=== PATIENT | male | born 1950 | race American Indian/Alaskan Native ===

== ENCOUNTER 2020-10-23 12:23 | Inpatient (IN) | payer MEDICARE ==
[2020-10-23] MEDS ORDERED: ASPIRIN 81 MG TAB CHEW PO ONE (13:13)
--- NOTE | 2020-10-23 13:18 | Event Note ---
ED Screening Note Date of service: 10/23/20 Time: 13:15 ED Screening Note: 70-year-old male patient with history of hypertension presents to the emergency department with complaints of chest pain for 2 days with associated dyspnea this morning followed by a syncopal episode. Patient states the chest pain is intermittent, lasts for few minutes at a time, and does not seem related to exertion. Patient called his primary care provider this morning, who recommended he come to the emergency department for further evaluation. General: Awake, appropriately interactive, no acute distress. Neck: Supple. Full range of motion intact. Cardiovascular: Normal peripheral perfusion. Pulmonary: No respiratory distress. Patient is speaking normally without use of accessory muscles. Skin: No apparent rashes or lesions. Neurological: No facial asymmetry. Speech is clear. Follows commands. Patient is alert and oriented. Musculoskeletal: Moves all four extremities spontaneously with normal range of motion. Psych: Cooperative. Appropriate mood and affect. Abnormal EKG without prior tracing for comparison -- cardiac work-up initiated I have greeted and performed a focused rapid initial assessment of this patient. A comprehensive ED assessment and evaluation of the patient, analysis of all test results, and completion of the medical decision-making process will be conducted by additional ED providers. This initial assessment/diagnostic orders/clinical plan/treatment(s) is/are subject to change based on patients health status, clinical progression and re-assessment. Further treatment and workup at subsequent clinical provider's discretion. Patient/guardian urged not to elope from the ED as their condition may be serious if not clinically assessed and managed.
--- NOTE | 2020-10-23 13:40 | XRay Report ---
CHEST 2 VIEWS INDICATION / CLINICAL INFORMATION: chest pain. COMPARISON: None available. FINDINGS: SUPPORT DEVICES: None. HEART / MEDIASTINUM: No significant abnormality. LUNGS / PLEURA: Diffuse bilateral pulmonary opacities are noted. Bilateral effusions right greater th an left No pneumothorax. Signer Name: Brett Hicks MD Signed: 10/23/2020 1:35 PM Workstation Name: [id number]
[2020-10-23 14:20] LABS: Basophils % (Auto) 0.7 % (0.0-1.8); Eosinophils # (Auto) 0.1 K/mm3 (0.0-0.4); Eosinophils % (Auto) 1.6 % (0.0-4.3); Hematocrit 42.7 % (35.5-45.6); Hemoglobin 14.3 gm/dl (11.8-15.2); Lymphocytes # (Auto) 1.5 K/mm3 (1.2-5.4); Lymphocytes % (Auto) 27.8 % (13.4-35.0); Mean Corpuscular HGB Conc 34 % (32-34); Mean Corpuscular Volume 85 fl (84-94); Monocytes # (Auto) 0.3 K/mm3 (0.0-0.8); Platelet Count 237 K/mm3 (140-440); Red Cell Distribution Width 13.8 % (13.2-15.2)
[2020-10-23 14:30] LABS: INR 1.01 (0.87-1.13)
[2020-10-23 14:31] LABS: Partial Thromboplastin Time 29.9 Sec. (24.2-36.6)
[2020-10-23 14:32] LABS: Alanine Aminotransferase 13 units/L (7-56); Albumin 4.1 g/dL (3.9-5); BUN/Creatinine Ratio 12; Blood Urea Nitrogen 14 mg/dL (9-20); Calcium 9.3 mg/dL (8.4-10.2); Hemolysis Index 4
--- NOTE | 2020-10-23 17:27 | Cat Scan Report ---
CT HEAD WITHOUT CONTRAST INDICATION / CLINICAL INFORMATION: CODE STROKE PROTOCOL!! Pt complains of RT sided weakness. TECHNIQUE: All CT scans at this location are performed using CT dose reduction for ALARA by means of automated e xposure control. COMPARISON: None available. FINDINGS: There is no acute intracranial hemorrhage. Ventricles are normal in size without midline shift or mas s effect. There is some periventricular areas of low-attenuation most significant surrounding the occ ipital horns right greater than left however nonspecific and of uncertain age. ADDITIONAL FINDINGS: None. IMPRESSION: 1. No acute findings are definitely seen. There are periventricular areas of low-attenuation suggesti ng nonspecific white matter change. There is concern for acute ischemic change MRI with diffusion cou ld be performed. CODE STROKE: Time of Communication (ASH KIER BOILER/CDT): 420 Licensed Practitioner Receiving Report: Dr Calderon Signer Name: Brett Hicks MD Signed: 10/23/2020 5:23 PM Workstation Name: [id number]
[2020-10-23] MEDS ORDERED: FUROSEMIDE 40 MG/4 ML INJ IV ONE ×2 (18:09→21:30)
[2020-10-23] MEDS ORDERED: IPRATROPIUM 0.02% NEBU 2.5 ML IH ONE ×2 (18:10→20:25)
[2020-10-23] MEDS ORDERED: ALBUTEROL 2.5 MG/3 ML NEBU IH ONE ×2 (18:10→20:25)
--- NOTE | 2020-10-23 18:33 | Emergency Department Report ---
ED Neuro Deficit HPI - General Chief Complaint: Chest Pain Stated Complaint: CHEST PAIN Time Seen by Provider: 10/23/20 17:23 Source: patient Mode of arrival: Wheelchair Limitations: No Limitations - History of Present Illness Initial Comments: Chief complaint: Chest pain, confusion, lack of coordination HPI: This is a 70-year-old male with history of hypertension, thyroid disease who presents with confusion, chest pain, inability to walk. I spoke with son because patient is currently quite confused. Son explains that "normally he is within his faculties" today patient seemingly was able to drive to his primary care physician's office. He returned home. Son noted that he was unable to walk without assistance. He appeared confused. Normally he is active and quite healthy. Patient informed provider triage that he has had chest pain intermittently for the last 2 days. Patient does not recall this conversation. He does not answer questions appropriately. Provider triage also documented syncopal episode. Medications: Lisinopril, carvedilol, levothyroxine PCP Dr. 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 He continues to work according to his son. He lives with his son. Patient does not smoke tobacco. Does not drink alcohol. Upon clarification with son, patient returned from PCP's office approximately around 1030. Son noticed that patient was confused and unable to walk around 1045. Unknown time of onset of patient's symptoms. -: This morning, unknown Location: speech, right face, right arm, right leg, altered History of same: Yes Severity: severe Improves With: none Worsens With: none On Anticoagulants: No Context: sudden onset Associated Symptoms: chest pain - Related Data Allergies/Adverse Reactions: Allergies Allergy/AdvReac Type Severity Reaction Status Date / Time No Known Allergies Allergy Unverified 10/23/20 12:44 ED Review of Systems ROS: Stated complaint: CHEST PAIN Other details as noted in HPI Comment: Unobtainable due to pts medical conditions Cardiovascular: chest pain, syncope ED Past Medical Hx - Past Medical History Previous Medical History?: Yes Hx Hypertension: Yes Additional medical history: Thyroid disease - Surgical History Past Surgical History?: Yes Additional Surgical History: thyroid removed - Family History Family history: hypertension - Social History Smoking Status: Never Smoker Substance Use Type: None ED Neuro Physical Exam - General Limitations: No Limitations General appearance: alert, in no apparent distress Suspected Stroke: Yes - Head Head exam: Present: atraumatic, normocephalic - Eye Eye exam: Present: normal appearance - ENT ENT exam: Present: mucous membranes moist - Neck Neck exam: Present: normal inspection, full ROM - Respiratory Respiratory exam: Present: wheezes, rales. Absent: rhonchi - Cardiovascular Cardiovascular Exam: Present: regular rate, normal rhythm, normal heart sounds. Absent: systolic murmur, diastolic murmur, rubs, gallop - GI/Abdominal GI/Abdominal exam: Present: soft, normal bowel sounds. Absent: distended, tenderness, guarding, rebound - Rectal Rectal exam: Present: deferred - Extremities Exam Extremities exam: Present: normal inspection - Neurological Exam Neurological exam: Present: altered - NIHSS Assessment Interval: Baseline 1a. Level of Consciousness: arousable/minor stimuli 1b. LOC Questions: answers no questions correctly 1c. LOC Commands: performs tasks correctly 2. Best Gaze: normal 3. Visual: no visual loss 4. Facial Palsy: partial paralysis 5b. Motor Arm Right: some gravity effort 5a. Motor Arm Left: no drift 6a. Motor Leg Left: no drift 6b. Motor Leg Right: no gravity effort 7. Limb Ataxia: absent 8. Sensory: mild/moderate sensory loss 9. Best Language: mild/moderate aphasia 10. Dysarthria: mild/moderate dysarthria 11. Extinction/Inattention: no abnormality Total Score: 13 Stroke Severity: Moderate Stroke - Psychiatric Psychiatric exam: Present: flat affect - Skin Skin exam: Present: warm, dry, intact, normal color. Absent: rash ED Course Vital Signs 10/23/20 12:47 Temperature 97.7 F Pulse Rate 82 Respiratory 18 Rate Blood Pressure 168/115 [Right] O2 Sat by Pulse 98 Oximetry - Reevaluation(s) Reevaluation #1: 10/23/20 19:11 Dr. Dela Cruz teleneurologist called again to obtain an update on patient. Dr. Dela Cruz provided his cell phone number in order to be contacted immediately once CT angiogram head neck performed. - Lab Data Result diagrams: 10/23/20 13:32 10/23/20 18:23 Lab Results 10/23/20 10/23/20 10/23/20 Range/Units 13:32 13:32 13:32 WBC 5.4 (4.5-11.0) K/mm3 RBC 5.00 (3.65-5.03) M/mm3 Hgb 14.3 (11.8-15.2) gm/dl Hct 42.7 (35.5-45.6) % MCV 85 (84-94) fl MCH 29 (28-32) pg MCHC 34 (32-34) % RDW 13.8 (13.2-15.2) % Plt Count 237 (140-440) K/mm3 Lymph % (Auto) 27.8 (13.4-35.0) % [place] % (Auto) 6.0 (0.0-7.3) % Eos % (Auto) 1.6 (0.0-4.3) % Baso % (Auto) 0.7 (0.0-1.8) % Lymph # (Auto) 1.5 (1.2-5.4) K/mm3 [place] # (Auto) 0.3 (0.0-0.8) K/mm3 Eos # (Auto) 0.1 (0.0-0.4) K/mm3 Baso # (Auto) 0.0 (0.0-0.1) K/mm3 Seg Neutrophils % 63.9 (40.0-70.0) % Seg Neutrophils # 3.4 (1.8-7.7) K/mm3 PT 13.2 (12.2-14.9) Sec. INR 1.01 (0.87-1.13) APTT 29.9 (24.2-36.6) Sec. D-Dimer (0-234) ng/mlDDU Sodium 145 (137-145) mmol/L Potassium 4.1 (3.6-5.0) mmol/L Chloride 109.1 H (98-107) mmol/L Carbon Dioxide 25 (22-30) mmol/L Anion Gap 15 mmol/L BUN 14 (9-20) mg/dL Creatinine 1.2 (0.8-1.3) mg/dL Estimated GFR > 60 ml/min BUN/Creatinine Ratio 12 % Glucose 95 (75-100) mg/dL POC Glucose (70-105) mg/dL Calcium 9.3 (8.4-10.2) mg/dL Magnesium 2.20 (1.7-2.3) mg/dL Ferritin (30.0-300.0) ng/mL Total Bilirubin 0.80 (0.1-1.2) mg/dL AST 13 (5-40) units/L ALT 13 (7-56) units/L Alkaline Phosphatase 67 (35-129) units/L Lactate Dehydrogenase (91-180) units/L Troponin T 0.019 (0.00-0.029) ng/mL C-Reactive Protein (0.00-1.30) mg/dL NT-Pro-B Natriuret Pep 5806 H (0-900) pg/mL Total Protein 7.3 (6.3-8.2) g/dL Albumin 4.1 (3.9-5) g/dL Albumin/Globulin Ratio 1.3 % TSH (0.270-4.200) mlU/mL 10/23/20 10/23/20 10/23/20 Range/Units 16:39 17:00 18:23 WBC (4.5-11.0) K/mm3 RBC (3.65-5.03) M/mm3 Hgb (11.8-15.2) gm/dl Hct (35.5-45.6) % MCV (84-94) fl MCH (28-32) pg MCHC (32-34) % RDW (13.2-15.2) % Plt Count (140-440) K/mm3 Lymph % (Auto) (13.4-35.0) % [place] % (Auto) (0.0-7.3) % Eos % (Auto) (0.0-4.3) % Baso % (Auto) (0.0-1.8) % Lymph # (Auto) (1.2-5.4) K/mm3 [place] # (Auto) (0.0-0.8) K/mm3 Eos # (Auto) (0.0-0.4) K/mm3 Baso # (Auto) (0.0-0.1) K/mm3 Seg Neutrophils % (40.0-70.0) % Seg Neutrophils # (1.8-7.7) K/mm3 PT (12.2-14.9) Sec. INR (0.87-1.13) APTT (24.2-36.6) Sec. D-Dimer 4139.61 H (0-234) ng/mlDDU Sodium (137-145) mmol/L Potassium (3.6-5.0) mmol/L Chloride (98-107) mmol/L Carbon Dioxide (22-30) mmol/L Anion Gap mmol/L BUN (9-20) mg/dL Creatinine (0.8-1.3) mg/dL Estimated GFR ml/min BUN/Creatinine Ratio % Glucose (75-100) mg/dL POC Glucose 85 (70-105) mg/dL Calcium (8.4-10.2) mg/dL Magnesium (1.7-2.3) mg/dL Ferritin (30.0-300.0) ng/mL Total Bilirubin (0.1-1.2) mg/dL AST (5-40) units/L ALT (7-56) units/L Alkaline Phosphatase (35-129) units/L Lactate Dehydrogenase (91-180) units/L Troponin T 0.026 (0.00-0.029) ng/mL C-Reactive Protein (0.00-1.30) mg/dL NT-Pro-B Natriuret Pep (0-900) pg/mL Total Protein (6.3-8.2) g/dL Albumin (3.9-5) g/dL Albumin/Globulin Ratio % TSH (0.270-4.200) mlU/mL 10/23/20 10/23/20 10/23/20 Range/Units 18:23 18:23 18:23 WBC (4.5-11.0) K/mm3 RBC (3.65-5.03) M/mm3 Hgb (11.8-15.2) gm/dl Hct (35.5-45.6) % MCV (84-94) fl MCH (28-32) pg MCHC (32-34) % RDW (13.2-15.2) % Plt Count (140-440) K/mm3 Lymph % (Auto) (13.4-35.0) % [place] % (Auto) (0.0-7.3) % Eos % (Auto) (0.0-4.3) % Baso % (Auto) (0.0-1.8) % Lymph # (Auto) (1.2-5.4) K/mm3 [place] # (Auto) (0.0-0.8) K/mm3 Eos # (Auto) (0.0-0.4) K/mm3 Baso # (Auto) (0.0-0.1) K/mm3 Seg Neutrophils % (40.0-70.0) % Seg Neutrophils # (1.8-7.7) K/mm3 PT (12.2-14.9) Sec. INR (0.87-1.13) APTT (24.2-36.6) Sec. D-Dimer (0-234) ng/mlDDU Sodium (137-145) mmol/L Potassium (3.6-5.0) mmol/L Chloride (98-107) mmol/L Carbon Dioxide (22-30) mmol/L Anion Gap mmol/L BUN (9-20) mg/dL Creatinine (0.8-1.3) mg/dL Estimated GFR ml/min BUN/Creatinine Ratio % Glucose 84 (75-100) mg/dL POC Glucose (70-105) mg/dL Calcium (8.4-10.2) mg/dL Magnesium (1.7-2.3) mg/dL Ferritin 238.5 (30.0-300.0) ng/mL Total Bilirubin (0.1-1.2) mg/dL AST (5-40) units/L ALT (7-56) units/L Alkaline Phosphatase (35-129) units/L Lactate Dehydrogenase 334 H (91-180) units/L Troponin T (0.00-0.029) ng/mL C-Reactive Protein 2.50 H (0.00-1.30) mg/dL NT-Pro-B Natriuret Pep (0-900) pg/mL Total Protein (6.3-8.2) g/dL Albumin (3.9-5) g/dL Albumin/Globulin Ratio % TSH 7.100 H (0.270-4.200) mlU/mL - EKG Data EKG shows normal: sinus rhythm, axis Rate: normal Interpretation: nonspecific ST-T wave [place] 10/23/20 18:45 EKG obtained [address] Normal sinus rhythm rate 75 bpm normal axis left bundle branch block no ST elevation nonspecific T wave pattern - Radiology Data Radiology results: report reviewed Patient Name: CORI PA Gender: Male Date of : 1950 Referring Provider: JUMA GROSSMAN Organization: [facility] Accession Number: [id number] Requested Date: October 23, 2020 18:14 Report Status: Final Requested Procedure: 1 Procedure Description: CT angio neck Modality: CT Findings Reporting MD: Ranjan Pinto Dictation Time: October 23, 2020 18:45 Take Away Attendant: Not available Commis Chef Date: CTA neck without and with intravenous contrast material CLINICAL HISTORY: right sided weakness TECHNIQUE: Following acquisition of a timing bolus 0.625 mm thick contiguous axial scans were obtained from aortic arch to the skull base during rapid bolus intravenous contrast infusion. In addition to evaluation of axial s ource images multiplanar reconstructions were produced and reviewed for this report. 3 plane MIP reconstructions were produced and reviewed. Contrast dose report: Omnipaque 350: 80 ml, administered intravenously All CT examinations performed at this facility utilize modulated dose reduction, iterative reconstruction or weight-based dosing, as appropriate, to obtain a radiation dose which is as low as can reasonably be achieved. FINDINGS: Thoracic aorta:No abnormalities are identified along the course of the thoracic aorta..The origins of the great vessels have an unremarkable appearance. Brachiocephalic artery, left common carotid artery origin and left subclavian artery all have an unremarkable appearance. Right carotid artery:No abnormalities are seen along the course of the RCCA, at the right carotid bifurcation or along the cervical portions of the BANDAR. Left carotid artery: No abnormalities are noted along the course of the left common carotid artery, at the left carotid bifurcation or along the course of the cervical segments of the LICA. Posterior circulation:The vertebral arteries have an unremarkable appearance. Both vertebral arteries contribute to the basilar artery origin. The basilar artery has an unremarkable appearance. The degree of stenosis, if any, is determined utilizing NASCET like criteria. In this case there is no indication of hemodynamically significant stenosis at the carotid bifurcations or elsewhere. Right larger than left pleural effusions are demonstrated. Evaluation of the nonvascular soft tissue structures reveal no additional abnor mality. There is no indication of cervical lymphadenopathy. No abnormalities are seen along the course of the airway. Visualized portions of the parotid glands and the submandibular salivary glands have a normal appearance. Thyroid gland has a normal appearance. Evaluation of the lung apices reveals no evidence of lung nodule or infiltrate. [facility] [address], [address] [place] [address] P [phone] F [phone] - Report exported on SatOctober 23, 2020 18:50:53 -1209 - Page 2 of 2 Evaluation of the cervical spine is remarkable for evidence of remote ACDF at C5-6 and C6-7 levels. Multifocal neuroforaminal narrowing is noted. Mild central canal stenosis is evident at the C5-6 level. IMPRESSION: 1. No indication of hemodynamically significant stenosis at the carotid bifurcations or elsewhere. Signer Name: Ranjan Pinto MD Signed: 10/23/2020 6:45 PM Workstation Name: [id number] - Medical Decision Making Acute CVA: Teleneurologist NIHSS 16 patient does not meet the window for thrombolysis. Stat CT angiogram of the head and neck ordered as well as CT of the chest considering chest pain and syncope. According to CT angiogram head and neck there is no evidence of large vessel occlusion. Patient will be admitted to our hospital. New onset CHF: Furosemide therapy initiated emergency department, conservative blood pressure control considering acute CVA. Critical Care Time: Yes Critical care time in (mins) excluding proc time.: 40 Critical care attestation.: If time is entered above; I have spent that time in minutes in the direct care of this critically ill patient, excluding procedure time. 40 minutes of critical care time excluding procedures were used in the care of the patient. I was informed by nurse that patient originally presented with chest pain. However triage nurse noted that patient walked with a limp. She also noticed facial droop. I came immediately to the bedside upon patient's arr ival. I asked nurse to activate code stroke. I spoke with radiologist Dr. Goodwin who did not detect acute hemorrhage on CT scan or overt abnormality. I spoke with Dr. Dela Cruz teleneurologist who agreed that patient does not meet criteria for thrombolysis. I spoke with CT department parts technician in order to expedite CT of the head neck chest. I discussed treatment plan with the nursing team members. I reviewed electronic record. I spoke extensively with son per phone. Patient required multiple interventions and reassessments. ED Disposition Clinical Impression: Acute CVA (cerebrovascular accident), Acute heart failure Disposition: OP ADMIT IP TO THIS HOSP Is pt being admited?: Yes Does the pt Need Aspirin: Yes Condition: Fair
[2020-10-23 19:10] LABS: C-Reactive Protein 2.5 mg/dL (0.00-1.30)
--- NOTE | 2020-10-23 19:49 | Cat Scan Report ---
CTA neck without and with intravenous contrast material CLINICAL HISTORY: right sided weakness TECHNIQUE: Following acquisition of a timing bolus 0.625 mm thick contiguous axial scans were obtained from aort ic arch to the skull base during rapid bolus intravenous contrast infusion. In addition to evaluation of axial source images multiplanar reconstructions were produced and reviewed for this report. 3 jorge ne MIP reconstructions were produced and reviewed. Contrast dose report: Omnipaque 350: 80 ml, administered intravenously All CT examinations performed at this facility utilize modulated dose reduction, iterative reconstruc tion or weight-based dosing, as appropriate, to obtain a radiation dose which is as low as can reason ably be achieved. FINDINGS: Thoracic aorta:No abnormalities are identified along the course of the thoracic aorta..The origins of the great vessels have an unremarkable appearance. Brachiocephalic artery, left common carotid arter y origin and left subclavian artery all have an unremarkable appearance. Right carotid artery:No abnormalities are seen along the course of the RCCA, at the right carotid bif urcation or along the cervical portions of the BANDAR. Left carotid artery: No abnormalities are noted along the course of the left common carotid artery, a t the left carotid bifurcation or along the course of the cervical segments of the LICA. Posterior circulation:The vertebral arteries have an unremarkable appearance. Both vertebral arteries contribute to the basilar artery origin. The basilar artery has an unremarkable appearance. The degree of stenosis, if any, is determined utilizing NASCET like criteria. In this case there is no indication of hemodynamically significant stenosis at the carotid bifurcations or elsewhere. Right larger than left pleural effusions are demonstrated. Evaluation of the nonvascular soft tissue structures reveal no additional abnormality. There is no in dication of cervical lymphadenopathy. No abnormalities are seen along the course of the airway. Visua lized portions of the parotid glands and the submandibular salivary glands have a normal appearance. Thyroid gland has a normal appearance. Evaluation of the lung apices reveals no evidence of lung nodu le or infiltrate. Evaluation of the cervical spine is remarkable for evidence of remote ACDF at C5-6 and C6-7 levels. M ultifocal neuroforaminal narrowing is noted. Mild central canal stenosis is evident at the C5-6 level . IMPRESSION: 1. No indication of hemodynamically significant stenosis at the carotid bifurcations or elsewhere. Signer Name: Ranjan Pinto MD Signed: 10/23/2020 7:45 PM Workstation Name: [id number]
--- NOTE | 2020-10-23 19:50 | Cat Scan Report ---
CT angio chest INDICATION: chest pain dyspnea. TECHNIQUE: All CT scans at this location are performed using CT dose reduction for ALARA by means of automated e xposure control. 3 plane MIP and 3-D reconstructions were produced. COMPARISON: None available. FINDINGS: Very small pericardial effusion, with mild cardiomegaly. Mediastinum, alondra and axillae are otherwise negative. Small bilateral pleural effusions, with diffuse interstitial disease, probably interstitial edema. No evidence of pulmonary embolus IMPRESSION: 1. Findings suggest mild congestive failure. 2. Negative for pulmonary embolus. Signer Name: Yan Horner MD Signed: 10/23/2020 7:46 PM Workstation Name: [id number]
--- NOTE | 2020-10-23 19:55 | Cat Scan Report ---
CTA head with intravenous contrast CLINICAL HISTORY: right sided weakness TECHNIQUE: 0.625 mm thick contiguous axial scans were obtained from the skull base to the skull vertex during r apid bolus administration of intravenous contrast material. Multiplanar reconstructions were produced in the coronal and sagittal planes. In addition 3 plane MIP instructions were produced and reviewed for this report. The axial source images and reconstructed images were reviewed for this report. CONTRAST DOSE REPORT: Omnipaque 350: 80 ml administered intravenously. All CT scans at this location are performed using CT dose reduction for ALARA by means of automated e xposure control. FINDINGS: Internal carotid arteries:Lucien, cavernous, opthalmic, clinoid and supraclinoid segments of the ICAs have an unremarkable appearance. Middle cerebral arteries:Normal and symmetrical M1 segments of the middle cerebral arteries are demon strated. No abnormalities are seen on evaluation of the insular or opercular branches. Anterior cerebral arteries:Bilaterally symmetrical A1 segments are demonstrated. No abnormalities are seen along the course of the A2 segments or their visualized pericallosal branches. Vertebral arteries:Bilaterally symmetrical vertebral arteries are demonstrated. Both vertebral arteri es contribute to the basilar artery origin. Basilar artery:Basilar artery has an unremarkable appearance. Posterior cerebral arteries: Bilaterally symmetrical posterior cerebral arteries are identified. Dural sinuses: Dural venous sinuses are well demonstrated on this exam. There is no evidence of dural sinus thrombosis. IMPRESSION: No indication of intercranial stenosis or large vessel occlusion. Signer Name: Ranjan Pinto MD Signed: 10/23/2020 7:51 PM Workstation Name: [id number]
[2020-10-23] MEDS ORDERED: METOCLOPRAMIDE 10 MG TAB PO PRN (20:00)
[2020-10-23] MEDS ORDERED: ACETAMINOPHEN 325 MG TAB PO PRN (20:00)
[2020-10-23] MEDS ORDERED: PROMETHAZINE 25 MG RECT SUPP PR PRN (20:00)
--- NOTE | 2020-10-23 20:00 | History and Physical Report ---
History of Present Illness Chief complaint: He is really confused and not acting like himself History of present illness: 70 YO Male with HTN, Hypothyroidism presents to ED for evaluation. Patient is confused with diminished cognition and is unable to provide history at the time my evaluation. Patient history provided by EMS staff, ED staff, as well as the patient's son who is available by telephone and provides history. As per son the patient had experienced increased confusion and increased weakness over the past 2 days with progressively worsening symptoms over the same timeframe. Patient son acknowledges decreased exercise tolerance, shortness of breath on exertion, increased bedbound status, and decreased oral intake. Patient transported to [facility] via private vehicle for further care and evaluation of this aforementioned symptoms. The patient was seen and evaluated in the emergency department. All lab and imaging studies reviewed. The patient was found to have a neurologic deficits and clinical symptoms consistent with CVA. A code stroke was Called upon arrival to the ED. The patient was initiated on CVA protocol. Teleneurology was consulted. Patient also found to have clinical symptoms consistent with CHF as well as bilateral pneumonia. The patient was also found to have a pulse oximetry of 89% on room air which is consistent with acute hypoxemic respiratory failure. The patient was treated with supplemental oxygen with improvement in symptoms. Patient admitted to medical floor and initiated on coronavirus protocol, pneumonia protocol, as well as CHF protocol. Cardiology team consulted in ED. No further history is obtainable. Patient has diminished cognition at the time of my evaluation but has a positive gag reflex and is able to protect his airway without difficulty. Advanced care planning conducted in ED. Past History Past Medical History: hypertension, hypothyroidism, other (See HPI) Past Surgical History: thyroidectomy Social history: single. denies: smoking, alcohol abuse Family history: hypertension Medications and Allergies Allergies Allergy/AdvReac Type Severity Reaction Status Date / Time No Known Allergies Allergy Unverified 10/23/20 12:44 Review of Systems ROS unobtainable: due to mental status Exam - Constitutional Vitals: Temp Pulse Resp BP Pulse Ox 97.7 F 82 18 168/115 98 10/23/20 12:47 10/23/20 12:47 10/23/20 12:47 10/23/20 12:47 10/23/20 12:47 General appearance: Present: mild distress - EENT Eyes: Present: PERRL ENT: hearing decreased - Neck Neck: Present: supple, normal ROM - Respiratory Respiratory effort: labored, accessory muscle use, stridor Respiratory: bilateral: diminished, rales, rhonchi - Cardiovascular Heart Sounds: Present: S1 & S2. Absent: rub, click - Extremities Extremities: pulses symmetrical Extremity abnormal: edema Peripheral Pulses: within normal limits - Abdominal General gastrointestinal: Present: soft, non-tender, non-distended, normal bowel sounds Male genitourinary: Present: normal - Integumentary Integumentary: Present: dry, clammy - Musculoskeletal Musculoskeletal: generalized weakness - Psychiatric Psychiatric: no appropriate mood/affect, no intact judgment & insight, no memory intact - Neurologic Neurologic: CNII-XII intact, no focal deficits, moves all extremities, no gait normal HEART Score - HEART Score Troponin: Troponin T 0.026 ng/mL (0.00-0.029) 10/23/20 16:39 Results - Labs CBC & Chem 7: 10/23/20 13:32 10/23/20 18:23 Labs: Abnormal lab results 10/23/20 10/23/20 10/23/20 Range/Units 13:32 18:23 18:23 D-Dimer 4139.61 H (0-234) ng/mlDDU Chloride 109.1 H (98-107) mmol/L Lactate Dehydrogenase 334 H (91-180) units/L C-Reactive Protein 2.50 H (0.00-1.30) mg/dL NT-Pro-B Natriuret Pep 5806 H (0-900) pg/mL TSH (0.270-4.200) mlU/mL 10/23/20 Range/Units 18:23 D-Dimer (0-234) ng/mlDDU Chloride (98-107) mmol/L Lactate Dehydrogenase (91-180) units/L C-Reactive Protein (0.00-1.30) mg/dL NT-Pro-B Natriuret Pep (0-900) pg/mL TSH 7.100 H (0.270-4.200) mlU/mL Assessment and Plan - Patient Problems (1) CHF (congestive heart failure) Current Visit: Yes Status: Acute Qualifiers: Heart failure type: systolic Heart failure chronicity: acute Qualified Code(s): I50.21 - Acute systolic (congestive) heart failure Plan to address problem: CHF protocol: Chest x-ray, BNP, strict I's/O, monitor urine output every shift, daily weight, afterload reduction, blood pressure control, echocardiogram ordered and is pending at time of admission, cardiology team consulted, thyroid panel, magnesium level. (2) Acute CVA (cerebrovascular accident) Current Visit: Yes Status: Suspected Plan to address problem: CVA protocol: Teleneurology consulted, CTA, neuro check, seizure precautions, aspiration precautions, physical therapy consulted, Occupational Therapy consulted, speech therapy consulted, echocardiogram, carotid Doppler, antiplatelet therapy, lipid panel, statin therapy. (3) Pneumonia Current Visit: Yes Status: Acute Plan to address problem: Pneumonia protocol: Chest x-ray, CBC, CMP, IV antibiotic therapy, supplemental oxygen, pulse oximetry, nebulizer therapy, blood culture. (4) Suspected 2019 novel coronavirus infection Current Visit: Yes Status: Acute Plan to address problem: Coronavirus protocol: Contact precaution, isolation precautions, IV antibiotic therapy, IV steroid therapy, vitamin C therapy, vitamin D therapy, zinc therapy, prophylactic anticoagulation. (5) Acute hypoxemic respiratory failure Current Visit: Yes Status: Acute Plan to address problem: Supplemental oxygen, pulse oximetry, nebulizer therapy, noninvasive positive pressure ventilation as clinical indicated, supportive care. Pulmonary toilet. (6) DVT prophylaxis Current Visit: Yes Status: Acute Plan to address problem: SCD to bilateral lower extremities while in bed, prophylactic anticoagulation (7) Advance care planning Current Visit: Yes Status: Acute Plan to address problem: Disease education conducted, care plan discussed, diagnoses discussed, prognosis discussed, patient is full code, patient son knowledges understanding and agreement with care plan, +30 minutes.
--- NOTE | 2020-10-23 20:24 | Consultation ---
Medications and Allergies Allergies Allergy/AdvReac Type Severity Reaction Status Date / Time No Known Allergies Allergy Unverified 10/23/20 12:44 Active Meds: Active Medications Acetaminophen (Acetaminophen 325 Mg Tab) 650 mg PO Q4H PRN PRN Reason: Pain, Mild (1-3) Ascorbic Acid (Ascorbic Acid 500 Mg Tab) 500 mg PO BID [facility] Aspirin (Aspirin 325 Mg Tab) 325 mg PO QDAY [facility] Atorvastatin Calcium (Atorvastatin 40 Mg Tab) 40 mg PO QHS LAEX Bisacodyl (Bisacodyl 10 Mg Rect Supp) 10 mg [place] QDAY PRN PRN Reason: Constipation Cholecalciferol (Cholecalciferol (Vit D3) 1000 Unit (25 Mcg) Tab) 1,000 unit PO QDAY ALEX Furosemide (Furosemide 20 Mg/2 Ml Inj) 20 mg IV BID@0600,1800 [facility] Heparin Sodium (Porcine) (Heparin 5,000 Unit/1 Ml Vial) 5,000 unit SUB-Q Q12HR [facility] Magnesium Hydroxide (Magnesium Hydroxide (Mom) Oral Liqd Udc) 30 ml PO Q4H PRN PRN Reason: Constipation Methylprednisolone Sodium Succinate (Methylprednisolone Sod Succinate 40 Mg/1 Ml Inj) 40 mg IV Q8HR ALEX Metoclopramide HCl (Metoclopramide 10 Mg Tab) 10 mg PO Q6H PRN PRN Reason: Nausea And Vomiting Ondansetron HCl (Ondansetron 4 Mg/2 Ml Inj) 4 mg IV Q8H PRN PRN Reason: Nausea And Vomiting Promethazine HCl (Promethazine 25 Mg Rect Supp) 25 mg [place] Q6H PRN PRN Reason: Nausea And Vomiting Sodium Chloride (Sodium Chloride 0.9% 10 Ml Flush Syringe) 10 ml IV PRN PRN PRN Reason: LINE FLUSH Zinc Sulfate (Zinc Sulfate 220 Mg Cap) 220 mg PO BID [facility] Physical Examination - Vital Signs Vital Signs: Vital Signs Temp Pulse Resp BP Pulse Ox 97.7 F 82 18 168/115 98 10/23/20 12:47 10/23/20 12:47 10/23/20 12:47 10/23/20 12:47 10/23/20 12:47 Results - Laboratory Findings CBC and BMP: 10/23/20 13:32 10/23/20 18:23 Abnormal Lab Findings: Abnormal Labs 10/23/20 10/23/20 10/23/20 13:32 18:23 18:23 D-Dimer 4139.61 H Chloride 109.1 H Lactate Dehydrogenase 334 H C-Reactive Protein 2.50 H NT-Pro-B Natriuret Pep 5806 H TSH 10/23/20 18:23 D-Dimer Chloride Lactate Dehydrogenase C-Reactive Protein NT-Pro-B Natriuret Pep TSH 7.100 H Assessment and Plan [facility] Consult Note # Demographics Consult Type: Acute Stroke Level 1 (0-4.5 hrs) Patient Location: Emergency Room First Name: Jalen Last Name: Nilson Date of : 1950 Age: 70 Gender: Male Time of Initial Page ( Time): 10/23/2020, 18:09 Time of Return Call ( Time): 10/23/2020, 18:09 # HPI History: 70 yo man with right-sided weakness and difficulty getting words out. Exact time of onset unclear. # Scores Time of exam and NIHSS (): 10/23/2020, 18:29 Level of Consciousness 1a: [0] = Alert; keenly responsive LOC Questions 1b: [2] = Answers neither correctly LOC Commands 1c: [2] = Performs neither correctly Best Gaze 2: [0] = Normal Visual 3: [0] = No visual loss Facial Palsy 4: [1] = Minor paralysis Motor Arm Left 5a: [0] = No drift Motor Arm Right 5b: [3] = No effort against gravity Motor Leg Left 6a: [0] = No drift Motor Leg Right 6b: [3] = No effort against gravity Sensory 8: [0] = Normal Best Language 9: [2] = Severe aphasia Dysarthria 10: [2] = Severe dysarthria Extinction and Inattention 11: [1] = Visual, tactile, auditory, spatial, or personal inattention NIHSS Total: 16 # Exam SBP: 172 DBP: 109 # Data Head CT: no bleed CTA Head: no large vessel occlusion, per radiologist read # Assessment Impression: Aphasia and right-sided weakness, time of onset unclear, medical history unclear. Is not a candidate for IV tpa. CTA without evidence of LVO # Plan Thrombolytic/Intervention: NOT IV Thrombolytic or IA Intervention Thrombolytic Exclusion (< 3 hour window): time of onset unclear Intraarterial Exclusion: no large vessel occlusion (LVO) Target Blood Pressure: SBP < 220 Labs: hemoglobin A1c, lipid panel Imaging: (urgency: routine admission): MRI Brain without contrast Therapy/Evaluation: NPO until swallow evaluation, PT/OT evaluation, speech/swallow consultation Medication: aspirin 81 mg daily DVT Prophylaxis: SCD Other: LDL < 70, permissive hypertension, telemetry monitoring, I have discussed my recommendations with the referring provider Disposition: admit
[2020-10-23 22:25] LABS: Free T4 (Free Thyroxine) 1.33 ng/dL (0.76-1.46)
[2020-10-24] MEDS: ASCORBIC ACID 500 MG TAB PO SCH ×3 (00:11→22:37)
[2020-10-24] MEDS: ZINC SULFATE 220 MG CAP PO SCH ×3 (00:11→22:37)
[2020-10-24] MEDS: cefTRIAXone/NS 2 GM/100 ML 2 GM/100 ML BAG IV SCH ×2 (00:12→22:37)
[2020-10-24] MEDS: AZITHROMYCIN/NS 500 MG/250 ML 500 MG/250 ML BAG IV SCH ×2 (00:12→22:35)
[2020-10-24] MEDS: HEPARIN 5,000 UNIT/1 ML VIAL SUB-Q SCH ×3 (00:12→22:36)
[2020-10-24] MEDS: methylPREDNISolone Sod Succinate 40 MG/1 ML INJ IV SCH ×4 (00:12→22:35)
[2020-10-24] MEDS ORDERED: FUROSEMIDE 20 MG/2 ML INJ IV SCH (06:00)
--- NOTE | 2020-10-24 08:36 | Progress Note ---
Assessment and Plan Assessment and Plan - Patient Problems (1) Acute CVA (cerebrovascular accident) Current Visit: Yes Status: Suspected Plan to address problem: Acute CVA with right-sided hemiplegia PT OT Neuro consult appreciated (1) CHF (congestive heart failure) Current Visit: Yes Status: Acute Qualifiers: Heart failure type: systolic Heart failure chronicity: acute Qualified Code(s): I50.21 - Acute systolic (congestive) heart failure Plan to address problem: CHF protocol: Chest x-ray, BNP, strict I's/O, monitor urine output every shift, daily weight, afterload reduction, blood pressure control, echocardiogram ordere d and is pending at time of admission, cardiology team consulted, thyroid panel, magnesium level. (3) Pneumonia Current Visit: Yes Status: Acute Plan to address problem: Pneumonia protocol: Chest x-ray, CBC, CMP, IV antibiotic therapy, supplemental oxygen, pulse oximetry, nebulizer therapy, blood culture. (4) Suspected 2019 novel coronavirus infection Current Visit: Yes Status: Acute Plan to address problem: Coronavirus protocol: Contact precaution, isolation precautions, IV antibiotic therapy, IV steroid therapy, vitamin C therapy, vitamin D therapy, zinc therapy, prophylactic anticoagulation. (5) Acute hypoxemic respiratory failure Current Visit: Yes Status: Acute Plan to address problem: Supplemental oxygen, pulse oximetry, nebulizer therapy, noninvasive positive pressure ventilation as clinical indicated, supportive care. Pulmonary toilet. (6) DVT prophylaxis Current Visit: Yes Status: Acute Plan to address problem: SCD to bilateral lower extremities while in bed, prophylactic anticoagulation (7) Advance care planning Current Visit: Yes Status: Acute Plan to address problem: Disease education conducted, care plan discussed, diagnoses discussed, prognosis discussed, patient is full code, patient son knowledges understanding and agreement with care plan, +30 minutes. Subjective Date of service: 10/24/20 Principal diagnosis: Acute CVA with right hemiplegia Interval history: History of present illness: 70 YO Male with HTN, Hypothyroidism presents to ED for evaluation. Patient is confused with diminished cognition and is unable to provide history at the time my evaluation. Patient history provided by EMS staff, ED staff, as well as the patient's son who is available by telephone and provides history. As per son the patient had experienced increased confusion and increased weakness over the past 2 days with progressively worsening symptoms over the same timeframe. Patient son acknowledges decreased exercise tolerance, shortness of breath on exertion, increased bedbound status, and decreased oral intake. Patient transported to [facility] via private vehicle for further care and evaluation of this aforementioned symptoms. The patient was seen and evaluated in the emergency department. All lab and imaging studies reviewed. The patient was found to have a neurologic deficits and clinical symptoms consistent with CVA. A code stroke was Called upon arrival to the ED. The patient was initiated on CVA protocol. Teleneurology was consulted. Patient also found to have clinical symptoms consistent with CHF as well as bilateral pneumonia. The patient was also found to have a pulse oximetry of 89% on room air which is consistent with acute hypoxemic respiratory failure. The patient was treated with supplemental oxygen with improvement in symptoms. Patient admitted to medical floor and initiated on coronavirus protocol, pneumonia protocol, as well as CHF protocol. Cardiology team consulted in ED. No further history is obtainable. Patient has diminished cognition at the time of my evaluation but has a positive gag reflex and is able to protect his airway without difficulty. Advanced care planning conducted in ED. 10/24/2020 Acute CVA with right hemiplegia PT and OT Objective - Constitutional Vitals: Vital Signs - 12hr 10/23/20 10/23/20 10/23/20 21:00 21:15 21:30 Temperature Pulse Rate 74 67 79 Pulse Rate [ 70 Right Brachial] Respiratory 20 20 20 Rate Blood Pressure 154/98 145/97 Blood Pressure 158/95 [Right] O2 Sat by Pulse 97 95 100 Oximetry 10/23/20 10/24/20 10/24/20 22:07 02:30 04:48 Temperature 97.5 F L 98.8 F Pulse Rate 81 64 62 Pulse Rate [ Right Brachial] Respiratory 20 20 Rate Blood Pressure 157/99 Blood Pressure 133/66 [Right] O2 Sat by Pulse 95 4 L 97 Oximetry 10/24/20 06:09 Temperature 98.2 F Pulse Rate 70 Pulse Rate [ Right Brachial] Respiratory 20 Rate Blood Pressure 124/75 Blood Pressure [Right] O2 Sat by Pulse 95 Oximetry General appearance: Present: no acute distress, well-nourished - EENT Eyes: PERRL, EOM intact ENT: hearing intact, clear oral mucosa Ears: bilateral: normal - Neck Neck: supple, normal ROM - Respiratory Respiratory effort: normal Respiratory: bilateral: CTA - Breasts Breasts: normal - Cardiovascular Heart rate: 78 Rhythm: regular Heart Sounds: Present: S1 & S2. Absent: gallop, rub Extremities: pulses intact, No edema, normal color, Full ROM - Gastrointestinal General gastrointestinal: Present: soft, non-tender, non-distended, normal bowel sounds - Genitourinary Male genitourinary: normal - Integumentary Integumentary: clear, warm, dry - Musculoskeletal Musculoskeletal: right sided weakness - Neurologic Neurologic: CNII-XII intact, focal deficits (Right hemiplegia dense) - Psychiatric Psychiatric: memory intact, appropriate mood/affect, intact judgment & insight - Allied health notes Allied health notes reviewed: nursing, case management - Labs CBC & Chem 7: 10/23/20 13:32 10/26/20 05:34 Labs: Abnormal lab results 10/23/20 10/23/20 10/23/20 Range/Units 13:32 18:23 18:23 D-Dimer 4139.61 H (0-234) ng/mlDDU Chloride 109.1 H (98-107) mmol/L Lactate Dehydrogenase 334 H (91-180) units/L C-Reactive Protein 2.50 H (0.00-1.30) mg/dL NT-Pro-B Natriuret Pep 5806 H (0-900) pg/mL TSH (0.270-4.200) mlU/mL 10/23/20 10/23/20 Range/Units 18:23 18:23 D-Dimer (0-234) ng/mlDDU Chloride (98-107) mmol/L Lactate Dehydrogenase (91-180) units/L C-Reactive Protein (0.00-1.30) mg/dL NT-Pro-B Natriuret Pep (0-900) pg/mL TSH 7.100 H 6.540 H (0.270-4.200) mlU/mL HEART Score - HEART Score Troponin: Troponin T 0.026 ng/mL (0.00-0.029) 10/23/20 16:39
--- NOTE | 2020-10-24 10:47 | Consultation ---
History of Present Illness Consult date: 10/24/20 Requesting physician: LALIT PLUNKETT Consult reason: congestive heart failure History of present illness: 70-year-old male laying in the bed cannot understand but difficulty speaking has right-sided weakness patient as per the chart was brought in for 2 days of altered mental status and confusion initial CT of the head was negative at a candidate for TPA EKG does show sinus rhythm left bundle branch block. No overt signs of congestive heart failure even though CAT scan showed mild congestion. Past History Past Medical History: hypertension, hypothyroidism, other (See HPI) Past Surgical History: thyroidectomy Social history: single. denies: smoking, alcohol abuse Family history: hypertension Medications and Allergies Allergies Allergy/AdvReac Type Severity Reaction Status Date / Time No Known Allergies Allergy Unverified 10/23/20 12:44 Active Meds: Active Medications Acetaminophen (Acetaminophen 325 Mg Tab) 650 mg PO Q4H PRN PRN Reason: Pain, Mild (1-3) Ascorbic Acid (Ascorbic Acid 500 Mg Tab) 500 mg PO BID [facility] Last Admin: 10/24/20 00:11 Dose: 500 mg Documented by: Aspirin (Aspirin 325 Mg Tab) 325 mg PO QDAY ALEX Atorvastatin Calcium (Atorvastatin 40 Mg Tab) 40 mg PO QHS ALEX Last Admin: 10/24/20 00:11 Dose: 40 mg Documented by: Bisacodyl (Bisacodyl 10 Mg Rect Supp) 10 mg [place] QDAY PRN PRN Reason: Constipation Cholecalciferol (Cholecalciferol (Vit D3) 1000 Unit (25 Mcg) Tab) 1,000 unit PO QDAY [facility]LEX Heparin Sodium (Porcine) (Heparin 5,000 Unit/1 Ml Vial) 5,000 unit SUB-Q Q12HR ALEX Last Admin: 10/24/20 00:12 Dose: 5,000 unit Documented by: Ceftriaxone Sodium (Rocephin/Ns 2 Gm/100 Ml) 2 gm in 100 mls @ 200 mls/hr IV Q24H ALEX; Protocol Last Admin: 10/24/20 00:12 Dose: 200 mls/hr Documented by: Azithromycin (Zithromax/Ns) 500 mg in 250 mls @ 250 mls/hr IV Q24H ALEX; Protocol Last Admin: 10/24/20 00:12 Dose: 250 mls/hr Documented by: Magnesium Hydroxide (Magnesium Hydroxide (Mom) Oral Liqd Udc) 30 ml PO Q4H PRN PRN Reason: Constipation Methylprednisolone Sodium Succinate (Methylprednisolone Sod Succinate 40 Mg/1 Ml Inj) 40 mg IV Q8HR [facility] Last Admin: 10/24/20 06:16 Dose: 40 mg Documented by: Metoclopramide HCl (Metoclopramide 10 Mg Tab) 10 mg PO Q6H PRN PRN Reason: Nausea And Vomiting Ondansetron HCl (Ondansetron 4 Mg/2 Ml Inj) 4 mg IV Q8H PRN PRN Reason: Nausea And Vomiting Promethazine HCl (Promethazine 25 Mg Rect Supp) 25 mg [place] Q6H PRN PRN Reason: Nausea And Vomiting Sodium Chloride (Sodium Chloride 0.9% 10 Ml Flush Syringe) 10 ml IV PRN PRN PRN Reason: LINE FLUSH Zinc Sulfate (Zinc Sulfate 220 Mg Cap) 220 mg PO BID [facility] Last Admin: 10/24/20 00:11 Dose: 220 mg Documented by: Review of Systems ROS unobtainable: due to mental status (As per the HPI) Physical Examination Vital Signs Temp Pulse Resp BP Pulse Ox 97.7 F 82 18 168/115 98 10/23/20 12:47 10/23/20 12:47 10/23/20 12:47 10/23/20 12:47 10/23/20 12:47 General appearance: no acute distress, well-nourished HEENT: Positive: PERRL, Mucus Membranes Moist Neck: Positive: neck supple, trachea midline Cardiac: Positive: Reg Rate and Rhythm, S1/S2. Negative: Audible Murmur Lungs: Positive: clear to auscultation, Normal Breath Sounds Neuro: Positive: Other (Right-sided weakness aphasic partially) Abdomen: Positive: Soft, Active Bowel Sounds. Negative: Tender, Distended Male genitourinary: Positive: normal Skin: Positive: Clear Incision: Cardiac Cath Site Musculoskeletal: No Pain, Normal Range of Motion Extremities: Present: normal. Absent: edema Results 10/23/20 13:32 10/23/20 18:23 Cardiac Enzymes 10/23/20 10/23/20 Range/Units 13:32 18:23 AST 13 (5-40) units/L Lactate Dehydrogenase 334 H (91-180) units/L Coagulation 10/23/20 Range/Units 13:32 PT 13.2 (12.2-14.9) Sec. INR 1.01 (0.87-1.13) APTT 29.9 (24.2-36.6) Sec. CBC 10/23/20 Range/Units 13:32 WBC 5.4 (4.5-11.0) K/mm3 RBC 5.00 (3.65-5.03) M/mm3 Hgb 14.3 (11.8-15.2) gm/dl Hct 42.7 (35.5-45.6) % Plt Count 237 (140-440) K/mm3 Lymph # (Auto) 1.5 (1.2-5.4) K/mm3 [place] # (Auto) 0.3 (0.0-0.8) K/mm3 Eos # (Auto) 0.1 (0.0-0.4) K/mm3 Baso # (Auto) 0.0 (0.0-0.1) K/mm3 Comprehensive Metabolic Panel 10/23/20 10/23/20 Range/Units 13:32 18:23 Sodium 145 (137-145) mmol/L Potassium 4.1 (3.6-5.0) mmol/L Chloride 109.1 H (98-107) mmol/L Carbon Dioxide 25 (22-30) mmol/L BUN 14 (9-20) mg/dL Creatinine 1.2 (0.8-1.3) mg/dL Glucose 95 84 (75-100) mg/dL Calcium 9.3 (8.4-10.2) mg/dL AST 13 (5-40) units/L ALT 13 (7-56) units/L Alkaline Phosphatase 67 (35-129) units/L Total Protein 7.3 (6.3-8.2) g/dL Albumin 4.1 (3.9-5) g/dL - Imaging and Cardiology Echo: pending EKG interpretations - Telemetry EKG Rhythm: Sinus Rhythm (nsr lbbb) Assessment and Plan 70-year-old male with no overt signs of congestive heart failure at this time suggest echocardiogram patient does have left bundle branch block unclear onset. Stop Lasix. Monitor blood pressure. - Patient Problems (1) LBBB (left bundle branch block) Current Visit: Yes Status: Acute (2) Acute CVA (cerebrovascular accident) Current Visit: Yes Status: Acute (3) Suspected 2019 novel coronavirus infection Current Visit: Yes Status: Acute
[2020-10-24 11:59] LABS: Chol/HDL Ratio 3.02 %
[2020-10-24] MEDS: ASPIRIN 325 MG TAB PO SCH (16:17)
[2020-10-24] MEDS: CHOLECALCIFEROL (VIT D3) 1000 UNIT (25 mcg) TAB PO SCH (16:19)
--- NOTE | 2020-10-24 17:02 | Vascular Lab Report ---
VL carotid duplex BILAT INDICATION / CLINICAL INFORMATION: stroke. COMPARISON: None available. FINDINGS: No significant plaque formation is demonstrated at either bifurcation. Velocity measurements and wave form analysis indicate less than 50% stenosis of each internal carotid artery, according to NASCET cr iteria. Normal antegrade flow is demonstrated in both vertebral arteries. IMPRESSION: 1. No significant stenosis. Signer Name: Yan Horner MD Signed: 10/24/2020 4:57 PM Workstation Name: [id number]
[2020-10-25] MEDS: methylPREDNISolone Sod Succinate 40 MG/1 ML INJ IV SCH ×3 (06:32→22:06)
[2020-10-25] MEDS: ZINC SULFATE 220 MG CAP PO SCH ×2 (10:43→22:06)
[2020-10-25] MEDS: ASPIRIN 325 MG TAB PO SCH (10:43)
[2020-10-25] MEDS: ASCORBIC ACID 500 MG TAB PO SCH ×2 (10:43→22:06)
[2020-10-25] MEDS: CHOLECALCIFEROL (VIT D3) 1000 UNIT (25 mcg) TAB PO SCH (10:43)
--- NOTE | 2020-10-25 11:19 | Progress Note ---
Assessment and Plan Acute CVA Telemetry reviewed sinus rhythm 73 no A. fib overnight Echocardiogram with agitated saline study is pending Carotid ultrasound reviewed no significant findings Neck and head CTA reviewed no acute changes CT head noncontrast reviewed no acute changes or signs of hemorrhage Neuro is following: Recommend permissive hypertension Left bundle branch block Echocardiogram pending 12-lead reviewed no ST segment elevation Elevated D-dimer Further work-up per primary team Covid PUI Covid PCR pending DVT prophylaxis Heparin SQ We will follow This patient was seen in conjunction with Dr Salvador who agrees with this assessment and plan of care. - Patient Problems (1) LBBB (left bundle branch block) Current Visit: Yes Status: Acute (2) Acute CVA (cerebrovascular accident) Current Visit: Yes Status: Acute (3) Suspected 2019 novel coronavirus infection Current Visit: Yes Status: Acute Subjective Date of service: 10/25/20 Principal diagnosis: Chest Pain Interval history: Patient resting comfortably in bed. No shortness of breath or chest pain overnight. Telemetry reviewed: Sinus rhythm 73. No events Objective Last Vital Signs Temp 97.7 F 10/25/20 05:37 Pulse 62 10/25/20 05:37 Resp 18 10/25/20 05:37 BP 136/86 10/25/20 05:37 Pulse Ox 100 10/25/20 05:37 - Physical Examination HEENT: Positive: PERRL, Mucus Membranes Moist Neck: Positive: neck supple, trachea midline Cardiac: Positive: Reg Rate and Rhythm, S1/S2 Lungs: Positive: clear to auscultation, Normal Breath Sounds Neuro: Positive: Other (Right-sided weakness aphasic partially) Abdomen: Positive: Soft, Active Bowel Sounds. Negative: Tender, Distended Skin: Positive: Clear Incision: Cardiac Cath Site Musculoskeletal: No Pain, Normal Range of Motion Extremities: Present: upper extr. pulses, lower extr. pulses. Absent: edema - Labs and Meds Lipids 10/24/20 Range/Units 09:29 Triglycerides 60 (2-149) mg/dL Cholesterol 139 (50-199) mg/dL HDL Cholesterol 46 (40-59) mg/dL Cholesterol/HDL Ratio 3.02 % - Imaging and Cardiology Echo: pending
--- NOTE | 2020-10-25 13:20 | Magnetic Resonance Report ---
MR brain wo con INDICATION / CLINICAL INFORMATION: CVA with R side weakness. TECHNIQUE: Multiplanar, multisequence MR images of the brain were obtained. COMPARISON: CT head October 23. CTA head neck 10/23/2020 FINDINGS: INTRACRANIAL: Patchy areas of restricted diffusion seen within the left frontal, parietal, and insula . Periventricular and centrum semiovale T2 white matter hyperintensities most consistent with sequela of chronic microvascular disease. No hemorrhage. Ventricular caliber is normal. No extra-axial mel ection. No mass. No herniation. ORBITS: No significant abnormality of visualized orbits. SINUSES / MASTOIDS: No significant abnormality of visualized sinuses and mastoid air cells. ADDITIONAL FINDINGS: None. IMPRESSION: 1. Acute infarction in the left middle cerebral artery distribution. No hemorrhagic conversion. Signer Name: Gallito Kapoor MD Signed: 10/25/2020 1:15 PM Workstation Name: [id number]
[2020-10-25] MEDS: HEPARIN 5,000 UNIT/1 ML VIAL SUB-Q SCH ×2 (15:52→22:06)
[2020-10-25] MEDS: AZITHROMYCIN/NS 500 MG/250 ML 500 MG/250 ML BAG IV SCH (22:07)
[2020-10-25] MEDS: cefTRIAXone/NS 2 GM/100 ML 2 GM/100 ML BAG IV SCH (22:07)
[2020-10-26] MEDS: methylPREDNISolone Sod Succinate 40 MG/1 ML INJ IV SCH ×3 (05:18→21:43)
[2020-10-26 06:44] LABS: BUN/Creatinine Ratio 25; Blood Urea Nitrogen 30 mg/dL (9-20); Calcium 8.7 mg/dL (8.4-10.2); Hemolysis Index 4
--- NOTE | 2020-10-26 07:08 | Progress Note ---
Assessment and Plan Assessment and Plan - Patient Problems (1) Acute CVA (cerebrovascular accident) Current Visit: Yes Status: Suspected Plan to address problem: Acute CVA with right-sided hemiplegia PT OT Neuro consult appreciated Brain MRI Acute infarcts on the left cerebral artery distribution No hemorrhagic conversion (1) CHF (congestive heart failure) Current Visit: Yes Status: Acute Qualifiers: Heart failure type: systolic Heart failure chronicity: acute Qualified Code(s): I50.21 - Acute systolic (congestive) heart failure Plan to address problem: LV ejection fraction 35 to 40% Optimize medications (3) Pneumonia Current Visit: Yes Status: Acute Plan to address prob jocelyn: Will DC antibiotics (4) Suspected 2019 novel coronavirus infection Current Visit: Yes Status: Acute Plan to address problem: Covid PCR negative (5) Acute hypoxemic respiratory failure Current Visit: Yes Status: Acute Plan to address problem: Improved (6) DVT prophylaxis Current Visit: Yes Status: Acute Plan to address problem: SCD to bilateral lower extremities while in bed, prophylactic anticoagulation (7)Discharge care planning May be a candidate for acute rehab Acute rehab consult requested Second alternative is subacute rehab Subjective Date of service: 10/25/20 Principal diagnosis: Acute CVA with right hemiplegia Interval history: History of present illness: 70 YO Male with HTN, Hypothyroidism presents to ED for evaluation. Patient is confused with diminished cognition and is unable to provide history at the time my evaluation. Patient history provided by EMS staff, ED staff, as well as the patient's son who is available by telephone and provides history. As per son the patient had experienced increased confusion and increased weakness over the past 2 days with progressively worsening symptoms over the same timeframe. Patient son acknowledges decreased exercise tolerance, shortness of breath on exertion, increased bedbound status, and decreased oral intake. Patient transported to [facility] via private vehicle for further care and evaluation of this aforementioned symptoms. The patient was seen and evaluated in the emergency department. All lab and imaging studies reviewed. The patient was found to have a neurologic deficits and clinical symptoms consistent with CVA. A code stroke was Called upon arrival to the ED. The patient was initiated on CVA protocol. Teleneurology was consulted. Patient also found to have clinical symptoms consistent with CHF as well as bilateral pneumonia. The patient was also found to have a pulse oximetry of 89% on room air which is consistent with acute hypoxemic respiratory failure. The patient was treated with supplemental oxygen with improvement in symptoms. Patient admitted to medical floor and initiated on coronavirus protocol, pneumonia protocol, as well as CHF protocol. Cardiology team consulted in ED. No further history is obtainable. Patient has diminished cognition at the time of my evaluation but has a positive gag reflex and is able to protect his airway without difficulty. Advanced care planning conducted in ED. 10/24/2020 Acute CVA with right hemiplegia PT and OT 10/25/2020 Acute CVA with right hemiplegia Rehab consult requested Ejection fraction is 35 to 40% Objective - Constitutional Vitals: Vital Signs - 12hr 10/25/20 10/25/20 10/26/20 22:00 22:47 05:05 Temperature 97.4 F L 98.3 F Pulse Rate 71 66 Pulse Rate [ 71 From Monitor] Respiratory 20 20 Rate Blood Pressure 132/80 138/85 O2 Sat by Pulse 95 95 98 Oximetry General appearance: Present: no acute distress, well-nourished - EENT Eyes: PERRL, EOM intact ENT: hearing intact, clear oral mucosa Ears: bilateral: normal - Neck Neck: supple, normal ROM - Respiratory Respiratory effort: normal Respiratory: bilateral: CTA - Breasts Breasts: normal - Cardiovascular Rhythm: regular Heart Sounds: Present: S1 & S2. Absent: gallop, rub Extremities: pulses intact, No edema, normal color, Full ROM - Gastrointestinal General gastrointestinal: Present: soft, non-tender, non-distended, normal bowel sounds - Genitourinary Male genitourinary: normal - Integumentary Integumentary: clear, warm, dry - Musculoskeletal Musculoskeletal: right sided weakness - Neurologic Neurologic: focal deficits (Right hemiplegia), moves all extremities - Psychiatric Psychiatric: memory intact, appropriate mood/affect, intact judgment & insight - Allied health notes Allied health notes reviewed: nursing, case management - Labs CBC & Chem 7: 10/23/20 13:32 10/26/20 05:34 Labs: Abnormal lab results 10/26/20 Range/Units 05:34 BUN 30 H (9-20) mg/dL Glucose 120 H (75-100) mg/dL Brain MRI Acute infarcts on the left cerebral artery distribution No hemorrhagic conversion HEART Score - HEART Score Troponin: Troponin T 0.026 ng/mL (0.00-0.029) 10/23/20 16:39
[2020-10-26] MEDS ORDERED: LISINOPRIL 5 MG TAB PO SCH (10:00)
--- NOTE | 2020-10-26 10:03 | Progress Note ---
Assessment and Plan Acute CVA MRI reviewed (10/23/2020): Acute infarction in the left middle cerebral artery distribution. Telemetry reviewed: Sinus rhythm 77 with frequent PVCs. One episode of 6 beat V. tach noted overnight. Echocardiogram reviewed (10/23/2020): LVEF is 35 to 40%. LV is moderately dilated. LV SF is moderately decreased. Borderline LVH. There is hypokinesis of the septal and inferior wall. Moderate to severe hypokinesis of the inferior wall. Moderate hypokinesis of the mid inferoseptal wall. Moderate hypokinesis in the apical septal wall. No VSD is visualized. No ventricle thrombus noted on the study. RV SF is normal. Left and right atrium are mildly dilated. Saline bubble contrast intravenous injection does not demonstrate PFO. Carotid ultrasound reviewed no significant findings Neck and head CTA reviewed no acute changes CT head noncontrast reviewed no acute changes or signs of hemorrhage Neuro is following: Recommend permissive hypertension Cardiomyopathy Echocardiogram reviewed as above EF is 35 to 40%. Patient is on appropriate meds including beta-chang, NAEL inhibitor, statin, ASA. Left bundle branch block Onset date is unknown. 12-lead reviewed no ST segment elevation. Troponins are negative x2. AMI ruled out. Elevated D-dimer Further work-up per primary team Hypothyroidism TSH is noted to be elevated. Management per primary team Covid PUI Covid PCR is negative DVT prophylaxis Heparin SQ We will follow This patient was seen in conjunction with Dr Salvador who agrees with this assessment and plan of care. - Patient Problems (1) LBBB (left bundle branch block) Current Visit: Yes Status: Acute (2) Acute CVA (cerebrovascular accident) Current Visit: Yes Status: Acute (3) Cardiomyopathy Current Visit: Yes Status: Acute (4) Suspected 2019 novel coronavirus infection Current Visit: Yes Status: Acute (5) Hypothyroidism Current Visit: Yes Status: Acute Subjective Date of service: 10/26/20 Principal diagnosis: Chest Pain Interval history: Patient resting comfortably in bed. No shortness of breath or chest pain overnight. Telemetry reviewed: Sinus rhythm 77 with frequent PVCs. One episode of 6 beat V. tach noted overnight. Objective Last Vital Signs Temp 98.3 F 10/26/20 05:05 Pulse 66 10/26/20 05:05 Resp 20 10/26/20 05:05 BP 138/85 10/26/20 05:05 Pulse Ox 98 10/26/20 05:05 - Physical Examination General: No Apparent Distress HEENT: Positive: PERRL, Mucus Membranes Moist Neck: Positive: neck supple, trachea midline Cardiac: Positive: Reg Rate and Rhythm, S1/S2 Lungs: Positive: clear to auscultation, Normal Breath Sounds Neuro: Positive: Other (Right-sided weakness aphasic partially) Abdomen: Positive: Soft, Active Bowel Sounds. Negative: Tender, Distended Skin: Positive: Clear Incision: Cardiac Cath Site Musculoskeletal: No Pain, Normal Range of Motion Extremities: Present: upper extr. pulses, lower extr. pulses. Absent: edema - Labs and Meds Comprehensive Metabolic Panel 10/26/20 Range/Units 05:34 Sodium 139 (137-145) mmol/L Potassium 4.0 (3.6-5.0) mmol/L Chloride 102.3 (98-107) mmol/L Carbon Dioxide 27 (22-30) mmol/L BUN 30 H (9-20) mg/dL Creatinine 1.2 (0.8-1.3) mg/dL Glucose 120 H (75-100) mg/dL Calcium 8.7 (8.4-10.2) mg/dL - Imaging and Cardiology EKG: report reviewed, image reviewed Echo: report reviewed - Telemetry EKG Rhythm: Sinus Rhythm - EKG Sinus rhythms and dysrhythmias: sinus rhythm
--- NOTE | 2020-10-26 10:48 | Progress Note ---
Assessment and Plan Assessment and plan: Acute CVA (cerebrovascular accident) Acute CVA with right-sided hemiplegia At a candidate for TPA, neuro work-up reviewed PT OT, Neuro consult appreciated Acute infarcts on the left cerebral artery distribution No hemorrhagic conversion CHF (congestive heart failure) acute vs acute on chronic LV ejection fraction 35 to 40% Optimize medications, diuretics beta-blockers Input output monitoring, low-sodium diet and fluid restriction --Pneumonia Will DC antibiotics COVID-19 test negative Covid PCR negative Acute hypoxemic respiratory failure Improved, home O2 evaluation prior to discharge DVT prophylaxis SCD to bilateral lower extremities while in bed, prophylactic anticoagulation Discharge care planning May be a candidate for acute rehab Acute rehab consult requested Second alternative is subacute rehab Plan of care reviewed with the patient his nurse and the case management Acute rehab placement, possible discharge in 1 to 2 days if stable Brief history 70 YO Male with HTN, Hypothyroidism presents to ED for evaluation. Patient is confused with diminished cognition and is unable to provide history at the time my evaluation. Patient history provided by EMS staff, ED staff, as well as the patient's son who is available by telephone and provides history. As per son the patient had experienced increased confusion and increased weakness over the past 2 days with progressively worsening symptoms over the same timeframe. Patient son acknowledges decreased exercise tolerance, shortness of breath on exertion, increased bedbound status, and decreased oral intake. Patient transported to [facility] via private vehicle for further care and evaluation of this aforementioned symptoms. The patient was seen and evaluated in the emergency department. All lab and imaging studies reviewed. The patient was found to have a neurologic deficits and clinical symptoms consistent with CVA. A code stroke was Called upon arrival to the ED. The patient was initiated on CVA protocol. Teleneurology was consulted. Patient also found to have clinical symptoms consistent with CHF as well as bilateral pneumonia. The patient was also found to have a pulse oximetry of 89% on room air which is consistent with acute hypoxemic respiratory failure. The patient was treated with supplemental oxygen with improvement in symptoms. Patient admitted to medical floor and initiated on coronavirus protocol, pneumonia protocol, as well as CHF protocol. Cardiology team consulted in ED. No further history is obtainable. Patient has diminished cognition at the time of my evaluation but has a positive gag reflex and is able to protect his airway without difficulty. Advanced care planning conducted in ED. 10/24/2020 Acute CVA with right hemiplegia PT and OT 10/25/2020 Acute CVA with right hemiplegia Rehab consult requested Ejection fraction is 35 to 40% 10/26/2020 patient with acute CVA and right-sided hemiparesis PT evaluated the patient and recommended acute rehab Case management processing the request Possible discharge in 1 to 2 days if stable History Interval history: I have seen and examined the patient bedside patient's chart and medications reviewed Patient is Covid negative, acute CVA with right hemiparesis PT evaluated the patient, recommended acute rehab Case management processing the request Patient feels slightly better Vital signs noted Hospitalist Physical - Constitutional Vitals: Temp Pulse Resp BP Pulse Ox 98.0 F 71 18 138/85 97 10/26/20 10:19 10/26/20 10:19 10/26/20 10:19 10/26/20 05:10/26/20 10:19 General appearance: Present: no acute distress, well-nourished, disheveled, malodorous - EENT Eyes: Present: PERRL, EOM intact ENT: hearing intact, clear oral mucosa - Neck Neck: Present: supple, normal ROM - Respiratory Respiratory effort: normal Respiratory: bilateral: diminished, rhonchi, negative: rales, wheezing - Cardiovascular Rhythm: regular Heart Sounds: Present: S1 & S2 - Extremities Extremities: no ischemia, No edema - Abdominal General gastrointestinal: soft, non-tender, non-distended, normal bowel sounds - Integumentary Integumentary: Present: warm - Psychiatric Psychiatric: appropriate mood/affect, cooperative - Neurologic Neurologic: moves all extremities, other (Right-sided residual weakness) HEART Score - HEART Score Troponin: Troponin T 0.026 ng/mL (0.00-0.029) 10/23/20 16:39 Results - Labs CBC & Chem 7: 10/23/20 13:32 10/26/20 05:34 Labs: Laboratory Last Values WBC 5.4 K/mm3 (4.5-11.0) 10/23/20 13:32 RBC 5.00 M/mm3 (3.65-5.03) 10/23/20 13:32 Hgb 14.3 gm/dl (11.8-15.2) 10/23/20 13:32 Hct 42.7 % (35.5-45.6) 10/23/20 13:32 MCV 85 fl (84-94) 10/23/20 13:32 MCH 29 pg (28-32) 10/23/20 13:32 MCHC 34 % (32-34) 10/23/20 13:32 RDW 13.8 % (13.2-15.2) 10/23/20 13:32 Plt Count 237 K/mm3 (140-440) 10/23/20 13:32 Lymph % (Auto) 27.8 % (13.4-35.0) 10/23/20 13:32 Winkler % (Auto) 6.0 % (0.0-7.3) 10/23/20 13:32 Eos % (Auto) 1.6 % (0.0-4.3) 10/23/20 13:32 Baso % (Auto) 0.7 % (0.0-1.8) 10/23/20 13:32 Lymph # (Auto) 1.5 K/mm3 (1.2-5.4) 10/23/20 13:32 Winkler # (Auto) 0.3 K/mm3 (0.0-0.8) 10/23/20 13:32 Eos # (Auto) 0.1 K/mm3 (0.0-0.4) 10/23/20 13:32 Baso # (Auto) 0.0 K/mm3 (0.0-0.1) 10/23/20 13:32 Seg Neutrophils % 63.9 % (40.0-70.0) 10/23/20 13:32 Seg Neutrophils # 3.4 K/mm3 (1.8-7.7) 10/23/20 13:32 PT 13.2 Sec. (12.2-14.9) 10/23/20 13:32 INR 1.01 (0.87-1.13) 10/23/20 13:32 APTT 29.9 Sec. (24.2-36.6) 10/23/20 13:32 D-Dimer 4139.61 ng/mlDDU (0-234) H 10/23/20 18:23 Sodium 139 mmol/L (137-145) 10/26/20 05:34 Potassium 4.0 mmol/L (3.6-5.0) 10/26/20 05:34 Chloride 102.3 mmol/L (98-107) 10/26/20 05:34 Carbon Dioxide 27 mmol/L (22-30) 10/26/20 05:34 Anion Gap 14 mmol/L 10/26/20 05:34 BUN 30 mg/dL (9-20) H 10/26/20 05:34 Creatinine 1.2 mg/dL (0.8-1.3) 10/26/20 05:34 Estimated GFR > 60 ml/min 10/26/20 05:34 BUN/Creatinine Ratio 25 % 10/26/20 05:34 Glucose 120 mg/dL (75-100) H 10/26/20 05:34 POC Glucose 85 mg/dL (70-105) 10/23/20 17:00 Calcium 8.7 mg/dL (8.4-10.2) 10/26/20 05:34 Magnesium 2.20 mg/dL (1.7-2.3) 10/23/20 20:33 Ferritin 238.5 ng/mL (30.0-300.0) 10/23/20 18:23 Total Bilirubin 0.80 mg/dL (0.1-1.2) 10/23/20 13:32 AST 13 units/L (5-40) 10/23/20 13:32 ALT 13 units/L (7-56) 10/23/20 13:32 Alkaline Phosphatase 67 units/L (35-129) 10/23/20 13:32 Lactate Dehydrogenase 334 units/L (91-180) H 10/23/20 18:23 Troponin T 0.026 ng/mL (0.00-0.029) 10/23/20 16:39 C-Reactive Protein 2.50 mg/dL (0.00-1.30) H 10/23/20 18:23 NT-Pro-B Natriuret Pep 5806 pg/mL (0-900) H 10/23/20 13:32 Total Protein 7.3 g/dL (6.3-8.2) 10/23/20 13:32 Albumin 4.1 g/dL (3.9-5) 10/23/20 13:32 Albumin/Globulin Ratio 1.3 % 10/23/20 13:32 Triglycerides 60 mg/dL (2-149) 10/24/20 09:29 Cholesterol 139 mg/dL (50-199) 10/24/20 09:29 LDL Cholesterol Direct 87 mg/dL (50-130) 10/24/20 09:29 HDL Cholesterol 46 mg/dL (40-59) 10/24/20 09:29 Cholesterol/HDL Ratio 3.02 % 10/24/20 09:29 Procalcitonin < 0.05 ng/mL (<0.15) 10/23/20 18: TSH 6.540 mlU/mL (0.270-4.200) H 10/23/20 18: TSH 7.100 mlU/mL (0.270-4.200) H 10/23/20 18:23 Free T4 1.33 ng/dL (0.76-1.46) 10/23/20 18:23 Coronavirus (PCR) Negative (Negative) 10/24/20 09:57 Winkler/IV: Voiding Method Condom Catheter Active Medications - Current Medications Current Medications: Generic Name Dose Route Start Last Admin Trade Name Freq PRN Reason Stop Dose Admin Acetaminophen 650 mg 10/23/20 20:00 Acetaminophen 325 Mg Tab PO Q4H PRN Pain, Mild (1-3) Ascorbic Acid 500 mg 10/23/20 22:00 10/25/20 22:06 Ascorbic Acid 500 Mg Tab PO 500 mg BID ALEX Administration Aspirin 325 mg 10/24/20 10:00 10/25/20 10:43 Aspirin 325 Mg Tab PO 325 mg QDAY ALEX Administration Atorvastatin Calcium 40 mg 10/23/20 22:00 10/25/20 22:06 Atorvastatin 40 Mg Tab PO 40 mg QHS ALEX Administration Bisacodyl 10 mg 10/23/20 20:00 Bisacodyl 10 Mg Rect Supp GA QDAY PRN Constipation Cholecalciferol 1,000 unit 10/24/20 10:00 10/25/20 10:43 Cholecalciferol (Vit D3) 1000 Unit (25 Mcg) Tab PO 1,000 unit QDAY ALEX Administration Heparin Sodium (Porcine) 5,000 unit 10/23/20 22:00 10/25/20 22:06 Heparin 5,000 Unit/1 Ml Vial SUB-Q 5,000 unit Q12HR ALEX Administration Ceftriaxone Sodium 2 gm in 100 mls @ 200 mls/hr 10/23/20 22:00 10/25/20 22:07 Rocephin/Ns 2 Gm/100 Ml IV 05/05/21 22:29 200 mls/hr Q24H [facility] Administration Protocol Azithromycin 500 mg in 250 mls @ 250 mls/hr 10/23/20 22:00 10/25/20 22:07 Zithromax/Ns IV 10/27/20 22:59 250 mls/hr Q24H ALEX Administration Protocol Lisinopril 2.5 mg 10/26/20 10:00 Lisinopril 5 Mg Tab PO QDAY ALEX Magnesium Hydroxide 30 ml 10/23/20 20:00 Magnesium Hydroxide (Mom) Oral Liqd Udc PO Q4H PRN Constipation Methylprednisolone Sodium Succinate 40 mg 10/23/20 22:00 10/26/20 05:18 Methylprednisolone Sod Succinate 40 Mg/1 Ml Inj IV 40 mg Q8HR [facility] Administration Metoclopramide HCl 10 mg 10/23/20 20:00 Metoclopramide 10 Mg Tab PO Q6H PRN Nausea And Vomiting Metoprolol Tartrate 12.5 mg 10/26/20 10:00 Metoprolol Tartrate 25 Mg Tab PO BID [facility] Ondansetron HCl 4 mg 10/23/20 20:00 Ondansetron 4 Mg/2 Ml Inj IV Q8H PRN Nausea And Vomiting Promethazine HCl 25 mg 10/23/20 20:00 Promethazine 25 Mg Rect Supp GA Q6H PRN Nausea And Vomiting Sodium Chloride 10 ml 10/23/20 20:00 Sodium Chloride 0.9% 10 Ml Flush Syringe IV PRN PRN LINE FLUSH Zinc Sulfate 220 mg 10/23/20 22:00 10/25/20 22:06 Zinc Sulfate 220 Mg Cap PO 220 mg BID ALEX Administration Nutrition/Malnutrition Assess - Dietary Evaluation Nutrition/Malnutrition Findings: Nutrition Notes Start: 10/24/20 11:33 Freq: Status: Active Protocol: Document 10/24/20 11:33 CW (Rec: 10/24/20 11:44 CW [id number]) Nutrition Notes 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 Skin not intact per chart. No Farhat score available. Pt currently does not have a diet .Pt did not answer phone for nutritional interview. 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 Per chart, pt also has some confusion. 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 Is patient on ventilator? No Is Patient Ambulatory and/or Out of Bed No REE-([facility]-confined to bed) 2016.492 Additional Notes Protein needs: 89 - 107g (1 - 1.2g/kgBW) fluid needs: 1 ml/kcal Nutrition Intervention Change Diet Order: diet advancement when medically feasible Goal #1 deit advancement when medically feasible Anticipated Discharge Needs: Cardiac Diet Follow-Up By: 10/26/20 Additional Comments F/U fro diet advancement, PO intakes, and need for ONS
[2020-10-26] MEDS: ASPIRIN 325 MG TAB PO SCH (11:00)
[2020-10-26] MEDS: ASCORBIC ACID 500 MG TAB PO SCH ×2 (11:00→21:43)
[2020-10-26] MEDS: ZINC SULFATE 220 MG CAP PO SCH ×2 (11:00→21:43)
[2020-10-26] MEDS: CHOLECALCIFEROL (VIT D3) 1000 UNIT (25 mcg) TAB PO SCH (11:00)
[2020-10-26] MEDS: HEPARIN 5,000 UNIT/1 ML VIAL SUB-Q SCH ×2 (11:01→21:42)
[2020-10-26] MEDS: METOPROLOL TARTRATE 25 MG TAB PO SCH ×2 (11:02→21:43)
--- NOTE | 2020-10-26 12:48 | Electrocardiograph Report ---
[facility] Test Date: 2020-10-23 Test Time: 12:58:44 Pat Name: CORI PA Department: Room: A371 1 Gender: M Last Picker: AYSHA : [id number] Requested By: DANIELA VILLALPANDO Order Number: [id number] Reading MD: Sandro Cornell Measurements Intervals [place] Rate: 74 P: 74 MS: 151 QRS: 13 QRSD: 171 T: 155 QT: 469 QTc: 522 Interpretive Statements Sinus rhythm Probable left atrial enlargement Left bundle branch block No previous ECG available for comparison Electronically Signed On 10-26-2020 12:48:35 EDT by Sandro Cornell
--- NOTE | 2020-10-26 14:20 | Consultation ---
History of Present Illness Consult date: 10/26/20 Reason for Consult: Acute CVA Chief complaint: Right-sided weakness and difficulty expressing himself History of present illness: 70 yo male with htn, hypothyroidism who presents with 2 days of confusion, weakness and noted with an acute partial L MCA territory ischemic infarction, in the setting of an Echo that reveals an EF of 30 to 35%, bilateral pneumonia, and possible chf exacerbation. Currently, the patient feels slightly better. He was initially noted with a NIHSS of 16 in the ED but presented outside the tPA window and no LVO was noted on CTAs. Past History Past Medical History: hypertension, hypothyroidism, other (See HPI) Past Surgical History: thyroidectomy Social history: single. denies: smoking, alcohol abuse Family history: hypertension Medications and Allergies Allergies Allergy/AdvReac Type Severity Reaction Status Date / Time No Known Allergies Allergy Unverified 10/23/20 12:44 Active Meds: Active Medications Acetaminophen (Acetaminophen 325 Mg Tab) 650 mg PO Q4H PRN PRN Reason: Pain, Mild (1-3) Ascorbic Acid (Ascorbic Acid 500 Mg Tab) 500 mg PO BID [facility] Last Admin: 10/26/20 11:00 Dose: 500 mg Documented by: Aspirin (Aspirin 325 Mg Tab) 325 mg PO QDAY [facility] Last Admin: 10/26/20 11:00 Dose: 325 mg Documented by: Atorvastatin Calcium (Atorvastatin 40 Mg Tab) 40 mg PO QHS [facility] Last Admin: 10/25/20 22:06 Dose: 40 mg Documented by: Bisacodyl (Bisacodyl 10 Mg Rect Supp) 10 mg MS QDAY PRN PRN Reason: Constipation Cholecalciferol (Cholecalciferol (Vit D3) 1000 Unit (25 Mcg) Tab) 1,000 unit PO QDAY [facility] Last Admin: 10/26/20 11:00 Dose: 1,000 unit Documented by: Heparin Sodium (Porcine) (Heparin 5,000 Unit/1 Ml Vial) 5,000 unit SUB-Q Q12HR [facility] Last Admin: 10/26/20 11:01 Dose: 5,000 unit Documented by: Ceftriaxone Sodium (Rocephin/Ns 2 Gm/100 Ml) 2 gm in 100 mls @ 200 mls/hr IV Q24H [facility]; Protocol Stop: 10/27/20 22:29 Last Admin: 10/25/20 22:07 Dose: 200 mls/hr Documented by: Azithromycin (Zithromax/Ns) 500 mg in 250 mls @ 250 mls/hr IV Q24H [facility]; Prot ocol Stop: 10/27/20 22:59 Last Admin: 10/25/20 22:07 Dose: 250 mls/hr Documented by: Lisinopril (Lisinopril 5 Mg Tab) 2.5 mg PO QDAY [facility] Last Admin: 10/26/20 11:04 Dose: 2.5 mg Documented by: Magnesium Hydroxide (Magnesium Hydroxide (Mom) Oral Liqd Udc) 30 ml PO Q4H PRN PRN Reason: Constipation Methylprednisolone Sodium Succinate (Methylprednisolone Sod Succinate 40 Mg/1 Ml Inj) 40 mg IV Q8HR [facility] Last Admin: 10/26/20 05:18 Dose: 40 mg Documented by: Metoclopramide HCl (Metoclopramide 10 Mg Tab) 10 mg PO Q6H PRN PRN Reason: Nausea And Vomiting Metoprolol Tartrate (Metoprolol Tartrate 25 Mg Tab) 12.5 mg PO BID [facility] Last Admin: 10/26/20 11:02 Dose: Not Given Documented by: Ondansetron HCl (Ondansetron 4 Mg/2 Ml Inj) 4 mg IV Q8H PRN PRN Reason: Nausea And Vomiting Promethazine HCl (Promethazine 25 Mg Rect Supp) 25 mg MS Q6H PRN PRN Reason: Nausea And Vomiting Sodium Chloride (Sodium Chloride 0.9% 10 Ml Flush Syringe) 10 ml IV PRN PRN PRN Reason: LINE FLUSH Zinc Sulfate (Zinc Sulfate 220 Mg Cap) 220 mg PO BID [facility] Last Admin: 10/26/20 11:00 Dose: 220 mg Documented by: Review of Systems All systems: negative (as per HPI but limited by expressive aphasia;) Physical Examination - Vital Signs Vital Signs: Vital Signs Temp Pulse Resp BP Pulse Ox 97.7 F 82 18 168/115 98 10/23/20 12:47 10/23/20 12:47 10/23/20 12:47 10/23/20 12:47 10/23/20 12:47 - Physical Exam Narrative exam: Gen: nad, well-nourished; Head: normocephalic; Eyes: no gaze deviation; no ptosis; ENT: normal vocalization; CVS: warm and well-perfused; Pulm: no respiratory distress; GI: appears non-distended; Ext: no cyanosis at distal extremities; Skin: no acute rash at distal extremities; Heme: no pathologic bruising at distal extremities; Neuro: alert, oriented to age, not month, +moderate dysarthria, modrate to severe expressive and mild receptive aphasia, CN 2 - PERRL, visual mcnally slightly decreased on the right in each eye, CN 3, 4, 6 - EOMI, CN 5 - facial sensation symmetric to light touch, CN 7 - facial movement with mild droop on the right, CN 8 - hearing grossly intact, CN 9, 10 - uvula midline, CN 11 - shoulder movement symmetric, CN 12 - tongue midline; Motor - at least 4+/5 at left exts and at least 3-/5 at RUE proximally and at least 1/6 at distal RUE; at least 4/5 at proximal RLE and 1/5 w/ rt ADF and 3/5 w/ rt APF; Sensory - light touch symmetric, Cerebellar - fnf /hts intact on left with difficulty secondary to weakness on the right; Gait - deferred secondary to fall risk; NIHSS (1a.) Level of Consciousness:0 (1b.) LOC Questions:1 (1c.) LOC Commands:0 (2.) Best Gaze:0 (3.) Visual:1 (4.) Facial Palsy:1 (5a.) Motor Arm, Left:0 (5b.) Motor Arm, Right:2 (6a.) Motor Leg, Left:0 (6b.) Motor Leg, Right:1 (7.) Limb Ataxia:0 (8.) Sensory:1 (9.) Best Language:2 (10.) Dysarthria:1 (11.) Extinction and Inattention:0 NIHSS Total Score: 10 Results - Laboratory Findings CBC and BMP: 10/23/20 13:32 10/26/20 05:34 Abnormal Lab Findings: Abnormal Labs 10/23/20 10/23/20 10/23/20 13:32 18:23 18:23 D-Dimer 4139.61 H Chloride 109.1 H BUN Glucose Lactate Dehydrogenase 334 H C-Reactive Protein 2.50 H NT-Pro-B Natriuret Pep 5806 H TSH 10/23/20 10/23/20 10/26/20 18:23 18:23 05:34 D-Dimer Chloride BUN 30 H Glucose 120 H Lactate Dehydrogenase C-Reactive Protein NT-Pro-B Natriuret Pep TSH 7.100 H 6.540 H Assessment and Plan 70 yo male with htn, hypothyroidism who presents with 2 days of confusion, weakness and noted with an acute partial L MCA territory ischemic stroke with noted expressive aphasia, dysarthria, right hemiparesis, with possible right homonymous hemianopsia. 1. Acute Ischemic (EMBOLIC) Stroke - ASA 325 mg PO qday, recommend KELLY and long-term cardiac monitoring (for paroxysmal afib); SBP goal 160-200 mmHg and DBP 80-100 mmHg for 24 more hours and then slowly normalize. Statin therapy for a goal LDL of 70, when patient passes swallow evaluation. Recommend fluoxetine 20 mg qday for motor improvement upon discharge. PT/OT/ST/Swallow evaluation. Long-term risk-factor modification, including a strict diet/exercise regimen for secondary stroke prophylaxis. Followup with Stroke Neurology in 6 weeks. 2. Hypertension - goal SBP 160-200 mmHg and DBP 80-100 mmHg for 24 more hours and then slowly normalize. 3. Hypothyroidism - management per primary team. 4. Dysarthria / Dysphagia - st / swallow evaluation/monitoring. 5. Right-sided weakness - pt/ot evaluation/monitoring. 6. Unsteady Gait - pt/ot evaluation/monitoring. 7. Aphasia - st evaluation/monitoring. 8. 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 Mendel Bonilla MD Neurology
[2020-10-26] MEDS: AZITHROMYCIN/NS 500 MG/250 ML 500 MG/250 ML BAG IV SCH (21:42)
[2020-10-26] MEDS: cefTRIAXone/NS 2 GM/100 ML 2 GM/100 ML BAG IV SCH (21:42)
[2020-10-27] MEDS: methylPREDNISolone Sod Succinate 40 MG/1 ML INJ IV SCH ×3 (05:08→21:31)
[2020-10-27] MEDS: ASCORBIC ACID 500 MG TAB PO SCH ×2 (09:36→21:30)
[2020-10-27] MEDS: ASPIRIN 325 MG TAB PO SCH (09:36)
[2020-10-27] MEDS: ZINC SULFATE 220 MG CAP PO SCH ×2 (09:36→21:30)
[2020-10-27] MEDS: CHOLECALCIFEROL (VIT D3) 1000 UNIT (25 mcg) TAB PO SCH (09:36)
[2020-10-27] MEDS: HEPARIN 5,000 UNIT/1 ML VIAL SUB-Q SCH ×2 (09:37→21:30)
[2020-10-27] MEDS: LISINOPRIL 5 MG TAB PO SCH (09:37)
--- NOTE | 2020-10-27 09:37 | Progress Note ---
Assessment and Plan Acute CVA MRI reviewed (10/23/2020): Acute infarction in the left middle cerebral artery distribution. Telemetry reviewed: Sinus rhythm 77 with frequent PVCs. One episode of 6 beat V. tach noted overnight. Echocardiogram reviewed (10/23/2020): LVEF is 35 to 40%. LV is moderately dilated. LV SF is moderately decreased. Borderline LVH. There is hypokinesis of the septal and inferior wall. Moderate to severe hypokinesis of the inferior wall. Moderate hypokinesis of the mid inferoseptal wall. Moderate hypokinesis in the apical septal wall. No VSD is visualized. No ventricle thrombus noted on the study. RV SF is normal. Left and right atrium are mildly dilated. Saline bubble contrast intravenous injection does not demonstrate PFO. Carotid ultrasound reviewed no significant findings Neck and head CTA reviewed no acute changes CT head noncontrast reviewed no acute changes or signs of hemorrhage Neuro is following: Recommend permissive hypertension Cardiomyopathy Echocardiogram reviewed as above EF is 35 to 40%. Patient is on appropriate meds including beta-chang, NAEL inhibitor, statin, ASA. Continue to monitor BMP Left bundle branch block Onset date is unknown. 12-lead reviewed no ST segment elevation. Troponins are negative x2. AMI ruled out. Elevated D-dimer Further work-up per primary team Hypothyroidism TSH is noted to be elevated. Management per primary team Covid PUI Covid PCR is negative DVT prophylaxis Heparin SQ Patient is currently in stable cardiac status. We will follow This patient was seen in conjunction with Dr Salvador who agrees with this assessment and plan of care. - Patient Problems (1) LBBB (left bundle branch block) Current Visit: Yes Status: Acute (2) Acute CVA (cerebrovascular accident) Current Visit: Yes Status: Acute (3) Cardiomyopathy Current Visit: Yes Status: Acute (4) Suspected 2019 novel coronavirus infection Current Visit: Yes Status: Acute (5) Hypothyroidism Current Visit: Yes Status: Acute Subjective Date of service: 10/27/20 Principal diagnosis: Chest Pain Interval history: Patient resting comfortably in bed. No shortness of breath or chest pain overnight. Telemetry reviewed: Sinus rhythm 66. Low heart rate of sinus bradycardia 48 overnight. No events Objective Last Vital Signs Temp 98.0 F 10/27/20 04:04 Pulse 58 L 10/27/20 04:04 Resp 20 10/27/20 04:04 BP 145/97 10/27/20 04:04 Pulse Ox 99 10/27/20 04:04 - Physical Examination General: No Apparent Distress, Other (Patient is pleasantly confused) HEENT: Positive: PERRL, Mucus Membranes Moist Neck: Positive: neck supple, trachea midline, thyromegaly Cardiac: Positive: S1/S2 Lungs: Positive: clear to auscultation, Normal Breath Sounds Neuro: Positive: Other (Right-sided weakness aphasic partially) Abdomen: Positive: Soft, Active Bowel Sounds. Negative: Tender, Distended Skin: Positive: Clear Incision: Cardiac Cath Site Musculoskeletal: No Pain, Normal Range of Motion Extremities: Present: upper extr. pulses, lower extr. pulses. Absent: edema - Imaging and Cardiology EKG: report reviewed, image reviewed Echo: report reviewed - Telemetry EKG Rhythm: Sinus Rhythm - EKG Sinus rhythms and dysrhythmias: sinus rhythm
[2020-10-27] MEDS: METOPROLOL TARTRATE 25 MG TAB PO SCH ×2 (09:42→21:29)
[2020-10-27 10:08] LABS: BUN/Creatinine Ratio 25; Blood Urea Nitrogen 28 mg/dL (9-20); Calcium 8.5 mg/dL (8.4-10.2); Hemolysis Index 3
--- NOTE | 2020-10-27 19:18 | Progress Note ---
Assessment and Plan Assessment and plan: Acute CVA (cerebrovascular accident) with right hemiparesis Acute CVA with right-sided hemiparesis Not a candidate for TPA, neuro work-up reviewed PT OT, Neuro consult appreciated Acute infarcts on the left cerebral artery distribution No hemorrhagic conversion Possible embolic CVA [Per neurology] Neurology recommend KELLY TTE ejection fraction 35 to 40%, no PFO CHF (congestive heart failure) acute vs acute on chronic LV ejection fraction 35 to 40% Optimize medications, diuretics beta-blockers Input output monitoring, low-sodium diet and fluid restriction --Pneumonia Complete antibiotics and DC COVID-19 test negative Covid PCR negative Acute hypoxemic respiratory failure Improved, home O2 evaluation prior to discharge DVT prophylaxis SCD to bilateral lower extremities while in bed, prophylactic anticoagulation Discharge care planning Acute rehab consult requested Second alternative is subacute rehab Plan of care reviewed with the patient his nurse and the case management Acute rehab placement, possible discharge in 1 to 2 days if stable Consults and recommendations noted Plan of care reviewed with the patient and his nurse Brief history 70 YO Male with HTN, Hypothyroidism presents to ED for evaluation. Patient is confused with diminished cognition and is unable to provide history at the time my evaluation. Patient history provided by EMS staff, ED staff, as well as the patient's son who is available by telephone and provides history. As per son the patient had experienced increased confusion and increased weakness over the past 2 days with progressively worsening symptoms over the same timeframe. Patient son acknowledges decreased exercise tolerance, shortness of breath on exertion, increased bedbound status, and decreased oral intake. Patient tr ansported to [facility] via private vehicle for further care and evaluation of this aforementioned symptoms. The patient was seen and evaluated in the emergency department. All lab and imaging studies reviewed. The patient was found to have a neurologic deficits and clinical symptoms consistent with CVA. A code stroke was Called upon arrival to the ED. The patient was initiated on CVA protocol. Teleneurology was consulted. Patient also found to have clinical symptoms consistent with CHF as well as bilateral pneumonia. The patient was also found to have a pulse oximetry of 89% on room air which is consistent with acute hypoxemic respiratory failure. The patient was treated with supplemental oxygen with improvement in symptoms. Patient admitted to medical floor and initiated on coronavirus protocol, pneumonia protocol, as well as CHF protocol. Cardiology team consulted in ED. No further history is obtainable. Patient has diminished cognition at the time of my evaluation but has a positive gag reflex and is able to protect his airway without difficulty. Advanced care planning conducted in ED. 10/24/2020 Acute CVA with right hemiparesis PT and OT 10/25/2020 Acute CVA with right hemiplegia Rehab consult requested Ejection fraction is 35 to 40% 10/26/2020 patient with acute CVA and right-sided hemiparesis PT evaluated the patient and recommended acute rehab Case management processing the request Possible discharge in 1 to 2 days if stable 10/27/2020; patient is clinically stable, awaiting rehab/SNF placement DC planning per Case management. Neuro recommend KELLY[possible embolic CVA] follow KELLY History Interval history: I have seen and examined the patient at the bedside Patient's chart and medications reviewed Patient feels slightly better Awaiting placement Vital signs noted Hospitalist Physical - Constitutional Vitals: Temp Pulse Resp BP Pulse Ox 98.5 F 66 16 130/82 99 10/27/20 16:42 10/27/20 16:42 10/27/20 16:42 10/27/20 16:42 10/27/20 16:42 General appearance: Present: no acute distress, well-nourished, disheveled - EENT Eyes: Present: PERRL, EOM intact - Neck Neck: Present: supple, normal ROM - Respiratory Respiratory effort: normal Respiratory: bilateral: diminished, negative: rales, rhonchi, wheezing - Cardiovascular Rhythm: regular Heart Sounds: Present: S1 & S2 - Extremities Extremities: no ischemia, No edema - Abdominal General gastrointestinal: soft, non-tender, non-distended, normal bowel sounds - Integumentary Integumentary: Present: clear, warm - Psychiatric Psychiatric: appropriate mood/affect, cooperative - Neurologic Neurologic: moves all extremities, other (Acute CVA with right hemiparesis) HEART Score - HEART Score Troponin: Troponin T 0.026 ng/mL (0.00-0.029) 10/23/20 16:39 Results - Labs CBC & Chem 7: 10/23/20 13:32 10/27/20 08:55 Labs: Laboratory Last Values WBC 5.4 K/mm3 (4.5-11.0) 10/23/20 13:32 RBC 5.00 M/mm3 (3.65-5.03) 10/23/20 13:32 Hgb 14.3 gm/dl (11.8-15.2) 10/23/20 13:32 Hct 42.7 % (35.5-45.6) 10/23/20 13:32 MCV 85 fl (84-94) 10/23/20 13:32 MCH 29 pg (28-32) 10/23/20 13:32 MCHC 34 % (32-34) 10/23/20 13:32 RDW 13.8 % (13.2-15.2) 10/23/20 13:32 Plt Count 237 K/mm3 (140-440) 10/23/20 13:32 Lymph % (Auto) 27.8 % (13.4-35.0) 10/23/20 13:32 [place] % (Auto) 6.0 % (0.0-7.3) 10/23/20 13:32 Eos % (Auto) 1.6 % (0.0-4.3) 10/23/20 13:32 Baso % (Auto) 0.7 % (0.0-1.8) 10/23/20 13:32 Lymph # (Auto) 1.5 K/mm3 (1.2-5.4) 10/23/20 13:32 [place] # (Auto) 0.3 K/mm3 (0.0-0.8) 10/23/20 13:32 Eos # (Auto) 0.1 K/mm3 (0.0-0.4) 10/23/20 13:32 Baso # (Auto) 0.0 K/mm3 (0.0-0.1) 10/23/20 13:32 Seg Neutrophils % 63.9 % (40.0-70.0) 10/23/20 13:32 Seg Neutrophils # 3.4 K/mm3 (1.8-7.7) 10/23/20 13:32 PT 13.2 Sec. (12.2-14.9) 10/23/20 13:32 INR 1.01 (0.87-1.13) 10/23/20 13:32 APTT 29.9 Sec. (24.2-36.6) 10/23/20 13:32 D-Dimer 4139.61 ng/mlDDU (0-234) H 10/23/20 18:23 Sodium 141 mmol/L (137-145) 10/27/20 08:55 Potassium 4.0 mmol/L (3.6-5.0) 10/27/20 08:55 Chloride 102.3 mmol/L (98-107) 10/27/20 08:55 Carbon Dioxide 29 mmol/L (22-30) 10/27/20 08:55 Anion Gap 14 mmol/L 10/27/20 08:55 BUN 28 mg/dL (9-20) H 10/27/20 08:55 Creatinine 1.1 mg/dL (0.8-1.3) 10/27/20 08:55 Estimated GFR > 60 ml/min 10/27/20 08:55 BUN/Creatinine Ratio 25 % 10/27/20 08:55 Glucose 124 mg/dL (75-100) H 10/27/20 08:55 POC Glucose 85 mg/dL (70-105) 10/23/20 17:00 Calcium 8.5 mg/dL (8.4-10.2) 10/27/20 08:55 Magnesium 2.20 mg/dL (1.7-2.3) 10/23/20 20:33 Ferritin 238.5 ng/mL (30.0-300.0) 10/23/20 18:23 Total Bilirubin 0.80 mg/dL (0.1-1.2) 10/23/20 13:32 AST 13 units/L (5-40) 10/23/20 13:32 ALT 13 units/L (7-56) 10/23/20 13:32 Alkaline Phosphatase 67 units/L (35-129) 10/23/20 13:32 Lactate Dehydrogenase 334 units/L (91-180) H 10/23/20 18:23 Troponin T 0.026 ng/mL (0.00-0.029) 10/23/20 16:39 C-Reactive Protein 2.50 mg/dL (0.00-1.30) H 10/23/20 18:23 NT-Pro-B Natriuret Pep 5806 pg/mL (0-900) H 10/23/20 13:32 Total Protein 7.3 g/dL (6.3-8.2) 10/23/20 13:32 Albumin 4.1 g/dL (3.9-5) 10/23/20 13:32 Albumin/Globulin Ratio 1.3 % 10/23/20 13:32 Triglycerides 60 mg/dL (2-149) 10/24/20 09:29 Cholesterol 139 mg/dL (50-199) 10/24/20 09:29 LDL Cholesterol Direct 87 mg/dL (50-130) 10/24/20 09:29 HDL Cholesterol 46 mg/dL (40-59) 10/24/20 09:29 Cholesterol/HDL Ratio 3.02 % 10/24/20 09:29 Procalcitonin < 0.05 ng/mL (<0.15) 10/23/20 18:23 TSH 6.540 mlU/mL (0.270-4.200) H 10/23/20 18: TSH 7.100 mlU/mL (0.270-4.200) H 10/23/20 18:23 Free T4 1.33 ng/dL (0.76-1.46) 10/23/20 18:23 Coronavirus (PCR) Negative (Negative) 10/24/20 09:57 [place]inkler/IV: Voiding Method Condom Catheter Active Medications - Current Medications Current Medications: Generic Name Dose Route Start Last Admin Trade Name Freq PRN Reason Stop Dose Admin Acetaminophen 650 mg 10/23/20 20:00 Acetaminophen 325 Mg Tab PO Q4H PRN Pain, Mild (1-3) Ascorbic Acid 500 mg 10/23/20 22:00 10/27/20 09:36 Ascorbic Acid 500 Mg Tab PO 500 mg BID ALEX Administration Aspirin 325 mg 10/24/20 10:00 10/27/20 09:36 Aspirin 325 Mg Tab PO 325 mg QDAY ALEX Administration Atorvastatin Calcium 40 mg 10/23/20 22:00 10/26/20 21:43 Atorvastatin 40 Mg Tab PO 40 mg QHS ALEX Administration Bisacodyl 10 mg 10/23/20 20:00 Bisacodyl 10 Mg Rect Supp NC QDAY PRN Constipation Cholecalciferol 1,000 unit 10/24/20 10:00 10/27/20 09:36 Cholecalciferol (Vit D3) 1000 Unit (25 Mcg) Tab PO 1,000 unit QDAY ALEX Administration Heparin Sodium (Porcine) 5,000 unit 10/23/20 22:00 10/27/20 09:37 Heparin 5,000 Unit/1 Ml Vial SUB-Q 5,000 unit Q12HR ALEX Administration Ceftriaxone Sodium 2 gm in 100 mls @ 200 mls/hr 10/23/20 22:00 10/26/20 21:42 Rocephin/Ns 2 Gm/100 Ml IV 10/27/20 22:29 200 mls/hr Q24H ALEX Administration Protocol Azithromycin 500 mg in 250 mls @ 250 mls/hr 10/23/20 22:00 10/26/20 21:42 Zithromax/Ns IV 10/27/20 22:59 250 mls/hr Q24H ALEX Administration Protocol Lisinopril 5 mg 10/27/20 08:27 10/27/20 09:37 Lisinopril 5 Mg Tab PO 5 mg QDAY ALEX Administration Magnesium Hydroxide 30 ml 10/23/20 20:00 Magnesium Hydroxide (Mom) Oral Liqd Udc PO Q4H PRN Constipation Methylprednisolone Sodium Succinate 40 mg 10/23/20 22:00 10/27/20 14:55 Methylprednisolone Sod Succinate 40 Mg/1 Ml Inj IV 40 mg Q8HR ALEX Administration Metoclopramide HCl 10 mg 10/23/20 20:00 Metoclopramide 10 Mg Tab PO Q6H PRN Nausea And Vomiting Metoprolol Tartrate 6.25 mg 10/27/20 10:00 10/27/20 09:42 Metoprolol Tartrate 25 Mg Tab PO 6.25 mg BID ALEX Administration Ondansetron HCl 4 mg 10/23/20 20:00 Ondansetron 4 Mg/2 Ml Inj IV Q8H PRN Nausea And Vomiting Promethazine HCl 25 mg 10/23/20 20:00 Promethazine 25 Mg Rect Supp NC Q6H PRN Nausea And Vomiting Sodium Chloride 10 ml 10/23/20 20:00 10/26/20 21:43 Sodium Chloride 0.9% 10 Ml Flush Syringe IV 10 ml PRN PRN Administration LINE FLUSH Zinc Sulfate 220 mg 10/23/20 22:00 10/27/20 09:36 Zinc Sulfate 220 Mg Cap PO 220 mg BID ALEX Administration Nutrition/Malnutrition Assess - Dietary Evaluation Nutrition/Malnutrition Findings: Nutrition Notes Start: 10/24/20 11:33 Freq: Status: Active Protocol: Document 10/26/20 11:12 AL (Rec: 10/26/20 11:26 AL [id number]) Co-Sign 10/26/20 11:12 MK Nutrition Notes Initial or Follow up Reassessment Current Diagnosis Hypertension,Heart Failure, Respiratory Failure Other Pertinent Diagnosis suspected CVA, pneu Current Diet Regular Diet with thin liquids Labs/Tests BUN 30 BG 120 Pertinent Medications Solumedrol Height 5 ft 11 in Weight 89.5 kg [place] Body Weight (kg) 78.18 BMI 27.5 Intake Prior to Admission Poor Weight Status Overweight Subjective/Other Information F/U fo diet advancement. Pt. now on Regular diet with thin liquids. Pt states drinking Ensure Enlive BID. Diet and ONS well-tolerated. Breakfast this morning was tolerated at 90% Percent of energy/protein needs met: 138%/132% Burn Absent Trauma Absent Current % PO Good (75-100%) Minimum of two criteria No physical signs of malnutrition #1 Nutrition Diagnosis Predicted suboptimal energy intake As Evidenced by Signs and Symptoms Pt ate 90% of breakfast and tolerates Ensure Enlive BID. Diagnosis Progress(for reassessment Resolved documentation) Is patient on ventilator? No Is Patient Ambulatory and/or Out of Bed No REE-([facility]-confined to bed) 2018.196 Additional Notes Protein needs: 89 - 107g (1 - 1.2g/kgBW) fluid needs: 1 ml/kcal Nutrition Intervention Change Diet Order: Curent diet as ordered Add Supplement/Snack (indicate name/kcal d/c Ensure Enlive /protein ) Goal #1 Meet at least 75% of estimated energy and protein needs via PO Anticipated Discharge Needs: Cardiac Diet Revisit per MD consult or patient Sign Off request:
[2020-10-27] MEDS: AZITHROMYCIN/NS 500 MG/250 ML 500 MG/250 ML BAG IV SCH (21:30)
[2020-10-27] MEDS: cefTRIAXone/NS 2 GM/100 ML 2 GM/100 ML BAG IV SCH (21:30)
[2020-10-28] MEDS: methylPREDNISolone Sod Succinate 40 MG/1 ML INJ IV SCH ×3 (05:01→22:36)
[2020-10-28 06:03] LABS: BUN/Creatinine Ratio 28; Blood Urea Nitrogen 28 mg/dL (9-20); Calcium 8.2 mg/dL (8.4-10.2); Hemolysis Index 3
[2020-10-28] MEDS: ASPIRIN 325 MG TAB PO SCH ×2 (10:22→10:45)
[2020-10-28] MEDS: HEPARIN 5,000 UNIT/1 ML VIAL SUB-Q SCH ×3 (10:22→22:37)
[2020-10-28] MEDS: METOPROLOL TARTRATE 25 MG TAB PO SCH ×3 (10:39→22:37)
[2020-10-28] MEDS: LISINOPRIL 5 MG TAB PO SCH (10:40)
[2020-10-28] MEDS: CHOLECALCIFEROL (VIT D3) 1000 UNIT (25 mcg) TAB PO SCH (10:40)
[2020-10-28] MEDS: ZINC SULFATE 220 MG CAP PO SCH ×2 (10:40→22:36)
[2020-10-28] MEDS: ASCORBIC ACID 500 MG TAB PO SCH ×2 (10:40→22:36)
--- NOTE | 2020-10-28 11:04 | Progress Note ---
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] Neurology recommend KELLY TTE ejection fraction 35 to 40%, no PFO CHF (congestive heart failure) acute vs acute on chronic LV ejection fraction 35 to 40% Optimize medications, diuretics beta-blockers Input output monitoring, low-sodium diet and fluid restriction --Pneumonia Complete antibiotics and DC COVID-19 test negative Covid PCR negative Acute hypoxemic respiratory failure Improved, home O2 evaluation prior to discharge DVT prophylaxis SCD to bilateral lower extremities while in bed, prophylactic anticoagulation Discharge care planning Acute rehab consult requested Second alternative is subacute rehab Plan of care reviewed with the patient his nurse and the case management Acute rehab placement, possible discharge in 1 to 2 days if stable Consults and recommendations noted Plan of care reviewed with the patient and his nurse Brief history 70 YO Male with HTN, Hypothyroidism presents to ED for evaluation. Patient is confused with diminished cognition and is unable to provide history at the time my evaluation. Patient history provided by EMS staff, ED staff, as well as the patient's son who is available by telephone and provides history. As per son the patient had experienced increased confusion and increased weakness over the past 2 days with progressively worsening symptoms over the same timeframe. Patient son acknowledges decreased exercise tolerance, shortness of breath on exertion, increased bedbound status, and decreased oral intake. Patient transported to [facility] via private vehicle for further care and evaluation of this aforementioned symptoms. The patient was seen and evaluated in the emergency department. All lab and imaging studies reviewed. The patient was found to have a neurologic deficits and clinical symptoms consistent with CVA. A code stroke was Called upon arrival to the ED. The patient was initiated on CVA protocol. Teleneurology was consulted. Patient also found to have clinical symptoms consistent with CHF as well as bilateral pneumonia. The patient was also found to have a pulse oximetry of 89% on room air which is consistent with acute hypoxemic respiratory failure. The patient was treated with supplemental oxygen with improvement in symptoms. Patient admitted to medical floor and initiated on coronavirus protocol, pneumonia protocol, as well as CHF protocol. Cardiology team consulted in ED. No further history is obtainable. Patient has diminished cognition at the time of my evaluation but has a positive gag reflex and is able to protect his airway without difficulty. Advanced care planning conducted in ED. 10/24/2020 Acute CVA with right hemiparesis PT and OT 10/25/2020 Acute CVA with right hemiplegia Rehab consult requested Ejection fraction is 35 to 40% 10/26/2020 patient with acute CVA and right-sided hemiparesis PT evaluated the patient and recommended acute rehab Case management processing the request Possible discharge in 1 to 2 days if stable 10/27/2020; patient is clinically stable, awaiting rehab/SNF placement DC planning per Case management. 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 No new complain. Clinically stable Patient is going for KELLY today. DC planning to rehab/SNF when cleared by neurology. DC planning per case management History Interval history: Patient is seen and examined. Patient chart and medication reviewed Patient is doing okay. Patient is going for KELLY today Awaiting placement when okay with neurology. Vital signs noted Hospitalist Physical - Constitutional Vitals: Temp Pulse Resp BP Pulse Ox 97.8 F 61 15 131/88 94 10/28/20 03:47 10/28/20 10:40 10/28/20 03:47 10/28/20 10:40 10/27/20 22:55 General appearance: Present: no acute distress, well-nourished, disheveled HEART Score - HEART Score Troponin: Troponin T 0.026 ng/mL (0.00-0.029) 10/23/20 16:39 Results - Labs CBC & Chem 7: 10/23/20 13:32 10/28/20 05:25 Labs: Laboratory Last Values WBC 5.4 K/mm3 (4.5-11.0) 10/23/20 13:32 RBC 5.00 M/mm3 (3.65-5.03) 10/23/20 13:32 Hgb 14.3 gm/dl (11.8-15.2) 10/23/20 13:32 Hct 42.7 % (35.5-45.6) 10/23/20 13:32 MCV 85 fl (84-94) 10/23/20 13:32 MCH 29 pg (28-32) 10/23/20 13:32 MCHC 34 % (32-34) 10/23/20 13:32 RDW 13.8 % (13.2-15.2) 10/23/20 13:32 Plt Count 237 K/mm3 (140-440) 10/23/20 13:32 Lymph % (Auto) 27.8 % (13.4-35.0) 10/23/20 13:32 [place] % (Auto) 6.0 % (0.0-7.3) 10/23/20 13:32 Eos % (Auto) 1.6 % (0.0-4.3) 10/23/20 13:32 Baso % (Auto) 0.7 % (0.0-1.8) 10/23/20 13:32 Lymph # (Auto) 1.5 K/mm3 (1.2-5.4) 10/23/20 13:32 Childress # (Auto) 0.3 K/mm3 (0.0-0.8) 10/23/20 13:32 Eos # (Auto) 0.1 K/mm3 (0.0-0.4) 10/23/20 13:32 Baso # (Auto) 0.0 K/mm3 (0.0-0.1) 10/23/20 13:32 Seg Neutrophils % 63.9 % (40.0-70.0) 10/23/20 13:32 Seg Neutrophils # 3.4 K/mm3 (1.8-7.7) 10/23/20 13:32 PT 13.2 Sec. (12.2-14.9) 10/23/20 13:32 INR 1.01 (0.87-1.13) 10/23/20 13:32 APTT 29.9 Sec. (24.2-36.6) 10/23/20 13:32 D-Dimer 4139.61 ng/mlDDU (0-234) H 10/23/20 18:23 Sodium 137 mmol/L (137-145) 10/28/20 05:25 Potassium 4.1 mmol/L (3.6-5.0) 10/28/20 05:25 Chloride 102.0 mmol/L (98-107) 10/28/20 05:25 Carbon Dioxide 26 mmol/L (22-30) 10/28/20 05:25 Anion Gap 13 mmol/L 10/28/20 05:25 BUN 28 mg/dL (9-20) H 10/28/20 05:25 Creatinine 1.0 mg/dL (0.8-1.3) 10/28/20 05:25 Estimated GFR > 60 ml/min 10/28/20 05:25 BUN/Creatinine Ratio 28 % 10/28/20 05:25 Glucose 110 mg/dL (75-100) H 10/28/20 05:25 POC Glucose 85 mg/dL (70-105) 10/23/20 17:00 Calcium 8.2 mg/dL (8.4-10.2) L 10/28/20 05:25 Magnesium 2.20 mg/dL (1.7-2.3) 10/23/20 20:33 Ferritin 238.5 ng/mL (30.0-300.0) 10/23/20 18:23 Total Bilirubin 0.80 mg/dL (0.1-1.2) 10/23/20 13:32 AST 13 units/L (5-40) 10/23/20 13:32 ALT 13 units/L (7-56) 10/23/20 13:32 Alkaline Phosphatase 67 units/L (35-129) 10/23/20 13:32 Lactate Dehydrogenase 334 units/L (91-180) H 10/23/20 18:23 Troponin T 0.026 ng/mL (0.00-0.029) 10/23/20 16:39 C-Reactive Protein 2.50 mg/dL (0.00-1.30) H 10/23/20 18:23 NT-Pro-B Natriuret Pep 5806 pg/mL (0-900) H 10/23/20 13:32 Total Protein 7.3 g/dL (6.3-8.2) 10/23/20 13:32 Albumin 4.1 g/dL (3.9-5) 10/23/20 13:32 Albumin/Globulin Ratio 1.3 % 10/23/20 13:32 Triglycerides 60 mg/dL (2-149) 10/24/20 09:29 Cholesterol 139 mg/dL (50-199) 10/24/20 09:29 LDL Cholesterol Direct 87 mg/dL (50-130) 10/24/20 09:29 HDL Cholesterol 46 mg/dL (40-59) 10/24/20 09:29 Cholesterol/HDL Ratio 3.02 % 10/24/20 09:29 Procalcitonin < 0.05 ng/mL (<0.15) 10/23/20 18:23 TSH 6.540 mlU/mL (0.270-4.200) H 10/23/20 18:23 TSH 7.100 mlU/mL (0.270-4.200) H 10/23/20 18:23 Free T4 1.33 ng/dL (0.76-1.46) 10/23/20 18:23 Coronavirus (PCR) Negative (Negative) 10/24/20 09:57 Winkler/IV: Voiding Method Condom Catheter Active Medications - Current Medications Current Medications: Generic Name Dose Route Start Last Admin Trade Name Freq PRN Reason Stop Dose Admin Acetaminophen 650 mg 10/23/20 20:00 Acetaminophen 325 Mg Tab PO Q4H PRN Pain, Mild (1-3) Ascorbic Acid 500 mg 10/23/20 22:00 10/28/20 10:40 Ascorbic Acid 500 Mg Tab PO 500 mg BID ALEX Administration Aspirin 325 mg 10/24/20 10:00 10/28/20 10:45 Aspirin 325 Mg Tab PO 325 mg QDAY ALEX Administration Atorvastatin Calcium 40 mg 10/23/20 22:00 10/27/20 21:30 Atorvastatin 40 Mg Tab PO 40 mg QHS ALEX Administration Bisacodyl 10 mg 10/23/20 20:00 Bisacodyl 10 Mg Rect Supp TN QDAY PRN Constipation Cholecalciferol 1,000 unit 10/24/20 10:00 10/28/20 10:40 Cholecalciferol (Vit D3) 1000 Unit (25 Mcg) Tab PO 1,000 unit QDAY ALEX Administration Heparin Sodium (Porcine) 5,000 unit 10/23/20 22:00 10/28/20 10:45 Heparin 5,000 Unit/1 Ml Vial SUB-Q 5,000 unit Q12HR ALEX Administration Lisinopril 5 mg 10/27/20 08:27 10/28/20 10:40 Lisinopril 5 Mg Tab PO 5 mg QDAY ALEX Administration Magnesium Hydroxide 30 ml 10/23/20 20:00 Magnesium Hydroxide (Mom) Oral Liqd Udc PO Q4H PRN Constipation Methylprednisolone Sodium Succinate 40 mg 10/23/20 22:00 10/28/20 05:01 Methylprednisolone Sod Succinate 40 Mg/1 Ml Inj IV 40 mg Q8HR ALEX Administration Metoclopramide HCl 10 mg 10/23/20 20:00 Metoclopramide 10 Mg Tab PO Q6H PRN Nausea And Vomiting Metoprolol Tartrate 6.25 mg 10/27/20 10:00 10/28/20 10:46 Metoprolol Tartrate 25 Mg Tab PO 6.25 mg BID ALEX Administration Ondansetron HCl 4 mg 10/23/20 20:00 Ondansetron 4 Mg/2 Ml Inj IV Q8H PRN Nausea And Vomiting Promethazine HCl 25 mg 10/23/20 20:00 Promethazine 25 Mg Rect Supp TN Q6H PRN Nausea And Vomiting Sodium Chloride 10 ml 10/23/20 20:00 10/27/20 21:31 Sodium Chloride 0.9% 10 Ml Flush Syringe IV 10 ml PRN PRN Administration LINE FLUSH Zinc Sulfate 220 mg 10/23/20 22:00 10/28/20 10:40 Zinc Sulfate 220 Mg Cap PO 220 mg BID ALEX Administration Nutrition/Malnutrition Assess - Dietary Evaluation Nutrition/Malnutrition Findings: Nutrition Notes Start: 10/24/20 11:33 Freq: Status: Active Protocol: Document 10/26/20 11:12 AL (Rec: 10/26/20 11:26 AL [id number]) Co-Sign 10/26/20 11:12 MK Nutrition Notes Initial or Follow up Reassessment Current Diagnosis Hypertension,Heart Failure, Respiratory Failure Other Pertinent Diagnosis suspected CVA, pneu Current Diet Regular Diet with thin liquids Labs/Tests BUN 30 BG 120 Pertinent Medications Solumedrol Height 5 ft 11 in Weight 89.5 kg [place] Body Weight (kg) 78.18 BMI 27.5 Intake Prior to Admission Poor Weight Status Overweight Subjective/Other Information F/U fo diet advancement. Pt. now on Regular diet with thin liquids. Pt states drinking Ensure Enlive BID. Diet and ONS well-tolerated. Breakfast this morning was tolerated at 90% Percent of energy/protein needs met: 138%/132% Burn Absent Trauma Absent Current % PO Good (75-100%) Minimum of two criteria No physical signs of malnutrition #1 Nutrition Diagnosis Predicted suboptimal energy intake As Evidenced by Signs and Symptoms Pt ate 90% of breakfast and tolerates Ensure Enlive BID. Diagnosis Progress(for reassessment Resolved documentation) Is patient on ventilator? No Is Patient Ambulatory and/or Out of Bed No REE-([place] Lopezut-confined to bed) 2018.196 Additional Notes Protein needs: 89 - 107g (1 - 1.2g/kgBW) fluid needs: 1 ml/kcal Nutrition Intervention Change Diet Order: Curent diet as ordered Add Supplement/Snack (indicate name/kcal d/c Ensure Enlive /protein ) Goal #1 Meet at least 75% of estimated energy and protein needs via PO Anticipated Discharge Needs: Cardiac Diet Revisit per MD consult or patient Sign Off request: - Malnutrition Assessment Minimum of two criteria: No - Attestation Statement I have reviewed and agreed w/ Malnutrition eval & tx plan: Yes
--- NOTE | 2020-10-28 11:55 | Progress Note ---
Assessment and Plan Acute CVA MRI reviewed (10/23/2020): Acute infarction in the left middle cerebral artery distribution. Telemetry reviewed: Sinus rhythm 64. No events KELLY planned for Sunday morning (11/01/2020) 11:[address] Nehal Taylor. This may be performed as an outpatient at discretion of primary team. Cardiomyopathy Echocardiogram reviewed as above EF is 35 to 40%. Patient is on appropriate meds including beta-chang, NAEL inhibitor, statin, ASA. We will plan for ischemic work-up for new diagnosis of cardiomyopathy. This may be pursued in the outpatient setting. Left bundle branch block Onset date is unknown. 12-lead reviewed no ST segment elevation. Troponins are negative x2. AMI ruled out. Elevated D-dimer Further work-up per primary team Hypothyroidism TSH is noted to be elevated. Management per primary team Covid PUI Covid PCR is negative DVT prophylaxis Heparin SQ Patient is currently in stable cardiac status. We will plan for KELLY Sunday and outpatient ischemic work-up. Nothing further to add from cardiac standpoint. Will follow on as-needed basis This patient was seen in conjunction with Dr Salvador who agrees with this assessment and plan of care. - Patient Problems (1) LBBB (left bundle branch block) Current Visit: Yes Status: Acute (2) Acute CVA (cerebrovascular accident) Current Visit: Yes Status: Acute (3) Cardiomyopathy Current Visit: Yes Status: Acute (4) Suspected 2019 novel coronavirus infection Current Visit: Yes Status: Acute (5) Hypothyroidism Current Visit: Yes Status: Acute Subjective Date of service: 10/28/20 Principal diagnosis: Chest Pain Interval history: Patient resting comfortably in bed. No shortness of breath or chest pain overnight. Telemetry reviewed: Sinus rhythm 64. No events Objective Last Vital Signs Temp 97.8 F 10/28/20 03:47 Pulse 61 10/28/20 10:40 Resp 15 10/28/20 03:47 BP 131/88 10/28/20 10:40 Pulse Ox 97 10/28/20 11:44 - Physical Examination General: No Apparent Distress, Other (Patient is pleasantly confused) HEENT: Positive: PERRL, Mucus Membranes Moist Neck: Positive: neck supple, trachea midline, thyromegaly Cardiac: Positive: Reg Rate and Rhythm, S1/S2 Lungs: Positive: clear to auscultation, Normal Breath Sounds Neuro: Positive: Other (Right-sided weakness aphasic partially) Abdomen: Positive: Soft, Active Bowel Sounds. Negative: Tender, Distended Skin: Positive: Clear Incision: Cardiac Cath Site Musculoskeletal: No Pain, Normal Range of Motion Extremities: Present: upper extr. pulses, lower extr. pulses. Absent: edema - Labs and Meds Comprehensive Metabolic Panel 10/28/20 Range/Units 05:25 Sodium 137 (137-145) mmol/L Potassium 4.1 (3.6-5.0) mmol/L Chloride 102.0 (98-107) mmol/L Carbon Dioxide 26 (22-30) mmol/L BUN 28 H (9-20) mg/dL Creatinine 1.0 (0.8-1.3) mg/dL Glucose 110 H (75-100) mg/dL Calcium 8.2 L (8.4-10.2) mg/dL - Imaging and Cardiology EKG: report reviewed, image reviewed Echo: report reviewed - Telemetry EKG Rhythm: Sinus Rhythm - EKG Sinus rhythms and dysrhythmias: sinus rhythm
[2020-10-29] MEDS: methylPREDNISolone Sod Succinate 40 MG/1 ML INJ IV SCH ×3 (05:47→21:47)
[2020-10-29] MEDS: ASPIRIN 325 MG TAB PO SCH (10:35)
[2020-10-29] MEDS: ZINC SULFATE 220 MG CAP PO SCH ×2 (10:35→21:46)
[2020-10-29] MEDS: ASCORBIC ACID 500 MG TAB PO SCH ×2 (10:35→21:46)
[2020-10-29] MEDS: CHOLECALCIFEROL (VIT D3) 1000 UNIT (25 mcg) TAB PO SCH (10:35)
[2020-10-29] MEDS: HEPARIN 5,000 UNIT/1 ML VIAL SUB-Q SCH ×2 (10:36→21:47)
[2020-10-29] MEDS: LISINOPRIL 5 MG TAB PO SCH (10:45)
[2020-10-29] MEDS: METOPROLOL TARTRATE 25 MG TAB PO SCH ×2 (10:45→21:47)
--- NOTE | 2020-10-29 10:47 | Progress Note ---
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] Neurology recommend KELLY TTE ejection fraction 35 to 40%, no PFO CHF (congestive heart failure) acute vs acute on chronic LV ejection fraction 35 to 40% Optimize medications, diuretics beta-blockers Input output monitoring, low-sodium diet and fluid restriction --Pneumonia Complete antibiotics and DC COVID-19 test negative Covid PCR negative Acute hypoxemic respiratory failure Improved, home O2 evaluation prior to discharge DVT prophylaxis SCD to bilateral lower extremities while in bed, prophylactic anticoagulation Discharge care planning Acute rehab consult requested Second alternative is subacute rehab Plan of care reviewed with the patient his nurse and the case management Acute rehab placement, possible discharge in 1 to 2 days if stable Consults and recommendations noted Plan of care reviewed with the patient and his nurse Brief history 70 YO Male with HTN, Hypothyroidism presents to ED for evaluation. Patient is confused with diminished cognition and is unable to provide history at the time my evaluation. Patient history provided by EMS staff, ED staff, as well as the patient's son who is available by telephone and provides history. As per son the patient had experienced increased confusion and increased weakness over the past 2 days with progressively worsening symptoms over the same timeframe. Patient son acknowledges decreased exercise tolerance, shortness of breath on exertion, increased bedbound status, and decreased oral intake. Patient transported to [facility] via private vehicle for further care and evaluation of this aforementioned symptoms. The patient was seen and evaluated in the emergency department. All lab and imaging studies reviewed. The patient was found to have a neurologic deficits and clinical symptoms consistent with CVA. A code stroke was Called upon arrival to the ED. The patient was initiated on CVA protocol. Teleneurology was consulted. Patient also found to have clinical symptoms consistent with CHF as well as bilateral pneumonia. The patient was also found to have a pulse oximetry of 89% on room air which is consistent with acute hypoxemic respiratory failure. The patient was treated with supplemental oxygen with improvement in symptoms. Patient admitted to medical floor and initiated on coronavirus protocol, pneumonia protocol, as well as CHF protocol. Cardiology team consulted in ED. No further history is obtainable. Patient has diminished cognition at the time of my evaluation but has a positive gag reflex and is able to protect his airway without difficulty. Advanced care planning conducted in ED. 10/24/2020 Acute CVA with right hemiparesis PT and OT 10/25/2020 Acute CVA with right hemiplegia Rehab consult requested Ejection fraction is 35 to 40% 10/26/2020 patient with acute CVA and right-sided hemiparesis PT evaluated the patient and recommended acute rehab Case management processing the request Possible discharge in 1 to 2 days if stable 10/27/2020; patient is clinically stable, awaiting rehab/SNF placement DC planning per Case management. 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 No new complain. Clinically stable Patient is going for KELLY today. DC planning to rehab/SNF when cleared by neurology. DC planning per case management 10/29/20 patient is doing slightly better. No new complain. Clinically stable, continue physical therapy occupational therapy. Patient is going for KELLY on Sunday. DC planning to rehab/SNF after KELLY on Sunday. DC planning per case management History Interval history: Patient is seen and examined. Patient chart and medication reviewed Patient is doing okay. No new complain Patient is going for KELLY on Sunday Awaiting placement after KELLY on Sunday. Vital signs noted Hospitalist Physical - Constitutional Vitals: Temp Pulse Resp BP Pulse Ox 97.4 F L 63 20 117/70 95 10/29/20 05:15 10/29/20 10:45 10/29/20 05:15 10/29/20 10:45 10/29/20 05:15 General appearance: Present: no acute distress, well-nourished, disheveled HEART Score - HEART Score Troponin: Troponin T 0.026 ng/mL (0.00-0.029) 10/23/20 16:39 Results - Labs CBC & Chem 7: 10/23/20 13:32 10/28/20 05:25 Labs: Laboratory Last Values WBC 5.4 K/mm3 (4.5-11.0) 10/23/20 13:32 RBC 5.00 M/mm3 (3.65-5.03) 10/23/20 13:32 Hgb 14.3 gm/dl (11.8-15.2) 10/23/20 13:32 Hct 42.7 % (35.5-45.6) 10/23/20 13:32 MCV 85 fl (84-94) 10/23/20 13:32 MCH 29 pg (28-32) 10/23/20 13:32 MCHC 34 % (32-34) 10/23/20 13:32 RDW 13.8 % (13.2-15.2) 10/23/20 13:32 Plt Count 237 K/mm3 (140-440) 10/23/20 13:32 Lymph % (Auto) 27.8 % (13.4-35.0) 10/23/20 13:32 [place] % (Auto) 6.0 % (0.0-7.3) 10/23/20 13:32 Eos % (Auto) 1.6 % (0.0-4.3) 10/23/20 13:32 Baso % (Auto) 0.7 % (0.0-1.8) 10/23/20 13:32 Lymph # (Auto) 1.5 K/mm3 (1.2-5.4) 10/23/20 13:32 [place] # (Auto) 0.3 K/mm3 (0.0-0.8) 10/23/20 13:32 Eos # (Auto) 0.1 K/mm3 (0.0-0.4) 10/23/20 13:32 Baso # (Auto) 0.0 K/mm3 (0.0-0.1) 10/23/20 13:32 Seg Neutrophils % 63.9 % (40.0-70.0) 10/23/20 13:32 Seg Neutrophils # 3.4 K/mm3 (1.8-7.7) 10/23/20 13:32 PT 13.2 Sec. (12.2-14.9) 10/23/20 13:32 INR 1.01 (0.87-1.13) 10/23/20 13:32 APTT 29.9 Sec. (24.2-36.6) 10/23/20 13:32 D-Dimer 4139.61 ng/mlDDU (0-234) H 10/23/20 18:23 Sodium 137 mmol/L (137-145) 10/28/20 05:25 Potassium 4.1 mmol/L (3.6-5.0) 10/28/20 05:25 Chloride 102.0 mmol/L (98-107) 10/28/20 05:25 Carbon Dioxide 26 mmol/L (22-30) 10/28/20 05:25 Anion Gap 13 mmol/L 10/28/20 05:25 BUN 28 mg/dL (9-20) H 10/28/20 05:25 Creatinine 1.0 mg/dL (0.8-1.3) 10/28/20 05:25 Estimated GFR > 60 ml/min 10/28/20 05:25 BUN/Creatinine Ratio 28 % 10/28/20 05:25 Glucose 110 mg/dL (75-100) H 10/28/20 05:25 POC Glucose 85 mg/dL (70-105) 10/23/20 17:00 Calcium 8.2 mg/dL (8.4-10.2) L 10/28/20 05:25 Magnesium 2.20 mg/dL (1.7-2.3) 10/23/20 20:33 Ferritin 238.5 ng/mL (30.0-300.0) 10/23/20 18:23 Total Bilirubin 0.80 mg/dL (0.1-1.2) 10/23/20 13:32 AST 13 units/L (5-40) 10/23/20 13:32 ALT 13 units/L (7-56) 10/23/20 13:32 Alkaline Phosphatase 67 units/L (35-129) 10/23/20 13:32 Lactate Dehydrogenase 334 units/L (91-180) H 10/23/20 18:23 Troponin T 0.026 ng/mL (0.00-0.029) 10/23/20 16:39 C-Reactive Protein 2.50 mg/dL (0.00-1.30) H 10/23/20 18:23 NT-Pro-B Natriuret Pep 5806 pg/mL (0-900) H 10/23/20 13:32 Total Protein 7.3 g/dL (6.3-8.2) 10/23/20 13:32 Albumin 4.1 g/dL (3.9-5) 10/23/20 13:32 Albumin/Globulin Ratio 1.3 % 10/23/20 13:32 Triglycerides 60 mg/dL (2-149) 10/24/20 09:29 Cholesterol 139 mg/dL (50-199) 10/24/20 09:29 LDL Cholesterol Direct 87 mg/dL (50-130) 10/24/20 09:29 HDL Cholesterol 46 mg/dL (40-59) 10/24/20 09:29 Cholesterol/HDL Ratio 3.02 % 10/24/20 09:29 Procalcitonin < 0.05 ng/mL (<0.15) 10/23/20 18:23 TSH 6.540 mlU/mL (0.270-4.200) H 10/23/20 18: TSH 7.100 mlU/mL (0.270-4.200) H 10/23/20 18: Free T4 1.33 ng/dL (0.76-1.46) 10/23/20 18:23 Coronavirus (PCR) Negative (Negative) 10/24/20 09:57 Winkler/IV: Voiding Method Urinal Active Medications - Current Medications Current Medications: Generic Name Dose Route Start Last Admin Trade Name Freq PRN Reason Stop Dose Admin Acetaminophen 650 mg 10/23/20 20:00 Acetaminophen 325 Mg Tab PO Q4H PRN Pain, Mild (1-3) Ascorbic Acid 500 mg 10/23/20 22:00 10/29/20 10:35 Ascorbic Acid 500 Mg Tab PO 500 mg BID ALEX Administration Aspirin 325 mg 10/24/20 10:00 10/29/20 10:35 Aspirin 325 Mg Tab PO 325 mg QDAY ALEX Administration Atorvastatin Calcium 40 mg 10/23/20 22:00 10/28/20 22:36 Atorvastatin 40 Mg Tab PO 40 mg QHS ALEX Administration Bisacodyl 10 mg 10/23/20 20:00 Bisacodyl 10 Mg Rect Supp LA QDAY PRN Constipation Cholecalciferol 1,000 unit 10/24/20 10:00 10/29/20 10:35 Cholecalciferol (Vit D3) 1000 Unit (25 Mcg) Tab PO 1,000 unit QDAY ALEX Administration Heparin Sodium (Porcine) 5,000 unit 10/23/20 22:00 10/29/20 10:36 Heparin 5,000 Unit/1 Ml Vial SUB-Q 5,000 unit Q12HR ALEX Administration Lisinopril 5 mg 10/27/20 08:27 10/29/20 10:45 Lisinopril 5 Mg Tab PO Not Given QDAY ALEX Magnesium Hydroxide 30 ml 10/23/20 20:00 Magnesium Hydroxide (Mom) Oral Liqd Udc PO Q4H PRN Constipation Methylprednisolone Sodium Succinate 40 mg 10/23/20 22:00 10/29/20 05:47 Methylprednisolone Sod Succinate 40 Mg/1 Ml Inj IV 40 mg Q8HR ALEX Administration Metoclopramide HCl 10 mg 10/23/20 20:00 Metoclopramide 10 Mg Tab PO Q6H PRN Nausea And Vomiting Metoprolol Tartrate 6.25 mg 10/27/20 10:00 10/29/20 10:45 Metoprolol Tartrate 25 Mg Tab PO Not Given BID ALEX Ondansetron HCl 4 mg 10/23/20 20:00 Ondansetron 4 Mg/2 Ml Inj IV Q8H PRN Nausea And Vomiting Promethazine HCl 25 mg 10/23/20 20:00 Promethazine 25 Mg Rect Supp LA Q6H PRN Nausea And Vomiting Sodium Chloride 10 ml 10/23/20 20:00 10/28/20 22:36 Sodium Chloride 0.9% 10 Ml Flush Syringe IV 10 ml PRN PRN Administration LINE FLUSH Zinc Sulfate 220 mg 10/23/20 22:00 10/29/20 10:35 Zinc Sulfate 220 Mg Cap PO 220 mg BID ALEX Administration Nutrition/Malnutrition Assess - Dietary Evaluation Nutrition/Malnutrition Findings: Nutrition Notes Start: 10/24/20 11:33 Freq: Status: Active Protocol: Document 10/26/20 11:12 AL (Rec: 10/26/20 11:26 AL [id number]) Co-Sign 10/26/20 11:12 Nutrition Notes Initial or Follow up Reassessment Current Diagnosis Hypertension,Heart Failure, Respiratory Failure Other Pertinent Diagnosis suspected CVA, pneu Current Diet Regular Diet with thin liquids Labs/Tests BUN 30 BG 120 Pertinent Medications Solumedrol Height 5 ft 11 in Weight 89.5 kg [place] Body Weight (kg) 78.18 BMI 27.5 Intake Prior to Admission Poor Weight Status Overweight Subjective/Other Information F/U fo diet advancement. Pt. now on Regular diet with thin liquids. Pt states drinking Ensure Enlive BID. Diet and ONS well-tolerated. Breakfast this morning was tolerated at 90% Percent of energy/protein needs met: 138%/132% Burn Absent Trauma Absent Current % PO Good (75-100%) Minimum of two criteria No physical signs of malnutrition #1 Nutrition Diagnosis Predicted suboptimal energy intake As Evidenced by Signs and Symptoms Pt ate 90% of breakfast and tolerates Ensure Enlive BID. Diagnosis Progress(for reassessment Resolved documentation) Is patient on ventilator? No Is Patient Ambulatory and/or Out of Bed No REE-([facility]-confined to bed) 2018.196 Additional Notes Protein needs: 89 - 107g (1 - 1.2g/kgBW) fluid needs: 1 ml/kcal Nutrition Intervention Change Diet Order: Curent diet as ordered Add Supplement/Snack (indicate name/kcal d/c Ensure Enlive /protein ) Goal #1 Meet at least 75% of estimated energy and protein needs via PO Anticipated Discharge Needs: Cardiac Diet Revisit per MD consult or patient Sign Off request: - Malnutrition Assessment Minimum of two criteria: No - Attestation Statement I have reviewed and agreed w/ Malnutrition eval & tx plan: Yes
--- NOTE | 2020-10-29 11:15 | Progress Note ---
Assessment and Plan Acute CVA MRI reviewed (10/23/2020): Acute infarction in the left middle cerebral artery distribution. Telemetry reviewed: Sinus rhythm 67 several episodes of 3-6 beat V. tach noted overnight. KELLY planned for Sunday morning (11/01/2020) 11:[address] Nehal Taylor. This may be performed as an outpatient at discretion of primary team. Cardiomyopathy Echocardiogram reviewed as above EF is 35 to 40%. Patient is on appropriate meds including beta-chang, NAEL inhibitor, statin, ASA. We will plan for ischemic work-up for new diagnosis of cardiomyopathy. This may be pursued in the outpatient setting. Left bundle branch block Onset date is unknown. 12-lead reviewed no ST segment elevation. Troponins are negative x2. AMI ruled out. Elevated D-dimer Further work-up per primary team Hypothyroidism TSH is noted to be elevated. Management per primary team Covid PUI Covid PCR is negative DVT prophylaxis Heparin SQ Patient is currently in stable cardiac status. We will plan for KELLY Sunday and outpatient ischemic work-up. Nothing further to add from cardiac standpoint. We will follow on as-needed basis over the weekend. This patient was seen in conjunction with Dr Salvador who agrees with this assessment and plan of care. - Patient Problems (1) LBBB (left bundle branch block) Current Visit: Yes Status: Acute (2) Acute CVA (cerebrovascular accident) Current Visit: Yes Status: Acute (3) Cardiomyopathy Current Visit: Yes Status: Acute (4) Suspected 2019 novel coronavirus infection Current Visit: Yes Status: Acute (5) Hypothyroidism Current Visit: Yes Status: Acute Subjective Date of service: 10/29/20 Principal diagnosis: Chest Pain Interval history: Patient resting comfortably in bed. No shortness of breath or chest pain overnight. Telemetry reviewed: Sinus rhythm 67 several episodes of 3-6 beat V. tach noted overnight. Objective Last Vital Signs Temp 97.4 F L 10/29/20 05:15 Pulse 63 10/29/20 10:45 Resp 20 10/29/20 05:15 BP 117/70 10/29/20 10:45 Pulse Ox 97 10/29/20 07:25 - Physical Examination General: No Apparent Distress, Other (Patient is pleasantly confused) HEENT: Positive: PERRL, Mucus Membranes Moist Neck: Positive: neck supple, trachea midline, thyromegaly Cardiac: Positive: Reg Rate and Rhythm, S1/S2 Lungs: Positive: clear to auscultation, Normal Breath Sounds Neuro: Positive: Other (Right-sided weakness aphasic partially) Abdomen: Positive: Soft, Active Bowel Sounds. Negative: Tender, Distended Skin: Positive: Clear Incision: Cardiac Cath Site Musculoskeletal: No Pain, Normal Range of Motion Extremities: Present: upper extr. pulses, lower extr. pulses. Absent: edema - Imaging and Cardiology EKG: report reviewed, image reviewed Echo: report reviewed - Telemetry EKG Rhythm: Sinus Rhythm - EKG Sinus rhythms and dysrhythmias: sinus rhythm
[2020-10-29] MEDS: MAGNESIUM HYDROXIDE (MOM) ORAL LIQD UDC PO PRN (15:01)
--- NOTE | 2020-10-29 18:44 | Electrocardiograph Report ---
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
[2020-10-30] MEDS: methylPREDNISolone Sod Succinate 40 MG/1 ML INJ IV SCH ×3 (05:56→21:55)
[2020-10-30] MEDS: HEPARIN 5,000 UNIT/1 ML VIAL SUB-Q SCH ×2 (09:51→21:54)
[2020-10-30] MEDS: METOPROLOL TARTRATE 25 MG TAB PO SCH ×2 (09:51→21:55)
[2020-10-30] MEDS: ZINC SULFATE 220 MG CAP PO SCH ×2 (09:52→21:54)
[2020-10-30] MEDS: CHOLECALCIFEROL (VIT D3) 1000 UNIT (25 mcg) TAB PO SCH (09:52)
[2020-10-30] MEDS: ASPIRIN 325 MG TAB PO SCH (09:52)
[2020-10-30] MEDS: LISINOPRIL 5 MG TAB PO SCH (09:52)
[2020-10-30] MEDS: ASCORBIC ACID 500 MG TAB PO SCH ×2 (09:52→21:54)
--- NOTE | 2020-10-30 09:56 | Progress Note ---
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] Neurology recommend KELLY TTE ejection fraction 35 to 40%, no PFO CHF (congestive heart failure) acute vs acute on chronic LV ejection fraction 35 to 40% Optimize medications, diuretics beta-blockers Input output monitoring, low-sodium diet and fluid restriction --Pneumonia Complete antibiotics and DC COVID-19 test negative Covid PCR negative Acute hypoxemic respiratory failure Improved, home O2 evaluation prior to discharge DVT prophylaxis SCD to bilateral lower extremities while in bed, prophylactic anticoagulation Discharge care planning Acute rehab consult requested Second alternative is subacute rehab Plan of care reviewed with the patient his nurse and the case management Acute rehab placement, possible discharge in 1 to 2 days if stable Consults and recommendations noted Plan of care reviewed with the patient and his nurse Brief history 70 YO Male with HTN, Hypothyroidism presents to ED for evaluation. Patient is confused with diminished cognition and is unable to provide history at the time my evaluation. Patient history provided by EMS staff, ED staff, as well as the patient's son who is available by telephone and provides history. As per son the patient had experienced increased confusion and increased weakness over the past 2 days with progressively worsening symptoms over the same timeframe. Patient son acknowledges decreased exercise tolerance, shortness of breath on exertion, increased bedbound status, and decreased oral intake. Patient transported to [facility] via private vehicle for further care and evaluation of this aforementioned symptoms. The patient was seen and evaluated in the emergency department. All lab and imaging studies reviewed. The patient was found to have a neurologic deficits and clinical symptoms consistent with CVA. A code stroke was Called upon arrival to the ED. The patient was initiated on CVA protocol. Teleneurology was consulted. Patient also found to have clinical symptoms consistent with CHF as well as bilateral pneumonia. The patient was also found to have a pulse oximetry of 89% on room air which is consistent with acute hypoxemic respiratory failure. The patient was treated with supplemental oxygen with improvement in symptoms. Patient admitted to medical floor and initiated on coronavirus protocol, pneumonia protocol, as well as CHF protocol. Cardiology team consulted in ED. No further history is obtainable. Patient has diminished cognition at the time of my evaluation but has a positive gag reflex and is able to protect his airway without difficulty. Advanced care planning conducted in ED. 10/24/2020 Acute CVA with right hemiparesis PT and OT 10/25/2020 Acute CVA with right hemiplegia Rehab consult requested Ejection fraction is 35 to 40% 10/26/2020 patient with acute CVA and right-sided hemiparesis PT evaluated the patient and recommended acute rehab Case management processing the request Possible discharge in 1 to 2 days if stable 10/27/2020; patient is clinically stable, awaiting rehab/SNF placement DC planning per Case management. 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 No new complain. Clinically stable Patient is going for KELLY today. DC planning to rehab/SNF when cleared by neurology. DC planning per case management 10/29/20 patient is doing slightly better. No new complain. Clinically stable, continue physical therapy occupational therapy. Patient is going for KELLY on Sunday. DC planning to rehab/SNF after KELLY on Sunday. DC planning per case management 10/30/20 patient is sitting in chair. No new complain. Clinically stable, continue physical therapy occupational therapy. Patient is going for KELLY on Sunday. Awaiting DC planning to rehab/SNF after KELLY on Sunday. History Interval history: Patient is seen and examined. Patient is doing okay. No new complain Patient is going for KELLY on Sunday Awaiting placement after KELLY on Sunday. Vital signs noted Hospitalist Physical - Constitutional Vitals: Temp Pulse Resp BP Pulse Ox 98.2 F 61 16 136/94 99 10/30/20 05:56 10/30/20 05:56 10/30/20 05:56 10/30/20 05:56 10/30/20 08:25 General appearance: Present: no acute distress, well-nourished, disheveled - EENT Eyes: Present: PERRL, EOM intact ENT: hearing intact - Neck Neck: Present: supple, normal ROM - Respiratory Respiratory effort: normal Respiratory: bilateral: CTA - Cardiovascular Rhythm: regular Heart Sounds: Present: S1 & S2 - Extremities Extremities: no ischemia Peripheral Pulses: within normal limits - Abdominal General gastrointestinal: soft, non-tender, non-distended - Integumentary Integumentary: Present: warm, dry - Psychiatric Psychiatric: appropriate mood/affect - Neurologic Neurologic: CNII-XII intact, moves all extremities HEART Score - HEART Score Troponin: Troponin T 0.026 ng/mL (0.00-0.029) 10/23/20 16:39 Results - Labs CBC & Chem 7: 10/23/20 13:32 10/28/20 05:25 Labs: Laboratory Last Values WBC 5.4 K/mm3 (4.5-11.0) 10/23/20 13:32 RBC 5.00 M/mm3 (3.65-5.03) 10/23/20 13:32 Hgb 14.3 gm/dl (11.8-15.2) 10/23/20 13:32 Hct 42.7 % (35.5-45.6) 10/23/20 13:32 MCV 85 fl (84-94) 10/23/20 13:32 MCH 29 pg (28-32) 10/23/20 13:32 MCHC 34 % (32-34) 10/23/20 13:32 RDW 13.8 % (13.2-15.2) 10/23/20 13:32 Plt Count 237 K/mm3 (140-440) 10/23/20 13:32 Lymph % (Auto) 27.8 % (13.4-35.0) 10/23/20 13:32 [place] % (Auto) 6.0 % (0.0-7.3) 10/23/20 13:32 Eos % (Auto) 1.6 % (0.0-4.3) 10/23/20 13:32 Baso % (Auto) 0.7 % (0.0-1.8) 10/23/20 13:32 Lymph # (Auto) 1.5 K/mm3 (1.2-5.4) 10/23/20 13:32 [place] # (Auto) 0.3 K/mm3 (0.0-0.8) 10/23/20 13:32 Eos # (Auto) 0.1 K/mm3 (0.0-0.4) 10/23/20 13:32 Baso # (Auto) 0.0 K/mm3 (0.0-0.1) 10/23/20 13:32 Seg Neutrophils % 63.9 % (40.0-70.0) 10/23/20 13:32 Seg Neutrophils # 3.4 K/mm3 (1.8-7.7) 10/23/20 13:32 PT 13.2 Sec. (12.2-14.9) 10/23/20 13:32 INR 1.01 (0.87-1.13) 10/23/20 13:32 APTT 29.9 Sec. (24.2-36.6) 10/23/20 13:32 D-Dimer 4139.61 ng/mlDDU (0-234) H 10/23/20 18:23 Sodium 137 mmol/L (137-145) 10/28/20 05:25 Potassium 4.1 mmol/L (3.6-5.0) 10/28/20 05:25 Chloride 102.0 mmol/L (98-107) 10/28/20 05:25 Carbon Dioxide 26 mmol/L (22-30) 10/28/20 05:25 Anion Gap 13 mmol/L 10/28/20 05:25 BUN 28 mg/dL (9-20) H 10/28/20 05:25 Creatinine 1.0 mg/dL (0.8-1.3) 10/28/20 05:25 Estimated GFR > 60 ml/min 10/28/20 05:25 BUN/Creatinine Ratio 28 % 10/28/20 05:25 Glucose 110 mg/dL (75-100) H 10/28/20 05:25 POC Glucose 85 mg/dL (70-105) 10/23/20 17:00 Calcium 8.2 mg/dL (8.4-10.2) L 10/28/20 05:25 Magnesium 2.20 mg/dL (1.7-2.3) 10/23/20 20:33 Ferritin 238.5 ng/mL (30.0-300.0) 10/23/20 18:23 Total Bilirubin 0.80 mg/dL (0.1-1.2) 10/23/20 13:32 AST 13 units/L (5-40) 10/23/20 13:32 ALT 13 units/L (7-56) 10/23/20 13:32 Alkaline Phosphatase 67 units/L (35-129) 10/23/20 13:32 Lactate Dehydrogenase 334 units/L (91-180) H 10/23/20 18:23 Troponin T 0.026 ng/mL (0.00-0.029) 10/23/20 16:39 C-Reactive Protein 2.50 mg/dL (0.00-1.30) H 10/23/20 18:23 NT-Pro-B Natriuret Pep 5806 pg/mL (0-900) H 10/23/20 13:32 Total Protein 7.3 g/dL (6.3-8.2) 10/23/20 13:32 Albumin 4.1 g/dL (3.9-5) 10/23/20 13:32 Albumin/Globulin Ratio 1.3 % 10/23/20 13:32 Triglycerides 60 mg/dL (2-149) 10/24/20 09:29 Cholesterol 139 mg/dL (50-199) 10/24/20 09:29 LDL Cholesterol Direct 87 mg/dL (50-130) 10/24/20 09:29 HDL Cholesterol 46 mg/dL (40-59) 10/24/20 09:29 Cholesterol/HDL Ratio 3.02 % 10/24/20 09:29 Procalcitonin < 0.05 ng/mL (<0.15) 10/23/20 18:23 TSH 6.540 mlU/mL (0.270-4.200) H 10/23/20 18:23 TSH 7.100 mlU/mL (0.270-4.200) H 10/23/20 18:23 Free T4 1.33 ng/dL (0.76-1.46) 10/23/20 18:23 Coronavirus (PCR) Negative (Negative) 10/24/20 09:57 Winkler/IV: Voiding Method Urinal Active Medications - Current Medications Current Medications: Generic Name Dose Route Start Last Admin Trade Name Freq PRN Reason Stop Dose Admin Acetaminophen 650 mg 10/23/20 20:00 Acetaminophen 325 Mg Tab PO Q4H PRN Pain, Mild (1-3) Ascorbic Acid 500 mg 10/23/20 22:00 10/30/20 09:52 Ascorbic Acid 500 Mg Tab PO 500 mg BID ALEX Administration Aspirin 325 mg 10/24/20 10:00 10/30/20 09:52 Aspirin 325 Mg Tab PO 325 mg QDAY ALEX Administration Atorvastatin Calcium 40 mg 10/23/20 22:00 10/29/20 21:46 Atorvastatin 40 Mg Tab PO 40 mg QHS ALEX Administration Bisacodyl 10 mg 10/23/20 20:00 Bisacodyl 10 Mg Rect Supp ID QDAY PRN Constipation Cholecalciferol 1,000 unit 10/24/20 10:00 10/30/20 09:52 Cholecalciferol (Vit D3) 1000 Unit (25 Mcg) Tab PO 1,000 unit QDAY ALEX Administration Heparin Sodium (Porcine) 5,000 unit 10/23/20 22:00 10/30/20 09:51 Heparin 5,000 Unit/1 Ml Vial SUB-Q 5,000 unit Q12HR ALEX Administration Lisinopril 5 mg 10/27/20 08:27 10/30/20 09:52 Lisinopril 5 Mg Tab PO 5 mg QDAY ALEX Administration Magnesium Hydroxide 30 ml 10/23/20 20:00 10/29/20 15:01 Magnesium Hydroxide (Mom) Oral Liqd Udc PO 30 ml Q4H PRN Administration Constipation Methylprednisolone Sodium Succinate 40 mg 10/23/20 22:00 10/30/20 05:56 Methylprednisolone Sod Succinate 40 Mg/1 Ml Inj IV 40 mg Q8HR ALEX Administration Metoclopramide HCl 10 mg 10/23/20 20:00 Metoclopramide 10 Mg Tab PO Q6H PRN Nausea And Vomiting Metoprolol Tartrate 6.25 mg 10/27/20 10:00 10/30/20 09:51 Metoprolol Tartrate 25 Mg Tab PO 6.25 mg BID ALEX Administration Ondansetron HCl 4 mg 10/23/20 20:00 Ondansetron 4 Mg/2 Ml Inj IV Q8H PRN Nausea And Vomiting Promethazine HCl 25 mg 10/23/20 20:00 Promethazine 25 Mg Rect Supp ID Q6H PRN Nausea And Vomiting Sodium Chloride 10 ml 10/23/20 20:00 10/28/20 22:36 Sodium Chloride 0.9% 10 Ml Flush Syringe IV 10 ml PRN PRN Administration LINE FLUSH Zinc Sulfate 220 mg 10/23/20 22:00 10/30/20 09:52 Zinc Sulfate 220 Mg Cap PO 220 mg BID ALEX Administration Nutrition/Malnutrition Assess - Dietary Evaluation Nutrition/Malnutrition Findings: Nutrition Notes Start: 10/24/20 11:33 Freq: Status: Active Protocol: Document 10/26/20 11:12 AL (Rec: 10/26/20 11:26 AL [id number]) Co-Sign 10/26/20 11:12 MK Nutrition Notes Initial or Follow up Reassessment Current Diagnosis Hypertension,Heart Failure, Respiratory Failure Other Pertinent Diagnosis suspected CVA, pneu Current Diet Regular Diet with thin liquids Labs/Tests BUN 30 BG 120 Pertinent Medications Solumedrol Height 5 ft 11 in Weight 89.5 kg [place] Body Weight (kg) 78.18 BMI 27.5 Intake Prior to Admission Poor Weight Status Overweight Subjective/Other Information F/U fo diet advancement. Pt. now on Regular diet with thin liquids. Pt states drinking Ensure Enlive BID. Diet and ONS well-tolerated. Breakfast this morning was tolerated at 90% Percent of energy/protein needs met: 138%/132% Burn Absent Trauma Absent Current % PO Good (75-100%) Minimum of two criteria No physical signs of malnutrition #1 Nutrition Diagnosis Predicted suboptimal energy intake As Evidenced by Signs and Symptoms Pt ate 90% of breakfast and tolerates Ensure Enlive BID. Diagnosis Progress(for reassessment Resolved documentation) Is patient on ventilator? No Is Patient Ambulatory and/or Out of Bed No REE-([facility]-confined to bed) 2018.196 Additional Notes Protein needs: 89 - 107g (1 - 1.2g/kgBW) fluid needs: 1 ml/kcal Nutrition Intervention Change Diet Order: Curent diet as ordered Add Supplement/Snack (indicate name/kcal d/c Ensure Enlive /protein ) Goal #1 Meet at least 75% of estimated energy and protein needs via PO Anticipated Discharge Needs: Cardiac Diet Revisit per MD consult or patient Sign Off request: - Malnutrition Assessment Minimum of two criteria: No physical signs of malnutrition - Attestation Statement I have reviewed and agreed w/ Malnutrition eval & tx plan: Yes
[2020-10-31] MEDS: methylPREDNISolone Sod Succinate 40 MG/1 ML INJ IV SCH ×3 (05:53→21:59)
--- NOTE | 2020-10-31 09:43 | Progress Note ---
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] Neurology recommend KELLY TTE ejection fraction 35 to 40%, no PFO CHF (congestive heart failure) acute vs acute on chronic LV ejection fraction 35 to 40% Optimize medications, diuretics beta-blockers Input output monitoring, low-sodium diet and fluid restriction --Pneumonia Complete antibiotics and DC COVID-19 test negative Covid PCR negative Acute hypoxemic respiratory failure Improved, home O2 evaluation prior to discharge DVT prophylaxis SCD to bilateral lower extremities while in bed, prophylactic anticoagulation Discharge care planning Acute rehab consult requested Second alternative is subacute rehab Plan of care reviewed with the patient his nurse and the case management Acute rehab placement, possible discharge in 1 to 2 days if stable Consults and recommendations noted Plan of care reviewed with the patient and his nurse Brief history 70 YO Male with HTN, Hypothyroidism presents to ED for evaluation. Patient is confused with diminished cognition and is unable to provide history at the time my evaluation. Patient history provided by EMS staff, ED staff, as well as the patient's son who is available by telephone and provides history. As per son the patient had experienced increased confusion and increased weakness over the past 2 days with progressively worsening symptoms over the same timeframe. Patient son acknowledges decreased exercise tolerance, shortness of breath on exertion, increased bedbound status, and decreased oral intake. Patient transported to [facility] via private vehicle for further care and evaluation of this aforementioned symptoms. The patient was seen and evaluated in the emergency department. All lab and imaging studies reviewed. The patient was found to have a neurologic deficits and clinical symptoms consistent with CVA. A code stroke was Called upon arrival to the ED. The patient was initiated on CVA protocol. Teleneurology was consulted. Patient also found to have clinical symptoms consistent with CHF as well as bilateral pneumonia. The patient was also found to have a pulse oximetry of 89% on room air which is consistent with acute hypoxemic respiratory failure. The patient was treated with supplemental oxygen with improvement in symptoms. Patient admitted to medical floor and initiated on coronavirus protocol, pneumonia protocol, as well as CHF protocol. Cardiology team consulted in ED. No further history is obtainable. Patient has diminished cognition at the time of my evaluation but has a positive gag reflex and is able to protect his airway without difficulty. Advanced care planning conducted in ED. 10/24/2020 Acute CVA with right hemiparesis PT and OT 10/25/2020 Acute CVA with right hemiplegia Rehab consult requested Ejection fraction is 35 to 40% 10/26/2020 patient with acute CVA and right-sided hemiparesis PT evaluated the patient and recommended acute rehab Case management processing the request Possible discharge in 1 to 2 days if stable 10/27/2020; patient is clinically stable, awaiting rehab/SNF placement DC planning per Case management. 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 No new complain. Clinically stable Patient is going for KELLY today. DC planning to rehab/SNF when cleared by neurology. DC planning per case management 10/29/20 patient is doing slightly better. No new complain. Clinically stable, continue physical therapy occupational therapy. Patient is going for KELLY on Sunday. DC planning to rehab/SNF after KELLY on Sunday. DC planning per case management 10/30/20 patient is sitting in chair. No new complain. Clinically stable, continue physical therapy occupational therapy. Patient is going for KELLY on Sunday. Awaiting DC planning to rehab/SNF after KELLY on Sunday. 10/31/20 patient is seen and examined. No new complain. Clinically stable, continue physical therapy occupational therapy. Patient is going for KELLY on Sunday. Awaiting DC planning to rehab/SNF after KELLY on Sunday. History Interval history: Patient is seen and examined. Patient chart and medication reviewed No new complain Patient is going for KELLY on Sunday Awaiting placement after KELLY on Sunday. Vital signs noted Hospitalist Physical - Constitutional Vitals: Temp Pulse Resp BP Pulse Ox 98.4 F 63 18 130/75 97 10/31/20 06:35 10/31/20 06:35 10/31/20 06:35 10/31/20 06:35 10/30/20 16:00 General appearance: Present: no acute distress, well-nourished, disheveled - EENT Eyes: Present: PERRL, EOM intact ENT: hearing intact, clear oral mucosa - Neck Neck: Present: supple - Respiratory Respiratory effort: normal Respiratory: bilateral: CTA - Cardiovascular Rhythm: regular Heart Sounds: Present: S1 & S2 - Extremities Extremities: no ischemia Peripheral Pulses: within normal limits - Abdominal General gastrointestinal: soft, non-tender, non-distended, normal bowel sounds - Psychiatric Psychiatric: appropriate mood/affect, intact judgment & insight - Neurologic Neurologic: CNII-XII intact, moves all extremities HEART Score - HEART Score Troponin: Troponin T 0.026 ng/mL (0.00-0.029) 10/23/20 16:39 Results - Labs CBC & Chem 7: 10/23/20 13:32 10/28/20 05:25 Labs: Laboratory Last Values WBC 5.4 K/mm3 (4.5-11.0) 10/23/20 13:32 RBC 5.00 M/mm3 (3.65-5.03) 10/23/20 13:32 Hgb 14.3 gm/dl (11.8-15.2) 10/23/20 13:32 Hct 42.7 % (35.5-45.6) 10/23/20 13:32 MCV 85 fl (84-94) 10/23/20 13:32 MCH 29 pg (28-32) 10/23/20 13:32 MCHC 34 % (32-34) 10/23/20 13:32 RDW 13.8 % (13.2-15.2) 10/23/20 13:32 Plt Count 237 K/mm3 (140-440) 10/23/20 13:32 Lymph % (Auto) 27.8 % (13.4-35.0) 10/23/20 13:32 [place] % (Auto) 6.0 % (0.0-7.3) 10/23/20 13:32 Eos % (Auto) 1.6 % (0.0-4.3) 10/23/20 13:32 Baso % (Auto) 0.7 % (0.0-1.8) 10/23/20 13:32 Lymph # (Auto) 1.5 K/mm3 (1.2-5.4) 10/23/20 13:32 [place] # (Auto) 0.3 K/mm3 (0.0-0.8) 10/23/20 13:32 Eos # (Auto) 0.1 K/mm3 (0.0-0.4) 10/23/20 13:32 Baso # (Auto) 0.0 K/mm3 (0.0-0.1) 10/23/20 13:32 Seg Neutrophils % 63.9 % (40.0-70.0) 10/23/20 13:32 Seg Neutrophils # 3.4 K/mm3 (1.8-7.7) 10/23/20 13:32 PT 13.2 Sec. (12.2-14.9) 10/23/20 13:32 INR 1.01 (0.87-1.13) 10/23/20 13:32 APTT 29.9 Sec. (24.2-36.6) 10/23/20 13:32 D-Dimer 4139.61 ng/mlDDU (0-234) H 10/23/20 18:23 Sodium 137 mmol/L (137-145) 10/28/20 05:25 Potassium 4.1 mmol/L (3.6-5.0) 10/28/20 05:25 Chloride 102.0 mmol/L (98-107) 10/28/20 05:25 Carbon Dioxide 26 mmol/L (22-30) 10/28/20 05:25 Anion Gap 13 mmol/L 10/28/20 05:25 BUN 28 mg/dL (9-20) H 10/28/20 05:25 Creatinine 1.0 mg/dL (0.8-1.3) 10/28/20 05:25 Estimated GFR > 60 ml/min 10/28/20 05:25 BUN/Creatinine Ratio 28 % 10/28/20 05:25 Glucose 110 mg/dL (75-100) H 10/28/20 05:25 POC Glucose 85 mg/dL (70-105) 10/23/20 17:00 Calcium 8.2 mg/dL (8.4-10.2) L 10/28/20 05:25 Magnesium 2.20 mg/dL (1.7-2.3) 10/23/20 20:33 Ferritin 238.5 ng/mL (30.0-300.0) 10/23/20 18:23 Total Bilirubin 0.80 mg/dL (0.1-1.2) 10/23/20 13:32 AST 13 units/L (5-40) 10/23/20 13:32 ALT 13 units/L (7-56) 10/23/20 13:32 Alkaline Phosphatase 67 units/L (35-129) 10/23/20 13:32 Lactate Dehydrogenase 334 units/L (91-180) H 10/23/20 18:23 Troponin T 0.026 ng/mL (0.00-0.029) 10/23/20 16:39 C-Reactive Protein 2.50 mg/dL (0.00-1.30) H 10/23/20 18:23 NT-Pro-B Natriuret Pep 5806 pg/mL (0-900) H 10/23/20 13:32 Total Protein 7.3 g/dL (6.3-8.2) 10/23/20 13:32 Albumin 4.1 g/dL (3.9-5) 10/23/20 13:32 Albumin/Globulin Ratio 1.3 % 10/23/20 13:32 Triglycerides 60 mg/dL (2-149) 10/24/20 09:29 Cholesterol 139 mg/dL (50-199) 10/24/20 09:29 LDL Cholesterol Direct 87 mg/dL (50-130) 10/24/20 09:29 HDL Cholesterol 46 mg/dL (40-59) 10/24/20 09:29 Cholesterol/HDL Ratio 3.02 % 10/24/20 09:29 Procalcitonin < 0.05 ng/mL (<0.15) 10/23/20 18:23 TSH 6.540 mlU/mL (0.270-4.200) H 10/23/20 18:23 TSH 7.100 mlU/mL (0.270-4.200) H 10/23/20 18:23 Free T4 1.33 ng/dL (0.76-1.46) 10/23/20 18:23 Coronavirus (PCR) Negative (Negative) 10/24/20 09:57 [place]/IV: Voiding Method Toilet Active Medications - Current Medications Current Medications: Generic Name Dose Route Start Last Admin Trade Name Freq PRN Reason Stop Dose Admin Acetaminophen 650 mg 10/23/20 20:00 Acetaminophen 325 Mg Tab PO Q4H PRN Pain, Mild (1-3) Ascorbic Acid 500 mg 10/23/20 22:00 10/30/20 21:54 Ascorbic Acid 500 Mg Tab PO 500 mg BID ALEX Administration Aspirin 325 mg 10/24/20 10:00 10/30/20 09:52 Aspirin 325 Mg Tab PO 325 mg QDAY ALEX Administration Atorvastatin Calcium 40 mg 10/23/20 22:00 10/30/20 21:55 Atorvastatin 40 Mg Tab PO 40 mg QHS ALEX Administration Bisacodyl 10 mg 10/23/20 20:00 Bisacodyl 10 Mg Rect Supp NH QDAY PRN Constipation Cholecalciferol 1,000 unit 10/24/20 10:00 10/30/20 09:52 Cholecalciferol (Vit D3) 1000 Unit (25 Mcg) Tab PO 1,000 unit QDAY ALEX Administration Heparin Sodium (Porcine) 5,000 unit 10/23/20 22:00 10/30/20 21:54 Heparin 5,000 Unit/1 Ml Vial SUB-Q 5,000 unit Q12HR ALEX Administration Lisinopril 5 mg 10/27/20 08:27 10/30/20 09:52 Lisinopril 5 Mg Tab PO 5 mg QDAY ALEX Administration Magnesium Hydroxide 30 ml 10/23/20 20:00 10/29/20 15:01 Magnesium Hydroxide (Mom) Oral Liqd Udc PO 30 ml Q4H PRN Administration Constipation Methylprednisolone Sodium Succinate 40 mg 10/23/20 22:00 10/31/20 05:53 Methylprednisolone Sod Succinate 40 Mg/1 Ml Inj IV 40 mg Q8HR ALEX Administration Metoclopramide HCl 10 mg 10/23/20 20:00 Metoclopramide 10 Mg Tab PO Q6H PRN Nausea And Vomiting Metoprolol Tartrate 6.25 mg 10/27/20 10:00 10/30/20 21:55 Metoprolol Tartrate 25 Mg Tab PO 6.25 mg BID ALEX Administration Ondansetron HCl 4 mg 10/23/20 20:00 Ondansetron 4 Mg/2 Ml Inj IV Q8H PRN Nausea And Vomiting Promethazine HCl 25 mg 10/23/20 20:00 Promethazine 25 Mg Rect Supp NH Q6H PRN Nausea And Vomiting Sodium Chloride 10 ml 10/23/20 20:00 10/28/20 22:36 Sodium Chloride 0.9% 10 Ml Flush Syringe IV 10 ml PRN PRN Administration LINE FLUSH Zinc Sulfate 220 mg 10/23/20 22:00 10/30/20 21:54 Zinc Sulfate 220 Mg Cap PO 220 mg BID ALEX Administration Nutrition/Malnutrition Assess - Dietary Evaluation Nutrition/Malnutrition Findings: Nutrition Notes Start: 10/24/20 11:33 Freq: Status: Active Protocol: Document 10/26/20 11:12 AL (Rec: 10/26/20 11:26 AL [id number]) Co-Sign 10/26/20 11:12 MK Nutrition Notes Initial or Follow up Reassessment Current Diagnosis Hypertension,Heart Failure, Respiratory Failure Other Pertinent Diagnosis suspected CVA, pneu Current Diet Regular Diet with thin liquids Labs/Tests BUN 30 BG 120 Pertinent Medications Solumedrol Height 5 ft 11 in Weight 89.5 kg [place] Body Weight (kg) 78.18 BMI 27.5 Intake Prior to Admission Poor Weight Status Overweight Subjective/Other Information F/U fo diet advancement. Pt. now on Regular diet with thin liquids. Pt states drinking Ensure Enlive BID. Diet and ONS well-tolerated. Breakfast this morning was tolerated at 90% Percent of energy/protein needs met: 138%/132% Burn Absent Trauma Absent Current % PO Good (75-100%) Minimum of two criteria No physical signs of malnutrition #1 Nutrition Diagnosis Predicted suboptimal energy intake As Evidenced by Signs and Symptoms Pt ate 90% of breakfast and tolerates Ensure Enlive BID. Diagnosis Progress(for reassessment Resolved documentation) Is patient on ventilator? No Is Patient Ambulatory and/or Out of Bed No REE-([facility]-confined to bed) 2018.196 Additional Notes Protein needs: 89 - 107g (1 - 1.2g/kgBW) fluid needs: 1 ml/kcal Nutrition Intervention Change Diet Order: Curent diet as ordered Add Supplement/Snack (indicate name/kcal d/c Ensure Enlive /protein ) Goal #1 Meet at least 75% of estimated energy and protein needs via PO Anticipated Discharge Needs: Cardiac Diet Revisit per MD consult or patient Sign Off request: - Malnutrition Assessment Minimum of two criteria: No physical signs of malnutrition - Attestation Statement I have reviewed and agreed w/ Malnutrition eval & tx plan: Yes
[2020-10-31] MEDS: METOPROLOL TARTRATE 25 MG TAB PO SCH ×2 (09:54→21:56)
[2020-10-31] MEDS: ASCORBIC ACID 500 MG TAB PO SCH ×2 (09:54→22:00)
[2020-10-31] MEDS: HEPARIN 5,000 UNIT/1 ML VIAL SUB-Q SCH ×2 (09:54→21:59)
[2020-10-31] MEDS: ASPIRIN 325 MG TAB PO SCH (09:54)
[2020-10-31] MEDS: ZINC SULFATE 220 MG CAP PO SCH ×2 (09:54→22:00)
[2020-10-31] MEDS: LISINOPRIL 5 MG TAB PO SCH (09:55)
[2020-10-31] MEDS: CHOLECALCIFEROL (VIT D3) 1000 UNIT (25 mcg) TAB PO SCH (09:55)
[2020-11-01] MEDS: methylPREDNISolone Sod Succinate 40 MG/1 ML INJ IV SCH ×3 (06:00→22:32)
[2020-11-01] MEDS: HEPARIN 5,000 UNIT/1 ML VIAL SUB-Q SCH ×2 (10:00→22:32)
--- NOTE | 2020-11-01 10:23 | Progress Note ---
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] Neurology recommend KELLY TTE ejection fraction 35 to 40%, no PFO CHF (congestive heart failure) acute vs acute on chronic LV ejection fraction 35 to 40% Optimize medications, diuretics beta-blockers Input output monitoring, low-sodium diet and fluid restriction --Pneumonia Complete antibiotics and DC COVID-19 test negative Covid PCR negative Acute hypoxemic respiratory failure Improved, home O2 evaluation prior to discharge DVT prophylaxis SCD to bilateral lower extremities while in bed, prophylactic anticoagulation Discharge care planning Acute rehab consult requested Second alternative is subacute rehab Plan of care reviewed with the patient his nurse and the case management Acute rehab placement, possible discharge in 1 to 2 days if stable Consults and recommendations noted Plan of care reviewed with the patient and his nurse Brief history 70 YO Male with HTN, Hypothyroidism presents to ED for evaluation. Patient is confused with diminished cognition and is unable to provide history at the time my evaluation. Patient history provided by EMS staff, ED staff, as well as the patient's son who is available by telephone and provides history. As per son the patient had experienced increased confusion and increased weakness over the past 2 days with progressively worsening symptoms over the same timeframe. Patient son acknowledges decreased exercise tolerance, shortness of breath on exertion, increased bedbound status, and decreased oral intake. Patient transported to [facility] via private vehicle for further care and evaluation of this aforementioned symptoms. The patient was seen and evaluated in the emergency department. All lab and imaging studies reviewed. The patient was found to have a neurologic deficits and clinical symptoms consistent with CVA. A code stroke was Called upon arrival to the ED. The patient was initiated on CVA protocol. Teleneurology was consulted. Patient also found to have clinical symptoms consistent with CHF as well as bilateral pneumonia. The patient was also found to have a pulse oximetry of 89% on room air which is consistent with acute hypoxemic respiratory failure. The patient was treated with supplemental oxygen with improvement in symptoms. Patient admitted to medical floor and initiated on coronavirus protocol, pneumonia protocol, as well as CHF protocol. Cardiology team consulted in ED. No further history is obtainable. Patient has diminished cognition at the time of my evaluation but has a positive gag reflex and is able to protect his airway without difficulty. Advanced care planning conducted in ED. 10/24/2020 Acute CVA with right hemiparesis PT and OT 10/25/2020 Acute CVA with right hemiplegia Rehab consult requested Ejection fraction is 35 to 40% 10/26/2020 patient with acute CVA and right-sided hemiparesis PT evaluated the patient and recommended acute rehab Case management processing the request Possible discharge in 1 to 2 days if stable 10/27/2020; patient is clinically stable, awaiting rehab/SNF placement DC planning per Case management. 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 No new complain. Clinically stable Patient is going for KELLY today. DC planning to rehab/SNF when cleared by neurology. DC planning per case management 10/29/20 patient is doing slightly better. No new complain. Clinically stable, continue physical therapy occupational therapy. Patient is going for KELLY on Sunday. DC planning to rehab/SNF after KELLY on Sunday. DC planning per case management 10/30/20 patient is sitting in chair. No new complain. Clinically stable, continue physical therapy occupational therapy. Patient is going for KELLY on Sunday. Awaiting DC planning to rehab/SNF after KELLY on Sunday. 10/31/20 patient is seen and examined. No new complain. Clinically stable, continue physical therapy occupational therapy. Patient is going for KELLY on Sunday. Awaiting DC planning to rehab/SNF after KELLY on Sunday. 11/01/20 Patient is seen and examined Patient with acute CVA and right-sided hemiparesis Patient is evaluated by PT and recommended acute rehab Patient is going for KELLY today Patient is waiting for DC planning to rehab/SNF after KELLY. 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 History Interval history: Patient is seen and examined. Patient chart and medication reviewed No new complain Patient is going for KELLY today Awaiting placement after KELLY Vital signs noted Hospitalist Physical - Constitutional Vitals: Temp Pulse Resp BP Pulse Ox 98.4 F 53 L 20 116/61 97 11/01/20 05:06 11/01/20 05:06 11/01/20 05:06 11/01/20 05:06 10/31/20 21:25 General appearance: Present: no acute distress, well-nourished, disheveled - EENT Eyes: Present: PERRL, EOM intact ENT: hearing intact, clear oral mucosa - Neck Neck: Present: supple, normal ROM - Respiratory Respiratory effort: normal Respiratory: left: CTA - Cardiovascular Heart Sounds: Present: S1 & S2 - Extremities Extremities: no ischemia Peripheral Pulses: within normal limits - Abdominal General gastrointestinal: soft, non-tender, non-distended, normal bowel sounds - Integumentary Integumentary: Present: warm, dry - Psychiatric Psychiatric: appropriate mood/affect, memory intact - Neurologic Neurologic: CNII-XII intact, moves all extremities - Allied Health Allied health notes reviewed: nursing HEART Score - HEART Score Troponin: Troponin T 0.026 ng/mL (0.00-0.029) 10/23/20 16:39 Results - Labs CBC & Chem 7: 10/23/20 13:32 10/28/20 05:25 Labs: Laboratory Last Values WBC 5.4 K/mm3 (4.5-11.0) 10/23/20 13:32 RBC 5.00 M/mm3 (3.65-5.03) 10/23/20 13:32 Hgb 14.3 gm/dl (11.8-15.2) 10/23/20 13:32 Hct 42.7 % (35.5-45.6) 10/23/20 13:32 MCV 85 fl (84-94) 10/23/20 13:32 MCH 29 pg (28-32) 10/23/20 13:32 MCHC 34 % (32-34) 10/23/20 13:32 RDW 13.8 % (13.2-15.2) 10/23/20 13:32 Plt Count 237 K/mm3 (140-440) 10/23/20 13:32 Lymph % (Auto) 27.8 % (13.4-35.0) 10/23/20 13:32 [place] % (Auto) 6.0 % (0.0-7.3) 10/23/20 13:32 Eos % (Auto) 1.6 % (0.0-4.3) 10/23/20 13:32 Baso % (Auto) 0.7 % (0.0-1.8) 10/23/20 13:32 Lymph # (Auto) 1.5 K/mm3 (1.2-5.4) 10/23/20 13:32 [place] # (Auto) 0.3 K/mm3 (0.0-0.8) 10/23/20 13:32 Eos # (Auto) 0.1 K/mm3 (0.0-0.4) 10/23/20 13:32 Baso # (Auto) 0.0 K/mm3 (0.0-0.1) 10/23/20 13:32 Seg Neutrophils % 63.9 % (40.0-70.0) 10/23/20 13:32 Seg Neutrophils # 3.4 K/mm3 (1.8-7.7) 10/23/20 13:32 PT 13.2 Sec. (12.2-14.9) 10/23/20 13:32 INR 1.01 (0.87-1.13) 10/23/20 13:32 APTT 29.9 Sec. (24.2-36.6) 10/23/20 13:32 D-Dimer 4139.61 ng/mlDDU (0-234) H 10/23/20 18:23 Sodium 137 mmol/L (137-145) 10/28/20 05:25 Potassium 4.1 mmol/L (3.6-5.0) 10/28/20 05:25 Chloride 102.0 mmol/L (98-107) 10/28/20 05:25 Carbon Dioxide 26 mmol/L (22-30) 10/28/20 05:25 Anion Gap 13 mmol/L 10/28/20 05:25 BUN 28 mg/dL (9-20) H 10/28/20 05:25 Creatinine 1.0 mg/dL (0.8-1.3) 10/28/20 05:25 Estimated GFR > 60 ml/min 10/28/20 05:25 BUN/Creatinine Ratio 28 % 10/28/20 05:25 Glucose 110 mg/dL (75-100) H 10/28/20 05:25 POC Glucose 85 mg/dL (70-105) 10/23/20 17:00 Calcium 8.2 mg/dL (8.4-10.2) L 10/28/20 05:25 Magnesium 2.20 mg/dL (1.7-2.3) 10/23/20 20:33 Ferritin 238.5 ng/mL (30.0-300.0) 10/23/20 18:23 Total Bilirubin 0.80 mg/dL (0.1-1.2) 10/23/20 13:32 AST 13 units/L (5-40) 10/23/20 13:32 ALT 13 units/L (7-56) 10/23/20 13:32 Alkaline Phosphatase 67 units/L (35-129) 10/23/20 13:32 Lactate Dehydrogenase 334 units/L (91-180) H 10/23/20 18:23 Troponin T 0.026 ng/mL (0.00-0.029) 10/23/20 16:39 C-Reactive Protein 2.50 mg/dL (0.00-1.30) H 10/23/20 18:23 NT-Pro-B Natriuret Pep 5806 pg/mL (0-900) H 10/23/20 13:32 Total Protein 7.3 g/dL (6.3-8.2) 10/23/20 13:32 Albumin 4.1 g/dL (3.9-5) 10/23/20 13:32 Albumin/Globulin Ratio 1.3 % 10/23/20 13:32 Triglycerides 60 mg/dL (2-149) 10/24/20 09:29 Cholesterol 139 mg/dL (50-199) 10/24/20 09:29 LDL Cholesterol Direct 87 mg/dL (50-130) 10/24/20 09:29 HDL Cholesterol 46 mg/dL (40-59) 10/24/20 09:29 Cholesterol/HDL Ratio 3.02 % 10/24/20 09:29 Procalcitonin < 0.05 ng/mL (<0.15) 10/23/20 18:23 TSH 6.540 mlU/mL (0.270-4.200) H 10/23/20 18:23 TSH 7.100 mlU/mL (0.270-4.200) H 10/23/20 18:23 Free T4 1.33 ng/dL (0.76-1.46) 10/23/20 18:23 Coronavirus (PCR) Negative (Negative) 05/02/21 09:57 Winkler/IV: Voiding Method Urinal Active Medications - Current Medications Current Medications: Generic Name Dose Route Start Last Admin Trade Name Freq PRN Reason Stop Dose Admin Acetaminophen 650 mg 10/23/20 20:00 Acetaminophen 325 Mg Tab PO Q4H PRN Pain, Mild (1-3) Ascorbic Acid 500 mg 10/23/20 22:00 10/31/20 22:00 Ascorbic Acid 500 Mg Tab PO 500 mg BID ALEX Administration Aspirin 325 mg 10/24/20 10:00 10/31/20 09:54 Aspirin 325 Mg Tab PO 325 mg QDAY ALEX Administration Atorvastatin Calcium 40 mg 10/23/20 22:00 10/31/20 21:56 Atorvastatin 40 Mg Tab PO 40 mg QHS ALEX Administration Bisacodyl 10 mg 10/23/20 20:00 Bisacodyl 10 Mg Rect Supp NE QDAY PRN Constipation Cholecalciferol 1,000 unit 10/24/20 10:00 10/31/20 09:55 Cholecalciferol (Vit D3) 1000 Unit (25 Mcg) Tab PO 1,000 unit QDAY ALEX Administration Heparin Sodium (Porcine) 5,000 unit 10/23/20 22:00 10/31/20 21:59 Heparin 5,000 Unit/1 Ml Vial SUB-Q 5,000 unit Q12HR ALEX Administration Lisinopril 5 mg 10/27/20 08:27 10/31/20 09:55 Lisinopril 5 Mg Tab PO 5 mg QDAY ALEX Administration Magnesium Hydroxide 30 ml 10/23/20 20:00 10/29/20 15:01 Magnesium Hydroxide (Mom) Oral Liqd Udc PO 30 ml Q4H PRN Administration Constipation Methylprednisolone Sodium Succinate 40 mg 10/23/20 22:00 11/01/20 06:00 Methylprednisolone Sod Succinate 40 Mg/1 Ml Inj IV 40 mg Q8HR ALEX Administration Metoclopramide HCl 10 mg 10/23/20 20:00 Metoclopramide 10 Mg Tab PO Q6H PRN Nausea And Vomiting Metoprolol Tartrate 6.25 mg 10/27/20 10:00 10/31/20 21:56 Metoprolol Tartrate 25 Mg Tab PO 6.25 mg BID ALEX Administration Ondansetron HCl 4 mg 10/23/20 20:00 Ondansetron 4 Mg/2 Ml Inj IV Q8H PRN Nausea And Vomiting Promethazine HCl 25 mg 10/23/20 20:00 Promethazine 25 Mg Rect Supp NE Q6H PRN Nausea And Vomiting Sodium Chloride 10 ml 10/23/20 20:00 10/28/20 22:36 Sodium Chloride 0.9% 10 Ml Flush Syringe IV 10 ml PRN PRN Administration LINE FLUSH Zinc Sulfate 220 mg 10/23/20 22:00 10/31/20 22:00 Zinc Sulfate 220 Mg Cap PO 220 mg BID ALEX Administration Nutrition/Malnutrition Assess - Dietary Evaluation Nutrition/Malnutrition Findings: Nutrition Notes Start: 10/24/20 11:33 Freq: Status: Active Protocol: Document 10/26/20 11:12 AL (Rec: 10/26/20 11:26 AL [id number]) Co-Sign 10/26/20 11:12 MK Nutrition Notes Initial or Follow up Reassessment Current Diagnosis Hypertension,Heart Failure, Respiratory Failure Other Pertinent Diagnosis suspected CVA, pneu Current Diet Regular Diet with thin liquids Labs/Tests BUN 30 BG 120 Pertinent Medications Solumedrol Height 5 ft 11 in Weight 89.5 kg Crump Body Weight (kg) 78.18 BMI 27.5 Intake Prior to Admission Poor Weight Status Overweight Subjective/Other Information F/U fo diet advancement. Pt. now on Regular diet with thin liquids. Pt states drinking Ensure Enlive BID. Diet and ONS well-tolerated. Breakfast this morning was tolerated at 90% Percent of energy/protein needs met: 138%/132% Burn Absent Trauma Absent Current % PO Good (75-100%) Minimum of two criteria No physical signs of malnutrition #1 Nutrition Diagnosis Predicted suboptimal energy intake As Evidenced by Signs and Symptoms Pt ate 90% of breakfast and tolerates Ensure Enlive BID. Diagnosis Progress(for reassessment Resolved documentation) Is patient on ventilator? No Is Patient Ambulatory and/or Out of Bed No REE-([facility]-confined to bed) 2018.196 Additional Notes Protein needs: 89 - 107g (1 - 1.2g/kgBW) fluid needs: 1 ml/kcal Nutrition Intervention Change Diet Order: Curent diet as ordered Add Supplement/Snack (indicate name/kcal d/c Ensure Enlive /protein ) Goal #1 Meet at least 75% of estimated energy and protein needs via PO Anticipated Discharge Needs: Cardiac Diet Revisit per MD consult or patient Sign Off request: - Malnutrition Assessment Minimum of two criteria: No physical signs of malnutrition - Attestation Statement I have reviewed and agreed w/ Malnutrition eval & tx plan: Yes
[2020-11-01] MEDS ORDERED: propofoL 200 MG/20 ML VIAL IV ONE ×2 (11:33)
[2020-11-01] MEDS ORDERED: fentaNYL 100 MCG/2 ML INJ ONE (11:34)
--- NOTE | 2020-11-01 11:36 | Anesthesia Day of Surgery ---
Anesthesia Day of Surgery - Day of Surgery Patient Examined: Yes Patient H&P Reviewed: Yes Patient is NPO: Yes
--- NOTE | 2020-11-01 11:36 | Anesthesia Consultation ---
Anesthesia Consult and Med Hx Date of service: 11/01/20 - Airway Anesthetic Teeth Evaluation: Good ROM Head & Neck: Adequate Mental/Hyoid Distance: Adequate Mallampati Class: Class III Intubation Access Assessment: Possibly Difficult - Pulmonary Exam CTA: Yes - Pre-Operative Health Status ASA Pre-Surgery Classification: ASA3 Proposed Anesthetic Plan: MAC - Pulmonary Hx Smoking: No Hx Respiratory Symptoms: No - Cardiovascular System Hx Hypertension: No (patient denies previous diagnosis; BP well controlled this admission) Hx Heart Attack/AMI: No (EF 35-40%) Hx Percutaneous Transluminal Coronary Angioplasty (PTCA): No Hx Cardia Arrhythmia: Yes ("slow HR," outpatient cardiology eval in progress) Hx Pacemaker: No Hx Internal Defibrillator: No - Central Nervous System CVA: Yes (acute CVA w/ right weakness) - Endocrine Hx Renal Disease: No Hx Liver Disease: No Hx Insulin Dependent Diabetes: No Hx Non-Insulin Dependent Diabetes: No Hx Hypothyroidism: Yes (s/p thyroidectomy) - Additional Comments Anesthesia Medical History Comments: No hx anesthetic complications. Neg COVID test this admission.
[2020-11-01] MEDS: SODIUM CHLORIDE 0.9% 1000 ML 1,000 ML IV SCH (11:40)
[2020-11-01] MEDS ORDERED: BENZOCAINE 20% TOP SPRAY 0.5 ML UNIT DOSE MM NR (12:00)
--- NOTE | 2020-11-01 13:40 | Post Anesthesia Evaluation ---
- Post Anesthesia Evaluation Patient Participated: Yes Airway Patent: Yes Stable Respiratory Function: Yes Nausea/Vomiting: No Temp > 96.8F: Yes Pain Manageable: Yes Adequeate Hydration: Yes Anesthesia Complications: No
--- NOTE | 2020-11-01 15:09 | Progress Note ---
Assessment and Plan Acute CVA MRI reviewed (10/23/2020): Acute infarction in the left middle cerebral artery distribution. Telemetry reviewed: Sinus rhythm 62. No events KELLY performed this a.m. Official read pending. Preliminary is positive for atrial appendage thrombus. Recommend anticoagulation. Discussed with primary team. Await neurology Recs as to appropriate agent. Cardiomyopathy Echocardiogram reviewed as above EF is 35 to 40%. Patient is on appropriate meds including beta-chang, NAEL inhibitor, statin, ASA. Plan for outpatient ischemic evaluation. Left bundle branch block Onset date is unknown. 12-lead reviewed no ST segment elevation. Troponins are negative x2. AMI ruled out. Elevated D-dimer Further work-up per primary team Hypothyroidism TSH is noted to be elevated. Management per primary team Covid PUI Covid PCR is negative DVT prophylaxis Heparin SQ Patient is currently in stable cardiac status. Recommend initiation of anticoagulation for atrial appendage thrombus. Will follow This patient was seen in conjunction with Dr Nehal Taylor who agrees with this assessment and plan of care. - Patient Problems (1) LBBB (left bundle branch block) Current Visit: Yes Status: Acute (2) Acute CVA (cerebrovascular accident) Current Visit: Yes Status: Acute (3) Cardiomyopathy Current Visit: Yes Status: Acute (4) Suspected 2019 novel coronavirus infection Current Visit: Yes Status: Acute (5) Hypothyroidism Current Visit: Yes Status: Acute (6) atrial appendage thrombus Current Visit: Yes Status: Acute Subjective Date of service: 11/01/20 Principal diagnosis: Chest Pain Interval history: Patient resting comfortably in bed. No shortness of breath or chest pain overnight. Telemetry reviewed: Sinus rhythm 62. No events Objective Last Vital Signs Temp 97.0 F L 11/01/20 11:54 Pulse 64 11/01/20 12:40 Resp 19 11/01/20 12:40 BP 130/63 11/01/20 12:40 Pulse Ox 99 11/01/20 12:40 - Physical Examination General: No Apparent Distress, Other (Patient is pleasantly confused) HEENT: Positive: PERRL, Mucus Membranes Moist Neck: Positive: neck supple, trachea midline, thyromegaly Cardiac: Positive: Reg Rate and Rhythm, S1/S2 Lungs: Positive: Normal Exam, Normal Breath Sounds Neuro: Positive: Other (Right-sided weakness aphasic partially) Abdomen: Positive: Soft, Active Bowel Sounds. Negative: Tender, Distended Skin: Positive: Clear Incision: Cardiac Cath Site Musculoskeletal: No Pain, Normal Range of Motion Extremities: Present: upper extr. pulses, lower extr. pulses. Absent: edema - Imaging and Cardiology EKG: report reviewed, image reviewed Echo: report reviewed KELLY: report reviewed (KELLY performed this a.m. pending read. Preliminary is positive for atrial appendage thrombus) - Telemetry EKG Rhythm: Sinus Rhythm - EKG Sinus rhythms and dysrhythmias: sinus rhythm
[2020-11-01] MEDS: ASCORBIC ACID 500 MG TAB PO SCH ×2 (17:44→22:32)
[2020-11-01] MEDS: ASPIRIN 325 MG TAB PO SCH (17:44)
[2020-11-01] MEDS: METOPROLOL TARTRATE 25 MG TAB PO SCH ×2 (17:44→22:36)
[2020-11-01] MEDS: ZINC SULFATE 220 MG CAP PO SCH ×2 (17:44→22:32)
[2020-11-01] MEDS: CHOLECALCIFEROL (VIT D3) 1000 UNIT (25 mcg) TAB PO SCH (17:46)
[2020-11-01] MEDS: LISINOPRIL 5 MG TAB PO SCH (17:46)
[2020-11-02] MEDS: methylPREDNISolone Sod Succinate 40 MG/1 ML INJ IV SCH ×3 (05:28→22:15)
--- NOTE | 2020-11-02 07:26 | Progress Note ---
Assessment and Plan Assessment and Plan 70 yo male with HTN, hypothyroidism who presents with 2 days of confusion, weakness and noted with an acute partial L MCA territory ischemic stroke with noted expressive aphasia, dysarthria, right hemiparesis, with possible right homonymous hemianopsia. # Acute Ischemic (EMBOLIC) Stroke - ASA 325 mg PO qday, -KELLY done yesterday with finding is suggestive oe left atrial appendage thrombus with EF#40-45% -R/O paroxysmal afib); -Pt. will need AC If no systemic contraindication exist , can start on IV heparine -ASA 81 mg - BP Goal <150/80 - Statin therapy for a goal LDL of 70, - Recommend fluoxetine 20 mg qday for motor improvement upon discharge. -Pt will require rehabilitation #LDL#87 -- mainatin Lipitor at 40 mg - # Hypertension - goal 150/80 # Hypothyroidism - management per primary team. # Unsteady Gait - pt/ot evaluation/monitoring. 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 will follow as needed Finding D/W pt. Subjective Date of service: 11/02/20 Principal diagnosis: Cp and right side weakness with confusion Interval history: 70 yo male with htn, hypothyroidism who presents with 2 days of confusion, weakness and noted with an acute partial L MCA territory ischemic infarction, in the setting of an Echo that reveals an EF of 30 to 35%, bilateral pneumonia, and possible CHF exacerbation. Currently, the patient feels slightly better. He was initially noted with a NIHSS of 16 in the ED but presented outside the tPA window and no LVO was noted on CTAs. Echo initially no thrombus KELLY done yseterday is remarkable for left atrial appendage thrombus with EF#40- 45% Ct brain is done Today showed normal evolution of left MCA infarct no hemorrhage Past History Past Medical History: hypertension, hypothyroidism, other (See HPI) Past Surgical History: thyroidectomy Social history: single. denies: smoking, alcohol abuse Family history: hypertension Objective - Vital Sign Vital Signs - 12hr 11/01/20 11/01/20 11/02/20 22:15 22:36 04:25 Temperature 97.7 F 97.8 F Pulse Rate 52 L 52 L 53 L Respiratory 18 18 Rate Blood Pressure 114/67 114/67 120/75 O2 Sat by Pulse 97 98 Oximetry - General Apperance Constitutional: comfortable - EENT EENT: PERRL, mucous membranes moist - Respiratory Respiratory: chest non-tender, lungs clear - Cardiovascular Cardiovascular: regular rate, normal S1, normal S2 Extremities: no peripheral edema bilat, no clubbing, cyanosis - Gastrointestinal Gastrointestinal: normoactive bowel sounds - Integumentary Integumentary: normal - Neurologic Cranial nerve examination: PERRL, EOMI, other (right facial droop and slight visual neglect ) Speech examination: intact Detailed motor examination: other (right upper is 3/5 right lower is 2-3/5 planter is down sensation is intact ,gait not done) - Laboratory Findings CBC and BMP: 11/02/20 07:17 11/02/20 07:17 Abnormal Lab Findings: Abnormal Labs 10/23/20 10/23/20 10/23/20 13:32 18:23 18:23 D-Dimer 4139.61 H Chloride 109.1 H BUN Glucose Calcium Lactate Dehydrogenase 334 H C-Reactive Protein 2.50 H NT-Pro-B Natriuret Pep 5806 H TSH 10/23/20 10/23/20 10/26/20 18:23 18:23 05:34 D-Dimer Chloride BUN 30 H Glucose 120 H Calcium Lactate Dehydrogenase C-Reactive Protein NT-Pro-B Natriuret Pep TSH 7.100 H 6.540 H 10/27/20 10/28/20 08:55 05:25 D-Dimer Chloride BUN 28 H 28 H Glucose 124 H 110 H Calcium 8.2 L Lactate Dehydrogenase C-Reactive Protein NT-Pro-B Natriuret Pep TSH
[2020-11-02 07:55] LABS: Hematocrit 41.1 % (35.5-45.6); Hemoglobin 13.4 gm/dl (11.8-15.2); Mean Corpuscular HGB Conc 33 % (32-34); Mean Corpuscular Volume 84 fl (84-94); Platelet Count 268 K/mm3 (140-440); Red Blood Count 4.88 M/mm3 (3.65-5.03); Red Cell Distribution Width 13.8 % (13.2-15.2)
[2020-11-02 08:07] LABS: BUN/Creatinine Ratio 30; Blood Urea Nitrogen 33 mg/dL (9-20); Calcium 7.9 mg/dL (8.4-10.2); Hemolysis Index 6
--- NOTE | 2020-11-02 08:19 | Cat Scan Report ---
CT HEAD WITHOUT CONTRAST INDICATION / CLINICAL INFORMATION: r/o bleed. TECHNIQUE: Axial imaging performed from the skull apex through the skull base without the use of cont rast. Sagittal and coronal reformatted images. All CT scans at this location are performed using CT dose reduction for ALARA by means of automated exposure control. COMPARISON: CT head and CTA head 10/23/2020 FINDINGS: CEREBRAL PARENCHYMA: Subacute appearing ischemic infarct is now evident in the left posterior frontal /left superior temporal regions measuring up to 2.4 x 2.4 cm in axial plane. Mild chronic ischemic ch anges in the white matter are again noted and unchanged. No new areas of abnormal brain density is de tected. HEMORRHAGE: None. EXTRA-AXIAL SPACES: Normal in size and morphology for the patient's age. VENTRICULAR SYSTEM: Normal in size and morphology for the patient's age. MIDLINE SHIFT OR HERNIATION: None. CEREBELLUM / BRAINSTEM: No significant abnormality. CALVARIUM: No significant abnormality. ORBITS: Normal as visualized. PARANASAL SINUSES / MASTOID AIR CELLS: Normal as visualized. SOFT TISSUES of HEAD: No significant abnormality. ADDITIONAL FINDINGS: None. IMPRESSION: Evolving subacute ischemic infarct on the left side as described. No evidence for hemorrhage. Signer Name: Raji Padron Jr, MD Signed: 11/02/2020 8:15 AM Workstation Name: [id number]
--- NOTE | 2020-11-02 09:24 | Progress Note ---
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 Acute on chronic systolic heart failure exacerbation. Acute hypoxemic respiratory failure. 10/24/2020 Acute CVA with right hemiparesis PT and OT 10/25/2020 Acute CVA with right hemiplegia Rehab consult requested Ejection fraction is 35 to 40% 10/26/2020 patient with acute CVA and right-sided hemiparesis PT evaluated the patient and recommended acute rehab Case management processing the request Possible discharge in 1 to 2 days if stable 10/27/2020; patient is clinically stable, awaiting rehab/SNF placement DC planning per Case management. 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 No new complain. Clinically stable Patient is going for KELLY today. DC planning to rehab/SNF when cleared by neurology. DC planning per case management 10/29/20 patient is doing slightly better. No new complain. Clinically stable, continue physical therapy occupational therapy. Patient is going for KELLY on Sunday. DC planning to rehab/SNF after KELLY on Sunday. DC planning per case management 10/30/20 patient is sitting in chair. No new complain. Clinically stable, continue physical therapy occupational therapy. Patient is going for KELLY on Sunday. Awaiting DC planning to rehab/SNF after KELLY on Sunday. 10/31/20 patient is seen and examined. No new complain. Clinically stable, continue physical therapy occupational therapy. Patient is going for KELLY on Sunday. Awaiting DC planning to rehab/SNF after KELLY on Sunday. 11/01/20 Patient is seen and examined Patient with acute CVA and right-sided hemiparesis Patient is evaluated by PT and recommended acute rehab Patient is going for KELLY today Patient is waiting for DC planning to rehab/SNF after KELLY. 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 11/02/2020. KELLY revealed left atrial appendage thrombus. Mildly dilated left ventricle with mild left ventricular hypertrophy with moderate global left ventricular hypokinesis with EF of 40 to 45%. Anticoagulation per cardiology recommendations. Physical therapy recommendations for acute rehab. History Interval history: No new issues overnight. Hospitalist Physical - Constitutional Vitals: Temp Pulse Resp BP Pulse Ox 97.8 F 53 L 18 120/75 99 11/02/20 04:25 11/02/20 04:25 11/02/20 04:25 11/02/20 04:25 11/02/20 07:29 General appearance: Present: no acute distress, well-nourished, disheveled - EENT Eyes: Present: PERRL, EOM intact ENT: hearing intact, clear oral mucosa, dentition normal - Neck Neck: Present: supple, normal ROM - Respiratory Respiratory effort: normal Respiratory: bilateral: CTA - Cardiovascular Rhythm: regular Heart Sounds: Present: S1 & S2. Absent: gallop, rub - Extremities Extremities: no ischemia, No edema, Full ROM - Abdominal General gastrointestinal: soft, non-tender, non-distended, normal bowel sounds - Integumentary Integumentary: Present: clear, warm, dry - Neurologic Neurologic: CNII-XII intact, moves all extremities HEART Score - HEART Score Troponin: Troponin T 0.026 ng/mL (0.00-0.029) 10/23/20 16:39 Results - Labs CBC & Chem 7: 11/02/20 07:17 11/02/20 07:17 Labs: Laboratory Last Values WBC 15.8 K/mm3 (4.5-11.0) H 11/02/20 07:17 RBC 4.88 M/mm3 (3.65-5.03) 11/02/20 07:17 Hgb 13.4 gm/dl (11.8-15.2) 11/02/20 07:17 Hct 41.1 % (35.5-45.6) 11/02/20 07:17 MCV 84 fl (84-94) 11/02/20 07:17 MCH 28 pg (28-32) 11/02/20 07:17 MCHC 33 % (32-34) 11/02/20 07:17 RDW 13.8 % (13.2-15.2) 11/02/20 07:17 Plt Count 268 K/mm3 (140-440) 11/02/20 07:17 Lymph % (Auto) 27.8 % (13.4-35.0) 10/23/20 13:32 [place] % (Auto) 6.0 % (0.0-7.3) 10/23/20 13:32 Eos % (Auto) 1.6 % (0.0-4.3) 10/23/20 13:32 Baso % (Auto) 0.7 % (0.0-1.8) 10/23/20 13:32 Lymph # (Auto) 1.5 K/mm3 (1.2-5.4) 10/23/20 13:32 [place] # (Auto) 0.3 K/mm3 (0.0-0.8) 10/23/20 13:32 Eos # (Auto) 0.1 K/mm3 (0.0-0.4) 10/23/20 13:32 Baso # (Auto) 0.0 K/mm3 (0.0-0.1) 10/23/20 13:32 Seg Neutrophils % 63.9 % (40.0-70.0) 10/23/20 13:32 Seg Neutrophils # 3.4 K/mm3 (1.8-7.7) 10/23/20 13:32 PT 13.2 Sec. (12.2-14.9) 10/23/20 13:32 INR 1.01 (0.87-1.13) 10/23/20 13:32 APTT 29.9 Sec. (24.2-36.6) 10/23/20 13:32 D-Dimer 4139.61 ng/mlDDU (0-234) H 10/23/20 18:23 Sodium 136 mmol/L (137-145) L 11/02/20 07:17 Potassium 4.9 mmol/L (3.6-5.0) 11/02/20 07:17 Chloride 103.9 mmol/L (98-107) 11/02/20 07:17 Carbon Dioxide 28 mmol/L (22-30) 11/02/20 07:17 Anion Gap 9 mmol/L 11/02/20 07:17 BUN 33 mg/dL (9-20) H 11/02/20 07:17 Creatinine 1.1 mg/dL (0.8-1.3) 11/02/20 07:17 Estimated GFR > 60 ml/min 11/02/20 07:17 BUN/Creatinine Ratio 30 % 11/02/20 07:17 Glucose 107 mg/dL (75-100) H 11/02/20 07:17 POC Glucose 85 mg/dL (70-105) 10/23/20 17:00 Calcium 7.9 mg/dL (8.4-10.2) L 11/02/20 07:17 Magnesium 2.20 mg/dL (1.7-2.3) 10/23/20 20:33 Ferritin 238.5 ng/mL (30.0-300.0) 10/23/20 18:23 Total Bilirubin 0.80 mg/dL (0.1-1.2) 10/23/20 13:32 AST 13 units/L (5-40) 10/23/20 13:32 ALT 13 units/L (7-56) 10/23/20 13:32 Alkaline Phosphatase 67 units/L (35-129) 10/23/20 13:32 Lactate Dehydrogenase 334 units/L (91-180) H 10/23/20 18:23 Troponin T 0.026 ng/mL (0.00-0.029) 10/23/20 16:39 C-Reactive Protein 2.50 mg/dL (0.00-1.30) H 10/23/20 18:23 NT-Pro-B Natriuret Pep 5806 pg/mL (0-900) H 10/23/20 13:32 Total Protein 7.3 g/dL (6.3-8.2) 10/23/20 13:32 Albumin 4.1 g/dL (3.9-5) 10/23/20 13:32 Albumin/Globulin Ratio 1.3 % 10/23/20 13:32 Triglycerides 60 mg/dL (2-149) 10/24/20 09:29 Cholesterol 139 mg/dL (50-199) 10/24/20 09:29 LDL Cholesterol Direct 87 mg/dL (50-130) 10/24/20 09:29 HDL Cholesterol 46 mg/dL (40-59) 10/24/20 09:29 Cholesterol/HDL Ratio 3.02 % 10/24/20 09:29 Procalcitonin < 0.05 ng/mL (<0.15) 10/23/20 18:23 TSH 6.540 mlU/mL (0.270-4.200) H 10/23/20 18:23 TSH 7.100 mlU/mL (0.270-4.200) H 10/23/20 18:23 Free T4 1.33 ng/dL (0.76-1.46) 10/23/20 18:23 Coronavirus (PCR) Negative (Negative) 10/24/20 09:57 [place]/IV: Voiding Method Urinal Active Medications - Current Medications Current Medications: Generic Name Dose Route Start Last Admin Trade Name Freq PRN Reason Stop Dose Admin Acetaminophen 650 mg 10/23/20 20:00 Acetaminophen 325 Mg Tab PO Q4H PRN Pain, Mild (1-3) Ascorbic Acid 500 mg 10/23/20 22:00 11/01/20 22:32 Ascorbic Acid 500 Mg Tab PO 500 mg BID ALEX Administration Aspirin 325 mg 10/24/20 10:00 11/01/20 17:44 Aspirin 325 Mg Tab PO 325 mg QDAY ALEX Administration Atorvastatin Calcium 40 mg 10/23/20 22:00 11/01/20 22:32 Atorvastatin 40 Mg Tab PO 40 mg QHS ALEX Administration Bisacodyl 10 mg 10/23/20 20:00 Bisacodyl 10 Mg Rect Supp IL QDAY PRN Constipation Cholecalciferol 1,000 unit 10/24/20 10:00 11/01/20 17:46 Cholecalciferol (Vit D3) 1000 Unit (25 Mcg) Tab PO 1,000 unit QDAY ALEX Administration Heparin Sodium (Porcine) 5,000 unit 10/23/20 22:00 11/01/20 22:32 Heparin 5,000 Unit/1 Ml Vial SUB-Q 5,000 unit Q12HR ALEX Administration Sodium Chloride 1,000 mls @ 42 mls/hr 11/01/20 11:15 11/01/20 11:40 Nacl 0.9% 1000 Ml IV 42 mls/hr DIRECT ALEX Administration Lisinopril 5 mg 10/27/20 08:27 11/01/20 17:46 Lisinopril 5 Mg Tab PO 5 mg QDAY ALEX Administration Magnesium Hydroxide 30 ml 10/23/20 20:00 10/29/20 15:01 Magnesium Hydroxide (Mom) Oral Liqd Udc PO 30 ml Q4H PRN Administration Constipation Methylprednisolone Sodium Succinate 40 mg 10/23/20 22:00 11/02/20 05:28 Methylprednisolone Sod Succinate 40 Mg/1 Ml Inj IV 40 mg Q8HR ALEX Administration Metoclopramide HCl 10 mg 10/23/20 20:00 Metoclopramide 10 Mg Tab PO Q6H PRN Nausea And Vomiting Metoprolol Tartrate 6.25 mg 10/27/20 10:00 11/01/20 22:36 Metoprolol Tartrate 25 Mg Tab PO Not Given BID ALEX Ondansetron HCl 4 mg 10/23/20 20:00 Ondansetron 4 Mg/2 Ml Inj IV Q8H PRN Nausea And Vomiting Promethazine HCl 25 mg 10/23/20 20:00 Promethazine 25 Mg Rect Supp [place] Q6H PRN Nausea And Vomiting Sodium Chloride 10 ml 10/23/20 20:00 10/28/20 22:36 Sodium Chloride 0.9% 10 Ml Flush Syringe IV 10 ml PRN PRN Administration LINE FLUSH Zinc Sulfate 220 mg 10/23/20 22:00 11/01/20 22:32 Zinc Sulfate 220 Mg Cap PO 220 mg BID ALEX Administration Nutrition/Malnutrition Assess - Dietary Evaluation Nutrition/Malnutrition Findings: Nutrition Notes Start: 10/24/20 11:33 Freq: Status: Active Protocol: Document 10/26/20 11:12 AL (Rec: 10/26/20 11:26 AL [id number]) Co-Sign 10/26/20 11:12 Nutrition Notes Initial or Follow up Reassessment Current Diagnosis Hypertension,Heart Failure, Respiratory Failure Other Pertinent Diagnosis suspected CVA, pneu Current Diet Regular Diet with thin liquids Labs/Tests BUN 30 BG 120 Pertinent Medications Solumedrol Height 5 ft 11 in Weight 89.5 kg [place] Body Weight (kg) 78.18 BMI 27.5 Intake Prior to Admission Poor Weight Status Overweight Subjective/Other Information F/U fo diet advancement. Pt. now on Regular diet with thin liquids. Pt states drinking Ensure Enlive BID. Diet and ONS well-tolerated. Breakfast this morning was tolerated at 90% Percent of energy/protein needs met: 138%/132% Burn Absent Trauma Absent Current % PO Good (75-100%) Minimum of two criteria No physical signs of malnutrition #1 Nutrition Diagnosis Predicted suboptimal energy intake As Evidenced by Signs and Symptoms Pt ate 90% of breakfast and tolerates Ensure Enlive BID. Diagnosis Progress(for reassessment Resolved documentation) Is patient on ventilator? No Is Patient Ambulatory and/or Out of Bed No REE-([facility]-confined to bed) 2018.196 Additional Notes Protein needs: 89 - 107g (1 - 1.2g/kgBW) fluid needs: 1 ml/kcal Nutrition Intervention Change Diet Order: Curent diet as ordered Add Supplement/Snack (indicate name/kcal d/c Ensure Enlive /protein ) Goal #1 Meet at least 75% of estimated energy and protein needs via PO Anticipated Discharge Needs: Cardiac Diet Revisit per MD consult or patient Sign Off request:
--- NOTE | 2020-11-02 10:29 | Progress Note ---
Assessment and Plan #Acute CVA * MRI reviewed (10/23/2020): Acute infarction in the left middle cerebral artery distribution. * Telemetry reviewed: Sinus rhythm 62. No events * KELLY reviewed (11/01/2020): Likely stock of thrombus in the left atrial appendage of heterogeneous quality. No evidence of valvulopathy. Mildly dilated left ventricle with mild LVH with moderate global LV hypokinesis. LVEF 40 to 45%. No pericardial effusion. Mild plaquing. Normal agitated saline study without evidence of intracardiac or intrapulmonary communication. * Systemic anticoagulation is indicated. Neurology consulted has no preference for agent. Will initiate Eliquis 5 mg p.o. twice daily. * Patient has weakness persisting in right arm and right leg. This morning he is complaining of tenderness to the right lower extremity which is mildly cool to touch. RLE AV duplex ultrasound is pending read, preliminary finding is arterial and venous thromboembolism. Heparin loading dose and heparin drip initiated. Vascular surgery Dr. Ervin Menendez consulted. Results discussed with primary team. #Cardiomyopathy * Echocardiogram reviewed as above EF is 35 to 40%. Patient is on appropriate meds including beta-chang, NAEL inhibitor, statin, ASA. * Plan for outpatient ischemic evaluation. #Left bundle branch block * Onset date is unknown. 12-lead reviewed no ST segment elevation. Troponins are negative x2. AMI ruled out. #Elevated D-dimer * Further work-up per primary team #Hypothyroidism * TSH is noted to be elevated. Management per primary team #Covid PUI * Covid PCR is negative #DVT prophylaxis * Heparin GTT Patient is currently stable cardiac status. We will start Heparing gtt in setting of KELLY atrial thrombus and RLE DVT status post CVA. Will follow This patient was seen in conjunction with Dr Nehal Taylor who agrees with this assessment and plan of care. - Patient Problems (1) LBBB (left bundle branch block) Current Visit: Yes Status: Acute (2) Acute CVA (cerebrovascular accident) Current Visit: Yes Status: Acute (3) Cardiomyopathy Current Visit: Yes Status: Acute (4) Suspected 2019 novel coronavirus infection Current Visit: Yes Status: Acute (5) Hypothyroidism Current Visit: Yes Status: Acute (6) atrial appendage thrombus Current Visit: Yes Status: Acute Subjective Date of service: 11/02/20 Principal diagnosis: Cp and right side weakness with confusion Interval history: Patient resting comfortably in bed. No shortness of breath or chest pain overnight. Pt icomplaining of pain to R lower extremity. Telemetry reviewed: Sinus rhythm 60. No events Objective Last Vital Signs Temp 97.8 F 11/02/20 04:25 Pulse 53 L 11/02/20 04:25 Resp 18 11/02/20 04:25 BP 120/75 11/02/20 04:25 Pulse Ox 99 11/02/20 07:29 - Physical Examination General: No Apparent Distress, Other (Patient is pleasantly confused) HEENT: Positive: PERRL, Mucus Membranes Moist Neck: Positive: neck supple, trachea midline, thyromegaly Cardiac: Positive: Reg Rate and Rhythm, S1/S2 Lungs: Positive: Normal Exam, Normal Breath Sounds Neuro: Positive: Other (Right-sided weakness aphasic partially) Abdomen: Positive: Soft, Active Bowel Sounds. Negative: Tender, Distended Skin: Positive: Clear Incision: Cardiac Cath Site Musculoskeletal: other (Patient reports right lower extremity is tender. Limb is slightly cool to touch) Extremities: Present: upper extr. pulses, lower extr. pulses. Absent: edema - Labs and Meds CBC 11/02/20 Range/Units 07:17 WBC 15.8 H (4.5-11.0) K/mm3 RBC 4.88 (3.65-5.03) M/mm3 Hgb 13.4 (11.8-15.2) gm/dl Hct 41.1 (35.5-45.6) % Plt Count 268 (140-440) K/mm3 Comprehensive Metabolic Panel 11/02/20 Range/Units 07:17 Sodium 136 L (137-145) mmol/L Potassium 4.9 (3.6-5.0) mmol/L Chloride 103.9 (98-107) mmol/L Carbon Dioxide 28 (22-30) mmol/L BUN 33 H (9-20) mg/dL Creatinine 1.1 (0.8-1.3) mg/dL Glucose 107 H (75-100) mg/dL Calcium 7.9 L (8.4-10.2) mg/dL - Imaging and Cardiology EKG: report reviewed, image reviewed Echo: report reviewed - Telemetry EKG Rhythm: Sinus Rhythm - EKG Sinus rhythms and dysrhythmias: sinus rhythm
[2020-11-02] MEDS ORDERED: APIXABAN 5 MG TAB PO SCH (11:00)
[2020-11-02] MEDS: ASPIRIN 325 MG TAB PO SCH (11:04)
[2020-11-02] MEDS: ASCORBIC ACID 500 MG TAB PO SCH ×2 (11:04→22:15)
[2020-11-02] MEDS: LISINOPRIL 5 MG TAB PO SCH (11:05)
[2020-11-02] MEDS: CHOLECALCIFEROL (VIT D3) 1000 UNIT (25 mcg) TAB PO SCH (11:05)
[2020-11-02] MEDS: METOPROLOL TARTRATE 25 MG TAB PO SCH ×2 (11:06→22:40)
[2020-11-02] MEDS: ZINC SULFATE 220 MG CAP PO SCH ×2 (11:06→22:40)
[2020-11-02] MEDS ORDERED: HEPARIN 10,000 UNITS/10 ML VIAL IV PRN ×2 (12:43→13:30)
[2020-11-02] MEDS: DOCUSATE SODIUM 100 MG CAP PO SCH ×2 (13:06→22:15)
--- NOTE | 2020-11-02 13:23 | Post Anesthesia Evaluation ---
- Post Anesthesia Evaluation Patient Participated: Yes Airway Patent: Yes Stable Respiratory Function: Yes Nausea/Vomiting: No Temp > 96.8F: Yes Pain Manageable: Yes Adequeate Hydration: Yes Anesthesia Complications: No Block Receding Appropriately: Not Applicable Patient on Ventilator: No Other Comments: patient is eating, ambulating well
[2020-11-02] MEDS ORDERED: HEPARIN 10,000 UNITS/10 ML VIAL IV SCH (13:30)
--- NOTE | 2020-11-02 14:00 | Vascular Lab Report ---
DUPLEX DOPPLER LOWER EXTREMITY VEINS, RIGHT INDICATION: leg pain, cool to touch. TECHNIQUE: Duplex doppler imaging was performed through the veins of the right lower extremity using venous comp ression and other maneuvers. COMPARISON: No relevant prior imaging study available. FINDINGS: Right Common femoral vein: Negative. Right Superficial femoral vein: Negative. Right Popliteal vein: Negative. Right Calf veins: There is thrombus in the peroneal vein which is occlusive. Additional findings: None.. IMPRESSION: 1. Occlusive thrombus in the peroneal vein. Findings were called to Rohit Craig at 12:42 PM Eastern standard time by the refractory specialist. Signer Name: Harshal Sinclair MD Signed: 11/02/2020 1:56 PM Workstation Name: [id number]
--- NOTE | 2020-11-02 14:06 | Vascular Lab Report ---
DUPLEX DOPPLER LOWER EXTREMITY ARTERIAL, RIGHT INDICATION: leg pain, cool to touch. TECHNIQUE: Arterial duplex examination of the right lower extremity performed using B-mode, color flow and spect ral Doppler assessment. FINDINGS: RIGHT: Common Femoral Artery: PSV 98 cm/sec. Triphasic waveform. Proximal SFA: PSV 65 cm/sec. Triphasic waveform. Mid SFA: Partially occlusive thrombus. There is still a triphasic waveform in the patent segment of t he vessel. Distal SFA: Occlusive thrombus. Popliteal artery: Occlusive thrombus. Posterior tibial artery: PSV 8 cm/sec. Monophasic waveform. Dorsalis Pedis Artery: Occlusive thrombus. IMPRESSION: 1. Occlusive thrombus throughout a significant portion of the right lower extremity as outlined above . Findings were called to Rohit Craig by the osd clerk at 12:42 PM Eastern standard time. Doppler Waveform: * Triphasic is normal. * Biphasic is abnormal if clear transition from triphasic signal along vascular tree. * Monophasic is abnormal. Signer Name: Harshal Sinclair MD Signed: 11/02/2020 2:01 PM Workstation Name: [id number]
--- NOTE | 2020-11-02 15:05 | Consultation ---
History of Present Illness - Reason for Consult Consult date: 11/02/20 Right lower extremity ischemia Requesting physician: MICHELINE SOTO - History of Present Illness 70 YO Male with HTN, Hypothyroidism presents to ED for evaluation. Patient is confused with diminished cognition and is unable to provide history at the time my evaluation. Patient history provided by EMS staff, ED staff, as well as the patient's son who is available by telephone and provides history. As per son the patient had experienced increased confusion and increased weakness over the past 2 days with progressively worsening symptoms over the same timeframe. Patient son acknowledges decreased exercise tolerance, shortness of breath on exertion, increased bedbound status, and decreased oral intake. Patient transported to [facility] via private vehicle for further care and evaluation of this aforementioned symptoms. The patient was seen and evaluated in the emergency department. All lab and imaging studies reviewed. The patient was found to have a neurologic deficits and clinical symptoms consistent with CVA. A code stroke was Called upon arrival to the ED. The patient was initiated on CVA protocol. Teleneurology was consulted. Patient also found to have clinical symptoms consistent with CHF as well as bilateral pneumonia. The patient was also found to have a pulse oximetry of 89% on room air which is consistent with acute hypoxemic respiratory failure. The patient was treated with supplemental oxygen with improvement in symptoms. Patient admitted to medical floor and initiated on coronavirus protocol, pneumonia protocol, as well as CHF protocol. Cardiology team consulted in ED. No further history is obtainable. Patient has diminished cognition at the time of my evaluation but has a positive gag reflex and is able to protect his airway without difficulty. Advanced care planning conducted in ED. Vascular was consulted for right lower extremity ischemia. During his hospitalization, patient was found to have a left atrial appendage thrombus, left MCA stroke, and concern for paroxysmal atrial fibrillation. The patient also had hemiparesis of the right side, and partial hemianesthesia of the right side of the body. He was found to have a extensive arterial thrombus of the right lower extremity involving the tibials, popliteal, and distal to mid superficial femoral artery. There is also venous thrombus in the right peroneal vein. This is 10 days after admission. Due to the patient's neurologic deficits, is unclear how long the right lower extremity has been ischemic. However, despite having no pain or sensation in the right lower extremity, the patient does have intact motor function of his toes, and is able to bear weight on the right leg. The right leg is cold from the mid calf down. The patient denies previous claudication or right leg discomfort prior to the stroke. The patient has a palpable left dorsalis pedis pulse, and palpable radial and ulnar pulses, and nonpalpable right pedal pulses. The patient is not a candidate for thrombolysis given the recent stroke and atrial thrombus. Past History Past Medical History: hypertension, hypothyroidism, other (See HPI) Past Surgical History: thyroidectomy Social history: single. denies: smoking, alcohol abuse Family history: hypertension Medications and Allergies Allergies Allergy/AdvReac Type Severity Reaction Status Date / Time No Known Allergies Allergy Unverified 10/23/20 12:44 Home Medications Medication Instructions Recorded Confirmed Last Taken Type Levothyroxine Sodium 150 mcg PO DAILY 10/31/20 10/31/20 Unknown History [Levothyroxine] carvediloL [Coreg] 6.25 mg PO BID 10/31/20 10/31/20 Unknown History lisinopriL [Lisinopril] 10 mg PO DAILY 10/31/20 10/31/20 Unknown History Active Meds: Active Medications Acetaminophen (Acetaminophen 325 Mg Tab) 650 mg PO Q4H PRN PRN Reason: Pain, Mild (1-3) Ascorbic Acid (Ascorbic Acid 500 Mg Tab) 500 mg PO BID [facility] Last Admin: 11/02/20 11:04 Dose: 500 mg Documented by: Aspirin (Aspirin 325 Mg Tab) 325 mg PO QDAY [facility] Last Admin: 11/02/20 11:04 Dose: 325 mg Documented by: Atorvastatin Calcium (Atorvastatin 40 Mg Tab) 40 mg PO QHS [facility] Last Admin: 11/01/20 22:32 Dose: 40 mg Documented by: Bisacodyl (Bisacodyl 10 Mg Rect Supp) 10 mg [place] QDAY PRN PRN Reason: Constipation Cholecalciferol (Cholecalciferol (Vit D3) 1000 Unit (25 Mcg) Tab) 1,000 unit PO QDAY [facility] Last Admin: 11/02/20 11:05 Dose: 1,000 unit Documented by: Docusate Sodium (Docusate Sodium 100 Mg Cap) 100 mg PO BID [facility] Last Admin: 11/02/20 13:06 Dose: 100 mg Documented by: Heparin Sodium (Porcine) (Heparin 10,000 Units/10 Ml Vial) 3,900 unit 40 unit/kg (3900 unit) IV Q6H PRN PRN Reason: Anti-Xa Assay < 0.1 units/ml Sodium Chloride (Nacl 0.9% 1000 Ml) 1,000 mls @ 42 mls/hr IV DIRECT [facility] Last Admin: 11/01/20 11:40 Dose: 42 mls/hr Documented by: Heparin Sodium/Sodium Chloride (Heparin/ 0.45% Nacl-25,000 Unit/500 Ml) 25,000 unit in 500 mls @ 29 mls/hr IV TITR [facility]; Protocol Lisinopril (Lisinopril 5 Mg Tab) 5 mg PO QDAY [facility] Last Admin: 11/02/20 11:05 Dose: 5 mg Documented by: Magnesium Hydroxide (Magnesium Hydroxide (Mom) Oral Liqd Udc) 30 ml PO Q4H PRN PRN Reason: Constipation Last Admin: 10/29/20 15:01 Dose: 30 ml Documented by: Methylprednisolone Sodium Succinate (Methylprednisolone Sod Succinate 40 Mg/1 Ml Inj) 40 mg IV Q12HR [facility] Last Admin: 11/02/20 11:04 Dose: 40 mg Documented by: Metoclopramide HCl (Metoclopramide 10 Mg Tab) 10 mg PO Q6H PRN PRN Reason: Nausea And Vomiting Metoprolol Tartrate (Metoprolol Tartrate 25 Mg Tab) 6.25 mg PO BID [facility] Last Admin: 11/02/20 11:06 Dose: 6.25 mg Documented by: Ondansetron HCl (Ondansetron 4 Mg/2 Ml Inj) 4 mg IV Q8H PRN PRN Reason: Nausea And Vomiting Promethazine HCl (Promethazine 25 Mg Rect Supp) 25 mg AK Q6H PRN PRN Reason: Nausea And Vomiting Sodium Chloride (Sodium Chloride 0.9% 10 Ml Flush Syringe) 10 ml IV PRN PRN PRN Reason: LINE FLUSH Last Admin: 10/28/20 22:36 Dose: 10 ml Documented by: Zinc Sulfate (Zinc Sulfate 220 Mg Cap) 220 mg PO BID [facility] Last Admin: 11/02/20 11:06 Dose: 220 mg Documented by: Review of Systems All systems: negative (see HPI) Exam - Constitutional Vitals: Temp Pulse Resp BP Pulse Ox 97.6 F 71 16 110/61 100 11/02/20 11:03 11/02/20 11:06 11/02/20 11:03 11/02/20 11:06 11/02/20 11:03 General appearance: Present: no acute distress - EENT Eyes: Present: EOM intact ENT: hearing intact - Extremities Extremities: abnormal (see HPI) Peripheral Pulses: abnormal (see HPI) - Abdominal General gastrointestinal: Present: soft, non-tender - Psychiatric Psychiatric: appropriate mood/affect, cooperative - Neurologic Neurologic: other (Hemiparetic and hemianesthetic on the right side) Results - Labs CBC & Chem 7: 11/02/20 07:17 11/02/20 07:17 Labs: Abnormal lab results 11/02/20 11/02/20 Range/Units 07:17 07:17 WBC 15.8 H (4.5-11.0) K/mm3 Sodium 136 L (137-145) mmol/L BUN 33 H (9-20) mg/dL Glucose 107 H (75-100) mg/dL Calcium 7.9 L (8.4-10.2) mg/dL - Imaging and Cardiology Venous US: report reviewed, image reviewed (Venous and arterial) Assessment and Plan 70-year-old male with multiple medical issues and admission for left MCA stroke suspected to be caused by paroxysmal atrial fibrillation with left atrial appendage thrombus noted on echocardiogram. Patient was found to have arterial thrombus of the right lower extremity which is quite extensive in the mid SFA extending inferiorly and involving all vessels except the posterior tibial artery. There is also a venous thrombus noted in the right lower extremity. Right lower extremity is cold from the mid calf down but not mottled. The toes are slightly dusky. The patient has motor function of the toes and can bear weight on the right lower extremity. The patient has right sided hemiparesis and hemianesthesia secondary to the left MCA infarct making the time of this event unclear. Patient is not a candidate for thrombolysis given the thrombus in the left atrial appendage and the recent CVA. The would benefit from open thrombectomy of the right lower extremity to attempt to salvage the right lower extremity. He would also require fasciotomies to prevent compartment syndrome. The right peroneal vein thrombus is concerning and may represent some element of muscle cath. This was also discussed with the family. Risks, benefits, and alternatives of open revascularization with fasciotomies to attempt to salvage the right lower extremity was discussed with the family. They agreed with procedure.
[2020-11-02] MEDS: HEPARIN/ 0.45% NACL DRIP 25,000 UNIT/500 ML BAG IV SCH (15:10)
[2020-11-02] MEDS ORDERED: PROTAMINE SULFATE 50 MG/5 ML INJ ONE (15:42)
[2020-11-02] MEDS ORDERED: BUPIVACAINE/PF (0.5%) 5 MG/1 ML 30 ML VIAL INFILTRATI ONE (15:42)
[2020-11-02] MEDS ORDERED: SODIUM CHLORIDE P/F VIAL 10 ML 0 ML ONE (15:43)
[2020-11-02] MEDS ORDERED: SODIUM CHLORIDE 0.9% 500 ML 500 ML ONE (15:43)
[2020-11-02] MEDS ORDERED: rifAMPin 600 MG VIAL ONE (15:43)
[2020-11-02] MEDS ORDERED: SODIUM CHLORIDE 0.9% 250ML 0 ML ONE (15:43)
[2020-11-02 15:49] LABS: Hematocrit 47.5 % (35.5-45.6); Hemoglobin 15.7 gm/dl (11.8-15.2)
--- NOTE | 2020-11-02 15:53 | Event Note ---
Date: 11/02/20 Patient posted with OR for emergent embolectomy with right 4 compartment fasciotomy. OR has available staff however I have been informed that anesthesia staff is not available for possibly 2 hours. Patient has been started on a heparin gtt. Has retained motor function at this time. Will continue to monitor. and proceed as quickly as possible.
[2020-11-02 16:02] LABS: INR 1.11 (0.87-1.13)
[2020-11-02] MEDS ORDERED: ROCURONIUM 50 MG/5 ML INJ IV ONE (16:08)
[2020-11-02] MEDS ORDERED: SUCCINYLCHOLINE CHLORIDE 200 MG/10 ML INJ MDV ONE (16:08)
[2020-11-02] MEDS ORDERED: LIDOCAINE MPF (2%) 20 MG/1 ML VIAL 5 ML ONE (16:08)
[2020-11-02] MEDS ORDERED: fentaNYL 100 MCG/2 ML INJ ONE (16:08)
[2020-11-02] MEDS ORDERED: propofoL 200 MG/20 ML VIAL IV ONE (16:09)
[2020-11-02] MEDS ORDERED: SODIUM CHLORIDE 0.9% 1000 ML 1,000 ML ONE ×2 (16:28→18:09)
[2020-11-02] MEDS ORDERED: ceFAZolin 1 GM VIAL ONE (16:34)
[2020-11-02] MEDS ORDERED: PHENYLEPHRINE/NS 1,000 MCG/10 ML SYRINGE (OR USE) IV ONE (16:34)
[2020-11-02] MEDS ORDERED: ePHEDrine SULFATE 50 MG/1 ML INJ ONE (16:47)
[2020-11-02] MEDS ORDERED: SODIUM CHLORIDE 0.9% IRR 1,500 ML BOTTLE IR ONE (17:29)
[2020-11-02] MEDS ORDERED: HEPARIN 10,000 UNITS/10 ML VIAL IV ONE (17:29)
[2020-11-02] MEDS ORDERED: HEPARIN 10,000 UNITS/10 ML VIAL IR ONE (17:29)
[2020-11-02] MEDS ORDERED: SODIUM CHLORIDE 0.9% 500 ML IVPB IRRIGATION ONE (17:30)
[2020-11-02] MEDS ORDERED: SODIUM CHLORIDE 0.9% 500 ML IVPB IV ONE (17:30)
[2020-11-02] MEDS ORDERED: HYDROmorphone 1 MG/1 ML INJ ONE (17:58)
[2020-11-02] MEDS ORDERED: NEOSTIGMINE 10MG/10 ML INJ MDV ONE (18:09)
[2020-11-02] MEDS ORDERED: GLYCOPYRROLATE 0.4 MG/2 ML INJ ONE ×2 (18:09→18:44)
[2020-11-02] MEDS ORDERED: ONDANSETRON 4 MG/2 ML INJ ONE (18:14)
[2020-11-02] MEDS: HEPARIN 5,000 UNIT/1 ML VIAL SUB-Q SCH (19:11)
--- NOTE | 2020-11-02 19:17 | Anesthesia Day of Surgery ---
Anesthesia Day of Surgery - Day of Surgery Patient Examined: Yes Patient H&P Reviewed: Yes Patient is NPO: Yes
[2020-11-02] MEDS ORDERED: ONDANSETRON 4 MG/2 ML INJ IV PRN (19:19)
[2020-11-02] MEDS ORDERED: HYDROmorphone 1 MG/1 ML INJ IV PRN (19:19)
--- NOTE | 2020-11-02 19:39 | Operative Report ---
Operative Report Operative Report: Date of Procedure: 11/02/2020 Pre-operative Diagnosis: Acute Ischemia of Right Lower Extremity Post-operative Diagnosis: Same Procedure(s): 1. Open Thrombectomy Of Right Leg Through a Common Femoral Arteriotomy With a 4 and 5 Zoe 2. Right Leg 4 Compartment Fasciotomy Surgeon: Ervin Menendez M.D. Wheel Assembler: None Anesthesia: General Endotracheal Anesthesia EBL: 150 mL Counts: Correct Complications: None Condition: Stable Findings: All muscle in the right lower extremity was healthy and viable. There was a palpable pulse in the posterior tibial artery that was easily palpated in the deep posterior compartment. Specimen: Right lower extremity thrombus was sent to pathology. Indication: The patient is a 70-year-old male who presented to the emergency department with a stroke affecting his right side. During the hospitalization he was found to have extensive right lower extremity arterial thrombus. Upon evaluation he retained motor but numbness of the lower extremity. The decision was made to bring him emergently to the operating room for an open thrombectomy with 4 compartment fasciotomy. He was given the risk, benefits, and alternative procedures and consented to the procedure. Description of Procedure: The patient was brought to the operating room and laid in supine position. After general endotracheal anesthesia was achieved his right groin and leg were prepped and draped in normal sterile fashion. A longitudinal incision was created in the right groin and carried down to the anterior abdominal wall using sharp dissection. Once identify the intra-abdominal wall I dissected down to the common femoral artery and dissected it circumferentially controlled with a vessel loop. I then dissected along the medial aspect of the common femoral artery until I identified the SFA and then dissected it circumferentially controlled with a vessel loop. I then dissected the profunda artery circumferentially controlled with a vessel loop. I then systemically heparinized the patient with 5000 units of heparin IV and allow this to circulate for approximately 5 minutes prior to clamping all 3 vessels. I then created a transverse arteriotomy, just proximal to the bifurcation, using an 11 blade and Frazier scissors. I removed the clamp from the profunda artery which had excellent backbleeding. I then passed a 4 Zoe down the SFA until I could no longer passes and then inflated the balloon and pulled back a significant amount of thrombus. I repeated this 4-5 times with a significant amount of thrombus. At this point there was a significant amount of backbleeding. I then used a 5 Zoe and passed this to the approximate length of the above-knee popliteal artery and retrieved minimal thrombus. I repeated this without additional thrombus. I then flushed the SFA with heparinized saline and reclamped the artery. I flushed the profunda artery with heparinized saline and reclamped it. I closed the femoral arteriotomy with 6-0 Prolene's in interrupted fashion. Prior to completing the closure I flashed all arteries and then reclamped them and flushed the arteriotomy with heparinized saline. I then released the clamp on the common femoral artery and profunda followed by the SFA. I did packed the femoral wound with QuickClot and then turned my attention to the fasciotomy. I made an incision along the medial aspect of the calf extending from just below the knee to just above the medial malleolus. I used cautery to carry the incision down to the fascia and then used curved Mayos to open the fascia and extended along the entire length of the incision. Upon opening the fascia the muscle was found to be pink and viable. I open both the superficial and deep compartment by taking the soleus muscle down from the tibia. Upon opening the deep compartment I was able to easily palpate a pulse within the posterior tibial artery. Hemostasis was achieved with a combination of pressure and cautery. Once hemostasis was achieved I turned my attention to the anterior lateral compartment. I made an incision on the anterolateral portion of the calf and carried this down to the fascia using cautery. I incised the fascia using curved Mayos and extends into this along the entire incision and upon opening the incision the muscle was found to be healthy and viable. Open both the anterior and lateral compartments and again hemostasis was achieved with a combination of manual pressure and cautery. Once hemostasis was achieved I packed both wounds with lap pads. I then turned my attention to the groin incision which was now hemostatic. I closed the groin incision and multiple layers using a 3-0 Vicryl in running fashion to reapproximate the fascia, a 3-0 Vicryl running fashion to reapproximate the soft tissue, 3-0 Vicryl running fashion the deep dermal layer, and a 4-0 Monocryl in running fashion the subcuticular. I then dressed the wound with Dermabond. I then dressed the fasciotomy incisions with a Kerlix roll and each fasciotomy incision respectively. I placed an 2 ABD pads over each fasciotomy incision respectivel y. I then wrapped the leg with a loose Kerlix roll and a 4 inch Edmund bandage. The patient tolerated the procedure well. All sponge, needle, and instrument counts were correct. The patient was taken to the recovery area in stable condition.
[2020-11-02 22:56] LABS: Hematocrit 39.4 % (35.5-45.6); Hemoglobin 13.1 gm/dl (11.8-15.2); Mean Corpuscular HGB Conc 33 % (32-34); Mean Corpuscular Volume 85 fl (84-94); Platelet Count 288 K/mm3 (140-440); Red Blood Count 4.65 M/mm3 (3.65-5.03); Red Cell Distribution Width 13.8 % (13.2-15.2)
[2020-11-03] MEDS: SODIUM CHLORIDE 0.9% 1000 ML 1,000 ML IV SCH (04:00)
[2020-11-03] MEDS ORDERED: SODIUM CHLORIDE 0.9% 250ML 250 ML IV ONE (06:01)
--- NOTE | 2020-11-03 08:24 | Progress Note ---
Assessment and Plan Patient doing well Bleeding from fasciotomy incision, with decreased blood pressure will check H/H and possibly transfuse Redressed wound with Quickclot to control bleeding will continue to monitor Subjective Date of service: 11/03/20 Principal diagnosis: Cp and right side weakness with confusion Interval history: Patient s/p right lower extremity thombectomy with 4 compartment fasciotomy yesterday. Bleeding from incisions over night. No other significant events overnight. Objective - Constitutional Vitals: Vital Signs - 12hr 11/02/20 11/02/20 11/02/20 20:30 21:00 21:30 Temperature Pulse Rate 60 64 64 Pulse Rate [ From Monitor] Respiratory 14 14 13 Rate Blood Pressure 130/71 137/81 137/81 O2 Sat by Pulse 100 100 100 Oximetry 11/02/20 11/02/20 11/02/20 22:00 22:30 22:40 Temperature Pulse Rate 68 64 64 Pulse Rate [ From Monitor] Respiratory 15 16 Rate Blood Pressure 119/75 110/72 O2 Sat by Pulse 100 100 Oximetry 11/02/20 11/02/20 11/03/20 23:00 23:30 00:00 Temperature 97.7 F Pulse Rate 65 64 65 Pulse Rate [ 67 From Monitor] Respiratory 15 13 11 L Rate Blood Pressure 109/73 99/63 99/67 O2 Sat by Pulse 100 100 100 Oximetry 11/03/20 11/03/20 11/03/20 00:30 01:00 01:30 Temperature Pulse Rate 67 69 70 Pulse Rate [ From Monitor] Respiratory 11 L 10 L 13 Rate Blood Pressure 101/63 105/68 115/67 O2 Sat by Pulse 100 100 100 Oximetry 11/03/20 11/03/20 11/03/20 02:00 02:30 03:00 Temperature Pulse Rate 72 66 67 Pulse Rate [ From Monitor] Respiratory 14 11 L 10 L Rate Blood Pressure 103/72 93/56 103/60 O2 Sat by Pulse 100 100 100 Oximetry 11/03/20 11/03/20 11/03/20 03:30 04:00 04:30 Temperature 97.9 F Pulse Rate 73 71 67 Pulse Rate [ 67 From Monitor] Respiratory 14 12 19 Rate Blood Pressure 98/60 89/64 95/56 O2 Sat by Pulse 100 100 100 Oximetry 11/03/20 11/03/20 11/03/20 05:00 05:30 06:00 Temperature Pulse Rate 71 65 64 Pulse Rate [ 67 From Monitor] Respiratory 14 15 15 Rate Blood Pressure 94/57 89/57 99/60 O2 Sat by Pulse 100 100 100 Oximetry 11/03/20 11/03/20 11/03/20 06:30 07:00 07:57 Temperature 98.3 F Pulse Rate 66 65 Pulse Rate [ From Monitor] Respiratory 15 10 L Rate Blood Pressure 109/62 94/60 O2 Sat by Pulse 100 100 100 Oximetry General appearance: Present: no acute distress - Cardiovascular Rhythm: regular Extremities: pulses intact (Palpable PT pulse), abnormal (right leg dressing with bloody drainage, dressing removed and diffuce oozing. Packed with QuickClot (Hemostatic Agent) all muscle appeared viable.) Extremity abnormal: other (right groin incision without hematoma) - Gastrointestinal General gastrointestinal: Present: soft, non-tender Rectal Exam: deferred - Genitourinary Male genitourinary: deferred - Neurologic Neurologic: other (right foot with motor and sensation) - Labs CBC & Chem 7: 11/02/20 22:28 11/02/20 15:06 Labs: Abnormal lab results 11/02/20 11/02/20 11/02/20 Range/Units 15:06 21:25 22:28 WBC 21.8 H (4.5-11.0) K/mm3 Hgb 15.7 H (11.8-15.2) gm/dl Hct 47.5 H D (35.5-45.6) % Heparin Anti-Xa Level 1.63 H (0.3-0.7) U.I./ml 11/03/20 Range/Units 05:47 WBC (4.5-11.0) K/mm3 Hgb (11.8-15.2) gm/dl Hct (35.5-45.6) % Heparin Anti-Xa Level < 0.10 L (0.3-0.7) U.I./ml Medications & Allergies - Medications Allergies/Adverse Reactions: Allergies No Known Allergies Allergy (Unverified 10/23/20 12:44) Home Medications: Home Medications Medication Instructions Recorded Confirmed Last Taken Type Levothyroxine Sodium 150 mcg PO DAILY 10/31/20 10/31/20 Unknown History [Levothyroxine] carvediloL [Coreg] 6.25 mg PO BID 10/31/20 10/31/20 Unknown History lisinopriL [Lisinopril] 10 mg PO DAILY 10/31/20 10/31/20 Unknown History Active Medications: Generic Name Dose Route Start Last Admin Trade Name Freq PRN Reason Stop Dose Admin Acetaminophen 650 mg 10/23/20 20:00 Acetaminophen 325 Mg Tab PO Q4H PRN Pain, Mild (1-3) Ascorbic Acid 500 mg 10/23/20 22:00 11/02/20 22:15 Ascorbic Acid 500 Mg Tab PO 500 mg BID [facility] Administration Aspirin 325 mg 10/24/20 10:00 11/02/20 11:04 Aspirin 325 Mg Tab PO 325 mg QDAY [facility] Administration Atorvastatin Calcium 40 mg 10/23/20 22:00 11/02/20 22:14 Atorvastatin 40 Mg Tab PO 40 mg QHS [facility] Administration Bisacodyl 10 mg 10/23/20 20:00 Bisacodyl 10 Mg Rect Supp [place] QDAY PRN Constipation Cholecalciferol 1,000 unit 10/24/20 10:00 11/02/20 11:05 Cholecalciferol (Vit D3) 1000 Unit (25 Mcg) Tab PO 1,000 unit QDAY [facility] Administration Docusate Sodium 100 mg 11/02/20 12:00 11/02/20 22:15 Docusate Sodium 100 Mg Cap PO 100 mg BID [facility] Administration Heparin Sodium (Porcine) 3,900 unit 11/02/20 13:30 Heparin 10,000 Units/10 Ml Vial 40 unit/kg (3900 unit) IV Q6H PRN Anti-Xa Assay < 0.1 units/ml Hydromorphone HCl 2 mg 11/03/20 09:00 11/03/20 08:15 Hydromorphone 2 Mg/1 Ml Inj IV 11/03/20 09:01 2 mg ONCE ONE Administration Sodium Chloride 1,000 mls @ 42 mls/hr 11/01/20 11:15 11/03/20 04:00 Nacl 0.9% 1000 Ml IV 42 mls/hr DIRECT [facility] Administration Heparin Sodium/Sodium Chloride 25,000 unit in 500 mls @ 29 mls/hr 11/02/20 13:00 11/03/20 06:35 Heparin/ 0.45% Nacl-25,000 Unit/500 Ml IV 1,360 units/hr TITR [facility] 27.2 mls/hr Titration Protocol 1,450 UNITS/HR Lisinopril 5 mg 10/27/20 08:27 11/02/20 11:05 Lisinopril 5 Mg Tab PO 5 mg QDAY [facility] Administration Magnesium Hydroxide 30 ml 10/23/20 20:00 10/29/20 15:01 Magnesium Hydroxide (Mom) Oral Liqd Udc PO 30 ml Q4H PRN Administration Constipation Methylprednisolone Sodium Succinate 40 mg 11/02/20 12:00 11/02/20 22:15 Methylprednisolone Sod Succinate 40 Mg/1 Ml Inj IV 40 mg Q12HR [facility] Administration Metoclopramide HCl 10 mg 10/23/20 20:00 Metoclopramide 10 Mg Tab PO Q6H PRN Nausea And Vomiting Metoprolol Tartrate 6.25 mg 10/27/20 10:00 11/02/20 22:40 Metoprolol Tartrate 25 Mg Tab PO Not Given BID [facility] Ondansetron HCl 4 mg 10/23/20 20:00 Ondansetron 4 Mg/2 Ml Inj IV Q8H PRN Nausea And Vomiting Promethazine HCl 25 mg 10/23/20 20:00 Promethazine 25 Mg Rect Supp [place] Q6H PRN Nausea And Vomiting Sodium Chloride 10 ml 10/23/20 20:00 10/28/20 22:36 Sodium Chloride 0.9% 10 Ml Flush Syringe IV 10 ml PRN PRN Administration LINE FLUSH Zinc Sulfate 220 mg 10/23/20 22:00 11/02/20 22:40 Zinc Sulfate 220 Mg Cap PO 220 mg BID [facility]LEX Administration HEART Score - HEART Score Troponin: Troponin T 0.026 ng/mL (0.00-0.029) 10/23/20 16:39
[2020-11-03] MEDS ORDERED: HYDROmorphone 2 MG/1 ML INJ IV ONE (09:00)
--- NOTE | 2020-11-03 09:14 | Progress Note ---
Assessment and Plan #Acute CVA * MRI reviewed (10/23/2020): Acute infarction in the left middle cerebral artery distribution. * Telemetry reviewed: Sinus rhythm 62. No events * KELLY reviewed (11/01/2020): Likely stock of thrombus in the left atrial appendage of heterogeneous quality. No evidence of valvulopathy. Mildly dilated left ventricle with mild LVH with moderate global LV hypokinesis. LVEF 40 to 45%. No pericardial effusion. Mild plaquing. Normal agitated saline study without evidence of intracardiac or intrapulmonary communication. * Arterial and venous ultrasound of right leg revealed extensive occlusive thrombus and ischemic limb. Initiated on heparin gtt. patient underwent emergent open revascularization with 4 compartment fasciotomy by vascular surgeon Dr. Ervin Menendez. Patient recovering in the CCU continues to be on heparin gtt. * This morning patient has marked change in mental status with confusion, worsened aphasia and right-sided facial droop. This was discussed with Dr. Prasad, neurology who agrees. Stat MRI brain is pending. #Cardiomyopathy * Echocardiogram reviewed as above EF is 35 to 40%. Patient is on appropriate meds including beta-chang, NAEL inhibitor, statin, ASA. * Referral for outpatient cardiac rehab assessment is requested, unlikely patient will be a good candidate in setting of acute CVA with right-sided deficit. * Plan for outpatient ischemic evaluation. #Left bundle branch block * Onset date is unknown. 12-lead reviewed no ST segment elevation. Troponins are negative x2. AMI ruled out. #Elevated D-dimer * Further work-up per primary team #Hypothyroidism * TSH is noted to be elevated. Management per primary team #Covid PUI * Covid PCR is negative #DVT prophylaxis * Heparin gtt Patient is currently stable cardiac status. Stat MRI brain to assess for reinfarction is pending. Continue on heparin gtt. will follow This patient was seen in conjunction with Dr Nehal Taylor who agrees with this assessment and plan of care. - Patient Problems (1) LBBB (left bundle branch block) Current Visit: Yes Status: Acute (2) Acute CVA (cerebrovascular accident) Current Visit: Yes Status: Acute (3) Cardiomyopathy Current Visit: Yes Status: Acute (4) Suspected 2019 novel coronavirus infection Current Visit: Yes Status: Acute (5) Hypothyroidism Current Visit: Yes Status: Acute (6) atrial appendage thrombus Current Visit: Yes Status: Acute Subjective Date of service: 11/03/20 Principal diagnosis: Cp and right side weakness with confusion Interval history: Patient resting in bed. Marked decrease in mental status with new aphasia noted. Marked right-sided facial droop. Telemetry reviewed: Sinus rhythm 89. No events Objective Last Vital Signs Temp 98.3 F 11/03/20 07:00 Pulse 86 11/03/20 08:30 Resp 11 L 11/03/20 08:30 BP 111/74 11/03/20 08:30 Pulse Ox 100 11/03/20 08:30 - Physical Examination General: No Apparent Distress, Other (Patient is pleasantly confused) HEENT: Positive: PERRL, Mucus Membranes Moist Neck: Positive: neck supple, trachea midline, thyromegaly Lungs: Positive: Normal Exam, Normal Breath Sounds Neuro: Positive: Other (Right-sided weakness, marked aphasia right-sided facial droop) Abdomen: Positive: Soft, Active Bowel Sounds. Negative: Tender, Distended Skin: Positive: Clear Incision: Cardiac Cath Site Musculoskeletal: other (Patient reports right lower extremity is tender. Limb is slightly cool to touch) Extremities: Present: upper extr. pulses, lower extr. pulses. Absent: edema - Labs and Meds Coagulation 11/02/20 Range/Units 15:06 PT 14.1 (12.2-14.9) Sec. INR 1.11 (0.87-1.13) APTT 26.0 (24.2-36.6) Sec. CBC 11/02/20 11/02/20 Range/Units 15:06 22:28 WBC 21.8 H (4.5-11.0) K/mm3 RBC 4.65 (3.65-5.03) M/mm3 Hgb 15.7 H 13.1 (11.8-15.2) gm/dl Hct 47.5 H D 39.4 D (35.5-45.6) % Plt Count 291 288 (140-440) K/mm3 Comprehensive Metabolic Panel 11/02/20 Range/Units 15:06 Creatinine 1.2 (0.8-1.3) mg/dL - Imaging and Cardiology EKG: report reviewed, image reviewed Echo: report reviewed KELLY: report reviewed - Telemetry EKG Rhythm: Sinus Rhythm - EKG Sinus rhythms and dysrhythmias: sinus rhythm
[2020-11-03] MEDS ORDERED: oxyCODONE /ACETAMINOPHEN 5-325MG TAB PO PRN (09:27)
[2020-11-03] MEDS: DOCUSATE SODIUM 100 MG CAP PO SCH ×2 (09:45→21:34)
[2020-11-03] MEDS: METOPROLOL TARTRATE 25 MG TAB PO SCH ×2 (09:45→23:40)
[2020-11-03] MEDS: ASCORBIC ACID 500 MG TAB PO SCH ×2 (09:46→21:34)
[2020-11-03] MEDS: LISINOPRIL 5 MG TAB PO SCH (09:46)
[2020-11-03] MEDS: methylPREDNISolone Sod Succinate 40 MG/1 ML INJ IV SCH (09:46)
[2020-11-03] MEDS: ZINC SULFATE 220 MG CAP PO SCH ×2 (09:46→21:34)
[2020-11-03] MEDS: ASPIRIN 325 MG TAB PO SCH (09:46)
[2020-11-03] MEDS: CHOLECALCIFEROL (VIT D3) 1000 UNIT (25 mcg) TAB PO SCH (09:46)
--- NOTE | 2020-11-03 11:01 | Progress Note ---
Assessment and Plan Assessment and Plan 70 yo male with HTN, hypothyroidism who presents with 2 days of confusion, weakness and noted with an acute partial L MCA territory ischemic stroke with noted expressive aphasia, dysarthria, right hemiparesis, with possible right homonymous hemianopsia. # Acute Ischemic (EMBOLIC) Stroke - ASA 325 mg PO qday, -KELLY done yesterday with finding is suggestive oe left atrial appendage thrombus with EF#40-45% -today he is with worsening aphasia mostly expressive and worsening right side weakness -leukocytosis today 21K - had right leg thrombectomy yesterday -R/O paroxysmal afib); -Pt. will need AC If no systemic contraindication exist , can start on IV heparine -ASA 81 mg - BP Goal <150/80 - Statin therapy for a goal LDL of 70, - Recommend fluoxetine 20 mg qday for motor improvement upon discharge. -Pt will require rehabilitation #LDL#87 -- mainatin Lipitor at 40 mg - # Hypertension - goal 150/80 # Hypothyroidism - management per primary team. # Unsteady Gait - pt/ot evaluation/monitoring. 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 PLAN 1- maintain medications 2- Need MRI brain STAT 3- Treat underlying infection 4- NPO 5- PT/ST evaluate 6- maintain Iv heparine will follow Subjective Date of service: 11/03/20 Principal diagnosis: Cp and right side weakness with confusion Interval history: 70 yo male with htn, hypothyroidism who presents with 2 days of confusion, weakness and noted with an acute partial L MCA territory ischemic infarction, in the setting of an Echo that reveals an EF of 30 to 35%, bilateral pneumonia, and possible CHF exacerbation. Currently, the patient feels slightly better. He was initially noted with a NIHSS of 16 in the ED but presented outside the tPA window and no LVO was noted on CTAs. 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 had right lower Ext. thrombus underwent thrombectomy he is in ICU today he seems to be more out of it with worseing of aphasia and right side weakness not follow command Past History Past Medical History: hypertension, hypothyroidism, other (See HPI) Past Surgical History: thyroidectomy Social history: single. denies: smoking, alcohol abuse Family history: hypertension Objective - Vital Sign Vital Signs - 12hr 11/02/20 11/02/20 11/03/20 23:00 23:30 00:00 Temperature 97.7 F Pulse Rate 65 64 65 Pulse Rate [ 67 From Monitor] Respiratory 15 13 11 L Rate Respiratory Rate [right leg ] Blood Pressure 109/73 99/63 99/67 O2 Sat by Pulse 100 100 100 Oximetry 11/03/20 11/03/20 11/03/20 00:30 01:00 01:30 Temperature Pulse Rate 67 69 70 Pulse Rate [ From Monitor] Respiratory 11 L 10 L 13 Rate Respiratory Rate [right leg ] Blood Pressure 101/63 105/68 115/67 O2 Sat by Pulse 100 100 100 Oximetry 11/03/20 11/03/20 11/03/20 02:00 02:30 03:00 Temperature Pulse Rate 72 66 67 Pulse Rate [ From Monitor] Respiratory 14 11 L 10 L Rate Respiratory Rate [right leg ] Blood Pressure 103/72 93/56 103/60 O2 Sat by Pulse 100 100 100 Oximetry 11/03/20 11/03/20 11/03/20 03:30 04:00 04:30 Temperature 97.9 F Pulse Rate 73 71 67 Pulse Rate [ 67 From Monitor] Respiratory 14 12 19 Rate Respiratory Rate [right leg ] Blood Pressure 98/60 89/64 95/56 O2 Sat by Pulse 100 100 100 Oximetry 11/03/20 11/03/20 11/03/20 05:00 05:30 06:00 Temperature Pulse Rate 71 65 64 Pulse Rate [ 67 From Monitor] Respiratory 14 15 15 Rate Respiratory Rate [right leg ] Blood Pressure 94/57 89/57 99/60 O2 Sat by Pulse 100 100 100 Oximetry 11/03/20 11/03/20 11/03/20 06:30 07:00 07:30 Temperature 98.3 F Pulse Rate 66 65 70 Pulse Rate [ From Monitor] Respiratory 15 10 L 12 Rate Respiratory Rate [right leg ] Blood Pressure 109/62 94/60 93/57 O2 Sat by Pulse 100 100 100 Oximetry 11/03/20 11/03/20 11/03/20 07:57 08:00 08:30 Temperature Pulse Rate 70 86 Pulse Rate [ 67 From Monitor] Respiratory 15 11 L Rate Respiratory Rate [right leg ] Blood Pressure 96/51 111/74 O2 Sat by Pulse 100 93 100 Oximetry 11/03/20 11/03/20 11/03/20 09:00 09:30 09:45 Temperature Pulse Rate 90 86 86 Pulse Rate [ From Monitor] Respiratory 11 L 10 L Rate Respiratory 18 Rate [right leg ] Blood Pressure 105/72 93/60 93/60 O2 Sat by Pulse 100 99 Oximetry 11/03/20 11/03/20 09:46 10:00 Temperature Pulse Rate 82 93 H Pulse Rate [ 99 H From Monitor] Respiratory 13 Rate Respiratory Rate [right leg ] Blood Pressure 88/60 103/80 O2 Sat by Pulse 100 Oximetry - EENT EENT: PERRL - Respiratory Respiratory: chest non-tender, lungs clear - Cardiovascular Cardiovascular: normal S1, normal S2 Extremities: no peripheral edema bilat - Gastrointestinal Gastrointestinal: normoactive bowel sounds - Integumentary Integumentary: normal - Neurologic Cranial nerve examination: PERRL, EOMI, other (right facial droop ) Speech examination: motor aphasia Detailed motor examination: other (worsening of weakness right upper and lower ) - Laboratory Findings CBC and BMP: 11/02/20 22:28 11/02/20 15:06 Abnormal Lab Findings: Abnormal Labs 10/23/20 10/23/20 10/23/20 13:32 18:23 18:23 WBC Hgb Hct D-Dimer 4139.61 H Heparin Anti-Xa Level Sodium Chloride 109.1 H BUN Glucose Calcium Lactate Dehydrogenase 334 H C-Reactive Protein 2.50 H NT-Pro-B Natriuret Pep 5806 H TSH 10/23/20 10/23/20 10/26/20 18:23 18:23 05:34 WBC Hgb Hct D-Dimer Heparin Anti-Xa Level Sodium Chloride BUN 30 H Glucose 120 H Calcium Lactate Dehydrogenase C-Reactive Protein NT-Pro-B Natriuret Pep TSH 7.100 H 6.540 H 10/27/20 10/28/20 11/02/20 08:55 05:25 07:17 WBC 15.8 H Hgb Hct D-Dimer Heparin Anti-Xa Level Sodium Chloride BUN 28 H 28 H Glucose 124 H 110 H Calcium 8.2 L Lactate Dehydrogenase C-Reactive Protein NT-Pro-B Natriuret Pep TSH 11/02/20 11/02/20 11/02/20 07:17 15:06 21:25 WBC Hgb 15.7 H Hct 47.5 H D D-Dimer Heparin Anti-Xa Level 1.63 H Sodium 136 L Chloride BUN 33 H Glucose 107 H Calcium 7.9 L Lactate Dehydrogenase C-Reactive Protein NT-Pro-B Natriuret Pep TSH 11/02/20 11/03/20 22:28 05:47 WBC 21.8 H Hgb Hct D-Dimer Heparin Anti-Xa Level < 0.10 L Sodium Chloride BUN Glucose Calcium Lactate Dehydrogenase C-Reactive Protein NT-Pro-B Natriuret Pep TSH
--- NOTE | 2020-11-03 12:00 | Progress Note ---
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 Acute on chronic systolic heart failure exacerbation. Acute hypoxemic respiratory failure. 10/24/2020 Acute CVA with right hemiparesis PT and OT 10/25/2020 Acute CVA with right hemiplegia Rehab consult requested Ejection fraction is 35 to 40% 10/26/2020 patient with acute CVA and right-sided hemiparesis PT evaluated the patient and recommended acute rehab Case management processing the request Possible discharge in 1 to 2 days if stable 10/27/2020; patient is clinically stable, awaiting rehab/SNF placement DC planning per Case management. 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 No new complain. Clinically stable Patient is going for KELLY today. DC planning to rehab/SNF when cleared by neurology. DC planning per case management 10/29/20 patient is doing slightly better. No new complain. Clinically stable, continue physical therapy occupational therapy. Patient is going for KELLY on Sunday. DC planning to rehab/SNF after KELLY on Sunday. DC planning per case management 10/30/20 patient is sitting in chair. No new complain. Clinically stable, continue physical therapy occupational therapy. Patient is going for KELLY on Sunday. Awaiting DC planning to rehab/SNF after KELLY on Sunday. 10/31/20 patient is seen and examined. No new complain. Clinically stable, continue physical therapy occupational therapy. Patient is going for KELLY on Sunday. Awaiting DC planning to rehab/SNF after KELLY on Sunday. 11/01/20 Patient is seen and examined Patient with acute CVA and right-sided hemiparesis Patient is evaluated by PT and recommended acute rehab Patient is going for KELLY today Patient is waiting for DC planning to rehab/SNF after KELLY. 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 11/02/2020. KELLY revealed left atrial appendage thrombus. Mildly dilated left ventricle with mild left ventricular hypertrophy with moderate global left ventricular hypokinesis with EF of 40 to 45%. Anticoagulation per cardiology recommendations. Physical therapy recommendations for acute rehab. 11/03/2020. Patient appears to have worsening aphasia and worsening right-sided weakness today per neurology. MRI brain stat. Leukocytosis likely leukemoid reaction from compartment syndrome. Patient is s/p right lower extremity thombectomy with 4 compartment fasciotomy yesterday. Bleeding from incisions over night. Consider ID consultation. Start empiric antibiotics. History Interval history: No new issues overnight. Hospitalist Physical - Constitutional Vitals: Temp Pulse Resp BP Pulse Ox 97.5 F L 99 H 13 103/80 99 11/03/20 11:47 11/03/20 10:00 11/03/20 10:00 11/03/20 10:00 11/03/20 10:00 General appearance: Present: no acute distress - EENT Eyes: Present: PERRL, EOM intact ENT: hearing intact, clear oral mucosa, dentition normal - Neck Neck: Present: supple, normal ROM - Respiratory Respiratory effort: normal Respiratory: bilateral: CTA - Cardiovascular Rhythm: regular Heart Sounds: Present: S1 & S2. Absent: gallop, rub - Extremities Extremities: no ischemia, No edema, Full ROM - Abdominal General gastrointestinal: soft, non-tender, non-distended, normal bowel sounds - Integumentary Integumentary: Present: clear, warm, dry - Neurologic Neurologic: CNII-XII intact, moves all extremities HEART Score - HEART Score Troponin: Troponin T 0.026 ng/mL (0.00-0.029) 10/23/20 16:39 Results - Labs CBC & Chem 7: 11/02/20 22:28 11/02/20 15:06 Labs: Laboratory Last Values WBC 21.8 K/mm3 (4.5-11.0) H 11/02/20 22:28 RBC 4.65 M/mm3 (3.65-5.03) 11/02/20 22:28 Hgb 13.1 gm/dl (11.8-15.2) 11/02/20 22:28 Hct 39.4 % (35.5-45.6) D 11/02/20 22:28 MCV 85 fl (84-94) 11/02/20 22:28 MCH 28 pg (28-32) 11/02/20 22:28 MCHC 33 % (32-34) 11/02/20 22:28 RDW 13.8 % (13.2-15.2) 11/02/20 22:28 Plt Count 288 K/mm3 (140-440) 11/02/20 22:28 Lymph % (Auto) 27.8 % (13.4-35.0) 10/23/20 13:32 [place] % (Auto) 6.0 % (0.0-7.3) 10/23/20 13:32 Eos % (Auto) 1.6 % (0.0-4.3) 10/23/20 13:32 Baso % (Auto) 0.7 % (0.0-1.8) 10/23/20 13:32 Lymph # (Auto) 1.5 K/mm3 (1.2-5.4) 10/23/20 13:32 [place] # (Auto) 0.3 K/mm3 (0.0-0.8) 10/23/20 13:32 Eos # (Auto) 0.1 K/mm3 (0.0-0.4) 10/23/20 13:32 Baso # (Auto) 0.0 K/mm3 (0.0-0.1) 10/23/20 13:32 Seg Neutrophils % 63.9 % (40.0-70.0) 10/23/20 13:32 Seg Neutrophils # 3.4 K/mm3 (1.8-7.7) 10/23/20 13:32 PT 14.1 Sec. (12.2-14.9) 11/02/20 15:06 INR 1.11 (0.87-1.13) 11/02/20 15:06 APTT 26.0 Sec. (24.2-36.6) 11/02/20 15:06 D-Dimer 4139.61 ng/mlDDU (0-234) H 10/23/20 18:23 Heparin Anti-Xa Level < 0.10 U.I./ml (0.3-0.7) L 11/03/20 05:47 Sodium 136 mmol/L (137-145) L 11/02/20 07:17 Potassium 4.9 mmol/L (3.6-5.0) 11/02/20 07:17 Chloride 103.9 mmol/L (98-107) 11/02/20 07:17 Carbon Dioxide 28 mmol/L (22-30) 11/02/20 07:17 Anion Gap 9 mmol/L 11/02/20 07:17 BUN 33 mg/dL (9-20) H 11/02/20 07:17 Creatinine 1.2 mg/dL (0.8-1.3) 11/02/20 15:06 Estimated GFR > 60 ml/min 11/02/20 15:06 BUN/Creatinine Ratio 30 % 11/02/20 07:17 Glucose 107 mg/dL (75-100) H 11/02/20 07:17 POC Glucose 85 mg/dL (70-105) 10/23/20 17:00 Calcium 7.9 mg/dL (8.4-10.2) L 11/02/20 07:17 Magnesium 2.20 mg/dL (1.7-2.3) 10/23/20 20:33 Ferritin 238.5 ng/mL (30.0-300.0) 10/23/20 18:23 Total Bilirubin 0.80 mg/dL (0.1-1.2) 10/23/20 13:32 AST 13 units/L (5-40) 10/23/20 13:32 ALT 13 units/L (7-56) 10/23/20 13:32 Alkaline Phosphatase 67 units/L (35-129) 10/23/20 13:32 Lactate Dehydrogenase 334 units/L (91-180) H 10/23/20 18:23 Troponin T 0.026 ng/mL (0.00-0.029) 10/23/20 16:39 C-Reactive Protein 2.50 mg/dL (0.00-1.30) H 10/23/20 18:23 NT-Pro-B Natriuret Pep 5806 pg/mL (0-900) H 10/23/20 13:32 Total Protein 7.3 g/dL (6.3-8.2) 10/23/20 13:32 Albumin 4.1 g/dL (3.9-5) 10/23/20 13:32 Albumin/Globulin Ratio 1.3 % 10/23/20 13:32 Triglycerides 60 mg/dL (2-149) 10/24/20 09:29 Cholesterol 139 mg/dL (50-199) 10/24/20 09:29 LDL Cholesterol Direct 87 mg/dL (50-130) 10/24/20 09:29 HDL Cholesterol 46 mg/dL (40-59) 10/24/20 09:29 Cholesterol/HDL Ratio 3.02 % 10/24/20 09:29 Procalcitonin < 0.05 ng/mL (<0.15) 10/23/20 18:23 TSH 6.540 mlU/mL (0.270-4.200) H 10/23/20 18:23 TSH 7.100 mlU/mL (0.270-4.200) H 10/23/20 18:23 Free T4 1.33 ng/dL (0.76-1.46) 10/23/20 18:23 Coronavirus (PCR) Negative (Negative) 10/24/20 09:57 Blood Type O POSITIVE 11/02/20 15:00 Antibody Screen Negative 11/02/20 15:00 [place]/IV: Voiding Method Condom Catheter Active Medications - Current Medications Current Medications: Generic Name Dose Route Start Last Admin Trade Name Freq PRN Reason Stop Dose Admin Acetaminophen 650 mg 10/23/20 20:00 Acetaminophen 325 Mg Tab PO Q4H PRN Pain, Mild (1-3) Ascorbic Acid 500 mg 10/23/20 22:00 11/03/20 09:46 Ascorbic Acid 500 Mg Tab PO 500 mg BID ALEX Administration Aspirin 325 mg 10/24/20 10:00 11/03/20 09:46 Aspirin 325 Mg Tab PO 325 mg QDAY ALEX Administration Atorvastatin Calcium 40 mg 10/23/20 22:00 11/02/20 22:14 Atorvastatin 40 Mg Tab PO 40 mg QHS ALEX Administration Bisacodyl 10 mg 10/23/20 20:00 Bisacodyl 10 Mg Rect Supp [place] QDAY PRN Constipation Cholecalciferol 1,000 unit 10/24/20 10:00 11/03/20 09:46 Cholecalciferol (Vit D3) 1000 Unit (25 Mcg) Tab PO 1,000 unit QDAY ALEX Administration Docusate Sodium 100 mg 11/02/20 12:00 11/03/20 09:45 Docusate Sodium 100 Mg Cap PO 100 mg BID ALEX Administration Heparin Sodium (Porcine) 3,900 unit 11/02/20 13:30 Heparin 10,000 Units/10 Ml Vial 40 unit/kg (3900 unit) IV Q6H PRN Anti-Xa Assay < 0.1 units/ml Heparin Sodium/Sodium Chloride 25,000 unit in 500 mls @ 29 mls/hr 11/02/20 13:00 11/03/20 06:35 Heparin/ 0.45% Nacl-25,000 Unit/500 Ml IV 1,360 units/hr TITR LAEX 27.2 mls/hr Titration Protocol 1,450 UNITS/HR Lisinopril 5 mg 10/27/20 08:27 11/03/20 09:46 Lisinopril 5 Mg Tab PO Not Given QDAY ALEX Magnesium Hydroxide 30 ml 10/23/20 20:00 10/29/20 15:01 Magnesium Hydroxide (Mom) Oral Liqd Udc PO 30 ml Q4H PRN Administration Constipation Methylprednisolone Sodium Succinate 40 mg 11/02/20 12:00 11/03/20 09:46 Methylprednisolone Sod Succinate 40 Mg/1 Ml Inj IV 40 mg Q12HR ALEX Administration Metoclopramide HCl 10 mg 10/23/20 20:00 Metoclopramide 10 Mg Tab PO Q6H PRN Nausea And Vomiting Metoprolol Tartrate 6.25 mg 10/27/20 10:00 11/03/20 09:45 Metoprolol Tartrate 25 Mg Tab PO 6.25 mg BID ALEX Administration Ondansetron HCl 4 mg 10/23/20 20:00 Ondansetron 4 Mg/2 Ml Inj IV Q8H PRN Nausea And Vomiting Oxycodone/Acetaminophen 1 tab 11/03/20 09:27 Oxycodone /Acetaminophen 5-325mg Tab PO Q6H PRN Pain, Moderate (4-6) Promethazine HCl 25 mg 10/23/20 20:00 Promethazine 25 Mg Rect Supp [place] Q6H PRN Nausea And Vomiting Sodium Chloride 10 ml 10/23/20 20:00 10/28/20 22:36 Sodium Chloride 0.9% 10 Ml Flush Syringe IV 10 ml PRN PRN Administration LINE FLUSH Zinc Sulfate 220 mg 10/23/20 22:00 11/03/20 09:46 Zinc Sulfate 220 Mg Cap PO 220 mg BID ALEX Administration Nutrition/Malnutrition Assess - Dietary Evaluation Nutrition/Malnutrition Findings: Nutrition Notes Start: 10/24/20 11:33 Freq: Status: Active Protocol: Document 10/26/20 11:12 AL (Rec: 10/26/20 11:26 AL [id number]) Co-Sign 10/26/20 11:12 MK Nutrition Notes Initial or Follow up Reassessment Current Diagnosis Hypertension,Heart Failure, Respiratory Failure Other Pertinent Diagnosis suspected CVA, pneu Current Diet Regular Diet with thin liquids Labs/Tests BUN 30 BG 120 Pertinent Medications Solumedrol Height 5 ft 11 in Weight 89.5 kg [place] Body Weight (kg) 78.18 BMI 27.5 Intake Prior to Admission Poor Weight Status Overweight Subjective/Other Information F/U fo diet advancement. Pt. now on Regular diet with thin liquids. Pt states drinking Ensure Enlive BID. Diet and ONS well-tolerated. Breakfast this morning was tolerated at 90% Percent of energy/protein needs met: 138%/132% Burn Absent Trauma Absent Current % PO Good (75-100%) Minimum of two criteria No physical signs of malnutrition #1 Nutrition Diagnosis Predicted suboptimal energy intake As Evidenced by Signs and Symptoms Pt ate 90% of breakfast and tolerates Ensure Enlive BID. Diagnosis Progress(for reassessment Resolved documentation) Is patient on ventilator? No Is Patient Ambulatory and/or Out of Bed No REE-([facility]-confined to bed) 2018.196 Additional Notes Protein needs: 89 - 107g (1 - 1.2g/kgBW) fluid needs: 1 ml/kcal Nutrition Intervention Change Diet Order: Curent diet as ordered Add Supplement/Snack (indicate name/kcal d/c Ensure Enlive /protein ) Goal #1 Meet at least 75% of estimated energy and protein needs via PO Anticipated Discharge Needs: Cardiac Diet Revisit per MD consult or patient Sign Off request:
--- NOTE | 2020-11-03 12:33 | Magnetic Resonance Report ---
MR brain wo con INDICATION / CLINICAL INFORMATION: 70 years Male; worsening CVA. TECHNIQUE: Multiplanar, multisequence MR images of the brain were obtained. COMPARISON: The study is compared to previous MRI of 10/25/2020. FINDINGS: BRAIN / INTRACRANIAL CONTENTS: There has been interval evolutionary changes of the patchy areas of in farction involving the left trigonal region with previous MRI of 10/25/2020. Findings again include the parietal and temporal region with area measuring approximately 3.1 cm in greatest AP dimension with eccentric along the posterior left insula. There are also foci along the left frontoparietal junction . These regions are essentially unchanged at. However, there has been interval development of a 7 mm focus of acute infarction along the more superior medial left frontoparietal region. 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 The ventricular system has not significant changed in size or configuration. No developing extra- axial fluid collections or significant mass effect is identified. CRANIOCERVICAL JUNCTION: No significant abnormality. VASCULAR FLOW-VOIDS: The distal internal carotid arteries and vertebrobasilar system again demonstrat e appropriate signal voids. ORBITS: No significant abnormality of visualized orbits. SINUSES / MASTOIDS: There are mild inflammatory changes along the inferior left maxillary sinus. ADDITIONAL FINDINGS: None. IMPRESSION: 1. There have been interval evolutionary changes of the patchy areas of infarction involving the left trigonal region as detailed above. However, there has been a development of a 7 mm focus of acute in farction involving more superior left frontoparietal junction. Signer Name: Aleksey Pollack MD Signed: 11/03/2020 12:28 PM Workstation Name: [id number]
--- NOTE | 2020-11-03 13:05 | Consultation ---
History of Present Illness Consult date: 11/03/20 Requesting physician: TAMIA HUTCHINSON Reason for consult: other (Acute Limb Ischemia) History of present illness: PULMONARY/CCM CONSULT NOTE (Full dictation # [id number]) Please see dictated notes for full details Past History Past Medical History: hypertension, hypothyroidism, other (See HPI) Past Surgical History: thyroidectomy Social history: single. denies: smoking, alcohol abuse Family history: hypertension Medications and Allergies Allergies Allergy/AdvReac Type Severity Reaction Status Date / Time No Known Allergies Allergy Unverified 10/23/20 12:44 Home Medications Medication Instructions Recorded Confirmed Last Taken Type Levothyroxine Sodium 150 mcg PO DAILY 10/31/20 10/31/20 Unknown History [Levothyroxine] carvediloL [Coreg] 6.25 mg PO BID 10/31/20 10/31/20 Unknown History lisinopriL [Lisinopril] 10 mg PO DAILY 10/31/20 10/31/20 Unknown History Active Meds: Active Medications Acetaminophen (Acetaminophen 325 Mg Tab) 650 mg PO Q4H PRN PRN Reason: Pain, Mild (1-3) Ascorbic Acid (Ascorbic Acid 500 Mg Tab) 500 mg PO BID [facility] Last Admin: 11/03/20 09:46 Dose: 500 mg Documented by: Aspirin (Aspirin 325 Mg Tab) 325 mg PO QDAY [facility] Last Admin: 11/03/20 09:46 Dose: 325 mg Documented by: Atorvastatin Calcium (Atorvastatin 40 Mg Tab) 40 mg PO QHS [facility] Last Admin: 11/02/20 22:14 Dose: 40 mg Documented by: Bisacodyl (Bisacodyl 10 Mg Rect Supp) 10 mg NH QDAY PRN PRN Reason: Constipation Cholecalciferol (Cholecalciferol (Vit D3) 1000 Unit (25 Mcg) Tab) 1,000 unit PO QDAY [facility] Last Admin: 11/03/20 09:46 Dose: 1,000 unit Documented by: Docusate Sodium (Docusate Sodium 100 Mg Cap) 100 mg PO BID [facility] Last Admin: 11/03/20 09:45 Dose: 100 mg Documented by: Heparin Sodium (Porcine) (Heparin 10,000 Units/10 Ml Vial) 3,900 unit 40 unit/kg (3900 unit) IV Q6H PRN PRN Reason: Anti-Xa Assay < 0.1 units/ml Heparin Sodium/Sodium Chloride (Heparin/ 0.45% Nacl-25,000 Unit/500 Ml) 25,000 unit in 500 mls @ 29 mls/hr IV TITR [facility]; Protocol Last Titration: 11/03/20 06:35 Dose: 1,360 units/hr, 27.2 mls/hr Documented by: Levofloxacin/Dextrose (Levaquin 750mg/150ml) 750 mg in 150 mls @ 100 mls/hr IV Q24H [facility]; Protocol Lisinopril (Lisinopril 5 Mg Tab) 5 mg PO QDAY [facility] Last Admin: 11/03/20 09:46 Dose: Not Given Documented by: Magnesium Hydroxide (Magnesium Hydroxide (Mom) Oral Liqd Udc) 30 ml PO Q4H PRN PRN Reason: Constipation Last Admin: 10/29/20 15:01 Dose: 30 ml Documented by: Methylprednisolone Sodium Succinate (Methylprednisolone Sod Succinate 40 Mg/1 Ml Inj) 40 mg IV Q12HR [facility] Last Admin: 11/03/20 09:46 Dose: 40 mg Documented by: Metoclopramide HCl (Metoclopramide 10 Mg Tab) 10 mg PO Q6H PRN PRN Reason: Nausea And Vomiting Metoprolol Tartrate (Metoprolol Tartrate 25 Mg Tab) 6.25 mg PO BID [facility] Last Admin: 11/03/20 09:45 Dose: 6.25 mg Documented by: Ondansetron HCl (Ondansetron 4 Mg/2 Ml Inj) 4 mg IV Q8H PRN PRN Reason: Nausea And Vomiting Oxycodone/Acetaminophen (Oxycodone /Acetaminophen 5-325mg Tab) 1 tab PO Q6H PRN PRN Reason: Pain, Moderate (4-6) Promethazine HCl (Promethazine 25 Mg Rect Supp) 25 mg NH Q6H PRN PRN Reason: Nausea And Vomiting Sodium Chloride (Sodium Chloride 0.9% 10 Ml Flush Syringe) 10 ml IV PRN PRN PRN Reason: LINE FLUSH Last Admin: 10/28/20 22:36 Dose: 10 ml Documented by: Zinc Sulfate (Zinc Sulfate 220 Mg Cap) 220 mg PO BID [facility] Last Admin: 11/03/20 09:46 Dose: 220 mg Documented by: Physical Examination Vital signs: Vital Signs Temp Pulse Resp BP Pulse Ox 97.7 F 82 18 168/115 98 10/23/20 12:47 10/23/20 12:47 10/23/20 12:47 10/23/20 12:47 10/23/20 12:47 Results - Laboratory Findings CBC and BMP: 11/02/20 22:28 11/02/20 15:06 PT/INR, D-dimer PT 14.1 Sec. (12.2-14.9) 11/02/20 15:06 INR 1.11 (0.87-1.13) 11/02/20 15:06 D-Dimer 4139.61 ng/mlDDU (0-234) H 10/23/20 18:23 Abnormal lab findings: Abnormal Labs 10/23/20 10/23/20 10/23/20 13:32 18:23 18:23 WBC Hgb Hct D-Dimer 4139.61 H Heparin Anti-Xa Level Sodium Chloride 109.1 H BUN Glucose Calcium Lactate Dehydrogenase 334 H C-Reactive Protein 2.50 H NT-Pro-B Natriuret Pep 5806 H TSH 10/23/20 10/23/20 10/26/20 18:23 18:23 05:34 WBC Hgb Hct D-Dimer Heparin Anti-Xa Level Sodium Chloride BUN 30 H Glucose 120 H Calcium Lactate Dehydrogenase C-Reactive Protein NT-Pro-B Natriuret Pep TSH 7.100 H 6.540 H 10/27/20 10/28/20 11/02/20 08:55 05:25 07:17 WBC 15.8 H Hgb Hct D-Dimer Heparin Anti-Xa Level Sodium Chloride BUN 28 H 28 H Glucose 124 H 110 H Calcium 8.2 L Lactate Dehydrogenase C-Reactive Protein NT-Pro-B Natriuret Pep TSH 11/02/20 11/02/20 11/02/20 07:17 15:06 21:25 WBC Hgb 15.7 H Hct 47.5 H D D-Dimer Heparin Anti-Xa Level 1.63 H Sodium 136 L Chloride BUN 33 H Glucose 107 H Calcium 7.9 L Lactate Dehydrogenase C-Reactive Protein NT-Pro-B Natriuret Pep TSH 11/02/20 11/03/20 22:28 05:47 WBC 21.8 H Hgb Hct D-Dimer Heparin Anti-Xa Level < 0.10 L Sodium Chloride BUN Glucose Calcium Lactate Dehydrogenase C-Reactive Protein NT-Pro-B Natriuret Pep TSH
[2020-11-03 13:46] LABS: Hematocrit 31.2 % (35.5-45.6); Hemoglobin 10.4 gm/dl (11.8-15.2); Mean Corpuscular HGB Conc 33 % (32-34); Mean Corpuscular Volume 85 fl (84-94); Platelet Count 271 K/mm3 (140-440); Red Blood Count 3.68 M/mm3 (3.65-5.03); Red Cell Distribution Width 14.2 % (13.2-15.2)
[2020-11-03 14:13] LABS: Calcium 7.6 mg/dL (8.4-10.2)
--- NOTE | 2020-11-03 14:22 | Post Anesthesia Evaluation ---
- Post Anesthesia Evaluation Patient Participated: Yes (Pt nonverbal at the moment and per pt's nurse report) Airway Patent: Yes Stable Respiratory Function: Yes Nausea/Vomiting: No Temp > 96.8F: Yes Pain Manageable: Yes Adequeate Hydration: Yes Anesthesia Complications: No Block Receding Appropriately: Not Applicable Patient on Ventilator: No Other Comments: Pt nonverbal at the moment, pt nods head while answering questuions and maintaining eye contact. Per pt's nurse report pt has been "in a nd out" as pt's baseline - not anesthesia related. Addiotional tests done today to dettermine progression of stroke.
[2020-11-03] MEDS: FAMOTIDINE 20 MG/2 ML INJ IV SCH ×2 (15:11→21:34)
[2020-11-03] MEDS ORDERED: SODIUM CHLORIDE 0.9% 500 ML 500 ML IV ONE ×2 (16:40→18:12)
[2020-11-03] MEDS ORDERED: ROCURONIUM 50 MG/5 ML INJ IV ONE ×2 (16:43→17:09)
[2020-11-03] MEDS ORDERED: SUCCINYLCHOLINE CHLORIDE 200 MG/10 ML INJ MDV ONE (16:44)
[2020-11-03] MEDS ORDERED: LIP THERAPY VASELINE TP PRN (16:46)
[2020-11-03] MEDS ORDERED: NORepinephrine/NS 4 MG-250 ML 4 MG/250 ML BAG IV ONE (16:46)
[2020-11-03] MEDS ORDERED: MINERAL OIL/PETROLATUM, WHITE OPHTH OINT 3.5 GM OU PRN (16:46)
[2020-11-03] MEDS ORDERED: ETOMIDATE 20 MG/10 ML INJ IV ONE ×2 (16:48→18:08)
[2020-11-03] MEDS: NORepinephrine/NS 8 MG-250 ML 8 MG/250 ML INFUS..BTL IV SCH (17:00)
[2020-11-03] MEDS: SODIUM CHLORIDE 0.9% 500 ML 500 ML IV SCH ×3 (17:12→23:40)
[2020-11-03] MEDS: fentaNYL DRIP Premix 2,000 MCG/100 ML BAG IV SCH (17:30)
--- NOTE | 2020-11-03 17:57 | XRay Report ---
ABDOMEN 1 VIEW 11/03/2020 4:50 PM INDICATION / CLINICAL INFORMATION: NGT PLACEMENT. COMPARISON: None available. FINDINGS: TUBES / LINES: There is a nasogastric tube with the tip overlying the distal stomach. BOWEL GAS PATTERN: There is mild gaseous distention of the stomach and several proximal small bowel l oops. No mass effect. FREE AIR / EXTRALUMINAL GAS: None. ADDITIONAL FINDINGS: No significant additional findings. IMPRESSION: Nasogastric tube tip overlies the distal stomach. Signer Name: Patrice Bonilla MD Signed: 11/03/2020 5:53 PM Workstation Name: [id number]
[2020-11-03] MEDS ORDERED: DOBUTamine/D5W 500 MG/250 ML 500 MG/250 ML BAG IV SCH (18:00)
--- NOTE | 2020-11-03 18:01 | XRay Report ---
CHEST 1 VIEW 11/03/2020 5:35 PM INDICATION / CLINICAL INFORMATION: ETT placement. COMPARISON: None available. FINDINGS: SUPPORT DEVICES: NG tube is within the stomach HEART / MEDIASTINUM: No significant abnormality. LUNGS / PLEURA: Bilateral pulmonary opacities have improved since prior exam. No pneumothorax. ADDITIONAL FINDINGS: No significant additional findings. IMPRESSION: Interval improvement since prior exam. Signer Name: Brett Hicks MD Signed: 11/03/2020 5:57 PM Workstation Name: [id number]
--- NOTE | 2020-11-03 18:09 | Event Note ---
Date: 11/03/20 Decompenated with hypotension and worsening mental status - started on vasopressors - intubated RSI after talking with his son - ABG post intubation - fentanyl for sedation - discussed care p[lavelle with vascular surgeon ... 45" CCT
[2020-11-03] MEDS ORDERED: SODIUM CHLORIDE 0.9% 500 ML 500 ML IV SCH (19:59)
--- NOTE | 2020-11-03 20:02 | Operative Report ---
Operative Report Operative Report: Date of Procedure: 11/03/2020 Pre-operative Diagnosis: Need for Central Venous Access Post-operative Diagnosis: Same Procedure(s): 1. Ultrasound-Guided Access Right Internal Jugular Vein 2. Placement of 16 [place] Triple-Lumen Catheter Surgeon: Ervin Menendez M.D. Plunger Scoop Operator: Dyllan Anesthesia: 2% Lidocaine EBL: Minimal Counts: Correct Complications: None Condition: Critical but Stable Findings: All ports easily aspirated and flushed at the completion of the case. Specimen: None Indication: The patient is a 70-year-old man with a history of stroke in recent open thrombectomy with four-quadrant fasciotomy of his right lower extremity. He recently required intubation for a stroke with mental status changes and is in need of pressor support secondary to hypotension from bleeding. He is in need of central venous access to begin the pressors. His family was given the risk, benefits, and alternative procedures and consented to the procedure. Description of Procedure: The procedure was performed in the intensive care unit at the patient's bedside. After informed consent was obtained ultrasound was used to identify the right internal jugular vein and confirm patency. Once patency was confirmed the overlying skin and soft tissue was anesthetized with lidocaine. An 11 blade was used to make a small stab incision and then an 18-gauge access needle was used with ultrasound guidance to enter the right internal jugular vein. A 0.035 J- wire was advanced into the vein and the tract was dilated. The dilator was removed leaving the wire in place and the 16 [place] triple-lumen catheter was advanced into position by Seldinger technique. The wire was then removed and all ports were easily aspirated and flushed with saline. The catheter was then secured in place with 3-0 silk sutures and then dressed with a sterile dressing. The patient tolerated the procedure well. All sponge, needle, and instrument counts were correct. The patient remained in the critical care unit in critical but stable condition.
--- NOTE | 2020-11-03 20:54 | XRay Report ---
CHEST 1 VIEW 1946 INDICATION / CLINICAL INFORMATION: central line placement COMPARISON: [id number] FINDINGS: SUPPORT DEVICES: Right jugular central line has been inserted with tip in the area of the atrial cava l junction. Other device positioning appears unchanged. HEART / MEDIASTINUM: Stable LUNGS / PLEURA: No significant pulmonary or pleural abnormality. No pneumothorax. ADDITIONAL FINDINGS: No significant additional findings. Signer Name: Diego Kilpatrick MD Signed: 11/03/2020 8:49 PM Workstation Name: [id number]
[2020-11-03] MEDS ORDERED: SODIUM CHLORIDE 0.9% 1000 ML 1,000 ML ONE ×2 (21:18→21:44)
--- NOTE | 2020-11-04 01:10 | Consultation ---
DATE OF CONSULTATION: 11/03/2020 PULMONARY CRITICAL CARE CONSULTATION CONSULTING PHYSICIAN: Ervin Menendez MD REASON FOR CONSULT: Acute limb ischemia secondary to thromboembolic arterial thrombosis, status post thrombectomy and fasciotomy. CHIEF COMPLAINT AND HISTORY OF PRESENT ILLNESS: The patient is a now 70-year-old male with past medical history included hypertension, came into the Emergency Room about 9 days ago secondary with confusion, diminished cognition, unable to give a history according to his son who gave the history over the phone at that time, he had experienced increasing confusion and weakness in the preceding 2 days. The son also mentioned decreased exercise tolerance, shortness of breath/dyspnea on exertion, reduced mobility, decreased oral intake. In the emergency room, his clinical exam was consistent with a cerebrovascular accident. A code stroke was called. He was also found to have symptoms consistent with bilateral pulmonary infiltrates either CHF or bilateral pneumonia. He was hypoxemic. He did not require intubation and was admitted as a CHF exacerbation with an acute cerebrovascular accident. An echo revealed ejection fraction of 30-35%. He was seen by the neurologist who diagnosed him with an acute embolic stroke. A KELLY was recommended, a long-term cardiac monitoring. The patient was amongst other things found to have dysarthria and dysphagia as well as right-sided weakness with an aphasia. During the admission, a vascular consult was placed, I believe on the secondary to right lower extremity ischemia. He had earlier been diagnosed with a left atrial appendage thrombus, a left MCA stroke and paroxysmal atrial fibrillation. Evaluation revealed extensive arterial thrombus of the right lower extremity evolving the tibialis, popliteal, distal to mid superficial femoral artery as well as a venous thrombus in the right peroneal vein. He was taken into the operating room yesterday. He had an open thrombectomy of the right leg through a common femoral arteriotomy and then a right leg 4-compartment fasciotomy. Post-procedure, he was brought into the intensive care unit. When I stopped by to see him, he was resting in bed. He was on supplemental oxygen 2 liters nasal cannula. Continue to have an aphasia, both expressive and receptive. He denied any chest pain. He had just had a repeat MRI for worsening neurological symptoms prior to my arrival, but was in recovery at the time I saw him. I do not have any history of vomiting or overt aspiration. The patient seems to deny himself being a tobacco abuser. The above is as much of the history of presentation as I have. PAST MEDICAL HISTORY: Again, hypertension, hypothyroidism. He is obese. PAST SURGICAL HISTORY: He has had a thyroidectomy in the past. MEDICATIONS: He was on at the time I stopped by to see him, according to the medication administration record included the following: Tylenol 650 mg p.o. q.4 hours p.r.n. mild pain or fevers, vitamin C 500 mg p.o. b.i.d., aspirin 325 mg p.o. daily, Lipitor 40 mg p.o. at bedtime, vitamin D3 1000 units p.o. daily, Colace 100 mg p.o. b.i.d. He was on IV heparin drip at 1450 units per hour adjusted per protocol, Levaquin 750 mg IV daily, Zestril 5 mg p.o. daily, Solu-Medrol 40 mg IV q. 12 hours, metoprolol 6.25 mg p.o. b.i.d., Percocet 5/325 one tablet p.o. q.6 hours p.r.n. moderate pain. Zinc sulfate 220 mg p.o. b.i.d. ALLERGIES: No known drug allergies. DIET: Obese gentleman, acute weight loss or gain, history is unknown. SOCIAL HISTORY: Apparently lives in the community. According to the records and to me also he denied alcohol, tobacco, or illicit drug use or abuse. FAMILY HISTORY: There is a family history of hypertension. REVIEW OF SYSTEMS: Difficult to obtain secondary to the patient's medical and mental condition. Since he has been here, no gross hematochezia or melena, no gross hematuria, no hematemesis, no hemoptysis, no witnessed seizures. He has had neurological deficits. Complete 13-system review of systems was obtained as best as I could. Pertinent positives and/or negatives as in body of history above, otherwise noncontributory. PHYSICAL EXAMINATION: VITAL SIGNS: At presentation and since really he has been afebrile on presentation temperature 97.7 degrees Fahrenheit, pulse of 82, respiratory rate of 18, blood pressure 168/115, O2 sats were 98% at that time, I believe on 2 liters nasal cannula. GENERAL: He is an elderly looking obese male, normocephalic. Talking to me, really without significantly increased respiratory effort at rest. HEENT: Anicteric, No conjunctival erythema. Oropharynx was moist. NECK: No jugular venous distention, no thyromegaly. Grossly, there were no palpable lymph nodes in the supraclavicular or submandibular lymph node chains. LUNGS: Auscultation of both lung mcnally unremarkable. Lungs are clear with good bilateral air movement, perhaps slightly diminished bilateral air movement. HEART: Sounds 1 and 2 are heard at the time of my evaluation, regular tachycardia without overt rubs or murmurs. On the monitor, it was a wide complex tachycardia. ABDOMEN: Soft. Bowel sounds are positive, nontender, protuberant. No palpable hepatosplenomegaly. EXTREMITIES: Without overt digital clubbing or cyanosis. He has some pedal edema to the right lower extremity in particular, right lower extremity is in a dressing post-fasciotomy. Pedal pulses are palpable. No cyanosis. NEUROLOGIC: Pupils equal, round, about 4 mm, reactive to light. Extraocular muscle movements are intact. His tongue appears to deviates slightly to the left side on protrusion. The power on the right side is about 3/5. Movement in the right lower extremity is limited also by pain and fasciotomy. SKIN: Normal turgor without overt cellulitis or rash. He does have the postoperative changes. Please see the wound care nurses' notes for full description of skin. PSYCHIATRIC: His mood and affect, anxious. He has poor judgment and insight. LABORATORY DATA: From my review are as follows: Admission white cell count 5400, hemoglobin 14.3, hematocrit 42.7, platelet count of 237. D-dimer was elevated at 4139. Serum sodium was 145, potassium 4.1, chloride 109, bicarbonate 25, BUN 14, creatinine 1.2, glucose of 95. Liver function tests essentially within normal limits. LDH was up slightly at 334. BNP was elevated 5806 at presentation. LDL cholesterol 87. TSH elevated at 6.54, free T4 within normal limits. Coronavirus PCR is negative. White count is 21,800 today, hemoglobin is 13.1. No blood cultures. Chest x-ray at presentation essentially shows cardiomegaly, small bilateral pleural effusions, bibasilar related predominant/perihilar infiltrates definitely consistent with a CHF exacerbation and pulmonary edema. His initial CT scan of his brain showed no acute changes. The CT angio of head and neck did not show any significant hemodynamic stenosis. A repeat CT scan of the head yesterday showed an evolving subacute ischemic infarct on the left side, I believe left MCA distribution. He has just done MRI today. It reports interval evolutionary changes of the patchy areas of infarction involving the left trigonal region; however, there has been development of a 7 mm focus of acute infarction involving the more superior left frontoparietal junction. A CT of his chest was also done on the day of admission showed a small pericardial effusion, small bilateral pleural effusions and interstitial edema/ground glass opacifications. ASSESSMENT: 1. Acute hypoxemic respiratory failure. 2. Acute embolic cerebrovascular accident. 3. Acute limb ischemia, status post thrombectomy. 4. Left atrial appendage. 5. Acute congestive heart failure exacerbation. 6. Obesity. 7. History of hypothyroidism. 8. Leukocytosis. 9. Acute encephalopathy, toxic metabolic. PLAN: We will watch him in the intensive care unit for now. Thankfully, he is hemodynamically stable. Oxygen will be continued to keep sats greater than or equal to about 90%. Aspiration precautions will be maintained. We will have a short leash to make him n.p.o. He is swallowing his meals right now. A swallow evaluation will be ordered as necessary. Blood pressure is well controlled. I will order a 12-lead EKG. He had wide complex tachycardia up to the 120s when I came into the room, try and get a better handle of that, he was with a blood pressure at the time and speaking to me, albeit confused. We will continue full anticoagulation with the heparin in light of the left atrial appendage and he is embolic phenomena. I will put him on double dose PPI therapy considering he is fully anticoagulated. I will defer to Cardiology for management and optimize in the cardiomyopathy management. I will defer to the Vascular team for further management. Wound care will be per the Wound Care nurse and he is on a registered nurse. He may benefit from a psychiatric evaluation at some point; however, I do feel that most of his aphasias/dysarthria are related to his acute cerebrovascular injuries as well as he is a poor judgment and insight. Flu and pneumonia vaccination will be addressed per protocol. Thank you very much for the consult. We will follow along and make further recommendations as picture progresses/becomes clearer. He is critically ill at this time at high risk of from cardiopulmonary and neurologic system decompensation. At this time was I spent about 35 minutes of critical care time without overlap and excluding any procedural time that may be necessary. TID: [id number] RECEIPT: [id number] PING CASTANEDA
[2020-11-04 04:10] LABS: Hemoglobin 11.7 gm/dl (11.8-15.2); Mean Corpuscular HGB Conc 34 % (32-34); Mean Corpuscular Volume 87 fl (84-94); Platelet Count 184 K/mm3 (140-440); Red Blood Count 4.03 M/mm3 (3.65-5.03); Red Cell Distribution Width 14.8 % (13.2-15.2)
[2020-11-04 04:27] LABS: Calcium 7.2 mg/dL (8.4-10.2)
[2020-11-04 05:02] LABS: Total Cells Counted 100
[2020-11-04 05:03] LABS: Anisocytosis 1+; Burr Cells 1+; Platelet Estimate Consistent w Auto; Poikilocytosis 1+
[2020-11-04] MEDS: SODIUM CHLORIDE 0.9% 500 ML 500 ML IV SCH (05:06)
--- NOTE | 2020-11-04 06:00 | XRay Report ---
CHEST 1 VIEW 11/04/2020 4:48 AM INDICATION / CLINICAL INFORMATION: follow up respiratory failure. COMPARISON: Previous day. FINDINGS: SUPPORT DEVICES: Unchanged. HEART / MEDIASTINUM: Stable cardiomegaly. LUNGS / PLEURA: No significant pulmonary or pleural abnormality. No pneumothorax. ADDITIONAL FINDINGS: Persistent gastric distention. IMPRESSION: No significant change. Signer Name: Scooby Merchant MD Signed: 11/04/2020 5:56 AM Workstation Name: [id number]
[2020-11-04] MEDS: fentaNYL DRIP Premix 2,000 MCG/100 ML BAG IV SCH (06:24)
[2020-11-04] MEDS: NORepinephrine/NS 8 MG-250 ML 8 MG/250 ML INFUS..BTL IV SCH ×4 (07:15→21:25)
--- NOTE | 2020-11-04 09:22 | XRay Report ---
XR abdomen 1V ap INDICATION / CLINICAL INFORMATION: NGT Placement Confirmation. COMPARISON: 11/03/2020 FINDINGS/IMPRESSION: Nasogastric tube side port projects within the distal stomach. The distal tip is located over the dis bert stomach or proximal small bowel. Nonobstructive bowel gas pattern. Signer Name: Marlo Kessler MD Signed: 11/04/2020 9:18 AM Workstation Name: [id number]
--- NOTE | 2020-11-04 09:33 | Progress Note ---
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 Acute on chronic systolic heart failure exacerbation. Acute hypoxemic respiratory failure. 10/24/2020 Acute CVA with right hemiparesis PT and OT 10/25/2020 Acute CVA with right hemiplegia Rehab consult requested Ejection fraction is 35 to 40% 10/26/2020 patient with acute CVA and right-sided hemiparesis PT evaluated the patient and recommended acute rehab Case management processing the request Possible discharge in 1 to 2 days if stable 10/27/2020; patient is clinically stable, awaiting rehab/SNF placement DC planning per Case management. 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 No new complain. Clinically stable Patient is going for KELLY today. DC planning to rehab/SNF when cleared by neurology. DC planning per case management 10/29/20 patient is doing slightly better. No new complain. Clinically stable, continue physical therapy occupational therapy. Patient is going for KELLY on Sunday. DC planning to rehab/SNF after KELLY on Sunday. DC planning per case management 10/30/20 patient is sitting in chair. No new complain. Clinically stable, continue physical therapy occupational therapy. Patient is going for KELLY on Sunday. Awaiting DC planning to rehab/SNF after KELLY on Sunday. 10/31/20 patient is seen and examined. No new complain. Clinically stable, continue physical therapy occupational therapy. Patient is going for KELLY on Sunday. Awaiting DC planning to rehab/SNF after KELLY on Sunday. 11/01/20 Patient is seen and examined Patient with acute CVA and right-sided hemiparesis Patient is evaluated by PT and recommended acute rehab Patient is going for KELLY today Patient is waiting for DC planning to rehab/SNF after KELLY. 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 11/02/2020. KELLY revealed left atrial appendage thrombus. Mildly dilated left ventricle with mild left ventricular hypertrophy with moderate global left ventricular hypokinesis with EF of 40 to 45%. Anticoagulation per cardiology recommendations. Physical therapy recommendations for acute rehab. 11/03/2020. Patient appears to have worsening aphasia and worsening right-sided weakness today per neurology. MRI brain stat. Leukocytosis likely leukemoid reaction from compartment syndrome. Patient is s/p right lower extremity thombectomy with 4 compartment fasciotomy yesterday. Bleeding from incisions over night. Consider ID consultation. Start empiric antibiotics. 11/04/2020. Patient decompensated yesterday evening with hypotension and worsening mental status. Patient was started on vasopressors and intubated. Patient is currently intubated and on fentanyl for sedation. Patient with worsening leukocytosis. Lactic acidosis likely secondary to compartment syndrome. Patient is s/p right lower extremity thombectomy with 4 compartment fasciotomy on 11/02/2020. Levaquin started empirically yesterday. ID consultation today. Patient also with worsening creatinine secondary to acute kidney injury. History Interval history: Patient decompensated yesterday evening with hypotension and worsening mental status. Patient was started on vasopressors and intubated. Patient is currently intubated and on fentanyl for sedation. Hospitalist Physical - Constitutional Vitals: Temp Pulse Resp BP Pulse Ox 98.1 F 117 H 13 105/67 100 11/04/20 07:33 11/04/20 08:05 11/04/20 08:00 11/04/20 08:05 11/04/20 08:05 General appearance: Present: other (Intubated on fentanyl for sedation) - EENT Eyes: Present: PERRL, EOM intact ENT: hearing intact, clear oral mucosa, dentition normal - Neck Neck: Present: supple, normal ROM - Respiratory Respiratory effort: normal Respiratory: bilateral: CTA - Cardiovascular Rhythm: regular Heart Sounds: Present: S1 & S2. Absent: gallop, rub - Extremities Extremities: no ischemia, No edema, Full ROM - Abdominal General gastrointestinal: soft, non-tender, non-distended, normal bowel sounds - Integumentary Integumentary: Present: clear, warm, dry - Neurologic Neurologic: CNII-XII intact, moves all extremities HEART Score - HEART Score Troponin: Troponin T 0.026 ng/mL (0.00-0.029) 10/23/20 16:39 Results - Labs CBC & Chem 7: 11/04/20 04:00 11/04/20 04:00 Labs: Laboratory Last Values WBC 32.8 K/mm3 (4.5-11.0) H 11/04/20 04:00 RBC 4.03 M/mm3 (3.65-5.03) 11/04/20 04:00 Hgb 11.7 gm/dl (11.8-15.2) L 11/04/20 04:00 Hct 35.0 % (35.5-45.6) L 11/04/20 04:00 MCV 87 fl (84-94) 11/04/20 04:00 MCH 29 pg (28-32) 11/04/20 04:00 MCHC 34 % (32-34) 11/04/20 04:00 RDW 14.8 % (13.2-15.2) 11/04/20 04:00 Plt Count 184 K/mm3 (140-440) 11/04/20 04:00 Lymph % (Auto) 27.8 % (13.4-35.0) 10/23/20 13:32 [place] % (Auto) 6.0 % (0.0-7.3) 10/23/20 13:32 Eos % (Auto) 1.6 % (0.0-4.3) 10/23/20 13:32 Baso % (Auto) 0.7 % (0.0-1.8) 10/23/20 13:32 Lymph # (Auto) 1.5 K/mm3 (1.2-5.4) 10/23/20 13:32 [place] # (Auto) 0.3 K/mm3 (0.0-0.8) 10/23/20 13:32 Eos # (Auto) 0.1 K/mm3 (0.0-0.4) 10/23/20 13:32 Baso # (Auto) 0.0 K/mm3 (0.0-0.1) 10/23/20 13:32 Add Manual Diff Complete 11/04/20 04:00 Total Counted 100 11/04/20 04:00 Seg Neutrophils % 63.9 % (40.0-70.0) 10/23/20 13:32 Seg Neuts % (Manual) 82.0 % (40.0-70.0) H 11/04/20 04:00 Lymphocytes % (Manual) 10.0 % (13.4-35.0) L 11/04/20 04:00 Monocytes % (Manual) 7.0 % (0.0-7.3) 11/04/20 04:00 Metamyelocytes % 1.0 % 11/04/20 04:00 Nucleated RBC % Not Reportable 11/04/20 04:00 Seg Neutrophils # 3.4 K/mm3 (1.8-7.7) 10/23/20 13:32 Seg Neutrophils # Man 26.9 K/mm3 (1.8-7.7) H 11/04/20 04:00 Band Neutrophils # 0.0 K/mm3 11/04/20 04:00 Lymphocytes # (Manual) 3.3 K/mm3 (1.2-5.4) 11/04/20 04:00 Abs React Lymphs (Man) 0.0 K/mm3 11/04/20 04:00 Monocytes # (Manual) 2.3 K/mm3 (0.0-0.8) H 11/04/20 04:00 Eosinophils # (Manual) 0.0 K/mm3 (0.0-0.4) 11/04/20 04:00 Basophils # (Manual) 0.0 K/mm3 (0.0-0.1) 11/04/20 04:00 Metamyelocytes # 0.3 K/mm3 11/04/20 04:00 Myelocytes # 0.0 K/mm3 11/04/20 04:00 Promyelocytes # 0.0 K/mm3 11/04/20 04:00 Blast Cells # 0.0 K/mm3 11/04/20 04:00 WBC Morphology Not Reportable 11/04/20 04:00 Hypersegmented Neuts Not Reportable 11/04/20 04:00 Hyposegmented Neuts Not Reportable 11/04/20 04:00 Hypogranular Neuts Not Reportable 11/04/20 04:00 Smudge Cells Not Reportable 11/04/20 04:00 Toxic Granulation Not Reportable 11/04/20 04:00 Toxic Vacuolation Not Reportable 11/04/20 04:00 Dohle Bodies Not Reportable 11/04/20 04:00 Pelger-Huet Anomaly Not Reportable 11/04/20 04:00 Demario Rods Not Reportable 11/04/20 04:00 Platelet Estimate Consistent w auto 11/04/20 04:00 Clumped Platelets Not Reportable 11/04/20 04:00 Plt Clumps, EDTA Not Reportable 11/04/20 04:00 Large Platelets Not Reportable 11/04/20 04:00 Giant Platelets Not Reportable 11/04/20 04:00 Platelet Satelliting Not Reportable 11/04/20 04:00 Plt Morphology Comment Not Reportable 11/04/20 04:00 RBC Morphology Not Reportable 11/04/20 04:00 Dimorphic RBCs Not Reportable 11/04/20 04:00 Polychromasia Not Reportable 11/04/20 04:00 Hypochromasia Not Reportable 11/04/20 04:00 Poikilocytosis 1+ 11/04/20 04:00 Anisocytosis 1+ 11/04/20 04:00 Microcytosis Not Reportable 11/04/20 04:00 Macrocytosis Not Reportable 11/04/20 04:00 Spherocytes Not Reportable 11/04/20 04:00 Pappenheimer Bodies Not Reportable 11/04/20 04:00 Sickle Cells Not Reportable 11/04/20 04:00 Target Cells Not Reportable 11/04/20 04:00 Tear Drop Cells Not Reportable 11/04/20 04:00 Ovalocytes Not Reportable 11/04/20 04:00 Helmet Cells Not Reportable 11/04/20 04:00 Oliva-Hyrum Bodies Not Reportable 11/04/20 04:00 [place] Rings Not Reportable 11/04/20 04:00 Caryn Cells 1+ 11/04/20 04:00 Bite Cells Not Reportable 11/04/20 04:00 Crenated Cell Not Reportable 11/04/20 04:00 Elliptocytes Not Reportable 11/04/20 04:00 Acanthocytes (Spur) Not Reportable 11/04/20 04:00 Rouleaux Not Reportable 11/04/20 04:00 Hemoglobin C Crystals Not Reportable 11/04/20 04:00 Schistocytes Not Reportable 11/04/20 04:00 Malaria parasites Not Reportable 11/04/20 04:00 Lico Bodies Not Reportable 11/04/20 04:00 Hem Pathologist Commnt No 11/04/20 04:00 PT 14.1 Sec. (12.2-14.9) 11/02/20 15:06 INR 1.11 (0.87-1.13) 11/02/20 15:06 APTT 26.0 Sec. (24.2-36.6) 11/02/20 15:06 D-Dimer 4139.61 ng/mlDDU (0-234) H 10/23/20 18:23 Heparin Anti-Xa Level 0.73 U.I./ml (0.3-0.7) H 11/03/20 21:14 ABG pH 7.344 (7.320-7.450) 11/04/20 07:57 POC ABG pCO2 40.8 mmHg (32.0-48.0) 11/04/20 07:57 POC ABG pO2 132.7 mmHg (83-108) H 11/04/20 07:57 POC ABG HCO3 21.7 11/04/20 07:57 ABG O2 Saturation 98.4 (0-100) 11/04/20 07:57 POC ABG Base Excess -3.7 11/04/20 07:57 ABG Hemoglobin 11.5 (12.0-17.5) L 11/04/20 07:57 ABG Oxyhemoglobin 97.9 (94-98) 11/04/20 07:57 ABG Methemoglobin 0.3 (0.0-1.5) 11/04/20 07:57 ABG Sodium 130.6 mmol/L (136.0-145.0) L 11/04/20 07:57 ABG Potassium 5.3 mmol/L (3.40-4.50) H 11/04/20 07:57 ABG Chloride 107.0 mmol/L (98-107) 11/04/20 07:57 ABG Glucose 145 mg/dL (65-95) H 11/04/20 07:57 Carboxyhemoglobin 0.2 (0.5-1.5) L 11/04/20 07:57 FiO2 % 30.0 11/04/20 07:57 Sodium 133 mmol/L (137-145) L 11/04/20 04:00 Potassium 5.7 mmol/L (3.6-5.0) H 11/04/20 04:00 Chloride 103.6 mmol/L (98-107) 11/04/20 04:00 Carbon Dioxide 20 mmol/L (22-30) L 11/04/20 04:00 Anion Gap 15 mmol/L 11/04/20 04:00 BUN 57 mg/dL (9-20) H 11/04/20 04:00 Creatinine 2.3 mg/dL (0.8-1.3) H 11/04/20 04:00 Estimated GFR 34 ml/min 11/04/20 04:00 BUN/Creatinine Ratio 25 % 11/04/20 04:00 Glucose 129 mg/dL (75-100) H 11/04/20 04:00 POC Glucose 85 mg/dL (70-105) 10/23/20 17:00 Lactic Acid 7.40 mmol/L (0.7-2.0) H* 11/03/20 13:20 Calcium 7.2 mg/dL (8.4-10.2) L 11/04/20 04:00 Magnesium 2.20 mg/dL (1.7-2.3) 10/23/20 20:33 Ferritin 238.5 ng/mL (30.0-300.0) 10/23/20 18:23 Total Bilirubin 0.80 mg/dL (0.1-1.2) 10/23/20 13:32 AST 13 units/L (5-40) 10/23/20 13:32 ALT 13 units/L (7-56) 10/23/20 13:32 Alkaline Phosphatase 67 units/L (35-129) 10/23/20 13:32 Lactate Dehydrogenase 334 units/L (91-180) H 10/23/20 18:23 Troponin T 0.026 ng/mL (0.00-0.029) 10/23/20 16:39 C-Reactive Protein 2.50 mg/dL (0.00-1.30) H 10/23/20 18:23 NT-Pro-B Natriuret Pep 5806 pg/mL (0-900) H 10/23/20 13:32 Total Protein 7.3 g/dL (6.3-8.2) 10/23/20 13:32 Albumin 4.1 g/dL (3.9-5) 10/23/20 13:32 Albumin/Globulin Ratio 1.3 % 10/23/20 13:32 Triglycerides 60 mg/dL (2-149) 10/24/20 09:29 Cholesterol 139 mg/dL (50-199) 10/24/20 09:29 LDL Cholesterol Direct 87 mg/dL (50-130) 10/24/20 09:29 HDL Cholesterol 46 mg/dL (40-59) 10/24/20 09:29 Cholesterol/HDL Ratio 3.02 % 10/24/20 09:29 Procalcitonin < 0.05 ng/mL (<0.15) 10/23/20 18:23 TSH 6.540 mlU/mL (0.270-4.200) H 10/23/20 18:23 TSH 7.100 mlU/mL (0.270-4.200) H 10/23/20 18:23 Free T4 1.33 ng/dL (0.76-1.46) 10/23/20 18:23 Arterial Blood Glucose 145 mg/dL (65-95) H 11/04/20 07:57 Arterial Blood Ionized Calcium 4.4 mg/dL (4.6-5.3) L 11/04/20 07:57 Coronavirus (PCR) Negative (Negative) 10/24/20 09:57 Blood Type O POSITIVE 11/02/20 15:00 Antibody Screen Negative 11/02/20 15:00 Crossmatch See Detail 11/02/20 15:00 Winkler/IV: Voiding Method Indwelling Catheter Active Medications - Current Medications Current Medications: Generic Name Dose Route Start Last Admin Trade Name Freq PRN Reason Stop Dose Admin Acetaminophen 650 mg 10/23/20 20:00 Acetaminophen 325 Mg Tab PO Q4H PRN Pain, Mild (1-3) Ascorbic Acid 500 mg 10/23/20 22:00 11/03/20 21:34 Ascorbic Acid 500 Mg Tab PO 500 mg BID ALEX Administration Aspirin 325 mg 10/24/20 10:00 11/03/20 09:46 Aspirin 325 Mg Tab PO 325 mg QDAY ALEX Administration Atorvastatin Calcium 40 mg 10/23/20 22:00 11/03/20 21:34 Atorvastatin 40 Mg Tab PO 40 mg QHS ALEX Administration Bisacodyl 10 mg 10/23/20 20:00 Bisacodyl 10 Mg Rect Supp MI QDAY PRN Constipation Cholecalciferol 1,000 unit 10/24/20 10:00 11/03/20 09:46 Cholecalciferol (Vit D3) 1000 Unit (25 Mcg) Tab PO 1,000 unit QDAY ALEX Administration Docusate Sodium 100 mg 11/02/20 12:00 11/03/20 21:34 Docusate Sodium 100 Mg Cap PO 100 mg BID ALEX Administration Famotidine 20 mg 11/04/20 10:00 Famotidine 20 Mg/2 Ml Inj IV DAILY ALEX Fentanyl 50 mcg 11/03/20 16:46 Fentanyl 100 Mcg/2 Ml Inj IV Q10MIN PRN ANALGESIA Heparin Sodium (Porcine) 3,900 unit 11/02/20 13:30 Heparin 10,000 Units/10 Ml Vial 40 unit/kg (3900 unit) IV Q6H PRN Anti-Xa Assay < 0.1 units/ml Hydrophilic Ointment 1 applic 11/03/20 16:46 Lip Therapy Vaseline TP Q2HR PRN Dry Lips Heparin Sodium/Sodium Chloride 25,000 unit in 500 mls @ 29 mls/hr 11/02/20 13 :00 11/03/20 19:00 Heparin/ 0.45% Nacl-25,000 Unit/500 Ml IV Infused TITR ALEX Titration Protocol 1,450 UNITS/HR Sodium Chloride 500 mls @ 125 mls/hr 11/03/20 16:00 11/04/20 05:06 Nacl 0.9% 500 Ml IV 125 mls/hr DIRECT ALEX Administration Fentanyl Citrate 2,000 mcg in 100 mls @ 4.86 mls/hr 11/03/20 17:24 11/04/20 06:24 Fentanyl Drip Premix IV 1 mcg/kg/hr TITR ALEX 4.86 mls/hr Administration Protocol 1 MCG/KG/HR NORepinephrine/NS 8 MG-250 ML 8 mg in 250 mls @ 3.75 mls/hr 11/03/20 18:00 11/04/20 07:15 Norepinephrine/Ns 8 Mg-250 Ml (Double Conc) IV 12 mcg/min TITRATE ALEX 22.5 mls/hr Administration Protocol 2 MCG/MIN Dobutamine HCl/Dextrose 500 mg in 250 mls @ 14.58 mls/hr 11/03/20 18:00 04:14 Dobutrex Drip 500mg/D5w 250ml IV 5 mcg/kg/min DIRECT ALEX 14.58 mls/hr Administration Protocol 5 MCG/KG/MIN Sodium Chloride 500 mls @ 0 mls/hr 11/03/20 19:59 11/03/20 23:42 Nacl 0.9% 500 Ml IV 11/04/20 19:58 50 mls/hr ONCE ALEX Administration As Directed Lisinopril 5 mg 10/27/20 08:27 11/03/20 09:46 Lisinopril 5 Mg Tab PO Not Given QDAY ALEX Magnesium Hydroxide 30 ml 10/23/20 20:00 10/29/20 15:01 Magnesium Hydroxide (Mom) Oral Liqd Udc PO 30 ml Q4H PRN Administration Constipation Metoclopramide HCl 10 mg 10/23/20 20:00 Metoclopramide 10 Mg Tab PO Q6H PRN Nausea And Vomiting Metoprolol Tartrate 6.25 mg 10/27/20 10:00 11/03/20 23:40 Metoprolol Tartrate 25 Mg Tab PO Not Given BID ALEX Multi-Ingred Cream/Lotion/Oil/Oint 1 applic 11/03/20 16:46 Mineral Oil/Petrolatum, White Ophth Oint 3.5 Gm OU Q4HR PRN Dry Eye(s) Ondansetron HCl 4 mg 10/23/20 20:00 Ondansetron 4 Mg/2 Ml Inj IV Q8H PRN Nausea And Vomiting Oxycodone/Acetaminophen 1 tab 11/03/20 09:27 Oxycodone /Acetaminophen 5-325mg Tab PO Q6H PRN Pain, Moderate (4-6) Promethazine HCl 25 mg 10/23/20 20:00 Promethazine 25 Mg Rect Supp MI Q6H PRN Nausea And Vomiting Sodium Chloride 10 ml 10/23/20 20:00 10/28/20 22:36 Sodium Chloride 0.9% 10 Ml Flush Syringe IV 10 ml PRN PRN Administration LINE FLUSH Zinc Sulfate 220 mg 10/23/20 22:00 11/03/20 21:34 Zinc Sulfate 220 Mg Cap PO 220 mg BID ALEX Administration Nutrition/Malnutrition Assess - Dietary Evaluation Nutrition/Malnutrition Findings: Nutrition Notes Start: 10/24/20 11:33 Freq: Status: Active Protocol: Document 10/26/20 11:12 AL (Rec: 10/26/20 11:26 AL [id number]) Co-Sign 10/26/20 11:12 MK Nutrition Notes Initial or Follow up Reassessment Current Diagnosis Hypertension,Heart Failure, Respiratory Failure Other Pertinent Diagnosis suspected CVA, pneu Current Diet Regular Diet with thin liquids Labs/Tests BUN 30 BG 120 Pertinent Medications Solumedrol Height 5 ft 11 in Weight 89.5 kg [place] Body Weight (kg) 78.18 BMI 27.5 Intake Prior to Admission Poor Weight Status Overweight Subjective/Other Information F/U fo diet advancement. Pt. now on Regular diet with thin liquids. Pt states drinking Ensure Enlive BID. Diet and ONS well-tolerated. Breakfast this morning was tolerated at 90% Percent of energy/protein needs met: 138%/132% Burn Absent Trauma Absent Current % PO Good (75-100%) Minimum of two criteria No physical signs of malnutrition #1 Nutrition Diagnosis Predicted suboptimal energy intake As Evidenced by Signs and Symptoms Pt ate 90% of breakfast and tolerates Ensure Enlive BID. Diagnosis Progress(for reassessment Resolved documentation) Is patient on ventilator? No Is Patient Ambulatory and/or Out of Bed No REE-([facility]-confined to bed) 2018.196 Additional Notes Protein needs: 89 - 107g (1 - 1.2g/kgBW) fluid needs: 1 ml/kcal Nutrition Intervention Change Diet Order: Curent diet as ordered Add Supplement/Snack (indicate name/kcal d/c Ensure Enlive /protein ) Goal #1 Meet at least 75% of estimated energy and protein needs via PO Anticipated Discharge Needs: Cardiac Diet Revisit per MD consult or patient Sign Off request:
[2020-11-04] MEDS: DOCUSATE SODIUM 100 MG CAP PO SCH ×2 (10:11→21:24)
[2020-11-04] MEDS: ASPIRIN 325 MG TAB PO SCH (10:11)
[2020-11-04] MEDS: ASCORBIC ACID 500 MG TAB PO SCH ×2 (10:11→21:24)
[2020-11-04] MEDS: CHOLECALCIFEROL (VIT D3) 1000 UNIT (25 mcg) TAB PO SCH (10:11)
[2020-11-04] MEDS: FAMOTIDINE 20 MG/2 ML INJ IV SCH (10:11)
[2020-11-04] MEDS: ZINC SULFATE 220 MG CAP PO SCH ×2 (10:11→21:24)
[2020-11-04] MEDS: METOPROLOL TARTRATE 25 MG TAB PO SCH ×2 (10:11→21:24)
[2020-11-04] MEDS: LISINOPRIL 5 MG TAB PO SCH (10:13)
--- NOTE | 2020-11-04 10:13 | Progress Note ---
Assessment and Plan Assessment and Plan 70 yo male with HTN, hypothyroidism who presents with 2 days of confusion, weakness and noted with an acute partial L MCA territory ischemic stroke with noted expressive aphasia, dysarthria, right hemiparesis, with possible right homonymous hemianopsia. 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 will need AC If no systemic contraindication exist , can start on IV heparine -ASA 81 mg - BP Goal <150/80 - he is currently hypotensive --off Dobutamin . - Statin therapy for a goal LDL of 70, #LDL#87 -- mainatin Lipitor at 40 mg - # Hypertension - goal 150/80-- now is hypotensive # Hypothyroidism - management per primary team. # Unsteady Gait - pt/ot evaluation/monitoring. 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 PLAN 1- maintain medications 2- MRI brain is remarkable for a new CVA 3- Treat underlying infection 4- NPO / Intubated 5- PT/ST evaluate 6- OFF IV heparine due to leg site bleeding -- vascualr surgery to see findings is D/W son will follow Subjective Date of service: 11/04/20 Principal diagnosis: Cp and right side weakness with confusion Interval history: 70 yo male with htn, hypothyroidism who presents with 2 days of confusion, weakness and noted with an acute partial L MCA territory ischemic infarction, in the setting of an Echo that reveals an EF of 30 to 35%, bilateral pneumonia, and possible CHF exacerbation. Currently, the patient feels slightly better. He was initially noted with a NIHSS of 16 in the ED but presented outside the tPA window and no LVO was noted on CTAs. 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 had right lower Ext. thrombus underwent thrombectomy he is in ICU today he seems to be more out of it with worseing of aphasia and right side weakness not follow command Past History Past Medical History: hypertension, hypothyroidism, other (See HPI) Past Surgical History: thyroidectomy Social history: single. denies: smoking, alcohol abuse Family history: hypertension Objective - Vital Sign Vital Signs - 12hr 11/03/20 11/03/20 11/03/20 22:26 22:30 22:36 Temperature Pulse Rate 106 H 108 H 112 H Pulse Rate [ From Monitor] Respiratory 12 15 13 Rate Blood Pressure 102/54 94/64 94/64 O2 Sat by Pulse 100 100 100 Oximetry 11/03/20 11/03/20 11/03/20 22:40 22:45 22:50 Temperature Pulse Rate 115 H 113 H 110 H Pulse Rate [ From Monitor] Respiratory 13 16 11 L Rate Blood Pressure 94/64 92/63 92/63 O2 Sat by Pulse 100 100 100 Oximetry 11/03/20 11/03/20 11/03/20 22:56 23:00 23:06 Temperature Pulse Rate 113 H 112 H 112 H Pulse Rate [ From Monitor] Respiratory 7 L 16 15 Rate Blood Pressure 92/63 96/60 96/60 O2 Sat by Pulse 100 100 100 Oximetry 11/03/20 11/03/20 11/03/20 23:10 23:15 23:20 Temperature Pulse Rate 112 H 110 H 111 H Pulse Rate [ From Monitor] Respiratory 15 16 15 Rate Blood Pressure 96/60 97/57 97/57 O2 Sat by Pulse 99 100 99 Oximetry 11/03/20 11/03/20 11/03/20 23:26 23:27 23:30 Temperature 97 F L Pulse Rate 111 H 119 H Pulse Rate [ From Monitor] Respiratory 16 16 Rate Blood Pressure 96/60 88/61 O2 Sat by Pulse 99 100 Oximetry 11/03/20 11/04/20 11/04/20 23:40 00:00 00:02 Temperature 98.5 F Pulse Rate 114 H 111 H 112 H Pulse Rate [ 105 H From Monitor] Respiratory 16 16 16 Rate Blood Pressure 88/61 98/58 98/58 O2 Sat by Pulse 100 99 99 Oximetry 11/04/20 11/04/20 11/04/20 00:07 00:10 00:20 Temperature Pulse Rate 108 H 109 H 107 H Pulse Rate [ From Monitor] Respiratory 16 16 Rate Blood Pressure 98/58 98/58 94/57 O2 Sat by Pulse 99 99 Oximetry 11/04/20 11/04/20 11/04/20 00:30 00:40 00:50 Temperature Pulse Rate 107 H 109 H 111 H Pulse Rate [ From Monitor] Respiratory 17 15 11 L Rate Blood Pressure 100/56 100/56 97/56 O2 Sat by Pulse 100 99 Oximetry 11/04/20 11/04/20 11/04/20 01:00 01:30 02:00 Temperature Pulse Rate 113 H 112 H 124 H Pulse Rate [ From Monitor] Respiratory 17 16 12 Rate Blood Pressure 112/55 112/67 111/65 O2 Sat by Pulse 99 97 Oximetry 11/04/20 11/04/20 11/04/20 02:30 03:00 03:30 Temperature Pulse Rate 108 H 102 H 105 H Pulse Rate [ From Monitor] Respiratory 14 15 16 Rate Blood Pressure 73/36 137/72 134/81 O2 Sat by Pulse 99 99 Oximetry 11/04/20 11/04/20 11/04/20 04:00 04:21 04:30 Temperature 97.9 F Pulse Rate 103 H 109 H 126 H Pulse Rate [ 105 H From Monitor] Respiratory 16 16 Rate Blood Pressure 131/75 122/72 O2 Sat by Pulse 100 Oximetry 11/04/20 11/04/20 11/04/20 05:00 05:30 06:00 Temperature Pulse Rate 112 H 119 H 126 H Pulse Rate [ From Monitor] Respiratory 16 16 16 Rate Blood Pressure 71/44 88/57 92/57 O2 Sat by Pulse 99 99 Oximetry 11/04/20 11/04/20 11/04/20 06:30 07:00 07:30 Temperature Pulse Rate 113 H 112 H 134 H Pulse Rate [ From Monitor] Respiratory 15 17 18 Rate Blood Pressure 92/68 114/75 109/82 O2 Sat by Pulse 100 98 Oximetry 11/04/20 11/04/20 11/04/20 07:33 08:00 08:05 Temperature 98.1 F Pulse Rate 114 H 117 H Pulse Rate [ From Monitor] Respiratory 13 Rate Blood Pressure 105/67 105/67 O2 Sat by Pulse 98 100 Oximetry - EENT EENT: PERRL, mucous membranes moist - Respiratory Respiratory: chest non-tender, lungs clear, rhonchi - Cardiovascular Cardiovascular: regular rate Extremities: no peripheral edema bilat - Gastrointestinal Gastrointestinal: normoactive bowel sounds - Integumentary Integumentary: normal - Neurologic Cranial nerve examination: PERRL, EOMI, intact Speech examination: other (intubated ) Detailed motor examination: other - Laboratory Findings CBC and BMP: 11/04/20 04:00 11/04/20 04:00 Abnormal Lab Findings: Abnormal Labs 10/23/20 10/23/20 10/23/20 13:32 18:23 18:23 WBC Hgb Hct Seg Neuts % (Manual) Lymphocytes % (Manual) Seg Neutrophils # Man Monocytes # (Manual) D-Dimer 4139.61 H Heparin Anti-Xa Level ABG pH POC ABG pCO2 POC ABG pO2 ABG Hemoglobin ABG Oxyhemoglobin ABG Sodium ABG Potassium ABG Glucose Carboxyhemoglobin Sodium Potassium Chloride 109.1 H Carbon Dioxide BUN Creatinine Glucose Lactic Acid Calcium Lactate Dehydrogenase 334 H C-Reactive Protein 2.50 H NT-Pro-B Natriuret Pep 5806 H TSH Arterial Blood Glucose Arterial Blood Ionized Calcium Crossmatch 10/23/20 10/23/20 10/26/20 18:23 18:23 05:34 WBC Hgb Hct Seg Neuts % (Manual) Lymphocytes % (Manual) Seg Neutrophils # Man Monocytes # (Manual) D-Dimer Heparin Anti-Xa Level ABG pH POC ABG pCO2 POC ABG pO2 ABG Hemoglobin ABG Oxyhemoglobin ABG Sodium ABG Potassium ABG Glucose Carboxyhemoglobin Sodium Potassium Chloride Carbon Dioxide BUN 30 H Creatinine Glucose 120 H Lactic Acid Calcium Lactate Dehydrogenase C-Reactive Protein NT-Pro-B Natriuret Pep TSH 7.100 H 6.540 H Arterial Blood Glucose Arterial Blood Ionized Calcium Crossmatch 10/27/20 10/28/20 11/02/20 08:55 05:25 07:17 WBC 15.8 H Hgb Hct Seg Neuts % (Manual) Lymphocytes % (Manual) Seg Neutrophils # Man Monocytes # (Manual) D-Dimer Heparin Anti-Xa Level ABG pH POC ABG pCO2 POC ABG pO2 ABG Hemoglobin ABG Oxyhemoglobin ABG Sodium ABG Potassium ABG Glucose Carboxyhemoglobin Sodium Potassium Chloride Carbon Dioxide BUN 28 H 28 H Creatinine Glucose 124 H 110 H Lactic Acid Calcium 8.2 L Lactate Dehydrogenase C-Reactive Protein NT-Pro-B Natriuret Pep TSH Arterial Blood Glucose Arterial Blood Ionized Calcium Crossmatch 11/02/20 11/02/20 11/02/20 07:17 15:00 15:06 WBC Hgb 15.7 H Hct 47.5 H D Seg Neuts % (Manual) Lymphocytes % (Manual) Seg Neutrophils # Man Monocytes # (Manual) D-Dimer Heparin Anti-Xa Level ABG pH POC ABG pCO2 POC ABG pO2 ABG Hemoglobin ABG Oxyhemoglobin ABG Sodium ABG Potassium ABG Glucose Carboxyhemoglobin Sodium 136 L Potassium Chloride Carbon Dioxide BUN 33 H Creatinine Glucose 107 H Lactic Acid Calcium 7.9 L Lactate Dehydrogenase C-Reactive Protein NT-Pro-B Natriuret Pep TSH Arterial Blood Glucose Arterial Blood Ionized Calcium Crossmatch See Detail 11/02/20 11/02/20 11/03/20 21:25 22:28 05:47 WBC 21.8 H Hgb Hct Seg Neuts % (Manual) Lymphocytes % (Manual) Seg Neutrophils # Man Monocytes # (Manual) D-Dimer Heparin Anti-Xa Level 1.63 H < 0.10 L ABG pH POC ABG pCO2 POC ABG pO2 ABG Hemoglobin ABG Oxyhemoglobin ABG Sodium ABG Potassium ABG Glucose Carboxyhemoglobin Sodium Potassium Chloride Carbon Dioxide BUN Creatinine Glucose Lactic Acid Calcium Lactate Dehydrogenase C-Reactive Protein NT-Pro-B Natriuret Pep TSH Arterial Blood Glucose Arterial Blood Ionized Calcium Crossmatch 11/03/20 11/03/20 11/03/20 13:20 13:20 13:20 WBC 29.0 H Hgb 10.4 L Hct 31.2 L D Seg Neuts % (Manual) Lymphocytes % (Manual) Seg Neutrophils # Man Monocytes # (Manual) D-Dimer Heparin Anti-Xa Level ABG pH POC ABG pCO2 POC ABG pO2 ABG Hemoglobin ABG Oxyhemoglobin ABG Sodium ABG Potassium ABG Glucose Carboxyhemoglobin Sodium 134 L Potassium 5.9 H D Chloride Carbon Dioxide 17 L D BUN 47 H Creatinine 2.2 H D Glucose 188 H Lactic Acid 7.40 H* Calcium 7.6 L Lactate Dehydrogenase C-Reactive Protein NT-Pro-B Natriuret Pep TSH Arterial Blood Glucose Arterial Blood Ionized Calcium Crossmatch 11/03/20 11/03/20 11/03/20 16:11 20:01 21:14 WBC Hgb Hct Seg Neuts % (Manual) Lymphocytes % (Manual) Seg Neutrophils # Man Monocytes # (Manual) D-Dimer Heparin Anti-Xa Level 0.73 H ABG pH 7.289 L POC ABG pCO2 31.8 L POC ABG pO2 156.7 H 119.6 H ABG Hemoglobin 10.7 L 9.7 L ABG Oxyhemoglobin 98.2 H ABG Sodium 127.7 L 129.5 L ABG Potassium 5.8 H 5.9 H ABG Glucose 190 H 174 H Carboxyhemoglobin 0.3 L 0.1 L Sodium Potassium Chloride Carbon Dioxide BUN Creatinine Glucose Lactic Acid Calcium Lactate Dehydrogenase C-Reactive Protein NT-Pro-B Natriuret Pep TSH Arterial Blood Glucose 190 H 174 H Arterial Blood Ionized Calcium 4.3 L 4.3 L Crossmatch 11/04/20 11/04/20 11/04/20 04:00 04:00 07:57 WBC 32.8 H Hgb 11.7 L Hct 35.0 L Seg Neuts % (Manual) 82.0 H Lymphocytes % (Manual) 10.0 L Seg Neutrophils # Man 26.9 H Monocytes # (Manual) 2.3 H D-Dimer Heparin Anti-Xa Level ABG pH POC ABG pCO2 POC ABG pO2 132.7 H ABG Hemoglobin 11.5 L ABG Oxyhemoglobin ABG Sodium 130.6 L ABG Potassium 5.3 H ABG Glucose 145 H Carboxyhemoglobin 0.2 L Sodium 133 L Potassium 5.7 H Chloride Carbon Dioxide 20 L BUN 57 H Creatinine 2.3 H Glucose 129 H Lactic Acid Calcium 7.2 L Lactate Dehydrogenase C-Reactive Protein NT-Pro-B Natriuret Pep TSH Arterial Blood Glucose 145 H Arterial Blood Ionized Calcium 4.4 L Crossmatch
[2020-11-04] MEDS ORDERED: VANCOMYCIN 1,500 MG in SODIUM CHLORIDE 0.9% 500 ML 500 ML IV ONE (11:00)
[2020-11-04] MEDS ORDERED: VANCOMYCIN PHARMACY TO DOSE IV SCH (11:00)
[2020-11-04] MEDS: CEFEPIME/NS 2 GM/100 ML 2 GM/100 ML BAG IV SCH ×2 (11:04→22:26)
[2020-11-04 11:12] LABS: Bilirubin,Urine NEG (Negative); Blood,Urine NEG (Negative); Color,Urine Yellow (Yellow); Mucus,Urine FEW /HPF; Urobilinogen,Urine < 2.0 mg/dL (<2.0)
--- NOTE | 2020-11-04 11:19 | Progress Note ---
Assessment and Plan We will continue to monitor patient. When dressing was changed, a minimal amount of hematoma was present. No further interventions planned at this point. Subjective Date of service: 11/04/20 Principal diagnosis: Cp and right side weakness with confusion Interval history: Patient with a history of cardiac thrombus, left hemispheric stroke with worsening symptoms, right leg arterial thrombus status post revascularization with fasciotomies. The patient can squeeze his left hand and tracks with his gaze. Dressing was changed which demonstrates old blood. Objective - Constitutional Vitals: Vital Signs - 12hr 11/03/20 11/03/20 11/03/20 23:20 23:26 23:27 Temperature 97 F L Pulse Rate 111 H 111 H Pulse Rate [ From Monitor] Respiratory 15 16 Rate Blood Pressure 97/57 96/60 O2 Sat by Pulse 99 99 Oximetry 11/03/20 11/03/20 11/04/20 23:30 23:40 00:00 Temperature 98.5 F Pulse Rate 119 H 114 H 111 H Pulse Rate [ 105 H From Monitor] Respiratory 16 16 16 Rate Blood Pressure 88/61 88/61 98/58 O2 Sat by Pulse 100 100 99 Oximetry 11/04/20 11/04/20 11/04/20 00:02 00:07 00:10 Temperature Pulse Rate 112 H 108 H 109 H Pulse Rate [ From Monitor] Respiratory 16 16 Rate Blood Pressure 98/58 98/58 98/58 O2 Sat by Pulse 99 99 Oximetry 11/04/20 11/04/20 11/04/20 00:20 00:30 00:40 Temperature Pulse Rate 107 H 107 H 109 H Pulse Rate [ From Monitor] Respiratory 16 17 15 Rate Blood Pressure 94/57 100/56 100/56 O2 Sat by Pulse 99 100 Oximetry 11/04/20 11/04/20 11/04/20 00:50 01:00 01:30 Temperature Pulse Rate 111 H 113 H 112 H Pulse Rate [ From Monitor] Respiratory 11 L 17 16 Rate Blood Pressure 97/56 112/55 112/67 O2 Sat by Pulse 99 99 97 Oximetry 11/04/20 11/04/20 11/04/20 02:00 02:30 03:00 Temperature Pulse Rate 124 H 108 H 102 H Pulse Rate [ From Monitor] Respiratory 12 14 15 Rate Blood Pressure 111/65 73/36 137/72 O2 Sat by Pulse 99 Oximetry 05/11/04/20 11/04/20 03:30 04:00 04:21 Temperature 97.9 F Pulse Rate 105 H 103 H 109 H Pulse Rate [ 105 H From Monitor] Respiratory 16 16 Rate Blood Pressure 134/81 131/75 O2 Sat by Pulse 99 100 Oximetry 11/04/20 11/04/20 11/04/20 04:30 05:00 05:30 Temperature Pulse Rate 126 H 112 H 119 H Pulse Rate [ From Monitor] Respiratory 16 16 16 Rate Blood Pressure 122/72 71/44 88/57 O2 Sat by Pulse 99 99 Oximetry 11/04/20 11/04/20 11/04/20 06:00 06:30 07:00 Temperature Pulse Rate 126 H 113 H 112 H Pulse Rate [ From Monitor] Respiratory 16 15 17 Rate Blood Pressure 92/57 92/68 114/75 O2 Sat by Pulse 100 98 Oximetry 11/04/20 11/04/20 11/04/20 07:30 07:33 08:00 Temperature 98.1 F Pulse Rate 134 H 114 H Pulse Rate [ From Monitor] Respiratory 18 13 Rate Blood Pressure 109/82 105/67 O2 Sat by Pulse 98 Oximetry 11/04/20 11/04/20 11/04/20 08:05 08:30 09:00 Temperature Pulse Rate 117 H 110 H 109 H Pulse Rate [ From Monitor] Respiratory 17 17 Rate Blood Pressure 105/67 112/73 116/78 O2 Sat by Pulse 100 Oximetry 11/04/20 11/04/20 11/04/20 09:30 10:00 10:11 Temperature Pulse Rate 106 H 109 H 102 H Pulse Rate [ From Monitor] Respiratory 17 16 Rate Blood Pressure 111/75 122/74 122/74 O2 Sat by Pulse Oximetry 11/04/20 11/04/20 11/04/20 10:13 10:30 11:00 Temperature Pulse Rate 102 H 106 H 109 H Pulse Rate [ From Monitor] Respiratory 18 17 Rate Blood Pressure 122/74 137/84 124/88 O2 Sat by Pulse 100 100 Oximetry General appearance: Present: other (Intubated) - Neck Neck: supple - Respiratory Respiratory effort: other (Intubated) Extremities: abnormal (Right leg revascularization procedure with edema and fasciotomies.) - Gastrointestinal General gastrointestinal: Present: deferred - Genitourinary Male genitourinary: deferred - Labs CBC & Chem 7: 11/04/20 04:00 11/04/20 04:00 Labs: Abnormal lab results 11/02/20 11/03/20 11/03/20 Range/Units 15:00 13:20 13:20 WBC 29.0 H (4.5-11.0) K/mm3 Hgb 10.4 L (11.8-15.2) gm/dl Hct 31.2 L D (35.5-45.6) % Seg Neuts % (Manual) (40.0-70.0) % Lymphocytes % (Manual) (13.4-35.0) % Seg Neutrophils # Man (1.8-7.7) K/mm3 Monocytes # (Manual) (0.0-0.8) K/mm3 Heparin Anti-Xa Level (0.3-0.7) U.I./ml ABG pH (7.320-7.450) POC ABG pCO2 (32.0-48.0) mmHg POC ABG pO2 (83-108) mmHg ABG Hemoglobin (12.0-17.5) ABG Oxyhemoglobin (94-98) ABG Sodium (136.0-145.0) mmol/L ABG Potassium (3.40-4.50) mmol/L ABG Glucose (65-95) mg/dL Carboxyhemoglobin (0.5-1.5) Sodium 134 L (137-145) mmol/L Potassium 5.9 H D (3.6-5.0) mmol/L Carbon Dioxide 17 L D (22-30) mmol/L BUN 47 H (9-20) mg/dL Creatinine 2.2 H D (0.8-1.3) mg/dL Glucose 188 H (75-100) mg/dL Lactic Acid (0.7-2.0) mmol/L Calcium 7.6 L (8.4-10.2) mg/dL Arterial Blood Glucose (65-95) mg/dL Arterial Blood Ionized Calcium (4.6-5.3) mg/dL Urine WBC (Auto) (0.0-6.0) /HPF Crossmatch See Detail 11/03/20 11/03/20 11/03/20 Range/Units 13:20 16:11 20:01 WBC (4.5-11.0) K/mm3 Hgb (11.8-15.2) gm/dl Hct (35.5-45.6) % Seg Neuts % (Manual) (40.0-70.0) % Lymphocytes % (Manual) (13.4-35.0) % Seg Neutrophils # Man (1.8-7.7) K/mm3 Monocytes # (Manual) (0.0-0.8) K/mm3 Heparin Anti-Xa Level (0.3-0.7) U.I./ml ABG pH 7.289 L (7.320-7.450) POC ABG pCO2 31.8 L (32.0-48.0) mmHg POC ABG pO2 156.7 H 119.6 H (83-108) mmHg ABG Hemoglobin 10.7 L 9.7 L (12.0-17.5) ABG Oxyhemoglobin 98.2 H (94-98) ABG Sodium 127.7 L 129.5 L (136.0-145.0) mmol/L ABG Potassium 5.8 H 5.9 H (3.40-4.50) mmol/L ABG Glucose 190 H 174 H (65-95) mg/dL Carboxyhemoglobin 0.3 L 0.1 L (0.5-1.5) Sodium (137-145) mmol/L Potassium (3.6-5.0) mmol/L Carbon Dioxide (22-30) mmol/L BUN (9-20) mg/dL Creatinine (0.8-1.3) mg/dL Glucose (75-100) mg/dL Lactic Acid 7.40 H* (0.7-2.0) mmol/L Calcium (8.4-10.2) mg/dL Arterial Blood Glucose 190 H 174 H (65-95) mg/dL Arterial Blood Ionized Calcium 4.3 L 4.3 L (4.6-5.3) mg/dL Urine WBC (Auto) (0.0-6.0) /HPF Crossmatch 11/03/20 11/04/20 11/04/20 Range/Units 21:14 04:00 04:00 WBC 32.8 H (4.5-11.0) K/mm3 Hgb 11.7 L (11.8-15.2) gm/dl Hct 35.0 L (35.5-45.6) % Seg Neuts % (Manual) 82.0 H (40.0-70.0) % Lymphocytes % (Manual) 10.0 L (13.4-35.0) % Seg Neutrophils # Man 26.9 H (1.8-7.7) K/mm3 Monocytes # (Manual) 2.3 H (0.0-0.8) K/mm3 Heparin Anti-Xa Level 0.73 H (0.3-0.7) U.I./ml ABG pH (7.320-7.450) POC ABG pCO2 (32.0-48.0) mmHg POC ABG pO2 (83-108) mmHg ABG Hemoglobin (12.0-17.5) ABG Oxyhemoglobin (94-98) ABG Sodium (136.0-145.0) mmol/L ABG Potassium (3.40-4.50) mmol/L ABG Glucose (65-95) mg/dL Carboxyhemoglobin (0.5-1.5) Sodium 133 L (137-145) mmol/L Potassium 5.7 H (3.6-5.0) mmol/L Carbon Dioxide 20 L (22-30) mmol/L BUN 57 H (9-20) mg/dL Creatinine 2.3 H (0.8-1.3) mg/dL Glucose 129 H (75-100) mg/dL Lactic Acid (0.7-2.0) mmol/L Calcium 7.2 L (8.4-10.2) mg/dL Arterial Blood Glucose (65-95) mg/dL Arterial Blood Ionized Calcium (4.6-5.3) mg/dL Urine WBC (Auto) (0.0-6.0) /HPF Crossmatch 11/04/20 11/04/20 Range/Units 07:57 11:00 WBC (4.5-11.0) K/mm3 Hgb (11.8-15.2) gm/dl Hct (35.5-45.6) % Seg Neuts % (Manual) (40.0-70.0) % Lymphocytes % (Manual) (13.4-35.0) % Seg Neutrophils # Man (1.8-7.7) K/mm3 Monocytes # (Manual) (0.0-0.8) K/mm3 Heparin Anti-Xa Level (0.3-0.7) U.I./ml ABG pH (7.320-7.450) POC ABG pCO2 (32.0-48.0) mmHg POC ABG pO2 132.7 H (83-108) mmHg ABG Hemoglobin 11.5 L (12.0-17.5) ABG Oxyhemoglobin (94-98) ABG Sodium 130.6 L (136.0-145.0) mmol/L ABG Potassium 5.3 H (3.40-4.50) mmol/L ABG Glucose 145 H (65-95) mg/dL Carboxyhemoglobin 0.2 L (0.5-1.5) Sodium (137-145) mmol/L Potassium (3.6-5.0) mmol/L Carbon Dioxide (22-30) mmol/L BUN (9-20) mg/dL Creatinine (0.8-1.3) mg/dL Glucose (75-100) mg/dL Lactic Acid (0.7-2.0) mmol/L Calcium (8.4-10.2) mg/dL Arterial Blood Glucose 145 H (65-95) mg/dL Arterial Blood Ionized Calcium 4.4 L (4.6-5.3) mg/dL Urine WBC (Auto) 19.0 H (0.0-6.0) /HPF Crossmatch Medications & Allergies - Medications Allergies/Adverse Reactions: Allergies No Known Allergies Allergy (Unverified 10/23/20 12:44) Home Medications: Home Medications Medication Instructions Recorded Confirmed Last Taken Type Levothyroxine Sodium 150 mcg PO DAILY 10/31/20 10/31/20 Unknown History [Levothyroxine] carvediloL [Coreg] 6.25 mg PO BID 10/31/20 10/31/20 Unknown History lisinopriL [Lisinopril] 10 mg PO DAILY 10/31/20 10/31/20 Unknown History Active Medications: Generic Name Dose Route Start Last Admin Trade Name Freq PRN Reason Stop Dose Admin Acetaminophen 650 mg 10/23/20 20:00 Acetaminophen 325 Mg Tab PO Q4H PRN Pain, Mild (1-3) Ascorbic Acid 500 mg 10/23/20 22:00 11/04/20 10:11 Ascorbic Acid 500 Mg Tab PO 500 mg BID ALEX Administration Aspirin 325 mg 10/24/20 10:00 11/04/20 10:11 Aspirin 325 Mg Tab PO 325 mg QDAY ALEX Administration Atorvastatin Calcium 40 mg 10/23/20 22:00 11/03/20 21:34 Atorvastatin 40 Mg Tab PO 40 mg QHS ALEX Administration Bisacodyl 10 mg 10/23/20 20:00 Bisacodyl 10 Mg Rect Supp [place] QDAY PRN Constipation Cholecalciferol 1,000 unit 10/24/20 10:00 11/04/20 10:11 Cholecalciferol (Vit D3) 1000 Unit (25 Mcg) Tab PO 1,000 unit QDAY ALEX Administration Docusate Sodium 100 mg 11/02/20 12:00 11/04/20 10:11 Docusate Sodium 100 Mg Cap PO 100 mg BID ALEX Administration Famotidine 20 mg 11/04/20 10:00 11/04/20 10:11 Famotidine 20 Mg/2 Ml Inj IV 20 mg DAILY ALEX Administration Fentanyl 50 mcg 11/03/20 16:46 Fentanyl 100 Mcg/2 Ml Inj IV Q10MIN PRN ANALGESIA Heparin Sodium (Porcine) 3,900 unit 11/02/20 13:30 Heparin 10,000 Units/10 Ml Vial 40 unit/kg (3900 unit) IV Q6H PRN Anti-Xa Assay < 0.1 units/ml Hydrophilic Ointment 1 applic 11/03/20 16:46 Lip Therapy Vaseline TP Q2HR PRN Dry Lips Heparin Sodium/Sodium Chloride 25,000 unit in 500 mls @ 29 mls/hr 11/02/20 13:00 11/03/20 19:00 Heparin/ 0.45% Nacl-25,000 Unit/500 Ml IV Infused TITR ALEX Titration Protocol 1,450 UNITS/HR Sodium Chloride 500 mls @ 125 mls/hr 11/03/20 16:00 11/04/20 05:06 Nacl 0.9% 500 Ml IV 125 mls/hr DIRECT ALEX Administration Fentanyl Citrate 2,000 mcg in 100 mls @ 4.86 mls/hr 11/03/20 17:24 11/04/20 06:24 Fentanyl Drip Premix IV 1 mcg/kg/hr TITR ALEX 4.86 mls/hr Administration Protocol 1 MCG/KG/HR NORepinephrine/NS 8 MG-250 ML 8 mg in 250 mls @ 3.75 mls/hr 11/03/20 18:00 11/04/20 07:15 Norepinephrine/Ns 8 Mg-250 Ml (Double Conc) IV 12 mcg/min TITRATE ALEX 22.5 mls/hr Administration Protocol 2 MCG/MIN Dobutamine HCl/Dextrose 500 mg in 250 mls @ 14.58 mls/hr 11/03/20 18:00 11/04/20 04:14 Dobutrex Drip 500mg/D5w 250ml IV 5 mcg/kg/min DIRECT ALEX 14.58 mls/hr Administration Protocol 5 MCG/KG/MIN Sodium Chloride 500 mls @ 0 mls/hr 11/03/20 19:59 11/03/20 23:42 Nacl 0.9% 500 Ml IV 11/04/20 19:58 50 mls/hr ONCE ALEX Administration As Directed Cefepime HCl 2 gm in 100 mls @ 200 mls/hr 11/04/20 11:00 11/04/20 11:04 Cefepime/Ns 2 Gm/100 Ml IV 200 mls/hr Q12H ALEX Administration Protocol Vancomycin HCl 1,500 mg/ 530 mls @ 333.333 mls/hr 11/04/20 11:00 11/04/20 11:04 Sodium Chloride IV 11/04/20 12:35 333.333 mls/hr ONCE ONE Administration Lisinopril 5 mg 10/27/20 08:27 11/04/20 10:13 Lisinopril 5 Mg Tab PO Not Given QDAY ALEX Magnesium Hydroxide 30 ml 10/23/20 20:00 10/29/20 15:01 Magnesium Hydroxide (Mom) Oral Liqd Udc PO 30 ml Q4H PRN Administration Constipation Metoclopramide HCl 10 mg 10/23/20 20:00 Metoclopramide 10 Mg Tab PO Q6H PRN Nausea And Vomiting Metoprolol Tartrate 6.25 mg 10/27/20 10:00 11/04/20 10:11 Metoprolol Tartrate 25 Mg Tab PO Not Given BID ALEX Multi-Ingred Cream/Lotion/Oil/Oint 1 applic 11/03/20 16:46 Mineral Oil/Petrolatum, White Ophth Oint 3.5 Gm OU Q4HR PRN Dry Eye(s) Ondansetron HCl 4 mg 10/23/20 20:00 Ondansetron 4 Mg/2 Ml Inj IV Q8H PRN Nausea And Vomiting Oxycodone/Acetaminophen 1 tab 11/03/20 09:27 Oxycodone /Acetaminophen 5-325mg Tab PO Q6H PRN Pain, Moderate (4-6) Promethazine HCl 25 mg 10/23/20 20:00 Promethazine 25 Mg Rect Supp [place] Q6H PRN Nausea And Vomiting Sodium Chloride 10 ml 10/23/20 20:00 10/28/20 22:36 Sodium Chloride 0.9% 10 Ml Flush Syringe IV 10 ml PRN PRN Administration LINE FLUSH Zinc Sulfate 220 mg 10/23/20 22:00 11/04/20 10:11 Zinc Sulfate 220 Mg Cap PO 220 mg BID ALEX Administration HEART Score - HEART Score Troponin: Troponin T 0.026 ng/mL (0.00-0.029) 10/23/20 16:39
--- NOTE | 2020-11-04 11:21 | Consultation ---
History of Present Illness - Reason for Consult Consult date: 11/04/20 compartment syndrome, leukocytosis Requesting physician: BENNY GUERRIER - History of Present Illness 70-year-old male with history of hypertension, hypothyroidism, admitted on 10/23/2020 secondary to 2-day history of acute altered mental status with confusion and diminished cognition. Per family member, patient has been debilitated, complaining of dyspnea on exertion, bedbound recently. Noted to have right hemiparesis. In the ED, temperature 99.7, HR 82, RR 18, O2 sat 98, BP 154/96. Initial WBC 5.4. Hemoglobin 14.3. Platelets 237. Creatinine 1.2. BNP 5806. CRP 2.5. SARS-CoV-2 PCR negative. Chest x-ray with diffuse bilateral pulmonary opacities and mild pleural effusion right more than left. Brain MRI shows acute infarct of the left MCA. On admission patient was noted hypoxic and placed on supplemental oxygen. Patient was also noted to have a left atrial appendage thrombus on KELLY on 11/02/2020, EF 40 to 45%. By November 02, 2020 was noted to have increased leukocytosis to 21,000. Daily went up to 32,000. There was also noted right leg edema and coldness. Arterial ultrasound shows a right SFA and peroneal thrombus occlusion. Patient was taken to the operating room on 11/02/2020 underwent open thrombectomy of the right lower extremity and right leg compartment fasciotomy. Overnight patient decompensated became hypotensive, patient was placed on vasopressors and intubated. Review of Systems: Unable to obtain Past History Past Medical History: hypertension, hypothyroidism, other (See HPI) Past Surgical History: thyroidectomy Social history: single. denies: smoking, alcohol abuse Family history: hypertension Medications and Allergies Allergies Allergy/AdvReac Type Severity Reaction Status Date / Time No Known Allergies Allergy Unverified 10/23/20 12:44 Home Medications Medication Instructions Recorded Confirmed Last Taken Type Levothyroxine Sodium 150 mcg PO DAILY 10/31/20 10/31/20 Unknown History [Levothyroxine] carvediloL [Coreg] 6.25 mg PO BID 10/31/20 10/31/20 Unknown History lisinopriL [Lisinopril] 10 mg PO DAILY 10/31/20 10/31/20 Unknown History Active Meds: Active Medications Acetaminophen (Acetaminophen 325 Mg Tab) 650 mg PO Q4H PRN PRN Reason: Pain, Mild (1-3) Ascorbic Acid (Ascorbic Acid 500 Mg Tab) 500 mg PO BID [facility] Last Admin: 11/04/20 10:11 Dose: 500 mg Documented by: Aspirin (Aspirin 325 Mg Tab) 325 mg PO QDAY [facility] Last Admin: 11/04/20 10:11 Dose: 325 mg Documented by: Atorvastatin Calcium (Atorvastatin 40 Mg Tab) 40 mg PO QHS [facility] Last Admin: 11/03/20 21:34 Dose: 40 mg Documented by: Bisacodyl (Bisacodyl 10 Mg Rect Supp) 10 mg [place] QDAY PRN PRN Reason: Constipation Cholecalciferol (Cholecalciferol (Vit D3) 1000 Unit (25 Mcg) Tab) 1,000 unit PO QDAY [facility] Last Admin: 11/04/20 10:11 Dose: 1,000 unit Documented by: Docusate Sodium (Docusate Sodium 100 Mg Cap) 100 mg PO BID [facility] Last Admin: 11/04/20 10:11 Dose: 100 mg Documented by: Famotidine (Famotidine 20 Mg/2 Ml Inj) 20 mg IV DAILY [facility] Last Admin: 11/04/20 10:11 Dose: 20 mg Documented by: Fentanyl (Fentanyl 100 Mcg/2 Ml Inj) 50 mcg IV Q10MIN PRN PRN Reason: ANALGESIA Heparin Sodium (Porcine) (Heparin 10,000 Units/10 Ml Vial) 3,900 unit 40 unit/kg (3900 unit) IV Q6H PRN PRN Reason: Anti-Xa Assay < 0.1 units/ml Hydrophilic Ointment (Lip Therapy Vaseline) 1 applic TP Q2HR PRN PRN Reason: Dry Lips Heparin Sodium/Sodium Chloride (Heparin/ 0.45% Nacl-25,000 Unit/500 Ml) 25,000 unit in 500 mls @ 29 mls/hr IV TITR [facility]; Protocol Last Titration: 11/03/20 19:00 Dose: Infused Documented by: Sodium Chloride (Nacl 0.9% 500 Ml) 500 mls @ 125 mls/hr IV DIRECT [facility] Last Admin: 11/04/20 05:06 Dose: 125 mls/hr Documented by: Fentanyl Citrate (Fentanyl Drip Premix) 2,000 mcg in 100 mls @ 4.86 mls/hr IV TITR [facility]; Protocol Last Admin: 11/04/20 06:24 Dose: 1 mcg/kg/hr, 4.86 mls/hr Documented by: NORepinephrine/NS 8 MG-250 ML (Norepinephrine/Ns 8 Mg-250 Ml (Double Conc)) 8 mg in 250 mls @ 3.75 mls/hr IV TITRATE [facility]; Protocol Last Admin: 11/04/20 07:15 Dose: 12 mcg/min, 22.5 mls/hr Documented by: Dobutamine HCl/Dextrose (Dobutrex Drip 500mg/D5w 250ml) 500 mg in 250 mls @ 14.58 mls/hr IV DIRECT [facility]; Protocol Last Admin: 11/04/20 04:14 Dose: 5 mcg/kg/min, 14.58 mls/hr Documented by: Sodium Chloride (Nacl 0.9% 500 Ml) 500 mls @ 0 mls/hr IV ONCE [facility] Stop: 11/04/20 19:58 Last Admin: 11/03/20 23:42 Dose: 50 mls/hr Documented by: Cefepime HCl (Cefepime/Ns 2 Gm/100 Ml) 2 gm in 100 mls @ 200 mls/hr IV Q12H [facility]; Protocol Last Admin: 11/04/20 11:04 Dose: 200 mls/hr Documented by: Vancomycin HCl 1,500 mg/ (Sodium Chloride) 530 mls @ 333.333 mls/hr IV ONCE ONE Stop: 11/04/20 12:35 Last Admin: 11/04/20 11:04 Dose: 333.333 mls/hr Documented by: Lisinopril (Lisinopril 5 Mg Tab) 5 mg PO QDAY [facility] Last Admin: 11/04/20 10:13 Dose: Not Given Documented by: Magnesium Hydroxide (Magnesium Hydroxide (Mom) Oral Liqd Udc) 30 ml PO Q4H PRN PRN Reason: Constipation Last Admin: 10/29/20 15:01 Dose: 30 ml Documented by: Metoclopramide HCl (Metoclopramide 10 Mg Tab) 10 mg PO Q6H PRN PRN Reason: Nausea And Vomiting Metoprolol Tartrate (Metoprolol Tartrate 25 Mg Tab) 6.25 mg PO BID [facility] Last Admin: 11/04/20 10:11 Dose: Not Given Documented by: Multi-Ingred Cream/Lotion/Oil/Oint (Mineral Oil/Petrolatum, White Ophth Oint 3.5 Gm) 1 applic OU Q4HR PRN PRN Reason: Dry Eye(s) Ondansetron HCl (Ondansetron 4 Mg/2 Ml Inj) 4 mg IV Q8H PRN PRN Reason: Nausea And Vomiting Oxycodone/Acetaminophen (Oxycodone /Acetaminophen 5-325mg Tab) 1 tab PO Q6H PRN PRN Reason: Pain, Moderate (4-6) Promethazine HCl (Promethazine 25 Mg Rect Supp) 25 mg [place] Q6H PRN PRN Reason: Nausea And Vomiting Sodium Chloride (Sodium Chloride 0.9% 10 Ml Flush Syringe) 10 ml IV PRN PRN PRN Reason: LINE FLUSH Last Admin: 10/28/20 22:36 Dose: 10 ml Documented by: Zinc Sulfate (Zinc Sulfate 220 Mg Cap) 220 mg PO BID [facility] Last Admin: 11/04/20 10:11 Dose: 220 mg Documented by: Physical Examination - Physical Exam Narrative exam: General appearance: Sedated, intubated Eyes: anicteric sclerae, moist conjunctivae; no lid-lag; PERRLA HENT: Normocephalic, Atraumatic; normal external ears, nares open, oropharynx endotracheal tube in place Neck: supple, tracheal midline, no JVD Lungs: Clear to auscultation bilaterally CV: RRR no murmur Abdomen: Soft, nontender Extremities: Marked right leg edema with fasciotomy wounds bleeding Skin: Right groin surgical wound with clots Psych: Sedated Neuro: Sedated - Constitutional Vitals: Vital Signs Temp Pulse Resp BP Pulse Ox 98.1 F 109 H 17 124/88 100 11/04/20 07:33 11/04/20 11:00 11/04/20 11:00 11/04/20 11:00 11/04/20 11:00 Temperature -Last 24 Hours Temperature 98.1 F Temperature 97.9 F Temperature 98.5 F Temperature 97 F Temperature 96.8 F Temperature 97 F Temperature 97.6 F Temperature 97.5 F Results - Labs CBC & Chem 7: 11/04/20 04:00 11/04/20 04:00 Labs: Abnormal lab results 11/02/20 11/03/20 11/03/20 Range/Units 15:00 13:20 13:20 WBC 29.0 H (4.5-11.0) K/mm3 Hgb 10.4 L (11.8-15.2) gm/dl Hct 31.2 L D (35.5-45.6) % Seg Neuts % (Manual) (40.0-70.0) % Lymphocytes % (Manual) (13.4-35.0) % Seg Neutrophils # Man (1.8-7.7) K/mm3 Monocytes # (Manual) (0.0-0.8) K/mm3 Heparin Anti-Xa Level (0.3-0.7) U.I./ml ABG pH (7.320-7.450) POC ABG pCO2 (32.0-48.0) mmHg POC ABG pO2 (83-108) mmHg ABG Hemoglobin (12.0-17.5) ABG Oxyhemoglobin (94-98) ABG Sodium (136.0-145.0) mmol/L ABG Potassium (3.40-4.50) mmol/L ABG Glucose (65-95) mg/dL Carboxyhemoglobin (0.5-1.5) Sodium 134 L (137-145) mmol/L Potassium 5.9 H D (3.6-5.0) mmol/L Carbon Dioxide 17 L D (22-30) mmol/L BUN 47 H (9-20) mg/dL Creatinine 2.2 H D (0.8-1.3) mg/dL Glucose 188 H (75-100) mg/dL Lactic Acid (0.7-2.0) mmol/L Calcium 7.6 L (8.4-10.2) mg/dL Arterial Blood Glucose (65-95) mg/dL Arterial Blood Ionized Calcium (4.6-5.3) mg/dL Urine WBC (Auto) (0.0-6.0) /HPF Crossmatch See Detail 11/03/20 11/03/20 11/03/20 Range/Units 13:20 16:11 20:01 WBC (4.5-11.0) K/mm3 Hgb (11.8-15.2) gm/dl Hct (35.5-45.6) % Seg Neuts % (Manual) (40.0-70.0) % Lymphocytes % (Manual) (13.4-35.0) % Seg Neutrophils # Man (1.8-7.7) K/mm3 Monocytes # (Manual) (0.0-0.8) K/mm3 Heparin Anti-Xa Level (0.3-0.7) U.I./ml ABG pH 7.289 L (7.320-7.450) POC ABG pCO2 31.8 L (32.0-48.0) mmHg POC ABG pO2 156.7 H 119.6 H (83-108) mmHg ABG Hemoglobin 10.7 L 9.7 L (12.0-17.5) ABG Oxyhemoglobin 98.2 H (94-98) ABG Sodium 127.7 L 129.5 L (136.0-145.0) mmol/L ABG Potassium 5.8 H 5.9 H (3.40-4.50) mmol/L ABG Glucose 190 H 174 H (65-95) mg/dL Carboxyhemoglobin 0.3 L 0.1 L (0.5-1.5) Sodium (137-145) mmol/L Potassium (3.6-5.0) mmol/L Carbon Dioxide (22-30) mmol/L BUN (9-20) mg/dL Creatinine (0.8-1.3) mg/dL Glucose (75-100) mg/dL Lactic Acid 7.40 H* (0.7-2.0) mmol/L Calcium (8.4-10.2) mg/dL Arterial Blood Glucose 190 H 174 H (65-95) mg/dL Arterial Blood Ionized Calcium 4.3 L 4.3 L (4.6-5.3) mg/dL Urine WBC (Auto) (0.0-6.0) /HPF Crossmatch 11/03/20 11/04/20 11/04/20 Range/Units 21:14 04:00 04:00 WBC 32.8 H (4.5-11.0) K/mm3 Hgb 11.7 L (11.8-15.2) gm/dl Hct 35.0 L (35.5-45.6) % Seg Neuts % (Manual) 82.0 H (40.0-70.0) % Lymphocytes % (Manual) 10.0 L (13.4-35.0) % Seg Neutrophils # Man 26.9 H (1.8-7.7) K/mm3 Monocytes # (Manual) 2.3 H (0.0-0.8) K/mm3 Heparin Anti-Xa Level 0.73 H (0.3-0.7) U.I./ml ABG pH (7.320-7.450) POC ABG pCO2 (32.0-48.0) mmHg POC ABG pO2 (83-108) mmHg ABG Hemoglobin (12.0-17.5) ABG Oxyhemoglobin (94-98) ABG Sodium (136.0-145.0) mmol/L ABG Potassium (3.40-4.50) mmol/L ABG Glucose (65-95) mg/dL Carboxyhemoglobin (0.5-1.5) Sodium 133 L (137-145) mmol/L Potassium 5.7 H (3.6-5.0) mmol/L Carbon Dioxide 20 L (22-30) mmol/L BUN 57 H (9-20) mg/dL Creatinine 2.3 H (0.8-1.3) mg/dL Glucose 129 H (75-100) mg/dL Lactic Acid (0.7-2.0) mmol/L Calcium 7.2 L (8.4-10.2) mg/dL Arterial Blood Glucose (65-95) mg/dL Arterial Blood Ionized Calcium (4.6-5.3) mg/dL Urine WBC (Auto) (0.0-6.0) /HPF Crossmatch 11/04/20 11/04/20 Range/Units 07:57 11:00 WBC (4.5-11.0) K/mm3 Hgb (11.8-15.2) gm/dl Hct (35.5-45.6) % Seg Neuts % (Manual) (40.0-70.0) % Lymphocytes % (Manual) (13.4-35.0) % Seg Neutrophils # Man (1.8-7.7) K/mm3 Monocytes # (Manual) (0.0-0.8) K/mm3 Heparin Anti-Xa Level (0.3-0.7) U.I./ml ABG pH (7.320-7.450) POC ABG pCO2 (32.0-48.0) mmHg POC ABG pO2 132.7 H (83-108) mmHg ABG Hemoglobin 11.5 L (12.0-17.5) ABG Oxyhemoglobin (94-98) ABG Sodium 130.6 L (136.0-145.0) mmol/L ABG Potassium 5.3 H (3.40-4.50) mmol/L ABG Glucose 145 H (65-95) mg/dL Carboxyhemoglobin 0.2 L (0.5-1.5) Sodium (137-145) mmol/L Potassium (3.6-5.0) mmol/L Carbon Dioxide (22-30) mmol/L BUN (9-20) mg/dL Creatinine (0.8-1.3) mg/dL Glucose (75-100) mg/dL Lactic Acid (0.7-2.0) mmol/L Calcium (8.4-10.2) mg/dL Arterial Blood Glucose 145 H (65-95) mg/dL Arterial Blood Ionized Calcium 4.4 L (4.6-5.3) mg/dL Urine WBC (Auto) 19.0 H (0.0-6.0) /HPF Crossmatch Assessment and Plan Cultures: None Assessment: 70-year-old male with history of hypertension, hypothyroidism, admitted on 10/23/2020 secondary to 2-day history of acute altered mental status with confusion and diminished cognition; noted to have a left MCA CVA and right leg acute thrombosis, now with worsening leukocytosis and on pressors: #Severe sepsis with septic shock: Not present on admission. Now with worsening leukocytosis, leukemoid reaction, on pressors, worsening creatinine, elevated lactate; etiology unclear. Likely secondary to acute hypoxemic thrombus of the right lower extremity complicated with compartment syndrome, should rule out bacteremia, UTI, pneumonia and other nosocomial infections. #Acute CVA: MRI with acute infarction of the left MCA, repeat MRI with evolving changes. Neurology on board. #Acute right leg thromboses: Complicated with compartment syndrome s/p open thrombectomy of the right lower extremity and right lower extremity compartment syndrome fasciotomy on 11/02/2020. #STACEY: Worsening creatinine. Renally adjust antibiotics. #Acute respiratory failure: Intubated overnight. Chest x-ray with pulmonary edema. Elevated BNP. CT chest shows small pericardial effusion, small bilateral pleural effusion, bilateral interstitial disease. SARS-CoV-2 PCR negative. #Cardiomyopathy: EF 35 to 40%. #Left atrial appendage thrombus: Patient was on heparin drip, currently on hold due to surgical wound bleeding Recommendations: -Obtain blood culture, urinalysis, respiratory cultures, all ordered -Start cefepime IV renally adjusted -Start vancomycin IV renally adjusted -Monitor bleeding from right leg surgical -Monitor leukocytosis Will follow. Shasta Ortega MD Infectious Diseases Industrial Service Technician [facility] M [phone] O [phone]
--- NOTE | 2020-11-04 12:07 | Electrocardiograph Report ---
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
[2020-11-04] MEDS ORDERED: DEXTROSE 50% IN WATER (25GM) 50 ML SYRINGE IV ONE (12:32)
[2020-11-04] MEDS ORDERED: SODIUM BICARB 8.4% 50 MEQ/50 ML SYRINGE IV ONE (12:33)
[2020-11-04] MEDS ORDERED: CALCIUM GLUCONATE 2,000 MG in SODIUM CHLORIDE 0.9% 100 ML IV ONE (13:00)
[2020-11-04] MEDS ORDERED: INSULIN REGULAR, HUMAN 100 UNITS/1 ML IV ONE (13:00)
[2020-11-04] MEDS ORDERED: SODIUM POLYSTYRENE 15 GM/60 ML ORAL LIQD PO ONE (13:00)
--- NOTE | 2020-11-04 13:01 | Progress Note ---
Assessment and Plan Acute hypoxemic respiratory failure. Acute embolic cerebrovascular accident. Acute limb ischemia, status post thrombectomy. Left atrial appendage. Acute congestive heart failure exacerbation. Obesity. History of hypothyroidism. Leukocytosis. Acute encephalopathy, toxic metabolic - discontinue Dobutrex - reduced set rate to 12/min - resume Heparin re: risk benefit analysis but at low dose protocol and H&H q6h in short term - seen by ID and on Vancomycin + Cefepime - repeat lactate - get Urine Na & Cr; re: FENA - nephrology consulted - continue care as below otherwise; - continue to wean supplemental oxygen for target O2 sat's > 90% acutely - VAP bundle addressed - continue lung protective strategies - continue bronchodilators with pulmonary hygiene per RT - wean per pulmonary driven protocols otherwise - avoid nephrotoxins, renally dose all medications - continue Daily SAT and SBT assessment as tolerated - continue accuchecks with glycemic control per SSI (While critically ill target blood glucose of 140-180 mg/dL; avoid hypoglycemia) - sedation prn for target RASS 0 to -1 - continue to avoid benzodiazepine's, reduce the possibility of delirium - complete AB's per ID rec's - prn analgesia per CPOT score - Maintenance of sleep-wake cycle, avoid delirium - continue enteral nutritional support at goal rate as tolerated - G.I. & VTE prophylaxis - PT/OT/ROM exercises - continue mobility protocols for pressure ulcer prophylaxis - Monitor hemodynamics closely - continue other care per attending / other consultants - discharge planning ongoing concurrently .... Re-evaluate in am & prn CONDITION: CRITICAL PROGNOSIS: GUARDED CODE STATUS: FULL CODE The high probability of a clinically significant, sudden or life-threatening deterioration of the [respiratory, cardiovascular, renal & neurologic] system(s) required my full and direct attention, intervention and personal management. The aggregate critical care time was [34] minutes without overlap. Time includes spent on; [x] Data Review and interpretation [x] Patient assessment and monitoring of vital signs [x] Documentation [x] Medication orders and management Subjective Date of service: 11/04/20 Principal diagnosis: Ac hypoxemic resp failure; CVA; Acute limb ischemia; Acute encephalopathy Interval history: Patient is seen today for: Acute hypoxemic respiratory failure; Acute embolic CVA; Acute limb ischemia; Left atrial appendage; Acute CHF; Obesity; Acute encephalopathy, toxic metabolic Seen and examined at bedside; 24hour events reviewed; nursing and respiratory care staff consulted; no adverse overnight events reported to me; resting peacefully in bed; remains on MVS and tolerating well; acidosis improved; still with AMS; no gross bleeding Objective Vital Signs - 12hr 11/04/20 11/04/20 11/04/20 01:00 01:30 02:00 Temperature Pulse Rate 113 H 112 H 124 H Pulse Rate [ From Monitor] Respiratory 17 16 12 Rate Blood Pressure 112/55 112/67 111/65 O2 Sat by Pulse 99 97 Oximetry 11/04/20 11/04/20 11/04/20 02:30 03:00 03:30 Temperature Pulse Rate 108 H 102 H 105 H Pulse Rate [ From Monitor] Respiratory 14 15 16 Rate Blood Pressure 73/36 137/72 134/81 O2 Sat by Pulse 99 99 Oximetry 11/04/20 11/04/20 11/04/20 04:00 04:21 04:30 Temperature 97.9 F Pulse Rate 103 H 109 H 126 H Pulse Rate [ 105 H From Monitor] Respiratory 16 16 Rate Blood Pressure 131/75 122/72 O2 Sat by Pulse 100 Oximetry 11/04/20 11/04/20 11/04/20 05:00 05:30 06:00 Temperature Pulse Rate 112 H 119 H 126 H Pulse Rate [ From Monitor] Respiratory 16 16 16 Rate Blood Pressure 71/44 88/57 92/57 O2 Sat by Pulse 99 99 Oximetry 11/04/20 11/04/20 11/04/20 06:30 07:00 07:30 Temperature Pulse Rate 113 H 112 H 134 H Pulse Rate [ From Monitor] Respiratory 15 17 18 Rate Blood Pressure 92/68 114/75 109/82 O2 Sat by Pulse 100 98 Oximetry 11/04/20 11/04/20 11/04/20 07:33 08:00 08:05 Temperature 98.1 F Pulse Rate 114 H 117 H Pulse Rate [ From Monitor] Respiratory 13 Rate Blood Pressure 105/67 105/67 O2 Sat by Pulse 98 100 Oximetry 11/04/20 11/04/20 11/04/20 08:30 09:00 09:30 Temperature Pulse Rate 110 H 109 H 106 H Pulse Rate [ From Monitor] Respiratory 17 17 17 Rate Blood Pressure 112/73 116/78 111/75 O2 Sat by Pulse Oximetry 11/04/20 11/04/20 11/04/20 10:00 10:11 10:13 Temperature Pulse Rate 109 H 102 H 102 H Pulse Rate [ From Monitor] Respiratory 16 Rate Blood Pressure 122/74 122/74 122/74 O2 Sat by Pulse Oximetry 11/04/20 11/04/20 11/04/20 10:30 11:00 12:21 Temperature 99.1 F Pulse Rate 106 H 109 H Pulse Rate [ From Monitor] Respiratory 18 17 Rate Blood Pressure 137/84 124/88 O2 Sat by Pulse 100 100 Oximetry Constitutional: no acute distress, other (elderly male with mildly increased respiratory effort at rest on MVS) Eyes: non-icteric ENT: oropharynx moist, other (ETT 25 cm DALIA) Neck: supple, no lymphadenopathy, no JVD Effort: mildly labored Ascultation: Bilateral: diminished breath sounds, rhonchi (scant) Percussion: Bilateral: not dull Cardiovascular: regular rate and rhythm Gastrointestinal: normoactive bowel sounds, soft, non-tender, non-distended Integumentary: normal Extremities: no cyanosis, pink and warm, edema (RLExt), other (RLExt fasciotomy) Neurologic: pupils equal and round, unable to assess, other (Right Hemiparesis) Psychiatric: other (encephalopathic) CBC and BMP: 11/05/20 03:37 11/05/20 03:37 ABG, PT/INR, D-dimer: ABG ABG pH 7.344 (7.320-7.450) 11/04/20 07:57 POC ABG pCO2 40.8 mmHg (32.0-48.0) 11/04/20 07:57 POC ABG pO2 132.7 mmHg (83-108) H 11/04/20 07:57 POC ABG HCO3 21.7 11/04/20 07:57 ABG O2 Saturation 98.4 (0-100) 11/04/20 07:57 PT/INR, D-dimer PT 14.1 Sec. (12.2-14.9) 11/02/20 15:06 INR 1.11 (0.87-1.13) 11/02/20 15:06 D-Dimer 4139.61 ng/mlDDU (0-234) H 10/23/20 18:23 Abnormal lab findings: Abnormal Labs 10/23/20 10/23/20 10/23/20 13:32 18:23 18:23 WBC Hgb Hct Seg Neuts % (Manual) Lymphocytes % (Manual) Seg Neutrophils # Man Monocytes # (Manual) D-Dimer 4139.61 H Heparin Anti-Xa Level ABG pH POC ABG pCO2 POC ABG pO2 ABG Hemoglobin ABG Oxyhemoglobin ABG Sodium ABG Potassium ABG Glucose Carboxyhemoglobin Sodium Potassium Chloride 109.1 H Carbon Dioxide BUN Creatinine Glucose POC Glucose Lactic Acid Calcium Lactate Dehydrogenase 334 H C-Reactive Protein 2.50 H NT-Pro-B Natriuret Pep 5806 H TSH Arterial Blood Glucose Arterial Blood Ionized Calcium Urine WBC (Auto) Crossmatch 10/23/20 10/23/20 10/26/20 18:23 18:23 05:34 WBC Hgb Hct Seg Neuts % (Manual) Lymphocytes % (Manual) Seg Neutrophils # Man Monocytes # (Manual) D-Dimer Heparin Anti-Xa Level ABG pH POC ABG pCO2 POC ABG pO2 ABG Hemoglobin ABG Oxyhemoglobin ABG Sodium ABG Potassium ABG Glucose Carboxyhemoglobin Sodium Potassium Chloride Carbon Dioxide BUN 30 H Creatinine Glucose 120 H POC Glucose Lactic Acid Calcium Lactate Dehydrogenase C-Reactive Protein NT-Pro-B Natriuret Pep TSH 7.100 H 6.540 H Arterial Blood Glucose Arterial Blood Ionized Calcium Urine WBC (Auto) Crossmatch 10/27/20 10/28/20 11/02/20 08:55 05:25 07:17 WBC 15.8 H Hgb Hct Seg Neuts % (Manual) Lymphocytes % (Manual) Seg Neutrophils # Man Monocytes # (Manual) D-Dimer Heparin Anti-Xa Level ABG pH POC ABG pCO2 POC ABG pO2 ABG Hemoglobin ABG Oxyhemoglobin ABG Sodium ABG Potassium ABG Glucose Carboxyhemoglobin Sodium Potassium Chloride Carbon Dioxide BUN 28 H 28 H Creatinine Glucose 124 H 110 H POC Glucose Lactic Acid Calcium 8.2 L Lactate Dehydrogenase C-Reactive Protein NT-Pro-B Natriuret Pep TSH Arterial Blood Glucose Arterial Blood Ionized Calcium Urine WBC (Auto) Crossmatch 11/02/20 11/02/20 11/02/20 07:17 15:00 15:06 WBC Hgb 15.7 H Hct 47.5 H D Seg Neuts % (Manual) Lymphocytes % (Manual) Seg Neutrophils # Man Monocytes # (Manual) D-Dimer Heparin Anti-Xa Level ABG pH POC ABG pCO2 POC ABG pO2 ABG Hemoglobin ABG Oxyhemoglobin ABG Sodium ABG Potassium ABG Glucose Carboxyhemoglobin Sodium 136 L Potassium Chloride Carbon Dioxide BUN 33 H Creatinine Glucose 107 H POC Glucose Lactic Acid Calcium 7.9 L Lactate Dehydrogenase C-Reactive Protein NT-Pro-B Natriuret Pep TSH Arterial Blood Glucose Arterial Blood Ionized Calcium Urine WBC (Auto) Crossmatch See Detail 11/02/20 11/02/20 11/03/20 21:25 22:28 05:47 WBC 21.8 H Hgb Hct Seg Neuts % (Manual) Lymphocytes % (Manual) Seg Neutrophils # Man Monocytes # (Manual) D-Dimer Heparin Anti-Xa Level 1.63 H < 0.10 L ABG pH POC ABG pCO2 POC ABG pO2 ABG Hemoglobin ABG Oxyhemoglobin ABG Sodium ABG Potassium ABG Glucose Carboxyhemoglobin Sodium Potassium Chloride Carbon Dioxide BUN Creatinine Glucose POC Glucose Lactic Acid Calcium Lactate Dehydrogenase C-Reactive Protein NT-Pro-B Natriuret Pep TSH Arterial Blood Glucose Arterial Blood Ionized Calcium Urine WBC (Auto) Crossmatch 11/03/20 11/03/20 11/03/20 13:20 13:20 13:20 WBC 29.0 H Hgb 10.4 L Hct 31.2 L D Seg Neuts % (Manual) Lymphocytes % (Manual) Seg Neutrophils # Man Monocytes # (Manual) D-Dimer Heparin Anti-Xa Level ABG pH POC ABG pCO2 POC ABG pO2 ABG Hemoglobin ABG Oxyhemoglobin ABG Sodium ABG Potassium ABG Glucose Carboxyhemoglobin Sodium 134 L Potassium 5.9 H D Chloride Carbon Dioxide 17 L D BUN 47 H Creatinine 2.2 H D Glucose 188 H POC Glucose Lactic Acid 7.40 H* Calcium 7.6 L Lactate Dehydrogenase C-Reactive Protein NT-Pro-B Natriuret Pep TSH Arterial Blood Glucose Arterial Blood Ionized Calcium Urine WBC (Auto) Crossmatch 11/03/20 11/03/20 11/03/20 16:11 20:01 21:14 WBC Hgb Hct Seg Neuts % (Manual) Lymphocytes % (Manual) Seg Neutrophils # Man Monocytes # (Manual) D-Dimer Heparin Anti-Xa Level 0.73 H ABG pH 7.289 L POC ABG pCO2 31.8 L POC ABG pO2 156.7 H 119.6 H ABG Hemoglobin 10.7 L 9.7 L ABG Oxyhemoglobin 98.2 H ABG Sodium 127.7 L 129.5 L ABG Potassium 5.8 H 5.9 H ABG Glucose 190 H 174 H Carboxyhemoglobin 0.3 L 0.1 L Sodium Potassium Chloride Carbon Dioxide BUN Creatinine Glucose POC Glucose Lactic Acid Calcium Lactate Dehydrogenase C-Reactive Protein NT-Pro-B Natriuret Pep TSH Arterial Blood Glucose 190 H 174 H Arterial Blood Ionized Calcium 4.3 L 4.3 L Urine WBC (Auto) Crossmatch 11/04/20 11/04/20 11/04/20 04:00 04:00 07:57 WBC 32.8 H Hgb 11.7 L Hct 35.0 L Seg Neuts % (Manual) 82.0 H Lymphocytes % (Manual) 10.0 L Seg Neutrophils # Man 26.9 H Monocytes # (Manual) 2.3 H D-Dimer Heparin Anti-Xa Level ABG pH POC ABG pCO2 POC ABG pO2 132.7 H ABG Hemoglobin 11.5 L ABG Oxyhemoglobin ABG Sodium 130.6 L ABG Potassium 5.3 H ABG Glucose 145 H Carboxyhemoglobin 0.2 L Sodium 133 L Potassium 5.7 H Chloride Carbon Dioxide 20 L BUN 57 H Creatinine 2.3 H Glucose 129 H POC Glucose Lactic Acid Calcium 7.2 L Lactate Dehydrogenase C-Reactive Protein NT-Pro-B Natriuret Pep TSH Arterial Blood Glucose 145 H Arterial Blood Ionized Calcium 4.4 L Urine WBC (Auto) Crossmatch 11/04/20 11/04/20 11:00 11:55 WBC Hgb Hct Seg Neuts % (Manual) Lymphocytes % (Manual) Seg Neutrophils # Man Monocytes # (Manual) D-Dimer Heparin Anti-Xa Level ABG pH POC ABG pCO2 POC ABG pO2 ABG Hemoglobin ABG Oxyhemoglobin ABG Sodium ABG Potassium ABG Glucose Carboxyhemoglobin Sodium Potassium Chloride Carbon Dioxide BUN Creatinine Glucose POC Glucose 110 H Lactic Acid Calcium Lactate Dehydrogenase C-Reactive Protein NT-Pro-B Natriuret Pep TSH Arterial Blood Glucose Arterial Blood Ionized Calcium Urine WBC (Auto) 19.0 H Crossmatch Chest x-ray: image reviewed (ETT in good position) Allied health notes reviewed: nursing
[2020-11-04] MEDS ORDERED: LIPASE 10,500/PROTEASE 25,000/AMYLASE 43,750 (UNITS) DR CAP FEEDTUBE PRN (13:25)
[2020-11-04] MEDS ORDERED: SIMPLE SYRUP 15 ML FEEDTUBE PRN ×2 (13:25)
[2020-11-04] MEDS ORDERED: SODIUM BICARBONATE 325 MG TAB FEEDTUBE PRN (13:25)
[2020-11-04] MEDS: HEPARIN/ 0.45% NACL DRIP 25,000 UNIT/500 ML BAG IV SCH (13:58)
[2020-11-04 15:45] LABS: Creatinine,Urine < 4.2 mg/dL (0.1-20.0)
[2020-11-04] MEDS: SODIUM CHLORIDE 0.9% 1000 ML 1,000 ML IV SCH (17:00)
--- NOTE | 2020-11-04 18:13 | Consultation ---
History of Present Illness - Reason for Consult Consult date: 11/04/20 acute renal failure, hyperkalemia - History of Present Illness The patient is a 70 YO male with hsitory of HTN and Hypothyroidism who presented to [facility] ED 10/23 for evaluation of increased confusion and increased weakness of 2 days duration. Also report of decreased exercise tolerance, shortness of breath on exertion, increased bedbound status and decreased oral intake. On further evaluation pt was found to have a neurologic deficits and clinical symptoms consistent with CVA. A code stroke was Called upon arrival to the ED. The patient was initiated on CVA protocol. Patient was also found to have clinical symptoms consistent with CHF, bilateral pneumonia and acute hypoxemic respiratory failure with pulse oximetry of 89% on room air. Currently patient is being treated for Acute hypoxemic respiratory failure, Acute embolic cerebrovascular accident, Acute R LE ischemia s/p thrombectomy. Left atrial appendage thrombus, Acute congestive heart failure exacerbation and Acute toxic metabolic encephalopathy. Labs significant for Creatinine 2.3, BUN 57, K 5.7 and bicarb 20. Nephrology was consulted for further evaluation and treatment of STACEY and hyperkalemia. Past History Past Medical History: hypertension, hypothyroidism, other (See HPI) Past Surgical History: thyroidectomy Social history: single. denies: smoking, alcohol abuse Family history: hypertension Medications and Allergies Allergies Allergy/AdvReac Type Severity Reaction Status Date / Time No Known Allergies Allergy Unverified 10/23/20 12:44 Home Medications Medication Instructions Recorded Confirmed Last Taken Type Levothyroxine Sodium 150 mcg PO DAILY 10/31/20 10/31/20 Unknown History [Levothyroxine] carvediloL [Coreg] 6.25 mg PO BID 10/31/20 10/31/20 Unknown History lisinopriL [Lisinopril] 10 mg PO DAILY 10/31/20 10/31/20 Unknown History Active Meds: Active Medications Acetaminophen (Acetaminophen 325 Mg Tab) 650 mg PO Q4H PRN PRN Reason: Pain, Mild (1-3) Lipase/Protease/Amylase (Lipase 10,500/Protease 25,000/Amylase 43,750 (Units) Dr Fernández) 1 each FEEDTUBE PRN PRN PRN Reason: For Clogged Feeding Tube Ascorbic Acid (Ascorbic Acid 500 Mg Tab) 500 mg PO BID ALEX Last Admin: 11/04/20 10:11 Dose: 500 mg Documented by: Aspirin (Aspirin 325 Mg Tab) 325 mg PO QDAY [facility] Last Admin: 11/04/20 10:11 Dose: 325 mg Documented by: Atorvastatin Calcium (Atorvastatin 40 Mg Tab) 40 mg PO QHS [facility] Last Admin: 11/03/20 21:34 Dose: 40 mg Documented by: Bisacodyl (Bisacodyl 10 Mg Rect Supp) 10 mg [place] QDAY PRN PRN Reason: Constipation Cholecalciferol (Cholecalciferol (Vit D3) 1000 Unit (25 Mcg) Tab) 1,000 unit PO QDAY [facility] Last Admin: 11/04/20 10:11 Dose: 1,000 unit Documented by: Docusate Sodium (Docusate Sodium 100 Mg Cap) 100 mg PO BID [facility] Last Admin: 11/04/20 10:11 Dose: 100 mg Documented by: Famotidine (Famotidine 20 Mg/2 Ml Inj) 20 mg IV DAILY [facility] Last Admin: 11/04/20 10:11 Dose: 20 mg Documented by: Fentanyl (Fentanyl 100 Mcg/2 Ml Inj) 50 mcg IV Q10MIN PRN PRN Reason: ANALGESIA Heparin Sodium (Porcine) (Heparin 10,000 Units/10 Ml Vial) 3,900 unit 40 u nit/kg (3900 unit) IV Q6H PRN PRN Reason: Anti-Xa Assay < 0.1 units/ml Hydrophilic Ointment (Lip Therapy Vaseline) 1 applic TP Q2HR PRN PRN Reason: Dry Lips Heparin Sodium/Sodium Chloride (Heparin/ 0.45% Nacl-25,000 Unit/500 Ml) 25,000 unit in 500 mls @ 29 mls/hr IV TITR ALEX; Protocol Last Admin: 11/04/20 13:58 Dose: 1,000 units/hr, 20 mls/hr Documented by: Sodium Chloride (Nacl 0.9% 500 Ml) 500 mls @ 125 mls/hr IV DIRECT ALEX Last Admin: 11/04/20 05:06 Dose: 125 mls/hr Documented by: Fentanyl Citrate (Fentanyl Drip Premix) 2,000 mcg in 100 mls @ 4.86 mls/hr IV TITR ALEX; Protocol Last Admin: 11/04/20 06:24 Dose: 1 mcg/kg/hr, 4.86 mls/hr Documented by: NORepinephrine/NS 8 MG-250 ML (Norepinephrine/Ns 8 Mg-250 Ml (Double Conc)) 8 mg in 250 mls @ 3.75 mls/hr IV TITRATE ALEX; Protocol Last Admin: 11/04/20 17:51 Dose: 14 mcg/min, 26.25 mls/hr Documented by: Sodium Chloride (Nacl 0.9% 500 Ml) 500 mls @ 0 mls/hr IV ONCE ALEX Stop: 11/04/20 19:58 Last Admin: 11/03/20 23:42 Dose: 50 mls/hr Documented by: Cefepime HCl (Cefepime/Ns 2 Gm/100 Ml) 2 gm in 100 mls @ 200 mls/hr IV Q12H ALEX; Protocol Last Admin: 11/04/20 11:04 Dose: 200 mls/hr Documented by: Sodium Chloride (Nacl 0.9% 1000 Ml) 1,000 mls @ 125 mls/hr IV DIRECT ALEX Stop: 11/06/20 01:29 Magnesium Hydroxide (Magnesium Hydroxide (Mom) Oral Liqd Udc) 30 ml PO Q4H PRN PRN Reason: Constipation Last Admin: 10/29/20 15:01 Dose: 30 ml Documented by: Metoclopramide HCl (Metoclopramide 10 Mg Tab) 10 mg PO Q6H PRN PRN Reason: Nausea And Vomiting Metoprolol Tartrate (Metoprolol Tartrate 25 Mg Tab) 6.25 mg PO BID ALEX Last Admin: 11/04/20 10:11 Dose: Not Given Documented by: Multi-Ingred Cream/Lotion/Oil/Oint (Mineral Oil/Petrolatum, White Ophth Oint 3.5 Gm) 1 applic OU Q4HR PRN PRN Reason: Dry Eye(s) Ondansetron HCl (Ondansetron 4 Mg/2 Ml Inj) 4 mg IV Q8H PRN PRN Reason: Nausea And Vomiting Oxycodone/Acetaminophen (Oxycodone /Acetaminophen 5-325mg Tab) 1 tab PO Q6H PRN PRN Reason: Pain, Moderate (4-6) Promethazine HCl (Promethazine 25 Mg Rect Supp) 25 mg [place] Q6H PRN PRN Reason: Nausea And Vomiting Simple Syrup (Simple Syrup 15 Ml) 15 ml FEEDTUBE PRN PRN PRN Reason: Hypoglycemia Simple Syrup (Simple Syrup 15 Ml) 30 ml FEEDTUBE PRN PRN PRN Reason: Hypoglycemia Sodium Bicarbonate (Sodium Bicarbonate 325 Mg Tab) 325 mg FEEDTUBE PRN PRN PRN Reason: For Clogged Feeding Tube Sodium Chloride (Sodium Chloride 0.9% 10 Ml Flush Syringe) 10 ml IV PRN PRN PRN Reason: LINE FLUSH Last Admin: 10/28/20 22:36 Dose: 10 ml Documented by: Zinc Sulfate (Zinc Sulfate 220 Mg Cap) 220 mg PO BID ALEX Last Admin: 11/04/20 10:11 Dose: 220 mg Documented by: Exam - Vital Signs Vital signs: Vital Signs Temp Pulse Resp BP Pulse Ox 97.7 F 82 18 168/115 98 10/23/20 12:47 10/23/20 12:47 10/23/20 12:47 10/23/20 12:47 10/23/20 12:47 Results - Lab Results 11/04/20 19:55 11/04/20 19:55 Most recent lab results ABG pH 7.344 (7.320-7.450) 11/04/20 07:57 ABG O2 Saturation 98.4 (0-100) 11/04/20 07:57 Calcium 7.2 mg/dL (8.4-10.2) L 11/04/20 04:00 Magnesium 2.20 mg/dL (1.7-2.3) 10/23/20 20:33 Urine Creatinine < 4.2 mg/dL (0.1-20.0) 11/04/20 12:50 Urine Sodium 10 mmol/L 11/04/20 12:50 Assessment and Plan 1. Acute kidney injury: Vasomotor STACEY in the setting of shock. Urine studies and Renal US ordered. Monitor renal function. Renal prognosis is guarded. Avoid nephrotoxic agents. Meds dosage based on GFR. 2. FEN: Hyperkalemia, meds ordered, monitor. Hyperchloremic metabolic acidosis, monitor. Monitor lytes and volume status. 3. Severe sepsis with shock: Etiology unclear, rule out bacteremia, UTI, pneumonia and other nosocomial infections. On Levophed. Followed by ID. 4. 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 Seen by Neurology. 5. Acute hypoxemic respiratory failure: Intubated, on vent. 6. Acute on chronic systolic heart failure: EF 40-45%. Followed by Cards. 7. Left atrial thrombus: Heparin drip. 8. Acute R LE ischemia: S/p thrombectomy. 9. Normochromic anemia: Monitor. Subjective: Patient was seen and examined at the bedside. RN at the bedside. Examination: General appearance: well-developed, appears stated age, no distress, intubated, on vent, NG tube HEENT: SCOTTY, atraumatic Neck: trachea midline Respiratory: Clear to Auscultation Heart: S1S2, regular, no murmur Abdomen: soft, appears distended, bowel sounds, NT Integumentary: R LE cold and clammy, dressing noted Neurologic: opens eyes, intermittently moving extremities Ext: trace R LE edema noted : Winkler catheter
[2020-11-04 20:16] LABS: Hematocrit 28.3 % (35.5-45.6); Hemoglobin 9.7 gm/dl (11.8-15.2)
--- NOTE | 2020-11-04 20:17 | Progress Note ---
Assessment and Plan Continue IV heparin gtt if no further bleeding from wound. Wean pressors as tolerated. Closely monitor volume status while receiving IV fluids. Eventually plan for outpatient ischemic eval when clinically stable, ideally 6 weeks out. Pt seen in conjunction with Dr. Nehal Taylor, who agrees with the assessment and plan of care. - Patient Problems (1) Acute CVA (cerebrovascular accident) Current Visit: Yes Status: Acute (2) Thrombus of atrial appendage Current Visit: Yes Status: Acute (3) Sepsis Current Visit: Yes Status: Acute Qualifiers: Severe sepsis shock status: with septic shock (4) Acute hypoxemic respiratory failure Current Visit: Yes Status: Acute (5) Acute HFrEF (heart failure with reduced ejection fraction) Current Visit: Yes Status: Acute (6) Cardiomyopathy Current Visit: Yes Status: Acute (7) Limb ischemia Current Visit: Yes Status: Acute (8) Compartment syndrome Current Visit: Yes Status: Acute (9) STACEY (acute kidney injury) Current Visit: Yes Status: Acute (10) Hyperkalemia Current Visit: Yes Status: Acute (11) Anemia Current Visit: Yes Status: Acute (12) Hypothyroidism Current Visit: Yes Status: Chronic (13) LBBB (left bundle branch block) Current Visit: Yes Status: Acute (14) H/O: HTN (hypertension) Current Visit: Yes Status: Chronic Subjective Date of service: 11/04/20 Principal diagnosis: Acute CVA, Atrial Appendage Thrombus Interval history: On Levo gtt. Tele reviewed - SR/ST 100-110s. Objective Last Vital Signs Temp 99 F 11/04/20 19:35 Pulse 106 H 11/04/20 19:00 Resp 11 L 11/04/20 19:00 BP 99/61 11/04/20 19:00 Pulse Ox 100 11/04/20 19:00 - Physical Examination General: No Apparent Distress HEENT: Positive: Normocephaly, Mucus Membranes Moist Neck: Positive: neck supple, trachea midline, thyromegaly. Negative: JVD/HJR Cardiac: Positive: Regular Rhythm, S1/S2, Tachycardia Lungs: Positive: Other (coarse anteriorly) Neuro: Positive: Weakness (right-sided), Other (aphasia) Abdomen: Positive: Soft. Negative: Distended Skin: Negative: Rash Musculoskeletal: No Fluid Collection Extremities: Present: edema, Other (s/p RLE open thrombectomy with four-quadrant fasciotomy) - Labs and Meds CBC 11/04/20 Range/Units 04:00 WBC 32.8 H (4.5-11.0) K/mm3 RBC 4.03 (3.65-5.03) M/mm3 Hgb 11.7 L (11.8-15.2) gm/dl Hct 35.0 L (35.5-45.6) % Plt Count 184 (140-440) K/mm3 Comprehensive Metabolic Panel 11/04/20 Range/Units 04:00 Sodium 133 L (137-145) mmol/L Potassium 5.7 H (3.6-5.0) mmol/L Chloride 103.6 (98-107) mmol/L Carbon Dioxide 20 L (22-30) mmol/L BUN 57 H (9-20) mg/dL Creatinine 2.3 H (0.8-1.3) mg/dL Glucose 129 H (75-100) mg/dL Calcium 7.2 L (8.4-10.2) mg/dL - Imaging and Cardiology EKG: report reviewed, image reviewed Echo: report reviewed (11/01/2020 - likely stalk of thrombus in CARIN of heterogenous quality, EF 40-45%, negative bubble study) - Telemetry EKG Rhythm: Sinus Tachycardia - EKG Sinus rhythms and dysrhythmias: sinus rhythm AV and intraventricular conduction: left bundle branch block Repolarization changes or abnormalities: nonspecific abnormality, ST segment, and/or T wave - Allied health notes Allied health notes reviewed: nursing
[2020-11-04 20:46] LABS: INR 1.3 (0.87-1.13)
[2020-11-05] MEDS: SODIUM CHLORIDE 0.9% 1000 ML 1,000 ML IV SCH (01:44)
[2020-11-05] MEDS: fentaNYL DRIP Premix 2,000 MCG/100 ML BAG IV SCH ×2 (01:44→19:15)
[2020-11-05] MEDS: NORepinephrine/NS 8 MG-250 ML 8 MG/250 ML INFUS..BTL IV SCH ×2 (03:32→14:42)
[2020-11-05 03:54] LABS: Hematocrit 25.6 % (35.5-45.6); Hemoglobin 8.8 gm/dl (11.8-15.2); Mean Corpuscular HGB Conc 34 % (32-34); Mean Corpuscular Volume 85 fl (84-94); Platelet Count 153 K/mm3 (140-440); Red Blood Count 3.01 M/mm3 (3.65-5.03); Red Cell Distribution Width 14.6 % (13.2-15.2)
--- NOTE | 2020-11-05 04:01 | XRay Report ---
CHEST 1 VIEW 11/05/2020 2:44 AM INDICATION / CLINICAL INFORMATION: follow up respiratory failure. COMPARISON: Previous day. FINDINGS: SUPPORT DEVICES: Unchanged. HEART / MEDIASTINUM: Stable cardiomegaly. LUNGS / PLEURA: No significant pulmonary or pleural abnormality. No pneumothorax. New 1.4 mm nodule s een left lung base laterally. ADDITIONAL FINDINGS: No significant additional findings. IMPRESSION: 1. Stable cardiomegaly. 2. New nodule left base laterally is favored to be artifactual. This could be evaluated on follow-up. Signer Name: Scooby Merchant MD Signed: 11/05/2020 3:57 AM Workstation Name: [id number]
--- NOTE | 2020-11-05 04:40 | XRay Report ---
ABDOMEN 1 VIEW(S) INDICATION / CLINICAL INFORMATION: Firm abdomen. COMPARISON: Previous day. FINDINGS: TUBES / LINES: NG tube in satisfactory position. BOWEL GAS PATTERN: Increasing bowel distention appears to be predominantly colon. Moderate/large colo essie stool. No free air. ADDITIONAL FINDINGS: No significant additional findings. Signer Name: Scooby Merchant MD Signed: 11/05/2020 4:35 AM Workstation Name: [id number]
[2020-11-05 04:46] LABS: Total Cells Counted 200
[2020-11-05 04:47] LABS: Anisocytosis 1+; Platelet Estimate Consistent w Auto; Toxic Granulation 1+
[2020-11-05] MEDS: MAGNESIUM HYDROXIDE (MOM) ORAL LIQD UDC PO PRN (05:02)
--- NOTE | 2020-11-05 10:11 | Progress Note ---
Assessment and Plan Assessment and Plan 70 yo male with HTN, hypothyroidism who presents with 2 days of confusion, weakness and noted with an acute partial L MCA territory ischemic stroke with noted expressive aphasia, dysarthria, right hemiparesis, with possible right homonymous hemianopsia. 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 improved possible restart heparine decision is to vascuale surgery -R/O paroxysmal afib); -Pt. will need AC If no systemic contraindication exist , can start on IV heparine -ASA 81 mg - BP Goal <150/80 - he is currently hypotensive --off Dobutamin . stil on epinephrine smal dose - Statin therapy for a goal LDL of 70, #LDL#87 -- mainatin Lipitor at 40 mg - # Hypertension - goal 150/80-- now is hypotensive # Hypothyroidism - management per primary team. # Unsteady Gait - pt/ot evaluation/monitoring. 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 PLAN 1- maintain medications 2- MRI brain is remarkable for a new CVA 3- Treat underlying infection 4- NPO / Intubated 5- PT/ST evaluate 6- OFF IV heparine due to leg site bleeding -- vascualr surgery to decide on restart heparine findings is D/W son will follow Critical care statement The high probability OF a clinically significant sudden or life-threatening deterioration of the cardiorespiratory system and endocrine system required my full and direct attention, intervention and postoperative management. The aggregate critical care time was 40 minutes. The time is in addition to time spent performing reported procedures but includes the followin: Data review and interpretation 2: Patient assessment and monitoring of vital signs 3: Documentation 4:: Medication orders and management Subjective Date of service: 11/05/20 Principal diagnosis: Acute CVA, Atrial Appendage Thrombus Interval history: 70 yo male with htn, hypothyroidism who presents with 2 days of confusion, weakness and noted with an acute partial L MCA territory ischemic infarction, in the setting of an Echo that reveals an EF of 30 to 35%, bilateral pneumonia, and possible CHF exacerbation. Currently, the patient feels slightly better. He was initially noted with a NIHSS of 16 in the ED but presented outside the tPA window and no LVO was noted on CTAs. 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 had right lower Ext. thrombus underwent thrombectomy he is in ICU today he seems to be more out of it with worseing of aphasia and right side weakness not follow command Past History Past Medical History: hypertension, hypothyroidism, other (See HPI) Past Surgical History: thyroidectomy Social history: single. denies: smoking, alcohol abuse Family history: hypertension Objective - Vital Sign Vital Signs - 12hr 11/04/20 11/04/20 11/04/20 22:15 22:30 22:45 Temperature Pulse Rate 100 H 104 H 99 H Pulse Rate [ From Monitor] Respiratory 11 L 11 L 12 Rate Blood Pressure 109/75 114/78 105/65 O2 Sat by Pulse 100 100 100 Oximetry 11/04/20 11/04/20 11/04/20 23:00 23:02 23:15 Temperature Pulse Rate 99 H 101 H 100 H Pulse Rate [ From Monitor] Respiratory 14 13 11 L Rate Blood Pressure 110/64 105/78 94/61 O2 Sat by Pulse 100 100 100 Oximetry 11/04/20 11/04/20 11/05/20 23:30 23:45 00:00 Temperature 99.4 F Pulse Rate 100 H 98 H 102 H Pulse Rate [ 97 H From Monitor] Respiratory 12 11 L 11 L Rate Blood Pressure 94/61 102/65 103/56 O2 Sat by Pulse 100 100 100 Oximetry 11/05/20 11/05/20 11/05/20 00:15 00:30 00:34 Temperature Pulse Rate 98 H 97 H 97 H Pulse Rate [ From Monitor] Respiratory 12 12 Rate Blood Pressure 90/62 97/64 97/64 O2 Sat by Pulse 100 Oximetry 11/05/20 11/05/20 11/05/20 00:45 01:00 01:15 Temperature Pulse Rate 97 H 96 H 96 H Pulse Rate [ From Monitor] Respiratory 12 13 13 Rate Blood Pressure 107/68 111/73 113/73 O2 Sat by Pulse 100 100 Oximetry 11/05/20 11/05/20 11/05/20 01:30 01:45 02:00 Temperature Pulse Rate 97 H 100 H 97 H Pulse Rate [ From Monitor] Respiratory 11 L 11 L 11 L Rate Blood Pressure 99/68 100/76 90/58 O2 Sat by Pulse Oximetry 11/05/20 11/05/20 11/05/20 02:15 02:30 02:45 Temperature Pulse Rate 99 H 96 H 102 H Pulse Rate [ From Monitor] Respiratory 16 13 13 Rate Blood Pressure 102/69 102/72 106/66 O2 Sat by Pulse Oximetry 11/05/20 11/05/20 11/05/20 03:00 03:12 03:15 Temperature 98.5 F Pulse Rate 95 H 96 H Pulse Rate [ From Monitor] Respiratory 11 L 12 Rate Blood Pressure 92/57 117/68 O2 Sat by Pulse Oximetry 11/05/20 11/05/20 11/05/20 03:30 03:45 04:00 Temperature Pulse Rate 105 H 96 H 93 H Pulse Rate [ 97 H From Monitor] Respiratory 11 L 14 12 Rate Blood Pressure 117/73 112/72 101/71 O2 Sat by Pulse 100 100 Oximetry 11/05/20 11/05/20 11/05/20 04:15 04:30 04:45 Temperature Pulse Rate 96 H 98 H 96 H Pulse Rate [ From Monitor] Respiratory 10 L 14 13 Rate Blood Pressure 103/72 114/75 115/78 O2 Sat by Pulse 100 100 Oximetry 11/05/20 11/05/20 11/05/20 04:50 05:00 05:15 Temperature Pulse Rate 99 H 97 H 97 H Pulse Rate [ From Monitor] Respiratory 10 L 12 Rate Blood Pressure 117/73 123/77 119/74 O2 Sat by Pulse 100 100 100 Oximetry 11/05/20 11/05/20 11/05/20 05:31 05:45 06:00 Temperature Pulse Rate 94 H 93 H 93 H Pulse Rate [ From Monitor] Respiratory 12 11 L 12 Rate Blood Pressure 104/62 106/61 112/70 O2 Sat by Pulse 100 100 100 Oximetry 11/05/20 11/05/20 07:45 08:00 Temperature 98.5 F Pulse Rate 107 H Pulse Rate [ From Monitor] Respiratory Rate Blood Pressure 96/69 O2 Sat by Pulse Oximetry - General Apperance Constitutional: comfortable, other (still intubated more alert interactive to some extent move 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 ) - EENT EENT: PERRL, mucous membranes moist - Respiratory Respiratory: chest non-tender, lungs clear, rhonchi - Cardiovascular Cardiovascular: other (AF) Extremities: no peripheral edema bilat, other (No bleeding is noted right leg today) - Gastrointestinal Gastrointestinal: other (abdomen distended with slight bowel sound) - Neurologic Cranial nerve examination: PERRL, EOMI Speech examination: other (intubated) Detailed motor examination: grossly full strength in, full strength in all althea, other (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 hand today improved) - Laboratory Findings CBC and BMP: 11/05/20 03:37 11/05/20 03:37 Abnormal Lab Findings: Abnormal Labs 10/23/20 10/23/20 10/23/20 13:32 18:23 18:23 WBC RBC Hgb Hct Seg Neuts % (Manual) Lymphocytes % (Manual) Seg Neutrophils # Man Monocytes # (Manual) PT INR APTT D-Dimer 4139.61 H Heparin Anti-Xa Level ABG pH POC ABG pCO2 POC ABG pO2 ABG Hemoglobin ABG Oxyhemoglobin ABG Sodium ABG Potassium ABG Chloride ABG Glucose Carboxyhemoglobin Sodium Potassium Chloride 109.1 H Carbon Dioxide BUN Creatinine Glucose POC Glucose Lactic Acid Calcium Lactate Dehydrogenase 334 H C-Reactive Protein 2.50 H NT-Pro-B Natriuret Pep 5806 H TSH Arterial Blood Glucose Arterial Blood Ionized Calcium Urine WBC (Auto) Crossmatch 10/23/20 10/23/20 10/26/20 18:23 18:23 05:34 WBC RBC Hgb Hct Seg Neuts % (Manual) Lymphocytes % (Manual) Seg Neutrophils # Man Monocytes # (Manual) PT INR APTT D-Dimer Heparin Anti-Xa Level ABG pH POC ABG pCO2 POC ABG pO2 ABG Hemoglobin ABG Oxyhemoglobin ABG Sodium ABG Potassium ABG Chloride ABG Glucose Carboxyhemoglobin Sodium Potassium Chloride Carbon Dioxide BUN 30 H Creatinine Glucose 120 H POC Glucose Lactic Acid Calcium Lactate Dehydrogenase C-Reactive Protein NT-Pro-B Natriuret Pep TSH 7.100 H 6.540 H Arterial Blood Glucose Arterial Blood Ionized Calcium Urine WBC (Auto) Crossmatch 10/27/20 10/28/20 11/02/20 08:55 05:25 07:17 WBC 15.8 H RBC Hgb Hct Seg Neuts % (Manual) Lymphocytes % (Manual) Seg Neutrophils # Man Monocytes # (Manual) PT INR APTT D-Dimer Heparin Anti-Xa Level ABG pH POC ABG pCO2 POC ABG pO2 ABG Hemoglobin ABG Oxyhemoglobin ABG Sodium ABG Potassium ABG Chloride ABG Glucose Carboxyhemoglobin Sodium Potassium Chloride Carbon Dioxide BUN 28 H 28 H Creatinine Glucose 124 H 110 H POC Glucose Lactic Acid Calcium 8.2 L Lactate Dehydrogenase C-Reactive Protein NT-Pro-B Natriuret Pep TSH Arterial Blood Glucose Arterial Blood Ionized Calcium Urine WBC (Auto) Crossmatch 11/02/20 11/02/20 11/02/20 07:17 15:00 15:06 WBC RBC Hgb 15.7 H Hct 47.5 H D Seg Neuts % (Manual) Lymphocytes % (Manual) Seg Neutrophils # Man Monocytes # (Manual) PT INR APTT D-Dimer Heparin Anti-Xa Level ABG pH POC ABG pCO2 POC ABG pO2 ABG Hemoglobin ABG Oxyhemoglobin ABG Sodium ABG Potassium ABG Chloride ABG Glucose Carboxyhemoglobin Sodium 136 L Potassium Chloride Carbon Dioxide BUN 33 H Creatinine Glucose 107 H POC Glucose Lactic Acid Calcium 7.9 L Lactate Dehydrogenase C-Reactive Protein NT-Pro-B Natriuret Pep TSH Arterial Blood Glucose Arterial Blood Ionized Calcium Urine WBC (Auto) Crossmatch See Detail 11/02/20 11/02/20 11/02/20 19:55 21:25 22:28 WBC 21.8 H RBC Hgb Hct Seg Neuts % (Manual) Lymphocytes % (Manual) Seg Neutrophils # Man Monocytes # (Manual) PT 16.2 H INR 1.30 H APTT 106.0 H* D-Dimer Heparin Anti-Xa Level 1.63 H ABG pH POC ABG pCO2 POC ABG pO2 ABG Hemoglobin ABG Oxyhemoglobin ABG Sodium ABG Potassium ABG Chloride ABG Glucose Carboxyhemoglobin Sodium Potassium Chloride Carbon Dioxide BUN Creatinine Glucose POC Glucose Lactic Acid Calcium Lactate Dehydrogenase C-Reactive Protein NT-Pro-B Natriuret Pep TSH Arterial Blood Glucose Arterial Blood Ionized Calcium Urine WBC (Auto) Crossmatch 11/03/20 11/03/20 11/03/20 05:47 13:20 13:20 WBC 29.0 H RBC Hgb 10.4 L Hct 31.2 L D Seg Neuts % (Manual) Lymphocytes % (Manual) Seg Neutrophils # Man Monocytes # (Manual) PT INR APTT D-Dimer Heparin Anti-Xa Level < 0.10 L ABG pH POC ABG pCO2 POC ABG pO2 ABG Hemoglobin ABG Oxyhemoglobin ABG Sodium ABG Potassium ABG Chloride ABG Glucose Carboxyhemoglobin Sodium 134 L Potassium 5.9 H D Chloride Carbon Dioxide 17 L D BUN 47 H Creatinine 2.2 H D Glucose 188 H POC Glucose Lactic Acid Calcium 7.6 L Lactate Dehydrogenase C-Reactive Protein NT-Pro-B Natriuret Pep TSH Arterial Blood Glucose Arterial Blood Ionized Calcium Urine WBC (Auto) Crossmatch 11/03/20 11/03/20 11/03/20 13:20 16:11 20:01 WBC RBC Hgb Hct Seg Neuts % (Manual) Lymphocytes % (Manual) Seg Neutrophils # Man Monocytes # (Manual) PT INR APTT D-Dimer Heparin Anti-Xa Level ABG pH 7.289 L POC ABG pCO2 31.8 L POC ABG pO2 156.7 H 119.6 H ABG Hemoglobin 10.7 L 9.7 L ABG Oxyhemoglobin 98.2 H ABG Sodium 127.7 L 129.5 L ABG Potassium 5.8 H 5.9 H ABG Chloride ABG Glucose 190 H 174 H Carboxyhemoglobin 0.3 L 0.1 L Sodium Potassium Chloride Carbon Dioxide BUN Creatinine Glucose POC Glucose Lactic Acid 7.40 H* Calcium Lactate Dehydrogenase C-Reactive Protein NT-Pro-B Natriuret Pep TSH Arterial Blood Glucose 190 H 174 H Arterial Blood Ionized Calcium 4.3 L 4.3 L Urine WBC (Auto) Crossmatch 11/03/20 11/04/20 11/04/20 21:14 04:00 04:00 WBC 32.8 H RBC Hgb 11.7 L Hct 35.0 L Seg Neuts % (Manual) 82.0 H Lymphocytes % (Manual) 10.0 L Seg Neutrophils # Man 26.9 H Monocytes # (Manual) 2.3 H PT INR APTT D-Dimer Heparin Anti-Xa Level 0.73 H ABG pH POC ABG pCO2 POC ABG pO2 ABG Hemoglobin ABG Oxyhemoglobin ABG Sodium ABG Potassium ABG Chloride ABG Glucose Carboxyhemoglobin Sodium 133 L Potassium 5.7 H Chloride Carbon Dioxide 20 L BUN 57 H Creatinine 2.3 H Glucose 129 H POC Glucose Lactic Acid Calcium 7.2 L Lactate Dehydrogenase C-Reactive Protein NT-Pro-B Natriuret Pep TSH Arterial Blood Glucose Arterial Blood Ionized Calcium Urine WBC (Auto) Crossmatch 11/04/20 11/04/20 11/04/20 07:57 11:00 11:55 WBC RBC Hgb Hct Seg Neuts % (Manual) Lymphocytes % (Manual) Seg Neutrophils # Man Monocytes # (Manual) PT INR APTT D-Dimer Heparin Anti-Xa Level ABG pH POC ABG pCO2 POC ABG pO2 132.7 H ABG Hemoglobin 11.5 L ABG Oxyhemoglobin ABG Sodium 130.6 L ABG Potassium 5.3 H ABG Chloride ABG Glucose 145 H Carboxyhemoglobin 0.2 L Sodium Potassium Chloride Carbon Dioxide BUN Creatinine Glucose POC Glucose 110 H Lactic Acid Calcium Lactate Dehydrogenase C-Reactive Protein NT-Pro-B Natriuret Pep TSH Arterial Blood Glucose 145 H Arterial Blood Ionized Calcium 4.4 L Urine WBC (Auto) 19.0 H Crossmatch 11/04/20 11/04/20 11/04/20 13:01 13:01 17:40 WBC RBC Hgb Hct Seg Neuts % (Manual) Lymphocytes % (Manual) Seg Neutrophils # Man Monocytes # (Manual) PT INR APTT D-Dimer Heparin Anti-Xa Level 0.26 L ABG pH POC ABG pCO2 POC ABG pO2 ABG Hemoglobin ABG Oxyhemoglobin ABG Sodium ABG Potassium ABG Chloride ABG Glucose Carboxyhemoglobin Sodium Potassium Chloride Carbon Dioxide BUN Creatinine Glucose POC Glucose 135 H Lactic Acid Calcium Lactate Dehydrogenase C-Reactive Protein 8.30 H NT-Pro-B Natriuret Pep TSH Arterial Blood Glucose Arterial Blood Ionized Calcium Urine WBC (Auto) Crossmatch 11/04/20 11/04/20 11/05/20 19:55 23:20 00:53 WBC RBC Hgb 9.7 L 9.0 L Hct 28.3 L D 26.0 L Seg Neuts % (Manual) Lymphocytes % (Manual) Seg Neutrophils # Man Monocytes # (Manual) PT INR APTT D-Dimer Heparin Anti-Xa Level ABG pH POC ABG pCO2 POC ABG pO2 ABG Hemoglobin ABG Oxyhemoglobin ABG Sodium ABG Potassium ABG Chloride ABG Glucose Carboxyhemoglobin Sodium Potassium Chloride Carbon Dioxide BUN Creatinine Glucose POC Glucose 143 H Lactic Acid Calcium Lactate Dehydrogenase C-Reactive Protein NT-Pro-B Natriuret Pep TSH Arterial Blood Glucose Arterial Blood Ionized Calcium Urine WBC (Auto) Crossmatch 11/05/20 11/05/20 11/05/20 02:16 03:16 03:37 WBC 33.5 H RBC 3.01 L Hgb 8.8 L Hct 25.6 L Seg Neuts % (Manual) 93.5 H Lymphocytes % (Manual) 3.5 L Seg Neutrophils # Man 31.3 H Monocytes # (Manual) 1.0 H PT INR APTT D-Dimer Heparin Anti-Xa Level 0.99 H ABG pH POC ABG pCO2 POC ABG pO2 131.3 H ABG Hemoglobin 9.2 L ABG Oxyhemoglobin ABG Sodium 131.6 L ABG Potassium ABG Chloride 110.0 H ABG Glucose 168 H Carboxyhemoglobin 0.3 L Sodium Potassium Chloride Carbon Dioxide BUN Creatinine Glucose POC Glucose Lactic Acid Calcium Lactate Dehydrogenase C-Reactive Protein NT-Pro-B Natriuret Pep TSH Arterial Blood Glucose 168 H Arterial Blood Ionized Calcium 4.4 L Urine WBC (Auto) Crossmatch 11/05/20 11/05/20 03:37 05:19 WBC RBC Hgb Hct Seg Neuts % (Manual) Lymphocytes % (Manual) Seg Neutrophils # Man Monocytes # (Manual) PT INR APTT D-Dimer Heparin Anti-Xa Level ABG pH POC ABG pCO2 POC ABG pO2 ABG Hemoglobin ABG Oxyhemoglobin ABG Sodium ABG Potassium ABG Chloride ABG Glucose Carboxyhemoglobin Sodium Potassium Chloride 109.5 H Carbon Dioxide BUN 55 H Creatinine 2.1 H Glucose 157 H POC Glucose 142 H Lactic Acid Calcium 7.0 L Lactate Dehydrogenase C-Reactive Protein NT-Pro-B Natriuret Pep TSH Arterial Blood Glucose Arterial Blood Ionized Calcium Urine WBC (Auto) Crossmatch
--- NOTE | 2020-11-05 10:23 | Progress Note ---
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 Acute on chronic systolic heart failure exacerbation. Acute hypoxemic respiratory failure. 10/24/2020 Acute CVA with right hemiparesis PT and OT 10/25/2020 Acute CVA with right hemiplegia Rehab consult requested Ejection fraction is 35 to 40% 10/26/2020 patient with acute CVA and right-sided hemiparesis PT evaluated the patient and recommended acute rehab Case management processing the request Possible discharge in 1 to 2 days if stable 10/27/2020; patient is clinically stable, awaiting rehab/SNF placement DC planning per Case management. 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 No new complain. Clinically stable Patient is going for KELLY today. DC planning to rehab/SNF when cleared by neurology. DC planning per case management 10/29/20 patient is doing slightly better. No new complain. Clinically stable, continue physical therapy occupational therapy. Patient is going for KELLY on Sunday. DC planning to rehab/SNF after KELLY on Sunday. DC planning per case management 10/30/20 patient is sitting in chair. No new complain. Clinically stable, continue physical therapy occupational therapy. Patient is going for KELLY on Sunday. Awaiting DC planning to rehab/SNF after KELLY on Sunday. 10/31/20 patient is seen and examined. No new complain. Clinically stable, continue physical therapy occupational therapy. Patient is going for KELLY on Sunday. Awaiting DC planning to rehab/SNF after KELLY on Sunday. 11/01/20 Patient is seen and examined Patient with acute CVA and right-sided hemiparesis Patient is evaluated by PT and recommended acute rehab Patient is going for KELLY today Patient is waiting for DC planning to rehab/SNF after KELLY. upkeep worker is working on discharge planning Patient has chosen [facility] and awaiting authorization. 11/02/2020. KELLY revealed left atrial appendage thrombus. Mildly dilated left ventricle with mild left ventricular hypertrophy with moderate global left ventricular hypokinesis with EF of 40 to 45%. Anticoagulation per cardiology recommendations. Physical therapy recommendations for acute rehab. 11/03/2020. Patient appears to have worsening aphasia and worsening right-sided weakness today per neurology. MRI brain stat. Leukocytosis likely leukemoid reaction from compartment syndrome. Patient is s/p right lower extremity thombectomy with 4 compartment fasciotomy yesterday. Bleeding from incisions over night. Consider ID consultation. Start empiric antibiotics. 11/04/2020. Patient decompensated yesterday evening with hypotension and worsening mental status. Patient was started on vasopressors and intubated. Patient is currently intubated and on fentanyl for sedation. Patient with worsening leukocytosis. Lactic acidosis likely secondary to compartment syndrome. Patient is s/p right lower extremity thombectomy with 4 compartment fasciotomy on 11/02/2020. Levaquin started empirically yesterday. ID consultation today. Patient also with worsening creatinine secondary to acute kidney injury. 11/05/2020. Patient attempted to pull out his ETT while I was examining him. Continue restraints for safety. Patient did manage to pull out his Winkler catheter and now has hematuria. We will irrigate the bladder and monitor closely patient is on anticoagulation with IV heparin. Continue Levophed drip to maintain MAP >65. Patient currently with mechanical ventilation AC mode rate of 12, tidal volume 500, FiO2 30% and a PEEP of 6. Continue fentanyl for sedation. Consult hematology hypercoagulable state given the arterial and venous thrombi. The high probability of a clinically significant, sudden or life threatening deterioration of the [cardiac, respiratory and hemodynamic] system(s) required my full and direct attention, intervention and personal management. The aggregate critical care time was [33] minutes. This time is in addition to time spent performing reported procedures but includes the following: [x] Data Review and interpretation [x] Patient assessment and monitoring of vital signs [x] Documentation [x] Medication orders and management History Interval history: Patient decompensated yesterday evening with hypotension and worsening mental status. Patient was started on vasopressors and intubated. Patient is cur rently intubated and on fentanyl for sedation. Hospitalist Physical - Constitutional Vitals: Temp Pulse Resp BP Pulse Ox 98.5 F 107 H 12 96/69 100 11/05/20 08:00 11/05/20 07:45 11/05/20 06:00 11/05/20 07:45 11/05/20 06:00 General appearance: Present: other (Intubated) - EENT Eyes: Present: PERRL, EOM intact ENT: hearing intact, clear oral mucosa, dentition normal - Neck Neck: Present: supple, normal ROM - Respiratory Respiratory effort: normal Respiratory: bilateral: CTA - Cardiovascular Rhythm: regular Heart Sounds: Present: S1 & S2. Absent: gallop, rub - Extremities Extremities: no ischemia, No edema, Full ROM - Abdominal General gastrointestinal: soft, non-tender, non-distended, normal bowel sounds - Integumentary Integumentary: Present: clear, warm, dry - Neurologic Neurologic: CNII-XII intact, moves all extremities HEART Score - HEART Score Troponin: Troponin T 0.026 ng/mL (0.00-0.029) 10/23/20 16:39 Results - Labs CBC & Chem 7: 11/05/20 03:37 11/05/20 03:37 Labs: Laboratory Last Values WBC 33.5 K/mm3 (4.5-11.0) H 11/05/20 03:37 RBC 3.01 M/mm3 (3.65-5.03) L 11/05/20 03:37 Hgb 8.8 gm/dl (11.8-15.2) L 11/05/20 03:37 Hct 25.6 % (35.5-45.6) L 11/05/20 03:37 MCV 85 fl (84-94) 11/05/20 03:37 MCH 29 pg (28-32) 11/05/20 03:37 MCHC 34 % (32-34) 11/05/20 03:37 RDW 14.6 % (13.2-15.2) 11/05/20 03:37 Plt Count 153 K/mm3 (140-440) 11/05/20 03:37 Lymph % (Auto) 27.8 % (13.4-35.0) 10/23/20 13:32 Smyth % (Auto) 6.0 % (0.0-7.3) 10/23/20 13:32 Eos % (Auto) 1.6 % (0.0-4.3) 10/23/20 13:32 Baso % (Auto) 0.7 % (0.0-1.8) 10/23/20 13:32 Lymph # (Auto) 1.5 K/mm3 (1.2-5.4) 10/23/20 13:32 Smyth # (Auto) 0.3 K/mm3 (0.0-0.8) 10/23/20 13:32 Eos # (Auto) 0.1 K/mm3 (0.0-0.4) 10/23/20 13:32 Baso # (Auto) 0.0 K/mm3 (0.0-0.1) 10/23/20 13:32 Add Manual Diff Complete 11/05/20 03:37 Total Counted 200 11/05/20 03:37 Seg Neutrophils % Business Operations Director 11/05/20 03:37 Seg Neuts % (Manual) 93.5 % (40.0-70.0) H 11/05/20 03:37 Lymphocytes % (Manual) 3.5 % (13.4-35.0) L 11/05/20 03:37 Monocytes % (Manual) 3.0 % (0.0-7.3) 11/05/20 03:37 Metamyelocytes % 1.0 % 11/04/20 04:00 Nucleated RBC % Not Reportable 11/05/20 03:37 Seg Neutrophils # 3.4 K/mm3 (1.8-7.7) 10/23/20 13:32 Seg Neutrophils # Man 31.3 K/mm3 (1.8-7.7) H 11/05/20 03:37 Band Neutrophils # 0.0 K/mm3 11/05/20 03:37 Lymphocytes # (Manual) 1.2 K/mm3 (1.2-5.4) 11/05/20 03:37 Abs React Lymphs (Man) 0.0 K/mm3 11/05/20 03:37 Monocytes # (Manual) 1.0 K/mm3 (0.0-0.8) H 11/05/20 03:37 Eosinophils # (Manual) 0.0 K/mm3 (0.0-0.4) 11/05/20 03:37 Basophils # (Manual) 0.0 K/mm3 (0.0-0.1) 11/05/20 03:37 Metamyelocytes # 0.0 K/mm3 11/05/20 03:37 Myelocytes # 0.0 K/mm3 11/05/20 03:37 Promyelocytes # 0.0 K/mm3 11/05/20 03:37 Blast Cells # 0.0 K/mm3 11/05/20 03:37 WBC Morphology Not Reportable 11/05/20 03:37 Hypersegmented Neuts Not Reportable 11/05/20 03:37 Hyposegmented Neuts Not Reportable 11/05/20 03:37 Hypogranular Neuts Not Reportable 11/05/20 03:37 Smudge Cells Not Reportable 11/05/20 03:37 Toxic Granulation 1+ 11/05/20 03:37 Toxic Vacuolation Not Reportable 11/05/20 03:37 Dohle Bodies Not Reportable 11/05/20 03:37 Pelger-Huet Anomaly Not Reportable 11/05/20 03:37 Demario Rods Not Reportable 11/05/20 03:37 Platelet Estimate Consistent w auto 11/05/20 03:37 Clumped Platelets Not Reportable 11/05/20 03:37 Plt Clumps, EDTA Not Reportable 11/05/20 03:37 Large Platelets Not Reportable 11/05/20 03:37 Giant Platelets Not Reportable 11/05/20 03:37 Platelet Satelliting Not Reportable 11/05/20 03:37 Plt Morphology Comment Not Reportable 11/05/20 03:37 RBC Morphology Not Reportable 11/05/20 03:37 Dimorphic RBCs Not Reportable 11/05/20 03:37 Polychromasia Not Reportable 11/05/20 03:37 Hypochromasia Not Reportable 11/05/20 03:37 Poikilocytosis Not Reportable 11/05/20 03:37 Anisocytosis 1+ 11/05/20 03:37 Microcytosis Not Reportable 11/05/20 03:37 Macrocytosis Not Reportable 11/05/20 03:37 Spherocytes Not Reportable 11/05/20 03:37 Pappenheimer Bodies Not Reportable 11/05/20 03:37 Sickle Cells Not Reportable 11/05/20 03:37 Target Cells Not Reportable 11/05/20 03:37 Tear Drop Cells Not Reportable 11/05/20 03:37 Ovalocytes Not Reportable 11/05/20 03:37 Helmet Cells Not Reportable 11/05/20 03:37 Oliva-Mazon Bodies Not Reportable 11/05/20 03:37 Conway Rings Not Reportable 11/05/20 03:37 Caryn Cells Not Reportable 11/05/20 03:37 Bite Cells Not Reportable 11/05/20 03:37 Crenated Cell Not Reportable 11/05/20 03:37 Elliptocytes Not Reportable 11/05/20 03:37 Acanthocytes (Spur) Not Reportable 11/05/20 03:37 Rouleaux Not Reportable 11/05/20 03:37 Hemoglobin C Crystals Not Reportable 11/05/20 03:37 Schistocytes Not Reportable 11/05/20 03:37 Malaria parasites Not Reportable 11/05/20 03:37 Lico Bodies Not Reportable 11/05/20 03:37 Hem Pathologist Commnt No 11/05/20 03:37 PT 16.2 Sec. (12.2-14.9) H 11/02/20 19:55 INR 1.30 (0.87-1.13) H 11/02/20 19:55 APTT 106.0 Sec. (24.2-36.6) H* 11/02/20 19:55 D-Dimer 4139.61 ng/mlDDU (0-234) H 10/23/20 18:23 Heparin Anti-Xa Level 0.99 U.I./ml (0.3-0.7) H 11/05/20 02:16 ABG pH 7.402 (7.320-7.450) 11/05/20 03:16 POC ABG pCO2 34.3 mmHg (32.0-48.0) 11/05/20 03:16 POC ABG pO2 131.3 mmHg (83-108) H 11/05/20 03:16 POC ABG HCO3 20.9 11/05/20 03:16 ABG O2 Saturation 98.5 (0-100) 11/05/20 03:16 POC ABG Base Excess -3.4 11/05/20 03:16 ABG Hemoglobin 9.2 (12.0-17.5) L 11/05/20 03:16 ABG Oxyhemoglobin 97.9 (94-98) 11/05/20 03:16 ABG Methemoglobin 0.3 (0.0-1.5) 11/05/20 03:16 ABG Sodium 131.6 mmol/L (136.0-145.0) L 11/05/20 03:16 ABG Potassium 4.4 mmol/L (3.40-4.50) 11/05/20 03:16 ABG Chloride 110.0 mmol/L (98-107) H 11/05/20 03:16 ABG Glucose 168 mg/dL (65-95) H 11/05/20 03:16 Carboxyhemoglobin 0.3 (0.5-1.5) L 11/05/20 03:16 FiO2 % 30.0 11/05/20 03:16 Sodium 140 mmol/L (137-145) D 11/05/20 03:37 Potassium 4.6 mmol/L (3.6-5.0) 11/05/20 03:37 Chloride 109.5 mmol/L (98-107) H 11/05/20 03:37 Carbon Dioxide 25 mmol/L (22-30) 11/05/20 03:37 Anion Gap 10 mmol/L 11/05/20 03:37 BUN 55 mg/dL (9-20) H 11/05/20 03:37 Creatinine 2.1 mg/dL (0.8-1.3) H 11/05/20 03:37 Estimated GFR 38 ml/min 11/05/20 03:37 BUN/Creatinine Ratio 26 % 11/05/20 03:37 Glucose 157 mg/dL (75-100) H 11/05/20 03:37 POC Glucose 142 mg/dL (70-105) H 11/05/20 05:19 Lactic Acid 1.30 mmol/L (0.7-2.0) 11/04/20 13:01 Calcium 7.0 mg/dL (8.4-10.2) L 11/05/20 03:37 Magnesium 2.20 mg/dL (1.7-2.3) 10/23/20 20:33 Ferritin 238.5 ng/mL (30.0-300.0) 10/23/20 18:23 Total Bilirubin 0.80 mg/dL (0.1-1.2) 10/23/20 13:32 AST 13 units/L (5-40) 10/23/20 13:32 ALT 13 units/L (7-56) 10/23/20 13:32 Alkaline Phosphatase 67 units/L (35-129) 10/23/20 13:32 Lactate Dehydrogenase 334 units/L (91-180) H 10/23/20 18:23 Troponin T 0.026 ng/mL (0.00-0.029) 10/23/20 16:39 C-Reactive Protein 8.30 mg/dL (0.00-1.30) H 11/04/20 13:01 NT-Pro-B Natriuret Pep 5806 pg/mL (0-900) H 10/23/20 13:32 Total Protein 7.3 g/dL (6.3-8.2) 10/23/20 13:32 Albumin 4.1 g/dL (3.9-5) 10/23/20 13:32 Albumin/Globulin Ratio 1.3 % 10/23/20 13:32 Triglycerides 60 mg/dL (2-149) 10/24/20 09:29 Cholesterol 139 mg/dL (50-199) 10/24/20 09:29 LDL Cholesterol Direct 87 mg/dL (50-130) 10/24/20 09:29 HDL Cholesterol 46 mg/dL (40-59) 10/24/20 09:29 Cholesterol/HDL Ratio 3.02 % 10/24/20 09:29 Procalcitonin 0.99 ng/mL (<0.15) 11/03/20 21:14 TSH 6.540 mlU/mL (0.270-4.200) H 10/23/20 18:23 TSH 7.100 mlU/mL (0.270-4.200) H 10/23/20 18:23 Free T4 1.33 ng/dL (0.76-1.46) 10/23/20 18:23 Arterial Blood Glucose 168 mg/dL (65-95) H 11/05/20 03:16 Arterial Blood Ionized Calcium 4.4 mg/dL (4.6-5.3) L 11/05/20 03:16 Urine Color Yellow (Yellow) 11/04/20 11:00 Urine Turbidity Hazy (Clear) 11/04/20 11:00 Urine pH 5.0 (5.0-7.0) 11/04/20 11:00 Ur Specific [place] 1.017 (1.003-1.030) 11/04/20 11:00 Urine Protein 30 mg/dl mg/dL (Negative) 11/04/20 11:00 Urine Glucose (UA) 50 mg/dL (Negative) 11/04/20 11:00 Urine Ketones Neg mg/dL (Negative) 11/04/20 11:00 Urine Blood Neg (Negative) 11/04/20 11:00 Urine Nitrite Neg (Negative) 11/04/20 11:00 Urine Bilirubin Neg (Negative) 11/04/20 11:00 Urine Urobilinogen < 2.0 mg/dL (<2.0) 11/04/20 11:00 Ur Leukocyte Esterase Tr (Negative) 11/04/20 11:00 Urine WBC (Auto) 19.0 /HPF (0.0-6.0) H 11/04/20 11:00 Urine RBC (Auto) 3.0 /HPF (0.0-6.0) 11/04/20 11:00 U Epithel Cells (Auto) < 1.0 /HPF (0-13.0) 11/04/20 11:00 Urine Mucus Few /HPF 11/04/20 11:00 Urine Eosinophils None seen (None Seen) 11/04/20 12:50 Urine Creatinine < 4.2 mg/dL (0.1-20.0) 11/04/20 12:50 Urine Sodium 10 mmol/L 11/04/20 12:50 Coronavirus (PCR) Negative (Negative) 10/24/20 09:57 Blood Type O POSITIVE 11/02/20 15:00 Antibody Screen Negative 11/02/20 15:00 Crossmatch See Detail 11/02/20 15:00 Microbiology: Microbiology 11/04/20 Unknown Tracheal Aspirate Sputum Culture - Preliminary 11/03/20 17:25 Tracheal Aspirate Sputum Culture - Final 11/04/20 11:00 Urine,Clean Catch Urine Culture - Preliminary NO GROWTH AFTER 24 HOURS 11/04/20 13:01 Peripheral/Venous Blood Culture - Preliminary Culture in Progress 11/04/20 13:01 Peripheral/Venous Blood Culture - Preliminary Culture in Progress Winkler/IV: Voiding Method Indwelling Catheter Active Medications - Current Medications Current Medications: Generic Name Dose Route Start Last Admin Trade Name Freq PRN Reason Stop Dose Admin Acetaminophen 650 mg 10/23/20 20:00 Acetaminophen 325 Mg Tab PO Q4H PRN Pain, Mild (1-3) Lipase/Protease/Amylase 1 each 11/04/20 13:25 Lipase 10,500/Protease 25,000/Amylase 43,750 (Units) Dr Cap FEEDTUBE PRN PRN For Clogged Feeding Tube Ascorbic Acid 500 mg 10/23/20 22:00 11/04/20 21:24 Ascorbic Acid 500 Mg Tab PO 500 mg BID ALEX Administration Aspirin 325 mg 10/24/20 10:00 11/04/20 10:11 Aspirin 325 Mg Tab PO 325 mg QDAY ALEX Administration Atorvastatin Calcium 40 mg 10/23/20 22:00 11/04/20 21:25 Atorvastatin 40 Mg Tab PO 40 mg QHS ALEX Administration Bisacodyl 10 mg 10/23/20 20:00 Bisacodyl 10 Mg Rect Supp [place] QDAY PRN Constipation Cholecalciferol 1,000 unit 10/24/20 10:00 11/04/20 10:11 Cholecalciferol (Vit D3) 1000 Unit (25 Mcg) Tab PO 1,000 unit QDAY ALEX Administration Docusate Sodium 100 mg 11/02/20 12:00 11/04/20 21:24 Docusate Sodium 100 Mg Cap PO 100 mg BID ALEX Administration Famotidine 20 mg 11/04/20 10:00 11/04/20 10:11 Famotidine 20 Mg/2 Ml Inj IV 20 mg DAILY ALEX Administration Fentanyl 50 mcg 11/03/20 16:46 Fentanyl 100 Mcg/2 Ml Inj IV Q10MIN PRN ANALGESIA Heparin Sodium (Porcine) 3,900 unit 11/02/20 13:30 Heparin 10,000 Units/10 Ml Vial 40 unit/kg (3900 unit) IV Q6H PRN Anti-Xa Assay < 0.1 units/ml Hydrophilic Ointment 1 applic 11/03/20 16:46 Lip Therapy Vaseline TP Q2HR PRN Dry Lips Heparin Sodium/Sodium Chloride 25,000 unit in 500 mls @ 29 mls/hr 11/02/20 13:00 11/05/20 04:50 Heparin/ 0.45% Nacl-25,000 Unit/500 Ml IV 650 units/hr TITR ALEX 13 mls/hr Titration Protocol 1,450 UNITS/HR Sodium Chloride 500 mls @ 125 mls/hr 11/03/20 16:00 11/04/20 05:06 Nacl 0.9% 500 Ml IV 125 mls/hr DIRECT ALEX Administration Fentanyl Citrate 2,000 mcg in 100 mls @ 4.86 mls/hr 11/03/20 17:24 11/05/20 01:44 Fentanyl Drip Premix IV 1 mcg/kg/hr TITR ALEX 4.86 mls/hr Administration Protocol 1 MCG/KG/HR NORepinephrine/NS 8 MG-250 ML 8 mg in 250 mls @ 3.75 mls/hr 11/03/20 18:00 11/05/20 05:00 Norepinephrine/Ns 8 Mg-250 Ml (Double Conc) IV 8 mcg/min TITRATE ALEX 15 mls/hr Titration Protocol 2 MCG/MIN Cefepime HCl 2 gm in 100 mls @ 200 mls/hr 11/04/20 11:00 11/04/20 22:26 Cefepime/Ns 2 Gm/100 Ml IV 200 mls/hr Q12H ALEX Administration Protocol Sodium Chloride 1,000 mls @ 125 mls/hr 11/04/20 17:30 11/05/20 01:44 Nacl 0.9% 1000 Ml IV 11/06/20 01:29 125 mls/hr DIRECT ALEX Administration Magnesium Hydroxide 30 ml 10/23/20 20:00 11/05/20 05:02 Magnesium Hydroxide (Mom) Oral Liqd Udc PO 30 ml Q4H PRN Administration Constipation Metoclopramide HCl 10 mg 10/23/20 20:00 Metoclopramide 10 Mg Tab PO Q6H PRN Nausea And Vomiting Metoprolol Tartrate 6.25 mg 10/27/20 10:00 11/04/20 21:24 Metoprolol Tartrate 25 Mg Tab PO 6.25 mg BID ALEX Administration Multi-Ingred Cream/Lotion/Oil/Oint 1 applic 11/03/20 16:46 Mineral Oil/Petrolatum, White Ophth Oint 3.5 Gm OU Q4HR PRN Dry Eye(s) Ondansetron HCl 4 mg 10/23/20 20:00 Ondansetron 4 Mg/2 Ml Inj IV Q8H PRN Nausea And Vomiting Oxycodone/Acetaminophen 1 tab 11/03/20 09:27 Oxycodone /Acetaminophen 5-325mg Tab PO Q6H PRN Pain, Moderate (4-6) Promethazine HCl 25 mg 10/23/20 20:00 Promethazine 25 Mg Rect Supp [place] Q6H PRN Nausea And Vomiting Simple Syrup 15 ml 11/04/20 13:25 Simple Syrup 15 Ml FEEDTUBE PRN PRN Hypoglycemia Simple Syrup 30 ml 11/04/20 13:25 Simple Syrup 15 Ml FEEDTUBE PRN PRN Hypoglycemia Sodium Bicarbonate 325 mg 11/04/20 13:25 Sodium Bicarbonate 325 Mg Tab FEEDTUBE PRN PRN For Clogged Feeding Tube Sodium Chloride 10 ml 10/23/20 20:00 11/04/20 21:25 Sodium Chloride 0.9% 10 Ml Flush Syringe IV 10 ml PRN PRN Administration LINE FLUSH Zinc Sulfate 220 mg 10/23/20 22:00 11/04/20 21:24 Zinc Sulfate 220 Mg Cap PO 220 mg BID ALEX Administration Nutrition/Malnutrition Assess - Dietary Evaluation Nutrition/Malnutrition Findings: Nutrition Notes Start: 10/24/20 11:33 Freq: Status: Active Protocol: Document 11/04/20 13:14 AL (Rec: 11/04/20 13:25 AL [id number]) Co-Sign 11/04/20 13:14 LP Nutrition Notes Need for Assessment generated from: MD Order Initial or Follow up Reassessment Current Diagnosis Acute Kidney Injury, Hypertension,Heart Failure, Respiratory Failure,Stroke Other Pertinent Diagnosis pneu Current Diet Cardiac Diet Labs/Tests K 5.7 BUN 57 Cr 2.3 Pertinent Medications Norepinephine 4.86 ml/hr NS at 125 ml/h Colace Solumedrol Height 5 ft 11 in Weight 97.2 kg [place] Body Weight (kg) 78.18 BMI 29.9 Intake Prior to Admission Poor Weight Status Overweight Subjective/Other Information MD order for write/manage TF. Pt has high K lab values and has an STACEY. Pt. s/p open thrombectomy of right leg and fasciotomy. Will calculate Nepro TF. Burn Absent Trauma Absent Current % PO Negligible Minimum of two criteria No physical signs of malnutrition #2 Nutrition Diagnosis Inadequate oral intake Etiology Respiratory failure As Evidenced by Signs and Symptoms Pt intubated and unable to consume PO Is patient on ventilator? Yes Is Patient Ambulatory and/or Out of Bed No REE-([facility]-confined to bed) 0278.500 Additional Notes Protein: 116-195 g (1.2-2.0 g/ kg ABW) Fluid: 1 ml/kcal Nutrition Intervention Change Diet Order: Start TF Nutrition Support: Start Nepro 1.8 at 25 ml/hr and increase by 10 ml q8h until 45 ml (goal rate) is reached. Flush 150 ml q4h Kcal 1,944 Protein (gm) 88 Fluid (mL) 786 Goal #1 Meet at least 75% of energy and protein needs via TF Goal #2 TF tolerance. Anticipated Discharge Needs: Unable to determine at the moment. Follow-Up By: 11/05/20 Additional Comments FU for new TF, vent status, and renal labs.
[2020-11-05] MEDS: FAMOTIDINE 20 MG/2 ML INJ IV SCH (10:43)
[2020-11-05] MEDS: ZINC SULFATE 220 MG CAP PO SCH ×2 (10:44→21:36)
[2020-11-05] MEDS: ASCORBIC ACID 500 MG TAB PO SCH ×2 (10:44→21:36)
[2020-11-05] MEDS: CHOLECALCIFEROL (VIT D3) 1000 UNIT (25 mcg) TAB PO SCH (10:44)
[2020-11-05] MEDS: ASPIRIN 325 MG TAB PO SCH (10:44)
[2020-11-05] MEDS: METOPROLOL TARTRATE 25 MG TAB PO SCH ×2 (10:46→21:35)
[2020-11-05] MEDS: DOCUSATE SODIUM 100 MG CAP PO SCH ×2 (10:47→21:35)
[2020-11-05] MEDS: CEFEPIME/NS 2 GM/100 ML 2 GM/100 ML BAG IV SCH (10:58)
--- NOTE | 2020-11-05 11:13 | Progress Note ---
Assessment and Plan #Acute CVA * MRI reviewed (10/23/2020): Acute infarction in the left middle cerebral artery distribution. * Telemetry reviewed: Sinus rhythm 62. No events * KELLY reviewed (11/01/2020): Likely stock of thrombus in the left atrial appendage of heterogeneous quality. No evidence of valvulopathy. Mildly dilated left ventricle with mild LVH with moderate global LV hypokinesis. LVEF 40 to 45%. No pericardial effusion. Mild plaquing. Normal agitated saline study without evidence of intracardiac or intrapulmonary communication. * (11/03/2020) at time of interview patient had marked change of mental status patient was confused and aphasic. Neurology was consulted. Stat MRI brain showed new acute CVA. * Patient subsequently went into acute respiratory failure and is currently intubated and unresponsive. * Continue heparin gtt with standard titration protocol as tolerated by bleeding status post fasciotomy. #Ischemic limb in setting of arterial thrombus and extensive DVT * (11/02/2020) arterial and venous ultrasound of right leg revealed extensive occlusive thrombus and ischemic limb. Initiated on heparin gtt. patient underwent emergent open revascularization with 4 compartment fasciotomy by vascular surgeon Dr. Ervin Menendez. Patient recovering in the CCU continues to be on heparin gtt. * (11/05/2020) per CCU nurse: Patient removed indwelling catheter Winkler with inflated bulb causing significant bleeding via urethra requiring heparin to be discontinued. Heparin is recommended in setting of acute CVA & atrial appendage thrombus as tolerated in setting of trauma. #Cardiomyopathy * Echocardiogram reviewed as above EF is 35 to 40%. Patient is on appropriate meds including beta-chang, NAEL inhibitor, statin, ASA. * Referral for outpatient cardiac rehab assessment is requested. * Ischemic evaluation may be pursued in the outpatient setting pending medical stabilization. #Left bundle branch block * Onset date is unknown. 12-lead reviewed no ST segment elevation. Troponins are negative x2. AMI ruled out. #Elevated D-dimer * Further work-up per primary team #Hypothyroidism * TSH is noted to be elevated. Management per primary team #Covid PUI * Covid PCR is negative #DVT prophylaxis * Heparin gtt Patient is currently stable cardiac status. Continue on heparin gtt as tolerated by bleeding. will follow This patient was seen in conjunction with Dr Nehal Taylor who agrees with this assessment and plan of care. - Patient Problems (1) LBBB (left bundle branch block) Current Visit: Yes Status: Acute (2) Acute CVA (cerebrovascular accident) Current Visit: Yes Status: Acute (3) Cardiomyopathy Current Visit: Yes Status: Acute (4) Suspected 2019 novel coronavirus infection Current Visit: Yes Status: Acute (5) Hypothyroidism Current Visit: Yes Status: Acute (6) atrial appendage thrombus Current Visit: Yes Status: Acute Subjective Date of service: 11/05/20 Principal diagnosis: Acute CVA, Atrial Appendage Thrombus Interval history: Patient resting in bed. Currently intubated and unresponsive. Telemetry reviewed: Sinus rhythm 83 with frequent PACs. No events. Objective Last Vital Signs Temp 98.5 F 11/05/20 08:00 Pulse 83 11/05/20 11:01 Resp 12 11/05/20 06:00 BP 93/57 11/05/20 11:01 Pulse Ox 100 11/05/20 11:01 - Physical Examination General: No Apparent Distress HEENT: Positive: Normocephaly, Mucus Membranes Moist Neck: Positive: neck supple, trachea midline, thyromegaly. Negative: JVD/HJR Cardiac: Positive: Reg Rate and Rhythm, S1/S2 Lungs: Positive: Ventilated Respirations Neuro: Positive: Other (Altered mental status) Abdomen: Positive: Unremarkable. Negative: Distended Skin: Positive: Other (Status post fasciotomy to right lower limb). Negative: Rash Incision: Cardiac Cath Site Musculoskeletal: No Fluid Collection Extremities: Present: upper extr. pulses, lower extr. pulses, edema, Other (s/p RLE open thrombectomy with four-quadrant fasciotomy) - Labs and Meds Coagulation 11/02/20 Range/Units 19:55 PT 16.2 H (12.2-14.9) Sec. INR 1.30 H (0.87-1.13) APTT 106.0 H* (24.2-36.6) Sec. CBC 11/04/20 11/05/20 11/05/20 Range/Units 19:55 00:53 03:37 WBC 33.5 H (4.5-11.0) K/mm3 RBC 3.01 L (3.65-5.03) M/mm3 Hgb 9.7 L 9.0 L 8.8 L (11.8-15.2) gm/dl Hct 28.3 L D 26.0 L 25.6 L (35.5-45.6) % Plt Count 153 (140-440) K/mm3 Comprehensive Metabolic Panel 11/04/20 11/05/20 Range/Units 19:55 03:37 Sodium 140 D (137-145) mmol/L Potassium 4.8 4.6 (3.6-5.0) mmol/L Chloride 109.5 H (98-107) mmol/L Carbon Dioxide 25 (22-30) mmol/L BUN 55 H (9-20) mg/dL Creatinine 2.1 H (0.8-1.3) mg/dL Glucose 157 H (75-100) mg/dL Calcium 7.0 L (8.4-10.2) mg/dL - Imaging and Cardiology EKG: report reviewed, image reviewed Echo: report reviewed (11/01/2020 - likely stalk of thrombus in CARIN of heterogenous quality, EF 40-45%, negative bubble study) - EKG Sinus rhythms and dysrhythmias: sinus rhythm AV and intraventricular conduction: left bundle branch block Repolarization changes or abnormalities: nonspecific abnormality, ST segment, and/or T wave - Allied health notes Allied health notes reviewed: nursing
--- NOTE | 2020-11-05 11:25 | Progress Note ---
Assessment and Plan Cultures: Sputum culture 11/03/2020 upper respiratory mechelle Urine culture 11/04/2020 negative Blood culture 11/04/2020 pending Tracheal aspirate 11/04/2020 pending Assessment: 70-year-old male with history of hypertension, hypothyroidism, admitted on 10/23/2020 secondary to 2-day history of acute altered mental status with confusion and diminished cognition; noted to have a left MCA CVA and right leg acute thrombosis, now with worsening leukocytosis and on pressors: #Severe sepsis with septic shock: Not present on admission. remains pressors but improving, leukocytosis is high 33K; etiology unclear ?UTI. Likely secondary to acute thrombus of the right lower extremity complicated with compartment syndrome, should rule out bacteremia, UTI, pneumonia and other nosocomial infections. Chest x-ray without any obvious pneumonia. #UTI urinalysis with mild pyuria. #Acute CVA: MRI with acute infarction of the left MCA, repeat MRI with evolving changes. Neurology on board. #Acute right leg thromboses: Complicated with compartment syndrome s/p open thrombectomy of the right lower extremity and right lower extremity compartment syndrome fasciotomy on 11/02/2020. #STACEY: Improving. Renally adjust antibiotics. #Acute respiratory failure: Intubated overnight. Chest x-ray with pulmonary edema. Elevated BNP. CT chest shows small pericardial effusion, small bilateral pleural effusion, bilateral interstitial disease. SARS-CoV-2 PCR negative. #Cardiomyopathy: EF 35 to 40%. #Left atrial appendage thrombus: Patient was on heparin drip, currently on hold due to surgical wound bleeding Recommendations: -Follow-up blood culture, urinalysis, respiratory cultures, all ordered -Continue cefepime IV renally adjusted -Continue vancomycin IV renally adjusted -Monitor leukocytosis -If diarrhea please send stool for C. difficile I am covering this weekend Will follow. Shasta Ortega MD Infectious Diseases [employer] [employer] ([facility] M [phone] O [phone] Subjective Date of service: 11/05/20 Principal diagnosis: Acute CVA, Atrial Appendage Thrombus Interval history: Remains intubated FiO2 30%, PEEP of 6, alert, unable at 4, 170 fentanyl, and heparin drip Objective - Exam Narrative Exam: General appearance: Sedated, intubated, currently alert Eyes: anicteric sclerae, moist conjunctivae; no lid-lag; PERRLA HENT: Normocephalic, Atraumatic; normal external ears, nares open, endotracheal tube in place Neck: supple, tracheal midline, no JVD Lungs: Coarse breath sound bilaterally CV: RRR no murmur Abdomen: Soft, nontender Extremities: Marked right leg edema with fasciotomy wounds bleeding Skin: Right groin surgical wound with clots Psych: Sedated Neuro: Sedated, nares open - Constitutional Vitals: Vital Signs Temp Pulse Resp BP Pulse Ox 98.5 F 83 12 93/57 100 11/05/20 08:00 11/05/20 11:01 11/05/20 06:00 11/05/20 11:01 11/05/20 11:01 Temperature -Last 24 Hours Temperature 98.5 F Temperature 98.5 F Temperature 99.4 F Temperature 99 F Temperature 98.1 F Temperature 99.1 F - Labs CBC & Chem 7: 11/05/20 03:37 11/05/20 03:37 Labs: Abnormal lab results 11/02/20 11/04/20 11/04/20 Range/Units 19:55 11:55 13:01 WBC (4.5-11.0) K/mm3 RBC (3.65-5.03) M/mm3 Hgb (11.8-15.2) gm/dl Hct (35.5-45.6) % Seg Neuts % (Manual) (40.0-70.0) % Lymphocytes % (Manual) (13.4-35.0) % Seg Neutrophils # Man (1.8-7.7) K/mm3 Monocytes # (Manual) (0.0-0.8) K/mm3 PT 16.2 H (12.2-14.9) Sec. INR 1.30 H (0.87-1.13) APTT 106.0 H* (24.2-36.6) Sec. Heparin Anti-Xa Level (0.3-0.7) U.I./ml POC ABG pO2 (83-108) mmHg ABG Hemoglobin (12.0-17.5) ABG Sodium (136.0-145.0) mmol/L ABG Chloride (98-107) mmol/L ABG Glucose (65-95) mg/dL Carboxyhemoglobin (0.5-1.5) Chloride (98-107) mmol/L BUN (9-20) mg/dL Creatinine (0.8-1.3) mg/dL Glucose (75-100) mg/dL POC Glucose 110 H (70-105) mg/dL Calcium (8.4-10.2) mg/dL C-Reactive Protein 8.30 H (0.00-1.30) mg/dL Arterial Blood Glucose (65-95) mg/dL Arterial Blood Ionized Calcium (4.6-5.3) mg/dL 11/04/20 11/04/20 11/04/20 Range/Units 13:01 17:40 19:55 WBC (4.5-11.0) K/mm3 RBC (3.65-5.03) M/mm3 Hgb 9.7 L (11.8-15.2) gm/dl Hct 28.3 L D (35.5-45.6) % Seg Neuts % (Manual) (40.0-70.0) % Lymphocytes % (Manual) (13.4-35.0) % Seg Neutrophils # Man (1.8-7.7) K/mm3 Monocytes # (Manual) (0.0-0.8) K/mm3 PT (12.2-14.9) Sec. INR (0.87-1.13) APTT (24.2-36.6) Sec. Heparin Anti-Xa Level 0.26 L (0.3-0.7) U.I./ml POC ABG pO2 (83-108) mmHg ABG Hemoglobin (12.0-17.5) ABG Sodium (136.0-145.0) mmol/L ABG Chloride (98-107) mmol/L ABG Glucose (65-95) mg/dL Carboxyhemoglobin (0.5-1.5) Chloride (98-107) mmol/L BUN (9-20) mg/dL Creatinine (0.8-1.3) mg/dL Glucose (75-100) mg/dL POC Glucose 135 H (70-105) mg/dL Calcium (8.4-10.2) mg/dL C-Reactive Protein (0.00-1.30) mg/dL Arterial Blood Glucose (65-95) mg/dL Arterial Blood Ionized Calcium (4.6-5.3) mg/dL 11/04/20 11/05/20 11/05/20 Range/Units 23:20 00:53 02:16 WBC (4.5-11.0) K/mm3 RBC (3.65-5.03) M/mm3 Hgb 9.0 L (11.8-15.2) gm/dl Hct 26.0 L (35.5-45.6) % Seg Neuts % (Manual) (40.0-70.0) % Lymphocytes % (Manual) (13.4-35.0) % Seg Neutrophils # Man (1.8-7.7) K/mm3 Monocytes # (Manual) (0.0-0.8) K/mm3 PT (12.2-14.9) Sec. INR (0.87-1.13) APTT (24.2-36.6) Sec. Heparin Anti-Xa Level 0.99 H (0.3-0.7) U.I./ml POC ABG pO2 (83-108) mmHg ABG Hemoglobin (12.0-17.5) ABG Sodium (136.0-145.0) mmol/L ABG Chloride (98-107) mmol/L ABG Glucose (65-95) mg/dL Carboxyhemoglobin (0.5-1.5) Chloride (98-107) mmol/L BUN (9-20) mg/dL Creatinine (0.8-1.3) mg/dL Glucose (75-100) mg/dL POC Glucose 143 H (70-105) mg/dL Calcium (8.4-10.2) mg/dL C-Reactive Protein (0.00-1.30) mg/dL Arterial Blood Glucose (65-95) mg/dL Arterial Blood Ionized Calcium (4.6-5.3) mg/dL 11/05/20 11/05/20 11/05/20 Range/Units 03:16 03:37 03:37 WBC 33.5 H (4.5-11.0) K/mm3 RBC 3.01 L (3.65-5.03) M/mm3 Hgb 8.8 L (11.8-15.2) gm/dl Hct 25.6 L (35.5-45.6) % Seg Neuts % (Manual) 93.5 H (40.0-70.0) % Lymphocytes % (Manual) 3.5 L (13.4-35.0) % Seg Neutrophils # Man 31.3 H (1.8-7.7) K/mm3 Monocytes # (Manual) 1.0 H (0.0-0.8) K/mm3 PT (12.2-14.9) Sec. INR (0.87-1.13) APTT (24.2-36.6) Sec. Heparin Anti-Xa Level (0.3-0.7) U.I./ml POC ABG pO2 131.3 H (83-108) mmHg ABG Hemoglobin 9.2 L (12.0-17.5) ABG Sodium 131.6 L (136.0-145.0) mmol/L ABG Chloride 110.0 H (98-107) mmol/L ABG Glucose 168 H (65-95) mg/dL Carboxyhemoglobin 0.3 L (0.5-1.5) Chloride 109.5 H (98-107) mmol/L BUN 55 H (9-20) mg/dL Creatinine 2.1 H (0.8-1.3) mg/dL Glucose 157 H (75-100) mg/dL POC Glucose (70-105) mg/dL Calcium 7.0 L (8.4-10.2) mg/dL C-Reactive Protein (0.00-1.30) mg/dL Arterial Blood Glucose 168 H (65-95) mg/dL Arterial Blood Ionized Calcium 4.4 L (4.6-5.3) mg/dL 11/05/20 Range/Units 05:19 WBC (4.5-11.0) K/mm3 RBC (3.65-5.03) M/mm3 Hgb (11.8-15.2) gm/dl Hct (35.5-45.6) % Seg Neuts % (Manual) (40.0-70.0) % Lymphocytes % (Manual) (13.4-35.0) % Seg Neutrophils # Man (1.8-7.7) K/mm3 Monocytes # (Manual) (0.0-0.8) K/mm3 PT (12.2-14.9) Sec. INR (0.87-1.13) APTT (24.2-36.6) Sec. Heparin Anti-Xa Level (0.3-0.7) U.I./ml POC ABG pO2 (83-108) mmHg ABG Hemoglobin (12.0-17.5) ABG Sodium (136.0-145.0) mmol/L ABG Chloride (98-107) mmol/L ABG Glucose (65-95) mg/dL Carboxyhemoglobin (0.5-1.5) Chloride (98-107) mmol/L BUN (9-20) mg/dL Creatinine (0.8-1.3) mg/dL Glucose (75-100) mg/dL POC Glucose 142 H (70-105) mg/dL Calcium (8.4-10.2) mg/dL C-Reactive Protein (0.00-1.30) mg/dL Arterial Blood Glucose (65-95) mg/dL Arterial Blood Ionized Calcium (4.6-5.3) mg/dL
--- NOTE | 2020-11-05 11:39 | Progress Note ---
Assessment and Plan Patient has evidence of an adequately perfused right lower extremity. There is no evidence of further bleeding to his right lower extremity. I will keep the dressings in place over the weekend. Should restart heparin drip when safe from a standpoint of bleeding urologically. Subjective Date of service: 11/05/20 Principal diagnosis: Acute CVA, Atrial Appendage Thrombus Interval history: Report from nurse that patient pulled his Winkler with the bulb inflated which resulted in significant bleeding requiring the heparin drip to be stopped. No reports of bleeding from fasciotomy incision overnight. Objective - Constitutional Vitals: Vital Signs - 12hr 11/04/20 11/05/20 11/05/20 23:45 00:00 00:15 Temperature Pulse Rate 98 H 102 H 98 H Pulse Rate [ 97 H From Monitor] Respiratory 11 L 11 L 12 Rate Blood Pressure 102/65 103/56 90/62 O2 Sat by Pulse 100 100 Oximetry 11/05/20 11/05/20 11/05/20 00:30 00:34 00:45 Temperature Pulse Rate 97 H 97 H 97 H Pulse Rate [ From Monitor] Respiratory 12 12 Rate Blood Pressure 97/64 97/64 107/68 O2 Sat by Pulse 100 100 Oximetry 11/05/20 11/05/20 11/05/20 01:00 01:15 01:30 Temperature Pulse Rate 96 H 96 H 97 H Pulse Rate [ From Monitor] Respiratory 13 13 11 L Rate Blood Pressure 111/73 113/73 99/68 O2 Sat by Pulse 100 Oximetry 11/05/20 11/05/20 11/05/20 01:45 02:00 02:15 Temperature Pulse Rate 100 H 97 H 99 H Pulse Rate [ From Monitor] Respiratory 11 L 11 L 16 Rate Blood Pressure 100/76 90/58 102/69 O2 Sat by Pulse Oximetry 11/05/20 11/05/20 11/05/20 02:30 02:45 03:00 Temperature Pulse Rate 96 H 102 H 95 H Pulse Rate [ From Monitor] Respiratory 13 13 11 L Rate Blood Pressure 102/72 106/66 92/57 O2 Sat by Pulse Oximetry 11/05/20 11/05/20 11/05/20 03:12 03:15 03:30 Temperature 98.5 F Pulse Rate 96 H 105 H Pulse Rate [ From Monitor] Respiratory 12 11 L Rate Blood Pressure 117/68 117/73 O2 Sat by Pulse Oximetry 11/05/20 11/05/20 11/05/20 03:45 04:00 04:15 Temperature Pulse Rate 96 H 93 H 96 H Pulse Rate [ 97 H From Monitor] Respiratory 14 12 10 L Rate Blood Pressure 112/72 101/71 103/72 O2 Sat by Pulse 100 100 Oximetry 11/05/20 11/05/20 11/05/20 04:30 04:45 04:50 Temperature Pulse Rate 98 H 96 H 99 H Pulse Rate [ From Monitor] Respiratory 14 13 Rate Blood Pressure 114/75 115/78 117/73 O2 Sat by Pulse 100 100 100 Oximetry 11/05/20 11/05/20 11/05/20 05:00 05:15 05:31 Temperature Pulse Rate 97 H 97 H 94 H Pulse Rate [ From Monitor] Respiratory 10 L 12 12 Rate Blood Pressure 123/77 119/74 104/62 O2 Sat by Pulse 100 100 100 Oximetry 11/05/20 11/05/20 11/05/20 05:45 06:00 07:45 Temperature Pulse Rate 93 H 93 H 107 H Pulse Rate [ From Monitor] Respiratory 11 L 12 Rate Blood Pressure 106/61 112/70 96/69 O2 Sat by Pulse 100 100 Oximetry 11/05/20 11/05/20 11/05/20 08:00 10:46 11:01 Temperature 98.5 F Pulse Rate 85 83 Pulse Rate [ From Monitor] Respiratory Rate Blood Pressure 93/57 93/57 O2 Sat by Pulse 100 Oximetry General appearance: Present: other (Patient remains intubated with decreased mental status) - Neck Neck: other (Right internal jugular triple-lumen catheter in place without signs of infection) - Respiratory Respiratory effort: other (Ventilated) Extremities: abnormal (Right fasciotomy dressings intact without evidence of bleeding) Extremity abnormal: other (Right posterior tibial Doppler signals are multiphasic) - Labs CBC & Chem 7: 11/05/20 03:37 11/05/20 03:37 Labs: Abnormal lab results 11/02/20 11/04/20 11/04/20 Range/Units 19:55 11:55 13:01 WBC (4.5-11.0) K/mm3 RBC (3.65-5.03) M/mm3 Hgb (11.8-15.2) gm/dl Hct (35.5-45.6) % Seg Neuts % (Manual) (40.0-70.0) % Lymphocytes % (Manual) (13.4-35.0) % Seg Neutrophils # Man (1.8-7.7) K/mm3 Monocytes # (Manual) (0.0-0.8) K/mm3 PT 16.2 H (12.2-14.9) Sec. INR 1.30 H (0.87-1.13) APTT 106.0 H* (24.2-36.6) Sec. Heparin Anti-Xa Level (0.3-0.7) U.I./ml POC ABG pO2 (83-108) mmHg ABG Hemoglobin (12.0-17.5) ABG Sodium (136.0-145.0) mmol/L ABG Chloride (98-107) mmol/L ABG Glucose (65-95) mg/dL Carboxyhemoglobin (0.5-1.5) Chloride (98-107) mmol/L BUN (9-20) mg/dL Creatinine (0.8-1.3) mg/dL Glucose (75-100) mg/dL POC Glucose 110 H (70-105) mg/dL Calcium (8.4-10.2) mg/dL C-Reactive Protein 8.30 H (0.00-1.30) mg/dL Arterial Blood Glucose (65-95) mg/dL Arterial Blood Ionized Calcium (4.6-5.3) mg/dL 11/04/20 11/04/20 11/04/20 Range/Units 13:01 17:40 19:55 WBC (4.5-11.0) K/mm3 RBC (3.65-5.03) M/mm3 Hgb 9.7 L (11.8-15.2) gm/dl Hct 28.3 L D (35.5-45.6) % Seg Neuts % (Manual) (40.0-70.0) % Lymphocytes % (Manual) (13.4-35.0) % Seg Neutrophils # Man (1.8-7.7) K/mm3 Monocytes # (Manual) (0.0-0.8) K/mm3 PT (12.2-14.9) Sec. INR (0.87-1.13) APTT (24.2-36.6) Sec. Heparin Anti-Xa Level 0.26 L (0.3-0.7) U.I./ml POC ABG pO2 (83-108) mmHg ABG Hemoglobin (12.0-17.5) ABG Sodium (136.0-145.0) mmol/L ABG Chloride (98-107) mmol/L ABG Glucose (65-95) mg/dL Carboxyhemoglobin (0.5-1.5) Chloride (98-107) mmol/L BUN (9-20) mg/dL Creatinine (0.8-1.3) mg/dL Glucose (75-100) mg/dL POC Glucose 135 H (70-105) mg/dL Calcium (8.4-10.2) mg/dL C-Reactive Protein (0.00-1.30) mg/dL Arterial Blood Glucose (65-95) mg/dL Arterial Blood Ionized Calcium (4.6-5.3) mg/dL 11/04/20 11/05/20 11/05/20 Range/Units 23:20 00:53 02:16 WBC (4.5-11.0) K/mm3 RBC (3.65-5.03) M/mm3 Hgb 9.0 L (11.8-15.2) gm/dl Hct 26.0 L (35.5-45.6) % Seg Neuts % (Manual) (40.0-70.0) % Lymphocytes % (Manual) (13.4-35.0) % Seg Neutrophils # Man (1.8-7.7) K/mm3 Monocytes # (Manual) (0.0-0.8) K/mm3 PT (12.2-14.9) Sec. INR (0.87-1.13) APTT (24.2-36.6) Sec. Heparin Anti-Xa Level 0.99 H (0.3-0.7) U.I./ml POC ABG pO2 (83-108) mmHg ABG Hemoglobin (12.0-17.5) ABG Sodium (136.0-145.0) mmol/L ABG Chloride (98-107) mmol/L ABG Glucose (65-95) mg/dL Carboxyhemoglobin (0.5-1.5) Chloride (98-107) mmol/L BUN (9-20) mg/dL Creatinine (0.8-1.3) mg/dL Glucose (75-100) mg/dL POC Glucose 143 H (70-105) mg/dL Calcium (8.4-10.2) mg/dL C-Reactive Protein (0.00-1.30) mg/dL Arterial Blood Glucose (65-95) mg/dL Arterial Blood Ionized Calcium (4.6-5.3) mg/dL 11/05/20 11/05/20 11/05/20 Range/Units 03:16 03:37 03:37 WBC 33.5 H (4.5-11.0) K/mm3 RBC 3.01 L (3.65-5.03) M/mm3 Hgb 8.8 L (11.8-15.2) gm/dl Hct 25.6 L (35.5-45.6) % Seg Neuts % (Manual) 93.5 H (40.0-70.0) % Lymphocytes % (Manual) 3.5 L (13.4-35.0) % Seg Neutrophils # Man 31.3 H (1.8-7.7) K/mm3 Monocytes # (Manual) 1.0 H (0.0-0.8) K/mm3 PT (12.2-14.9) Sec. INR (0.87-1.13) APTT (24.2-36.6) Sec. Heparin Anti-Xa Level (0.3-0.7) U.I./ml POC ABG pO2 131.3 H (83-108) mmHg ABG Hemoglobin 9.2 L (12.0-17.5) ABG Sodium 131.6 L (136.0-145.0) mmol/L ABG Chloride 110.0 H (98-107) mmol/L ABG Glucose 168 H (65-95) mg/dL Carboxyhemoglobin 0.3 L (0.5-1.5) Chloride 109.5 H (98-107) mmol/L BUN 55 H (9-20) mg/dL Creatinine 2.1 H (0.8-1.3) mg/dL Glucose 157 H (75-100) mg/dL POC Glucose (70-105) mg/dL Calcium 7.0 L (8.4-10.2) mg/dL C-Reactive Protein (0.00-1.30) mg/dL Arterial Blood Glucose 168 H (65-95) mg/dL Arterial Blood Ionized Calcium 4.4 L (4.6-5.3) mg/dL 11/05/20 Range/Units 05:19 WBC (4.5-11.0) K/mm3 RBC (3.65-5.03) M/mm3 Hgb (11.8-15.2) gm/dl Hct (35.5-45.6) % Seg Neuts % (Manual) (40.0-70.0) % Lymphocytes % (Manual) (13.4-35.0) % Seg Neutrophils # Man (1.8-7.7) K/mm3 Monocytes # (Manual) (0.0-0.8) K/mm3 PT (12.2-14.9) Sec. INR (0.87-1.13) APTT (24.2-36.6) Sec. Heparin Anti-Xa Level (0.3-0.7) U.I./ml POC ABG pO2 (83-108) mmHg ABG Hemoglobin (12.0-17.5) ABG Sodium (136.0-145.0) mmol/L ABG Chloride (98-107) mmol/L ABG Glucose (65-95) mg/dL Carboxyhemoglobin (0.5-1.5) Chloride (98-107) mmol/L BUN (9-20) mg/dL Creatinine (0.8-1.3) mg/dL Glucose (75-100) mg/dL POC Glucose 142 H (70-105) mg/dL Calcium (8.4-10.2) mg/dL C-Reactive Protein (0.00-1.30) mg/dL Arterial Blood Glucose (65-95) mg/dL Arterial Blood Ionized Calcium (4.6-5.3) mg/dL Medications & Allergies - Medications Allergies/Adverse Reactions: Allergies No Known Allergies Allergy (Unverified 10/23/20 12:44) Home Medications: Home Medications Medication Instructions Recorded Confirmed Last Taken Type Levothyroxine Sodium 150 mcg PO DAILY 10/31/20 10/31/20 Unknown History [Levothyroxine] carvediloL [Coreg] 6.25 mg PO BID 10/31/20 10/31/20 Unknown History lisinopriL [Lisinopril] 10 mg PO DAILY 10/31/20 10/31/20 Unknown History Active Medications: Generic Name Dose Route Start Last Admin Trade Name Freq PRN Reason Stop Dose Admin Acetaminophen 650 mg 10/23/20 20:00 Acetaminophen 325 Mg Tab PO Q4H PRN Pain, Mild (1-3) Lipase/Protease/Amylase 1 each 11/04/20 13:25 Lipase 10,500/Protease 25,000/Amylase 43,750 (Units) Dr Fernández FEEDTUBE PRN PRN For Clogged Feeding Tube Ascorbic Acid 500 mg 10/23/20 22:00 11/05/20 10:44 Ascorbic Acid 500 Mg Tab PO 500 mg BID ALEX Administration Aspirin 325 mg 10/24/20 10:00 11/05/20 10:44 Aspirin 325 Mg Tab PO 325 mg QDAY ALEX Administration Atorvastatin Calcium 40 mg 10/23/20 22:00 11/04/20 21:25 Atorvastatin 40 Mg Tab PO 40 mg QHS ALEX Administration Bisacodyl 10 mg 10/23/20 20:00 Bisacodyl 10 Mg Rect Supp MD QDAY PRN Constipation Cholecalciferol 1,000 unit 10/24/20 10:00 11/05/20 10:44 Cholecalciferol (Vit D3) 1000 Unit (25 Mcg) Tab PO 1,000 unit QDAY ALEX Administration Docusate Sodium 100 mg 11/02/20 12:00 11/05/20 10:47 Docusate Sodium 100 Mg Cap PO Not Given BID ALEX Famotidine 20 mg 11/04/20 10:00 11/05/20 10:43 Famotidine 20 Mg/2 Ml Inj IV 20 mg DAILY ALEX Administration Fentanyl 50 mcg 11/03/20 16:46 Fentanyl 100 Mcg/2 Ml Inj IV Q10MIN PRN ANALGESIA Heparin Sodium (Porcine) 3,900 unit 11/02/20 13:30 Heparin 10,000 Units/10 Ml Vial 40 unit/kg (3900 unit) IV Q6H PRN Anti-Xa Assay < 0.1 units/ml Hydrophilic Ointment 1 applic 11/03/20 16:46 Lip Therapy Vaseline TP Q2HR PRN Dry Lips Heparin Sodium/Sodium Chloride 25,000 unit in 500 mls @ 29 mls/hr 11/02/20 13:00 11/05/20 04:50 Heparin/ 0.45% Nacl-25,000 Unit/500 Ml IV 650 units/hr TITR ALEX 13 mls/hr Titration Protocol 1,450 UNITS/HR Sodium Chloride 500 mls @ 125 mls/hr 11/03/20 16:00 11/04/20 05:06 Nacl 0.9% 500 Ml IV 125 mls/hr DIRECT ALEX Administration Fentanyl Citrate 2,000 mcg in 100 mls @ 4.86 mls/hr 11/03/20 17:24 11/05/20 10:30 Fentanyl Drip Premix IV 0 mcg/kg/hr TITR ALEX 0 mls/hr Titration Protocol 1 MCG/KG/HR NORepinephrine/NS 8 MG-250 ML 8 mg in 250 mls @ 3.75 mls/hr 11/03/20 18:00 11/05/20 10:45 Norepinephrine/Ns 8 Mg-250 Ml (Double Conc) IV 6 mcg/min TITRATE AELX 11.25 mls/hr Titration Protocol 2 MCG/MIN Cefepime HCl 2 gm in 100 mls @ 200 mls/hr 11/04/20 11:00 11/05/20 10:58 Cefepime/Ns 2 Gm/100 Ml IV 200 mls/hr Q12H ALEX Administration Protocol Sodium Chloride 1,000 mls @ 125 mls/hr 11/04/20 17:30 11/05/20 01:44 Nacl 0.9% 1000 Ml IV 11/06/20 01:29 125 mls/hr DIRECT ALEX Administration Magnesium Hydroxide 30 ml 10/23/20 20:00 11/05/20 05:02 Magnesium Hydroxide (Mom) Oral Liqd Udc PO 30 ml Q4H PRN Administration Constipation Metoclopramide HCl 10 mg 10/23/20 20:00 Metoclopramide 10 Mg Tab PO Q6H PRN Nausea And Vomiting Metoprolol Tartrate 6.25 mg 10/27/20 10:00 11/05/20 10:46 Metoprolol Tartrate 25 Mg Tab PO Not Given BID ALEX Multi-Ingred Cream/Lotion/Oil/Oint 1 applic 11/03/20 16:46 Mineral Oil/Petrolatum, White Ophth Oint 3.5 Gm OU Q4HR PRN Dry Eye(s) Ondansetron HCl 4 mg 10/23/20 20:00 Ondansetron 4 Mg/2 Ml Inj IV Q8H PRN Nausea And Vomiting Oxycodone/Acetaminophen 1 tab 11/03/20 09:27 Oxycodone /Acetaminophen 5-325mg Tab PO Q6H PRN Pain, Moderate (4-6) Promethazine HCl 25 mg 10/23/20 20:00 Promethazine 25 Mg Rect Supp MD Q6H PRN Nausea And Vomiting Simple Syrup 15 ml 11/04/20 13:25 Simple Syrup 15 Ml FEEDTUBE PRN PRN Hypoglycemia Simple Syrup 30 ml 11/04/20 13:25 Simple Syrup 15 Ml FEEDTUBE PRN PRN Hypoglycemia Sodium Bicarbonate 325 mg 11/04/20 13:25 Sodium Bicarbonate 325 Mg Tab FEEDTUBE PRN PRN For Clogged Feeding Tube Sodium Chloride 10 ml 10/23/20 20:00 11/04/20 21:25 Sodium Chloride 0.9% 10 Ml Flush Syringe IV 10 ml PRN PRN Administration LINE FLUSH Zinc Sulfate 220 mg 10/23/20 22:00 11/05/20 10:44 Zinc Sulfate 220 Mg Cap PO 220 mg BID ALEX Administration HEART Score - HEART Score Troponin: Troponin T 0.026 ng/mL (0.00-0.029) 10/23/20 16:39
--- NOTE | 2020-11-05 12:04 | Ultrasound Report ---
US renal BILAT INDICATION / CLINICAL INFORMATION: Acute renal failure.. COMPARISON: None available. FINDINGS: Overall, kidneys are not well-visualized. RIGHT KIDNEY: Size = 9.1 cm. - Echogenicity: Increased echogenicity and decreased visualization of the renal pyramids. - Cortical thickness: Normal. - Hydronephrosis: None. - Cyst or mass: None. - Stones: None seen.. LEFT KIDNEY: Size = 7.8 cm. - Echogenicity: Increased echogenicity and decreased visualization of the renal pyramids. - Cortical thickness: Normal. - Hydronephrosis: None. - Cyst or mass: None. - Stones: None seen.. URINARY BLADDER: No significant abnormality. FREE FLUID: None. ADDITIONAL FINDINGS: None. IMPRESSION 1. Findings of medical renal disease without other significant sonographic abnormality. Signer Name: Gallito Kapoor MD Signed: 11/05/2020 12:00 PM Workstation Name: [id number]
--- NOTE | 2020-11-05 13:16 | Progress Note ---
Assessment and Plan 1. Acute kidney injury: Vasomotor STACEY in the setting of shock. Renal US negative for hydro. Monitor renal function. Renal prognosis is guarded. Creatinine level is slightly better today. Avoid nephrotoxic agents. Meds dosage based on GFR. 2. FEN: Hyperkalemia, improved, monitor. Hyperchloremic metabolic acidosis, monitor. Monitor lytes and volume status. 3. Severe sepsis with shock: Etiology unclear, rule out bacteremia, UTI, pneumonia and other nosocomial infections. Levophed. Followed by ID. 4. 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 Seen by Neurology. 5. Acute hypoxemic respiratory failure: Intubated, on vent. 6. Acute on chronic systolic heart failure: EF 40-45%. Followed by Cards. 7. Left atrial thrombus: Argatroban. 8. Acute R LE ischemia: S/p thrombectomy. 9. Normochromic anemia: Monitor. Subjective: Patient was seen and examined at the bedside. Examination: General appearance: well-developed, appears stated age, no distress, intubated, on vent, NG tube HEENT: SCOTTY, atraumatic Neck: trachea midline Respiratory: Clear to Auscultation Heart: S1S2, regular, no murmur Abdomen: soft, appears distended, bowel sounds, NT Integumentary: R LE cold and clammy, dressing noted Neurologic: opens eyes, intermittently moving extremities Ext: trace R LE edema noted : Winkler catheter Subjective Date of service: 11/05/20 Principal diagnosis: Ac hypoxemic resp failure; CVA; Acute limb ischemia; Acute encephalopathy Objective - Vital Signs Vital signs: Vital Signs - 12hr 11/05/20 11/05/20 11/05/20 01:30 01:45 02:00 Temperature Pulse Rate 97 H 100 H 97 H Pulse Rate [ From Monitor] Respiratory 11 L 11 L 11 L Rate Blood Pressure 99/68 100/76 90/58 O2 Sat by Pulse Oximetry 11/05/20 11/05/20 11/05/20 02:15 02:30 02:45 Temperature Pulse Rate 99 H 96 H 102 H Pulse Rate [ From Monitor] Respiratory 16 13 13 Rate Blood Pressure 102/69 102/72 106/66 O2 Sat by Pulse Oximetry 11/05/20 11/05/20 11/05/20 03:00 03:12 03:15 Temperature 98.5 F Pulse Rate 95 H 96 H Pulse Rate [ From Monitor] Respiratory 11 L 12 Rate Blood Pressure 92/57 117/68 O2 Sat by Pulse Oximetry 11/05/20 11/05/20 11/05/20 03:30 03:45 04:00 Temperature Pulse Rate 105 H 96 H 93 H Pulse Rate [ 97 H From Monitor] Respiratory 11 L 14 12 Rate Blood Pressure 117/73 112/72 101/71 O2 Sat by Pulse 100 100 Oximetry 11/05/20 11/05/20 11/05/20 04:15 04:30 04:45 Temperature Pulse Rate 96 H 98 H 96 H Pulse Rate [ From Monitor] Respiratory 10 L 14 13 Rate Blood Pressure 103/72 114/75 115/78 O2 Sat by Pulse 100 100 Oximetry 11/05/20 11/05/20 11/05/20 04:50 05:00 05:15 Temperature Pulse Rate 99 H 97 H 97 H Pulse Rate [ From Monitor] Respiratory 10 L 12 Rate Blood Pressure 117/73 123/77 119/74 O2 Sat by Pulse 100 100 100 Oximetry 11/05/20 11/05/20 11/05/20 05:31 05:45 06:00 Temperature Pulse Rate 94 H 93 H 93 H Pulse Rate [ From Monitor] Respiratory 12 11 L 12 Rate Blood Pressure 104/62 106/61 112/70 O2 Sat by Pulse 100 100 100 Oximetry 11/05/20 11/05/20 11/05/20 07:45 08:00 10:46 Temperature 98.5 F Pulse Rate 107 H 85 Pulse Rate [ From Monitor] Respiratory Rate Blood Pressure 96/69 93/57 O2 Sat by Pulse Oximetry 11/05/20 11/05/20 11:01 12:00 Temperature 97.6 F Pulse Rate 83 Pulse Rate [ From Monitor] Respiratory Rate Blood Pressure 93/57 O2 Sat by Pulse 100 Oximetry - Lab 11/05/20 03:37 11/05/20 03:37 Most recent lab results ABG pH 7.402 (7.320-7.450) 11/05/20 03:16 ABG O2 Saturation 98.5 (0-100) 11/05/20 03:16 Calcium 7.0 mg/dL (8.4-10.2) L 11/05/20 03:37 Magnesium 2.20 mg/dL (1.7-2.3) 10/23/20 20:33 Urine Creatinine < 4.2 mg/dL (0.1-20.0) 11/04/20 12:50 Urine Sodium 10 mmol/L 11/04/20 12:50 Medications & Allergies - Medications Allergies/Adverse Reactions: Allergies No Known Allergies Allergy (Unverified 10/23/20 12:44) Home Medications: Home Medications Medication Instructions Recorded Confirmed Last Taken Type Levothyroxine Sodium 150 mcg PO DAILY 10/31/20 10/31/20 Unknown History [Levothyroxine] carvediloL [Coreg] 6.25 mg PO BID 10/31/20 10/31/20 Unknown History lisinopriL [Lisinopril] 10 mg PO DAILY 10/31/20 10/31/20 Unknown History Active Medications: Generic Name Dose Route Start Last Admin Trade Name Freq PRN Reason Stop Dose Admin Acetaminophen 650 mg 10/23/20 20:00 Acetaminophen 325 Mg Tab PO Q4H PRN Pain, Mild (1-3) Lipase/Protease/Amylase 1 each 11/04/20 13:25 Lipase 10,500/Protease 25,000/Amylase 43,750 (Units) Dr Fernández FEEDTUBE PRN PRN For Clogged Feeding Tube Ascorbic Acid 500 mg 10/23/20 22:00 11/05/20 10:44 Ascorbic Acid 500 Mg Tab PO 500 mg BID ALEX Administration Aspirin 325 mg 10/24/20 10:00 11/05/20 10:44 Aspirin 325 Mg Tab PO 325 mg QDAY ALEX Administration Atorvastatin Calcium 40 mg 10/23/20 22:00 11/04/20 21:25 Atorvastatin 40 Mg Tab PO 40 mg QHS ALEX Administration Bisacodyl 10 mg 10/23/20 20:00 Bisacodyl 10 Mg Rect Supp [place] QDAY PRN Constipation Cholecalciferol 1,000 unit 10/24/20 10:00 11/05/20 10:44 Cholecalciferol (Vit D3) 1000 Unit (25 Mcg) Tab PO 1,000 unit QDAY ALEX Administration Docusate Sodium 100 mg 11/02/20 12:00 11/05/20 10:47 Docusate Sodium 100 Mg Cap PO Not Given BID ALEX Famotidine 20 mg 11/04/20 10:00 11/05/20 10:43 Famotidine 20 Mg/2 Ml Inj IV 20 mg DAILY ALEX Administration Fentanyl 50 mcg 11/03/20 16:46 Fentanyl 100 Mcg/2 Ml Inj IV Q10MIN PRN ANALGESIA Heparin Sodium (Porcine) 3,900 unit 11/02/20 13:30 Heparin 10,000 Units/10 Ml Vial 40 unit/kg (3900 unit) IV Q6H PRN Anti-Xa Assay < 0.1 units/ml Hydrophilic Ointment 1 applic 11/03/20 16:46 Lip Therapy Vaseline TP Q2HR PRN Dry Lips Heparin Sodium/Sodium Chloride 25,000 unit in 500 mls @ 29 mls/hr 11/02/20 13:00 11/05/20 04:50 Heparin/ 0.45% Nacl-25,000 Unit/500 Ml IV 650 units/hr TITR ALEX 13 mls/hr Titration Protocol 1,450 UNITS/HR Sodium Chloride 500 mls @ 125 mls/hr 11/03/20 16:00 11/04/20 05:06 Nacl 0.9% 500 Ml IV 125 mls/hr DIRECT ALEX Administration Fentanyl Citrate 2,000 mcg in 100 mls @ 4.86 mls/hr 11/03/20 17:24 11/05/20 10:30 Fentanyl Drip Premix IV 0 mcg/kg/hr TITR ALEX 0 mls/hr Titration Protocol 1 MCG/KG/HR NORepinephrine/NS 8 MG-250 ML 8 mg in 250 mls @ 3.75 mls/hr 11/03/20 18:00 11/05/20 10:45 Norepinephrine/Ns 8 Mg-250 Ml (Double Conc) IV 6 mcg/min TITRATE ALEX 11.25 mls/hr Titration Protocol 2 MCG/MIN Cefepime HCl 2 gm in 100 mls @ 200 mls/hr 11/04/20 11:00 11/05/20 10:58 Cefepime/Ns 2 Gm/100 Ml IV 200 mls/hr Q12H ALEX Administration Protocol Sodium Chloride 1,000 mls @ 125 mls/hr 11/04/20 17:30 11/05/20 01:44 Nacl 0.9% 1000 Ml IV 11/06/20 01:29 125 mls/hr DIRECT ALEX Administration Magnesium Hydroxide 30 ml 10/23/20 20:00 11/05/20 05:02 Magnesium Hydroxide (Mom) Oral Liqd Udc PO 30 ml Q4H PRN Administration Constipation Metoclopramide HCl 10 mg 10/23/20 20:00 Metoclopramide 10 Mg Tab PO Q6H PRN Nausea And Vomiting Metoprolol Tartrate 6.25 mg 10/27/20 10:00 11/05/20 10:46 Metoprolol Tartrate 25 Mg Tab PO Not Given BID ALEX Multi-Ingred Cream/Lotion/Oil/Oint 1 applic 11/03/20 16:46 Mineral Oil/Petrolatum, White Ophth Oint 3.5 Gm OU Q4HR PRN Dry Eye(s) Ondansetron HCl 4 mg 10/23/20 20:00 Ondansetron 4 Mg/2 Ml Inj IV Q8H PRN Nausea And Vomiting Oxycodone/Acetaminophen 1 tab 11/03/20 09:27 Oxycodone /Acetaminophen 5-325mg Tab PO Q6H PRN Pain, Moderate (4-6) Promethazine HCl 25 mg 10/23/20 20:00 Promethazine 25 Mg Rect Supp [place] Q6H PRN Nausea And Vomiting Simple Syrup 15 ml 11/04/20 13:25 Simple Syrup 15 Ml FEEDTUBE PRN PRN Hypoglycemia Simple Syrup 30 ml 11/04/20 13:25 Simple Syrup 15 Ml FEEDTUBE PRN PRN Hypoglycemia Sodium Bicarbonate 325 mg 11/04/20 13:25 Sodium Bicarbonate 325 Mg Tab FEEDTUBE PRN PRN For Clogged Feeding Tube Sodium Chloride 10 ml 10/23/20 20:00 11/04/20 21:25 Sodium Chloride 0.9% 10 Ml Flush Syringe IV 10 ml PRN PRN Administration LINE FLUSH Zinc Sulfate 220 mg 10/23/20 22:00 11/05/20 10:44 Zinc Sulfate 220 Mg Cap PO 220 mg BID ALEX Administration
--- NOTE | 2020-11-05 15:04 | Progress Note ---
Assessment and Plan Acute hypoxemic respiratory failure. Acute embolic cerebrovascular accident. Acute limb ischemia, status post thrombectomy. Left atrial appendage. Acute congestive heart failure exacerbation. Obesity. History of hypothyroidism. Leukocytosis. Acute encephalopathy, toxic metabolic - Magnesium citrate 300 mls po q4h X 2 doses re: KUB with stool impactation - continue Heparin re: risk benefit analysis but at low dose protocol with prn H&H - continue antiinfective's per ID recommendation (Cefepime) - repeat lactate now WNL - azotemia per nephrology team - continue care as below otherwise; - continue to wean supplemental oxygen for target O2 sat's > 90% acutely - VAP bundle addressed - continue lung protective strategies - continue bronchodilators with pulmonary hygiene per RT - wean per pulmonary driven protocols otherwise - avoid nephrotoxins, renally dose all medications - continue Daily SAT and SBT assessment as tolerated - continue accuchecks with glycemic control per SSI (While critically ill target blood glucose of 140-180 mg/dL; avoid hypoglycemia) - sedation prn for target RASS 0 to -1 - continue to avoid benzodiazepine's, reduce the possibility of delirium - complete AB's per ID rec's - prn analgesia per CPOT score - Maintenance of sleep-wake cycle, avoid delirium - continue enteral nutritional support at goal rate as tolerated - G.I. & VTE prophylaxis - PT/OT/ROM exercises - continue mobility protocols for pressure ulcer prophylaxis - Monitor hemodynamics closely - continue other care per attending / other consultants - discharge planning ongoing concurrently .... Re-evaluate in am & prn CONDITION: CRITICAL PROGNOSIS: GUARDED CODE STATUS: FULL CODE The high probability of a clinically significant, sudden or life-threatening deterioration of the [respiratory, cardiovascular, renal & neurologic] system(s) required my full and direct attention, intervention and personal management. The aggregate critical care time was [32] minutes without overlap. Time includes spent on; [x] Data Review and interpretation [x] Patient assessment and monitoring of vital signs [x] Documentation [x] Medication orders and management Subjective Date of service: 11/05/20 Principal diagnosis: Ac hypoxemic resp failure; CVA; Acute limb ischemia; Acute encephalopathy Interval history: Patient is seen today for: Acute hypoxemic respiratory failure; Acute embolic CVA; Acute limb ischemia; Left atrial appendage; Acute CHF; Obesity; Acute encephalopathy, toxic metabolic Seen and examined at bedside; 24hour events reviewed; nursing and respiratory care staff consulted; no adverse overnight events reported to me; resting peacefully in bed; remains on MVS; acid base balance improved; AMS is persistent; tolerating tube feeds; did not tolerate SBT well; no emesis or overt aspiration; + abdominal distension Objective Vital Signs - 12hr 11/05/20 11/05/20 11/05/20 01:00 01:15 01:30 Temperature Pulse Rate 96 H 96 H 97 H Pulse Rate [ From Monitor] Respiratory 13 13 11 L Rate Blood Pressure 111/73 113/73 99/68 O2 Sat by Pulse 100 Oximetry 11/05/20 11/05/20 11/05/20 01:45 02:00 02:15 Temperature Pulse Rate 100 H 97 H 99 H Pulse Rate [ From Monitor] Respiratory 11 L 11 L 16 Rate Blood Pressure 100/76 90/58 102/69 O2 Sat by Pulse Oximetry 11/05/20 11/05/20 11/05/20 02:30 02:45 03:00 Temperature Pulse Rate 96 H 102 H 95 H Pulse Rate [ From Monitor] Respiratory 13 13 11 L Rate Blood Pressure 102/72 106/66 92/57 O2 Sat by Pulse Oximetry 11/05/20 11/05/20 11/05/20 03:12 03:15 03:30 Temperature 98.5 F Pulse Rate 96 H 105 H Pulse Rate [ From Monitor] Respiratory 12 11 L Rate Blood Pressure 117/68 117/73 O2 Sat by Pulse Oximetry 11/05/20 11/05/20 11/05/20 03:45 04:00 04:15 Temperature Pulse Rate 96 H 93 H 96 H Pulse Rate [ 97 H From Monitor] Respiratory 14 12 10 L Rate Blood Pressure 112/72 101/71 103/72 O2 Sat by Pulse 100 100 Oximetry 11/05/20 11/05/20 11/05/20 04:30 04:45 04:50 Temperature Pulse Rate 98 H 96 H 99 H Pulse Rate [ From Monitor] Respiratory 14 13 Rate Blood Pressure 114/75 115/78 117/73 O2 Sat by Pulse 100 100 100 Oximetry 11/05/20 11/05/20 11/05/20 05:00 05:15 05:31 Temperature Pulse Rate 97 H 97 H 94 H Pulse Rate [ From Monitor] Respiratory 10 L 12 12 Rate Blood Pressure 123/77 119/74 104/62 O2 Sat by Pulse 100 100 100 Oximetry 11/05/20 11/05/20 11/05/20 05:45 06:00 07:45 Temperature Pulse Rate 93 H 93 H 107 H Pulse Rate [ From Monitor] Respiratory 11 L 12 Rate Blood Pressure 106/61 112/70 96/69 O2 Sat by Pulse 100 100 Oximetry 11/05/20 11/05/20 11/05/20 08:00 10:46 11:01 Temperature 98.5 F Pulse Rate 85 83 Pulse Rate [ From Monitor] Respiratory Rate Blood Pressure 93/57 93/57 O2 Sat by Pulse 100 Oximetry Constitutional: no acute distress, other (elderly male with mildly increased respiratory effort at rest on MVS) Eyes: non-icteric ENT: oropharynx moist, other (ETT 25 cm DALIA) Neck: supple, no lymphadenopathy, no JVD Effort: mildly labored Ascultation: Bilateral: diminished breath sounds, rhonchi (scant) Percussion: Bilateral: not dull Cardiovascular: regular rate and rhythm Gastrointestinal: normoactive bowel sounds, soft, non-tender, other (distended; tympanitic to percussion) Integumentary: normal Extremities: no cyanosis, pink and warm, edema (RLExt), other (RLExt fasciotomy) Neurologic: pupils equal and round, unable to assess, other (Right Hemiparesis) Psychiatric: other (encephalopathic) CBC and BMP: 11/05/20 03:37 11/05/20 03:37 ABG, PT/INR, D-dimer: ABG ABG pH 7.402 (7.320-7.450) 11/05/20 03:16 POC ABG pCO2 34.3 mmHg (32.0-48.0) 11/05/20 03:16 POC ABG pO2 131.3 mmHg (83-108) H 11/05/20 03:16 POC ABG HCO3 20.9 11/05/20 03:16 ABG O2 Saturation 98.5 (0-100) 11/05/20 03:16 PT/INR, D-dimer PT 16.2 Sec. (12.2-14.9) H 11/02/20 19:55 INR 1.30 (0.87-1.13) H 11/02/20 19:55 D-Dimer 4139.61 ng/mlDDU (0-234) H 10/23/20 18:23 Abnormal lab findings: Abnormal Labs 10/23/20 10/23/20 10/23/20 13:32 18:23 18:23 WBC RBC Hgb Hct Seg Neuts % (Manual) Lymphocytes % (Manual) Seg Neutrophils # Man Monocytes # (Manual) PT INR APTT D-Dimer 4139.61 H Heparin Anti-Xa Level ABG pH POC ABG pCO2 POC ABG pO2 ABG Hemoglobin ABG Oxyhemoglobin ABG Sodium ABG Potassium ABG Chloride ABG Glucose Carboxyhemoglobin Sodium Potassium Chloride 109.1 H Carbon Dioxide BUN Creatinine Glucose POC Glucose Lactic Acid Calcium Lactate Dehydrogenase 334 H C-Reactive Protein 2.50 H NT-Pro-B Natriuret Pep 5806 H TSH Arterial Blood Glucose Arterial Blood Ionized Calcium Urine WBC (Auto) Crossmatch 10/23/20 10/23/20 10/26/20 18:23 18:23 05:34 WBC RBC Hgb Hct Seg Neuts % (Manual) Lymphocytes % (Manual) Seg Neutrophils # Man Monocytes # (Manual) PT INR APTT D-Dimer Heparin Anti-Xa Level ABG pH POC ABG pCO2 POC ABG pO2 ABG Hemoglobin ABG Oxyhemoglobin ABG Sodium ABG Potassium ABG Chloride ABG Glucose Carboxyhemoglobin Sodium Potassium Chloride Carbon Dioxide BUN 30 H Creatinine Glucose 120 H POC Glucose Lactic Acid Calcium Lactate Dehydrogenase C-Reactive Protein NT-Pro-B Natriuret Pep TSH 7.100 H 6.540 H Arterial Blood Glucose Arterial Blood Ionized Calcium Urine WBC (Auto) Crossmatch 10/27/20 10/28/20 11/02/20 08:55 05:25 07:17 WBC 15.8 H RBC Hgb Hct Seg Neuts % (Manual) Lymphocytes % (Manual) Seg Neutrophils # Man Monocytes # (Manual) PT INR APTT D-Dimer Heparin Anti-Xa Level ABG pH POC ABG pCO2 POC ABG pO2 ABG Hemoglobin ABG Oxyhemoglobin ABG Sodium ABG Potassium ABG Chloride ABG Glucose Carboxyhemoglobin Sodium Potassium Chloride Carbon Dioxide BUN 28 H 28 H Creatinine Glucose 124 H 110 H POC Glucose Lactic Acid Calcium 8.2 L Lactate Dehydrogenase C-Reactive Protein NT-Pro-B Natriuret Pep TSH Arterial Blood Glucose Arterial Blood Ionized Calcium Urine WBC (Auto) Crossmatch 11/02/20 11/02/20 11/02/20 07:17 15:00 15:06 WBC RBC Hgb 15.7 H Hct 47.5 H D Seg Neuts % (Manual) Lymphocytes % (Manual) Seg Neutrophils # Man Monocytes # (Manual) PT INR APTT D-Dimer Heparin Anti-Xa Level ABG pH POC ABG pCO2 POC ABG pO2 ABG Hemoglobin ABG Oxyhemoglobin ABG Sodium ABG Potassium ABG Chloride ABG Glucose Carboxyhemoglobin Sodium 136 L Potassium Chloride Carbon Dioxide BUN 33 H Creatinine Glucose 107 H POC Glucose Lactic Acid Calcium 7.9 L Lactate Dehydrogenase C-Reactive Protein NT-Pro-B Natriuret Pep TSH Arterial Blood Glucose Arterial Blood Ionized Calcium Urine WBC (Auto) Crossmatch See Detail 11/02/20 11/02/20 11/02/20 19:55 21:25 22:28 WBC 21.8 H RBC Hgb Hct Seg Neuts % (Manual) Lymphocytes % (Manual) Seg Neutrophils # Man Monocytes # (Manual) PT 16.2 H INR 1.30 H APTT 106.0 H* D-Dimer Heparin Anti-Xa Level 1.63 H ABG pH POC ABG pCO2 POC ABG pO2 ABG Hemoglobin ABG Oxyhemoglobin ABG Sodium ABG Potassium ABG Chloride ABG Glucose Carboxyhemoglobin Sodium Potassium Chloride Carbon Dioxide BUN Creatinine Glucose POC Glucose Lactic Acid Calcium Lactate Dehydrogenase C-Reactive Protein NT-Pro-B Natriuret Pep TSH Arterial Blood Glucose Arterial Blood Ionized Calcium Urine WBC (Auto) Crossmatch 11/03/20 11/03/20 11/03/20 05:47 13:20 13:20 WBC 29.0 H RBC Hgb 10.4 L Hct 31.2 L D Seg Neuts % (Manual) Lymphocytes % (Manual) Seg Neutrophils # Man Monocytes # (Manual) PT INR APTT D-Dimer Heparin Anti-Xa Level < 0.10 L ABG pH POC ABG pCO2 POC ABG pO2 ABG Hemoglobin ABG Oxyhemoglobin ABG Sodium ABG Potassium ABG Chloride ABG Glucose Carboxyhemoglobin Sodium 134 L Potassium 5.9 H D Chloride Carbon Dioxide 17 L D BUN 47 H Creatinine 2.2 H D Glucose 188 H POC Glucose Lactic Acid Calcium 7.6 L Lactate Dehydrogenase C-Reactive Protein NT-Pro-B Natriuret Pep TSH Arterial Blood Glucose Arterial Blood Ionized Calcium Urine WBC (Auto) Crossmatch 11/03/20 11/03/20 11/03/20 13:20 16:11 20:01 WBC RBC Hgb Hct Seg Neuts % (Manual) Lymphocytes % (Manual) Seg Neutrophils # Man Monocytes # (Manual) PT INR APTT D-Dimer Heparin Anti-Xa Level ABG pH 7.289 L POC ABG pCO2 31.8 L POC ABG pO2 156.7 H 119.6 H ABG Hemoglobin 10.7 L 9.7 L ABG Oxyhemoglobin 98.2 H ABG Sodium 127.7 L 129.5 L ABG Potassium 5.8 H 5.9 H ABG Chloride ABG Glucose 190 H 174 H Carboxyhemoglobin 0.3 L 0.1 L Sodium Potassium Chloride Carbon Dioxide BUN Creatinine Glucose POC Glucose Lactic Acid 7.40 H* Calcium Lactate Dehydrogenase C-Reactive Protein NT-Pro-B Natriuret Pep TSH Arterial Blood Glucose 190 H 174 H Arterial Blood Ionized Calcium 4.3 L 4.3 L Urine WBC (Auto) Crossmatch 11/03/20 11/04/20 11/04/20 21:14 04:00 04:00 WBC 32.8 H RBC Hgb 11.7 L Hct 35.0 L Seg Neuts % (Manual) 82.0 H Lymphocytes % (Manual) 10.0 L Seg Neutrophils # Man 26.9 H Monocytes # (Manual) 2.3 H PT INR APTT D-Dimer Heparin Anti-Xa Level 0.73 H ABG pH POC ABG pCO2 POC ABG pO2 ABG Hemoglobin ABG Oxyhemoglobin ABG Sodium ABG Potassium ABG Chloride ABG Glucose Carboxyhemoglobin Sodium 133 L Potassium 5.7 H Chloride Carbon Dioxide 20 L BUN 57 H Creatinine 2.3 H Glucose 129 H POC Glucose Lactic Acid Calcium 7.2 L Lactate Dehydrogenase C-Reactive Protein NT-Pro-B Natriuret Pep TSH Arterial Blood Glucose Arterial Blood Ionized Calcium Urine WBC (Auto) Crossmatch 11/04/20 11/04/20 11/04/20 07:57 11:00 11:55 WBC RBC Hgb Hct Seg Neuts % (Manual) Lymphocytes % (Manual) Seg Neutrophils # Man Monocytes # (Manual) PT INR APTT D-Dimer Heparin Anti-Xa Level ABG pH POC ABG pCO2 POC ABG pO2 132.7 H ABG Hemoglobin 11.5 L ABG Oxyhemoglobin ABG Sodium 130.6 L ABG Potassium 5.3 H ABG Chloride ABG Glucose 145 H Carboxyhemoglobin 0.2 L Sodium Potassium Chloride Carbon Dioxide BUN Creatinine Glucose POC Glucose 110 H Lactic Acid Calcium Lactate Dehydrogenase C-Reactive Protein NT-Pro-B Natriuret Pep TSH Arterial Blood Glucose 145 H Arterial Blood Ionized Calcium 4.4 L Urine WBC (Auto) 19.0 H Crossmatch 11/04/20 11/04/20 11/04/20 13:01 13:01 17:40 WBC RBC Hgb Hct Seg Neuts % (Manual) Lymphocytes % (Manual) Seg Neutrophils # Man Monocytes # (Manual) PT INR APTT D-Dimer Heparin Anti-Xa Level 0.26 L ABG pH POC ABG pCO2 POC ABG pO2 ABG Hemoglobin ABG Oxyhemoglobin ABG Sodium ABG Potassium ABG Chloride ABG Glucose Carboxyhemoglobin Sodium Potassium Chloride Carbon Dioxide BUN Creatinine Glucose POC Glucose 135 H Lactic Acid Calcium Lactate Dehydrogenase C-Reactive Protein 8.30 H NT-Pro-B Natriuret Pep TSH Arterial Blood Glucose Arterial Blood Ionized Calcium Urine WBC (Auto) Crossmatch 11/04/20 11/04/20 11/05/20 19:55 23:20 00:53 WBC RBC Hgb 9.7 L 9.0 L Hct 28.3 L D 26.0 L Seg Neuts % (Manual) Lymphocytes % (Manual) Seg Neutrophils # Man Monocytes # (Manual) PT INR APTT D-Dimer Heparin Anti-Xa Level ABG pH POC ABG pCO2 POC ABG pO2 ABG Hemoglobin ABG Oxyhemoglobin ABG Sodium ABG Potassium ABG Chloride ABG Glucose Carboxyhemoglobin Sodium Potassium Chloride Carbon Dioxide BUN Creatinine Glucose POC Glucose 143 H Lactic Acid Calcium Lactate Dehydrogenase C-Reactive Protein NT-Pro-B Natriuret Pep TSH Arterial Blood Glucose Arterial Blood Ionized Calcium Urine WBC (Auto) Crossmatch 11/05/20 11/05/20 11/05/20 02:16 03:16 03:37 WBC 33.5 H RBC 3.01 L Hgb 8.8 L Hct 25.6 L Seg Neuts % (Manual) 93.5 H Lymphocytes % (Manual) 3.5 L Seg Neutrophils # Man 31.3 H Monocytes # (Manual) 1.0 H PT INR APTT D-Dimer Heparin Anti-Xa Level 0.99 H ABG pH POC ABG pCO2 POC ABG pO2 131.3 H ABG Hemoglobin 9.2 L ABG Oxyhemoglobin ABG Sodium 131.6 L ABG Potassium ABG Chloride 110.0 H ABG Glucose 168 H Carboxyhemoglobin 0.3 L Sodium Potassium Chloride Carbon Dioxide BUN Creatinine Glucose POC Glucose Lactic Acid Calcium Lactate Dehydrogenase C-Reactive Protein NT-Pro-B Natriuret Pep TSH Arterial Blood Glucose 168 H Arterial Blood Ionized Calcium 4.4 L Urine WBC (Auto) Crossmatch 11/05/20 11/05/20 03:37 05:19 WBC RBC Hgb Hct Seg Neuts % (Manual) Lymphocytes % (Manual) Seg Neutrophils # Man Monocytes # (Manual) PT INR APTT D-Dimer Heparin Anti-Xa Level ABG pH POC ABG pCO2 POC ABG pO2 ABG Hemoglobin ABG Oxyhemoglobin ABG Sodium ABG Potassium ABG Chloride ABG Glucose Carboxyhemoglobin Sodium Potassium Chloride 109.5 H Carbon Dioxide BUN 55 H Creatinine 2.1 H Glucose 157 H POC Glucose 142 H Lactic Acid Calcium 7.0 L Lactate Dehydrogenase C-Reactive Protein NT-Pro-B Natriuret Pep TSH Arterial Blood Glucose Arterial Blood Ionized Calcium Urine WBC (Auto) Crossmatch Chest x-ray: image reviewed Allied health notes reviewed: nursing
[2020-11-05] MEDS: MAGNESIUM CITRATE 300 ML ORAL LIQD PO SCH ×2 (15:40→19:30)
--- NOTE | 2020-11-05 17:27 | Hem/Onc Consultation ---
History of Present Illness - History of Present Illness HEME PRELIM EVAL DATA REVIEW ONLY 70yo man wiht recent R leg arterial thrombosis, now with stroke and L atrial clot was looking r]toward acute rehab-->but setback, now intubated, ARF, hypotension--.vasopressors on and off IVheparin DATA REVIEWED BELOW. IMP: recent clotting-presumed clotting tendency recent decompensation and ARF could be due to HIT r/o HIT, even though plt count is not very low REC: labs to include pF4 Ab testing switch to argatroban steroid pulse Active Medications Fentanyl (Fentanyl 100 Mcg/2 Ml Inj) 50 mcg IV Q10MIN PRN PRN Reason: ANALGESIA Heparin Sodium (Porcine) (Heparin 10,000 Units/10 Ml Vial) 3,900 unit 40 unit/kg (3900 unit) IV Q6H PRN PRN Reason: Anti-Xa Assay < 0.1 units/ml Hydrophilic Ointment (Lip Therapy Vaseline) 1 applic TP Q2HR PRN PRN Reason: Dry Lips Fentanyl Citrate (Fentanyl Drip Premix) 2,000 mcg in 100 mls @ 4.86 mls/hr IV TITR ALEX; Protocol Last Titration: 11/05/20 14:00 Dose: 2 mcg/kg/hr, 9.72 mls/hr Documented by: NORepinephrine/NS 8 MG-250 ML (Norepinephrine/Ns 8 Mg-250 Ml (Double Conc)) 8 mg in 250 mls @ 3.75 mls/hr IV TITRATE ALEX; Protocol Last Admin: 11/05/20 14:42 Dose: 6 mcg/min, 11.25 mls/hr Documented by: Cefepime HCl (Cefepime/Ns 2 Gm/100 Ml) 2 gm in 100 mls @ 200 mls/hr IV Q12H ALEX; Protocol Last Admin: 11/05/20 10:58 Dose: 200 mls/hr Documented by: Laboratory Last Values WBC 33.5 K/mm3 (4.5-11.0) H 11/05/20 03:37 Hgb 8.8 gm/dl (11.8-15.2) L 11/05/20 03:37 Hct 25.6 % (35.5-45.6) L 11/05/20 03:37 Plt Count 153 K/mm3 (140-440) 11/05/20 03:37 PT 16.2 Sec. (12.2-14.9) H 11/02/20 19:55 INR 1.30 (0.87-1.13) H 11/02/20 19:55 APTT 106.0 Sec. (24.2-36.6) H* 11/02/20 19:55 D-Dimer 4139.61 ng/mlDDU (0-234) H 10/23/20 18:23 Heparin Anti-Xa Level 0.43 U.I./ml (0.3-0.7) 11/05/20 11:30 Creatinine 2.1 mg/dL (0.8-1.3) H 11/05/20 03:37 Lactic Acid 1.30 mmol/L (0.7-2.0) 11/04/20 13:01 Lactate Dehydrogenase 334 units/L (91-180) H 10/23/20 18:23 Crossmatch See Detail 11/02/20 15:00 Past History Past Medical History: hypertension, hypothyroidism, other (See HPI) Past Surgical History: thyroidectomy Social history: single. denies: smoking, alcohol abuse Family history: hypertension Medications and Allergies Allergies Allergy/AdvReac Type Severity Reaction Status Date / Time No Known Allergies Allergy Unverified 10/23/20 12:44 Home Medications Medication Instructions Recorded Confirmed Last Taken Type Levothyroxine Sodium 150 mcg PO DAILY 10/31/20 10/31/20 Unknown History [Levothyroxine] carvediloL [Coreg] 6.25 mg PO BID 10/31/20 10/31/20 Unknown History lisinopriL [Lisinopril] 10 mg PO DAILY 10/31/20 10/31/20 Unknown History Active Meds: Active Medications Acetaminophen (Acetaminophen 325 Mg Tab) 650 mg PO Q4H PRN PRN Reason: Pain, Mild (1-3) Lipase/Protease/Amylase (Lipase 10,500/Protease 25,000/Amylase 43,750 (Units) Dr Fernández) 1 each FEEDTUBE PRN PRN PRN Reason: For Clogged Feeding Tube Ascorbic Acid (Ascorbic Acid 500 Mg Tab) 500 mg PO BID [facility] Last Admin: 11/05/20 10:44 Dose: 500 mg Documented by: Aspirin (Aspirin 325 Mg Tab) 325 mg PO QDAY [facility] Last Admin: 11/05/20 10:44 Dose: 325 mg Documented by: Atorvastatin Calcium (Atorvastatin 40 Mg Tab) 40 mg PO QHS ALEX Last Admin: 11/04/20 21:25 Dose: 40 mg Documented by: Bisacodyl (Bisacodyl 10 Mg Rect Supp) 10 mg [place] QDAY PRN PRN Reason: Constipation Cholecalciferol (Cholecalciferol (Vit D3) 1000 Unit (25 Mcg) Tab) 1,000 unit PO QDAY ALEX Last Admin: 11/05/20 10:44 Dose: 1,000 unit Documented by: Docusate Sodium (Docusate Sodium 100 Mg Cap) 100 mg PO BID ALEX Last Admin: 11/05/20 10:47 Dose: Not Given Documented by: Famotidine (Famotidine 20 Mg/2 Ml Inj) 20 mg IV DAILY ALEX Last Admin: 11/05/20 10:43 Dose: 20 mg Documented by: Fentanyl (Fentanyl 100 Mcg/2 Ml Inj) 50 mcg IV Q10MIN PRN PRN Reason: ANALGESIA Heparin Sodium (Porcine) (Heparin 10,000 Units/10 Ml Vial) 3,900 unit 40 unit/kg (3900 unit) IV Q6H PRN PRN Reason: Anti-Xa Assay < 0.1 units/ml Hydrophilic Ointment (Lip Therapy Vaseline) 1 applic TP Q2HR PRN PRN Reason: Dry Lips Heparin Sodium/Sodium Chloride (Heparin/ 0.45% Nacl-25,000 Unit/500 Ml) 25,000 unit in 500 mls @ 29 mls/hr IV TITR ALEX; Protocol Last Titration: 11/05/20 14:30 Dose: 550 units/hr, 11 mls/hr Documented by: Sodium Chloride (Nacl 0.9% 500 Ml) 500 mls @ 125 mls/hr IV DIRECT ALEX Last Admin: 11/04/20 05:06 Dose: 125 mls/hr Documented by: Fentanyl Citrate (Fentanyl Drip Premix) 2,000 mcg in 100 mls @ 4.86 mls/hr IV TITR ALEX; Protocol Last Titration: 11/05/20 14:00 Dose: 2 mcg/kg/hr, 9.72 mls/hr Documented by: NORepinephrine/NS 8 MG-250 ML (Norepinephrine/Ns 8 Mg-250 Ml (Double Conc)) 8 mg in 250 mls @ 3.75 mls/hr IV TITRATE ALEX; Protocol Last Admin: 11/05/20 14:42 Dose: 6 mcg/min, 11.25 mls/hr Documented by: Cefepime HCl (Cefepime/Ns 2 Gm/100 Ml) 2 gm in 100 mls @ 200 mls/hr IV Q12H [facility]; Protocol Last Admin: 11/05/20 10:58 Dose: 200 mls/hr Documented by: Sodium Chloride (Nacl 0.9% 1000 Ml) 1,000 mls @ 125 mls/hr IV DIRECT ALEX Stop: 11/06/20 01:29 Last Admin: 11/05/20 01:44 Dose: 125 mls/hr Documented by: Magnesium Citrate (Magnesium Citrate 300 Ml Oral Liqd) 300 ml PO Q4H ALEX Stop: 11/05/20 20:01 Last Admin: 11/05/20 15:40 Dose: 300 ml Documented by: Magnesium Hydroxide (Magnesium Hydroxide (Mom) Oral Liqd Udc) 30 ml PO Q4H PRN PRN Reason: Constipation Last Admin: 11/05/20 05:02 Dose: 30 ml Documented by: Metoclopramide HCl (Metoclopramide 10 Mg Tab) 10 mg PO Q6H PRN PRN Reason: Nausea And Vomiting Metoprolol Tartrate (Metoprolol Tartrate 25 Mg Tab) 6.25 mg PO BID [facility] Last Admin: 11/05/20 10:46 Dose: Not Given Documented by: Multi-Ingred Cream/Lotion/Oil/Oint (Mineral Oil/Petrolatum, White Ophth Oint 3.5 Gm) 1 applic OU Q4HR PRN PRN Reason: Dry Eye(s) Ondansetron HCl (Ondansetron 4 Mg/2 Ml Inj) 4 mg IV Q8H PRN PRN Reason: Nausea And Vomiting Oxycodone/Acetaminophen (Oxycodone /Acetaminophen 5-325mg Tab) 1 tab PO Q6H PRN PRN Reason: Pain, Moderate (4-6) Promethazine HCl (Promethazine 25 Mg Rect Supp) 25 mg [place] Q6H PRN PRN Reason: Nausea And Vomiting Simple Syrup (Simple Syrup 15 Ml) 15 ml FEEDTUBE PRN PRN PRN Reason: Hypoglycemia Simple Syrup (Simple Syrup 15 Ml) 30 ml FEEDTUBE PRN PRN PRN Reason: Hypoglycemia Sodium Bicarbonate (Sodium Bicarbonate 325 Mg Tab) 325 mg FEEDTUBE PRN PRN PRN Reason: For Clogged Feeding Tube Sodium Chloride (Sodium Chloride 0.9% 10 Ml Flush Syringe) 10 ml IV PRN PRN PRN Reason: LINE FLUSH Last Admin: 11/04/20 21:25 Dose: 10 ml Documented by: Zinc Sulfate (Zinc Sulfate 220 Mg Cap) 220 mg PO BID ALEX Last Admin: 11/05/20 10:44 Dose: 220 mg Documented by: Exam - Constitutional Vitals: Last Vital Signs Temp 98.9 F 11/05/20 17:00 Pulse 84 11/05/20 16:15 Resp 14 11/05/20 16:00 BP 95/49 11/05/20 16:15 Pulse Ox 100 11/05/20 16:15 Results - Labs lab Results: Laboratory Results - last 24 hr 11/02/20 11/04/20 11/04/20 19:55 12:50 17:40 WBC RBC Hgb Hct MCV MCH MCHC RDW Plt Count Add Manual Diff Total Counted Seg Neutrophils % Seg Neuts % (Manual) Lymphocytes % (Manual) Monocytes % (Manual) Nucleated RBC % Seg Neutrophils # Man Band Neutrophils # Lymphocytes # (Manual) Abs React Lymphs (Man) Monocytes # (Manual) Eosinophils # (Manual) Basophils # (Manual) Metamyelocytes # Myelocytes # Promyelocytes # Blast Cells # WBC Morphology Hypersegmented Neuts Hyposegmented Neuts Hypogranular Neuts Smudge Cells Toxic Granulation Toxic Vacuolation Dohle Bodies Pelger-Huet Anomaly Demario Rods Platelet Estimate Clumped Platelets Plt Clumps, EDTA Large Platelets Giant Platelets Platelet Satelliting Plt Morphology Comment RBC Morphology Dimorphic RBCs Polychromasia Hypochromasia Poikilocytosis Anisocytosis Microcytosis Macrocytosis Spherocytes Pappenheimer Bodies Sickle Cells Target Cells Tear Drop Cells Ovalocytes Helmet Cells [place] Bodies [place] Rings Caryn Cells Bite Cells Crenated Cell Elliptocytes Acanthocytes (Spur) Rouleaux Hemoglobin C Crystals Schistocytes Malaria parasites Lico Bodies Hem Pathologist Commnt PT 16.2 H INR 1.30 H APTT 106.0 H* Heparin Anti-Xa Level ABG pH POC ABG pCO2 POC ABG pO2 POC ABG HCO3 ABG O2 Saturation POC ABG Base Excess ABG Hemoglobin ABG Oxyhemoglobin ABG Methemoglobin ABG Sodium ABG Potassium ABG Chloride ABG Glucose Carboxyhemoglobin FiO2 % Sodium Potassium Chloride Carbon Dioxide Anion Gap BUN Creatinine Estimated GFR BUN/Creatinine Ratio Glucose POC Glucose 135 H Calcium Arterial Blood Glucose Arterial Blood Ionized Calcium Urine Eosinophils None seen 11/04/20 11/04/20 11/04/20 19:55 19:55 19:55 WBC RBC Hgb 9.7 L Hct 28.3 L D MCV MCH MCHC RDW Plt Count Add Manual Diff Total Counted Seg Neutrophils % Seg Neuts % (Manual) Lymphocytes % (Manual) Monocytes % (Manual) Nucleated RBC % Seg Neutrophils # Man Band Neutrophils # Lymphocytes # (Manual) Abs React Lymphs (Man) Monocytes # (Manual) Eosinophils # (Manual) Basophils # (Manual) Metamyelocytes # Myelocytes # Promyelocytes # Blast Cells # WBC Morphology Hypersegmented Neuts Hyposegmented Neuts Hypogranular Neuts Smudge Cells Toxic Granulation Toxic Vacuolation Dohle Bodies Pelger-Huet Anomaly Demario Rods Platelet Estimate Clumped Platelets Plt Clumps, EDTA Large Platelets Giant Platelets Platelet Satelliting Plt Morphology Comment RBC Morphology Dimorphic RBCs Polychromasia Hypochromasia Poikilocytosis Anisocytosis Microcytosis Macrocytosis Spherocytes Pappenheimer Bodies Sickle Cells Target Cells Tear Drop Cells Ovalocytes Helmet Cells [place] Bodies [place] Rings Denbo Cells Bite Cells Crenated Cell Elliptocytes Acanthocytes (Spur) Rouleaux Hemoglobin C Crystals Schistocytes Malaria parasites [place] Bodies Hem Pathologist Commnt PT INR APTT Heparin Anti-Xa Level 0.68 ABG pH POC ABG pCO2 POC ABG pO2 POC ABG HCO3 ABG O2 Saturation POC ABG Base Excess ABG Hemoglobin ABG Oxyhemoglobin ABG Methemoglobin ABG Sodium ABG Potassium ABG Chloride ABG Glucose Carboxyhemoglobin FiO2 % Sodium Potassium 4.8 Chloride Carbon Dioxide Anion Gap BUN Creatinine Estimated GFR BUN/Creatinine Ratio Glucose POC Glucose Calcium Arterial Blood Glucose Arterial Blood Ionized Calcium Urine Eosinophils 11/04/20 11/05/20 11/05/20 23:20 00:53 02:16 WBC RBC Hgb 9.0 L Hct 26.0 L MCV MCH MCHC RDW Plt Count Add Manual Diff Total Counted Seg Neutrophils % Seg Neuts % (Manual) Lymphocytes % (Manual) Monocytes % (Manual) Nucleated RBC % Seg Neutrophils # Man Band Neutrophils # Lymphocytes # (Manual) Abs React Lymphs (Man) Monocytes # (Manual) Eosinophils # (Manual) Basophils # (Manual) Metamyelocytes # Myelocytes # Promyelocytes # Blast Cells # WBC Morphology Hypersegmented Neuts Hyposegmented Neuts Hypogranular Neuts Smudge Cells Toxic Granulation Toxic Vacuolation Dohle Bodies Pelger-Huet Anomaly Demario Rods Platelet Estimate Clumped Platelets Plt Clumps, EDTA Large Platelets Giant Platelets Platelet Satelliting Plt Morphology Comment RBC Morphology Dimorphic RBCs Polychromasia Hypochromasia Poikilocytosis Anisocytosis Microcytosis Macrocytosis Spherocytes Pappenheimer Bodies Sickle Cells Target Cells Tear Drop Cells Ovalocytes Helmet Cells [place] Bodies [place] Rings Denbo Cells Bite Cells Crenated Cell Elliptocytes Acanthocytes (Spur) Rouleaux Hemoglobin C Crystals Schistocytes Malaria parasites [place] Bodies Hem Pathologist Commnt PT INR APTT Heparin Anti-Xa Level 0.99 H ABG pH POC ABG pCO2 POC ABG pO2 POC ABG HCO3 ABG O2 Saturation POC ABG Base Excess ABG Hemoglobin ABG Oxyhemoglobin ABG Methemoglobin ABG Sodium ABG Potassium ABG Chloride ABG Glucose Carboxyhemoglobin FiO2 % Sodium Potassium Chloride Carbon Dioxide Anion Gap BUN Creatinine Estimated GFR BUN/Creatinine Ratio Glucose POC Glucose 143 H Calcium Arterial Blood Glucose Arterial Blood Ionized Calcium Urine Eosinophils 11/05/20 11/05/20 11/05/20 03:16 03:37 03:37 WBC 33.5 H RBC 3.01 L Hgb 8.8 L Hct 25.6 L MCV 85 MCH 29 MCHC 34 RDW 14.6 Plt Count 153 Add Manual Diff Complete Total Counted 200 Seg Neutrophils % Small Animal Caretaker Seg Neuts % (Manual) 93.5 H Lymphocytes % (Manual) 3.5 L Monocytes % (Manual) 3.0 Nucleated RBC % Not Reportable Seg Neutrophils # Man 31.3 H Band Neutrophils # 0.0 Lymphocytes # (Manual) 1.2 Abs React Lymphs (Man) 0.0 Monocytes # (Manual) 1.0 H Eosinophils # (Manual) 0.0 Basophils # (Manual) 0.0 Metamyelocytes # 0.0 Myelocytes # 0.0 Promyelocytes # 0.0 Blast Cells # 0.0 WBC Morphology Not Reportable Hypersegmented Neuts Not Reportable Hyposegmented Neuts Not Reportable Hypogranular Neuts Not Reportable Smudge Cells Not Reportable Toxic Granulation 1+ Toxic Vacuolation Not Reportable Dohle Bodies Not Reportable Pelger-Huet Anomaly Not Reportable Demario Rods Not Reportable Platelet Estimate Consistent w auto Clumped Platelets Not Reportable Plt Clumps, EDTA Not Reportable Large Platelets Not Reportable Giant Platelets Not Reportable Platelet Satelliting Not Reportable Plt Morphology Comment Not Reportable RBC Morphology Not Reportable Dimorphic RBCs Not Reportable Polychromasia Not Reportable Hypochromasia Not Reportable Poikilocytosis Not Reportable Anisocytosis 1+ Microcytosis Not Reportable Macrocytosis Not Reportable Spherocytes Not Reportable Pappenheimer Bodies Not Reportable Sickle Cells Not Reportable Target Cells Not Reportable Tear Drop Cells Not Reportable Ovalocytes Not Reportable Helmet Cells Not Reportable [place] Bodies Not Reportable [place] Rings Not Reportable Caryn Cells Not Reportable Bite Cells Not Reportable Crenated Cell Not Reportable Elliptocytes Not Reportable Acanthocytes (Spur) Not Reportable Rouleaux Not Reportable Hemoglobin C Crystals Not Reportable Schistocytes Not Reportable Malaria parasites Not Reportable Lico Bodies Not Reportable Hem Pathologist Commnt No PT INR APTT Heparin Anti-Xa Level ABG pH 7.402 POC ABG pCO2 34.3 POC ABG pO2 131.3 H POC ABG HCO3 20.9 ABG O2 Saturation 98.5 POC ABG Base Excess -3.4 ABG Hemoglobin 9.2 L ABG Oxyhemoglobin 97.9 ABG Methemoglobin 0.3 ABG Sodium 131.6 L ABG Potassium 4.4 ABG Chloride 110.0 H ABG Glucose 168 H Carboxyhemoglobin 0.3 L FiO2 % 30.0 Sodium 140 D Potassium 4.6 Chloride 109.5 H Carbon Dioxide 25 Anion Gap 10 BUN 55 H Creatinine 2.1 H Estimated GFR 38 BUN/Creatinine Ratio 26 Glucose 157 H POC Glucose Calcium 7.0 L Arterial Blood Glucose 168 H Arterial Blood Ionized Calcium 4.4 L Urine Eosinophils 11/05/20 11/05/20 11/05/20 05:19 11:30 11:40 WBC RBC Hgb Hct MCV MCH MCHC RDW Plt Count Add Manual Diff Total Counted Seg Neutrophils % Seg Neuts % (Manual) Lymphocytes % (Manual) Monocytes % (Manual) Nucleated RBC % Seg Neutrophils # Man Band Neutrophils # Lymphocytes # (Manual) Abs React Lymphs (Man) Monocytes # (Manual) Eosinophils # (Manual) Basophils # (Manual) Metamyelocytes # Myelocytes # Promyelocytes # Blast Cells # WBC Morphology Hypersegmented Neuts Hyposegmented Neuts Hypogranular Neuts Smudge Cells Toxic Granulation Toxic Vacuolation Dohle Bodies Pelger-Huet Anomaly Demario Rods Platelet Estimate Clumped Platelets Plt Clumps, EDTA Large Platelets Giant Platelets Platelet Satelliting Plt Morphology Comment RBC Morphology Dimorphic RBCs Polychromasia Hypochromasia Poikilocytosis Anisocytosis Microcytosis Macrocytosis Spherocytes Pappenheimer Bodies Sickle Cells Target Cells Tear Drop Cells Ovalocytes Helmet Cells [place] Bodies [place] Rings Caryn Cells Bite Cells Crenated Cell Elliptocytes Acanthocytes (Spur) Rouleaux Hemoglobin C Crystals Schistocytes Malaria parasites [place] Bodies Hem Pathologist Commnt PT INR APTT Heparin Anti-Xa Level 0.43 ABG pH POC ABG pCO2 POC ABG pO2 POC ABG HCO3 ABG O2 Saturation POC ABG Base Excess ABG Hemoglobin ABG Oxyhemoglobin ABG Methemoglobin ABG Sodium ABG Potassium ABG Chloride ABG Glucose Carboxyhemoglobin FiO2 % Sodium Potassium Chloride Carbon Dioxide Anion Gap BUN Creatinine Estimated GFR BUN/Creatinine Ratio Glucose POC Glucose 142 H 93 Calcium Arterial Blood Glucose Arterial Blood Ionized Calcium Urine Eosinophils
[2020-11-05] MEDS: ARGATROBAN 250 MG in SODIUM CHLORIDE 0.9% 250ML 247.5 ML IV SCH ×2 (18:50→19:31)
[2020-11-05 19:30] LABS: Alanine Aminotransferase 36 units/L (7-56); Albumin 2.1 g/dL (3.9-5)
[2020-11-05] MEDS: ONDANSETRON 4 MG/2 ML INJ IV PRN (19:38)
[2020-11-05 19:44] LABS: Bilirubin,Direct < 0.2 mg/dL (0-0.2)
--- NOTE | 2020-11-06 00:33 | Hem/Onc Consultation ---
History of Present Illness - History of Present Illness HEME ONC CONSULT TELEVISIT A/V CART UNAVAILABLE discussed with pt's nurse 70yo man with NICM/ICM EF 30-35%, recent R leg arterial thrombosis, now with stroke and L atrial clot was looking toward acute rehab-->but setback, now intubated, ARF, hypotension--.vasopressors on and off IV heparin today started argatroban because HIT possible-->then had oral bleeding-->stopped argatroban has been on vasopressors DATA REVIEWED BELOW. IMP: recent clotting-presumed clotting tendency recent decompensation and ARF could be due to HIT high WBC is "reactive"--not heme malignancy REC: labs to include pF4 Ab testing, Hgb electrophoresis, cardiolipin ab off anticoag for now-->eventually resume argatroban steroid pulse Laboratory Last Values WBC 33.5 K/mm3 (4.5-11.0) H 11/05/20 03:37 Hgb 8.8 gm/dl (11.8-15.2) L 11/05/20 03:37 Hct 25.6 % (35.5-45.6) L 11/05/20 03:37 Plt Count 153 K/mm3 (140-440) 11/05/20 03:37 PT 16.2 Sec. (12.2-14.9) H 11/02/20 19:55 INR 1.30 (0.87-1.13) H 11/02/20 19:55 APTT 63.8 Sec. (24.2-36.6) H* 11/05/20 21:20 D-Dimer 4139.61 ng/mlDDU (0-234) H 10/23/20 18:23 Crossmatch See Detail 11/02/20 15:00 Past History Past Medical History: hypertension, hypothyroidism, other (See HPI) Past Surgical History: thyroidectomy Social history: single. denies: smoking, alcohol abuse Family history: hypertension Medications and Allergies Allergies Allergy/AdvReac Type Severity Reaction Status Date / Time No Known Allergies Allergy Unverified 10/23/20 12:44 Home Medications Medication Instructions Recorded Confirmed Last Taken Type Levothyroxine Sodium 150 mcg PO DAILY 10/31/20 10/31/20 Unknown History [Levothyroxine] carvediloL [Coreg] 6.25 mg PO BID 10/31/20 10/31/20 Unknown History lisinopriL [Lisinopril] 10 mg PO DAILY 10/31/20 10/31/20 Unknown History Active Meds: Active Medications Acetaminophen (Acetaminophen 325 Mg Tab) 650 mg PO Q4H PRN PRN Reason: Pain, Mild (1-3) Lipase/Protease/Amylase (Lipase 10,500/Protease 25,000/Amylase 43,750 (Units) Dr Cap) 1 each FEEDTUBE PRN PRN PRN Reason: For Clogged Feeding Tube Ascorbic Acid (Ascorbic Acid 500 Mg Tab) 500 mg PO BID [facility] Last Admin: 11/05/20 21:36 Dose: Not Given Documented by: Aspirin (Aspirin 325 Mg Tab) 325 mg PO QDAY [facility] Last Admin: 11/05/20 10:44 Dose: 325 mg Documented by: Atorvastatin Calcium (Atorvastatin 40 Mg Tab) 40 mg PO QHS [facility] Last Admin: 11/05/20 21:35 Dose: Not Given Documented by: Bisacodyl (Bisacodyl 10 Mg Rect Supp) 10 mg [place] QDAY PRN PRN Reason: Constipation Cholecalciferol (Cholecalciferol (Vit D3) 1000 Unit (25 Mcg) Tab) 1,000 unit PO QDAY [facility] Last Admin: 11/05/20 10:44 Dose: 1,000 unit Documented by: Docusate Sodium (Docusate Sodium 100 Mg Cap) 100 mg PO BID [facility] Last Admin: 11/05/20 21:35 Dose: Not Given Documented by: Famotidine (Famotidine 20 Mg/2 Ml Inj) 20 mg IV DAILY [facility] Last Admin: 11/05/20 10:43 Dose: 20 mg Documented by: Fentanyl (Fentanyl 100 Mcg/2 Ml Inj) 50 mcg IV Q10MIN PRN PRN Reason: ANALGESIA Hydrophilic Ointment (Lip Therapy Vaseline) 1 applic TP Q2HR PRN PRN Reason: Dry Lips Sodium Chloride (Nacl 0.9% 500 Ml) 500 mls @ 125 mls/hr IV DIRECT [facility] Last Admin: 11/04/20 05:06 Dose: 125 mls/hr Documented by: Fentanyl Citrate (Fentanyl Drip Premix) 2,000 mcg in 100 mls @ 4.86 mls/hr IV TITR [facility]; Protocol Last Admin: 11/05/20 19:15 Dose: 1 mcg/kg/hr, 4.86 mls/hr Documented by: NORepinephrine/NS 8 MG-250 ML (Norepinephrine/Ns 8 Mg-250 Ml (Double Conc)) 8 mg in 250 mls @ 3.75 mls/hr IV TITRATE [facility]; Protocol Last Titration: 11/05/20 21:42 Dose: 10 mcg/min, 18.75 mls/hr Documented by: Cefepime HCl (Cefepime/Ns 2 Gm/100 Ml) 2 gm in 100 mls @ 200 mls/hr IV Q12H [facility]; Protocol Last Admin: 11/05/20 10:58 Dose: 200 mls/hr Documented by: Sodium Chloride (Nacl 0.9% 1000 Ml) 1,000 mls @ 125 mls/hr IV DIRECT [facility] Stop: 11/06/20 01:29 Last Admin: 11/05/20 01:44 Dose: 125 mls/hr Documented by: Argatroban 250 mg/ Sodium (Chloride) 250 mls @ 3.168 mls/hr IV TITR [facility]; Protocol Last Titration: 11/05/20 22:06 Dose: 0 mcg/kg/min, 0 mls/hr Documented by: Magnesium Hydroxide (Magnesium Hydroxide (Mom) Oral Liqd Udc) 30 ml PO Q4H PRN PRN Reason: Constipation Last Admin: 11/05/20 05:02 Dose: 30 ml Documented by: Methylprednisolone Sodium Succinate (Methylprednisolone Sod Succinate 125 Mg/2 Ml Inj) 80 mg IV Q12H [facility] Stop: 11/07/20 17:59 Metoclopramide HCl (Metoclopramide 10 Mg Tab) 10 mg PO Q6H PRN PRN Reason: Nausea And Vomiting Metoprolol Tartrate (Metoprolol Tartrate 25 Mg Tab) 6.25 mg PO BID [facility] Last Admin: 11/05/20 21:35 Dose: Not Given Documented by: Multi-Ingred Cream/Lotion/Oil/Oint (Mineral Oil/Petrolatum, White Ophth Oint 3.5 Gm) 1 applic OU Q4HR PRN PRN Reason: Dry Eye(s) Ondansetron HCl (Ondansetron 4 Mg/2 Ml Inj) 4 mg IV Q8H PRN PRN Reason: Nausea And Vomiting Last Admin: 11/05/20 19:38 Dose: 4 mg Documented by: Oxycodone/Acetaminophen (Oxycodone /Acetaminophen 5-325mg Tab) 1 tab PO Q6H PRN PRN Reason: Pain, Moderate (4-6) Promethazine HCl (Promethazine 25 Mg Rect Supp) 25 mg [place] Q6H PRN PRN Reason: Nausea And Vomiting Simple Syrup (Simple Syrup 15 Ml) 15 ml FEEDTUBE PRN PRN PRN Reason: Hypoglycemia Simple Syrup (Simple Syrup 15 Ml) 30 ml FEEDTUBE PRN PRN PRN Reason: Hypoglycemia Sodium Bicarbonate (Sodium Bicarbonate 325 Mg Tab) 325 mg FEEDTUBE PRN PRN PRN Reason: For Clogged Feeding Tube Sodium Chloride (Sodium Chloride 0.9% 10 Ml Flush Syringe) 10 ml IV PRN PRN PRN Reason: LINE FLUSH Last Admin: 11/04/20 21:25 Dose: 10 ml Documented by: Zinc Sulfate (Zinc Sulfate 220 Mg Cap) 220 mg PO BID [facility] Last Admin: 11/05/20 21:36 Dose: Not Given Documented by: Exam - Constitutional Vitals: Last Vital Signs Temp 97.9 F 11/05/20 23:49 Pulse 82 11/05/20 23:09 Resp 11 L 11/05/20 22:00 BP 120/76 11/05/20 23:09 Pulse Ox 100 11/05/20 23:09 Results - Labs lab Results: Laboratory Results - last 24 hr 11/04/20 11/05/20 11/05/20 23:20 00:53 02:16 WBC RBC Hgb 9.0 L Hct 26.0 L MCV MCH MCHC RDW Plt Count Add Manual Diff Total Counted Seg Neutrophils % Seg Neuts % (Manual) Lymphocytes % (Manual) Monocytes % (Manual) Nucleated RBC % Seg Neutrophils # Man Band Neutrophils # Lymphocytes # (Manual) Abs React Lymphs (Man) Monocytes # (Manual) Eosinophils # (Manual) Basophils # (Manual) Metamyelocytes # Myelocytes # Promyelocytes # Blast Cells # WBC Morphology Hypersegmented Neuts Hyposegmented Neuts Hypogranular Neuts Smudge Cells Toxic Granulation Toxic Vacuolation Dohle Bodies Pelger-Huet Anomaly Demario Rods Platelet Estimate Clumped Platelets Plt Clumps, EDTA Large Platelets Giant Platelets Platelet Satelliting Plt Morphology Comment RBC Morphology Dimorphic RBCs Polychromasia Hypochromasia Poikilocytosis Anisocytosis Microcytosis Macrocytosis Spherocytes Pappenheimer Bodies Sickle Cells Target Cells Tear Drop Cells Ovalocytes Helmet Cells Oliva-Pollock Bodies [place] Rings Caryn Cells Bite Cells Crenated Cell Elliptocytes Acanthocytes (Spur) Rouleaux Hemoglobin C Crystals Schistocytes Malaria parasites Lico Bodies Hem Pathologist Commnt APTT Heparin Anti-Xa Level 0.99 H ABG pH POC ABG pCO2 POC ABG pO2 POC ABG HCO3 ABG O2 Saturation POC ABG Base Excess ABG Hemoglobin ABG Oxyhemoglobin ABG Methemoglobin ABG Sodium ABG Potassium ABG Chloride ABG Glucose Carboxyhemoglobin FiO2 % Sodium Potassium Chloride Carbon Dioxide Anion Gap BUN Creatinine Estimated GFR BUN/Creatinine Ratio Glucose POC Glucose 143 H Calcium Total Bilirubin Direct Bilirubin Indirect Bilirubin AST ALT Alkaline Phosphatase Total Protein Albumin Albumin/Globulin Ratio Arterial Blood Glucose Arterial Blood Ionized Calcium 11/05/20 11/05/20 11/05/20 03:16 03:37 03:37 WBC 33.5 H RBC 3.01 L Hgb 8.8 L Hct 25.6 L MCV 85 MCH 29 MCHC 34 RDW 14.6 Plt Count 153 Add Manual Diff Complete Total Counted 200 Seg Neutrophils % [place] [place] [employer] Seg Neuts % (Manual) 93.5 H Lymphocytes % (Manual) 3.5 L Monocytes % (Manual) 3.0 Nucleated RBC % Not Reportable Seg Neutrophils # Man 31.3 H Band Neutrophils # 0.0 Lymphocytes # (Manual) 1.2 Abs React Lymphs (Man) 0.0 Monocytes # (Manual) 1.0 H Eosinophils # (Manual) 0.0 Basophils # (Manual) 0.0 Metamyelocytes # 0.0 Myelocytes # 0.0 Promyelocytes # 0.0 Blast Cells # 0.0 WBC Morphology Not Reportable Hypersegmented Neuts Not Reportable Hyposegmented Neuts Not Reportable Hypogranular Neuts Not Reportable Smudge Cells Not Reportable Toxic Granulation 1+ Toxic Vacuolation Not Reportable Dohle Bodies Not Reportable Pelger-Huet Anomaly Not Reportable Demario Rods Not Reportable Platelet Estimate Consistent w auto Clumped Platelets Not Reportable Plt Clumps, EDTA Not Reportable Large Platelets Not Reportable Giant Platelets Not Reportable Platelet Satelliting Not Reportable Plt Morphology Comment Not Reportable RBC Morphology Not Reportable Dimorphic RBCs Not Reportable Polychromasia Not Reportable Hypochromasia Not Reportable Poikilocytosis Not Reportable Anisocytosis 1+ Microcytosis Not Reportable Macrocytosis Not Reportable Spherocytes Not Reportable Pappenheimer Bodies Not Reportable Sickle Cells Not Reportable Target Cells Not Reportable Tear Drop Cells Not Reportable Ovalocytes Not Reportable Helmet Cells Not Reportable Oliva-Pollock Bodies Not Reportable [place] Rings Not Reportable Caryn Cells Not Reportable Bite Cells Not Reportable Crenated Cell Not Reportable Elliptocytes Not Reportable Acanthocytes (Spur) Not Reportable Rouleaux Not Reportable Hemoglobin C Crystals Not Reportable Schistocytes Not Reportable Malaria parasites Not Reportable Lico Bodies Not Reportable Hem Pathologist Commnt No APTT Heparin Anti-Xa Level ABG pH 7.402 POC ABG pCO2 34.3 POC ABG pO2 131.3 H POC ABG HCO3 20.9 ABG O2 Saturation 98.5 POC ABG Base Excess -3.4 ABG Hemoglobin 9.2 L ABG Oxyhemoglobin 97.9 ABG Methemoglobin 0.3 ABG Sodium 131.6 L ABG Potassium 4.4 ABG Chloride 110.0 H ABG Glucose 168 H Carboxyhemoglobin 0.3 L FiO2 % 30.0 Sodium 140 D Potassium 4.6 Chloride 109.5 H Carbon Dioxide 25 Anion Gap 10 BUN 55 H Creatinine 2.1 H Estimated GFR 38 BUN/Creatinine Ratio 26 Glucose 157 H POC Glucose Calcium 7.0 L Total Bilirubin Direct Bilirubin Indirect Bilirubin AST ALT Alkaline Phosphatase Total Protein Albumin Albumin/Globulin Ratio Arterial Blood Glucose 168 H Arterial Blood Ionized Calcium 4.4 L 11/05/20 11/05/20 11/05/20 05:19 11:30 11:40 WBC RBC Hgb Hct MCV MCH MCHC RDW Plt Count Add Manual Diff Total Counted Seg Neutrophils % Seg Neuts % (Manual) Lymphocytes % (Manual) Monocytes % (Manual) Nucleated RBC % Seg Neutrophils # Man Band Neutrophils # Lymphocytes # (Manual) Abs React Lymphs (Man) Monocytes # (Manual) Eosinophils # (Manual) Basophils # (Manual) Metamyelocytes # Myelocytes # Promyelocytes # Blast Cells # WBC Morphology Hypersegmented Neuts Hyposegmented Neuts Hypogranular Neuts Smudge Cells Toxic Granulation Toxic Vacuolation Dohle Bodies Pelger-Huet Anomaly Demario Rods Platelet Estimate Clumped Platelets Plt Clumps, EDTA Large Platelets Giant Platelets Platelet Satelliting Plt Morphology Comment RBC Morphology Dimorphic RBCs Polychromasia Hypochromasia Poikilocytosis Anisocytosis Microcytosis Macrocytosis Spherocytes Pappenheimer Bodies Sickle Cells Target Cells Tear Drop Cells Ovalocytes Helmet Cells Oliva-Pollock Bodies [place] Rings [place] Cells Bite Cells Crenated Cell Elliptocytes Acanthocytes (Spur) Rouleaux Hemoglobin C Crystals Schistocytes Malaria parasites Lico Bodies Hem Pathologist Commnt APTT Heparin Anti-Xa Level 0.43 ABG pH POC ABG pCO2 POC ABG pO2 POC ABG HCO3 ABG O2 Saturation POC ABG Base Excess ABG Hemoglobin ABG Oxyhemoglobin ABG Methemoglobin ABG Sodium ABG Potassium ABG Chloride ABG Glucose Carboxyhemoglobin FiO2 % Sodium Potassium Chloride Carbon Dioxide Anion Gap BUN Creatinine Estimated GFR BUN/Creatinine Ratio Glucose POC Glucose 142 H 93 Calcium Total Bilirubin Direct Bilirubin Indirect Bilirubin AST ALT Alkaline Phosphatase Total Protein Albumin Albumin/Globulin Ratio Arterial Blood Glucose Arterial Blood Ionized Calcium 11/05/20 11/05/20 11/05/20 18:18 19:00 21:20 WBC RBC Hgb Hct MCV MCH MCHC RDW Plt Count Add Manual Diff Total Counted Seg Neutrophils % Seg Neuts % (Manual) Lymphocytes % (Manual) Monocytes % (Manual) Nucleated RBC % Seg Neutrophils # Man Band Neutrophils # Lymphocytes # (Manual) Abs React Lymphs (Man) Monocytes # (Manual) Eosinophils # (Manual) Basophils # (Manual) Metamyelocytes # Myelocytes # Promyelocytes # Blast Cells # WBC Morphology Hypersegmented Neuts Hyposegmented Neuts Hypogranular Neuts Smudge Cells Toxic Granulation Toxic Vacuolation Dohle Bodies Pelger-Huet Anomaly Demario Rods Platelet Estimate Clumped Platelets Plt Clumps, EDTA Large Platelets Giant Platelets Platelet Satelliting Plt Morphology Comment RBC Morphology Dimorphic RBCs Polychromasia Hypochromasia Poikilocytosis Anisocytosis Microcytosis Macrocytosis Spherocytes Pappenheimer Bodies Sickle Cells Target Cells Tear Drop Cells Ovalocytes Helmet Cells Oliva-Pollock Bodies [place] Rings Caryn Cells Bite Cells Crenated Cell Elliptocytes Acanthocytes (Spur) Rouleaux Hemoglobin C Crystals Schistocytes Malaria parasites Lico Bodies Hem Pathologist Commnt APTT 63.8 H* Heparin Anti-Xa Level ABG pH POC ABG pCO2 POC ABG pO2 POC ABG HCO3 ABG O2 Saturation POC ABG Base Excess ABG Hemoglobin ABG Oxyhemoglobin ABG Methemoglobin ABG Sodium ABG Potassium ABG Chloride ABG Glucose Carboxyhemoglobin FiO2 % Sodium Potassium Chloride Carbon Dioxide Anion Gap BUN Creatinine Estimated GFR BUN/Creatinine Ratio Glucose POC Glucose 124 H Calcium Total Bilirubin 0.20 Direct Bilirubin < 0.2 Indirect Bilirubin 0.0 AST 25 ALT 36 Alkaline Phosphatase 40 Total Protein 4.3 L Albumin 2.1 L Albumin/Globulin Ratio 1.0 Arterial Blood Glucose Arterial Blood Ionized Calcium 11/05/20 23:30 WBC RBC Hgb Hct MCV MCH MCHC RDW Plt Count Add Manual Diff Total Counted Seg Neutrophils % Seg Neuts % (Manual) Lymphocytes % (Manual) Monocytes % (Manual) Nucleated RBC % Seg Neutrophils # Man Band Neutrophils # Lymphocytes # (Manual) Abs React Lymphs (Man) Monocytes # (Manual) Eosinophils # (Manual) Basophils # (Manual) Metamyelocytes # Myelocytes # Promyelocytes # Blast Cells # WBC Morphology Hypersegmented Neuts Hyposegmented Neuts Hypogranular Neuts Smudge Cells Toxic Granulation Toxic Vacuolation Dohle Bodies Pelger-Huet Anomaly Demario Rods Platelet Estimate Clumped Platelets Plt Clumps, EDTA Large Platelets Giant Platelets Platelet Satelliting Plt Morphology Comment RBC Morphology Dimorphic RBCs Polychromasia Hypochromasia Poikilocytosis Anisocytosis Microcytosis Macrocytosis Spherocytes Pappenheimer Bodies Sickle Cells Target Cells Tear Drop Cells Ovalocytes Helmet Cells Oliva-Pollock Bodies [place] Rings Caryn Cells Bite Cells Crenated Cell Elliptocytes Acanthocytes (Spur) Rouleaux Hemoglobin C Crystals Schistocytes Malaria parasites [place] Bodies Hem Pathologist Commnt APTT Heparin Anti-Xa Level ABG pH POC ABG pCO2 POC ABG pO2 POC ABG HCO3 ABG O2 Saturation POC ABG Base Excess ABG Hemoglobin ABG Oxyhemoglobin ABG Methemoglobin ABG Sodium ABG Potassium ABG Chloride ABG Glucose Carboxyhemoglobin FiO2 % Sodium Potassium Chloride Carbon Dioxide Anion Gap BUN Creatinine Estimated GFR BUN/Creatinine Ratio Glucose POC Glucose 156 H Calcium Total Bilirubin Direct Bilirubin Indirect Bilirubin AST ALT Alkaline Phosphatase Total Protein Albumin Albumin/Globulin Ratio Arterial Blood Glucose Arterial Blood Ionized Calcium
[2020-11-06] MEDS: CEFEPIME/NS 2 GM/100 ML 2 GM/100 ML BAG IV SCH ×3 (01:14→22:26)
--- NOTE | 2020-11-06 03:05 | XRay Report ---
CHEST 1 VIEW 11/06/2020 1:23 AM INDICATION / CLINICAL INFORMATION: follow up respiratory failure. COMPARISON: One view of the chest from 11/05/2020. FINDINGS: SUPPORT DEVICES: Unchanged. HEART / MEDIASTINUM: Stable. LUNGS / PLEURA: The previously described left basilar nodule is not identified on this study and like ly represented artifact on the prior exam. The lungs are clear. No significant pleural effusion. No p neumothorax. ADDITIONAL FINDINGS: No significant additional findings. IMPRESSION: 1. No acute abnormality of the chest. 2. Additional findings as above. Signer Name: Rafa Parmar MD Signed: 11/06/2020 3:00 AM Workstation Name: [id number]
[2020-11-06] MEDS: ONDANSETRON 4 MG/2 ML INJ IV PRN (03:13)
--- NOTE | 2020-11-06 03:22 | Cat Scan Report ---
CT HEAD WITHOUT CONTRAST INDICATION : altered mental status, HIT, r/o stroke. TECHNIQUE: Axial, coronal and sagittal CT imaging was performed from the skull apex through the skul l base without contrast. All CT scans at this location are performed using CT dose reduction for ALA RA by means of automated exposure control. COMPARISON: MRI brain without contrast from 11/03/2020. CT head without contrast from 11/02/2020. FINDINGS: PARENCHYMA: There are similar changes of infarction along the left frontoparietal and temporoparieta l regions. A larger area of decreased attenuation is noted more superiorly along the left parietal lo be on image 27 of series 2 measuring 2.6 x 1.6 cm. No mass, midline shift, hemorrhage or extra-axial collection is seen. Additional generalized areas of chronic microvascular ischemic change are again n oted throughout the periventricular white matter. VENTRICLES: Symmetric and normal in size. SOFT TISSUES: No significant abnormality of the included soft tissues/orbits. BONES: No acute osseous abnormality. SINUSES: No significant abnormality. ADDITIONAL FINDINGS: None. IMPRESSION: New area of decreased attenuation along the superior left parietal lobe as above is compatible with a n evolving infarction. No intracranial hemorrhage or other acute abnormalities/interval changes are n oted. Signer Name: Rafa Parmar MD Signed: 11/06/2020 3:18 AM Workstation Name: [id number]
[2020-11-06 05:23] LABS: Hematocrit 23.3 % (35.5-45.6); Hemoglobin 7.7 gm/dl (11.8-15.2); Mean Corpuscular HGB Conc 33 % (32-34); Mean Corpuscular Volume 87 fl (84-94); Platelet Count 155 K/mm3 (140-440); Red Blood Count 2.68 M/mm3 (3.65-5.03)
[2020-11-06 05:32] LABS: Calcium 7.3 mg/dL (8.4-10.2)
[2020-11-06 06:49] LABS: Anisocytosis 1+; Burr Cells 2+; Total Cells Counted 100
[2020-11-06 06:50] LABS: Platelet Estimate Consistent w Auto; Schistocytes Rare
[2020-11-06] MEDS: NORepinephrine/NS 8 MG-250 ML 8 MG/250 ML INFUS..BTL IV SCH ×2 (07:39→19:12)
--- NOTE | 2020-11-06 08:30 | Progress Note ---
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 Acute on chronic systolic heart failure exacerbation. Acute hypoxemic respiratory failure. 10/24/2020 Acute CVA with right hemiparesis PT and OT 10/25/2020 Acute CVA with right hemiplegia Rehab consult requested Ejection fraction is 35 to 40% 10/26/2020 patient with acute CVA and right-sided hemiparesis PT evaluated the patient and recommended acute rehab Case management processing the request Possible discharge in 1 to 2 days if stable 10/27/2020; patient is clinically stable, awaiting rehab/SNF placement DC planning per Case management. 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 No new complain. Clinically stable Patient is going for KELLY today. DC planning to rehab/SNF when cleared by neurology. DC planning per case management 10/29/20 patient is doing slightly better. No new complain. Clinically stable, continue physical therapy occupational therapy. Patient is going for KELLY on Sunday. DC planning to rehab/SNF after KELLY on Sunday. DC planning per case management 10/30/20 patient is sitting in chair. No new complain. Clinically stable, continue physical therapy occupational therapy. Patient is going for KELLY on Sunday. Awaiting DC planning to rehab/SNF after KELLY on Sunday. 10/31/20 patient is seen and examined. No new complain. Clinically stable, continue physical therapy occupational therapy. Patient is going for KELLY on Sunday. Awaiting DC planning to rehab/SNF after KELLY on Sunday. 11/01/20 Patient is seen and examined Patient with acute CVA and right-sided hemiparesis Patient is evaluated by PT and recommended acute rehab Patient is going for KELLY today Patient is waiting for DC planning to rehab/SNF after KELLY. 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 11/02/2020. KELLY revealed left atrial appendage thrombus. Mildly dilated left ventricle with mild left ventricular hypertrophy with moderate global left ventricular hypokinesis with EF of 40 to 45%. Anticoagulation per cardiology recommendations. Physical therapy recommendations for acute rehab. 11/03/2020. Patient appears to have worsening aphasia and worsening right-sided weakness today per neurology. MRI brain stat. Leukocytosis likely leukemoid reaction from compartment syndrome. Patient is s/p right lower extremity thombectomy with 4 compartment fasciotomy yesterday. Bleeding from incisions over night. Consider ID consultation. Start empiric antibiotics. 11/04/2020. Patient decompensated yesterday evening with hypotension and worsening mental status. Patient was started on vasopressors and intubated. Patient is currently intubated and on fentanyl for sedation. Patient with worsening leukocytosis. Lactic acidosis likely secondary to compartment syndrome. Patient is s/p right lower extremity thombectomy with 4 compartment fasciotomy on 11/02/2020. Levaquin started empirically yesterday. ID consultation today. Patient also with worsening creatinine secondary to acute kidney injury. 11/05/2020. Patient attempted to pull out his ETT while I was examining him. Continue restraints for safety. Patient did manage to pull out his Winkler catheter and now has hematuria. We will irrigate the bladder and monitor closely patient is on anticoagulation with IV heparin. Continue Levophed drip to maintain MAP >65. Patient currently with mechanical ventilation AC mode rate of 12, tidal volume 500, FiO2 30% and a PEEP of 6. Continue fentanyl for sedation. Consult hematology hypercoagulable state given the arterial and venous thrombi. 11/06/2020. Hematology ordered argatroban and steroid pulse therapy. Follow work-up to rule out HIT. Follow-up pF4 Ab testing, Hgb electrophoresis, cardiolipin ab. Continue Levophed drip to maintain MAP >65. Patient currently with mechanical ventilation AC mode rate of 12, tidal volume 500, FiO2 30% and a PEEP of 6. Continue fentanyl for sedation. Continue antibiotics of cefepime and vancomycin. Sputum, blood and urine cultures are negative. Continue restraints for safety. The high probability of a clinically significant, sudden or life threatening deterioration of the [cardiac, respiratory and hemodynamic] system(s) required m y full and direct attention, intervention and personal management. The aggregate critical care time was [32] minutes. This time is in addition to time spent performing reported procedures but includes the following: [x] Data Review and interpretation [x] Patient assessment and monitoring of vital signs [x] Documentation [x] Medication orders and management History Interval history: Patient decompensated yesterday evening with hypotension and worsening mental status. Patient was started on vasopressors and intubated. Patient is currently intubated and on fentanyl for sedation. Hospitalist Physical - Constitutional Vitals: Temp Pulse Resp BP Pulse Ox 98.4 F 75 12 114/63 100 11/06/20 03:28 11/06/20 07:16 11/06/20 06:30 11/06/20 07:16 11/06/20 07:16 General appearance: Present: other (Patient remains intubated with decreased mental status) - EENT Eyes: Present: PERRL, EOM intact ENT: hearing intact, clear oral mucosa, dentition normal - Neck Neck: Present: supple, normal ROM - Respiratory Respiratory effort: normal Respiratory: bilateral: CTA - Cardiovascular Rhythm: regular Heart Sounds: Present: S1 & S2. Absent: gallop, rub - Extremities Extremities: no ischemia, No edema, Full ROM - Abdominal General gastrointestinal: soft, non-tender, non-distended, normal bowel sounds - Integumentary Integumentary: Present: clear, warm, dry - Neurologic Neurologic: CNII-XII intact, moves all extremities HEART Score - HEART Score Troponin: Troponin T 0.026 ng/mL (0.00-0.029) 10/23/20 16:39 Results - Labs CBC & Chem 7: 11/06/20 04:00 11/06/20 04:00 Labs: Laboratory Last Values WBC 33.0 K/mm3 (4.5-11.0) H 11/06/20 04:00 RBC 2.68 M/mm3 (3.65-5.03) L 11/06/20 04:00 Hgb 7.7 gm/dl (11.8-15.2) L 11/06/20 04:00 Hct 23.3 % (35.5-45.6) L 11/06/20 04:00 MCV 87 fl (84-94) 11/06/20 04:00 MCH 29 pg (28-32) 11/06/20 04:00 MCHC 33 % (32-34) 11/06/20 04:00 RDW 15.0 % (13.2-15.2) 11/06/20 04:00 Plt Count 155 K/mm3 (140-440) 11/06/20 04:00 Lymph % (Auto) 27.8 % (13.4-35.0) 10/23/20 13:32 [place] % (Auto) 6.0 % (0.0-7.3) 10/23/20 13:32 Eos % (Auto) 1.6 % (0.0-4.3) 10/23/20 13:32 Baso % (Auto) 0.7 % (0.0-1.8) 10/23/20 13:32 Lymph # (Auto) 1.5 K/mm3 (1.2-5.4) 10/23/20 13:32 [place] # (Auto) 0.3 K/mm3 (0.0-0.8) 10/23/20 13:32 Eos # (Auto) 0.1 K/mm3 (0.0-0.4) 10/23/20 13:32 Baso # (Auto) 0.0 K/mm3 (0.0-0.1) 10/23/20 13:32 Add Manual Diff Complete 11/06/20 04:00 Total Counted 100 11/06/20 04:00 Seg Neutrophils % Senior Market Intelligence Consultant 11/06/20 04:00 Seg Neuts % (Manual) 95.0 % (40.0-70.0) H 11/06/20 04:00 Lymphocytes % (Manual) 2.0 % (13.4-35.0) L 11/06/20 04:00 Monocytes % (Manual) 3.0 % (0.0-7.3) 11/06/20 04:00 Metamyelocytes % 1.0 % 11/04/20 04:00 Nucleated RBC % Not Reportable 11/06/20 04:00 Seg Neutrophils # 3.4 K/mm3 (1.8-7.7) 10/23/20 13:32 Seg Neutrophils # Man 31.4 K/mm3 (1.8-7.7) H 11/06/20 04:00 Band Neutrophils # 0.0 K/mm3 11/06/20 04:00 Lymphocytes # (Manual) 0.7 K/mm3 (1.2-5.4) L 11/06/20 04:00 Abs React Lymphs (Man) 0.0 K/mm3 11/06/20 04:00 Monocytes # (Manual) 1.0 K/mm3 (0.0-0.8) H 11/06/20 04:00 Eosinophils # (Manual) 0.0 K/mm3 (0.0-0.4) 11/06/20 04:00 Basophils # (Manual) 0.0 K/mm3 (0.0-0.1) 11/06/20 04:00 Metamyelocytes # 0.0 K/mm3 11/06/20 04:00 Myelocytes # 0.0 K/mm3 11/06/20 04:00 Promyelocytes # 0.0 K/mm3 11/06/20 04:00 Blast Cells # 0.0 K/mm3 11/06/20 04:00 WBC Morphology Not Reportable 11/06/20 04:00 Hypersegmented Neuts Not Reportable 11/06/20 04:00 Hyposegmented Neuts Not Reportable 11/06/20 04:00 Hypogranular Neuts Not Reportable 11/06/20 04:00 Smudge Cells Not Reportable 11/06/20 04:00 Toxic Granulation Not Reportable 11/06/20 04:00 Toxic Vacuolation Not Reportable 11/06/20 04:00 Dohle Bodies Not Reportable 11/06/20 04:00 Pelger-Huet Anomaly Not Reportable 11/06/20 04:00 Demario Rods Not Reportable 11/06/20 04:00 Platelet Estimate Consistent w auto 11/06/20 04:00 Clumped Platelets Not Reportable 11/06/20 04:00 Plt Clumps, EDTA Not Reportable 11/06/20 04:00 Large Platelets Not Reportable 11/06/20 04:00 Giant Platelets Not Reportable 11/06/20 04:00 Platelet Satelliting Not Reportable 11/06/20 04:00 Plt Morphology Comment Not Reportable 11/06/20 04:00 RBC Morphology Not Reportable 11/06/20 04:00 Dimorphic RBCs Not Reportable 11/06/20 04:00 Polychromasia Not Reportable 11/06/20 04:00 Hypochromasia Not Reportable 11/06/20 04:00 Poikilocytosis Not Reportable 11/06/20 04:00 Anisocytosis 1+ 11/06/20 04:00 Microcytosis Not Reportable 11/06/20 04:00 Macrocytosis Not Reportable 11/06/20 04:00 Spherocytes Not Reportable 11/06/20 04:00 Pappenheimer Bodies Not Reportable 11/06/20 04:00 Sickle Cells Not Reportable 11/06/20 04:00 Target Cells Not Reportable 11/06/20 04:00 Tear Drop Cells Not Reportable 11/06/20 04:00 Ovalocytes Not Reportable 11/06/20 04:00 Helmet Cells Not Reportable 11/06/20 04:00 Oliva-[place] Bodies Not Reportable 11/06/20 04:00 [place] Rings Not Reportable 11/06/20 04:00 [place] Cells 2+ 11/06/20 04:00 Bite Cells Not Reportable 11/06/20 04:00 Crenated Cell Not Reportable 11/06/20 04:00 Elliptocytes Not Reportable 11/06/20 04:00 Acanthocytes (Spur) Not Reportable 11/06/20 04:00 Rouleaux Not Reportable 11/06/20 04:00 Hemoglobin C Crystals Not Reportable 11/06/20 04:00 Schistocytes Rare 11/06/20 04:00 Malaria parasites Not Reportable 11/06/20 04:00 Lico Bodies Not Reportable 11/06/20 04:00 Hem Pathologist Commnt No 11/06/20 04:00 PT 16.2 Sec. (12.2-14.9) H 11/02/20 19:55 INR 1.30 (0.87-1.13) H 11/02/20 19:55 APTT 32.8 Sec. (24.2-36.6) 11/06/20 05:00 D-Dimer 4139.61 ng/mlDDU (0-234) H 10/23/20 18:23 Heparin Anti-Xa Level 0.43 U.I./ml (0.3-0.7) 11/05/20 11:30 ABG pH 7.387 (7.320-7.450) 11/06/20 02:54 POC ABG pCO2 39.4 mmHg (32.0-48.0) 11/06/20 02:54 POC ABG pO2 116.5 mmHg (83-108) H 11/06/20 02:54 POC ABG HCO3 23.2 11/06/20 02:54 ABG O2 Saturation 98.1 (0-100) 11/06/20 02:54 POC ABG Base Excess -1.7 11/06/20 02:54 ABG Hemoglobin 9.7 (12.0-17.5) L 11/06/20 02:54 ABG Oxyhemoglobin 97.5 (94-98) 11/06/20 02:54 ABG Methemoglobin 0.3 (0.0-1.5) 11/06/20 02:54 ABG Sodium 134.5 mmol/L (136.0-145.0) L 11/06/20 02:54 ABG Potassium 5.0 mmol/L (3.40-4.50) H 11/06/20 02:54 ABG Chloride 109.0 mmol/L (98-107) H 11/06/20 02:54 ABG Glucose 165 mg/dL (65-95) H 11/06/20 02:54 Carboxyhemoglobin 0.3 (0.5-1.5) L 11/06/20 02:54 FiO2 % 30.0 11/06/20 02:54 Sodium 139 mmol/L (137-145) 11/06/20 04:00 Potassium 5.1 mmol/L (3.6-5.0) H 11/06/20 04:00 Chloride 108.6 mmol/L (98-107) H 11/06/20 04:00 Carbon Dioxide 24 mmol/L (22-30) 11/06/20 04:00 Anion Gap 12 mmol/L 11/06/20 04:00 BUN 62 mg/dL (9-20) H 11/06/20 04:00 Creatinine 2.2 mg/dL (0.8-1.3) H 11/06/20 04:00 Estimated GFR 36 ml/min 11/06/20 04:00 BUN/Creatinine Ratio 28 % 11/06/20 04:00 Glucose 155 mg/dL (75-100) H 11/06/20 04:00 POC Glucose 156 mg/dL (70-105) H 11/05/20 23:30 Lactic Acid 1.30 mmol/L (0.7-2.0) 11/04/20 13:01 Calcium 7.3 mg/dL (8.4-10.2) L 11/06/20 04:00 Magnesium 2.20 mg/dL (1.7-2.3) 10/23/20 20:33 Ferritin 238.5 ng/mL (30.0-300.0) 10/23/20 18:23 Total Bilirubin 0.20 mg/dL (0.1-1.2) 11/05/20 19:00 Direct Bilirubin < 0.2 mg/dL (0-0.2) 11/05/20 19:00 Indirect Bilirubin 0.0 mg/dL 11/05/20 19:00 AST 25 units/L (5-40) 11/05/20 19:00 ALT 36 units/L (7-56) 11/05/20 19:00 Alkaline Phosphatase 40 units/L (35-129) 11/05/20 19:00 Lactate Dehydrogenase 334 units/L (91-180) H 10/23/20 18:23 Troponin T 0.026 ng/mL (0.00-0.029) 10/23/20 16:39 C-Reactive Protein 8.30 mg/dL (0.00-1.30) H 11/04/20 13:01 NT-Pro-B Natriuret Pep 5806 pg/mL (0-900) H 10/23/20 13:32 Total Protein 4.3 g/dL (6.3-8.2) L 11/05/20 19:00 Albumin 2.1 g/dL (3.9-5) L 11/05/20 19:00 Albumin/Globulin Ratio 1.0 % 11/05/20 19:00 Triglycerides 60 mg/dL (2-149) 10/24/20 09:29 Cholesterol 139 mg/dL (50-199) 10/24/20 09:29 LDL Cholesterol Direct 87 mg/dL (50-130) 10/24/20 09:29 HDL Cholesterol 46 mg/dL (40-59) 10/24/20 09:29 Cholesterol/HDL Ratio 3.02 % 10/24/20 09:29 Procalcitonin 0.99 ng/mL (<0.15) 11/03/20 21:14 TSH 6.540 mlU/mL (0.270-4.200) H 10/23/20 18:23 TSH 7.100 mlU/mL (0.270-4.200) H 10/23/20 18:23 Free T4 1.33 ng/dL (0.76-1.46) 10/23/20 18:23 Arterial Blood Glucose 165 mg/dL (65-95) H 11/06/20 02:54 Arterial Blood Ionized Calcium 4.5 mg/dL (4.6-5.3) L 11/06/20 02:54 Urine Color Yellow (Yellow) 11/04/20 11:00 Urine Turbidity Hazy (Clear) 11/04/20 11:00 Urine pH 5.0 (5.0-7.0) 11/04/20 11:00 Ur Specific [place] 1.017 (1.003-1.030) 11/04/20 11:00 Urine Protein 30 mg/dl mg/dL (Negative) 11/04/20 11:00 Urine Glucose (UA) 50 mg/dL (Negative) 11/04/20 11:00 Urine Ketones Neg mg/dL (Negative) 11/04/20 11:00 Urine Blood Neg (Negative) 11/04/20 11:00 Urine Nitrite Neg (Negative) 11/04/20 11:00 Urine Bilirubin Neg (Negative) 11/04/20 11:00 Urine Urobilinogen < 2.0 mg/dL (<2.0) 11/04/20 11:00 Ur Leukocyte Esterase Tr (Negative) 11/04/20 11:00 Urine WBC (Auto) 19.0 /HPF (0.0-6.0) H 11/04/20 11:00 Urine RBC (Auto) 3.0 /HPF (0.0-6.0) 11/04/20 11:00 U Epithel Cells (Auto) < 1.0 /HPF (0-13.0) 11/04/20 11:00 Urine Mucus Few /HPF 11/04/20 11:00 Urine Eosinophils None seen (None Seen) 11/04/20 12:50 Urine Creatinine < 4.2 mg/dL (0.1-20.0) 11/04/20 12:50 Urine Sodium 10 mmol/L 11/04/20 12:50 Random Vancomycin 5.0 ug/mL (0-40.0) 11/06/20 04:00 Coronavirus (PCR) Negative (Negative) 10/24/20 09:57 Blood Type O POSITIVE 11/02/20 15:00 Antibody Screen Negative 11/02/20 15:00 Crossmatch See Detail 11/02/20 15:00 Microbiology: Microbiology 11/04/20 13:01 Peripheral/Venous Blood Culture - Preliminary NO GROWTH AFTER 24 HOURS 11/04/20 13:01 Peripheral/Venous Blood Culture - Preliminary NO GROWTH AFTER 24 HOURS 11/04/20 Unknown Tracheal Aspirate Sputum Culture - Preliminary 11/03/20 17:25 Tracheal Aspirate Sputum Culture - Final 11/04/20 11:00 Urine,Clean Catch Urine Culture - Preliminary NO GROWTH AFTER 24 HOURS Winkler/IV: Voiding Method Indwelling Catheter Active Medications - Current Medications Current Medications: Generic Name Dose Route Start Last Admin Trade Name Freq PRN Reason Stop Dose Admin Acetaminophen 650 mg 10/23/20 20:00 Acetaminophen 325 Mg Tab PO Q4H PRN Pain, Mild (1-3) Lipase/Protease/Amylase 1 each 11/04/20 13:25 Lipase 10,500/Protease 25,000/Amylase 43,750 (Units) Dr Fernández FEEDTUBE PRN PRN For Clogged Feeding Tube Ascorbic Acid 500 mg 10/23/20 22:00 11/05/20 21:36 Ascorbic Acid 500 Mg Tab PO Not Given BID ALEX Aspirin 325 mg 10/24/20 10:00 11/05/20 10:44 Aspirin 325 Mg Tab PO 325 mg QDAY ALEX Administration Atorvastatin Calcium 40 mg 10/23/20 22:00 11/05/20 21:35 Atorvastatin 40 Mg Tab PO Not Given QHS ALEX Bisacodyl 10 mg 10/23/20 20:00 Bisacodyl 10 Mg Rect Supp OH QDAY PRN Constipation Cholecalciferol 1,000 unit 10/24/20 10:00 11/05/20 10:44 Cholecalciferol (Vit D3) 1000 Unit (25 Mcg) Tab PO 1,000 unit QDAY ALEX Administration Docusate Sodium 100 mg 11/02/20 12:00 11/05/20 21:35 Docusate Sodium 100 Mg Cap PO Not Given BID ALEX Famotidine 20 mg 11/04/20 10:00 11/05/20 10:43 Famotidine 20 Mg/2 Ml Inj IV 20 mg DAILY ALEX Administration Fentanyl 50 mcg 11/03/20 16:46 Fentanyl 100 Mcg/2 Ml Inj IV Q10MIN PRN ANALGESIA Hydrophilic Ointment 1 applic 11/03/20 16:46 Lip Therapy Vaseline TP Q2HR PRN Dry Lips Sodium Chloride 500 mls @ 125 mls/hr 11/03/20 16:00 11/04/20 05:06 Nacl 0.9% 500 Ml IV 125 mls/hr DIRECT ALEX Administration Fentanyl Citrate 2,000 mcg in 100 mls @ 4.86 mls/hr 11/03/20 17:24 11/06/20 04:15 Fentanyl Drip Premix IV 2 mcg/kg/hr TITR ALEX 9.72 mls/hr Titration Protocol 1 MCG/KG/HR NORepinephrine/NS 8 MG-250 ML 8 mg in 250 mls @ 3.75 mls/hr 11/03/20 18:00 11/06/20 07:39 Norepinephrine/Ns 8 Mg-250 Ml (Double Conc) IV 8 mcg/min TITRATE ALEX 15 mls/hr Administration Protocol 2 MCG/MIN Cefepime HCl 2 gm in 100 mls @ 200 mls/hr 11/04/20 11:00 11/06/20 01:14 Cefepime/Ns 2 Gm/100 Ml IV 200 mls/hr Q12H ALEX Administration Protocol Argatroban 250 mg/ Sodium 250 mls @ 3.168 mls/hr 11/05/20 18:00 11/05/20 22:06 Chloride IV 0 mcg/kg/min TITR ALEX 0 mls/hr Titration Protocol 0.5 MCG/KG/MIN Magnesium Hydroxide 30 ml 10/23/20 20:00 11/05/20 05:02 Magnesium Hydroxide (Mom) Oral Liqd Udc PO 30 ml Q4H PRN Administration Constipation Methylprednisolone Sodium Succinate 80 mg 11/05/20 18:00 Methylprednisolone Sod Succinate 125 Mg/2 Ml Inj IV 11/07/20 17:59 Q12H ALEX Metoclopramide HCl 10 mg 10/23/20 20:00 Metoclopramide 10 Mg Tab PO Q6H PRN Nausea And Vomiting Metoprolol Tartrate 6.25 mg 10/27/20 10:00 11/05/20 21:35 Metoprolol Tartrate 25 Mg Tab PO Not Given BID [facility] Multi-Ingred Cream/Lotion/Oil/Oint 1 applic 11/03/20 16:46 Mineral Oil/Petrolatum, White Ophth Oint 3.5 Gm OU Q4HR PRN Dry Eye(s) Ondansetron HCl 4 mg 10/23/20 20:00 11/06/20 03:13 Ondansetron 4 Mg/2 Ml Inj IV 4 mg Q8H PRN Administration Nausea And Vomiting Oxycodone/Acetaminophen 1 tab 11/03/20 09:27 Oxycodone /Acetaminophen 5-325mg Tab PO Q6H PRN Pain, Moderate (4-6) Promethazine HCl 25 mg 10/23/20 20:00 Promethazine 25 Mg Rect Supp [place] Q6H PRN Nausea And Vomiting Simple Syrup 15 ml 11/04/20 13:25 Simple Syrup 15 Ml FEEDTUBE PRN PRN Hypoglycemia Simple Syrup 30 ml 11/04/20 13:25 Simple Syrup 15 Ml FEEDTUBE PRN PRN Hypoglycemia Sodium Bicarbonate 325 mg 11/04/20 13:25 Sodium Bicarbonate 325 Mg Tab FEEDTUBE PRN PRN For Clogged Feeding Tube Sodium Chloride 10 ml 10/23/20 20:00 11/04/20 21:25 Sodium Chloride 0.9% 10 Ml Flush Syringe IV 10 ml PRN PRN Administration LINE FLUSH Zinc Sulfate 220 mg 10/23/20 22:00 11/05/20 21:36 Zinc Sulfate 220 Mg Cap PO Not Given BID ALEX Nutrition/Malnutrition Assess - Dietary Evaluation Nutrition/Malnutrition Findings: Nutrition Notes Start: 10/24/20 11:33 Freq: Status: Active Protocol: Document 11/04/20 13:14 AL (Rec: 11/04/20 13:25 AL [id number]) Co-Sign 11/04/20 13:14 LP Nutrition Notes Need for Assessment generated from: MD Order Initial or Follow up Reassessment Current Diagnosis Acute Kidney Injury, Hypertension,Heart Failure, Respiratory Failure,Stroke Other Pertinent Diagnosis pneu Current Diet Cardiac Diet Labs/Tests K 5.7 BUN 57 Cr 2.3 Pertinent Medications Norepinephine 4.86 ml/hr NS at 125 ml/h Colace Solumedrol Height 5 ft 11 in Weight 97.2 kg [place] Body Weight (kg) 78.18 BMI 29.9 Intake Prior to Admission Poor Weight Status Overweight Subjective/Other Information MD order for write/manage TF. Pt has high K lab values and has an STACEY. Pt. s/p open thrombectomy of right leg and fasciotomy. Will calculate Nepro TF. Burn Absent Trauma Absent Current % PO Negligible Minimum of two criteria No physical signs of malnutrition #2 Nutrition Diagnosis Inadequate oral intake Etiology Respiratory failure As Evidenced by Signs and Symptoms Pt intubated and unable to consume PO Is patient on ventilator? Yes Is Patient Ambulatory and/or Out of Bed No REE-(Josephine-St. Jeor-confined to bed) 2110.500 Additional Notes Protein: 116-195 g (1.2-2.0 g/ kg ABW) Fluid: 1 ml/kcal Nutrition Intervention Change Diet Order: Start TF Nutrition Support: Start Nepro 1.8 at 25 ml/hr and increase by 10 ml q8h until 45 ml (goal rate) is reached. Flush 150 ml q4h Kcal 1,944 Protein (gm) 88 Fluid (mL) 786 Goal #1 Meet at least 75% of energy and protein needs via TF Goal #2 TF tolerance. Anticipated Discharge Needs: Unable to determine at the moment. Follow-Up By: 11/05/20 Additional Comments FU for new TF, vent status, and renal labs.
--- NOTE | 2020-11-06 09:25 | Progress Note ---
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 The patient's H&H continued to decline. No evidence of bleeding from the patient's fasciotomies. The patient did have a traumatic removal of his Winkler as well as hematemesis. He may benefit from urologic consultation as well as GI consultation. Heme-onc's notes reviewed. Subjective Date of service: 11/06/20 Principal diagnosis: Ac hypoxemic resp failure; CVA; Acute limb ischemia; Acute encephalopathy Interval history: Patient with a history of cardiac thrombus, CVA and acute limb ischemia status post revascularization with fasciotomies. His leg bandages and dressings are clear and will remain intact over the weekend. Patient does have minimal amount of blood around the head of his penis with a history of traumatic self removal of Winkler catheter. Additionally, notes hematemesis over the past 24hours. At time of examination, the Winkler catheter is draining clear urine. Patient is obtunded. Objective - Constitutional Vitals: Vital Signs - 12hr 11/05/20 11/05/20 11/05/20 21:30 21:45 22:00 Temperature Pulse Rate 79 79 81 Pulse Rate [ From Monitor] Respiratory 12 14 11 L Rate Blood Pressure 88/57 114/71 119/74 O2 Sat by Pulse 100 100 100 Oximetry 11/05/20 11/05/20 11/05/20 22:09 22:15 22:30 Temperature Pulse Rate 80 82 79 Pulse Rate [ From Monitor] Respiratory 12 12 11 L Rate Blood Pressure 119/74 120/73 99/60 O2 Sat by Pulse 100 Oximetry 11/05/20 11/05/20 11/05/20 22:45 23:00 23:09 Temperature Pulse Rate 77 79 82 Pulse Rate [ From Monitor] Respiratory 12 16 Rate Blood Pressure 93/54 120/76 120/76 O2 Sat by Pulse 100 99 100 Oximetry 11/05/20 11/05/20 11/05/20 23:15 23:30 23:45 Temperature Pulse Rate 81 84 77 Pulse Rate [ From Monitor] Respiratory 12 12 12 Rate Blood Pressure 116/59 117/69 93/53 O2 Sat by Pulse 100 100 100 Oximetry 11/05/20 11/06/20 11/06/20 23:49 00:00 00:15 Temperature 97.9 F Pulse Rate 78 77 Pulse Rate [ 84 From Monitor] Respiratory 12 13 Rate Blood Pressure 119/59 116/62 O2 Sat by Pulse 100 100 Oximetry 11/06/20 11/06/20 11/06/20 00:30 00:45 01:00 Temperature Pulse Rate 76 78 77 Pulse Rate [ From Monitor] Respiratory 14 12 14 Rate Blood Pressure 97/61 111/54 125/57 O2 Sat by Pulse 100 100 100 Oximetry 11/06/20 11/06/20 11/06/20 01:15 01:31 01:45 Temperature Pulse Rate 78 73 73 Pulse Rate [ From Monitor] Respiratory 15 12 12 Rate Blood Pressure 115/63 91/40 91/48 O2 Sat by Pulse 100 100 100 Oximetry 11/06/20 11/06/20 11/06/20 02:00 02:15 02:47 Temperature Pulse Rate 72 77 78 Pulse Rate [ From Monitor] Respiratory 12 11 L 12 Rate Blood Pressure 90/48 131/62 131/62 O2 Sat by Pulse 100 100 Oximetry 11/06/20 11/06/20 11/06/20 03:00 03:15 03:28 Temperature 98.4 F Pulse Rate 81 84 Pulse Rate [ From Monitor] Respiratory 14 13 Rate Blood Pressure 101/62 101/62 O2 Sat by Pulse 100 Oximetry 11/06/20 11/06/20 11/06/20 03:31 03:45 04:00 Temperature Pulse Rate 86 85 79 Pulse Rate [ 86 From Monitor] Respiratory 10 L 19 13 Rate Blood Pressure 108/49 109/60 111/71 O2 Sat by Pulse 100 95 100 Oximetry 11/06/20 11/06/20 11/06/20 04:15 04:30 04:45 Temperature Pulse Rate 82 79 79 Pulse Rate [ From Monitor] Respiratory 12 12 12 Rate Blood Pressure 130/77 84/53 94/56 O2 Sat by Pulse 100 100 100 Oximetry 11/06/20 11/06/20 11/06/20 05:00 05:15 05:31 Temperature Pulse Rate 80 79 78 Pulse Rate [ From Monitor] Respiratory 12 12 13 Rate Blood Pressure 94/59 96/57 88/52 O2 Sat by Pulse 100 100 100 Oximetry 11/06/20 11/06/20 11/06/20 05:45 06:00 06:15 Temperature Pulse Rate 76 78 78 Pulse Rate [ From Monitor] Respiratory 13 12 12 Rate Blood Pressure 110/58 110/58 109/60 O2 Sat by Pulse 100 100 100 Oximetry 11/06/20 11/06/20 11/06/20 06:30 07:16 08:00 Temperature 97.4 F L Pulse Rate 77 75 Pulse Rate [ From Monitor] Respiratory 12 Rate Blood Pressure 107/53 114/63 O2 Sat by Pulse 100 100 Oximetry General appearance: Present: other (Obtunded, intubated) Extremities: abnormal (Right lower extremity fasciotomy dressings intact, no signs of bleeding.) - Labs CBC & Chem 7: 11/06/20 04:00 11/06/20 04:00 Labs: Abnormal lab results 11/05/20 11/05/20 11/05/20 Range/Units 18:18 19:00 21:20 WBC (4.5-11.0) K/mm3 RBC (3.65-5.03) M/mm3 Hgb (11.8-15.2) gm/dl Hct (35.5-45.6) % Seg Neuts % (Manual) (40.0-70.0) % Lymphocytes % (Manual) (13.4-35.0) % Seg Neutrophils # Man (1.8-7.7) K/mm3 Lymphocytes # (Manual) (1.2-5.4) K/mm3 Monocytes # (Manual) (0.0-0.8) K/mm3 APTT 63.8 H* (24.2-36.6) Sec. POC ABG pO2 (83-108) mmHg ABG Hemoglobin (12.0-17.5) ABG Sodium (136.0-145.0) mmol/L ABG Potassium (3.40-4.50) mmol/L ABG Chloride (98-107) mmol/L ABG Glucose (65-95) mg/dL Carboxyhemoglobin (0.5-1.5) Potassium (3.6-5.0) mmol/L Chloride (98-107) mmol/L BUN (9-20) mg/dL Creatinine (0.8-1.3) mg/dL Glucose (75-100) mg/dL POC Glucose 124 H (70-105) mg/dL Calcium (8.4-10.2) mg/dL Total Protein 4.3 L (6.3-8.2) g/dL Albumin 2.1 L (3.9-5) g/dL Arterial Blood Glucose (65-95) mg/dL Arterial Blood Ionized Calcium (4.6-5.3) mg/dL 11/05/20 11/06/20 11/06/20 Range/Units 23:30 02:54 04:00 WBC 33.0 H (4.5-11.0) K/mm3 RBC 2.68 L (3.65-5.03) M/mm3 Hgb 7.7 L (11.8-15.2) gm/dl Hct 23.3 L (35.5-45.6) % Seg Neuts % (Manual) 95.0 H (40.0-70.0) % Lymphocytes % (Manual) 2.0 L (13.4-35.0) % Seg Neutrophils # Man 31.4 H (1.8-7.7) K/mm3 Lymphocytes # (Manual) 0.7 L (1.2-5.4) K/mm3 Monocytes # (Manual) 1.0 H (0.0-0.8) K/mm3 APTT (24.2-36.6) Sec. POC ABG pO2 116.5 H (83-108) mmHg ABG Hemoglobin 9.7 L (12.0-17.5) ABG Sodium 134.5 L (136.0-145.0) mmol/L ABG Potassium 5.0 H (3.40-4.50) mmol/L ABG Chloride 109.0 H (98-107) mmol/L ABG Glucose 165 H (65-95) mg/dL Carboxyhemoglobin 0.3 L (0.5-1.5) Potassium (3.6-5.0) mmol/L Chloride (98-107) mmol/L BUN (9-20) mg/dL Creatinine (0.8-1.3) mg/dL Glucose (75-100) mg/dL POC Glucose 156 H (70-105) mg/dL Calcium (8.4-10.2) mg/dL Total Protein (6.3-8.2) g/dL Albumin (3.9-5) g/dL Arterial Blood Glucose 165 H (65-95) mg/dL Arterial Blood Ionized Calcium 4.5 L (4.6-5.3) mg/dL 11/06/20 11/06/20 Range/Units 04:00 05:17 WBC (4.5-11.0) K/mm3 RBC (3.65-5.03) M/mm3 Hgb (11.8-15.2) gm/dl Hct (35.5-45.6) % Seg Neuts % (Manual) (40.0-70.0) % Lymphocytes % (Manual) (13.4-35.0) % Seg Neutrophils # Man (1.8-7.7) K/mm3 Lymphocytes # (Manual) (1.2-5.4) K/mm3 Monocytes # (Manual) (0.0-0.8) K/mm3 APTT (24.2-36.6) Sec. POC ABG pO2 (83-108) mmHg ABG Hemoglobin (12.0-17.5) ABG Sodium (136.0-145.0) mmol/L ABG Potassium (3.40-4.50) mmol/L ABG Chloride (98-107) mmol/L ABG Glucose (65-95) mg/dL Carboxyhemoglobin (0.5-1.5) Potassium 5.1 H (3.6-5.0) mmol/L Chloride 108.6 H (98-107) mmol/L BUN 62 H (9-20) mg/dL Creatinine 2.2 H (0.8-1.3) mg/dL Glucose 155 H (75-100) mg/dL POC Glucose 147 H (70-105) mg/dL Calcium 7.3 L (8.4-10.2) mg/dL Total Protein (6.3-8.2) g/dL Albumin (3.9-5) g/dL Arterial Blood Glucose (65-95) mg/dL Arterial Blood Ionized Calcium (4.6-5.3) mg/dL Medications & Allergies - Medications Allergies/Adverse Reactions: Allergies No Known Allergies Allergy (Unverified 10/23/20 12:44) Home Medications: Home Medications Medication Instructions Recorded Confirmed Last Taken Type Levothyroxine Sodium 150 mcg PO DAILY 10/31/20 10/31/20 Unknown History [Levothyroxine] carvediloL [Coreg] 6.25 mg PO BID 10/31/20 10/31/20 Unknown History lisinopriL [Lisinopril] 10 mg PO DAILY 10/31/20 10/31/20 Unknown History Active Medications: Generic Name Dose Route Start Last Admin Trade Name Freq PRN Reason Stop Dose Admin Acetaminophen 650 mg 10/23/20 20:00 Acetaminophen 325 Mg Tab PO Q4H PRN Pain, Mild (1-3) Lipase/Protease/Amylase 1 each 11/04/20 13:25 Lipase 10,500/Protease 25,000/Amylase 43,750 (Units) Dr Pradeep FEEDTUBE PRN PRN For Clogged Feeding Tube Ascorbic Acid 500 mg 10/23/20 22:00 11/05/20 21:36 Ascorbic Acid 500 Mg Tab PO Not Given BID ALEX Aspirin 325 mg 10/24/20 10:00 11/05/20 10:44 Aspirin 325 Mg Tab PO 325 mg QDAY ALEX Administration Atorvastatin Calcium 40 mg 10/23/20 22:00 11/05/20 21:35 Atorvastatin 40 Mg Tab PO Not Given QHS ALEX Bisacodyl 10 mg 10/23/20 20:00 Bisacodyl 10 Mg Rect Supp [place] QDAY PRN Constipation Cholecalciferol 1,000 unit 10/24/20 10:00 11/05/20 10:44 Cholecalciferol (Vit D3) 1000 Unit (25 Mcg) Tab PO 1,000 unit QDAY ALEX Administration Docusate Sodium 100 mg 11/02/20 12:00 11/05/20 21:35 Docusate Sodium 100 Mg Cap PO Not Given BID ALEX Famotidine 20 mg 11/04/20 10:00 11/05/20 10:43 Famotidine 20 Mg/2 Ml Inj IV 20 mg DAILY ALEX Administration Fentanyl 50 mcg 11/03/20 16:46 Fentanyl 100 Mcg/2 Ml Inj IV Q10MIN PRN ANALGESIA Hydrophilic Ointment 1 applic 11/03/20 16:46 Lip Therapy Vaseline TP Q2HR PRN Dry Lips Sodium Chloride 500 mls @ 125 mls/hr 11/03/20 16:00 11/04/20 05:06 Nacl 0.9% 500 Ml IV 125 mls/hr DIRECT ALEX Administration Fentanyl Citrate 2,000 mcg in 100 mls @ 4.86 mls/hr 11/03/20 17:24 11/06/20 04:15 Fentanyl Drip Premix IV 2 mcg/kg/hr TITR ALEX 9.72 mls/hr Titration Protocol 1 MCG/KG/HR NORepinephrine/NS 8 MG-250 ML 8 mg in 250 mls @ 3.75 mls/hr 11/03/20 18:00 11/06/20 07:39 Norepinephrine/Ns 8 Mg-250 Ml (Double Conc) IV 8 mcg/min TITRATE ALEX 15 mls/hr Administration Protocol 2 MCG/MIN Cefepime HCl 2 gm in 100 mls @ 200 mls/hr 11/04/20 11:00 11/06/20 01:14 Cefepime/Ns 2 Gm/100 Ml IV 200 mls/hr Q12H ALEX Administration Protocol Argatroban 250 mg/ Sodium 250 mls @ 3.168 mls/hr 11/05/20 18:00 11/05/20 22:06 Chloride IV 0 mcg/kg/min TITR ALEX 0 mls/hr Titration Protocol 0.5 MCG/KG/MIN Magnesium Hydroxide 30 ml 10/23/20 20:00 11/05/20 05:02 Magnesium Hydroxide (Mom) Oral Liqd Udc PO 30 ml Q4H PRN Administration Constipation Methylprednisolone Sodium Succinate 80 mg 11/05/20 18:00 Methylprednisolone Sod Succinate 125 Mg/2 Ml Inj IV 11/07/20 17:59 Q12H [facility] Metoclopramide HCl 10 mg 10/23/20 20:00 Metoclopramide 10 Mg Tab PO Q6H PRN Nausea And Vomiting Metoprolol Tartrate 6.25 mg 10/27/20 10:00 11/05/20 21:35 Metoprolol Tartrate 25 Mg Tab PO Not Given BID [facility] Multi-Ingred Cream/Lotion/Oil/Oint 1 applic 11/03/20 16:46 Mineral Oil/Petrolatum, White Ophth Oint 3.5 Gm OU Q4HR PRN Dry Eye(s) Ondansetron HCl 4 mg 10/23/20 20:00 11/06/20 03:13 Ondansetron 4 Mg/2 Ml Inj IV 4 mg Q8H PRN Administration Nausea And Vomiting Oxycodone/Acetaminophen 1 tab 11/03/20 09:27 Oxycodone /Acetaminophen 5-325mg Tab PO Q6H PRN Pain, Moderate (4-6) Promethazine HCl 25 mg 10/23/20 20:00 Promethazine 25 Mg Rect Supp [place] Q6H PRN Nausea And Vomiting Simple Syrup 15 ml 11/04/20 13:25 Simple Syrup 15 Ml FEEDTUBE PRN PRN Hypoglycemia Simple Syrup 30 ml 11/04/20 13:25 Simple Syrup 15 Ml FEEDTUBE PRN PRN Hypoglycemia Sodium Bicarbonate 325 mg 11/04/20 13:25 Sodium Bicarbonate 325 Mg Tab FEEDTUBE PRN PRN For Clogged Feeding Tube Sodium Chloride 10 ml 10/23/20 20:00 11/04/20 21:25 Sodium Chloride 0.9% 10 Ml Flush Syringe IV 10 ml PRN PRN Administration LINE FLUSH Zinc Sulfate 220 mg 10/23/20 22:00 11/05/20 21:36 Zinc Sulfate 220 Mg Cap PO Not Given BID [facility] HEART Score - HEART Score Troponin: Troponin T 0.026 ng/mL (0.00-0.029) 10/23/20 16:39
[2020-11-06] MEDS: fentaNYL DRIP Premix 2,000 MCG/100 ML BAG IV SCH ×2 (09:54→19:12)
[2020-11-06] MEDS: methylPREDNISolone Sod Succinate 125 MG/2 ML INJ IV SCH ×3 (09:54→18:02)
[2020-11-06] MEDS: METOPROLOL TARTRATE 25 MG TAB PO SCH ×2 (09:56→22:29)
[2020-11-06] MEDS: ASPIRIN 325 MG TAB PO SCH (09:56)
[2020-11-06] MEDS: ASCORBIC ACID 500 MG TAB PO SCH ×2 (09:57→22:26)
[2020-11-06] MEDS: FAMOTIDINE 20 MG/2 ML INJ IV SCH (09:57)
[2020-11-06] MEDS: DOCUSATE SODIUM 100 MG CAP PO SCH ×2 (09:57→22:26)
[2020-11-06] MEDS: ZINC SULFATE 220 MG CAP PO SCH ×2 (09:57→22:26)
[2020-11-06] MEDS: CHOLECALCIFEROL (VIT D3) 1000 UNIT (25 mcg) TAB PO SCH (10:01)
--- NOTE | 2020-11-06 12:30 | Progress Note ---
Assessment and Plan Assessment and Plan 70 yo male with HTN, hypothyroidism who presents with 2 days of confusion, weakness and noted with an acute partial L MCA territory ischemic stroke with noted expressive aphasia, dysarthria, right hemiparesis, with possible right homonymous hemianopsia. 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 improved possible restart heparine decision is to vascuale surgery -Placed On oral AC yesterday resulted in possible GI bleed - change in mentation today on Cpap ? pneumonia ? CO2 retention -CT brain yesterday showed possible subacute left parietal infarct -R/O paroxysmal afib); -Pt. will need AC If no systemic contraindication exist , can start on IV heparine -ASA 81 mg - BP Goal <150/80 - he is currently hypotensive --off Dobutamin . stil on epinephrine smal dose - Statin therapy for a goal LDL of 70, #LDL#87 -- mainatin Lipitor at 40 mg - # Hypertension - goal 150/80-- now is hypotensive # Hypothyroidism - management per primary team. # Unsteady Gait - pt/ot evaluation/monitoring. 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 PLAN 1- maintain medications 2- MRI brain is remarkable for a new CVA / CT showed new left parietal infarct 3- Treat underlying infection 4- NPO / Intubated 5- PT/ST evaluate 6- OFF IV heparine due to leg site bleeding -- vascualr surgery to decide on restart heparine Over all prognosis is quarded due to multi medical problem and complicated medical HX . Will follow as needed Critical care statement The high probability OF a clinically significant sudden or life-threatening deterioration of the cardiorespiratory system and endocrine system required my full and direct attention, intervention and postoperative management. The aggregate critical care time was 40 minutes. The time is in addition to time spent performing reported procedures but includes the followin: Data review and interpretation 2: Patient assessment and monitoring of vital signs 3: Documentation 4:: Medication orders and management Subjective Date of service: 11/06/20 Principal diagnosis: Ac hypoxemic resp failure; CVA; Acute limb ischemia; Acute encephalopathy Interval history: 70 yo male with htn, hypothyroidism who presents with 2 days of confusion, weakness and noted with an acute partial L MCA territory ischemic infarction, in the setting of an Echo that reveals an EF of 30 to 35%, bilateral pneumonia, and possible CHF exacerbation. Currently, the patient feels slightly better. He was initially noted with a NIHSS of 16 in the ED but presented outside the tPA window and no LVO was noted on CTAs. 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 had right lower Ext. thrombus underwent thrombectomy he is in ICU today he seems to be more out of it with worseing of aphasia and right side weakness not follow command attempt to palce on Cpap today resulted in worseing of mentation ? co2 retention he is with GI bleed on attempt of Po AC Past History Past Medical History: hypertension, hypothyroidism, other (See HPI) Past Surgical History: thyroidectomy Social history: single. denies: smoking, alcohol abuse Family history: hypertension Objective - Vital Sign Vital Signs - 12hr 11/06/20 11/06/20 11/06/20 00:30 00:45 01:00 Temperature Pulse Rate 76 78 77 Pulse Rate [ From Monitor] Respiratory 14 12 14 Rate Blood Pressure 97/61 111/54 125/57 O2 Sat by Pulse 100 100 100 Oximetry 11/06/20 11/06/20 11/06/20 01:15 01:31 01:45 Temperature Pulse Rate 78 73 73 Pulse Rate [ From Monitor] Respiratory 15 12 12 Rate Blood Pressure 115/63 91/40 91/48 O2 Sat by Pulse 100 100 100 Oximetry 11/06/20 11/06/20 11/06/20 02:00 02:15 02:47 Temperature Pulse Rate 72 77 78 Pulse Rate [ From Monitor] Respiratory 12 11 L 12 Rate Blood Pressure 90/48 131/62 131/62 O2 Sat by Pulse 100 100 Oximetry 11/06/20 11/06/20 11/06/20 03:00 03:15 03:28 Temperature 98.4 F Pulse Rate 81 84 Pulse Rate [ From Monitor] Respiratory 14 13 Rate Blood Pressure 101/62 101/62 O2 Sat by Pulse 100 Oximetry 11/06/20 11/06/20 11/06/20 03:31 03:45 04:00 Temperature Pulse Rate 86 85 79 Pulse Rate [ 86 From Monitor] Respiratory 10 L 19 13 Rate Blood Pressure 108/49 109/60 111/71 O2 Sat by Pulse 100 95 100 Oximetry 11/06/20 11/06/20 11/06/20 04:15 04:30 04:45 Temperature Pulse Rate 82 79 79 Pulse Rate [ From Monitor] Respiratory 12 12 12 Rate Blood Pressure 130/77 84/53 94/56 O2 Sat by Pulse 100 100 100 Oximetry 11/06/20 11/06/20 11/06/20 05:00 05:15 05:31 Temperature Pulse Rate 80 79 78 Pulse Rate [ From Monitor] Respiratory 12 12 13 Rate Blood Pressure 94/59 96/57 88/52 O2 Sat by Pulse 100 100 100 Oximetry 11/06/20 11/06/20 11/06/20 05:45 06:00 06:15 Temperature Pulse Rate 76 78 78 Pulse Rate [ From Monitor] Respiratory 13 12 12 Rate Blood Pressure 110/58 110/58 109/60 O2 Sat by Pulse 100 100 100 Oximetry 11/06/20 11/06/20 11/06/20 06:30 06:45 07:01 Temperature Pulse Rate 77 76 79 Pulse Rate [ From Monitor] Respiratory 12 12 12 Rate Blood Pressure 107/53 103/54 98/57 O2 Sat by Pulse 100 100 100 Oximetry 11/06/20 11/06/20 11/06/20 07:15 07:16 07:31 Temperature Pulse Rate 75 75 81 Pulse Rate [ From Monitor] Respiratory 13 12 Rate Blood Pressure 114/63 114/63 124/73 O2 Sat by Pulse 100 100 100 Oximetry 11/06/20 11/06/20 11/06/20 07:45 08:00 08:15 Temperature 97.4 F L Pulse Rate 86 79 77 Pulse Rate [ From Monitor] Respiratory 13 13 12 Rate Blood Pressure 125/73 123/66 106/52 O2 Sat by Pulse 100 100 100 Oximetry 11/06/20 11/06/20 11/06/20 08:30 08:45 09:00 Temperature Pulse Rate 76 77 73 Pulse Rate [ From Monitor] Respiratory 12 12 13 Rate Blood Pressure 102/63 106/62 113/62 O2 Sat by Pulse 100 100 100 Oximetry 11/06/20 11/06/20 11/06/20 09:15 09:30 09:35 Temperature Pulse Rate 72 71 69 Pulse Rate [ From Monitor] Respiratory 14 13 20 Rate Blood Pressure 111/63 122/59 104/64 O2 Sat by Pulse 100 100 100 Oximetry 11/06/20 11/06/20 11/06/20 09:45 09:56 10:00 Temperature Pulse Rate 72 70 71 Pulse Rate [ From Monitor] Respiratory 13 12 Rate Blood Pressure 121/57 121/57 113/59 O2 Sat by Pulse 100 100 Oximetry 11/06/20 11/06/20 11/06/20 10:15 10:30 10:45 Temperature Pulse Rate 69 70 64 Pulse Rate [ From Monitor] Respiratory 12 12 12 Rate Blood Pressure 117/58 104/64 100/61 O2 Sat by Pulse 100 100 100 Oximetry 11/06/20 11/06/20 11/06/20 11:00 11:15 11:30 Temperature Pulse Rate 60 58 L 59 L Pulse Rate [ From Monitor] Respiratory 12 12 12 Rate Blood Pressure 103/57 103/54 99/60 O2 Sat by Pulse 100 100 100 Oximetry 11/06/20 11/06/20 11:45 12:00 Temperature Pulse Rate 57 L 58 L Pulse Rate [ From Monitor] Respiratory 12 16 Rate Blood Pressure 107/51 111/50 O2 Sat by Pulse 100 100 Oximetry - General Apperance Constitutional: other (lethargic this am ) - EENT EENT: PERRL, mucous membranes moist - Respiratory Respiratory: chest non-tender, lungs clear, rales, rhonchi - Cardiovascular Cardiovascular: other (AF) Extremities: no peripheral edema bilat, no clubbing, cyanosis - Gastrointestinal Gastrointestinal: normoactive bowel sounds - Neurologic Cranial nerve examination: PERRL, EOMI, intact Detailed motor examination: other (difficult to assess due to change mentation ) - Laboratory Findings CBC and BMP: 11/06/20 04:00 11/06/20 04:00 Abnormal Lab Findings: Abnormal Labs 10/23/20 10/23/20 10/23/20 13:32 18:23 18:23 WBC RBC Hgb Hct Seg Neuts % (Manual) Lymphocytes % (Manual) Seg Neutrophils # Man Lymphocytes # (Manual) Monocytes # (Manual) PT INR APTT D-Dimer 4139.61 H Heparin Anti-Xa Level ABG pH POC ABG pCO2 POC ABG pO2 ABG Hemoglobin ABG Oxyhemoglobin ABG Sodium ABG Potassium ABG Chloride ABG Glucose Carboxyhemoglobin Sodium Potassium Chloride 109.1 H Carbon Dioxide BUN Creatinine Glucose POC Glucose Lactic Acid Calcium Lactate Dehydrogenase 334 H C-Reactive Protein 2.50 H NT-Pro-B Natriuret Pep 5806 H Total Protein Albumin TSH Arterial Blood Glucose Arterial Blood Ionized Calcium Urine WBC (Auto) Crossmatch 10/23/20 10/23/20 10/26/20 18:23 18:23 05:34 WBC RBC Hgb Hct Seg Neuts % (Manual) Lymphocytes % (Manual) Seg Neutrophils # Man Lymphocytes # (Manual) Monocytes # (Manual) PT INR APTT D-Dimer Heparin Anti-Xa Level ABG pH POC ABG pCO2 POC ABG pO2 ABG Hemoglobin ABG Oxyhemoglobin ABG Sodium ABG Potassium ABG Chloride ABG Glucose Carboxyhemoglobin Sodium Potassium Chloride Carbon Dioxide BUN 30 H Creatinine Glucose 120 H POC Glucose Lactic Acid Calcium Lactate Dehydrogenase C-Reactive Protein NT-Pro-B Natriuret Pep Total Protein Albumin TSH 7.100 H 6.540 H Arterial Blood Glucose Arterial Blood Ionized Calcium Urine WBC (Auto) Crossmatch 10/27/20 10/28/20 11/02/20 08:55 05:25 07:17 WBC 15.8 H RBC Hgb Hct Seg Neuts % (Manual) Lymphocytes % (Manual) Seg Neutrophils # Man Lymphocytes # (Manual) Monocytes # (Manual) PT INR APTT D-Dimer Heparin Anti-Xa Level ABG pH POC ABG pCO2 POC ABG pO2 ABG Hemoglobin ABG Oxyhemoglobin ABG Sodium ABG Potassium ABG Chloride ABG Glucose Carboxyhemoglobin Sodium Potassium Chloride Carbon Dioxide BUN 28 H 28 H Creatinine Glucose 124 H 110 H POC Glucose Lactic Acid Calcium 8.2 L Lactate Dehydrogenase C-Reactive Protein NT-Pro-B Natriuret Pep Total Protein Albumin TSH Arterial Blood Glucose Arterial Blood Ionized Calcium Urine WBC (Auto) Crossmatch 11/02/20 11/02/20 11/02/20 07:17 15:00 15:06 WBC RBC Hgb 15.7 H Hct 47.5 H D Seg Neuts % (Manual) Lymphocytes % (Manual) Seg Neutrophils # Man Lymphocytes # (Manual) Monocytes # (Manual) PT INR APTT D-Dimer Heparin Anti-Xa Level ABG pH POC ABG pCO2 POC ABG pO2 ABG Hemoglobin ABG Oxyhemoglobin ABG Sodium ABG Potassium ABG Chloride ABG Glucose Carboxyhemoglobin Sodium 136 L Potassium Chloride Carbon Dioxide BUN 33 H Creatinine Glucose 107 H POC Glucose Lactic Acid Calcium 7.9 L Lactate Dehydrogenase C-Reactive Protein NT-Pro-B Natriuret Pep Total Protein Albumin TSH Arterial Blood Glucose Arterial Blood Ionized Calcium Urine WBC (Auto) Crossmatch See Detail 11/02/20 11/02/20 11/02/20 19:55 21:25 22:28 WBC 21.8 H RBC Hgb Hct Seg Neuts % (Manual) Lymphocytes % (Manual) Seg Neutrophils # Man Lymphocytes # (Manual) Monocytes # (Manual) PT 16.2 H INR 1.30 H APTT 106.0 H* D-Dimer Heparin Anti-Xa Level 1.63 H ABG pH POC ABG pCO2 POC ABG pO2 ABG Hemoglobin ABG Oxyhemoglobin ABG Sodium ABG Potassium ABG Chloride ABG Glucose Carboxyhemoglobin Sodium Potassium Chloride Carbon Dioxide BUN Creatinine Glucose POC Glucose Lactic Acid Calcium Lactate Dehydrogenase C-Reactive Protein NT-Pro-B Natriuret Pep Total Protein Albumin TSH Arterial Blood Glucose Arterial Blood Ionized Calcium Urine WBC (Auto) Crossmatch 11/03/20 11/03/20 11/03/20 05:47 13:20 13:20 WBC 29.0 H RBC Hgb 10.4 L Hct 31.2 L D Seg Neuts % (Manual) Lymphocytes % (Manual) Seg Neutrophils # Man Lymphocytes # (Manual) Monocytes # (Manual) PT INR APTT D-Dimer Heparin Anti-Xa Level < 0.10 L ABG pH POC ABG pCO2 POC ABG pO2 ABG Hemoglobin ABG Oxyhemoglobin ABG Sodium ABG Potassium ABG Chloride ABG Glucose Carboxyhemoglobin Sodium 134 L Potassium 5.9 H D Chloride Carbon Dioxide 17 L D BUN 47 H Creatinine 2.2 H D Glucose 188 H POC Glucose Lactic Acid Calcium 7.6 L Lactate Dehydrogenase C-Reactive Protein NT-Pro-B Natriuret Pep Total Protein Albumin TSH Arterial Blood Glucose Arterial Blood Ionized Calcium Urine WBC (Auto) Crossmatch 11/03/20 11/03/20 11/03/20 13:20 16:11 20:01 WBC RBC Hgb Hct Seg Neuts % (Manual) Lymphocytes % (Manual) Seg Neutrophils # Man Lymphocytes # (Manual) Monocytes # (Manual) PT INR APTT D-Dimer Heparin Anti-Xa Level ABG pH 7.289 L POC ABG pCO2 31.8 L POC ABG pO2 156.7 H 119.6 H ABG Hemoglobin 10.7 L 9.7 L ABG Oxyhemoglobin 98.2 H ABG Sodium 127.7 L 129.5 L ABG Potassium 5.8 H 5.9 H ABG Chloride ABG Glucose 190 H 174 H Carboxyhemoglobin 0.3 L 0.1 L Sodium Potassium Chloride Carbon Dioxide BUN Creatinine Glucose POC Glucose Lactic Acid 7.40 H* Calcium Lactate Dehydrogenase C-Reactive Protein NT-Pro-B Natriuret Pep Total Protein Albumin TSH Arterial Blood Glucose 190 H 174 H Arterial Blood Ionized Calcium 4.3 L 4.3 L Urine WBC (Auto) Crossmatch 11/03/20 11/04/20 11/04/20 21:14 04:00 04:00 WBC 32.8 H RBC Hgb 11.7 L Hct 35.0 L Seg Neuts % (Manual) 82.0 H Lymphocytes % (Manual) 10.0 L Seg Neutrophils # Man 26.9 H Lymphocytes # (Manual) Monocytes # (Manual) 2.3 H PT INR APTT D-Dimer Heparin Anti-Xa Level 0.73 H ABG pH POC ABG pCO2 POC ABG pO2 ABG Hemoglobin ABG Oxyhemoglobin ABG Sodium ABG Potassium ABG Chloride ABG Glucose Carboxyhemoglobin Sodium 133 L Potassium 5.7 H Chloride Carbon Dioxide 20 L BUN 57 H Creatinine 2.3 H Glucose 129 H POC Glucose Lactic Acid Calcium 7.2 L Lactate Dehydrogenase C-Reactive Protein NT-Pro-B Natriuret Pep Total Protein Albumin TSH Arterial Blood Glucose Arterial Blood Ionized Calcium Urine WBC (Auto) Crossmatch 11/04/20 11/04/20 11/04/20 07:57 11:00 11:55 WBC RBC Hgb Hct Seg Neuts % (Manual) Lymphocytes % (Manual) Seg Neutrophils # Man Lymphocytes # (Manual) Monocytes # (Manual) PT INR APTT D-Dimer Heparin Anti-Xa Level ABG pH POC ABG pCO2 POC ABG pO2 132.7 H ABG Hemoglobin 11.5 L ABG Oxyhemoglobin ABG Sodium 130.6 L ABG Potassium 5.3 H ABG Chloride ABG Glucose 145 H Carboxyhemoglobin 0.2 L Sodium Potassium Chloride Carbon Dioxide BUN Creatinine Glucose POC Glucose 110 H Lactic Acid Calcium Lactate Dehydrogenase C-Reactive Protein NT-Pro-B Natriuret Pep Total Protein Albumin TSH Arterial Blood Glucose 145 H Arterial Blood Ionized Calcium 4.4 L Urine WBC (Auto) 19.0 H Crossmatch 11/04/20 11/04/20 11/04/20 13:01 13:01 17:40 WBC RBC Hgb Hct Seg Neuts % (Manual) Lymphocytes % (Manual) Seg Neutrophils # Man Lymphocytes # (Manual) Monocytes # (Manual) PT INR APTT D-Dimer Heparin Anti-Xa Level 0.26 L ABG pH POC ABG pCO2 POC ABG pO2 ABG Hemoglobin ABG Oxyhemoglobin ABG Sodium ABG Potassium ABG Chloride ABG Glucose Carboxyhemoglobin Sodium Potassium Chloride Carbon Dioxide BUN Creatinine Glucose POC Glucose 135 H Lactic Acid Calcium Lactate Dehydrogenase C-Reactive Protein 8.30 H NT-Pro-B Natriuret Pep Total Protein Albumin TSH Arterial Blood Glucose Arterial Blood Ionized Calcium Urine WBC (Auto) Crossmatch 11/04/20 11/04/20 11/05/20 19:55 23:20 00:53 WBC RBC Hgb 9.7 L 9.0 L Hct 28.3 L D 26.0 L Seg Neuts % (Manual) Lymphocytes % (Manual) Seg Neutrophils # Man Lymphocytes # (Manual) Monocytes # (Manual) PT INR APTT D-Dimer Heparin Anti-Xa Level ABG pH POC ABG pCO2 POC ABG pO2 ABG Hemoglobin ABG Oxyhemoglobin ABG Sodium ABG Potassium ABG Chloride ABG Glucose Carboxyhemoglobin Sodium Potassium Chloride Carbon Dioxide BUN Creatinine Glucose POC Glucose 143 H Lactic Acid Calcium Lactate Dehydrogenase C-Reactive Protein NT-Pro-B Natriuret Pep Total Protein Albumin TSH Arterial Blood Glucose Arterial Blood Ionized Calcium Urine WBC (Auto) Crossmatch 11/05/20 11/05/20 11/05/20 02:16 03:16 03:37 WBC 33.5 H RBC 3.01 L Hgb 8.8 L Hct 25.6 L Seg Neuts % (Manual) 93.5 H Lymphocytes % (Manual) 3.5 L Seg Neutrophils # Man 31.3 H Lymphocytes # (Manual) Monocytes # (Manual) 1.0 H PT INR APTT D-Dimer Heparin Anti-Xa Level 0.99 H ABG pH POC ABG pCO2 POC ABG pO2 131.3 H ABG Hemoglobin 9.2 L ABG Oxyhemoglobin ABG Sodium 131.6 L ABG Potassium ABG Chloride 110.0 H ABG Glucose 168 H Carboxyhemoglobin 0.3 L Sodium Potassium Chloride Carbon Dioxide BUN Creatinine Glucose POC Glucose Lactic Acid Calcium Lactate Dehydrogenase C-Reactive Protein NT-Pro-B Natriuret Pep Total Protein Albumin TSH Arterial Blood Glucose 168 H Arterial Blood Ionized Calcium 4.4 L Urine WBC (Auto) Crossmatch 11/05/20 11/05/20 11/05/20 03:37 05:19 18:18 WBC RBC Hgb Hct Seg Neuts % (Manual) Lymphocytes % (Manual) Seg Neutrophils # Man Lymphocytes # (Manual) Monocytes # (Manual) PT INR APTT D-Dimer Heparin Anti-Xa Level ABG pH POC ABG pCO2 POC ABG pO2 ABG Hemoglobin ABG Oxyhemoglobin ABG Sodium ABG Potassium ABG Chloride ABG Glucose Carboxyhemoglobin Sodium Potassium Chloride 109.5 H Carbon Dioxide BUN 55 H Creatinine 2.1 H Glucose 157 H POC Glucose 142 H 124 H Lactic Acid Calcium 7.0 L Lactate Dehydrogenase C-Reactive Protein NT-Pro-B Natriuret Pep Total Protein Albumin TSH Arterial Blood Glucose Arterial Blood Ionized Calcium Urine WBC (Auto) Crossmatch 11/05/20 11/05/20 11/05/20 19:00 21:20 23:30 WBC RBC Hgb Hct Seg Neuts % (Manual) Lymphocytes % (Manual) Seg Neutrophils # Man Lymphocytes # (Manual) Monocytes # (Manual) PT INR APTT 63.8 H* D-Dimer Heparin Anti-Xa Level ABG pH POC ABG pCO2 POC ABG pO2 ABG Hemoglobin ABG Oxyhemoglobin ABG Sodium ABG Potassium ABG Chloride ABG Glucose Carboxyhemoglobin Sodium Potassium Chloride Carbon Dioxide BUN Creatinine Glucose POC Glucose 156 H Lactic Acid Calcium Lactate Dehydrogenase C-Reactive Protein NT-Pro-B Natriuret Pep Total Protein 4.3 L Albumin 2.1 L TSH Arterial Blood Glucose Arterial Blood Ionized Calcium Urine WBC (Auto) Crossmatch 11/06/20 11/06/20 11/06/20 02:54 04:00 04:00 WBC 33.0 H RBC 2.68 L Hgb 7.7 L Hct 23.3 L Seg Neuts % (Manual) 95.0 H Lymphocytes % (Manual) 2.0 L Seg Neutrophils # Man 31.4 H Lymphocytes # (Manual) 0.7 L Monocytes # (Manual) 1.0 H PT INR APTT D-Dimer Heparin Anti-Xa Level ABG pH POC ABG pCO2 POC ABG pO2 116.5 H ABG Hemoglobin 9.7 L ABG Oxyhemoglobin ABG Sodium 134.5 L ABG Potassium 5.0 H ABG Chloride 109.0 H ABG Glucose 165 H Carboxyhemoglobin 0.3 L Sodium Potassium 5.1 H Chloride 108.6 H Carbon Dioxide BUN 62 H Creatinine 2.2 H Glucose 155 H POC Glucose Lactic Acid Calcium 7.3 L Lactate Dehydrogenase C-Reactive Protein NT-Pro-B Natriuret Pep Total Protein Albumin TSH Arterial Blood Glucose 165 H Arterial Blood Ionized Calcium 4.5 L Urine WBC (Auto) Crossmatch 11/06/20 05:17 WBC RBC Hgb Hct Seg Neuts % (Manual) Lymphocytes % (Manual) Seg Neutrophils # Man Lymphocytes # (Manual) Monocytes # (Manual) PT INR APTT D-Dimer Heparin Anti-Xa Level ABG pH POC ABG pCO2 POC ABG pO2 ABG Hemoglobin ABG Oxyhemoglobin ABG Sodium ABG Potassium ABG Chloride ABG Glucose Carboxyhemoglobin Sodium Potassium Chloride Carbon Dioxide BUN Creatinine Glucose POC Glucose 147 H Lactic Acid Calcium Lactate Dehydrogenase C-Reactive Protein NT-Pro-B Natriuret Pep Total Protein Albumin TSH Arterial Blood Glucose Arterial Blood Ionized Calcium Urine WBC (Auto) Crossmatch
[2020-11-06] MEDS ORDERED: VANCOMYCIN 1,500 MG in SODIUM CHLORIDE 0.9% 500 ML 500 ML IV ONE (13:00)
[2020-11-06] MEDS: MAGNESIUM HYDROXIDE (MOM) ORAL LIQD UDC PO PRN (13:31)
--- NOTE | 2020-11-06 14:36 | Progress Note ---
Assessment and Plan 1. Acute kidney injury: Vasomotor STACEY in the setting of shock. Renal US negative for hydro. Monitor renal function. Renal prognosis is guarded. Creatinine leveled off. Avoid nephrotoxic agents. Meds dosage based on GFR. 2. FEN: Hyperkalemia, Kayexalate ordered, monitor. Hyperchloremic metabolic acidosis, monitor. Monitor lytes and volume status. 3. Severe sepsis with shock: Etiology unclear, rule out bacteremia, UTI, pneumonia and other nosocomial infections. Levophed. Followed by ID. 4. 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 Seen by Neurology. 5. Acute hypoxemic respiratory failure: Intubated, on vent. 6. Acute on chronic systolic heart failure: EF 40-45%. Followed by Cards. 7. Left atrial thrombus: Argatroban. 8. Acute R LE ischemia: S/p thrombectomy. 9. Normochromic anemia: Monitor. Subjective: Patient was seen and examined at the bedside. Examination: General appearance: well-developed, appears stated age, no distress, intubated, on vent, NG tube HEENT: SCOTTY, atraumatic Neck: trachea midline Respiratory: Clear to Auscultation Heart: S1S2, regular, no murmur Abdomen: soft, appears distended, bowel sounds heard, NT Integumentary: R LE cold and clammy, dressing noted Neurologic: opens eyes, intermittently moving extremities Ext: bilateral LE edema noted, R > L : Winkler catheter Subjective Date of service: 11/06/20 Principal diagnosis: Ac hypoxemic resp failure; CVA; Acute limb ischemia; Acute encephalopathy Objective - Vital Signs Vital signs: Vital Signs - 12hr 11/06/20 11/06/20 11/06/20 02:47 03:00 03:15 Temperature Pulse Rate 78 81 84 Pulse Rate [ From Monitor] Respiratory 12 14 13 Rate Blood Pressure 131/62 101/62 101/62 O2 Sat by Pulse 100 Oximetry 11/06/20 11/06/20 11/06/20 03:28 03:31 03:45 Temperature 98.4 F Pulse Rate 86 85 Pulse Rate [ From Monitor] Respiratory 10 L 19 Rate Blood Pressure 108/49 109/60 O2 Sat by Pulse 100 95 Oximetry 11/06/20 11/06/20 11/06/20 04:00 04:15 04:30 Temperature Pulse Rate 79 82 79 Pulse Rate [ 86 From Monitor] Respiratory 13 12 12 Rate Blood Pressure 111/71 130/77 84/53 O2 Sat by Pulse 100 100 100 Oximetry 11/06/20 11/06/20 11/06/20 04:45 05:00 05:15 Temperature Pulse Rate 79 80 79 Pulse Rate [ From Monitor] Respiratory 12 12 12 Rate Blood Pressure 94/56 94/59 96/57 O2 Sat by Pulse 100 100 100 Oximetry 11/06/20 11/06/20 11/06/20 05:31 05:45 06:00 Temperature Pulse Rate 78 76 78 Pulse Rate [ From Monitor] Respiratory 13 13 12 Rate Blood Pressure 88/52 110/58 110/58 O2 Sat by Pulse 100 100 100 Oximetry 11/06/20 11/06/20 11/06/20 06:15 06:30 06:45 Temperature Pulse Rate 78 77 76 Pulse Rate [ From Monitor] Respiratory 12 12 12 Rate Blood Pressure 109/60 107/53 103/54 O2 Sat by Pulse 100 100 100 Oximetry 11/06/20 11/06/20 11/06/20 07:01 07:15 07:16 Temperature Pulse Rate 79 75 75 Pulse Rate [ From Monitor] Respiratory 12 13 Rate Blood Pressure 98/57 114/63 114/63 O2 Sat by Pulse 100 100 100 Oximetry 11/06/20 11/06/20 11/06/20 07:31 07:45 08:00 Temperature 97.4 F L Pulse Rate 81 86 79 Pulse Rate [ 78 From Monitor] Respiratory 12 13 14 Rate Blood Pressure 124/73 125/73 123/66 O2 Sat by Pulse 100 100 100 Oximetry 11/06/20 11/06/20 11/06/20 08:15 08:30 08:45 Temperature Pulse Rate 77 76 77 Pulse Rate [ From Monitor] Respiratory 12 12 12 Rate Blood Pressure 106/52 102/63 106/62 O2 Sat by Pulse 100 100 100 Oximetry 11/06/20 11/06/20 11/06/20 09:00 09:15 09:30 Temperature Pulse Rate 73 72 71 Pulse Rate [ From Monitor] Respiratory 13 14 13 Rate Blood Pressure 113/62 111/63 122/59 O2 Sat by Pulse 100 100 100 Oximetry 11/06/20 11/06/20 11/06/20 09:35 09:45 09:56 Temperature Pulse Rate 69 72 70 Pulse Rate [ From Monitor] Respiratory 20 13 Rate Blood Pressure 104/64 121/57 121/57 O2 Sat by Pulse 100 100 Oximetry 11/06/20 11/06/20 11/06/20 10:00 10:15 10:30 Temperature Pulse Rate 71 69 70 Pulse Rate [ From Monitor] Respiratory 12 12 12 Rate Blood Pressure 113/59 117/58 104/64 O2 Sat by Pulse 100 100 100 Oximetry 11/06/20 11/06/20 11/06/20 10:45 11:00 11:15 Temperature Pulse Rate 64 60 58 L Pulse Rate [ From Monitor] Respiratory 12 12 12 Rate Blood Pressure 100/61 103/57 103/54 O2 Sat by Pulse 100 100 100 Oximetry 11/06/20 11/06/20 11/06/20 11:30 11:45 12:00 Temperature 98.0 F Pulse Rate 59 L 57 L 58 L Pulse Rate [ From Monitor] Respiratory 12 12 16 Rate Blood Pressure 99/60 107/51 111/50 O2 Sat by Pulse 100 100 100 Oximetry 11/06/20 11/06/20 11/06/20 12:15 12:30 12:43 Temperature Pulse Rate 59 L 61 61 Pulse Rate [ From Monitor] Respiratory 15 13 Rate Blood Pressure 110/51 111/53 111/53 O2 Sat by Pulse 100 100 100 Oximetry 11/06/20 11/06/20 11/06/20 12:45 13:00 13:15 Temperature Pulse Rate 60 64 60 Pulse Rate [ From Monitor] Respiratory 13 14 13 Rate Blood Pressure 114/53 110/52 110/54 O2 Sat by Pulse 100 100 100 Oximetry 11/06/20 11/06/20 11/06/20 13:30 13:45 14:00 Temperature Pulse Rate 61 63 64 Pulse Rate [ From Monitor] Respiratory 12 12 12 Rate Blood Pressure 114/58 111/53 108/57 O2 Sat by Pulse 100 100 100 Oximetry 11/06/20 11/06/20 14:15 14:30 Temperature Pulse Rate 63 65 Pulse Rate [ From Monitor] Respiratory 12 12 Rate Blood Pressure 103/55 109/56 O2 Sat by Pulse 100 100 Oximetry - Lab 11/06/20 04:00 11/06/20 04:00 Most recent lab results ABG pH 7.387 (7.320-7.450) 11/06/20 02:54 ABG O2 Saturation 98.1 (0-100) 11/06/20 02:54 Calcium 7.3 mg/dL (8.4-10.2) L 11/06/20 04:00 Magnesium 2.20 mg/dL (1.7-2.3) 10/23/20 20:33 Urine Creatinine < 4.2 mg/dL (0.1-20.0) 11/04/20 12:50 Urine Sodium 10 mmol/L 11/04/20 12:50 Medications & Allergies - Medications Allergies/Adverse Reactions: Allergies No Known Allergies Allergy (Unverified 10/23/20 12:44) Home Medications: Home Medications Medication Instructions Recorded Confirmed Last Taken Type Levothyroxine Sodium 150 mcg PO DAILY 10/31/20 10/31/20 Unknown History [Levothyroxine] carvediloL [Coreg] 6.25 mg PO BID 10/31/20 10/31/20 Unknown History lisinopriL [Lisinopril] 10 mg PO DAILY 10/31/20 10/31/20 Unknown History Active Medications: Generic Name Dose Route Start Last Admin Trade Name Freq PRN Reason Stop Dose Admin Acetaminophen 650 mg 10/23/20 20:00 Acetaminophen 325 Mg Tab PO Q4H PRN Pain, Mild (1-3) Lipase/Protease/Amylase 1 each 11/04/20 13:25 Lipase 10,500/Protease 25,000/Amylase 43,750 (Units) Dr Fernández FEEDTUBE PRN PRN For Clogged Feeding Tube Ascorbic Acid 500 mg 10/23/20 22:00 11/06/20 09:57 Ascorbic Acid 500 Mg Tab PO 500 mg BID ALEX Administration Aspirin 325 mg 10/24/20 10:00 11/06/20 09:56 Aspirin 325 Mg Tab PO 325 mg QDAY ALEX Administration Atorvastatin Calcium 40 mg 10/23/20 22:00 11/05/20 21:35 Atorvastatin 40 Mg Tab PO Not Given QHS ALEX Bisacodyl 10 mg 10/23/20 20:00 Bisacodyl 10 Mg Rect Supp [place] QDAY PRN Constipation Cholecalciferol 1,000 unit 10/24/20 10:00 11/06/20 10:01 Cholecalciferol (Vit D3) 1000 Unit (25 Mcg) Tab PO 1,000 unit QDAY ALEX Administration Docusate Sodium 100 mg 11/02/20 12:00 11/06/20 09:57 Docusate Sodium 100 Mg Cap PO 100 mg BID ALEX Administration Famotidine 20 mg 11/04/20 10:00 11/06/20 09:57 Famotidine 20 Mg/2 Ml Inj IV 20 mg DAILY ALEX Administration Fentanyl 50 mcg 11/03/20 16:46 Fentanyl 100 Mcg/2 Ml Inj IV Q10MIN PRN ANALGESIA Hydrophilic Ointment 1 applic 11/03/20 16:46 Lip Therapy Vaseline TP Q2HR PRN Dry Lips Sodium Chloride 500 mls @ 125 mls/hr 11/03/20 16:00 11/04/20 05:06 Nacl 0.9% 500 Ml IV 125 mls/hr DIRECT ALEX Administration Fentanyl Citrate 2,000 mcg in 100 mls @ 4.86 mls/hr 11/03/20 17:24 11/06/20 09:54 Fentanyl Drip Premix IV 2 mcg/kg/hr TITR ALEX 9.72 mls/hr Administration Protocol 1 MCG/KG/HR NORepinephrine/NS 8 MG-250 ML 8 mg in 250 mls @ 3.75 mls/hr 11/03/20 18:00 11/06/20 07:39 Norepinephrine/Ns 8 Mg-250 Ml (Double Conc) IV 8 mcg/min TITRATE ALEX 15 mls/hr Administration Protocol 2 MCG/MIN Cefepime HCl 2 gm in 100 mls @ 200 mls/hr 11/04/20 11:00 11/06/20 10:15 Cefepime/Ns 2 Gm/100 Ml IV 200 mls/hr Q12H ALEX Administration Protocol Argatroban 250 mg/ Sodium 250 mls @ 3.168 mls/hr 11/05/20 18:00 11/05/20 22:06 Chloride IV 0 mcg/kg/min TITR ALEX 0 mls/hr Titration Protocol 0.5 MCG/KG/MIN Magnesium Hydroxide 30 ml 10/23/20 20:00 11/06/20 13:31 Magnesium Hydroxide (Mom) Oral Liqd Udc PO 30 ml Q4H PRN Administration Constipation Methylprednisolone Sodium Succinate 80 mg 11/05/20 18:00 11/06/20 09:54 Methylprednisolone Sod Succinate 125 Mg/2 Ml Inj IV 11/07/20 17:59 80 mg Q12H ALEX Administration Metoclopramide HCl 10 mg 10/23/20 20:00 Metoclopramide 10 Mg Tab PO Q6H PRN Nausea And Vomiting Metoprolol Tartrate 6.25 mg 10/27/20 10:00 11/06/20 09:56 Metoprolol Tartrate 25 Mg Tab PO 6.25 mg BID ALEX Administration Multi-Ingred Cream/Lotion/Oil/Oint 1 applic 11/03/20 16:46 Mineral Oil/Petrolatum, White Ophth Oint 3.5 Gm OU Q4HR PRN Dry Eye(s) Ondansetron HCl 4 mg 10/23/20 20:00 11/06/20 03:13 Ondansetron 4 Mg/2 Ml Inj IV 4 mg Q8H PRN Administration Nausea And Vomiting Oxycodone/Acetaminophen 1 tab 11/03/20 09:27 Oxycodone /Acetaminophen 5-325mg Tab PO Q6H PRN Pain, Moderate (4-6) Promethazine HCl 25 mg 10/23/20 20:00 Promethazine 25 Mg Rect Supp [place] Q6H PRN Nausea And Vomiting Simple Syrup 15 ml 11/04/20 13:25 Simple Syrup 15 Ml FEEDTUBE PRN PRN Hypoglycemia Simple Syrup 30 ml 11/04/20 13:25 Simple Syrup 15 Ml FEEDTUBE PRN PRN Hypoglycemia Sodium Bicarbonate 325 mg 11/04/20 13:25 Sodium Bicarbonate 325 Mg Tab FEEDTUBE PRN PRN For Clogged Feeding Tube Sodium Chloride 10 ml 10/23/20 20:00 11/04/20 21:25 Sodium Chloride 0.9% 10 Ml Flush Syringe IV 10 ml PRN PRN Administration LINE FLUSH Zinc Sulfate 220 mg 10/23/20 22:00 11/06/20 09:57 Zinc Sulfate 220 Mg Cap PO 220 mg BID ALEX Administration
[2020-11-06] MEDS ORDERED: SODIUM POLYSTYRENE 15 GM/60 ML ORAL LIQD PO ONE (15:00)
--- NOTE | 2020-11-06 16:35 | Progress Note ---
Assessment and Plan Acute hypoxemic respiratory failure. Acute embolic cerebrovascular accident. Acute limb ischemia, status post thrombectomy. Left atrial appendage. Acute congestive heart failure exacerbation. Obesity. History of hypothyroidism. Leukocytosis. Acute encephalopathy, toxic metabolic - resume tube feeds - repeat KUB in am - continue to wean Levophed for target MAP > 65 mmHg (on 8 cortes's/min) - continue Heparin re: risk benefit analysis but at low dose protocol with prn H&H - complete antiinfective's per ID recommendation (Cefepime) - repeat lactate now WNL - azotemia per nephrology team - continue care as below otherwise; - continue to wean supplemental oxygen for target O2 sat's > 90% acutely - VAP bundle addressed - continue lung protective strategies - continue bronchodilators with pulmonary hygiene per RT - wean per pulmonary driven protocols otherwise - avoid nephrotoxins, renally dose all medications - continue Daily SAT and SBT assessment as tolerated - continue accuchecks with glycemic control per SSI (While critically ill target blood glucose of 140-180 mg/dL; avoid hypoglycemia) - sedation prn for target RASS 0 to -1 - continue to avoid benzodiazepine's, reduce the possibility of delirium - complete AB's per ID rec's - prn analgesia per CPOT score - Maintenance of sleep-wake cycle, avoid delirium - continue enteral nutritional support at goal rate as tolerated - G.I. & VTE prophylaxis - PT/OT/ROM exercises - continue mobility protocols for pressure ulcer prophylaxis - Monitor hemodynamics closely - continue other care per attending / other consultants - discharge planning ongoing concurrently .... Re-evaluate in am & prn CONDITION: CRITICAL PROGNOSIS: GUARDED CODE STATUS: FULL CODE The high probability of a clinically significant, sudden or life-threatening deterioration of the [respiratory, cardiovascular, renal & neurologic] system(s) required my full and direct attention, intervention and personal management. The aggregate critical care time was [34] minutes without overlap. Time includes spent on; [x] Data Review and interpretation [x] Patient assessment and monitoring of vital signs [x] Documentation [x] Medication orders and management Subjective Date of service: 11/06/20 Principal diagnosis: Ac hypoxemic resp failure; CVA; Acute limb ischemia; Acute encephalopathy Interval history: Patient is seen today for: Acute hypoxemic respiratory failure; Acute embolic CVA; Acute limb ischemia; Left atrial appendage; Acute CHF; Obesity; Acute ence phalopathy, toxic metabolic Seen and examined at bedside; 24hour events reviewed; nursing and respiratory care staff consulted; no adverse overnight events reported to me; resting peacefully in bed; AMS is persistent; failed SBT with apnea's; no gross bleeding; remains on Levophed @ 8 cortes's/min Objective Vital Signs - 12hr 11/06/20 11/06/20 11/06/20 02:00 02:15 02:47 Temperature Pulse Rate 72 77 78 Pulse Rate [ From Monitor] Respiratory 12 11 L 12 Rate Blood Pressure 90/48 131/62 131/62 O2 Sat by Pulse 100 100 Oximetry 11/06/20 11/06/20 11/06/20 03:00 03:15 03:28 Temperature 98.4 F Pulse Rate 81 84 Pulse Rate [ From Monitor] Respiratory 14 13 Rate Blood Pressure 101/62 101/62 O2 Sat by Pulse 100 Oximetry 11/06/20 11/06/20 11/06/20 03:31 03:45 04:00 Temperature Pulse Rate 86 85 79 Pulse Rate [ 86 From Monitor] Respiratory 10 L 19 13 Rate Blood Pressure 108/49 109/60 111/71 O2 Sat by Pulse 100 95 100 Oximetry 11/06/20 11/06/20 11/06/20 04:15 04:30 04:45 Temperature Pulse Rate 82 79 79 Pulse Rate [ From Monitor] Respiratory 12 12 12 Rate Blood Pressure 130/77 84/53 94/56 O2 Sat by Pulse 100 100 100 Oximetry 11/06/20 11/06/20 11/06/20 05:00 05:15 05:31 Temperature Pulse Rate 80 79 78 Pulse Rate [ From Monitor] Respiratory 12 12 13 Rate Blood Pressure 94/59 96/57 88/52 O2 Sat by Pulse 100 100 100 Oximetry 11/06/20 11/06/20 11/06/20 05:45 06:00 06:15 Temperature Pulse Rate 76 78 78 Pulse Rate [ From Monitor] Respiratory 13 12 12 Rate Blood Pressure 110/58 110/58 109/60 O2 Sat by Pulse 100 100 100 Oximetry 11/06/20 11/06/20 11/06/20 06:30 06:45 07:01 Temperature Pulse Rate 77 76 79 Pulse Rate [ From Monitor] Respiratory 12 12 12 Rate Blood Pressure 107/53 103/54 98/57 O2 Sat by Pulse 100 100 100 Oximetry 11/06/20 11/06/20 11/06/20 07:15 07:16 07:31 Temperature Pulse Rate 75 75 81 Pulse Rate [ From Monitor] Respiratory 13 12 Rate Blood Pressure 114/63 114/63 124/73 O2 Sat by Pulse 100 100 100 Oximetry 11/06/20 11/06/20 11/06/20 07:45 08:00 08:15 Temperature 97.4 F L Pulse Rate 86 79 77 Pulse Rate [ 78 From Monitor] Respiratory 13 14 12 Rate Blood Pressure 125/73 123/66 106/52 O2 Sat by Pulse 100 100 100 Oximetry 11/06/20 11/06/20 11/06/20 08:30 08:45 09:00 Temperature Pulse Rate 76 77 73 Pulse Rate [ From Monitor] Respiratory 12 12 13 Rate Blood Pressure 102/63 106/62 113/62 O2 Sat by Pulse 100 100 100 Oximetry 11/06/20 11/06/20 11/06/20 09:15 09:30 09:35 Temperature Pulse Rate 72 71 69 Pulse Rate [ From Monitor] Respiratory 14 13 20 Rate Blood Pressure 111/63 122/59 104/64 O2 Sat by Pulse 100 100 100 Oximetry 11/06/20 11/06/20 11/06/20 09:45 09:56 10:00 Temperature Pulse Rate 72 70 71 Pulse Rate [ From Monitor] Respiratory 13 12 Rate Blood Pressure 121/57 121/57 113/59 O2 Sat by Pulse 100 100 Oximetry 11/06/20 11/06/20 11/06/20 10:15 10:30 10:45 Temperature Pulse Rate 69 70 64 Pulse Rate [ From Monitor] Respiratory 12 12 12 Rate Blood Pressure 117/58 104/64 100/61 O2 Sat by Pulse 100 100 100 Oximetry 11/06/20 11/06/20 11/06/20 11:00 11:15 11:30 Temperature Pulse Rate 60 58 L 59 L Pulse Rate [ From Monitor] Respiratory 12 12 12 Rate Blood Pressure 103/57 103/54 99/60 O2 Sat by Pulse 100 100 100 Oximetry 11/06/20 11/06/20 11/06/20 11:45 12:00 12:43 Temperature Pulse Rate 57 L 58 L 61 Pulse Rate [ From Monitor] Respiratory 12 16 Rate Blood Pressure 107/51 111/50 111/53 O2 Sat by Pulse 100 100 100 Oximetry Constitutional: no acute distress, other (elderly male with mildly increased respiratory effort at rest on MVS) Eyes: non-icteric ENT: oropharynx moist, other (ETT 25 cm DALIA) Neck: supple, no lymphadenopathy, no JVD Effort: mildly labored Ascultation: Bilateral: diminished breath sounds, rhonchi (scant) Percussion: Bilateral: not dull Cardiovascular: regular rate and rhythm Gastrointestinal: normoactive bowel sounds, soft, non-tender, non-distended Integumentary: normal Extremities: no cyanosis, pink and warm, edema (RLExt), other (RLExt fasciotomy) Neurologic: pupils equal and round, unable to assess, other (Right Hemiparesis) Psychiatric: other (encephalopathic) CBC and BMP: 11/06/20 04:00 11/06/20 04:00 ABG, PT/INR, D-dimer: ABG ABG pH 7.387 (7.320-7.450) 11/06/20 02:54 POC ABG pCO2 39.4 mmHg (32.0-48.0) 11/06/20 02:54 POC ABG pO2 116.5 mmHg (83-108) H 11/06/20 02:54 POC ABG HCO3 23.2 11/06/20 02:54 ABG O2 Saturation 98.1 (0-100) 11/06/20 02:54 PT/INR, D-dimer PT 16.2 Sec. (12.2-14.9) H 11/02/20 19:55 INR 1.30 (0.87-1.13) H 11/02/20 19:55 D-Dimer 4139.61 ng/mlDDU (0-234) H 10/23/20 18:23 Abnormal lab findings: Abnormal Labs 10/23/20 10/23/20 10/23/20 13:32 18:23 18:23 WBC RBC Hgb Hct Seg Neuts % (Manual) Lymphocytes % (Manual) Seg Neutrophils # Man Lymphocytes # (Manual) Monocytes # (Manual) PT INR APTT D-Dimer 4139.61 H Heparin Anti-Xa Level ABG pH POC ABG pCO2 POC ABG pO2 ABG Hemoglobin ABG Oxyhemoglobin ABG Sodium ABG Potassium ABG Chloride ABG Glucose Carboxyhemoglobin Sodium Potassium Chloride 109.1 H Carbon Dioxide BUN Creatinine Glucose POC Glucose Lactic Acid Calcium Lactate Dehydrogenase 334 H C-Reactive Protein 2.50 H NT-Pro-B Natriuret Pep 5806 H Total Protein Albumin TSH Arterial Blood Glucose Arterial Blood Ionized Calcium Urine WBC (Auto) Crossmatch 10/23/20 10/23/20 10/26/20 18:23 18:23 05:34 WBC RBC Hgb Hct Seg Neuts % (Manual) Lymphocytes % (Manual) Seg Neutrophils # Man Lymphocytes # (Manual) Monocytes # (Manual) PT INR APTT D-Dimer Heparin Anti-Xa Level ABG pH POC ABG pCO2 POC ABG pO2 ABG Hemoglobin ABG Oxyhemoglobin ABG Sodium ABG Potassium ABG Chloride ABG Glucose Carboxyhemoglobin Sodium Potassium Chloride Carbon Dioxide BUN 30 H Creatinine Glucose 120 H POC Glucose Lactic Acid Calcium Lactate Dehydrogenase C-Reactive Protein NT-Pro-B Natriuret Pep Total Protein Albumin TSH 7.100 H 6.540 H Arterial Blood Glucose Arterial Blood Ionized Calcium Urine WBC (Auto) Crossmatch 10/27/20 10/28/20 11/02/20 08:55 05:25 07:17 WBC 15.8 H RBC Hgb Hct Seg Neuts % (Manual) Lymphocytes % (Manual) Seg Neutrophils # Man Lymphocytes # (Manual) Monocytes # (Manual) PT INR APTT D-Dimer Heparin Anti-Xa Level ABG pH POC ABG pCO2 POC ABG pO2 ABG Hemoglobin ABG Oxyhemoglobin ABG Sodium ABG Potassium ABG Chloride ABG Glucose Carboxyhemoglobin Sodium Potassium Chloride Carbon Dioxide BUN 28 H 28 H Creatinine Glucose 124 H 110 H POC Glucose Lactic Acid Calcium 8.2 L Lactate Dehydrogenase C-Reactive Protein NT-Pro-B Natriuret Pep Total Protein Albumin TSH Arterial Blood Glucose Arterial Blood Ionized Calcium Urine WBC (Auto) Crossmatch 11/02/20 11/02/20 11/02/20 07:17 15:00 15:06 WBC RBC Hgb 15.7 H Hct 47.5 H D Seg Neuts % (Manual) Lymphocytes % (Manual) Seg Neutrophils # Man Lymphocytes # (Manual) Monocytes # (Manual) PT INR APTT D-Dimer Heparin Anti-Xa Level ABG pH POC ABG pCO2 POC ABG pO2 ABG Hemoglobin ABG Oxyhemoglobin ABG Sodium ABG Potassium ABG Chloride ABG Glucose Carboxyhemoglobin Sodium 136 L Potassium Chloride Carbon Dioxide BUN 33 H Creatinine Glucose 107 H POC Glucose Lactic Acid Calcium 7.9 L Lactate Dehydrogenase C-Reactive Protein NT-Pro-B Natriuret Pep Total Protein Albumin TSH Arterial Blood Glucose Arterial Blood Ionized Calcium Urine WBC (Auto) Crossmatch See Detail 11/02/20 11/02/20 11/02/20 19:55 21:25 22:28 WBC 21.8 H RBC Hgb Hct Seg Neuts % (Manual) Lymphocytes % (Manual) Seg Neutrophils # Man Lymphocytes # (Manual) Monocytes # (Manual) PT 16.2 H INR 1.30 H APTT 106.0 H* D-Dimer Heparin Anti-Xa Level 1.63 H ABG pH POC ABG pCO2 POC ABG pO2 ABG Hemoglobin ABG Oxyhemoglobin ABG Sodium ABG Potassium ABG Chloride ABG Glucose Carboxyhemoglobin Sodium Potassium Chloride Carbon Dioxide BUN Creatinine Glucose POC Glucose Lactic Acid Calcium Lactate Dehydrogenase C-Reactive Protein NT-Pro-B Natriuret Pep Total Protein Albumin TSH Arterial Blood Glucose Arterial Blood Ionized Calcium Urine WBC (Auto) Crossmatch 11/03/20 11/03/20 11/03/20 05:47 13:20 13:20 WBC 29.0 H RBC Hgb 10.4 L Hct 31.2 L D Seg Neuts % (Manual) Lymphocytes % (Manual) Seg Neutrophils # Man Lymphocytes # (Manual) Monocytes # (Manual) PT INR APTT D-Dimer Heparin Anti-Xa Level < 0.10 L ABG pH POC ABG pCO2 POC ABG pO2 ABG Hemoglobin ABG Oxyhemoglobin ABG Sodium ABG Potassium ABG Chloride ABG Glucose Carboxyhemoglobin Sodium 134 L Potassium 5.9 H D Chloride Carbon Dioxide 17 L D BUN 47 H Creatinine 2.2 H D Glucose 188 H POC Glucose Lactic Acid Calcium 7.6 L Lactate Dehydrogenase C-Reactive Protein NT-Pro-B Natriuret Pep Total Protein Albumin TSH Arterial Blood Glucose Arterial Blood Ionized Calcium Urine WBC (Auto) Crossmatch 11/03/20 11/03/20 11/03/20 13:20 16:11 20:01 WBC RBC Hgb Hct Seg Neuts % (Manual) Lymphocytes % (Manual) Seg Neutrophils # Man Lymphocytes # (Manual) Monocytes # (Manual) PT INR APTT D-Dimer Heparin Anti-Xa Level ABG pH 7.289 L POC ABG pCO2 31.8 L POC ABG pO2 156.7 H 119.6 H ABG Hemoglobin 10.7 L 9.7 L ABG Oxyhemoglobin 98.2 H ABG Sodium 127.7 L 129.5 L ABG Potassium 5.8 H 5.9 H ABG Chloride ABG Glucose 190 H 174 H Carboxyhemoglobin 0.3 L 0.1 L Sodium Potassium Chloride Carbon Dioxide BUN Creatinine Glucose POC Glucose Lactic Acid 7.40 H* Calcium Lactate Dehydrogenase C-Reactive Protein NT-Pro-B Natriuret Pep Total Protein Albumin TSH Arterial Blood Glucose 190 H 174 H Arterial Blood Ionized Calcium 4.3 L 4.3 L Urine WBC (Auto) Crossmatch 11/03/20 11/04/20 11/04/20 21:14 04:00 04:00 WBC 32.8 H RBC Hgb 11.7 L Hct 35.0 L Seg Neuts % (Manual) 82.0 H Lymphocytes % (Manual) 10.0 L Seg Neutrophils # Man 26.9 H Lymphocytes # (Manual) Monocytes # (Manual) 2.3 H PT INR APTT D-Dimer Heparin Anti-Xa Level 0.73 H ABG pH POC ABG pCO2 POC ABG pO2 ABG Hemoglobin ABG Oxyhemoglobin ABG Sodium ABG Potassium ABG Chloride ABG Glucose Carboxyhemoglobin Sodium 133 L Potassium 5.7 H Chloride Carbon Dioxide 20 L BUN 57 H Creatinine 2.3 H Glucose 129 H POC Glucose Lactic Acid Calcium 7.2 L Lactate Dehydrogenase C-Reactive Protein NT-Pro-B Natriuret Pep Total Protein Albumin TSH Arterial Blood Glucose Arterial Blood Ionized Calcium Urine WBC (Auto) Crossmatch 11/04/20 11/04/20 11/04/20 07:57 11:00 11:55 WBC RBC Hgb Hct Seg Neuts % (Manual) Lymphocytes % (Manual) Seg Neutrophils # Man Lymphocytes # (Manual) Monocytes # (Manual) PT INR APTT D-Dimer Heparin Anti-Xa Level ABG pH POC ABG pCO2 POC ABG pO2 132.7 H ABG Hemoglobin 11.5 L ABG Oxyhemoglobin ABG Sodium 130.6 L ABG Potassium 5.3 H ABG Chloride ABG Glucose 145 H Carboxyhemoglobin 0.2 L Sodium Potassium Chloride Carbon Dioxide BUN Creatinine Glucose POC Glucose 110 H Lactic Acid Calcium Lactate Dehydrogenase C-Reactive Protein NT-Pro-B Natriuret Pep Total Protein Albumin TSH Arterial Blood Glucose 145 H Arterial Blood Ionized Calcium 4.4 L Urine WBC (Auto) 19.0 H Crossmatch 11/04/20 11/04/20 11/04/20 13:01 13:01 17:40 WBC RBC Hgb Hct Seg Neuts % (Manual) Lymphocytes % (Manual) Seg Neutrophils # Man Lymphocytes # (Manual) Monocytes # (Manual) PT INR APTT D-Dimer Heparin Anti-Xa Level 0.26 L ABG pH POC ABG pCO2 POC ABG pO2 ABG Hemoglobin ABG Oxyhemoglobin ABG Sodium ABG Potassium ABG Chloride ABG Glucose Carboxyhemoglobin Sodium Potassium Chloride Carbon Dioxide BUN Creatinine Glucose POC Glucose 135 H Lactic Acid Calcium Lactate Dehydrogenase C-Reactive Protein 8.30 H NT-Pro-B Natriuret Pep Total Protein Albumin TSH Arterial Blood Glucose Arterial Blood Ionized Calcium Urine WBC (Auto) Crossmatch 11/04/20 11/04/20 11/05/20 19:55 23:20 00:53 WBC RBC Hgb 9.7 L 9.0 L Hct 28.3 L D 26.0 L Seg Neuts % (Manual) Lymphocytes % (Manual) Seg Neutrophils # Man Lymphocytes # (Manual) Monocytes # (Manual) PT INR APTT D-Dimer Heparin Anti-Xa Level ABG pH POC ABG pCO2 POC ABG pO2 ABG Hemoglobin ABG Oxyhemoglobin ABG Sodium ABG Potassium ABG Chloride ABG Glucose Carboxyhemoglobin Sodium Potassium Chloride Carbon Dioxide BUN Creatinine Glucose POC Glucose 143 H Lactic Acid Calcium Lactate Dehydrogenase C-Reactive Protein NT-Pro-B Natriuret Pep Total Protein Albumin TSH Arterial Blood Glucose Arterial Blood Ionized Calcium Urine WBC (Auto) Crossmatch 11/05/20 11/05/20 11/05/20 02:16 03:16 03:37 WBC 33.5 H RBC 3.01 L Hgb 8.8 L Hct 25.6 L Seg Neuts % (Manual) 93.5 H Lymphocytes % (Manual) 3.5 L Seg Neutrophils # Man 31.3 H Lymphocytes # (Manual) Monocytes # (Manual) 1.0 H PT INR APTT D-Dimer Heparin Anti-Xa Level 0.99 H ABG pH POC ABG pCO2 POC ABG pO2 131.3 H ABG Hemoglobin 9.2 L ABG Oxyhemoglobin ABG Sodium 131.6 L ABG Potassium ABG Chloride 110.0 H ABG Glucose 168 H Carboxyhemoglobin 0.3 L Sodium Potassium Chloride Carbon Dioxide BUN Creatinine Glucose POC Glucose Lactic Acid Calcium Lactate Dehydrogenase C-Reactive Protein NT-Pro-B Natriuret Pep Total Protein Albumin TSH Arterial Blood Glucose 168 H Arterial Blood Ionized Calcium 4.4 L Urine WBC (Auto) Crossmatch 11/05/20 11/05/20 11/05/20 03:37 05:19 18:18 WBC RBC Hgb Hct Seg Neuts % (Manual) Lymphocytes % (Manual) Seg Neutrophils # Man Lymphocytes # (Manual) Monocytes # (Manual) PT INR APTT D-Dimer Heparin Anti-Xa Level ABG pH POC ABG pCO2 POC ABG pO2 ABG Hemoglobin ABG Oxyhemoglobin ABG Sodium ABG Potassium ABG Chloride ABG Glucose Carboxyhemoglobin Sodium Potassium Chloride 109.5 H Carbon Dioxide BUN 55 H Creatinine 2.1 H Glucose 157 H POC Glucose 142 H 124 H Lactic Acid Calcium 7.0 L Lactate Dehydrogenase C-Reactive Protein NT-Pro-B Natriuret Pep Total Protein Albumin TSH Arterial Blood Glucose Arterial Blood Ionized Calcium Urine WBC (Auto) Crossmatch 11/05/20 11/05/20 11/05/20 19:00 21:20 23:30 WBC RBC Hgb Hct Seg Neuts % (Manual) Lymphocytes % (Manual) Seg Neutrophils # Man Lymphocytes # (Manual) Monocytes # (Manual) PT INR APTT 63.8 H* D-Dimer Heparin Anti-Xa Level ABG pH POC ABG pCO2 POC ABG pO2 ABG Hemoglobin ABG Oxyhemoglobin ABG Sodium ABG Potassium ABG Chloride ABG Glucose Carboxyhemoglobin Sodium Potassium Chloride Carbon Dioxide BUN Creatinine Glucose POC Glucose 156 H Lactic Acid Calcium Lactate Dehydrogenase C-Reactive Protein NT-Pro-B Natriuret Pep Total Protein 4.3 L Albumin 2.1 L TSH Arterial Blood Glucose Arterial Blood Ionized Calcium Urine WBC (Auto) Crossmatch 11/06/20 11/06/20 11/06/20 02:54 04:00 04:00 WBC 33.0 H RBC 2.68 L Hgb 7.7 L Hct 23.3 L Seg Neuts % (Manual) 95.0 H Lymphocytes % (Manual) 2.0 L Seg Neutrophils # Man 31.4 H Lymphocytes # (Manual) 0.7 L Monocytes # (Manual) 1.0 H PT INR APTT D-Dimer Heparin Anti-Xa Level ABG pH POC ABG pCO2 POC ABG pO2 116.5 H ABG Hemoglobin 9.7 L ABG Oxyhemoglobin ABG Sodium 134.5 L ABG Potassium 5.0 H ABG Chloride 109.0 H ABG Glucose 165 H Carboxyhemoglobin 0.3 L Sodium Potassium 5.1 H Chloride 108.6 H Carbon Dioxide BUN 62 H Creatinine 2.2 H Glucose 155 H POC Glucose Lactic Acid Calcium 7.3 L Lactate Dehydrogenase C-Reactive Protein NT-Pro-B Natriuret Pep Total Protein Albumin TSH Arterial Blood Glucose 165 H Arterial Blood Ionized Calcium 4.5 L Urine WBC (Auto) Crossmatch 11/06/20 05:17 WBC RBC Hgb Hct Seg Neuts % (Manual) Lymphocytes % (Manual) Seg Neutrophils # Man Lymphocytes # (Manual) Monocytes # (Manual) PT INR APTT D-Dimer Heparin Anti-Xa Level ABG pH POC ABG pCO2 POC ABG pO2 ABG Hemoglobin ABG Oxyhemoglobin ABG Sodium ABG Potassium ABG Chloride ABG Glucose Carboxyhemoglobin Sodium Potassium Chloride Carbon Dioxide BUN Creatinine Glucose POC Glucose 147 H Lactic Acid Calcium Lactate Dehydrogenase C-Reactive Protein NT-Pro-B Natriuret Pep Total Protein Albumin TSH Arterial Blood Glucose Arterial Blood Ionized Calcium Urine WBC (Auto) Crossmatch Chest x-ray: image reviewed Allied health notes reviewed: nursing
[2020-11-06] MEDS: LACTULOSE 20 GM/30 ML ORAL LIQD PO SCH ×2 (18:01→22:30)
[2020-11-07] MEDS: LACTULOSE 20 GM/30 ML ORAL LIQD PO SCH ×2 (02:16→05:01)
[2020-11-07] MEDS: fentaNYL DRIP Premix 2,000 MCG/100 ML BAG IV SCH ×2 (04:58→15:39)
[2020-11-07] MEDS: methylPREDNISolone Sod Succinate 125 MG/2 ML INJ IV SCH (05:00)
[2020-11-07 05:01] LABS: Hematocrit 21.2 % (35.5-45.6); Hemoglobin 7.1 gm/dl (11.8-15.2); Mean Corpuscular HGB Conc 34 % (32-34); Mean Corpuscular Volume 87 fl (84-94); Platelet Count 176 K/mm3 (140-440); Red Blood Count 2.44 M/mm3 (3.65-5.03); Red Cell Distribution Width 15.4 % (13.2-15.2)
[2020-11-07 05:06] LABS: Calcium 7.5 mg/dL (8.4-10.2)
[2020-11-07 05:56] LABS: Total Cells Counted 200
[2020-11-07 05:57] LABS: Anisocytosis 1+; Platelet Estimate Consistent w Auto
--- NOTE | 2020-11-07 08:18 | Progress Note ---
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 Acute on chronic systolic heart failure exacerbation. Acute hypoxemic respiratory failure. 10/24/2020 Acute CVA with right hemiparesis PT and OT 10/25/2020 Acute CVA with right hemiplegia Rehab consult requested Ejection fraction is 35 to 40% 10/26/2020 patient with acute CVA and right-sided hemiparesis PT evaluated the patient and recommended acute rehab Case management processing the request Possible discharge in 1 to 2 days if stable 10/27/2020; patient is clinically stable, awaiting rehab/SNF placement DC planning per Case management. 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 No new complain. Clinically stable Patient is going for KELLY today. DC planning to rehab/SNF when cleared by neurology. DC planning per case management 10/29/20 patient is doing slightly better. No new complain. Clinically stable, continue physical therapy occupational therapy. Patient is going for KELLY on Sunday. DC planning to rehab/SNF after KELLY on Sunday. DC planning per case management 10/30/20 patient is sitting in chair. No new complain. Clinically stable, continue physical therapy occupational therapy. Patient is going for KELLY on Sunday. Awaiting DC planning to rehab/SNF after KELLY on Sunday. 10/31/20 patient is seen and examined. No new complain. Clinically stable, continue physical therapy occupational therapy. Patient is going for KELLY on Sunday. Awaiting DC planning to rehab/SNF after KELLY on Sunday. 11/01/20 Patient is seen and examined Patient with acute CVA and right-sided hemiparesis Patient is evaluated by PT and recommended acute rehab Patient is going for KELLY today Patient is waiting for DC planning to rehab/SNF after KELLY. 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 11/02/2020. KELLY revealed left atrial appendage thrombus. Mildly dilated left ventricle with mild left ventricular hypertrophy with moderate global left ventricular hypokinesis with EF of 40 to 45%. Anticoagulation per cardiology recommendations. Physical therapy recommendations for acute rehab. 11/03/2020. Patient appears to have worsening aphasia and worsening right-sided weakness today per neurology. MRI brain stat. Leukocytosis likely leukemoid reaction from compartment syndrome. Patient is s/p right lower extremity thombectomy with 4 compartment fasciotomy yesterday. Bleeding from incisions over night. Consider ID consultation. Start empiric antibiotics. 11/04/2020. Patient decompensated yesterday evening with hypotension and worsening mental status. Patient was started on vasopressors and intubated. Patient is currently intubated and on fentanyl for sedation. Patient with worsening leukocytosis. Lactic acidosis likely secondary to compartment syndrome. Patient is s/p right lower extremity thombectomy with 4 compartment fasciotomy on 11/02/2020. Levaquin started empirically yesterday. ID consultation today. Patient also with worsening creatinine secondary to acute kidney injury. 11/05/2020. Patient attempted to pull out his ETT while I was examining him. Continue restraints for safety. Patient did manage to pull out his Winkler catheter and now has hematuria. We will irrigate the bladder and monitor closely patient is on anticoagulation with IV heparin. Continue Levophed drip to maintain MAP >65. Patient currently with mechanical ventilation AC mode rate of 12, tidal volume 500, FiO2 30% and a PEEP of 6. Continue fentanyl for sedation. Consult hematology hypercoagulable state given the arterial and venous thrombi. 11/06/2020. Hematology ordered argatroban and steroid pulse therapy. Follow work-up to rule out HIT. Follow-up pF4 Ab testing, Hgb electrophoresis, cardiolipin ab. Continue Levophed drip to maintain MAP >65. Patient currently with mechanical ventilation AC mode rate of 12, tidal volume 500, FiO2 30% and a PEEP of 6. Continue fentanyl for sedation. Continue antibiotics of cefepime and vancomycin. Sputum, blood and urine cultures are negative. Continue restraints for safety. 11/07/2020. Continue steroid pulse therapy per hematology recommendations. Argatroban on hold for GI bleeding and hematuria. Follow-up HIT panel and pF4 Ab testing, Hgb electrophoresis, cardiolipin ab. Continue Levophed drip to maintain MAP >65. Patient currently with mechanical ventilation AC mode rate of 12, tidal volume 500, FiO2 30% and a PEEP of 6. Continue fentanyl for sedation. Continue antibiotics of cefepime and vancomycin. Sputum, blood and urine cultures are negative. Continue restraints for safety.. The high probability of a clinically significant, sudden or life threatening deterioration of the [cardiac, respiratory and hemodynamic] system(s) required my full and direct attention, intervention and personal management. The [facility] critical care time was [32] minutes. This time is in addition to time spent performing reported procedures but includes the following: [x] Data Review and interpretation [x] Patient assessment and monitoring of vital signs [x] Documentation [x] Medication orders and management History Interval history: Patient decompensated yesterday evening with hypotension and worsening mental status. Patient was started on vasopressors and intubated. Patient is currently intubated and on fentanyl for sedation. Hospitalist Physical - Constitutional Vitals: Temp Pulse Resp BP Pulse Ox 98.0 F 79 12 120/69 100 11/07/20 07:00 11/07/20 07:11 11/07/20 06:15 11/07/20 07:11 11/07/20 07:11 General appearance: Present: other (Obtunded, intubated) - EENT Eyes: Present: PERRL, EOM intact ENT: hearing intact, clear oral mucosa, dentition normal - Neck Neck: Present: supple, normal ROM - Respiratory Respiratory effort: normal Respiratory: bilateral: CTA - Cardiovascular Rhythm: regular Heart Sounds: Present: S1 & S2. Absent: gallop, rub - Extremities Extremities: no ischemia, No edema, Full ROM - Abdominal General gastrointestinal: soft, non-tender, non-distended, normal bowel sounds - Integumentary Integumentary: Present: clear, warm, dry - Neurologic Neurologic: CNII-XII intact, moves all extremities HEART Score - HEART Score Troponin: Troponin T 0.026 ng/mL (0.00-0.029) 10/23/20 16:39 Results - Labs CBC & Chem 7: 11/07/20 04:00 11/07/20 04:00 Labs: Laboratory Last Values WBC 28.9 K/mm3 (4.5-11.0) H 11/07/20 04:00 RBC 2.44 M/mm3 (3.65-5.03) L 11/07/20 04:00 Hgb 7.1 gm/dl (11.8-15.2) L 11/07/20 04:00 Hct 21.2 % (35.5-45.6) L 11/07/20 04:00 MCV 87 fl (84-94) 11/07/20 04:00 MCH 29 pg (28-32) 11/07/20 04:00 MCHC 34 % (32-34) 11/07/20 04:00 RDW 15.4 % (13.2-15.2) H 11/07/20 04:00 Plt Count 176 K/mm3 (140-440) 11/07/20 04:00 Lymph % (Auto) 27.8 % (13.4-35.0) 10/23/20 13:32 [place] % (Auto) 6.0 % (0.0-7.3) 10/23/20 13:32 Eos % (Auto) 1.6 % (0.0-4.3) 10/23/20 13:32 Baso % (Auto) 0.7 % (0.0-1.8) 10/23/20 13:32 Lymph # (Auto) 1.5 K/mm3 (1.2-5.4) 10/23/20 13:32 [place] # (Auto) 0.3 K/mm3 (0.0-0.8) 10/23/20 13:32 Eos # (Auto) 0.1 K/mm3 (0.0-0.4) 10/23/20 13:32 Baso # (Auto) 0.0 K/mm3 (0.0-0.1) 10/23/20 13:32 Add Manual Diff Complete 11/07/20 04:00 Total Counted 200 11/07/20 04:00 Seg Neutrophils % Clerical Aide Teacher 11/07/20 04:00 Seg Neuts % (Manual) 95.0 % (40.0-70.0) H 11/07/20 04:00 Lymphocytes % (Manual) 3.0 % (13.4-35.0) L 11/07/20 04:00 Monocytes % (Manual) 2.0 % (0.0-7.3) 11/07/20 04:00 Metamyelocytes % 1.0 % 11/04/20 04:00 Nucleated RBC % Not Reportable 11/07/20 04:00 Seg Neutrophils # 3.4 K/mm3 (1.8-7.7) 10/23/20 13:32 Seg Neutrophils # Man 27.5 K/mm3 (1.8-7.7) H 11/07/20 04:00 Band Neutrophils # 0.0 K/mm3 11/07/20 04:00 Lymphocytes # (Manual) 0.9 K/mm3 (1.2-5.4) L 11/07/20 04:00 Abs React Lymphs (Man) 0.0 K/mm3 11/07/20 04:00 Monocytes # (Manual) 0.6 K/mm3 (0.0-0.8) 11/07/20 04:00 Eosinophils # (Manual) 0.0 K/mm3 (0.0-0.4) 11/07/20 04:00 Basophils # (Manual) 0.0 K/mm3 (0.0-0.1) 11/07/20 04:00 Metamyelocytes # 0.0 K/mm3 11/07/20 04:00 Myelocytes # 0.0 K/mm3 11/07/20 04:00 Promyelocytes # 0.0 K/mm3 11/07/20 04:00 Blast Cells # 0.0 K/mm3 11/07/20 04:00 WBC Morphology Not Reportable 11/07/20 04:00 Hypersegmented Neuts Not Reportable 11/07/20 04:00 Hyposegmented Neuts Not Reportable 11/07/20 04:00 Hypogranular Neuts Not Reportable 11/07/20 04:00 Smudge Cells Not Reportable 11/07/20 04:00 Toxic Granulation Not Reportable 11/07/20 04:00 Toxic Vacuolation Not Reportable 11/07/20 04:00 Dohle Bodies Not Reportable 11/07/20 04:00 Pelger-Huet Anomaly Not Reportable 11/07/20 04:00 Demario Rods Not Reportable 11/07/20 04:00 Platelet Estimate Consistent w auto 11/07/20 04:00 Clumped Platelets Not Reportable 11/07/20 04:00 Plt Clumps, EDTA Not Reportable 11/07/20 04:00 Large Platelets Not Reportable 11/07/20 04:00 Giant Platelets Not Reportable 11/07/20 04:00 Platelet Satelliting Not Reportable 11/07/20 04:00 Plt Morphology Comment Not Reportable 11/07/20 04:00 RBC Morphology Not Reportable 11/07/20 04:00 Dimorphic RBCs Not Reportable 11/07/20 04:00 Polychromasia Not Reportable 11/07/20 04:00 Hypochromasia Not Reportable 11/07/20 04:00 Poikilocytosis Not Reportable 11/07/20 04:00 Anisocytosis 1+ 11/07/20 04:00 Microcytosis Not Reportable 11/07/20 04:00 Macrocytosis Not Reportable 11/07/20 04:00 Spherocytes Not Reportable 11/07/20 04:00 Pappenheimer Bodies Not Reportable 11/07/20 04:00 Sickle Cells Not Reportable 11/07/20 04:00 Target Cells Not Reportable 11/07/20 04:00 Tear Drop Cells Not Reportable 11/07/20 04:00 Ovalocytes Not Reportable 11/07/20 04:00 Helmet Cells Not Reportable 11/07/20 04:00 [place] Bodies Not Reportable 11/07/20 04:00 [place] Rings Not Reportable 11/07/20 04:00 [place] Cells Not Reportable 11/07/20 04:00 Bite Cells Not Reportable 11/07/20 04:00 Crenated Cell Not Reportable 11/07/20 04:00 Elliptocytes Not Reportable 11/07/20 04:00 Acanthocytes (Spur) Not Reportable 11/07/20 04:00 Rouleaux Not Reportable 11/07/20 04:00 Hemoglobin C Crystals Not Reportable 11/07/20 04:00 Schistocytes Not Reportable 11/07/20 04:00 Malaria parasites Not Reportable 11/07/20 04:00 Lico Bodies Not Reportable 11/07/20 04:00 Hem Pathologist Commnt No 11/07/20 04:00 PT 16.2 Sec. (12.2-14.9) H 11/02/20 19:55 INR 1.30 (0.87-1.13) H 11/02/20 19:55 APTT 32.8 Sec. (24.2-36.6) 11/06/20 05:00 D-Dimer 4139.61 ng/mlDDU (0-234) H 10/23/20 18:23 Heparin Anti-Xa Level 0.43 U.I./ml (0.3-0.7) 11/05/20 11:30 ABG pH 7.398 (7.320-7.450) 11/07/20 04:00 POC ABG pCO2 40.2 mmHg (32.0-48.0) 11/07/20 04:00 POC ABG pO2 130.1 mmHg (83-108) H 11/07/20 04:00 POC ABG HCO3 24.2 11/07/20 04:00 ABG O2 Saturation 98.8 (0-100) 11/07/20 04:00 POC ABG Base Excess -0.5 11/07/20 04:00 ABG Hemoglobin 7.5 (12.0-17.5) L 11/07/20 04:00 ABG Oxyhemoglobin 97.6 (94-98) 11/07/20 04:00 ABG Methemoglobin 0.3 (0.0-1.5) 11/07/20 04:00 ABG Sodium 137.8 mmol/L (136.0-145.0) 11/07/20 04:00 ABG Potassium 5.0 mmol/L (3.40-4.50) H 11/07/20 04:00 ABG Chloride 110.0 mmol/L (98-107) H 11/07/20 04:00 ABG Glucose 152 mg/dL (65-95) H 11/07/20 04:00 Carboxyhemoglobin 0.9 (0.5-1.5) 11/07/20 04:00 FiO2 % 30.0 11/07/20 04:00 Sodium 141 mmol/L (137-145) 11/07/20 04:00 Potassium 5.3 mmol/L (3.6-5.0) H 11/07/20 04:00 Chloride 108.2 mmol/L (98-107) H 11/07/20 04:00 Carbon Dioxide 27 mmol/L (22-30) 11/07/20 04:00 Anion Gap 11 mmol/L 11/07/20 04:00 BUN 77 mg/dL (9-20) H 11/07/20 04:00 Creatinine 2.4 mg/dL (0.8-1.3) H 11/07/20 04:00 Estimated GFR 33 ml/min 11/07/20 04:00 BUN/Creatinine Ratio 32 % 11/07/20 04:00 Glucose 144 mg/dL (75-100) H 11/07/20 04:00 POC Glucose 132 mg/dL (70-105) H 11/06/20 17:26 Lactic Acid 1.30 mmol/L (0.7-2.0) 11/04/20 13:01 Calcium 7.5 mg/dL (8.4-10.2) L 11/07/20 04:00 Magnesium 2.20 mg/dL (1.7-2.3) 10/23/20 20:33 Ferritin 238.5 ng/mL (30.0-300.0) 10/23/20 18:23 Total Bilirubin 0.20 mg/dL (0.1-1.2) 11/05/20 19:00 Direct Bilirubin < 0.2 mg/dL (0-0.2) 11/05/20 19:00 Indirect Bilirubin 0.0 mg/dL 11/05/20 19:00 AST 25 units/L (5-40) 11/05/20 19:00 ALT 36 units/L (7-56) 11/05/20 19:00 Alkaline Phosphatase 40 units/L (35-129) 11/05/20 19:00 Lactate Dehydrogenase 334 units/L (91-180) H 10/23/20 18:23 Troponin T 0.026 ng/mL (0.00-0.029) 10/23/20 16:39 C-Reactive Protein 8.30 mg/dL (0.00-1.30) H 11/04/20 13:01 NT-Pro-B Natriuret Pep 5806 pg/mL (0-900) H 10/23/20 13:32 Total Protein 4.3 g/dL (6.3-8.2) L 11/05/20 19:00 Albumin 2.1 g/dL (3.9-5) L 11/05/20 19:00 Albumin/Globulin Ratio 1.0 % 11/05/20 19:00 Triglycerides 60 mg/dL (2-149) 10/24/20 09:29 Cholesterol 139 mg/dL (50-199) 10/24/20 09:29 LDL Cholesterol Direct 87 mg/dL (50-130) 10/24/20 09:29 HDL Cholesterol 46 mg/dL (40-59) 10/24/20 09:29 Cholesterol/HDL Ratio 3.02 % 10/24/20 09:29 Procalcitonin 0.99 ng/mL (<0.15) 11/03/20 21:14 TSH 6.540 mlU/mL (0.270-4.200) H 10/23/20 18:23 TSH 7.100 mlU/mL (0.270-4.200) H 10/23/20 18:23 Free T4 1.33 ng/dL (0.76-1.46) 10/23/20 18:23 Arterial Blood Glucose 152 mg/dL (65-95) H 11/07/20 04:00 Arterial Blood Ionized Calcium 4.6 mg/dL (4.6-5.3) 11/07/20 04:00 Urine Color Yellow (Yellow) 11/04/20 11:00 Urine Turbidity Hazy (Clear) 11/04/20 11:00 Urine pH 5.0 (5.0-7.0) 11/04/20 11:00 Ur Specific [place] 1.017 (1.003-1.030) 11/04/20 11:00 Urine Protein 30 mg/dl mg/dL (Negative) 11/04/20 11:00 Urine Glucose (UA) 50 mg/dL (Negative) 11/04/20 11:00 Urine Ketones Neg mg/dL (Negative) 11/04/20 11:00 Urine Blood Neg (Negative) 11/04/20 11:00 Urine Nitrite Neg (Negative) 11/04/20 11:00 Urine Bilirubin Neg (Negative) 11/04/20 11:00 Urine Urobilinogen < 2.0 mg/dL (<2.0) 11/04/20 11:00 Ur Leukocyte Esterase Tr (Negative) 11/04/20 11:00 Urine WBC (Auto) 19.0 /HPF (0.0-6.0) H 11/04/20 11:00 Urine RBC (Auto) 3.0 /HPF (0.0-6.0) 11/04/20 11:00 U Epithel Cells (Auto) < 1.0 /HPF (0-13.0) 11/04/20 11:00 Urine Mucus Few /HPF 11/04/20 11:00 Urine Eosinophils None seen (None Seen) 11/04/20 12:50 Urine Creatinine < 4.2 mg/dL (0.1-20.0) 11/04/20 12:50 Urine Sodium 10 mmol/L 11/04/20 12:50 Random Vancomycin 5.0 ug/mL (0-40.0) 11/06/20 04:00 Coronavirus (PCR) Negative (Negative) 10/24/20 09:57 Blood Type O POSITIVE 11/02/20 15:00 Antibody Screen Negative 11/02/20 15:00 Crossmatch See Detail 11/02/20 15:00 Microbiology: Microbiology 11/04/20 13:01 Peripheral/Venous Blood Culture - Preliminary NO GROWTH AFTER 48 HOURS 11/04/20 13:01 Peripheral/Venous Blood Culture - Preliminary NO GROWTH AFTER 48 HOURS Winkler/IV: Voiding Method Indwelling Catheter Active Medications - Current Medications Current Medications: Generic Name Dose Route Start Last Admin Trade Name Freq PRN Reason Stop Dose Admin Acetaminophen 650 mg 10/23/20 20:00 Acetaminophen 325 Mg Tab PO Q4H PRN Pain, Mild (1-3) Lipase/Protease/Amylase 1 each 11/04/20 13:25 Lipase 10,500/Protease 25,000/Amylase 43,750 (Units) Dr Fernández FEEDTUBE PRN PRN For Clogged Feeding Tube Ascorbic Acid 500 mg 10/23/20 22:00 11/06/20 22:26 Ascorbic Acid 500 Mg Tab PO 500 mg BID ALEX Administration Aspirin 325 mg 10/24/20 10:00 11/06/20 09:56 Aspirin 325 Mg Tab PO 325 mg QDAY ALEX Administration Atorvastatin Calcium 40 mg 10/23/20 22:00 11/06/20 22:26 Atorvastatin 40 Mg Tab PO 40 mg QHS ALEX Administration Bisacodyl 10 mg 10/23/20 20:00 Bisacodyl 10 Mg Rect Supp NE QDAY PRN Constipation Cholecalciferol 1,000 unit 10/24/20 10:00 11/06/20 10:01 Cholecalciferol (Vit D3) 1000 Unit (25 Mcg) Tab PO 1,000 unit QDAY ALEX Administration Docusate Sodium 100 mg 11/02/20 12:00 11/06/20 22:26 Docusate Sodium 100 Mg Cap PO 100 mg BID ALEX Administration Famotidine 20 mg 11/04/20 10:00 11/06/20 09:57 Famotidine 20 Mg/2 Ml Inj IV 20 mg DAILY ALEX Administration Fentanyl 50 mcg 11/03/20 16:46 Fentanyl 100 Mcg/2 Ml Inj IV Q10MIN PRN ANALGESIA Hydrophilic Ointment 1 applic 11/03/20 16:46 Lip Therapy Vaseline TP Q2HR PRN Dry Lips Sodium Chloride 500 mls @ 125 mls/hr 11/03/20 16:00 11/04/20 05:06 Nacl 0.9% 500 Ml IV 125 mls/hr DIRECT ALEX Administration Fentanyl Citrate 2,000 mcg in 100 mls @ 4.86 mls/hr 11/03/20 17:24 11/07/20 04:58 Fentanyl Drip Premix IV 2 mcg/kg/hr TITR ALEX 9.72 mls/hr Administration Protocol 1 MCG/KG/HR NORepinephrine/NS 8 MG-250 ML 8 mg in 250 mls @ 3.75 mls/hr 11/03/20 18:00 11/06/20 19:12 Norepinephrine/Ns 8 Mg-250 Ml (Double Conc) IV 6 mcg/min TITRATE ALEX 11.25 mls/hr Administration Protocol 2 MCG/MIN Cefepime HCl 2 gm in 100 mls @ 200 mls/hr 11/04/20 11:00 11/06/20 22:26 Cefepime/Ns 2 Gm/100 Ml IV 200 mls/hr Q12H ALEX Administration Protocol Argatroban 250 mg/ Sodium 250 mls @ 3.168 mls/hr 11/05/20 18:00 11/05/20 22:06 Chloride IV 0 mcg/kg/min TITR ALEX 0 mls/hr Titration Protocol 0.5 MCG/KG/MIN Magnesium Hydroxide 30 ml 10/23/20 20:00 11/06/20 13:31 Magnesium Hydroxide (Mom) Oral Liqd Udc PO 30 ml Q4H PRN Administration Constipation Methylprednisolone Sodium Succinate 80 mg 11/05/20 18:00 11/07/20 05:00 Methylprednisolone Sod Succinate 125 Mg/2 Ml Inj IV 11/07/20 17:59 80 mg Q12H ALEX Administration Metoclopramide HCl 10 mg 10/23/20 20:00 Metoclopramide 10 Mg Tab PO Q6H PRN Nausea And Vomiting Metoprolol Tartrate 6.25 mg 10/27/20 10:00 11/06/20 22:29 Metoprolol Tartrate 25 Mg Tab PO Not Given BID ALEX Multi-Ingred Cream/Lotion/Oil/Oint 1 applic 11/03/20 16:46 Mineral Oil/Petrolatum, White Ophth Oint 3.5 Gm OU Q4HR PRN Dry Eye(s) Ondansetron HCl 4 mg 10/23/20 20:00 11/06/20 03:13 Ondansetron 4 Mg/2 Ml Inj IV 4 mg Q8H PRN Administration Nausea And Vomiting Oxycodone/Acetaminophen 1 tab 11/03/20 09:27 Oxycodone /Acetaminophen 5-325mg Tab PO Q6H PRN Pain, Moderate (4-6) Promethazine HCl 25 mg 10/23/20 20:00 Promethazine 25 Mg Rect Supp NE Q6H PRN Nausea And Vomiting Simple Syrup 15 ml 11/04/20 13:25 Simple Syrup 15 Ml FEEDTUBE PRN PRN Hypoglycemia Simple Syrup 30 ml 11/04/20 13:25 Simple Syrup 15 Ml FEEDTUBE PRN PRN Hypoglycemia Sodium Bicarbonate 325 mg 11/04/20 13:25 Sodium Bicarbonate 325 Mg Tab FEEDTUBE PRN PRN For Clogged Feeding Tube Sodium Chloride 10 ml 10/23/20 20:00 11/04/20 21:25 Sodium Chloride 0.9% 10 Ml Flush Syringe IV 10 ml PRN PRN Administration LINE FLUSH Zinc Sulfate 220 mg 10/23/20 22:00 11/06/20 22:26 Zinc Sulfate 220 Mg Cap PO 220 mg BID ALEX Administration Nutrition/Malnutrition Assess - Dietary Evaluation Nutrition/Malnutrition Findings: Nutrition Notes Start: 10/24/20 11:33 Freq: Status: Active Protocol: Document 11/04/20 13:14 AL (Rec: 11/04/20 13:25 AL [id number]) Co-Sign 11/04/20 13:14 LP Nutrition Notes Need for Assessment generated from: MD Order Initial or Follow up Reassessment Current Diagnosis Acute Kidney Injury, Hypertension,Heart Failure, Respiratory Failure,Stroke Other Pertinent Diagnosis pneu Current Diet Cardiac Diet Labs/Tests K 5.7 BUN 57 Cr 2.3 Pertinent Medications Norepinephine 4.86 ml/hr NS at 125 ml/h Colace Solumedrol Height 5 ft 11 in Weight 97.2 kg [place] Body Weight (kg) 78.18 BMI 29.9 Intake Prior to Admission Poor Weight Status Overweight Subjective/Other Information MD order for write/manage TF. Pt has high K lab values and has an STACEY. Pt. s/p open thrombectomy of right leg and fasciotomy. Will calculate Nepro TF. Burn Absent Trauma Absent Current % PO Negligible Minimum of two criteria No physical signs of malnutrition #2 Nutrition Diagnosis Inadequate oral intake Etiology Respiratory failure As Evidenced by Signs and Symptoms Pt intubated and unable to consume PO Is patient on ventilator? Yes Is Patient Ambulatory and/or Out of Bed No REE-([facility]-confined to bed) 2110.500 Additional Notes Protein: 116-195 g (1.2-2.0 g/ kg ABW) Fluid: 1 ml/kcal Nutrition Intervention Change Diet Order: Start TF Nutrition Support: Start Nepro 1.8 at 25 ml/hr and increase by 10 ml q8h until 45 ml (goal rate) is reached. Flush 150 ml q4h Kcal 1,944 Protein (gm) 88 Fluid (mL) 786 Goal #1 Meet at least 75% of energy and protein needs via TF Goal #2 TF tolerance. Anticipated Discharge Needs: Unable to determine at the moment. Follow-Up By: 11/05/20 Additional Comments FU for new TF, vent status, and renal labs.
[2020-11-07] MEDS ORDERED: SODIUM POLYSTYRENE 15 GM/60 ML ORAL LIQD PO ONE (08:51)
--- NOTE | 2020-11-07 08:51 | Progress Note ---
Assessment and Plan 1. Acute kidney injury: Vasomotor STACEY in the setting of shock. Renal US negative for hydro. Monitor renal function. Renal prognosis is guarded. Creatinine level increasing. Avoid nephrotoxic agents. Meds dosage based on GFR. 2. FEN: Hyperkalemia, Kayexalate ordered, monitor. Hyperchloremia, monitor. Monitor lytes and volume status. 3. Severe sepsis with shock: Etiology unclear, rule out bacteremia, UTI, pneumonia and other nosocomial infections. Levophed. Followed by ID. 4. 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 Seen by Neurology. 5. Acute hypoxemic respiratory failure: Intubated, on vent. 6. Acute on chronic systolic heart failure: EF 40-45%. Followed by [facility]. 7. Left atrial thrombus: Argatroban. 8. Acute R LE ischemia: S/p thrombectomy. 9. Normochromic anemia: Monitor. Subjective: Patient was seen and examined at the bedside. Examination: General appearance: well-developed, appears stated age, no distress, intubated, on vent, NG tube HEENT: SCOTTY, atraumatic Neck: trachea midline Respiratory: Clear to Auscultation Heart: S1S2, regular, no murmur Abdomen: soft, appears distended, bowel sounds heard, NT Integumentary: R LE dressing noted Neurologic: opens eyes, not responding Ext: bilateral LE edema noted, R > L : Winkler catheter Subjective Date of service: 11/07/20 Principal diagnosis: CVA, Atrial Appendage Thrombus, Acute Limb Ischemia Objective - Vital Signs Vital signs: Vital Signs - 12hr 11/06/20 11/06/20 11/06/20 21:00 21:15 21:30 Temperature Pulse Rate 65 64 64 Respiratory 12 12 12 Rate Blood Pressure 112/60 110/57 111/59 O2 Sat by Pulse 100 100 100 Oximetry 11/06/20 11/06/20 11/06/20 21:45 22:00 22:07 Temperature Pulse Rate 64 66 63 Respiratory 12 12 12 Rate Blood Pressure 111/57 112/58 112/58 O2 Sat by Pulse 100 100 100 Oximetry 11/06/20 11/06/20 11/06/20 22:15 22:30 22:45 Temperature Pulse Rate 60 73 68 Respiratory 12 12 12 Rate Blood Pressure 90/49 116/69 112/65 O2 Sat by Pulse 100 100 100 Oximetry 11/06/20 11/06/20 11/06/20 23:00 23:15 23:30 Temperature Pulse Rate 69 69 70 Respiratory 12 13 13 Rate Blood Pressure 113/69 110/67 111/66 O2 Sat by Pulse 100 100 100 Oximetry 11/06/20 11/06/20 11/06/20 23:43 23:45 23:58 Temperature 97.6 F Pulse Rate 75 79 Respiratory 14 Rate Blood Pressure 121/73 121/73 O2 Sat by Pulse 100 100 Oximetry 11/07/20 11/07/20 11/07/20 00:00 00:15 00:30 Temperature Pulse Rate 75 81 72 Respiratory 14 11 L 12 Rate Blood Pressure 111/70 123/56 99/64 O2 Sat by Pulse 100 100 100 Oximetry 11/07/20 11/07/20 11/07/20 00:45 01:00 01:15 Temperature Pulse Rate 76 81 73 Respiratory 13 12 12 Rate Blood Pressure 104/68 116/77 100/64 O2 Sat by Pulse 100 100 100 Oximetry 11/07/20 11/07/20 11/07/20 01:30 01:45 02:01 Temperature Pulse Rate 70 68 80 Respiratory 12 12 16 Rate Blood Pressure 100/64 106/60 139/69 O2 Sat by Pulse 100 100 100 Oximetry 11/07/20 11/07/20 11/07/20 02:15 02:31 02:45 Temperature Pulse Rate 71 83 74 Respiratory 12 17 13 Rate Blood Pressure 99/64 131/107 103/63 O2 Sat by Pulse 100 100 100 Oximetry 11/07/20 11/07/20 11/07/20 03:00 03:05 03:15 Temperature Pulse Rate 70 70 84 Respiratory 12 15 Rate Blood Pressure 106/61 106/61 116/69 O2 Sat by Pulse 100 100 100 Oximetry 11/07/20 11/07/20 11/07/20 03:30 03:45 04:00 Temperature 98.8 F Pulse Rate 78 84 Respiratory 13 15 Rate Blood Pressure 116/74 116/74 O2 Sat by Pulse 100 100 100 Oximetry 11/07/20 11/07/20 11/07/20 04:01 04:15 04:30 Temperature Pulse Rate 78 81 83 Respiratory 14 14 13 Rate Blood Pressure 128/63 124/70 123/70 O2 Sat by Pulse 100 100 100 Oximetry 11/07/20 11/07/20 11/07/20 04:45 05:00 05:15 Temperature Pulse Rate 79 80 74 Respiratory 14 13 13 Rate Blood Pressure 115/62 112/76 126/67 O2 Sat by Pulse 100 100 100 Oximetry 11/07/20 11/07/20 11/07/20 05:31 05:45 06:01 Temperature Pulse Rate 76 77 73 Respiratory 11 L 14 11 L Rate Blood Pressure 134/65 132/60 117/58 O2 Sat by Pulse 100 100 100 Oximetry 11/07/20 11/07/20 11/07/20 06:15 06:31 06:45 Temperature Pulse Rate 78 71 72 Respiratory 12 12 12 Rate Blood Pressure 119/64 93/50 100/58 O2 Sat by Pulse 100 100 100 Oximetry 11/07/20 11/07/20 11/07/20 07:00 07:11 07:15 Temperature 98.0 F Pulse Rate 78 79 78 Respiratory 13 13 Rate Blood Pressure 120/69 120/69 128/68 O2 Sat by Pulse 100 100 100 Oximetry 11/07/20 11/07/20 11/07/20 07:30 07:45 08:01 Temperature Pulse Rate 76 78 81 Respiratory 12 13 13 Rate Blood Pressure 115/62 118/69 125/68 O2 Sat by Pulse 100 100 100 Oximetry 11/07/20 11/07/20 08:15 08:30 Temperature Pulse Rate 74 70 Respiratory 12 12 Rate Blood Pressure 119/63 107/59 O2 Sat by Pulse 100 100 Oximetry - Lab 11/08/20 04:39 11/08/20 04:39 Most recent lab results ABG pH 7.398 (7.320-7.450) 11/07/20 04:00 ABG O2 Saturation 98.8 (0-100) 11/07/20 04:00 Calcium 7.5 mg/dL (8.4-10.2) L 11/07/20 04:00 Magnesium 2.20 mg/dL (1.7-2.3) 10/23/20 20:33 Urine Creatinine < 4.2 mg/dL (0.1-20.0) 11/04/20 12:50 Urine Sodium 10 mmol/L 11/04/20 12:50 Medications & Allergies - Medications Allergies/Adverse Reactions: Allergies No Known Allergies Allergy (Unverified 10/23/20 12:44) Home Medications: Home Medications Medication Instructions Recorded Confirmed Last Taken Type Levothyroxine Sodium 150 mcg PO DAILY 10/31/20 10/31/20 Unknown History [Levothyroxine] carvediloL [Coreg] 6.25 mg PO BID 10/31/20 10/31/20 Unknown History lisinopriL [Lisinopril] 10 mg PO DAILY 10/31/20 10/31/20 Unknown History Active Medications: Generic Name Dose Route Start Last Admin Trade Name Freq PRN Reason Stop Dose Admin Acetaminophen 650 mg 10/23/20 20:00 Acetaminophen 325 Mg Tab PO Q4H PRN Pain, Mild (1-3) Lipase/Protease/Amylase 1 each 11/04/20 13:25 Lipase 10,500/Protease 25,000/Amylase 43,750 (Units) Dr Fernández FEEDTUBE PRN PRN For Clogged Feeding Tube Ascorbic Acid 500 mg 10/23/20 22:00 11/06/20 22:26 Ascorbic Acid 500 Mg Tab PO 500 mg BID ALEX Administration Aspirin 325 mg 10/24/20 10:00 11/06/20 09:56 Aspirin 325 Mg Tab PO 325 mg QDAY ALEX Administration Atorvastatin Calcium 40 mg 10/23/20 22:00 11/06/20 22:26 Atorvastatin 40 Mg Tab PO 40 mg QHS ALEX Administration Bisacodyl 10 mg 10/23/20 20:00 Bisacodyl 10 Mg Rect Supp [place] QDAY PRN Constipation Cholecalciferol 1,000 unit 10/24/20 10:00 11/06/20 10:01 Cholecalciferol (Vit D3) 1000 Unit (25 Mcg) Tab PO 1,000 unit QDAY ALEX Administration Docusate Sodium 100 mg 11/02/20 12:00 11/06/20 22:26 Docusate Sodium 100 Mg Cap PO 100 mg BID ALEX Administration Famotidine 20 mg 11/04/20 10:00 11/06/20 09:57 Famotidine 20 Mg/2 Ml Inj IV 20 mg DAILY ALEX Administration Fentanyl 50 mcg 11/03/20 16:46 Fentanyl 100 Mcg/2 Ml Inj IV Q10MIN PRN ANALGESIA Hydrophilic Ointment 1 applic 11/03/20 16:46 Lip Therapy Vaseline TP Q2HR PRN Dry Lips Sodium Chloride 500 mls @ 125 mls/hr 11/03/20 16:00 11/04/20 05:06 Nacl 0.9% 500 Ml IV 125 mls/hr DIRECT ALEX Administration Fentanyl Citrate 2,000 mcg in 100 mls @ 4.86 mls/hr 11/03/20 17:24 11/07/20 04:58 Fentanyl Drip Premix IV 2 mcg/kg/hr TITR ALEX 9.72 mls/hr Administration Protocol 1 MCG/KG/HR NORepinephrine/NS 8 MG-250 ML 8 mg in 250 mls @ 3.75 mls/hr 11/03/20 18:00 11/06/20 19:12 Norepinephrine/Ns 8 Mg-250 Ml (Double Conc) IV 6 mcg/min TITRATE ALEX 11.25 mls/hr Administration Protocol 2 MCG/MIN Cefepime HCl 2 gm in 100 mls @ 200 mls/hr 11/04/20 11:00 11/06/20 22:26 Cefepime/Ns 2 Gm/100 Ml IV 200 mls/hr Q12H ALEX Administration Protocol Argatroban 250 mg/ Sodium 250 mls @ 3.168 mls/hr 11/05/20 18:00 11/05/20 22:06 Chloride IV 0 mcg/kg/min TITR ALEX 0 mls/hr Titration Protocol 0.5 MCG/KG/MIN Magnesium Hydroxide 30 ml 10/23/20 20:00 11/06/20 13:31 Magnesium Hydroxide (Mom) Oral Liqd Udc PO 30 ml Q4H PRN Administration Constipation Methylprednisolone Sodium Succinate 80 mg 11/05/20 18:00 11/07/20 05:00 Methylprednisolone Sod Succinate 125 Mg/2 Ml Inj IV 11/07/20 17:59 80 mg Q12H ALEX Administration Metoclopramide HCl 10 mg 10/23/20 20:00 Metoclopramide 10 Mg Tab PO Q6H PRN Nausea And Vomiting Metoprolol Tartrate 6.25 mg 10/27/20 10:00 11/06/20 22:29 Metoprolol Tartrate 25 Mg Tab PO Not Given BID [facility] Multi-Ingred Cream/Lotion/Oil/Oint 1 applic 11/03/20 16:46 Mineral Oil/Petrolatum, White Ophth Oint 3.5 Gm OU Q4HR PRN Dry Eye(s) Ondansetron HCl 4 mg 10/23/20 20:00 11/06/20 03:13 Ondansetron 4 Mg/2 Ml Inj IV 4 mg Q8H PRN Administration Nausea And Vomiting Oxycodone/Acetaminophen 1 tab 11/03/20 09:27 Oxycodone /Acetaminophen 5-325mg Tab PO Q6H PRN Pain, Moderate (4-6) Promethazine HCl 25 mg 10/23/20 20:00 Promethazine 25 Mg Rect Supp [place] Q6H PRN Nausea And Vomiting Simple Syrup 15 ml 11/04/20 13:25 Simple Syrup 15 Ml FEEDTUBE PRN PRN Hypoglycemia Simple Syrup 30 ml 11/04/20 13:25 Simple Syrup 15 Ml FEEDTUBE PRN PRN Hypoglycemia Sodium Bicarbonate 325 mg 11/04/20 13:25 Sodium Bicarbonate 325 Mg Tab FEEDTUBE PRN PRN For Clogged Feeding Tube Sodium Chloride 10 ml 10/23/20 20:00 11/04/20 21:25 Sodium Chloride 0.9% 10 Ml Flush Syringe IV 10 ml PRN PRN Administration LINE FLUSH Zinc Sulfate 220 mg 10/23/20 22:00 11/06/20 22:26 Zinc Sulfate 220 Mg Cap PO 220 mg BID ALEX Administration
--- NOTE | 2020-11-07 08:51 | XRay Report ---
ABDOMEN 2 VIEWS INDICATION / CLINICAL INFORMATION: constipation; colon distension. COMPARISON: 11/05/2020 FINDINGS: TUBES / LINES: NG tube noted in appropriate position projected over the gastric lumen. BOWEL GAS PATTERN: Gas-filled minimally distended loops of bowel, unchanged from prior. Abundant feca l material noted throughout the colon and rectal vault. FREE AIR / EXTRALUMINAL GAS: None seen. ADDITIONAL FINDINGS: No significant additional findings. CHEST: Visualized chest shows no significant abnormality. IMPRESSION: 1. Abundant fecal material noted throughout the colon and rectal vault, consistent with provided hist ory of constipation. These findings are minimally improved when compared to 11/05/2020. 2. Gas-filled and distended bowel loops are similar to prior exam. 3. NG tube in appropriate position. Signer Name: Adam Wells MD Signed: 11/07/2020 8:47 AM Workstation Name: [email or web address]
--- NOTE | 2020-11-07 08:53 | XRay Report ---
CHEST 1 VIEW 11/07/2020 7:41 AM INDICATION / CLINICAL INFORMATION: follow up respiratory failure. COMPARISON: 11/06/2020 FINDINGS: SUPPORT DEVICES: Stable, satisfactory device positioning. HEART / MEDIASTINUM: Stable. LUNGS / PLEURA: No significant pulmonary or pleural abnormality. No pneumothorax. ADDITIONAL FINDINGS: No significant additional findings. IMPRESSION: 1. No significant interval change since 11/06/2020. Signer Name: Adam Wells MD Signed: 11/07/2020 8:49 AM Workstation Name: [email or web address]
--- NOTE | 2020-11-07 09:25 | Progress Note ---
Assessment and Plan Resume anticoagulation when bleeding has resolved. Prognosis remains guarded. Will follow. Eventually plan for outpatient ischemic eval when clinically stable, ideally 6 weeks out. Pt seen in conjunction with Dr. Salvador, who agrees with the assessment and plan of care. - Patient Problems (1) Acute CVA (cerebrovascular accident) Current Visit: Yes Status: Acute (2) Thrombus of atrial appendage Current Visit: Yes Status: Acute (3) Limb ischemia Current Visit: Yes Status: Acute (4) Compartment syndrome Current Visit: Yes Status: Acute (5) Hematemesis Current Visit: Yes Status: Acute (6) Anemia Current Visit: Yes Status: Acute (7) Sepsis Current Visit: Yes Status: Acute Qualifiers: Severe sepsis shock status: with septic shock (8) Acute hypoxemic respiratory failure Current Visit: Yes Status: Acute (9) Acute HFrEF (heart failure with reduced ejection fraction) Current Visit: Yes Status: Resolved (10) Cardiomyopathy Current Visit: Yes Status: Chronic Plan to address problem: EF 40-45% on echo this admission (11) STACEY (acute kidney injury) Current Visit: Yes Status: Acute (12) Hypothyroidism Current Visit: Yes Status: Chronic (13) H/O: HTN (hypertension) Current Visit: Yes Status: Chronic Subjective Date of service: 11/06/20 Principal diagnosis: CVA, Atrial Appendage Thrombus, Acute Limb Ischemia Interval history: Argatroban started by Heme; however, hematuria noted from self-removal of Winkler. Hgb continues to trend down. Tele reviewed - SR 60s, no events overnight. Objective Last Vital Signs Temp 98.3 F 11/06/20 14:00 Pulse 67 11/06/20 18:30 Resp 12 11/06/20 18:30 BP 103/62 11/06/20 18:30 Pulse Ox 100 11/06/20 18:30 - Physical Examination General: Other HEENT: Positive: Normocephaly, Mucus Membranes Moist Neck: Positive: neck supple, trachea midline. Negative: JVD/HJR Cardiac: Positive: Reg Rate and Rhythm, S1/S2 Lungs: Positive: Ventilated Respirations Neuro: Positive: Other Abdomen: Positive: Soft Skin: Positive: Other (s/p RLE fasciotomy). Negative: Rash Musculoskeletal: No Fluid Collection Extremities: Present: upper extr. pulses, lower extr. pulses, edema, Other (s/p RLE open thrombectomy with four-quadrant fasciotomy) - Labs and Meds Coagulation 11/05/20 11/06/20 Range/Units 21:20 05:00 APTT 63.8 H* 32.8 (24.2-36.6) Sec. CBC 11/06/20 Range/Units 04:00 WBC 33.0 H (4.5-11.0) K/mm3 RBC 2.68 L (3.65-5.03) M/mm3 Hgb 7.7 L (11.8-15.2) gm/dl Hct 23.3 L (35.5-45.6) % Plt Count 155 (140-440) K/mm3 Comprehensive Metabolic Panel 11/05/20 11/06/20 Range/Units 19:00 04:00 Sodium 139 (137-145) mmol/L Potassium 5.1 H (3.6-5.0) mmol/L Chloride 108.6 H (98-107) mmol/L Carbon Dioxide 24 (22-30) mmol/L BUN 62 H (9-20) mg/dL Creatinine 2.2 H (0.8-1.3) mg/dL Glucose 155 H (75-100) mg/dL Calcium 7.3 L (8.4-10.2) mg/dL Direct Bilirubin < 0.2 (0-0.2) mg/dL Indirect Bilirubin 0.0 mg/dL - Imaging and Cardiology EKG: report reviewed, image reviewed Echo: report reviewed (11/01/2020 - likely stalk of thrombus in CARIN of heterogenous quality, EF 40-45%, negative bubble study) - Telemetry EKG Rhythm: Sinus Rhythm - EKG Sinus rhythms and dysrhythmias: sinus rhythm AV and intraventricular conduction: left bundle branch block Repolarization changes or abnormalities: nonspecific abnormality, ST segment, and/or T wave - Allied health notes Allied health notes reviewed: nursing
[2020-11-07] MEDS: FAMOTIDINE 20 MG/2 ML INJ IV SCH (09:56)
[2020-11-07] MEDS: ZINC SULFATE 220 MG CAP PO SCH ×2 (09:56→22:08)
[2020-11-07] MEDS: DOCUSATE SODIUM 100 MG CAP PO SCH ×2 (09:56→22:08)
[2020-11-07] MEDS: ASCORBIC ACID 500 MG TAB PO SCH ×2 (09:56→22:08)
[2020-11-07] MEDS: ASPIRIN 325 MG TAB PO SCH (09:56)
[2020-11-07] MEDS: CHOLECALCIFEROL (VIT D3) 1000 UNIT (25 mcg) TAB PO SCH (09:56)
[2020-11-07] MEDS: METOPROLOL TARTRATE 25 MG TAB PO SCH ×2 (09:56→22:08)
[2020-11-07] MEDS: MAGNESIUM HYDROXIDE (MOM) ORAL LIQD UDC PO PRN (09:57)
[2020-11-07] MEDS: CEFEPIME/NS 2 GM/100 ML 2 GM/100 ML BAG IV SCH ×2 (10:11→22:07)
--- NOTE | 2020-11-07 11:26 | Progress Note ---
Assessment and Plan Assessment and Plan 70 yo male with HTN, hypothyroidism who presents with 2 days of confusion, weakness and noted with an acute partial L MCA territory ischemic stroke with noted expressive aphasia, dysarthria, right hemiparesis, with possible right homonymous hemianopsia. # Acute Ischemic (EMBOLIC) Stroke - ASA 325 mg PO qday, -KELYL with finding is suggestive oe left atrial appendage thrombus with EF#40- 45% -leukocytosis today--- better 28K today - had right leg thrombectomy with increase bleeding at site --- heparine is on hold restarted on AC -CT brain yesterday showed possible subacute left parietal infarct -R/O paroxysmal afib); -Pt. will need AC If no systemic contraindication exist , can start on IV heparine -ASA 81 mg - BP Goal <150/80 - he is currently hypotensive --off Dobutamin . stil on epinephrine smal dose - Statin therapy for a goal LDL of 70, #LDL#87 -- mainatin Lipitor at 40 mg - # Hypertension - goal 150/80-- now is hypotensive # Hypothyroidism - management per primary team. # Unsteady Gait - pt/ot evaluation/monitoring. 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 PLAN 1- maintain medications 2- MRI brain is remarkable for a new CVA / CT showed new left parietal infarct 3- Treat underlying infection 4- NPO / Intubated 5- PT/ST evaluate 6- OFF IV heparine due to leg site bleeding -- retial of po AC 7- repeat CT brain and EEG Over all prognosis is quarded due to multi medical problem and complicated medical HX . Will follow as needed Critical care statement The high probability OF a clinically significant sudden or life-threatening deterioration of the cardiorespiratory system and endocrine system required my full and direct attention, intervention and postoperative management. The aggregate critical care time was 40 minutes. The time is in addition to time spent performing reported procedures but includes the followin: Data review and interpretation 2: Patient assessment and monitoring of vital signs 3: Documentation 4:: Medication orders and management Subjective Date of service: 11/07/20 Principal diagnosis: CVA, Atrial Appendage Thrombus, Acute Limb Ischemia Interval history: 70 yo male with htn, hypothyroidism who presents with 2 days of confusion, weakness and noted with an acute partial L MCA territory ischemic infarction, in the setting of an Echo that reveals an EF of 30 to 35%, bilateral pneumonia, and possible CHF exacerbation. Currently, the patient feels slightly better. He was initially noted with a NIHSS of 16 in the ED but presented outside the tPA window and no LVO was noted on CTAs. 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 had right lower Ext. thrombus underwent thrombectomy he is in ICU today he seems to be more out of it with worseing of aphasia and right side weakness not follow command he is more awak today but not follow command star in space move left side more arm not leg right side flaccid he is intubated Past History Past Medical History: hypertension, hypothyroidism, other (See HPI) Past Surgical History: thyroidectomy Social history: single. denies: smoking, alcohol abuse Family history: hypertension Objective - Vital Sign Vital Signs - 12hr 11/06/20 11/06/20 11/06/20 23:30 23:43 23:45 Temperature Pulse Rate 70 75 79 Respiratory 13 14 Rate Blood Pressure 111/66 121/73 121/73 O2 Sat by Pulse 100 100 100 Oximetry 11/06/20 11/07/20 11/07/20 23:58 00:00 00:15 Temperature 97.6 F Pulse Rate 75 81 Respiratory 14 11 L Rate Blood Pressure 111/70 123/56 O2 Sat by Pulse 100 100 Oximetry 11/07/20 11/07/20 11/07/20 00:30 00:45 01:00 Temperature Pulse Rate 72 76 81 Respiratory 12 13 12 Rate Blood Pressure 99/64 104/68 116/77 O2 Sat by Pulse 100 100 100 Oximetry 11/07/20 11/07/20 11/07/20 01:15 01:30 01:45 Temperature Pulse Rate 73 70 68 Respiratory 12 12 12 Rate Blood Pressure 100/64 100/64 106/60 O2 Sat by Pulse 100 100 100 Oximetry 11/07/20 11/07/20 11/07/20 02:01 02:15 02:31 Temperature Pulse Rate 80 71 83 Respiratory 16 12 17 Rate Blood Pressure 139/69 99/64 131/107 O2 Sat by Pulse 100 100 100 Oximetry 11/07/20 11/07/20 11/07/20 02:45 03:00 03:05 Temperature Pulse Rate 74 70 70 Respiratory 13 12 Rate Blood Pressure 103/63 106/61 106/61 O2 Sat by Pulse 100 100 100 Oximetry 11/07/20 11/07/20 11/07/20 03:15 03:30 03:45 Temperature Pulse Rate 84 78 84 Respiratory 15 13 15 Rate Blood Pressure 116/69 116/74 116/74 O2 Sat by Pulse 100 100 100 Oximetry 11/07/20 11/07/20 11/07/20 04:00 04:01 04:15 Temperature 98.8 F Pulse Rate 78 81 Respiratory 14 14 Rate Blood Pressure 128/63 124/70 O2 Sat by Pulse 100 100 100 Oximetry 11/07/20 11/07/20 11/07/20 04:30 04:45 05:00 Temperature Pulse Rate 83 79 80 Respiratory 13 14 13 Rate Blood Pressure 123/70 115/62 112/76 O2 Sat by Pulse 100 100 100 Oximetry 11/07/20 11/07/20 11/07/20 05:15 05:31 05:45 Temperature Pulse Rate 74 76 77 Respiratory 13 11 L 14 Rate Blood Pressure 126/67 134/65 132/60 O2 Sat by Pulse 100 100 100 Oximetry 11/07/20 11/07/20 11/07/20 06:01 06:15 06:31 Temperature Pulse Rate 73 78 71 Respiratory 11 L 12 12 Rate Blood Pressure 117/58 119/64 93/50 O2 Sat by Pulse 100 100 100 Oximetry 11/07/20 11/07/20 11/07/20 06:45 07:00 07:11 Temperature 98.0 F Pulse Rate 72 78 79 Respiratory 12 13 Rate Blood Pressure 100/58 120/69 120/69 O2 Sat by Pulse 100 100 100 Oximetry 11/07/20 11/07/20 11/07/20 07:15 07:30 07:45 Temperature Pulse Rate 78 76 78 Respiratory 13 12 13 Rate Blood Pressure 128/68 115/62 118/69 O2 Sat by Pulse 100 100 100 Oximetry 11/07/20 11/07/20 11/07/20 08:01 08:15 08:30 Temperature Pulse Rate 81 74 70 Respiratory 13 12 12 Rate Blood Pressure 125/68 119/63 107/59 O2 Sat by Pulse 100 100 100 Oximetry 11/07/20 11/07/20 11/07/20 08:45 09:00 09:15 Temperature Pulse Rate 72 80 83 Respiratory 12 13 12 Rate Blood Pressure 104/62 130/91 111/76 O2 Sat by Pulse 100 100 100 Oximetry 11/07/20 11/07/20 11/07/20 09:31 09:35 09:45 Temperature Pulse Rate 78 82 80 Respiratory 11 L 25 H 12 Rate Blood Pressure 126/67 114/64 126/67 O2 Sat by Pulse 100 99 100 Oximetry 11/07/20 09:56 Temperature Pulse Rate 75 Respiratory Rate Blood Pressure 104/59 O2 Sat by Pulse Oximetry - General Apperance Constitutional: other (star , not follow command ) - EENT EENT: PERRL, mucous membranes moist - Respiratory Respiratory: chest non-tender, lungs clear, crackles - Cardiovascular Cardiovascular: other (irregular ) - Gastrointestinal Gastrointestinal: normoactive bowel sounds - Neurologic Cranial nerve examination: PERRL, EOMI, intact Speech examination: other (intubated) Detailed motor examination: other (move mainly left arm , no movment right side or left leg ) - Laboratory Findings CBC and BMP: 11/07/20 04:00 11/07/20 04:00 Abnormal Lab Findings: Abnormal Labs 10/23/20 10/23/20 10/23/20 13:32 18:23 18:23 WBC RBC Hgb Hct RDW Seg Neuts % (Manual) Lymphocytes % (Manual) Seg Neutrophils # Man Lymphocytes # (Manual) Monocytes # (Manual) PT INR APTT D-Dimer 4139.61 H Heparin Anti-Xa Level ABG pH POC ABG pCO2 POC ABG pO2 ABG Hemoglobin ABG Oxyhemoglobin ABG Sodium ABG Potassium ABG Chloride ABG Glucose Carboxyhemoglobin Sodium Potassium Chloride 109.1 H Carbon Dioxide BUN Creatinine Glucose POC Glucose Lactic Acid Calcium Lactate Dehydrogenase 334 H C-Reactive Protein 2.50 H NT-Pro-B Natriuret Pep 5806 H Total Protein Albumin TSH Arterial Blood Glucose Arterial Blood Ionized Calcium Urine WBC (Auto) Crossmatch 10/23/20 10/23/20 10/26/20 18:23 18:23 05:34 WBC RBC Hgb Hct RDW Seg Neuts % (Manual) Lymphocytes % (Manual) Seg Neutrophils # Man Lymphocytes # (Manual) Monocytes # (Manual) PT INR APTT D-Dimer Heparin Anti-Xa Level ABG pH POC ABG pCO2 POC ABG pO2 ABG Hemoglobin ABG Oxyhemoglobin ABG Sodium ABG Potassium ABG Chloride ABG Glucose Carboxyhemoglobin Sodium Potassium Chloride Carbon Dioxide BUN 30 H Creatinine Glucose 120 H POC Glucose Lactic Acid Calcium Lactate Dehydrogenase C-Reactive Protein NT-Pro-B Natriuret Pep Total Protein Albumin TSH 7.100 H 6.540 H Arterial Blood Glucose Arterial Blood Ionized Calcium Urine WBC (Auto) Crossmatch 10/27/20 10/28/20 11/02/20 08:55 05:25 07:17 WBC 15.8 H RBC Hgb Hct RDW Seg Neuts % (Manual) Lymphocytes % (Manual) Seg Neutrophils # Man Lymphocytes # (Manual) Monocytes # (Manual) PT INR APTT D-Dimer Heparin Anti-Xa Level ABG pH POC ABG pCO2 POC ABG pO2 ABG Hemoglobin ABG Oxyhemoglobin ABG Sodium ABG Potassium ABG Chloride ABG Glucose Carboxyhemoglobin Sodium Potassium Chloride Carbon Dioxide BUN 28 H 28 H Creatinine Glucose 124 H 110 H POC Glucose Lactic Acid Calcium 8.2 L Lactate Dehydrogenase C-Reactive Protein NT-Pro-B Natriuret Pep Total Protein Albumin TSH Arterial Blood Glucose Arterial Blood Ionized Calcium Urine WBC (Auto) Crossmatch 11/02/20 11/02/20 11/02/20 07:17 15:00 15:06 WBC RBC Hgb 15.7 H Hct 47.5 H D RDW Seg Neuts % (Manual) Lymphocytes % (Manual) Seg Neutrophils # Man Lymphocytes # (Manual) Monocytes # (Manual) PT INR APTT D-Dimer Heparin Anti-Xa Level ABG pH POC ABG pCO2 POC ABG pO2 ABG Hemoglobin ABG Oxyhemoglobin ABG Sodium ABG Potassium ABG Chloride ABG Glucose Carboxyhemoglobin Sodium 136 L Potassium Chloride Carbon Dioxide BUN 33 H Creatinine Glucose 107 H POC Glucose Lactic Acid Calcium 7.9 L Lactate Dehydrogenase C-Reactive Protein NT-Pro-B Natriuret Pep Total Protein Albumin TSH Arterial Blood Glucose Arterial Blood Ionized Calcium Urine WBC (Auto) Crossmatch See Detail 11/02/20 11/02/20 11/02/20 19:55 21:25 22:28 WBC 21.8 H RBC Hgb Hct RDW Seg Neuts % (Manual) Lymphocytes % (Manual) Seg Neutrophils # Man Lymphocytes # (Manual) Monocytes # (Manual) PT 16.2 H INR 1.30 H APTT 106.0 H* D-Dimer Heparin Anti-Xa Level 1.63 H ABG pH POC ABG pCO2 POC ABG pO2 ABG Hemoglobin ABG Oxyhemoglobin ABG Sodium ABG Potassium ABG Chloride ABG Glucose Carboxyhemoglobin Sodium Potassium Chloride Carbon Dioxide BUN Creatinine Glucose POC Glucose Lactic Acid Calcium Lactate Dehydrogenase C-Reactive Protein NT-Pro-B Natriuret Pep Total Protein Albumin TSH Arterial Blood Glucose Arterial Blood Ionized Calcium Urine WBC (Auto) Crossmatch 11/03/20 11/03/20 11/03/20 05:47 13:20 13:20 WBC 29.0 H RBC Hgb 10.4 L Hct 31.2 L D RDW Seg Neuts % (Manual) Lymphocytes % (Manual) Seg Neutrophils # Man Lymphocytes # (Manual) Monocytes # (Manual) PT INR APTT D-Dimer Heparin Anti-Xa Level < 0.10 L ABG pH POC ABG pCO2 POC ABG pO2 ABG Hemoglobin ABG Oxyhemoglobin ABG Sodium ABG Potassium ABG Chloride ABG Glucose Carboxyhemoglobin Sodium 134 L Potassium 5.9 H D Chloride Carbon Dioxide 17 L D BUN 47 H Creatinine 2.2 H D Glucose 188 H POC Glucose Lactic Acid Calcium 7.6 L Lactate Dehydrogenase C-Reactive Protein NT-Pro-B Natriuret Pep Total Protein Albumin TSH Arterial Blood Glucose Arterial Blood Ionized Calcium Urine WBC (Auto) Crossmatch 11/03/20 11/03/20 11/03/20 13:20 16:11 20:01 WBC RBC Hgb Hct RDW Seg Neuts % (Manual) Lymphocytes % (Manual) Seg Neutrophils # Man Lymphocytes # (Manual) Monocytes # (Manual) PT INR APTT D-Dimer Heparin Anti-Xa Level ABG pH 7.289 L POC ABG pCO2 31.8 L POC ABG pO2 156.7 H 119.6 H ABG Hemoglobin 10.7 L 9.7 L ABG Oxyhemoglobin 98.2 H ABG Sodium 127.7 L 129.5 L ABG Potassium 5.8 H 5.9 H ABG Chloride ABG Glucose 190 H 174 H Carboxyhemoglobin 0.3 L 0.1 L Sodium Potassium Chloride Carbon Dioxide BUN Creatinine Glucose POC Glucose Lactic Acid 7.40 H* Calcium Lactate Dehydrogenase C-Reactive Protein NT-Pro-B Natriuret Pep Total Protein Albumin TSH Arterial Blood Glucose 190 H 174 H Arterial Blood Ionized Calcium 4.3 L 4.3 L Urine WBC (Auto) Crossmatch 11/03/20 11/04/20 11/04/20 21:14 04:00 04:00 WBC 32.8 H RBC Hgb 11.7 L Hct 35.0 L RDW Seg Neuts % (Manual) 82.0 H Lymphocytes % (Manual) 10.0 L Seg Neutrophils # Man 26.9 H Lymphocytes # (Manual) Monocytes # (Manual) 2.3 H PT INR APTT D-Dimer Heparin Anti-Xa Level 0.73 H ABG pH POC ABG pCO2 POC ABG pO2 ABG Hemoglobin ABG Oxyhemoglobin ABG Sodium ABG Potassium ABG Chloride ABG Glucose Carboxyhemoglobin Sodium 133 L Potassium 5.7 H Chloride Carbon Dioxide 20 L BUN 57 H Creatinine 2.3 H Glucose 129 H POC Glucose Lactic Acid Calcium 7.2 L Lactate Dehydrogenase C-Reactive Protein NT-Pro-B Natriuret Pep Total Protein Albumin TSH Arterial Blood Glucose Arterial Blood Ionized Calcium Urine WBC (Auto) Crossmatch 11/04/20 11/04/20 11/04/20 07:57 11:00 11:55 WBC RBC Hgb Hct RDW Seg Neuts % (Manual) Lymphocytes % (Manual) Seg Neutrophils # Man Lymphocytes # (Manual) Monocytes # (Manual) PT INR APTT D-Dimer Heparin Anti-Xa Level ABG pH POC ABG pCO2 POC ABG pO2 132.7 H ABG Hemoglobin 11.5 L ABG Oxyhemoglobin ABG Sodium 130.6 L ABG Potassium 5.3 H ABG Chloride ABG Glucose 145 H Carboxyhemoglobin 0.2 L Sodium Potassium Chloride Carbon Dioxide BUN Creatinine Glucose POC Glucose 110 H Lactic Acid Calcium Lactate Dehydrogenase C-Reactive Protein NT-Pro-B Natriuret Pep Total Protein Albumin TSH Arterial Blood Glucose 145 H Arterial Blood Ionized Calcium 4.4 L Urine WBC (Auto) 19.0 H Crossmatch 11/04/20 11/04/20 11/04/20 13:01 13:01 17:40 WBC RBC Hgb Hct RDW Seg Neuts % (Manual) Lymphocytes % (Manual) Seg Neutrophils # Man Lymphocytes # (Manual) Monocytes # (Manual) PT INR APTT D-Dimer Heparin Anti-Xa Level 0.26 L ABG pH POC ABG pCO2 POC ABG pO2 ABG Hemoglobin ABG Oxyhemoglobin ABG Sodium ABG Potassium ABG Chloride ABG Glucose Carboxyhemoglobin Sodium Potassium Chloride Carbon Dioxide BUN Creatinine Glucose POC Glucose 135 H Lactic Acid Calcium Lactate Dehydrogenase C-Reactive Protein 8.30 H NT-Pro-B Natriuret Pep Total Protein Albumin TSH Arterial Blood Glucose Arterial Blood Ionized Calcium Urine WBC (Auto) Crossmatch 11/04/20 11/04/20 11/05/20 19:55 23:20 00:53 WBC RBC Hgb 9.7 L 9.0 L Hct 28.3 L D 26.0 L RDW Seg Neuts % (Manual) Lymphocytes % (Manual) Seg Neutrophils # Man Lymphocytes # (Manual) Monocytes # (Manual) PT INR APTT D-Dimer Heparin Anti-Xa Level ABG pH POC ABG pCO2 POC ABG pO2 ABG Hemoglobin ABG Oxyhemoglobin ABG Sodium ABG Potassium ABG Chloride ABG Glucose Carboxyhemoglobin Sodium Potassium Chloride Carbon Dioxide BUN Creatinine Glucose POC Glucose 143 H Lactic Acid Calcium Lactate Dehydrogenase C-Reactive Protein NT-Pro-B Natriuret Pep Total Protein Albumin TSH Arterial Blood Glucose Arterial Blood Ionized Calcium Urine WBC (Auto) Crossmatch 11/05/20 11/05/20 11/05/20 02:16 03:16 03:37 WBC 33.5 H RBC 3.01 L Hgb 8.8 L Hct 25.6 L RDW Seg Neuts % (Manual) 93.5 H Lymphocytes % (Manual) 3.5 L Seg Neutrophils # Man 31.3 H Lymphocytes # (Manual) Monocytes # (Manual) 1.0 H PT INR APTT D-Dimer Heparin Anti-Xa Level 0.99 H ABG pH POC ABG pCO2 POC ABG pO2 131.3 H ABG Hemoglobin 9.2 L ABG Oxyhemoglobin ABG Sodium 131.6 L ABG Potassium ABG Chloride 110.0 H ABG Glucose 168 H Carboxyhemoglobin 0.3 L Sodium Potassium Chloride Carbon Dioxide BUN Creatinine Glucose POC Glucose Lactic Acid Calcium Lactate Dehydrogenase C-Reactive Protein NT-Pro-B Natriuret Pep Total Protein Albumin TSH Arterial Blood Glucose 168 H Arterial Blood Ionized Calcium 4.4 L Urine WBC (Auto) Crossmatch 11/05/20 11/05/20 11/05/20 03:37 05:19 18:18 WBC RBC Hgb Hct RDW Seg Neuts % (Manual) Lymphocytes % (Manual) Seg Neutrophils # Man Lymphocytes # (Manual) Monocytes # (Manual) PT INR APTT D-Dimer Heparin Anti-Xa Level ABG pH POC ABG pCO2 POC ABG pO2 ABG Hemoglobin ABG Oxyhemoglobin ABG Sodium ABG Potassium ABG Chloride ABG Glucose Carboxyhemoglobin Sodium Potassium Chloride 109.5 H Carbon Dioxide BUN 55 H Creatinine 2.1 H Glucose 157 H POC Glucose 142 H 124 H Lactic Acid Calcium 7.0 L Lactate Dehydrogenase C-Reactive Protein NT-Pro-B Natriuret Pep Total Protein Albumin TSH Arterial Blood Glucose Arterial Blood Ionized Calcium Urine WBC (Auto) Crossmatch 11/05/20 11/05/20 11/05/20 19:00 21:20 23:30 WBC RBC Hgb Hct RDW Seg Neuts % (Manual) Lymphocytes % (Manual) Seg Neutrophils # Man Lymphocytes # (Manual) Monocytes # (Manual) PT INR APTT 63.8 H* D-Dimer Heparin Anti-Xa Level ABG pH POC ABG pCO2 POC ABG pO2 ABG Hemoglobin ABG Oxyhemoglobin ABG Sodium ABG Potassium ABG Chloride ABG Glucose Carboxyhemoglobin Sodium Potassium Chloride Carbon Dioxide BUN Creatinine Glucose POC Glucose 156 H Lactic Acid Calcium Lactate Dehydrogenase C-Reactive Protein NT-Pro-B Natriuret Pep Total Protein 4.3 L Albumin 2.1 L TSH Arterial Blood Glucose Arterial Blood Ionized Calcium Urine WBC (Auto) Crossmatch 11/06/20 11/06/20 11/06/20 02:54 04:00 04:00 WBC 33.0 H RBC 2.68 L Hgb 7.7 L Hct 23.3 L RDW Seg Neuts % (Manual) 95.0 H Lymphocytes % (Manual) 2.0 L Seg Neutrophils # Man 31.4 H Lymphocytes # (Manual) 0.7 L Monocytes # (Manual) 1.0 H PT INR APTT D-Dimer Heparin Anti-Xa Level ABG pH POC ABG pCO2 POC ABG pO2 116.5 H ABG Hemoglobin 9.7 L ABG Oxyhemoglobin ABG Sodium 134.5 L ABG Potassium 5.0 H ABG Chloride 109.0 H ABG Glucose 165 H Carboxyhemoglobin 0.3 L Sodium Potassium 5.1 H Chloride 108.6 H Carbon Dioxide BUN 62 H Creatinine 2.2 H Glucose 155 H POC Glucose Lactic Acid Calcium 7.3 L Lactate Dehydrogenase C-Reactive Protein NT-Pro-B Natriuret Pep Total Protein Albumin TSH Arterial Blood Glucose 165 H Arterial Blood Ionized Calcium 4.5 L Urine WBC (Auto) Crossmatch 11/06/20 11/06/20 11/07/20 05:17 17:26 04:00 WBC 28.9 H RBC 2.44 L Hgb 7.1 L Hct 21.2 L RDW 15.4 H Seg Neuts % (Manual) 95.0 H Lymphocytes % (Manual) 3.0 L Seg Neutrophils # Man 27.5 H Lymphocytes # (Manual) 0.9 L Monocytes # (Manual) PT INR APTT D-Dimer Heparin Anti-Xa Level ABG pH POC ABG pCO2 POC ABG pO2 ABG Hemoglobin ABG Oxyhemoglobin ABG Sodium ABG Potassium ABG Chloride ABG Glucose Carboxyhemoglobin Sodium Potassium Chloride Carbon Dioxide BUN Creatinine Glucose POC Glucose 147 H 132 H Lactic Acid Calcium Lactate Dehydrogenase C-Reactive Protein NT-Pro-B Natriuret Pep Total Protein Albumin TSH Arterial Blood Glucose Arterial Blood Ionized Calcium Urine WBC (Auto) Crossmatch 11/07/20 11/07/20 04:00 04:00 WBC RBC Hgb Hct RDW Seg Neuts % (Manual) Lymphocytes % (Manual) Seg Neutrophils # Man Lymphocytes # (Manual) Monocytes # (Manual) PT INR APTT D-Dimer Heparin Anti-Xa Level ABG pH POC ABG pCO2 POC ABG pO2 130.1 H ABG Hemoglobin 7.5 L ABG Oxyhemoglobin ABG Sodium ABG Potassium 5.0 H ABG Chloride 110.0 H ABG Glucose 152 H Carboxyhemoglobin Sodium Potassium 5.3 H Chloride 108.2 H Carbon Dioxide BUN 77 H Creatinine 2.4 H Glucose 144 H POC Glucose Lactic Acid Calcium 7.5 L Lactate Dehydrogenase C-Reactive Protein NT-Pro-B Natriuret Pep Total Protein Albumin TSH Arterial Blood Glucose 152 H Arterial Blood Ionized Calcium Urine WBC (Auto) Crossmatch
--- NOTE | 2020-11-07 13:40 | Progress Note ---
Assessment and Plan Cultures: Sputum culture 11/03/2020 upper respiratory me[place]le Urine culture 11/04/2020 negative Blood culture 11/04/2020 no growth today Tracheal aspirate 11/04/2020 no growth today Assessment: 70-year-old male with history of hypertension, hypothyroidism, admitted on 10/23/2020 secondary to 2-day history of acute altered mental status with confusion and diminished cognition; noted to have a left MCA CVA and right leg acute thrombosis, now with worsening leukocytosis and on pressors: #Severe sepsis with septic shock: Not present on admission. Remains pressors but improving, leukocytosis is high 33K-->28.9K; etiology unclear ?UTI. Likely secondary to acute thrombus of the right lower extremity complicated with compartment syndrome +/- UTI. Chest x-ray without any obvious pneumonia. #UTI urinalysis with mild pyuria. #Acute CVA: MRI with acute infarction of the left MCA, repeat MRI with evolving changes. Neurology on board. #Acute right leg thromboses: Complicated with compartment syndrome s/p open thrombectomy of the right lower extremity and right lower extremity compartment syndrome fasciotomy on 11/02/2020. #STACEY: creat up. Renally adjust antibiotics. #Acute respiratory failure: Intubated overnight. Chest x-ray with pulmonary edema. Elevated BNP. CT chest shows small pericardial effusion, small bilateral pleural effusion, bilateral interstitial disease. SARS-CoV-2 PCR negative. #Cardiomyopathy: EF 35 to 40%. #Left atrial appendage thrombus: Patient was on heparin drip, currently on hold due to surgical wound bleeding #Anemia Recommendations: -Consider abdominal CT, abdominal distention worsening -Follow-up blood culture, urinalysis, respiratory cultures -Continue cefepime IV renally adjusted D5 -Remove Winkler catheter when possible Will follow. Shasta Ortega MD Infectious Diseases Community Health Coordinator [facility] M [phone] O [phone] Subjective Date of service: 11/07/20 Principal diagnosis: CVA, Atrial Appendage Thrombus, Acute Limb Ischemia Interval history: Remains intubated, no pressors, on fentanyl and Levophed drip. Objective - Exam Narrative Exam: General appearance: Sedated, intubated, currently alert Eyes: anicteric sclerae, moist conjunctivae; no lid-lag; PERRLA HENT: Normocephalic, Atraumatic; normal external ears, nares open, endotracheal tube and NG tube in place Neck: supple, tracheal midline, no JVD Lungs: Coarse breath sound bilaterally CV: RRR no murmur Abdomen: Firm, distended Extremities: Marked right leg edema with fasciotomy wounds bleeding Skin: Right groin surgical wound with clots Psych: Sedated Neuro: Sedated, nares open Winkler in place - Constitutional Vitals: Vital Signs Temp Pulse Resp BP Pulse Ox 98.0 F 75 12 104/59 100 11/07/20 07:00 11/07/20 09:56 11/07/20 09:45 11/07/20 09:56 11/07/20 09:45 Temperature -Last 24 Hours Temperature 98.0 F Temperature 98.8 F Temperature 98.8 F Temperature 97.6 F Temperature 97.9 F Temperature 98.3 F Temperature 98.0 F - Labs CBC & Chem 7: 11/07/20 04:00 11/07/20 04:00 Labs: Abnormal lab results 11/06/20 11/07/20 11/07/20 Range/Units 17:26 04:00 04:00 WBC 28.9 H (4.5-11.0) K/mm3 RBC 2.44 L (3.65-5.03) M/mm3 Hgb 7.1 L (11.8-15.2) gm/dl Hct 21.2 L (35.5-45.6) % RDW 15.4 H (13.2-15.2) % Seg Neuts % (Manual) 95.0 H (40.0-70.0) % Lymphocytes % (Manual) 3.0 L (13.4-35.0) % Seg Neutrophils # Man 27.5 H (1.8-7.7) K/mm3 Lymphocytes # (Manual) 0.9 L (1.2-5.4) K/mm3 POC ABG pO2 (83-108) mmHg ABG Hemoglobin (12.0-17.5) ABG Potassium (3.40-4.50) mmol/L ABG Chloride (98-107) mmol/L ABG Glucose (65-95) mg/dL Potassium 5.3 H (3.6-5.0) mmol/L Chloride 108.2 H (98-107) mmol/L BUN 77 H (9-20) mg/dL Creatinine 2.4 H (0.8-1.3) mg/dL Glucose 144 H (75-100) mg/dL POC Glucose 132 H (70-105) mg/dL Calcium 7.5 L (8.4-10.2) mg/dL Arterial Blood Glucose (65-95) mg/dL 11/07/20 Range/Units 04:00 WBC (4.5-11.0) K/mm3 RBC (3.65-5.03) M/mm3 Hgb (11.8-15.2) gm/dl Hct (35.5-45.6) % RDW (13.2-15.2) % Seg Neuts % (Manual) (40.0-70.0) % Lymphocytes % (Manual) (13.4-35.0) % Seg Neutrophils # Man (1.8-7.7) K/mm3 Lymphocytes # (Manual) (1.2-5.4) K/mm3 POC ABG pO2 130.1 H (83-108) mmHg ABG Hemoglobin 7.5 L (12.0-17.5) ABG Potassium 5.0 H (3.40-4.50) mmol/L ABG Chloride 110.0 H (98-107) mmol/L ABG Glucose 152 H (65-95) mg/dL Potassium (3.6-5.0) mmol/L Chloride (98-107) mmol/L BUN (9-20) mg/dL Creatinine (0.8-1.3) mg/dL Glucose (75-100) mg/dL POC Glucose (70-105) mg/dL Calcium (8.4-10.2) mg/dL Arterial Blood Glucose 152 H (65-95) mg/dL
--- NOTE | 2020-11-07 13:50 | Cat Scan Report ---
CT head without contrast INDICATION : Worsening altered mental status TECHNIQUE: Axial imaging performed from the skull apex through the skull base without the use of con trast. All CT examinations performed at this facility utilize dose modulation, iterative reconstruct ion or weight-based dosing, when appropriate, to reduce radiation dose to as low as reasonably achiev able. COMPARISON: 11/06/2020 FINDINGS: When compared to the prior exam there is continued evolution of the cortical hypodensity in volving the left temporoparietal and frontoparietal regions consistent with evolving infarct. No acut e intracranial hemorrhage is identified. No new areas of infarct are appreciated. No extra-axial mel ection. The orbits are unremarkable. The paranasal sinuses remain grossly clear. IMPRESSION: No acute intracranial hemorrhage. Evolving infarcts involving the left temporoparietal-le ft frontoparietal lobes since 11/06/2020, as above Signer Name: Horace Pena MD Signed: 11/07/2020 1:46 PM Workstation Name: [id number]
--- NOTE | 2020-11-07 16:45 | Progress Note ---
Assessment and Plan Acute hypoxemic respiratory failure. Acute embolic cerebrovascular accident. Acute limb ischemia, status post thrombectomy. Left atrial appendage. Acute congestive heart failure exacerbation. Obesity. History of hypothyroidism. Leukocytosis. Acute encephalopathy, toxic metabolic - GI consulted re: G.I. Bleed (also repeat KUB with some improvement but clinical distendion / tightness worse) - Magnesium citrate 300 mls p.o. X 1 dose - continue accuchecks q6h - continue to wean Levophed for target MAP > 65 mmHg (on 2 cortes's/min) - continue to hold anticoagulation till cleared by G.I. team - complete antiinfective's per ID recommendation - azotemia per nephrology team - continue care as below otherwise; - continue to wean supplemental oxygen for target O2 sat's > 90% acutely - VAP bundle addressed - continue lung protective strategies - continue bronchodilators with pulmonary hygiene per RT - wean per pulmonary driven protocols otherwise - avoid nephrotoxins, renally dose all medications - continue Daily SAT and SBT assessment as tolerated - continue accuchecks with glycemic control per SSI (While critically ill target blood glucose of 140-180 mg/dL; avoid hypoglycemia) - sedation prn for target RASS 0 to -1 - continue to avoid benzodiazepine's, reduce the possibility of delirium - complete AB's per ID rec's - prn analgesia per CPOT score - Maintenance of sleep-wake cycle, avoid delirium - continue enteral nutritional support at goal rate as tolerated - G.I. & VTE prophylaxis - PT/OT/ROM exercises - continue mobility protocols for pressure ulcer prophylaxis - Monitor hemodynamics closely - continue other care per attending / other consultants - discharge planning ongoing concurrently .... Re-evaluate in am & prn CONDITION: CRITICAL PROGNOSIS: GUARDED CODE STATUS: FULL CODE The high probability of a clinically significant, sudden or life-threatening deterioration of the [respiratory, cardiovascular, renal & neurologic] system(s) required my full and direct attention, intervention and personal management. The aggregate critical care time was [36] minutes without overlap. Time includes spe nt on; [x] Data Review and interpretation [x] Patient assessment and monitoring of vital signs [x] Documentation [x] Medication orders and management Subjective Date of service: 11/07/20 Principal diagnosis: Ac hypoxemic resp failure; CVA; Acute limb ischemia; Acute encephalopathy Interval history: Patient is seen today for: Acute hypoxemic respiratory failure; Acute embolic CVA; Acute limb ischemia; Left atrial appendage; Acute CHF; Obesity; Acute encephalopathy, toxic metabolic Seen and examined at bedside; 24hour events reviewed; nursing and respiratory care staff consulted; no adverse overnight events reported to me; resting peacefully in bed; AMS is persistent; failed SBT; still with abdominal distension; no gross bleeding; remains of IV anticoagulation Objective Vital Signs - 12hr 11/07/20 11/07/20 11/07/20 01:45 02:01 02:15 Temperature Pulse Rate 68 80 71 Respiratory 12 16 12 Rate Blood Pressure 106/60 139/69 99/64 O2 Sat by Pulse 100 100 100 Oximetry 11/07/20 11/07/20 11/07/20 02:31 02:45 03:00 Temperature Pulse Rate 83 74 70 Respiratory 17 13 12 Rate Blood Pressure 131/107 103/63 106/61 O2 Sat by Pulse 100 100 100 Oximetry 11/07/20 11/07/20 11/07/20 03:05 03:15 03:30 Temperature Pulse Rate 70 84 78 Respiratory 15 13 Rate Blood Pressure 106/61 116/69 116/74 O2 Sat by Pulse 100 100 100 Oximetry 11/07/20 11/07/20 11/07/20 03:45 04:00 04:01 Temperature 98.8 F Pulse Rate 84 78 Respiratory 15 14 Rate Blood Pressure 116/74 128/63 O2 Sat by Pulse 100 100 100 Oximetry 11/07/20 11/07/20 11/07/20 04:15 04:30 04:45 Temperature Pulse Rate 81 83 79 Respiratory 14 13 14 Rate Blood Pressure 124/70 123/70 115/62 O2 Sat by Pulse 100 100 100 Oximetry 11/07/20 11/07/20 11/07/20 05:00 05:15 05:31 Temperature Pulse Rate 80 74 76 Respiratory 13 13 11 L Rate Blood Pressure 112/76 126/67 134/65 O2 Sat by Pulse 100 100 100 Oximetry 11/07/20 11/07/20 11/07/20 05:45 06:01 06:15 Temperature Pulse Rate 77 73 78 Respiratory 14 11 L 12 Rate Blood Pressure 132/60 117/58 119/64 O2 Sat by Pulse 100 100 100 Oximetry 11/07/20 11/07/20 11/07/20 06:31 06:45 07:00 Temperature 98.0 F Pulse Rate 71 72 78 Respiratory 12 12 13 Rate Blood Pressure 93/50 100/58 120/69 O2 Sat by Pulse 100 100 100 Oximetry 11/07/20 11/07/20 11/07/20 07:11 07:15 07:30 Temperature Pulse Rate 79 78 76 Respiratory 13 12 Rate Blood Pressure 120/69 128/68 115/62 O2 Sat by Pulse 100 100 100 Oximetry 11/07/20 11/07/20 11/07/20 07:45 08:01 08:15 Temperature Pulse Rate 78 81 74 Respiratory 13 13 12 Rate Blood Pressure 118/69 125/68 119/63 O2 Sat by Pulse 100 100 100 Oximetry 11/07/20 11/07/20 11/07/20 08:30 08:45 09:00 Temperature Pulse Rate 70 72 80 Respiratory 12 12 13 Rate Blood Pressure 107/59 104/62 130/91 O2 Sat by Pulse 100 100 100 Oximetry 11/07/20 11/07/20 11/07/20 09:15 09:31 09:35 Temperature Pulse Rate 83 78 82 Respiratory 12 11 L 25 H Rate Blood Pressure 111/76 126/67 114/64 O2 Sat by Pulse 100 100 99 Oximetry 11/07/20 11/07/20 11/07/20 09:45 09:56 10:01 Temperature Pulse Rate 80 75 79 Respiratory 12 13 Rate Blood Pressure 126/67 104/59 108/63 O2 Sat by Pulse 100 100 Oximetry 11/07/20 11/07/20 11/07/20 10:15 10:30 10:45 Temperature Pulse Rate 79 78 75 Respiratory 10 L 13 11 L Rate Blood Pressure 113/64 114/64 97/61 O2 Sat by Pulse 99 100 100 Oximetry 11/07/20 11/07/20 11/07/20 11:01 11:15 11:29 Temperature Pulse Rate 79 71 75 Respiratory 12 12 Rate Blood Pressure 102/69 104/59 102/69 O2 Sat by Pulse 100 100 100 Oximetry 11/07/20 11/07/20 11/07/20 11:30 11:45 12:00 Temperature 98.0 F Pulse Rate 71 71 82 Respiratory 12 12 12 Rate Blood Pressure 98/59 95/55 96/57 O2 Sat by Pulse 100 100 100 Oximetry 11/07/20 12:15 Temperature Pulse Rate 71 Respiratory 12 Rate Blood Pressure 101/59 O2 Sat by Pulse 100 Oximetry Constitutional: no acute distress, other (elderly male with mildly increased respiratory effort at rest on MVS) Eyes: non-icteric ENT: oropharynx moist, other (ETT 25 cm DALIA) Neck: supple, no lymphadenopathy, no JVD Effort: mildly labored Ascultation: Bilateral: diminished breath sounds, rhonchi (scant) Percussion: Bilateral: not dull Cardiovascular: regular rate and rhythm Gastrointestinal: hypoactive bowel sounds, non-tender, other (distended) Integumentary: normal Extremities: no cyanosis, pink and warm, edema (RLExt), other (RLExt fasciotomy) Neurologic: pupils equal and round, unable to assess, other (Right Hemiparesis) Psychiatric: other (encephalopathic) CBC and BMP: 11/07/20 04:00 11/07/20 04:00 ABG, PT/INR, D-dimer: ABG ABG pH 7.398 (7.320-7.450) 11/07/20 04:00 POC ABG pCO2 40.2 mmHg (32.0-48.0) 11/07/20 04:00 POC ABG pO2 130.1 mmHg (83-108) H 11/07/20 04:00 POC ABG HCO3 24.2 11/07/20 04:00 ABG O2 Saturation 98.8 (0-100) 11/07/20 04:00 PT/INR, D-dimer PT 16.2 Sec. (12.2-14.9) H 11/02/20 19:55 INR 1.30 (0.87-1.13) H 11/02/20 19:55 D-Dimer 4139.61 ng/mlDDU (0-234) H 10/23/20 18:23 Abnormal lab findings: Abnormal Labs 10/23/20 10/23/20 10/23/20 13:32 18:23 18:23 WBC RBC Hgb Hct RDW Seg Neuts % (Manual) Lymphocytes % (Manual) Seg Neutrophils # Man Lymphocytes # (Manual) Monocytes # (Manual) PT INR APTT D-Dimer 4139.61 H Heparin Anti-Xa Level ABG pH POC ABG pCO2 POC ABG pO2 ABG Hemoglobin ABG Oxyhemoglobin ABG Sodium ABG Potassium ABG Chloride ABG Glucose Carboxyhemoglobin Sodium Potassium Chloride 109.1 H Carbon Dioxide BUN Creatinine Glucose POC Glucose Lactic Acid Calcium Lactate Dehydrogenase 334 H C-Reactive Protein 2.50 H NT-Pro-B Natriuret Pep 5806 H Total Protein Albumin TSH Arterial Blood Glucose Arterial Blood Ionized Calcium Urine WBC (Auto) Crossmatch 10/23/20 10/23/20 10/26/20 18:23 18:23 05:34 WBC RBC Hgb Hct RDW Seg Neuts % (Manual) Lymphocytes % (Manual) Seg Neutrophils # Man Lymphocytes # (Manual) Monocytes # (Manual) PT INR APTT D-Dimer Heparin Anti-Xa Level ABG pH POC ABG pCO2 POC ABG pO2 ABG Hemoglobin ABG Oxyhemoglobin ABG Sodium ABG Potassium ABG Chloride ABG Glucose Carboxyhemoglobin Sodium Potassium Chloride Carbon Dioxide BUN 30 H Creatinine Glucose 120 H POC Glucose Lactic Acid Calcium Lactate Dehydrogenase C-Reactive Protein NT-Pro-B Natriuret Pep Total Protein Albumin TSH 7.100 H 6.540 H Arterial Blood Glucose Arterial Blood Ionized Calcium Urine WBC (Auto) Crossmatch 10/27/20 10/28/20 11/02/20 08:55 05:25 07:17 WBC 15.8 H RBC Hgb Hct RDW Seg Neuts % (Manual) Lymphocytes % (Manual) Seg Neutrophils # Man Lymphocytes # (Manual) Monocytes # (Manual) PT INR APTT D-Dimer Heparin Anti-Xa Level ABG pH POC ABG pCO2 POC ABG pO2 ABG Hemoglobin ABG Oxyhemoglobin ABG Sodium ABG Potassium ABG Chloride ABG Glucose Carboxyhemoglobin Sodium Potassium Chloride Carbon Dioxide BUN 28 H 28 H Creatinine Glucose 124 H 110 H POC Glucose Lactic Acid Calcium 8.2 L Lactate Dehydrogenase C-Reactive Protein NT-Pro-B Natriuret Pep Total Protein Albumin TSH Arterial Blood Glucose Arterial Blood Ionized Calcium Urine WBC (Auto) Crossmatch 11/02/20 11/02/20 11/02/20 07:17 15:00 15:06 WBC RBC Hgb 15.7 H Hct 47.5 H D RDW Seg Neuts % (Manual) Lymphocytes % (Manual) Seg Neutrophils # Man Lymphocytes # (Manual) Monocytes # (Manual) PT INR APTT D-Dimer Heparin Anti-Xa Level ABG pH POC ABG pCO2 POC ABG pO2 ABG Hemoglobin ABG Oxyhemoglobin ABG Sodium ABG Potassium ABG Chloride ABG Glucose Carboxyhemoglobin Sodium 136 L Potassium Chloride Carbon Dioxide BUN 33 H Creatinine Glucose 107 H POC Glucose Lactic Acid Calcium 7.9 L Lactate Dehydrogenase C-Reactive Protein NT-Pro-B Natriuret Pep Total Protein Albumin TSH Arterial Blood Glucose Arterial Blood Ionized Calcium Urine WBC (Auto) Crossmatch See Detail 11/02/20 11/02/20 11/02/20 19:55 21:25 22:28 WBC 21.8 H RBC Hgb Hct RDW Seg Neuts % (Manual) Lymphocytes % (Manual) Seg Neutrophils # Man Lymphocytes # (Manual) Monocytes # (Manual) PT 16.2 H INR 1.30 H APTT 106.0 H* D-Dimer Heparin Anti-Xa Level 1.63 H ABG pH POC ABG pCO2 POC ABG pO2 ABG Hemoglobin ABG Oxyhemoglobin ABG Sodium ABG Potassium ABG Chloride ABG Glucose Carboxyhemoglobin Sodium Potassium Chloride Carbon Dioxide BUN Creatinine Glucose POC Glucose Lactic Acid Calcium Lactate Dehydrogenase C-Reactive Protein NT-Pro-B Natriuret Pep Total Protein Albumin TSH Arterial Blood Glucose Arterial Blood Ionized Calcium Urine WBC (Auto) Crossmatch 11/03/20 11/03/20 11/03/20 05:47 13:20 13:20 WBC 29.0 H RBC Hgb 10.4 L Hct 31.2 L D RDW Seg Neuts % (Manual) Lymphocytes % (Manual) Seg Neutrophils # Man Lymphocytes # (Manual) Monocytes # (Manual) PT INR APTT D-Dimer Heparin Anti-Xa Level < 0.10 L ABG pH POC ABG pCO2 POC ABG pO2 ABG Hemoglobin ABG Oxyhemoglobin ABG Sodium ABG Potassium ABG Chloride ABG Glucose Carboxyhemoglobin Sodium 134 L Potassium 5.9 H D Chloride Carbon Dioxide 17 L D BUN 47 H Creatinine 2.2 H D Glucose 188 H POC Glucose Lactic Acid Calcium 7.6 L Lactate Dehydrogenase C-Reactive Protein NT-Pro-B Natriuret Pep Total Protein Albumin TSH Arterial Blood Glucose Arterial Blood Ionized Calcium Urine WBC (Auto) Crossmatch 11/03/20 11/03/20 11/03/20 13:20 16:11 20:01 WBC RBC Hgb Hct RDW Seg Neuts % (Manual) Lymphocytes % (Manual) Seg Neutrophils # Man Lymphocytes # (Manual) Monocytes # (Manual) PT INR APTT D-Dimer Heparin Anti-Xa Level ABG pH 7.289 L POC ABG pCO2 31.8 L POC ABG pO2 156.7 H 119.6 H ABG Hemoglobin 10.7 L 9.7 L ABG Oxyhemoglobin 98.2 H ABG Sodium 127.7 L 129.5 L ABG Potassium 5.8 H 5.9 H ABG Chloride ABG Glucose 190 H 174 H Carboxyhemoglobin 0.3 L 0.1 L Sodium Potassium Chloride Carbon Dioxide BUN Creatinine Glucose POC Glucose Lactic Acid 7.40 H* Calcium Lactate Dehydrogenase C-Reactive Protein NT-Pro-B Natriuret Pep Total Protein Albumin TSH Arterial Blood Glucose 190 H 174 H Arterial Blood Ionized Calcium 4.3 L 4.3 L Urine WBC (Auto) Crossmatch 11/03/20 11/04/20 11/04/20 21:14 04:00 04:00 WBC 32.8 H RBC Hgb 11.7 L Hct 35.0 L RDW Seg Neuts % (Manual) 82.0 H Lymphocytes % (Manual) 10.0 L Seg Neutrophils # Man 26.9 H Lymphocytes # (Manual) Monocytes # (Manual) 2.3 H PT INR APTT D-Dimer Heparin Anti-Xa Level 0.73 H ABG pH POC ABG pCO2 POC ABG pO2 ABG Hemoglobin ABG Oxyhemoglobin ABG Sodium ABG Potassium ABG Chloride ABG Glucose Carboxyhemoglobin Sodium 133 L Potassium 5.7 H Chloride Carbon Dioxide 20 L BUN 57 H Creatinine 2.3 H Glucose 129 H POC Glucose Lactic Acid Calcium 7.2 L Lactate Dehydrogenase C-Reactive Protein NT-Pro-B Natriuret Pep Total Protein Albumin TSH Arterial Blood Glucose Arterial Blood Ionized Calcium Urine WBC (Auto) Crossmatch 11/04/20 11/04/20 11/04/20 07:57 11:00 11:55 WBC RBC Hgb Hct RDW Seg Neuts % (Manual) Lymphocytes % (Manual) Seg Neutrophils # Man Lymphocytes # (Manual) Monocytes # (Manual) PT INR APTT D-Dimer Heparin Anti-Xa Level ABG pH POC ABG pCO2 POC ABG pO2 132.7 H ABG Hemoglobin 11.5 L ABG Oxyhemoglobin ABG Sodium 130.6 L ABG Potassium 5.3 H ABG Chloride ABG Glucose 145 H Carboxyhemoglobin 0.2 L Sodium Potassium Chloride Carbon Dioxide BUN Creatinine Glucose POC Glucose 110 H Lactic Acid Calcium Lactate Dehydrogenase C-Reactive Protein NT-Pro-B Natriuret Pep Total Protein Albumin TSH Arterial Blood Glucose 145 H Arterial Blood Ionized Calcium 4.4 L Urine WBC (Auto) 19.0 H Crossmatch 11/04/20 11/04/20 11/04/20 13:01 13:01 17:40 WBC RBC Hgb Hct RDW Seg Neuts % (Manual) Lymphocytes % (Manual) Seg Neutrophils # Man Lymphocytes # (Manual) Monocytes # (Manual) PT INR APTT D-Dimer Heparin Anti-Xa Level 0.26 L ABG pH POC ABG pCO2 POC ABG pO2 ABG Hemoglobin ABG Oxyhemoglobin ABG Sodium ABG Potassium ABG Chloride ABG Glucose Carboxyhemoglobin Sodium Potassium Chloride Carbon Dioxide BUN Creatinine Glucose POC Glucose 135 H Lactic Acid Calcium Lactate Dehydrogenase C-Reactive Protein 8.30 H NT-Pro-B Natriuret Pep Total Protein Albumin TSH Arterial Blood Glucose Arterial Blood Ionized Calcium Urine WBC (Auto) Crossmatch 11/04/20 11/04/20 11/05/20 19:55 23:20 00:53 WBC RBC Hgb 9.7 L 9.0 L Hct 28.3 L D 26.0 L RDW Seg Neuts % (Manual) Lymphocytes % (Manual) Seg Neutrophils # Man Lymphocytes # (Manual) Monocytes # (Manual) PT INR APTT D-Dimer Heparin Anti-Xa Level ABG pH POC ABG pCO2 POC ABG pO2 ABG Hemoglobin ABG Oxyhemoglobin ABG Sodium ABG Potassium ABG Chloride ABG Glucose Carboxyhemoglobin Sodium Potassium Chloride Carbon Dioxide BUN Creatinine Glucose POC Glucose 143 H Lactic Acid Calcium Lactate Dehydrogenase C-Reactive Protein NT-Pro-B Natriuret Pep Total Protein Albumin TSH Arterial Blood Glucose Arterial Blood Ionized Calcium Urine WBC (Auto) Crossmatch 11/05/20 11/05/20 11/05/20 02:16 03:16 03:37 WBC 33.5 H RBC 3.01 L Hgb 8.8 L Hct 25.6 L RDW Seg Neuts % (Manual) 93.5 H Lymphocytes % (Manual) 3.5 L Seg Neutrophils # Man 31.3 H Lymphocytes # (Manual) Monocytes # (Manual) 1.0 H PT INR APTT D-Dimer Heparin Anti-Xa Level 0.99 H ABG pH POC ABG pCO2 POC ABG pO2 131.3 H ABG Hemoglobin 9.2 L ABG Oxyhemoglobin ABG Sodium 131.6 L ABG Potassium ABG Chloride 110.0 H ABG Glucose 168 H Carboxyhemoglobin 0.3 L Sodium Potassium Chloride Carbon Dioxide BUN Creatinine Glucose POC Glucose Lactic Acid Calcium Lactate Dehydrogenase C-Reactive Protein NT-Pro-B Natriuret Pep Total Protein Albumin TSH Arterial Blood Glucose 168 H Arterial Blood Ionized Calcium 4.4 L Urine WBC (Auto) Crossmatch 11/05/20 11/05/20 11/05/20 03:37 05:19 18:18 WBC RBC Hgb Hct RDW Seg Neuts % (Manual) Lymphocytes % (Manual) Seg Neutrophils # Man Lymphocytes # (Manual) Monocytes # (Manual) PT INR APTT D-Dimer Heparin Anti-Xa Level ABG pH POC ABG pCO2 POC ABG pO2 ABG Hemoglobin ABG Oxyhemoglobin ABG Sodium ABG Potassium ABG Chloride ABG Glucose Carboxyhemoglobin Sodium Potassium Chloride 109.5 H Carbon Dioxide BUN 55 H Creatinine 2.1 H Glucose 157 H POC Glucose 142 H 124 H Lactic Acid Calcium 7.0 L Lactate Dehydrogenase C-Reactive Protein NT-Pro-B Natriuret Pep Total Protein Albumin TSH Arterial Blood Glucose Arterial Blood Ionized Calcium Urine WBC (Auto) Crossmatch 11/05/20 11/05/20 11/05/20 19:00 21:20 23:30 WBC RBC Hgb Hct RDW Seg Neuts % (Manual) Lymphocytes % (Manual) Seg Neutrophils # Man Lymphocytes # (Manual) Monocytes # (Manual) PT INR APTT 63.8 H* D-Dimer Heparin Anti-Xa Level ABG pH POC ABG pCO2 POC ABG pO2 ABG Hemoglobin ABG Oxyhemoglobin ABG Sodium ABG Potassium ABG Chloride ABG Glucose Carboxyhemoglobin Sodium Potassium Chloride Carbon Dioxide BUN Creatinine Glucose POC Glucose 156 H Lactic Acid Calcium Lactate Dehydrogenase C-Reactive Protein NT-Pro-B Natriuret Pep Total Protein 4.3 L Albumin 2.1 L TSH Arterial Blood Glucose Arterial Blood Ionized Calcium Urine WBC (Auto) Crossmatch 11/06/20 11/06/20 11/06/20 02:54 04:00 04:00 WBC 33.0 H RBC 2.68 L Hgb 7.7 L Hct 23.3 L RDW Seg Neuts % (Manual) 95.0 H Lymphocytes % (Manual) 2.0 L Seg Neutrophils # Man 31.4 H Lymphocytes # (Manual) 0.7 L Monocytes # (Manual) 1.0 H PT INR APTT D-Dimer Heparin Anti-Xa Level ABG pH POC ABG pCO2 POC ABG pO2 116.5 H ABG Hemoglobin 9.7 L ABG Oxyhemoglobin ABG Sodium 134.5 L ABG Potassium 5.0 H ABG Chloride 109.0 H ABG Glucose 165 H Carboxyhemoglobin 0.3 L Sodium Potassium 5.1 H Chloride 108.6 H Carbon Dioxide BUN 62 H Creatinine 2.2 H Glucose 155 H POC Glucose Lactic Acid Calcium 7.3 L Lactate Dehydrogenase C-Reactive Protein NT-Pro-B Natriuret Pep Total Protein Albumin TSH Arterial Blood Glucose 165 H Arterial Blood Ionized Calcium 4.5 L Urine WBC (Auto) Crossmatch 11/06/20 11/06/20 11/07/20 05:17 17:26 04:00 WBC 28.9 H RBC 2.44 L Hgb 7.1 L Hct 21.2 L RDW 15.4 H Seg Neuts % (Manual) 95.0 H Lymphocytes % (Manual) 3.0 L Seg Neutrophils # Man 27.5 H Lymphocytes # (Manual) 0.9 L Monocytes # (Manual) PT INR APTT D-Dimer Heparin Anti-Xa Level ABG pH POC ABG pCO2 POC ABG pO2 ABG Hemoglobin ABG Oxyhemoglobin ABG Sodium ABG Potassium ABG Chloride ABG Glucose Carboxyhemoglobin Sodium Potassium Chloride Carbon Dioxide BUN Creatinine Glucose POC Glucose 147 H 132 H Lactic Acid Calcium Lactate Dehydrogenase C-Reactive Protein NT-Pro-B Natriuret Pep Total Protein Albumin TSH Arterial Blood Glucose Arterial Blood Ionized Calcium Urine WBC (Auto) Crossmatch 11/07/20 11/07/20 11/07/20 04:00 04:00 12:06 WBC RBC Hgb Hct RDW Seg Neuts % (Manual) Lymphocytes % (Manual) Seg Neutrophils # Man Lymphocytes # (Manual) Monocytes # (Manual) PT INR APTT D-Dimer Heparin Anti-Xa Level ABG pH POC ABG pCO2 POC ABG pO2 130.1 H ABG Hemoglobin 7.5 L ABG Oxyhemoglobin ABG Sodium ABG Potassium 5.0 H ABG Chloride 110.0 H ABG Glucose 152 H Carboxyhemoglobin Sodium Potassium 5.3 H Chloride 108.2 H Carbon Dioxide BUN 77 H Creatinine 2.4 H Glucose 144 H POC Glucose 144 H Lactic Acid Calcium 7.5 L Lactate Dehydrogenase C-Reactive Protein NT-Pro-B Natriuret Pep Total Protein Albumin TSH Arterial Blood Glucose 152 H Arterial Blood Ionized Calcium Urine WBC (Auto) Crossmatch Chest x-ray: image reviewed (no new infiltrate) Allied health notes reviewed: nursing
[2020-11-07] MEDS ORDERED: MAGNESIUM CITRATE 300 ML ORAL LIQD PO ONE (17:46)
[2020-11-07] MEDS: PANTOPRAZOLE 40 MG INJ IV SCH (22:08)
[2020-11-07] MEDS: ONDANSETRON 4 MG/2 ML INJ IV PRN (23:09)
[2020-11-08] MEDS: fentaNYL DRIP Premix 2,000 MCG/100 ML BAG IV SCH ×2 (00:55→16:50)
--- NOTE | 2020-11-08 03:23 | XRay Report ---
CHEST 1 VIEW 11/08/2020 2:11 AM INDICATION / CLINICAL INFORMATION: follow up respiratory failure. COMPARISON: One view of the chest from 11/07/2020. FINDINGS: SUPPORT DEVICES: Unchanged. HEART / MEDIASTINUM: Stable. LUNGS / PLEURA: The right hemidiaphragm remains elevated. No acute pulmonary abnormality. No signific ant pleural effusion. No pneumothorax. ADDITIONAL FINDINGS: No significant additional findings. IMPRESSION: Stable appearance of the chest. Signer Name: Rafa Parmar MD Signed: 11/08/2020 3:19 AM Workstation Name: [id number]
[2020-11-08 05:35] LABS: Hematocrit 20.8 % (35.5-45.6); Hemoglobin 6.9 gm/dl (11.8-15.2); Mean Corpuscular HGB Conc 33 % (32-34); Mean Corpuscular Volume 88 fl (84-94); Platelet Count 173 K/mm3 (140-440); Red Blood Count 2.37 M/mm3 (3.65-5.03); Red Cell Distribution Width 15.3 % (13.2-15.2)
[2020-11-08 05:51] LABS: Calcium 7.6 mg/dL (8.4-10.2)
[2020-11-08 06:35] LABS: Total Cells Counted 200
[2020-11-08 06:36] LABS: Anisocytosis 1+; Platelet Estimate Consistent w Auto
[2020-11-08] MEDS ORDERED: LACTULOSE 20 GM/30 ML ORAL LIQD PO PRN (07:45)
[2020-11-08] MEDS ORDERED: DEXTROSE 50% IN WATER (25GM) 50 ML SYRINGE IV PRN (08:04)
--- NOTE | 2020-11-08 08:32 | Progress Note ---
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 Acute on chronic systolic heart failure exacerbation. Acute hypoxemic respiratory failure. 10/24/2020 Acute CVA with right hemiparesis PT and OT 10/25/2020 Acute CVA with right hemiplegia Rehab consult requested Ejection fraction is 35 to 40% 10/26/2020 patient with acute CVA and right-sided hemiparesis PT evaluated the patient and recommended acute rehab Case management processing the request Possible discharge in 1 to 2 days if stable 10/27/2020; patient is clinically stable, awaiting rehab/SNF placement DC planning per Case management. 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 No new complain. Clinically stable Patient is going for KELLY today. DC planning to rehab/SNF when cleared by neurology. DC planning per case management 10/29/20 patient is doing slightly better. No new complain. Clinically stable, continue physical therapy occupational therapy. Patient is going for KELLY on Sunday. DC planning to rehab/SNF after KELLY on Sunday. DC planning per case management 10/30/20 patient is sitting in chair. No new complain. Clinically stable, continue physical therapy occupational therapy. Patient is going for KELLY on Sunday. Awaiting DC planning to rehab/SNF after KELLY on Sunday. 10/31/20 patient is seen and examined. No new complain. Clinically stable, continue physical therapy occupational therapy. Patient is going for KELLY on Sunday. Awaiting DC planning to rehab/SNF after KELLY on Sunday. 11/01/20 Patient is seen and examined Patient with acute CVA and right-sided hemiparesis Patient is evaluated by PT and recommended acute rehab Patient is going for KELLY today Patient is waiting for DC planning to rehab/SNF after KELLY. 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 11/02/2020. KELLY revealed left atrial appendage thrombus. Mildly dilated left ventricle with mild left ventricular hypertrophy with moderate global left ventricular hypokinesis with EF of 40 to 45%. Anticoagulation per cardiology recommendations. Physical therapy recommendations for acute rehab. 11/03/2020. Patient appears to have worsening aphasia and worsening right-sided weakness today per neurology. MRI brain stat. Leukocytosis likely leukemoid reaction from compartment syndrome. Patient is s/p right lower extremity thombectomy with 4 compartment fasciotomy yesterday. Bleeding from incisions over night. Consider ID consultation. Start empiric antibiotics. 11/04/2020. Patient decompensated yesterday evening with hypotension and worsening mental status. Patient was started on vasopressors and intubated. Patient is currently intubated and on fentanyl for sedation. Patient with worsening leukocytosis. Lactic acidosis likely secondary to compartment syndrome. Patient is s/p right lower extremity thombectomy with 4 compartment fasciotomy on 11/02/2020. Levaquin started empirically yesterday. ID consultation today. Patient also with worsening creatinine secondary to acute kidney injury. 11/05/2020. Patient attempted to pull out his ETT while I was examining him. Continue restraints for safety. Patient did manage to pull out his Winkler catheter and now has hematuria. We will irrigate the bladder and monitor closely patient is on anticoagulation with IV heparin. Continue Levophed drip to maintain MAP >65. Patient currently with mechanical ventilation AC mode rate of 12, tidal volume 500, FiO2 30% and a PEEP of 6. Continue fentanyl for sedation. Consult hematology hypercoagulable state given the arterial and venous thrombi. 11/06/2020. Hematology ordered argatroban and steroid pulse therapy. Follow work-up to rule out HIT. Follow-up pF4 Ab testing, Hgb electrophoresis, cardiolipin ab. Continue Levophed drip to maintain MAP >65. Patient currently with mechanical ventilation AC mode rate of 12, tidal volume 500, FiO2 30% and a PEEP of 6. Continue fentanyl for sedation. Continue antibiotics of cefepime and vancomycin. Sputum, blood and urine cultures are negative. Continue restraints for safety. 11/07/2020. Continue steroid pulse therapy per hematology recommendations. Argatroban on hold for GI bleeding and hematuria. Follow-up HIT panel and pF4 Ab testing, Hgb electrophoresis, cardiolipin ab. Continue Levophed drip to maintain MAP >65. Patient currently with mechanical ventilation AC mode rate of 12, tidal volume 500, FiO2 30% and a PEEP of 6. Continue fentanyl for sedation. Continue antibiotics of cefepime and vancomycin. Sputum, blood and urine cultures are negative. Continue restraints for safety. 11/08/2020. Abdominal distention is worsening. Check CT scan of the abdomen and pelvis for further evaluation. Continue steroid pulse therapy per hematology recommendations. Argatroban on hold for GI bleeding and hematuria. Follow-up HIT panel and pF4 Ab testing, Hgb electrophoresis, cardiolipin ab. Continue Levophed drip to maintain MAP > 65. Patient currently with mechanical ventilation AC mode rate of 12, tidal volume 500, FiO2 30% and a PEEP of 6. Continue fentanyl for sedation. Continue antibiotics of cefepime and vancomycin. Sputum, blood and urine cultures are negative. ID following continue restraints for safety. The high probability of a clinically significant, sudden or life threatening deterioration of the [cardiac, respiratory and hemodynamic] system(s) required my full and direct attention, intervention and personal management. The aggregate critical care time was [32] minutes. This time is in addition to time spent performing reported procedures but includes the following: [x] Data Review and interpretation [x] Patient assessment and monitoring of vital signs [x] Documentation [x] Medication orders and management History Interval history: Patient decompensated yesterday evening with hypotension and worsening mental status. Patient was started on vasopressors and intubated. Patient is currently intubated and on fentanyl for sedation. Hospitalist Physical - Constitutional Vitals: Temp Pulse Resp BP Pulse Ox 98.2 F 68 12 111/59 100 11/08/20 08:00 11/08/20 07:35 11/08/20 06:15 11/08/20 07:35 11/08/20 07:35 General appearance: Present: other (Obtunded, intubated) - EENT Eyes: Present: PERRL, EOM intact ENT: hearing intact, clear oral mucosa, dentition normal - Neck Neck: Present: supple, normal ROM - Respiratory Respiratory effort: normal Respiratory: bilateral: CTA - Cardiovascular Rhythm: regular Heart Sounds: Present: S1 & S2. Absent: gallop, rub - Extremities Extremities: no ischemia, No edema, Full ROM - Abdominal General gastrointestinal: soft, non-tender, non-distended, normal bowel sounds - Integumentary Integumentary: Present: clear, warm, dry - Neurologic Neurologic: CNII-XII intact, moves all extremities HEART Score - HEART Score Troponin: Troponin T 0.026 ng/mL (0.00-0.029) 10/23/20 16:39 Results - Labs CBC & Chem 7: 11/08/20 04:39 11/08/20 04:39 Labs: Laboratory Last Values WBC 23.1 K/mm3 (4.5-11.0) H 11/08/20 04:39 RBC 2.37 M/mm3 (3.65-5.03) L 11/08/20 04:39 Hgb 6.9 gm/dl (11.8-15.2) L 11/08/20 04:39 Hct 20.8 % (35.5-45.6) L 11/08/20 04:39 MCV 88 fl (84-94) 11/08/20 04:39 MCH 29 pg (28-32) 11/08/20 04:39 MCHC 33 % (32-34) 11/08/20 04:39 RDW 15.3 % (13.2-15.2) H 11/08/20 04:39 Plt Count 173 K/mm3 (140-440) 11/08/20 04:39 Lymph % (Auto) 27.8 % (13.4-35.0) 10/23/20 13:32 Josephine % (Auto) 6.0 % (0.0-7.3) 10/23/20 13:32 Eos % (Auto) 1.6 % (0.0-4.3) 10/23/20 13:32 Baso % (Auto) 0.7 % (0.0-1.8) 10/23/20 13:32 Lymph # (Auto) 1.5 K/mm3 (1.2-5.4) 10/23/20 13:32 Josephine # (Auto) 0.3 K/mm3 (0.0-0.8) 10/23/20 13:32 Eos # (Auto) 0.1 K/mm3 (0.0-0.4) 10/23/20 13:32 Baso # (Auto) 0.0 K/mm3 (0.0-0.1) 10/23/20 13:32 Add Manual Diff Complete 11/08/20 04:39 Total Counted 200 11/08/20 04:39 Seg Neutrophils % Paper Folder 11/08/20 04:39 Seg Neuts % (Manual) 95.5 % (40.0-70.0) H 11/08/20 04:39 Lymphocytes % (Manual) 2.5 % (13.4-35.0) L 11/08/20 04:39 Monocytes % (Manual) 2.0 % (0.0-7.3) 11/08/20 04:39 Metamyelocytes % 1.0 % 11/04/20 04:00 Nucleated RBC % Not Reportable 11/08/20 04:39 Seg Neutrophils # 3.4 K/mm3 (1.8-7.7) 10/23/20 13:32 Seg Neutrophils # Man 22.1 K/mm3 (1.8-7.7) H 11/08/20 04:39 Band Neutrophils # 0.0 K/mm3 11/08/20 04:39 Lymphocytes # (Manual) 0.6 K/mm3 (1.2-5.4) L 11/08/20 04:39 Abs React Lymphs (Man) 0.0 K/mm3 11/08/20 04:39 Monocytes # (Manual) 0.5 K/mm3 (0.0-0.8) 11/08/20 04:39 Eosinophils # (Manual) 0.0 K/mm3 (0.0-0.4) 11/08/20 04:39 Basophils # (Manual) 0.0 K/mm3 (0.0-0.1) 11/08/20 04:39 Metamyelocytes # 0.0 K/mm3 11/08/20 04:39 Myelocytes # 0.0 K/mm3 11/08/20 04:39 Promyelocytes # 0.0 K/mm3 11/08/20 04:39 Blast Cells # 0.0 K/mm3 11/08/20 04:39 WBC Morphology Not Reportable 11/08/20 04:39 Hypersegmented Neuts Not Reportable 11/08/20 04:39 Hyposegmented Neuts Not Reportable 11/08/20 04:39 Hypogranular Neuts Not Reportable 11/08/20 04:39 Smudge Cells Not Reportable 11/08/20 04:39 Toxic Granulation Not Reportable 11/08/20 04:39 Toxic Vacuolation Not Reportable 11/08/20 04:39 Dohle Bodies Not Reportable 11/08/20 04:39 Pelger-Huet Anomaly Not Reportable 11/08/20 04:39 Demario Rods Not Reportable 11/08/20 04:39 Platelet Estimate Consistent w auto 11/08/20 04:39 Clumped Platelets Not Reportable 11/08/20 04:39 Plt Clumps, EDTA Not Reportable 11/08/20 04:39 Large Platelets Not Reportable 11/08/20 04:39 Giant Platelets Not Reportable 11/08/20 04:39 Platelet Satelliting Not Reportable 11/08/20 04:39 Plt Morphology Comment Not Reportable 11/08/20 04:39 RBC Morphology Not Reportable 11/08/20 04:39 Dimorphic RBCs Not Reportable 11/08/20 04:39 Polychromasia Not Reportable 11/08/20 04:39 Hypochromasia Not Reportable 11/08/20 04:39 Poikilocytosis Not Reportable 11/08/20 04:39 Anisocytosis 1+ 11/08/20 04:39 Microcytosis Not Reportable 11/08/20 04:39 Macrocytosis Not Reportable 11/08/20 04:39 Spherocytes Not Reportable 11/08/20 04:39 Pappenheimer Bodies Not Reportable 11/08/20 04:39 Sickle Cells Not Reportable 11/08/20 04:39 Target Cells Not Reportable 11/08/20 04:39 Tear Drop Cells Not Reportable 11/08/20 04:39 Ovalocytes Not Reportable 11/08/20 04:39 Helmet Cells Not Reportable 11/08/20 04:39 [place] Bodies Not Reportable 11/08/20 04:39 [place] Rings Not Reportable 11/08/20 04:39 [place] Cells Not Reportable 11/08/20 04:39 Bite Cells Not Reportable 11/08/20 04:39 Crenated Cell Not Reportable 11/08/20 04:39 Elliptocytes Not Reportable 11/08/20 04:39 Acanthocytes (Spur) Not Reportable 11/08/20 04:39 Rouleaux Not Reportable 11/08/20 04:39 Hemoglobin C Crystals Not Reportable 11/08/20 04:39 Schistocytes Not Reportable 11/08/20 04:39 Malaria parasites Not Reportable 11/08/20 04:39 Lico Bodies Not Reportable 11/08/20 04:39 Hem Pathologist Commnt No 11/08/20 04:39 PT 16.2 Sec. (12.2-14.9) H 11/02/20 19:55 INR 1.30 (0.87-1.13) H 11/02/20 19:55 APTT 32.8 Sec. (24.2-36.6) 11/06/20 05:00 D-Dimer 4139.61 ng/mlDDU (0-234) H 10/23/20 18:23 Heparin Anti-Xa Level 0.43 U.I./ml (0.3-0.7) 11/05/20 11:30 ABG pH 7.494 (7.320-7.450) H 11/08/20 03:38 POC ABG pCO2 36.6 mmHg (32.0-48.0) 11/08/20 03:38 POC ABG pO2 111.5 mmHg (83-108) H 11/08/20 03:38 POC ABG HCO3 27.5 11/08/20 03:38 ABG O2 Saturation 98.4 (0-100) 11/08/20 03:38 POC ABG Base Excess 3.9 11/08/20 03:38 ABG Hemoglobin 6.7 (12.0-17.5) L 11/08/20 03:38 ABG Oxyhemoglobin 97.0 (94-98) 11/08/20 03:38 ABG Methemoglobin 0.3 (0.0-1.5) 11/08/20 03:38 ABG Sodium 141.1 mmol/L (136.0-145.0) 11/08/20 03:38 ABG Potassium 4.9 mmol/L (3.40-4.50) H 11/08/20 03:38 ABG Chloride 112.0 mmol/L (98-107) H 11/08/20 03:38 ABG Glucose 153 mg/dL (65-95) H 11/08/20 03:38 Carboxyhemoglobin 1.1 (0.5-1.5) 11/08/20 03:38 FiO2 % 25.0 11/08/20 03:38 Sodium 144 mmol/L (137-145) 11/08/20 04:39 Potassium 5.1 mmol/L (3.6-5.0) H 11/08/20 04:39 Chloride 111.3 mmol/L (98-107) H 11/08/20 04:39 Carbon Dioxide 28 mmol/L (22-30) 11/08/20 04:39 Anion Gap 10 mmol/L 11/08/20 04:39 BUN 86 mg/dL (9-20) H 11/08/20 04:39 Creatinine 2.5 mg/dL (0.8-1.3) H 11/08/20 04:39 Estimated GFR 31 ml/min 11/08/20 04:39 BUN/Creatinine Ratio 34 % 11/08/20 04:39 Glucose 142 mg/dL (75-100) H 11/08/20 04:39 POC Glucose 117 mg/dL (70-105) H 11/07/20 17:29 Lactic Acid 1.30 mmol/L (0.7-2.0) 11/04/20 13:01 Calcium 7.6 mg/dL (8.4-10.2) L 11/08/20 04:39 Magnesium 2.20 mg/dL (1.7-2.3) 10/23/20 20:33 Ferritin 238.5 ng/mL (30.0-300.0) 10/23/20 18:23 Total Bilirubin 0.20 mg/dL (0.1-1.2) 11/05/20 19:00 Direct Bilirubin < 0.2 mg/dL (0-0.2) 11/05/20 19:00 Indirect Bilirubin 0.0 mg/dL 11/05/20 19:00 AST 25 units/L (5-40) 11/05/20 19:00 ALT 36 units/L (7-56) 11/05/20 19:00 Alkaline Phosphatase 40 units/L (35-129) 11/05/20 19:00 Lactate Dehydrogenase 334 units/L (91-180) H 10/23/20 18:23 Troponin T 0.026 ng/mL (0.00-0.029) 10/23/20 16:39 C-Reactive Protein 8.30 mg/dL (0.00-1.30) H 11/04/20 13:01 NT-Pro-B Natriuret Pep 5806 pg/mL (0-900) H 10/23/20 13:32 Total Protein 4.3 g/dL (6.3-8.2) L 11/05/20 19:00 Albumin 2.1 g/dL (3.9-5) L 11/05/20 19:00 Albumin/Globulin Ratio 1.0 % 11/05/20 19:00 Triglycerides 60 mg/dL (2-149) 10/24/20 09: Cholesterol 139 mg/dL (50-199) 10/24/20 09: LDL Cholesterol Direct 87 mg/dL (50-130) 10/24/20 09: HDL Cholesterol 46 mg/dL (40-59) 10/24/20 09: Cholesterol/HDL Ratio 3.02 % 10/24/20 09:29 Procalcitonin 0.99 ng/mL (<0.15) 11/03/20 21:14 TSH 6.540 mlU/mL (0.270-4.200) H 10/23/20 18:23 TSH 7.100 mlU/mL (0.270-4.200) H 10/23/20 18:23 Free T4 1.33 ng/dL (0.76-1.46) 10/23/20 18:23 Arterial Blood Glucose 153 mg/dL (65-95) H 11/08/20 03:38 Arterial Blood Ionized Calcium 4.5 mg/dL (4.6-5.3) L 11/08/20 03:38 Urine Color Yellow (Yellow) 11/04/20 11:00 Urine Turbidity Hazy (Clear) 11/04/20 11:00 Urine pH 5.0 (5.0-7.0) 11/04/20 11:00 Ur Specific Stephen[place] 1.017 (1.003-1.030) 11/04/20 11:00 Urine Protein 30 mg/dl mg/dL (Negative) 11/04/20 11:00 Urine Glucose (UA) 50 mg/dL (Negative) 11/04/20 11:00 Urine Ketones Neg mg/dL (Negative) 11/04/20 11:00 Urine Blood Neg (Negative) 11/04/20 11:00 Urine Nitrite Neg (Negative) 11/04/20 11:00 Urine Bilirubin Neg (Negative) 11/04/20 11:00 Urine Urobilinogen < 2.0 mg/dL (<2.0) 11/04/20 11:00 Ur Leukocyte Esterase Tr (Negative) 11/04/20 11:00 Urine WBC (Auto) 19.0 /HPF (0.0-6.0) H 11/04/20 11:00 Urine RBC (Auto) 3.0 /HPF (0.0-6.0) 11/04/20 11:00 U Epithel Cells (Auto) < 1.0 /HPF (0-13.0) 11/04/20 11:00 Urine Mucus Few /HPF 11/04/20 11:00 Urine Eosinophils None seen (None Seen) 11/04/20 12:50 Urine Creatinine < 4.2 mg/dL (0.1-20.0) 11/04/20 12:50 Urine Sodium 10 mmol/L 11/04/20 12:50 Random Vancomycin 10.7 ug/mL (0-40.0) 11/08/20 04:39 Coronavirus (PCR) Negative (Negative) 10/24/20 09:57 Blood Type O POSITIVE 11/02/20 15:00 Antibody Screen Negative 11/02/20 15:00 Crossmatch See Detail 11/02/20 15:00 Microbiology: Microbiology 11/04/20 Unknown Tracheal Aspirate Sputum Culture - Final Neisha Albicans 11/04/20 13:01 Peripheral/Venous Blood Culture - Preliminary NO GROWTH AFTER 72 HOURS 11/04/20 13:01 Peripheral/Venous Blood Culture - Preliminary NO GROWTH AFTER 72 HOURS 11/04/20 11:00 Urine,Clean Catch Urine Culture - Final NO GROWTH AFTER 48 HOURS Winkler/IV: Voiding Method Indwelling Catheter Active Medications - Current Medications Current Medications: Generic Name Dose Route Start Last Admin Trade Name Freq PRN Reason Stop Dose Admin Acetaminophen 650 mg 10/23/20 20:00 Acetaminophen 325 Mg Tab PO Q4H PRN Pain, Mild (1-3) Lipase/Protease/Amylase 1 each 11/04/20 13:25 Lipase 10,500/Protease 25,000/Amylase 43,750 (Units) Dr Fernández FEEDTUBE PRN PRN For Clogged Feeding Tube Ascorbic Acid 500 mg 10/23/20 22:00 11/07/20 22:08 Ascorbic Acid 500 Mg Tab PO 500 mg BID ALEX Administration Aspirin 325 mg 10/24/20 10:00 11/07/20 09:56 Aspirin 325 Mg Tab PO 325 mg QDAY ALEX Administration Atorvastatin Calcium 40 mg 10/23/20 22:00 11/07/20 22:08 Atorvastatin 40 Mg Tab PO 40 mg QHS ALEX Administration Bisacodyl 10 mg 10/23/20 20:00 11/07/20 09:56 Bisacodyl 10 Mg Rect Supp [place] 10 mg QDAY PRN Administration Constipation Cholecalciferol 1,000 unit 10/24/20 10:00 11/07/20 09:56 Cholecalciferol (Vit D3) 1000 Unit (25 Mcg) Tab PO 1,000 unit QDAY ALEX Administration Dextrose 50 ml 11/08/20 08:04 Dextrose 50% In Water (25gm) 50 Ml Syringe IV Q30MIN PRN Hypoglycemia Protocol Docusate Sodium 100 mg 11/02/20 12:00 11/07/20 22:08 Docusate Sodium 100 Mg Cap PO 100 mg BID ALEX Administration Fentanyl 50 mcg 11/03/20 16:46 Fentanyl 100 Mcg/2 Ml Inj IV Q10MIN PRN ANALGESIA Hydrophilic Ointment 1 applic 11/03/20 16:46 Lip Therapy Vaseline TP Q2HR PRN Dry Lips Sodium Chloride 500 mls @ 125 mls/hr 11/03/20 16:00 11/04/20 05:06 Nacl 0.9% 500 Ml IV 125 mls/hr DIRECT ALEX Administration Fentanyl Citrate 2,000 mcg in 100 mls @ 4.86 mls/hr 11/03/20 17:24 11/08/20 00:55 Fentanyl Drip Premix IV 2 mcg/kg/hr TITR ALEX 9.72 mls/hr Administration Protocol 1 MCG/KG/HR NORepinephrine/NS 8 MG-250 ML 8 mg in 250 mls @ 3.75 mls/hr 11/03/20 18:00 11/08/20 04:15 Norepinephrine/Ns 8 Mg-250 Ml (Double Conc) IV 2 mcg/min TITRATE ALEX 3.75 mls/hr Titration Protocol 2 MCG/MIN Cefepime HCl 2 gm in 100 mls @ 200 mls/hr 11/04/20 11:00 11/07/20 22:07 Cefepime/Ns 2 Gm/100 Ml IV 200 mls/hr Q12H ALEX Administration Protocol Insulin Human Regular 0 units 11/08/20 09:00 Insulin Regular, Human 100 Units/1 Ml SUB-Q Q6H ALEX Protocol Lactulose 20 gm 11/08/20 07:45 Lactulose 20 Gm/30 Ml Oral Liqd PO QDAY PRN CONSTIPATION Magnesium Hydroxide 30 ml 10/23/20 20:00 11/07/20 09:57 Magnesium Hydroxide (Mom) Oral Liqd Udc PO 30 ml Q4H PRN Administration Constipation Metoclopramide HCl 10 mg 10/23/20 20:00 Metoclopramide 10 Mg Tab PO Q6H PRN Nausea And Vomiting Metoprolol Tartrate 6.25 mg 10/27/20 10:00 11/07/20 22:08 Metoprolol Tartrate 25 Mg Tab PO Not Given BID [facility] Multi-Ingred Cream/Lotion/Oil/Oint 1 applic 11/03/20 16:46 Mineral Oil/Petrolatum, White Ophth Oint 3.5 Gm OU Q4HR PRN Dry Eye(s) Ondansetron HCl 4 mg 10/23/20 20:00 11/07/20 23:09 Ondansetron 4 Mg/2 Ml Inj IV 4 mg Q8H PRN Administration Nausea And Vomiting Oxycodone/Acetaminophen 1 tab 11/03/20 09:27 Oxycodone /Acetaminophen 5-325mg Tab PO Q6H PRN Pain, Moderate (4-6) Pantoprazole Sodium 40 mg 11/07/20 22:00 11/07/20 22:08 Pantoprazole 40 Mg Inj IV 40 mg BID ALEX Administration Promethazine HCl 25 mg 10/23/20 20:00 Promethazine 25 Mg Rect Supp NJ Q6H PRN Nausea And Vomiting Simple Syrup 15 ml 11/04/20 13:25 Simple Syrup 15 Ml FEEDTUBE PRN PRN Hypoglycemia Simple Syrup 30 ml 11/04/20 13:25 Simple Syrup 15 Ml FEEDTUBE PRN PRN Hypoglycemia Sodium Bicarbonate 325 mg 11/04/20 13:25 Sodium Bicarbonate 325 Mg Tab FEEDTUBE PRN PRN For Clogged Feeding Tube Sodium Chloride 10 ml 10/23/20 20:00 11/04/20 21:25 Sodium Chloride 0.9% 10 Ml Flush Syringe IV 10 ml PRN PRN Administration LINE FLUSH Sodium Polystyrene Sulfonate 45 gm 11/08/20 09:00 Sodium Polystyrene 15 Gm/60 Ml Oral Liqd PO 11/08/20 09:01 ONCE ONE Zinc Sulfate 220 mg 10/23/20 22:00 11/07/20 22:08 Zinc Sulfate 220 Mg Cap PO 220 mg BID ALEX Administration Nutrition/Malnutrition Assess - Dietary Evaluation Nutrition/Malnutrition Findings: Nutrition Notes Start: 10/24/20 11:33 Freq: Status: Active Protocol: Document 11/04/20 13:14 AL (Rec: 11/04/20 13:25 AL [id number]) Co-Sign 11/04/20 13:14 LP Nutrition Notes Need for Assessment generated from: MD Order Initial or Follow up Reassessment Current Diagnosis Acute Kidney Injury, Hypertension,Heart Failure, Respiratory Failure,Stroke Other Pertinent Diagnosis pneu Current Diet Cardiac Diet Labs/Tests K 5.7 BUN 57 Cr 2.3 Pertinent Medications Norepinephine 4.86 ml/hr NS at 125 ml/h Colace Solumedrol Height 5 ft 11 in Weight 97.2 kg [place] Body Weight (kg) 78.18 BMI 29.9 Intake Prior to Admission Poor Weight Status Overweight Subjective/Other Information MD order for write/manage TF. Pt has high K lab values and has an STACEY. Pt. s/p open thrombectomy of right leg and fasciotomy. Will calculate Nepro TF. Burn Absent Trauma Absent Current % PO Negligible Minimum of two criteria No physical signs of malnutrition #2 Nutrition Diagnosis Inadequate oral intake Etiology Respiratory failure As Evidenced by Signs and Symptoms Pt intubated and unable to consume PO Is patient on ventilator? Yes Is Patient Ambulatory and/or Out of Bed No REE-([facility]-confined to bed) 4550.500 Additional Notes Protein: 116-195 g (1.2-2.0 g/ kg ABW) Fluid: 1 ml/kcal Nutrition Intervention Change Diet Order: Start TF Nutrition Support: Start Nepro 1.8 at 25 ml/hr and increase by 10 ml q8h until 45 ml (goal rate) is reached. Flush 150 ml q4h Kcal 1,944 Protein (gm) 88 Fluid (mL) 786 Goal #1 Meet at least 75% of energy and protein needs via TF Goal #2 TF tolerance. Anticipated Discharge Needs: Unable to determine at the moment. Follow-Up By: 11/05/20 Additional Comments FU for new TF, vent status, and renal labs.
[2020-11-08] MEDS ORDERED: SODIUM POLYSTYRENE 15 GM/60 ML ORAL LIQD PO ONE (09:00)
[2020-11-08] MEDS ORDERED: DOCUSATE SODIUM 100 MG/10 ML ORAL LIQD FEEDTUBE SCH (10:00)
--- NOTE | 2020-11-08 10:02 | Progress Note ---
Assessment and Plan 1. Acute kidney injury: Vasomotor STACEY in the setting of shock. Renal US negative for hydro. Monitor renal function. Renal prognosis is guarded. Creatinine level increasing. Avoid nephrotoxic agents. Meds dosage based on GFR. 2. FEN: Hyperkalemia, insulin-D50 ordered, monitor. Hyperchloremia, monitor. Monitor lytes and volume status. 3. Severe sepsis with shock: Etiology unclear, rule out bacteremia, UTI, pneumonia and other nosocomial infections. Levophed. Followed by ID. 4. 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 Seen by Neurology. 5. Acute hypoxemic respiratory failure: Intubated, on vent. 6. Acute on chronic systolic heart failure: EF 40-45%. Followed by Cards. 7. 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 8. Acute R LE ischemia: S/p thrombectomy. 9. Mild pneumatosis of ascending colon: Suspected bowel ischemia. General surgery consult. 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 10. Normochromic anemia: Monitor. Subjective: Patient was seen and examined at the bedside. Examination: General appearance: well-developed, appears stated age, no distress, intubated, on vent, NG tube HEENT: SCOTTY, atraumatic Neck: trachea midline Respiratory: Clear to Auscultation Heart: S1S2, regular, no murmur Abdomen: soft, appears distended, bowel sounds heard, NT Integumentary: R LE dressing noted Neurologic: opens eyes intermittently, not responding Ext: bilateral LE edema noted, R > L : Winkler catheter Subjective Date of service: 11/08/20 Principal diagnosis: CVA, Atrial Thrombus, Acute Limb Ischemia, ?GIB Objective - Vital Signs Vital signs: Vital Signs - 12hr 11/07/20 11/07/20 11/07/20 22:08 22:15 22:30 Temperature Pulse Rate 68 66 66 Respiratory 14 13 Rate Blood Pressure 93/58 101/61 102/65 O2 Sat by Pulse 100 100 Oximetry 11/07/20 11/07/20 11/07/20 22:45 23:01 23:15 Temperature Pulse Rate 67 67 69 Respiratory 14 13 15 Rate Blood Pressure 113/65 113/65 104/63 O2 Sat by Pulse 100 100 100 Oximetry 11/07/20 11/07/20 11/08/20 23:30 23:45 00:00 Temperature 98.1 F Pulse Rate 68 66 67 Respiratory 14 14 18 Rate Blood Pressure 95/57 98/57 94/57 O2 Sat by Pulse 97 100 96 Oximetry 11/08/20 11/08/20 11/08/20 00:15 00:31 00:36 Temperature Pulse Rate 66 65 68 Respiratory 13 16 Rate Blood Pressure 98/57 89/57 89/57 O2 Sat by Pulse 100 100 100 Oximetry 11/08/20 11/08/20 11/08/20 00:45 01:00 01:15 Temperature Pulse Rate 66 66 67 Respiratory 14 13 13 Rate Blood Pressure 94/56 94/56 106/57 O2 Sat by Pulse 100 100 100 Oximetry 11/08/20 11/08/20 11/08/20 01:30 01:45 02:00 Temperature Pulse Rate 65 66 67 Respiratory 13 14 13 Rate Blood Pressure 97/55 96/58 100/60 O2 Sat by Pulse 100 100 100 Oximetry 11/08/20 11/08/20 11/08/20 02:15 02:30 02:45 Temperature Pulse Rate 65 65 66 Respiratory 12 13 14 Rate Blood Pressure 95/56 93/57 99/56 O2 Sat by Pulse 100 100 Oximetry 11/08/20 11/08/20 11/08/20 03:00 03:15 03:30 Temperature Pulse Rate 65 64 66 Respiratory 12 13 13 Rate Blood Pressure 95/53 95/52 95/52 O2 Sat by Pulse 100 100 81 L Oximetry 11/08/20 11/08/20 11/08/20 03:45 04:00 04:16 Temperature 98.7 F Pulse Rate 61 71 71 Respiratory 12 13 15 Rate Blood Pressure 73/45 123/65 111/55 O2 Sat by Pulse 86 100 Oximetry 11/08/20 11/08/20 11/08/20 04:30 04:45 05:00 Temperature Pulse Rate 71 68 69 Respiratory 15 13 12 Rate Blood Pressure 110/62 104/55 107/60 O2 Sat by Pulse 100 100 100 Oximetry 11/08/20 11/08/20 11/08/20 05:15 05:30 05:45 Temperature Pulse Rate 69 68 68 Respiratory 12 14 13 Rate Blood Pressure 104/62 106/61 91/69 O2 Sat by Pulse 100 100 100 Oximetry 11/08/20 11/08/20 11/08/20 06:00 06:15 07:35 Temperature Pulse Rate 68 67 68 Respiratory 12 12 Rate Blood Pressure 105/59 99/56 111/59 O2 Sat by Pulse 100 100 100 Oximetry 11/08/20 08:00 Temperature 98.2 F Pulse Rate Respiratory Rate Blood Pressure O2 Sat by Pulse Oximetry - Lab 11/08/20 04:39 11/08/20 04:39 Most recent lab results ABG pH 7.494 (7.320-7.450) H 11/08/20 03:38 ABG O2 Saturation 98.4 (0-100) 11/08/20 03:38 Calcium 7.6 mg/dL (8.4-10.2) L 11/08/20 04:39 Magnesium 2.20 mg/dL (1.7-2.3) 10/23/20 20:33 Urine Creatinine < 4.2 mg/dL (0.1-20.0) 11/04/20 12:50 Urine Sodium 10 mmol/L 11/04/20 12:50 Medications & Allergies - Medications Allergies/Adverse Reactions: Allergies No Known Allergies Allergy (Unverified 10/23/20 12:44) Home Medications: Home Medications Medication Instructions Recorded Confirmed Last Taken Type Levothyroxine Sodium 150 mcg PO DAILY 10/31/20 10/31/20 Unknown History [Levothyroxine] carvediloL [Coreg] 6.25 mg PO BID 10/31/20 10/31/20 Unknown History lisinopriL [Lisinopril] 10 mg PO DAILY 10/31/20 10/31/20 Unknown History Active Medications: Generic Name Dose Route Start Last Admin Trade Name Freq PRN Reason Stop Dose Admin Acetaminophen 650 mg 10/23/20 20:00 Acetaminophen 325 Mg Tab PO Q4H PRN Pain, Mild (1-3) Lipase/Protease/Amylase 1 each 11/04/20 13:25 Lipase 10,500/Protease 25,000/Amylase 43,750 (Units) Dr Pradeep MUÑIZTUBE PRN PRN For Clogged Feeding Tube Ascorbic Acid 500 mg 10/23/20 22:00 11/07/20 22:08 Ascorbic Acid 500 Mg Tab PO 500 mg BID ALEX Administration Aspirin 325 mg 10/24/20 10:00 11/07/20 09:56 Aspirin 325 Mg Tab PO 325 mg QDAY ALEX Administration Atorvastatin Calcium 40 mg 10/23/20 22:00 11/07/20 22:08 Atorvastatin 40 Mg Tab PO 40 mg QHS ALEX Administration Bisacodyl 10 mg 10/23/20 20:00 11/07/20 09:56 Bisacodyl 10 Mg Rect Supp FL 10 mg QDAY PRN Administration Constipation Cholecalciferol 1,000 unit 10/24/20 10:00 11/07/20 09:56 Cholecalciferol (Vit D3) 1000 Unit (25 Mcg) Tab PO 1,000 unit QDAY ALEX Administration Dextrose 50 ml 11/08/20 08:04 Dextrose 50% In Water (25gm) 50 Ml Syringe IV Q30MIN PRN Hypoglycemia Protocol Docusate Sodium 100 mg 11/08/20 10:00 Docusate Sodium 100 Mg/10 Ml Oral Liqd FEEDTUBE BID ALEX Fentanyl 50 mcg 11/03/20 16:46 Fentanyl 100 Mcg/2 Ml Inj IV Q10MIN PRN ANALGESIA Hydrophilic Ointment 1 applic 11/03/20 16:46 Lip Therapy Vaseline TP Q2HR PRN Dry Lips Sodium Chloride 500 mls @ 125 mls/hr 11/03/20 16:00 11/04/20 05:06 Nacl 0.9% 500 Ml IV 125 mls/hr DIRECT ALEX Administration Fentanyl Citrate 2,000 mcg in 100 mls @ 4.86 mls/hr 11/03/20 17:24 11/08/20 08:30 Fentanyl Drip Premix IV 1 mcg/kg/hr TITR ALEX 4.86 mls/hr Titration Protocol 1 MCG/KG/HR NORepinephrine/NS 8 MG-250 ML 8 mg in 250 mls @ 3.75 mls/hr 11/03/20 18:00 11/08/20 08:30 Norepinephrine/Ns 8 Mg-250 Ml (Double Conc) IV Infused TITRATE ALEX Titration Protocol 2 MCG/MIN Cefepime HCl 2 gm in 100 mls @ 200 mls/hr 11/08/20 22:00 Cefepime/Ns 2 Gm/100 Ml IV Q24H ALEX Protocol Insulin Human Regular 0 units 11/08/20 09:00 Insulin Regular, Human 100 Units/1 Ml SUB-Q Q6H ALEX Protocol Lactulose 20 gm 11/08/20 07:45 Lactulose 20 Gm/30 Ml Oral Liqd PO QDAY PRN CONSTIPATION Magnesium Hydroxide 30 ml 10/23/20 20:00 11/07/20 09:57 Magnesium Hydroxide (Mom) Oral Liqd Udc PO 30 ml Q4H PRN Administration Constipation Metoclopramide HCl 10 mg 10/23/20 20:00 Metoclopramide 10 Mg Tab PO Q6H PRN Nausea And Vomiting Metoprolol Tartrate 6.25 mg 10/27/20 10:00 11/07/20 22:08 Metoprolol Tartrate 25 Mg Tab PO Not Given BID ALEX Multi-Ingred Cream/Lotion/Oil/Oint 1 applic 11/03/20 16:46 Mineral Oil/Petrolatum, White Ophth Oint 3.5 Gm OU Q4HR PRN Dry Eye(s) Ondansetron HCl 4 mg 10/23/20 20:00 11/07/20 23:09 Ondansetron 4 Mg/2 Ml Inj IV 4 mg Q8H PRN Administration Nausea And Vomiting Oxycodone/Acetaminophen 1 tab 11/03/20 09:27 Oxycodone /Acetaminophen 5-325mg Tab PO Q6H PRN Pain, Moderate (4-6) Pantoprazole Sodium 40 mg 11/07/20 22:00 11/07/20 22:08 Pantoprazole 40 Mg Inj IV 40 mg BID ALEX Administration Promethazine HCl 25 mg 10/23/20 20:00 Promethazine 25 Mg Rect Supp FL Q6H PRN Nausea And Vomiting Simple Syrup 15 ml 11/04/20 13:25 Simple Syrup 15 Ml FEEDTUBE PRN PRN Hypoglycemia Simple Syrup 30 ml 11/04/20 13:25 Simple Syrup 15 Ml FEEDTUBE PRN PRN Hypoglycemia Sodium Bicarbonate 325 mg 11/04/20 13:25 Sodium Bicarbonate 325 Mg Tab FEEDTUBE PRN PRN For Clogged Feeding Tube Sodium Chloride 10 ml 10/23/20 20:00 11/04/20 21:25 Sodium Chloride 0.9% 10 Ml Flush Syringe IV 10 ml PRN PRN Administration LINE FLUSH Zinc Sulfate 220 mg 10/23/20 22:00 11/07/20 22:08 Zinc Sulfate 220 Mg Cap PO 220 mg BID ALEX Administration
--- NOTE | 2020-11-08 10:22 | Cat Scan Report ---
CT ABDOMEN AND PELVIS WITHOUT CONTRAST INDICATION / CLINICAL INFORMATION: abd distention. TECHNIQUE: Axial CT images were obtained through the abdomen and pelvis without IV contrast. Sagittal and fowler l reformatted images. All CT scans at this location are performed using CT dose reduction for ALARA b y means of automated exposure control. COMPARISON: None available. FINDINGS: LOWER CHEST: Mild cardiomegaly and trace pericardial effusion. The visualized lung bases are clear. LIVER: No significant abnormality. GALLBLADDER: A few tiny gallstones are suspected in the gallbladder. No abnormal dilatation or wall t hickening. BILE DUCTS: No significant abnormality. PANCREAS: No significant abnormality. SPLEEN: No significant abnormality. ADRENALS: No significant abnormality. RIGHT KIDNEY and URETER: No significant abnormality. LEFT KIDNEY and URETER: No significant abnormality. STOMACH and SMALL BOWEL: The stomach is decompressed with a nasogastric tube which terminates near th e pylorus. There is mild diffuse dilatation of small bowel loops without obvious transition point. Th ere is suggestion of pneumatosis of a few small bowel loops in the pelvis which is concerning for isc hemic changes although other etiologies are not excluded. COLON: Borderline dilated. Suggestion of mild pneumatosis in the ascending colon. APPENDIX: Not clearly identified, correlate with surgical history. PERITONEUM: Small perihepatic and interloop ascites is identified. No free air. No fluid collection. LYMPH NODES: No significant adenopathy. AORTA and ARTERIES: No significant abnormality. IVC and VEINS: No significant abnormality. URINARY BLADDER: The bladder is decompressed with a Winkler catheter and grossly unremarkable. REPRODUCTIVE ORGANS: No significant abnormality. ADDITIONAL FINDINGS: None. SKELETAL SYSTEM: Mild thoracolumbar spondylosis. IMPRESSION: Mild diffuse dilatation of small bowel loops and proximal colon with evidence of pneumatosis as descr ibed above. This is concerning for ischemic bowel. There is small ascites but no evidence for free ai r or fluid collection. Please correlate with the clinical presentation of the patient and consider russell rgical consult. Diffuse ileus is also suspected. Mild cardiomegaly and trace pericardial effusion. Cholelithiasis. Signer Name: Raji Padron Jr, MD Signed: 11/08/2020 10:17 AM Workstation Name: [id number]
[2020-11-08] MEDS ORDERED: SODIUM CHLORIDE 0.9% 500 ML 500 ML IV NR ×2 (10:45→13:23)
[2020-11-08] MEDS ORDERED: DEXTROSE 50% IN WATER (25GM) 50 ML SYRINGE IV ONE (11:15)
[2020-11-08] MEDS ORDERED: DEXTROSE 5% IN WATER 1,000 ML IV SCH (11:15)
[2020-11-08] MEDS ORDERED: INSULIN REGULAR, HUMAN 100 UNITS/1 ML IV ONE (11:15)
[2020-11-08] MEDS: INSULIN REGULAR, HUMAN 100 UNITS/1 ML SUB-Q SCH ×3 (11:34→22:27)
[2020-11-08] MEDS: ASPIRIN 325 MG TAB PO SCH (11:34)
[2020-11-08] MEDS: METOPROLOL TARTRATE 25 MG TAB PO SCH (11:35)
[2020-11-08] MEDS: ASCORBIC ACID 500 MG TAB PO SCH (11:35)
[2020-11-08] MEDS: CHOLECALCIFEROL (VIT D3) 1000 UNIT (25 mcg) TAB PO SCH (11:36)
[2020-11-08] MEDS: ZINC SULFATE 220 MG CAP PO SCH (11:37)
[2020-11-08] MEDS: PANTOPRAZOLE 40 MG INJ IV SCH ×2 (11:52→21:23)
--- NOTE | 2020-11-08 12:00 | Progress Note ---
Assessment and Plan Cultures: Sputum culture 11/03/2020 upper respiratory me[place]le Urine culture 11/04/2020 negative Blood culture 11/04/2020 no growth today Tracheal aspirate 11/04/2020 no growth today Assessment: 70-year-old male with history of hypertension, hypothyroidism, admitted on 10/23/2020 secondary to 2-day history of acute altered mental status with confusion and diminished cognition; noted to have a left MCA CVA and right leg acute thrombosis, now with worsening leukocytosis and on pressors: #Severe sepsis with septic shock: Not present on admission. Remains pressors but improving, leukocytosis is high 33K-->28.9K; etiology unclear ?UTI. Likely secondary to acute thrombus of the right lower extremity complicated with compartment syndrome +/- UTI. Chest x-ray without any obvious pneumonia. #UTI urinalysis with mild pyuria. #Acute CVA: MRI with acute infarction of the left MCA, repeat MRI with evolving changes. Neurology on board. #Acute right leg thromboses: Complicated with compartment syndrome s/p open thrombectomy of the right lower extremity and right lower extremity compartment syndrome fasciotomy on 11/02/2020. #STACEY: creat up. Renally adjust antibiotics. #Acute respiratory failure: Intubated overnight. Chest x-ray with pulmonary edema. Elevated BNP. CT chest shows small pericardial effusion, small bilateral pleural effusion, bilateral interstitial disease. SARS-CoV-2 PCR negative. #Cardiomyopathy: EF 35 to 40%. #Left atrial appendage thrombus: Patient was on heparin drip, currently on hold due to surgical wound bleeding #Anemia Recommendations: -Follow-up blood culture, urinalysis, respiratory cultures -Surgical consult for possible ischemic bowel. -Continue cefepime IV renally adjusted D6 -Remove Winkler catheter when possible Will follow. Suzan Campbell MD [facility] O: [phone] F: [phone] Subjective Date of service: 11/08/20 Principal diagnosis: CVA, Atrial Thrombus, Acute Limb Ischemia, ?GIB Interval history: Afebrile, white count elevated but improving. Imaging personally reviewed: CT abdomen pelvis: Possible ischemic bowel Objective - Exam Narrative Exam: General appearance: Sedated, intubated, currently alert Eyes: anicteric sclerae, moist conjunctivae; no lid-lag HENT: Normocephalic, Atraumatic; normal external ears, nares open, endotracheal tube and NG tube in place Neck: supple, tracheal midline, no JVD Lungs: Coarse breath sound bilaterally CV: RRR no murmur Abdomen: Firm, distended Extremities: Marked right leg edema with fasciotomy wounds bleeding Skin: Right groin surgical wound with clots Psych: Sedated Neuro: Sedated, nares open Winkler in place - Constitutional Vitals: Vital Signs Temp Pulse Resp BP Pulse Ox 98.2 F 64 10 L 118/62 100 11/08/20 08:00 11/08/20 11:35 11/08/20 11:30 11/08/20 11:30 11/08/20 11:30 Temperature -Last 24 Hours Temperature 98.2 F Temperature 98.7 F Temperature 98.1 F Temperature 98.0 F Temperature 98.1 F Temperature 98.0 F - Labs CBC & Chem 7: 11/08/20 04:39 11/08/20 04:39 Labs: Abnormal lab results 11/07/20 11/07/20 11/08/20 Range/Units 12:06 17:29 03:38 WBC (4.5-11.0) K/mm3 RBC (3.65-5.03) M/mm3 Hgb (11.8-15.2) gm/dl Hct (35.5-45.6) % RDW (13.2-15.2) % Seg Neuts % (Manual) (40.0-70.0) % Lymphocytes % (Manual) (13.4-35.0) % Seg Neutrophils # Man (1.8-7.7) K/mm3 Lymphocytes # (Manual) (1.2-5.4) K/mm3 ABG pH 7.494 H (7.320-7.450) POC ABG pO2 111.5 H (83-108) mmHg ABG Hemoglobin 6.7 L (12.0-17.5) ABG Potassium 4.9 H (3.40-4.50) mmol/L ABG Chloride 112.0 H (98-107) mmol/L ABG Glucose 153 H (65-95) mg/dL Potassium (3.6-5.0) mmol/L Chloride (98-107) mmol/L BUN (9-20) mg/dL Creatinine (0.8-1.3) mg/dL Glucose (75-100) mg/dL POC Glucose 144 H 117 H (70-105) mg/dL Calcium (8.4-10.2) mg/dL Arterial Blood Glucose 153 H (65-95) mg/dL Arterial Blood Ionized Calcium 4.5 L (4.6-5.3) mg/dL 11/08/20 11/08/20 11/08/20 Range/Units 04:39 04:39 11:13 WBC 23.1 H (4.5-11.0) K/mm3 RBC 2.37 L (3.65-5.03) M/mm3 Hgb 6.9 L (11.8-15.2) gm/dl Hct 20.8 L (35.5-45.6) % RDW 15.3 H (13.2-15.2) % Seg Neuts % (Manual) 95.5 H (40.0-70.0) % Lymphocytes % (Manual) 2.5 L (13.4-35.0) % Seg Neutrophils # Man 22.1 H (1.8-7.7) K/mm3 Lymphocytes # (Manual) 0.6 L (1.2-5.4) K/mm3 ABG pH (7.320-7.450) POC ABG pO2 (83-108) mmHg ABG Hemoglobin (12.0-17.5) ABG Potassium (3.40-4.50) mmol/L ABG Chloride (98-107) mmol/L ABG Glucose (65-95) mg/dL Potassium 5.1 H (3.6-5.0) mmol/L Chloride 111.3 H (98-107) mmol/L BUN 86 H (9-20) mg/dL Creatinine 2.5 H (0.8-1.3) mg/dL Glucose 142 H (75-100) mg/dL POC Glucose 125 H (70-105) mg/dL Calcium 7.6 L (8.4-10.2) mg/dL Arterial Blood Glucose (65-95) mg/dL Arterial Blood Ionized Calcium (4.6-5.3) mg/dL
--- NOTE | 2020-11-08 13:23 | Consultation ---
History of Present Illness Consult date: 11/08/20 - History of present illness History of present illness: 70-year-old male with past medical history of hypertension who presented to the emergency room with confusion and inability to walk without assistance on 10-23-20. Patient was found to have an acute CVA and treated according to code stroke protocol. He was also found to have symptoms consistent with a CHF exacerbation and bilateral pneumonia. On 11-02-20 vascular surgery was consulted for acute right lower extremity ischemia. The patient underwent emergent right lower extremity thrombectomy with fasciotomy. Patient had a KELLY which revealed left atrial appendage thrombus, mildly dilated left ventricle with mild left ventricular hypertrophy with moderate global left ventricular hypokinesis with EF of 40 to 45%. Patient was maintained on anticoagulation and hematology consult was obtained. Patient was started on argatroban per hematology recommendations. Infectious disease consult also obt ained and patient started on abx. On 11/03/2020 the patient decompensated with hypotension and worsening mental status and was therefore intubated and started on pressors. Patient's white blood count continued to rise over the last several days. Today is 23.1 from 28.9. It was 33.5 at its peak. The patient has remained afebrile. It was noted that the patient's abdomen continued to become distended. He was having emesis and feculent drainage from his NG tube. A CT scan abdomen and pelvis was obtained today. This was performed without contrast. This revealed pneumatosis of the small intestine and mild pneumatosis of the cecum. Surgical consultation was obtained. At the time of the consultation, patient is intubated and on a fentanyl drip. He is on Levophed drip at 4 mics per minute. Past History Past Medical History: hypertension, hypothyroidism, other (See HPI) Past Surgical History: thyroidectomy Social history: single. denies: smoking, alcohol abuse Family history: hypertension Medications and Allergies Allergies Allergy/AdvReac Type Severity Reaction Status Date / Time No Known Allergies Allergy Unverified 10/23/20 12:44 Home Medications Medication Instructions Recorded Confirmed Last Taken Type Levothyroxine Sodium 150 mcg PO DAILY 10/31/20 10/31/20 Unknown History [Levothyroxine] carvediloL [Coreg] 6.25 mg PO BID 10/31/20 10/31/20 Unknown History lisinopriL [Lisinopril] 10 mg PO DAILY 10/31/20 10/31/20 Unknown History Active Meds: Active Medications Acetaminophen (Acetaminophen 325 Mg Tab) 650 mg PO Q4H PRN PRN Reason: Pain, Mild (1-3) Lipase/Protease/Amylase (Lipase 10,500/Protease 25,000/Amylase 43,750 (Units) Dr Fernández) 1 each FEEDTUBE PRN PRN PRN Reason: For Clogged Feeding Tube Ascorbic Acid (Ascorbic Acid 500 Mg Tab) 500 mg PO BID [facility] Last Admin: 11/08/20 11:35 Dose: Not Given Documented by: Aspirin (Aspirin 325 Mg Tab) 325 mg PO QDAY [facility] Last Admin: 11/08/20 11:34 Dose: Not Given Documented by: Atorvastatin Calcium (Atorvastatin 40 Mg Tab) 40 mg PO QHS [facility] Last Admin: 11/07/20 22:08 Dose: 40 mg Documented by: Bisacodyl (Bisacodyl 10 Mg Rect Supp) 10 mg CO QDAY PRN PRN Reason: Constipation Last Admin: 11/07/20 09:56 Dose: 10 mg Documented by: Cholecalciferol (Cholecalciferol (Vit D3) 1000 Unit (25 Mcg) Tab) 1,000 unit PO QDAY [facility] Last Admin: 11/08/20 11:36 Dose: Not Given Documented by: Dextrose (Dextrose 50% In Water (25gm) 50 Ml Syringe) 50 ml IV Q30MIN PRN; Protocol PRN Reason: Hypoglycemia Docusate Sodium (Docusate Sodium 100 Mg/10 Ml Oral Liqd) 100 mg FEEDTUBE BID [facility] Last Admin: 11/08/20 11:35 Dose: Not Given Documented by: Fentanyl (Fentanyl 100 Mcg/2 Ml Inj) 50 mcg IV Q10MIN PRN PRN Reason: ANALGESIA Hydrophilic Ointment (Lip Therapy Vaseline) 1 applic TP Q2HR PRN PRN Reason: Dry Lips Sodium Chloride (Nacl 0.9% 500 Ml) 500 mls @ 125 mls/hr IV DIRECT [facility] Last Admin: 11/04/20 05:06 Dose: 125 mls/hr Documented by: Fentanyl Citrate (Fentanyl Drip Premix) 2,000 mcg in 100 mls @ 4.86 mls/hr IV TITR [facility]; Protocol Last Titration: 11/08/20 08:30 Dose: 1 mcg/kg/hr, 4.86 mls/hr Documented by: NORepinephrine/NS 8 MG-250 ML (Norepinephrine/Ns 8 Mg-250 Ml (Double Conc)) 8 mg in 250 mls @ 3.75 mls/hr IV TITRATE [facility]; Protocol Last Titration: 11/08/20 08:30 Dose: Infused Documented by: Cefepime HCl (Cefepime/Ns 2 Gm/100 Ml) 2 gm in 100 mls @ 200 mls/hr IV Q24H ALEX; Protocol Sodium Chloride (Nacl 0.9% 500 Ml) 500 mls @ 0 mls/hr IV ONCE NR Stop: 11/08/20 23:59 Last Admin: 11/08/20 12:38 Dose: 50 mls/hr Documented by: Dextrose (D5w) 1,000 mls @ 42 mls/hr IV DIRECT ALEX Insulin Human Regular (Insulin Regular, Human 100 Units/1 Ml) 0 units SUB-Q Q6H [facility]; Protocol Last Admin: 11/08/20 11:34 Dose: Not Given Documented by: Lactulose (Lactulose 20 Gm/30 Ml Oral Liqd) 20 gm PO QDAY PRN PRN Reason: CONSTIPATION Magnesium Hydroxide (Magnesium Hydroxide (Mom) Oral Liqd Udc) 30 ml PO Q4H PRN PRN Reason: Constipation Last Admin: 11/07/20 09:57 Dose: 30 ml Documented by: Metoclopramide HCl (Metoclopramide 10 Mg Tab) 10 mg PO Q6H PRN PRN Reason: Nausea And Vomiting Metoprolol Tartrate (Metoprolol Tartrate 25 Mg Tab) 6.25 mg PO BID [facility] Last Admin: 11/08/20 11:35 Dose: Not Given Documented by: Multi-Ingred Cream/Lotion/Oil/Oint (Mineral Oil/Petrolatum, White Ophth Oint 3.5 Gm) 1 applic OU Q4HR PRN PRN Reason: Dry Eye(s) Ondansetron HCl (Ondansetron 4 Mg/2 Ml Inj) 4 mg IV Q8H PRN PRN Reason: Nausea And Vomiting Last Admin: 11/07/20 23:09 Dose: 4 mg Documented by: Oxycodone/Acetaminophen (Oxycodone /Acetaminophen 5-325mg Tab) 1 tab PO Q6H PRN PRN Reason: Pain, Moderate (4-6) Pantoprazole Sodium (Pantoprazole 40 Mg Inj) 40 mg IV BID [facility] Last Admin: 11/08/20 11:52 Dose: 40 mg Documented by: Promethazine HCl (Promethazine 25 Mg Rect Supp) 25 mg CO Q6H PRN PRN Reason: Nausea And Vomiting Simple Syrup (Simple Syrup 15 Ml) 15 ml FEEDTUBE PRN PRN PRN Reason: Hypoglycemia Simple Syrup (Simple Syrup 15 Ml) 30 ml FEEDTUBE PRN PRN PRN Reason: Hypoglycemia Sodium Bicarbonate (Sodium Bicarbonate 325 Mg Tab) 325 mg FEEDTUBE PRN PRN PRN Reason: For Clogged Feeding Tube Sodium Chloride (Sodium Chloride 0.9% 10 Ml Flush Syringe) 10 ml IV PRN PRN PRN Reason: LINE FLUSH Last Admin: 11/04/20 21:25 Dose: 10 ml Documented by: Zinc Sulfate (Zinc Sulfate 220 Mg Cap) 220 mg PO BID [facility] Last Admin: 11/08/20 11:37 Dose: Not Given Documented by: Review of Systems ROS unobtainable: due to endotracheal tube, due to mental status Exam Vital Signs Temp Pulse Resp BP Pulse Ox 97.7 F 82 18 168/115 98 10/23/20 12:47 10/23/20 12:47 10/23/20 12:47 10/23/20 12:47 10/23/20 12:47 Narrative exam: Gen.: On vent, sedated. Opens eyes spontaneously. Does not follow commands. ENT: Trachea midline. No lymphadenopathy. No scleral icterus or conjunctival pallor ETT present. NGT with bilious drainage CV: S1, S2 present Respiratory: No audible wheezes Abdomen: Soft, distended. Pt does not grimace during palpation. Generalized edema. No rebound, rigidity, guarding Extremities: +Edema : [place] Results - Labs 11/08/20 04:39 11/08/20 04:39 Abnormal lab results 11/07/20 11/07/20 11/08/20 Range/Units 12:06 17:29 03:38 WBC (4.5-11.0) K/mm3 RBC (3.65-5.03) M/mm3 Hgb (11.8-15.2) gm/dl Hct (35.5-45.6) % RDW (13.2-15.2) % Seg Neuts % (Manual) (40.0-70.0) % Lymphocytes % (Manual) (13.4-35.0) % Seg Neutrophils # Man (1.8-7.7) K/mm3 Lymphocytes # (Manual) (1.2-5.4) K/mm3 ABG pH 7.494 H (7.320-7.450) POC ABG pO2 111.5 H (83-108) mmHg ABG Hemoglobin 6.7 L (12.0-17.5) ABG Potassium 4.9 H (3.40-4.50) mmol/L ABG Chloride 112.0 H (98-107) mmol/L ABG Glucose 153 H (65-95) mg/dL Potassium (3.6-5.0) mmol/L Chloride (98-107) mmol/L BUN (9-20) mg/dL Creatinine (0.8-1.3) mg/dL Glucose (75-100) mg/dL POC Glucose 144 H 117 H (70-105) mg/dL Calcium (8.4-10.2) mg/dL Arterial Blood Glucose 153 H (65-95) mg/dL Arterial Blood Ionized Calcium 4.5 L (4.6-5.3) mg/dL Crossmatch 11/08/20 11/08/20 11/08/20 Range/Units 04:39 04:39 11:13 WBC 23.1 H (4.5-11.0) K/mm3 RBC 2.37 L (3.65-5.03) M/mm3 Hgb 6.9 L (11.8-15.2) gm/dl Hct 20.8 L (35.5-45.6) % RDW 15.3 H (13.2-15.2) % Seg Neuts % (Manual) 95.5 H (40.0-70.0) % Lymphocytes % (Manual) 2.5 L (13.4-35.0) % Seg Neutrophils # Man 22.1 H (1.8-7.7) K/mm3 Lymphocytes # (Manual) 0.6 L (1.2-5.4) K/mm3 ABG pH (7.320-7.450) POC ABG pO2 (83-108) mmHg ABG Hemoglobin (12.0-17.5) ABG Potassium (3.40-4.50) mmol/L ABG Chloride (98-107) mmol/L ABG Glucose (65-95) mg/dL Potassium 5.1 H (3.6-5.0) mmol/L Chloride 111.3 H (98-107) mmol/L BUN 86 H (9-20) mg/dL Creatinine 2.5 H (0.8-1.3) mg/dL Glucose 142 H (75-100) mg/dL POC Glucose 125 H (70-105) mg/dL Calcium 7.6 L (8.4-10.2) mg/dL Arterial Blood Glucose (65-95) mg/dL Arterial Blood Ionized Calcium (4.6-5.3) mg/dL Crossmatch 11/08/20 Range/Units 11:15 WBC (4.5-11.0) K/mm3 RBC (3.65-5.03) M/mm3 Hgb (11.8-15.2) gm/dl Hct (35.5-45.6) % RDW (13.2-15.2) % Seg Neuts % (Manual) (40.0-70.0) % Lymphocytes % (Manual) (13.4-35.0) % Seg Neutrophils # Man (1.8-7.7) K/mm3 Lymphocytes # (Manual) (1.2-5.4) K/mm3 ABG pH (7.320-7.450) POC ABG pO2 (83-108) mmHg ABG Hemoglobin (12.0-17.5) ABG Potassium (3.40-4.50) mmol/L ABG Chloride (98-107) mmol/L ABG Glucose (65-95) mg/dL Potassium (3.6-5.0) mmol/L Chloride (98-107) mmol/L BUN (9-20) mg/dL Creatinine (0.8-1.3) mg/dL Glucose (75-100) mg/dL POC Glucose (70-105) mg/dL Calcium (8.4-10.2) mg/dL Arterial Blood Glucose (65-95) mg/dL Arterial Blood Ionized Calcium (4.6-5.3) mg/dL Crossmatch See Detail Diabetes panel 11/08/20 Range/Units 04:39 Sodium 144 (137-145) mmol/L Potassium 5.1 H (3.6-5.0) mmol/L Chloride 111.3 H (98-107) mmol/L Carbon Dioxide 28 (22-30) mmol/L BUN 86 H (9-20) mg/dL Creatinine 2.5 H (0.8-1.3) mg/dL Glucose 142 H (75-100) mg/dL Calcium 7.6 L (8.4-10.2) mg/dL Calcium panel 11/08/20 Range/Units 04:39 Calcium 7.6 L (8.4-10.2) mg/dL Pituitary panel 11/08/20 Range/Units 04:39 Sodium 144 (137-145) mmol/L Potassium 5.1 H (3.6-5.0) mmol/L Chloride 111.3 H (98-107) mmol/L Carbon Dioxide 28 (22-30) mmol/L BUN 86 H (9-20) mg/dL Creatinine 2.5 H (0.8-1.3) mg/dL Glucose 142 H (75-100) mg/dL Calcium 7.6 L (8.4-10.2) mg/dL Adrenal panel 11/08/20 Range/Units 04:39 Sodium 144 (137-145) mmol/L Potassium 5.1 H (3.6-5.0) mmol/L Chloride 111.3 H (98-107) mmol/L Carbon Dioxide 28 (22-30) mmol/L BUN 86 H (9-20) mg/dL Creatinine 2.5 H (0.8-1.3) mg/dL Glucose 142 H (75-100) mg/dL Calcium 7.6 L (8.4-10.2) mg/dL - Imaging Chest x-ray: report reviewed, image reviewed Abdominal x-ray: report reviewed, image reviewed CT scan - abdomen: report reviewed, image reviewed CT scan - pelvis: report reviewed, image reviewed Assessment and Plan 70-year-old male with 1. 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 Vent dependent respiratory failure 3. septic shock 4. MCA CVA 5. acute limb ischemia s/p right lower extremity revascularization and fasciotom ies Plan: 1. neuro - continue fent gtt. Neuro on board for acute CVA 2. CV - on levo gtt@4mcg. H/H 6.8 - transfuse 1 unit prbc stat and will obtain additional units on hold. Argatroban gtt has been on hold since yesterday 2/2 possible GIB. Management of LE surgical wounds per vascular surgery 3. Resp - vent management per ICU team 4. GI - NGT to LIWS, NPO, IVF. GI ppx. Pneumatosis on CT scan likely represents ischemic/infarcted bowel 2/2 embolic event - will need emergent exlap with damage control, resection of infarcted bowel. Discussed this in detail with patient's son/POA Naz Summers: [phone] and consent obtained. Informed son that patient will likely need additional surgery to reevaluate the intestines for further ischemia 24-48 hours after initial procedure. Explained high risk nature of patient's condition. Risks, benefits, alternatives to surgery discussed. NESS - zenia for strict I/Os Endo - strict glucose control ID - abx per ID service Heme - hematology on board. Hope to resume anticoagulation if patient's Hb stabilizes. He is at very high risk for additional thrombotic/embolic events FEN- BMP daily, replace lytes as needed Plan to proceed to OR for emergent exlap, bowel resection, likely temporary closure of the abdomen with return to OR in 24-48 hours for reevaluation of bowel viability. Discussed with Dr. Dillard, Dr. Galvez, and patient's RN Thank you for this consultation. Please call with any questions or concerns. Evaluation and treatment of this patient was during the time of the national and state emergency arising from COVID19 coronavirus pandemic. Treatment and procedures performed meet the current and available best practice and guidelines for patient during the COVID pandemic.
[2020-11-08] MEDS ORDERED: ROCURONIUM 50 MG/5 ML INJ IV ONE (13:36)
[2020-11-08] MEDS: NORepinephrine/NS 8 MG-250 ML 8 MG/250 ML INFUS..BTL IV SCH (14:00)
--- NOTE | 2020-11-08 14:43 | Anesthesia Day of Surgery ---
Anesthesia Day of Surgery - Day of Surgery Patient Examined: Yes Patient H&P Reviewed: Yes Patient is NPO: Yes Beta Blockers: No (On levophed) Cardiac Clearance: Yes
[2020-11-08] MEDS ORDERED: SODIUM CHLORIDE 0.9% 1000 ML 1,000 ML ONE (14:44)
[2020-11-08] MEDS ORDERED: SODIUM CHLORIDE 0.9% IRR 1,500 ML BOTTLE IR ONE (15:03)
--- NOTE | 2020-11-08 15:05 | Progress Note ---
Assessment and Plan Acute hypoxemic respiratory failure. Acute embolic cerebrovascular accident. Acute limb ischemia, status post thrombectomy. Left atrial appendage. Acute congestive heart failure exacerbation. Obesity. History of hypothyroidism. Leukocytosis. Acute encephalopathy, toxic metabolic - to OR for Ex-lap - GI evaluation pending - continue accuchecks q6h - continue to wean Levophed for target MAP > 65 mmHg - continue to hold anticoagulation till cleared by surgery / G.I. team - complete antiinfective's per ID recommendation - azotemia per nephrology team - continue care as below otherwise; - continue to wean supplemental oxygen for target O2 sat's > 90% acutely - VAP bundle addressed - continue lung protective strategies - continue bronchodilators with pulmonary hygiene per RT - wean per pulmonary driven protocols otherwise - avoid nephrotoxins, renally dose all medications - continue Daily SAT and SBT assessment as tolerated - continue accuchecks with glycemic control per SSI (While critically ill target blood glucose of 140-180 mg/dL; avoid hypoglycemia) - sedation prn for target RASS 0 to -1 - continue to avoid benzodiazepine's, reduce the possibility of delirium - complete AB's per ID rec's - prn analgesia per CPOT score - Maintenance of sleep-wake cycle, avoid delirium - continue enteral nutritional support at goal rate as tolerated - G.I. & VTE prophylaxis - PT/OT/ROM exercises - continue mobility protocols for pressure ulcer prophylaxis - Monitor hemodynamics closely - continue other care per attending / other consultants - discharge planning ongoing concurrently .... Re-evaluate in am & prn CONDITION: CRITICAL PROGNOSIS: GUARDED CODE STATUS: FULL CODE The high probability of a clinically significant, sudden or life-threatening deterioration of the [respiratory, cardiovascular, renal & neurologic] system(s) required my full and direct attention, intervention and personal management. The aggregate critical care time was [32] minutes without overlap. Time includes spent on; [x] Data Review and interpretation [x] Patient assessment and monitoring of vital signs [x] Documentation [x] Medication orders and management Subjective Date of service: 11/08/20 Principal diagnosis: CVA, Atrial Thrombus, Acute Limb Ischemia, ?GIB Interval history: Patient is seen today for: Acute hypoxemic respiratory failure; Acute embolic CVA; Acute limb ischemia; Left atrial appendage; Acute CHF; Obesity; Acute encephalopathy, toxic metabolic Seen and examined at bedside; 24hour events reviewed; nursing and respiratory care staff consulted; no adverse overnight events reported to me; resting peacefully in bed; AMS is persistent; exam and imaging consistent with bowel and to go to OR; no gross bleeding otherwise but anticoagulation remains on hold Objective Vital Signs - 12hr 11/08/20 11/08/20 11/08/20 00:31 00:36 00:45 Temperature Pulse Rate 65 68 66 Respiratory 16 14 Rate Blood Pressure 89/57 89/57 94/56 O2 Sat by Pulse 100 100 100 Oximetry 11/08/20 11/08/20 11/08/20 01:00 01:15 01:30 Temperature Pulse Rate 66 67 65 Respiratory 13 13 13 Rate Blood Pressure 94/56 106/57 97/55 O2 Sat by Pulse 100 100 100 Oximetry 11/08/20 11/08/20 11/08/20 01:45 02:00 02:15 Temperature Pulse Rate 66 67 65 Respiratory 14 13 12 Rate Blood Pressure 96/58 100/60 95/56 O2 Sat by Pulse 100 100 100 Oximetry 11/08/20 11/08/20 11/08/20 02:30 02:45 03:00 Temperature Pulse Rate 65 66 65 Respiratory 13 14 12 Rate Blood Pressure 93/57 99/56 95/53 O2 Sat by Pulse 100 100 Oximetry 11/08/20 11/08/20 11/08/20 03:15 03:30 03:45 Temperature Pulse Rate 64 66 61 Respiratory 13 13 12 Rate Blood Pressure 95/52 95/52 73/45 O2 Sat by Pulse 100 81 L Oximetry 11/08/20 11/08/20 11/08/20 04:00 04:16 04:30 Temperature 98.7 F Pulse Rate 71 71 71 Respiratory 13 15 15 Rate Blood Pressure 123/65 111/55 110/62 O2 Sat by Pulse 86 100 100 Oximetry 11/08/20 11/08/20 11/08/20 04:45 05:00 05:15 Temperature Pulse Rate 68 69 69 Respiratory 13 12 12 Rate Blood Pressure 104/55 107/60 104/62 O2 Sat by Pulse 100 100 100 Oximetry 11/08/20 11/08/20 11/08/20 05:30 05:45 06:00 Temperature Pulse Rate 68 68 68 Respiratory 14 13 12 Rate Blood Pressure 106/61 91/69 105/59 O2 Sat by Pulse 100 100 100 Oximetry 11/08/20 11/08/20 11/08/20 06:15 06:30 06:45 Temperature Pulse Rate 67 65 63 Respiratory 12 12 12 Rate Blood Pressure 99/56 94/55 93/53 O2 Sat by Pulse 100 100 100 Oximetry 11/08/20 11/08/20 11/08/20 07:00 07:15 07:30 Temperature Pulse Rate 69 68 68 Respiratory 10 L 13 11 L Rate Blood Pressure 99/60 103/61 102/63 O2 Sat by Pulse 100 100 78 L Oximetry 11/08/20 11/08/20 11/08/20 07:35 07:45 08:00 Temperature 98.2 F Pulse Rate 68 68 69 Respiratory 14 14 Rate Blood Pressure 111/59 111/59 108/61 O2 Sat by Pulse 100 100 95 Oximetry 11/08/20 11/08/20 11/08/20 08:16 08:30 08:45 Temperature Pulse Rate 66 66 67 Respiratory 8 L 8 L 7 L Rate Blood Pressure 82/49 76/49 91/52 O2 Sat by Pulse 100 100 100 Oximetry 11/08/20 11/08/20 11/08/20 09:00 09:15 09:30 Temperature Pulse Rate 77 74 75 Respiratory 10 L 9 L 12 Rate Blood Pressure 91/52 111/66 105/61 O2 Sat by Pulse 100 100 100 Oximetry 11/08/20 11/08/20 11/08/20 09:45 10:00 10:14 Temperature Pulse Rate 73 69 80 Respiratory 15 10 L 13 Rate Blood Pressure 117/66 118/62 O2 Sat by Pulse 98 100 Oximetry 11/08/20 11/08/20 11/08/20 10:16 10:30 10:45 Temperature Pulse Rate 76 75 72 Respiratory 12 13 11 L Rate Blood Pressure 110/71 117/65 O2 Sat by Pulse 100 100 Oximetry 11/08/20 11/08/20 11/08/20 11:00 11:15 11:30 Temperature Pulse Rate 69 71 70 Respiratory 8 L 13 10 L Rate Blood Pressure 112/58 118/60 118/62 O2 Sat by Pulse 100 100 100 Oximetry 11/08/20 11:35 Temperature Pulse Rate 64 Respiratory Rate Blood Pressure O2 Sat by Pulse Oximetry Constitutional: appears uncomfortable, other (elderly male with mildly increased respiratory effort at rest on MVS) Eyes: non-icteric ENT: oropharynx moist, other (ETT 25 cm DALIA) Neck: supple, no lymphadenopathy, no JVD Effort: mildly labored Ascultation: Bilateral: diminished breath sounds, rhonchi Percussion: Bilateral: not dull Cardiovascular: regular rate and rhythm Gastrointestinal: hypoactive bowel sounds, non-tender, other (distended) Integumentary: normal Extremities: no cyanosis, pink and warm, edema (RLExt), other (RLExt fasciotomy) Neurologic: pupils equal and round, unable to assess, other (Right Hemiparesis) Psychiatric: other (encephalopathic) CBC and BMP: 11/08/20 04:39 11/08/20 04:39 ABG, PT/INR, D-dimer: ABG ABG pH 7.494 (7.320-7.450) H 11/08/20 03:38 POC ABG pCO2 36.6 mmHg (32.0-48.0) 11/08/20 03:38 POC ABG pO2 111.5 mmHg (83-108) H 11/08/20 03:38 POC ABG HCO3 27.5 11/08/20 03:38 ABG O2 Saturation 98.4 (0-100) 11/08/20 03:38 PT/INR, D-dimer PT 16.2 Sec. (12.2-14.9) H 11/02/20 19:55 INR 1.30 (0.87-1.13) H 11/02/20 19:55 D-Dimer 4139.61 ng/mlDDU (0-234) H 10/23/20 18:23 Abnormal lab findings: Abnormal Labs 10/23/20 10/23/20 10/23/20 13:32 18:23 18:23 WBC RBC Hgb Hct RDW Seg Neuts % (Manual) Lymphocytes % (Manual) Seg Neutrophils # Man Lymphocytes # (Manual) Monocytes # (Manual) PT INR APTT D-Dimer 4139.61 H Heparin Anti-Xa Level ABG pH POC ABG pCO2 POC ABG pO2 ABG Hemoglobin ABG Oxyhemoglobin ABG Sodium ABG Potassium ABG Chloride ABG Glucose Carboxyhemoglobin Sodium Potassium Chloride 109.1 H Carbon Dioxide BUN Creatinine Glucose POC Glucose Lactic Acid Calcium Lactate Dehydrogenase 334 H C-Reactive Protein 2.50 H NT-Pro-B Natriuret Pep 5806 H Total Protein Albumin TSH Arterial Blood Glucose Arterial Blood Ionized Calcium Urine WBC (Auto) Crossmatch 10/23/20 10/23/20 10/26/20 18:23 18:23 05:34 WBC RBC Hgb Hct RDW Seg Neuts % (Manual) Lymphocytes % (Manual) Seg Neutrophils # Man Lymphocytes # (Manual) Monocytes # (Manual) PT INR APTT D-Dimer Heparin Anti-Xa Level ABG pH POC ABG pCO2 POC ABG pO2 ABG Hemoglobin ABG Oxyhemoglobin ABG Sodium ABG Potassium ABG Chloride ABG Glucose Carboxyhemoglobin Sodium Potassium Chloride Carbon Dioxide BUN 30 H Creatinine Glucose 120 H POC Glucose Lactic Acid Calcium Lactate Dehydrogenase C-Reactive Protein NT-Pro-B Natriuret Pep Total Protein Albumin TSH 7.100 H 6.540 H Arterial Blood Glucose Arterial Blood Ionized Calcium Urine WBC (Auto) Crossmatch 10/27/20 10/28/20 11/02/20 08:55 05:25 07:17 WBC 15.8 H RBC Hgb Hct RDW Seg Neuts % (Manual) Lymphocytes % (Manual) Seg Neutrophils # Man Lymphocytes # (Manual) Monocytes # (Manual) PT INR APTT D-Dimer Heparin Anti-Xa Level ABG pH POC ABG pCO2 POC ABG pO2 ABG Hemoglobin ABG Oxyhemoglobin ABG Sodium ABG Potassium ABG Chloride ABG Glucose Carboxyhemoglobin Sodium Potassium Chloride Carbon Dioxide BUN 28 H 28 H Creatinine Glucose 124 H 110 H POC Glucose Lactic Acid Calcium 8.2 L Lactate Dehydrogenase C-Reactive Protein NT-Pro-B Natriuret Pep Total Protein Albumin TSH Arterial Blood Glucose Arterial Blood Ionized Calcium Urine WBC (Auto) Crossmatch 11/02/20 11/02/20 11/02/20 07:17 15:00 15:06 WBC RBC Hgb 15.7 H Hct 47.5 H D RDW Seg Neuts % (Manual) Lymphocytes % (Manual) Seg Neutrophils # Man Lymphocytes # (Manual) Monocytes # (Manual) PT INR APTT D-Dimer Heparin Anti-Xa Level ABG pH POC ABG pCO2 POC ABG pO2 ABG Hemoglobin ABG Oxyhemoglobin ABG Sodium ABG Potassium ABG Chloride ABG Glucose Carboxyhemoglobin Sodium 136 L Potassium Chloride Carbon Dioxide BUN 33 H Creatinine Glucose 107 H POC Glucose Lactic Acid Calcium 7.9 L Lactate Dehydrogenase C-Reactive Protein NT-Pro-B Natriuret Pep Total Protein Albumin TSH Arterial Blood Glucose Arterial Blood Ionized Calcium Urine WBC (Auto) Crossmatch See Detail 11/02/20 11/02/20 11/02/20 19:55 21:25 22:28 WBC 21.8 H RBC Hgb Hct RDW Seg Neuts % (Manual) Lymphocytes % (Manual) Seg Neutrophils # Man Lymphocytes # (Manual) Monocytes # (Manual) PT 16.2 H INR 1.30 H APTT 106.0 H* D-Dimer Heparin Anti-Xa Level 1.63 H ABG pH POC ABG pCO2 POC ABG pO2 ABG Hemoglobin ABG Oxyhemoglobin ABG Sodium ABG Potassium ABG Chloride ABG Glucose Carboxyhemoglobin Sodium Potassium Chloride Carbon Dioxide BUN Creatinine Glucose POC Glucose Lactic Acid Calcium Lactate Dehydrogenase C-Reactive Protein NT-Pro-B Natriuret Pep Total Protein Albumin TSH Arterial Blood Glucose Arterial Blood Ionized Calcium Urine WBC (Auto) Crossmatch 11/03/20 11/03/20 11/03/20 05:47 13:20 13:20 WBC 29.0 H RBC Hgb 10.4 L Hct 31.2 L D RDW Seg Neuts % (Manual) Lymphocytes % (Manual) Seg Neutrophils # Man Lymphocytes # (Manual) Monocytes # (Manual) PT INR APTT D-Dimer Heparin Anti-Xa Level < 0.10 L ABG pH POC ABG pCO2 POC ABG pO2 ABG Hemoglobin ABG Oxyhemoglobin ABG Sodium ABG Potassium ABG Chloride ABG Glucose Carboxyhemoglobin Sodium 134 L Potassium 5.9 H D Chloride Carbon Dioxide 17 L D BUN 47 H Creatinine 2.2 H D Glucose 188 H POC Glucose Lactic Acid Calcium 7.6 L Lactate Dehydrogenase C-Reactive Protein NT-Pro-B Natriuret Pep Total Protein Albumin TSH Arterial Blood Glucose Arterial Blood Ionized Calcium Urine WBC (Auto) Crossmatch 11/03/20 11/03/20 11/03/20 13:20 16:11 20:01 WBC RBC Hgb Hct RDW Seg Neuts % (Manual) Lymphocytes % (Manual) Seg Neutrophils # Man Lymphocytes # (Manual) Monocytes # (Manual) PT INR APTT D-Dimer Heparin Anti-Xa Level ABG pH 7.289 L POC ABG pCO2 31.8 L POC ABG pO2 156.7 H 119.6 H ABG Hemoglobin 10.7 L 9.7 L ABG Oxyhemoglobin 98.2 H ABG Sodium 127.7 L 129.5 L ABG Potassium 5.8 H 5.9 H ABG Chloride ABG Glucose 190 H 174 H Carboxyhemoglobin 0.3 L 0.1 L Sodium Potassium Chloride Carbon Dioxide BUN Creatinine Glucose POC Glucose Lactic Acid 7.40 H* Calcium Lactate Dehydrogenase C-Reactive Protein NT-Pro-B Natriuret Pep Total Protein Albumin TSH Arterial Blood Glucose 190 H 174 H Arterial Blood Ionized Calcium 4.3 L 4.3 L Urine WBC (Auto) Crossmatch 11/03/20 11/04/20 11/04/20 21:14 04:00 04:00 WBC 32.8 H RBC Hgb 11.7 L Hct 35.0 L RDW Seg Neuts % (Manual) 82.0 H Lymphocytes % (Manual) 10.0 L Seg Neutrophils # Man 26.9 H Lymphocytes # (Manual) Monocytes # (Manual) 2.3 H PT INR APTT D-Dimer Heparin Anti-Xa Level 0.73 H ABG pH POC ABG pCO2 POC ABG pO2 ABG Hemoglobin ABG Oxyhemoglobin ABG Sodium ABG Potassium ABG Chloride ABG Glucose Carboxyhemoglobin Sodium 133 L Potassium 5.7 H Chloride Carbon Dioxide 20 L BUN 57 H Creatinine 2.3 H Glucose 129 H POC Glucose Lactic Acid Calcium 7.2 L Lactate Dehydrogenase C-Reactive Protein NT-Pro-B Natriuret Pep Total Protein Albumin TSH Arterial Blood Glucose Arterial Blood Ionized Calcium Urine WBC (Auto) Crossmatch 11/04/20 11/04/20 11/04/20 07:57 11:00 11:55 WBC RBC Hgb Hct RDW Seg Neuts % (Manual) Lymphocytes % (Manual) Seg Neutrophils # Man Lymphocytes # (Manual) Monocytes # (Manual) PT INR APTT D-Dimer Heparin Anti-Xa Level ABG pH POC ABG pCO2 POC ABG pO2 132.7 H ABG Hemoglobin 11.5 L ABG Oxyhemoglobin ABG Sodium 130.6 L ABG Potassium 5.3 H ABG Chloride ABG Glucose 145 H Carboxyhemoglobin 0.2 L Sodium Potassium Chloride Carbon Dioxide BUN Creatinine Glucose POC Glucose 110 H Lactic Acid Calcium Lactate Dehydrogenase C-Reactive Protein NT-Pro-B Natriuret Pep Total Protein Albumin TSH Arterial Blood Glucose 145 H Arterial Blood Ionized Calcium 4.4 L Urine WBC (Auto) 19.0 H Crossmatch 11/04/20 11/04/20 11/04/20 13:01 13:01 17:40 WBC RBC Hgb Hct RDW Seg Neuts % (Manual) Lymphocytes % (Manual) Seg Neutrophils # Man Lymphocytes # (Manual) Monocytes # (Manual) PT INR APTT D-Dimer Heparin Anti-Xa Level 0.26 L ABG pH POC ABG pCO2 POC ABG pO2 ABG Hemoglobin ABG Oxyhemoglobin ABG Sodium ABG Potassium ABG Chloride ABG Glucose Carboxyhemoglobin Sodium Potassium Chloride Carbon Dioxide BUN Creatinine Glucose POC Glucose 135 H Lactic Acid Calcium Lactate Dehydrogenase C-Reactive Protein 8.30 H NT-Pro-B Natriuret Pep Total Protein Albumin TSH Arterial Blood Glucose Arterial Blood Ionized Calcium Urine WBC (Auto) Crossmatch 11/04/20 11/04/20 11/05/20 19:55 23:20 00:53 WBC RBC Hgb 9.7 L 9.0 L Hct 28.3 L D 26.0 L RDW Seg Neuts % (Manual) Lymphocytes % (Manual) Seg Neutrophils # Man Lymphocytes # (Manual) Monocytes # (Manual) PT INR APTT D-Dimer Heparin Anti-Xa Level ABG pH POC ABG pCO2 POC ABG pO2 ABG Hemoglobin ABG Oxyhemoglobin ABG Sodium ABG Potassium ABG Chloride ABG Glucose Carboxyhemoglobin Sodium Potassium Chloride Carbon Dioxide BUN Creatinine Glucose POC Glucose 143 H Lactic Acid Calcium Lactate Dehydrogenase C-Reactive Protein NT-Pro-B Natriuret Pep Total Protein Albumin TSH Arterial Blood Glucose Arterial Blood Ionized Calcium Urine WBC (Auto) Crossmatch 11/05/20 11/05/20 11/05/20 02:16 03:16 03:37 WBC 33.5 H RBC 3.01 L Hgb 8.8 L Hct 25.6 L RDW Seg Neuts % (Manual) 93.5 H Lymphocytes % (Manual) 3.5 L Seg Neutrophils # Man 31.3 H Lymphocytes # (Manual) Monocytes # (Manual) 1.0 H PT INR APTT D-Dimer Heparin Anti-Xa Level 0.99 H ABG pH POC ABG pCO2 POC ABG pO2 131.3 H ABG Hemoglobin 9.2 L ABG Oxyhemoglobin ABG Sodium 131.6 L ABG Potassium ABG Chloride 110.0 H ABG Glucose 168 H Carboxyhemoglobin 0.3 L Sodium Potassium Chloride Carbon Dioxide BUN Creatinine Glucose POC Glucose Lactic Acid Calcium Lactate Dehydrogenase C-Reactive Protein NT-Pro-B Natriuret Pep Total Protein Albumin TSH Arterial Blood Glucose 168 H Arterial Blood Ionized Calcium 4.4 L Urine WBC (Auto) Crossmatch 11/05/20 11/05/20 11/05/20 03:37 05:19 18:18 WBC RBC Hgb Hct RDW Seg Neuts % (Manual) Lymphocytes % (Manual) Seg Neutrophils # Man Lymphocytes # (Manual) Monocytes # (Manual) PT INR APTT D-Dimer Heparin Anti-Xa Level ABG pH POC ABG pCO2 POC ABG pO2 ABG Hemoglobin ABG Oxyhemoglobin ABG Sodium ABG Potassium ABG Chloride ABG Glucose Carboxyhemoglobin Sodium Potassium Chloride 109.5 H Carbon Dioxide BUN 55 H Creatinine 2.1 H Glucose 157 H POC Glucose 142 H 124 H Lactic Acid Calcium 7.0 L Lactate Dehydrogenase C-Reactive Protein NT-Pro-B Natriuret Pep Total Protein Albumin TSH Arterial Blood Glucose Arterial Blood Ionized Calcium Urine WBC (Auto) Crossmatch 11/05/20 11/05/20 11/05/20 19:00 21:20 23:30 WBC RBC Hgb Hct RDW Seg Neuts % (Manual) Lymphocytes % (Manual) Seg Neutrophils # Man Lymphocytes # (Manual) Monocytes # (Manual) PT INR APTT 63.8 H* D-Dimer Heparin Anti-Xa Level ABG pH POC ABG pCO2 POC ABG pO2 ABG Hemoglobin ABG Oxyhemoglobin ABG Sodium ABG Potassium ABG Chloride ABG Glucose Carboxyhemoglobin Sodium Potassium Chloride Carbon Dioxide BUN Creatinine Glucose POC Glucose 156 H Lactic Acid Calcium Lactate Dehydrogenase C-Reactive Protein NT-Pro-B Natriuret Pep Total Protein 4.3 L Albumin 2.1 L TSH Arterial Blood Glucose Arterial Blood Ionized Calcium Urine WBC (Auto) Crossmatch 11/06/20 11/06/20 11/06/20 02:54 04:00 04:00 WBC 33.0 H RBC 2.68 L Hgb 7.7 L Hct 23.3 L RDW Seg Neuts % (Manual) 95.0 H Lymphocytes % (Manual) 2.0 L Seg Neutrophils # Man 31.4 H Lymphocytes # (Manual) 0.7 L Monocytes # (Manual) 1.0 H PT INR APTT D-Dimer Heparin Anti-Xa Level ABG pH POC ABG pCO2 POC ABG pO2 116.5 H ABG Hemoglobin 9.7 L ABG Oxyhemoglobin ABG Sodium 134.5 L ABG Potassium 5.0 H ABG Chloride 109.0 H ABG Glucose 165 H Carboxyhemoglobin 0.3 L Sodium Potassium 5.1 H Chloride 108.6 H Carbon Dioxide BUN 62 H Creatinine 2.2 H Glucose 155 H POC Glucose Lactic Acid Calcium 7.3 L Lactate Dehydrogenase C-Reactive Protein NT-Pro-B Natriuret Pep Total Protein Albumin TSH Arterial Blood Glucose 165 H Arterial Blood Ionized Calcium 4.5 L Urine WBC (Auto) Crossmatch 11/06/20 11/06/20 11/07/20 05:17 17:26 04:00 WBC 28.9 H RBC 2.44 L Hgb 7.1 L Hct 21.2 L RDW 15.4 H Seg Neuts % (Manual) 95.0 H Lymphocytes % (Manual) 3.0 L Seg Neutrophils # Man 27.5 H Lymphocytes # (Manual) 0.9 L Monocytes # (Manual) PT INR APTT D-Dimer Heparin Anti-Xa Level ABG pH POC ABG pCO2 POC ABG pO2 ABG Hemoglobin ABG Oxyhemoglobin ABG Sodium ABG Potassium ABG Chloride ABG Glucose Carboxyhemoglobin Sodium Potassium Chloride Carbon Dioxide BUN Creatinine Glucose POC Glucose 147 H 132 H Lactic Acid Calcium Lactate Dehydrogenase C-Reactive Protein NT-Pro-B Natriuret Pep Total Protein Albumin TSH Arterial Blood Glucose Arterial Blood Ionized Calcium Urine WBC (Auto) Crossmatch 11/07/20 11/07/20 11/07/20 04:00 04:00 12:06 WBC RBC Hgb Hct RDW Seg Neuts % (Manual) Lymphocytes % (Manual) Seg Neutrophils # Man Lymphocytes # (Manual) Monocytes # (Manual) PT INR APTT D-Dimer Heparin Anti-Xa Level ABG pH POC ABG pCO2 POC ABG pO2 130.1 H ABG Hemoglobin 7.5 L ABG Oxyhemoglobin ABG Sodium ABG Potassium 5.0 H ABG Chloride 110.0 H ABG Glucose 152 H Carboxyhemoglobin Sodium Potassium 5.3 H Chloride 108.2 H Carbon Dioxide BUN 77 H Creatinine 2.4 H Glucose 144 H POC Glucose 144 H Lactic Acid Calcium 7.5 L Lactate Dehydrogenase C-Reactive Protein NT-Pro-B Natriuret Pep Total Protein Albumin TSH Arterial Blood Glucose 152 H Arterial Blood Ionized Calcium Urine WBC (Auto) Crossmatch 11/07/20 11/08/20 11/08/20 17:29 03:38 04:39 WBC 23.1 H RBC 2.37 L Hgb 6.9 L Hct 20.8 L RDW 15.3 H Seg Neuts % (Manual) 95.5 H Lymphocytes % (Manual) 2.5 L Seg Neutrophils # Man 22.1 H Lymphocytes # (Manual) 0.6 L Monocytes # (Manual) PT INR APTT D-Dimer Heparin Anti-Xa Level ABG pH 7.494 H POC ABG pCO2 POC ABG pO2 111.5 H ABG Hemoglobin 6.7 L ABG Oxyhemoglobin ABG Sodium ABG Potassium 4.9 H ABG Chloride 112.0 H ABG Glucose 153 H Carboxyhemoglobin Sodium Potassium Chloride Carbon Dioxide BUN Creatinine Glucose POC Glucose 117 H Lactic Acid Calcium Lactate Dehydrogenase C-Reactive Protein NT-Pro-B Natriuret Pep Total Protein Albumin TSH Arterial Blood Glucose 153 H Arterial Blood Ionized Calcium 4.5 L Urine WBC (Auto) Crossmatch 11/08/20 11/08/20 11/08/20 04:39 11:13 11:15 WBC RBC Hgb Hct RDW Seg Neuts % (Manual) Lymphocytes % (Manual) Seg Neutrophils # Man Lymphocytes # (Manual) Monocytes # (Manual) PT INR APTT D-Dimer Heparin Anti-Xa Level ABG pH POC ABG pCO2 POC ABG pO2 ABG Hemoglobin ABG Oxyhemoglobin ABG Sodium ABG Potassium ABG Chloride ABG Glucose Carboxyhemoglobin Sodium Potassium 5.1 H Chloride 111.3 H Carbon Dioxide BUN 86 H Creatinine 2.5 H Glucose 142 H POC Glucose 125 H Lactic Acid Calcium 7.6 L Lactate Dehydrogenase C-Reactive Protein NT-Pro-B Natriuret Pep Total Protein Albumin TSH Arterial Blood Glucose Arterial Blood Ionized Calcium Urine WBC (Auto) Crossmatch See Detail Chest x-ray: image reviewed Allied health notes reviewed: nursing
[2020-11-08] MEDS ORDERED: PHENYLEPHRINE/NS 1,000 MCG/10 ML SYRINGE (OR USE) IV ONE (15:14)
--- NOTE | 2020-11-08 15:17 | Progress Note ---
Assessment and Plan Assessment and plan: This is a 70-year-old male with hypertension and hypothyroidism who was admitted with a CVA (neurology consulted, stroke pathway initiated),CHF, bilateral pneumonia, COVID 19 PUI and acute hypoxic respiratory failure. 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 Acute hypoxic respiratory failure Acute on chronic systolic heart failure with exacerbation Pneumonia Leukocytosis Hyperkalemia Hyperchloremia Urinary tract infection Acute right leg thrombosis Acute kidney injury Cardiomyopathy Left atrial appendage thrombus Anemia Hypertension Hypothyroidism -CCM, cardiology, neurology, vascular surgery, nephrology,general surgery, infectious disease, hematology/oncology, GI, surgery, WOCN, ST/PT/OT consulted, appreciate recommendations -10/23 CT head shows no acute findings, periventricular areas of low attenuation suggestive of nonspecific white matter change, concern for acute ischemic change -10/23 CTA chest shows findings suggestive of mild congestive failure, negative for pulmonary embolism -10/23 CT head with contrast shows no indication of intracranial stenosis or large vessel occlusion -10/23 CTA neck shows no indication of hemodynamically significant stenosis the carotid bifurcations are also clear, right larger than left pleural effusion, remote ACDF at C5-C6 and C6-C7 levels, multifocal neuroforaminal narrowing, mild central canal stenosis evident at C5-C6 level -10/23 bilateral carotid ultrasound shows no significant stenosis -10/25 MRI Brain shows acute infarction in the left middle cerebral artery without hemorrhagic conversion -11/02 bilateral lower extremity Doppler ultrasound shows occlusive thrombus in the peroneal vein -11/02 s/p right lower extremity thombectomy with 4 compartment fasciotomy with vascular surgery -11/03 MRI brain shows interval evolutionary changes of the patchy areas of infarction along the left trigonal region, development of 7 mm focus of acute infarction involving more superior left frontoparietal junction -11/04 abdominal x-ray shows persistent abdominal distention -11/04 renal ultrasound shows findings of medical renal disease without other significant sonographic abnormality -11/05 abdominal x-ray shows increasing bowel distention appears to be predominantly in the colon, moderate/large chronic stool with no free air -11/05 CT head shows decreased attenuation along the superior parietal lobe compatible with evolving infarction without intracranial hemorrhage or other acute abnormality/interval changes -5/16 abdominal x-ray shows abundant fecal material noted throughout the colon and rectal vault consistent with history of constipation which are minimally imp roved when compared to 11/05, gas-filled and distended bowel loops are similar to prior exam -11/07 CT head shows evolving infarcts involving the left temporoparietal to the left frontoparietal lobes since 11/05 -11/08 abdomen/pelvis CT shows mild diffuse dilation of small bowel loops and proximal colon with evidence of pneumatosis concerning for ischemic bowel, small ascites but no evidence of free air or fluid collection, diffuse ileus also suspected, mild cardiomegaly with trace pericardial effusion, few tiny gallstones in the gallbladder with out abnormal dilation or wall thickening. -IV antibiotics -Vasopressor support with Levophed -Aspirin 325, Lipitor -Mechanical ventilation, wean as tolerated, VAP bundle -Contact/droplet isolation -Vitamin C, vitamin D zinc -11/08 transfuse 1 unit PRBC, obtain post transfusion CBC -Continue home beta-chang -HIT panel pending -SSI -IV antibiotics -Continue home Synthroid, converted to IV -Hold antihypertensive regimen in setting of hypotension and the use of vasopressors -Fentanyl gtt -D5W gtt -Trend CBC, BMP DVT/GI prophylaxis: SCDs to bilateral extremities while in bed, Protonix Disposition: ICU The high probability of a clinically significant, sudden or life threatening deterioration of the [cardiac, respiratory and hemodynamic] system(s) required my full and direct attention, intervention and personal management. The aggregate critical care time was [32] minutes. This time is in addition to time spent performing reported procedures but includes the following: [x] Data Review and interpretation [x] Patient assessment and monitoring of vital signs [x] Documentation [x] Medication orders and management History Interval history: This is a 70-year-old male with hypertension and hypothyroidism who presented to the emergency department on 10/23 with confusion, weakness, exercise intolerance, shortness of breath on exertion, increased bedbound status and decreased oral intake with progressively worsened over the past 2 days prior to presentation. Patient was found to have clinical symptoms consistent with a CVA (neurology consulted, stroke pathway initiated) CHF, bilateral pneumonia, and acute hypoxic respiratory failure. Patient was initiated coronavirus, pneumonia and CHF protocol. Cardiology was consulted in the emergency department. 10/24/2020: Acute CVA with right hemiparesis , PT and OT 10/25/2020: Acute CVA with right hemiplegia, Rehab consult requested, Ejection fraction is 35 to 40% 10/26/2020:patient with acute CVA and right-sided hemiparesis, PT evaluated the patient and recommended acute rehab, Case management processing the request, Possible discharge in 1 to 2 days if stable 10/27/2020: patient is clinically stable, awaiting rehab/SNF placement. DC plan sp per Case management., Neuro recommend KELLY[possible embolic CVA] follow KELLY 10/28/20: patient is doing slightly better. No new complain. Clinically stable, Patient is going for KELLY today., DC planning to rehab/SNF when cleared by neurology., DC planning per case management 10/29/20: patient is doing slightly better. No new complain. Clinically stable, continue physical therapy occupational therapy, Patient is going for KELLY on Sunday, DC planning to rehab/SNF after KELLY on Sunday, DC planning per case management 10/30/20: patient is sitting in chair. No new complain. Clinically stable, continue physical therapy occupational therapy, Patient is going for KELLY on Sunday, Awaiting DC planning to rehab/SNF after KELLY on Sunday. 10/31/20: patient is seen and examined. No new complain. Clinically stable, continue physical therapy occupational therapy., Patient is going for KELLY on ., Awaiting DC planning to rehab/SNF after KELLY on Sunday. 11/01/20: Patient is seen and examined, Patient with acute CVA and right-sided hemiparesis. Patient is evaluated by PT and recommended acute rehab Patient is going for KELLY today, Patient is waiting for DC planning to rehab/SNF after KELLY. 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 Patient has chosen [facility] and awaiting authorization. 11/02/2020. KELLY revealed left atrial appendage thrombus. Mildly dilated left ve ntricle with mild left ventricular hypertrophy with moderate global left ventricular hypokinesis with EF of 40 to 45%. Anticoagulation per cardiology recommendations. Physical therapy recommendations for acute rehab. 11/03/2020. Patient appears to have worsening aphasia and worsening right-sided weakness today per neurology. MRI brain stat. Leukocytosis likely leukemoid reaction from compartment syndrome. Patient is s/p right lower extremity thombectomy with 4 compartment fasciotomy yesterday. Bleeding from incisions over night. Consider ID consultation. Start empiric antibiotics. 11/04/2020. Patient decompensated yesterday evening with hypotension and worsening mental status. Patient was started on vasopressors and intubated. Patient is currently intubated and on fentanyl for sedation. Patient with worsening leukocytosis. Lactic acidosis likely secondary to compartment syn drome. Patient is s/p right lower extremity thombectomy with 4 compartment fasciotomy on 11/02/2020. Levaquin started empirically yesterday. ID consultation today. Patient also with worsening creatinine secondary to acute kidney injury. 11/05/2020. Patient attempted to pull out his ETT while I was examining him. Continue restraints for safety. Patient did manage to pull out his Winkler catheter and now has hematuria. We will irrigate the bladder and monitor closely patient is on anticoagulation with IV heparin. Continue Levophed drip to maintain MAP >65. Patient currently with mechanical ventilation AC mode rate of 12, tidal volume 500, FiO2 30% and a PEEP of 6. Continue fentanyl for sedation. Consult hematology hypercoagulable state given the arterial and venous thrombi. 11/06/2020. Hematology ordered argatroban and steroid pulse therapy. Follow work-up to rule out HIT. Follow-up pF4 Ab testing, Hgb electrophoresis, cardiolipin ab. Continue Levophed drip to maintain MAP >65. Patient currently with mechanical ventilation AC mode rate of 12, tidal volume 500, FiO2 30% and a PEEP of 6. Continue fentanyl for sedation. Continue antibiotics of cefepime and vancomycin. Sputum, blood and urine cultures are negative. Continue restraints for safety. 11/07/2020. Continue steroid pulse therapy per hematology recommendations. Argatroban on hold for GI bleeding and hematuria. Follow-up HIT panel and pF4 Ab testing, Hgb electrophoresis, cardiolipin ab. Continue Levophed drip to maintain MAP >65. Patient currently with mechanical ventilation AC mode rate of 12, tidal volume 500, FiO2 30% and a PEEP of 6. Continue fentanyl for sedation. Continue antibiotics of cefepime and vancomycin. Sputum, blood and urine cultures are negative. Continue restraints for safety. 11/08: CT abd/pelvis obtained today is concerning for ischemic bowels, surgery was consulted. This morning patient was on CPAP trial 03/30 at the time my examination patient is on vasopressor support with Levophed and his HIT panel is pending. He was sedated on 1 mcg of fentanyl. Lab work this morning shows leukocytosis, anemia (transfuse 1 unit PRBC), hyperkalemia (received D50 and insulin), hypochloremia and increasing BUN/creatinine. Hospitalist Physical - Constitutional Vitals: Temp Pulse Resp BP Pulse Ox 98.3 F 72 16 99/63 100 11/08/20 14:11 11/08/20 14:11 11/08/20 14:11 11/08/20 14:11 11/08/20 14:11 General appearance: Present: no acute distress, other (Obtunded, intubated) - EENT Eyes: Present: PERRL ENT: poor dentition - Neck Neck: Absent: masses or JVD, cervical LAD - Respiratory Respiratory effort: normal Respiratory: bilateral: diminished - Cardiovascular Rhythm: regular Heart Sounds: Present: S1 & S2. Absent: systolic murmur, diastolic murmur - Extremities Extremities: no ischemia, pulses intact, pulses symmetrical, No edema, normal temperature, normal color Peripheral Pulses: within normal limits - Abdominal General gastrointestinal: non-tender, distended, hypoactive bowel sounds - Integumentary Integumentary: Present: warm, dry - Psychiatric Psychiatric: other (sedated) - Neurologic Neurologic: other (sedated) - Allied Health Allied health notes reviewed: nursing, RT, social work HEART Score - HEART Score Troponin: Troponin T 0.026 ng/mL (0.00-0.029) 10/23/20 16:39 Results - Labs CBC & Chem 7: 11/08/20 04:39 11/08/20 04:39 Labs: Laboratory Last Values WBC 23.1 K/mm3 (4.5-11.0) H 11/08/20 04:39 RBC 2.37 M/mm3 (3.65-5.03) L 11/08/20 04:39 Hgb 6.9 gm/dl (11.8-15.2) L 11/08/20 04:39 Hct 20.8 % (35.5-45.6) L 11/08/20 04:39 MCV 88 fl (84-94) 11/08/20 04:39 MCH 29 pg (28-32) 11/08/20 04:39 MCHC 33 % (32-34) 11/08/20 04:39 RDW 15.3 % (13.2-15.2) H 11/08/20 04:39 Plt Count 173 K/mm3 (140-440) 11/08/20 04:39 Lymph % (Auto) 27.8 % (13.4-35.0) 10/23/20 13:32 Bowie % (Auto) 6.0 % (0.0-7.3) 10/23/20 13:32 Eos % (Auto) 1.6 % (0.0-4.3) 10/23/20 13:32 Baso % (Auto) 0.7 % (0.0-1.8) 10/23/20 13:32 Lymph # (Auto) 1.5 K/mm3 (1.2-5.4) 10/23/20 13:32 Bowie # (Auto) 0.3 K/mm3 (0.0-0.8) 10/23/20 13:32 Eos # (Auto) 0.1 K/mm3 (0.0-0.4) 10/23/20 13:32 Baso # (Auto) 0.0 K/mm3 (0.0-0.1) 10/23/20 13:32 Add Manual Diff Complete 11/08/20 04:39 Total Counted 200 11/08/20 04:39 Seg Neutrophils % Marketing Instructor 11/08/20 04:39 Seg Neuts % (Manual) 95.5 % (40.0-70.0) H 11/08/20 04:39 Lymphocytes % (Manual) 2.5 % (13.4-35.0) L 11/08/20 04:39 Monocytes % (Manual) 2.0 % (0.0-7.3) 11/08/20 04:39 Metamyelocytes % 1.0 % 11/04/20 04:00 Nucleated RBC % Not Reportable 11/08/20 04:39 Seg Neutrophils # 3.4 K/mm3 (1.8-7.7) 10/23/20 13:32 Seg Neutrophils # Man 22.1 K/mm3 (1.8-7.7) H 11/08/20 04:39 Band Neutrophils # 0.0 K/mm3 11/08/20 04:39 Lymphocytes # (Manual) 0.6 K/mm3 (1.2-5.4) L 11/08/20 04:39 Abs React Lymphs (Man) 0.0 K/mm3 11/08/20 04:39 Monocytes # (Manual) 0.5 K/mm3 (0.0-0.8) 11/08/20 04:39 Eosinophils # (Manual) 0.0 K/mm3 (0.0-0.4) 11/08/20 04:39 Basophils # (Manual) 0.0 K/mm3 (0.0-0.1) 11/08/20 04:39 Metamyelocytes # 0.0 K/mm3 11/08/20 04:39 Myelocytes # 0.0 K/mm3 11/08/20 04:39 Promyelocytes # 0.0 K/mm3 11/08/20 04:39 Blast Cells # 0.0 K/mm3 11/08/20 04:39 WBC Morphology Not Reportable 11/08/20 04:39 Hypersegmented Neuts Not Reportable 11/08/20 04:39 Hyposegmented Neuts Not Reportable 11/08/20 04:39 Hypogranular Neuts Not Reportable 11/08/20 04:39 Smudge Cells Not Reportable 11/08/20 04:39 Toxic Granulation Not Reportable 11/08/20 04:39 Toxic Vacuolation Not Reportable 11/08/20 04:39 Dohle Bodies Not Reportable 11/08/20 04:39 Pelger-Huet Anomaly Not Reportable 11/08/20 04:39 Demario Rods Not Reportable 11/08/20 04:39 Platelet Estimate Consistent w auto 11/08/20 04:39 Clumped Platelets Not Reportable 11/08/20 04:39 Plt Clumps, EDTA Not Reportable 11/08/20 04:39 Large Platelets Not Reportable 11/08/20 04:39 Giant Platelets Not Reportable 11/08/20 04:39 Platelet Satelliting Not Reportable 11/08/20 04:39 Plt Morphology Comment Not Reportable 11/08/20 04:39 RBC Morphology Not Reportable 11/08/20 04:39 Dimorphic RBCs Not Reportable 11/08/20 04:39 Polychromasia Not Reportable 11/08/20 04:39 Hypochromasia Not Reportable 11/08/20 04:39 Poikilocytosis Not Reportable 11/08/20 04:39 Anisocytosis 1+ 11/08/20 04:39 Microcytosis Not Reportable 11/08/20 04:39 Macrocytosis Not Reportable 11/08/20 04:39 Spherocytes Not Reportable 11/08/20 04:39 Pappenheimer Bodies Not Reportable 11/08/20 04:39 Sickle Cells Not Reportable 11/08/20 04:39 Target Cells Not Reportable 11/08/20 04:39 Tear Drop Cells Not Reportable 11/08/20 04:39 Ovalocytes Not Reportable 11/08/20 04:39 Helmet Cells Not Reportable 11/08/20 04:39 [place] Bodies Not Reportable 11/08/20 04:39 [place] Rings Not Reportable 11/08/20 04:39 Caryn Cells Not Reportable 11/08/20 04:39 Bite Cells Not Reportable 11/08/20 04:39 Crenated Cell Not Reportable 11/08/20 04:39 Elliptocytes Not Reportable 11/08/20 04:39 Acanthocytes (Spur) Not Reportable 11/08/20 04:39 Rouleaux Not Reportable 11/08/20 04:39 Hemoglobin C Crystals Not Reportable 11/08/20 04:39 Schistocytes Not Reportable 11/08/20 04:39 Malaria parasites Not Reportable 11/08/20 04:39 Lico Bodies Not Reportable 11/08/20 04:39 Hem Pathologist Commnt No 11/08/20 04:39 PT 16.2 Sec. (12.2-14.9) H 11/02/20 19:55 INR 1.30 (0.87-1.13) H 11/02/20 19:55 APTT 32.8 Sec. (24.2-36.6) 11/06/20 05:00 D-Dimer 4139.61 ng/mlDDU (0-234) H 10/23/20 18:23 Heparin Anti-Xa Level 0.43 U.I./ml (0.3-0.7) 11/05/20 11:30 ABG pH 7.494 (7.320-7.450) H 11/08/20 03:38 POC ABG pCO2 36.6 mmHg (32.0-48.0) 11/08/20 03:38 POC ABG pO2 111.5 mmHg (83-108) H 11/08/20 03:38 POC ABG HCO3 27.5 11/08/20 03:38 ABG O2 Saturation 98.4 (0-100) 11/08/20 03:38 POC ABG Base Excess 3.9 11/08/20 03:38 ABG Hemoglobin 6.7 (12.0-17.5) L 11/08/20 03:38 ABG Oxyhemoglobin 97.0 (94-98) 11/08/20 03:38 ABG Methemoglobin 0.3 (0.0-1.5) 11/08/20 03:38 ABG Sodium 141.1 mmol/L (136.0-145.0) 11/08/20 03:38 ABG Potassium 4.9 mmol/L (3.40-4.50) H 11/08/20 03:38 ABG Chloride 112.0 mmol/L (98-107) H 11/08/20 03:38 ABG Glucose 153 mg/dL (65-95) H 11/08/20 03:38 Carboxyhemoglobin 1.1 (0.5-1.5) 11/08/20 03:38 FiO2 % 25.0 11/08/20 03:38 Sodium 144 mmol/L (137-145) 11/08/20 04:39 Potassium 5.1 mmol/L (3.6-5.0) H 11/08/20 04:39 Chloride 111.3 mmol/L (98-107) H 11/08/20 04:39 Carbon Dioxide 28 mmol/L (22-30) 11/08/20 04:39 Anion Gap 10 mmol/L 11/08/20 04:39 BUN 86 mg/dL (9-20) H 11/08/20 04:39 Creatinine 2.5 mg/dL (0.8-1.3) H 11/08/20 04:39 Estimated GFR 31 ml/min 11/08/20 04:39 BUN/Creatinine Ratio 34 % 11/08/20 04:39 Glucose 142 mg/dL (75-100) H 11/08/20 04:39 POC Glucose 125 mg/dL (70-105) H 11/08/20 11:13 Lactic Acid 1.30 mmol/L (0.7-2.0) 11/04/20 13:01 Calcium 7.6 mg/dL (8.4-10.2) L 11/08/20 04:39 Magnesium 2.20 mg/dL (1.7-2.3) 10/23/20 20:33 Ferritin 238.5 ng/mL (30.0-300.0) 10/23/20 18:23 Total Bilirubin 0.20 mg/dL (0.1-1.2) 11/05/20 19:00 Direct Bilirubin < 0.2 mg/dL (0-0.2) 11/05/20 19:00 Indirect Bilirubin 0.0 mg/dL 11/05/20 19:00 AST 25 units/L (5-40) 11/05/20 19:00 ALT 36 units/L (7-56) 11/05/20 19:00 Alkaline Phosphatase 40 units/L (35-129) 11/05/20 19:00 Lactate Dehydrogenase 334 units/L (91-180) H 10/23/20 18:23 Troponin T 0.026 ng/mL (0.00-0.029) 10/23/20 16:39 C-Reactive Protein 8.30 mg/dL (0.00-1.30) H 11/04/20 13:01 NT-Pro-B Natriuret Pep 5806 pg/mL (0-900) H 10/23/20 13:32 Total Protein 4.3 g/dL (6.3-8.2) L 11/05/20 19:00 Albumin 2.1 g/dL (3.9-5) L 11/05/20 19:00 Albumin/Globulin Ratio 1.0 % 11/05/20 19:00 Triglycerides 60 mg/dL (2-149) 10/24/20 09:29 Cholesterol 139 mg/dL (50-199) 10/24/20 09:29 LDL Cholesterol Direct 87 mg/dL (50-130) 10/24/20 09:29 HDL Cholesterol 46 mg/dL (40-59) 10/24/20 09:29 Cholesterol/HDL Ratio 3.02 % 10/24/20 09:29 Procalcitonin 0.99 ng/mL (<0.15) 11/03/20 21:14 TSH 6.540 mlU/mL (0.270-4.200) H 10/23/20 18:23 TSH 7.100 mlU/mL (0.270-4.200) H 10/23/20 18:23 Free T4 1.33 ng/dL (0.76-1.46) 10/23/20 18:23 Arterial Blood Glucose 153 mg/dL (65-95) H 11/08/20 03:38 Arterial Blood Ionized Calcium 4.5 mg/dL (4.6-5.3) L 11/08/20 03:38 Urine Color Yellow (Yellow) 11/04/20 11:00 Urine Turbidity Hazy (Clear) 11/04/20 11:00 Urine pH 5.0 (5.0-7.0) 11/04/20 11:00 Ur Specific [place] 1.017 (1.003-1.030) 11/04/20 11:00 Urine Protein 30 mg/dl mg/dL (Negative) 11/04/20 11:00 Urine Glucose (UA) 50 mg/dL (Negative) 11/04/20 11:00 Urine Ketones Neg mg/dL (Negative) 11/04/20 11:00 Urine Blood Neg (Negative) 11/04/20 11:00 Urine Nitrite Neg (Negative) 11/04/20 11:00 Urine Bilirubin Neg (Negative) 11/04/20 11:00 Urine Urobilinogen < 2.0 mg/dL (<2.0) 11/04/20 11:00 Ur Leukocyte Esterase Tr (Negative) 11/04/20 11:00 Urine WBC (Auto) 19.0 /HPF (0.0-6.0) H 11/04/20 11:00 Urine RBC (Auto) 3.0 /HPF (0.0-6.0) 11/04/20 11:00 U Epithel Cells (Auto) < 1.0 /HPF (0-13.0) 11/04/20 11:00 Urine Mucus Few /HPF 11/04/20 11:00 Urine Eosinophils None seen (None Seen) 11/04/20 12:50 Urine Creatinine < 4.2 mg/dL (0.1-20.0) 11/04/20 12:50 Urine Sodium 10 mmol/L 11/04/20 12:50 Random Vancomycin 10.7 ug/mL (0-40.0) 11/08/20 04:39 Coronavirus (PCR) Negative (Negative) 10/24/20 09:57 Blood Type O POSITIVE 11/08/20 11:15 Antibody Screen Negative 11/08/20 11:15 Crossmatch See Detail 11/08/20 11:15 Microbiology: Microbiology 11/04/20 13:01 Peripheral/Venous Blood Culture - Preliminary NO GROWTH AFTER 4 DAYS 11/04/20 13:01 Peripheral/Venous Blood Culture - Preliminary NO GROWTH AFTER 4 DAYS 11/04/20 Unknown Tracheal Aspirate Sputum Culture - Final Neisha Albicans 11/04/20 11:00 Urine,Clean Catch Urine Culture - Final NO GROWTH AFTER 48 HOURS Winkler/IV: Voiding Method Indwelling Catheter Active Medications - Current Medications Current Medications: Generic Name Dose Route Start Last Admin Trade Name Freq PRN Reason Stop Dose Admin Acetaminophen 650 mg 10/23/20 20:00 Acetaminophen 325 Mg Tab PO Q4H PRN Pain, Mild (1-3) Lipase/Protease/Amylase 1 each 11/04/20 13:25 Lipase 10,500/Protease 25,000/Amylase 43,750 (Units) Dr Fernández FEEDTUBE PRN PRN For Clogged Feeding Tube Ascorbic Acid 500 mg 10/23/20 22:00 11/08/20 11:35 Ascorbic Acid 500 Mg Tab PO Not Given BID ALEX Aspirin 325 mg 10/24/20 10:00 11/08/20 11:34 Aspirin 325 Mg Tab PO Not Given QDAY ALEX Atorvastatin Calcium 40 mg 10/23/20 22:00 11/07/20 22:08 Atorvastatin 40 Mg Tab PO 40 mg QHS ALEX Administration Bisacodyl 10 mg 10/23/20 20:00 11/07/20 09:56 Bisacodyl 10 Mg Rect Supp [place] 10 mg QDAY PRN Administration Constipation Cholecalciferol 1,000 unit 10/24/20 10:00 11/08/20 11:36 Cholecalciferol (Vit D3) 1000 Unit (25 Mcg) Tab PO Not Given QDAY ALEX Dextrose 50 ml 11/08/20 08:04 Dextrose 50% In Water (25gm) 50 Ml Syringe IV Q30MIN PRN Hypoglycemia Protocol Docusate Sodium 100 mg 11/08/20 10:00 11/08/20 11:35 Docusate Sodium 100 Mg/10 Ml Oral Liqd FEEDTUBE Not Given BID ALEX Fentanyl 50 mcg 11/03/20 16:46 Fentanyl 100 Mcg/2 Ml Inj IV Q10MIN PRN ANALGESIA Hydrophilic Ointment 1 applic 11/03/20 16:46 Lip Therapy Vaseline TP Q2HR PRN Dry Lips Sodium Chloride 500 mls @ 125 mls/hr 11/03/20 16:00 11/04/20 05:06 Nacl 0.9% 500 Ml IV 125 mls/hr DIRECT ALEX Administration Fentanyl Citrate 2,000 mcg in 100 mls @ 4.86 mls/hr 11/03/20 17:24 11/08/20 08:30 Fentanyl Drip Premix IV 1 mcg/kg/hr TITR ALEX 4.86 mls/hr Titration Protocol 1 MCG/KG/HR NORepinephrine/NS 8 MG-250 ML 8 mg in 250 mls @ 3.75 mls/hr 11/03/20 18:00 11/08/20 08:30 Norepinephrine/Ns 8 Mg-250 Ml (Double Conc) IV Infused TITRATE ALEX Titration Protocol 2 MCG/MIN Cefepime HCl 2 gm in 100 mls @ 200 mls/hr 11/08/20 22:00 Cefepime/Ns 2 Gm/100 Ml IV Q24H [facility] Protocol Sodium Chloride 500 mls @ 0 mls/hr 11/08/20 10:45 11/08/20 12:38 Nacl 0.9% 500 Ml IV 11/08/20 23:59 50 mls/hr ONCE NR Administration As Directed Dextrose 1,000 mls @ 42 mls/hr 11/08/20 11:15 11/08/20 14:01 D5w IV 42 mls/hr DIRECT ALEX Administration Sodium Chloride 500 mls @ 0 mls/hr 11/08/20 13:23 Nacl 0.9% 500 Ml IV 11/08/20 23:59 ONCE NR As Directed Insulin Human Regular 0 units 11/08/20 09:00 11/08/20 11:34 Insulin Regular, Human 100 Units/1 Ml SUB-Q Not Given Q6H [facility] Protocol Lactulose 20 gm 11/08/20 07:45 Lactulose 20 Gm/30 Ml Oral Liqd PO QDAY PRN CONSTIPATION Levothyroxine Sodium 75 mcg 11/09/20 06:00 Levothyroxine 100 Mcg Inj IV DAILY@0600 [facility] Magnesium Hydroxide 30 ml 10/23/20 20:00 11/07/20 09:57 Magnesium Hydroxide (Mom) Oral Liqd Udc PO 30 ml Q4H PRN Administration Constipation Metoclopramide HCl 10 mg 10/23/20 20:00 Metoclopramide 10 Mg Tab PO Q6H PRN Nausea And Vomiting Metoprolol Tartrate 6.25 mg 10/27/20 10:00 11/08/20 11:35 Metoprolol Tartrate 25 Mg Tab PO Not Given BID [facility] Multi-Ingred Cream/Lotion/Oil/Oint 1 applic 11/03/20 16:46 Mineral Oil/Petrolatum, White Ophth Oint 3.5 Gm OU Q4HR PRN Dry Eye(s) Ondansetron HCl 4 mg 10/23/20 20:00 11/07/20 23:09 Ondansetron 4 Mg/2 Ml Inj IV 4 mg Q8H PRN Administration Nausea And Vomiting Oxycodone/Acetaminophen 1 tab 11/03/20 09:27 Oxycodone /Acetaminophen 5-325mg Tab PO Q6H PRN Pain, Moderate (4-6) Pantoprazole Sodium 40 mg 11/07/20 22:00 11/08/20 11:52 Pantoprazole 40 Mg Inj IV 40 mg BID [facility] Administration Promethazine HCl 25 mg 10/23/20 20:00 Promethazine 25 Mg Rect Supp [place] Q6H PRN Nausea And Vomiting Simple Syrup 15 ml 11/04/20 13:25 Simple Syrup 15 Ml FEEDTUBE PRN PRN Hypoglycemia Simple Syrup 30 ml 11/04/20 13:25 Simple Syrup 15 Ml FEEDTUBE PRN PRN Hypoglycemia Sodium Bicarbonate 325 mg 11/04/20 13:25 Sodium Bicarbonate 325 Mg Tab FEEDTUBE PRN PRN For Clogged Feeding Tube Sodium Chloride 10 ml 10/23/20 20:00 11/04/20 21:25 Sodium Chloride 0.9% 10 Ml Flush Syringe IV 10 ml PRN PRN Administration LINE FLUSH Zinc Sulfate 220 mg 10/23/20 22:00 11/08/20 11:37 Zinc Sulfate 220 Mg Cap PO Not Given BID [facility] Nutrition/Malnutrition Assess - Dietary Evaluation Nutrition/Malnutrition Findings: Nutrition Notes Start: 10/24/20 11:33 Freq: Status: Active Protocol: Document 11/04/20 13:14 AL (Rec: 11/04/20 13:25 AL [id number]) Co-Sign 11/04/20 13:14 LP Nutrition Notes Need for Assessment generated from: MD Order Initial or Follow up Reassessment Current Diagnosis Acute Kidney Injury, Hypertension,Heart Failure, Respiratory Failure,Stroke Other Pertinent Diagnosis pneu Current Diet Cardiac Diet Labs/Tests K 5.7 BUN 57 Cr 2.3 Pertinent Medications Norepinephine 4.86 ml/hr NS at 125 ml/h Colace Solumedrol Height 5 ft 11 in Weight 97.2 kg [place] Body Weight (kg) 78.18 BMI 29.9 Intake Prior to Admission Poor Weight Status Overweight Subjective/Other Information MD order for write/manage TF. Pt has high K lab values and has an STACEY. Pt. s/p open thrombectomy of right leg and fasciotomy. Will calculate Nepro TF. Burn Absent Trauma Absent Current % PO Negligible Minimum of two criteria No physical signs of malnutrition #2 Nutrition Diagnosis Inadequate oral intake Etiology Respiratory failure As Evidenced by Signs and Symptoms Pt intubated and unable to consume PO Is patient on ventilator? Yes Is Patient Ambulatory and/or Out of Bed No REE-([facility]-confined to bed) 2110.500 Additional Notes Protein: 116-195 g (1.2-2.0 g/ kg ABW) Fluid: 1 ml/kcal Nutrition Intervention Change Diet Order: Start TF Nutrition Support: Start Nepro 1.8 at 25 ml/hr and increase by 10 ml q8h until 45 ml (goal rate) is reached. Flush 150 ml q4h Kcal 1,944 Protein (gm) 88 Fluid (mL) 786 Goal #1 Meet at least 75% of energy and protein needs via TF Goal #2 TF tolerance. Anticipated Discharge Needs: Unable to determine at the moment. Follow-Up By: 11/05/20 Additional Comments FU for new TF, vent status, and renal labs.
--- NOTE | 2020-11-08 16:23 | Post Anesthesia Evaluation ---
- Post Anesthesia Evaluation Patient Participated: No Airway Patent: Yes (intubated) Stable Respiratory Function: Yes (controlled ventilation) Nausea/Vomiting: No Temp > 96.8F: Yes Pain Manageable: Yes Adequeate Hydration: Yes Anesthesia Complications: No Block Receding Appropriately: Not Applicable Patient on Ventilator: Yes (transfer of care to PACU nurse and RT)
--- NOTE | 2020-11-08 16:28 | Progress Note ---
Assessment and Plan #Acute CVA * MRI reviewed (10/23/2020): Acute infarction in the left middle cerebral artery distribution. * Telemetry reviewed: Sinus rhythm 62. No events * KELLY reviewed (11/01/2020): Likely stock of thrombus in the left atrial appendage of heterogeneous quality. No evidence of valvulopathy. Mildly dilated left ventricle with mild LVH with moderate global LV hypokinesis. LVEF 40 to 45%. No pericardial effusion. Mild plaquing. Normal agitated saline study without evidence of intracardiac or intrapulmonary communication. * (11/03/2020) new onset acute CVA * Patient subsequently went into acute respiratory failure and is currently intubated and unresponsive. * Platelet count dropped by approximately 50%, HIT panel was ordered and patient was transitioned to argatroban. Argatroban has been discontinued due to development of severe anemia. #Ischemic limb in setting of arterial thrombus and extensive DVT * (11/02/2020) arterial and venous ultrasound of right leg revealed extensive occlusive thrombus and ischemic limb. Initiated on heparin gtt. patient underwent emergent open revascularization with 4 compartment fasciotomy by vascular surgeon Dr. Ervin Menendez. #Anemia * Recommend no anticoagulation due to risk of severe bleeding. #Cardiomyopathy * Address core measures. Continue current regimen of beta-chang, NAEL inhibitor, aspirin, statin as tolerated, outpatient cardiac rehab if appropriate per mental status. * In consideration of patient's mental status acuity and other comorbidities, we will plan for conservative cardiac management. Ischemic evaluation may be pursued in the outpatient setting pending medical stabilization. #Left bundle branch block * Onset date is unknown. 12-lead reviewed no ST segment elevation. Troponins are negative x2. AMI ruled out. #Hypothyroidism * TSH is noted to be elevated. Management per primary team #Covid PUI * Covid PCR is negative #DVT prophylaxis * No AC in setting of severe anemia Patient is currently stable cardiac status. will follow This patient was seen in conjunction with Dr Weeks who agrees with this assessment and plan of care. - Patient Problems (1) LBBB (left bundle branch block) Current Visit: Yes Status: Acute (2) Acute CVA (cerebrovascular accident) Current Visit: Yes Status: Acute (3) Cardiomyopathy Current Visit: Yes Status: Acute (4) Suspected 2019 novel coronavirus infection Current Visit: Yes Status: Acute (5) Hypothyroidism Current Visit: Yes Status: Acute (6) atrial appendage thrombus Current Visit: Yes Status: Acute Subjective Date of service: 11/08/20 Principal diagnosis: CVA, Atrial Thrombus, Acute Limb Ischemia, ?GIB Interval history: Patient resting in bed. Currently intubated and unresponsive. Telemetry reviewed: Sinus rhythm 76. No events Objective Last Vital Signs Temp 98.2 F 11/08/20 08:00 Pulse 68 11/08/20 07:35 Resp 12 11/08/20 06:15 BP 111/59 11/08/20 07:35 Pulse Ox 100 11/08/20 07:35 - Physical Examination General: Other HEENT: Positive: Normocephaly, Mucus Membranes Moist Neck: Positive: neck supple, trachea midline. Negative: JVD/HJR Lungs: Positive: Ventilated Respirations Neuro: Positive: Other (Unresponsive) Abdomen: Positive: Soft Skin: Negative: Rash Incision: Cardiac Cath Site Musculoskeletal: No Fluid Collection Extremities: Present: upper extr. pulses, lower extr. pulses, Other (s/p RLE open thrombectomy with four-quadrant fasciotomy) - Labs and Meds CBC 11/08/20 Range/Units 04:39 WBC 23.1 H (4.5-11.0) K/mm3 RBC 2.37 L (3.65-5.03) M/mm3 Hgb 6.9 L (11.8-15.2) gm/dl Hct 20.8 L (35.5-45.6) % Plt Count 173 (140-440) K/mm3 Comprehensive Metabolic Panel 11/08/20 Range/Units 04:39 Sodium 144 (137-145) mmol/L Potassium 5.1 H (3.6-5.0) mmol/L Chloride 111.3 H (98-107) mmol/L Carbon Dioxide 28 (22-30) mmol/L BUN 86 H (9-20) mg/dL Creatinine 2.5 H (0.8-1.3) mg/dL Glucose 142 H (75-100) mg/dL Calcium 7.6 L (8.4-10.2) mg/dL - Imaging and Cardiology EKG: report reviewed, image reviewed Echo: report reviewed KELLY: report reviewed (11/01/2020 - likely stalk of thrombus in CARIN of heterogenous quality, EF 40-45%, negative bubble study) - Telemetry EKG Rhythm: Sinus Rhythm - EKG Sinus rhythms and dysrhythmias: sinus rhythm AV and intraventricular conduction: left bundle branch block Repolarization changes or abnormalities: nonspecific abnormality, ST segment, a nd/or T wave - Allied health notes Allied health notes reviewed: nursing
--- NOTE | 2020-11-08 16:31 | Progress Note ---
Assessment and Plan 70-year-old male with left atrial appendage thrombus on echocardiogram. Status post right lower extremity embolectomy and fasciotomies with warm well- perfused right foot. Fasciotomy dressings were not taken down today due to bowel issues. Patient has distended abdomen and CT scan demonstrates extensive pneumatosis. 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 General surgery will contact us if SMA open thrombectomy required. Subjective Date of service: 11/08/20 Principal diagnosis: CVA, Atrial Thrombus, Acute Limb Ischemia, ?GIB Interval history: Distended abdomen. Leukocytosis. Palpable left dorsalis pedis pulse. Warm and well-perfused right lower extremity. Fasciotomy dressing not removed due to bowel issues. Cannot palpate right posterior tibial pulse due to swe lling. Objective - Constitutional Vitals: Vital Signs - 12hr 11/08/20 11/08/20 11/08/20 03:00 03:15 03:30 Temperature Pulse Rate 65 64 66 Pulse Rate [ From Monitor] Respiratory 12 13 13 Rate Respiratory Rate [right leg ] Blood Pressure 95/53 95/52 95/52 O2 Sat by Pulse 100 100 81 L Oximetry 11/08/20 11/08/20 11/08/20 03:45 04:00 04:16 Temperature 98.7 F Pulse Rate 61 71 71 Pulse Rate [ From Monitor] Respiratory 12 13 15 Rate Respiratory Rate [right leg ] Blood Pressure 73/45 123/65 111/55 O2 Sat by Pulse 86 100 Oximetry 11/08/20 11/08/20 11/08/20 04:30 04:45 05:00 Temperature Pulse Rate 71 68 69 Pulse Rate [ From Monitor] Respiratory 15 13 12 Rate Respiratory Rate [right leg ] Blood Pressure 110/62 104/55 107/60 O2 Sat by Pulse 100 100 100 Oximetry 11/08/20 11/08/20 11/08/20 05:15 05:30 05:45 Temperature Pulse Rate 69 68 68 Pulse Rate [ From Monitor] Respiratory 12 14 13 Rate Respiratory Rate [right leg ] Blood Pressure 104/62 106/61 91/69 O2 Sat by Pulse 100 100 100 Oximetry 11/08/20 11/08/20 11/08/20 06:00 06:15 06:30 Temperature Pulse Rate 68 67 65 Pulse Rate [ From Monitor] Respiratory 12 12 12 Rate Respiratory Rate [right leg ] Blood Pressure 105/59 99/56 94/55 O2 Sat by Pulse 100 100 100 Oximetry 11/08/20 11/08/20 11/08/20 06:45 07:00 07:15 Temperature Pulse Rate 63 69 68 Pulse Rate [ From Monitor] Respiratory 12 10 L 13 Rate Respiratory Rate [right leg ] Blood Pressure 93/53 99/60 103/61 O2 Sat by Pulse 100 100 100 Oximetry 11/08/20 11/08/20 11/08/20 07:30 07:35 07:45 Temperature Pulse Rate 68 68 68 Pulse Rate [ From Monitor] Respiratory 11 L 14 Rate Respiratory Rate [right leg ] Blood Pressure 102/63 111/59 111/59 O2 Sat by Pulse 78 L 100 100 Oximetry 11/08/20 11/08/20 11/08/20 08:00 08:16 08:30 Temperature 98.2 F Pulse Rate 69 66 66 Pulse Rate [ 68 From Monitor] Respiratory 16 8 L 8 L Rate Respiratory Rate [right leg ] Blood Pressure 108/61 82/49 76/49 O2 Sat by Pulse 97 100 100 Oximetry 11/08/20 11/08/20 11/08/20 08:45 09:00 09:15 Temperature Pulse Rate 67 77 74 Pulse Rate [ From Monitor] Respiratory 7 L 10 L 9 L Rate Respiratory Rate [right leg ] Blood Pressure 91/52 91/52 111/66 O2 Sat by Pulse 100 100 100 Oximetry 11/08/20 11/08/20 11/08/20 09:30 09:45 10:00 Temperature Pulse Rate 75 73 69 Pulse Rate [ From Monitor] Respiratory 12 15 10 L Rate Respiratory 14 Rate [right leg ] Blood Pressure 105/61 117/66 118/62 O2 Sat by Pulse 100 98 100 Oximetry 11/08/20 11/08/20 11/08/20 10:14 10:16 10:30 Temperature Pulse Rate 80 76 75 Pulse Rate [ From Monitor] Respiratory 13 12 13 Rate Respiratory Rate [right leg ] Blood Pressure 110/71 O2 Sat by Pulse 100 Oximetry 11/08/20 11/08/20 11/08/20 10:45 11:00 11:15 Temperature Pulse Rate 72 69 71 Pulse Rate [ From Monitor] Respiratory 11 L 8 L 13 Rate Respiratory Rate [right leg ] Blood Pressure 117/65 112/58 118/60 O2 Sat by Pulse 100 100 100 Oximetry 11/08/20 11/08/20 11/08/20 11:30 11:35 12:00 Temperature 98.4 F Pulse Rate 70 64 Pulse Rate [ 72 From Monitor] Respiratory 10 L 14 Rate Respiratory Rate [right leg ] Blood Pressure 118/62 O2 Sat by Pulse 100 100 Oximetry 11/08/20 11/08/20 11/08/20 12:50 13:10 13:41 Temperature 98.6 F 98.2 F 98.0 F Pulse Rate 75 71 73 Pulse Rate [ From Monitor] Respiratory 14 11 L 12 Rate Respiratory Rate [right leg ] Blood Pressure 116/55 104/56 113/57 O2 Sat by Pulse 100 100 100 Oximetry 11/08/20 11/08/20 13:54 14:11 Temperature 98.3 F Pulse Rate 72 72 Pulse Rate [ From Monitor] Respiratory 15 16 Rate Respiratory Rate [right leg ] Blood Pressure 109/61 99/63 O2 Sat by Pulse 100 100 Oximetry General appearance: Present: other (Intubated) - EENT ENT: other (Intubated) - Respiratory Respiratory effort: other (Intubated) Extremities: abnormal (See subjective) - Gastrointestinal General gastrointestinal: Present: distended - Psychiatric Psychiatric: appropriate mood/affect, cooperative - Labs CBC & Chem 7: 11/08/20 04:39 11/08/20 04:39 Labs: Abnormal lab results 11/02/20 11/07/20 11/08/20 Range/Units 15:00 17:29 03:38 WBC (4.5-11.0) K/mm3 RBC (3.65-5.03) M/mm3 Hgb (11.8-15.2) gm/dl Hct (35.5-45.6) % RDW (13.2-15.2) % Seg Neuts % (Manual) (40.0-70.0) % Lymphocytes % (Manual) (13.4-35.0) % Seg Neutrophils # Man (1.8-7.7) K/mm3 Lymphocytes # (Manual) (1.2-5.4) K/mm3 ABG pH 7.494 H (7.320-7.450) POC ABG pO2 111.5 H (83-108) mmHg ABG Hemoglobin 6.7 L (12.0-17.5) ABG Potassium 4.9 H (3.40-4.50) mmol/L ABG Chloride 112.0 H (98-107) mmol/L ABG Glucose 153 H (65-95) mg/dL Potassium (3.6-5.0) mmol/L Chloride (98-107) mmol/L BUN (9-20) mg/dL Creatinine (0.8-1.3) mg/dL Glucose (75-100) mg/dL POC Glucose 117 H (70-105) mg/dL Calcium (8.4-10.2) mg/dL Arterial Blood Glucose 153 H (65-95) mg/dL Arterial Blood Ionized Calcium 4.5 L (4.6-5.3) mg/dL Crossmatch See Detail 11/08/20 11/08/20 11/08/20 Range/Units 04:39 04:39 11:13 WBC 23.1 H (4.5-11.0) K/mm3 RBC 2.37 L (3.65-5.03) M/mm3 Hgb 6.9 L (11.8-15.2) gm/dl Hct 20.8 L (35.5-45.6) % RDW 15.3 H (13.2-15.2) % Seg Neuts % (Manual) 95.5 H (40.0-70.0) % Lymphocytes % (Manual) 2.5 L (13.4-35.0) % Seg Neutrophils # Man 22.1 H (1.8-7.7) K/mm3 Lymphocytes # (Manual) 0.6 L (1.2-5.4) K/mm3 ABG pH (7.320-7.450) POC ABG pO2 (83-108) mmHg ABG Hemoglobin (12.0-17.5) ABG Potassium (3.40-4.50) mmol/L ABG Chloride (98-107) mmol/L ABG Glucose (65-95) mg/dL Potassium 5.1 H (3.6-5.0) mmol/L Chloride 111.3 H (98-107) mmol/L BUN 86 H (9-20) mg/dL Creatinine 2.5 H (0.8-1.3) mg/dL Glucose 142 H (75-100) mg/dL POC Glucose 125 H (70-105) mg/dL Calcium 7.6 L (8.4-10.2) mg/dL Arterial Blood Glucose (65-95) mg/dL Arterial Blood Ionized Calcium (4.6-5.3) mg/dL Crossmatch 11/08/20 Range/Units 11:15 WBC (4.5-11.0) K/mm3 RBC (3.65-5.03) M/mm3 Hgb (11.8-15.2) gm/dl Hct (35.5-45.6) % RDW (13.2-15.2) % Seg Neuts % (Manual) (40.0-70.0) % Lymphocytes % (Manual) (13.4-35.0) % Seg Neutrophils # Man (1.8-7.7) K/mm3 Lymphocytes # (Manual) (1.2-5.4) K/mm3 ABG pH (7.320-7.450) POC ABG pO2 (83-108) mmHg ABG Hemoglobin (12.0-17.5) ABG Potassium (3.40-4.50) mmol/L ABG Chloride (98-107) mmol/L ABG Glucose (65-95) mg/dL Potassium (3.6-5.0) mmol/L Chloride (98-107) mmol/L BUN (9-20) mg/dL Creatinine (0.8-1.3) mg/dL Glucose (75-100) mg/dL POC Glucose (70-105) mg/dL Calcium (8.4-10.2) mg/dL Arterial Blood Glucose (65-95) mg/dL Arterial Blood Ionized Calcium (4.6-5.3) mg/dL Crossmatch See Detail - Imaging and cardiology CT scan - abdomen: report reviewed, image reviewed Medications & Allergies - Medications Allergies/Adverse Reactions: Allergies No Known Allergies Allergy (Unverified 10/23/20 12:44) Home Medications: Home Medications Medication Instructions Recorded Confirmed Last Taken Type Levothyroxine Sodium 150 mcg PO DAILY 10/31/20 10/31/20 Unknown History [Levothyroxine] carvediloL [Coreg] 6.25 mg PO BID 10/31/20 10/31/20 Unknown History lisinopriL [Lisinopril] 10 mg PO DAILY 10/31/20 10/31/20 Unknown History Active Medications: Generic Name Dose Route Start Last Admin Trade Name Freq PRN Reason Stop Dose Admin Acetaminophen 650 mg 10/23/20 20:00 Acetaminophen 325 Mg Tab PO Q4H PRN Pain, Mild (1-3) Lipase/Protease/Amylase 1 each 11/04/20 13:25 Lipase 10,500/Protease 25,000/Amylase 43,750 (Units) Dr Cap FEEDTUBE PRN PRN For Clogged Feeding Tube Ascorbic Acid 500 mg 10/23/20 22:00 11/08/20 11:35 Ascorbic Acid 500 Mg Tab PO Not Given BID ALEX Aspirin 325 mg 10/24/20 10:00 11/08/20 11:34 Aspirin 325 Mg Tab PO Not Given QDAY ALEX Atorvastatin Calcium 40 mg 10/23/20 22:00 11/07/20 22:08 Atorvastatin 40 Mg Tab PO 40 mg QHS ALEX Administration Bisacodyl 10 mg 10/23/20 20:00 11/07/20 09:56 Bisacodyl 10 Mg Rect Supp MD 10 mg QDAY PRN Administration Constipation Cholecalciferol 1,000 unit 10/24/20 10:00 11/08/20 11:36 Cholecalciferol (Vit D3) 1000 Unit (25 Mcg) Tab PO Not Given QDAY ALEX Dextrose 50 ml 11/08/20 08:04 Dextrose 50% In Water (25gm) 50 Ml Syringe IV Q30MIN PRN Hypoglycemia Protocol Docusate Sodium 100 mg 11/08/20 10:00 11/08/20 11:35 Docusate Sodium 100 Mg/10 Ml Oral Liqd FEEDTUBE Not Given BID ALEX Fentanyl 50 mcg 11/03/20 16:46 Fentanyl 100 Mcg/2 Ml Inj IV Q10MIN PRN ANALGESIA Hydrophilic Ointment 1 applic 11/03/20 16:46 Lip Therapy Vaseline TP Q2HR PRN Dry Lips Sodium Chloride 500 mls @ 125 mls/hr 11/03/20 16:00 11/04/20 05:06 Nacl 0.9% 500 Ml IV 125 mls/hr DIRECT ALEX Administration Fentanyl Citrate 2,000 mcg in 100 mls @ 4.86 mls/hr 11/03/20 17:24 11/08/20 08:30 Fentanyl Drip Premix IV 1 mcg/kg/hr TITR ALEX 4.86 mls/hr Titration Protocol 1 MCG/KG/HR NORepinephrine/NS 8 MG-250 ML 8 mg in 250 mls @ 3.75 mls/hr 11/03/20 18:00 11/08/20 08:30 Norepinephrine/Ns 8 Mg-250 Ml (Double Conc) IV Infused TITRATE [facility] Titration Protocol 2 MCG/MIN Cefepime HCl 2 gm in 100 mls @ 200 mls/hr 11/08/20 22:00 Cefepime/Ns 2 Gm/100 Ml IV Q24H [facility] Protocol Sodium Chloride 500 mls @ 0 mls/hr 11/08/20 10:45 11/08/20 12:38 Nacl 0.9% 500 Ml IV 11/08/20 23:59 50 mls/hr ONCE NR Administration As Directed Dextrose 1,000 mls @ 42 mls/hr 11/08/20 11:15 11/08/20 14:01 D5w IV 42 mls/hr DIRECT ALEX Administration Sodium Chloride 500 mls @ 0 mls/hr 11/08/20 13:23 Nacl 0.9% 500 Ml IV 11/08/20 23:59 ONCE NR As Directed Insulin Human Regular 0 units 11/08/20 09:00 11/08/20 11:34 Insulin Regular, Human 100 Units/1 Ml SUB-Q Not Given Q6H [facility] Protocol Lactulose 20 gm 11/08/20 07:45 Lactulose 20 Gm/30 Ml Oral Liqd PO QDAY PRN CONSTIPATION Levothyroxine Sodium 75 mcg 11/09/20 06:00 Levothyroxine 100 Mcg Inj IV DAILY@0600 [facility] Magnesium Hydroxide 30 ml 10/23/20 20:00 11/07/20 09:57 Magnesium Hydroxide (Mom) Oral Liqd Udc PO 30 ml Q4H PRN Administration Constipation Metoclopramide HCl 10 mg 10/23/20 20:00 Metoclopramide 10 Mg Tab PO Q6H PRN Nausea And Vomiting Metoprolol Tartrate 6.25 mg 10/27/20 10:00 11/08/20 11:35 Metoprolol Tartrate 25 Mg Tab PO Not Given BID [facility] Multi-Ingred Cream/Lotion/Oil/Oint 1 applic 11/03/20 16:46 Mineral Oil/Petrolatum, White Ophth Oint 3.5 Gm OU Q4HR PRN Dry Eye(s) Ondansetron HCl 4 mg 10/23/20 20:00 11/07/20 23:09 Ondansetron 4 Mg/2 Ml Inj IV 4 mg Q8H PRN Administration Nausea And Vomiting Oxycodone/Acetaminophen 1 tab 11/03/20 09:27 Oxycodone /Acetaminophen 5-325mg Tab PO Q6H PRN Pain, Moderate (4-6) Pantoprazole Sodium 40 mg 11/07/20 22:00 11/08/20 11:52 Pantoprazole 40 Mg Inj IV 40 mg BID [facility] Administration Promethazine HCl 25 mg 10/23/20 20:00 Promethazine 25 Mg Rect Supp MD Q6H PRN Nausea And Vomiting Simple Syrup 15 ml 11/04/20 13:25 Simple Syrup 15 Ml FEEDTUBE PRN PRN Hypoglycemia Simple Syrup 30 ml 11/04/20 13:25 Simple Syrup 15 Ml FEEDTUBE PRN PRN Hypoglycemia Sodium Bicarbonate 325 mg 11/04/20 13:25 Sodium Bicarbonate 325 Mg Tab FEEDTUBE PRN PRN For Clogged Feeding Tube Sodium Chloride 10 ml 10/23/20 20:00 11/04/20 21:25 Sodium Chloride 0.9% 10 Ml Flush Syringe IV 10 ml PRN PRN Administration LINE FLUSH Zinc Sulfate 220 mg 10/23/20 22:00 11/08/20 11:37 Zinc Sulfate 220 Mg Cap PO Not Given BID [facility] HEART Score - HEART Score Troponin: Troponin T 0.026 ng/mL (0.00-0.029) 10/23/20 16:39
[2020-11-08 16:38] LABS: Heparin-Induced Platelet Antib Negative (Negative); Unfractionated Heparin Negative (Negative)
--- NOTE | 2020-11-08 16:38 | Post Operative Note ---
Pre-op diagnosis: Pneumatosis intestinalis, sepsis Post-op diagnosis: same Findings: 1. Segmental infarcts of distal small intestine with pneumatosis intestinalis present - approximately 30 cm of small bowel resected 2. SMA with strongly palpable pulse. 3. Large stool burden in left colon Procedure: exploratory laparotomy, small bowel resection Anesthesia: ARTUROA Surgeon: CASS ACEVEDO Mill Worker: REGGIE VEGA Estimated blood loss: minimal Pathology: list (ischemic small intestine) Specimen disposition: to lab Condition: stable Disposition: ICU
[2020-11-08 16:41] LABS: Hematocrit 23.6 % (35.5-45.6)
[2020-11-08] MEDS: D5W/0.45% NACL 1,000 ML IV SCH (17:30)
[2020-11-08] MEDS: metroNIDAZOLE/NS 500 MG/100 ML 500 MG/100 ML BAG IV SCH (17:30)
[2020-11-08 20:05] LABS: Alanine Aminotransferase 27 units/L (7-56); Albumin 2.2 g/dL (3.9-5)
[2020-11-08 20:06] LABS: Bilirubin,Direct < 0.2 mg/dL (0-0.2)
--- NOTE | 2020-11-08 21:17 | Progress Note ---
Assessment and Plan Anticoagulation on hold in the setting of GIB. Prognosis remains guarded. Will follow. Eventually plan for outpatient ischemic eval when clinically stable, ideally 6 weeks out. Pt seen in conjunction with Dr. Salvador, who agrees with the assessment and plan of care. - Patient Problems (1) Acute CVA (cerebrovascular accident) Current Visit: Yes Status: Acute (2) Thrombus of atrial appendage Current Visit: Yes Status: Acute (3) Limb ischemia Current Visit: Yes Status: Acute (4) Compartment syndrome Current Visit: Yes Status: Acute (5) Hematemesis Current Visit: Yes Status: Acute (6) Anemia Current Visit: Yes Status: Acute (7) Sepsis Current Visit: Yes Status: Acute Qualifiers: Severe sepsis shock status: with septic shock (8) Acute hypoxemic respiratory failure Current Visit: Yes Status: Acute (9) Acute HFrEF (heart failure with reduced ejection fraction) Current Visit: Yes Status: Resolved (10) Cardiomyopathy Current Visit: Yes Status: Chronic Plan to address problem: EF 40-45% on echo this admission (11) STACEY (acute kidney injury) Current Visit: Yes Status: Acute (12) Hypothyroidism Current Visit: Yes Status: Chronic (13) H/O: HTN (hypertension) Current Visit: Yes Status: Chronic Subjective Date of service: 11/07/20 Principal diagnosis: CVA, Atrial Thrombus, Acute Limb Ischemia, ?GIB Interval history: Hgb continues to trend down. Tele reviewed - SR 60s, no events overnight. Objective Last Vital Signs Temp 98.0 F 11/07/20 20:00 Pulse 68 11/07/20 22:08 Resp 15 11/07/20 21:30 BP 93/58 11/07/20 22:08 Pulse Ox 100 11/07/20 21:30 - Physical Examination General: Other HEENT: Positive: Normocephaly, Mucus Membranes Moist Neck: Positive: neck supple, trachea midline. Negative: JVD/HJR Cardiac: Positive: Reg Rate and Rhythm, S1/S2 Lungs: Positive: Other (coarse anteriorly) Neuro: Positive: Other Abdomen: Positive: Soft Skin: Negative: Rash Musculoskeletal: No Fluid Collection Extremities: Present: upper extr. pulses, lower extr. pulses, +1 Edema (LLE), Other (s/p RLE open thrombectomy with four-quadrant fasciotomy) - Labs and Meds CBC 11/07/20 Range/Units 04:00 WBC 28.9 H (4.5-11.0) K/mm3 RBC 2.44 L (3.65-5.03) M/mm3 Hgb 7.1 L (11.8-15.2) gm/dl Hct 21.2 L (35.5-45.6) % Plt Count 176 (140-440) K/mm3 Comprehensive Metabolic Panel 11/07/20 Range/Units 04:00 Sodium 141 (137-145) mmol/L Potassium 5.3 H (3.6-5.0) mmol/L Chloride 108.2 H (98-107) mmol/L Carbon Dioxide 27 (22-30) mmol/L BUN 77 H (9-20) mg/dL Creatinine 2.4 H (0.8-1.3) mg/dL Glucose 144 H (75-100) mg/dL Calcium 7.5 L (8.4-10.2) mg/dL - Imaging and Cardiology EKG: report reviewed, image reviewed Echo: report reviewed (11/01/2020 - likely stalk of thrombus in CARIN of heterogenous quality, EF 40-45%, negative bubble study) - Telemetry EKG Rhythm: Sinus Rhythm - EKG Sinus rhythms and dysrhythmias: sinus rhythm AV and intraventricular conduction: left bundle branch block Repolarization changes or abnormalities: nonspecific abnormality, ST segment, and/or T wave - Allied health notes Allied health notes reviewed: nursing
[2020-11-08] MEDS: CEFEPIME/NS 2 GM/100 ML 2 GM/100 ML BAG IV SCH (21:24)
[2020-11-08] MEDS ORDERED: ARGATROBAN 250 MG in SODIUM CHLORIDE 0.9% 250ML 247.5 ML IV SCH (22:00)
[2020-11-09] MEDS: D5W/0.45% NACL 1,000 ML IV SCH ×2 (01:12→13:31)
[2020-11-09] MEDS: metroNIDAZOLE/NS 500 MG/100 ML 500 MG/100 ML BAG IV SCH ×3 (01:12→17:08)
[2020-11-09] MEDS: fentaNYL DRIP Premix 2,000 MCG/100 ML BAG IV SCH ×3 (02:58→17:07)
--- NOTE | 2020-11-09 03:27 | Consultation ---
DATE OF CONSULTATION: 11/08/2020 REFERRING PHYSICIAN: Harmeet Kilpatrick. INDICATIONS: 1. Nausea, vomiting. 2. Abdominal pain. HISTORY OF PRESENT ILLNESS: The patient is a 70-year-old male admitted back on 10/23/2020 after a CVA. The patient's hospital course __ congestive heart failure, acute cerebrovascular accident with hemiparesis. The patient also was noted to be COVID negative. He also developed pneumonia. The patient subsequently was intubated. The patient has had progressive recent bowel distention. GI was consulted overnight when he started having what was felt to be fecal emesis. Examination of the patient is noted to have abdominal distention. CT scan has already been ordered by surgical team. Further management to follow. PAST MEDICAL HISTORY: 1. Hypertension. 2. Hypothyroidism. 3. Thyroid disease. MEDICATIONS: Reviewed and updated in chart. ALLERGIES: No known drug allergies. SOCIAL HISTORY: Reported no alcohol or tobacco. FAMILY HISTORY: Noncontributory. REVIEW OF SYSTEMS: GENERAL: No reported weakness. HEENT: No visual complaints. PULMONARY: Rhonchi. CARDIOVASCULAR: Denies any cardiac issues. GASTROINTESTINAL: Reports abdominal distention. History and pertinent findings as per chart. PHYSICAL EXAMINATION: VITAL SIGNS: Temperature 98.3, pulse 60, respirations 20, blood pressure 113/70. GENERAL: Intubated and sedated, in no acute distress. HEENT: Pupils round and reactive. PULMONARY: Rhonchi. CARDIOVASCULAR: Regular rhythm. ABDOMEN: Distended. SKIN: No obvious rashes. LABORATORY DATA: White count 23.1, hemoglobin and hematocrit 6.9 and 20.8, platelet count 173. Chem-7 within normal limits except for BUN and creatinine of 86 and 2.5. ASSESSMENT AND PLAN: A 70-year-old male admitted with CVA. An extended course now with abdominal distention and emesis. Concern for intra-abdominal process. PLAN: 1. Agree with CT scan as ordered by surgery team. 2. N.p.o. 3. We will await repeat CT scan for further recommendations. TID: [id number] RECEIPT: [id number] [facility]
[2020-11-09 03:37] LABS: Hematocrit 22.2 % (35.5-45.6); Hemoglobin 7.5 gm/dl (11.8-15.2); Mean Corpuscular HGB Conc 34 % (32-34); Mean Corpuscular Volume 88 fl (84-94); Platelet Count 152 K/mm3 (140-440); Red Blood Count 2.51 M/mm3 (3.65-5.03); Red Cell Distribution Width 15.3 % (13.2-15.2)
[2020-11-09] MEDS: INSULIN REGULAR, HUMAN 100 UNITS/1 ML SUB-Q SCH ×4 (03:43→21:25)
--- NOTE | 2020-11-09 04:01 | XRay Report ---
CHEST 1 VIEW 11/09/2020 2:48 AM INDICATION / CLINICAL INFORMATION: follow up respiratory failure. COMPARISON: One view of the chest from 11/08/2020. FINDINGS: SUPPORT DEVICES: Unchanged. HEART / MEDIASTINUM: Stable. LUNGS / PLEURA: Reduced lung volumes are again noted with increased bibasilar opacities. The upper karla ngs are clear. No significant pleural effusion. No pneumothorax. ADDITIONAL FINDINGS: No significant additional findings. IMPRESSION: Increased probable bibasilar atelectasis without other significant interval changes. Signer Name: Rafa Parmar MD Signed: 11/09/2020 3:56 AM Workstation Name: [id number]
[2020-11-09 04:07] LABS: Calcium 6.9 mg/dL (8.4-10.2)
[2020-11-09 04:37] LABS: Anisocytosis 1+; Hypochromasia 1+; Platelet Estimate Consistent w Auto; Total Cells Counted 100
[2020-11-09] MEDS: LEVOTHYROXINE 100 MCG INJ IV SCH (05:19)
--- NOTE | 2020-11-09 09:04 | Progress Note ---
Assessment and Plan 1. Acute kidney injury: Vasomotor STACEY in the setting of shock. Renal US negative for hydro. Monitor renal function. Renal prognosis is guarded. Creatinine level same as yesterday. Avoid nephrotoxic agents. Meds dosage based on GFR. 2. FEN: Hyperkalemia, improved, monitor. Hyperchloremia, monitor. Monitor lytes and volume status. 3. Severe sepsis with shock: Etiology unclear, rule out bacteremia, UTI, pneumonia and other nosocomial infections. On Levophed. Followed by ID. 4. 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 Seen by Neurology. 5. Acute hypoxemic respiratory failure: Intubated, on vent. 6. Acute on chronic systolic heart failure: EF 40-45%. Followed by Cards. 7. Left atrial thrombus: On Argatroban. 8. Acute R LE ischemia: S/p thrombectomy. 9. Mild pneumatosis of ascending colon: Bowel ischemia. S/p Ex-lap and small bowel resection 11/08. Followed by General surgery. 10. Normochromic anemia: Monitor. Subjective: Patient was seen and examined at the bedside. RN at the bedside. Examination: General appearance: well-developed, appears stated age, no distress, intubated, on vent, NG tube HEENT: Pupils equal, atraumatic Neck: trachea midline Respiratory: Clear to Auscultation Heart: S1S2, regular, no murmur Abdomen: soft, midline wound vac noted Integumentary: R LE dressing noted Neurologic: not responding Ext: bilateral LE edema noted, R > L : Winkler catheter Subjective Date of service: 11/09/20 Principal diagnosis: CVA, Atrial Thrombus, Acute Limb Ischemia, ?GIB Objective - Vital Signs Vital signs: Vital Signs - 12hr 11/08/20 11/08/20 11/08/20 21:15 21:25 21:30 Temperature Pulse Rate 68 76 Pulse Rate [ 72 From Monitor] Respiratory 15 18 13 Rate Respiratory 14 Rate [right leg ] Blood Pressure 108/66 123/66 O2 Sat by Pulse 100 100 100 Oximetry 11/08/20 11/08/20 11/08/20 21:45 22:00 22:15 Temperature Pulse Rate 67 66 66 Pulse Rate [ From Monitor] Respiratory 12 12 12 Rate Respiratory Rate [right leg ] Blood Pressure 95/61 92/61 97/59 O2 Sat by Pulse 100 100 100 Oximetry 11/08/20 11/08/20 11/08/20 22:30 22:45 23:00 Temperature Pulse Rate 65 64 69 Pulse Rate [ From Monitor] Respiratory 12 12 17 Rate Respiratory Rate [right leg ] Blood Pressure 95/58 91/55 92/62 O2 Sat by Pulse 100 100 100 Oximetry 11/08/20 11/08/20 11/08/20 23:05 23:16 23:25 Temperature Pulse Rate 67 69 Pulse Rate [ 72 From Monitor] Respiratory 14 18 Rate Respiratory Rate [right leg ] Blood Pressure 110/53 O2 Sat by Pulse 100 100 Oximetry 11/08/20 11/08/20 11/09/20 23:30 23:46 00:00 Temperature 97.7 F Pulse Rate 68 71 66 Pulse Rate [ From Monitor] Respiratory 15 12 12 Rate Respiratory Rate [right leg ] Blood Pressure 115/61 107/68 97/61 O2 Sat by Pulse 100 100 100 Oximetry 11/09/20 11/09/20 11/09/20 00:02 00:16 00:30 Temperature Pulse Rate 65 63 64 Pulse Rate [ From Monitor] Respiratory 12 12 12 Rate Respiratory Rate [right leg ] Blood Pressure 97/61 97/61 85/55 O2 Sat by Pulse 100 100 100 Oximetry 11/09/20 11/09/20 11/09/20 00:45 01:00 01:15 Temperature Pulse Rate 66 63 68 Pulse Rate [ 72 From Monitor] Respiratory 12 12 10 L Rate Respiratory Rate [right leg ] Blood Pressure 90/55 95/57 102/57 O2 Sat by Pulse 100 100 100 Oximetry 11/09/20 11/09/20 11/09/20 01:30 01:45 02:01 Temperature Pulse Rate 67 64 67 Pulse Rate [ From Monitor] Respiratory 12 12 14 Rate Respiratory Rate [right leg ] Blood Pressure 93/54 93/54 85/50 O2 Sat by Pulse 100 100 100 Oximetry 11/09/20 11/09/20 11/09/20 02:15 02:30 02:45 Temperature Pulse Rate 69 66 66 Pulse Rate [ From Monitor] Respiratory 13 14 14 Rate Respiratory Rate [right leg ] Blood Pressure 175/146 99/48 99/48 O2 Sat by Pulse 100 100 100 Oximetry 11/09/20 11/09/20 11/09/20 02:58 03:01 03:05 Temperature Pulse Rate 69 67 Pulse Rate [ 69 From Monitor] Respiratory 18 16 Rate Respiratory Rate [right leg ] Blood Pressure 94/53 O2 Sat by Pulse 100 100 Oximetry 11/09/20 11/09/20 11/09/20 03:15 03:31 03:45 Temperature Pulse Rate 69 68 65 Pulse Rate [ From Monitor] Respiratory 12 12 11 L Rate Respiratory Rate [right leg ] Blood Pressure 97/59 92/55 90/51 O2 Sat by Pulse 100 100 100 Oximetry 11/09/20 11/09/20 11/09/20 04:00 04:04 04:15 Temperature 97.7 F Pulse Rate 64 67 62 Pulse Rate [ From Monitor] Respiratory 12 12 Rate Respiratory Rate [right leg ] Blood Pressure 85/52 85/52 81/50 O2 Sat by Pulse 100 100 100 Oximetry 11/09/20 11/09/20 11/09/20 04:30 04:45 04:55 Temperature 97.9 F Pulse Rate 62 73 Pulse Rate [ 69 From Monitor] Respiratory 12 17 12 Rate Respiratory Rate [right leg ] Blood Pressure 89/53 89/53 105/59 O2 Sat by Pulse 100 100 100 Oximetry 11/09/20 11/09/20 11/09/20 05:00 05:15 05:30 Temperature Pulse Rate 67 67 67 Pulse Rate [ From Monitor] Respiratory 12 11 L 12 Rate Respiratory Rate [right leg ] Blood Pressure 89/52 89/52 105/59 O2 Sat by Pulse 100 100 100 Oximetry 11/09/20 11/09/20 11/09/20 05:45 06:01 06:15 Temperature Pulse Rate 67 68 68 Pulse Rate [ From Monitor] Respiratory 13 13 13 Rate Respiratory Rate [right leg ] Blood Pressure 105/59 110/61 109/64 O2 Sat by Pulse 100 100 100 Oximetry 11/09/20 11/09/20 11/09/20 06:31 06:45 07:00 Temperature Pulse Rate 67 69 65 Pulse Rate [ From Monitor] Respiratory 13 13 12 Rate Respiratory Rate [right leg ] Blood Pressure 92/60 92/60 92/51 O2 Sat by Pulse 99 99 100 Oximetry 11/09/20 11/09/20 11/09/20 07:15 07:30 07:45 Temperature Pulse Rate 63 62 68 Pulse Rate [ From Monitor] Respiratory 12 12 13 Rate Respiratory Rate [right leg ] Blood Pressure 92/53 90/53 90/53 O2 Sat by Pulse 100 100 100 Oximetry 11/09/20 08:00 Temperature 97.6 F Pulse Rate Pulse Rate [ From Monitor] Respiratory Rate Respiratory Rate [right leg ] Blood Pressure O2 Sat by Pulse Oximetry - Lab 11/09/20 03:21 11/09/20 03:21 Most recent lab results ABG pH 7.494 (7.320-7.450) H 11/08/20 03:38 ABG O2 Saturation 98.4 (0-100) 11/08/20 03:38 Calcium 6.9 mg/dL (8.4-10.2) L 11/09/20 03:21 Magnesium 2.20 mg/dL (1.7-2.3) 10/23/20 20:33 Urine Creatinine < 4.2 mg/dL (0.1-20.0) 11/04/20 12:50 Urine Sodium 10 mmol/L 11/04/20 12:50 Medications & Allergies - Medications Allergies/Adverse Reactions: Allergies No Known Allergies Allergy (Unverified 10/23/20 12:44) Home Medications: Home Medications Medication Instructions Recorded Confirmed Last Taken Type Levothyroxine Sodium 150 mcg PO DAILY 10/31/20 10/31/20 Unknown History [Levothyroxine] carvediloL [Coreg] 6.25 mg PO BID 10/31/20 10/31/20 Unknown History lisinopriL [Lisinopril] 10 mg PO DAILY 10/31/20 10/31/20 Unknown History Active Medications: Generic Name Dose Route Start Last Admin Trade Name Freq PRN Reason Stop Dose Admin Bisacodyl 10 mg 11/08/20 22:00 11/08/20 21:20 Bisacodyl 10 Mg Rect Supp GA 10 mg BID ALEX Administration Dextrose 50 ml 11/08/20 08:04 Dextrose 50% In Water (25gm) 50 Ml Syringe IV Q30MIN PRN Hypoglycemia Protocol Fentanyl 50 mcg 11/03/20 16:46 Fentanyl 100 Mcg/2 Ml Inj IV Q10MIN PRN ANALGESIA Hydrophilic Ointment 1 applic 11/03/20 16:46 Lip Therapy Vaseline TP Q2HR PRN Dry Lips Fentanyl Citrate 2,000 mcg in 100 mls @ 4.86 mls/hr 11/03/20 17:24 11/09/20 02:58 Fentanyl Drip Premix IV 2 mcg/kg/hr TITR ALEX 9.72 mls/hr Administration Protocol 1 MCG/KG/HR NORepinephrine/NS 8 MG-250 ML 8 mg in 250 mls @ 3.75 mls/hr 11/03/20 18:00 11/08/20 19:02 Norepinephrine/Ns 8 Mg-250 Ml (Double Conc) IV 2 mcg/min TITRATE ALEX 3.75 mls/hr Titration Protocol 2 MCG/MIN Cefepime HCl 2 gm in 100 mls @ 200 mls/hr 11/08/20 22:00 11/08/20 21:24 Cefepime/Ns 2 Gm/100 Ml IV 200 mls/hr Q24H ALEX Administration Protocol Dextrose/Sodium Chloride 1,000 mls @ 100 mls/hr 11/08/20 17:00 11/09/20 01:12 D5/0.45ns IV 100 mls/hr DIRECT ALEX Administration Propofol 1,000 mg in 100 mls @ 3.126 mls/hr 11/08/20 17:00 11/08/20 20:30 Diprivan 10 Mg/Ml IV 5 mcg/kg/min TITR ALEX 3.126 mls/hr Titration Protocol 5 MCG/KG/MIN Metronidazole 500 mg in 100 mls @ 100 mls/hr 11/08/20 17:00 11/09/20 01:12 Flagyl 500 Mg/100 Ml IV 100 mls/hr Q8H ALEX Administration Protocol Argatroban 250 mg/ Sodium 250 mls @ 3.126 mls/hr 11/08/20 22:00 11/09/20 05:13 Chloride IV 0.5 mcg/kg/min TITR ALEX 3.126 mls/hr Titration Protocol 0.5 MCG/KG/MIN Calcium Gluconate 2,000 mg/ 120 mls @ 660 mls/hr 11/09/20 09:01 Sodium Chloride IV 11/09/20 09:11 ONCE ONE Insulin Human Regular 0 units 11/08/20 09:00 11/09/20 03:43 Insulin Regular, Human 100 Units/1 Ml SUB-Q Not Given Q6H [facility] Protocol Levothyroxine Sodium 75 mcg 11/09/20 06:00 11/09/20 05:19 Levothyroxine 100 Mcg Inj IV 75 mcg DAILY@0600 [facility] Administration Multi-Ingred Cream/Lotion/Oil/Oint 1 applic 11/03/20 16:46 Mineral Oil/Petrolatum, White Ophth Oint 3.5 Gm OU Q4HR PRN Dry Eye(s) Ondansetron HCl 4 mg 10/23/20 20:00 11/07/20 23:09 Ondansetron 4 Mg/2 Ml Inj IV 4 mg Q8H PRN Administration Nausea And Vomiting Pantoprazole Sodium 40 mg 11/07/20 22:00 11/08/20 21:23 Pantoprazole 40 Mg Inj IV 40 mg BID ALEX Administration Sodium Chloride 10 ml 10/23/20 20:00 11/08/20 21:24 Sodium Chloride 0.9% 10 Ml Flush Syringe IV 10 ml PRN PRN Administration LINE FLUSH
--- NOTE | 2020-11-09 09:14 | Progress Note ---
Assessment and Plan #Acute CVA * MRI reviewed (10/23/2020): Acute infarction in the left middle cerebral artery distribution. * Telemetry reviewed: Sinus rhythm 62. No events * KELLY reviewed (11/01/2020): Likely stock of thrombus in the left atrial appendage of heterogeneous quality. No evidence of valvulopathy. Mildly dilated left ventricle with mild LVH with moderate global LV hypokinesis. LVEF 40 to 45%. No pericardial effusion. Mild plaquing. Normal agitated saline study without evidence of intracardiac or intrapulmonary communication. * (11/03/2020) new onset acute CVA * Patient subsequently went into acute respiratory failure and is currently intubated and unresponsive. * Platelet count dropped by approximately 50%, HIT panel was ordered and patient was transitioned to argatroban. Argatroban has been discontinued due to development of severe anemia. #Ischemic limb in setting of arterial thrombus and extensive DVT * (11/02/2020) arterial and venous ultrasound of right leg revealed extensive occlusive thrombus and ischemic limb. Initiated on heparin gtt. patient underwent emergent open revascularization with 4 compartment fasciotomy by vascular surgeon Dr. Ervin Menendez. #Anemia * Recommend no anticoagulation due to risk of severe bleeding. #Cardiomyopathy * Address core measures. Continue current regimen of beta-chang, NAEL inhibitor, aspirin, statin as tolerated, outpatient cardiac rehab if appropriate per mental status. * In consideration of patient's mental status acuity and other comorbidities, we will plan for conservative cardiac management. Ischemic evaluation may be pursued in the outpatient setting pending medical stabilization. #Left bundle branch block * Onset date is unknown. 12-lead reviewed no ST segment elevation. Troponins are negative x2. AMI ruled out. #Hypothyroidism * TSH is noted to be elevated. Management per primary team #Covid PUI * Covid PCR is negative #DVT prophylaxis * No AC in setting of severe anemia Patient is currently stable cardiac status. will follow This patient was seen in conjunction with Dr Weeks who agrees with this assessment and plan of care. - Patient Problems (1) LBBB (left bundle branch block) Current Visit: Yes Status: Acute (2) Acute CVA (cerebrovascular accident) Current Visit: Yes Status: Acute (3) Cardiomyopathy Current Visit: Yes Status: Acute (4) Suspected 2019 novel coronavirus infection Current Visit: Yes Status: Acute (5) Hypothyroidism Current Visit: Yes Status: Acute (6) atrial appendage thrombus Current Visit: Yes Status: Acute - Patient Problems (1) Acute CVA (cerebrovascular accident) Onset Date: ~11/09/20 Current Visit: Yes Status: Acute Subjective Date of service: 11/09/20 Principal diagnosis: CVA, Atrial Thrombus, Acute Limb Ischemia, ?GIB Interval history: Patient resting in bed. Currently intubated and unresponsive. Telemetry reviewed: Sinus rhythm 76. No events Objective Last Vital Signs Temp 97.6 F 11/09/20 08:00 Pulse 66 11/09/20 09:00 Resp 13 11/09/20 09:00 BP 92/68 11/09/20 09:00 Pulse Ox 100 11/09/20 09:00 - Physical Examination General: Other HEENT: Positive: Normocephaly, Mucus Membranes Moist Neck: Positive: neck supple, trachea midline. Negative: JVD/HJR Cardiac: Positive: Reg Rate and Rhythm Lungs: Positive: Normal Exam Neuro: Positive: Other (Unresponsive) Abdomen: Positive: Soft Skin: Negative: Rash Incision: Cardiac Cath Site Musculoskeletal: No Fluid Collection Extremities: Present: upper extr. pulses, lower extr. pulses, Other (s/p RLE open thrombectomy with four-quadrant fasciotomy) - Labs and Meds Cardiac Enzymes 11/08/20 Range/Units 19:11 AST 21 (5-40) units/L Coagulation 11/09/20 Range/Units 03:21 APTT 50.8 H (24.2-36.6) Sec. CBC 11/08/20 11/09/20 Range/Units 16:30 03:21 WBC 19.0 H (4.5-11.0) K/mm3 RBC 2.51 L (3.65-5.03) M/mm3 Hgb 8.0 L 7.5 L (11.8-15.2) gm/dl Hct 23.6 L 22.2 L (35.5-45.6) % Plt Count 152 (140-440) K/mm3 Comprehensive Metabolic Panel 11/08/20 11/09/20 Range/Units 19:11 03:21 Sodium 141 (137-145) mmol/L Potassium 5.0 (3.6-5.0) mmol/L Chloride 109.1 H (98-107) mmol/L Carbon Dioxide 27 (22-30) mmol/L BUN 86 H (9-20) mg/dL Creatinine 2.5 H (0.8-1.3) mg/dL Glucose 140 H (75-100) mg/dL Calcium 6.9 L (8.4-10.2) mg/dL Direct Bilirubin < 0.2 (0-0.2) mg/dL Indirect Bilirubin 0.3 mg/dL AST 21 (5-40) units/L ALT 27 (7-56) units/L Alkaline Phosphatase 41 (35-129) units/L Total Protein 3.8 L (6.3-8.2) g/dL Albumin 2.2 L (3.9-5) g/dL - Imaging and Cardiology EKG: report reviewed, image reviewed Echo: report reviewed - EKG Sinus rhythms and dysrhythmias: sinus rhythm AV and intraventricular conduction: left bundle branch block Repolarization changes or abnormalities: nonspecific abnormality, ST segment, and/or T wave - Allied health notes Allied health notes reviewed: nursing
--- NOTE | 2020-11-09 09:15 | Progress Note ---
Assessment and Plan Telemetry reviewed: Sinus rhythm 67. No events #Atrial Appendage Thrombus * KELLY reviewed (11/01/2020): Likely stock of thrombus in the left atrial appendage of heterogeneous quality. No evidence of valvulopathy. Mildly dilated left ventricle with mild LVH with moderate global LV hypokinesis. LVEF 40 to 45%. No pericardial effusion. Mild plaquing. Normal agitated saline study without evidence of intracardiac or intrapulmonary communication. * Due to severe anemia, recommend no anticoagulation at this time due to risk of severe bleeding. Will plan to resume argatroban pending resolution of anemia due to suspected heparin-induced thrombocytopenia #Mesenteric infarct s/p laparoscopic bowel resection * Currently strict TPN/NPO orders per GI surgery, discontinue all p.o. 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 * MRI reviewed (10/23/2020): Acute CVA. * MRI reviewed (11/03/2020) new onset acute CVA. #Ischemic limb in setting of arterial thrombus and extensive DVT s/p revascularization * (11/02/2020) occlusive arterial thrombus and extensive DVT developed in right lower limb. Vascular surgery performed open revascularization with 4 compartment fasciotomy. #Cardiomyopathy * Echocardiogram reviewed (10/23/2020): LVEF is 35 to 40%. Left ventricle is moderately dilated. LV SF is mild to moderately decreased. Borderline concentric LVH. Left ventricle has diffuse moderate to severe hypokinesis of the inferior wall. RV SF is normal. Left atrium is mildly dilated. Right atrium is mildly dilated. Saline bubble contrast intravenous injection does not demonstrate PFO. RVSP is 23 mmHg. No valvular abnormalities. * In consideration of patient's mental status acuity and other comorbidities, we will plan for conservative cardiac management. Plan to optimize cardiac regimen once patient is able to resume p.o. medication. #Left bundle branch block * Onset date is unknown. 12-lead reviewed no ST segment elevation. Troponins are negative x2. AMI ruled out. #DVT prophylaxis * No AC in setting of severe anemia Patient is currently guarded cardiac status with poor prognosis. Will follow This patient was seen in conjunction with Dr Weeks who agrees with this assessment and plan of care. - Patient Problems (1) LBBB (left bundle branch block) Current Visit: Yes Status: Acute (2) Acute CVA (cerebrovascular accident) Current Visit: Yes Status: Acute (3) Cardiomyopathy Current Visit: Yes Status: Acute (4) Suspected 2019 novel coronavirus infection Current Visit: Yes Status: Acute (5) Hypothyroidism Current Visit: Yes Status: Acute (6) atrial appendage thrombus Current Visit: Yes Status: Acute Subjective Date of service: 11/08/20 Principal diagnosis: CVA, Atrial Thrombus, Acute Limb Ischemia, ?GIB Interval history: Patient resting in bed. Currently intubated and unresponsive. Telemetry reviewed: Sinus rhythm 76. No events Subjective Date of service: 11/09/20 Principal diagnosis: CVA, Atrial Thrombus, Acute Limb Ischemia, ?GIB Interval history: Patient resting in bed, intubated and sedated. Telemetry reviewed: Sinus rhythm 67. No events. Objective Last Vital Signs Temp 97.6 F 11/09/20 08:00 Pulse 66 11/09/20 09:00 Resp 13 11/09/20 09:00 BP 92/68 11/09/20 09:00 Pulse Ox 100 11/09/20 09:00 - Physical Examination General: Other HEENT: Positive: Normocephaly, Mucus Membranes Moist Neck: Positive: neck supple, trachea midline. Negative: JVD/HJR Cardiac: Positive: Reg Rate and Rhythm, S1/S2 Lungs: Positive: Ventilated Respirations Neuro: Positive: Other (Unresponsive) Abdomen: Positive: Soft Skin: Negative: Rash Incision: Cardiac Cath Site Musculoskeletal: No Fluid Collection Extremities: Present: upper extr. pulses, lower extr. pulses, Other (s/p RLE open thrombectomy with four-quadrant fasciotomy) - Labs and Meds Cardiac Enzymes 11/08/20 Range/Units 19:11 AST 21 (5-40) units/L Coagulation 11/09/20 Range/Units 03:21 APTT 50.8 H (24.2-36.6) Sec. CBC 11/08/20 11/09/20 Range/Units 16:30 03:21 WBC 19.0 H (4.5-11.0) K/mm3 RBC 2.51 L (3.65-5.03) M/mm3 Hgb 8.0 L 7.5 L (11.8-15.2) gm/dl Hct 23.6 L 22.2 L (35.5-45.6) % Plt Count 152 (140-440) K/mm3 Comprehensive Metabolic Panel 11/08/20 11/09/20 Range/Units 19:11 03:21 Sodium 141 (137-145) mmol/L Potassium 5.0 (3.6-5.0) mmol/L Chloride 109.1 H (98-107) mmol/L Carbon Dioxide 27 (22-30) mmol/L BUN 86 H (9-20) mg/dL Creatinine 2.5 H (0.8-1.3) mg/dL Glucose 140 H (75-100) mg/dL Calcium 6.9 L (8.4-10.2) mg/dL Direct Bilirubin < 0.2 (0-0.2) mg/dL Indirect Bilirubin 0.3 mg/dL AST 21 (5-40) units/L ALT 27 (7-56) units/L Alkaline Phosphatase 41 (35-129) units/L Total Protein 3.8 L (6.3-8.2) g/dL Albumin 2.2 L (3.9-5) g/dL - Imaging and Cardiology EKG: report reviewed, image reviewed Echo: report reviewed - Telemetry EKG Rhythm: Sinus Rhythm - EKG Sinus rhythms and dysrhythmias: sinus rhythm AV and intraventricular conduction: left bundle branch block Repolarization changes or abnormalities: nonspecific abnormality, ST segment, and/or T wave - Allied health notes Allied health notes reviewed: nursing
[2020-11-09] MEDS: PANTOPRAZOLE 40 MG INJ IV SCH ×2 (09:23→22:10)
[2020-11-09] MEDS ORDERED: CALCIUM GLUCONATE 2,000 MG in SODIUM CHLORIDE 0.9% 100 ML IV ONE (09:30)
--- NOTE | 2020-11-09 09:48 | Progress Note ---
Assessment and Plan 70 yo M s/p exploratory laparotomy, small bowel resection, placement of abthera vac, POD 1 1. 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 Vent dependent respiratory failure 3. septic shock 4. MCA CVA 5. acute limb ischemia s/p right lower extremity revascularization and fasciotomies Plan: 1. neuro - continue propofol and fentgtt for deep sedation while patient has open abdomen 2. CV - monitor BP. wean pressors as tolerated - currently on levophed 2mcg. Continue argatroban gtt at low dose, monitor H/H. Vascular and cards on board 3. Resp - vent management per ICU team. Do not wean while patient has open abdomen 4. GI - NPO, IVF, GI ppx. NGT to LIWS. Abthera vac to -125mmHg suction. Enemax2 today and suppository 5. - knutson for strict I/Os 6. ID - abx per ID. Flagyl added 7. Endo - strict glucose control 8. Musc - SCDs. Frequent turning. 9. FEN - BMP daily and replace lytes as needed Plan to return to OR tomorrow for reexploration with possible anastamosis and abdominal closure. Will obtain consent from son. Thank you for this consultation. Please call with any questions or concerns. Evaluation and treatment of this patient was during the time of the national and state emergency arising from COVID19 coronavirus pandemic. Treatment and procedures performed meet the current and available best practice and guidelines for patient during the COVID pandemic. Objective Vital Signs - 12hr 11/08/20 11/08/20 11/08/20 21:45 22:00 22:15 Temperature Pulse Rate 67 66 66 Pulse Rate [ From Monitor] Respiratory 12 12 12 Rate Blood Pressure 95/61 92/61 97/59 O2 Sat by Pulse 100 100 100 Oximetry 11/08/20 11/08/20 11/08/20 22:30 22:45 23:00 Temperature Pulse Rate 65 64 69 Pulse Rate [ From Monitor] Respiratory 12 12 17 Rate Blood Pressure 95/58 91/55 92/62 O2 Sat by Pulse 100 100 100 Oximetry 11/08/20 11/08/20 11/08/20 23:05 23:16 23:25 Temperature Pulse Rate 67 69 Pulse Rate [ 72 From Monitor] Respiratory 14 18 Rate Blood Pressure 110/53 O2 Sat by Pulse 100 100 Oximetry 11/08/20 11/08/20 11/09/20 23:30 23:46 00:00 Temperature 97.7 F Pulse Rate 68 71 66 Pulse Rate [ From Monitor] Respiratory 15 12 12 Rate Blood Pressure 115/61 107/68 97/61 O2 Sat by Pulse 100 100 100 Oximetry 11/09/20 11/09/20 11/09/20 00:02 00:16 00:30 Temperature Pulse Rate 65 63 64 Pulse Rate [ From Monitor] Respiratory 12 12 12 Rate Blood Pressure 97/61 97/61 85/55 O2 Sat by Pulse 100 100 100 Oximetry 11/09/20 11/09/20 11/09/20 00:45 01:00 01:15 Temperature Pulse Rate 66 63 68 Pulse Rate [ 72 From Monitor] Respiratory 12 12 10 L Rate Blood Pressure 90/55 95/57 102/57 O2 Sat by Pulse 100 100 100 Oximetry 11/09/20 11/09/20 11/09/20 01:30 01:45 02:01 Temperature Pulse Rate 67 64 67 Pulse Rate [ From Monitor] Respiratory 12 12 14 Rate Blood Pressure 93/54 93/54 85/50 O2 Sat by Pulse 100 100 100 Oximetry 11/09/20 11/09/20 11/09/20 02:15 02:30 02:45 Temperature Pulse Rate 69 66 66 Pulse Rate [ From Monitor] Respiratory 13 14 14 Rate Blood Pressure 175/146 99/48 99/48 O2 Sat by Pulse 100 100 100 Oximetry 11/09/20 11/09/20 11/09/20 02:58 03:01 03:05 Temperature Pulse Rate 69 67 Pulse Rate [ 69 From Monitor] Respiratory 18 16 Rate Blood Pressure 94/53 O2 Sat by Pulse 100 100 Oximetry 11/09/20 11/09/20 11/09/20 03:15 03:31 03:45 Temperature Pulse Rate 69 68 65 Pulse Rate [ From Monitor] Respiratory 12 12 11 L Rate Blood Pressure 97/59 92/55 90/51 O2 Sat by Pulse 100 100 100 Oximetry 11/09/20 11/09/20 11/09/20 04:00 04:04 04:15 Temperature 97.7 F Pulse Rate 64 67 62 Pulse Rate [ From Monitor] Respiratory 12 12 Rate Blood Pressure 85/52 85/52 81/50 O2 Sat by Pulse 100 100 100 Oximetry 11/09/20 11/09/2011/09/21 04:30 04:45 04:55 Temperature 97.9 F Pulse Rate 62 73 Pulse Rate [ 69 From Monitor] Respiratory 12 17 12 Rate Blood Pressure 89/53 89/53 105/59 O2 Sat by Pulse 100 100 100 Oximetry 11/09/20 11/09/20 11/09/20 05:00 05:15 05:30 Temperature Pulse Rate 67 67 67 Pulse Rate [ From Monitor] Respiratory 12 11 L 12 Rate Blood Pressure 89/52 89/52 105/59 O2 Sat by Pulse 100 100 100 Oximetry 11/09/20 11/09/20 11/09/20 05:45 06:01 06:15 Temperature Pulse Rate 67 68 68 Pulse Rate [ From Monitor] Respiratory 13 13 13 Rate Blood Pressure 105/59 110/61 109/64 O2 Sat by Pulse 100 100 100 Oximetry 11/09/20 11/09/20 11/09/20 06:31 06:45 07:00 Temperature Pulse Rate 67 69 65 Pulse Rate [ From Monitor] Respiratory 13 13 12 Rate Blood Pressure 92/60 92/60 92/51 O2 Sat by Pulse 99 99 100 Oximetry 11/09/20 11/09/20 11/09/20 07:15 07:30 07:45 Temperature Pulse Rate 63 62 68 Pulse Rate [ From Monitor] Respiratory 12 12 13 Rate Blood Pressure 92/53 90/53 90/53 O2 Sat by Pulse 100 100 100 Oximetry 11/09/20 11/09/20 11/09/20 08:00 08:01 08:15 Temperature 97.6 F Pulse Rate 68 70 Pulse Rate [ 68 From Monitor] Respiratory 18 13 13 Rate Blood Pressure 121/63 121/63 O2 Sat by Pulse 100 100 98 Oximetry 11/09/20 11/09/20 11/09/20 08:30 08:45 09:00 Temperature Pulse Rate 68 68 66 Pulse Rate [ From Monitor] Respiratory 12 13 13 Rate Blood Pressure 104/65 104/65 92/68 O2 Sat by Pulse 100 100 100 Oximetry - Labs 11/09/20 03:21 11/09/20 03:21 Diabetes panel 11/08/20 11/09/20 Range/Units 19:11 03:21 Sodium 141 (137-145) mmol/L Potassium 5.0 (3.6-5.0) mmol/L Chloride 109.1 H (98-107) mmol/L Carbon Dioxide 27 (22-30) mmol/L BUN 86 H (9-20) mg/dL Creatinine 2.5 H (0.8-1.3) mg/dL Glucose 140 H (75-100) mg/dL Calcium 6.9 L (8.4-10.2) mg/dL AST 21 (5-40) units/L ALT 27 (7-56) units/L Alkaline Phosphatase 41 (35-129) units/L Total Protein 3.8 L (6.3-8.2) g/dL Albumin 2.2 L (3.9-5) g/dL Calcium panel 11/08/20 11/09/20 Range/Units 19:11 03:21 Calcium 6.9 L (8.4-10.2) mg/dL Albumin 2.2 L (3.9-5) g/dL Pituitary panel 11/09/20 Range/Units 03:21 Sodium 141 (137-145) mmol/L Potassium 5.0 (3.6-5.0) mmol/L Chloride 109.1 H (98-107) mmol/L Carbon Dioxide 27 (22-30) mmol/L BUN 86 H (9-20) mg/dL Creatinine 2.5 H (0.8-1.3) mg/dL Glucose 140 H (75-100) mg/dL Calcium 6.9 L (8.4-10.2) mg/dL Adrenal panel 11/08/20 11/09/20 Range/Units 19:11 03:21 Sodium 141 (137-145) mmol/L Potassium 5.0 (3.6-5.0) mmol/L Chloride 109.1 H (98-107) mmol/L Carbon Dioxide 27 (22-30) mmol/L BUN 86 H (9-20) mg/dL Creatinine 2.5 H (0.8-1.3) mg/dL Glucose 140 H (75-100) mg/dL Calcium 6.9 L (8.4-10.2) mg/dL Total Bilirubin 0.50 (0.1-1.2) mg/dL AST 21 (5-40) units/L ALT 27 (7-56) units/L Alkaline Phosphatase 41 (35-129) units/L Total Protein 3.8 L (6.3-8.2) g/dL Albumin 2.2 L (3.9-5) g/dL
--- NOTE | 2020-11-09 10:09 | Hem/Onc Progress Note ---
Subjective Interval history: HEME 70yo man with NICM/ICM EF 30-35%, recent R leg arterial thrombosis, now with stroke and L atrial clot was looking toward acute rehab-->but setback, now intubated, ARF, hypotension--.vasopressors on and off IV heparin today started argatroban because HIT possible-->then had oral bleeding-->stopped argatroban has been on vasopressors yesterday OR for abd distension-->intestinal ischemia/infarction DATA REVIEWED BELOW. PF4 Ab testing neg IMP: Clotting tendency, now s/p arterial cloting in leg and intestine still concerned about HIT recent L atrial clotting REC: argatroban Active Medications Bisacodyl (Bisacodyl 10 Mg Rect Supp) 10 mg AK BID ALEX Last Admin: 11/09/20 09:23 Dose: 10 mg Documented by: Dextrose (Dextrose 50% In Water (25gm) 50 Ml Syringe) 50 ml IV Q30MIN PRN; Protocol PRN Reason: Hypoglycemia Fentanyl (Fentanyl 100 Mcg/2 Ml Inj) 50 mcg IV Q10MIN PRN PRN Reason: ANALGESIA Glycerin (Glycerin Adult 2 Gram Rect Supp) 1 supp AK ONCE ONE Stop: 11/09/20 10:31 Hydrophilic Ointment (Lip Therapy Vaseline) 1 applic TP Q2HR PRN PRN Reason: Dry Lips Fentanyl Citrate (Fentanyl Drip Premix) 2,000 mcg in 100 mls @ 4.86 mls/hr IV TITR ALEX; Protocol Last Titration: 11/09/20 09:14 Dose: 3 mcg/kg/hr, 14.58 mls/hr Documented by: NORepinephrine/NS 8 MG-250 ML (Norepinephrine/Ns 8 Mg-250 Ml (Double Conc)) 8 mg in 250 mls @ 3.75 mls/hr IV TITRATE ALEX; Protocol Last Titration: 11/09/20 09:53 Dose: 0 mcg/min, 0 mls/hr Documented by: Cefepime HCl (Cefepime/Ns 2 Gm/100 Ml) 2 gm in 100 mls @ 200 mls/hr IV Q24H ALEX; Protocol Last Admin: 11/08/20 21:24 Dose: 200 mls/hr Documented by: Dextrose/Sodium Chloride (D5/0.45ns) 1,000 mls @ 100 mls/hr IV DIRECT ALEX Last Admin: 11/09/20 01:12 Dose: 100 mls/hr Documented by: Propofol (Diprivan 10 Mg/Ml) 1,000 mg in 100 mls @ 3.126 mls/hr IV TITR ALEX; Protocol Last Titration: 11/09/20 09:58 Dose: 10 mcg/kg/min, 6.252 mls/hr Documented by: Metronidazole (Flagyl 500 Mg/100 Ml) 500 mg in 100 mls @ 100 mls/hr IV Q8H ALEX; Protocol Last Admin: 11/09/20 09:23 Dose: 100 mls/hr Documented by: Argatroban 250 mg/ Sodium (Chloride) 250 mls @ 3.126 mls/hr IV TITR ALEX; Protocol Last Titration: 11/09/20 05:13 Dose: 0.5 mcg/kg/min, 3.126 mls/hr Documented by: Laboratory Last Values WBC 19.0 K/mm3 (4.5-11.0) H 11/09/20 03:21 Hgb 7.5 gm/dl (11.8-15.2) L 11/09/20 03:21 Hct 22.2 % (35.5-45.6) L 11/09/20 03:21 Plt Count 152 K/mm3 (140-440) 11/09/20 03:21 PT 16.2 Sec. (12.2-14.9) H 11/02/20 19:55 INR 1.30 (0.87-1.13) H 11/02/20 19:55 APTT 50.8 Sec. (24.2-36.6) H 11/09/20 03:21 Creatinine 2.5 mg/dL (0.8-1.3) H 11/09/20 03:21 AST 21 units/L (5-40) 11/08/20 19:11 ALT 27 units/L (7-56) 11/08/20 19:11 Alkaline Phosphatase 41 units/L (35-129) 11/08/20 19:11 Lactate Dehydrogenase 334 units/L (91-180) H 10/23/20 18:23 Heparin-induced Plt Ab Negative (Negative) 11/06/20 Unknown UF Heparin High Dose 0 % Release 11/06/20 Unknown DYLAN UFH Low Dose 0.1 0 % Release 11/06/20 Unknown DYLAN UFH Low Dose 0.5 0 % Release 11/06/20 Unknown Coronavirus (PCR) Negative (Negative) 10/24/20 09:57 Blood Type O POSITIVE 11/08/20 11:15 Antibody Screen Negative 11/08/20 11:15 Crossmatch See Detail 11/08/20 11:15 Objective - Constitutional Vitals: Last Vital Signs Temp 97.6 F 11/09/20 08:00 Pulse 66 11/09/20 09:00 Resp 13 11/09/20 09:00 BP 92/68 11/09/20 09:00 Pulse Ox 100 11/09/20 09:00 - Labs Lab Results: Laboratory Results - last 24 hr 11/02/20 11/06/20 11/08/20 15:00 Unknown 11:13 WBC RBC Hgb Hct MCV MCH MCHC RDW Plt Count Add Manual Diff Total Counted Seg Neutrophils % Seg Neuts % (Manual) Lymphocytes % (Manual) Monocytes % (Manual) Nucleated RBC % Seg Neutrophils # Man Band Neutrophils # Lymphocytes # (Manual) Abs React Lymphs (Man) Monocytes # (Manual) Eosinophils # (Manual) Basophils # (Manual) Metamyelocytes # Myelocytes # Promyelocytes # Blast Cells # WBC Morphology Hypersegmented Neuts Hyposegmented Neuts Hypogranular Neuts Smudge Cells Toxic Granulation Toxic Vacuolation Dohle Bodies Pelger-Huet Anomaly Demario Rods Platelet Estimate Clumped Platelets Plt Clumps, EDTA Large Platelets Giant Platelets Platelet Satelliting Plt Morphology Comment RBC Morphology Dimorphic RBCs Polychromasia Hypochromasia Poikilocytosis Anisocytosis Microcytosis Macrocytosis Spherocytes Pappenheimer Bodies Sickle Cells Target Cells Tear Drop Cells Ovalocytes Helmet Cells Oliva-[place] Bodies [place] Rings Caryn Cells Bite Cells Crenated Cell Elliptocytes Acanthocytes (Spur) Rouleaux Hemoglobin C Crystals Schistocytes Malaria parasites Lico Bodies Hem Pathologist Commnt APTT Heparin Anti-Xa, Unfract Negative Sodium Potassium Chloride Carbon Dioxide Anion Gap BUN Creatinine Estimated GFR BUN/Creatinine Ratio Glucose POC Glucose 125 H Calcium Total Bilirubin Direct Bilirubin Indirect Bilirubin AST ALT Alkaline Phosphatase Total Protein Albumin Albumin/Globulin Ratio Heparin-induced Plt Ab Negative UF Heparin High Dose 0 DYLAN UFH Low Dose 0.1 0 DYLAN UFH Low Dose 0.5 0 Blood Type Antibody Screen Crossmatch See Detail 11/08/20 11/08/2021 11:15 16:30 17:43 WBC RBC Hgb 8.0 L Hct 23.6 L MCV MCH MCHC RDW Plt Count Add Manual Diff Total Counted Seg Neutrophils % Seg Neuts % (Manual) Lymphocytes % (Manual) Monocytes % (Manual) Nucleated RBC % Seg Neutrophils # Man Band Neutrophils # Lymphocytes # (Manual) Abs React Lymphs (Man) Monocytes # (Manual) Eosinophils # (Manual) Basophils # (Manual) Metamyelocytes # Myelocytes # Promyelocytes # Blast Cells # WBC Morphology Hypersegmented Neuts Hyposegmented Neuts Hypogranular Neuts Smudge Cells Toxic Granulation Toxic Vacuolation Dohle Bodies Pelger-Huet Anomaly Demario Rods Platelet Estimate Clumped Platelets Plt Clumps, EDTA Large Platelets Giant Platelets Platelet Satelliting Plt Morphology Comment RBC Morphology Dimorphic RBCs Polychromasia Hypochromasia Poikilocytosis Anisocytosis Microcytosis Macrocytosis Spherocytes Pappenheimer Bodies Sickle Cells Target Cells Tear Drop Cells Ovalocytes Helmet Cells [place]iva-[place] Bodies [place] Rings [place] Cells Bite Cells Crenated Cell Elliptocytes Acanthocytes (Spur) Rouleaux Hemoglobin C Crystals Schistocytes Malaria parasites Lico Bodies Hem Pathologist Commnt APTT Heparin Anti-Xa, Unfract Sodium Potassium Chloride Carbon Dioxide Anion Gap BUN Creatinine Estimated GFR BUN/Creatinine Ratio Glucose POC Glucose 94 Calcium Total Bilirubin Direct Bilirubin Indirect Bilirubin AST ALT Alkaline Phosphatase Total Protein Albumin Albumin/Globulin Ratio Heparin-induced Plt Ab UF Heparin High Dose DYLAN UFH Low Dose 0.1 DYLAN UFH Low Dose 0.5 Blood Type O POSITIVE Antibody Screen Negative Crossmatch See Detail 11/08/20 11/08/20 11/09/20 19:11 22:20 03:21 WBC 19.0 H RBC 2.51 L Hgb 7.5 L Hct 22.2 L MCV 88 MCH 30 MCHC 34 RDW 15.3 H Plt Count 152 Add Manual Diff Complete Total Counted 100 Seg Neutrophils % Marketing Communications Assistant Seg Neuts % (Manual) 89.0 H Lymphocytes % (Manual) 6.0 L Monocytes % (Manual) 5.0 Nucleated RBC % Not Reportable Seg Neutrophils # Man 16.9 H Band Neutrophils # 0.0 Lymphocytes # (Manual) 1.1 L Abs React Lymphs (Man) 0.0 Monocytes # (Manual) 1.0 H Eosinophils # (Manual) 0.0 Basophils # (Manual) 0.0 Metamyelocytes # 0.0 Myelocytes # 0.0 Promyelocytes # 0.0 Blast Cells # 0.0 WBC Morphology Not Reportable Hypersegmented Neuts Not Reportable Hyposegmented Neuts Not Reportable Hypogranular Neuts Not Reportable Smudge Cells Not Reportable Toxic Granulation Not Reportable Toxic Vacuolation Not Reportable Dohle Bodies Not Reportable Pelger-Huet Anomaly Not Reportable Demario Rods Not Reportable Platelet Estimate Consistent w auto Clumped Platelets Not Reportable Plt Clumps, EDTA Not Reportable Large Platelets Not Reportable Giant Platelets Not Reportable Platelet Satelliting Not Reportable Plt Morphology Comment Not Reportable RBC Morphology Not Reportable Dimorphic RBCs Not Reportable Polychromasia Not Reportable Hypochromasia 1+ Poikilocytosis Not Reportable Anisocytosis 1+ Microcytosis Not Reportable Macrocytosis Not Reportable Spherocytes Not Reportable Pappenheimer Bodies Not Reportable Sickle Cells Not Reportable Target Cells Not Reportable Tear Drop Cells Not Reportable Ovalocytes Not Reportable Helmet Cells Not Reportable Oliva-[place] Bodies Not Reportable [place] Rings Not Reportable [place] Cells Not Reportable Bite Cells Not Reportable Crenated Cell Not Reportable Elliptocytes Not Reportable Acanthocytes (Spur) Not Reportable Rouleaux Not Reportable Hemoglobin C Crystals Not Reportable Schistocytes Not Reportable Malaria parasites Not Reportable Lico Bodies Not Reportable Hem Pathologist Commnt No APTT Heparin Anti-Xa, Unfract Sodium Potassium Chloride Carbon Dioxide Anion Gap BUN Creatinine Estimated GFR BUN/Creatinine Ratio Glucose POC Glucose 107 H Calcium Total Bilirubin 0.50 Direct Bilirubin < 0.2 Indirect Bilirubin 0.3 AST 21 ALT 27 Alkaline Phosphatase 41 Total Protein 3.8 L Albumin 2.2 L Albumin/Globulin Ratio 1.4 Heparin-induced Plt Ab UF Heparin High Dose DYLAN UFH Low Dose 0.1 DYLAN UFH Low Dose 0.5 Blood Type Antibody Screen Crossmatch 11/09/20 11/09/20 11/09/20 03:21 03:21 03:43 WBC RBC Hgb Hct MCV MCH MCHC RDW Plt Count Add Manual Diff Total Counted Seg Neutrophils % Seg Neuts % (Manual) Lymphocytes % (Manual) Monocytes % (Manual) Nucleated RBC % Seg Neutrophils # Man Band Neutrophils # Lymphocytes # (Manual) Abs React Lymphs (Man) Monocytes # (Manual) Eosinophils # (Manual) Basophils # (Manual) Metamyelocytes # Myelocytes # Promyelocytes # Blast Cells # WBC Morphology Hypersegmented Neuts Hyposegmented Neuts Hypogranular Neuts Smudge Cells Toxic Granulation Toxic Vacuolation Dohle Bodies Pelger-Huet Anomaly Demario Rods Platelet Estimate Clumped Platelets Plt Clumps, EDTA Large Platelets Giant Platelets Platelet Satelliting Plt Morphology Comment RBC Morphology Dimorphic RBCs Polychromasia Hypochromasia Poikilocytosis Anisocytosis Microcytosis Macrocytosis Spherocytes Pappenheimer Bodies Sickle Cells Target Cells Tear Drop Cells Ovalocytes Helmet Cells Oliva-[place] Bodies [place] Rings [place] Cells Bite Cells Crenated Cell Elliptocytes Acanthocytes (Spur) Rouleaux Hemoglobin C Crystals Schistocytes Malaria parasites Lico Bodies Hem Pathologist Commnt APTT 50.8 H Heparin Anti-Xa, Unfract Sodium 141 Potassium 5.0 Chloride 109.1 H Carbon Dioxide 27 Anion Gap 10 BUN 86 H Creatinine 2.5 H Estimated GFR 31 BUN/Creatinine Ratio 34 Glucose 140 H POC Glucose 117 H Calcium 6.9 L Total Bilirubin Direct Bilirubin Indirect Bilirubin AST ALT Alkaline Phosphatase Total Protein Albumin Albumin/Globulin Ratio Heparin-induced Plt Ab UF Heparin High Dose DYLAN UFH Low Dose 0.1 DYLAN UFH Low Dose 0.5 Blood Type Antibody Screen Crossmatch Medications & Allergies - Medications Allergies/Adverse Reactions: Allergies No Known Allergies Allergy (Unverified 10/23/20 12:44) Home Medications: Home Medications Medication Instructions Recorded Confirmed Last Taken Type Levothyroxine Sodium 150 mcg PO DAILY 10/31/20 10/31/20 Unknown History [Levothyroxine] carvediloL [Coreg] 6.25 mg PO BID 10/31/20 10/31/20 Unknown History lisinopriL [Lisinopril] 10 mg PO DAILY 10/31/20 10/31/20 Unknown History Active Medications: Generic Name Dose Route Start Last Admin Trade Name Freq PRN Reason Stop Dose Admin Bisacodyl 10 mg 11/08/20 22:00 11/09/20 09:23 Bisacodyl 10 Mg Rect Supp AK 10 mg BID ALEX Administration Dextrose 50 ml 11/08/20 08:04 Dextrose 50% In Water (25gm) 50 Ml Syringe IV Q30MIN PRN Hypoglycemia Protocol Fentanyl 50 mcg 11/03/20 16:46 Fentanyl 100 Mcg/2 Ml Inj IV Q10MIN PRN ANALGESIA Glycerin 1 supp 11/09/20 10:30 Glycerin Adult 2 Gram Rect Supp AK 11/09/20 10:31 ONCE ONE Hydrophilic Ointment 1 applic 11/03/20 16:46 Lip Therapy Vaseline TP Q2HR PRN Dry Lips Fentanyl Citrate 2,000 mcg in 100 mls @ 4.86 mls/hr 11/03/20 17:24 11/09/20 09:14 Fentanyl Drip Premix IV 3 mcg/kg/hr TITR ALEX 14.58 mls/hr Titration Protocol 1 MCG/KG/HR NORepinephrine/NS 8 MG-250 ML 8 mg in 250 mls @ 3.75 mls/hr 11/03/20 18:00 11/09/20 09:53 Norepinephrine/Ns 8 Mg-250 Ml (Double Conc) IV 0 mcg/min TITRATE ALEX 0 mls/hr Titration Protocol 2 MCG/MIN Cefepime HCl 2 gm in 100 mls @ 200 mls/hr 11/08/20 22:00 11/08/20 21:24 Cefepime/Ns 2 Gm/100 Ml IV 200 mls/hr Q24H ALEX Administration Protocol Dextrose/Sodium Chloride 1,000 mls @ 100 mls/hr 11/08/20 17:00 11/09/20 01:12 D5/0.45ns IV 100 mls/hr DIRECT ALEX Administration Propofol 1,000 mg in 100 mls @ 3.126 mls/hr 11/08/20 17:00 11/09/20 09:58 Diprivan 10 Mg/Ml IV 10 mcg/kg/min TITR ALEX 6.252 mls/hr Titration Protocol 5 MCG/KG/MIN Metronidazole 500 mg in 100 mls @ 100 mls/hr 11/08/20 17:00 11/09/20 09:23 Flagyl 500 Mg/100 Ml IV 100 mls/hr Q8H ALEX Administration Protocol Argatroban 250 mg/ Sodium 250 mls @ 3.126 mls/hr 11/08/20 22:00 11/09/20 05:13 Chloride IV 0.5 mcg/kg/min TITR ALEX 3.126 mls/hr Titration Protocol 0.5 MCG/KG/MIN Insulin Human Regular 0 units 11/08/20 09:00 11/09/20 09:23 Insulin Regular, Human 100 Units/1 Ml SUB-Q Not Given Q6H [facility] Protocol Levothyroxine Sodium 75 mcg 11/09/20 06:00 11/09/20 05:19 Levothyroxine 100 Mcg Inj IV 75 mcg DAILY@0600 ALEX Administration Multi-Ingred Cream/Lotion/Oil/Oint 1 applic 11/03/20 16:46 Mineral Oil/Petrolatum, White Ophth Oint 3.5 Gm OU Q4HR PRN Dry Eye(s) Ondansetron HCl 4 mg 10/23/20 20:00 11/07/20 23:09 Ondansetron 4 Mg/2 Ml Inj IV 4 mg Q8H PRN Administration Nausea And Vomiting Pantoprazole Sodium 40 mg 11/07/20 22:00 11/09/20 09:23 Pantoprazole 40 Mg Inj IV 40 mg BID ALEX Administration Sodium Chloride 10 ml 10/23/20 20:00 11/08/20 21:24 Sodium Chloride 0.9% 10 Ml Flush Syringe IV 10 ml PRN PRN Administration LINE FLUSH
[2020-11-09] MEDS ORDERED: GLYCERIN ADULT 2 GRAM RECT SUPP PR ONE (10:30)
[2020-11-09] MEDS: HEPARIN/ 0.45% NACL DRIP 25,000 UNIT/500 ML BAG IV SCH (13:30)
--- NOTE | 2020-11-09 13:34 | Progress Note ---
Assessment and Plan Assessment and plan: This is a 70-year-old male with hypertension and hypothyroidism who was admitted with a CVA (neurology consulted, stroke pathway initiated),CHF, bilateral pneumonia, COVID 19 PUI and acute hypoxic respiratory failure. 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 Acute hypoxic respiratory failure Acute on chronic systolic heart failure with exacerbation Pneumonia Cardiomyopathy Left bundle branch block Leukocytosis Hyperkalemia Hyperchloremia Urinary tract infection Acute right leg thrombosis Acute kidney injury Cardiomyopathy Left atrial appendage thrombus Anemia Hypertension Hypothyroidism -CCM, cardiology, neurology, vascular surgery, nephrology,general surgery, infectious disease, hematology/oncology, GI, surgery, WOCN, ST/PT/OT consulted, appreciate recommendations -10/23 CT head shows no acute findings, periventricular areas of low attenuation suggestive of nonspecific white matter change, concern for acute ischemic change -10/23 CTA chest shows findings suggestive of mild congestive failure, negative for pulmonary embolism -10/23 CT head with contrast shows no indication of intracranial stenosis or large vessel occlusion -10/23 CTA neck shows no indication of hemodynamically significant stenosis the carotid bifurcations are also clear, right larger than left pleural effusion, remote ACDF at C5-C6 and C6-C7 levels, multifocal neuroforaminal narrowing, mild central canal stenosis evident at C5-C6 level -10/23 bilateral carotid ultrasound shows no significant stenosis -10/25 MRI Brain shows acute infarction in the left middle cerebral artery without hemorrhagic conversion -11/02 bilateral lower extremity Doppler ultrasound shows occlusive thrombus in the peroneal vein -11/02 s/p right lower extremity thombectomy with 4 compartment fasciotomy with vascular surgery -11/03 MRI brain shows interval evolutionary changes of the patchy areas of infarction along the left trigonal region, development of 7 mm focus of acute infarction involving more superior left frontoparietal junction -11/04 abdominal x-ray shows persistent abdominal distention -11/04 renal ultrasound shows findings of medical renal disease without other significant sonographic abnormality -11/05 abdominal x-ray shows increasing bowel distention appears to be predominantly in the colon, moderate/large chronic stool with no free air -11/05 CT head shows decreased attenuation along the superior parietal lobe compatible with evolving infarction without intracranial hemorrhage or other acute abnormality/interval changes -11/07 abdominal x-ray shows abundant fecal material noted throughout the colon and rectal vault consistent with history of constipation which are minimally improved when compared to 11/05, gas-filled and distended bowel loops are similar to prior exam -11/07 CT head shows evolving infarcts involving the left temporoparietal to the left frontoparietal lobes since 11/05 -11/08 abdomen/pelvis CT shows mild diffuse dilation of small bowel loops and proximal colon with evidence of pneumatosis concerning for ischemic bowel, small ascites but no evidence of free air or fluid collection, diffuse ileus also suspected, mild cardiomegaly with trace pericardial effusion, few tiny gallstones in the gallbladder with out abnormal dilation or wall thickening. -IV antibiotics -Vasopressor support with Levophed -Aspirin 325, Lipitor, BB(on hold per surgery as pt is strict NPO) -Mechanical ventilation, wean as tolerated, VAP bundle -11/08 transfuse 1 unit PRBC, obtain post transfusion CBC -HIT panel negative -SSI -IV antibiotics -Continue home Synthroid, converted to IV -Hold antihypertensive regimen in setting of hypotension and the use of vasopressors -Fentanyl gtt -D5W gtt -Trend CBC, BMP DVT/GI prophylaxis: SCDs to bilateral extremities while in bed, Protonix Disposition: ICU The high probability of a clinically significant, sudden or life threatening deterioration of the [cardiac, respiratory and hemodynamic] system(s) required my full and direct attention, intervention and personal management. The aggregate critical care time was [32] minutes. This time is in addition to time spent performing reported procedures but includes the following: [x] Data Review and interpretation [x] Patient assessment and monitoring of vital signs [x] Documentation [x] Medication orders and management History Interval history: This is a 70-year-old male with hypertension and hypothyroidism who presented to the emergency department on 10/23 with confusion, weakness, exercise intolerance, shortness of breath on exertion, increased bedbound status and decreased oral intake with progressively worsened over the past 2 days prior to presentation. Patient was found to have clinical symptoms consistent with a CVA (neurology consulted, stroke pathway initiated) CHF, bilateral pneumonia, and acute hypoxic respiratory failure. Patient was initiated coronavirus, pneumonia and CHF protocol. Cardiology was consulted in the emergency department. 10/24/2020: Acute CVA with right hemiparesis , PT and OT 10/25/2020: Acute CVA with right hemiplegia, Rehab consult requested, Ejection fraction is 35 to 40% 10/26/2020:patient with acute CVA and right-sided hemiparesis, PT evaluated the patient and recommended acute rehab, Case management processing the request, Possible discharge in 1 to 2 days if stable 10/27/2020: patient is clinically stable, awaiting rehab/SNF placement. DC planning per Case management., Neuro recommend KELLY[possible embolic CVA] follow KELLY 10/28/20: patient is doing slightly better. No new complain. Clinically stable, Patient is going for KELLY today., DC planning to rehab/SNF when cleared by neurology., DC planning per case management 10/29/20: patient is doing slightly better. No new complain. Clinically stable, continue physical therapy occupational therapy, Patient is going for KELLY on Sunday, DC planning to rehab/SNF after KELLY on Sunday, DC planning per case management 10/30/20: patient is sitting in chair. No new complain. Clinically stable, continue physical therapy occupational therapy, Patient is going for KELLY on Sunday, Awaiting DC planning to rehab/SNF after KELLY on Sunday. 10/31/20: patient is seen and examined. No new complain. Clinically stable, continue physical therapy occupational therapy., Patient is going for KELLY on Sunday., Awaiting DC planning to rehab/SNF after KELLY on Sunday. 11/01/20: Patient is seen and examined, Patient with acute CVA and right-sided hemiparesis. Patient is evaluated by PT and recommended acute rehab Patient is going for KELLY today, Patient is waiting for DC planning to rehab/SNF after KELLY. 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 Patient has chosen [facility] and awaiting authorization. 11/02/2020. KELLY revealed left atrial appendage thrombus. Mildly dilated left ventricle with mild left ventricular hypertrophy with moderate global left ventricular hypokinesis with EF of 40 to 45%. Anticoagulation per cardiology recommendations. Physical therapy recommendations for acute rehab. 11/03/2020. Patient appears to have worsening aphasia and worsening right-sided weakness today per neurology. MRI brain stat. Leukocytosis likely leukemoid reaction from compartment syndrome. Patient is s/p right lower extremity thombectomy with 4 compartment fasciotomy yesterday. Bleeding from incisions over night. Consider ID consultation. Start empiric antibiotics. 11/04/2020. Patient decompensated yesterday evening with hypotension and worsening mental status. Patient was started on vasopressors and intubated. Patient is currently intubated and on fentanyl for sedation. Patient with worsening leukocytosis. Lactic acidosis likely secondary to compartment syndrome. Patient is s/p right lower extremity thombectomy with 4 compartment fasciotomy on 11/02/2020. Levaquin started empirically yesterday. ID consultation today. Patient also with worsening creatinine secondary to acute kidney injury. 11/05/2020. Patient attempted to pull out his ETT while I was examining him. Continue restraints for safety. Patient did manage to pull out his Winkler cat heter and now has hematuria. We will irrigate the bladder and monitor closely patient is on anticoagulation with IV heparin. Continue Levophed drip to maintain MAP >65. Patient currently with mechanical ventilation AC mode rate of 12, tidal volume 500, FiO2 30% and a PEEP of 6. Continue fentanyl for sedation. Consult hematology hypercoagulable state given the arterial and venous thrombi. 11/06/2020. Hematology ordered argatroban and steroid pulse therapy. Follow work-up to rule out HIT. Follow-up pF4 Ab testing, Hgb electrophoresis, cardiolipin ab. Continue Levophed drip to maintain MAP >65. Patient currently with mechanical ventilation AC mode rate of 12, tidal volume 500, FiO2 30% and a PEEP of 6. Continue fentanyl for sedation. Continue antibiotics of cefepime and vancomycin. Sputum, blood and urine cultures are negative. Continue restraints for safety. 11/07/2020. Continue steroid pulse therapy per hematology recommendations. Argatroban on hold for GI bleeding and hematuria. Follow-up HIT panel and pF4 Ab testing, Hgb electrophoresis, cardiolipin ab. Continue Levophed drip to maintain MAP >65. Patient currently with mechanical ventilation AC mode rate of 12, tidal volume 500, FiO2 30% and a PEEP of 6. Continue fentanyl for sedation. Continue antibiotics of cefepime and vancomycin. Sputum, blood and urine cultures are negative. Continue restraints for safety. 11/08: CT abd/pelvis obtained today is concerning for ischemic bowels, surgery was consulted. This morning patient was on CPAP trial 03/30 at the time my examination patient is on vasopressor support with Levophed and his HIT panel is pending. He was sedated on 1 mcg of fentanyl. Lab work this morning shows leukocytosis, anemia (transfuse 1 unit PRBC), hyperkalemia (received D50 and ins ulin), hypochloremia and increasing BUN/creatinine. 11/09: S/p ex lap and small bowel resection on 11/08 with surgery, patient was restarted argatroban drip per surgery, HIT panel negative. CCM will start on low-dose heparin drip. Patient was given 2 g of calcium for his K 5 by nephrology. Surgery plans to return to the OR tomorrow for reexploration with possible anastomosis abdominal culture. At the time of my examination he is sedated on propofol, fentanyl and ventilator support with Levophed. Patient is on assist control tidal line 500, rate 18, PEEP of 6, FiO2 25%. Hospitalist Physical - Constitutional Vitals: Temp Pulse Resp BP Pulse Ox 98.2 F 66 10 L 82/58 100 11/09/20 12:00 11/09/20 11:30 11/09/20 11:30 11/09/20 11:30 11/09/20 11:30 General appearance: Present: other (Intubated, sedated) - EENT Eyes: Present: PERRL - Neck Neck: Present: normal ROM - Respiratory Respiratory effort: normal Respiratory: bilateral: diminished - Cardiovascular Rhythm: regular Heart Sounds: Present: S1 & S2. Absent: systolic murmur, diastolic murmur - Extremities Extremities: no ischemia, pulses intact, pulses symmetrical, normal temperature, normal color Extremity abnormal: edema Peripheral Pulses: within normal limits - Abdominal General gastrointestinal: soft, non-distended, hypoactive bowel sounds - Integumentary Integumentary: Present: warm, dry - Psychiatric Psychiatric: other (sedated) - Neurologic Neurologic: other (sedated) - Allied Health Allied health notes reviewed: nursing, RT, social work HEART Score - HEART Score Troponin: Troponin T 0.026 ng/mL (0.00-0.029) 10/23/20 16:39 Results - Labs CBC & Chem 7: 11/09/20 03:21 11/09/20 03:21 Labs: Laboratory Last Values WBC 19.0 K/mm3 (4.5-11.0) H 11/09/20 03:21 RBC 2.51 M/mm3 (3.65-5.03) L 11/09/20 03:21 Hgb 7.5 gm/dl (11.8-15.2) L 11/09/20 03:21 Hct 22.2 % (35.5-45.6) L 11/09/20 03:21 MCV 88 fl (84-94) 11/09/20 03:21 MCH 30 pg (28-32) 11/09/20 03:21 MCHC 34 % (32-34) 11/09/20 03:21 RDW 15.3 % (13.2-15.2) H 11/09/20 03:21 Plt Count 152 K/mm3 (140-440) 11/09/20 03:21 Lymph % (Auto) 27.8 % (13.4-35.0) 10/23/20 13:32 [place] % (Auto) 6.0 % (0.0-7.3) 10/23/20 13:32 Eos % (Auto) 1.6 % (0.0-4.3) 10/23/20 13:32 Baso % (Auto) 0.7 % (0.0-1.8) 10/23/20 13:32 Lymph # (Auto) 1.5 K/mm3 (1.2-5.4) 10/23/20 13:32 [place] # (Auto) 0.3 K/mm3 (0.0-0.8) 10/23/20 13:32 Eos # (Auto) 0.1 K/mm3 (0.0-0.4) 10/23/20 13:32 Baso # (Auto) 0.0 K/mm3 (0.0-0.1) 10/23/20 13:32 Add Manual Diff Complete 11/09/20 03:21 Total Counted 100 11/09/20 03:21 Seg Neutrophils % Bander Hand 11/09/20 03:21 Seg Neuts % (Manual) 89.0 % (40.0-70.0) H 11/09/20 03:21 Lymphocytes % (Manual) 6.0 % (13.4-35.0) L 11/09/20 03:21 Monocytes % (Manual) 5.0 % (0.0-7.3) 11/09/20 03:21 Metamyelocytes % 1.0 % 11/04/20 04:00 Nucleated RBC % Not Reportable 11/09/20 03:21 Seg Neutrophils # 3.4 K/mm3 (1.8-7.7) 10/23/20 13:32 Seg Neutrophils # Man 16.9 K/mm3 (1.8-7.7) H 11/09/20 03:21 Band Neutrophils # 0.0 K/mm3 11/09/20 03:21 Lymphocytes # (Manual) 1.1 K/mm3 (1.2-5.4) L 11/09/20 03:21 Abs React Lymphs (Man) 0.0 K/mm3 11/09/20 03:21 Monocytes # (Manual) 1.0 K/mm3 (0.0-0.8) H 11/09/20 03:21 Eosinophils # (Manual) 0.0 K/mm3 (0.0-0.4) 11/09/20 03:21 Basophils # (Manual) 0.0 K/mm3 (0.0-0.1) 11/09/20 03:21 Metamyelocytes # 0.0 K/mm3 11/09/20 03:21 Myelocytes # 0.0 K/mm3 11/09/20 03:21 Promyelocytes # 0.0 K/mm3 11/09/20 03:21 Blast Cells # 0.0 K/mm3 11/09/20 03:21 WBC Morphology Not Reportable 11/09/20 03:21 Hypersegmented Neuts Not Reportable 11/09/20 03:21 Hyposegmented Neuts Not Reportable 11/09/20 03:21 Hypogranular Neuts Not Reportable 11/09/20 03:21 Smudge Cells Not Reportable 11/09/20 03:21 Toxic Granulation Not Reportable 11/09/20 03:21 Toxic Vacuolation Not Reportable 11/09/20 03:21 Dohle Bodies Not Reportable 11/09/20 03:21 Pelger-Huet Anomaly Not Reportable 11/09/20 03:21 Demario Rods Not Reportable 11/09/20 03:21 Platelet Estimate Consistent w auto 11/09/20 03:21 Clumped Platelets Not Reportable 11/09/20 03:21 Plt Clumps, EDTA Not Reportable 11/09/20 03:21 Large Platelets Not Reportable 11/09/20 03:21 Giant Platelets Not Reportable 11/09/20 03:21 Platelet Satelliting Not Reportable 11/09/20 03:21 Plt Morphology Comment Not Reportable 11/09/20 03:21 RBC Morphology Not Reportable 11/09/20 03:21 Dimorphic RBCs Not Reportable 11/09/20 03:21 Polychromasia Not Reportable 11/09/20 03:21 Hypochromasia 1+ 11/09/20 03:21 Poikilocytosis Not Reportable 11/09/20 03:21 Anisocytosis 1+ 11/09/20 03:21 Microcytosis Not Reportable 11/09/20 03:21 Macrocytosis Not Reportable 11/09/20 03:21 Spherocytes Not Reportable 11/09/20 03:21 Pappenheimer Bodies Not Reportable 11/09/20 03:21 Sickle Cells Not Reportable 11/09/20 03:21 Target Cells Not Reportable 11/09/20 03:21 Tear Drop Cells Not Reportable 11/09/20 03:21 Ovalocytes Not Reportable 11/09/20 03:21 Helmet Cells Not Reportable 11/09/20 03:21 [place] Bodies Not Reportable 11/09/20 03:21 [place] Rings Not Reportable 11/09/20 03:21 [place] Cells Not Reportable 11/09/20 03:21 Bite Cells Not Reportable 11/09/20 03:21 Crenated Cell Not Reportable 11/09/20 03:21 Elliptocytes Not Reportable 11/09/20 03:21 Acanthocytes (Spur) Not Reportable 11/09/20 03:21 Rouleaux Not Reportable 11/09/20 03:21 Hemoglobin C Crystals Not Reportable 11/09/20 03:21 Schistocytes Not Reportable 11/09/20 03:21 Malaria parasites Not Reportable 11/09/20 03:21 Lico Bodies Not Reportable 11/09/20 03:21 Hem Pathologist Commnt No 11/09/20 03:21 PT 16.2 Sec. (12.2-14.9) H 11/02/20 19:55 INR 1.30 (0.87-1.13) H 11/02/20 19:55 APTT 50.8 Sec. (24.2-36.6) H 11/09/20 03:21 D-Dimer 4139.61 ng/mlDDU (0-234) H 10/23/20 18:23 Heparin Anti-Xa Level 0.43 U.I./ml (0.3-0.7) 11/05/20 11:30 Heparin Anti-Xa, Unfract Negative (Negative) 11/06/20 Unknown ABG pH 7.494 (7.320-7.450) H 11/08/20 03:38 POC ABG pCO2 36.6 mmHg (32.0-48.0) 11/08/20 03:38 POC ABG pO2 111.5 mmHg (83-108) H 11/08/20 03:38 POC ABG HCO3 27.5 11/08/20 03:38 ABG O2 Saturation 98.4 (0-100) 11/08/20 03:38 POC ABG Base Excess 3.9 11/08/20 03:38 ABG Hemoglobin 6.7 (12.0-17.5) L 11/08/20 03:38 ABG Oxyhemoglobin 97.0 (94-98) 11/08/20 03:38 ABG Methemoglobin 0.3 (0.0-1.5) 11/08/20 03:38 ABG Sodium 141.1 mmol/L (136.0-145.0) 11/08/20 03:38 ABG Potassium 4.9 mmol/L (3.40-4.50) H 11/08/20 03:38 ABG Chloride 112.0 mmol/L (98-107) H 11/08/20 03:38 ABG Glucose 153 mg/dL (65-95) H 11/08/20 03:38 Carboxyhemoglobin 1.1 (0.5-1.5) 11/08/20 03:38 FiO2 % 25.0 11/08/20 03:38 Sodium 141 mmol/L (137-145) 11/09/20 03:21 Potassium 5.0 mmol/L (3.6-5.0) 11/09/20 03:21 Chloride 109.1 mmol/L (98-107) H 11/09/20 03:21 Carbon Dioxide 27 mmol/L (22-30) 11/09/20 03:21 Anion Gap 10 mmol/L 11/09/20 03:21 BUN 86 mg/dL (9-20) H 11/09/20 03:21 Creatinine 2.5 mg/dL (0.8-1.3) H 11/09/20 03:21 Estimated GFR 31 ml/min 11/09/20 03:21 BUN/Creatinine Ratio 34 % 11/09/20 03:21 Glucose 140 mg/dL (75-100) H 11/09/20 03:21 POC Glucose 97 mg/dL (70-105) 11/09/20 11:38 Lactic Acid 1.30 mmol/L (0.7-2.0) 11/04/20 13:01 Calcium 6.9 mg/dL (8.4-10.2) L 11/09/20 03:21 Magnesium 2.20 mg/dL (1.7-2.3) 10/23/20 20:33 Ferritin 238.5 ng/mL (30.0-300.0) 10/23/20 18:23 Total Bilirubin 0.50 mg/dL (0.1-1.2) 11/08/20 19:11 Direct Bilirubin < 0.2 mg/dL (0-0.2) 11/08/20 19:11 Indirect Bilirubin 0.3 mg/dL 11/08/20 19:11 AST 21 units/L (5-40) 11/08/20 19:11 ALT 27 units/L (7-56) 11/08/20 19:11 Alkaline Phosphatase 41 units/L (35-129) 11/08/20 19:11 Lactate Dehydrogenase 334 units/L (91-180) H 10/23/20 18:23 Troponin T 0.026 ng/mL (0.00-0.029) 10/23/20 16:39 C-Reactive Protein 8.30 mg/dL (0.00-1.30) H 11/04/20 13:01 NT-Pro-B Natriuret Pep 5806 pg/mL (0-900) H 10/23/20 13:32 Total Protein 3.8 g/dL (6.3-8.2) L 11/08/20 19:11 Albumin 2.2 g/dL (3.9-5) L 11/08/20 19:11 Albumin/Globulin Ratio 1.4 % 11/08/20 19:11 Triglycerides 60 mg/dL (2-149) 10/24/20 09: Cholesterol 139 mg/dL (50-199) 10/24/20 09: LDL Cholesterol Direct 87 mg/dL (50-130) 10/24/20 09: HDL Cholesterol 46 mg/dL (40-59) 10/24/20 09: Cholesterol/HDL Ratio 3.02 % 10/24/20 09: Procalcitonin 0.99 ng/mL (<0.15) 11/03/20 21:14 TSH 6.540 mlU/mL (0.270-4.200) H 10/23/20 18:23 TSH 7.100 mlU/mL (0.270-4.200) H 10/23/20 18: Free T4 1.33 ng/dL (0.76-1.46) 10/23/20 18:23 Arterial Blood Glucose 153 mg/dL (65-95) H 11/08/20 03:38 Arterial Blood Ionized Calcium 4.5 mg/dL (4.6-5.3) L 11/08/20 03:38 Urine Color Yellow (Yellow) 11/04/20 11:00 Urine Turbidity Hazy (Clear) 11/04/20 11:00 Urine pH 5.0 (5.0-7.0) 11/04/20 11:00 Ur Specific [place] 1.017 (1.003-1.030) 11/04/20 11:00 Urine Protein 30 mg/dl mg/dL (Negative) 11/04/20 11:00 Urine Glucose (UA) 50 mg/dL (Negative) 11/04/20 11:00 Urine Ketones Neg mg/dL (Negative) 11/04/20 11:00 Urine Blood Neg (Negative) 11/04/20 11:00 Urine Nitrite Neg (Negative) 11/04/20 11:00 Urine Bilirubin Neg (Negative) 11/04/20 11:00 Urine Urobilinogen < 2.0 mg/dL (<2.0) 11/04/20 11:00 Ur Leukocyte Esterase Tr (Negative) 11/04/20 11:00 Urine WBC (Auto) 19.0 /HPF (0.0-6.0) H 11/04/20 11:00 Urine RBC (Auto) 3.0 /HPF (0.0-6.0) 11/04/20 11:00 U Epithel Cells (Auto) < 1.0 /HPF (0-13.0) 11/04/20 11:00 Urine Mucus Few /HPF 11/04/20 11:00 Urine Eosinophils None seen (None Seen) 11/04/20 12:50 Urine Creatinine < 4.2 mg/dL (0.1-20.0) 11/04/20 12:50 Urine Sodium 10 mmol/L 11/04/20 12:50 Random Vancomycin 10.7 ug/mL (0-40.0) 11/08/20 04:39 Heparin-induced Plt Ab Negative (Negative) 11/06/20 Unknown UF Heparin High Dose 0 % Release 11/06/20 Unknown DYLAN UFH Low Dose 0.1 0 % Release 11/06/20 Unknown DYLAN UFH Low Dose 0.5 0 % Release 11/06/20 Unknown Coronavirus (PCR) Negative (Negative) 10/24/20 09:57 Blood Type O POSITIVE 11/08/20 11:15 Antibody Screen Negative 11/08/20 11:15 Crossmatch See Detail 11/08/20 11:15 Microbiology: Microbiology 11/04/20 13:01 Peripheral/Venous Blood Culture - Final NO GROWTH AFTER 5 DAYS 11/04/20 13:01 Peripheral/Venous Blood Culture - Final NO GROWTH AFTER 5 DAYS Winkler/IV: Voiding Method Indwelling Catheter Active Medications - Current Medications Current Medications: Generic Name Dose Route Start Last Admin Trade Name Freq PRN Reason Stop Dose Admin Bisacodyl 10 mg 11/08/20 22:00 11/09/20 09:23 Bisacodyl 10 Mg Rect Supp IA 10 mg BID ALEX Administration Dextrose 50 ml 11/08/20 08:04 Dextrose 50% In Water (25gm) 50 Ml Syringe IV Q30MIN PRN Hypoglycemia Protocol Fentanyl 50 mcg 11/03/20 16:46 Fentanyl 100 Mcg/2 Ml Inj IV Q10MIN PRN ANALGESIA Hydrophilic Ointment 1 applic 11/03/20 16:46 Lip Therapy Vaseline TP Q2HR PRN Dry Lips Fentanyl Citrate 2,000 mcg in 100 mls @ 4.86 mls/hr 11/03/20 17:24 11/09/20 12:07 Fentanyl Drip Premix IV 3 mcg/kg/hr TITR ALEX 14.58 mls/hr Administration Protocol 1 MCG/KG/HR NORepinephrine/NS 8 MG-250 ML 8 mg in 250 mls @ 3.75 mls/hr 11/03/20 18:00 11/09/20 10:52 Norepinephrine/Ns 8 Mg-250 Ml (Double Conc) IV 2 mcg/min TITRATE ALEX 3.75 mls/hr Titration Protocol 2 MCG/MIN Cefepime HCl 2 gm in 100 mls @ 200 mls/hr 11/08/20 22:00 11/08/20 21:24 Cefepime/Ns 2 Gm/100 Ml IV 200 mls/hr Q24H ALEX Administration Protocol Dextrose/Sodium Chloride 1,000 mls @ 100 mls/hr 11/08/20 17:00 11/09/20 01:12 D5/0.45ns IV 100 mls/hr DIRECT ALEX Administration Propofol 1,000 mg in 100 mls @ 3.126 mls/hr 11/08/20 17:00 11/09/20 09:58 Diprivan 10 Mg/Ml IV 10 mcg/kg/min TITR ALEX 6.252 mls/hr Titration Protocol 5 MCG/KG/MIN Metronidazole 500 mg in 100 mls @ 100 mls/hr 11/08/20 17:00 11/09/20 09:23 Flagyl 500 Mg/100 Ml IV 100 mls/hr Q8H [facility] Administration Protocol Heparin Sodium/Sodium Chloride 25,000 unit in 500 mls @ 30 mls/hr 11/09/20 13:00 Heparin/ 0.45% Nacl-25,000 Unit/500 Ml IV TITR ALEX Protocol 1,500 UNITS/HR Insulin Human Regular 0 units 11/08/20 09:00 11/09/20 09:23 Insulin Regular, Human 100 Units/1 Ml SUB-Q Not Given Q6H [facility] Protocol Levothyroxine Sodium 75 mcg 11/09/20 06:00 11/09/20 05:19 Levothyroxine 100 Mcg Inj IV 75 mcg DAILY@0600 [facility] Administration Multi-Ingred Cream/Lotion/Oil/Oint 1 applic 11/03/20 16:46 Mineral Oil/Petrolatum, White Ophth Oint 3.5 Gm OU Q4HR PRN Dry Eye(s) Ondansetron HCl 4 mg 10/23/20 20:00 11/07/20 23:09 Ondansetron 4 Mg/2 Ml Inj IV 4 mg Q8H PRN Administration Nausea And Vomiting Pantoprazole Sodium 40 mg 11/07/20 22:00 11/09/20 09:23 Pantoprazole 40 Mg Inj IV 40 mg BID ALEX Administration Sodium Chloride 10 ml 10/23/20 20:00 11/08/20 21:24 Sodium Chloride 0.9% 10 Ml Flush Syringe IV 10 ml PRN PRN Administration LINE FLUSH Nutrition/Malnutrition Assess - Dietary Evaluation Nutrition/Malnutrition Findings: Nutrition Notes Start: 10/24/20 11:33 Freq: Status: Active Protocol: Document 11/04/20 13:14 AL (Rec: 11/04/20 13:25 AL [id number]) Co-Sign 11/04/20 13:14 LP Nutrition Notes Need for Assessment generated from: MD Order Initial or Follow up Reassessment Current Diagnosis Acute Kidney Injury, Hypertension,Heart Failure, Respiratory Failure,Stroke Other Pertinent Diagnosis pneu Current Diet Cardiac Diet Labs/Tests K 5.7 BUN 57 Cr 2.3 Pertinent Medications Norepinephine 4.86 ml/hr NS at 125 ml/h Colace Solumedrol Height 5 ft 11 in Weight 97.2 kg [place] Body Weight (kg) 78.18 BMI 29.9 Intake Prior to Admission Poor Weight Status Overweight Subjective/Other Information MD order for write/manage TF. Pt has high K lab values and has an STACEY. Pt. s/p open thrombectomy of right leg and fasciotomy. Will calculate Nepro TF. Burn Absent Trauma Absent Current % PO Negligible Minimum of two criteria No physical signs of malnutrition #2 Nutrition Diagnosis Inadequate oral intake Etiology Respiratory failure As Evidenced by Signs and Symptoms Pt intubated and unable to consume PO Is patient on ventilator? Yes Is Patient Ambulatory and/or Out of Bed No REE-([facility]-confined to bed) 1393.500 Additional Notes Protein: 116-195 g (1.2-2.0 g/ kg ABW) Fluid: 1 ml/kcal Nutrition Intervention Change Diet Order: Start TF Nutrition Support: Start Nepro 1.8 at 25 ml/hr and increase by 10 ml q8h until 45 ml (goal rate) is reached. Flush 150 ml q4h Kcal 1,944 Protein (gm) 88 Fluid (mL) 786 Goal #1 Meet at least 75% of energy and protein needs via TF Goal #2 TF tolerance. Anticipated Discharge Needs: Unable to determine at the moment. Follow-Up By: 11/05/20 Additional Comments FU for new TF, vent status, and renal labs.
--- NOTE | 2020-11-09 15:31 | Progress Note ---
Assessment and Plan Cultures: Sputum culture 11/03/2020 upper respiratory mechelle Urine culture 11/04/2020 negative Blood culture 11/04/2020 no growth today Tracheal aspirate 11/04/2020 no growth today Assessment: 70-year-old male with history of hypertension, hypothyroidism, admitted on 10/23/2020 secondary to 2-day history of acute altered mental status with confusion and diminished cognition; noted to have a left MCA CVA and right leg acute thrombosis, now with worsening leukocytosis and on pressors: #Severe sepsis with septic shock: Not present on admission. Remains pressors but improving, leukocytosis is high 33K-->28.9K; etiology unclear ?UTI. Likely secondary to acute thrombus of the right lower extremity complicated with compartment syndrome +/- UTI. Chest x-ray without any obvious pneumonia. #UTI urinalysis with mild pyuria. #Acute CVA: MRI with acute infarction of the left MCA, repeat MRI with evolving changes. Neurology on board. #Acute right leg thromboses: Complicated with compartment syndrome s/p open thrombectomy of the right lower extremity and right lower extremity compartment syndrome fasciotomy on 11/02/2020. #STACEY: creat up. Renally adjust antibiotics. #Acute respiratory failure: Intubated overnight. Chest x-ray with pulmonary edema. Elevated BNP. CT chest shows small pericardial effusion, small bilateral pleural effusion, bilateral interstitial disease. SARS-CoV-2 PCR negative. #Cardiomyopathy: EF 35 to 40%. #Left atrial appendage thrombus: Patient was on heparin drip, currently on hold due to surgical wound bleeding #Anemia Recommendations: -Follow-up blood culture, urinalysis, respiratory cultures -No need to treat Neisha in the sputum -Continue cefepime IV renally adjusted D7, continue metronidazole. -Remove Winkler catheter when possible Will follow. Suzan Campbell MD [facility] ([facility] O: [phone] F: [phone] Subjective Date of service: 11/09/20 Principal diagnosis: CVA, Atrial Thrombus, Acute Limb Ischemia, ?GIB Interval history: Afebrile, white count continues to improve now 19. Objective - Exam Narrative Exam: General appearance: Sedated, intubated, currently alert Eyes: anicteric sclerae, moist conjunctivae; no lid-lag HENT: Normocephalic, Atraumatic; normal external ears, nares open, endotracheal tube and NG tube in place Neck: supple, tracheal midline, no JVD Lungs: Coarse breath sound bilaterally CV: RRR no murmur Abdomen: Firm, distended Extremities: Marked right leg edema with fasciotomy wounds bleeding Skin: Right groin surgical wound with clots Psych: Sedated Neuro: Sedated, nares open Winkler in place - Constitutional Vitals: Vital Signs Temp Pulse Resp BP Pulse Ox 98.2 F 69 11 L 111/64 100 11/09/20 12:00 11/09/20 15:21 11/09/20 14:00 11/09/20 15:21 11/09/20 15:21 Temperature -Last 24 Hours Temperature 98.2 F Temperature 97.6 F Temperature 97.9 F Temperature 97.7 F Temperature 97.7 F Temperature 97.4 F Temperature 98.1 F Temperature 97.9 F - Labs CBC & Chem 7: 11/09/20 03:21 11/09/20 03:21 Labs: Abnormal lab results 11/08/20 11/08/20 11/08/20 Range/Units 11:15 16:30 19:11 WBC (4.5-11.0) K/mm3 RBC (3.65-5.03) M/mm3 Hgb 8.0 L (11.8-15.2) gm/dl Hct 23.6 L (35.5-45.6) % RDW (13.2-15.2) % Seg Neuts % (Manual) (40.0-70.0) % Lymphocytes % (Manual) (13.4-35.0) % Seg Neutrophils # Man (1.8-7.7) K/mm3 Lymphocytes # (Manual) (1.2-5.4) K/mm3 Monocytes # (Manual) (0.0-0.8) K/mm3 APTT (24.2-36.6) Sec. Chloride (98-107) mmol/L BUN (9-20) mg/dL Creatinine (0.8-1.3) mg/dL Glucose (75-100) mg/dL POC Glucose (70-105) mg/dL Calcium (8.4-10.2) mg/dL Total Protein 3.8 L (6.3-8.2) g/dL Albumin 2.2 L (3.9-5) g/dL Crossmatch See Detail 11/08/20 11/09/20 11/09/20 Range/Units 22:20 03:21 03:21 WBC 19.0 H (4.5-11.0) K/mm3 RBC 2.51 L (3.65-5.03) M/mm3 Hgb 7.5 L (11.8-15.2) gm/dl Hct 22.2 L (35.5-45.6) % RDW 15.3 H (13.2-15.2) % Seg Neuts % (Manual) 89.0 H (40.0-70.0) % Lymphocytes % (Manual) 6.0 L (13.4-35.0) % Seg Neutrophils # Man 16.9 H (1.8-7.7) K/mm3 Lymphocytes # (Manual) 1.1 L (1.2-5.4) K/mm3 Monocytes # (Manual) 1.0 H (0.0-0.8) K/mm3 APTT (24.2-36.6) Sec. Chloride 109.1 H (98-107) mmol/L BUN 86 H (9-20) mg/dL Creatinine 2.5 H (0.8-1.3) mg/dL Glucose 140 H (75-100) mg/dL POC Glucose 107 H (70-105) mg/dL Calcium 6.9 L (8.4-10.2) mg/dL Total Protein (6.3-8.2) g/dL Albumin (3.9-5) g/dL Crossmatch 11/09/20 11/09/20 11/09/20 Range/Units 03:21 03:43 09:22 WBC (4.5-11.0) K/mm3 RBC (3.65-5.03) M/mm3 Hgb (11.8-15.2) gm/dl Hct (35.5-45.6) % RDW (13.2-15.2) % Seg Neuts % (Manual) (40.0-70.0) % Lymphocytes % (Manual) (13.4-35.0) % Seg Neutrophils # Man (1.8-7.7) K/mm3 Lymphocytes # (Manual) (1.2-5.4) K/mm3 Monocytes # (Manual) (0.0-0.8) K/mm3 APTT 50.8 H (24.2-36.6) Sec. Chloride (98-107) mmol/L BUN (9-20) mg/dL Creatinine (0.8-1.3) mg/dL Glucose (75-100) mg/dL POC Glucose 117 H 111 H (70-105) mg/dL Calcium (8.4-10.2) mg/dL Total Protein (6.3-8.2) g/dL Albumin (3.9-5) g/dL Crossmatch
--- NOTE | 2020-11-09 15:49 | Gastroenterology Progress Note ---
Assessment and Plan GI: pt s/p partial resection for pnematosis - post-op management per surgery - no need GI input at this time - call if needed Subjective Date of service: 11/09/20 Principal diagnosis: CVA, Atrial Thrombus, Acute Limb Ischemia, ?GIB Interval history: event of surgery reviewed, pt intubated, stable Objective - Constitutional Vitals: Temp Pulse Resp BP Pulse Ox 98.2 F 69 11 L 111/64 100 11/09/20 12:00 11/09/20 15:21 11/09/20 14:00 11/09/20 15:21 11/09/20 15:21 General appearance: no acute distress - EENT Eyes: PERRL - Respiratory Respiratory: bilateral: rhonchi - Cardiovascular Rhythm: regular Heart Sounds: Present: S1 & S2 - Gastrointestinal General gastrointestinal: Present: soft, non-tender, non-distended - Labs CBC & Chem 7: 11/09/20 03:21 11/09/20 03:21 Labs: Laboratory Results - last 24 hr 11/06/20 11/08/20 11/08/20 Unknown 11:15 16:30 WBC RBC Hgb 8.0 L Hct 23.6 L MCV MCH MCHC RDW Plt Count Add Manual Diff Total Counted Seg Neutrophils % Seg Neuts % (Manual) Lymphocytes % (Manual) Monocytes % (Manual) Nucleated RBC % Seg Neutrophils # Man Band Neutrophils # Lymphocytes # (Manual) Abs React Lymphs (Man) Monocytes # (Manual) Eosinophils # (Manual) Basophils # (Manual) Metamyelocytes # Myelocytes # Promyelocytes # Blast Cells # WBC Morphology Hypersegmented Neuts Hyposegmented Neuts Hypogranular Neuts Smudge Cells Toxic Granulation Toxic Vacuolation Dohle Bodies Pelger-Huet Anomaly Demario Rods Platelet Estimate Clumped Platelets Plt Clumps, EDTA Large Platelets Giant Platelets Platelet Satelliting Plt Morphology Comment RBC Morphology Dimorphic RBCs Polychromasia Hypochromasia Poikilocytosis Anisocytosis Microcytosis Macrocytosis Spherocytes Pappenheimer Bodies Sickle Cells Target Cells Tear Drop Cells Ovalocytes Helmet Cells Oliva-[place] Bodies [place] Rings [place] Cells Bite Cells Crenated Cell Elliptocytes Acanthocytes (Spur) Rouleaux Hemoglobin C Crystals Schistocytes Malaria parasites Lico Bodies Hem Pathologist Commnt APTT Heparin Anti-Xa, Unfract Negative Sodium Potassium Chloride Carbon Dioxide Anion Gap BUN Creatinine Estimated GFR BUN/Creatinine Ratio Glucose POC Glucose Calcium Total Bilirubin Direct Bilirubin Indirect Bilirubin AST ALT Alkaline Phosphatase Total Protein Albumin Albumin/Globulin Ratio Heparin-induced Plt Ab Negative UF Heparin High Dose 0 DYLAN UFH Low Dose 0.1 0 DYLAN UFH Low Dose 0.5 0 Blood Type O POSITIVE Antibody Screen Negative Crossmatch See Detail 11/08/20 11/08/20 11/08/20 17:43 19:11 22:20 WBC RBC Hgb Hct MCV MCH MCHC RDW Plt Count Add Manual Diff Total Counted Seg Neutrophils % Seg Neuts % (Manual) Lymphocytes % (Manual) Monocytes % (Manual) Nucleated RBC % Seg Neutrophils # Man Band Neutrophils # Lymphocytes # (Manual) Abs React Lymphs (Man) Monocytes # (Manual) Eosinophils # (Manual) Basophils # (Manual) Metamyelocytes # Myelocytes # Promyelocytes # Blast Cells # WBC Morphology Hypersegmented Neuts Hyposegmented Neuts Hypogranular Neuts Smudge Cells Toxic Granulation Toxic Vacuolation Dohle Bodies Pelger-Huet Anomaly Demario Rods Platelet Estimate Clumped Platelets Plt Clumps, EDTA Large Platelets Giant Platelets Platelet Satelliting Plt Morphology Comment RBC Morphology Dimorphic RBCs Polychromasia Hypochromasia Poikilocytosis Anisocytosis Microcytosis Macrocytosis Spherocytes Pappenheimer Bodies Sickle Cells Target Cells Tear Drop Cells Ovalocytes Helmet Cells Oliva-[place] Bodies [place] Rings Caryn Cells Bite Cells Crenated Cell Elliptocytes Acanthocytes (Spur) Rouleaux Hemoglobin C Crystals Schistocytes Malaria parasites Lico Bodies Hem Pathologist Commnt APTT Heparin Anti-Xa, Unfract Sodium Potassium Chloride Carbon Dioxide Anion Gap BUN Creatinine Estimated GFR BUN/Creatinine Ratio Glucose POC Glucose 94 107 H Calcium Total Bilirubin 0.50 Direct Bilirubin < 0.2 Indirect Bilirubin 0.3 AST 21 ALT 27 Alkaline Phosphatase 41 Total Protein 3.8 L Albumin 2.2 L Albumin/Globulin Ratio 1.4 Heparin-induced Plt Ab UF Heparin High Dose DYLAN UFH Low Dose 0.1 DYLAN UFH Low Dose 0.5 Blood Type Antibody Screen Crossmatch 11/09/20 11/09/20 11/09/20 03:21 03:21 03:21 WBC 19.0 H RBC 2.51 L Hgb 7.5 L Hct 22.2 L MCV 88 MCH 30 MCHC 34 RDW 15.3 H Plt Count 152 Add Manual Diff Complete Total Counted 100 Seg Neutrophils % Accounts Officer Seg Neuts % (Manual) 89.0 H Lymphocytes % (Manual) 6.0 L Monocytes % (Manual) 5.0 Nucleated RBC % Not Reportable Seg Neutrophils # Man 16.9 H Band Neutrophils # 0.0 Lymphocytes # (Manual) 1.1 L Abs React Lymphs (Man) 0.0 Monocytes # (Manual) 1.0 H Eosinophils # (Manual) 0.0 Basophils # (Manual) 0.0 Metamyelocytes # 0.0 Myelocytes # 0.0 Promyelocytes # 0.0 Blast Cells # 0.0 WBC Morphology Not Reportable Hypersegmented Neuts Not Reportable Hyposegmented Neuts Not Reportable Hypogranular Neuts Not Reportable Smudge Cells Not Reportable Toxic Granulation Not Reportable Toxic Vacuolation Not Reportable Dohle Bodies Not Reportable Pelger-Huet Anomaly Not Reportable Demario Rods Not Reportable Platelet Estimate Consistent w auto Clumped Platelets Not Reportable Plt Clumps, EDTA Not Reportable Large Platelets Not Reportable Giant Platelets Not Reportable Platelet Satelliting Not Reportable Plt Morphology Comment Not Reportable RBC Morphology Not Reportable Dimorphic RBCs Not Reportable Polychromasia Not Reportable Hypochromasia 1+ Poikilocytosis Not Reportable Anisocytosis 1+ Microcytosis Not Reportable Macrocytosis Not Reportable Spherocytes Not Reportable Pappenheimer Bodies Not Reportable Sickle Cells Not Reportable Target Cells Not Reportable Tear Drop Cells Not Reportable Ovalocytes Not Reportable Helmet Cells Not Reportable Oliva-[place] Bodies Not Reportable [place] Rings Not Reportable [place] Cells Not Reportable Bite Cells Not Reportable Crenated Cell Not Reportable Elliptocytes Not Reportable Acanthocytes (Spur) Not Reportable Rouleaux Not Reportable Hemoglobin C Crystals Not Reportable Schistocytes Not Reportable Malaria parasites Not Reportable Lico Bodies Not Reportable Hem Pathologist Commnt No APTT 50.8 H Heparin Anti-Xa, Unfract Sodium 141 Potassium 5.0 Chloride 109.1 H Carbon Dioxide 27 Anion Gap 10 BUN 86 H Creatinine 2.5 H Estimated GFR 31 BUN/Creatinine Ratio 34 Glucose 140 H POC Glucose Calcium 6.9 L Total Bilirubin Direct Bilirubin Indirect Bilirubin AST ALT Alkaline Phosphatase Total Protein Albumin Albumin/Globulin Ratio Heparin-induced Plt Ab UF Heparin High Dose DYLAN UFH Low Dose 0.1 DYLAN UFH Low Dose 0.5 Blood Type Antibody Screen Crossmatch 11/09/20 11/09/20 11/09/20 03:43 09:22 11:38 WBC RBC Hgb Hct MCV MCH MCHC RDW Plt Count Add Manual Diff Total Counted Seg Neutrophils % Seg Neuts % (Manual) Lymphocytes % (Manual) Monocytes % (Manual) Nucleated RBC % Seg Neutrophils # Man Band Neutrophils # Lymphocytes # (Manual) Abs React Lymphs (Man) Monocytes # (Manual) Eosinophils # (Manual) Basophils # (Manual) Metamyelocytes # Myelocytes # Promyelocytes # Blast Cells # WBC Morphology Hypersegmented Neuts Hyposegmented Neuts Hypogranular Neuts Smudge Cells Toxic Granulation Toxic Vacuolation Dohle Bodies Pelger-Huet Anomaly Demario Rods Platelet Estimate Clumped Platelets Plt Clumps, EDTA Large Platelets Giant Platelets Platelet Satelliting Plt Morphology Comment RBC Morphology Dimorphic RBCs Polychromasia Hypochromasia Poikilocytosis Anisocytosis Microcytosis Macrocytosis Spherocytes Pappenheimer Bodies Sickle Cells Target Cells Tear Drop Cells Ovalocytes Helmet Cells Oliva-[place] Bodies [place] Rings Caryn Cells Bite Cells Crenated Cell Elliptocytes Acanthocytes (Spur) Rouleaux Hemoglobin C Crystals Schistocytes Malaria parasites Lico Bodies Hem Pathologist Commnt APTT Heparin Anti-Xa, Unfract Sodium Potassium Chloride Carbon Dioxide Anion Gap BUN Creatinine Estimated GFR BUN/Creatinine Ratio Glucose POC Glucose 117 H 111 H 97 Calcium Total Bilirubin Direct Bilirubin Indirect Bilirubin AST ALT Alkaline Phosphatase Total Protein Albumin Albumin/Globulin Ratio Heparin-induced Plt Ab UF Heparin High Dose DYLAN UFH Low Dose 0.1 DYLAN UFH Low Dose 0.5 Blood Type Antibody Screen Crossmatch
--- NOTE | 2020-11-09 16:48 | Operative Report ---
DATE OF SURGERY: 11/08/2020 PREOPERATIVE DIAGNOSIS: Pneumatosis intestinalis, sepsis. POSTOPERATIVE DIAGNOSIS: Pneumatosis intestinalis, sepsis. FINDINGS: 1. Segmental infarcts of distal small intestine with pneumatosis intestinalis present -- approximately 30 cm of small bowel resected. 2. SMA with strongly palpable pulse. 3. Large stool burden in left colon. PROCEDURE: Exploratory laparotomy, small bowel resection, placement of ABThera VAC. ANESTHESIA: General endotracheal anesthesia. SURGEON: Yisel Woodward DO [employer] BPM DEVELOPER: Ramos Llanes MD. ESTIMATED BLOOD LOSS: Minimal. PATHOLOGY: Ischemic small intestine. SPECIMEN DISPOSITION: To lab. CONDITION DISPOSITION: The patient is stable to ICU. HISTORY OF PRESENT ILLNESS AND INDICATIONS: The patient is a 70-year-old male who presented to the hospital on 10/23/2020 with symptoms consistent with acute stroke. The patient was admitted to the hospital in accordance with stroke protocol. He was also found to have CHF exacerbation and bilateral pneumonia for which he was being treated. On 11/02/2020, the patient was found to have right lower extremity ischemia and underwent right lower extremity thrombectomy with fasciotomy. He also underwent KELLY, which revealed a left atrial appendage thrombus and he was started on anticoagulation with recommendations from hematology. On 11/03/2020, the patient decompensated with hypotension and worsening mental status and was intubated and started on pressors. On 11/08/2020, the patient was noted to have increasing abdominal distention with emesis and feculent drainage from his NG tube. A CT scan was performed which showed pneumatosis of the small intestine with mild pneumatosis of the cecum. Surgical consultation was obtained and it was recommended that the patient undergo emergent exploratory laparotomy to evaluate the intestines for ischemia and necrosis. All risks, benefits and alternatives to the surgery were discussed with the patient's son/NIELS Summers. After a detailed discussion, all questions were answered and consent obtained. DESCRIPTION OF PROCEDURE: The patient was identified in the ICU and brought directly down to the operating room, he was placed on the operating room table in supine position. After anesthesia was induced, the abdomen was prepped and draped in the usual sterile fashion and timeout performed. A midline incision was made from the xiphoid to the pubic tubercle using a 10 blade, Dissection was carried through the skin and subcutaneous tissue using Bovie electrocautery with hemostasis achieved along the way. Once the fascia was encountered this was grasped between 2 hemostats and scored with electrocautery. The posterior fascia was then grasped between 2 hemostats and scored and finally, the peritoneum was grasped between 2 hemostats and incised with Metzenbaum scissors. The abdomen was entered and there was some serosanguineous drainage. The incision was then opened over 2 gloved fingers in a cephalad and caudad direction. Upon initial inspection of the abdomen, there was some serosanguineous ascites and the small bowel appeared extremely dilated and fluid filled. First, we started by eviscerating the small bowel. The small bowel was ran from the ligament of Treitz to the terminal ileum. It appeared the proximal most small bowel was decompressed; however, most of the mid and distal small bowel was filled with air and fluid, very distended. During the inspection, there were 3 segmental infarcts of the distal small bowel identified. The remainder of the small bowel was viable. The root of the small bowel mesentery was palpated. There was a strongly palpable pulse in the superior mesenteric artery. The segmental infarcts involved approximately 30 cm of small bowel with evidence of pneumatosis. At this point, it was decided to perform a small bowel resection. A window was created in the mesentery at the proximal and distal aspects of the resection margins. The small bowel was transected using a DEANN-75 mm blue load stapler x2. The mesentery was ligated using the EnSeal. The segment of the small bowel was passed off the table as a specimen. The terminal ileum and the colon were then inspected. The right colon was very distended and filled with air. The left colon was decompressed and filled with stool. The colon did appear viable without evidence of pneumatosis or ischemia. At this point, the abdomen was irrigated and it was decided to place an ABThera VAC for temporary closure of the abdominal cavity in order to facilitate a second look in 48 hours. The abdomen was irrigated and all irrigant returned clear. The bowel was placed back in normal anatomic position. The NG tube was palpated in the stomach and secured by anesthesia. The ABThera VAC was applied in the usual fashion. The fascia was approximated using 4 interrupted #1 PDS stitches in order to prevent retraction of the fascia. The ABThera VAC was connected to -125 mmHg suction on ABThera VAC setting. All the foam compressed and there was no leak. The patient tolerated the procedure well. At the end of the case, all sponge, sharp, instrument counts were correct x2. The patient was taken back to the ICU in stable condition, and remained on mechanical ventilation and sedation. The patient's son was updated on intraoperative findings and plan to return to the operating room in 48 hours. TID: [id number] RECEIPT: [id number] MTDD
[2020-11-09] MEDS: CEFEPIME/NS 2 GM/100 ML 2 GM/100 ML BAG IV SCH (22:25)
[2020-11-10] MEDS ORDERED: LIDOCAINE (1%) 10 MG/1 ML VIAL 20 ML MDV INFILTRATI ONE
[2020-11-10] MEDS: D5W/0.45% NACL 1,000 ML IV SCH ×2 (01:29→17:44)
[2020-11-10] MEDS: metroNIDAZOLE/NS 500 MG/100 ML 500 MG/100 ML BAG IV SCH ×3 (01:30→17:42)
[2020-11-10] MEDS: NORepinephrine/NS 8 MG-250 ML 8 MG/250 ML INFUS..BTL IV SCH ×2 (01:46→22:58)
--- NOTE | 2020-11-10 03:28 | XRay Report ---
CHEST 1 VIEW 11/10/2020 2:13 AM INDICATION / CLINICAL INFORMATION: follow up respiratory failure. COMPARISON: One view of the chest from 11/09/2020. FINDINGS: SUPPORT DEVICES: Unchanged. HEART / MEDIASTINUM: Stable. LUNGS / PLEURA: Reduced lung volumes are again noted with improved aeration of the lung bases. No sig nificant pleural effusion. No pneumothorax. ADDITIONAL FINDINGS: No significant additional findings. IMPRESSION: Improved aeration of the lungs without other significant interval changes. Signer Name: Rafa Parmar MD Signed: 11/10/2020 3:23 AM Workstation Name: [id number]
[2020-11-10] MEDS: INSULIN REGULAR, HUMAN 100 UNITS/1 ML SUB-Q SCH ×4 (03:41→23:44)
[2020-11-10] MEDS: fentaNYL DRIP Premix 2,000 MCG/100 ML BAG IV SCH ×4 (05:52→20:50)
[2020-11-10 06:00] LABS: Hemoglobin 6.6 gm/dl (11.8-15.2)
[2020-11-10] MEDS: LEVOTHYROXINE 100 MCG INJ IV SCH (06:06)
[2020-11-10 06:25] LABS: Hematocrit 19.9 % (35.5-45.6)
[2020-11-10 06:39] LABS: Calcium 7.1 mg/dL (8.4-10.2)
[2020-11-10] MEDS ORDERED: SODIUM CHLORIDE 0.9% 500 ML 500 ML IV NR (07:56)
[2020-11-10] MEDS ORDERED: BUPIVACAINE/PF (0.5%) 5 MG/1 ML 30 ML VIAL INFILTRATI ONE ×2 (08:29)
[2020-11-10] MEDS ORDERED: LIDOCAINE (1%) 10 MG/1 ML VIAL 20 ML MDV ONE (08:29)
[2020-11-10] MEDS: PANTOPRAZOLE 40 MG INJ IV SCH ×2 (09:00→21:17)
[2020-11-10] MEDS ORDERED: SODIUM CHLORIDE 0.9% 500 ML 500 ML IV SCH (09:30)
--- NOTE | 2020-11-10 10:03 | Progress Note ---
Assessment and Plan Telemetry reviewed: Sinus rhythm 67. No events #Pericardial effusion * CT abdomen noted incidental finding of small pericardial effusion on 11/08/2020. Limited echocardiogram to characterize and measure pericardial effusion pending. #Atrial Appendage Thrombus * KELLY reviewed (11/01/2020): Likely stock of thrombus in the left atrial append age of heterogeneous quality. No evidence of valvulopathy. Mildly dilated left ventricle with mild LVH with moderate global LV hypokinesis. LVEF 40 to 45%. No pericardial effusion. Mild plaquing. Normal agitated saline study without evidence of intracardiac or intrapulmonary communication. * HIT panel is negative. Currently off anticoagulation due to severe anemia (Hgb 6.6, hematocrit 19). Patient is scheduled for abdominal surgery this a.m. We will plan to readdress anticoagulation per surgery recommendations as tolerated in setting of severe anemia. #Anemia * Patient is receiving 2 units of PRBC this a.m. #Mesenteric infarct s/p laparoscopic bowel resection * Currently strict TPN/NPO orders per GI surgery, discontinue all p.o. 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 * MRI reviewed (10/23/2020): Acute CVA. * MRI reviewed (11/03/2020) new onset acute CVA. #Ischemic limb in setting of arterial thrombus and extensive DVT s/p revascularization * (11/02/2020) occlusive arterial thrombus and extensive DVT developed in right lower limb. Vascular surgery performed open revascularization with 4 compart ment fasciotomy. #Cardiomyopathy * Echocardiogram reviewed (10/23/2020): LVEF is 35 to 40%. Left ventricle is moderately dilated. LV SF is mild to moderately decreased. Borderline concentric LVH. Left ventricle has diffuse moderate to severe hypokinesis of the inferior wall. RV SF is normal. Left atrium is mildly dilated. Right atrium is mildly dilated. Saline bubble contrast intravenous injection does not demonstrate PFO. RVSP is 23 mmHg. No valvular abnormalities. * In consideration of patient's mental status acuity and other comorbidities, we will plan for conservative cardiac management. Plan to optimize cardiac regimen once patient is able to resume p.o. medication. #Left bundle branch block * Onset date is unknown. 12-lead reviewed no ST segment elevation. Troponins are negative x2. AMI ruled out. #DVT prophylaxis * SCDs in place. No AC recommended in setting of severe anemia. Plan to readdress DVT prophylaxis per surgery recommendations. Patient is currently guarded cardiac status with poor prognosis. Will follow This patient was seen in conjunction with Dr Weeks who agrees with this assessment and plan of care. - Patient Problems (1) LBBB (left bundle branch block) Current Visit: Yes Status: Acute (2) Acute CVA (cerebrovascular accident) Current Visit: Yes Status: Acute (3) Cardiomyopathy Current Visit: Yes Status: Acute (4) Suspected 2019 novel coronavirus infection Current Visit: Yes Status: Acute (5) Hypothyroidism Current Visit: Yes Status: Acute (6) atrial appendage thrombus Current Visit: Yes Status: Acute (7) mesenteric ischemia Current Visit: Yes Status: Acute Subjective Date of service: 11/10/20 Principal diagnosis: CVA, Atrial Thrombus, Acute Limb Ischemia, ?GIB Interval history: Patient resting in bed, intubated and sedated. Telemetry reviewed: Sinus rhythm 77 with frequent PVCs. No events Objective Last Vital Signs Temp 98.1 F 11/10/20 09:05 Pulse 71 11/10/20 09:05 Resp 12 11/10/20 09:05 BP 111/55 11/10/20 09:05 Pulse Ox 100 11/10/20 09:05 - Physical Examination General: Other HEENT: Positive: Normocephaly, Mucus Membranes Moist Neck: Positive: neck supple, trachea midline. Negative: JVD/HJR Cardiac: Positive: Reg Rate and Rhythm, S1/S2 Lungs: Positive: Ventilated Respirations Neuro: Positive: Other (Intubated and sedated) Abdomen: Positive: Soft Skin: Negative: Rash, Wound Incision: Cardiac Cath Site Musculoskeletal: No Fluid Collection Extremities: Present: upper extr. pulses, lower extr. pulses, edema, Other (s/p RLE open thrombectomy with four-quadrant fasciotomy) - Labs and Meds Lipids 11/10/20 Range/Units 05:30 Triglycerides 63 (2-149) mg/dL CBC 11/10/20 Range/Units 05:30 Hgb 6.6 L (11.8-15.2) gm/dl Hct 19.9 L* (35.5-45.6) % Plt Count 156 (140-440) K/mm3 Comprehensive Metabolic Panel 11/10/20 Range/Units 05:30 Sodium 142 (137-145) mmol/L Potassium 4.9 (3.6-5.0) mmol/L Chloride 111.3 H (98-107) mmol/L Carbon Dioxide 29 (22-30) mmol/L BUN 74 H (9-20) mg/dL Creatinine 2.3 H (0.8-1.3) mg/dL Glucose 119 H (75-100) mg/dL Calcium 7.1 L (8.4-10.2) mg/dL - Imaging and Cardiology EKG: report reviewed, image reviewed Echo: pending, report reviewed - Telemetry EKG Rhythm: Sinus Rhythm - EKG Sinus rhythms and dysrhythmias: sinus rhythm AV and intraventricular conduction: left bundle branch block Repolarization changes or abnormalities: nonspecific abnormality, ST segment, and/or T wave - Allied health notes Allied health notes reviewed: nursing
--- NOTE | 2020-11-10 10:59 | Hem/Onc Progress Note ---
Subjective Interval history: 70yo man with NICM/ICM EF 30-35%, recent R leg arterial thrombosis, now with stroke and L atrial clot was looking toward acute rehab-->but setback, now intubated, ARF, hypotension--.vasopressors on and off IV heparin today started argatroban because HIT possible-->then had oral bleeding-->stopped argatroban has been on vasopressors yesterday OR for abd distension-->intestinal ischemia/infarction receuived iV heparin-->oozing-->severe anemia--RBC today still on vasopressors DATA REVIEWED BELOW. PF4 Ab testing neg IMP: Clotting tendency, now s/p arterial cloting in leg and intestine now s/p abd surgery for bowel ischemia recent L atrial clotting-->presumed to be causing embolic events severe anemia due to bleeding; not tolerating anticoagulants "bleeder-clotter"--still worried about HIT but PF4 Ab neg once REC: IV heparin when possible--caution with bleeding tendency RBC transfusions for severe anemia or visible bleeding awaiting hgb electrophoresis and cardiolipin ab testing Active Medications Metronidazole (Flagyl 500 Mg/100 Ml) 500 mg in 100 mls @ 100 mls/hr IV Q8H ALEX; Protocol Last Admin: 11/10/20 09:00 Dose: 100 mls/hr Documented by: Heparin Sodium/Sodium Chloride (Heparin/ 0.45% Nacl-25,000 Unit/500 Ml) 25,000 unit in 500 mls @ 30 mls/hr IV TITR ALEX; Protocol Laboratory Last Values WBC 19.0 K/mm3 (4.5-11.0) H 11/09/20 03:21 Hgb 6.6 gm/dl (11.8-15.2) L 11/10/20 05:30 Hct 19.9 % (35.5-45.6) L* 11/10/20 05:30 Plt Count 156 K/mm3 (140-440) 11/10/20 05:30 APTT 50.8 Sec. (24.2-36.6) H 11/09/20 03:21 Heparin Anti-Xa Level 0.61 U.I./ml (0.3-0.7) 11/09/20 20:23 Creatinine 2.3 mg/dL (0.8-1.3) H 11/10/20 05:30 AST 21 units/L (5-40) 11/08/20 19:11 ALT 27 units/L (7-56) 11/08/20 19:11 Alkaline Phosphatase 41 units/L (35-129) 11/08/20 19:11 Crossmatch See Detail 11/08/20 11:15 Objective - Constitutional Vitals: Last Vital Signs Temp 97.8 F 11/10/20 10:50 Pulse 70 11/10/20 10:50 Resp 12 11/10/20 10:50 BP 109/58 11/10/20 10:50 Pulse Ox 100 11/10/20 10:50 - Labs Lab Results: Laboratory Results - last 24 hr 11/06/20 11/06/20 11/08/20 06:00 Unknown 11:15 Hgb Hct Plt Count Heparin Anti-Xa Level Sodium Potassium Chloride Carbon Dioxide Anion Gap BUN Creatinine Estimated GFR BUN/Creatinine Ratio Glucose POC Glucose Calcium Ionized Calcium 4.7 L Phosphorus Magnesium Triglycerides Serotonin Release Assay See scanned result Blood Type O POSITIVE Antibody Screen Negative Crossmatch See Detail 11/09/20 11/09/20 11/09/20 09:22 11:38 17:04 Hgb Hct Plt Count Heparin Anti-Xa Level Sodium Potassium Chloride Carbon Dioxide Anion Gap BUN Creatinine Estimated GFR BUN/Creatinine Ratio Glucose POC Glucose 111 H 97 106 H Calcium Ionized Calcium Phosphorus Magnesium Triglycerides Serotonin Release Assay Blood Type Antibody Screen Crossmatch 11/09/20 11/09/20 11/10/20 20:23 22:08 03:36 Hgb Hct Plt Count Heparin Anti-Xa Level 0.61 Sodium Potassium Chloride Carbon Dioxide Anion Gap BUN Creatinine Estimated GFR BUN/Creatinine Ratio Glucose POC Glucose 112 H 102 Calcium Ionized Calcium Phosphorus Magnesium Triglycerides Serotonin Release Assay Blood Type Antibody Screen Crossmatch 11/10/20 11/10/20 05:30 05:30 Hgb 6.6 L Hct 19.9 L* Plt Count 156 Heparin Anti-Xa Level Sodium 142 Potassium 4.9 Chloride 111.3 H Carbon Dioxide 29 Anion Gap 7 BUN 74 H Creatinine 2.3 H Estimated GFR 34 BUN/Creatinine Ratio 32 Glucose 119 H POC Glucose Calcium 7.1 L Ionized Calcium Phosphorus 2.90 Magnesium 4.40 H Triglycerides 63 Serotonin Release Assay Blood Type Antibody Screen Crossmatch Medications & Allergies - Medications Allergies/Adverse Reactions: Allergies No Known Allergies Allergy (Unverified 10/23/20 12:44) Home Medications: Home Medications Medication Instructions Recorded Confirmed Last Taken Type Levothyroxine Sodium 150 mcg PO DAILY 10/31/20 10/31/20 Unknown History [Levothyroxine] carvediloL [Coreg] 6.25 mg PO BID 10/31/20 10/31/20 Unknown History lisinopriL [Lisinopril] 10 mg PO DAILY 10/31/20 10/31/20 Unknown History Active Medications: Generic Name Dose Route Start Last Admin Trade Name Freq PRN Reason Stop Dose Admin Bisacodyl 10 mg 11/08/20 22:00 11/10/20 09:00 Bisacodyl 10 Mg Rect Supp IA 10 mg BID ALEX Administration Dextrose 50 ml 11/08/20 08:04 Dextrose 50% In Water (25gm) 50 Ml Syringe IV Q30MIN PRN Hypoglycemia Protocol Fentanyl 50 mcg 11/03/20 16:46 Fentanyl 100 Mcg/2 Ml Inj IV Q10MIN PRN ANALGESIA Hydrophilic Ointment 1 applic 11/03/20 16:46 Lip Therapy Vaseline TP Q2HR PRN Dry Lips Fentanyl Citrate 2,000 mcg in 100 mls @ 4.86 mls/hr 11/03/20 17:24 11/10/20 05:52 Fentanyl Drip Premix IV 3 mcg/kg/hr TITR ALEX 14.58 mls/hr Administration Protocol 1 MCG/KG/HR NORepinephrine/NS 8 MG-250 ML 8 mg in 250 mls @ 3.75 mls/hr 11/03/20 18:00 11/10/20 04:00 Norepinephrine/Ns 8 Mg-250 Ml (Double Conc) IV 8 mcg/min TITRATE ALEX 15 mls/hr Titration Protocol 2 MCG/MIN Cefepime HCl 2 gm in 100 mls @ 200 mls/hr 11/08/20 22:00 11/09/20 22:55 Cefepime/Ns 2 Gm/100 Ml IV Infused Q24H ALEX Infusion Protocol Dextrose/Sodium Chloride 1,000 mls @ 100 mls/hr 11/08/20 17:00 11/10/20 01:29 D5/0.45ns IV 100 mls/hr DIRECT ALEX Administration Propofol 1,000 mg in 100 mls @ 3.126 mls/hr 11/08/20 17:00 11/10/20 04:00 Diprivan 10 Mg/Ml IV 10 mcg/kg/min TITR ALEX 6.252 mls/hr Titration Protocol 5 MCG/KG/MIN Metronidazole 500 mg in 100 mls @ 100 mls/hr 11/08/20 17:00 11/10/20 09:00 Flagyl 500 Mg/100 Ml IV 100 mls/hr Q8H ALEX Administration Protocol Heparin Sodium/Sodium Chloride 25,000 unit in 500 mls @ 30 mls/hr 11/09/20 13:00 11/10/20 05:44 Heparin/ 0.45% Nacl-25,000 Unit/500 Ml IV 0 units/hr TITR ALEX 0 mls/hr Titration Protocol 1,500 UNITS/HR Sodium Chloride 500 mls @ 0 mls/hr 11/10/20 07:56 Nacl 0.9% 500 Ml IV 11/10/20 23:59 ONCE NR As Directed Sodium Chloride 500 mls @ 0 mls/hr 11/10/20 09:30 Nacl 0.9% 500 Ml IV 11/10/20 21:00 ONCE ALEX As Directed Insulin Human Regular 0 units 11/08/20 09:00 11/10/20 10:37 Insulin Regular, Human 100 Units/1 Ml SUB-Q Not Given Q6H [facility] Protocol Levothyroxine Sodium 75 mcg 11/09/20 06:00 11/10/20 06:06 Levothyroxine 100 Mcg Inj IV 75 mcg DAILY@0600 ALEX Administration Multi-Ingred Cream/Lotion/Oil/Oint 1 applic 11/03/20 16:46 Mineral Oil/Petrolatum, White Ophth Oint 3.5 Gm OU Q4HR PRN Dry Eye(s) Ondansetron HCl 4 mg 10/23/20 20:00 11/07/20 23:09 Ondansetron 4 Mg/2 Ml Inj IV 4 mg Q8H PRN Administration Nausea And Vomiting Pantoprazole Sodium 40 mg 11/07/20 22:00 11/10/20 09:00 Pantoprazole 40 Mg Inj IV 40 mg BID ALEX Administration Sodium Chloride 10 ml 10/23/20 20:00 11/08/20 21:24 Sodium Chloride 0.9% 10 Ml Flush Syringe IV 10 ml PRN PRN Administration LINE FLUSH
--- NOTE | 2020-11-10 11:12 | Progress Note ---
Assessment and Plan Acute hypoxemic respiratory failure. Acute embolic cerebrovascular accident. Acute limb ischemia, status post thrombectomy. Left atrial appendage. Acute congestive heart failure exacerbation. Obesity. History of hypothyroidism. Leukocytosis. Acute encephalopathy, toxic metabolic - resume low intensity Heparin I.V. and follow H&H - Keep NPO - G.I. evaluation ongoing - continue accuchecks q6h - wean Levophed for target MAP > 65 mmHg - complete antiinfective's per ID recommendation - azotemia per nephrology team - continue care as below otherwise; - continue to wean supplemental oxygen for target O2 sat's > 90% acutely - VAP bundle addressed - continue lung protective strategies - continue bronchodilators with pulmonary hygiene per RT - wean per pulmonary driven protocols otherwise - avoid nephrotoxins, renally dose all medications - continue Daily SAT and SBT assessment as tolerated - continue accuchecks with glycemic control per SSI (While critically ill target blood glucose of 140-180 mg/dL; avoid hypoglycemia) - sedation prn for target RASS 0 to -1 - continue to avoid benzodiazepine's, reduce the possibility of delirium - complete AB's per ID rec's - prn analgesia per CPOT score - Maintenance of sleep-wake cycle, avoid delirium - continue enteral nutritional support at goal rate as tolerated - G.I. & VTE prophylaxis - PT/OT/ROM exercises - continue mobility protocols for pressure ulcer prophylaxis - Monitor hemodynamics closely - continue other care per attending / other consultants - discharge planning ongoing concurrently .... Re-evaluate in am & prn CONDITION: CRITICAL PROGNOSIS: GUARDED CODE STATUS: FULL CODE The high probability of a clinically significant, sudden or life-threatening deterioration of the [respiratory, cardiovascular, renal & neurologic] system(s) required my full and direct attention, intervention and personal management. The aggregate critical care time was [34] minutes without overlap. Time includes spent on; [x] Data Review and interpretation [x] Patient assessment and monitoring of vital signs [x] Documentation [x] Medication orders and management Subjective Date of service: 11/09/20 Principal diagnosis: Ac hypoxemic resp failure; CVA; Acute limb ischemia; Acute encephalopathy Interval history: Patient is seen today for: Acute hypoxemic respiratory failure; Acute embolic CVA; Acute limb ischemia; Left atrial appendage; Acute CHF; Obesity; Acute encephalopathy, toxic metabolic Seen and examined at bedside; 24hour events reviewed; nursing and respiratory care staff consulted; no adverse overnight events reported to me; resting peacefully in bed; AMS is persistent; cleared for resumption of anticoagulation; HIT assay negative; remains on MVS; post-op day # 2 Objective Vital Signs - 12hr 11/08/20 11/09/20 11/09/20 23:46 00:00 00:02 Temperature 97.7 F Pulse Rate 71 66 65 Pulse Rate [ From Monitor] Respiratory 12 12 12 Rate Blood Pressure 107/68 97/61 97/61 O2 Sat by Pulse 100 100 100 Oximetry 11/09/20 11/09/20 11/09/20 00:16 00:30 00:45 Temperature Pulse Rate 63 64 66 Pulse Rate [ From Monitor] Respiratory 12 12 12 Rate Blood Pressure 97/61 85/55 90/55 O2 Sat by Pulse 100 100 100 Oximetry 11/09/20 11/09/20 11/09/20 01:00 01:15 01:30 Temperature Pulse Rate 63 68 67 Pulse Rate [ 72 From Monitor] Respiratory 12 10 L 12 Rate Blood Pressure 95/57 102/57 93/54 O2 Sat by Pulse 100 100 100 Oximetry 11/09/20 11/09/20 11/09/20 01:45 02:01 02:15 Temperature Pulse Rate 64 67 69 Pulse Rate [ From Monitor] Respiratory 12 14 13 Rate Blood Pressure 93/54 85/50 175/146 O2 Sat by Pulse 100 100 100 Oximetry 11/09/20 11/09/20 11/09/20 02:30 02:45 02:58 Temperature Pulse Rate 66 66 Pulse Rate [ 69 From Monitor] Respiratory 14 14 18 Rate Blood Pressure 99/48 99/48 O2 Sat by Pulse 100 100 100 Oximetry 11/09/20 11/09/20 11/09/20 03:01 03:05 03:15 Temperature Pulse Rate 69 67 69 Pulse Rate [ From Monitor] Respiratory 16 12 Rate Blood Pressure 94/53 97/59 O2 Sat by Pulse 100 100 Oximetry 11/09/20 11/09/20 11/09/20 03:31 03:45 04:00 Temperature 97.7 F Pulse Rate 68 65 64 Pulse Rate [ From Monitor] Respiratory 12 11 L 12 Rate Blood Pressure 92/55 90/51 85/52 O2 Sat by Pulse 100 100 100 Oximetry 11/09/20 11/09/20 11/09/20 04:04 04:15 04:30 Temperature Pulse Rate 67 62 62 Pulse Rate [ From Monitor] Respiratory 12 12 Rate Blood Pressure 85/52 81/50 89/53 O2 Sat by Pulse 100 100 100 Oximetry 11/09/20 11/09/20 11/09/20 04:45 04:55 05:00 Temperature 97.9 F Pulse Rate 73 67 Pulse Rate [ 69 From Monitor] Respiratory 17 12 12 Rate Blood Pressure 89/53 105/59 89/52 O2 Sat by Pulse 100 100 100 Oximetry 11/09/20 11/09/20 11/09/20 05:15 05:30 05:45 Temperature Pulse Rate 67 67 67 Pulse Rate [ From Monitor] Respiratory 11 L 12 13 Rate Blood Pressure 89/52 105/59 105/59 O2 Sat by Pulse 100 100 100 Oximetry 11/09/20 11/09/20 11/09/20 06:01 06:15 06:31 Temperature Pulse Rate 68 68 67 Pulse Rate [ From Monitor] Respiratory 13 13 13 Rate Blood Pressure 110/61 109/64 92/60 O2 Sat by Pulse 100 100 99 Oximetry 11/09/20 11/09/20 11/09/20 06:45 07:00 07:15 Temperature Pulse Rate 69 65 63 Pulse Rate [ From Monitor] Respiratory 13 12 12 Rate Blood Pressure 92/60 92/51 92/53 O2 Sat by Pulse 99 100 100 Oximetry 11/09/20 11/09/20 11/09/20 07:30 07:45 08:00 Temperature 97.6 F Pulse Rate 62 68 Pulse Rate [ 68 From Monitor] Respiratory 12 13 18 Rate Blood Pressure 90/53 90/53 O2 Sat by Pulse 100 100 100 Oximetry 11/09/20 11/09/20 11/09/20 08:01 08:15 08:30 Temperature Pulse Rate 68 70 68 Pulse Rate [ From Monitor] Respiratory 13 13 12 Rate Blood Pressure 121/63 121/63 104/65 O2 Sat by Pulse 100 98 100 Oximetry 11/09/20 11/09/20 08:45 09:00 Temperature Pulse Rate 68 66 Pulse Rate [ From Monitor] Respiratory 13 13 Rate Blood Pressure 104/65 92/68 O2 Sat by Pulse 100 100 Oximetry Constitutional: no acute distress, other (elderly male with mildly increased respiratory effort at rest on MVS) Eyes: non-icteric ENT: oropharynx moist, other (ETT 25 cm DALIA) Neck: supple, no lymphadenopathy, no JVD Effort: mildly labored Ascultation: Bilateral: diminished breath sounds, rhonchi Percussion: Bilateral: not dull Cardiovascular: regular rate and rhythm Gastrointestinal: hypoactive bowel sounds, non-tender, other (open abdomen in abthera vacuum dressing) Integumentary: normal Extremities: no cyanosis, pink and warm, edema (RLExt), other (RLExt fasciotomy) Neurologic: pupils equal and round, unable to assess, other (Right Hemiparesis) Psychiatric: other (encephalopathic / sedated) CBC and BMP: 11/10/20 05:30 11/10/20 05:30 ABG, PT/INR, D-dimer: ABG ABG pH 7.494 (7.320-7.450) H 11/08/20 03:38 POC ABG pCO2 36.6 mmHg (32.0-48.0) 11/08/20 03:38 POC ABG pO2 111.5 mmHg (83-108) H 11/08/20 03:38 POC ABG HCO3 27.5 11/08/20 03:38 ABG O2 Saturation 98.4 (0-100) 11/08/20 03:38 PT/INR, D-dimer PT 16.2 Sec. (12.2-14.9) H 11/02/20 19:55 INR 1.30 (0.87-1.13) H 11/02/20 19:55 D-Dimer 4139.61 ng/mlDDU (0-234) H 10/23/20 18:23 Abnormal lab findings: Abnormal Labs 10/23/20 10/23/20 10/23/20 13:32 18:23 18:23 WBC RBC Hgb Hct RDW Seg Neuts % (Manual) Lymphocytes % (Manual) Seg Neutrophils # Man Lymphocytes # (Manual) Monocytes # (Manual) PT INR APTT D-Dimer 4139.61 H Heparin Anti-Xa Level ABG pH POC ABG pCO2 POC ABG pO2 ABG Hemoglobin ABG Oxyhemoglobin ABG Sodium ABG Potassium ABG Chloride ABG Glucose Carboxyhemoglobin Sodium Potassium Chloride 109.1 H Carbon Dioxide BUN Creatinine Glucose POC Glucose Lactic Acid Calcium Lactate Dehydrogenase 334 H C-Reactive Protein 2.50 H NT-Pro-B Natriuret Pep 5806 H Total Protein Albumin TSH Arterial Blood Glucose Arterial Blood Ionized Calcium Urine WBC (Auto) Crossmatch 10/23/20 10/23/20 10/26/20 18:23 18:23 05:34 WBC RBC Hgb Hct RDW Seg Neuts % (Manual) Lymphocytes % (Manual) Seg Neutrophils # Man Lymphocytes # (Manual) Monocytes # (Manual) PT INR APTT D-Dimer Heparin Anti-Xa Level ABG pH POC ABG pCO2 POC ABG pO2 ABG Hemoglobin ABG Oxyhemoglobin ABG Sodium ABG Potassium ABG Chloride ABG Glucose Carboxyhemoglobin Sodium Potassium Chloride Carbon Dioxide BUN 30 H Creatinine Glucose 120 H POC Glucose Lactic Acid Calcium Lactate Dehydrogenase C-Reactive Protein NT-Pro-B Natriuret Pep Total Protein Albumin TSH 7.100 H 6.540 H Arterial Blood Glucose Arterial Blood Ionized Calcium Urine WBC (Auto) Crossmatch 10/27/20 10/28/20 11/02/20 08:55 05:25 07:17 WBC 15.8 H RBC Hgb Hct RDW Seg Neuts % (Manual) Lymphocytes % (Manual) Seg Neutrophils # Man Lymphocytes # (Manual) Monocytes # (Manual) PT INR APTT D-Dimer Heparin Anti-Xa Level ABG pH POC ABG pCO2 POC ABG pO2 ABG Hemoglobin ABG Oxyhemoglobin ABG Sodium ABG Potassium ABG Chloride ABG Glucose Carboxyhemoglobin Sodium Potassium Chloride Carbon Dioxide BUN 28 H 28 H Creatinine Glucose 124 H 110 H POC Glucose Lactic Acid Calcium 8.2 L Lactate Dehydrogenase C-Reactive Protein NT-Pro-B Natriuret Pep Total Protein Albumin TSH Arterial Blood Glucose Arterial Blood Ionized Calcium Urine WBC (Auto) Crossmatch 11/02/20 11/02/20 11/02/20 07:17 15:00 15:06 WBC RBC Hgb 15.7 H Hct 47.5 H D RDW Seg Neuts % (Manual) Lymphocytes % (Manual) Seg Neutrophils # Man Lymphocytes # (Manual) Monocytes # (Manual) PT INR APTT D-Dimer Heparin Anti-Xa Level ABG pH POC ABG pCO2 POC ABG pO2 ABG Hemoglobin ABG Oxyhemoglobin ABG Sodium ABG Potassium ABG Chloride ABG Glucose Carboxyhemoglobin Sodium 136 L Potassium Chloride Carbon Dioxide BUN 33 H Creatinine Glucose 107 H POC Glucose Lactic Acid Calcium 7.9 L Lactate Dehydrogenase C-Reactive Protein NT-Pro-B Natriuret Pep Total Protein Albumin TSH Arterial Blood Glucose Arterial Blood Ionized Calcium Urine WBC (Auto) Crossmatch See Detail 11/02/20 11/02/20 11/02/20 19:55 21:25 22:28 WBC 21.8 H RBC Hgb Hct RDW Seg Neuts % (Manual) Lymphocytes % (Manual) Seg Neutrophils # Man Lymphocytes # (Manual) Monocytes # (Manual) PT 16.2 H INR 1.30 H APTT 106.0 H* D-Dimer Heparin Anti-Xa Level 1.63 H ABG pH POC ABG pCO2 POC ABG pO2 ABG Hemoglobin ABG Oxyhemoglobin ABG Sodium ABG Potassium ABG Chloride ABG Glucose Carboxyhemoglobin Sodium Potassium Chloride Carbon Dioxide BUN Creatinine Glucose POC Glucose Lactic Acid Calcium Lactate Dehydrogenase C-Reactive Protein NT-Pro-B Natriuret Pep Total Protein Albumin TSH Arterial Blood Glucose Arterial Blood Ionized Calcium Urine WBC (Auto) Crossmatch 11/03/20 11/03/20 11/03/20 05:47 13:20 13:20 WBC 29.0 H RBC Hgb 10.4 L Hct 31.2 L D RDW Seg Neuts % (Manual) Lymphocytes % (Manual) Seg Neutrophils # Man Lymphocytes # (Manual) Monocytes # (Manual) PT INR APTT D-Dimer Heparin Anti-Xa Level < 0.10 L ABG pH POC ABG pCO2 POC ABG pO2 ABG Hemoglobin ABG Oxyhemoglobin ABG Sodium ABG Potassium ABG Chloride ABG Glucose Carboxyhemoglobin Sodium 134 L Potassium 5.9 H D Chloride Carbon Dioxide 17 L D BUN 47 H Creatinine 2.2 H D Glucose 188 H POC Glucose Lactic Acid Calcium 7.6 L Lactate Dehydrogenase C-Reactive Protein NT-Pro-B Natriuret Pep Total Protein Albumin TSH Arterial Blood Glucose Arterial Blood Ionized Calcium Urine WBC (Auto) Crossmatch 11/03/20 11/03/20 11/03/20 13:20 16:11 20:01 WBC RBC Hgb Hct RDW Seg Neuts % (Manual) Lymphocytes % (Manual) Seg Neutrophils # Man Lymphocytes # (Manual) Monocytes # (Manual) PT INR APTT D-Dimer Heparin Anti-Xa Level ABG pH 7.289 L POC ABG pCO2 31.8 L POC ABG pO2 156.7 H 119.6 H ABG Hemoglobin 10.7 L 9.7 L ABG Oxyhemoglobin 98.2 H ABG Sodium 127.7 L 129.5 L ABG Potassium 5.8 H 5.9 H ABG Chloride ABG Glucose 190 H 174 H Carboxyhemoglobin 0.3 L 0.1 L Sodium Potassium Chloride Carbon Dioxide BUN Creatinine Glucose POC Glucose Lactic Acid 7.40 H* Calcium Lactate Dehydrogenase C-Reactive Protein NT-Pro-B Natriuret Pep Total Protein Albumin TSH Arterial Blood Glucose 190 H 174 H Arterial Blood Ionized Calcium 4.3 L 4.3 L Urine WBC (Auto) Crossmatch 11/03/20 11/04/20 11/04/20 21:14 04:00 04:00 WBC 32.8 H RBC Hgb 11.7 L Hct 35.0 L RDW Seg Neuts % (Manual) 82.0 H Lymphocytes % (Manual) 10.0 L Seg Neutrophils # Man 26.9 H Lymphocytes # (Manual) Monocytes # (Manual) 2.3 H PT INR APTT D-Dimer Heparin Anti-Xa Level 0.73 H ABG pH POC ABG pCO2 POC ABG pO2 ABG Hemoglobin ABG Oxyhemoglobin ABG Sodium ABG Potassium ABG Chloride ABG Glucose Carboxyhemoglobin Sodium 133 L Potassium 5.7 H Chloride Carbon Dioxide 20 L BUN 57 H Creatinine 2.3 H Glucose 129 H POC Glucose Lactic Acid Calcium 7.2 L Lactate Dehydrogenase C-Reactive Protein NT-Pro-B Natriuret Pep Total Protein Albumin TSH Arterial Blood Glucose Arterial Blood Ionized Calcium Urine WBC (Auto) Crossmatch 11/04/20 11/04/20 11/04/20 07:57 11:00 11:55 WBC RBC Hgb Hct RDW Seg Neuts % (Manual) Lymphocytes % (Manual) Seg Neutrophils # Man Lymphocytes # (Manual) Monocytes # (Manual) PT INR APTT D-Dimer Heparin Anti-Xa Level ABG pH POC ABG pCO2 POC ABG pO2 132.7 H ABG Hemoglobin 11.5 L ABG Oxyhemoglobin ABG Sodium 130.6 L ABG Potassium 5.3 H ABG Chloride ABG Glucose 145 H Carboxyhemoglobin 0.2 L Sodium Potassium Chloride Carbon Dioxide BUN Creatinine Glucose POC Glucose 110 H Lactic Acid Calcium Lactate Dehydrogenase C-Reactive Protein NT-Pro-B Natriuret Pep Total Protein Albumin TSH Arterial Blood Glucose 145 H Arterial Blood Ionized Calcium 4.4 L Urine WBC (Auto) 19.0 H Crossmatch 11/04/20 11/04/20 11/04/20 13:01 13:01 17:40 WBC RBC Hgb Hct RDW Seg Neuts % (Manual) Lymphocytes % (Manual) Seg Neutrophils # Man Lymphocytes # (Manual) Monocytes # (Manual) PT INR APTT D-Dimer Heparin Anti-Xa Level 0.26 L ABG pH POC ABG pCO2 POC ABG pO2 ABG Hemoglobin ABG Oxyhemoglobin ABG Sodium ABG Potassium ABG Chloride ABG Glucose Carboxyhemoglobin Sodium Potassium Chloride Carbon Dioxide BUN Creatinine Glucose POC Glucose 135 H Lactic Acid Calcium Lactate Dehydrogenase C-Reactive Protein 8.30 H NT-Pro-B Natriuret Pep Total Protein Albumin TSH Arterial Blood Glucose Arterial Blood Ionized Calcium Urine WBC (Auto) Crossmatch 11/04/20 11/04/20 11/05/20 19:55 23:20 00:53 WBC RBC Hgb 9.7 L 9.0 L Hct 28.3 L D 26.0 L RDW Seg Neuts % (Manual) Lymphocytes % (Manual) Seg Neutrophils # Man Lymphocytes # (Manual) Monocytes # (Manual) PT INR APTT D-Dimer Heparin Anti-Xa Level ABG pH POC ABG pCO2 POC ABG pO2 ABG Hemoglobin ABG Oxyhemoglobin ABG Sodium ABG Potassium ABG Chloride ABG Glucose Carboxyhemoglobin Sodium Potassium Chloride Carbon Dioxide BUN Creatinine Glucose POC Glucose 143 H Lactic Acid Calcium Lactate Dehydrogenase C-Reactive Protein NT-Pro-B Natriuret Pep Total Protein Albumin TSH Arterial Blood Glucose Arterial Blood Ionized Calcium Urine WBC (Auto) Crossmatch 11/05/20 11/05/20 11/05/20 02:16 03:16 03:37 WBC 33.5 H RBC 3.01 L Hgb 8.8 L Hct 25.6 L RDW Seg Neuts % (Manual) 93.5 H Lymphocytes % (Manual) 3.5 L Seg Neutrophils # Man 31.3 H Lymphocytes # (Manual) Monocytes # (Manual) 1.0 H PT INR APTT D-Dimer Heparin Anti-Xa Level 0.99 H ABG pH POC ABG pCO2 POC ABG pO2 131.3 H ABG Hemoglobin 9.2 L ABG Oxyhemoglobin ABG Sodium 131.6 L ABG Potassium ABG Chloride 110.0 H ABG Glucose 168 H Carboxyhemoglobin 0.3 L Sodium Potassium Chloride Carbon Dioxide BUN Creatinine Glucose POC Glucose Lactic Acid Calcium Lactate Dehydrogenase C-Reactive Protein NT-Pro-B Natriuret Pep Total Protein Albumin TSH Arterial Blood Glucose 168 H Arterial Blood Ionized Calcium 4.4 L Urine WBC (Auto) Crossmatch 11/05/20 11/05/20 11/05/20 03:37 05:19 18:18 WBC RBC Hgb Hct RDW Seg Neuts % (Manual) Lymphocytes % (Manual) Seg Neutrophils # Man Lymphocytes # (Manual) Monocytes # (Manual) PT INR APTT D-Dimer Heparin Anti-Xa Level ABG pH POC ABG pCO2 POC ABG pO2 ABG Hemoglobin ABG Oxyhemoglobin ABG Sodium ABG Potassium ABG Chloride ABG Glucose Carboxyhemoglobin Sodium Potassium Chloride 109.5 H Carbon Dioxide BUN 55 H Creatinine 2.1 H Glucose 157 H POC Glucose 142 H 124 H Lactic Acid Calcium 7.0 L Lactate Dehydrogenase C-Reactive Protein NT-Pro-B Natriuret Pep Total Protein Albumin TSH Arterial Blood Glucose Arterial Blood Ionized Calcium Urine WBC (Auto) Crossmatch 11/05/20 11/05/20 11/05/20 19:00 21:20 23:30 WBC RBC Hgb Hct RDW Seg Neuts % (Manual) Lymphocytes % (Manual) Seg Neutrophils # Man Lymphocytes # (Manual) Monocytes # (Manual) PT INR APTT 63.8 H* D-Dimer Heparin Anti-Xa Level ABG pH POC ABG pCO2 POC ABG pO2 ABG Hemoglobin ABG Oxyhemoglobin ABG Sodium ABG Potassium ABG Chloride ABG Glucose Carboxyhemoglobin Sodium Potassium Chloride Carbon Dioxide BUN Creatinine Glucose POC Glucose 156 H Lactic Acid Calcium Lactate Dehydrogenase C-Reactive Protein NT-Pro-B Natriuret Pep Total Protein 4.3 L Albumin 2.1 L TSH Arterial Blood Glucose Arterial Blood Ionized Calcium Urine WBC (Auto) Crossmatch 11/06/20 11/06/20 11/06/20 02:54 04:00 04:00 WBC 33.0 H RBC 2.68 L Hgb 7.7 L Hct 23.3 L RDW Seg Neuts % (Manual) 95.0 H Lymphocytes % (Manual) 2.0 L Seg Neutrophils # Man 31.4 H Lymphocytes # (Manual) 0.7 L Monocytes # (Manual) 1.0 H PT INR APTT D-Dimer Heparin Anti-Xa Level ABG pH POC ABG pCO2 POC ABG pO2 116.5 H ABG Hemoglobin 9.7 L ABG Oxyhemoglobin ABG Sodium 134.5 L ABG Potassium 5.0 H ABG Chloride 109.0 H ABG Glucose 165 H Carboxyhemoglobin 0.3 L Sodium Potassium 5.1 H Chloride 108.6 H Carbon Dioxide BUN 62 H Creatinine 2.2 H Glucose 155 H POC Glucose Lactic Acid Calcium 7.3 L Lactate Dehydrogenase C-Reactive Protein NT-Pro-B Natriuret Pep Total Protein Albumin TSH Arterial Blood Glucose 165 H Arterial Blood Ionized Calcium 4.5 L Urine WBC (Auto) Crossmatch 11/06/20 11/06/20 11/07/20 05:17 17:26 04:00 WBC 28.9 H RBC 2.44 L Hgb 7.1 L Hct 21.2 L RDW 15.4 H Seg Neuts % (Manual) 95.0 H Lymphocytes % (Manual) 3.0 L Seg Neutrophils # Man 27.5 H Lymphocytes # (Manual) 0.9 L Monocytes # (Manual) PT INR APTT D-Dimer Heparin Anti-Xa Level ABG pH POC ABG pCO2 POC ABG pO2 ABG Hemoglobin ABG Oxyhemoglobin ABG Sodium ABG Potassium ABG Chloride ABG Glucose Carboxyhemoglobin Sodium Potassium Chloride Carbon Dioxide BUN Creatinine Glucose POC Glucose 147 H 132 H Lactic Acid Calcium Lactate Dehydrogenase C-Reactive Protein NT-Pro-B Natriuret Pep Total Protein Albumin TSH Arterial Blood Glucose Arterial Blood Ionized Calcium Urine WBC (Auto) Crossmatch 11/07/20 11/07/20 11/07/20 04:00 04:00 12:06 WBC RBC Hgb Hct RDW Seg Neuts % (Manual) Lymphocytes % (Manual) Seg Neutrophils # Man Lymphocytes # (Manual) Monocytes # (Manual) PT INR APTT D-Dimer Heparin Anti-Xa Level ABG pH POC ABG pCO2 POC ABG pO2 130.1 H ABG Hemoglobin 7.5 L ABG Oxyhemoglobin ABG Sodium ABG Potassium 5.0 H ABG Chloride 110.0 H ABG Glucose 152 H Carboxyhemoglobin Sodium Potassium 5.3 H Chloride 108.2 H Carbon Dioxide BUN 77 H Creatinine 2.4 H Glucose 144 H POC Glucose 144 H Lactic Acid Calcium 7.5 L Lactate Dehydrogenase C-Reactive Protein NT-Pro-B Natriuret Pep Total Protein Albumin TSH Arterial Blood Glucose 152 H Arterial Blood Ionized Calcium Urine WBC (Auto) Crossmatch 11/07/20 11/08/20 11/08/20 17:29 03:38 04:39 WBC 23.1 H RBC 2.37 L Hgb 6.9 L Hct 20.8 L RDW 15.3 H Seg Neuts % (Manual) 95.5 H Lymphocytes % (Manual) 2.5 L Seg Neutrophils # Man 22.1 H Lymphocytes # (Manual) 0.6 L Monocytes # (Manual) PT INR APTT D-Dimer Heparin Anti-Xa Level ABG pH 7.494 H POC ABG pCO2 POC ABG pO2 111.5 H ABG Hemoglobin 6.7 L ABG Oxyhemoglobin ABG Sodium ABG Potassium 4.9 H ABG Chloride 112.0 H ABG Glucose 153 H Carboxyhemoglobin Sodium Potassium Chloride Carbon Dioxide BUN Creatinine Glucose POC Glucose 117 H Lactic Acid Calcium Lactate Dehydrogenase C-Reactive Protein NT-Pro-B Natriuret Pep Total Protein Albumin TSH Arterial Blood Glucose 153 H Arterial Blood Ionized Calcium 4.5 L Urine WBC (Auto) Crossmatch 11/08/20 11/08/20 11/08/20 04:39 11:13 11:15 WBC RBC Hgb Hct RDW Seg Neuts % (Manual) Lymphocytes % (Manual) Seg Neutrophils # Man Lymphocytes # (Manual) Monocytes # (Manual) PT INR APTT D-Dimer Heparin Anti-Xa Level ABG pH POC ABG pCO2 POC ABG pO2 ABG Hemoglobin ABG Oxyhemoglobin ABG Sodium ABG Potassium ABG Chloride ABG Glucose Carboxyhemoglobin Sodium Potassium 5.1 H Chloride 111.3 H Carbon Dioxide BUN 86 H Creatinine 2.5 H Glucose 142 H POC Glucose 125 H Lactic Acid Calcium 7.6 L Lactate Dehydrogenase C-Reactive Protein NT-Pro-B Natriuret Pep Total Protein Albumin TSH Arterial Blood Glucose Arterial Blood Ionized Calcium Urine WBC (Auto) Crossmatch See Detail 11/08/20 11/08/20 11/08/20 16:30 19:11 22:20 WBC RBC Hgb 8.0 L Hct 23.6 L RDW Seg Neuts % (Manual) Lymphocytes % (Manual) Seg Neutrophils # Man Lymphocytes # (Manual) Monocytes # (Manual) PT INR APTT D-Dimer Heparin Anti-Xa Level ABG pH POC ABG pCO2 POC ABG pO2 ABG Hemoglobin ABG Oxyhemoglobin ABG Sodium ABG Potassium ABG Chloride ABG Glucose Carboxyhemoglobin Sodium Potassium Chloride Carbon Dioxide BUN Creatinine Glucose POC Glucose 107 H Lactic Acid Calcium Lactate Dehydrogenase C-Reactive Protein NT-Pro-B Natriuret Pep Total Protein 3.8 L Albumin 2.2 L TSH Arterial Blood Glucose Arterial Blood Ionized Calcium Urine WBC (Auto) Crossmatch 11/09/20 11/09/20 11/09/20 03:21 03:21 03:21 WBC 19.0 H RBC 2.51 L Hgb 7.5 L Hct 22.2 L RDW 15.3 H Seg Neuts % (Manual) 89.0 H Lymphocytes % (Manual) 6.0 L Seg Neutrophils # Man 16.9 H Lymphocytes # (Manual) 1.1 L Monocytes # (Manual) 1.0 H PT INR APTT 50.8 H D-Dimer Heparin Anti-Xa Level ABG pH POC ABG pCO2 POC ABG pO2 ABG Hemoglobin ABG Oxyhemoglobin ABG Sodium ABG Potassium ABG Chloride ABG Glucose Carboxyhemoglobin Sodium Potassium Chloride 109.1 H Carbon Dioxide BUN 86 H Creatinine 2.5 H Glucose 140 H POC Glucose Lactic Acid Calcium 6.9 L Lactate Dehydrogenase C-Reactive Protein NT-Pro-B Natriuret Pep Total Protein Albumin TSH Arterial Blood Glucose Arterial Blood Ionized Calcium Urine WBC (Auto) Crossmatch 11/09/20 11/09/20 03:43 09:22 WBC RBC Hgb Hct RDW Seg Neuts % (Manual) Lymphocytes % (Manual) Seg Neutrophils # Man Lymphocytes # (Manual) Monocytes # (Manual) PT INR APTT D-Dimer Heparin Anti-Xa Level ABG pH POC ABG pCO2 POC ABG pO2 ABG Hemoglobin ABG Oxyhemoglobin ABG Sodium ABG Potassium ABG Chloride ABG Glucose Carboxyhemoglobin Sodium Potassium Chloride Carbon Dioxide BUN Creatinine Glucose POC Glucose 117 H 111 H Lactic Acid Calcium Lactate Dehydrogenase C-Reactive Protein NT-Pro-B Natriuret Pep Total Protein Albumin TSH Arterial Blood Glucose Arterial Blood Ionized Calcium Urine WBC (Auto) Crossmatch Chest x-ray: image reviewed (LLL small volume atelectasis) Allied health notes reviewed: nursing
--- NOTE | 2020-11-10 11:26 | Progress Note ---
Assessment and Plan Assessment and plan: This is a 70-year-old male with hypertension and hypothyroidism who was admitted with a CVA (neurology consulted, stroke pathway initiated),CHF, bilateral pneumonia, COVID 19 PUI and acute hypoxic respiratory failure. 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 Acute hypoxic respiratory failure Acute on chronic systolic heart failure with exacerbation Pneumonia Cardiomyopathy Left bundle branch block Leukocytosis Hyperkalemia Hyperchloremia Urinary tract infection Acute right leg thrombosis Acute kidney injury Cardiomyopathy Left atrial appendage thrombus Anemia s/p 4 units PRBC Hypertension Hypothyroidism -CCM, cardiology, neurology, vascular surgery, nephrology,general surgery, infectious disease, hematology/oncology, GI, surgery, WOCN, ST/PT/OT consulted, appreciate recommendations -10/23 CT head shows no acute findings, periventricular areas of low attenuation suggestive of nonspecific white matter change, concern for acute ischemic change -10/23 CTA chest shows findings suggestive of mild congestive failure, negative for pulmonary embolism -10/23 CT head with contrast shows no indication of intracranial stenosis or large vessel occlusion -10/23 CTA neck shows no indication of hemodynamically significant stenosis the carotid bifurcations are also clear, right larger than left pleural effusion, remote ACDF at C5-C6 and C6-C7 levels, multifocal neuroforaminal narrowing, mild central canal stenosis evident at C5-C6 level -10/23 bilateral carotid ultrasound shows no significant stenosis -10/23 echocardiogram shows left ventricle moderately dilated, borderline concentric left ventricular hypertrophy, impaired LV relaxation, moderate left ventricular diastolic dysfunction, left ventricular end-diastolic pressure is moderately elevated, no left ventricle thrombus noted in the study, mildly dilated right ventricle, mildly dilated left atrium, saline bubble contrast intravenous injection does not demonstrate PFO, the ventricle systolic function is mild to moderately decreased, LVEF is 35 to 40% with hypokinesis of the septal and inferior wall, moderate to severe hypokinesis in the inferior wall, moderate hypokinesis of the mid inferior septal wall, moderate hypokinesis of the apical septal wall, trace TR, RVSP is 23 mmHg. -10/25 MRI Brain shows acute infarction in the left middle cerebral artery without hemorrhagic conversion -11/02 bilateral lower extremity Doppler ultrasound shows occlusive thrombus in the peroneal vein -11/02 s/p right lower extremity emergent embolectomy with right 4 compartment fasciotomy with vascular surgery -11/03 MRI brain shows interval evolutionary changes of the patchy areas of infarction along the left trigonal region, development of 7 mm focus of acute infarction involving more superior left frontoparietal junction -11/04 abdominal x-ray shows persistent abdominal distention -11/04 renal ultrasound shows findings of medical renal disease without other significant sonographic abnormality -11/05 abdominal x-ray shows increasing bowel distention appears to be predo minantly in the colon, moderate/large chronic stool with no free air -11/05 CT head shows decreased attenuation along the superior parietal lobe compatible with evolving infarction without intracranial hemorrhage or other acute abnormality/interval changes -11/07 abdominal x-ray shows abundant fecal material noted throughout the colon and rectal vault consistent with history of constipation which are minimally improved when compared to 11/05, gas-filled and distended bowel loops are similar to prior exam -11/07 CT head shows evolving infarcts involving the left temporoparietal to the left frontoparietal lobes since 11/05 -11/08 abdomen/pelvis CT shows mild diffuse dilation of small bowel loops and proximal colon with evidence of pneumatosis concerning for ischemic bowel, small ascites but no evidence of free air or fluid collection, diffuse ileus also suspected, mild cardiomegaly with trace pericardial effusion, few tiny gallstones in the gallbladder with out abnormal dilation or wall thickening. -11/08 s/p exploratory laparotomy, small bowel resection; intaop findings: 1. Segmental infarcts of distal small intestine with pneumatosis intestinalis present - approximately 30 cm of small bowel resected, 2. SMA with strongly palpable pulse., 3. Large stool burden in left colon -11/10 Limited echocardiogram shows left ventricular systolic function moderately decreased, LVEF 35 to 40%, mild concentric LVH, trace pericardial effusion adjacent to the right ventricle, pulmonary valve is normal in structure, tricuspid valve is normal in structure -IV antibiotics -Vasopressor support with Levophed -Aspirin 325, Lipitor, BB (on hold per surgery as pt is strict NPO) -Mechanical ventilation, wean as tolerated, VAP bundle -HIT panel negative -SSI -IV antibiotics -Continue home Synthroid, converted to IV -Hold antihypertensive regimen in setting of hypotension and the use of vasopressors -Fentanyl gtt -Transfuse for hbg <7 -TPN -Soapsuds enema/duculox suppository -Trend CBC, BMP DVT/GI prophylaxis: SCDs to bilateral extremities while in bed, Protonix, heparin gtt (on hold for surgery 11/10) Disposition: ICU The high probability of a clinically significant, sudden or life threatening deterioration of the [cardiac, respiratory and hemodynamic] system(s) required my full and direct attention, intervention and personal management. The aggregate critical care time was [32] minutes. This time is in addition to time spent performing reported procedures but includes the following: [x] Data Review and interpretation [x] Patient assessment and monitoring of vital signs [x] Documentation [x] Medication orders and management History Interval history: This is a 70-year-old male with hypertension and hypothyroidism who presented to the emergency department on 10/23 with confusion, weakness, exercise intolerance, shortness of breath on exertion, increased bedbound status and decreased oral intake with progressively worsened over the past 2 days prior to presentation. Patient was found to have clinical symptoms consistent with a CVA (neurology consulted, stroke pathway initiated) CHF, bilateral pneumonia, and acute hypoxic respiratory failure. Patient was initiated coronavirus, pneumonia and CHF protocol. Cardiology was consulted in the emergency department. 10/24/2020: Acute CVA with right hemiparesis , PT and OT 10/25/2020: Acute CVA with right hemiplegia, Rehab consult requested, Ejection fraction is 35 to 40% 10/26/2020:patient with acute CVA and right-sided hemiparesis, PT evaluated the patient and recommended acute rehab, Case management processing the request, Possible discharge in 1 to 2 days if stable 10/27/2020: patient is clinically stable, awaiting rehab/SNF placement. DC planning per Case management., Neuro recommend KELLY[possible embolic CVA] follow KELLY 10/28/20: patient is doing slightly better. No new complain. Clinically stable, Patient is going for KELLY today., DC planning to rehab/SNF when cleared by neurology., DC planning per case management 10/29/20: patient is doing slightly better. No new complain. Clinically stable, continue physical therapy occupational therapy, Patient is going for KELLY on Sunday, DC planning to rehab/SNF after KELLY on Sunday, DC planning per case management 10/30/20: patient is sitting in chair. No new complain. Clinically stable, continue physical therapy occupational therapy, Patient is going for KELLY on Sunday, Awaiting DC planning to rehab/SNF after KELLY on Sunday. 10/31/20: patient is seen and examined. No new complain. Clinically stable, continue physical therapy occupational therapy., Patient is going for KELLY on Sunday., Awaiting DC planning to rehab/SNF after KELLY on Sunday. 11/01/20: Patient is seen and examined, Patient with acute CVA and right-sided hemiparesis. Patient is evaluated by PT and recommended acute rehab Patient is going for KELLY today, Patient is waiting for DC planning to rehab/SNF after KELLY. housekeeper/custodian/laundry worker is working on discharge planning. Patient has chosen [facility] and awaiting authorization. 11/02/2020. KELLY revealed left atrial appendage thrombus. Mildly dilated left ventricle with mild left ventricular hypertrophy with moderate global left ventricular hypokinesis with EF of 40 to 45%. Anticoagulation per cardiology recommendations. Physical therapy recommendations for acute rehab. 11/03/2020. Patient appears to have worsening aphasia and worsening right-sided weakness today per neurology. MRI brain stat. Leukocytosis likely leukemoid reaction from compartment syndrome. Patient is s/p right lower extremity thombectomy with 4 compartment fasciotomy yesterday. Bleeding from incisions over night. Consider ID consultation. Start empiric antibiotics. 11/04/2020. Patient decompensated yesterday evening with hypotension and worsening mental status. Patient was started on vasopressors and intubated. Patient is currently intubated and on fentanyl for sedation. Patient with worsening leukocytosis. Lactic acidosis likely secondary to compartment syndrome. Patient is s/p right lower extremity thombectomy with 4 compartment fasciotomy on 11/02/2020. Levaquin started empirically yesterday. ID consultation today. Patient also with worsening creatinine secondary to acute kidney injury. 11/05/2020. Patient attempted to pull out his ETT while I was examining him. Continue restraints for safety. Patient did manage to pull out his Winkler catheter and now has hematuria. We will irrigate the bladder and monitor closely patient is on anticoagulation with IV heparin. Continue Levophed drip to maintain MAP >65. Patient currently with mechanical ventilation AC mode rate of 12, tidal volume 500, FiO2 30% and a PEEP of 6. Continue fentanyl for sedation. Consult hematology hypercoagulable state given the arterial and venous thrombi. 11/06/2020. Hematology ordered argatroban and steroid pulse therapy. Follow work-up to rule out HIT. Follow-up pF4 Ab testing, Hgb electrophoresis, cardiolipin ab. Continue Levophed drip to maintain MAP >65. Patient currently with mechanical ventilation AC mode rate of 12, tidal volume 500, FiO2 30% and a PEEP of 6. Continue fentanyl for sedation. Continue antibiotics of cefepime and vancomycin. Sputum, blood and urine cultures are negative. Continue restraints for safety. 11/07/2020. Continue steroid pulse therapy per hematology recommendations. Argatroban on hold for GI bleeding and hematuria. Follow-up HIT panel and pF4 Ab testing, Hgb electrophoresis, cardiolipin ab. Continue Levophed drip to maintain MAP >65. Patient currently with mechanical ventilation AC mode rate of 12, tidal volume 500, FiO2 30% and a PEEP of 6. Continue fentanyl for sedation. Continue antibiotics of cefepime and vancomycin. Sputum, blood and urine cultures are negative. Continue restraints for safety. 11/08: CT abd/pelvis obtained today is concerning for ischemic bowels, surgery was consulted. This morning patient was on CPAP trial 03/30 at the time my examination patient is on vasopressor support with Levophed and his HIT panel is pending. He was sedated on 1 mcg of fentanyl. Lab work this morning shows leukocytosis, anemia (transfuse 1 unit PRBC), hyperkalemia (received D50 and insulin), hypochloremia and increasing BUN/creatinine. 11/09: S/p ex lap and small bowel resection on 11/08 with surgery, patient was restarted argatroban drip per surgery, HIT panel negative. CCM will start on low-dose heparin drip. Patient was given 2 g of calcium for his K 5 by nephrology. Surgery plans to return to the OR tomorrow for reexploration with possible anastomosis and abdominal closure. At the time of my examination he is sedated on propofol, fentanyl and vasopressor support with Levophed. Patient is on assist control tidal volume 500, rate 18, PEEP of 6, FiO2 25%. 11/10: Patient noted to be anemic today, PRBC transfusion ordered. Patient has 2 units ready for OR, per RN hem/onc is requesting 2 units of PRBC to be t ransfused. Will obtain post transfusion h/h. Planned for OR today. At the time of my examination he is sedated on propofol, fentanyl and vasopressor support with Levophed. Patient is on assist control tidal volume 500, rate 12, PEEP of 6, FiO2 25%. Pericardial effusion noted as incidental finding with imaging and cardio will conduct a limited echo to quantify amount. Hospitalist Physical - Constitutional Vitals: Temp Pulse Resp BP Pulse Ox 97.8 F 70 12 113/59 100 11/10/20 10:50 11/10/20 11:00 11/10/20 11:00 11/10/20 11:00 11/10/20 11:00 General appearance: Present: no acute distress, other (Intubated, sedated) - EENT Eyes: Present: PERRL ENT: poor dentition - Respiratory Respiratory effort: normal Respiratory: bilateral: diminished - Cardiovascular Rhythm: regular Heart Sounds: Present: S1 & S2. Absent: systolic murmur, diastolic murmur - Extremities Extremities: no ischemia, pulses intact, pulses symmetrical, normal temperature, normal color Extremity abnormal: edema Peripheral Pulses: within normal limits - Abdominal General gastrointestinal: soft, non-tender, non-distended, normal bowel sounds - Integumentary Integumentary: Present: warm, dry - Psychiatric Psychiatric: other (sedated) - Neurologic Neurologic: other (sedated) - Allied Health Allied health notes reviewed: nursing, RT, social work HEART Score - HEART Score Troponin: Troponin T 0.026 ng/mL (0.00-0.029) 10/23/20 16:39 Results - Labs CBC & Chem 7: 11/10/20 05:30 11/10/20 05:30 Labs: Laboratory Last Values WBC 19.0 K/mm3 (4.5-11.0) H 11/09/20 03:21 RBC 2.51 M/mm3 (3.65-5.03) L 11/09/20 03:21 Hgb 6.6 gm/dl (11.8-15.2) L 11/10/20 05:30 Hct 19.9 % (35.5-45.6) L* 11/10/20 05:30 MCV 88 fl (84-94) 11/09/20 03:21 MCH 30 pg (28-32) 11/09/20 03:21 MCHC 34 % (32-34) 11/09/20 03:21 RDW 15.3 % (13.2-15.2) H 11/09/20 03:21 Plt Count 156 K/mm3 (140-440) 11/10/20 05:30 Lymph % (Auto) 27.8 % (13.4-35.0) 10/23/20 13:32 [place] % (Auto) 6.0 % (0.0-7.3) 10/23/20 13:32 Eos % (Auto) 1.6 % (0.0-4.3) 10/23/20 13:32 Baso % (Auto) 0.7 % (0.0-1.8) 10/23/20 13:32 Lymph # (Auto) 1.5 K/mm3 (1.2-5.4) 10/23/20 13:32 [place] # (Auto) 0.3 K/mm3 (0.0-0.8) 10/23/20 13:32 Eos # (Auto) 0.1 K/mm3 (0.0-0.4) 10/23/20 13:32 Baso # (Auto) 0.0 K/mm3 (0.0-0.1) 10/23/20 13:32 Add Manual Diff Complete 11/09/20 03:21 Total Counted 100 11/09/20 03:21 Seg Neutrophils % Basket Bottom Machine Operator 11/09/20 03:21 Seg Neuts % (Manual) 89.0 % (40.0-70.0) H 11/09/20 03:21 Lymphocytes % (Manual) 6.0 % (13.4-35.0) L 11/09/20 03:21 Monocytes % (Manual) 5.0 % (0.0-7.3) 11/09/20 03:21 Metamyelocytes % 1.0 % 11/04/20 04:00 Nucleated RBC % Not Reportable 11/09/20 03:21 Seg Neutrophils # 3.4 K/mm3 (1.8-7.7) 10/23/20 13:32 Seg Neutrophils # Man 16.9 K/mm3 (1.8-7.7) H 11/09/20 03:21 Band Neutrophils # 0.0 K/mm3 11/09/20 03:21 Lymphocytes # (Manual) 1.1 K/mm3 (1.2-5.4) L 11/09/20 03:21 Abs React Lymphs (Man) 0.0 K/mm3 11/09/20 03:21 Monocytes # (Manual) 1.0 K/mm3 (0.0-0.8) H 11/09/20 03:21 Eosinophils # (Manual) 0.0 K/mm3 (0.0-0.4) 11/09/20 03:21 Basophils # (Manual) 0.0 K/mm3 (0.0-0.1) 11/09/20 03:21 Metamyelocytes # 0.0 K/mm3 11/09/20 03:21 Myelocytes # 0.0 K/mm3 11/09/20 03:21 Promyelocytes # 0.0 K/mm3 11/09/20 03:21 Blast Cells # 0.0 K/mm3 11/09/20 03:21 WBC Morphology Not Reportable 11/09/20 03:21 Hypersegmented Neuts Not Reportable 11/09/20 03:21 Hyposegmented Neuts Not Reportable 11/09/20 03:21 Hypogranular Neuts Not Reportable 11/09/20 03:21 Smudge Cells Not Reportable 11/09/20 03:21 Toxic Granulation Not Reportable 11/09/20 03:21 Toxic Vacuolation Not Reportable 11/09/20 03:21 Dohle Bodies Not Reportable 11/09/20 03:21 Pelger-Huet Anomaly Not Reportable 11/09/20 03:21 Demario Rods Not Reportable 11/09/20 03:21 Platelet Estimate Consistent w auto 11/09/20 03:21 Clumped Platelets Not Reportable 11/09/20 03:21 Plt Clumps, EDTA Not Reportable 11/09/20 03:21 Large Platelets Not Reportable 11/09/20 03:21 Giant Platelets Not Reportable 11/09/20 03:21 Platelet Satelliting Not Reportable 11/09/20 03:21 Plt Morphology Comment Not Reportable 11/09/20 03:21 RBC Morphology Not Reportable 11/09/20 03:21 Dimorphic RBCs Not Reportable 11/09/20 03:21 Polychromasia Not Reportable 11/09/20 03:21 Hypochromasia 1+ 11/09/20 03:21 Poikilocytosis Not Reportable 11/09/20 03:21 Anisocytosis 1+ 11/09/20 03:21 Microcytosis Not Reportable 11/09/20 03:21 Macrocytosis Not Reportable 11/09/20 03:21 Spherocytes Not Reportable 11/09/20 03:21 Pappenheimer Bodies Not Reportable 11/09/20 03:21 Sickle Cells Not Reportable 11/09/20 03:21 Target Cells Not Reportable 11/09/20 03:21 Tear Drop Cells Not Reportable 11/09/20 03:21 Ovalocytes Not Reportable 11/09/20 03:21 Helmet Cells Not Reportable 11/09/20 03:21 Oliva-Minkler Bodies Not Reportable 11/09/20 03:21 [place] Rings Not Reportable 11/09/20 03:21 [place] Cells Not Reportable 11/09/20 03:21 Bite Cells Not Reportable 11/09/20 03:21 Crenated Cell Not Reportable 11/09/20 03:21 Elliptocytes Not Reportable 11/09/20 03:21 Acanthocytes (Spur) Not Reportable 11/09/20 03:21 Rouleaux Not Reportable 11/09/20 03:21 Hemoglobin C Crystals Not Reportable 11/09/20 03:21 Schistocytes Not Reportable 11/09/20 03:21 Malaria parasites Not Reportable 11/09/20 03:21 Lico Bodies Not Reportable 11/09/20 03:21 Hem Pathologist Commnt No 11/09/20 03:21 PT 16.2 Sec. (12.2-14.9) H 11/02/20 19:55 INR 1.30 (0.87-1.13) H 11/02/20 19:55 APTT 50.8 Sec. (24.2-36.6) H 11/09/20 03:21 D-Dimer 4139.61 ng/mlDDU (0-234) H 10/23/20 18:23 Heparin Anti-Xa Level 0.61 U.I./ml (0.3-0.7) 11/09/20 20:23 Heparin Anti-Xa, Unfract Negative (Negative) 11/06/20 Unknown ABG pH 7.494 (7.320-7.450) H 11/08/20 03:38 POC ABG pCO2 36.6 mmHg (32.0-48.0) 11/08/20 03:38 POC ABG pO2 111.5 mmHg (83-108) H 11/08/20 03:38 POC ABG HCO3 27.5 11/08/20 03:38 ABG O2 Saturation 98.4 (0-100) 11/08/20 03:38 POC ABG Base Excess 3.9 11/08/20 03:38 ABG Hemoglobin 6.7 (12.0-17.5) L 11/08/20 03:38 ABG Oxyhemoglobin 97.0 (94-98) 11/08/20 03:38 ABG Methemoglobin 0.3 (0.0-1.5) 11/08/20 03:38 ABG Sodium 141.1 mmol/L (136.0-145.0) 11/08/20 03:38 ABG Potassium 4.9 mmol/L (3.40-4.50) H 11/08/20 03:38 ABG Chloride 112.0 mmol/L (98-107) H 11/08/20 03:38 ABG Glucose 153 mg/dL (65-95) H 11/08/20 03:38 Carboxyhemoglobin 1.1 (0.5-1.5) 11/08/20 03:38 FiO2 % 25.0 11/08/20 03:38 Sodium 142 mmol/L (137-145) 11/10/20 05:30 Potassium 4.9 mmol/L (3.6-5.0) 11/10/20 05:30 Chloride 111.3 mmol/L (98-107) H 11/10/20 05:30 Carbon Dioxide 29 mmol/L (22-30) 11/10/20 05:30 Anion Gap 7 mmol/L 11/10/20 05:30 BUN 74 mg/dL (9-20) H 11/10/20 05:30 Creatinine 2.3 mg/dL (0.8-1.3) H 11/10/20 05:30 Estimated GFR 34 ml/min 11/10/20 05:30 BUN/Creatinine Ratio 32 % 11/10/20 05:30 Glucose 119 mg/dL (75-100) H 11/10/20 05:30 POC Glucose 102 mg/dL (70-105) 11/10/20 03:36 Lactic Acid 1.30 mmol/L (0.7-2.0) 11/04/20 13:01 Calcium 7.1 mg/dL (8.4-10.2) L 11/10/20 05:30 Ionized Calcium 4.7 mg/dL (4.8-5.6) L 11/06/20 06:00 Phosphorus 2.90 mg/dL (2.5-4.5) 11/10/20 05:30 Magnesium 4.40 mg/dL (1.7-2.3) H 11/10/20 05:30 Ferritin 238.5 ng/mL (30.0-300.0) 10/23/20 18:23 Total Bilirubin 0.50 mg/dL (0.1-1.2) 11/08/20 19:11 Direct Bilirubin < 0.2 mg/dL (0-0.2) 11/08/20 19:11 Indirect Bilirubin 0.3 mg/dL 11/08/20 19:11 AST 21 units/L (5-40) 11/08/20 19:11 ALT 27 units/L (7-56) 11/08/20 19:11 Alkaline Phosphatase 41 units/L (35-129) 11/08/20 19:11 Lactate Dehydrogenase 334 units/L (91-180) H 10/23/20 18:23 Troponin T 0.026 ng/mL (0.00-0.029) 10/23/20 16:39 C-Reactive Protein 8.30 mg/dL (0.00-1.30) H 11/04/20 13:01 NT-Pro-B Natriuret Pep 5806 pg/mL (0-900) H 10/23/20 13:32 Total Protein 3.8 g/dL (6.3-8.2) L 11/08/20 19:11 Albumin 2.2 g/dL (3.9-5) L 11/08/20 19:11 Albumin/Globulin Ratio 1.4 % 11/08/20 19:11 Triglycerides 63 mg/dL (2-149) 11/10/20 05:30 Cholesterol 139 mg/dL (50-199) 10/24/20 09:29 LDL Cholesterol Direct 87 mg/dL (50-130) 10/24/20 09:29 HDL Cholesterol 46 mg/dL (40-59) 10/24/20 09:29 Cholesterol/HDL Ratio 3.02 % 10/24/20 09:29 Serotonin Release Assay See scanned result 11/06/20 Unknown Procalcitonin 0.99 ng/mL (<0.15) 11/03/20 21:14 TSH 6.540 mlU/mL (0.270-4.200) H 10/23/20 18:23 TSH 7.100 mlU/mL (0.270-4.200) H 10/23/20 18:23 Free T4 1.33 ng/dL (0.76-1.46) 10/23/20 18:23 Arterial Blood Glucose 153 mg/dL (65-95) H 11/08/20 03:38 Arterial Blood Ionized Calcium 4.5 mg/dL (4.6-5.3) L 11/08/20 03:38 Urine Color Yellow (Yellow) 11/04/20 11:00 Urine Turbidity Hazy (Clear) 11/04/20 11:00 Urine pH 5.0 (5.0-7.0) 11/04/20 11:00 Ur Specific [place] 1.017 (1.003-1.030) 11/04/20 11:00 Urine Protein 30 mg/dl mg/dL (Negative) 11/04/20 11:00 Urine Glucose (UA) 50 mg/dL (Negative) 11/04/20 11:00 Urine Ketones Neg mg/dL (Negative) 11/04/20 11:00 Urine Blood Neg (Negative) 11/04/20 11:00 Urine Nitrite Neg (Negative) 11/04/20 11:00 Urine Bilirubin Neg (Negative) 11/04/20 11:00 Urine Urobilinogen < 2.0 mg/dL (<2.0) 11/04/20 11:00 Ur Leukocyte Esterase Tr (Negative) 11/04/20 11:00 Urine WBC (Auto) 19.0 /HPF (0.0-6.0) H 11/04/20 11:00 Urine RBC (Auto) 3.0 /HPF (0.0-6.0) 11/04/20 11:00 U Epithel Cells (Auto) < 1.0 /HPF (0-13.0) 11/04/20 11:00 Urine Mucus Few /HPF 11/04/20 11:00 Urine Eosinophils None seen (None Seen) 11/04/20 12:50 Urine Creatinine < 4.2 mg/dL (0.1-20.0) 11/04/20 12:50 Urine Sodium 10 mmol/L 11/04/20 12:50 Random Vancomycin 10.7 ug/mL (0-40.0) 11/08/20 04:39 Heparin-induced Plt Ab Negative (Negative) 11/06/20 Unknown UF Heparin High Dose 0 % Release 11/06/20 Unknown DYLAN UFH Low Dose 0.1 0 % Release 11/06/20 Unknown DYLAN UFH Low Dose 0.5 0 % Release 11/06/20 Unknown Coronavirus (PCR) Negative (Negative) 10/24/20 09:57 Blood Type O POSITIVE 11/08/20 11:15 Antibody Screen Negative 11/08/20 11:15 Crossmatch See Detail 11/08/20 11:15 Microbiology: Microbiology 11/04/20 13:01 Peripheral/Venous Blood Culture - Final NO GROWTH AFTER 5 DAYS 11/04/20 13:01 Peripheral/Venous Blood Culture - Final NO GROWTH AFTER 5 DAYS Winkler/IV: Voiding Method Indwelling Catheter Active Medications - Current Medications Current Medications: Generic Name Dose Route Start Last Admin Trade Name Freq PRN Reason Stop Dose Admin Bisacodyl 10 mg 11/08/20 22:00 11/10/20 09:00 Bisacodyl 10 Mg Rect Supp AR 10 mg BID ALEX Administration Dextrose 50 ml 11/08/20 08:04 Dextrose 50% In Water (25gm) 50 Ml Syringe IV Q30MIN PRN Hypoglycemia Protocol Fentanyl 50 mcg 11/03/20 16:46 Fentanyl 100 Mcg/2 Ml Inj IV Q10MIN PRN ANALGESIA Hydrophilic Ointment 1 applic 11/03/20 16:46 Lip Therapy Vaseline TP Q2HR PRN Dry Lips Fentanyl Citrate 2,000 mcg in 100 mls @ 4.86 mls/hr 11/03/20 17:24 11/10/20 05:52 Fentanyl Drip Premix IV 3 mcg/kg/hr TITR ALEX 14.58 mls/hr Administration Protocol 1 MCG/KG/HR NORepinephrine/NS 8 MG-250 ML 8 mg in 250 mls @ 3.75 mls/hr 11/03/20 18:00 11/10/20 04:00 Norepinephrine/Ns 8 Mg-250 Ml (Double Conc) IV 8 mcg/min TITRATE ALEX 15 mls/hr Titration Protocol 2 MCG/MIN Cefepime HCl 2 gm in 100 mls @ 200 mls/hr 11/08/20 22:00 11/09/20 22:55 Cefepime/Ns 2 Gm/100 Ml IV Infused Q24H ALEX Infusion Protocol Dextrose/Sodium Chloride 1,000 mls @ 100 mls/hr 11/08/20 17:00 11/10/20 01:29 D5/0.45ns IV 100 mls/hr DIRECT ALEX Administration Propofol 1,000 mg in 100 mls @ 3.126 mls/hr 11/08/20 17:00 11/10/20 04:00 Diprivan 10 Mg/Ml IV 10 mcg/kg/min TITR ALEX 6.252 mls/hr Titration Protocol 5 MCG/KG/MIN Metronidazole 500 mg in 100 mls @ 100 mls/hr 11/08/20 17:00 11/10/20 09:00 Flagyl 500 Mg/100 Ml IV 100 mls/hr Q8H ALEX Administration Protocol Heparin Sodium/Sodium Chloride 25,000 unit in 500 mls @ 30 mls/hr 11/09/20 13:00 11/10/20 05:44 Heparin/ 0.45% Nacl-25,000 Unit/500 Ml IV 0 units/hr TITR ALEX 0 mls/hr Titration Protocol 1,500 UNITS/HR Sodium Chloride 500 mls @ 0 mls/hr 11/10/20 07:56 Nacl 0.9% 500 Ml IV 11/10/20 23:59 ONCE NR As Directed Sodium Chloride 500 mls @ 0 mls/hr 11/10/20 09:30 Nacl 0.9% 500 Ml IV 11/10/20 21:00 ONCE ALEX As Directed Insulin Human Regular 0 units 11/08/20 09:00 11/10/20 10:37 Insulin Regular, Human 100 Units/1 Ml SUB-Q Not Given Q6H ALEX Protocol Levothyroxine Sodium 75 mcg 11/09/20 06:00 11/10/20 06:06 Levothyroxine 100 Mcg Inj IV 75 mcg DAILY@0600 ALEX Administration Multi-Ingred Cream/Lotion/Oil/Oint 1 applic 11/03/20 16:46 Mineral Oil/Petrolatum, White Ophth Oint 3.5 Gm OU Q4HR PRN Dry Eye(s) Ondansetron HCl 4 mg 10/23/20 20:00 11/07/20 23:09 Ondansetron 4 Mg/2 Ml Inj IV 4 mg Q8H PRN Administration Nausea And Vomiting Pantoprazole Sodium 40 mg 11/07/20 22:00 11/10/20 09:00 Pantoprazole 40 Mg Inj IV 40 mg BID ALEX Administration Sodium Chloride 10 ml 10/23/20 20:00 11/08/20 21:24 Sodium Chloride 0.9% 10 Ml Flush Syringe IV 10 ml PRN PRN Administration LINE FLUSH Nutrition/Malnutrition Assess - Dietary Evaluation Nutrition/Malnutrition Findings: Nutrition Notes Start: 10/24/20 11:33 Freq: Status: Active Protocol: Document 11/10/20 10:41 TERRY (Rec: 11/10/20 10:53 TERRY [email or web address]) Co-Sign 11/10/20 10:41 BETHEL Nutrition Notes Need for Assessment generated from: MD Order Initial or Follow up Reassessment Current Diagnosis Acute Kidney Injury, Hypertension,Heart Failure, Respiratory Failure,Stroke Other Pertinent Diagnosis pneumatosis intestinalis Current Diet Cardiac Diet Labs/Tests Cl 111.3 BUN 74 Cr 2.3 BG 119 Ca 7.1 P 4.4 Pertinent Medications D5 1/2NS 100ml/hr Propofol 10mcg/kg/min Dulcolax Norepinephine Height 5 ft 11 in Weight 104.2 kg [place] Body Weight (kg) 78.18 BMI 32.0 Weight Status Overweight Subjective/Other Information MD order for write/manage TPN. Pt did not tolerate TF and has no intakes x4 days. 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 Pt has central line available for TPN, per RN. Percent of energy/protein needs met: 0%/0% Burn Absent Trauma Absent Current % PO Negligible Minimum of two criteria No physical signs of malnutrition #2 Nutrition Diagnosis Inadequate oral intake Diagnosis Progress(for reassessment Continues documentation) Is patient on ventilator? Yes Is Patient Ambulatory and/or Out of Bed No REE-([facility]-confined to bed) 2194.416 Kcal/Kg value to use for calculation 18 Approximate Energy Requirements Using 1876 kcal/Kg Additional Notes Protein: >156 g (>2 g/kg IBW) Fluid: 1 ml/kcal Nutrition Intervention Change Diet Order: Start CPN Nutrition Support: Start CPN at 75 ml/hr: 8.3% dextrose, 4.2% AA, 75 meq Na, 5 meq Ca, 40/60 Cl/CO2, MVI, Thiamine. Osmolality: 922 mOsm Kcal 810 Protein (gm) 75 Carbohydrates (gm) 150 Fluid (mL) 1,800 Goal #1 Meet at least 75% of energy and protein needs via TPN Anticipated Discharge Needs: Unable to determine at the moment. Follow-Up By: 11/11/20 Additional Comments Labs in AM: BMP, Mag, Phos
--- NOTE | 2020-11-10 12:03 | Progress Note ---
Assessment and Plan Acute hypoxemic respiratory failure. Acute embolic cerebrovascular accident. Acute limb ischemia, status post thrombectomy. Left atrial appendage. Acute congestive heart failure exacerbation. Obesity. History of hypothyroidism. Leukocytosis. Acute encephalopathy, toxic metabolic - 2 units PRBC - continue low intensity Heparin I.V. and follow H&H - Keep NPO - G.I. input noted - continue accuchecks q6h - wean Levophed for target MAP > 65 mmHg (6 cortes's/min now) - complete antiinfective's per ID recommendation - azotemia per nephrology team - continue care as below otherwise; - continue to wean supplemental oxygen for target O2 sat's > 90% acutely - VAP bundle addressed - continue lung protective strategies - continue bronchodilators with pulmonary hygiene per RT - wean per pulmonary driven protocols otherwise - avoid nephrotoxins, renally dose all medications - continue Daily SAT and SBT assessment as tolerated - continue accuchecks with glycemic control per SSI (While critically ill target blood glucose of 140-180 mg/dL; avoid hypoglycemia) - sedation prn for target RASS 0 to -1 - continue to avoid benzodiazepine's, reduce the possibility of delirium - complete AB's per ID rec's - prn analgesia per CPOT score - Maintenance of sleep-wake cycle, avoid delirium - continue enteral nutritional support at goal rate as tolerated - G.I. & VTE prophylaxis - PT/OT/ROM exercises - continue mobility protocols for pressure ulcer prophylaxis - Monitor hemodynamics closely - continue other care per attending / other consultants - discharge planning ongoing concurrently .... Re-evaluate in am & prn CONDITION: CRITICAL PROGNOSIS: GUARDED CODE STATUS: FULL CODE The high probability of a clinically significant, sudden or life-threatening deterioration of the [respiratory, cardiovascular, renal & neurologic] system(s) required my full and direct attention, intervention and personal management. The aggregate critical care time was [32] minutes without overlap. Time includes spent on; [x] Data Review and interpretation [x] Patient assessment and monitoring of vital signs [x] Documentation [x] Medication orders and management Subjective Date of service: 11/10/20 Principal diagnosis: Ac hypoxemic resp failure; CVA; Acute limb ischemia; Acute encephalopathy Interval history: Patient is seen today for: Acute hypoxemic respiratory failure; Acute embolic CVA; Acute limb ischemia; Left atrial appendage; Acute CHF; Obesity; Acute encephalopathy, toxic metabolic Seen and examined at bedside; 24hour events reviewed; nursing and respiratory care staff consulted; no adverse overnight events reported to me; resting peacefully in bed; AMS is persistent; well sedated on Propofol & Versed; SBT's on hold; tentatively back to O.R. today; receiving 2 units PRBC's for Hb 6.6 re: Anemia and O.R. plan Objective Vital Signs - 12hr 11/09/20 11/09/20 11/09/20 23:15 23:31 23:45 Temperature Pulse Rate 69 69 71 Pulse Rate [ From Monitor] Respiratory 12 12 14 Rate Blood Pressure 87/48 98/49 97/52 O2 Sat by Pulse 100 100 100 Oximetry 11/10/20 11/10/20 11/10/20 00:00 00:15 00:30 Temperature 98.8 F Pulse Rate 71 72 71 Pulse Rate [ 71 From Monitor] Respiratory 12 12 12 Rate Blood Pressure 101/52 97/50 97/50 O2 Sat by Pulse 100 100 100 Oximetry 11/10/20 11/10/20 11/10/20 00:46 01:00 01:15 Temperature Pulse Rate 71 75 73 Pulse Rate [ From Monitor] Respiratory 12 16 19 Rate Blood Pressure 99/54 105/57 106/55 O2 Sat by Pulse 100 100 100 Oximetry 11/10/20 11/10/20 11/10/20 01:30 01:45 02:00 Temperature Pulse Rate 73 73 74 Pulse Rate [ From Monitor] Respiratory 12 14 12 Rate Blood Pressure 106/55 113/57 103/58 O2 Sat by Pulse 100 100 100 Oximetry 11/10/20 11/10/20 11/10/20 02:15 02:30 02:45 Temperature Pulse Rate 75 74 76 Pulse Rate [ From Monitor] Respiratory 11 L 12 12 Rate Blood Pressure 103/56 102/55 102/55 O2 Sat by Pulse 100 100 100 Oximetry 11/10/20 11/10/20 11/10/20 03:00 03:15 03:30 Temperature Pulse Rate 74 74 76 Pulse Rate [ From Monitor] Respiratory 13 12 17 Rate Blood Pressure 116/63 116/62 106/60 O2 Sat by Pulse 100 100 100 Oximetry 11/10/20 11/10/20 11/10/20 03:45 04:00 04:05 Temperature 98.8 F Pulse Rate 76 76 81 Pulse Rate [ 76 From Monitor] Respiratory 13 14 Rate Blood Pressure 106/57 101/60 101/60 O2 Sat by Pulse 100 100 100 Oximetry 11/10/20 11/10/20 11/10/20 04:15 04:30 04:45 Temperature Pulse Rate 74 74 84 Pulse Rate [ From Monitor] Respiratory 12 12 12 Rate Blood Pressure 100/55 98/52 112/61 O2 Sat by Pulse 100 100 100 Oximetry 11/10/20 11/10/20 11/10/20 05:00 05:15 05:30 Temperature Pulse Rate 87 72 70 Pulse Rate [ From Monitor] Respiratory 11 L 12 12 Rate Blood Pressure 110/56 93/51 91/53 O2 Sat by Pulse 100 100 100 Oximetry 11/10/20 11/10/20 11/10/20 05:45 06:00 06:15 Temperature Pulse Rate 69 70 71 Pulse Rate [ From Monitor] Respiratory 12 12 13 Rate Blood Pressure 96/52 93/50 95/52 O2 Sat by Pulse 100 100 100 Oximetry 11/10/20 11/10/20 11/10/20 06:30 06:45 07:00 Temperature Pulse Rate 71 71 71 Pulse Rate [ From Monitor] Respiratory 11 L 11 L 12 Rate Blood Pressure 105/58 113/55 112/54 O2 Sat by Pulse 100 100 100 Oximetry 11/10/20 11/10/20 11/10/20 07:15 07:23 07:30 Temperature 97.9 F Pulse Rate 70 71 Pulse Rate [ From Monitor] Respiratory 12 11 L Rate Blood Pressure 108/57 107/59 O2 Sat by Pulse 100 100 Oximetry 11/10/20 11/10/20 11/10/20 07:45 08:00 08:08 Temperature Pulse Rate 71 72 79 Pulse Rate [ 71 From Monitor] Respiratory 12 11 L Rate Blood Pressure 112/56 112/56 112/56 O2 Sat by Pulse 100 100 100 Oximetry 11/10/20 11/10/20 11/10/20 08:11 08:21 08:30 Temperature Pulse Rate 80 74 77 Pulse Rate [ From Monitor] Respiratory 15 12 12 Rate Blood Pressure 112/56 109/61 124/61 O2 Sat by Pulse 100 100 100 Oximetry 11/10/20 11/10/20 11/10/20 08:41 08:45 08:51 Temperature 98 F Pulse Rate 72 72 Pulse Rate [ From Monitor] Respiratory 12 11 L Rate Blood Pressure 124/61 115/59 O2 Sat by Pulse 100 100 Oximetry 11/10/20 11/10/20 11/10/20 09:00 09:05 09:15 Temperature 98.1 F Pulse Rate 71 71 71 Pulse Rate [ From Monitor] Respiratory 12 12 12 Rate Blood Pressure 111/55 111/55 108/59 O2 Sat by Pulse 100 100 100 Oximetry 11/10/20 11/10/20 11/10/20 09:31 09:45 10:00 Temperature 97.9 F Pulse Rate 75 72 72 Pulse Rate [ From Monitor] Respiratory 13 12 12 Rate Blood Pressure 115/55 107/62 112/61 O2 Sat by Pulse 100 100 100 Oximetry 11/10/20 11/10/20 11/10/20 10:15 10:30 10:35 Temperature 98 F Pulse Rate 73 71 73 Pulse Rate [ From Monitor] Respiratory 12 12 12 Rate Blood Pressure 125/65 118/61 118/61 O2 Sat by Pulse 100 100 100 Oximetry 11/10/20 11/10/20 11/10/20 10:45 10:50 11:00 Temperature 97.8 F Pulse Rate 71 70 70 Pulse Rate [ From Monitor] Respiratory 12 12 12 Rate Blood Pressure 109/58 109/58 113/59 O2 Sat by Pulse 100 100 100 Oximetry Constitutional: no acute distress, other (elderly male with mildly increased respiratory effort at rest on MVS) Eyes: non-icteric ENT: oropharynx moist, other (ETT 25 cm DALIA) Neck: supple, no lymphadenopathy, no JVD Effort: mildly labored Ascultation: Bilateral: diminished breath sounds, rhonchi Percussion: Bilateral: not dull Cardiovascular: regular rate and rhythm, murmur noted (COLE) Gastrointestinal: hypoactive bowel sounds, non-tender, other (open abdomen in abthera vacuum dressing) Integumentary: normal Extremities: no cyanosis, pink and warm, edema (RLExt), other (RLExt fasciotomy) Neurologic: pupils equal and round, unable to assess, other (Right Hemiparesis) Psychiatric: other (encephalopathic / sedated) CBC and BMP: 11/10/20 05:30 11/10/20 05:30 ABG, PT/INR, D-dimer: ABG ABG pH 7.494 (7.320-7.450) H 11/08/20 03:38 POC ABG pCO2 36.6 mmHg (32.0-48.0) 11/08/20 03:38 POC ABG pO2 111.5 mmHg (83-108) H 11/08/20 03:38 POC ABG HCO3 27.5 11/08/20 03:38 ABG O2 Saturation 98.4 (0-100) 11/08/20 03:38 PT/INR, D-dimer PT 16.2 Sec. (12.2-14.9) H 11/02/20 19:55 INR 1.30 (0.87-1.13) H 11/02/20 19:55 D-Dimer 4139.61 ng/mlDDU (0-234) H 10/23/20 18:23 Abnormal lab findings: Abnormal Labs 10/23/20 10/23/20 10/23/20 13:32 18:23 18:23 WBC RBC Hgb Hct RDW Seg Neuts % (Manual) Lymphocytes % (Manual) Seg Neutrophils # Man Lymphocytes # (Manual) Monocytes # (Manual) PT INR APTT D-Dimer 4139.61 H Heparin Anti-Xa Level ABG pH POC ABG pCO2 POC ABG pO2 ABG Hemoglobin ABG Oxyhemoglobin ABG Sodium ABG Potassium ABG Chloride ABG Glucose Carboxyhemoglobin Sodium Potassium Chloride 109.1 H Carbon Dioxide BUN Creatinine Glucose POC Glucose Lactic Acid Calcium Ionized Calcium Magnesium Lactate Dehydrogenase 334 H C-Reactive Protein 2.50 H NT-Pro-B Natriuret Pep 5806 H Total Protein Albumin TSH Arterial Blood Glucose Arterial Blood Ionized Calcium Urine WBC (Auto) Crossmatch 10/23/20 10/23/20 10/26/20 18:23 18:23 05:34 WBC RBC Hgb Hct RDW Seg Neuts % (Manual) Lymphocytes % (Manual) Seg Neutrophils # Man Lymphocytes # (Manual) Monocytes # (Manual) PT INR APTT D-Dimer Heparin Anti-Xa Level ABG pH POC ABG pCO2 POC ABG pO2 ABG Hemoglobin ABG Oxyhemoglobin ABG Sodium ABG Potassium ABG Chloride ABG Glucose Carboxyhemoglobin Sodium Potassium Chloride Carbon Dioxide BUN 30 H Creatinine Glucose 120 H POC Glucose Lactic Acid Calcium Ionized Calcium Magnesium Lactate Dehydrogenase C-Reactive Protein NT-Pro-B Natriuret Pep Total Protein Albumin TSH 7.100 H 6.540 H Arterial Blood Glucose Arterial Blood Ionized Calcium Urine WBC (Auto) Crossmatch 10/27/20 10/28/20 11/02/20 08:55 05:25 07:17 WBC 15.8 H RBC Hgb Hct RDW Seg Neuts % (Manual) Lymphocytes % (Manual) Seg Neutrophils # Man Lymphocytes # (Manual) Monocytes # (Manual) PT INR APTT D-Dimer Heparin Anti-Xa Level ABG pH POC ABG pCO2 POC ABG pO2 ABG Hemoglobin ABG Oxyhemoglobin ABG Sodium ABG Potassium ABG Chloride ABG Glucose Carboxyhemoglobin Sodium Potassium Chloride Carbon Dioxide BUN 28 H 28 H Creatinine Glucose 124 H 110 H POC Glucose Lactic Acid Calcium 8.2 L Ionized Calcium Magnesium Lactate Dehydrogenase C-Reactive Protein NT-Pro-B Natriuret Pep Total Protein Albumin TSH Arterial Blood Glucose Arterial Blood Ionized Calcium Urine WBC (Auto) Crossmatch 11/02/20 11/02/20 11/02/20 07:17 15:00 15:06 WBC RBC Hgb 15.7 H Hct 47.5 H D RDW Seg Neuts % (Manual) Lymphocytes % (Manual) Seg Neutrophils # Man Lymphocytes # (Manual) Monocytes # (Manual) PT INR APTT D-Dimer Heparin Anti-Xa Level ABG pH POC ABG pCO2 POC ABG pO2 ABG Hemoglobin ABG Oxyhemoglobin ABG Sodium ABG Potassium ABG Chloride ABG Glucose Carboxyhemoglobin Sodium 136 L Potassium Chloride Carbon Dioxide BUN 33 H Creatinine Glucose 107 H POC Glucose Lactic Acid Calcium 7.9 L Ionized Calcium Magnesium Lactate Dehydrogenase C-Reactive Protein NT-Pro-B Natriuret Pep Total Protein Albumin TSH Arterial Blood Glucose Arterial Blood Ionized Calcium Urine WBC (Auto) Crossmatch See Detail 11/02/20 11/02/20 11/02/20 19:55 21:25 22:28 WBC 21.8 H RBC Hgb Hct RDW Seg Neuts % (Manual) Lymphocytes % (Manual) Seg Neutrophils # Man Lymphocytes # (Manual) Monocytes # (Manual) PT 16.2 H INR 1.30 H APTT 106.0 H* D-Dimer Heparin Anti-Xa Level 1.63 H ABG pH POC ABG pCO2 POC ABG pO2 ABG Hemoglobin ABG Oxyhemoglobin ABG Sodium ABG Potassium ABG Chloride ABG Glucose Carboxyhemoglobin Sodium Potassium Chloride Carbon Dioxide BUN Creatinine Glucose POC Glucose Lactic Acid Calcium Ionized Calcium Magnesium Lactate Dehydrogenase C-Reactive Protein NT-Pro-B Natriuret Pep Total Protein Albumin TSH Arterial Blood Glucose Arterial Blood Ionized Calcium Urine WBC (Auto) Crossmatch 11/03/20 11/03/20 11/03/20 05:47 13:20 13:20 WBC 29.0 H RBC Hgb 10.4 L Hct 31.2 L D RDW Seg Neuts % (Manual) Lymphocytes % (Manual) Seg Neutrophils # Man Lymphocytes # (Manual) Monocytes # (Manual) PT INR APTT D-Dimer Heparin Anti-Xa Level < 0.10 L ABG pH POC ABG pCO2 POC ABG pO2 ABG Hemoglobin ABG Oxyhemoglobin ABG Sodium ABG Potassium ABG Chloride ABG Glucose Carboxyhemoglobin Sodium 134 L Potassium 5.9 H D Chloride Carbon Dioxide 17 L D BUN 47 H Creatinine 2.2 H D Glucose 188 H POC Glucose Lactic Acid Calcium 7.6 L Ionized Calcium Magnesium Lactate Dehydrogenase C-Reactive Protein NT-Pro-B Natriuret Pep Total Protein Albumin TSH Arterial Blood Glucose Arterial Blood Ionized Calcium Urine WBC (Auto) Crossmatch 11/03/20 11/03/20 11/03/20 13:20 16:11 20:01 WBC RBC Hgb Hct RDW Seg Neuts % (Manual) Lymphocytes % (Manual) Seg Neutrophils # Man Lymphocytes # (Manual) Monocytes # (Manual) PT INR APTT D-Dimer Heparin Anti-Xa Level ABG pH 7.289 L POC ABG pCO2 31.8 L POC ABG pO2 156.7 H 119.6 H ABG Hemoglobin 10.7 L 9.7 L ABG Oxyhemoglobin 98.2 H ABG Sodium 127.7 L 129.5 L ABG Potassium 5.8 H 5.9 H ABG Chloride ABG Glucose 190 H 174 H Carboxyhemoglobin 0.3 L 0.1 L Sodium Potassium Chloride Carbon Dioxide BUN Creatinine Glucose POC Glucose Lactic Acid 7.40 H* Calcium Ionized Calcium Magnesium Lactate Dehydrogenase C-Reactive Protein NT-Pro-B Natriuret Pep Total Protein Albumin TSH Arterial Blood Glucose 190 H 174 H Arterial Blood Ionized Calcium 4.3 L 4.3 L Urine WBC (Auto) Crossmatch 11/03/20 11/04/20 11/04/20 21:14 04:00 04:00 WBC 32.8 H RBC Hgb 11.7 L Hct 35.0 L RDW Seg Neuts % (Manual) 82.0 H Lymphocytes % (Manual) 10.0 L Seg Neutrophils # Man 26.9 H Lymphocytes # (Manual) Monocytes # (Manual) 2.3 H PT INR APTT D-Dimer Heparin Anti-Xa Level 0.73 H ABG pH POC ABG pCO2 POC ABG pO2 ABG Hemoglobin ABG Oxyhemoglobin ABG Sodium ABG Potassium ABG Chloride ABG Glucose Carboxyhemoglobin Sodium 133 L Potassium 5.7 H Chloride Carbon Dioxide 20 L BUN 57 H Creatinine 2.3 H Glucose 129 H POC Glucose Lactic Acid Calcium 7.2 L Ionized Calcium Magnesium Lactate Dehydrogenase C-Reactive Protein NT-Pro-B Natriuret Pep Total Protein Albumin TSH Arterial Blood Glucose Arterial Blood Ionized Calcium Urine WBC (Auto) Crossmatch 11/04/20 11/04/20 11/04/20 07:57 11:00 11:55 WBC RBC Hgb Hct RDW Seg Neuts % (Manual) Lymphocytes % (Manual) Seg Neutrophils # Man Lymphocytes # (Manual) Monocytes # (Manual) PT INR APTT D-Dimer Heparin Anti-Xa Level ABG pH POC ABG pCO2 POC ABG pO2 132.7 H ABG Hemoglobin 11.5 L ABG Oxyhemoglobin ABG Sodium 130.6 L ABG Potassium 5.3 H ABG Chloride ABG Glucose 145 H Carboxyhemoglobin 0.2 L Sodium Potassium Chloride Carbon Dioxide BUN Creatinine Glucose POC Glucose 110 H Lactic Acid Calcium Ionized Calcium Magnesium Lactate Dehydrogenase C-Reactive Protein NT-Pro-B Natriuret Pep Total Protein Albumin TSH Arterial Blood Glucose 145 H Arterial Blood Ionized Calcium 4.4 L Urine WBC (Auto) 19.0 H Crossmatch 11/04/20 11/04/20 11/04/20 13:01 13:01 17:40 WBC RBC Hgb Hct RDW Seg Neuts % (Manual) Lymphocytes % (Manual) Seg Neutrophils # Man Lymphocytes # (Manual) Monocytes # (Manual) PT INR APTT D-Dimer Heparin Anti-Xa Level 0.26 L ABG pH POC ABG pCO2 POC ABG pO2 ABG Hemoglobin ABG Oxyhemoglobin ABG Sodium ABG Potassium ABG Chloride ABG Glucose Carboxyhemoglobin Sodium Potassium Chloride Carbon Dioxide BUN Creatinine Glucose POC Glucose 135 H Lactic Acid Calcium Ionized Calcium Magnesium Lactate Dehydrogenase C-Reactive Protein 8.30 H NT-Pro-B Natriuret Pep Total Protein Albumin TSH Arterial Blood Glucose Arterial Blood Ionized Calcium Urine WBC (Auto) Crossmatch 11/04/20 11/04/20 11/05/20 19:55 23:20 00:53 WBC RBC Hgb 9.7 L 9.0 L Hct 28.3 L D 26.0 L RDW Seg Neuts % (Manual) Lymphocytes % (Manual) Seg Neutrophils # Man Lymphocytes # (Manual) Monocytes # (Manual) PT INR APTT D-Dimer Heparin Anti-Xa Level ABG pH POC ABG pCO2 POC ABG pO2 ABG Hemoglobin ABG Oxyhemoglobin ABG Sodium ABG Potassium ABG Chloride ABG Glucose Carboxyhemoglobin Sodium Potassium Chloride Carbon Dioxide BUN Creatinine Glucose POC Glucose 143 H Lactic Acid Calcium Ionized Calcium Magnesium Lactate Dehydrogenase C-Reactive Protein NT-Pro-B Natriuret Pep Total Protein Albumin TSH Arterial Blood Glucose Arterial Blood Ionized Calcium Urine WBC (Auto) Crossmatch 11/05/20 11/05/20 11/05/20 02:16 03:16 03:37 WBC 33.5 H RBC 3.01 L Hgb 8.8 L Hct 25.6 L RDW Seg Neuts % (Manual) 93.5 H Lymphocytes % (Manual) 3.5 L Seg Neutrophils # Man 31.3 H Lymphocytes # (Manual) Monocytes # (Manual) 1.0 H PT INR APTT D-Dimer Heparin Anti-Xa Level 0.99 H ABG pH POC ABG pCO2 POC ABG pO2 131.3 H ABG Hemoglobin 9.2 L ABG Oxyhemoglobin ABG Sodium 131.6 L ABG Potassium ABG Chloride 110.0 H ABG Glucose 168 H Carboxyhemoglobin 0.3 L Sodium Potassium Chloride Carbon Dioxide BUN Creatinine Glucose POC Glucose Lactic Acid Calcium Ionized Calcium Magnesium Lactate Dehydrogenase C-Reactive Protein NT-Pro-B Natriuret Pep Total Protein Albumin TSH Arterial Blood Glucose 168 H Arterial Blood Ionized Calcium 4.4 L Urine WBC (Auto) Crossmatch 11/05/20 11/05/20 11/05/20 03:37 05:19 18:18 WBC RBC Hgb Hct RDW Seg Neuts % (Manual) Lymphocytes % (Manual) Seg Neutrophils # Man Lymphocytes # (Manual) Monocytes # (Manual) PT INR APTT D-Dimer Heparin Anti-Xa Level ABG pH POC ABG pCO2 POC ABG pO2 ABG Hemoglobin ABG Oxyhemoglobin ABG Sodium ABG Potassium ABG Chloride ABG Glucose Carboxyhemoglobin Sodium Potassium Chloride 109.5 H Carbon Dioxide BUN 55 H Creatinine 2.1 H Glucose 157 H POC Glucose 142 H 124 H Lactic Acid Calcium 7.0 L Ionized Calcium Magnesium Lactate Dehydrogenase C-Reactive Protein NT-Pro-B Natriuret Pep Total Protein Albumin TSH Arterial Blood Glucose Arterial Blood Ionized Calcium Urine WBC (Auto) Crossmatch 11/05/20 11/05/20 11/05/20 19:00 21:20 23:30 WBC RBC Hgb Hct RDW Seg Neuts % (Manual) Lymphocytes % (Manual) Seg Neutrophils # Man Lymphocytes # (Manual) Monocytes # (Manual) PT INR APTT 63.8 H* D-Dimer Heparin Anti-Xa Level ABG pH POC ABG pCO2 POC ABG pO2 ABG Hemoglobin ABG Oxyhemoglobin ABG Sodium ABG Potassium ABG Chloride ABG Glucose Carboxyhemoglobin Sodium Potassium Chloride Carbon Dioxide BUN Creatinine Glucose POC Glucose 156 H Lactic Acid Calcium Ionized Calcium Magnesium Lactate Dehydrogenase C-Reactive Protein NT-Pro-B Natriuret Pep Total Protein 4.3 L Albumin 2.1 L TSH Arterial Blood Glucose Arterial Blood Ionized Calcium Urine WBC (Auto) Crossmatch 11/06/20 11/06/20 11/06/20 02:54 04:00 04:00 WBC 33.0 H RBC 2.68 L Hgb 7.7 L Hct 23.3 L RDW Seg Neuts % (Manual) 95.0 H Lymphocytes % (Manual) 2.0 L Seg Neutrophils # Man 31.4 H Lymphocytes # (Manual) 0.7 L Monocytes # (Manual) 1.0 H PT INR APTT D-Dimer Heparin Anti-Xa Level ABG pH POC ABG pCO2 POC ABG pO2 116.5 H ABG Hemoglobin 9.7 L ABG Oxyhemoglobin ABG Sodium 134.5 L ABG Potassium 5.0 H ABG Chloride 109.0 H ABG Glucose 165 H Carboxyhemoglobin 0.3 L Sodium Potassium 5.1 H Chloride 108.6 H Carbon Dioxide BUN 62 H Creatinine 2.2 H Glucose 155 H POC Glucose Lactic Acid Calcium 7.3 L Ionized Calcium Magnesium Lactate Dehydrogenase C-Reactive Protein NT-Pro-B Natriuret Pep Total Protein Albumin TSH Arterial Blood Glucose 165 H Arterial Blood Ionized Calcium 4.5 L Urine WBC (Auto) Crossmatch 11/06/20 11/06/20 11/06/20 05:17 06:00 17:26 WBC RBC Hgb Hct RDW Seg Neuts % (Manual) Lymphocytes % (Manual) Seg Neutrophils # Man Lymphocytes # (Manual) Monocytes # (Manual) PT INR APTT D-Dimer Heparin Anti-Xa Level ABG pH POC ABG pCO2 POC ABG pO2 ABG Hemoglobin ABG Oxyhemoglobin ABG Sodium ABG Potassium ABG Chloride ABG Glucose Carboxyhemoglobin Sodium Potassium Chloride Carbon Dioxide BUN Creatinine Glucose POC Glucose 147 H 132 H Lactic Acid Calcium Ionized Calcium 4.7 L Magnesium Lactate Dehydrogenase C-Reactive Protein NT-Pro-B Natriuret Pep Total Protein Albumin TSH Arterial Blood Glucose Arterial Blood Ionized Calcium Urine WBC (Auto) Crossmatch 11/07/20 11/07/20 11/07/20 04:00 04:00 04:00 WBC 28.9 H RBC 2.44 L Hgb 7.1 L Hct 21.2 L RDW 15.4 H Seg Neuts % (Manual) 95.0 H Lymphocytes % (Manual) 3.0 L Seg Neutrophils # Man 27.5 H Lymphocytes # (Manual) 0.9 L Monocytes # (Manual) PT INR APTT D-Dimer Heparin Anti-Xa Level ABG pH POC ABG pCO2 POC ABG pO2 130.1 H ABG Hemoglobin 7.5 L ABG Oxyhemoglobin ABG Sodium ABG Potassium 5.0 H ABG Chloride 110.0 H ABG Glucose 152 H Carboxyhemoglobin Sodium Potassium 5.3 H Chloride 108.2 H Carbon Dioxide BUN 77 H Creatinine 2.4 H Glucose 144 H POC Glucose Lactic Acid Calcium 7.5 L Ionized Calcium Magnesium Lactate Dehydrogenase C-Reactive Protein NT-Pro-B Natriuret Pep Total Protein Albumin TSH Arterial Blood Glucose 152 H Arterial Blood Ionized Calcium Urine WBC (Auto) Crossmatch 11/07/20 11/07/20 11/08/20 12:06 17:29 03:38 WBC RBC Hgb Hct RDW Seg Neuts % (Manual) Lymphocytes % (Manual) Seg Neutrophils # Man Lymphocytes # (Manual) Monocytes # (Manual) PT INR APTT D-Dimer Heparin Anti-Xa Level ABG pH 7.494 H POC ABG pCO2 POC ABG pO2 111.5 H ABG Hemoglobin 6.7 L ABG Oxyhemoglobin ABG Sodium ABG Potassium 4.9 H ABG Chloride 112.0 H ABG Glucose 153 H Carboxyhemoglobin Sodium Potassium Chloride Carbon Dioxide BUN Creatinine Glucose POC Glucose 144 H 117 H Lactic Acid Calcium Ionized Calcium Magnesium Lactate Dehydrogenase C-Reactive Protein NT-Pro-B Natriuret Pep Total Protein Albumin TSH Arterial Blood Glucose 153 H Arterial Blood Ionized Calcium 4.5 L Urine WBC (Auto) Crossmatch 11/08/20 11/08/20 11/08/20 04:39 04:39 11:13 WBC 23.1 H RBC 2.37 L Hgb 6.9 L Hct 20.8 L RDW 15.3 H Seg Neuts % (Manual) 95.5 H Lymphocytes % (Manual) 2.5 L Seg Neutrophils # Man 22.1 H Lymphocytes # (Manual) 0.6 L Monocytes # (Manual) PT INR APTT D-Dimer Heparin Anti-Xa Level ABG pH POC ABG pCO2 POC ABG pO2 ABG Hemoglobin ABG Oxyhemoglobin ABG Sodium ABG Potassium ABG Chloride ABG Glucose Carboxyhemoglobin Sodium Potassium 5.1 H Chloride 111.3 H Carbon Dioxide BUN 86 H Creatinine 2.5 H Glucose 142 H POC Glucose 125 H Lactic Acid Calcium 7.6 L Ionized Calcium Magnesium Lactate Dehydrogenase C-Reactive Protein NT-Pro-B Natriuret Pep Total Protein Albumin TSH Arterial Blood Glucose Arterial Blood Ionized Calcium Urine WBC (Auto) Crossmatch 11/08/20 11/08/20 11/08/20 11:15 16:30 19:11 WBC RBC Hgb 8.0 L Hct 23.6 L RDW Seg Neuts % (Manual) Lymphocytes % (Manual) Seg Neutrophils # Man Lymphocytes # (Manual) Monocytes # (Manual) PT INR APTT D-Dimer Heparin Anti-Xa Level ABG pH POC ABG pCO2 POC ABG pO2 ABG Hemoglobin ABG Oxyhemoglobin ABG Sodium ABG Potassium ABG Chloride ABG Glucose Carboxyhemoglobin Sodium Potassium Chloride Carbon Dioxide BUN Creatinine Glucose POC Glucose Lactic Acid Calcium Ionized Calcium Magnesium Lactate Dehydrogenase C-Reactive Protein NT-Pro-B Natriuret Pep Total Protein 3.8 L Albumin 2.2 L TSH Arterial Blood Glucose Arterial Blood Ionized Calcium Urine WBC (Auto) Crossmatch See Detail 11/08/20 11/09/20 11/09/20 22:20 03:21 03:21 WBC 19.0 H RBC 2.51 L Hgb 7.5 L Hct 22.2 L RDW 15.3 H Seg Neuts % (Manual) 89.0 H Lymphocytes % (Manual) 6.0 L Seg Neutrophils # Man 16.9 H Lymphocytes # (Manual) 1.1 L Monocytes # (Manual) 1.0 H PT INR APTT D-Dimer Heparin Anti-Xa Level ABG pH POC ABG pCO2 POC ABG pO2 ABG Hemoglobin ABG Oxyhemoglobin ABG Sodium ABG Potassium ABG Chloride ABG Glucose Carboxyhemoglobin Sodium Potassium Chloride 109.1 H Carbon Dioxide BUN 86 H Creatinine 2.5 H Glucose 140 H POC Glucose 107 H Lactic Acid Calcium 6.9 L Ionized Calcium Magnesium Lactate Dehydrogenase C-Reactive Protein NT-Pro-B Natriuret Pep Total Protein Albumin TSH Arterial Blood Glucose Arterial Blood Ionized Calcium Urine WBC (Auto) Crossmatch 11/09/20 11/09/20 11/09/20 03:21 03:43 09:22 WBC RBC Hgb Hct RDW Seg Neuts % (Manual) Lymphocytes % (Manual) Seg Neutrophils # Man Lymphocytes # (Manual) Monocytes # (Manual) PT INR APTT 50.8 H D-Dimer Heparin Anti-Xa Level ABG pH POC ABG pCO2 POC ABG pO2 ABG Hemoglobin ABG Oxyhemoglobin ABG Sodium ABG Potassium ABG Chloride ABG Glucose Carboxyhemoglobin Sodium Potassium Chloride Carbon Dioxide BUN Creatinine Glucose POC Glucose 117 H 111 H Lactic Acid Calcium Ionized Calcium Magnesium Lactate Dehydrogenase C-Reactive Protein NT-Pro-B Natriuret Pep Total Protein Albumin TSH Arterial Blood Glucose Arterial Blood Ionized Calcium Urine WBC (Auto) Crossmatch 11/09/20 11/09/20 11/10/20 17:04 22:08 05:30 WBC RBC Hgb 6.6 L Hct 19.9 L* RDW Seg Neuts % (Manual) Lymphocytes % (Manual) Seg Neutrophils # Man Lymphocytes # (Manual) Monocytes # (Manual) PT INR APTT D-Dimer Heparin Anti-Xa Level ABG pH POC ABG pCO2 POC ABG pO2 ABG Hemoglobin ABG Oxyhemoglobin ABG Sodium ABG Potassium ABG Chloride ABG Glucose Carboxyhemoglobin Sodium Potassium Chloride Carbon Dioxide BUN Creatinine Glucose POC Glucose 106 H 112 H Lactic Acid Calcium Ionized Calcium Magnesium Lactate Dehydrogenase C-Reactive Protein NT-Pro-B Natriuret Pep Total Protein Albumin TSH Arterial Blood Glucose Arterial Blood Ionized Calcium Urine WBC (Auto) Crossmatch 11/10/20 05:30 WBC RBC Hgb Hct RDW Seg Neuts % (Manual) Lymphocytes % (Manual) Seg Neutrophils # Man Lymphocytes # (Manual) Monocytes # (Manual) PT INR APTT D-Dimer Heparin Anti-Xa Level ABG pH POC ABG pCO2 POC ABG pO2 ABG Hemoglobin ABG Oxyhemoglobin ABG Sodium ABG Potassium ABG Chloride ABG Glucose Carboxyhemoglobin Sodium Potassium Chloride 111.3 H Carbon Dioxide BUN 74 H Creatinine 2.3 H Glucose 119 H POC Glucose Lactic Acid Calcium 7.1 L Ionized Calcium Magnesium 4.40 H Lactate Dehydrogenase C-Reactive Protein NT-Pro-B Natriuret Pep Total Protein Albumin TSH Arterial Blood Glucose Arterial Blood Ionized Calcium Urine WBC (Auto) Crossmatch Chest x-ray: image reviewed (resolved LLL atelectasis) Allied health notes reviewed: nursing
--- NOTE | 2020-11-10 12:14 | Progress Note ---
Assessment and Plan 1. Acute kidney injury: Vasomotor STACEY in the setting of shock. Renal US negative for hydro. Monitor renal function. Renal prognosis is guarded. Creatinine level about the same as yesterday. Avoid nephrotoxic agents. Meds dosage based on GFR. 2. FEN: Hyperkalemia, improved, monitor. Hyperchloremia, monitor. Monitor lytes and volume status. 3. Severe sepsis with shock: Etiology unclear, rule out bacteremia, UTI, pneumonia and other nosocomial infec tions. On Levophed. Followed by ID. 4. 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 Seen by Neurology. 5. Acute hypoxemic respiratory failure: Intubated, on vent. 6. Acute on chronic systolic heart failure: EF 40-45%. Followed by [facility]. 7. 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 8. Acute R LE ischemia: S/p thrombectomy. 9. Mild pneumatosis of ascending colon: Bowel ischemia. S/p Ex-lap and small bowel resection 11/08. Followed by General surgery. 10. Normochromic anemia: Monitor. Subjective: Patient was not examined today. However the examination findings from other providers noted. The current and previous medical records are reviewed in detail as are laboratory and imaging data reviewed when appropriate. Medications being given are also reviewed. In addition the case has been discussed with the attending hospitalist and the nurse when needed. New renal recommendations as above. Subjective Date of service: 11/10/20 Principal diagnosis: Ac hypoxemic resp failure; CVA; Acute limb ischemia; Acute encephalopathy Objective - Vital Signs Vital signs: Vital Signs - 12hr 11/10/20 11/10/20 11/10/20 00:15 00:30 00:46 Temperature Pulse Rate 72 71 71 Pulse Rate [ From Monitor] Respiratory 12 12 12 Rate Blood Pressure 97/50 97/50 99/54 O2 Sat by Pulse 100 100 100 Oximetry 11/10/20 11/10/20 11/10/20 01:00 01:15 01:30 Temperature Pulse Rate 75 73 73 Pulse Rate [ From Monitor] Respiratory 16 19 12 Rate Blood Pressure 105/57 106/55 106/55 O2 Sat by Pulse 100 100 100 Oximetry 11/10/20 11/10/20 11/10/20 01:45 02:00 02:15 Temperature Pulse Rate 73 74 75 Pulse Rate [ From Monitor] Respiratory 14 12 11 L Rate Blood Pressure 113/57 103/58 103/56 O2 Sat by Pulse 100 100 100 Oximetry 11/10/20 11/10/20 11/10/20 02:30 02:45 03:00 Temperature Pulse Rate 74 76 74 Pulse Rate [ From Monitor] Respiratory 12 12 13 Rate Blood Pressure 102/55 102/55 116/63 O2 Sat by Pulse 100 100 100 Oximetry 11/10/20 11/10/20 11/10/20 03:15 03:30 03:45 Temperature Pulse Rate 74 76 76 Pulse Rate [ From Monitor] Respiratory 12 17 13 Rate Blood Pressure 116/62 106/60 106/57 O2 Sat by Pulse 100 100 100 Oximetry 11/10/20 11/10/20 11/10/20 04:00 04:05 04:15 Temperature 98.8 F Pulse Rate 76 81 74 Pulse Rate [ 76 From Monitor] Respiratory 14 12 Rate Blood Pressure 101/60 101/60 100/55 O2 Sat by Pulse 100 100 100 Oximetry 11/10/20 11/10/20 11/10/20 04:30 04:45 05:00 Temperature Pulse Rate 74 84 87 Pulse Rate [ From Monitor] Respiratory 12 12 11 L Rate Blood Pressure 98/52 112/61 110/56 O2 Sat by Pulse 100 100 100 Oximetry 11/10/20 11/10/20 11/10/20 05:15 05:30 05:45 Temperature Pulse Rate 72 70 69 Pulse Rate [ From Monitor] Respiratory 12 12 12 Rate Blood Pressure 93/51 91/53 96/52 O2 Sat by Pulse 100 100 100 Oximetry 11/10/20 11/10/20 11/10/20 06:00 06:15 06:30 Temperature Pulse Rate 70 71 71 Pulse Rate [ From Monitor] Respiratory 12 13 11 L Rate Blood Pressure 93/50 95/52 105/58 O2 Sat by Pulse 100 100 100 Oximetry 11/10/20 11/10/20 11/10/20 06:45 07:00 07:15 Temperature Pulse Rate 71 71 70 Pulse Rate [ From Monitor] Respiratory 11 L 12 12 Rate Blood Pressure 113/55 112/54 108/57 O2 Sat by Pulse 100 100 100 Oximetry 11/10/20 11/10/20 11/10/20 07:23 07:30 07:45 Temperature 97.9 F Pulse Rate 71 71 Pulse Rate [ From Monitor] Respiratory 11 L 12 Rate Blood Pressure 107/59 112/56 O2 Sat by Pulse 100 100 Oximetry 11/10/20 11/10/20 11/10/20 08:00 08:08 08:11 Temperature Pulse Rate 72 79 80 Pulse Rate [ 71 From Monitor] Respiratory 11 L 15 Rate Blood Pressure 112/56 112/56 112/56 O2 Sat by Pulse 100 100 100 Oximetry 11/10/20 11/10/20 11/10/20 08:21 08:30 08:41 Temperature Pulse Rate 74 77 72 Pulse Rate [ From Monitor] Respiratory 12 12 12 Rate Blood Pressure 109/61 124/61 124/61 O2 Sat by Pulse 100 100 100 Oximetry 11/10/20 11/10/20 11/10/20 08:45 08:51 09:00 Temperature 98 F Pulse Rate 72 71 Pulse Rate [ From Monitor] Respiratory 11 L 12 Rate Blood Pressure 115/59 111/55 O2 Sat by Pulse 100 100 Oximetry 11/10/20 11/10/20 11/10/20 09:05 09:15 09:31 Temperature 98.1 F Pulse Rate 71 71 75 Pulse Rate [ From Monitor] Respiratory 12 12 13 Rate Blood Pressure 111/55 108/59 115/55 O2 Sat by Pulse 100 100 100 Oximetry 11/10/20 11/10/20 11/10/20 09:45 10:00 10:15 Temperature 97.9 F Pulse Rate 72 72 73 Pulse Rate [ From Monitor] Respiratory 12 12 12 Rate Blood Pressure 107/62 112/61 125/65 O2 Sat by Pulse 100 100 100 Oximetry 11/10/20 11/10/20 11/10/20 10:30 10:35 10:45 Temperature 98 F Pulse Rate 71 73 71 Pulse Rate [ From Monitor] Respiratory 12 12 12 Rate Blood Pressure 118/61 118/61 109/58 O2 Sat by Pulse 100 100 100 Oximetry 11/10/20 11/10/20 11/10/20 10:50 11:00 11:05 Temperature 97.8 F 98 F Pulse Rate 70 70 70 Pulse Rate [ From Monitor] Respiratory 12 12 12 Rate Blood Pressure 109/58 113/59 122/64 O2 Sat by Pulse 100 100 100 Oximetry 11/10/20 11/10/20 11:50 11:52 Temperature 98.4 F Pulse Rate 70 69 Pulse Rate [ From Monitor] Respiratory 12 Rate Blood Pressure 124/66 124/66 O2 Sat by Pulse 100 100 Oximetry - Lab 11/10/20 23:17 11/10/20 05:30 Most recent lab results ABG pH 7.494 (7.320-7.450) H 11/08/20 03:38 ABG O2 Saturation 98.4 (0-100) 11/08/20 03:38 Calcium 7.1 mg/dL (8.4-10.2) L 11/10/20 05:30 Phosphorus 2.90 mg/dL (2.5-4.5) 11/10/20 05:30 Magnesium 4.40 mg/dL (1.7-2.3) H 11/10/20 05:30 Urine Creatinine < 4.2 mg/dL (0.1-20.0) 11/04/20 12:50 Urine Sodium 10 mmol/L 11/04/20 12:50 Medications & Allergies - Medications Allergies/Adverse Reactions: Allergies No Known Allergies Allergy (Unverified 10/23/20 12:44) Home Medications: Home Medications Medication Instructions Recorded Confirmed Last Taken Type Levothyroxine Sodium 150 mcg PO DAILY 10/31/20 10/31/20 Unknown History [Levothyroxine] carvediloL [Coreg] 6.25 mg PO BID 10/31/20 10/31/20 Unknown History lisinopriL [Lisinopril] 10 mg PO DAILY 10/31/20 10/31/20 Unknown History Active Medications: Generic Name Dose Route Start Last Admin Trade Name Freq PRN Reason Stop Dose Admin Bisacodyl 10 mg 11/08/20 22:00 11/10/20 09:00 Bisacodyl 10 Mg Rect Supp [place] 10 mg BID ALEX Administration Dextrose 50 ml 11/08/20 08:04 Dextrose 50% In Water (25gm) 50 Ml Syringe IV Q30MIN PRN Hypoglycemia Protocol Fentanyl 50 mcg 11/03/20 16:46 Fentanyl 100 Mcg/2 Ml Inj IV Q10MIN PRN ANALGESIA Hydrophilic Ointment 1 applic 11/03/20 16:46 Lip Therapy Vaseline TP Q2HR PRN Dry Lips Fentanyl Citrate 2,000 mcg in 100 mls @ 4.86 mls/hr 11/03/20 17:24 11/10/20 05:52 Fentanyl Drip Premix IV 3 mcg/kg/hr TITR ALEX 14.58 mls/hr Administration Protocol 1 MCG/KG/HR NORepinephrine/NS 8 MG-250 ML 8 mg in 250 mls @ 3.75 mls/hr 11/03/20 18:00 0 11/10/20 11:55 Norepinephrine/Ns 8 Mg-250 Ml (Double Conc) IV 6 mcg/min TITRATE ALEX 11.25 mls/hr Titration Protocol 2 MCG/MIN Cefepime HCl 2 gm in 100 mls @ 200 mls/hr 11/08/20 22:00 11/09/20 22:55 Cefepime/Ns 2 Gm/100 Ml IV Infused Q24H ALEX Infusion Protocol Dextrose/Sodium Chloride 1,000 mls @ 100 mls/hr 11/08/20 17:00 11/10/20 01:29 D5/0.45ns IV 100 mls/hr DIRECT ALEX Administration Propofol 1,000 mg in 100 mls @ 3.126 mls/hr 11/08/20 17:00 11/10/20 04:00 Diprivan 10 Mg/Ml IV 10 mcg/kg/min TITR ALEX 6.252 mls/hr Titration Protocol 5 MCG/KG/MIN Metronidazole 500 mg in 100 mls @ 100 mls/hr 11/08/20 17:00 11/10/20 09:00 Flagyl 500 Mg/100 Ml IV 100 mls/hr Q8H ALEX Administration Protocol Heparin Sodium/Sodium Chloride 25,000 unit in 500 mls @ 30 mls/hr 11/09/20 13:00 11/10/20 05:44 Heparin/ 0.45% Nacl-25,000 Unit/500 Ml IV 0 units/hr TITR ALEX 0 mls/hr Titration Protocol 1,500 UNITS/HR Sodium Chloride 500 mls @ 0 mls/hr 11/10/20 07:56 Nacl 0.9% 500 Ml IV 11/10/20 23:59 ONCE NR As Directed Sodium Chloride 500 mls @ 0 mls/hr 11/10/20 09:30 Nacl 0.9% 500 Ml IV 11/10/20 21:00 ONCE ALEX As Directed Amino Acids/Electrolytes/Dextrose 1,800 mls @ 75 mls/hr 11/10/20 20:00 Tpn Adult IV 11/11/20 19:59 DAILY@1999 ALEX Protocol Insulin Human Regular 0 units 11/08/20 09:00 11/10/20 10:37 Insulin Regular, Human 100 Units/1 Ml SUB-Q Not Given Q6H [facility] Protocol Levothyroxine Sodium 75 mcg 11/09/20 06:00 11/10/20 06:06 Levothyroxine 100 Mcg Inj IV 75 mcg DAILY@0600 ALEX Administration Multi-Ingred Cream/Lotion/Oil/Oint 1 applic 11/03/20 16:46 Mineral Oil/Petrolatum, White Ophth Oint 3.5 Gm OU Q4HR PRN Dry Eye(s) Ondansetron HCl 4 mg 10/23/20 20:00 11/07/20 23:09 Ondansetron 4 Mg/2 Ml Inj IV 4 mg Q8H PRN Administration Nausea And Vomiting Pantoprazole Sodium 40 mg 11/07/20 22:00 11/10/20 09:00 Pantoprazole 40 Mg Inj IV 40 mg BID ALEX Administration Sodium Chloride 10 ml 10/23/20 20:00 11/08/20 21:24 Sodium Chloride 0.9% 10 Ml Flush Syringe IV 10 ml PRN PRN Administration LINE FLUSH
--- NOTE | 2020-11-10 12:57 | Anesthesia Day of Surgery ---
Anesthesia Day of Surgery - Day of Surgery Patient Examined: Yes Patient H&P Reviewed: Yes Patient is NPO: Yes
[2020-11-10] MEDS ORDERED: SODIUM CHLORIDE 0.9% IRR 1,500 ML BOTTLE IR ONE ×2 (13:59)
[2020-11-10] MEDS ORDERED: PHENYLEPHRINE/NS 1,000 MCG/10 ML SYRINGE (OR USE) IV ONE (14:00)
[2020-11-10] MEDS ORDERED: ROCURONIUM 50 MG/5 ML INJ IV ONE (14:00)
[2020-11-10] MEDS ORDERED: SODIUM CHLORIDE 0.9% 1000 ML 1,000 ML ONE (14:46)
--- NOTE | 2020-11-10 15:18 | Post Operative Note ---
Pre-op diagnosis: open abdomen, pneumatosis intestinalis, mesenteric ischemia Post-op diagnosis: same Findings: All viable small and large bowel Well perfused anastomosis by ICG fluorescence imaging IVF: 400cc Procedure: reexploration of abdomen, appendectomy, small bowel anastamosis Anesthesia: DARÍO Surgeon: CASS ACEVEDO [employer] Recruiter: REGGIE VEGA Estimated blood loss: minimal Pathology: list (appendix, small bowel anastomotic staple line) Specimen disposition: to lab Condition: stable Disposition: ICU
--- NOTE | 2020-11-10 15:48 | Progress Note ---
Assessment and Plan Cultures: Sputum culture 11/03/2020 upper respiratory mechelle Urine culture 11/04/2020 negative Blood culture 11/04/2020 no growth today Tracheal aspirate 11/04/2020 no growth today Assessment: 70-year-old male with history of hypertension, hypothyroidism, admitted on 10/23/2020 secondary to 2-day history of acute altered mental status with confusion and diminished cognition; noted to have a left MCA CVA and right leg acute thrombosis, now with worsening leukocytosis and on pressors: #Severe sepsis with septic shock: Not present on admission. Remains pressors but improving, leukocytosis is high 33K-->28.9K; etiology unclear ?UTI. Likely secondary to acute thrombus of the right lower extremity complicated with compartment syndrome +/- UTI. Chest x-ray without any obvious pneumonia. #UTI urinalysis with mild pyuria. #Acute CVA: MRI with acute infarction of the left MCA, repeat MRI with evolving changes. Neurology on board. #Acute right leg thromboses: Complicated with compartment syndrome s/p open thrombectomy of the right lower extremity and right lower extremity compartment syndrome fasciotomy on 11/02/2020. #STACEY: creat up. Renally adjust antibiotics. #Acute respiratory failure: Intubated overnight. Chest x-ray with pulmonary edema. Elevated BNP. CT chest shows small pericardial effusion, small bilateral pleural effusion, bilateral interstitial disease. SARS-CoV-2 PCR negative. #Cardiomyopathy: EF 35 to 40%. #Left atrial appendage thrombus: Patient was on heparin drip, currently on hold due to surgical wound bleeding #Anemia Recommendations: -Follow-up blood culture, urinalysis, respiratory cultures -No need to treat Neisha in the sputum -Continue cefepime IV renally adjusted D8, continue metronidazole. Plan 4 more days postop. -Remove Winkler catheter when possible Will follow. Suzan Campbell MD [facility] ([facility] O: [phone] F: [phone] Subjective Date of service: 11/10/20 Principal diagnosis: Ac hypoxemic resp failure; CVA; Acute limb ischemia; Acute encephalopathy Interval history: Afebrile, no acute change. Was taken to the OR today for abdominal reexplorati on and small bowel anastomosis. No evidence of ischemia seen. Objective - Exam Narrative Exam: General appearance: Sedated, intubated, currently alert Eyes: anicteric sclerae, moist conjunctivae; no lid-lag HENT: Normocephalic, Atraumatic; normal external ears, nares open, endotracheal tube and NG tube in place Neck: supple, tracheal midline, no JVD Lungs: Coarse breath sound bilaterally CV: RRR no murmur Abdomen: Firm, distended Extremities: Marked right leg edema with fasciotomy wounds bleeding Skin: Right groin surgical wound with clots Psych: Sedated Neuro: Sedated, nares open Winkler in place - Constitutional Vitals: Vital Signs Temp Pulse Resp BP Pulse Ox 98.5 F 68 12 112/76 100 11/10/20 12:50 11/10/20 12:50 11/10/20 12:50 11/10/20 12:50 11/10/20 12:50 Temperature -Last 24 Hours Temperature 98.5 F Temperature 97.9 F Temperature 98.4 F Temperature 98 F Temperature 97.8 F Temperature 98 F Temperature 97.9 F Temperature 98.1 F Temperature 98 F Temperature 97.9 F Temperature 98.8 F Temperature 98.8 F Temperature 98.3 F Temperature 98.8 F - Labs CBC & Chem 7: 11/10/20 05:30 11/10/20 05:30 Labs: Abnormal lab results 11/06/20 11/08/20 11/09/20 Range/Units 06:00 11:15 17:04 Hgb (11.8-15.2) gm/dl Hct (35.5-45.6) % Chloride (98-107) mmol/L BUN (9-20) mg/dL Creatinine (0.8-1.3) mg/dL Glucose (75-100) mg/dL POC Glucose 106 H (70-105) mg/dL Calcium (8.4-10.2) mg/dL Ionized Calcium 4.7 L (4.8-5.6) mg/dL Magnesium (1.7-2.3) mg/dL Crossmatch See Detail 11/09/20 11/10/20 11/10/20 Range/Units 22:08 05:30 05:30 Hgb 6.6 L (11.8-15.2) gm/dl Hct 19.9 L* (35.5-45.6) % Chloride 111.3 H (98-107) mmol/L BUN 74 H (9-20) mg/dL Creatinine 2.3 H (0.8-1.3) mg/dL Glucose 119 H (75-100) mg/dL POC Glucose 112 H (70-105) mg/dL Calcium 7.1 L (8.4-10.2) mg/dL Ionized Calcium (4.8-5.6) mg/dL Magnesium 4.40 H (1.7-2.3) mg/dL Crossmatch
--- NOTE | 2020-11-10 16:08 | Event Note ---
Patient was taken to the OR for reexploration of abdomen, appendectomy, small bowel anastomosis and surgeon found all viable small and large bowel with well- perfused anastomosis by ICG fluorescence imaging. EARNESTINE drain was placed. I called the patient son today to update him at 1605 and call was not answered. I left a voicemail requesting call back at his earliest convenience.
[2020-11-10 18:04] LABS: Hematocrit 28.2 % (35.5-45.6); Hemoglobin 9.5 gm/dl (11.8-15.2)
--- NOTE | 2020-11-10 19:16 | Post Anesthesia Evaluation ---
- Post Anesthesia Evaluation Patient Participated: No Airway Patent: Yes Stable Respiratory Function: Yes Nausea/Vomiting: No Temp > 96.8F: Yes Pain Manageable: Yes Adequeate Hydration: Yes Anesthesia Complications: No Block Receding Appropriately: Not Applicable Patient on Ventilator: Yes
[2020-11-10] MEDS ORDERED: TOTAL PARENTERAL NUTRITION 1,800 ML IV SCH (20:00)
[2020-11-10] MEDS: CEFEPIME/NS 2 GM/100 ML 2 GM/100 ML BAG IV SCH (21:17)
[2020-11-10 22:07] LABS: Cardiolipin Ab IgA <11 APL (<=11); Cardiolipin Ab IgG <14 GPL (<=14); Cardiolipin Ab IgM <12 MPL (<=12)
[2020-11-10 23:52] LABS: Hematocrit 27.5 % (35.5-45.6); Hemoglobin 9.1 gm/dl (11.8-15.2)
[2020-11-11] MEDS: HEPARIN/ 0.45% NACL DRIP 25,000 UNIT/500 ML BAG IV SCH ×2 (00:19→18:19)
[2020-11-11] MEDS: metroNIDAZOLE/NS 500 MG/100 ML 500 MG/100 ML BAG IV SCH ×2 (01:30→12:32)
[2020-11-11] MEDS: fentaNYL DRIP Premix 2,000 MCG/100 ML BAG IV SCH (03:49)
[2020-11-11] MEDS: INSULIN REGULAR, HUMAN 100 UNITS/1 ML SUB-Q SCH ×3 (05:22→21:12)
[2020-11-11] MEDS: LEVOTHYROXINE 100 MCG INJ IV SCH (05:33)
[2020-11-11 05:53] LABS: Hemoglobin 9.5 gm/dl (11.8-15.2); Mean Corpuscular HGB Conc 33 % (32-34); Mean Corpuscular Volume 91 fl (84-94); Platelet Count 168 K/mm3 (140-440); Red Blood Count 3.17 M/mm3 (3.65-5.03); Red Cell Distribution Width 16.2 % (13.2-15.2)
[2020-11-11 06:45] LABS: Albumin 2.2 g/dL (3.8-4.8); Gamma Globulin 0.4 g/dL (0.8-1.7)
--- NOTE | 2020-11-11 09:21 | Progress Note ---
Assessment and Plan 1. Acute kidney injury: Vasomotor STACEY in the setting of shock. Renal US negative for hydro. Monitor renal function. Renal prognosis is guarded. Creatinine level improving. Avoid nephrotoxic agents. Meds dosage based on GFR. 2. FEN: Hyperkalemia, improved, monitor. Hyperchloremia, monitor. Monitor lytes and volume status. 3. Severe sepsis with shock: Etiology unclear, rule out bacteremia, UTI, pneumonia and other nosocomial infections. On Levophed. Followed by ID. 4. 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 Seen by Neurology. 5. Acute hypoxemic respiratory failure: Intubated, on vent. 6. Acute on chronic systolic heart failure: EF 40-45%. Followed by Cards. 7. 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 8. Acute R LE ischemia: S/p thrombectomy. 9. Mild pneumatosis of ascending colon: Bowel ischemia. S/p Ex-lap and small bowel resection 11/08. S/p reexploration of abdomen, appendectomy, small bowel anastamosis 11/10. Followed by General surgery. 10. Normochromic anemia: Monitor. Subjective: Patient was not examined today. However the examination findings from other providers noted. The current and previous medical records are reviewed in detail as are laboratory and imaging data reviewed when appropriate. Medications being given are also reviewed. In addition the case has been discussed with the attending hospitalist and the nurse when needed. New renal recommendations as above. Subjective Date of service: 11/11/20 Principal diagnosis: Ac hypoxemic resp failure; CVA; Acute limb ischemia; Acute encephalopathy Objective - Vital Signs Vital signs: Vital Signs - 12hr 11/10/20 11/10/20 11/10/20 21:30 21:45 22:00 Temperature Pulse Rate 63 68 69 Pulse Rate [ From Monitor] Respiratory 12 12 12 Rate Blood Pressure 110/65 101/64 109/65 O2 Sat by Pulse 99 99 96 Oximetry 11/10/20 11/10/20 11/10/20 22:15 22:30 22:45 Temperature Pulse Rate 68 66 68 Pulse Rate [ From Monitor] Respiratory 12 12 12 Rate Blood Pressure 104/63 99/62 101/64 O2 Sat by Pulse 98 97 98 Oximetry 11/10/20 11/10/20 11/10/20 23:00 23:15 23:21 Temperature Pulse Rate 69 73 69 Pulse Rate [ From Monitor] Respiratory 12 12 12 Rate Blood Pressure 94/61 87/60 87/60 O2 Sat by Pulse 99 99 100 Oximetry 11/10/20 11/10/20 11/11/20 23:30 23:38 00:00 Temperature 98.5 F Pulse Rate 68 68 Pulse Rate [ 61 From Monitor] Respiratory 12 12 Rate Blood Pressure 86/56 98/60 O2 Sat by Pulse 99 100 Oximetry 11/11/20 11/11/20 11/11/20 00:08 00:31 01:00 Temperature Pulse Rate 65 76 71 Pulse Rate [ From Monitor] Respiratory 13 12 Rate Blood Pressure 98/60 124/69 112/63 O2 Sat by Pulse 100 100 98 Oximetry 11/11/20 11/11/20 11/11/20 01:30 02:00 02:30 Temperature Pulse Rate 71 81 69 Pulse Rate [ From Monitor] Respiratory 13 16 16 Rate Blood Pressure 107/61 124/73 125/79 O2 Sat by Pulse 98 98 Oximetry 11/11/20 11/11/20 11/11/20 03:00 03:31 04:00 Temperature 98.8 F Pulse Rate 74 69 72 Pulse Rate [ 61 From Monitor] Respiratory 13 12 14 Rate Blood Pressure 115/66 100/60 101/68 O2 Sat by Pulse 100 99 Oximetry 11/11/20 11/11/20 11/11/20 04:21 04:30 05:00 Temperature Pulse Rate 74 75 73 Pulse Rate [ From Monitor] Respiratory 13 14 Rate Blood Pressure 101/68 102/75 121/73 O2 Sat by Pulse Oximetry 11/11/20 11/11/20 11/11/20 05:30 06:00 06:30 Temperature Pulse Rate 71 75 77 Pulse Rate [ From Monitor] Respiratory 13 15 11 L Rate Blood Pressure 121/70 132/76 126/72 O2 Sat by Pulse 100 100 Oximetry 11/11/20 11/11/20 11/11/20 07:00 07:27 07:30 Temperature 98.3 F Pulse Rate 73 74 74 Pulse Rate [ From Monitor] Respiratory 12 12 Rate Blood Pressure 114/66 137/76 137/76 O2 Sat by Pulse 100 100 99 Oximetry 11/11/20 11/11/20 08:00 08:30 Temperature Pulse Rate 75 73 Pulse Rate [ 75 From Monitor] Respiratory 9 L 9 L Rate Blood Pressure 136/78 130/74 O2 Sat by Pulse 100 99 Oximetry - Lab 11/11/20 14:41 11/11/20 08:35 Most recent lab results ABG pH 7.494 (7.320-7.450) H 11/08/20 03:38 ABG O2 Saturation 98.4 (0-100) 11/08/20 03:38 Calcium 7.1 mg/dL (8.4-10.2) L 11/10/20 05:30 Phosphorus 2.90 mg/dL (2.5-4.5) 11/10/20 05:30 Magnesium 4.40 mg/dL (1.7-2.3) H 11/10/20 05:30 Urine Creatinine < 4.2 mg/dL (0.1-20.0) 11/04/20 12:50 Urine Sodium 10 mmol/L 11/04/20 12:50 Medications & Allergies - Medications Allergies/Adverse Reactions: Allergies No Known Allergies Allergy (Unverified 10/23/20 12:44) Home Medications: Home Medications Medication Instructions Recorded Confirmed Last Taken Type Levothyroxine Sodium 150 mcg PO DAILY 10/31/20 10/31/20 Unknown History [Levothyroxine] carvediloL [Coreg] 6.25 mg PO BID 10/31/20 10/31/20 Unknown History lisinopriL [Lisinopril] 10 mg PO DAILY 10/31/20 10/31/20 Unknown History Active Medications: Generic Name Dose Route Start Last Admin Trade Name Freq PRN Reason Stop Dose Admin Bisacodyl 10 mg 11/08/20 22:00 11/10/20 21:17 Bisacodyl 10 Mg Rect Supp [place] 10 mg BID ALEX Administration Dextrose 50 ml 11/08/20 08:04 Dextrose 50% In Water (25gm) 50 Ml Syringe IV Q30MIN PRN Hypoglycemia Protocol Fentanyl 50 mcg 11/03/20 16:46 Fentanyl 100 Mcg/2 Ml Inj IV Q10MIN PRN ANALGESIA Hydrophilic Ointment 1 applic 11/03/20 16:46 Lip Therapy Vaseline TP Q2HR PRN Dry Lips Fentanyl Citrate 2,000 mcg in 100 mls @ 4.86 mls/hr 11/03/20 17:24 11/11/20 05:41 Fentanyl Drip Premix IV 2 mcg/kg/hr TITR ALEX 9.72 mls/hr Titration Protocol 1 MCG/KG/HR NORepinephrine/NS 8 MG-250 ML 8 mg in 250 mls @ 3.75 mls/hr 11/03/20 18:00 11/10/20 22:58 Norepinephrine/Ns 8 Mg-250 Ml (Double Conc) IV 2 mcg/min TITRATE ALEX 3.75 mls/hr Administration Protocol 2 MCG/MIN Cefepime HCl 2 gm in 100 mls @ 200 mls/hr 11/08/20 22:00 11/10/20 21:17 Cefepime/Ns 2 Gm/100 Ml IV 11/14/20 22:29 200 mls/hr Q24H ALEX Administration Protocol Dextrose/Sodium Chloride 1,000 mls @ 100 mls/hr 11/08/20 17:00 11/10/20 17:44 D5/0.45ns IV 100 mls/hr DIRECT ALEX Administration Propofol 1,000 mg in 100 mls @ 3.126 mls/hr 11/08/20 17:00 11/11/20 04:00 Diprivan 10 Mg/Ml IV 0 mcg/kg/min TITR ALEX 0 mls/hr Titration Protocol 5 MCG/KG/MIN Metronidazole 500 mg in 100 mls @ 100 mls/hr 11/08/20 17:00 11/11/20 01:30 Flagyl 500 Mg/100 Ml IV 11/14/20 17:59 100 mls/hr Q8H ALEX Administration Protocol Heparin Sodium/Sodium Chloride 25,000 unit in 500 mls @ 30 mls/hr 11/09/20 13:00 11/11/20 06:59 Heparin/ 0.45% Nacl-25,000 Unit/500 Ml IV 1,300 units/hr TITR ALEX 26 mls/hr Titration Protocol 1,500 UNITS/HR Amino Acids/Electrolytes/Dextrose 1,800 mls @ 75 mls/hr 11/10/20 20:00 11/10/20 21:00 Tpn Adult IV 11/11/20 19:59 75 mls/hr DAILY@1999 ALEX Administration Protocol Insulin Human Regular 0 units 11/08/20 09:00 11/11/20 05:22 Insulin Regular, Human 100 Units/1 Ml SUB-Q Not Given Q6H ALEX Protocol Levothyroxine Sodium 75 mcg 11/09/20 06:00 11/11/20 05:33 Levothyroxine 100 Mcg Inj IV 75 mcg DAILY@0600 ALEX Administration Multi-Ingred Cream/Lotion/Oil/Oint 1 applic 11/03/20 16:46 Mineral Oil/Petrolatum, White Ophth Oint 3.5 Gm OU Q4HR PRN Dry Eye(s) Ondansetron HCl 4 mg 10/23/20 20:00 11/07/20 23:09 Ondansetron 4 Mg/2 Ml Inj IV 4 mg Q8H PRN Administration Nausea And Vomiting Pantoprazole Sodium 40 mg 11/07/20 22:00 11/10/20 21:17 Pantoprazole 40 Mg Inj IV 40 mg BID ALEX Administration Sodium Chloride 10 ml 10/23/20 20:00 11/08/20 21:24 Sodium Chloride 0.9% 10 Ml Flush Syringe IV 10 ml PRN PRN Administration LINE FLUSH
[2020-11-11 09:23] LABS: Calcium 6.7 mg/dL (8.4-10.2)
[2020-11-11 09:30] LABS: Hematocrit 27.2 % (35.5-45.6); Hemoglobin 9.2 gm/dl (11.8-15.2)
--- NOTE | 2020-11-11 09:33 | Progress Note ---
Assessment and Plan Assessment and plan: This is a 70-year-old male with hypertension and hypothyroidism who was admitted with a CVA (neurology consulted, stroke pathway initiated),CHF, bilateral pneumonia, COVID 19 PUI and acute hypoxic respiratory failure. 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 Acute hypoxic respiratory failure Acute on chronic systolic heart failure with exacerbation Pneumonia Cardiomyopathy Left bundle branch block Leukocytosis Hyperchloremia Urinary tract infection Acute right leg thrombosis Acute kidney injury Cardiomyopathy Left atrial appendage thrombus Anemia s/p 5 units PRBC transfusion Hypertension Hypothyroidism -CCM, cardiology, neurology, vascular surgery, nephrology,general surgery, infectious disease, hematology/oncology, GI, surgery, WOCN, ST/PT/OT consulted, appreciate recommendations -10/23 CT head shows no acute findings, periventricular areas of low attenuation suggestive of nonspecific white matter change, concern for acute ischemic change -10/23 CTA chest shows findings suggestive of mild congestive failure, negative fo r pulmonary embolism -10/23 CT head with contrast shows no indication of intracranial stenosis or large vessel occlusion -10/23 CTA neck shows no indication of hemodynamically significant stenosis the ca rotid bifurcations are also clear, right larger than left pleural effusion, remote ACDF at C5-C6 and C6-C7 levels, multifocal neuroforaminal narrowing, mild central canal stenosis evident at C5-C6 level -10/23 bilateral carotid ultrasound shows no significant stenosis -10/23 echocardiogram shows left ventricle moderately dilated, borderline concentric left ventricular hypertrophy, impaired LV relaxation, moderate left ventricular diastolic dysfunction, left ventricular end-diastolic pressure is moderately elevated, no left ventricle thrombus noted in the study, mildly dilated right ventricle, mildly dilated left atrium, saline bubble contrast intravenous injection does not demonstrate PFO, the ventricle systolic function is mild to moderately decreased, LVEF is 35 to 40% with hypokinesis of the septal and inferior wall, moderate to severe hypokinesis in the inferior wall, moderate hypokinesis of the mid inferior septal wall, moderate hypokinesis of the apical septal wall, trace TR, RVSP is 23 mmHg. -10/25 MRI Brain shows acute infarction in the left middle cerebral artery without hemorrhagic conversion -11/02 bilateral lower extremity Doppler ultrasound shows occlusive thrombus in the peroneal vein -11/02 s/p right lower extremity emergent embolectomy with right 4 compartment fasciotomy with vascular surgery -11/03 MRI brain shows interval evolutionary changes of the patchy areas of inf arction along the left trigonal region, development of 7 mm focus of acute infarction involving more superior left frontoparietal junction -11/04 abdominal x-ray shows persistent abdominal distention -11/04 renal ultrasound shows findings of medical renal disease without other significant sonographic abnormality -11/05 abdominal x-ray shows increasing bowel distention appears to be predominantly in the colon, moderate/large chronic stool with no free air -11/05 CT head shows decreased attenuation along the superior parietal lobe compatible with evolving infarction without intracranial hemorrhage or other acute abnormality/interval changes -11/07 abdominal x-ray shows abundant fecal material noted throughout the colon and rectal vault consistent with history of constipation which are minimally improved when compared to 11/05, gas-filled and distended bowel loops are similar to prior exam -11/07 CT head shows evolving infarcts involving the left temporoparietal to the left frontoparietal lobes since 11/05 -11/08 abdomen/pelvis CT shows mild diffuse dilation of small bowel loops and proximal colon with evidence of pneumatosis concerning for ischemic bowel, small ascites but no evidence of free air or fluid collection, diffuse ileus also suspected, mild cardiomegaly with trace pericardial effusion, few tiny gallstones in the gallbladder with out abnormal dilation or wall thickening. -11/08 s/p exploratory laparotomy, small bowel resection; intaop findings: 1. Segmental infarcts of distal small intestine with pneumatosis intestinalis present - approximately 30 cm of small bowel resected, 2. SMA with strongly palpable pulse., 3. Large stool burden in left colon -11/10 Limited echocardiogram shows left ventricular systolic function moderately decreased, LVEF 35 to 40%, mild concentric LVH, trace pericardial effusion adjacent to the right ventricle, pulmonary valve is normal in structure, tricuspid valve is normal in structure -11/10 s/p reexploration of abdomen, appendectomy, small bowel anastomosis and surgeon found all viable small and large bowel with well-perfused anastomosis by ICG fluorescence imaging. EARNESTINE drain was placed. -IV antibiotics -Vasopressor support with Levophed -Aspirin 325, Lipitor, BB (on hold per surgery as pt is strict NPO) -Mechanical ventilation, wean as tolerated, VAP bundle -HIT panel negative -SSI -IV antibiotics -Continue home Synthroid, converted to IV -Hold antihypertensive regimen in setting of hypotension and the use of vasopressors -Fentanyl gtt -Transfuse for hbg <7 -TPN -Soapsuds enema/duculox suppository -Trend CBC, BMP DVT/GI prophylaxis: SCDs to bilateral extremities while in bed, Protonix, heparin gtt Disposition: ICU The high probability of a clinically significant, sudden or life threatening deterioration of the [cardiac, respiratory and hemodynamic] system(s) required my full and direct attention, intervention and personal management. The aggregate critical care time was [32] minutes. This time is in addition to time spent performing reported procedures but includes the following: [x] Data Review and interpretation [x] Patient assessment and monitoring of vital signs [x] Documentation [x] Medication orders and management History Interval history: This is a 70-year-old male with hypertension and hypothyroidism who presented to the emergency department on 10/23 with confusion, weakness, exercise intolerance, shortness of breath on exertion, increased bedbound status and decreased oral intake with progressively worsened over the past 2 days prior to presentation. Patient was found to have clinical symptoms consistent with a CVA (neurology consulted, stroke pathway initiated) CHF, bilateral pneumonia, and acute hypoxic respiratory failure. Patient was initiated coronavirus, pneumonia and CHF protocol. Cardiology was consulted in the emergency department. 10/24/2020: Acute CVA with right hemiparesis , PT and OT 10/25/2020: Acute CVA with right hemiplegia, Rehab consult requested, Ejection fraction is 35 to 40% 10/26/2020:patient with acute CVA and right-sided hemiparesis, PT evaluated the patient and recommended acute rehab, Case management processing the request, Possible discharge in 1 to 2 days if stable 10/27/2020: patient is clinically stable, awaiting rehab/SNF placement. DC planning per Case management., Neuro recommend KELLY[possible embolic CVA] follow KELLY 10/28/20: patient is doing slightly better. No new complain. Clinically stable, Patient is going for KELLY today., DC planning to rehab/SNF when cleared by neurology., DC planning per case management 10/29/20: patient is doing slightly better. No new complain. Clinically stable, continue physical therapy occupational therapy, Patient is going for KELLY on Sunday, DC planning to rehab/SNF after KELLY on Sunday, DC planning per case management 10/30/20: patient is sitting in chair. No new complain. Clinically stable, continue physical therapy occupational therapy, Patient is going for KELLY on Sunday, Awaiting DC planning to rehab/SNF after KELLY on Sunday. 10/31/20: patient is seen and examined. No new complain. Clinically stable, continue physical therapy occupational therapy., Patient is going for KELLY on Sunday., Awaiting DC planning to rehab/SNF after KELLY on Sunday. 11/01/20: Patient is seen and examined, Patient with acute CVA and right-sided hemiparesis. Patient is evaluated by PT and recommended acute rehab Patient is going for KELLY today, Patient is waiting for DC planning to rehab/SNF after KELLY. 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 Patient has chosen [facility] and awaiting authorization. 11/02/2020. KELLY revealed left atrial appendage thrombus. Mildly dilated left ventricle with mild left ventricular hypertrophy with moderate global left ventricular hypokinesis with EF of 40 to 45%. Anticoagulation per cardiology recommendations. Physical therapy recommendations for acute rehab. 11/03/2020. Patient appears to have worsening aphasia and worsening right-sided weakness today per neurology. MRI brain stat. Leukocytosis likely leukemoid reaction from compartment syndrome. Patient is s/p right lower extremity thombectomy with 4 compartment fasciotomy yesterday. Bleeding from incisions over night. Consider ID consultation. Start empiric antibiotics. 11/04/2020. Patient decompensated yesterday evening with hypotension and worsening mental status. Patient was started on vasopressors and intubated. Patient is currently intubated and on fentanyl for sedation. Patient with worsening leukocytosis. Lactic acidosis likely secondary to compartment syndrome. Patient is s/p right lower extremity thombectomy with 4 compartment fasciotomy on 11/02/2020. Levaquin started empirically yesterday. ID consultation today. Patient also with worsening creatinine secondary to acute kidney injury. 11/05/2020. Patient attempted to pull out his ETT while I was examining him. Continue restraints for safety. Patient did manage to pull out his Winkler catheter and now has hematuria. We will irrigate the bladder and monitor closely patient is on anticoagulation with IV heparin. Continue Levophed drip to maintain MAP >65. Patient currently with mechanical ventilation AC mode rate of 12, tidal volume 500, FiO2 30% and a PEEP of 6. Continue fentanyl for sedation. Consult hematology hypercoagulable state given the arterial and venous thrombi. 11/06/2020. Hematology ordered argatroban and steroid pulse therapy. Follow work-up to rule out HIT. Follow-up pF4 Ab testing, Hgb electrophoresis, cardiolipin ab. Continue Levophed drip to maintain MAP >65. Patient currently with mechanical ventilation AC mode rate of 12, tidal volume 500, FiO2 30% and a PEEP of 6. Continue fentanyl for sedation. Continue antibiotics of cefepime and vancomycin. Sputum, blood and urine cultures are negative. Continue restraints for safety. 11/07/2020. Continue steroid pulse therapy per hematology recommendations. Argatroban on hold for GI bleeding and hematuria. Follow-up HIT panel and pF4 Ab testing, Hgb electrophoresis, cardiolipin ab. Continue Levophed drip to maintain MAP >65. Patient currently with mechanical ventilation AC mode rate of 12, tidal volume 500, FiO2 30% and a PEEP of 6. Continue fentanyl for sedation. Continue antibiotics of cefepime and vancomycin. Sputum, blood and urine cultures are negative. Continue restraints for safety. 11/08: CT abd/pelvis obtained today is concerning for ischemic bowels, surgery was consulted. This morning patient was on CPAP trial 03/30 at the time my examination patient is on vasopressor support with Levophed and his HIT panel is pending. He was sedated on 1 mcg of fentanyl. Lab work this morning shows leukocytosis, anemia (transfuse 1 unit PRBC), hyperkalemia (received D50 and insulin), hypochloremia and increasing BUN/creatinine. 11/09: S/p ex lap and small bowel resection on 11/08 with surgery, patient was restarted argatroban drip per surgery, HIT panel negative. CCM will start on low-dose heparin drip. Patient was given 2 g of calcium for his K 5 by nephrology. Surgery plans to return to the OR tomorrow for reexploration with possible anastomosis and abdominal closure. At the time of my examination he is sedated on propofol, fentanyl and vasopressor support with Levophed. Patient is on assist control tidal volume 500, rate 18, PEEP of 6, FiO2 25%. 11/10: Patient noted to be anemic today, PRBC transfusion ordered. Patient has 2 units ready for OR, per RN hem/onc is requesting 2 units of PRBC to be transfused. Will obtain post transfusion h/h. Planned for OR today. At the time of my examination he is sedated on propofol, fentanyl and vasopressor support with Levophed. Patient is on assist control tidal volume 500, rate 12, PEEP of 6, FiO2 25%. Pericardial effusion noted as incidental finding with imaging and cardio will conduct a limited echo to quantify amount. 11/11: Patient was taken to the OR for reexploration of abdomen, appendectomy, small bowel anastomosis and surgeon found all viable small and large bowel with well-perfused anastomosis by ICG fluorescence imaging yesterday and a EARNESTINE drain was placed. AM BMP pending, CBC stable. Patient still continues to ooze at fasciotomy site and MLA dressing. RN to change dressings. Sedated with fentanyl and on levophed (RN to attempt to titrate off as tolerated) and on AC TV 500,R12,Peep 6 and 25%FiO2. Remains on heparin gtt. CPAP trial today and LA will be obtained Hospitalist Physical - Constitutional Vitals: Temp Pulse Resp BP Pulse Ox 98.3 F 73 9 L 130/74 99 11/11/20 07:00 11/11/20 08:30 11/11/20 08:30 11/11/20 08:30 11/11/20 08:30 General appearance: Present: no acute distress, other (Intubated, sedated) - EENT Eyes: Present: PERRL ENT: poor dentition - Neck Neck: Present: normal ROM - Respiratory Respiratory effort: normal Respiratory: bilateral: CTA - Cardiovascular Rhythm: regular Heart Sounds: Present: S1 & S2. Absent: systolic murmur, diastolic murmur - Extremities Extremities: no ischemia, pulses intact, pulses symmetrical, normal temperature Extremity abnormal: edema Peripheral Pulses: within normal limits - Abdominal General gastrointestinal: soft, non-tender, non-distended, hypoactive bowel sounds - Integumentary Integumentary: Present: warm, dry - Psychiatric Psychiatric: other (does not follow commands) - Neurologic Neurologic: other (moves extremites spontanously, cough/gag intact) - Allied Health Allied health notes reviewed: nursing, RT, social work HEART Score - HEART Score Troponin: Troponin T 0.026 ng/mL (0.00-0.029) 10/23/20 16:39 Results - Labs CBC & Chem 7: 11/11/20 09:14 11/11/20 08:35 Labs: Laboratory Last Values WBC 17.4 K/mm3 (4.5-11.0) H 11/11/20 05:30 RBC 3.17 M/mm3 (3.65-5.03) L 11/11/20 05:30 Hgb 9.5 gm/dl (11.8-15.2) L 11/11/20 05:30 Hct 29.0 % (35.5-45.6) L 11/11/20 05:30 MCV 91 fl (84-94) 11/11/20 05:30 MCH 30 pg (28-32) 11/11/20 05:30 MCHC 33 % (32-34) 11/11/20 05:30 RDW 16.2 % (13.2-15.2) H 11/11/20 05:30 Plt Count 168 K/mm3 (140-440) 11/11/20 05:30 Lymph % (Auto) 27.8 % (13.4-35.0) 10/23/20 13:32 [place]key % (Auto) 6.0 % (0.0-7.3) 10/23/20 13:32 Eos % (Auto) 1.6 % (0.0-4.3) 10/23/20 13:32 Baso % (Auto) 0.7 % (0.0-1.8) 10/23/20 13:32 Lymph # (Auto) 1.5 K/mm3 (1.2-5.4) 10/23/20 13:32 Dickey # (Auto) 0.3 K/mm3 (0.0-0.8) 10/23/20 13:32 Eos # (Auto) 0.1 K/mm3 (0.0-0.4) 10/23/20 13:32 Baso # (Auto) 0.0 K/mm3 (0.0-0.1) 10/23/20 13:32 Add Manual Diff Complete 11/09/20 03:21 Total Counted 100 11/09/20 03:21 Seg Neutrophils % Addressograph Operator 11/09/20 03:21 Seg Neuts % (Manual) 89.0 % (40.0-70.0) H 11/09/20 03:21 Lymphocytes % (Manual) 6.0 % (13.4-35.0) L 11/09/20 03:21 Monocytes % (Manual) 5.0 % (0.0-7.3) 11/09/20 03:21 Metamyelocytes % 1.0 % 11/04/20 04:00 Nucleated RBC % Not Reportable 11/09/20 03:21 Seg Neutrophils # 3.4 K/mm3 (1.8-7.7) 10/23/20 13:32 Seg Neutrophils # Man 16.9 K/mm3 (1.8-7.7) H 11/09/20 03:21 Band Neutrophils # 0.0 K/mm3 11/09/20 03:21 Lymphocytes # (Manual) 1.1 K/mm3 (1.2-5.4) L 11/09/20 03:21 Abs React Lymphs (Man) 0.0 K/mm3 11/09/20 03:21 Monocytes # (Manual) 1.0 K/mm3 (0.0-0.8) H 11/09/20 03:21 Eosinophils # (Manual) 0.0 K/mm3 (0.0-0.4) 11/09/20 03:21 Basophils # (Manual) 0.0 K/mm3 (0.0-0.1) 11/09/20 03:21 Metamyelocytes # 0.0 K/mm3 11/09/20 03:21 Myelocytes # 0.0 K/mm3 11/09/20 03:21 Promyelocytes # 0.0 K/mm3 11/09/20 03:21 Blast Cells # 0.0 K/mm3 11/09/20 03:21 WBC Morphology Not Reportable 11/09/20 03:21 Hypersegmented Neuts Not Reportable 11/09/20 03:21 Hyposegmented Neuts Not Reportable 11/09/20 03:21 Hypogranular Neuts Not Reportable 11/09/20 03:21 Smudge Cells Not Reportable 11/09/20 03:21 Toxic Granulation Not Reportable 11/09/20 03:21 Toxic Vacuolation Not Reportable 11/09/20 03:21 Dohle Bodies Not Reportable 11/09/20 03:21 Pelger-Huet Anomaly Not Reportable 11/09/20 03:21 Demario Rods Not Reportable 11/09/20 03:21 Platelet Estimate Consistent w auto 11/09/20 03:21 Clumped Platelets Not Reportable 11/09/20 03:21 Plt Clumps, EDTA Not Reportable 11/09/20 03:21 Large Platelets Not Reportable 11/09/20 03:21 Giant Platelets Not Reportable 11/09/20 03:21 Platelet Satelliting Not Reportable 11/09/20 03:21 Plt Morphology Comment Not Reportable 11/09/20 03:21 RBC Morphology Not Reportable 11/09/20 03:21 Dimorphic RBCs Not Reportable 11/09/20 03:21 Polychromasia Not Reportable 11/09/20 03:21 Hypochromasia 1+ 11/09/20 03:21 Poikilocytosis Not Reportable 11/09/20 03:21 Anisocytosis 1+ 11/09/20 03:21 Microcytosis Not Reportable 11/09/20 03:21 Macrocytosis Not Reportable 11/09/20 03:21 Spherocytes Not Reportable 11/09/20 03:21 Pappenheimer Bodies Not Reportable 11/09/20 03:21 Sickle Cells Not Reportable 11/09/20 03:21 Target Cells Not Reportable 11/09/20 03:21 Tear Drop Cells Not Reportable 11/09/20 03:21 Ovalocytes Not Reportable 11/09/20 03:21 Helmet Cells Not Reportable 11/09/20 03:21 Oliva-Evarts Bodies Not Reportable 11/09/20 03:21 [place] Rings Not Reportable 11/09/20 03:21 [place] Cells Not Reportable 11/09/20 03:21 Bite Cells Not Reportable 11/09/20 03:21 Crenated Cell Not Reportable 11/09/20 03:21 Elliptocytes Not Reportable 11/09/20 03:21 Acanthocytes (Spur) Not Reportable 11/09/20 03:21 Rouleaux Not Reportable 11/09/20 03:21 Hemoglobin C Crystals Not Reportable 11/09/20 03:21 Schistocytes Not Reportable 11/09/20 03:21 Malaria parasites Not Reportable 11/09/20 03:21 Lico Bodies Not Reportable 11/09/20 03:21 Hem Pathologist Commnt No 11/09/20 03:21 PT 16.2 Sec. (12.2-14.9) H 11/02/20 19:55 INR 1.30 (0.87-1.13) H 11/02/20 19:55 APTT 50.8 Sec. (24.2-36.6) H 11/09/20 03:21 D-Dimer 4139.61 ng/mlDDU (0-234) H 10/23/20 18:23 Heparin Anti-Xa Level 0.44 U.I./ml (0.3-0.7) 11/11/20 05:30 Heparin Anti-Xa, Unfract Negative (Negative) 11/06/20 Unknown ABG pH 7.494 (7.320-7.450) H 11/08/20 03:38 POC ABG pCO2 36.6 mmHg (32.0-48.0) 11/08/20 03:38 POC ABG pO2 111.5 mmHg (83-108) H 11/08/20 03:38 POC ABG HCO3 27.5 11/08/20 03:38 ABG O2 Saturation 98.4 (0-100) 11/08/20 03:38 POC ABG Base Excess 3.9 11/08/20 03:38 ABG Hemoglobin 6.7 (12.0-17.5) L 11/08/20 03:38 ABG Oxyhemoglobin 97.0 (94-98) 11/08/20 03:38 ABG Methemoglobin 0.3 (0.0-1.5) 11/08/20 03:38 ABG Sodium 141.1 mmol/L (136.0-145.0) 11/08/20 03:38 ABG Potassium 4.9 mmol/L (3.40-4.50) H 11/08/20 03:38 ABG Chloride 112.0 mmol/L (98-107) H 11/08/20 03:38 ABG Glucose 153 mg/dL (65-95) H 11/08/20 03:38 Carboxyhemoglobin 1.1 (0.5-1.5) 11/08/20 03:38 FiO2 % 25.0 11/08/20 03:38 Sodium 142 mmol/L (137-145) 11/10/20 05:30 Potassium 4.9 mmol/L (3.6-5.0) 11/10/20 05:30 Chloride 111.3 mmol/L (98-107) H 11/10/20 05:30 Carbon Dioxide 29 mmol/L (22-30) 11/10/20 05:30 Anion Gap 7 mmol/L 11/10/20 05:30 BUN 74 mg/dL (9-20) H 11/10/20 05:30 Creatinine 2.3 mg/dL (0.8-1.3) H 11/10/20 05:30 Estimated GFR 34 ml/min 11/10/20 05:30 BUN/Creatinine Ratio 32 % 11/10/20 05:30 Glucose 119 mg/dL (75-100) H 11/10/20 05:30 POC Glucose 127 mg/dL (70-105) H 11/11/20 05:16 Lactic Acid 1.30 mmol/L (0.7-2.0) 11/04/20 13:01 Calcium 7.1 mg/dL (8.4-10.2) L 11/10/20 05:30 Ionized Calcium 4.7 mg/dL (4.8-5.6) L 11/06/20 06:00 Phosphorus 2.90 mg/dL (2.5-4.5) 11/10/20 05:30 Magnesium 4.40 mg/dL (1.7-2.3) H 11/10/20 05:30 Ferritin 238.5 ng/mL (30.0-300.0) 10/23/20 18:23 Total Bilirubin 0.50 mg/dL (0.1-1.2) 11/08/20 19:11 Direct Bilirubin < 0.2 mg/dL (0-0.2) 11/08/20 19:11 Indirect Bilirubin 0.3 mg/dL 11/08/20 19:11 AST 21 units/L (5-40) 11/08/20 19:11 ALT 27 units/L (7-56) 11/08/20 19:11 Alkaline Phosphatase 41 units/L (35-129) 11/08/20 19:11 Lactate Dehydrogenase 334 units/L (91-180) H 10/23/20 18:23 Troponin T 0.026 ng/mL (0.00-0.029) 10/23/20 16:39 C-Reactive Protein 8.30 mg/dL (0.00-1.30) H 11/04/20 13:01 NT-Pro-B Natriuret Pep 5806 pg/mL (0-900) H 10/23/20 13:32 Serum Total Protein 4.1 g/dL (6.1-8.1) L 11/06/20 Unknown Total Protein 3.8 g/dL (6.3-8.2) L 11/08/20 19:11 Albumin 2.2 g/dL (3.9-5) L 11/08/20 19:11 Albumin/Globulin Ratio 1.4 % 11/08/20 19:11 Mzsru-2-Rdprfpcoq 0.5 g/dL (0.2-0.3) H 11/06/20 Unknown Yvcyh-0-Chxdvxqlo 0.7 g/dL (0.5-0.9) 11/06/20 Unknown Beta Globulins 0.2 g/dL (0.2-0.5) 11/06/20 Unknown Gamma Globulins 0.4 g/dL (0.8-1.7) L 11/06/20 Unknown Abnorm Protein Band 1 see below 11/06/20 Unknown PEP Interpretation see below H 11/06/20 Unknown Triglycerides 63 mg/dL (2-149) 11/10/20 05:30 Cholesterol 139 mg/dL (50-199) 10/24/20 09:29 LDL Cholesterol Direct 87 mg/dL (50-130) 10/24/20 09:29 HDL Cholesterol 46 mg/dL (40-59) 10/24/20 09:29 Cholesterol/HDL Ratio 3.02 % 10/24/20 09:29 Serotonin Release Assay See scanned result 11/06/20 Unknown Procalcitonin 0.99 ng/mL (<0.15) 11/03/20 21:14 TSH 6.540 mlU/mL (0.270-4.200) H 10/23/20 18:23 TSH 7.100 mlU/mL (0.270-4.200) H 10/23/20 18:23 Free T4 1.33 ng/dL (0.76-1.46) 10/23/20 18:23 Arterial Blood Glucose 153 mg/dL (65-95) H 11/08/20 03:38 Arterial Blood Ionized Calcium 4.5 mg/dL (4.6-5.3) L 11/08/20 03:38 Urine Color Yellow (Yellow) 11/04/20 11:00 Urine Turbidity Hazy (Clear) 11/04/20 11:00 Urine pH 5.0 (5.0-7.0) 11/04/20 11:00 Ur Specific [place] 1.017 (1.003-1.030) 11/04/20 11:00 Urine Protein 30 mg/dl mg/dL (Negative) 11/04/20 11:00 Urine Glucose (UA) 50 mg/dL (Negative) 11/04/20 11:00 Urine Ketones Neg mg/dL (Negative) 11/04/20 11:00 Urine Blood Neg (Negative) 11/04/20 11:00 Urine Nitrite Neg (Negative) 11/04/20 11:00 Urine Bilirubin Neg (Negative) 11/04/20 11:00 Urine Urobilinogen < 2.0 mg/dL (<2.0) 11/04/20 11:00 Ur Leukocyte Esterase Tr (Negative) 11/04/20 11:00 Urine WBC (Auto) 19.0 /HPF (0.0-6.0) H 11/04/20 11:00 Urine RBC (Auto) 3.0 /HPF (0.0-6.0) 11/04/20 11:00 U Epithel Cells (Auto) < 1.0 /HPF (0-13.0) 11/04/20 11:00 Urine Mucus Few /HPF 11/04/20 11:00 Urine Eosinophils None seen (None Seen) 11/04/20 12:50 Urine Creatinine < 4.2 mg/dL (0.1-20.0) 11/04/20 12:50 Urine Sodium 10 mmol/L 11/04/20 12:50 Random Vancomycin 10.7 ug/mL (0-40.0) 11/08/20 04:39 Heparin-induced Plt Ab Negative (Negative) 11/06/20 Unknown UF Heparin High Dose 0 % Release 11/06/20 Unknown DYLAN UFH Low Dose 0.1 0 % Release 11/06/20 Unknown DYLAN UFH Low Dose 0.5 0 % Release 11/06/20 Unknown Cardiolipid IgG Ab <14 GPL (<=14) 11/06/20 Unknown Cardiolipid IgA Ab <11 APL (<=11) 11/06/20 Unknown Cardiolipid IgM Ab <12 MPL (<=12) 11/06/20 Unknown Coronavirus (PCR) Negative (Negative) 10/24/20 09:57 Blood Type O POSITIVE 11/08/20 11:15 Antibody Screen Negative 11/08/20 11:15 Crossmatch See Detail 11/08/20 11:15 Winkler/IV: Voiding Method Indwelling Catheter Active Medications - Current Medications Current Medications: Generic Name Dose Route Start Last Admin Trade Name Freq PRN Reason Stop Dose Admin Bisacodyl 10 mg 11/08/20 22:00 11/10/20 21:17 Bisacodyl 10 Mg Rect Supp NH 10 mg BID ALEX Administration Dextrose 50 ml 11/08/20 08:04 Dextrose 50% In Water (25gm) 50 Ml Syringe IV Q30MIN PRN Hypoglycemia Protocol Fentanyl 50 mcg 11/03/20 16:46 Fentanyl 100 Mcg/2 Ml Inj IV Q10MIN PRN ANALGESIA Hydrophilic Ointment 1 applic 11/03/20 16:46 Lip Therapy Vaseline TP Q2HR PRN Dry Lips Fentanyl Citrate 2,000 mcg in 100 mls @ 4.86 mls/hr 11/03/20 17:24 11/11/20 05:41 Fentanyl Drip Premix IV 2 mcg/kg/hr TITR ALEX 9.72 mls/hr Titration Protocol 1 MCG/KG/HR NORepinephrine/NS 8 MG-250 ML 8 mg in 250 mls @ 3.75 mls/hr 11/03/20 18:00 11/10/20 22:58 Norepinephrine/Ns 8 Mg-250 Ml (Double Conc) IV 2 mcg/min TITRATE ALEX 3.75 mls/hr Administration Protocol 2 MCG/MIN Cefepime HCl 2 gm in 100 mls @ 200 mls/hr 11/08/20 22:00 11/10/20 21:17 Cefepime/Ns 2 Gm/100 Ml IV 11/14/20 22:29 200 mls/hr Q24H ALEX Administration Protocol Dextrose/Sodium Chloride 1,000 mls @ 100 mls/hr 11/08/20 17:00 11/10/20 17:44 D5/0.45ns IV 100 mls/hr DIRECT ALEX Administration Propofol 1,000 mg in 100 mls @ 3.126 mls/hr 11/08/20 17:00 11/11/20 04:00 Diprivan 10 Mg/Ml IV 0 mcg/kg/min TITR ALEX 0 mls/hr Titration Protocol 5 MCG/KG/MIN Metronidazole 500 mg in 100 mls @ 100 mls/hr 11/08/20 17:00 11/11/20 01:30 Flagyl 500 Mg/100 Ml IV 11/14/20 17:59 100 mls/hr Q8H ALEX Administration Protocol Heparin Sodium/Sodium Chloride 25,000 unit in 500 mls @ 30 mls/hr 11/09/20 13:00 11/11/20 06:59 Heparin/ 0.45% Nacl-25,000 Unit/500 Ml IV 1,300 units/hr TITR ALEX 26 mls/hr Titration Protocol 1,500 UNITS/HR Amino Acids/Electrolytes/Dextrose 1,800 mls @ 75 mls/hr 11/10/20 20:00 11/10/20 21:00 Tpn Adult IV 11/11/20 19:59 75 mls/hr DAILY@2000 [facility] Administration Protocol Insulin Human Regular 0 units 11/08/20 09:00 11/11/20 05:22 Insulin Regular, Human 100 Units/1 Ml SUB-Q Not Given Q6H [facility] Protocol Levothyroxine Sodium 75 mcg 11/09/20 06:00 11/11/20 05:33 Levothyroxine 100 Mcg Inj IV 75 mcg DAILY@0600 [facility] Administration Multi-Ingred Cream/Lotion/Oil/Oint 1 applic 11/03/20 16:46 Mineral Oil/Petrolatum, White Ophth Oint 3.5 Gm OU Q4HR PRN Dry Eye(s) Ondansetron HCl 4 mg 10/23/20 20:00 11/07/20 23:09 Ondansetron 4 Mg/2 Ml Inj IV 4 mg Q8H PRN Administration Nausea And Vomiting Pantoprazole Sodium 40 mg 11/07/20 22:00 11/10/20 21:17 Pantoprazole 40 Mg Inj IV 40 mg BID ALEX Administration Sodium Chloride 10 ml 10/23/20 20:00 11/08/20 21:24 Sodium Chloride 0.9% 10 Ml Flush Syringe IV 10 ml PRN PRN Administration LINE FLUSH Nutrition/Malnutrition Assess - Dietary Evaluation Nutrition/Malnutrition Findings: Nutrition Notes Start: 10/24/20 11:33 Freq: Status: Active Protocol: Document 11/10/20 10:41 TERRY (Rec: 11/10/20 10:53 TERRY [id number]) Co-Sign 11/10/20 10:41 BETHEL Nutrition Notes Need for Assessment generated from: MD Order Initial or Follow up Reassessment Current Diagnosis Acute Kidney Injury, Hypertension,Heart Failure, Respiratory Failure,Stroke Other Pertinent Diagnosis pneumatosis intestinalis Current Diet TPN Labs/Tests Cl 111.3 BUN 74 Cr 2.3 BG 119 Ca 7.1 P 4.4 Pertinent Medications D5 1/2NS 100ml/hr Propofol 10mcg/kg/min Dulcolax Norepinephine Height 5 ft 11 in Weight 104.2 kg Deeth Body Weight (kg) 78.18 BMI 32.0 Weight Status Overweight Subjective/Other Information MD order for write/manage TPN. Pt did not tolerate TF and has no intakes x4 days. 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 Pt has central line available for TPN, per RN. Percent of energy/protein needs met: 0%/0% Burn Absent Trauma Absent Current % PO Negligible Minimum of two criteria No physical signs of malnutrition #2 Nutrition Diagnosis Inadequate oral intake Diagnosis Progress(for reassessment Continues documentation) Is patient on ventilator? Yes Is Patient Ambulatory and/or Out of Bed No REE-([facility]-confined to bed) 2194.416 Kcal/Kg value to use for calculation 18 Approximate Energy Requirements Using 1876 kcal/Kg Additional Notes Protein: >156 g (>2 g/kg IBW) Fluid: 1 ml/kcal Nutrition Intervention Change Diet Order: Start CPN Nutrition Support: Start CPN at 75 ml/hr: 8.3% dextrose, 4.2% AA, 75 meq Na, 0 meq K, 5 meq Ca, 0 mmol P, 0 meq Mg, 40/60 Cl/CO2, MVI, Thiamine. Osmolality: 922 mOsm Kcal 810 Protein (gm) 75 Carbohydrates (gm) 150 Fluid (mL) 1,800 Goal #1 Meet at least 75% of energy and protein needs via TPN Anticipated Discharge Needs: Unable to determine at the moment. Follow-Up By: 11/11/20 Additional Comments Labs in AM: BMP, Mag, Phos
--- NOTE | 2020-11-11 10:02 | Progress Note ---
Assessment and Plan Telemetry reviewed: Sinus rhythm 74. Several episodes of 4 beat V. tach noted overnight. Currently with holding beta-chang due to strict TPN/n.p.o. and septic shock requiring Levophed drip. We will continue to monitor. #Atrial Appendage Thrombus * KELLY reviewed (11/01/2020): Likely stock of thrombus in the left atrial appendage of heterogeneous quality. No evidence of valvulopathy. Mildly dilated left ventricle with mild LVH with moderate global LV hypokinesis. LVEF 40 to 45%. No pericardial effusion. Mild plaquing. Normal agitated saline study without evidence of intracardiac or intrapulmonary communication. * HIT panel is negative. Currently anticoagulated on heparin drip. Repeat CBC in a.m. #Anemia * Hemoglobin is significantly improved after transfusion of 2 units of PRBC. Continue to monitor labs #Septic shock * Currently on Levophed titrated drip to maintain hemostasis. Avoid AV marva blocking agents until patient is hemodynamically stable. #Mesenteric infarct s/p laparoscopic bowel resection * Currently strict TPN/NPO orders per GI surgery, discontinue all p.o. medications and convert to IV meds as needed #Acute CVA x2 with residual R side weakness and aphasia. * MRI reviewed (10/23/2020): Acute CVA. * MRI reviewed (11/03/2020) new onset acute CVA. #Ischemic limb in setting of arterial thrombus and extensive DVT s/p revascularization sx * (11/02/2020) occlusive arterial thrombus and extensive DVT developed in right lower limb. Vascular surgery performed open revascularization with 4 compartment fasciotomy. #Cardiomyopathy * Echocardiogram reviewed (10/23/2020): LVEF is 35 to 40%. Left ventricle is moderately dilated. LV SF is mild to moderately decreased. Borderline con centric LVH. Left ventricle has diffuse moderate to severe hypokinesis of the inferior wall. RV SF is normal. Left atrium is mildly dilated. Right atrium is mildly dilated. Saline bubble contrast intravenous injection does not demonstrate PFO. RVSP is 23 mmHg. No valvular abnormalities. * In consideration of patient's mental status acuity and other comorbidities, we will plan for conservative cardiac management. Plan to optimize cardiac regimen once patient is able to resume p.o. medication. #Left bundle branch block * Onset date is unknown. 12-lead reviewed no ST segment elevation. Troponins are negative x2. AMI ruled out. #DVT prophylaxis * SCDs in place. Currently on heparin drip Patient is currently guarded cardiac status with poor prognosis. Will follow This patient was seen in conjunction with Dr Weeks who agrees with this assessment and plan of care. - Patient Problems (1) LBBB (left bundle branch block) Current Visit: Yes Status: Acute (2) Acute CVA (cerebrovascular accident) Current Visit: Yes Status: Acute (3) Cardiomyopathy Current Visit: Yes Status: Acute (4) Suspected 2019 novel coronavirus infection Current Visit: Yes Status: Acute (5) Hypothyroidism Current Visit: Yes Status: Acute (6) atrial appendage thrombus Current Visit: Yes Status: Acute (7) mesenteric ischemia Current Visit: Yes Status: Acute Subjective Date of service: 11/11/20 Principal diagnosis: Ac hypoxemic resp failure; CVA; Acute limb ischemia; Acute encephalopathy Interval history: Patient is resting in bed intubated and sedated. Telemetry reviewed: Sinus rhythm 74. Several episodes of 4 beat V. tach noted overnight. Objective Last Vital Signs Temp 98.3 F 11/11/20 07:00 Pulse 73 11/11/20 09:30 Resp 12 11/11/20 09:30 BP 132/73 11/11/20 09:30 Pulse Ox 99 11/11/20 09:30 - Physical Examination General: Other HEENT: Positive: Normocephaly, Mucus Membranes Moist Neck: Positive: neck supple, trachea midline. Negative: JVD/HJR Cardiac: Positive: Reg Rate and Rhythm, S1/S2 (Intubated and sedated) Lungs: Positive: Ventilated Respirations (Intubated and sedated) Neuro: Positive: Other (Intubated and sedated) Abdomen: Positive: Soft Skin: Negative: Rash, Wound Incision: Cardiac Cath Site Musculoskeletal: No Fluid Collection Extremities: Present: upper extr. pulses, lower extr. pulses, edema, Other (s/p RLE open thrombectomy with four-quadrant fasciotomy) - Labs and Meds CBC 11/10/20 11/10/20 11/11/20 Range/Units 17:50 23:17 05:30 WBC 17.4 H (4.5-11.0) K/mm3 RBC 3.17 L (3.65-5.03) M/mm3 Hgb 9.5 L 9.1 L 9.5 L (11.8-15.2) gm/dl Hct 28.2 L D 27.5 L 29.0 L (35.5-45.6) % Plt Count 168 (140-440) K/mm3 Comprehensive Metabolic Panel 11/06/20 11/11/20 Range/Units Unknown 08:35 Sodium 139 (137-145) mmol/L Potassium 4.7 (3.6-5.0) mmol/L Chloride 107.4 H (98-107) mmol/L Carbon Dioxide 27 (22-30) mmol/L BUN 64 H (9-20) mg/dL Creatinine 2.1 H (0.8-1.3) mg/dL Glucose 148 H (75-100) mg/dL Calcium 6.7 L (8.4-10.2) mg/dL Albumin 2.2 L (3.8-4.8) g/dL - Imaging and Cardiology EKG: report reviewed, image reviewed Echo: report reviewed - EKG Sinus rhythms and dysrhythmias: sinus rhythm AV and intraventricular conduction: left bundle branch block Repolarization changes or abnormalities: nonspecific abnormality, ST segment, and/or T wave - Allied health notes Allied health notes reviewed: nursing
[2020-11-11] MEDS: PANTOPRAZOLE 40 MG INJ IV SCH ×2 (12:37→21:13)
[2020-11-11] MEDS: fentaNYL 100 MCG/2 ML INJ IV PRN (13:03)
[2020-11-11] MEDS ORDERED: HYDROmorphone 1 MG/1 ML INJ IV PRN (13:35)
--- NOTE | 2020-11-11 13:42 | Progress Note ---
Assessment and Plan 70 yo M s/p 1. reexploration of abdomen, appendectomy, small bowel anastamosis, POD1 2. exploratory laparotomy, small bowel resection, placement of abthera vac, 11/08/20 1. 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 Vent dependent respiratory failure 3. septic shock 4. MCA CVA 5. acute limb ischemia s/p right lower extremity revascularization and fasciotomies Plan: 1. neuro - dilaudid prn for pain control. Off sedation 2. CV - monitor BP. Off pressors. H/H much improved after 2Units PRBC and H/H remains stable - hepgtt was resumed. Vascular and cards on board 3. Resp - vent management per ICU team. Wean as per protocol 4. GI - strict NPO until having bowel function. DC IVF. GI ppx. On TPN. Will need NGT replaced or OGT placed and connected to LIRODNEY - d/w RN. Continue suppositories daily. 5. - knutson for strict I/Os 6. ID - abx per ID. 7. Endo - strict glucose control 8. Musc - SCDs. Frequent turning. 9. FEN - BMP daily and replace lytes as needed. TPN Thank you for this consultation. Please call with any questions or concerns. Evaluation and treatment of this patient was during the time of the national and state emergency arising from COVID19 coronavirus pandemic. Treatment and procedures performed meet the current and available best practice and guidelines for patient during the COVID pandemic. Subjective Date of service: 11/11/20 Narrative: Pt seen and examined. Extremely agitated this afternoon and pulled out NGT, abdominal EARNESTINE drain and portion of abdominal dressing. Afebrile. No n/v. No BM. Attempted to replace NGT x2 but positioning could not be confirmed with auscultation and patient very agitated. Objective Vital Signs - 12hr 11/11/20 11/11/20 11/11/20 02:00 02:30 03:00 Temperature Pulse Rate 81 69 74 Pulse Rate [ From Monitor] Respiratory 16 16 13 Rate Blood Pressure 124/73 125/79 115/66 O2 Sat by Pulse 98 Oximetry 11/11/20 11/11/20 11/11/20 03:31 04:00 04:21 Temperature 98.8 F Pulse Rate 69 72 74 Pulse Rate [ 61 From Monitor] Respiratory 12 14 Rate Blood Pressure 100/60 101/68 101/68 O2 Sat by Pulse 100 99 Oximetry 11/11/20 11/11/20 11/11/20 04:30 05:00 05:30 Temperature Pulse Rate 75 73 71 Pulse Rate [ From Monitor] Respiratory 13 14 13 Rate Blood Pressure 102/75 121/73 121/70 O2 Sat by Pulse Oximetry 11/11/20 11/11/20 11/11/20 06:00 06:30 07:00 Temperature 98.3 F Pulse Rate 75 77 73 Pulse Rate [ From Monitor] Respiratory 15 11 L 12 Rate Blood Pressure 132/76 126/72 114/66 O2 Sat by Pulse 100 100 100 Oximetry 11/11/20 11/11/20 11/11/20 07:27 07:30 08:00 Temperature Pulse Rate 74 74 75 Pulse Rate [ 75 From Monitor] Respiratory 12 9 L Rate Blood Pressure 137/76 137/76 136/78 O2 Sat by Pulse 100 99 100 Oximetry 11/11/20 11/11/20 11/11/20 08:09 08:30 09:00 Temperature Pulse Rate 72 73 78 Pulse Rate [ From Monitor] Respiratory 9 L 15 Rate Blood Pressure 130/74 139/80 O2 Sat by Pulse 99 99 Oximetry 11/11/20 11/11/20 11/11/20 09:30 10:00 10:30 Temperature Pulse Rate 73 71 72 Pulse Rate [ From Monitor] Respiratory 12 7 L 10 L Rate Blood Pressure 132/73 128/66 130/69 O2 Sat by Pulse 99 98 99 Oximetry 11/11/20 11/11/20 11/11/20 11:00 11:30 11:55 Temperature Pulse Rate 76 Pulse Rate [ From Monitor] Respiratory Rate Blood Pressure 135/73 132/73 132/73 O2 Sat by Pulse 98 97 99 Oximetry 11/11/20 11/11/20 11/11/20 11:58 12:00 12:30 Temperature 98.0 F Pulse Rate 71 Pulse Rate [ From Monitor] Respiratory Rate Blood Pressure 130/70 133/70 O2 Sat by Pulse 98 99 Oximetry 11/11/20 13:01 Temperature Pulse Rate 75 Pulse Rate [ From Monitor] Respiratory 11 L Rate Blood Pressure 95/51 O2 Sat by Pulse 93 Oximetry - General physical appearance Narrative Exam: Gen.: On vent, agitated. Opens eyes spontaneously. ENT: Trachea midline. No lymphadenopathy. No scleral icterus or conjunctival pallor. ETT present. CV: S1, S2 present Respiratory: No audible wheezes Abdomen: Soft, ND, mild TTP near midline incision. Incision is c/d/i. EARNESTINE drain completely out and in bed - serosang drainage in bulb. Site c/d/i. No rebound, rigidity, guarding Extremities: +Edema : knutson - Labs 11/11/20 09:14 11/11/20 08:35 Diabetes panel 11/06/20 11/11/20 Range/Units Unknown 08:35 Sodium 139 (137-145) mmol/L Potassium 4.7 (3.6-5.0) mmol/L Chloride 107.4 H (98-107) mmol/L Carbon Dioxide 27 (22-30) mmol/L BUN 64 H (9-20) mg/dL Creatinine 2.1 H (0.8-1.3) mg/dL Glucose 148 H (75-100) mg/dL Calcium 6.7 L (8.4-10.2) mg/dL Albumin 2.2 L (3.8-4.8) g/dL Calcium panel 11/06/20 11/11/20 11/11/20 Range/Units Unknown 08:35 08:35 Calcium 6.7 L (8.4-10.2) mg/dL Phosphorus 3.20 (2.5-4.5) mg/dL Albumin 2.2 L (3.8-4.8) g/dL Pituitary panel 11/11/20 Range/Units 08:35 Sodium 139 (137-145) mmol/L Potassium 4.7 (3.6-5.0) mmol/L Chloride 107.4 H (98-107) mmol/L Carbon Dioxide 27 (22-30) mmol/L BUN 64 H (9-20) mg/dL Creatinine 2.1 H (0.8-1.3) mg/dL Glucose 148 H (75-100) mg/dL Calcium 6.7 L (8.4-10.2) mg/dL Adrenal panel 11/06/20 11/11/20 Range/Units Unknown 08:35 Sodium 139 (137-145) mmol/L Potassium 4.7 (3.6-5.0) mmol/L Chloride 107.4 H (98-107) mmol/L Carbon Dioxide 27 (22-30) mmol/L BUN 64 H (9-20) mg/dL Creatinine 2.1 H (0.8-1.3) mg/dL Glucose 148 H (75-100) mg/dL Calcium 6.7 L (8.4-10.2) mg/dL Albumin 2.2 L (3.8-4.8) g/dL
--- NOTE | 2020-11-11 14:16 | XRay Report ---
ABDOMEN 1 VIEW(S) 11/11/2020 1:49 PM INDICATION: ngt. COMPARISON: Chest radiograph 11/10/2020 FINDINGS: The tip of the nasogastric tube projects over the gastric lumen in appropriate position. Partially visualized tip of venous catheter projected over the right atrium. Postsurgical changes are noted over the abdomen with retained skin daniel. Signer Name: Adam Wells MD Signed: 11/11/2020 2:12 PM Workstation Name: [id number]
--- NOTE | 2020-11-11 14:55 | Operative Report ---
DATE OF SURGERY: 11/10/2020 PREOPERATIVE DIAGNOSES: Open abdomen, pneumatosis intestinalis, mesenteric ischemia. POSTOPERATIVE DIAGNOSES: Open abdomen, pneumatosis intestinalis, mesenteric ischemia. FINDINGS: 1. All small and large bowel viable. 2. Well perfused anastomosis by ICG fluorescence imaging. IV FLUIDS: 400 mL PROCEDURES: Reexploration of abdomen, appendectomy, small bowel anastomosis, ICG fluorescence imaging. ANESTHESIA: GETA. SURGEON: Yisel Woodward DO [employer] SUPERVISOR: Ramos Llanes MD. ESTIMATED BLOOD LOSS: Minimal. PATHOLOGY: Appendix and small bowel anastomotic staple line. SPECIMEN DISPOSITION: To lab. CONDITION DISPOSITION: The patient stable to ICU. HISTORY OF PRESENT ILLNESS AND INDICATION: The patient is a 70-year-old male who presented to the hospital on 10/23/2020 with symptoms consistent with acute stroke. The patient was found to have an atrial appendage thrombus, and his hospital course was further complicated by right lower extremity arterial thrombus for which he underwent thrombectomy with 4-compartment fasciotomy. On 11/08/2020, the patient was noted to have increasing abdominal distention and emesis and a CT scan showed pneumatosis of the small intestine. The patient was taken emergently to the operating room for an exploratory laparotomy on 11/08/2020, found to have segmental infarcts of the distal small intestine with pneumatosis intestinalis. He underwent a small bowel resection and temporary abdominal closure with an ABThera VAC. It was planned to return to the operating room in 48 hours for a second look and perfusion assessment of the small bowel, small bowel anastomosis and closure of the abdomen. Consent was obtained from the patient's son after all questions were answered. PROCEDURE IN DETAIL: The patient was identified in his ICU room and brought down to the operating room, placed on the operating room table in supine position. After anesthesia was administered, the abdominal dressing was removed and the abdomen prepped and draped in the usual sterile fashion. The fascial sutures were cut and removed and the intra-abdominal blue sponge along with the plastic dressing were removed and discarded. First, we started by eviscerating the small bowel and finger fracturing loose adhesions between the bowel loops. The small bowel was run from the ligament of Treitz to the proximal stapled end and all of the bowel appeared grossly viable and pink. It was moderately distended and fluid filled. The distal staple line was identified, and the terminal ileum along with the colon examined. All examined structures appeared pink and viable. The stool in the distal colon was much softer today with less distention of the right colon. At this point, we proceeded with mobilizing the terminal ileum and cecum in order to perform a [id number] small bowel anastomosis. The lateral peritoneal adhesions from the terminal ileum and cecum were taken down in an avascular plane using a right angle clamp and electrocautery. Once the terminal ileum and cecum were mobilized, we performed a perfusion assessment of the bowel. 1.5 mL of ICG was injected intravenously by anesthesia followed by 10 mL saline flush. Using ICG fluorescence imaging, the bowel was examined and appeared well perfused to the staple lines. It was therefore decided to create a [id number] enteroenteric anastomosis. There was approximately 15 cm of terminal ileum remaining. The bowel was aligned along the antimesenteric border in an antiperistaltic fashion. A portion of the staple line was cut using curved Dickerson scissors and both terminal ileum/cecum and proximal small bowel decompressed using a Cunha suction inserted into the lumen. There was thick stool in the proximal and distal bowel. Once decompressed, a [id number] functional end-to-end enteroenteric anastomosis was created using a DEANN-75 mm blue load stapler. The common channel was checked for hemostasis, which was carefully ensured. The common channel was closed using a TA 60 blue load stapler. The staple line was checked for hemostasis, which was carefully ensured. This was then imbricated using 3-0 silk Lembert sutures. A crotch stitch was placed using a 3-0 silk seromuscular stitch at the end of the staple line. There was at least 3-4 cm of distal terminal ileum uninvolved with the anastomosis. The anastomosis was palpated and was patent. The mesenteric defect was closed using a running 2-0 silk stitch. The anastomosis was placed into normal anatomic position and laid without tension or twisting. Using ICG fluorescence, the anastomosis was examined and was very well perfused. At this point, the abdomen was irrigated until all of the irrigant returned clear. Hemostasis was very carefully ensured. The omentum was placed back over the small bowel and the NG tube palpated in the mid body of the stomach. A 19-Chinese Jose drain was placed into the abdomen, was positioned in the pelvis and along the right paracolic gutter and brought out through the left mid abdomen. This was sutured to the skin using a 3-0 nylon drain stitch. At this point, we decided to close the fascia. The fascia was closed in running fashion using looped #1 PDS x 2. The subcutaneous tissue was irrigated and hemostasis very carefully ensured. The skin was approximated using skin daniel. The abdomen was cleansed and dried and an island dressing was applied to the midline incision. A drain sponge was applied to the EARNESTINE drain and secured with a Tegaderm. At the end of the case, all sponge, instrument, sharp counts were correct x 2. The patient tolerated the procedure well and was taken back to the ICU in stable condition. TID: [id number] RECEIPT: [id number]/FABIANA MTDD
[2020-11-11 15:09] LABS: Hematocrit 25.8 % (35.5-45.6); Hemoglobin 8.7 gm/dl (11.8-15.2)
--- NOTE | 2020-11-11 15:09 | Progress Note ---
Assessment and Plan Cultures: Sputum culture 11/03/2020 upper respiratory mechelle Urine culture 11/04/2020 negative Blood culture 11/04/2020 no growth today Tracheal aspirate 11/04/2020 no growth today Assessment: 70-year-old male with history of hypertension, hypothyroidism, admitted on 10/23/2020 secondary to 2-day history of acute altered mental status with confusion and diminished cognition; noted to have a left MCA CVA and right leg acute thrombosis, now with worsening leukocytosis and on pressors: #Severe sepsis with septic shock: Not present on admission. Remains pressors but improving, leukocytosis is high 33K-->28.9K; etiology unclear ?UTI. Likely secondary to acute thrombus of the right lower extremity complicated with compartment syndrome +/- UTI. Chest x-ray without any obvious pneumonia. #UTI urinalysis with mild pyuria. #Acute CVA: MRI with acute infarction of the left MCA, repeat MRI with evolving changes. Neurology on board. #Acute right leg thromboses: Complicated with compartment syndrome s/p open thrombectomy of the right lower extremity and right lower extremity compartment syndrome fasciotomy on 11/02/2020. #STACEY: creat up. Renally adjust antibiotics. #Acute respiratory failure: Intubated overnight. Chest x-ray with pulmonary edema. Elevated BNP. CT chest shows small pericardial effusion, small bilateral pleural effusion, bilateral interstitial disease. SARS-CoV-2 PCR negative. #Cardiomyopathy: EF 35 to 40%. #Left atrial appendage thrombus: Patient was on heparin drip, currently on hold due to surgical wound bleeding #Anemia Recommendations: -Follow-up blood culture, urinalysis, respiratory cultures -No need to treat Neisha in the sputum -Continue cefepime IV renally adjusted D9, continue metronidazole. Plan 4 more days postop. -Remove Winkler catheter when possible Will follow. Suzan Campbell MD [facility] ([facility] O: [phone] F: [phone] Subjective Date of service: 11/11/20 Principal diagnosis: Ac hypoxemic resp failure; CVA; Acute limb ischemia; Acute encephalopathy Interval history: Afebrile, white count remains elevated at 17.4, this is improved however. Objective - Exam Narrative Exam: General appearance: Sedated, intubated, currently alert Eyes: anicteric sclerae, moist conjunctivae; no lid-lag HENT: Normocephalic, Atraumatic; normal external ears, nares open, endotracheal tube and NG tube in place Neck: supple, tracheal midline, no JVD Lungs: Coarse breath sound bilaterally CV: RRR no murmur Abdomen: Firm, distended Extremities: Marked right leg edema with fasciotomy wounds bleeding Skin: Right groin surgical wound with clots Psych: Sedated Neuro: Sedated, nares open Winkler in place - Constitutional Vitals: Vital Signs Temp Pulse Resp BP Pulse Ox 98.0 F 73 19 119/63 99 11/11/20 11:58 11/11/20 14:00 11/11/20 14:00 11/11/20 14:00 11/11/20 14:00 Temperature -Last 24 Hours Temperature 98.0 F Temperature 98.3 F Temperature 98.8 F Temperature 98.5 F Temperature 97.8 F Temperature 97.5 F Temperature 97.6 F Temperature 98.1 F - Labs CBC & Chem 7: 11/11/20 14:41 11/11/20 08:35 Labs: Abnormal lab results 11/06/20 11/08/20 11/10/20 Range/Units Unknown 11:15 11:50 WBC (4.5-11.0) K/mm3 RBC (3.65-5.03) M/mm3 Hgb (11.8-15.2) gm/dl Hct (35.5-45.6) % RDW (13.2-15.2) % Chloride (98-107) mmol/L BUN (9-20) mg/dL Creatinine (0.8-1.3) mg/dL Glucose (75-100) mg/dL POC Glucose 108 H (70-105) mg/dL Calcium (8.4-10.2) mg/dL Magnesium (1.7-2.3) mg/dL Serum Total Protein 4.1 L (6.1-8.1) g/dL Albumin 2.2 L (3.8-4.8) g/dL Oxhux-1-Cwlizlmle 0.5 H (0.2-0.3) g/dL Gamma Globulins 0.4 L (0.8-1.7) g/dL PEP Interpretation see below H Crossmatch See Detail 11/10/20 11/10/20 11/10/20 Range/Units 17:50 23:12 23:17 WBC (4.5-11.0) K/mm3 RBC (3.65-5.03) M/mm3 Hgb 9.5 L 9.1 L (11.8-15.2) gm/dl Hct 28.2 L D 27.5 L (35.5-45.6) % RDW (13.2-15.2) % Chloride (98-107) mmol/L BUN (9-20) mg/dL Creatinine (0.8-1.3) mg/dL Glucose (75-100) mg/dL POC Glucose 107 H (70-105) mg/dL Calcium (8.4-10.2) mg/dL Magnesium (1.7-2.3) mg/dL Serum Total Protein (6.1-8.1) g/dL Albumin (3.8-4.8) g/dL Lvcfv-1-Xnrckpvkj (0.2-0.3) g/dL Gamma Globulins (0.8-1.7) g/dL PEP Interpretation Crossmatch 11/11/20 11/11/20 11/11/20 Range/Units 05:16 05:30 08:35 WBC 17.4 H (4.5-11.0) K/mm3 RBC 3.17 L (3.65-5.03) M/mm3 Hgb 9.5 L (11.8-15.2) gm/dl Hct 29.0 L (35.5-45.6) % RDW 16.2 H (13.2-15.2) % Chloride 107.4 H (98-107) mmol/L BUN 64 H (9-20) mg/dL Creatinine 2.1 H (0.8-1.3) mg/dL Glucose 148 H (75-100) mg/dL POC Glucose 127 H (70-105) mg/dL Calcium 6.7 L (8.4-10.2) mg/dL Magnesium 3.90 H (1.7-2.3) mg/dL Serum Total Protein (6.1-8.1) g/dL Albumin (3.8-4.8) g/dL Fmzuu-8-Sollkkuzu (0.2-0.3) g/dL Gamma Globulins (0.8-1.7) g/dL PEP Interpretation Crossmatch 11/11/20 11/11/20 11/11/20 Range/Units 09:14 11:45 14:41 WBC (4.5-11.0) K/mm3 RBC (3.65-5.03) M/mm3 Hgb 9.2 L 8.7 L (11.8-15.2) gm/dl Hct 27.2 L 25.8 L (35.5-45.6) % RDW (13.2-15.2) % Chloride (98-107) mmol/L BUN (9-20) mg/dL Creatinine (0.8-1.3) mg/dL Glucose (75-100) mg/dL POC Glucose 139 H (70-105) mg/dL Calcium (8.4-10.2) mg/dL Magnesium (1.7-2.3) mg/dL Serum Total Protein (6.1-8.1) g/dL Albumin (3.8-4.8) g/dL Ormxu-8-Hlnwlxbwo (0.2-0.3) g/dL Gamma Globulins (0.8-1.7) g/dL PEP Interpretation Crossmatch
--- NOTE | 2020-11-11 15:28 | Event Note ---
I called Naz Summers at [phone] today and left a voicemail asking for a call back for updates. Also needed to inquire about scar at base of neck which we assume is from a thyroid surgery given hypothyroidism history.
[2020-11-11] MEDS ORDERED: TOTAL PARENTERAL NUTRITION 1,800 ML IV SCH (20:00)
[2020-11-11] MEDS: CEFEPIME/NS 2 GM/100 ML 2 GM/100 ML BAG IV SCH (21:12)
[2020-11-12] MEDS: metroNIDAZOLE/NS 500 MG/100 ML 500 MG/100 ML BAG IV SCH ×4 (01:04→17:58)
[2020-11-12] MEDS: INSULIN REGULAR, HUMAN 100 UNITS/1 ML SUB-Q SCH ×5 (03:11→23:16)
[2020-11-12 04:00] LABS: Hematocrit 24.3 % (35.5-45.6); Hemoglobin 8.1 gm/dl (11.8-15.2); Mean Corpuscular HGB Conc 34 % (32-34); Mean Corpuscular Volume 90 fl (84-94); Platelet Count 157 K/mm3 (140-440)
[2020-11-12 04:24] LABS: Calcium 6.7 mg/dL (8.4-10.2)
[2020-11-12] MEDS ORDERED: CALCIUM GLUCONATE 1,000 MG in SODIUM CHLORIDE 0.9% 100 ML IV ONE (04:31)
[2020-11-12] MEDS: LEVOTHYROXINE 100 MCG INJ IV SCH (05:03)
[2020-11-12] MEDS ORDERED: SODIUM PHOSPHATE 15 MMOL in SODIUM CHLORIDE 0.9% 250ML 250 ML IV ONE (05:14)
[2020-11-12] MEDS: fentaNYL DRIP Premix 2,000 MCG/100 ML BAG IV SCH (08:31)
--- NOTE | 2020-11-12 09:25 | Progress Note ---
Assessment and Plan Patient is resting in bed. Intubated and off sedation. Patient is somnolent but able to follow simple commands. Telemetry reviewed: Sinus rhythm 63 with paroxysmal V. tach. #Atrial Appendage Thrombus * KELLY reviewed (11/01/2020): Likely stock of thrombus in the left atrial appendage of heterogeneous quality. No evidence of valvulopathy. Mildly dilated left ventricle with mild LVH with moderate global LV hypokinesis. LVEF 40 to 45%. No pericardial effusion. Mild plaquing. Normal agitated saline study without evidence of intracardiac or intrapulmonary communication. * Currently anticoagulated on heparin drip. Repeat CBC in a.m. #Anemia * Light weeping from surgical sites. Continue to monitor labs. Management per primary team #Septic shock * Levophed has been titrated off since 10 PM last night. #Mesenteric infarct s/p laparoscopic bowel resection * Currently strict TPN/NPO orders per GI surgery, discontinue all p.o. medications and convert to IV meds as needed #Acute CVA x2 with residual R side weakness and aphasia. * MRI reviewed (10/23/2020): Acute CVA. * MRI reviewed (11/03/2020) new onset acute CVA. #Ischemic limb in setting of arterial thrombus and extensive DVT s/p revascularization sx * (11/02/2020) occlusive arterial thrombus and extensive DVT developed in right lower limb. Vascular surgery performed open revascularization with 4 compartment fasciotomy. #Cardiomyopathy * Echocardiogram reviewed (10/23/2020): LVEF is 35 to 40%. Left ventricle is moderately dilated. LV SF is mild to moderately decreased. Borderline concentric LVH. Left ventricle has diffuse moderate to severe hypokinesis of the inferior wall. RV SF is normal. Left atrium is mildly dilated. Right atrium is mildly dilated. Saline bubble contrast intravenous injection does not demonstrate PFO. RVSP is 23 mmHg. No valvular abnormalities. * In consideration of patient's mental status acuity and other comorbidities, we will plan for conservative cardiac management. Plan to optimize cardiac regimen once patient is able to resume p.o. medication. * Patient is having 20-25 beat runs of V. tach noted on telemetry. Still strictly NPO. Will initiate metoprolol 5 mg IV push every 6 hours #Left bundle branch block * Onset date is unknown. 12-lead reviewed no ST segment elevation. Troponins are negative x2. AMI ruled out. #DVT prophylaxis * SCDs in place. Currently on heparin drip Patient is currently guarded cardiac status. Will follow This patient was seen in conjunction with Dr Weeks who agrees with this assessment and plan of care. - Patient Problems (1) LBBB (left bundle branch block) Current Visit: Yes Status: Acute (2) Acute CVA (cerebrovascular accident) Current Visit: Yes Status: Acute (3) Cardiomyopathy Current Visit: Yes Status: Acute (4) Suspected 2019 novel coronavirus infection Current Visit: Yes Status: Acute (5) Hypothyroidism Current Visit: Yes Status: Acute (6) atrial appendage thrombus Current Visit: Yes Status: Acute (7) mesenteric ischemia Current Visit: Yes Status: Acute Subjective Date of service: 11/12/20 Principal diagnosis: Ac hypoxemic resp failure; CVA; Acute limb ischemia; Acute encephalopathy Interval history: Patient is resting in bed. Intubated and off sedation. Patient is somnolent but able to follow simple commands. Telemetry reviewed: Sinus rhythm 63 with paroxysmal V. tach. Objective Last Vital Signs Temp 97.9 F 11/12/20 07:25 Pulse 63 11/12/20 09:00 Resp 12 11/12/20 09:00 BP 130/67 11/12/20 09:00 Pulse Ox 100 11/12/20 09:00 - Physical Examination General: Other HEENT: Positive: Normocephaly, Mucus Membranes Moist Neck: Positive: neck supple, trachea midline. Negative: JVD/HJR Neuro: Positive: Other (Intubated and sedated) Abdomen: Positive: Soft Skin: Negative: Rash, Wound Incision: Cardiac Cath Site Musculoskeletal: No Fluid Collection Extremities: Present: upper extr. pulses, lower extr. pulses, edema, Other (s/p RLE open thrombectomy with four-quadrant fasciotomy) - Labs and Meds CBC 11/11/20 11/11/20 11/12/20 Range/Units 09:14 14:41 03:38 WBC 15.2 H (4.5-11.0) K/mm3 RBC 2.70 L (3.65-5.03) M/mm3 Hgb 9.2 L 8.7 L 8.1 L (11.8-15.2) gm/dl Hct 27.2 L 25.8 L 24.3 L (35.5-45.6) % Plt Count 157 (140-440) K/mm3 Comprehensive Metabolic Panel 11/12/20 Range/Units 03:38 Sodium 139 (137-145) mmol/L Potassium 4.2 (3.6-5.0) mmol/L Chloride 109.8 H (98-107) mmol/L Carbon Dioxide 23 (22-30) mmol/L BUN 64 H (9-20) mg/dL Creatinine 2.0 H (0.8-1.3) mg/dL Glucose 129 H (75-100) mg/dL Calcium 6.7 L (8.4-10.2) mg/dL - Imaging and Cardiology EKG: report reviewed, image reviewed Echo: report reviewed - Telemetry EKG Rhythm: Sinus Rhythm - EKG Sinus rhythms and dysrhythmias: sinus rhythm AV and intraventricular conduction: left bundle branch block Repolarization changes or abnormalities: nonspecific abnormality, ST segment, and/or T wave - Allied health notes Allied health notes reviewed: nursing
[2020-11-12] MEDS: PANTOPRAZOLE 40 MG INJ IV SCH ×2 (09:28→21:29)
--- NOTE | 2020-11-12 10:10 | Progress Note ---
Assessment and Plan 1. Acute kidney injury: Vasomotor STACEY in the setting of shock. Renal US negative for hydro. Monitor renal function. Renal prognosis is guarded. Creatinine level is improving. Avoid nephrotoxic agents. Meds dosage based on GFR. 2. FEN: Hyperkalemia, improved, monitor. Hyperchloremia, monitor. Monitor lytes and volume status. 3. Severe sepsis with shock: Etiology unclear, rule out bacteremia, UTI, pneumonia and other nosocomial infections. On Levophed. Followed by ID. 4. 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 Seen by Neurology. 5. Acute hypoxemic respiratory failure: Intubated, on vent. 6. Acute on chronic systolic heart failure: EF 40-45%. Followed by Cards. 7. 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 8. Acute R LE ischemia: S/p thrombectomy. 9. Mild pneumatosis of ascending colon: Bowel ischemia. S/p Ex-lap and small bowel resection 11/08. S/p reexploration of abdomen, appendectomy, small bowel anastamosis 11/10. Followed by General surgery. 10. Normochromic anemia: Monitor. Subjective: Patient was not examined today. However the examination findings from other providers noted. The current and previous medical records are reviewed in detail as are laboratory and imaging data reviewed when appropriate. Medications being given are also reviewed. In addition the case has been discussed with the attending hospitalist and the nurse when needed. New renal recommendations as above. Subjective Date of service: 11/12/20 Principal diagnosis: Ac hypoxemic resp failure; CVA; Acute limb ischemia; Acute encephalopathy Objective - Vital Signs Vital signs: Vital Signs - 12hr 11/11/20 11/11/20 11/11/20 22:30 23:00 23:04 Temperature Pulse Rate 65 66 65 Pulse Rate [ From Monitor] Respiratory 15 15 16 Rate Blood Pressure 118/66 122/66 122/66 O2 Sat by Pulse 100 100 100 Oximetry 11/11/20 11/11/20 11/12/20 23:13 23:30 00:00 Temperature 98.8 F Pulse Rate 64 65 Pulse Rate [ 63 From Monitor] Respiratory 13 14 Rate Blood Pressure 122/66 122/64 O2 Sat by Pulse 100 100 Oximetry 11/12/20 11/12/20 11/12/20 00:30 00:48 01:00 Temperature Pulse Rate 68 75 77 Pulse Rate [ From Monitor] Respiratory 15 29 H Rate Blood Pressure 122/64 122/64 110/74 O2 Sat by Pulse 100 100 100 Oximetry 11/12/20 11/12/20 11/12/20 01:30 02:00 02:30 Temperature Pulse Rate 67 64 63 Pulse Rate [ From Monitor] Respiratory 14 12 13 Rate Blood Pressure 127/65 122/65 124/64 O2 Sat by Pulse 100 100 100 Oximetry 11/12/20 11/12/20 11/12/20 03:00 03:05 03:25 Temperature 99 F Pulse Rate 64 65 Pulse Rate [ From Monitor] Respiratory 17 Rate Blood Pressure 127/64 127/64 O2 Sat by Pulse 100 100 Oximetry 11/12/20 11/12/20 11/12/20 03:30 04:00 04:30 Temperature Pulse Rate 65 64 63 Pulse Rate [ 63 From Monitor] Respiratory 8 L 14 12 Rate Blood Pressure 127/67 126/67 125/65 O2 Sat by Pulse 100 100 100 Oximetry 11/12/20 11/12/20 11/12/20 05:00 05:30 06:00 Temperature Pulse Rate 67 64 62 Pulse Rate [ From Monitor] Respiratory 16 13 12 Rate Blood Pressure 127/72 129/71 131/67 O2 Sat by Pulse 100 100 100 Oximetry 11/12/20 11/12/20 11/12/20 06:30 07:00 07:25 Temperature 97.9 F Pulse Rate 61 62 Pulse Rate [ From Monitor] Respiratory 13 13 Rate Blood Pressure 128/67 130/67 O2 Sat by Pulse 100 100 Oximetry 11/12/20 11/12/20 11/12/20 07:26 07:30 08:00 Temperature Pulse Rate 61 77 63 Pulse Rate [ 64 From Monitor] Respiratory 16 13 Rate Blood Pressure 130/67 115/69 125/67 O2 Sat by Pulse 100 100 100 Oximetry 11/12/20 11/12/20 11/12/20 08:30 09:00 09:30 Temperature Pulse Rate 62 63 64 Pulse Rate [ From Monitor] Respiratory 14 12 16 Rate Blood Pressure 129/70 130/67 120/70 O2 Sat by Pulse 100 100 100 Oximetry 11/12/20 10:00 Temperature Pulse Rate 69 Pulse Rate [ From Monitor] Respiratory 13 Rate Blood Pressure 132/73 O2 Sat by Pulse 100 Oximetry - Lab 11/12/20 03:38 11/12/20 03:38 Most recent lab results ABG pH 7.352 (7.320-7.450) 11/11/20 10:10 ABG O2 Saturation 97.3 (0-100) 11/11/20 10:10 Calcium 6.7 mg/dL (8.4-10.2) L 11/12/20 03:38 Phosphorus 2.10 mg/dL (2.5-4.5) L D 11/12/20 03:38 Magnesium 3.50 mg/dL (1.7-2.3) H 11/12/20 03:38 Urine Creatinine < 4.2 mg/dL (0.1-20.0) 11/04/20 12:50 Urine Sodium 10 mmol/L 11/04/20 12:50 Medications & Allergies - Medications Allergies/Adverse Reactions: Allergies No Known Allergies Allergy (Unverified 10/23/20 12:44) Home Medications: Home Medications Medication Instructions Recorded Confirmed Last Taken Type Levothyroxine Sodium 150 mcg PO DAILY 10/31/20 10/31/20 Unknown History [Levothyroxine] carvediloL [Coreg] 6.25 mg PO BID 10/31/20 10/31/20 Unknown History lisinopriL [Lisinopril] 10 mg PO DAILY 10/31/20 10/31/20 Unknown History Active Medications: Generic Name Dose Route Start Last Admin Trade Name Freq PRN Reason Stop Dose Admin Bisacodyl 10 mg 11/08/20 22:00 11/12/20 09:27 Bisacodyl 10 Mg Rect Supp MA 10 mg BID ALEX Administration Dextrose 50 ml 11/08/20 08:04 Dextrose 50% In Water (25gm) 50 Ml Syringe IV Q30MIN PRN Hypoglycemia Protocol Fentanyl 50 mcg 11/03/20 16:46 11/11/20 13:03 Fentanyl 100 Mcg/2 Ml Inj IV 50 mcg Q10MIN PRN Administration ANALGESIA Hydromorphone HCl 1 mg 11/11/20 13:35 Hydromorphone 1 Mg/1 Ml Inj IV Q4H PRN Pain , Severe (7-10) Hydrophilic Ointment 1 applic 11/03/20 16:46 Lip Therapy Vaseline TP Q2HR PRN Dry Lips Fentanyl Citrate 2,000 mcg in 100 mls @ 4.86 mls/hr 11/03/20 17:24 11/12/20 08:31 Fentanyl Drip Premix IV 1 mcg/kg/hr TITR ALEX 4.86 mls/hr Administration Protocol 1 MCG/KG/HR NORepinephrine/NS 8 MG-250 ML 8 mg in 250 mls @ 3.75 mls/hr 11/03/20 18:00 11/11/20 12:20 Norepinephrine/Ns 8 Mg-250 Ml (Double Conc) IV 0 mcg/min TITRATE ALEX 0 mls/hr Titration Protocol 2 MCG/MIN Cefepime HCl 2 gm in 100 mls @ 200 mls/hr 11/08/20 22:00 11/11/20 21:12 Cefepime/Ns 2 Gm/100 Ml IV 11/14/20 22:29 200 mls/hr Q24H ALEX Administration Protocol Propofol 1,000 mg in 100 mls @ 3.126 mls/hr 11/08/20 17:00 11/11/20 04:00 Diprivan 10 Mg/Ml IV 0 mcg/kg/min TITR ALEX 0 mls/hr Titration Protocol 5 MCG/KG/MIN Metronidazole 500 mg in 100 mls @ 100 mls/hr 11/08/20 17:00 11/12/20 08:47 Flagyl 500 Mg/100 Ml IV 11/14/20 17:59 100 mls/hr Q8H ALEX Administration Protocol Heparin Sodium/Sodium Chloride 25,000 unit in 500 mls @ 30 mls/hr 11/09/20 13:00 11/12/20 01:43 Heparin/ 0.45% Nacl-25,000 Unit/500 Ml IV 1,100 units/hr TITR ALEX 22 mls/hr Titration Protocol 1,500 UNITS/HR Amino Acids/Electrolytes/Dextrose 1,800 mls @ 75 mls/hr 11/11/20 20:00 11/11/20 20:16 Tpn Adult IV 11/12/20 19:59 75 mls/hr DAILY@[email or web address] [facility] Administration Protocol Amino Acids/Electrolytes/Dextrose 1,800 mls @ 75 mls/hr 11/12/20 20:00 Tpn Adult IV 11/13/20 19:59 DAILY@[email or web address] [facility] Protocol Fat Emulsion Intravenous 250 mls @ 21 mls/hr 11/12/20 20:00 Intralipid 20% IV 11/13/20 08:00 DAILY@[email or web address] [facility] Insulin Human Regular 0 units 11/12/20 12:00 Insulin Regular, Human 100 Units/1 Ml SUB-Q Q6HR [facility] Protocol Levothyroxine Sodium 75 mcg 11/09/20 06:00 11/12/20 05:03 Levothyroxine 100 Mcg Inj IV 75 mcg DAILY@0600 [facility] Administration Multi-Ingred Cream/Lotion/Oil/Oint 1 applic 11/03/20 16:46 Mineral Oil/Petrolatum, White Ophth Oint 3.5 Gm OU Q4HR PRN Dry Eye(s) Ondansetron HCl 4 mg 10/23/20 20:00 11/07/20 23:09 Ondansetron 4 Mg/2 Ml Inj IV 4 mg Q8H PRN Administration Nausea And Vomiting Pantoprazole Sodium 40 mg 11/07/20 22:00 11/12/20 09:28 Pantoprazole 40 Mg Inj IV 40 mg BID ALEX Administration Sodium Chloride 10 ml 10/23/20 20:00 11/08/20 21:24 Sodium Chloride 0.9% 10 Ml Flush Syringe IV 10 ml PRN PRN Administration LINE FLUSH
--- NOTE | 2020-11-12 11:23 | Progress Note ---
Assessment and Plan Assessment and plan: This is a 70-year-old male with hypertension and hypothyroidism who was admitted with a CVA (neurology consulted, stroke pathway initiated),CHF, bilateral pneumonia, COVID 19 PUI and acute hypoxic respiratory failure. 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 Acute hypoxic respiratory failure Acute on chronic systolic heart failure with exacerbation Pneumonia Urinary tract infection Acute kidney injury Left atrial appendage thrombus Anemia s/p 5 units PRBC transfusion Hyperchloremia Hyperphosphatemia Hypermagnesemia Leukocytosis Cardiomyopathy Left bundle branch block Hypertension Hypothyroidism -CCM, cardiology, neurology, vascular surgery, nephrology,general surgery, infectious disease, hematology/oncology, GI, surgery, WOCN, ST/PT/OT consulted, appreciate recommendations -10/23 CT head shows no acute findings, periventricular areas of low attenuation suggestive of nonspecific white matter change, concern for acute ischemic change -10/23 CTA chest shows findings suggestive of mild congestive failure, negative for pulmonary embolism -10/23 CT head with contrast shows no indication of intracranial stenosis or large vessel occlusion -10/23 CTA neck shows no indication of hemodynamically significant stenosis the carotid bifurcations are also clear, right larger than left pleural effusion, remote ACDF at C5-C6 and C6-C7 levels, multifocal neuroforaminal narrowing, mild central canal stenosis evident at C5-C6 level -10/23 bilateral carotid ultrasound shows no significant stenosis -10/23 echocardiogram shows left ventricle moderately dilated, borderline concentric left ventricular hypertrophy, impaired LV relaxation, moderate left ventricular diastolic dysfunction, left ventricular end-diastolic pressure is moderately elevated, no left ventricle thrombus noted in the study, mildly dilated right ventricle, mildly dilated left atrium, saline bubble contrast intravenous injection does not demonstrate PFO, the ventricle systolic function is mild to moderately decreased, LVEF is 35 to 40% with hypokinesis of the septal and inferior wall, moderate to severe hypokinesis in the inferior wall, moderate hypokinesis of the mid inferior septal wall, moderate hypokinesis of the apical septal wall, trace TR, RVSP is 23 mmHg. -10/25 MRI Brain shows acute infarction in the left middle cerebral artery without hemorrhagic conversion -11/02 bilateral lower extremity Doppler ultrasound shows occlusive thrombus in the peroneal vein -11/02 s/p right lower extremity emergent embolectomy with right 4 compartment fasciotomy with vascular surgery -11/03 MRI brain shows interval evolutionary changes of the patchy areas of infarction along the left trigonal region, development of 7 mm focus of acute infarction involving more superior left frontoparietal junction -11/04 abdominal x-ray shows persistent abdominal distention -11/04 renal ultrasound shows findings of medical renal disease without other significant sonographic abnormality -11/05 abdominal x-ray shows increasing bowel distention appears to be predominantly in the colon, moderate/large chronic stool with no free air -11/05 CT head shows decreased attenuation along the superior parietal lobe compatible with evolving infarction without intracranial hemorrhage or other acute abnormality/interval changes -11/07 abdominal x-ray shows abundant fecal material noted throughout the colon and rectal vault consistent with history of constipation which are minimally improved when compared to 11/05, gas-filled and distended bowel loops are similar to prior exam -11/07 CT head shows evolving infarcts involving the left temporoparietal to the left frontoparietal lobes since 11/05 -11/08 abdomen/pelvis CT shows mild diffuse dilation of small bowel loops and proximal colon with evidence of pneumatosis concerning for ischemic bowel, small ascites but no evidence of free air or fluid collection, diffuse ileus also suspected, mild cardiomegaly with trace pericardial effusion, few tiny gallstones in the gallbladder with out abnormal dilation or wall thickening. -11/08 s/p exploratory laparotomy, small bowel resection; intaop findings: 1. Segmental infarcts of distal small intestine with pneumatosis intestinalis present - approximately 30 cm of small bowel resected, 2. SMA with strongly palpable pulse., 3. Large stool burden in left colon -11/10 Limited echocardiogram shows left ventricular systolic function moderately decreased, LVEF 35 to 40%, mild concentric LVH, trace pericardial effusion adjacent to the right ventricle, pulmonary valve is normal in structure, tric uspid valve is normal in structure -11/10 s/p reexploration of abdomen, appendectomy, small bowel anastomosis and surgeon found all viable small and large bowel with well-perfused anastomosis by ICG fluorescence imaging. EARNESTINE drain was placed. -IV antibiotics -Vasopressor support with Levophed -Aspirin 325, Lipitor, BB (on hold per surgery as pt is strict NPO) -Mechanical ventilation, wean as tolerated, VAP bundle -HIT panel negative -SSI -IV antibiotics -Continue home Synthroid, converted to IV -Hold antihypertensive regimen in setting of hypotension and the use of vasopressors -Fentanyl gtt -Transfuse for hbg <7 -TPN -Duculox suppository -Trend CBC, BMP DVT/GI prophylaxis: SCDs to bilateral extremities while in bed, Protonix, heparin gtt Disposition: ICU The high probability of a clinically significant, sudden or life threatening deterioration of the [cardiac, respiratory and hemodynamic] system(s) required my full and direct attention, intervention and personal management. The [facility] critical care time was [32] minutes. This time is in addition to time spent performing reported procedures but includes the following: [x] Data Review and interpretation [x] Patient assessment and monitoring of vital signs [x] Documentation [x] Medication orders and management History Interval history: This is a 70-year-old male with hypertension and hypothyroidism who presented to the emergency department on 10/23 with confusion, weakness, exercise intolerance, shortness of breath on exertion, increased bedbound status and decreased oral i ntake with progressively worsened over the past 2 days prior to presentation. Patient was found to have clinical symptoms consistent with a CVA (neurology consulted, stroke pathway initiated) CHF, bilateral pneumonia, and acute hypoxic respiratory failure. Patient was initiated coronavirus, pneumonia and CHF protocol. Cardiology was consulted in the emergency department. 10/24/2020: Acute CVA with right hemiparesis , PT and OT 10/25/2020: Acute CVA with right hemiplegia, Rehab consult requested, Ejection fraction is 35 to 40% 10/26/2020:patient with acute CVA and right-sided hemiparesis, PT evaluated the patient and recommended acute rehab, Case management processing the request, Possible discharge in 1 to 2 days if stable 10/27/2020: patient is clinically stable, awaiting rehab/SNF placement. DC planning per Case management., Neuro recommend KELLY[possible embolic CVA] follow KELLY 10/28/20: patient is doing slightly better. No new complain. Clinically stable, Patient is going for KELLY today., DC planning to rehab/SNF when cleared by neurology., DC planning per case management 10/29/20: patient is doing slightly better. No new complain. Clinically stable, continue physical therapy occupational therapy, Patient is going for KELLY on Sunday, DC planning to rehab/SNF after KELLY on Sunday, DC planning per case management 10/30/20: patient is sitting in chair. No new complain. Clinically stable, continue physical therapy occupational therapy, Patient is going for KELLY on Sunday, Awaiting DC planning to rehab/SNF after KELLY on Sunday. 10/31/20: patient is seen and examined. No new complain. Clinically stable, continue physical therapy occupational therapy., Patient is going for KELLY on Sunday., Awaiting DC planning to rehab/SNF after KELLY on Sunday. 11/01/20: Patient is seen and examined, Patient with acute CVA and right-sided hemiparesis. Patient is evaluated by PT and recommended acute rehab Patient is going for KELLY today, Patient is waiting for DC planning to rehab/SNF after KELLY. 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 Patient has chosen [facility] and awaiting authorization. 11/02/2020. KELLY revealed left atrial appendage thrombus. Mildly dilated left ventricle with mild left ventricular hypertrophy with moderate global left ventricular hypokinesis with EF of 40 to 45%. Anticoagulation per cardiology recommendations. Physical therapy recommendations for acute rehab. 11/03/2020. Patient appears to have worsening aphasia and worsening right-sided weakness today per neurology. MRI brain stat. Leukocytosis likely leukemoid reaction from compartment syndrome. Patient is s/p right lower extremity thombectomy with 4 compartment fasciotomy yesterday. Bleeding from incisions over night. Consider ID consultation. Start empiric antibiotics. 11/04/2020. Patient decompensated yesterday evening with hypotension and worsening mental status. Patient was started on vasopressors and intubated. Patient is currently intubated and on fentanyl for sedation. Patient with worsening leukocytosis. Lactic acidosis likely secondary to compartment syndrome. Patient is s/p right lower extremity thombectomy with 4 compartment fasciotomy on 11/02/2020. Levaquin started empirically yesterday. ID consultation today. Patient also with worsening creatinine secondary to acute kidney injury. 11/05/2020. Patient attempted to pull out his ETT while I was examining him. Continue restraints for safety. Patient did manage to pull out his Winkler catheter and now has hematuria. We will irrigate the bladder and monitor closely patient is on anticoagulation with IV heparin. Continue Levophed drip to maintain MAP >65. Patient currently with mechanical ventilation AC mode rate of 12, tidal volume 500, FiO2 30% and a PEEP of 6. Continue fentanyl for sedation. Consult hematology hypercoagulable state given the arterial and venous thrombi. 11/06/2020. Hematology ordered argatroban and steroid pulse therapy. Follow work-up to rule out HIT. Follow-up pF4 Ab testing, Hgb electrophoresis, cardiolipin ab. Continue Levophed drip to maintain MAP >65. Patient currently with mechanical ventilation AC mode rate of 12, tidal volume 500, FiO2 30% and a PEEP of 6. Continue fentanyl for sedation. Continue antibiotics of cefepime and vancomycin. Sputum, blood and urine cultures are negative. Continue restraints for safety. 11/07/2020. Continue steroid pulse therapy per hematology recommendations. Argatroban on hold for GI bleeding and hematuria. Follow-up HIT panel and pF4 Ab testing, Hgb electrophoresis, cardiolipin ab. Continue Levophed drip to maintain MAP >65. Patient currently with mechanical ventilation AC mode rate of 12, tidal volume 500, FiO2 30% and a PEEP of 6. Continue fentanyl for sedation. Continue antibiotics of cefepime and vancomycin. Sputum, blood and urine cultures are negative. Continue restraints for safety. 11/08: CT abd/pelvis obtained today is concerning for ischemic bowels, surgery was consulted. This morning patient was on CPAP trial 03/30 at the time my examination patient is on vasopressor support with Levophed and his HIT panel is pending. He was sedated on 1 mcg of fentanyl. Lab work this morning shows leukocytosis, anemia (transfuse 1 unit PRBC), hyperkalemia (received D50 and insulin), hypochloremia and increasing BUN/creatinine. 11/09: S/p ex lap and small bowel resection on 11/08 with surgery, patient was restarted argatroban drip per surgery, HIT panel negative. CCM will start on low-dose heparin drip. Patient was given 2 g of calcium for his K 5 by nephrology. Surgery plans to return to the OR tomorrow for reexploration with possible anastomosis and abdominal closure. At the time of my examination he is sedated on propofol, fentanyl and vasopressor support with Levophed. Patient is on assist control tidal volume 500, rate 18, PEEP of 6, FiO2 25%. 11/10: Patient noted to be anemic today, PRBC transfusion ordered. Patient has 2 units ready for OR, per RN hem/onc is requesting 2 units of PRBC to be transfused. Will obtain post transfusion h/h. Planned for OR today. At the time of my examination he is sedated on propofol, fentanyl and vasopressor support with Levophed. Patient is on assist control tidal volume 500, rate 12, PEEP of 6, FiO2 25%. Pericardial effusion noted as incidental finding with imaging and cardio will conduct a limited echo to quantify amount. 11/11: Patient was taken to the OR for reexploration of abdomen, appendectomy, small bowel anastomosis and surgeon found all viable small and large bowel with well-perfused anastomosis by ICG fluorescence imaging yesterday and a EARNESTINE drain was placed. AM BMP pending, CBC stable. Patient still continues to ooze at fasciotomy site and MLA dressing. RN to change dressings. Sedated with fentanyl and on levophed (RN to attempt to titrate off as tolerated) and on AC TV 500,R12,Peep 6 and 25%FiO2. Remains on heparin gtt. CPAP trial today and LA will be obtained 11/12: Leukocytosis and kidney function tests continue to improve. Patient remains on TPN with NG tube to wall suction. Overnight the patient was agitated and removed NG tube and EARNESTINE drain, NG tube replaced. RN reported patient had a bowel movement late this morning. Patient remains on ventilator support but is on a CPAP trial at time of examination. [facility] plans to extubate today. Hospitalist Physical - Constitutional Vitals: Temp Pulse Resp BP Pulse Ox 97.9 F 75 20 141/69 98 11/12/20 07:25 11/12/20 11:00 11/12/20 11:00 11/12/20 11:00 11/12/20 11:00 General appearance: Present: no acute distress, other (Intubated, sedated) - EENT Eyes: Present: PERRL, EOM intact ENT: poor dentition - Neck Neck: Absent: masses or JVD, cervical LAD - Respiratory Respiratory effort: normal Respiratory: bilateral: diminished - Cardiovascular Rhythm: regular Heart Sounds: Present: S1 & S2. Absent: systolic murmur, diastolic murmur - Extremities Extremities: no ischemia, pulses intact, pulses symmetrical, normal temperature, normal color Extremity abnormal: edema Peripheral Pulses: within normal limits - Abdominal General gastrointestinal: soft (firm/soft), absent bowel sounds - Integumentary Integumentary: Present: warm, dry - Psychiatric Psychiatric: agitated - Neurologic Neurologic: CNII-XII intact - Allied Health Allied health notes reviewed: nursing, RT HEART Score - HEART Score Troponin: Troponin T 0.026 ng/mL (0.00-0.029) 10/23/20 16:39 Results - Labs CBC & Chem 7: 11/12/20 03:38 11/12/20 03:38 Labs: Laboratory Last Values WBC 15.2 K/mm3 (4.5-11.0) H 11/12/20 03:38 RBC 2.70 M/mm3 (3.65-5.03) L 11/12/20 03:38 Hgb 8.1 gm/dl (11.8-15.2) L 11/12/20 03:38 Hct 24.3 % (35.5-45.6) L 11/12/20 03:38 MCV 90 fl (84-94) 11/12/20 03:38 MCH 30 pg (28-32) 11/12/20 03:38 MCHC 34 % (32-34) 11/12/20 03:38 RDW 16.0 % (13.2-15.2) H 11/12/20 03:38 Plt Count 157 K/mm3 (140-440) 11/12/20 03:38 Lymph % (Auto) 27.8 % (13.4-35.0) 10/23/20 13:32 [place] % (Auto) 6.0 % (0.0-7.3) 10/23/20 13:32 Eos % (Auto) 1.6 % (0.0-4.3) 10/23/20 13:32 Baso % (Auto) 0.7 % (0.0-1.8) 10/23/20 13:32 Lymph # (Auto) 1.5 K/mm3 (1.2-5.4) 10/23/20 13:32 [place] # (Auto) 0.3 K/mm3 (0.0-0.8) 10/23/20 13:32 Eos # (Auto) 0.1 K/mm3 (0.0-0.4) 10/23/20 13:32 Baso # (Auto) 0.0 K/mm3 (0.0-0.1) 10/23/20 13:32 Add Manual Diff Complete 11/09/20 03:21 Total Counted 100 11/09/20 03:21 Seg Neutrophils % Smelter Liner 11/09/20 03:21 Seg Neuts % (Manual) 89.0 % (40.0-70.0) H 11/09/20 03:21 Lymphocytes % (Manual) 6.0 % (13.4-35.0) L 11/09/20 03:21 Monocytes % (Manual) 5.0 % (0.0-7.3) 11/09/20 03:21 Metamyelocytes % 1.0 % 11/04/20 04:00 Nucleated RBC % Not Reportable 11/09/20 03:21 Seg Neutrophils # 3.4 K/mm3 (1.8-7.7) 10/23/20 13:32 Seg Neutrophils # Man 16.9 K/mm3 (1.8-7.7) H 11/09/20 03:21 Band Neutrophils # 0.0 K/mm3 11/09/20 03:21 Lymphocytes # (Manual) 1.1 K/mm3 (1.2-5.4) L 11/09/20 03:21 Abs React Lymphs (Man) 0.0 K/mm3 11/09/20 03:21 Monocytes # (Manual) 1.0 K/mm3 (0.0-0.8) H 11/09/20 03:21 Eosinophils # (Manual) 0.0 K/mm3 (0.0-0.4) 11/09/20 03:21 Basophils # (Manual) 0.0 K/mm3 (0.0-0.1) 11/09/20 03:21 Metamyelocytes # 0.0 K/mm3 11/09/20 03:21 Myelocytes # 0.0 K/mm3 11/09/20 03:21 Promyelocytes # 0.0 K/mm3 11/09/20 03:21 Blast Cells # 0.0 K/mm3 11/09/20 03:21 WBC Morphology Not Reportable 11/09/20 03:21 Hypersegmented Neuts Not Reportable 11/09/20 03:21 Hyposegmented Neuts Not Reportable 11/09/20 03:21 Hypogranular Neuts Not Reportable 11/09/20 03:21 Smudge Cells Not Reportable 11/09/20 03:21 Toxic Granulation Not Reportable 11/09/20 03:21 Toxic Vacuolation Not Reportable 11/09/20 03:21 Dohle Bodies Not Reportable 11/09/20 03:21 Pelger-Huet Anomaly Not Reportable 11/09/20 03:21 Demario Rods Not Reportable 11/09/20 03:21 Platelet Estimate Consistent w auto 11/09/20 03:21 Clumped Platelets Not Reportable 11/09/20 03:21 Plt Clumps, EDTA Not Reportable 11/09/20 03:21 Large Platelets Not Reportable 11/09/20 03:21 Giant Platelets Not Reportable 11/09/20 03:21 Platelet Satelliting Not Reportable 11/09/20 03:21 Plt Morphology Comment Not Reportable 11/09/20 03:21 RBC Morphology Not Reportable 11/09/20 03:21 Dimorphic RBCs Not Reportable 11/09/20 03:21 Polychromasia Not Reportable 11/09/20 03:21 Hypochromasia 1+ 11/09/20 03:21 Poikilocytosis Not Reportable 11/09/20 03:21 Anisocytosis 1+ 11/09/20 03:21 Microcytosis Not Reportable 11/09/20 03:21 Macrocytosis Not Reportable 11/09/20 03:21 Spherocytes Not Reportable 11/09/20 03:21 Pappenheimer Bodies Not Reportable 11/09/20 03:21 Sickle Cells Not Reportable 11/09/20 03:21 Target Cells Not Reportable 11/09/20 03:21 Tear Drop Cells Not Reportable 11/09/20 03:21 Ovalocytes Not Reportable 11/09/20 03:21 Helmet Cells Not Reportable 11/09/20 03:21 [place] Bodies Not Reportable 11/09/20 03:21 [place] Rings Not Reportable 11/09/20 03:21 Caryn Cells Not Reportable 11/09/20 03:21 Bite Cells Not Reportable 11/09/20 03:21 Crenated Cell Not Reportable 11/09/20 03:21 Elliptocytes Not Reportable 11/09/20 03:21 Acanthocytes (Spur) Not Reportable 11/09/20 03:21 Rouleaux Not Reportable 05/18/21 03:21 Hemoglobin C Crystals Not Reportable 11/09/20 03:21 Schistocytes Not Reportable 11/09/20 03:21 Malaria parasites Not Reportable 11/09/20 03:21 Lico Bodies Not Reportable 11/09/20 03:21 Hem Pathologist Commnt No 11/09/20 03:21 PT 16.2 Sec. (12.2-14.9) H 11/02/20 19:55 INR 1.30 (0.87-1.13) H 11/02/20 19:55 APTT 50.8 Sec. (24.2-36.6) H 11/09/20 03:21 D-Dimer 4139.61 ng/mlDDU (0-234) H 10/23/20 18:23 Heparin Anti-Xa Level 0.39 U.I./ml (0.3-0.7) 11/12/20 07:44 Heparin Anti-Xa, Unfract Negative (Negative) 11/06/20 Unknown ABG pH 7.352 (7.320-7.450) 11/11/20 10:10 POC ABG pCO2 42.7 mmHg (32.0-48.0) 11/11/20 10:10 POC ABG pO2 97.3 mmHg (83-108) 11/11/20 10:10 POC ABG HCO3 23.2 11/11/20 10:10 ABG O2 Saturation 97.3 (0-100) 11/11/20 10:10 POC ABG Base Excess -2.4 11/11/20 10:10 ABG Hemoglobin 14.9 (12.0-17.5) 11/11/20 10:10 ABG Oxyhemoglobin 95.7 (94-98) 11/11/20 10:10 ABG Methemoglobin 0.3 (0.0-1.5) 11/11/20 10:10 ABG Sodium 135.8 mmol/L (136.0-145.0) L 11/11/20 10:10 ABG Potassium 4.4 mmol/L (3.40-4.50) 11/11/20 10:10 ABG Chloride 111.0 mmol/L (98-107) H 11/11/20 10:10 ABG Glucose 152 mg/dL (65-95) H 11/11/20 10:10 Carboxyhemoglobin 1.3 (0.5-1.5) 11/11/20 10:10 FiO2 % 25 11/11/20 10:10 Sodium 139 mmol/L (137-145) 11/12/20 03:38 Potassium 4.2 mmol/L (3.6-5.0) 11/12/20 03:38 Chloride 109.8 mmol/L (98-107) H 11/12/20 03:38 Carbon Dioxide 23 mmol/L (22-30) 11/12/20 03:38 Anion Gap 10 mmol/L 11/12/20 03:38 BUN 64 mg/dL (9-20) H 11/12/20 03:38 Creatinine 2.0 mg/dL (0.8-1.3) H 11/12/20 03:38 Estimated GFR 40 ml/min 11/12/20 03:38 BUN/Creatinine Ratio 32 % 11/12/20 03:38 Glucose 129 mg/dL (75-100) H 11/12/20 03:38 POC Glucose 107 mg/dL (70-105) H 11/12/20 03:10 Lactic Acid 0.90 mmol/L (0.7-2.0) 11/11/20 13:57 Calcium 6.7 mg/dL (8.4-10.2) L 11/12/20 03:38 Ionized Calcium 4.7 mg/dL (4.8-5.6) L 11/06/20 06:00 Phosphorus 2.10 mg/dL (2.5-4.5) L D 11/12/20 03:38 Magnesium 3.50 mg/dL (1.7-2.3) H 11/12/20 03:38 Ferritin 238.5 ng/mL (30.0-300.0) 10/23/20 18:23 Total Bilirubin 0.50 mg/dL (0.1-1.2) 11/08/20 19:11 Direct Bilirubin < 0.2 mg/dL (0-0.2) 11/08/20 19:11 Indirect Bilirubin 0.3 mg/dL 11/08/20 19:11 AST 21 units/L (5-40) 11/08/20 19:11 ALT 27 units/L (7-56) 11/08/20 19:11 Alkaline Phosphatase 41 units/L (35-129) 11/08/20 19:11 Lactate Dehydrogenase 334 units/L (91-180) H 10/23/20 18:23 Troponin T 0.026 ng/mL (0.00-0.029) 10/23/20 16:39 C-Reactive Protein 8.30 mg/dL (0.00-1.30) H 11/04/20 13:01 NT-Pro-B Natriuret Pep 5806 pg/mL (0-900) H 10/23/20 13:32 Serum Total Protein 4.1 g/dL (6.1-8.1) L 11/06/20 Unknown Total Protein 3.8 g/dL (6.3-8.2) L 11/08/20 19:11 Albumin 2.2 g/dL (3.9-5) L 11/08/20 19:11 Albumin/Globulin Ratio 1.4 % 11/08/20 19:11 Uhkep-4-Bctmdmdhv 0.5 g/dL (0.2-0.3) H 11/06/20 Unknown Newgf-7-Ssbxbzylf 0.7 g/dL (0.5-0.9) 11/06/20 Unknown Beta Globulins 0.2 g/dL (0.2-0.5) 11/06/20 Unknown Gamma Globulins 0.4 g/dL (0.8-1.7) L 11/06/20 Unknown Abnorm Protein Band 1 see below 11/06/20 Unknown PEP Interpretation see below H 11/06/20 Unknown Triglycerides 63 mg/dL (2-149) 11/10/20 05:30 Cholesterol 139 mg/dL (50-199) 10/24/20 09:29 LDL Cholesterol Direct 87 mg/dL (50-130) 10/24/20 09:29 HDL Cholesterol 46 mg/dL (40-59) 10/24/20 09:29 Cholesterol/HDL Ratio 3.02 % 10/24/20 09:29 Serotonin Release Assay See scanned result 11/06/20 Unknown Procalcitonin 0.99 ng/mL (<0.15) 11/03/20 21:14 TSH 6.540 mlU/mL (0.270-4.200) H 10/23/20 18:23 TSH 7.100 mlU/mL (0.270-4.200) H 10/23/20 18:23 Free T4 1.33 ng/dL (0.76-1.46) 10/23/20 18:23 Arterial Blood Glucose 152 mg/dL (65-95) H 11/11/20 10:10 Arterial Blood Ionized Calcium 4.2 mg/dL (4.6-5.3) L 11/11/20 10:10 Urine Color Yellow (Yellow) 11/04/20 11:00 Urine Turbidity Hazy (Clear) 11/04/20 11:00 Urine pH 5.0 (5.0-7.0) 11/04/20 11:00 Ur Specific [place] 1.017 (1.003-1.030) 11/04/20 11:00 Urine Protein 30 mg/dl mg/dL (Negative) 11/04/20 11:00 Urine Glucose (UA) 50 mg/dL (Negative) 11/04/20 11:00 Urine Ketones Neg mg/dL (Negative) 11/04/20 11:00 Urine Blood Neg (Negative) 11/04/20 11:00 Urine Nitrite Neg (Negative) 11/04/20 11:00 Urine Bilirubin Neg (Negative) 11/04/20 11:00 Urine Urobilinogen < 2.0 mg/dL (<2.0) 11/04/20 11:00 Ur Leukocyte Esterase Tr (Negative) 11/04/20 11:00 Urine WBC (Auto) 19.0 /HPF (0.0-6.0) H 11/04/20 11:00 Urine RBC (Auto) 3.0 /HPF (0.0-6.0) 11/04/20 11:00 U Epithel Cells (Auto) < 1.0 /HPF (0-13.0) 11/04/20 11:00 Urine Mucus Few /HPF 11/04/20 11:00 Urine Eosinophils None seen (None Seen) 11/04/20 12:50 Urine Creatinine < 4.2 mg/dL (0.1-20.0) 11/04/20 12:50 Urine Sodium 10 mmol/L 11/04/20 12:50 Random Vancomycin 10.7 ug/mL (0-40.0) 11/08/20 04:39 Heparin-induced Plt Ab Negative (Negative) 11/06/20 Unknown UF Heparin High Dose 0 % Release 11/06/20 Unknown DYLAN UFH Low Dose 0.1 0 % Release 11/06/20 Unknown DYLAN UFH Low Dose 0.5 0 % Release 11/06/20 Unknown Cardiolipid IgG Ab <14 GPL (<=14) 11/06/20 Unknown Cardiolipid IgA Ab <11 APL (<=11) 11/06/20 Unknown Cardiolipid IgM Ab <12 MPL (<=12) 11/06/20 Unknown Coronavirus (PCR) Negative (Negative) 10/24/20 09:57 Blood Type O POSITIVE 11/08/20 11:15 Antibody Screen Negative 11/08/20 11:15 Crossmatch See Detail 11/08/20 11:15 Winkler/IV: Voiding Method Indwelling Catheter Active Medications - Current Medications Current Medications: Generic Name Dose Route Start Last Admin Trade Name Freq PRN Reason Stop Dose Admin Bisacodyl 10 mg 11/08/20 22:00 11/12/20 09:27 Bisacodyl 10 Mg Rect Supp OK 10 mg BID ALEX Administration Dextrose 50 ml 11/08/20 08:04 Dextrose 50% In Water (25gm) 50 Ml Syringe IV Q30MIN PRN Hypoglycemia Protocol Fentanyl 50 mcg 11/03/20 16:46 11/11/20 13:03 Fentanyl 100 Mcg/2 Ml Inj IV 50 mcg Q10MIN PRN Administration ANALGESIA Hydromorphone HCl 1 mg 11/11/20 13:35 Hydromorphone 1 Mg/1 Ml Inj IV Q4H PRN Pain , Severe (7-10) Hydrophilic Ointment 1 applic 11/03/20 16:46 Lip Therapy Vaseline TP Q2HR PRN Dry Lips Fentanyl Citrate 2,000 mcg in 100 mls @ 4.86 mls/hr 11/03/20 17:24 11/12/20 08:31 Fentanyl Drip Premix IV 1 mcg/kg/hr TITR ALEX 4.86 mls/hr Administration Protocol 1 MCG/KG/HR NORepinephrine/NS 8 MG-250 ML 8 mg in 250 mls @ 3.75 mls/hr 11/03/20 18:00 11/11/20 12:20 Norepinephrine/Ns 8 Mg-250 Ml (Double Conc) IV 0 mcg/min TITRATE ALEX 0 mls/hr Titration Protocol 2 MCG/MIN Cefepime HCl 2 gm in 100 mls @ 200 mls/hr 11/08/20 22:00 11/11/20 21:12 Cefepime/Ns 2 Gm/100 Ml IV 11/14/20 22:29 200 mls/hr Q24H [facility] Administration Protocol Propofol 1,000 mg in 100 mls @ 3.126 mls/hr 11/08/20 17:00 11/11/20 04:00 Diprivan 10 Mg/Ml IV 0 mcg/kg/min TITR ALEX 0 mls/hr Titration Protocol 5 MCG/KG/MIN Metronidazole 500 mg in 100 mls @ 100 mls/hr 11/08/20 17:00 11/12/20 08:47 Flagyl 500 Mg/100 Ml IV 11/14/20 17:59 100 mls/hr Q8H [facility] Administration Protocol Heparin Sodium/Sodium Chloride 25,000 unit in 500 mls @ 30 mls/hr 11/09/20 13:00 11/12/20 10:08 Heparin/ 0.45% Nacl-25,000 Unit/500 Ml IV 1,000 units/hr TITR ALEX 20 mls/hr Titration Protocol 1,500 UNITS/HR Amino Acids/Electrolytes/Dextrose 1,800 mls @ 75 mls/hr 11/11/20 20:00 11/11/20 20:16 Tpn Adult IV 11/12/20 19:59 75 mls/hr DAILY@1999 [facility] Administration Protocol Amino Acids/Electrolytes/Dextrose 1,800 mls @ 75 mls/hr 11/12/20 20:00 Tpn Adult IV 11/13/20 19:59 DAILY@1999 [facility] Protocol Fat Emulsion Intravenous 250 mls @ 21 mls/hr 11/12/20 20:00 Intralipid 20% IV 11/13/20 08:00 DAILY@[email or web address] [facility] Insulin Human Regular 0 units 11/12/20 12:00 Insulin Regular, Human 100 Units/1 Ml SUB-Q Q6HR [facility] Protocol Levothyroxine Sodium 75 mcg 11/09/20 06:00 11/12/20 05:03 Levothyroxine 100 Mcg Inj IV 75 mcg DAILY@0600 [facility] Administration Metoprolol Tartrate 5 mg 11/12/20 12:00 Metoprolol Tartrate 5 Mg/5 Ml Inj IV Q6HR [facility] Multi-Ingred Cream/Lotion/Oil/Oint 1 applic 11/03/20 16:46 Mineral Oil/Petrolatum, White Ophth Oint 3.5 Gm OU Q4HR PRN Dry Eye(s) Ondansetron HCl 4 mg 10/23/20 20:00 11/07/20 23:09 Ondansetron 4 Mg/2 Ml Inj IV 4 mg Q8H PRN Administration Nausea And Vomiting Pantoprazole Sodium 40 mg 11/07/20 22:00 11/12/20 09:28 Pantoprazole 40 Mg Inj IV 40 mg BID ALEX Administration Sodium Chloride 10 ml 10/23/20 20:00 11/08/20 21:24 Sodium Chloride 0.9% 10 Ml Flush Syringe IV 10 ml PRN PRN Administration LINE FLUSH Nutrition/Malnutrition Assess - Dietary Evaluation Nutrition/Malnutrition Findings: Nutrition Notes Start: 10/24/20 11:33 Freq: Status: Active Protocol: Document 11/12/20 11:04 TERRY (Rec: 11/12/20 11:11 TERRY [email or web address]) Co-Sign 11/12/20 11:04 CW Nutrition Notes Initial or Follow up Reassessment Current Diagnosis Acute Kidney Injury, Hypertension,Heart Failure, Respiratory Failure,Stroke Other Pertinent Diagnosis pneumatosis intestinalis Current Diet TPN at 75ml/hr Labs/Tests Cl 109.8 BUN 64 Cr 2.0 Ca 6.7 P 2.1 Mg 3.5 Pertinent Medications Heparin in 1/2NS 26ml/hr Dulcolax Calcium gluconate 1 gm Sodium phosphate 15 mmol Height 5 ft 11 in Weight 108.5 kg [place] Body Weight (kg) 78.18 BMI 33.3 Weight change and time frame Pt with 3+ edema Weight Status Overweight Subjective/Other Information TPN day 3. Per chart, pt agitated and pulled out NGT to LIS yesterday. Pt received Ca and P replacement therapy this AM. Pt remains on vent. Edema progressed from 2+ to 3+ . Percent of energy/protein needs met: 60%/80% Burn Absent Trauma Absent Current % PO Negligible Minimum of two criteria No Fluid Accumulation Moderate to Severe (severe) #2 Nutrition Diagnosis Inadequate oral intake Diagnosis Progress(for reassessment Continues documentation) Is patient on ventilator? Yes Is Patient Ambulatory and/or Out of Bed No REE-([facility]-confined to bed) 2245.968 Kcal/Kg value to use for calculation 18 Approximate Energy Requirements Using 1953 kcal/Kg Additional Notes Protein: >156 g (>2 g/kg IBW) Fluid: 1 ml/kcal Nutrition Intervention Change Diet Order: Continue CPN Nutrition Support: CPN at 75 ml/hr: 13.9% dextrose, 8.3% AA, 10mmol P, 0 /100 Cl/CO2, MVI, Thiamine, lipids. Osmolality: 1622 Kcal 1,950 Protein (gm) 150 Carbohydrates (gm) 250 Fat (gm) 50 Fluid (mL) 2,050 Goal #1 Meet at least 75% of energy and protein needs via TPN as best as possible Anticipated Discharge Needs: Unable to determine at the moment. Follow-Up By: 11/13/20 Additional Comments Labs in AM: BMP, Mag, Phos
--- NOTE | 2020-11-12 11:31 | Progress Note ---
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 Afebrile and stable. Post op ileus Continue heparin drip per medicine recommendations. continue NPO through the weekend. Will consider trickle tube feeds on Sunday if showing signs of return of bowel function. Subjective Date of service: 11/12/20 Narrative: no acute events overnight Objective Vital Signs - 12hr 11/11/20 11/12/20 11/12/20 23:30 00:00 00:30 Temperature Pulse Rate 64 65 68 Pulse Rate [ 63 From Monitor] Respiratory 13 14 15 Rate Blood Pressure 122/66 122/64 122/64 O2 Sat by Pulse 100 100 100 Oximetry 11/12/20 11/12/20 11/12/20 00:48 01:00 01:30 Temperature Pulse Rate 75 77 67 Pulse Rate [ From Monitor] Respiratory 29 H 14 Rate Blood Pressure 122/64 110/74 127/65 O2 Sat by Pulse 100 100 100 Oximetry 11/12/20 11/12/20 11/12/20 02:00 02:30 03:00 Temperature Pulse Rate 64 63 64 Pulse Rate [ From Monitor] Respiratory 12 13 17 Rate Blood Pressure 122/65 124/64 127/64 O2 Sat by Pulse 100 100 100 Oximetry 11/12/20 11/12/20 11/12/20 03:05 03:25 03:30 Temperature 99 F Pulse Rate 65 65 Pulse Rate [ From Monitor] Respiratory 8 L Rate Blood Pressure 127/64 127/67 O2 Sat by Pulse 100 100 Oximetry 11/12/20 11/12/20 11/12/20 04:00 04:30 05:00 Temperature Pulse Rate 64 63 67 Pulse Rate [ 63 From Monitor] Respiratory 14 12 16 Rate Blood Pressure 126/67 125/65 127/72 O2 Sat by Pulse 100 100 100 Oximetry 11/12/20 11/12/20 11/12/20 05:30 06:00 06:30 Temperature Pulse Rate 64 62 61 Pulse Rate [ From Monitor] Respiratory 13 12 13 Rate Blood Pressure 129/71 131/67 128/67 O2 Sat by Pulse 100 100 100 Oximetry 11/12/20 11/12/20 11/12/20 07:00 07:25 07:26 Temperature 97.9 F Pulse Rate 62 61 Pulse Rate [ From Monitor] Respiratory 13 Rate Blood Pressure 130/67 130/67 O2 Sat by Pulse 100 100 Oximetry 11/12/20 11/12/20 11/12/20 07:30 08:00 08:30 Temperature Pulse Rate 77 63 62 Pulse Rate [ 64 From Monitor] Respiratory 16 13 14 Rate Blood Pressure 115/69 125/67 129/70 O2 Sat by Pulse 100 100 100 Oximetry 11/12/20 11/12/20 11/12/20 09:00 09:30 10:00 Temperature Pulse Rate 63 64 69 Pulse Rate [ From Monitor] Respiratory 12 16 13 Rate Blood Pressure 130/67 120/70 132/73 O2 Sat by Pulse 100 100 100 Oximetry 11/12/20 11/12/20 10:30 11:00 Temperature Pulse Rate 65 75 Pulse Rate [ From Monitor] Respiratory 14 20 Rate Blood Pressure 141/69 141/69 O2 Sat by Pulse 100 98 Oximetry - General physical appearance no distress, no pain - Respiratory normal expansion, normal respiratory effort - Abdomen soft, not distended, other (midline incision c/d/i, OGT with minimal output, non tender to palpation) - Labs 11/12/20 03:38 11/12/20 03:38 Diabetes panel 11/12/20 Range/Units 03:38 Sodium 139 (137-145) mmol/L Potassium 4.2 (3.6-5.0) mmol/L Chloride 109.8 H (98-107) mmol/L Carbon Dioxide 23 (22-30) mmol/L BUN 64 H (9-20) mg/dL Creatinine 2.0 H (0.8-1.3) mg/dL Glucose 129 H (75-100) mg/dL Calcium 6.7 L (8.4-10.2) mg/dL Calcium panel 11/12/20 Range/Units 03:38 Calcium 6.7 L (8.4-10.2) mg/dL Phosphorus 2.10 L D (2.5-4.5) mg/dL Pituitary panel 11/12/20 Range/Units 03:38 Sodium 139 (137-145) mmol/L Potassium 4.2 (3.6-5.0) mmol/L Chloride 109.8 H (98-107) mmol/L Carbon Dioxide 23 (22-30) mmol/L BUN 64 H (9-20) mg/dL Creatinine 2.0 H (0.8-1.3) mg/dL Glucose 129 H (75-100) mg/dL Calcium 6.7 L (8.4-10.2) mg/dL Adrenal panel 11/12/20 Range/Units 03:38 Sodium 139 (137-145) mmol/L Potassium 4.2 (3.6-5.0) mmol/L Chloride 109.8 H (98-107) mmol/L Carbon Dioxide 23 (22-30) mmol/L BUN 64 H (9-20) mg/dL Creatinine 2.0 H (0.8-1.3) mg/dL Glucose 129 H (75-100) mg/dL Calcium 6.7 L (8.4-10.2) mg/dL
[2020-11-12] MEDS: METOPROLOL TARTRATE 5 MG/5 ML INJ IV SCH ×2 (12:49→18:05)
--- NOTE | 2020-11-12 13:25 | Progress Note ---
Assessment and Plan Cultures: Sputum culture 11/03/2020 upper respiratory mechelle Urine culture 11/04/2020 negative Blood culture 11/04/2020 no growth today Tracheal aspirate 11/04/2020 no growth today Assessment: 70-year-old male with history of hypertension, hypothyroidism, admitted on 10/23/2020 secondary to 2-day history of acute altered mental status with confusion and diminished cognition; noted to have a left MCA CVA and right leg acute thrombosis, now with worsening leukocytosis and on pressors: #Severe sepsis with septic shock: Not present on admission. Remains pressors but improving, leukocytosis is high but improving. Likely secondary to acute thrombus of the right lower extremity complicated with compartment syndrome +/- UTI. Chest x-ray without any obvious pneumonia. 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 Neurology on board. #Acute right leg thromboses: Complicated with compartment syndrome s/p open thrombectomy of the right lower extremity and right lower extremity compartment syndrome fasciotomy on 11/02/2020. #STACEY: creat up. Renally adjust antibiotics. #Acute respiratory failure: Intubated overnight. Chest x-ray with pulmonary edema. Elevated BNP. CT chest shows small pericardial effusion, small bilateral pleural effusion, bilateral interstitial disease. SARS-CoV-2 PCR negative. #Cardiomyopathy: EF 35 to 40%. #Left atrial appendage thrombus: Patient was on heparin drip, currently on hold due to surgical wound bleeding #Anemia Recommendations: -Follow-up blood culture, urinalysis, respiratory cultures -No need to treat Neisha in the sputum -Continue cefepime IV renally adjusted D10, continue metronidazole. Plan 4 days postop. Will follow. Suzan Campbell MD [facility] O: [phone] F: [phone] Subjective Date of service: 11/12/20 Principal diagnosis: Ac hypoxemic resp failure; CVA; Acute limb ischemia; Acute encephalopathy Interval history: Afebrile, white count slightly improved now 15.2 Objective - Exam Narrative Exam: General appearance: Sedated, intubated, currently alert Eyes: anicteric sclerae, moist conjunctivae; no lid-lag HENT: Normocephalic, Atraumatic; normal external ears, nares open, endotracheal tube and NG tube in place Neck: supple, tracheal midline, no JVD Lungs: Coarse breath sound bilaterally CV: RRR no murmur Abdomen: Firm, distended Extremities: Marked right leg edema with fasciotomy wounds bleeding Skin: Right groin surgical wound with clots Psych: Sedated Neuro: Sedated, nares open Winkler in place - Constitutional Vitals: Vital Signs Temp Pulse Resp BP Pulse Ox 98.2 F 67 14 125/63 100 11/12/20 12:00 11/12/20 12:49 11/12/20 12:00 11/12/20 12:49 11/12/20 12:00 Temperature -Last 24 Hours Temperature 98.2 F Temperature 97.9 F Temperature 99 F Temperature 98.8 F Temperature 98.7 F - Labs CBC & Chem 7: 11/12/20 03:38 11/12/20 03:38 Labs: Abnormal lab results 11/11/20 11/11/20 11/11/20 Range/Units 10:10 14:41 17:09 WBC (4.5-11.0) K/mm3 RBC (3.65-5.03) M/mm3 Hgb 8.7 L (11.8-15.2) gm/dl Hct 25.8 L (35.5-45.6) % RDW (13.2-15.2) % ABG Sodium 135.8 L (136.0-145.0) mmol/L ABG Chloride 111.0 H (98-107) mmol/L ABG Glucose 152 H (65-95) mg/dL Chloride (98-107) mmol/L BUN (9-20) mg/dL Creatinine (0.8-1.3) mg/dL Glucose (75-100) mg/dL POC Glucose 110 H (70-105) mg/dL Calcium (8.4-10.2) mg/dL Phosphorus (2.5-4.5) mg/dL Magnesium (1.7-2.3) mg/dL Arterial Blood Glucose 152 H (65-95) mg/dL Arterial Blood Ionized Calcium 4.2 L (4.6-5.3) mg/dL 11/11/20 11/11/20 11/12/20 Range/Units 21:12 23:02 03:10 WBC (4.5-11.0) K/mm3 RBC (3.65-5.03) M/mm3 Hgb (11.8-15.2) gm/dl Hct (35.5-45.6) % RDW (13.2-15.2) % ABG Sodium (136.0-145.0) mmol/L ABG Chloride (98-107) mmol/L ABG Glucose (65-95) mg/dL Chloride (98-107) mmol/L BUN (9-20) mg/dL Creatinine (0.8-1.3) mg/dL Glucose (75-100) mg/dL POC Glucose 115 H 109 H 107 H (70-105) mg/dL Calcium (8.4-10.2) mg/dL Phosphorus (2.5-4.5) mg/dL Magnesium (1.7-2.3) mg/dL Arterial Blood Glucose (65-95) mg/dL Arterial Blood Ionized Calcium (4.6-5.3) mg/dL 11/12/20 11/12/20 11/12/20 Range/Units 03:38 03:38 11:44 WBC 15.2 H (4.5-11.0) K/mm3 RBC 2.70 L (3.65-5.03) M/mm3 Hgb 8.1 L (11.8-15.2) gm/dl Hct 24.3 L (35.5-45.6) % RDW 16.0 H (13.2-15.2) % ABG Sodium (136.0-145.0) mmol/L ABG Chloride (98-107) mmol/L ABG Glucose (65-95) mg/dL Chloride 109.8 H (98-107) mmol/L BUN 64 H (9-20) mg/dL Creatinine 2.0 H (0.8-1.3) mg/dL Glucose 129 H (75-100) mg/dL POC Glucose 114 H (70-105) mg/dL Calcium 6.7 L (8.4-10.2) mg/dL Phosphorus 2.10 L D (2.5-4.5) mg/dL Magnesium 3.50 H (1.7-2.3) mg/dL Arterial Blood Glucose (65-95) mg/dL Arterial Blood Ionized Calcium (4.6-5.3) mg/dL
--- NOTE | 2020-11-12 15:17 | Progress Note ---
Assessment and Plan Acute hypoxemic respiratory failure. Acute embolic cerebrovascular accident. Acute limb ischemia, status post thrombectomy. Left atrial appendage. Acute congestive heart failure exacerbation. Obesity. History of hypothyroidism. Leukocytosis. Acute encephalopathy, toxic metabolic - see if can tolerate PSV whole day then rest on AC overnight for tentative trial of extubation in am - continue low intensity Heparin I.V. and follow H&H - Keep NPO with NGT to LIS - discontinue D51/2NS after current bag is done - repeat lactic acid level in am re: bowel integrity - continue accuchecks q6h - wean Levophed for target MAP > 65 mmHg - complete antiinfective's per ID recommendation - azotemia per nephrology team - continue care as below otherwise; - continue to wean supplemental oxygen for target O2 sat's > 90% acutely - VAP bundle addressed - continue lung protective strategies - continue bronchodilators with pulmonary hygiene per RT - wean per pulmonary driven protocols otherwise - avoid nephrotoxins, renally dose all medications - continue Daily SAT and SBT assessment as tolerated - continue accuchecks with glycemic control per SSI (While critically ill target blood glucose of 140-180 mg/dL; avoid hypoglycemia) - sedation prn for target RASS 0 to -1 - continue to avoid benzodiazepine's, reduce the possibility of delirium - complete AB's per ID rec's - prn analgesia per CPOT score - Maintenance of sleep-wake cycle, avoid delirium - continue enteral nutritional support at goal rate as tolerated - G.I. & VTE prophylaxis - PT/OT/ROM exercises - continue mobility protocols for pressure ulcer prophylaxis - Monitor hemodynamics closely - continue other care per attending / other consultants - discharge planning ongoing concurrently .... Re-evaluate in am & prn CONDITION: CRITICAL PROGNOSIS: GUARDED CODE STATUS: FULL CODE The high probability of a clinically significant, sudden or life-threatening de terioration of the [respiratory, cardiovascular, renal & neurologic] system(s) required my full and direct attention, intervention and personal management. The aggregate critical care time was [35] minutes without overlap. Time includes spent on; [x] Data Review and interpretation [x] Patient assessment and monitoring of vital signs [x] Documentation [x] Medication orders and management Subjective Date of service: 11/11/20 Principal diagnosis: Ac hypoxemic resp failure; CVA; Acute limb ischemia; Acute encephalopathy Interval history: Patient is seen today for: Acute hypoxemic respiratory failure; Acute embolic CVA; Acute limb ischemia; Left atrial appendage; Acute CHF; Obesity; Acute encephalopathy, toxic metabolic Seen and examined at bedside; 24hour events reviewed; nursing and respiratory care staff consulted; no adverse overnight events reported to me; resting peacefully in bed; AMS is persistent but with more periods of lucidity; no emesis or overt aspiration; follows simple commands; tolerating SBT well Objective Vital Signs - 12hr 11/10/20 11/10/20 11/10/20 22:45 23:00 23:15 Temperature Pulse Rate 68 69 73 Pulse Rate [ From Monitor] Respiratory 12 12 12 Rate Blood Pressure 101/64 94/61 87/60 O2 Sat by Pulse 98 99 99 Oximetry 11/10/20 11/10/20 11/10/20 23:21 23:30 23:38 Temperature 98.5 F Pulse Rate 69 68 Pulse Rate [ From Monitor] Respiratory 12 12 Rate Blood Pressure 87/60 86/56 O2 Sat by Pulse 100 99 Oximetry 11/11/20 11/11/20 11/11/20 00:00 00:08 00:31 Temperature Pulse Rate 68 65 76 Pulse Rate [ 61 From Monitor] Respiratory 12 13 Rate Blood Pressure 98/60 98/60 124/69 O2 Sat by Pulse 100 100 100 Oximetry 11/11/20 11/11/20 11/11/20 01:00 01:30 02:00 Temperature Pulse Rate 71 71 81 Pulse Rate [ From Monitor] Respiratory 12 13 16 Rate Blood Pressure 112/63 107/61 124/73 O2 Sat by Pulse 98 98 Oximetry 11/11/20 11/11/20 11/11/20 02:30 03:00 03:31 Temperature Pulse Rate 69 74 69 Pulse Rate [ From Monitor] Respiratory 16 13 12 Rate Blood Pressure 125/79 115/66 100/60 O2 Sat by Pulse 98 100 Oximetry 11/11/20 11/11/20 11/11/20 04:00 04:21 04:30 Temperature 98.8 F Pulse Rate 72 74 75 Pulse Rate [ 61 From Monitor] Respiratory 14 13 Rate Blood Pressure 101/68 101/68 102/75 O2 Sat by Pulse 99 Oximetry 11/11/20 11/11/20 11/11/20 05:00 05:30 06:00 Temperature Pulse Rate 73 71 75 Pulse Rate [ From Monitor] Respiratory 14 13 15 Rate Blood Pressure 121/73 121/70 132/76 O2 Sat by Pulse 100 Oximetry 11/11/20 11/11/20 11/11/20 06:30 07:00 07:27 Temperature 98.3 F Pulse Rate 77 73 74 Pulse Rate [ From Monitor] Respiratory 11 L 12 Rate Blood Pressure 126/72 114/66 137/76 O2 Sat by Pulse 100 100 100 Oximetry 11/11/20 11/11/20 11/11/20 07:30 08:00 08:30 Temperature Pulse Rate 74 75 73 Pulse Rate [ 75 From Monitor] Respiratory 12 9 L 9 L Rate Blood Pressure 137/76 136/78 130/74 O2 Sat by Pulse 99 100 99 Oximetry 11/11/20 11/11/20 09:00 09:30 Temperature Pulse Rate 78 73 Pulse Rate [ From Monitor] Respiratory 15 12 Rate Blood Pressure 139/80 132/73 O2 Sat by Pulse 99 99 Oximetry Constitutional: no acute distress, other (elderly male with mildly increased respiratory effort at rest on MVS) Eyes: non-icteric ENT: oropharynx moist, other (ETT 25 cm DALIA) Neck: supple, no lymphadenopathy, no JVD Effort: mildly labored Ascultation: Bilateral: diminished breath sounds, rhonchi Percussion: Bilateral: not dull Cardiovascular: regular rate and rhythm, murmur noted (COLE) Gastrointestinal: hypoactive bowel sounds, non-tender, other (open abdomen in abthera vacuum dressing) Integumentary: normal Extremities: no cyanosis, pink and warm, edema (RLExt), other (RLExt fasciotomy) Neurologic: pupils equal and round, unable to assess, other (Right Hemiparesis) Psychiatric: other (encephalopathic / sedated) CBC and BMP: 11/12/20 03:38 11/12/20 03:38 ABG, PT/INR, D-dimer: ABG ABG pH 7.494 (7.320-7.450) H 11/08/20 03:38 POC ABG pCO2 36.6 mmHg (32.0-48.0) 11/08/20 03:38 POC ABG pO2 111.5 mmHg (83-108) H 11/08/20 03:38 POC ABG HCO3 27.5 11/08/20 03:38 ABG O2 Saturation 98.4 (0-100) 11/08/20 03:38 PT/INR, D-dimer PT 16.2 Sec. (12.2-14.9) H 11/02/20 19:55 INR 1.30 (0.87-1.13) H 11/02/20 19:55 D-Dimer 4139.61 ng/mlDDU (0-234) H 10/23/20 18:23 Abnormal lab findings: Abnormal Labs 10/23/20 10/23/20 10/23/20 13:32 18:23 18:23 WBC RBC Hgb Hct RDW Seg Neuts % (Manual) Lymphocytes % (Manual) Seg Neutrophils # Man Lymphocytes # (Manual) Monocytes # (Manual) PT INR APTT D-Dimer 4139.61 H Heparin Anti-Xa Level ABG pH POC ABG pCO2 POC ABG pO2 ABG Hemoglobin ABG Oxyhemoglobin ABG Sodium ABG Potassium ABG Chloride ABG Glucose Carboxyhemoglobin Sodium Potassium Chloride 109.1 H Carbon Dioxide BUN Creatinine Glucose POC Glucose Lactic Acid Calcium Ionized Calcium Magnesium Lactate Dehydrogenase 334 H C-Reactive Protein 2.50 H NT-Pro-B Natriuret Pep 5806 H Serum Total Protein Total Protein Albumin Nrnnv-3-Sspbwnoeu Gamma Globulins PEP Interpretation TSH Arterial Blood Glucose Arterial Blood Ionized Calcium Urine WBC (Auto) Crossmatch 10/23/20 10/23/20 10/26/20 18:23 18:23 05:34 WBC RBC Hgb Hct RDW Seg Neuts % (Manual) Lymphocytes % (Manual) Seg Neutrophils # Man Lymphocytes # (Manual) Monocytes # (Manual) PT INR APTT D-Dimer Heparin Anti-Xa Level ABG pH POC ABG pCO2 POC ABG pO2 ABG Hemoglobin ABG Oxyhemoglobin ABG Sodium ABG Potassium ABG Chloride ABG Glucose Carboxyhemoglobin Sodium Potassium Chloride Carbon Dioxide BUN 30 H Creatinine Glucose 120 H POC Glucose Lactic Acid Calcium Ionized Calcium Magnesium Lactate Dehydrogenase C-Reactive Protein NT-Pro-B Natriuret Pep Serum Total Protein Total Protein Albumin Qpjwj-1-Kuesitmkr Gamma Globulins PEP Interpretation TSH 7.100 H 6.540 H Arterial Blood Glucose Arterial Blood Ionized Calcium Urine WBC (Auto) Crossmatch 10/27/20 10/28/20 11/02/20 08:55 05:25 07:17 WBC 15.8 H RBC Hgb Hct RDW Seg Neuts % (Manual) Lymphocytes % (Manual) Seg Neutrophils # Man Lymphocytes # (Manual) Monocytes # (Manual) PT INR APTT D-Dimer Heparin Anti-Xa Level ABG pH POC ABG pCO2 POC ABG pO2 ABG Hemoglobin ABG Oxyhemoglobin ABG Sodium ABG Potassium ABG Chloride ABG Glucose Carboxyhemoglobin Sodium Potassium Chloride Carbon Dioxide BUN 28 H 28 H Creatinine Glucose 124 H 110 H POC Glucose Lactic Acid Calcium 8.2 L Ionized Calcium Magnesium Lactate Dehydrogenase C-Reactive Protein NT-Pro-B Natriuret Pep Serum Total Protein Total Protein Albumin Rzryg-6-[place] Gamma Globulins PEP Interpretation TSH Arterial Blood Glucose Arterial Blood Ionized Calcium Urine WBC (Auto) Crossmatch 11/02/20 11/02/20 11/02/20 07:17 15:00 15:06 WBC RBC Hgb 15.7 H Hct 47.5 H D RDW Seg Neuts % (Manual) Lymphocytes % (Manual) Seg Neutrophils # Man Lymphocytes # (Manual) Monocytes # (Manual) PT INR APTT D-Dimer Heparin Anti-Xa Level ABG pH POC ABG pCO2 POC ABG pO2 ABG Hemoglobin ABG Oxyhemoglobin ABG Sodium ABG Potassium ABG Chloride ABG Glucose Carboxyhemoglobin Sodium 136 L Potassium Chloride Carbon Dioxide BUN 33 H Creatinine Glucose 107 H POC Glucose Lactic Acid Calcium 7.9 L Ionized Calcium Magnesium Lactate Dehydrogenase C-Reactive Protein NT-Pro-B Natriuret Pep Serum Total Protein Total Protein Albumin Oafus-6-Cucmopbtv Gamma Globulins PEP Interpretation TSH Arterial Blood Glucose Arterial Blood Ionized Calcium Urine WBC (Auto) Crossmatch See Detail 11/02/20 11/02/20 11/02/20 19:55 21:25 22:28 WBC 21.8 H RBC Hgb Hct RDW Seg Neuts % (Manual) Lymphocytes % (Manual) Seg Neutrophils # Man Lymphocytes # (Manual) Monocytes # (Manual) PT 16.2 H INR 1.30 H APTT 106.0 H* D-Dimer Heparin Anti-Xa Level 1.63 H ABG pH POC ABG pCO2 POC ABG pO2 ABG Hemoglobin ABG Oxyhemoglobin ABG Sodium ABG Potassium ABG Chloride ABG Glucose Carboxyhemoglobin Sodium Potassium Chloride Carbon Dioxide BUN Creatinine Glucose POC Glucose Lactic Acid Calcium Ionized Calcium Magnesium Lactate Dehydrogenase C-Reactive Protein NT-Pro-B Natriuret Pep Serum Total Protein Total Protein Albumin Azphd-9-Fczozafgt Gamma Globulins PEP Interpretation TSH Arterial Blood Glucose Arterial Blood Ionized Calcium Urine WBC (Auto) Crossmatch 11/03/20 11/03/20 11/03/20 05:47 13:20 13:20 WBC 29.0 H RBC Hgb 10.4 L Hct 31.2 L D RDW Seg Neuts % (Manual) Lymphocytes % (Manual) Seg Neutrophils # Man Lymphocytes # (Manual) Monocytes # (Manual) PT INR APTT D-Dimer Heparin Anti-Xa Level < 0.10 L ABG pH POC ABG pCO2 POC ABG pO2 ABG Hemoglobin ABG Oxyhemoglobin ABG Sodium ABG Potassium ABG Chloride ABG Glucose Carboxyhemoglobin Sodium 134 L Potassium 5.9 H D Chloride Carbon Dioxide 17 L D BUN 47 H Creatinine 2.2 H D Glucose 188 H POC Glucose Lactic Acid Calcium 7.6 L Ionized Calcium Magnesium Lactate Dehydrogenase C-Reactive Protein NT-Pro-B Natriuret Pep Serum Total Protein Total Protein Albumin Ffhvd-2-Duoxpmuqw Gamma Globulins PEP Interpretation TSH Arterial Blood Glucose Arterial Blood Ionized Calcium Urine WBC (Auto) Crossmatch 11/03/20 11/03/20 11/03/20 13:20 16:11 20:01 WBC RBC Hgb Hct RDW Seg Neuts % (Manual) Lymphocytes % (Manual) Seg Neutrophils # Man Lymphocytes # (Manual) Monocytes # (Manual) PT INR APTT D-Dimer Heparin Anti-Xa Level ABG pH 7.289 L POC ABG pCO2 31.8 L POC ABG pO2 156.7 H 119.6 H ABG Hemoglobin 10.7 L 9.7 L ABG Oxyhemoglobin 98.2 H ABG Sodium 127.7 L 129.5 L ABG Potassium 5.8 H 5.9 H ABG Chloride ABG Glucose 190 H 174 H Carboxyhemoglobin 0.3 L 0.1 L Sodium Potassium Chloride Carbon Dioxide BUN Creatinine Glucose POC Glucose Lactic Acid 7.40 H* Calcium Ionized Calcium Magnesium Lactate Dehydrogenase C-Reactive Protein NT-Pro-B Natriuret Pep Serum Total Protein Total Protein Albumin Zhlds-9-Nzlmydmqa Gamma Globulins PEP Interpretation TSH Arterial Blood Glucose 190 H 174 H Arterial Blood Ionized Calcium 4.3 L 4.3 L Urine WBC (Auto) Crossmatch 11/03/20 11/04/20 11/04/20 21:14 04:00 04:00 WBC 32.8 H RBC Hgb 11.7 L Hct 35.0 L RDW Seg Neuts % (Manual) 82.0 H Lymphocytes % (Manual) 10.0 L Seg Neutrophils # Man 26.9 H Lymphocytes # (Manual) Monocytes # (Manual) 2.3 H PT INR APTT D-Dimer Heparin Anti-Xa Level 0.73 H ABG pH POC ABG pCO2 POC ABG pO2 ABG Hemoglobin ABG Oxyhemoglobin ABG Sodium ABG Potassium ABG Chloride ABG Glucose Carboxyhemoglobin Sodium 133 L Potassium 5.7 H Chloride Carbon Dioxide 20 L BUN 57 H Creatinine 2.3 H Glucose 129 H POC Glucose Lactic Acid Calcium 7.2 L Ionized Calcium Magnesium Lactate Dehydrogenase C-Reactive Protein NT-Pro-B Natriuret Pep Serum Total Protein Total Protein Albumin Bxdpl-7-Ifampmteg Gamma Globulins PEP Interpretation TSH Arterial Blood Glucose Arterial Blood Ionized Calcium Urine WBC (Auto) Crossmatch 11/04/20 11/04/20 11/04/20 07:57 11:00 11:55 WBC RBC Hgb Hct RDW Seg Neuts % (Manual) Lymphocytes % (Manual) Seg Neutrophils # Man Lymphocytes # (Manual) Monocytes # (Manual) PT INR APTT D-Dimer Heparin Anti-Xa Level ABG pH POC ABG pCO2 POC ABG pO2 132.7 H ABG Hemoglobin 11.5 L ABG Oxyhemoglobin ABG Sodium 130.6 L ABG Potassium 5.3 H ABG Chloride ABG Glucose 145 H Carboxyhemoglobin 0.2 L Sodium Potassium Chloride Carbon Dioxide BUN Creatinine Glucose POC Glucose 110 H Lactic Acid Calcium Ionized Calcium Magnesium Lactate Dehydrogenase C-Reactive Protein NT-Pro-B Natriuret Pep Serum Total Protein Total Protein Albumin Wncgn-3-Eoroqtuvy Gamma Globulins PEP Interpretation TSH Arterial Blood Glucose 145 H Arterial Blood Ionized Calcium 4.4 L Urine WBC (Auto) 19.0 H Crossmatch 11/04/20 11/04/20 11/04/20 13:01 13:01 17:40 WBC RBC Hgb Hct RDW Seg Neuts % (Manual) Lymphocytes % (Manual) Seg Neutrophils # Man Lymphocytes # (Manual) Monocytes # (Manual) PT INR APTT D-Dimer Heparin Anti-Xa Level 0.26 L ABG pH POC ABG pCO2 POC ABG pO2 ABG Hemoglobin ABG Oxyhemoglobin ABG Sodium ABG Potassium ABG Chloride ABG Glucose Carboxyhemoglobin Sodium Potassium Chloride Carbon Dioxide BUN Creatinine Glucose POC Glucose 135 H Lactic Acid Calcium Ionized Calcium Magnesium Lactate Dehydrogenase C-Reactive Protein 8.30 H NT-Pro-B Natriuret Pep Serum Total Protein Total Protein Albumin Ourik-0-Vchyahwml Gamma Globulins PEP Interpretation TSH Arterial Blood Glucose Arterial Blood Ionized Calcium Urine WBC (Auto) Crossmatch 11/04/20 11/04/20 11/05/20 19:55 23:20 00:53 WBC RBC Hgb 9.7 L 9.0 L Hct 28.3 L D 26.0 L RDW Seg Neuts % (Manual) Lymphocytes % (Manual) Seg Neutrophils # Man Lymphocytes # (Manual) Monocytes # (Manual) PT INR APTT D-Dimer Heparin Anti-Xa Level ABG pH POC ABG pCO2 POC ABG pO2 ABG Hemoglobin ABG Oxyhemoglobin ABG Sodium ABG Potassium ABG Chloride ABG Glucose Carboxyhemoglobin Sodium Potassium Chloride Carbon Dioxide BUN Creatinine Glucose POC Glucose 143 H Lactic Acid Calcium Ionized Calcium Magnesium Lactate Dehydrogenase C-Reactive Protein NT-Pro-B Natriuret Pep Serum Total Protein Total Protein Albumin Fvuum-5-Kzcqbumxh Gamma Globulins PEP Interpretation TSH Arterial Blood Glucose Arterial Blood Ionized Calcium Urine WBC (Auto) Crossmatch 11/05/20 11/05/20 11/05/20 02:16 03:16 03:37 WBC 33.5 H RBC 3.01 L Hgb 8.8 L Hct 25.6 L RDW Seg Neuts % (Manual) 93.5 H Lymphocytes % (Manual) 3.5 L Seg Neutrophils # Man 31.3 H Lymphocytes # (Manual) Monocytes # (Manual) 1.0 H PT INR APTT D-Dimer Heparin Anti-Xa Level 0.99 H ABG pH POC ABG pCO2 POC ABG pO2 131.3 H ABG Hemoglobin 9.2 L ABG Oxyhemoglobin ABG Sodium 131.6 L ABG Potassium ABG Chloride 110.0 H ABG Glucose 168 H Carboxyhemoglobin 0.3 L Sodium Potassium Chloride Carbon Dioxide BUN Creatinine Glucose POC Glucose Lactic Acid Calcium Ionized Calcium Magnesium Lactate Dehydrogenase C-Reactive Protein NT-Pro-B Natriuret Pep Serum Total Protein Total Protein Albumin Ruvhl-3-Mgxnauwwh Gamma Globulins PEP Interpretation TSH Arterial Blood Glucose 168 H Arterial Blood Ionized Calcium 4.4 L Urine WBC (Auto) Crossmatch 05/14/21 05/14/21 05/14/21 03:37 05:19 18:18 WBC RBC Hgb Hct RDW Seg Neuts % (Manual) Lymphocytes % (Manual) Seg Neutrophils # Man Lymphocytes # (Manual) Monocytes # (Manual) PT INR APTT D-Dimer Heparin Anti-Xa Level ABG pH POC ABG pCO2 POC ABG pO2 ABG Hemoglobin ABG Oxyhemoglobin ABG Sodium ABG Potassium ABG Chloride ABG Glucose Carboxyhemoglobin Sodium Potassium Chloride 109.5 H Carbon Dioxide BUN 55 H Creatinine 2.1 H Glucose 157 H POC Glucose 142 H 124 H Lactic Acid Calcium 7.0 L Ionized Calcium Magnesium Lactate Dehydrogenase C-Reactive Protein NT-Pro-B Natriuret Pep Serum Total Protein Total Protein Albumin Swkvr-4-Cepicyajx Gamma Globulins PEP Interpretation TSH Arterial Blood Glucose Arterial Blood Ionized Calcium Urine WBC (Auto) Crossmatch 11/05/20 11/05/20 11/05/20 19:00 21:20 23:30 WBC RBC Hgb Hct RDW Seg Neuts % (Manual) Lymphocytes % (Manual) Seg Neutrophils # Man Lymphocytes # (Manual) Monocytes # (Manual) PT INR APTT 63.8 H* D-Dimer Heparin Anti-Xa Level ABG pH POC ABG pCO2 POC ABG pO2 ABG Hemoglobin ABG Oxyhemoglobin ABG Sodium ABG Potassium ABG Chloride ABG Glucose Carboxyhemoglobin Sodium Potassium Chloride Carbon Dioxide BUN Creatinine Glucose POC Glucose 156 H Lactic Acid Calcium Ionized Calcium Magnesium Lactate Dehydrogenase C-Reactive Protein NT-Pro-B Natriuret Pep Serum Total Protein Total Protein 4.3 L Albumin 2.1 L Thwpj-7-Uwbxsbtxb Gamma Globulins PEP Interpretation TSH Arterial Blood Glucose Arterial Blood Ionized Calcium Urine WBC (Auto) Crossmatch 11/06/20 11/06/20 11/06/20 02:54 04:00 04:00 WBC 33.0 H RBC 2.68 L Hgb 7.7 L Hct 23.3 L RDW Seg Neuts % (Manual) 95.0 H Lymphocytes % (Manual) 2.0 L Seg Neutrophils # Man 31.4 H Lymphocytes # (Manual) 0.7 L Monocytes # (Manual) 1.0 H PT INR APTT D-Dimer Heparin Anti-Xa Level ABG pH POC ABG pCO2 POC ABG pO2 116.5 H ABG Hemoglobin 9.7 L ABG Oxyhemoglobin ABG Sodium 134.5 L ABG Potassium 5.0 H ABG Chloride 109.0 H ABG Glucose 165 H Carboxyhemoglobin 0.3 L Sodium Potassium 5.1 H Chloride 108.6 H Carbon Dioxide BUN 62 H Creatinine 2.2 H Glucose 155 H POC Glucose Lactic Acid Calcium 7.3 L Ionized Calcium Magnesium Lactate Dehydrogenase C-Reactive Protein NT-Pro-B Natriuret Pep Serum Total Protein Total Protein Albumin Qpnhx-6-Wnzzhmjed Gamma Globulins PEP Interpretation TSH Arterial Blood Glucose 165 H Arterial Blood Ionized Calcium 4.5 L Urine WBC (Auto) Crossmatch 11/06/20 11/06/20 11/06/20 05:17 06:00 17:26 WBC RBC Hgb Hct RDW Seg Neuts % (Manual) Lymphocytes % (Manual) Seg Neutrophils # Man Lymphocytes # (Manual) Monocytes # (Manual) PT INR APTT D-Dimer Heparin Anti-Xa Level ABG pH POC ABG pCO2 POC ABG pO2 ABG Hemoglobin ABG Oxyhemoglobin ABG Sodium ABG Potassium ABG Chloride ABG Glucose Carboxyhemoglobin Sodium Potassium Chloride Carbon Dioxide BUN Creatinine Glucose POC Glucose 147 H 132 H Lactic Acid Calcium Ionized Calcium 4.7 L Magnesium Lactate Dehydrogenase C-Reactive Protein NT-Pro-B Natriuret Pep Serum Total Protein Total Protein Albumin Fbrda-7-Tqxenwtmv Gamma Globulins PEP Interpretation TSH Arterial Blood Glucose Arterial Blood Ionized Calcium Urine WBC (Auto) Crossmatch 11/06/20 11/07/20 11/07/20 Unknown 04:00 04:00 WBC 28.9 H RBC 2.44 L Hgb 7.1 L Hct 21.2 L RDW 15.4 H Seg Neuts % (Manual) 95.0 H Lymphocytes % (Manual) 3.0 L Seg Neutrophils # Man 27.5 H Lymphocytes # (Manual) 0.9 L Monocytes # (Manual) PT INR APTT D-Dimer Heparin Anti-Xa Level ABG pH POC ABG pCO2 POC ABG pO2 ABG Hemoglobin ABG Oxyhemoglobin ABG Sodium ABG Potassium ABG Chloride ABG Glucose Carboxyhemoglobin Sodium Potassium 5.3 H Chloride 108.2 H Carbon Dioxide BUN 77 H Creatinine 2.4 H Glucose 144 H POC Glucose Lactic Acid Calcium 7.5 L Ionized Calcium Magnesium Lactate Dehydrogenase C-Reactive Protein NT-Pro-B Natriuret Pep Serum Total Protein 4.1 L Total Protein Albumin 2.2 L Swenu-9-Xkshfykfl 0.5 H Gamma Globulins 0.4 L PEP Interpretation see below H TSH Arterial Blood Glucose Arterial Blood Ionized Calcium Urine WBC (Auto) Crossmatch 11/07/20 11/07/20 11/07/20 04:00 12:06 17:29 WBC RBC Hgb Hct RDW Seg Neuts % (Manual) Lymphocytes % (Manual) Seg Neutrophils # Man Lymphocytes # (Manual) Monocytes # (Manual) PT INR APTT D-Dimer Heparin Anti-Xa Level ABG pH POC ABG pCO2 POC ABG pO2 130.1 H ABG Hemoglobin 7.5 L ABG Oxyhemoglobin ABG Sodium ABG Potassium 5.0 H ABG Chloride 110.0 H ABG Glucose 152 H Carboxyhemoglobin Sodium Potassium Chloride Carbon Dioxide BUN Creatinine Glucose POC Glucose 144 H 117 H Lactic Acid Calcium Ionized Calcium Magnesium Lactate Dehydrogenase C-Reactive Protein NT-Pro-B Natriuret Pep Serum Total Protein Total Protein Albumin Orxsg-2-Ghtsncfmh Gamma Globulins PEP Interpretation TSH Arterial Blood Glucose 152 H Arterial Blood Ionized Calcium Urine WBC (Auto) Crossmatch 11/08/20 11/08/20 11/08/20 03:38 04:39 04:39 WBC 23.1 H RBC 2.37 L Hgb 6.9 L Hct 20.8 L RDW 15.3 H Seg Neuts % (Manual) 95.5 H Lymphocytes % (Manual) 2.5 L Seg Neutrophils # Man 22.1 H Lymphocytes # (Manual) 0.6 L Monocytes # (Manual) PT INR APTT D-Dimer Heparin Anti-Xa Level ABG pH 7.494 H POC ABG pCO2 POC ABG pO2 111.5 H ABG Hemoglobin 6.7 L ABG Oxyhemoglobin ABG Sodium ABG Potassium 4.9 H ABG Chloride 112.0 H ABG Glucose 153 H Carboxyhemoglobin Sodium Potassium 5.1 H Chloride 111.3 H Carbon Dioxide BUN 86 H Creatinine 2.5 H Glucose 142 H POC Glucose Lactic Acid Calcium 7.6 L Ionized Calcium Magnesium Lactate Dehydrogenase C-Reactive Protein NT-Pro-B Natriuret Pep Serum Total Protein Total Protein Albumin Trjdg-0-Qrlejwqeh Gamma Globulins PEP Interpretation TSH Arterial Blood Glucose 153 H Arterial Blood Ionized Calcium 4.5 L Urine WBC (Auto) Crossmatch 11/08/20 11/08/20 11/08/20 11:13 11:15 16:30 WBC RBC Hgb 8.0 L Hct 23.6 L RDW Seg Neuts % (Manual) Lymphocytes % (Manual) Seg Neutrophils # Man Lymphocytes # (Manual) Monocytes # (Manual) PT INR APTT D-Dimer Heparin Anti-Xa Level ABG pH POC ABG pCO2 POC ABG pO2 ABG Hemoglobin ABG Oxyhemoglobin ABG Sodium ABG Potassium ABG Chloride ABG Glucose Carboxyhemoglobin Sodium Potassium Chloride Carbon Dioxide BUN Creatinine Glucose POC Glucose 125 H Lactic Acid Calcium Ionized Calcium Magnesium Lactate Dehydrogenase C-Reactive Protein NT-Pro-B Natriuret Pep Serum Total Protein Total Protein Albumin Llvtn-3-Prmjfqmfv Gamma Globulins PEP Interpretation TSH Arterial Blood Glucose Arterial Blood Ionized Calcium Urine WBC (Auto) Crossmatch See Detail 11/08/20 11/08/20 11/09/20 19:11 22:20 03:21 WBC 19.0 H RBC 2.51 L Hgb 7.5 L Hct 22.2 L RDW 15.3 H Seg Neuts % (Manual) 89.0 H Lymphocytes % (Manual) 6.0 L Seg Neutrophils # Man 16.9 H Lymphocytes # (Manual) 1.1 L Monocytes # (Manual) 1.0 H PT INR APTT D-Dimer Heparin Anti-Xa Level ABG pH POC ABG pCO2 POC ABG pO2 ABG Hemoglobin ABG Oxyhemoglobin ABG Sodium ABG Potassium ABG Chloride ABG Glucose Carboxyhemoglobin Sodium Potassium Chloride Carbon Dioxide BUN Creatinine Glucose POC Glucose 107 H Lactic Acid Calcium Ionized Calcium Magnesium Lactate Dehydrogenase C-Reactive Protein NT-Pro-B Natriuret Pep Serum Total Protein Total Protein 3.8 L Albumin 2.2 L Mmufk-0-Kntrtxjzl Gamma Globulins PEP Interpretation TSH Arterial Blood Glucose Arterial Blood Ionized Calcium Urine WBC (Auto) Crossmatch 11/09/20 11/09/20 11/09/20 03:21 03:21 03:43 WBC RBC Hgb Hct RDW Seg Neuts % (Manual) Lymphocytes % (Manual) Seg Neutrophils # Man Lymphocytes # (Manual) Monocytes # (Manual) PT INR APTT 50.8 H D-Dimer Heparin Anti-Xa Level ABG pH POC ABG pCO2 POC ABG pO2 ABG Hemoglobin ABG Oxyhemoglobin ABG Sodium ABG Potassium ABG Chloride ABG Glucose Carboxyhemoglobin Sodium Potassium Chloride 109.1 H Carbon Dioxide BUN 86 H Creatinine 2.5 H Glucose 140 H POC Glucose 117 H Lactic Acid Calcium 6.9 L Ionized Calcium Magnesium Lactate Dehydrogenase C-Reactive Protein NT-Pro-B Natriuret Pep Serum Total Protein Total Protein Albumin Sgdui-7-Wnnwaktcl Gamma Globulins PEP Interpretation TSH Arterial Blood Glucose Arterial Blood Ionized Calcium Urine WBC (Auto) Crossmatch 11/09/20 11/09/20 11/09/20 09:22 17:04 22:08 WBC RBC Hgb Hct RDW Seg Neuts % (Manual) Lymphocytes % (Manual) Seg Neutrophils # Man Lymphocytes # (Manual) Monocytes # (Manual) PT INR APTT D-Dimer Heparin Anti-Xa Level ABG pH POC ABG pCO2 POC ABG pO2 ABG Hemoglobin ABG Oxyhemoglobin ABG Sodium ABG Potassium ABG Chloride ABG Glucose Carboxyhemoglobin Sodium Potassium Chloride Carbon Dioxide BUN Creatinine Glucose POC Glucose 111 H 106 H 112 H Lactic Acid Calcium Ionized Calcium Magnesium Lactate Dehydrogenase C-Reactive Protein NT-Pro-B Natriuret Pep Serum Total Protein Total Protein Albumin Qjyah-[id number] Gamma Globulins PEP Interpretation TSH Arterial Blood Glucose Arterial Blood Ionized Calcium Urine WBC (Auto) Crossmatch 11/10/20 11/10/20 11/10/20 05:30 05:30 11:50 WBC RBC Hgb 6.6 L Hct 19.9 L* RDW Seg Neuts % (Manual) Lymphocytes % (Manual) Seg Neutrophils # Man Lymphocytes # (Manual) Monocytes # (Manual) PT INR APTT D-Dimer Heparin Anti-Xa Level ABG pH POC ABG pCO2 POC ABG pO2 ABG Hemoglobin ABG Oxyhemoglobin ABG Sodium ABG Potassium ABG Chloride ABG Glucose Carboxyhemoglobin Sodium Potassium Chloride 111.3 H Carbon Dioxide BUN 74 H Creatinine 2.3 H Glucose 119 H POC Glucose 108 H Lactic Acid Calcium 7.1 L Ionized Calcium Magnesium 4.40 H Lactate Dehydrogenase C-Reactive Protein NT-Pro-B Natriuret Pep Serum Total Protein Total Protein Albumin Ejrii-[id number] Gamma Globulins PEP Interpretation TSH Arterial Blood Glucose Arterial Blood Ionized Calcium Urine WBC (Auto) Crossmatch 11/10/20 11/10/20 11/10/20 17:50 23:12 23:17 WBC RBC Hgb 9.5 L 9.1 L Hct 28.2 L D 27.5 L RDW Seg Neuts % (Manual) Lymphocytes % (Manual) Seg Neutrophils # Man Lymphocytes # (Manual) Monocytes # (Manual) PT INR APTT D-Dimer Heparin Anti-Xa Level ABG pH POC ABG pCO2 POC ABG pO2 ABG Hemoglobin ABG Oxyhemoglobin ABG Sodium ABG Potassium ABG Chloride ABG Glucose Carboxyhemoglobin Sodium Potassium Chloride Carbon Dioxide BUN Creatinine Glucose POC Glucose 107 H Lactic Acid Calcium Ionized Calcium Magnesium Lactate Dehydrogenase C-Reactive Protein NT-Pro-B Natriuret Pep Serum Total Protein Total Protein Albumin Mcvbq-[id number] Gamma Globulins PEP Interpretation TSH Arterial Blood Glucose Arterial Blood Ionized Calcium Urine WBC (Auto) Crossmatch 11/11/20 11/11/20 11/11/20 05:16 05:30 08:35 WBC 17.4 H RBC 3.17 L Hgb 9.5 L Hct 29.0 L RDW 16.2 H Seg Neuts % (Manual) Lymphocytes % (Manual) Seg Neutrophils # Man Lymphocytes # (Manual) Monocytes # (Manual) PT INR APTT D-Dimer Heparin Anti-Xa Level ABG pH POC ABG pCO2 POC ABG pO2 ABG Hemoglobin ABG Oxyhemoglobin ABG Sodium ABG Potassium ABG Chloride ABG Glucose Carboxyhemoglobin Sodium Potassium Chloride 107.4 H Carbon Dioxide BUN 64 H Creatinine 2.1 H Glucose 148 H POC Glucose 127 H Lactic Acid Calcium 6.7 L Ionized Calcium Magnesium 3.90 H Lactate Dehydrogenase C-Reactive Protein NT-Pro-B Natriuret Pep Serum Total Protein Total Protein Albumin Ubkwm-[id number] Gamma Globulins PEP Interpretation TSH Arterial Blood Glucose Arterial Blood Ionized Calcium Urine WBC (Auto) Crossmatch 11/11/20 09:14 WBC RBC Hgb 9.2 L Hct 27.2 L RDW Seg Neuts % (Manual) Lymphocytes % (Manual) Seg Neutrophils # Man Lymphocytes # (Manual) Monocytes # (Manual) PT INR APTT D-Dimer Heparin Anti-Xa Level ABG pH POC ABG pCO2 POC ABG pO2 ABG Hemoglobin ABG Oxyhemoglobin ABG Sodium ABG Potassium ABG Chloride ABG Glucose Carboxyhemoglobin Sodium Potassium Chloride Carbon Dioxide BUN Creatinine Glucose POC Glucose Lactic Acid Calcium Ionized Calcium Magnesium Lactate Dehydrogenase C-Reactive Protein NT-Pro-B Natriuret Pep Serum Total Protein Total Protein Albumin Iljpo-4-Slyxulwbu Gamma Globulins PEP Interpretation TSH Arterial Blood Glucose Arterial Blood Ionized Calcium Urine WBC (Auto) Crossmatch Chest x-ray: other (none today) Allied health notes reviewed: nursing
--- NOTE | 2020-11-12 15:20 | Progress Note ---
Assessment and Plan Acute hypoxemic respiratory failure. Acute embolic cerebrovascular accident. Acute limb ischemia, status post thrombectomy. Left atrial appendage. Acute congestive heart failure exacerbation. Obesity. History of hypothyroidism. Leukocytosis. Acute encephalopathy, toxic metabolic - extubate - schedule BIPAP (03/29) qhs for ventilatory assist - continue low intensity Heparin I.V. and follow H&H - Keep NPO with NGT to LIS - repeat lactic acid level WNL - continue accuchecks q6h - off Levophed - complete antiinfective's per ID recommendation - azotemia per nephrology team - continue care as below otherwise; - continue to wean supplemental oxygen for target O2 sat's > 90% acutely - VAP bundle addressed - continue lung protective strategies - continue bronchodilators with pulmonary hygiene per RT - wean per pulmonary driven protocols otherwise - avoid nephrotoxins, renally dose all medications - continue Daily SAT and SBT assessment as tolerated - continue accuchecks with glycemic control per SSI (While critically ill target blood glucose of 140-180 mg/dL; avoid hypoglycemia) - sedation prn for target RASS 0 to -1 - continue to avoid benzodiazepine's, reduce the possibility of delirium - complete AB's per ID rec's - prn analgesia per CPOT score - Maintenance of sleep-wake cycle, avoid delirium - continue enteral nutritional support at goal rate as tolerated - G.I. & VTE prophylaxis - PT/OT/ROM exercises - continue mobility protocols for pressure ulcer prophylaxis - Monitor hemodynamics closely - continue other care per attending / other consultants - discharge planning ongoing concurrently .... Re-evaluate in am & prn CONDITION: CRITICAL PROGNOSIS: GUARDED CODE STATUS: FULL CODE The high probability of a clinically significant, sudden or life-threatening deterioration of the [respiratory, cardiovascular, renal & neurologic] system(s) required my full and direct attention, intervention and personal management. The aggregate critical care time was [32] minutes without overlap. Time includes spent on; [x] Data Review and interpretation [x] Patient assessment and monitoring of vital signs [x] Documentation [x] Medication orders and management Subjective Date of service: 11/12/20 Principal diagnosis: Ac hypoxemic resp failure; CVA; Acute limb ischemia; Acute encephalopathy Interval history: Patient is seen today for: Acute hypoxemic respiratory failure; Acute embolic CVA; Acute limb ischemia; Left atrial appendage; Acute CHF; Obesity; Acute encephalopathy, toxic metabolic Seen and examined at bedside; 24hour events reviewed; nursing and respiratory care staff consulted; no adverse overnight events reported to me; resting peacef ully in bed; following 2 step commands; tolerating SBT well with adequate ventilation on ABG; no emesis or overt aspiration; afebrile; had a good non- bloody BM Objective Vital Signs - 12hr 11/12/20 11/12/20 11/12/20 03:25 03:30 04:00 Temperature 99 F Pulse Rate 65 64 Pulse Rate [ 63 From Monitor] Respiratory 8 L 14 Rate Blood Pressure 127/67 126/67 O2 Sat by Pulse 100 100 Oximetry 11/12/20 11/12/20 11/12/20 04:30 05:00 05:30 Temperature Pulse Rate 63 67 64 Pulse Rate [ From Monitor] Respiratory 12 16 13 Rate Blood Pressure 125/65 127/72 129/71 O2 Sat by Pulse 100 100 100 Oximetry 11/12/20 11/12/20 11/12/20 06:00 06:30 07:00 Temperature Pulse Rate 62 61 62 Pulse Rate [ From Monitor] Respiratory 12 13 13 Rate Blood Pressure 131/67 128/67 130/67 O2 Sat by Pulse 100 100 100 Oximetry 11/12/20 11/12/20 11/12/20 07:25 07:26 07:30 Temperature 97.9 F Pulse Rate 61 77 Pulse Rate [ From Monitor] Respiratory 16 Rate Blood Pressure 130/67 115/69 O2 Sat by Pulse 100 100 Oximetry 11/12/20 11/12/20 11/12/20 08:00 08:30 09:00 Temperature Pulse Rate 63 62 63 Pulse Rate [ 64 From Monitor] Respiratory 13 14 12 Rate Blood Pressure 125/67 129/70 130/67 O2 Sat by Pulse 100 100 100 Oximetry 11/12/20 11/12/20 11/12/20 09:30 10:00 10:30 Temperature Pulse Rate 64 69 65 Pulse Rate [ From Monitor] Respiratory 16 13 14 Rate Blood Pressure 120/70 132/73 141/69 O2 Sat by Pulse 100 100 100 Oximetry 11/12/20 11/12/20 11/12/20 11:00 11:03 11:30 Temperature Pulse Rate 75 71 63 Pulse Rate [ From Monitor] Respiratory 20 13 14 Rate Blood Pressure 141/69 117/65 O2 Sat by Pulse 98 98 100 Oximetry 11/12/20 11/12/20 11/12/20 12:00 12:30 12:49 Temperature 98.2 F Pulse Rate 65 66 67 Pulse Rate [ 63 From Monitor] Respiratory 10 L 10 L Rate Blood Pressure 117/65 125/63 125/63 O2 Sat by Pulse 100 100 Oximetry 11/12/20 11/12/20 11/12/20 13:00 13:30 14:00 Temperature Pulse Rate 65 63 65 Pulse Rate [ From Monitor] Respiratory 13 12 12 Rate Blood Pressure 129/100 124/70 123/61 O2 Sat by Pulse 100 100 100 Oximetry 11/12/20 11/12/20 11/12/20 14:10 14:30 14:54 Temperature Pulse Rate 68 Pulse Rate [ From Monitor] Respiratory 14 Rate Blood Pressure 116/58 O2 Sat by Pulse 100 100 100 Oximetry 11/12/20 15:00 Temperature Pulse Rate 72 Pulse Rate [ From Monitor] Respiratory 18 Rate Blood Pressure 116/74 O2 Sat by Pulse 100 Oximetry Constitutional: no acute distress, other (elderly male with mildly increased respiratory effort at rest on MVS) Eyes: non-icteric ENT: oropharynx moist, other (ETT 25 cm DALIA) Neck: supple, no lymphadenopathy, no JVD Effort: mildly labored Ascultation: Bilateral: diminished breath sounds, rhonchi Percussion: Bilateral: not dull Cardiovascular: regular rate and rhythm, murmur noted (COLE) Gastrointestinal: hypoactive bowel sounds, non-tender, other (open abdomen in abthera vacuum dressing) Integumentary: normal Extremities: no cyanosis, pink and warm, edema (RLExt), other (RLExt fasciotomy) Neurologic: pupils equal and round, unable to assess, other (Right Hemiparesis) Psychiatric: other (somnolent) CBC and BMP: 11/12/20 03:38 11/12/20 03:38 ABG, PT/INR, D-dimer: ABG ABG pH 7.401 (7.320-7.450) 11/12/20 13:49 POC ABG pCO2 38.2 mmHg (32.0-48.0) 11/12/20 13:49 POC ABG pO2 100.6 mmHg (83-108) 11/12/20 13:49 POC ABG HCO3 23.2 11/12/20 13:49 ABG O2 Saturation 97.9 (0-100) 11/12/20 13:49 PT/INR, D-dimer PT 16.2 Sec. (12.2-14.9) H 11/02/20 19:55 INR 1.30 (0.87-1.13) H 11/02/20 19:55 D-Dimer 4139.61 ng/mlDDU (0-234) H 10/23/20 18:23 Abnormal lab findings: Abnormal Labs 10/23/20 10/23/20 10/23/20 13:32 18:23 18:23 WBC RBC Hgb Hct RDW Seg Neuts % (Manual) Lymphocytes % (Manual) Seg Neutrophils # Man Lymphocytes # (Manual) Monocytes # (Manual) PT INR APTT D-Dimer 4139.61 H Heparin Anti-Xa Level ABG pH POC ABG pCO2 POC ABG pO2 ABG Hemoglobin ABG Oxyhemoglobin ABG Sodium ABG Potassium ABG Chloride ABG Glucose Carboxyhemoglobin Sodium Potassium Chloride 109.1 H Carbon Dioxide BUN Creatinine Glucose POC Glucose Lactic Acid Calcium Ionized Calcium Phosphorus Magnesium Lactate Dehydrogenase 334 H C-Reactive Protein 2.50 H NT-Pro-B Natriuret Pep 5806 H Serum Total Protein Total Protein Albumin Oncph-4-Lcbxjwfzh Gamma Globulins PEP Interpretation TSH Arterial Blood Glucose Arterial Blood Ionized Calcium Urine WBC (Auto) Crossmatch 10/23/20 10/23/20 10/26/20 18:23 18:23 05:34 WBC RBC Hgb Hct RDW Seg Neuts % (Manual) Lymphocytes % (Manual) Seg Neutrophils # Man Lymphocytes # (Manual) Monocytes # (Manual) PT INR APTT D-Dimer Heparin Anti-Xa Level ABG pH POC ABG pCO2 POC ABG pO2 ABG Hemoglobin ABG Oxyhemoglobin ABG Sodium ABG Potassium ABG Chloride ABG Glucose Carboxyhemoglobin Sodium Potassium Chloride Carbon Dioxide BUN 30 H Creatinine Glucose 120 H POC Glucose Lactic Acid Calcium Ionized Calcium Phosphorus Magnesium Lactate Dehydrogenase C-Reactive Protein NT-Pro-B Natriuret Pep Serum Total Protein Total Protein Albumin Tmsdc-8-Wnjtezgls Gamma Globulins PEP Interpretation TSH 7.100 H 6.540 H Arterial Blood Glucose Arterial Blood Ionized Calcium Urine WBC (Auto) Crossmatch 10/27/20 10/28/20 11/02/20 08:55 05:25 07:17 WBC 15.8 H RBC Hgb Hct RDW Seg Neuts % (Manual) Lymphocytes % (Manual) Seg Neutrophils # Man Lymphocytes # (Manual) Monocytes # (Manual) PT INR APTT D-Dimer Heparin Anti-Xa Level ABG pH POC ABG pCO2 POC ABG pO2 ABG Hemoglobin ABG Oxyhemoglobin ABG Sodium ABG Potassium ABG Chloride ABG Glucose Carboxyhemoglobin Sodium Potassium Chloride Carbon Dioxide BUN 28 H 28 H Creatinine Glucose 124 H 110 H POC Glucose Lactic Acid Calcium 8.2 L Ionized Calcium Phosphorus Magnesium Lactate Dehydrogenase C-Reactive Protein NT-Pro-B Natriuret Pep Serum Total Protein Total Protein Albumin Fkawk-3-Wbyexckyq Gamma Globulins PEP Interpretation TSH Arterial Blood Glucose Arterial Blood Ionized Calcium Urine WBC (Auto) Crossmatch 11/02/20 11/02/20 11/02/20 07:17 15:00 15:06 WBC RBC Hgb 15.7 H Hct 47.5 H D RDW Seg Neuts % (Manual) Lymphocytes % (Manual) Seg Neutrophils # Man Lymphocytes # (Manual) Monocytes # (Manual) PT INR APTT D-Dimer Heparin Anti-Xa Level ABG pH POC ABG pCO2 POC ABG pO2 ABG Hemoglobin ABG Oxyhemoglobin ABG Sodium ABG Potassium ABG Chloride ABG Glucose Carboxyhemoglobin Sodium 136 L Potassium Chloride Carbon Dioxide BUN 33 H Creatinine Glucose 107 H POC Glucose Lactic Acid Calcium 7.9 L Ionized Calcium Phosphorus Magnesium Lactate Dehydrogenase C-Reactive Protein NT-Pro-B Natriuret Pep Serum Total Protein Total Protein Albumin Tsdqy-0-Spbslyvyo Gamma Globulins PEP Interpretation TSH Arterial Blood Glucose Arterial Blood Ionized Calcium Urine WBC (Auto) Crossmatch See Detail 11/02/20 11/02/20 11/02/20 19:55 21:25 22:28 WBC 21.8 H RBC Hgb Hct RDW Seg Neuts % (Manual) Lymphocytes % (Manual) Seg Neutrophils # Man Lymphocytes # (Manual) Monocytes # (Manual) PT 16.2 H INR 1.30 H APTT 106.0 H* D-Dimer Heparin Anti-Xa Level 1.63 H ABG pH POC ABG pCO2 POC ABG pO2 ABG Hemoglobin ABG Oxyhemoglobin ABG Sodium ABG Potassium ABG Chloride ABG Glucose Carboxyhemoglobin Sodium Potassium Chloride Carbon Dioxide BUN Creatinine Glucose POC Glucose Lactic Acid Calcium Ionized Calcium Phosphorus Magnesium Lactate Dehydrogenase C-Reactive Protein NT-Pro-B Natriuret Pep Serum Total Protein Total Protein Albumin Phupa-9-Iwjomcftc Gamma Globulins PEP Interpretation TSH Arterial Blood Glucose Arterial Blood Ionized Calcium Urine WBC (Auto) Crossmatch 11/03/20 11/03/20 11/03/20 05:47 13:20 13:20 WBC 29.0 H RBC Hgb 10.4 L Hct 31.2 L D RDW Seg Neuts % (Manual) Lymphocytes % (Manual) Seg Neutrophils # Man Lymphocytes # (Manual) Monocytes # (Manual) PT INR APTT D-Dimer Heparin Anti-Xa Level < 0.10 L ABG pH POC ABG pCO2 POC ABG pO2 ABG Hemoglobin ABG Oxyhemoglobin ABG Sodium ABG Potassium ABG Chloride ABG Glucose Carboxyhemoglobin Sodium 134 L Potassium 5.9 H D Chloride Carbon Dioxide 17 L D BUN 47 H Creatinine 2.2 H D Glucose 188 H POC Glucose Lactic Acid Calcium 7.6 L Ionized Calcium Phosphorus Magnesium Lactate Dehydrogenase C-Reactive Protein NT-Pro-B Natriuret Pep Serum Total Protein Total Protein Albumin Nmsha-7-Svrritcyd Gamma Globulins PEP Interpretation TSH Arterial Blood Glucose Arterial Blood Ionized Calcium Urine WBC (Auto) Crossmatch 11/03/20 11/03/20 11/03/20 13:20 16:11 20:01 WBC RBC Hgb Hct RDW Seg Neuts % (Manual) Lymphocytes % (Manual) Seg Neutrophils # Man Lymphocytes # (Manual) Monocytes # (Manual) PT INR APTT D-Dimer Heparin Anti-Xa Level ABG pH 7.289 L POC ABG pCO2 31.8 L POC ABG pO2 156.7 H 119.6 H ABG Hemoglobin 10.7 L 9.7 L ABG Oxyhemoglobin 98.2 H ABG Sodium 127.7 L 129.5 L ABG Potassium 5.8 H 5.9 H ABG Chloride ABG Glucose 190 H 174 H Carboxyhemoglobin 0.3 L 0.1 L Sodium Potassium Chloride Carbon Dioxide BUN Creatinine Glucose POC Glucose Lactic Acid 7.40 H* Calcium Ionized Calcium Phosphorus Magnesium Lactate Dehydrogenase C-Reactive Protein NT-Pro-B Natriuret Pep Serum Total Protein Total Protein Albumin Xnwbh-0-Reeyguuzk Gamma Globulins PEP Interpretation TSH Arterial Blood Glucose 190 H 174 H Arterial Blood Ionized Calcium 4.3 L 4.3 L Urine WBC (Auto) Crossmatch 11/03/20 11/04/20 11/04/20 21:14 04:00 04:00 WBC 32.8 H RBC Hgb 11.7 L Hct 35.0 L RDW Seg Neuts % (Manual) 82.0 H Lymphocytes % (Manual) 10.0 L Seg Neutrophils # Man 26.9 H Lymphocytes # (Manual) Monocytes # (Manual) 2.3 H PT INR APTT D-Dimer Heparin Anti-Xa Level 0.73 H ABG pH POC ABG pCO2 POC ABG pO2 ABG Hemoglobin ABG Oxyhemoglobin ABG Sodium ABG Potassium ABG Chloride ABG Glucose Carboxyhemoglobin Sodium 133 L Potassium 5.7 H Chloride Carbon Dioxide 20 L BUN 57 H Creatinine 2.3 H Glucose 129 H POC Glucose Lactic Acid Calcium 7.2 L Ionized Calcium Phosphorus Magnesium Lactate Dehydrogenase C-Reactive Protein NT-Pro-B Natriuret Pep Serum Total Protein Total Protein Albumin Rytgm-8-Lhfsgesiz Gamma Globulins PEP Interpretation TSH Arterial Blood Glucose Arterial Blood Ionized Calcium Urine WBC (Auto) Crossmatch 11/04/20 11/04/20 11/04/20 07:57 11:00 11:55 WBC RBC Hgb Hct RDW Seg Neuts % (Manual) Lymphocytes % (Manual) Seg Neutrophils # Man Lymphocytes # (Manual) Monocytes # (Manual) PT INR APTT D-Dimer Heparin Anti-Xa Level ABG pH POC ABG pCO2 POC ABG pO2 132.7 H ABG Hemoglobin 11.5 L ABG Oxyhemoglobin ABG Sodium 130.6 L ABG Potassium 5.3 H ABG Chloride ABG Glucose 145 H Carboxyhemoglobin 0.2 L Sodium Potassium Chloride Carbon Dioxide BUN Creatinine Glucose POC Glucose 110 H Lactic Acid Calcium Ionized Calcium Phosphorus Magnesium Lactate Dehydrogenase C-Reactive Protein NT-Pro-B Natriuret Pep Serum Total Protein Total Protein Albumin Xkhzn-2-Tqorkmetb Gamma Globulins PEP Interpretation TSH Arterial Blood Glucose 145 H Arterial Blood Ionized Calcium 4.4 L Urine WBC (Auto) 19.0 H Crossmatch 11/04/20 11/04/20 11/04/20 13:01 13:01 17:40 WBC RBC Hgb Hct RDW Seg Neuts % (Manual) Lymphocytes % (Manual) Seg Neutrophils # Man Lymphocytes # (Manual) Monocytes # (Manual) PT INR APTT D-Dimer Heparin Anti-Xa Level 0.26 L ABG pH POC ABG pCO2 POC ABG pO2 ABG Hemoglobin ABG Oxyhemoglobin ABG Sodium ABG Potassium ABG Chloride ABG Glucose Carboxyhemoglobin Sodium Potassium Chloride Carbon Dioxide BUN Creatinine Glucose POC Glucose 135 H Lactic Acid Calcium Ionized Calcium Phosphorus Magnesium Lactate Dehydrogenase C-Reactive Protein 8.30 H NT-Pro-B Natriuret Pep Serum Total Protein Total Protein Albumin Twmcc-8-Kxxnmgwbs Gamma Globulins PEP Interpretation TSH Arterial Blood Glucose Arterial Blood Ionized Calcium Urine WBC (Auto) Crossmatch 11/04/20 11/04/20 11/05/20 19:55 23:20 00:53 WBC RBC Hgb 9.7 L 9.0 L Hct 28.3 L D 26.0 L RDW Seg Neuts % (Manual) Lymphocytes % (Manual) Seg Neutrophils # Man Lymphocytes # (Manual) Monocytes # (Manual) PT INR APTT D-Dimer Heparin Anti-Xa Level ABG pH POC ABG pCO2 POC ABG pO2 ABG Hemoglobin ABG Oxyhemoglobin ABG Sodium ABG Potassium ABG Chloride ABG Glucose Carboxyhemoglobin Sodium Potassium Chloride Carbon Dioxide BUN Creatinine Glucose POC Glucose 143 H Lactic Acid Calcium Ionized Calcium Phosphorus Magnesium Lactate Dehydrogenase C-Reactive Protein NT-Pro-B Natriuret Pep Serum Total Protein Total Protein Albumin Miwcu-2-Ffzaiipcd Gamma Globulins PEP Interpretation TSH Arterial Blood Glucose Arterial Blood Ionized Calcium Urine WBC (Auto) Crossmatch 11/05/20 11/05/20 11/05/20 02:16 03:16 03:37 WBC 33.5 H RBC 3.01 L Hgb 8.8 L Hct 25.6 L RDW Seg Neuts % (Manual) 93.5 H Lymphocytes % (Manual) 3.5 L Seg Neutrophils # Man 31.3 H Lymphocytes # (Manual) Monocytes # (Manual) 1.0 H PT INR APTT D-Dimer Heparin Anti-Xa Level 0.99 H ABG pH POC ABG pCO2 POC ABG pO2 131.3 H ABG Hemoglobin 9.2 L ABG Oxyhemoglobin ABG Sodium 131.6 L ABG Potassium ABG Chloride 110.0 H ABG Glucose 168 H Carboxyhemoglobin 0.3 L Sodium Potassium Chloride Carbon Dioxide BUN Creatinine Glucose POC Glucose Lactic Acid Calcium Ionized Calcium Phosphorus Magnesium Lactate Dehydrogenase C-Reactive Protein NT-Pro-B Natriuret Pep Serum Total Protein Total Protein Albumin Qflsi-7-Wuenadpvg Gamma Globulins PEP Interpretation TSH Arterial Blood Glucose 168 H Arterial Blood Ionized Calcium 4.4 L Urine WBC (Auto) Crossmatch 11/05/20 11/05/20 11/05/20 03:37 05:19 18:18 WBC RBC Hgb Hct RDW Seg Neuts % (Manual) Lymphocytes % (Manual) Seg Neutrophils # Man Lymphocytes # (Manual) Monocytes # (Manual) PT INR APTT D-Dimer Heparin Anti-Xa Level ABG pH POC ABG pCO2 POC ABG pO2 ABG Hemoglobin ABG Oxyhemoglobin ABG Sodium ABG Potassium ABG Chloride ABG Glucose Carboxyhemoglobin Sodium Potassium Chloride 109.5 H Carbon Dioxide BUN 55 H Creatinine 2.1 H Glucose 157 H POC Glucose 142 H 124 H Lactic Acid Calcium 7.0 L Ionized Calcium Phosphorus Magnesium Lactate Dehydrogenase C-Reactive Protein NT-Pro-B Natriuret Pep Serum Total Protein Total Protein Albumin Ruizd-4-Diaiscamc Gamma Globulins PEP Interpretation TSH Arterial Blood Glucose Arterial Blood Ionized Calcium Urine WBC (Auto) Crossmatch 11/05/20 11/05/20 11/05/20 19:00 21:20 23:30 WBC RBC Hgb Hct RDW Seg Neuts % (Manual) Lymphocytes % (Manual) Seg Neutrophils # Man Lymphocytes # (Manual) Monocytes # (Manual) PT INR APTT 63.8 H* D-Dimer Heparin Anti-Xa Level ABG pH POC ABG pCO2 POC ABG pO2 ABG Hemoglobin ABG Oxyhemoglobin ABG Sodium ABG Potassium ABG Chloride ABG Glucose Carboxyhemoglobin Sodium Potassium Chloride Carbon Dioxide BUN Creatinine Glucose POC Glucose 156 H Lactic Acid Calcium Ionized Calcium Phosphorus Magnesium Lactate Dehydrogenase C-Reactive Protein NT-Pro-B Natriuret Pep Serum Total Protein Total Protein 4.3 L Albumin 2.1 L Weuww-7-Ginthtris Gamma Globulins PEP Interpretation TSH Arterial Blood Glucose Arterial Blood Ionized Calcium Urine WBC (Auto) Crossmatch 11/06/20 11/06/20 11/06/20 02:54 04:00 04:00 WBC 33.0 H RBC 2.68 L Hgb 7.7 L Hct 23.3 L RDW Seg Neuts % (Manual) 95.0 H Lymphocytes % (Manual) 2.0 L Seg Neutrophils # Man 31.4 H Lymphocytes # (Manual) 0.7 L Monocytes # (Manual) 1.0 H PT INR APTT D-Dimer Heparin Anti-Xa Level ABG pH POC ABG pCO2 POC ABG pO2 116.5 H ABG Hemoglobin 9.7 L ABG Oxyhemoglobin ABG Sodium 134.5 L ABG Potassium 5.0 H ABG Chloride 109.0 H ABG Glucose 165 H Carboxyhemoglobin 0.3 L Sodium Potassium 5.1 H Chloride 108.6 H Carbon Dioxide BUN 62 H Creatinine 2.2 H Glucose 155 H POC Glucose Lactic Acid Calcium 7.3 L Ionized Calcium Phosphorus Magnesium Lactate Dehydrogenase C-Reactive Protein NT-Pro-B Natriuret Pep Serum Total Protein Total Protein Albumin Emued-4-Gyrioztbt Gamma Globulins PEP Interpretation TSH Arterial Blood Glucose 165 H Arterial Blood Ionized Calcium 4.5 L Urine WBC (Auto) Crossmatch 11/06/20 11/06/20 11/06/20 05:17 06:00 17:26 WBC RBC Hgb Hct RDW Seg Neuts % (Manual) Lymphocytes % (Manual) Seg Neutrophils # Man Lymphocytes # (Manual) Monocytes # (Manual) PT INR APTT D-Dimer Heparin Anti-Xa Level ABG pH POC ABG pCO2 POC ABG pO2 ABG Hemoglobin ABG Oxyhemoglobin ABG Sodium ABG Potassium ABG Chloride ABG Glucose Carboxyhemoglobin Sodium Potassium Chloride Carbon Dioxide BUN Creatinine Glucose POC Glucose 147 H 132 H Lactic Acid Calcium Ionized Calcium 4.7 L Phosphorus Magnesium Lactate Dehydrogenase C-Reactive Protein NT-Pro-B Natriuret Pep Serum Total Protein Total Protein Albumin Eelws-9-Kanwzdlin Gamma Globulins PEP Interpretation TSH Arterial Blood Glucose Arterial Blood Ionized Calcium Urine WBC (Auto) Crossmatch 11/06/20 11/07/20 11/07/20 Unknown 04:00 04:00 WBC 28.9 H RBC 2.44 L Hgb 7.1 L Hct 21.2 L RDW 15.4 H Seg Neuts % (Manual) 95.0 H Lymphocytes % (Manual) 3.0 L Seg Neutrophils # Man 27.5 H Lymphocytes # (Manual) 0.9 L Monocytes # (Manual) PT INR APTT D-Dimer Heparin Anti-Xa Level ABG pH POC ABG pCO2 POC ABG pO2 ABG Hemoglobin ABG Oxyhemoglobin ABG Sodium ABG Potassium ABG Chloride ABG Glucose Carboxyhemoglobin Sodium Potassium 5.3 H Chloride 108.2 H Carbon Dioxide BUN 77 H Creatinine 2.4 H Glucose 144 H POC Glucose Lactic Acid Calcium 7.5 L Ionized Calcium Phosphorus Magnesium Lactate Dehydrogenase C-Reactive Protein NT-Pro-B Natriuret Pep Serum Total Protein 4.1 L Total Protein Albumin 2.2 L Wrwne-5-Crnjavkpw 0.5 H Gamma Globulins 0.4 L PEP Interpretation see below H TSH Arterial Blood Glucose Arterial Blood Ionized Calcium Urine WBC (Auto) Crossmatch 11/07/20 11/07/20 11/07/20 04:00 12:06 17:29 WBC RBC Hgb Hct RDW Seg Neuts % (Manual) Lymphocytes % (Manual) Seg Neutrophils # Man Lymphocytes # (Manual) Monocytes # (Manual) PT INR APTT D-Dimer Heparin Anti-Xa Level ABG pH POC ABG pCO2 POC ABG pO2 130.1 H ABG Hemoglobin 7.5 L ABG Oxyhemoglobin ABG Sodium ABG Potassium 5.0 H ABG Chloride 110.0 H ABG Glucose 152 H Carboxyhemoglobin Sodium Potassium Chloride Carbon Dioxide BUN Creatinine Glucose POC Glucose 144 H 117 H Lactic Acid Calcium Ionized Calcium Phosphorus Magnesium Lactate Dehydrogenase C-Reactive Protein NT-Pro-B Natriuret Pep Serum Total Protein Total Protein Albumin Abcnp-9-Ittdciiii Gamma Globulins PEP Interpretation TSH Arterial Blood Glucose 152 H Arterial Blood Ionized Calcium Urine WBC (Auto) Crossmatch 11/08/20 11/08/20 11/08/20 03:38 04:39 04:39 WBC 23.1 H RBC 2.37 L Hgb 6.9 L Hct 20.8 L RDW 15.3 H Seg Neuts % (Manual) 95.5 H Lymphocytes % (Manual) 2.5 L Seg Neutrophils # Man 22.1 H Lymphocytes # (Manual) 0.6 L Monocytes # (Manual) PT INR APTT D-Dimer Heparin Anti-Xa Level ABG pH 7.494 H POC ABG pCO2 POC ABG pO2 111.5 H ABG Hemoglobin 6.7 L ABG Oxyhemoglobin ABG Sodium ABG Potassium 4.9 H ABG Chloride 112.0 H ABG Glucose 153 H Carboxyhemoglobin Sodium Potassium 5.1 H Chloride 111.3 H Carbon Dioxide BUN 86 H Creatinine 2.5 H Glucose 142 H POC Glucose Lactic Acid Calcium 7.6 L Ionized Calcium Phosphorus Magnesium Lactate Dehydrogenase C-Reactive Protein NT-Pro-B Natriuret Pep Serum Total Protein Total Protein Albumin Cucck-5-Hfxyzaqnt Gamma Globulins PEP Interpretation TSH Arterial Blood Glucose 153 H Arterial Blood Ionized Calcium 4.5 L Urine WBC (Auto) Crossmatch 11/08/20 11/08/2011/08/21 11:13 11:15 16:30 WBC RBC Hgb 8.0 L Hct 23.6 L RDW Seg Neuts % (Manual) Lymphocytes % (Manual) Seg Neutrophils # Man Lymphocytes # (Manual) Monocytes # (Manual) PT INR APTT D-Dimer Heparin Anti-Xa Level ABG pH POC ABG pCO2 POC ABG pO2 ABG Hemoglobin ABG Oxyhemoglobin ABG Sodium ABG Potassium ABG Chloride ABG Glucose Carboxyhemoglobin Sodium Potassium Chloride Carbon Dioxide BUN Creatinine Glucose POC Glucose 125 H Lactic Acid Calcium Ionized Calcium Phosphorus Magnesium Lactate Dehydrogenase C-Reactive Protein NT-Pro-B Natriuret Pep Serum Total Protein Total Protein Albumin Fefyo-6-Pfohdhgpe Gamma Globulins PEP Interpretation TSH Arterial Blood Glucose Arterial Blood Ionized Calcium Urine WBC (Auto) Crossmatch See Detail 11/08/20 11/08/20 11/09/20 19:11 22:20 03:21 WBC 19.0 H RBC 2.51 L Hgb 7.5 L Hct 22.2 L RDW 15.3 H Seg Neuts % (Manual) 89.0 H Lymphocytes % (Manual) 6.0 L Seg Neutrophils # Man 16.9 H Lymphocytes # (Manual) 1.1 L Monocytes # (Manual) 1.0 H PT INR APTT D-Dimer Heparin Anti-Xa Level ABG pH POC ABG pCO2 POC ABG pO2 ABG Hemoglobin ABG Oxyhemoglobin ABG Sodium ABG Potassium ABG Chloride ABG Glucose Carboxyhemoglobin Sodium Potassium Chloride Carbon Dioxide BUN Creatinine Glucose POC Glucose 107 H Lactic Acid Calcium Ionized Calcium Phosphorus Magnesium Lactate Dehydrogenase C-Reactive Protein NT-Pro-B Natriuret Pep Serum Total Protein Total Protein 3.8 L Albumin 2.2 L Qkdjx-4-Rwsfrntme Gamma Globulins PEP Interpretation TSH Arterial Blood Glucose Arterial Blood Ionized Calcium Urine WBC (Auto) Crossmatch 11/09/20 11/09/20 11/09/20 03:21 03:21 03:43 WBC RBC Hgb Hct RDW Seg Neuts % (Manual) Lymphocytes % (Manual) Seg Neutrophils # Man Lymphocytes # (Manual) Monocytes # (Manual) PT INR APTT 50.8 H D-Dimer Heparin Anti-Xa Level ABG pH POC ABG pCO2 POC ABG pO2 ABG Hemoglobin ABG Oxyhemoglobin ABG Sodium ABG Potassium ABG Chloride ABG Glucose Carboxyhemoglobin Sodium Potassium Chloride 109.1 H Carbon Dioxide BUN 86 H Creatinine 2.5 H Glucose 140 H POC Glucose 117 H Lactic Acid Calcium 6.9 L Ionized Calcium Phosphorus Magnesium Lactate Dehydrogenase C-Reactive Protein NT-Pro-B Natriuret Pep Serum Total Protein Total Protein Albumin Enihy-8-Qumepwfxh Gamma Globulins PEP Interpretation TSH Arterial Blood Glucose Arterial Blood Ionized Calcium Urine WBC (Auto) Crossmatch 11/09/20 11/09/20 11/09/20 09:22 17:04 22:08 WBC RBC Hgb Hct RDW Seg Neuts % (Manual) Lymphocytes % (Manual) Seg Neutrophils # Man Lymphocytes # (Manual) Monocytes # (Manual) PT INR APTT D-Dimer Heparin Anti-Xa Level ABG pH POC ABG pCO2 POC ABG pO2 ABG Hemoglobin ABG Oxyhemoglobin ABG Sodium ABG Potassium ABG Chloride ABG Glucose Carboxyhemoglobin Sodium Potassium Chloride Carbon Dioxide BUN Creatinine Glucose POC Glucose 111 H 106 H 112 H Lactic Acid Calcium Ionized Calcium Phosphorus Magnesium Lactate Dehydrogenase C-Reactive Protein NT-Pro-B Natriuret Pep Serum Total Protein Total Protein Albumin Smaqg-5-Dkrkkqmpw Gamma Globulins PEP Interpretation TSH Arterial Blood Glucose Arterial Blood Ionized Calcium Urine WBC (Auto) Crossmatch 11/10/20 11/10/20 11/10/20 05:30 05:30 11:50 WBC RBC Hgb 6.6 L Hct 19.9 L* RDW Seg Neuts % (Manual) Lymphocytes % (Manual) Seg Neutrophils # Man Lymphocytes # (Manual) Monocytes # (Manual) PT INR APTT D-Dimer Heparin Anti-Xa Level ABG pH POC ABG pCO2 POC ABG pO2 ABG Hemoglobin ABG Oxyhemoglobin ABG Sodium ABG Potassium ABG Chloride ABG Glucose Carboxyhemoglobin Sodium Potassium Chloride 111.3 H Carbon Dioxide BUN 74 H Creatinine 2.3 H Glucose 119 H POC Glucose 108 H Lactic Acid Calcium 7.1 L Ionized Calcium Phosphorus Magnesium 4.40 H Lactate Dehydrogenase C-Reactive Protein NT-Pro-B Natriuret Pep Serum Total Protein Total Protein Albumin Secux-5-Ciyaimkfm Gamma Globulins PEP Interpretation TSH Arterial Blood Glucose Arterial Blood Ionized Calcium Urine WBC (Auto) Crossmatch 11/10/20 11/10/20 11/10/20 17:50 23:12 23:17 WBC RBC Hgb 9.5 L 9.1 L Hct 28.2 L D 27.5 L RDW Seg Neuts % (Manual) Lymphocytes % (Manual) Seg Neutrophils # Man Lymphocytes # (Manual) Monocytes # (Manual) PT INR APTT D-Dimer Heparin Anti-Xa Level ABG pH POC ABG pCO2 POC ABG pO2 ABG Hemoglobin ABG Oxyhemoglobin ABG Sodium ABG Potassium ABG Chloride ABG Glucose Carboxyhemoglobin Sodium Potassium Chloride Carbon Dioxide BUN Creatinine Glucose POC Glucose 107 H Lactic Acid Calcium Ionized Calcium Phosphorus Magnesium Lactate Dehydrogenase C-Reactive Protein NT-Pro-B Natriuret Pep Serum Total Protein Total Protein Albumin Bgyxy-6-Qpqflcjfs Gamma Globulins PEP Interpretation TSH Arterial Blood Glucose Arterial Blood Ionized Calcium Urine WBC (Auto) Crossmatch 11/11/20 11/11/20 11/11/20 05:16 05:30 08:35 WBC 17.4 H RBC 3.17 L Hgb 9.5 L Hct 29.0 L RDW 16.2 H Seg Neuts % (Manual) Lymphocytes % (Manual) Seg Neutrophils # Man Lymphocytes # (Manual) Monocytes # (Manual) PT INR APTT D-Dimer Heparin Anti-Xa Level ABG pH POC ABG pCO2 POC ABG pO2 ABG Hemoglobin ABG Oxyhemoglobin ABG Sodium ABG Potassium ABG Chloride ABG Glucose Carboxyhemoglobin Sodium Potassium Chloride 107.4 H Carbon Dioxide BUN 64 H Creatinine 2.1 H Glucose 148 H POC Glucose 127 H Lactic Acid Calcium 6.7 L Ionized Calcium Phosphorus Magnesium 3.90 H Lactate Dehydrogenase C-Reactive Protein NT-Pro-B Natriuret Pep Serum Total Protein Total Protein Albumin Xvrro-2-Qciwfzbpf Gamma Globulins PEP Interpretation TSH Arterial Blood Glucose Arterial Blood Ionized Calcium Urine WBC (Auto) Crossmatch 11/11/20 11/11/20 11/11/20 09:14 10:10 11:45 WBC RBC Hgb 9.2 L Hct 27.2 L RDW Seg Neuts % (Manual) Lymphocytes % (Manual) Seg Neutrophils # Man Lymphocytes # (Manual) Monocytes # (Manual) PT INR APTT D-Dimer Heparin Anti-Xa Level ABG pH POC ABG pCO2 POC ABG pO2 ABG Hemoglobin ABG Oxyhemoglobin ABG Sodium 135.8 L ABG Potassium ABG Chloride 111.0 H ABG Glucose 152 H Carboxyhemoglobin Sodium Potassium Chloride Carbon Dioxide BUN Creatinine Glucose POC Glucose 139 H Lactic Acid Calcium Ionized Calcium Phosphorus Magnesium Lactate Dehydrogenase C-Reactive Protein NT-Pro-B Natriuret Pep Serum Total Protein Total Protein Albumin Hobhs-2-Hgkkripsx Gamma Globulins PEP Interpretation TSH Arterial Blood Glucose 152 H Arterial Blood Ionized Calcium 4.2 L Urine WBC (Auto) Crossmatch 11/11/20 11/11/20 11/11/20 14:41 17:09 21:12 WBC RBC Hgb 8.7 L Hct 25.8 L RDW Seg Neuts % (Manual) Lymphocytes % (Manual) Seg Neutrophils # Man Lymphocytes # (Manual) Monocytes # (Manual) PT INR APTT D-Dimer Heparin Anti-Xa Level ABG pH POC ABG pCO2 POC ABG pO2 ABG Hemoglobin ABG Oxyhemoglobin ABG Sodium ABG Potassium ABG Chloride ABG Glucose Carboxyhemoglobin Sodium Potassium Chloride Carbon Dioxide BUN Creatinine Glucose POC Glucose 110 H 115 H Lactic Acid Calcium Ionized Calcium Phosphorus Magnesium Lactate Dehydrogenase C-Reactive Protein NT-Pro-B Natriuret Pep Serum Total Protein Total Protein Albumin Quhcw-1-Lvydsuqbu Gamma Globulins PEP Interpretation TSH Arterial Blood Glucose Arterial Blood Ionized Calcium Urine WBC (Auto) Crossmatch 11/11/20 11/12/20 11/12/20 23:02 03:10 03:38 WBC RBC Hgb Hct RDW Seg Neuts % (Manual) Lymphocytes % (Manual) Seg Neutrophils # Man Lymphocytes # (Manual) Monocytes # (Manual) PT INR APTT D-Dimer Heparin Anti-Xa Level ABG pH POC ABG pCO2 POC ABG pO2 ABG Hemoglobin ABG Oxyhemoglobin ABG Sodium ABG Potassium ABG Chloride ABG Glucose Carboxyhemoglobin Sodium Potassium Chloride 109.8 H Carbon Dioxide BUN 64 H Creatinine 2.0 H Glucose 129 H POC Glucose 109 H 107 H Lactic Acid Calcium 6.7 L Ionized Calcium Phosphorus 2.10 L D Magnesium 3.50 H Lactate Dehydrogenase C-Reactive Protein NT-Pro-B Natriuret Pep Serum Total Protein Total Protein Albumin Kgsxs-6-Jgwtesmzd Gamma Globulins PEP Interpretation TSH Arterial Blood Glucose Arterial Blood Ionized Calcium Urine WBC (Auto) Crossmatch 11/12/20 11/12/20 11/12/20 03:38 11:44 13:49 WBC 15.2 H RBC 2.70 L Hgb 8.1 L Hct 24.3 L RDW 16.0 H Seg Neuts % (Manual) Lymphocytes % (Manual) Seg Neutrophils # Man Lymphocytes # (Manual) Monocytes # (Manual) PT INR APTT D-Dimer Heparin Anti-Xa Level ABG pH POC ABG pCO2 POC ABG pO2 ABG Hemoglobin 8.6 L ABG Oxyhemoglobin ABG Sodium ABG Potassium ABG Chloride 111.0 H ABG Glucose 135 H Carboxyhemoglobin Sodium Potassium Chloride Carbon Dioxide BUN Creatinine Glucose POC Glucose 114 H Lactic Acid Calcium Ionized Calcium Phosphorus Magnesium Lactate Dehydrogenase C-Reactive Protein NT-Pro-B Natriuret Pep Serum Total Protein Total Protein Albumin Gnhhs-6-Yitppwncr Gamma Globulins PEP Interpretation TSH Arterial Blood Glucose 135 H Arterial Blood Ionized Calcium 4.3 L Urine WBC (Auto) Crossmatch Allied health notes reviewed: nursing
[2020-11-12] MEDS: HEPARIN/ 0.45% NACL DRIP 25,000 UNIT/500 ML BAG IV SCH (17:45)
[2020-11-12] MEDS ORDERED: TOTAL PARENTERAL NUTRITION 1,800 ML IV SCH (20:00)
[2020-11-12] MEDS ORDERED: FAT EMULSIONS 20% 250 ML IV SCH (20:00)
[2020-11-12] MEDS: CEFEPIME/NS 2 GM/100 ML 2 GM/100 ML BAG IV SCH (21:29)
[2020-11-13] MEDS: METOPROLOL TARTRATE 5 MG/5 ML INJ IV SCH ×5 (00:55→23:50)
[2020-11-13] MEDS: metroNIDAZOLE/NS 500 MG/100 ML 500 MG/100 ML BAG IV SCH ×3 (01:33→17:24)
[2020-11-13] MEDS: INSULIN REGULAR, HUMAN 100 UNITS/1 ML SUB-Q SCH ×4 (05:04→23:50)
[2020-11-13 05:43] LABS: Hematocrit 22.6 % (35.5-45.6); Hemoglobin 7.8 gm/dl (11.8-15.2)
[2020-11-13] MEDS: LEVOTHYROXINE 100 MCG INJ IV SCH (06:13)
[2020-11-13] MEDS ORDERED: SODIUM PHOSPHATE 15 MMOL in SODIUM CHLORIDE 0.9% 250ML 250 ML IV PRN (09:00)
[2020-11-13 09:11] LABS: Hemoglobin 7.6 gm/dl (11.8-15.2); Mean Corpuscular HGB Conc 33 % (32-34); Mean Corpuscular Volume 88 fl (84-94); Platelet Count 176 K/mm3 (140-440); Red Cell Distribution Width 15.8 % (13.2-15.2)
[2020-11-13] MEDS: PANTOPRAZOLE 40 MG INJ IV SCH ×2 (09:23→22:42)
--- NOTE | 2020-11-13 11:47 | Progress Note ---
Assessment and Plan - Patient Problems (1) Pneumatosis intestinalis of small intestine Current Visit: Yes Status: Acute Plan to address problem: 1) Continue gastric decompression 2) Continue Heparin drip per medicine Subjective Date of service: 11/13/20 Patient Reports: Positive: no new complaints Objective Vital Signs - 12hr 11/13/20 11/13/20 11/13/20 00:00 00:30 00:55 Temperature Pulse Rate 69 64 71 Pulse Rate [ From Monitor] Respiratory 14 17 Rate Blood Pressure 103/61 103/61 103/61 O2 Sat by Pulse 100 100 Oximetry 11/13/20 11/13/20 11/13/20 01:00 01:05 01:30 Temperature Pulse Rate 58 L 62 Pulse Rate [ 69 From Monitor] Respiratory 17 18 23 Rate Blood Pressure 103/61 103/61 O2 Sat by Pulse 100 100 100 Oximetry 11/13/20 11/13/20 11/13/20 02:00 02:30 03:00 Temperature Pulse Rate 64 64 66 Pulse Rate [ From Monitor] Respiratory 21 19 17 Rate Blood Pressure 81/48 123/58 O2 Sat by Pulse 100 100 100 Oximetry 11/13/20 11/13/20 11/13/20 03:27 03:30 03:38 Temperature 99.8 F H Pulse Rate 61 69 Pulse Rate [ From Monitor] Respiratory 22 20 Rate Blood Pressure 110/64 110/64 O2 Sat by Pulse 100 100 Oximetry 11/13/20 11/13/20 11/13/20 04:00 04:30 05:00 Temperature Pulse Rate 70 67 63 Pulse Rate [ 69 From Monitor] Respiratory 27 H 21 22 Rate Blood Pressure 110/64 109/68 106/46 O2 Sat by Pulse 100 100 100 Oximetry 11/13/20 11/13/20 11/13/20 05:16 05:30 06:00 Temperature Pulse Rate 67 63 65 Pulse Rate [ 69 From Monitor] Respiratory 18 20 22 Rate Blood Pressure 106/46 106/46 O2 Sat by Pulse 100 100 100 Oximetry 11/13/20 11/13/20 11/13/20 06:13 06:20 06:30 Temperature Pulse Rate 73 62 Pulse Rate [ From Monitor] Respiratory 21 Rate Blood Pressure 121/67 121/67 O2 Sat by Pulse 99 100 Oximetry 11/13/20 11/13/20 11/13/20 07:00 07:30 07:32 Temperature Pulse Rate 65 66 Pulse Rate [ From Monitor] Respiratory 22 17 Rate Blood Pressure 122/60 121/67 O2 Sat by Pulse 98 97 97 Oximetry 11/13/20 11/13/20 11/13/20 08:00 08:30 09:00 Temperature Pulse Rate 71 70 71 Pulse Rate [ 68 From Monitor] Respiratory 30 H 26 H 25 H Rate Blood Pressure 122/60 113/60 113/60 O2 Sat by Pulse 96 95 97 Oximetry 11/13/20 11/13/20 09:30 10:00 Temperature Pulse Rate 66 64 Pulse Rate [ From Monitor] Respiratory 29 H 25 H Rate Blood Pressure 112/61 112/61 O2 Sat by Pulse 98 99 Oximetry - Abdomen soft, bowel sounds hypoactive (Seems appropriately TTP. Serous fluid leaking from a ? drain site in the left abdomen.) - Labs 11/13/20 08:16 11/13/20 05:30 Diabetes panel 11/13/20 Range/Units 05:30 Sodium 141 (137-145) mmol/L Potassium 3.7 (3.6-5.0) mmol/L Chloride 109.4 H (98-107) mmol/L Carbon Dioxide 25 (22-30) mmol/L BUN 65 H (9-20) mg/dL Creatinine 2.0 H (0.8-1.3) mg/dL Glucose 137 H (75-100) mg/dL Calcium 7.0 L (8.4-10.2) mg/dL Calcium panel 11/13/20 Range/Units 05:30 Calcium 7.0 L (8.4-10.2) mg/dL Phosphorus 1.60 L D (2.5-4.5) mg/dL Pituitary panel 11/13/20 Range/Units 05:30 Sodium 141 (137-145) mmol/L Potassium 3.7 (3.6-5.0) mmol/L Chloride 109.4 H (98-107) mmol/L Carbon Dioxide 25 (22-30) mmol/L BUN 65 H (9-20) mg/dL Creatinine 2.0 H (0.8-1.3) mg/dL Glucose 137 H (75-100) mg/dL Calcium 7.0 L (8.4-10.2) mg/dL Adrenal panel 11/13/20 Range/Units 05:30 Sodium 141 (137-145) mmol/L Potassium 3.7 (3.6-5.0) mmol/L Chloride 109.4 H (98-107) mmol/L Carbon Dioxide 25 (22-30) mmol/L BUN 65 H (9-20) mg/dL Creatinine 2.0 H (0.8-1.3) mg/dL Glucose 137 H (75-100) mg/dL Calcium 7.0 L (8.4-10.2) mg/dL
--- NOTE | 2020-11-13 11:57 | Progress Note ---
Assessment and Plan Assessment and plan: This is a 70-year-old male with hypertension and hypothyroidism who was admitted with a CVA (neurology consulted, stroke pathway initiated),CHF, bilateral pneumonia, COVID 19 PUI and acute hypoxic respiratory failure. 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 Acute hypoxic respiratory failure Acute on chronic systolic heart failure with exacerbation Pneumonia Urinary tract infection Acute kidney injury Left atrial appendage thrombus Anemia s/p 5 units PRBC transfusion Hyperchloremia Hypophosphatemia Leukocytosis Cardiomyopathy Left bundle branch block Hypertension Hypothyroidism -CCM, cardiology, neurology, vascular surgery, nephrology,general surgery, infectious disease, hematology/oncology, GI, surgery, WOCN, ST/PT/OT consulted, appreciate recommendations -10/23 CT head shows no acute findings, periventricular areas of low attenuation suggestive of nonspecific white matter change, concern for acute ischemic change -10/23 CTA chest shows findings suggestive of mild congestive failure, negative for pulmonary embolism -10/23 CT head with contrast shows no indication of intracranial stenosis or large vessel occlusion -10/23 CTA neck shows no indication of hemodynamically significant stenosis the carotid bifurcations are also clear, right larger than left pleural effusion, remote ACDF at C5-C6 and C6-C7 levels, multifocal neuroforaminal narrowing, mild central canal stenosis evident at C5-C6 level -10/23 bilateral carotid ultrasound shows no significant stenosis -10/23 echocardiogram shows left ventricle moderately dilated, borderline concentric left ventricular hypertrophy, impaired LV relaxation, moderate left ventricular diastolic dysfunction, left ventricular end-diastolic pressure is moderately elevated, no left ventricle thrombus noted in the study, mildly dilated right ventricle, mildly dilated left atrium, saline bubble contrast intravenous injection does not demonstrate PFO, the ventricle systolic function is mild to moderately decreased, LVEF is 35 to 40% with hypokinesis of the septal and inferior wall, moderate to severe hypokinesis in the inferior wall, moderate hypokinesis of the mid inferior septal wall, moderate hypokinesis of the apical septal wall, trace TR, RVSP is 23 mmHg. -10/25 MRI Brain shows acute infarction in the left middle cerebral artery without hemorrhagic conversion -11/02 bilateral lower extremity Doppler ultrasound shows occlusive thrombus in the peroneal vein -11/02 s/p right lower extremity emergent embolectomy with right 4 compartment fasciotomy with vascular surgery -11/03 MRI brain shows interval evolutionary changes of the patchy areas of infarction along the left trigonal region, development of 7 mm focus of acute infarction involving more superior left frontoparietal junction -11/04 abdominal x-ray shows persistent abdominal distention -11/04 renal ultrasound shows findings of medical renal disease without other significant sonographic abnormality -11/05 abdominal x-ray shows increasing bowel distention appears to be predominantly in the colon, moderate/large chronic stool with no free air -11/05 CT head shows decreased attenuation along the superior parietal lobe compatible with evolving infarction without intracranial hemorrhage or other acute abnormality/interval changes -11/07 abdominal x-ray shows abundant fecal material noted throughout the colon and rectal vault consistent with history of constipation which are minimally improved when compared to 11/05, gas-filled and distended bowel loops are similar to prior exam -11/07 CT head shows evolving infarcts involving the left temporoparietal to the left frontoparietal lobes since 11/05 -11/08 abdomen/pelvis CT shows mild diffuse dilation of small bowel loops and proximal colon with evidence of pneumatosis concerning for ischemic bowel, small ascites but no evidence of free air or fluid collection, diffuse ileus also suspected, mild cardiomegaly with trace pericardial effusion, few tiny gallston es in the gallbladder with out abnormal dilation or wall thickening. -11/08 s/p exploratory laparotomy, small bowel resection; intaop findings: 1. Segmental infarcts of distal small intestine with pneumatosis intestinalis present - approximately 30 cm of small bowel resected, 2. SMA with strongly pal pable pulse., 3. Large stool burden in left colon -11/10 Limited echocardiogram shows left ventricular systolic function moderately decreased, LVEF 35 to 40%, mild concentric LVH, trace pericardial effusion adjacent to the right ventricle, pulmonary valve is normal in structure, tricuspid valve is normal in structure -11/10 s/p reexploration of abdomen, appendectomy, small bowel anastomosis and surgeon found all viable small and large bowel with well-perfused anastomosis by ICG fluorescence imaging. EARNESTINE drain was placed. -IV antibiotics -Aspirin 325, Lipitor, BB (on hold per surgery as pt is strict NPO) -HIT panel negative -SSI -Continue home Synthroid, converted to IV -Hold antihypertensive regimen in setting of hypotension recent use of vasopressors -Transfuse for hbg <7 -TPN -BiPAP nightly and as needed -Duculox suppository -Trend CBC, BMP DVT/GI prophylaxis: SCDs to bilateral extremities while in bed, Protonix, heparin gtt Disposition: ICU The high probability of a clinically significant, sudden or life threatening deterioration of the [cardiac, respiratory and hemodynamic] system(s) required my full and direct attention, intervention and personal management. The aggregate critical care time was [32] minutes. This time is in addition to time spent performing reported procedures but includes the following: [x] Data Review and interpretation [x] Patient assessment and monitoring of vital signs [x] Documentation [x] Medication orders and management History Interval history: This is a 70-year-old male with hypertension and hypothyroidism who presented to the emergency department on 10/23 with confusion, weakness, exercise intolerance, shortness of breath on exertion, increased bedbound status and decreased oral intake with progressively worsened over the past 2 days prior to presentation. Patient was found to have clinical symptoms consistent with a CVA (neurology consulted, stroke pathway initiated) CHF, bilateral pneumonia, and acute hypoxic respiratory failure. Patient was initiated coronavirus, pneumonia and CHF protocol. Cardiology was consulted in the emergency department. 10/24/2020: Acute CVA with right hemiparesis , PT and OT 10/25/2020: Acute CVA with right hemiplegia, Rehab consult requested, Ejection fraction is 35 to 40% 10/26/2020:patient with acute CVA and right-sided hemiparesis, PT evaluated the patient and recommended acute rehab, Case management processing the request, Possible discharge in 1 to 2 days if stable 10/27/2020: patient is clinically stable, awaiting rehab/SNF placement. MAXIMO castillo per Case management., Neuro recommend KELLY[possible embolic CVA] follow KELLY 10/28/20: patient is doing slightly better. No new complain. Clinically stable, Patient is going for KELLY today., DC planning to rehab/SNF when cleared by neurology., DC planning per case management 10/29/20: patient is doing slightly better. No new complain. Clinically stable, continue physical therapy occupational therapy, Patient is going for KELLY on Sunday, DC planning to rehab/SNF after KELLY on Sunday, DC planning per case management 10/30/20: patient is sitting in chair. No new complain. Clinically stable, continue physical therapy occupational therapy, Patient is going for KELLY on Sunday, Awaiting DC planning to rehab/SNF after KELLY on Sunday. 10/31/20: patient is seen and examined. No new complain. Clinically stable, continue physical therapy occupational therapy., Patient is going for KELLY on Sunday., Awaiting DC planning to rehab/SNF after KELLY on Sunday. 11/01/20: Patient is seen and examined, Patient with acute CVA and right-sided hemiparesis. Patient is evaluated by PT and recommended acute rehab Patient is going for KELLY today, Patient is waiting for DC planning to rehab/SNF after KELLY. research worker encyclopedia is working on discharge planning. Patient has chosen [facility] and awaiting authorization. 11/02/2020. KELLY revealed left atrial appendage thrombus. Mildly dilated left ventricle with mild left ventricular hypertrophy with moderate global left ventricular hypokinesis with EF of 40 to 45%. Anticoagulation per cardiology recommendations. Physical therapy recommendations for acute rehab. 11/03/2020. Patient appears to have worsening aphasia and worsening right-sided weakness today per neurology. MRI brain stat. Leukocytosis likely leukemoid reaction from compartment syndrome. Patient is s/p right lower extremity thombectomy with 4 compartment fasciotomy yesterday. Bleeding from incisions over night. Consider ID consultation. Start empiric antibiotics. 11/04/2020. Patient decompensated yesterday evening with hypotension and worsening mental status. Patient was started on vasopressors and intubated. Patient is currently intubated and on fentanyl for sedation. Patient with worsening leukocytosis. Lactic acidosis likely secondary to compartment syndrome. Patient is s/p right lower extremity thombectomy with 4 compartment fasciotomy on 11/02/2020. Levaquin started empirically yesterday. ID consultation today. Patient also with worsening creatinine secondary to acute kidney injury. 11/05/2020. Patient attempted to pull out his ETT while I was examining him. Continue restraints for safety. Patient did manage to pull out his [place] [address] and now has hematuria. We will irrigate the bladder and monitor closely patient is on anticoagulation with IV heparin. Continue Levophed drip to maintain MAP >65. Patient currently with mechanical ventilation AC mode rate of 12, tidal volume 500, FiO2 30% and a PEEP of 6. Continue fentanyl for sedation. Consult hematology hypercoagulable state given the arterial and venous thrombi. 11/06/2020. Hematology ordered argatroban and steroid pulse therapy. Follow work-up to rule out HIT. Follow-up pF4 Ab testing, Hgb electrophoresis, cardiolipin ab. Continue Levophed drip to maintain MAP >65. Patient currently with mechanical ventilation AC mode rate of 12, tidal volume 500, FiO2 30% and a PEEP of 6. Continue fentanyl for sedation. Continue antibiotics of cefepime and vancomycin. Sputum, blood and urine cultures are negative. Continue restraints for safety. 11/07/2020. Continue steroid pulse therapy per hematology recommendations. Argatroban on hold for GI bleeding and hematuria. Follow-up HIT panel and pF4 Ab testing, Hgb electrophoresis, cardiolipin ab. Continue Levophed drip to maintain MAP >65. Patient currently with mechanical ventilation AC mode rate of 12, tidal volume 500, FiO2 30% and a PEEP of 6. Continue fentanyl for sedation. Continue antibiotics of cefepime and vancomycin. Sputum, blood and urine cultures are negative. Continue restraints for safety. 11/08: CT abd/pelvis obtained today is concerning for ischemic bowels, surgery was consulted. This morning patient was on CPAP trial 03/30 at the time my examination patient is on vasopressor support with Levophed and his HIT panel is pending. He was sedated on 1 mcg of fentanyl. Lab work this morning shows leukocytosis, anemia (transfuse 1 unit PRBC), hyperkalemia (received D50 and insulin), hypochloremia and increasing BUN/creatinine. 11/09: S/p ex lap and small bowel resection on 11/08 with surgery, patient was restarted argatroban drip per surgery, HIT panel negative. CCM will start on low-dose heparin drip. Patient was given 2 g of calcium for his K 5 by nephrology. Surgery plans to return to the OR tomorrow for reexploration with possible anastomosis and abdominal closure. At the time of my examination he is sedated on propofol, fentanyl and vasopressor support with Levophed. Patient is on assist control tidal volume 500, rate 18, PEEP of 6, FiO2 25%. 11/10: Patient noted to be anemic today, PRBC transfusion ordered. Patient has 2 units ready for OR, per RN hem/onc is requesting 2 units of PRBC to be transfused. Will obtain post transfusion h/h. Planned for OR today. At the time of my examination he is sedated on propofol, fentanyl and vasopressor support with Levophed. Patient is on assist control tidal volume 500, rate 12, PEEP of 6, FiO2 25%. Pericardial effusion noted as incidental finding with imaging and cardio will conduct a limited echo to quantify amount. 11/11: Patient was taken to the OR for reexploration of abdomen, appendectomy, small bowel anastomosis and surgeon found all viable small and large bowel with well-perfused anastomosis by ICG fluorescence imaging yesterday and a EARNESTINE drain was placed. AM BMP pending, CBC stable. Patient still continues to ooze at fasciotomy site and MLA dressing. RN to change dressings. Sedated with fentanyl and on levophed (RN to attempt to titrate off as tolerated) and on AC TV 500,R12,Peep 6 and 25%FiO2. Remains on heparin gtt. CPAP trial today and LA will be obtained 11/12: Leukocytosis and kidney function tests continue to improve. Patient remains on TPN with NG tube to wall suction. Overnight the patient was agitated and removed NG tube and EARNESTINE drain, NG tube replaced. RN reported patient had a bowel movement late this morning. Patient remains on ventilator support but is on a CPAP trial at time of examination. [facility] plans to extubate today. 11/13: Patient was extubated yesterday. He has hypomagnesemia which was repleted. Patient remains intubated and NG tube to low wall suction. Hospitalist Physical - Constitutional Vitals: Temp Pulse Resp BP Pulse Ox 99.8 F H 64 25 H 112/61 99 11/13/20 03:27 11/13/20 10:00 11/13/20 10:00 11/13/20 10:00 11/13/20 10:00 General appearance: Present: no acute distress, other - EENT Eyes: Present: PERRL, EOM intact ENT: poor dentition - Neck Neck: Present: normal ROM - Respiratory Respiratory effort: normal Respiratory: bilateral: diminished - Cardiovascular Rhythm: regular Heart Sounds: Present: S1 & S2. Absent: systolic murmur, diastolic murmur - Extremities Extremities: no ischemia, pulses intact, pulses symmetrical, normal temperature, normal color Extremity abnormal: edema Peripheral Pulses: within normal limits - Abdominal General gastrointestinal: soft, non-tender, non-distended, hypoactive bowel sounds - Integumentary Integumentary: Present: warm, dry - Psychiatric Psychiatric: cooperative - Allied Health Allied health notes reviewed: nursing, RT HEART Score - HEART Score Troponin: Troponin T 0.026 ng/mL (0.00-0.029) 10/23/20 16:39 Results - Labs CBC & Chem 7: 11/13/20 08:16 11/13/20 05:30 Labs: Laboratory Last Values WBC 12.8 K/mm3 (4.5-11.0) H 11/13/20 08:16 RBC 2.60 M/mm3 (3.65-5.03) L 11/13/20 08:16 Hgb 7.6 gm/dl (11.8-15.2) L 11/13/20 08:16 Hct 23.0 % (35.5-45.6) L 11/13/20 08:16 MCV 88 fl (84-94) 11/13/20 08:16 MCH 29 pg (28-32) 11/13/20 08:16 MCHC 33 % (32-34) 11/13/20 08:16 RDW 15.8 % (13.2-15.2) H 11/13/20 08:16 Plt Count 176 K/mm3 (140-440) 11/13/20 08:16 Lymph % (Auto) 27.8 % (13.4-35.0) 10/23/20 13:32 Dougherty % (Auto) 6.0 % (0.0-7.3) 10/23/20 13:32 Eos % (Auto) 1.6 % (0.0-4.3) 10/23/20 13:32 Baso % (Auto) 0.7 % (0.0-1.8) 10/23/20 13:32 Lymph # (Auto) 1.5 K/mm3 (1.2-5.4) 10/23/20 13:32 Dougherty # (Auto) 0.3 K/mm3 (0.0-0.8) 10/23/20 13:32 Eos # (Auto) 0.1 K/mm3 (0.0-0.4) 10/23/20 13:32 Baso # (Auto) 0.0 K/mm3 (0.0-0.1) 10/23/20 13:32 Add Manual Diff Complete 11/09/20 03:21 Total Counted 100 11/09/20 03:21 Seg Neutrophils % Front Office Java Developer 11/09/20 03:21 Seg Neuts % (Manual) 89.0 % (40.0-70.0) H 11/09/20 03:21 Lymphocytes % (Manual) 6.0 % (13.4-35.0) L 11/09/20 03:21 Monocytes % (Manual) 5.0 % (0.0-7.3) 11/09/20 03:21 Metamyelocytes % 1.0 % 11/04/20 04:00 Nucleated RBC % Not Reportable 11/09/20 03:21 Seg Neutrophils # 3.4 K/mm3 (1.8-7.7) 10/23/20 13:32 Seg Neutrophils # Man 16.9 K/mm3 (1.8-7.7) H 11/09/20 03:21 Band Neutrophils # 0.0 K/mm3 11/09/20 03:21 Lymphocytes # (Manual) 1.1 K/mm3 (1.2-5.4) L 11/09/20 03:21 Abs React Lymphs (Man) 0.0 K/mm3 11/09/20 03:21 Monocytes # (Manual) 1.0 K/mm3 (0.0-0.8) H 11/09/20 03:21 Eosinophils # (Manual) 0.0 K/mm3 (0.0-0.4) 11/09/20 03:21 Basophils # (Manual) 0.0 K/mm3 (0.0-0.1) 11/09/20 03:21 Metamyelocytes # 0.0 K/mm3 11/09/20 03:21 Myelocytes # 0.0 K/mm3 11/09/20 03:21 Promyelocytes # 0.0 K/mm3 11/09/20 03:21 Blast Cells # 0.0 K/mm3 11/09/20 03:21 WBC Morphology Not Reportable 11/09/20 03:21 Hypersegmented Neuts Not Reportable 11/09/20 03:21 Hyposegmented Neuts Not Reportable 11/09/20 03:21 Hypogranular Neuts Not Reportable 11/09/20 03:21 Smudge Cells Not Reportable 11/09/20 03:21 Toxic Granulation Not Reportable 11/09/20 03:21 Toxic Vacuolation Not Reportable 11/09/20 03:21 Dohle Bodies Not Reportable 11/09/20 03:21 Pelger-Huet Anomaly Not Reportable 11/09/20 03:21 Demario Rods Not Reportable 11/09/20 03:21 Platelet Estimate Consistent w auto 11/09/20 03:21 Clumped Platelets Not Reportable 11/09/20 03:21 Plt Clumps, EDTA Not Reportable 11/09/20 03:21 Large Platelets Not Reportable 11/09/20 03:21 Giant Platelets Not Reportable 11/09/20 03:21 Platelet Satelliting Not Reportable 11/09/20 03:21 Plt Morphology Comment Not Reportable 11/09/20 03:21 RBC Morphology Not Reportable 11/09/20 03:21 Dimorphic RBCs Not Reportable 11/09/20 03:21 Polychromasia Not Reportable 11/09/20 03:21 Hypochromasia 1+ 11/09/20 03:21 Poikilocytosis Not Reportable 11/09/20 03:21 Anisocytosis 1+ 11/09/20 03:21 Microcytosis Not Reportable 11/09/20 03:21 Macrocytosis Not Reportable 11/09/20 03:21 Spherocytes Not Reportable 11/09/20 03:21 Pappenheimer Bodies Not Reportable 11/09/20 03:21 Sickle Cells Not Reportable 11/09/20 03:21 Target Cells Not Reportable 11/09/20 03:21 Tear Drop Cells Not Reportable 11/09/20 03:21 Ovalocytes Not Reportable 11/09/20 03:21 Helmet Cells Not Reportable 11/09/20 03:21 [place] Bodies Not Reportable 11/09/20 03:21 [place] Rings Not Reportable 11/09/20 03:21 Caryn Cells Not Reportable 11/09/20 03:21 Bite Cells Not Reportable 11/09/20 03:21 Crenated Cell Not Reportable 11/09/20 03:21 Elliptocytes Not Reportable 11/09/20 03:21 Acanthocytes (Spur) Not Reportable 11/09/20 03:21 Rouleaux Not Reportable 11/09/20 03:21 Hemoglobin C Crystals Not Reportable 11/09/20 03:21 Schistocytes Not Reportable 11/09/20 03:21 Malaria parasites Not Reportable 11/09/20 03:21 Lico Bodies Not Reportable 11/09/20 03:21 Hem Pathologist Commnt No 11/09/20 03:21 PT 16.2 Sec. (12.2-14.9) H 11/02/20 19:55 INR 1.30 (0.87-1.13) H 11/02/20 19:55 APTT 50.8 Sec. (24.2-36.6) H 11/09/20 03:21 D-Dimer 4139.61 ng/mlDDU (0-234) H 10/23/20 18:23 Heparin Anti-Xa Level 0.25 U.I./ml (0.3-0.7) L 11/12/20 17:11 Heparin Anti-Xa, Unfract Negative (Negative) 11/06/20 Unknown ABG pH 7.401 (7.320-7.450) 11/12/20 13:49 POC ABG pCO2 38.2 mmHg (32.0-48.0) 11/12/20 13:49 POC ABG pO2 100.6 mmHg (83-108) 11/12/20 13:49 POC ABG HCO3 23.2 11/12/20 13:49 ABG O2 Saturation 97.9 (0-100) 11/12/20 13:49 POC ABG Base Excess -1.4 11/12/20 13:49 ABG Hemoglobin 8.6 (12.0-17.5) L 11/12/20 13:49 ABG Oxyhemoglobin 96.5 (94-98) 11/12/20 13:49 ABG Methemoglobin 0.3 (0.0-1.5) 11/12/20 13:49 ABG Sodium 136.4 mmol/L (136.0-145.0) 11/12/20 13:49 ABG Potassium 3.9 mmol/L (3.40-4.50) 11/12/20 13:49 ABG Chloride 111.0 mmol/L (98-107) H 11/12/20 13:49 ABG Glucose 135 mg/dL (65-95) H 11/12/20 13:49 Carboxyhemoglobin 1.1 (0.5-1.5) 11/12/20 13:49 FiO2 % 25.0 11/12/20 13:49 Sodium 141 mmol/L (137-145) 11/13/20 05:30 Potassium 3.7 mmol/L (3.6-5.0) 11/13/20 05:30 Chloride 109.4 mmol/L (98-107) H 11/13/20 05:30 Carbon Dioxide 25 mmol/L (22-30) 11/13/20 05:30 Anion Gap 10 mmol/L 11/13/20 05:30 BUN 65 mg/dL (9-20) H 11/13/20 05:30 Creatinine 2.0 mg/dL (0.8-1.3) H 11/13/20 05:30 Estimated GFR 40 ml/min 11/13/20 05:30 BUN/Creatinine Ratio 33 % 11/13/20 05:30 Glucose 137 mg/dL (75-100) H 11/13/20 05:30 POC Glucose 116 mg/dL (70-105) H 11/13/20 05:09 Lactic Acid 0.90 mmol/L (0.7-2.0) 11/11/20 13:57 Calcium 7.0 mg/dL (8.4-10.2) L 11/13/20 05:30 Ionized Calcium 4.7 mg/dL (4.8-5.6) L 11/06/20 06:00 Phosphorus 1.60 mg/dL (2.5-4.5) L D 11/13/20 05:30 Magnesium 3.10 mg/dL (1.7-2.3) H 11/13/20 05:30 Ferritin 238.5 ng/mL (30.0-300.0) 10/23/20 18:23 Total Bilirubin 0.50 mg/dL (0.1-1.2) 11/08/20 19:11 Direct Bilirubin < 0.2 mg/dL (0-0.2) 11/08/20 19:11 Indirect Bilirubin 0.3 mg/dL 11/08/20 19:11 AST 21 units/L (5-40) 11/08/20 19:11 ALT 27 units/L (7-56) 11/08/20 19:11 Alkaline Phosphatase 41 units/L (35-129) 11/08/20 19:11 Lactate Dehydrogenase 334 units/L (91-180) H 10/23/20 18:23 Troponin T 0.026 ng/mL (0.00-0.029) 10/23/20 16:39 C-Reactive Protein 8.30 mg/dL (0.00-1.30) H 11/04/20 13:01 NT-Pro-B Natriuret Pep 5806 pg/mL (0-900) H 10/23/20 13:32 Serum Total Protein 4.1 g/dL (6.1-8.1) L 11/06/20 Unknown Total Protein 3.8 g/dL (6.3-8.2) L 11/08/20 19:11 Albumin 2.2 g/dL (3.9-5) L 11/08/20 19:11 Albumin/Globulin Ratio 1.4 % 11/08/20 19:11 Pjjep-0-Dokjrijfb 0.5 g/dL (0.2-0.3) H 11/06/20 Unknown Jdrdf-9-Fvtfegmmb 0.7 g/dL (0.5-0.9) 11/06/20 Unknown Beta Globulins 0.2 g/dL (0.2-0.5) 11/06/20 Unknown Gamma Globulins 0.4 g/dL (0.8-1.7) L 11/06/20 Unknown Abnorm Protein Band 1 see below 11/06/20 Unknown PEP Interpretation see below H 11/06/20 Unknown Triglycerides 63 mg/dL (2-149) 11/10/20 05:30 Cholesterol 139 mg/dL (50-199) 10/24/20 09:29 LDL Cholesterol Direct 87 mg/dL (50-130) 10/24/20 09:29 HDL Cholesterol 46 mg/dL (40-59) 10/24/20 09:29 Cholesterol/HDL Ratio 3.02 % 10/24/20 09:29 Serotonin Release Assay See scanned result 11/06/20 Unknown Procalcitonin 0.99 ng/mL (<0.15) 11/03/20 21:14 TSH 6.540 mlU/mL (0.270-4.200) H 10/23/20 18:23 TSH 7.100 mlU/mL (0.270-4.200) H 10/23/20 18:23 Free T4 1.33 ng/dL (0.76-1.46) 10/23/20 18:23 Arterial Blood Glucose 135 mg/dL (65-95) H 11/12/20 13:49 Arterial Blood Ionized Calcium 4.3 mg/dL (4.6-5.3) L 11/12/20 13:49 Urine Color Yellow (Yellow) 11/04/20 11:00 Urine Turbidity Hazy (Clear) 11/04/20 11:00 Urine pH 5.0 (5.0-7.0) 11/04/20 11:00 Ur Specific [place] 1.017 (1.003-1.030) 11/04/20 11:00 Urine Protein 30 mg/dl mg/dL (Negative) 11/04/20 11:00 Urine Glucose (UA) 50 mg/dL (Negative) 11/04/20 11:00 Urine Ketones Neg mg/dL (Negative) 11/04/20 11:00 Urine Blood Neg (Negative) 11/04/20 11:00 Urine Nitrite Neg (Negative) 11/04/20 11:00 Urine Bilirubin Neg (Negative) 11/04/20 11:00 Urine Urobilinogen < 2.0 mg/dL (<2.0) 11/04/20 11:00 Ur Leukocyte Esterase Tr (Negative) 11/04/20 11:00 Urine WBC (Auto) 19.0 /HPF (0.0-6.0) H 11/04/20 11:00 Urine RBC (Auto) 3.0 /HPF (0.0-6.0) 11/04/20 11:00 U Epithel Cells (Auto) < 1.0 /HPF (0-13.0) 11/04/20 11:00 Urine Mucus Few /HPF 11/04/20 11:00 Urine Eosinophils None seen (None Seen) 11/04/20 12:50 Urine Creatinine < 4.2 mg/dL (0.1-20.0) 11/04/20 12:50 Urine Sodium 10 mmol/L 11/04/20 12:50 Random Vancomycin 10.7 ug/mL (0-40.0) 11/08/20 04:39 Heparin-induced Plt Ab Negative (Negative) 11/06/20 Unknown UF Heparin High Dose 0 % Release 11/06/20 Unknown DYLAN UFH Low Dose 0.1 0 % Release 11/06/20 Unknown DYLAN UFH Low Dose 0.5 0 % Release 11/06/20 Unknown Cardiolipid IgG Ab <14 GPL (<=14) 11/06/20 Unknown Cardiolipid IgA Ab <11 APL (<=11) 11/06/20 Unknown Cardiolipid IgM Ab <12 MPL (<=12) 11/06/20 Unknown Coronavirus (PCR) Negative (Negative) 10/24/20 09:57 Blood Type O POSITIVE 11/08/20 11:15 Antibody Screen Negative 11/08/20 11:15 Crossmatch See Detail 11/08/20 11:15 Winkler/IV: Voiding Method Indwelling Catheter Active Medications - Current Medications Current Medications: Generic Name Dose Route Start Last Admin Trade Name Freq PRN Reason Stop Dose Admin Bisacodyl 10 mg 11/08/20 22:00 11/13/20 09:23 Bisacodyl 10 Mg Rect Supp PA 10 mg BID ALEX Administration Dextrose 50 ml 11/08/20 08:04 Dextrose 50% In Water (25gm) 50 Ml Syringe IV Q30MIN PRN Hypoglycemia Protocol Fentanyl 50 mcg 11/03/20 16:46 11/11/20 13:03 Fentanyl 100 Mcg/2 Ml Inj IV 50 mcg Q10MIN PRN Administration ANALGESIA Hydromorphone HCl 1 mg 11/11/20 13:35 Hydromorphone 1 Mg/1 Ml Inj IV Q4H PRN Pain , Severe (7-10) Hydrophilic Ointment 1 applic 11/03/20 16:46 Lip Therapy Vaseline TP Q2HR PRN Dry Lips Fentanyl Citrate 2,000 mcg in 100 mls @ 4.86 mls/hr 11/03/20 17:24 11/12/20 19:21 Fentanyl Drip Premix IV 0 mcg/kg/hr TITR ALEX 0 mls/hr Titration Protocol 1 MCG/KG/HR NORepinephrine/NS 8 MG-250 ML 8 mg in 250 mls @ 3.75 mls/hr 11/03/20 18:00 11/11/20 12:20 Norepinephrine/Ns 8 Mg-250 Ml (Double Conc) IV 0 mcg/min TITRATE ALEX 0 mls/hr Titration Protocol 2 MCG/MIN Cefepime HCl 2 gm in 100 mls @ 200 mls/hr 11/08/20 22:00 11/12/20 21:29 Cefepime/Ns 2 Gm/100 Ml IV 11/14/20 22:29 200 mls/hr Q24H ALEX Administration Protocol Propofol 1,000 mg in 100 mls @ 3.126 mls/hr 11/08/20 17:00 11/11/20 04:00 Diprivan 10 Mg/Ml IV 0 mcg/kg/min TITR ALEX 0 mls/hr Titration Protocol 5 MCG/KG/MIN Metronidazole 500 mg in 100 mls @ 100 mls/hr 11/08/20 17:00 11/13/20 09:31 Flagyl 500 Mg/100 Ml IV 11/14/20 17:59 100 mls/hr Q8H ALEX Administration Protocol Heparin Sodium/Sodium Chloride 25,000 unit in 500 mls @ 30 mls/hr 11/09/20 13:00 11/12/20 18:03 Heparin/ 0.45% Nacl-25,000 Unit/500 Ml IV 1,000 units/hr TITR ALEX 20 mls/hr Titration Protocol 1,500 UNITS/HR Amino Acids/Electrolytes/Dextrose 1,800 mls @ 75 mls/hr 11/12/20 20:00 11/12/20 21:01 Tpn Adult IV 11/13/20 19:59 75 mls/hr DAILY@1999 [facility] Administration Protocol Amino Acids/Electrolytes/Dextrose 1,800 mls @ 75 mls/hr 11/13/20 20:00 Tpn Adult IV 11/14/20 19:59 DAILY@1999 [facility] Protocol Insulin Human Regular 0 units 11/12/20 12:00 11/13/20 05:04 Insulin Regular, Human 100 Units/1 Ml SUB-Q Not Given Q6HR [facility] Protocol Levothyroxine Sodium 75 mcg 11/09/20 06:00 11/13/20 06:13 Levothyroxine 100 Mcg Inj IV 75 mcg DAILY@0600 [facility] Administration Metoprolol Tartrate 5 mg 11/12/20 12:00 11/13/20 06:13 Metoprolol Tartrate 5 Mg/5 Ml Inj IV 5 mg Q6HR ALEX Administration Multi-Ingred Cream/Lotion/Oil/Oint 1 applic 11/03/20 16:46 Mineral Oil/Petrolatum, White Ophth Oint 3.5 Gm OU Q4HR PRN Dry Eye(s) Ondansetron HCl 4 mg 10/23/20 20:00 11/07/20 23:09 Ondansetron 4 Mg/2 Ml Inj IV 4 mg Q8H PRN Administration Nausea And Vomiting Pantoprazole Sodium 40 mg 11/07/20 22:00 11/13/20 09:23 Pantoprazole 40 Mg Inj IV 40 mg BID ALEX Administration Sodium Chloride 10 ml 10/23/20 20:00 11/13/20 00:56 Sodium Chloride 0.9% 10 Ml Flush Syringe IV 10 ml PRN PRN Administration LINE FLUSH Nutrition/Malnutrition Assess - Dietary Evaluation Nutrition/Malnutrition Findings: Nutrition Notes Start: 10/24/20 11:33 Freq: Status: Active Protocol: Document 11/13/20 09:38 LP (Rec: 11/13/20 09:46 LP [id number]) Nutrition Notes Initial or Follow up Reassessment Current Diagnosis Acute Kidney Injury,Sepsis, Hypertension,Heart Failure, Respiratory Failure,Stroke Other Pertinent Diagnosis post op ileus Current Diet TPN at 75ml/hr Labs/Tests K 3.7 Phos 1.6 Pertinent Medications 15mmol phos Height 5 ft 11 in Weight 108.5 kg [place] Body Weight (kg) 78.18 BMI 33.3 Weight Status Overweight Subjective/Other Information CPN day 4. Possible trickle feeds once bowel function returns. Percent of energy/protein needs met: 100%/96% Burn Absent Trauma Absent GI Symptoms Other Current % PO Negligible Minimum of two criteria No Fluid Accumulation Moderate to Severe (severe) #3 Nutrition Diagnosis Increased nutrient needs ( specify in comment below) Comments: Protein Etiology Wound healing As Evidenced by Signs and Symptoms Pt with leg wounds #2 Nutrition Diagnosis Inadequate oral intake Diagnosis Progress(for reassessment Continues documentation) Is patient on ventilator? Yes Is Patient Ambulatory and/or Out of Bed No REE-([facility]-confined to bed) 2245.968 Kcal/Kg value to use for calculation 18 Approximate Energy Requirements Using 1953 kcal/Kg Calculation Used for Recommendations Kcal/kg Additional Notes Protein: >156 g (>2 g/kg IBW) Fluid: 1 ml/kcal Nutrition Intervention Change Diet Order: Continue CPN Nutrition Support: CPN at 75ml/hr: 15.3% dextrose , 31mEq K, 25mmol phos, MVI. Kcal 1,535 Protein (gm) 150 Carbohydrates (gm) 275 Fat (gm) 0 Fluid (mL) 1,800 Fiber (gm) 0 Goal #1 Meet kcal and protein needs as best as possible via CPN Goal #2 Wound healing Anticipated Discharge Needs: Unable to determine at this time Follow-Up By: 11/14/20 Additional Comments Labs in AM: BMP, Mg, Phos
[2020-11-13] MEDS ORDERED: SODIUM PHOSPHATE 30 MMOL in SODIUM CHLORIDE 0.9% 500 ML 500 ML IV ONE ×2 (12:30→17:30)
--- NOTE | 2020-11-13 12:30 | Progress Note ---
Assessment and Plan 1. Acute kidney injury: Vasomotor STACEY in the setting of shock. Renal US negative for hydro. Monitor renal function. Renal prognosis is guarded. Creatinine leveled off. Avoid nephrotoxic agents. Meds dosage based on GFR. 2. FEN: Hyperkalemia, improved, monitor. Hyperchloremia, monitor. Monitor lytes and volume status. 3. Severe sepsis with shock: Etiology unclear, rule out bacteremia, UTI, pneumonia and other nosocomial infections. Off pressors. Followed by ID. 4. 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 Seen by Neurology. 5. Acute hypoxemic respiratory failure: S/p extubated. 6. Acute on chronic systolic heart failure: EF 40-45%. Followed by Cards. 7. 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 8. Acute R LE ischemia: S/p thrombectomy. 9. Mild pneumatosis of ascending colon: Bowel ischemia. S/p Ex-lap and small bowel resection 11/08. S/p reexploration of abdomen, appendectomy, small bowel anastamosis 11/10. Followed by General surgery. 10. Normochromic anemia: Monitor. Subjective: Patient was not examined today. However the examination findings from other providers noted. The current and previous medical records are reviewed in detail as are laboratory and imaging data reviewed when appropriate. Medications being given are also reviewed. In addition the case has been discussed with the attending hospitalist and the nurse when needed. New renal recommendations as above. Subjective Date of service: 11/13/20 Principal diagnosis: Ac hypoxemic resp failure; CVA; Acute limb ischemia; Acute encephalopathy Objective - Vital Signs Vital signs: Vital Signs - 12hr 11/13/20 11/13/20 11/13/20 00:30 00:55 01:00 Temperature Pulse Rate 64 71 58 L Pulse Rate [ From Monitor] Respiratory 17 17 Rate Blood Pressure 103/61 103/61 103/61 O2 Sat by Pulse 100 100 Oximetry 11/13/20 11/13/20 11/13/20 01:05 01:30 02:00 Temperature Pulse Rate 62 64 Pulse Rate [ 69 From Monitor] Respiratory 18 23 21 Rate Blood Pressure 103/61 81/48 O2 Sat by Pulse 100 100 100 Oximetry 11/13/20 11/13/20 11/13/20 02:30 03:00 03:27 Temperature 99.8 F H Pulse Rate 64 66 Pulse Rate [ From Monitor] Respiratory 19 17 Rate Blood Pressure 123/58 O2 Sat by Pulse 100 100 Oximetry 11/13/20 11/13/20 11/13/20 03:30 03:38 04:00 Temperature Pulse Rate 61 69 70 Pulse Rate [ 69 From Monitor] Respiratory 22 20 27 H Rate Blood Pressure 110/64 110/64 110/64 O2 Sat by Pulse 100 100 100 Oximetry 11/13/20 11/13/20 11/13/20 04:30 05:00 05:16 Temperature Pulse Rate 67 63 67 Pulse Rate [ 69 From Monitor] Respiratory 21 22 18 Rate Blood Pressure 109/68 106/46 O2 Sat by Pulse 100 100 100 Oximetry 11/13/20 11/13/20 11/13/20 05:30 06:00 06:13 Temperature Pulse Rate 63 65 73 Pulse Rate [ From Monitor] Respiratory 20 22 Rate Blood Pressure 106/46 106/46 121/67 O2 Sat by Pulse 100 100 Oximetry 11/13/20 11/13/20 11/13/20 06:20 06:30 07:00 Temperature Pulse Rate 62 65 Pulse Rate [ From Monitor] Respiratory 21 22 Rate Blood Pressure 121/67 122/60 O2 Sat by Pulse 99 100 98 Oximetry 11/13/20 11/13/20 11/13/20 07:30 07:32 08:00 Temperature Pulse Rate 66 71 Pulse Rate [ 68 From Monitor] Respiratory 17 30 H Rate Blood Pressure 121/67 122/60 O2 Sat by Pulse 97 97 96 Oximetry 11/13/20 11/13/20 11/13/20 08:30 09:00 09:30 Temperature Pulse Rate 70 71 66 Pulse Rate [ From Monitor] Respiratory 26 H 25 H 29 H Rate Blood Pressure 113/60 113/60 112/61 O2 Sat by Pulse 95 97 98 Oximetry 11/13/20 11/13/20 11/13/20 10:00 10:30 11:00 Temperature Pulse Rate 64 65 67 Pulse Rate [ From Monitor] Respiratory 25 H 30 H 35 H Rate Blood Pressure 112/61 124/65 124/65 O2 Sat by Pulse 99 98 95 Oximetry 11/13/20 11/13/20 11:30 12:00 Temperature Pulse Rate 68 76 Pulse Rate [ From Monitor] Respiratory 25 H 38 H Rate Blood Pressure 99/60 99/60 O2 Sat by Pulse 96 99 Oximetry - Lab 11/14/20 04:00 11/14/20 04:00 Most recent lab results ABG pH 7.401 (7.320-7.450) 11/12/20 13:49 ABG O2 Saturation 97.9 (0-100) 11/12/20 13:49 Calcium 7.0 mg/dL (8.4-10.2) L 11/13/20 05:30 Phosphorus 1.60 mg/dL (2.5-4.5) L D 11/13/20 05:30 Magnesium 3.10 mg/dL (1.7-2.3) H 11/13/20 05:30 Urine Creatinine < 4.2 mg/dL (0.1-20.0) 11/04/20 12:50 Urine Sodium 10 mmol/L 11/04/20 12:50 Medications & Allergies - Medications Allergies/Adverse Reactions: Allergies No Known Allergies Allergy (Unverified 10/23/20 12:44) Home Medications: Home Medications Medication Instructions Recorded Confirmed Last Taken Type Levothyroxine Sodium 150 mcg PO DAILY 10/31/20 10/31/20 Unknown History [Levothyroxine] carvediloL [Coreg] 6.25 mg PO BID 10/31/20 10/31/20 Unknown History lisinopriL [Lisinopril] 10 mg PO DAILY 10/31/20 10/31/20 Unknown History Active Medications: Generic Name Dose Route Start Last Admin Trade Name Freq PRN Reason Stop Dose Admin Bisacodyl 10 mg 11/08/20 22:00 11/13/20 09:23 Bisacodyl 10 Mg Rect Supp OH 10 mg BID ALEX Administration Dextrose 50 ml 11/08/20 08:04 Dextrose 50% In Water (25gm) 50 Ml Syringe IV Q30MIN PRN Hypoglycemia Protocol Fentanyl 50 mcg 11/03/20 16:46 11/11/20 13:03 Fentanyl 100 Mcg/2 Ml Inj IV 50 mcg Q10MIN PRN Administration ANALGESIA Hydromorphone HCl 1 mg 11/11/20 13:35 Hydromorphone 1 Mg/1 Ml Inj IV Q4H PRN Pain , Severe (7-10) Hydrophilic Ointment 1 applic 11/03/20 16:46 Lip Therapy Vaseline TP Q2HR PRN Dry Lips Fentanyl Citrate 2,000 mcg in 100 mls @ 4.86 mls/hr 11/03/20 17:24 11/12/20 19:21 Fentanyl Drip Premix IV 0 mcg/kg/hr TITR ALEX 0 mls/hr Titration Protocol 1 MCG/KG/HR NORepinephrine/NS 8 MG-250 ML 8 mg in 250 mls @ 3.75 mls/hr 11/03/20 18:00 11/11/20 12:20 Norepinephrine/Ns 8 Mg-250 Ml (Double Conc) IV 0 mcg/min TITRATE ALEX 0 mls/hr Titration Protocol 2 MCG/MIN Cefepime HCl 2 gm in 100 mls @ 200 mls/hr 11/08/20 22:00 11/12/20 21:29 Cefepime/Ns 2 Gm/100 Ml IV 11/14/20 22:29 200 mls/hr Q24H ALEX Administration Protocol Propofol 1,000 mg in 100 mls @ 3.126 mls/hr 11/08/20 17:00 11/11/20 04:00 Diprivan 10 Mg/Ml IV 0 mcg/kg/min TITR ALEX 0 mls/hr Titration Protocol 5 MCG/KG/MIN Metronidazole 500 mg in 100 mls @ 100 mls/hr 11/08/20 17:00 11/13/20 09:31 Flagyl 500 Mg/100 Ml IV 11/14/20 17:59 100 mls/hr Q8H ALEX Administration Protocol Heparin Sodium/Sodium Chloride 25,000 unit in 500 mls @ 30 mls/hr 11/09/20 13:00 11/12/20 18:03 Heparin/ 0.45% Nacl-25,000 Unit/500 Ml IV 1,000 units/hr TITR ALEX 20 mls/hr Titration Protocol 1,500 UNITS/HR Amino Acids/Electrolytes/Dextrose 1,800 mls @ 75 mls/hr 11/12/20 20:00 11/12/20 21:01 Tpn Adult IV 11/13/20 19:59 75 mls/hr DAILY@1999 ALEX Administration Protocol Amino Acids/Electrolytes/Dextrose 1,800 mls @ 75 mls/hr 11/13/20 20:00 Tpn Adult IV 11/14/20 19:59 DAILY@1999 ALEX Protocol Sodium Phosphate 30 mmol/ 510 mls @ 125 mls/hr 11/13/20 12:30 Sodium Chloride IV 11/13/20 16:34 ONCE ONE Insulin Human Regular 0 units 11/12/20 12:00 11/13/20 05:04 Insulin Regular, Human 100 Units/1 Ml SUB-Q Not Given Q6HR [facility] Protocol Levothyroxine Sodium 75 mcg 11/09/20 06:00 11/13/20 06:13 Levothyroxine 100 Mcg Inj IV 75 mcg DAILY@0600 ALEX Administration Metoprolol Tartrate 5 mg 11/12/20 12:00 11/13/20 12:08 Metoprolol Tartrate 5 Mg/5 Ml Inj IV 5 mg Q6HR ALEX Administration Multi-Ingred Cream/Lotion/Oil/Oint 1 applic 11/03/20 16:46 Mineral Oil/Petrolatum, White Ophth Oint 3.5 Gm OU Q4HR PRN Dry Eye(s) Ondansetron HCl 4 mg 10/23/20 20:00 11/07/20 23:09 Ondansetron 4 Mg/2 Ml Inj IV 4 mg Q8H PRN Administration Nausea And Vomiting Pantoprazole Sodium 40 mg 11/07/20 22:00 11/13/20 09:23 Pantoprazole 40 Mg Inj IV 40 mg BID ALEX Administration Sodium Chloride 10 ml 10/23/20 20:00 11/13/20 00:56 Sodium Chloride 0.9% 10 Ml Flush Syringe IV 10 ml PRN PRN Administration LINE FLUSH
--- NOTE | 2020-11-13 12:45 | Progress Note ---
Assessment and Plan Acute hypoxemic respiratory failure. Acute embolic cerebrovascular accident. Acute limb ischemia, status post thrombectomy. Left atrial appendage. Acute congestive heart failure exacerbation. Obesity. History of hypothyroidism. Leukocytosis. Acute encephalopathy, toxic metabolic - aggressive NT suctioning & oral hygiene discussed with RN & RT 9performed at bedside) - add Robinul and scopolamine - replace Phosphorus aggressively for optimal respiratory muscle function - aspiration precautions, HOB > 40 degrees - continue BIPAP (03/29) scheduled qhs with prn daytime use for ventilatory assist - continue care as below otherwise; - continue low intensity Heparin I.V. and follow H&H - Keep NPO with NGT to LIS - complete antiinfective's per ID recommendation - azotemia per nephrology team - continue to wean supplemental oxygen for target O2 sat's > 90% acutely - continue lung protective strategies - continue bronchodilators with pulmonary hygiene per RT - wean per pulmonary driven protocols otherwise - avoid nephrotoxins, renally dose all medications - continue accuchecks with glycemic control per SSI (While critically ill target blood glucose of 140-180 mg/dL; avoid hypoglycemia) - continue to avoid benzodiazepine's, reduce the possibility of delirium - complete AB's per ID rec's - prn analgesia per CPOT score - Maintenance of sleep-wake cycle, avoid delirium - G.I. & VTE prophylaxis - PT/OT/ROM exercises - continue mobility protocols for pressure ulcer prophylaxis - Monitor hemodynamics closely - continue other care per attending / other consultants - discharge planning ongoing concurrently .... Re-evaluate in am & prn CONDITION: CRITICAL PROGNOSIS: GUARDED CODE STATUS: FULL CODE The high probability of a clinically significant, sudden or life-threatening deterioration of the [respiratory, cardiovascular, renal & neurologic] system(s) required my full and direct attention, intervention and personal management. The aggregate critical care time was [37] minutes without overlap. Time includes spent on; [x] Data Review and interpretation [x] Patient assessment and monitoring of vital signs [x] Documentation [x] Medication orders and management Subjective Date of service: 11/13/20 Principal diagnosis: Ac hypoxemic resp failure; CVA; Acute limb ischemia; Acute encephalopathy Interval history: Patient is seen today for: Acute hypoxemic respiratory failure; Acute embolic CVA; Acute limb ischemia; Left atrial appendage; Acute CHF; Obesity; Acute encephalopathy, toxic metabolic Seen and examined at bedside; 24hour events reviewed; nursing and respiratory care staff consulted; no adverse overnight events reported to me; resting peacef ully in bed; work of breathing mildly increased; audible posterior oropharyngeal secretions; follows some commands; no emesis or overt aspiration Objective Vital Signs - 12hr 11/13/20 11/13/20 11/13/20 00:55 01:00 01:05 Temperature Pulse Rate 71 58 L Pulse Rate [ 69 From Monitor] Respiratory 17 18 Rate Blood Pressure 103/61 103/61 O2 Sat by Pulse 100 100 Oximetry 11/13/20 11/13/20 11/13/20 01:30 02:00 02:30 Temperature Pulse Rate 62 64 64 Pulse Rate [ From Monitor] Respiratory 23 21 19 Rate Blood Pressure 103/61 81/48 123/58 O2 Sat by Pulse 100 100 100 Oximetry 11/13/20 11/13/20 11/13/20 03:00 03:27 03:30 Temperature 99.8 F H Pulse Rate 66 61 Pulse Rate [ From Monitor] Respiratory 17 22 Rate Blood Pressure 110/64 O2 Sat by Pulse 100 100 Oximetry 11/13/20 11/13/20 11/13/20 03:38 04:00 04:30 Temperature Pulse Rate 69 70 67 Pulse Rate [ 69 From Monitor] Respiratory 20 27 H 21 Rate Blood Pressure 110/64 110/64 109/68 O2 Sat by Pulse 100 100 100 Oximetry 11/13/20 11/13/20 11/13/20 05:00 05:16 05:30 Temperature Pulse Rate 63 67 63 Pulse Rate [ 69 From Monitor] Respiratory 22 18 20 Rate Blood Pressure 106/46 106/46 O2 Sat by Pulse 100 100 100 Oximetry 11/13/20 11/13/20 11/13/20 06:00 06:13 06:20 Temperature Pulse Rate 65 73 Pulse Rate [ From Monitor] Respiratory 22 Rate Blood Pressure 106/46 121/67 O2 Sat by Pulse 100 99 Oximetry 11/13/20 11/13/20 11/13/20 06:30 07:00 07:30 Temperature Pulse Rate 62 65 66 Pulse Rate [ From Monitor] Respiratory 21 22 17 Rate Blood Pressure 121/67 122/60 121/67 O2 Sat by Pulse 100 98 97 Oximetry 11/13/20 11/13/20 11/13/20 07:32 08:00 08:30 Temperature Pulse Rate 71 70 Pulse Rate [ 68 From Monitor] Respiratory 30 H 26 H Rate Blood Pressure 122/60 113/60 O2 Sat by Pulse 97 96 95 Oximetry 11/13/20 11/13/20 11/13/20 09:00 09:30 10:00 Temperature Pulse Rate 71 66 64 Pulse Rate [ From Monitor] Respiratory 25 H 29 H 25 H Rate Blood Pressure 113/60 112/61 112/61 O2 Sat by Pulse 97 98 99 Oximetry 11/13/20 11/13/20 11/13/20 10:30 11:00 11:30 Temperature Pulse Rate 65 67 68 Pulse Rate [ From Monitor] Respiratory 30 H 35 H 25 H Rate Blood Pressure 124/65 124/65 99/60 O2 Sat by Pulse 98 95 96 Oximetry 11/13/20 12:00 Temperature Pulse Rate 76 Pulse Rate [ From Monitor] Respiratory 38 H Rate Blood Pressure 99/60 O2 Sat by Pulse 99 Oximetry Constitutional: appears uncomfortable, other (elderly male with mildly increased respiratory effort at rest on MVS) Eyes: non-icteric ENT: oropharynx moist, oropharyngeal exudate pre (cream colored, copious), other (ETT 25 cm DALIA) Neck: supple, no lymphadenopathy, no JVD Effort: mildly labored Ascultation: Bilateral: diminished breath sounds, rhonchi (and referred upper airway sounds) Percussion: Bilateral: not dull Cardiovascular: regular rate and rhythm, murmur noted (COLE) Gastrointestinal: hypoactive bowel sounds, non-tender, other (midline incision in white dressing) Integumentary: normal Extremities: no cyanosis, pink and warm, edema (RLExt), other (RLExt fasciotomy) Neurologic: pupils equal and round, unable to assess, other (Right Hemiparesis) Psychiatric: other (somnolent) CBC and BMP: 11/13/20 08:16 11/13/20 05:30 ABG, PT/INR, D-dimer: ABG ABG pH 7.401 (7.320-7.450) 11/12/20 13:49 POC ABG pCO2 38.2 mmHg (32.0-48.0) 11/12/20 13:49 POC ABG pO2 100.6 mmHg (83-108) 11/12/20 13:49 POC ABG HCO3 23.2 11/12/20 13:49 ABG O2 Saturation 97.9 (0-100) 11/12/20 13:49 PT/INR, D-dimer PT 16.2 Sec. (12.2-14.9) H 11/02/20 19:55 INR 1.30 (0.87-1.13) H 11/02/20 19:55 D-Dimer 4139.61 ng/mlDDU (0-234) H 10/23/20 18:23 Abnormal lab findings: Abnormal Labs 10/23/20 10/23/20 10/23/20 13:32 18:23 18:23 WBC RBC Hgb Hct RDW Seg Neuts % (Manual) Lymphocytes % (Manual) Seg Neutrophils # Man Lymphocytes # (Manual) Monocytes # (Manual) PT INR APTT D-Dimer 4139.61 H Heparin Anti-Xa Level ABG pH POC ABG pCO2 POC ABG pO2 ABG Hemoglobin ABG Oxyhemoglobin ABG Sodium ABG Potassium ABG Chloride ABG Glucose Carboxyhemoglobin Sodium Potassium Chloride 109.1 H Carbon Dioxide BUN Creatinine Glucose POC Glucose Lactic Acid Calcium Ionized Calcium Phosphorus Magnesium Lactate Dehydrogenase 334 H C-Reactive Protein 2.50 H NT-Pro-B Natriuret Pep 5806 H Serum Total Protein Total Protein Albumin Lzdts-6-Rbtevmxhu Gamma Globulins PEP Interpretation TSH Arterial Blood Glucose Arterial Blood Ionized Calcium Urine WBC (Auto) Crossmatch 10/23/20 10/23/20 10/26/20 18:23 18:23 05:34 WBC RBC Hgb Hct RDW Seg Neuts % (Manual) Lymphocytes % (Manual) Seg Neutrophils # Man Lymphocytes # (Manual) Monocytes # (Manual) PT INR APTT D-Dimer Heparin Anti-Xa Level ABG pH POC ABG pCO2 POC ABG pO2 ABG Hemoglobin ABG Oxyhemoglobin ABG Sodium ABG Potassium ABG Chloride ABG Glucose Carboxyhemoglobin Sodium Potassium Chloride Carbon Dioxide BUN 30 H Creatinine Glucose 120 H POC Glucose Lactic Acid Calcium Ionized Calcium Phosphorus Magnesium Lactate Dehydrogenase C-Reactive Protein NT-Pro-B Natriuret Pep Serum Total Protein Total Protein Albumin Tpagb-7-Rjkbbjzwc Gamma Globulins PEP Interpretation TSH 7.100 H 6.540 H Arterial Blood Glucose Arterial Blood Ionized Calcium Urine WBC (Auto) Crossmatch 10/27/20 10/28/20 11/02/20 08:55 05:25 07:17 WBC 15.8 H RBC Hgb Hct RDW Seg Neuts % (Manual) Lymphocytes % (Manual) Seg Neutrophils # Man Lymphocytes # (Manual) Monocytes # (Manual) PT INR APTT D-Dimer Heparin Anti-Xa Level ABG pH POC ABG pCO2 POC ABG pO2 ABG Hemoglobin ABG Oxyhemoglobin ABG Sodium ABG Potassium ABG Chloride ABG Glucose Carboxyhemoglobin Sodium Potassium Chloride Carbon Dioxide BUN 28 H 28 H Creatinine Glucose 124 H 110 H POC Glucose Lactic Acid Calcium 8.2 L Ionized Calcium Phosphorus Magnesium Lactate Dehydrogenase C-Reactive Protein NT-Pro-B Natriuret Pep Serum Total Protein Total Protein Albumin Iucap-5-Iiwrsjubm Gamma Globulins PEP Interpretation TSH Arterial Blood Glucose Arterial Blood Ionized Calcium Urine WBC (Auto) Crossmatch 11/02/20 11/02/20 11/02/20 07:17 15:00 15:06 WBC RBC Hgb 15.7 H Hct 47.5 H D RDW Seg Neuts % (Manual) Lymphocytes % (Manual) Seg Neutrophils # Man Lymphocytes # (Manual) Monocytes # (Manual) PT INR APTT D-Dimer Heparin Anti-Xa Level ABG pH POC ABG pCO2 POC ABG pO2 ABG Hemoglobin ABG Oxyhemoglobin ABG Sodium ABG Potassium ABG Chloride ABG Glucose Carboxyhemoglobin Sodium 136 L Potassium Chloride Carbon Dioxide BUN 33 H Creatinine Glucose 107 H POC Glucose Lactic Acid Calcium 7.9 L Ionized Calcium Phosphorus Magnesium Lactate Dehydrogenase C-Reactive Protein NT-Pro-B Natriuret Pep Serum Total Protein Total Protein Albumin Yzcfu-3-Kpeefhrtn Gamma Globulins PEP Interpretation TSH Arterial Blood Glucose Arterial Blood Ionized Calcium Urine WBC (Auto) Crossmatch See Detail 11/02/20 11/02/20 11/02/20 19:55 21:25 22:28 WBC 21.8 H RBC Hgb Hct RDW Seg Neuts % (Manual) Lymphocytes % (Manual) Seg Neutrophils # Man Lymphocytes # (Manual) Monocytes # (Manual) PT 16.2 H INR 1.30 H APTT 106.0 H* D-Dimer Heparin Anti-Xa Level 1.63 H ABG pH POC ABG pCO2 POC ABG pO2 ABG Hemoglobin ABG Oxyhemoglobin ABG Sodium ABG Potassium ABG Chloride ABG Glucose Carboxyhemoglobin Sodium Potassium Chloride Carbon Dioxide BUN Creatinine Glucose POC Glucose Lactic Acid Calcium Ionized Calcium Phosphorus Magnesium Lactate Dehydrogenase C-Reactive Protein NT-Pro-B Natriuret Pep Serum Total Protein Total Protein Albumin Ayxuv-0-Tzixjwhnu Gamma Globulins PEP Interpretation TSH Arterial Blood Glucose Arterial Blood Ionized Calcium Urine WBC (Auto) Crossmatch 11/03/20 11/03/20 11/03/20 05:47 13:20 13:20 WBC 29.0 H RBC Hgb 10.4 L Hct 31.2 L D RDW Seg Neuts % (Manual) Lymphocytes % (Manual) Seg Neutrophils # Man Lymphocytes # (Manual) Monocytes # (Manual) PT INR APTT D-Dimer Heparin Anti-Xa Level < 0.10 L ABG pH POC ABG pCO2 POC ABG pO2 ABG Hemoglobin ABG Oxyhemoglobin ABG Sodium ABG Potassium ABG Chloride ABG Glucose Carboxyhemoglobin Sodium 134 L Potassium 5.9 H D Chloride Carbon Dioxide 17 L D BUN 47 H Creatinine 2.2 H D Glucose 188 H POC Glucose Lactic Acid Calcium 7.6 L Ionized Calcium Phosphorus Magnesium Lactate Dehydrogenase C-Reactive Protein NT-Pro-B Natriuret Pep Serum Total Protein Total Protein Albumin Bhcgd-8-Avqpudmfl Gamma Globulins PEP Interpretation TSH Arterial Blood Glucose Arterial Blood Ionized Calcium Urine WBC (Auto) Crossmatch 11/03/20 11/03/20 11/03/20 13:20 16:11 20:01 WBC RBC Hgb Hct RDW Seg Neuts % (Manual) Lymphocytes % (Manual) Seg Neutrophils # Man Lymphocytes # (Manual) Monocytes # (Manual) PT INR APTT D-Dimer Heparin Anti-Xa Level ABG pH 7.289 L POC ABG pCO2 31.8 L POC ABG pO2 156.7 H 119.6 H ABG Hemoglobin 10.7 L 9.7 L ABG Oxyhemoglobin 98.2 H ABG Sodium 127.7 L 129.5 L ABG Potassium 5.8 H 5.9 H ABG Chloride ABG Glucose 190 H 174 H Carboxyhemoglobin 0.3 L 0.1 L Sodium Potassium Chloride Carbon Dioxide BUN Creatinine Glucose POC Glucose Lactic Acid 7.40 H* Calcium Ionized Calcium Phosphorus Magnesium Lactate Dehydrogenase C-Reactive Protein NT-Pro-B Natriuret Pep Serum Total Protein Total Protein Albumin Zhpon-0-Gcecszwlq Gamma Globulins PEP Interpretation TSH Arterial Blood Glucose 190 H 174 H Arterial Blood Ionized Calcium 4.3 L 4.3 L Urine WBC (Auto) Crossmatch 05/12/21 05/13/21 05/13/21 21:14 04:00 04:00 WBC 32.8 H RBC Hgb 11.7 L Hct 35.0 L RDW Seg Neuts % (Manual) 82.0 H Lymphocytes % (Manual) 10.0 L Seg Neutrophils # Man 26.9 H Lymphocytes # (Manual) Monocytes # (Manual) 2.3 H PT INR APTT D-Dimer Heparin Anti-Xa Level 0.73 H ABG pH POC ABG pCO2 POC ABG pO2 ABG Hemoglobin ABG Oxyhemoglobin ABG Sodium ABG Potassium ABG Chloride ABG Glucose Carboxyhemoglobin Sodium 133 L Potassium 5.7 H Chloride Carbon Dioxide 20 L BUN 57 H Creatinine 2.3 H Glucose 129 H POC Glucose Lactic Acid Calcium 7.2 L Ionized Calcium Phosphorus Magnesium Lactate Dehydrogenase C-Reactive Protein NT-Pro-B Natriuret Pep Serum Total Protein Total Protein Albumin Ixomt-1-Kxgeduafl Gamma Globulins PEP Interpretation TSH Arterial Blood Glucose Arterial Blood Ionized Calcium Urine WBC (Auto) Crossmatch 11/04/20 11/04/20 11/04/20 07:57 11:00 11:55 WBC RBC Hgb Hct RDW Seg Neuts % (Manual) Lymphocytes % (Manual) Seg Neutrophils # Man Lymphocytes # (Manual) Monocytes # (Manual) PT INR APTT D-Dimer Heparin Anti-Xa Level ABG pH POC ABG pCO2 POC ABG pO2 132.7 H ABG Hemoglobin 11.5 L ABG Oxyhemoglobin ABG Sodium 130.6 L ABG Potassium 5.3 H ABG Chloride ABG Glucose 145 H Carboxyhemoglobin 0.2 L Sodium Potassium Chloride Carbon Dioxide BUN Creatinine Glucose POC Glucose 110 H Lactic Acid Calcium Ionized Calcium Phosphorus Magnesium Lactate Dehydrogenase C-Reactive Protein NT-Pro-B Natriuret Pep Serum Total Protein Total Protein Albumin Aaqmt-5-Mpeemiuyk Gamma Globulins PEP Interpretation TSH Arterial Blood Glucose 145 H Arterial Blood Ionized Calcium 4.4 L Urine WBC (Auto) 19.0 H Crossmatch 11/04/20 11/04/20 11/04/20 13:01 13:01 17:40 WBC RBC Hgb Hct RDW Seg Neuts % (Manual) Lymphocytes % (Manual) Seg Neutrophils # Man Lymphocytes # (Manual) Monocytes # (Manual) PT INR APTT D-Dimer Heparin Anti-Xa Level 0.26 L ABG pH POC ABG pCO2 POC ABG pO2 ABG Hemoglobin ABG Oxyhemoglobin ABG Sodium ABG Potassium ABG Chloride ABG Glucose Carboxyhemoglobin Sodium Potassium Chloride Carbon Dioxide BUN Creatinine Glucose POC Glucose 135 H Lactic Acid Calcium Ionized Calcium Phosphorus Magnesium Lactate Dehydrogenase C-Reactive Protein 8.30 H NT-Pro-B Natriuret Pep Serum Total Protein Total Protein Albumin Ttynu-7-Wbgdyffbr Gamma Globulins PEP Interpretation TSH Arterial Blood Glucose Arterial Blood Ionized Calcium Urine WBC (Auto) Crossmatch 11/04/20 11/04/20 11/05/20 19:55 23:20 00:53 WBC RBC Hgb 9.7 L 9.0 L Hct 28.3 L D 26.0 L RDW Seg Neuts % (Manual) Lymphocytes % (Manual) Seg Neutrophils # Man Lymphocytes # (Manual) Monocytes # (Manual) PT INR APTT D-Dimer Heparin Anti-Xa Level ABG pH POC ABG pCO2 POC ABG pO2 ABG Hemoglobin ABG Oxyhemoglobin ABG Sodium ABG Potassium ABG Chloride ABG Glucose Carboxyhemoglobin Sodium Potassium Chloride Carbon Dioxide BUN Creatinine Glucose POC Glucose 143 H Lactic Acid Calcium Ionized Calcium Phosphorus Magnesium Lactate Dehydrogenase C-Reactive Protein NT-Pro-B Natriuret Pep Serum Total Protein Total Protein Albumin Qdmwa-4-Wvapqxkqs Gamma Globulins PEP Interpretation TSH Arterial Blood Glucose Arterial Blood Ionized Calcium Urine WBC (Auto) Crossmatch 11/05/20 11/05/20 11/05/20 02:16 03:16 03:37 WBC 33.5 H RBC 3.01 L Hgb 8.8 L Hct 25.6 L RDW Seg Neuts % (Manual) 93.5 H Lymphocytes % (Manual) 3.5 L Seg Neutrophils # Man 31.3 H Lymphocytes # (Manual) Monocytes # (Manual) 1.0 H PT INR APTT D-Dimer Heparin Anti-Xa Level 0.99 H ABG pH POC ABG pCO2 POC ABG pO2 131.3 H ABG Hemoglobin 9.2 L ABG Oxyhemoglobin ABG Sodium 131.6 L ABG Potassium ABG Chloride 110.0 H ABG Glucose 168 H Carboxyhemoglobin 0.3 L Sodium Potassium Chloride Carbon Dioxide BUN Creatinine Glucose POC Glucose Lactic Acid Calcium Ionized Calcium Phosphorus Magnesium Lactate Dehydrogenase C-Reactive Protein NT-Pro-B Natriuret Pep Serum Total Protein Total Protein Albumin Udmtf-8-Ickhrtxzt Gamma Globulins PEP Interpretation TSH Arterial Blood Glucose 168 H Arterial Blood Ionized Calcium 4.4 L Urine WBC (Auto) Crossmatch 11/05/20 11/05/20 11/05/20 03:37 05:19 18:18 WBC RBC Hgb Hct RDW Seg Neuts % (Manual) Lymphocytes % (Manual) Seg Neutrophils # Man Lymphocytes # (Manual) Monocytes # (Manual) PT INR APTT D-Dimer Heparin Anti-Xa Level ABG pH POC ABG pCO2 POC ABG pO2 ABG Hemoglobin ABG Oxyhemoglobin ABG Sodium ABG Potassium ABG Chloride ABG Glucose Carboxyhemoglobin Sodium Potassium Chloride 109.5 H Carbon Dioxide BUN 55 H Creatinine 2.1 H Glucose 157 H POC Glucose 142 H 124 H Lactic Acid Calcium 7.0 L Ionized Calcium Phosphorus Magnesium Lactate Dehydrogenase C-Reactive Protein NT-Pro-B Natriuret Pep Serum Total Protein Total Protein Albumin Znwxe-3-Fqnyzxihe Gamma Globulins PEP Interpretation TSH Arterial Blood Glucose Arterial Blood Ionized Calcium Urine WBC (Auto) Crossmatch 11/05/20 11/05/20 11/05/20 19:00 21:20 23:30 WBC RBC Hgb Hct RDW Seg Neuts % (Manual) Lymphocytes % (Manual) Seg Neutrophils # Man Lymphocytes # (Manual) Monocytes # (Manual) PT INR APTT 63.8 H* D-Dimer Heparin Anti-Xa Level ABG pH POC ABG pCO2 POC ABG pO2 ABG Hemoglobin ABG Oxyhemoglobin ABG Sodium ABG Potassium ABG Chloride ABG Glucose Carboxyhemoglobin Sodium Potassium Chloride Carbon Dioxide BUN Creatinine Glucose POC Glucose 156 H Lactic Acid Calcium Ionized Calcium Phosphorus Magnesium Lactate Dehydrogenase C-Reactive Protein NT-Pro-B Natriuret Pep Serum Total Protein Total Protein 4.3 L Albumin 2.1 L Scpam-8-Jrgwmvmvd Gamma Globulins PEP Interpretation TSH Arterial Blood Glucose Arterial Blood Ionized Calcium Urine WBC (Auto) Crossmatch 11/06/20 11/06/20 11/06/20 02:54 04:00 04:00 WBC 33.0 H RBC 2.68 L Hgb 7.7 L Hct 23.3 L RDW Seg Neuts % (Manual) 95.0 H Lymphocytes % (Manual) 2.0 L Seg Neutrophils # Man 31.4 H Lymphocytes # (Manual) 0.7 L Monocytes # (Manual) 1.0 H PT INR APTT D-Dimer Heparin Anti-Xa Level ABG pH POC ABG pCO2 POC ABG pO2 116.5 H ABG Hemoglobin 9.7 L ABG Oxyhemoglobin ABG Sodium 134.5 L ABG Potassium 5.0 H ABG Chloride 109.0 H ABG Glucose 165 H Carboxyhemoglobin 0.3 L Sodium Potassium 5.1 H Chloride 108.6 H Carbon Dioxide BUN 62 H Creatinine 2.2 H Glucose 155 H POC Glucose Lactic Acid Calcium 7.3 L Ionized Calcium Phosphorus Magnesium Lactate Dehydrogenase C-Reactive Protein NT-Pro-B Natriuret Pep Serum Total Protein Total Protein Albumin Tkxgm-4-Dmlyhoqvt Gamma Globulins PEP Interpretation TSH Arterial Blood Glucose 165 H Arterial Blood Ionized Calcium 4.5 L Urine WBC (Auto) Crossmatch 11/06/20 11/06/20 11/06/20 05:17 06:00 17:26 WBC RBC Hgb Hct RDW Seg Neuts % (Manual) Lymphocytes % (Manual) Seg Neutrophils # Man Lymphocytes # (Manual) Monocytes # (Manual) PT INR APTT D-Dimer Heparin Anti-Xa Level ABG pH POC ABG pCO2 POC ABG pO2 ABG Hemoglobin ABG Oxyhemoglobin ABG Sodium ABG Potassium ABG Chloride ABG Glucose Carboxyhemoglobin Sodium Potassium Chloride Carbon Dioxide BUN Creatinine Glucose POC Glucose 147 H 132 H Lactic Acid Calcium Ionized Calcium 4.7 L Phosphorus Magnesium Lactate Dehydrogenase C-Reactive Protein NT-Pro-B Natriuret Pep Serum Total Protein Total Protein Albumin Qrjds-4-Jhklszkpz Gamma Globulins PEP Interpretation TSH Arterial Blood Glucose Arterial Blood Ionized Calcium Urine WBC (Auto) Crossmatch 11/06/20 11/07/20 11/07/20 Unknown 04:00 04:00 WBC 28.9 H RBC 2.44 L Hgb 7.1 L Hct 21.2 L RDW 15.4 H Seg Neuts % (Manual) 95.0 H Lymphocytes % (Manual) 3.0 L Seg Neutrophils # Man 27.5 H Lymphocytes # (Manual) 0.9 L Monocytes # (Manual) PT INR APTT D-Dimer Heparin Anti-Xa Level ABG pH POC ABG pCO2 POC ABG pO2 ABG Hemoglobin ABG Oxyhemoglobin ABG Sodium ABG Potassium ABG Chloride ABG Glucose Carboxyhemoglobin Sodium Potassium 5.3 H Chloride 108.2 H Carbon Dioxide BUN 77 H Creatinine 2.4 H Glucose 144 H POC Glucose Lactic Acid Calcium 7.5 L Ionized Calcium Phosphorus Magnesium Lactate Dehydrogenase C-Reactive Protein NT-Pro-B Natriuret Pep Serum Total Protein 4.1 L Total Protein Albumin 2.2 L Lhbvv-4-Tnbmxijlh 0.5 H Gamma Globulins 0.4 L PEP Interpretation see below H TSH Arterial Blood Glucose Arterial Blood Ionized Calcium Urine WBC (Auto) Crossmatch 11/07/20 11/07/20 11/07/20 04:00 12:06 17:29 WBC RBC Hgb Hct RDW Seg Neuts % (Manual) Lymphocytes % (Manual) Seg Neutrophils # Man Lymphocytes # (Manual) Monocytes # (Manual) PT INR APTT D-Dimer Heparin Anti-Xa Level ABG pH POC ABG pCO2 POC ABG pO2 130.1 H ABG Hemoglobin 7.5 L ABG Oxyhemoglobin ABG Sodium ABG Potassium 5.0 H ABG Chloride 110.0 H ABG Glucose 152 H Carboxyhemoglobin Sodium Potassium Chloride Carbon Dioxide BUN Creatinine Glucose POC Glucose 144 H 117 H Lactic Acid Calcium Ionized Calcium Phosphorus Magnesium Lactate Dehydrogenase C-Reactive Protein NT-Pro-B Natriuret Pep Serum Total Protein Total Protein Albumin Pvjiu-5-Rntqavugb Gamma Globulins PEP Interpretation TSH Arterial Blood Glucose 152 H Arterial Blood Ionized Calcium Urine WBC (Auto) Crossmatch 11/08/20 11/08/20 11/08/20 03:38 04:39 04:39 WBC 23.1 H RBC 2.37 L Hgb 6.9 L Hct 20.8 L RDW 15.3 H Seg Neuts % (Manual) 95.5 H Lymphocytes % (Manual) 2.5 L Seg Neutrophils # Man 22.1 H Lymphocytes # (Manual) 0.6 L Monocytes # (Manual) PT INR APTT D-Dimer Heparin Anti-Xa Level ABG pH 7.494 H POC ABG pCO2 POC ABG pO2 111.5 H ABG Hemoglobin 6.7 L ABG Oxyhemoglobin ABG Sodium ABG Potassium 4.9 H ABG Chloride 112.0 H ABG Glucose 153 H Carboxyhemoglobin Sodium Potassium 5.1 H Chloride 111.3 H Carbon Dioxide BUN 86 H Creatinine 2.5 H Glucose 142 H POC Glucose Lactic Acid Calcium 7.6 L Ionized Calcium Phosphorus Magnesium Lactate Dehydrogenase C-Reactive Protein NT-Pro-B Natriuret Pep Serum Total Protein Total Protein Albumin Qiqhj-0-Awnfjlcqn Gamma Globulins PEP Interpretation TSH Arterial Blood Glucose 153 H Arterial Blood Ionized Calcium 4.5 L Urine WBC (Auto) Crossmatch 11/08/20 11/08/20 11/08/20 11:13 11:15 16:30 WBC RBC Hgb 8.0 L Hct 23.6 L RDW Seg Neuts % (Manual) Lymphocytes % (Manual) Seg Neutrophils # Man Lymphocytes # (Manual) Monocytes # (Manual) PT INR APTT D-Dimer Heparin Anti-Xa Level ABG pH POC ABG pCO2 POC ABG pO2 ABG Hemoglobin ABG Oxyhemoglobin ABG Sodium ABG Potassium ABG Chloride ABG Glucose Carboxyhemoglobin Sodium Potassium Chloride Carbon Dioxide BUN Creatinine Glucose POC Glucose 125 H Lactic Acid Calcium Ionized Calcium Phosphorus Magnesium Lactate Dehydrogenase C-Reactive Protein NT-Pro-B Natriuret Pep Serum Total Protein Total Protein Albumin Cgdqv-6-Cnvpqcusz Gamma Globulins PEP Interpretation TSH Arterial Blood Glucose Arterial Blood Ionized Calcium Urine WBC (Auto) Crossmatch See Detail 11/08/20 11/08/20 11/09/20 19:11 22:20 03:21 WBC 19.0 H RBC 2.51 L Hgb 7.5 L Hct 22.2 L RDW 15.3 H Seg Neuts % (Manual) 89.0 H Lymphocytes % (Manual) 6.0 L Seg Neutrophils # Man 16.9 H Lymphocytes # (Manual) 1.1 L Monocytes # (Manual) 1.0 H PT INR APTT D-Dimer Heparin Anti-Xa Level ABG pH POC ABG pCO2 POC ABG pO2 ABG Hemoglobin ABG Oxyhemoglobin ABG Sodium ABG Potassium ABG Chloride ABG Glucose Carboxyhemoglobin Sodium Potassium Chloride Carbon Dioxide BUN Creatinine Glucose POC Glucose 107 H Lactic Acid Calcium Ionized Calcium Phosphorus Magnesium Lactate Dehydrogenase C-Reactive Protein NT-Pro-B Natriuret Pep Serum Total Protein Total Protein 3.8 L Albumin 2.2 L Bfqof-1-Qbjrkkmhc Gamma Globulins PEP Interpretation TSH Arterial Blood Glucose Arterial Blood Ionized Calcium Urine WBC (Auto) Crossmatch 11/09/20 11/09/20 11/09/20 03:21 03:21 03:43 WBC RBC Hgb Hct RDW Seg Neuts % (Manual) Lymphocytes % (Manual) Seg Neutrophils # Man Lymphocytes # (Manual) Monocytes # (Manual) PT INR APTT 50.8 H D-Dimer Heparin Anti-Xa Level ABG pH POC ABG pCO2 POC ABG pO2 ABG Hemoglobin ABG Oxyhemoglobin ABG Sodium ABG Potassium ABG Chloride ABG Glucose Carboxyhemoglobin Sodium Potassium Chloride 109.1 H Carbon Dioxide BUN 86 H Creatinine 2.5 H Glucose 140 H POC Glucose 117 H Lactic Acid Calcium 6.9 L Ionized Calcium Phosphorus Magnesium Lactate Dehydrogenase C-Reactive Protein NT-Pro-B Natriuret Pep Serum Total Protein Total Protein Albumin Drbmc-5-Wvjhxndqg Gamma Globulins PEP Interpretation TSH Arterial Blood Glucose Arterial Blood Ionized Calcium Urine WBC (Auto) Crossmatch 11/09/20 11/09/20 11/09/20 09:22 17:04 22:08 WBC RBC Hgb Hct RDW Seg Neuts % (Manual) Lymphocytes % (Manual) Seg Neutrophils # Man Lymphocytes # (Manual) Monocytes # (Manual) PT INR APTT D-Dimer Heparin Anti-Xa Level ABG pH POC ABG pCO2 POC ABG pO2 ABG Hemoglobin ABG Oxyhemoglobin ABG Sodium ABG Potassium ABG Chloride ABG Glucose Carboxyhemoglobin Sodium Potassium Chloride Carbon Dioxide BUN Creatinine Glucose POC Glucose 111 H 106 H 112 H Lactic Acid Calcium Ionized Calcium Phosphorus Magnesium Lactate Dehydrogenase C-Reactive Protein NT-Pro-B Natriuret Pep Serum Total Protein Total Protein Albumin Zopka-3-Cgoderucy Gamma Globulins PEP Interpretation TSH Arterial Blood Glucose Arterial Blood Ionized Calcium Urine WBC (Auto) Crossmatch 11/10/20 11/10/20 11/10/20 05:30 05:30 11:50 WBC RBC Hgb 6.6 L Hct 19.9 L* RDW Seg Neuts % (Manual) Lymphocytes % (Manual) Seg Neutrophils # Man Lymphocytes # (Manual) Monocytes # (Manual) PT INR APTT D-Dimer Heparin Anti-Xa Level ABG pH POC ABG pCO2 POC ABG pO2 ABG Hemoglobin ABG Oxyhemoglobin ABG Sodium ABG Potassium ABG Chloride ABG Glucose Carboxyhemoglobin Sodium Potassium Chloride 111.3 H Carbon Dioxide BUN 74 H Creatinine 2.3 H Glucose 119 H POC Glucose 108 H Lactic Acid Calcium 7.1 L Ionized Calcium Phosphorus Magnesium 4.40 H Lactate Dehydrogenase C-Reactive Protein NT-Pro-B Natriuret Pep Serum Total Protein Total Protein Albumin Rprgq-8-Xlfalyvbf Gamma Globulins PEP Interpretation TSH Arterial Blood Glucose Arterial Blood Ionized Calcium Urine WBC (Auto) Crossmatch 11/10/20 11/10/20 11/10/20 17:50 23:12 23:17 WBC RBC Hgb 9.5 L 9.1 L Hct 28.2 L D 27.5 L RDW Seg Neuts % (Manual) Lymphocytes % (Manual) Seg Neutrophils # Man Lymphocytes # (Manual) Monocytes # (Manual) PT INR APTT D-Dimer Heparin Anti-Xa Level ABG pH POC ABG pCO2 POC ABG pO2 ABG Hemoglobin ABG Oxyhemoglobin ABG Sodium ABG Potassium ABG Chloride ABG Glucose Carboxyhemoglobin Sodium Potassium Chloride Carbon Dioxide BUN Creatinine Glucose POC Glucose 107 H Lactic Acid Calcium Ionized Calcium Phosphorus Magnesium Lactate Dehydrogenase C-Reactive Protein NT-Pro-B Natriuret Pep Serum Total Protein Total Protein Albumin Mzwvi-5-Rupuosxmr Gamma Globulins PEP Interpretation TSH Arterial Blood Glucose Arterial Blood Ionized Calcium Urine WBC (Auto) Crossmatch 11/11/20 11/11/20 11/11/20 05:16 05:30 08:35 WBC 17.4 H RBC 3.17 L Hgb 9.5 L Hct 29.0 L RDW 16.2 H Seg Neuts % (Manual) Lymphocytes % (Manual) Seg Neutrophils # Man Lymphocytes # (Manual) Monocytes # (Manual) PT INR APTT D-Dimer Heparin Anti-Xa Level ABG pH POC ABG pCO2 POC ABG pO2 ABG Hemoglobin ABG Oxyhemoglobin ABG Sodium ABG Potassium ABG Chloride ABG Glucose Carboxyhemoglobin Sodium Potassium Chloride 107.4 H Carbon Dioxide BUN 64 H Creatinine 2.1 H Glucose 148 H POC Glucose 127 H Lactic Acid Calcium 6.7 L Ionized Calcium Phosphorus Magnesium 3.90 H Lactate Dehydrogenase C-Reactive Protein NT-Pro-B Natriuret Pep Serum Total Protein Total Protein Albumin Tybwy-8-Edyyqcvbp Gamma Globulins PEP Interpretation TSH Arterial Blood Glucose Arterial Blood Ionized Calcium Urine WBC (Auto) Crossmatch 11/11/20 11/11/20 11/11/20 09:14 10:10 11:45 WBC RBC Hgb 9.2 L Hct 27.2 L RDW Seg Neuts % (Manual) Lymphocytes % (Manual) Seg Neutrophils # Man Lymphocytes # (Manual) Monocytes # (Manual) PT INR APTT D-Dimer Heparin Anti-Xa Level ABG pH POC ABG pCO2 POC ABG pO2 ABG Hemoglobin ABG Oxyhemoglobin ABG Sodium 135.8 L ABG Potassium ABG Chloride 111.0 H ABG Glucose 152 H Carboxyhemoglobin Sodium Potassium Chloride Carbon Dioxide BUN Creatinine Glucose POC Glucose 139 H Lactic Acid Calcium Ionized Calcium Phosphorus Magnesium Lactate Dehydrogenase C-Reactive Protein NT-Pro-B Natriuret Pep Serum Total Protein Total Protein Albumin Uesfe-8-Irsorihpp Gamma Globulins PEP Interpretation TSH Arterial Blood Glucose 152 H Arterial Blood Ionized Calcium 4.2 L Urine WBC (Auto) Crossmatch 11/11/20 11/11/20 11/11/20 14:41 17:09 21:12 WBC RBC Hgb 8.7 L Hct 25.8 L RDW Seg Neuts % (Manual) Lymphocytes % (Manual) Seg Neutrophils # Man Lymphocytes # (Manual) Monocytes # (Manual) PT INR APTT D-Dimer Heparin Anti-Xa Level ABG pH POC ABG pCO2 POC ABG pO2 ABG Hemoglobin ABG Oxyhemoglobin ABG Sodium ABG Potassium ABG Chloride ABG Glucose Carboxyhemoglobin Sodium Potassium Chloride Carbon Dioxide BUN Creatinine Glucose POC Glucose 110 H 115 H Lactic Acid Calcium Ionized Calcium Phosphorus Magnesium Lactate Dehydrogenase C-Reactive Protein NT-Pro-B Natriuret Pep Serum Total Protein Total Protein Albumin Scidz-2-Sbickdwlf Gamma Globulins PEP Interpretation TSH Arterial Blood Glucose Arterial Blood Ionized Calcium Urine WBC (Auto) Crossmatch 11/11/20 11/12/20 11/12/20 23:02 03:10 03:38 WBC RBC Hgb Hct RDW Seg Neuts % (Manual) Lymphocytes % (Manual) Seg Neutrophils # Man Lymphocytes # (Manual) Monocytes # (Manual) PT INR APTT D-Dimer Heparin Anti-Xa Level ABG pH POC ABG pCO2 POC ABG pO2 ABG Hemoglobin ABG Oxyhemoglobin ABG Sodium ABG Potassium ABG Chloride ABG Glucose Carboxyhemoglobin Sodium Potassium Chloride 109.8 H Carbon Dioxide BUN 64 H Creatinine 2.0 H Glucose 129 H POC Glucose 109 H 107 H Lactic Acid Calcium 6.7 L Ionized Calcium Phosphorus 2.10 L D Magnesium 3.50 H Lactate Dehydrogenase C-Reactive Protein NT-Pro-B Natriuret Pep Serum Total Protein Total Protein Albumin Mfwbr-3-Fvricjejt Gamma Globulins PEP Interpretation TSH Arterial Blood Glucose Arterial Blood Ionized Calcium Urine WBC (Auto) Crossmatch 11/12/20 11/12/20 11/12/20 03:38 11:44 13:49 WBC 15.2 H RBC 2.70 L Hgb 8.1 L Hct 24.3 L RDW 16.0 H Seg Neuts % (Manual) Lymphocytes % (Manual) Seg Neutrophils # Man Lymphocytes # (Manual) Monocytes # (Manual) PT INR APTT D-Dimer Heparin Anti-Xa Level ABG pH POC ABG pCO2 POC ABG pO2 ABG Hemoglobin 8.6 L ABG Oxyhemoglobin ABG Sodium ABG Potassium ABG Chloride 111.0 H ABG Glucose 135 H Carboxyhemoglobin Sodium Potassium Chloride Carbon Dioxide BUN Creatinine Glucose POC Glucose 114 H Lactic Acid Calcium Ionized Calcium Phosphorus Magnesium Lactate Dehydrogenase C-Reactive Protein NT-Pro-B Natriuret Pep Serum Total Protein Total Protein Albumin Lbgjq-1-Ndiauosxr Gamma Globulins PEP Interpretation TSH Arterial Blood Glucose 135 H Arterial Blood Ionized Calcium 4.3 L Urine WBC (Auto) Crossmatch 11/12/20 11/12/20 11/12/20 17:05 17:11 23:16 WBC RBC Hgb Hct RDW Seg Neuts % (Manual) Lymphocytes % (Manual) Seg Neutrophils # Man Lymphocytes # (Manual) Monocytes # (Manual) PT INR APTT D-Dimer Heparin Anti-Xa Level 0.25 L ABG pH POC ABG pCO2 POC ABG pO2 ABG Hemoglobin ABG Oxyhemoglobin ABG Sodium ABG Potassium ABG Chloride ABG Glucose Carboxyhemoglobin Sodium Potassium Chloride Carbon Dioxide BUN Creatinine Glucose POC Glucose 117 H 116 H Lactic Acid Calcium Ionized Calcium Phosphorus Magnesium Lactate Dehydrogenase C-Reactive Protein NT-Pro-B Natriuret Pep Serum Total Protein Total Protein Albumin Istkm-0-Jzwvmibui Gamma Globulins PEP Interpretation TSH Arterial Blood Glucose Arterial Blood Ionized Calcium Urine WBC (Auto) Crossmatch 11/13/20 11/13/20 11/13/20 05:09 05:30 05:30 WBC RBC Hgb 7.8 L Hct 22.6 L RDW Seg Neuts % (Manual) Lymphocytes % (Manual) Seg Neutrophils # Man Lymphocytes # (Manual) Monocytes # (Manual) PT INR APTT D-Dimer Heparin Anti-Xa Level ABG pH POC ABG pCO2 POC ABG pO2 ABG Hemoglobin ABG Oxyhemoglobin ABG Sodium ABG Potassium ABG Chloride ABG Glucose Carboxyhemoglobin Sodium Potassium Chloride 109.4 H Carbon Dioxide BUN 65 H Creatinine 2.0 H Glucose 137 H POC Glucose 116 H Lactic Acid Calcium 7.0 L Ionized Calcium Phosphorus 1.60 L D Magnesium 3.10 H Lactate Dehydrogenase C-Reactive Protein NT-Pro-B Natriuret Pep Serum Total Protein Total Protein Albumin Wbbua-6-Ufktgqgmh Gamma Globulins PEP Interpretation TSH Arterial Blood Glucose Arterial Blood Ionized Calcium Urine WBC (Auto) Crossmatch 11/13/20 08:16 WBC 12.8 H RBC 2.60 L Hgb 7.6 L Hct 23.0 L RDW 15.8 H Seg Neuts % (Manual) Lymphocytes % (Manual) Seg Neutrophils # Man Lymphocytes # (Manual) Monocytes # (Manual) PT INR APTT D-Dimer Heparin Anti-Xa Level ABG pH POC ABG pCO2 POC ABG pO2 ABG Hemoglobin ABG Oxyhemoglobin ABG Sodium ABG Potassium ABG Chloride ABG Glucose Carboxyhemoglobin Sodium Potassium Chloride Carbon Dioxide BUN Creatinine Glucose POC Glucose Lactic Acid Calcium Ionized Calcium Phosphorus Magnesium Lactate Dehydrogenase C-Reactive Protein NT-Pro-B Natriuret Pep Serum Total Protein Total Protein Albumin Lafqd-1-Inhtagkim Gamma Globulins PEP Interpretation TSH Arterial Blood Glucose Arterial Blood Ionized Calcium Urine WBC (Auto) Crossmatch Chest x-ray: other (none today) Allied health notes reviewed: nursing
[2020-11-13] MEDS: GLYCOPYRROLATE 0.4 MG/2 ML INJ IV SCH ×2 (14:29→22:42)
--- NOTE | 2020-11-13 15:47 | Event Note ---
I spoke to patients son Alex Devine at [phone] and updated him of current status and extubation last evening. I informed him of the most recent abd surgery and possible trickle feeds on Sunday. He inquired about location of CVA which was relayed per imaging findings. 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 I informed him I will relay the information. He was thankful for the update.
[2020-11-13] MEDS: HEPARIN/ 0.45% NACL DRIP 25,000 UNIT/500 ML BAG IV SCH (17:23)
[2020-11-13] MEDS ORDERED: TOTAL PARENTERAL NUTRITION 1,800 ML IV SCH (20:00)
[2020-11-13] MEDS ORDERED: SODIUM CHLORIDE 0.9% 500 ML 500 ML IV ONE (20:26)
[2020-11-13 20:55] LABS: INR 1.27 (0.87-1.13)
[2020-11-13 20:57] LABS: Partial Thromboplastin Time 60.6 Sec. (24.2-36.6)
[2020-11-13 21:02] LABS: Hematocrit 22.1 % (35.5-45.6); Hemoglobin 7.6 gm/dl (11.8-15.2)
[2020-11-13] MEDS: CEFEPIME/NS 2 GM/100 ML 2 GM/100 ML BAG IV SCH (22:42)
[2020-11-14] MEDS: metroNIDAZOLE/NS 500 MG/100 ML 500 MG/100 ML BAG IV SCH ×3 (01:35→17:52)
[2020-11-14] MEDS: LEVOTHYROXINE 100 MCG INJ IV SCH (05:24)
[2020-11-14] MEDS: METOPROLOL TARTRATE 5 MG/5 ML INJ IV SCH ×3 (05:25→18:27)
[2020-11-14] MEDS: INSULIN REGULAR, HUMAN 100 UNITS/1 ML SUB-Q SCH ×3 (05:29→18:24)
[2020-11-14 07:01] LABS: Hematocrit 20.8 % (35.5-45.6); Hemoglobin 7.2 gm/dl (11.8-15.2); Mean Corpuscular HGB Conc 34 % (32-34); Mean Corpuscular Volume 89 fl (84-94); Platelet Count 172 K/mm3 (140-440); Red Blood Count 2.34 M/mm3 (3.65-5.03); Red Cell Distribution Width 15.9 % (13.2-15.2)
[2020-11-14 07:51] LABS: Calcium 6.9 mg/dL (8.4-10.2)
[2020-11-14] MEDS: PANTOPRAZOLE 40 MG INJ IV SCH ×2 (09:41→21:19)
[2020-11-14] MEDS: GLYCOPYRROLATE 0.4 MG/2 ML INJ IV SCH ×2 (09:42→21:19)
--- NOTE | 2020-11-14 10:55 | Progress Note ---
Assessment and Plan Assessment and plan: This is a 70-year-old male with hypertension and hypothyroidism who was admitted with a CVA (neurology consulted, stroke pathway initiated),CHF, bilateral pneumonia, COVID 19 PUI and acute hypoxic respiratory failure. 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 Acute hypoxic respiratory failure Acute on chronic systolic heart failure with exacerbation Pneumonia Urinary tract infection Acute kidney injury Left atrial appendage thrombus Anemia s/p 5 units PRBC transfusion Hyperchloremia Hypokalemia Cardiomyopathy Left bundle branch block Hypertension Hypothyroidism -CCM, cardiology, neurology, vascular surgery, nephrology,general surgery, infectious disease, hematology/oncology, GI, surgery, WOCN, ST/PT/OT consulted, appreciate recommendations -10/23 CT head shows no acute findings, periventricular areas of low attenuation suggestive of nonspecific white matter change, concern for acute ischemic change -10/23 CTA chest shows findings suggestive of mild congestive failure, negative for pulmonary embolism -10/23 CT head with contrast shows no indication of intracranial stenosis or large vessel occlusion -10/23 CTA neck shows no indication of hemodynamically significant stenosis the carotid bifurcations are also clear, right larger than left pleural effusion, remote ACDF at C5-C6 and C6-C7 levels, multifocal neuroforaminal narrowing, mild central canal stenosis evident at C5-C6 level -10/23 bilateral carotid ultrasound shows no significant stenosis -10/23 echocardiogram shows left ventricle moderately dilated, borderline conc entric left ventricular hypertrophy, impaired LV relaxation, moderate left ventricular diastolic dysfunction, left ventricular end-diastolic pressure is moderately elevated, no left ventricle thrombus noted in the study, mildly dilated right ventricle, mildly dilated left atrium, saline bubble contrast intravenous injection does not demonstrate PFO, the ventricle systolic function is mild to moderately decreased, LVEF is 35 to 40% with hypokinesis of the septal and inferior wall, moderate to severe hypokinesis in the inferior wall, moderate hypokinesis of the mid inferior septal wall, moderate hypokinesis of the apical septal wall, trace TR, RVSP is 23 mmHg. -10/25 MRI Brain shows acute infarction in the left middle cerebral artery without hemorrhagic conversion -11/02 bilateral lower extremity Doppler ultrasound shows occlusive thrombus in the peroneal vein -11/02 s/p right lower extremity emergent embolectomy with right 4 compartment fasciotomy with vascular surgery -11/03 MRI brain shows interval evolutionary changes of the patchy areas of infarction along the left trigonal region, development of 7 mm focus of acute infarction involving more superior left frontoparietal junction -11/04 abdominal x-ray shows persistent abdominal distention -11/04 renal ultrasound shows findings of medical renal disease without other significant sonographic abnormality -11/05 abdominal x-ray shows increasing bowel distention appears to be predominantly in the colon, moderate/large chronic stool with no free air -11/05 CT head shows decreased attenuation along the superior parietal lobe compatible with evolving infarction without intracranial hemorrhage or other acute abnormality/interval changes -11/07 abdominal x-ray shows abundant fecal material noted throughout the colon and rectal vault consistent with history of constipation which are minimally improved when compared to 11/05, gas-filled and distended bowel loops are similar to prior exam -11/07 CT head shows evolving infarcts involving the left temporoparietal to the left frontoparietal lobes since 11/05 -11/08 abdomen/pelvis CT shows mild diffuse dilation of small bowel loops and proximal colon with evidence of pneumatosis concerning for ischemic bowel, small ascites but no evidence of free air or fluid collection, diffuse ileus also suspected, mild cardiomegaly with trace pericardial effusion, few tiny gallstones in the gallbladder with out abnormal dilation or wall thickening. -11/08 s/p exploratory laparotomy, small bowel resection; intaop findings: 1. Segmental infarcts of distal small intestine with pneumatosis intestinalis present - approximately 30 cm of small bowel resected, 2. SMA with strongly palpable pulse., 3. Large stool burden in left colon -11/10 Limited echocardiogram shows left ventricular systolic function moderately decreased, LVEF 35 to 40%, mild concentric LVH, trace pericardial effusion adjacent to the right ventricle, pulmonary valve is normal in structure, tricuspid valve is normal in structure -11/10 s/p reexploration of abdomen, appendectomy, small bowel anastomosis and surgeon found all viable small and large bowel with well-perfused anastomosis by ICG fluorescence imaging. EARNESTINE drain was placed. -IV antibiotics -Aspirin 325, Lipitor, BB (on hold per surgery as pt is strict NPO) -HIT panel negative -SSI -Continue home Synthroid, converted to IV -Hold antihypertensive regimen in setting of hypotension recent use of vasopressors -Transfuse for hbg <7 -TPN -BiPAP nightly and as needed -Duculox suppository -Trend CBC, BMP DVT/GI prophylaxis: SCDs to bilateral extremities while in bed, Protonix, heparin gtt Disposition: Transfer to [facility] The high probability of a clinically significant, sudden or life threatening deterioration of the [cardiac, respiratory and hemodynamic] system(s) required my full and direct attention, intervention and personal management. The aggregate critical care time was [32] minutes. This time is in addition to time spent performing reported procedures but includes the following: [x] Data Review and interpretation [x] Patient assessment and monitoring of vital signs [x] Documentation [x] Medication orders and management History Interval history: This is a 70-year-old male with hypertension and hypothyroidism who presented to the emergency department on 10/23 with confusion, weakness, exercise intolerance, shortness of breath on exertion, increased bedbound status and decreased oral intake with progressively worsened over the past 2 days prior to presentation. Patient was found to have clinical symptoms consistent with a CVA (neurology consulted, stroke pathway initiated) CHF, bilateral pneumonia, and acute hypoxic respiratory failure. Patient was initiated coronavirus, pneumonia and CHF pr otocol. Cardiology was consulted in the emergency department. 10/24/2020: Acute CVA with right hemiparesis , PT and OT 10/25/2020: Acute CVA with right hemiplegia, Rehab consult requested, Ejection fr action is 35 to 40% 10/26/2020:patient with acute CVA and right-sided hemiparesis, PT evaluated the p atient and recommended acute rehab, Case management processing the request, Possible discharge in 1 to 2 days if stable 10/27/2020: patient is clinically stable, awaiting rehab/SNF placement. DC planni ng per Case management., Neuro recommend KELLY[possible embolic CVA] follow KELLY 10/28/20: patient is doing slightly better. No new complain. Clinically stable, Patient is going for KELLY today., DC planning to rehab/SNF when cleared by neurology., DC planning per case management 10/29/20: patient is doing slightly better. No new complain. Clinically stable, continue physical therapy occupational therapy, Patient is going for KELLY on Sunday, DC planning to rehab/SNF after KELLY on Sunday, DC planning per case management 10/30/20: patient is sitting in chair. No new complain. Clinically stable, continue physical therapy occupational therapy, Patient is going for KELLY on Sunday, Awaiting DC planning to rehab/SNF after KELLY on Sunday. 10/31/20: patient is seen and examined. No new complain. Clinically stable, continue physical therapy occupational therapy., Patient is going for KELLY on Sun., Awaiting DC planning to rehab/SNF after KELLY on Sunday. 11/01/20: Patient is seen and examined, Patient with acute CVA and right-sided hemiparesis. Patient is evaluated by PT and recommended acute rehab Patient is going for KELLY today, Patient is waiting for DC planning to rehab/SNF after KELLY. life skills worker is working on discharge planning. Patient has chosen [facility] and awaiting authorization. 11/02/2020. KELLY revealed left atrial appendage thrombus. Mildly dilated left ventricle with mild left ventricular hypertrophy with moderate global left ventricular hypokinesis with EF of 40 to 45%. Anticoagulation per cardiology recommendations. Physical therapy recommendations for acute rehab. 11/03/2020. Patient appears to have worsening aphasia and worsening right-sided weakness today per neurology. MRI brain stat. Leukocytosis likely leukemoid reaction from compartment syndrome. Patient is s/p right lower extremity thombectomy with 4 compartment fasciotomy yesterday. Bleeding from incisions over night. Consider ID consultation. Start empiric antibiotics. 11/04/2020. Patient decompensated yesterday evening with hypotension and worsening mental status. Patient was started on vasopressors and intubated. Patient is currently intubated and on fentanyl for sedation. Patient with worsening leukocytosis. Lactic acidosis likely secondary to compartment syndr ome. Patient is s/p right lower extremity thombectomy with 4 compartment fasciotomy on 11/02/2020. Levaquin started empirically yesterday. ID consultation today. Patient also with worsening creatinine secondary to acute kidney injury. 11/05/2020. Patient attempted to pull out his ETT while I was examining him. Continue restraints for safety. Patient did manage to pull out his Winkler catheter and now has hematuria. We will irrigate the bladder and monitor closely patient is on anticoagulation with IV heparin. Continue Levophed drip to maintain MAP >65. Patient currently with mechanical ventilation AC mode rate of 12, tidal volume 500, FiO2 30% and a PEEP of 6. Continue fentanyl for se dation. Consult hematology hypercoagulable state given the arterial and venous thrombi. 11/06/2020. Hematology ordered argatroban and steroid pulse therapy. Follow work-up to rule out HIT. Follow-up pF4 Ab testing, Hgb electrophoresis, cardiolipin ab. Continue Levophed drip to maintain MAP >65. Patient currently with mechanical ventilation AC mode rate of 12, tidal volume 500, FiO2 30% and a PEEP of 6. Continue fentanyl for sedation. Continue antibiotics of cefepime and vancomycin. Sputum, blood and urine cultures are negative. Continue restraints for safety. 11/07/2020. Continue steroid pulse therapy per hematology recommendations. Argatroban on hold for GI bleeding and hematuria. Follow-up HIT panel and pF4 Ab testing, Hgb electrophoresis, cardiolipin ab. Continue Levophed drip to maintain MAP >65. Patient currently with mechanical ventilation AC mode rate of 12, tidal volume 500, FiO2 30% and a PEEP of 6. Continue fentanyl for sedation. Continue antibiotics of cefepime and vancomycin. Sputum, blood and urine cultures are negative. Continue restraints for safety. 11/08: CT abd/pelvis obtained today is concerning for ischemic bowels, surgery was consulted. This morning patient was on CPAP trial 03/30 at the time my examination patient is on vasopressor support with Levophed and his HIT panel is pending. He was sedated on 1 mcg of fentanyl. Lab work this morning shows leukocytosis, anemia (transfuse 1 unit PRBC), hyperkalemia (received D50 and insulin), hypochloremia and increasing BUN/creatinine. 11/09: S/p ex lap and small bowel resection on 11/08 with surgery, patient was restarted argatroban drip per surgery, HIT panel negative. CCM will start on low-dose heparin drip. Patient was given 2 g of calcium for his K 5 by nephrology. Surgery plans to return to the OR tomorrow for reexploration with possible anastomosis and abdominal closure. At the time of my examination he is sedated on propofol, fentanyl and vasopressor support with Levophed. Patient is on assist control tidal volume 500, rate 18, PEEP of 6, FiO2 25%. 11/10: Patient noted to be anemic today, PRBC transfusion ordered. Patient has 2 units ready for OR, per RN hem/onc is requesting 2 units of PRBC to be transfused. Will obtain post transfusion h/h. Planned for OR today. At the time of my examination he is sedated on propofol, fentanyl and vasopressor support with Levophed. Patient is on assist control tidal volume 500, rate 12, PEEP of 6, FiO2 25%. Pericardial effusion noted as incidental finding with imaging and cardio will conduct a limited echo to quantify amount. 11/11: Patient was taken to the OR for reexploration of abdomen, appendectomy, small bowel anastomosis and surgeon found all viable small and large bowel with well-perfused anastomosis by ICG fluorescence imaging yesterday and a EARNESTINE drain was placed. AM BMP pending, CBC stable. Patient still continues to ooze at fasciotomy site and MLA dressing. RN to change dressings. Sedated with fentanyl and on levophed (RN to attempt to titrate off as tolerated) and on AC TV 500,R12,Peep 6 and 25%FiO2. Remains on heparin gtt. CPAP trial today and LA will be obtained 11/12: Leukocytosis and kidney function tests continue to improve. Patient remains on TPN with NG tube to wall suction. Overnight the patient was agitated and removed NG tube and EARNESTINE drain, NG tube replaced. RN reported patient had a b owel movement late this morning. Patient remains on ventilator support but is on a CPAP trial at time of examination. [facility] plans to extubate today. 11/13: Patient was extubated yesterday. He has hypomagnesemia which was repleted. Patient remains intubated and NG tube to low wall suction. 11/14: Patient has hypokalemia today which has been repleted and his leukocytosis has resolved. Patient remains on a 28% ISR mask with TPN and heparin drip infusing. Patient remains on cefepime and Flagyl. Patient is able to follow simple commands. Hospitalist Physical - Constitutional Vitals: Temp Pulse Resp BP Pulse Ox 98.2 F 66 26 H 116/67 97 11/14/20 08:00 11/14/20 10:30 11/14/20 10:30 11/14/20 10:30 11/14/20 10:30 General appearance: Present: no acute distress - EENT Eyes: Present: PERRL, EOM intact ENT: hearing intact, poor dentition - Neck Neck: Present: normal ROM - Respiratory Respiratory effort: normal Respiratory: bilateral: CTA - Cardiovascular Rhythm: regular Heart Sounds: Present: S1 & S2. Absent: systolic murmur, diastolic murmur - Extremities Extremities: no ischemia, pulses intact, pulses symmetrical, normal temperature, normal color Peripheral Pulses: within normal limits - Abdominal General gastrointestinal: soft, non-tender, non-distended, hypoactive bowel sounds - Integumentary Integumentary: Present: warm, dry - Psychiatric Psychiatric: cooperative - Neurologic Neurologic: focal deficits (follows simple commands with left UE and LE) - Allied Health Allied health notes reviewed: nursing, RT HEART Score - HEART Score Troponin: Troponin T 0.026 ng/mL (0.00-0.029) 10/23/20 16:39 Results - Labs CBC & Chem 7: 11/14/20 04:00 11/14/20 04:00 Labs: Laboratory Last Values WBC 9.7 K/mm3 (4.5-11.0) 11/14/20 04:00 RBC 2.34 M/mm3 (3.65-5.03) L 11/14/20 04:00 Hgb 7.2 gm/dl (11.8-15.2) L 11/14/20 04:00 Hct 20.8 % (35.5-45.6) L 11/14/20 04:00 MCV 89 fl (84-94) 11/14/20 04:00 MCH 31 pg (28-32) 11/14/20 04:00 MCHC 34 % (32-34) 11/14/20 04:00 RDW 15.9 % (13.2-15.2) H 11/14/20 04:00 Plt Count 172 K/mm3 (140-440) 11/14/20 04:00 Lymph % (Auto) 27.8 % (13.4-35.0) 10/23/20 13:32 Blair % (Auto) 6.0 % (0.0-7.3) 10/23/20 13:32 Eos % (Auto) 1.6 % (0.0-4.3) 10/23/20 13:32 Baso % (Auto) 0.7 % (0.0-1.8) 10/23/20 13:32 Lymph # (Auto) 1.5 K/mm3 (1.2-5.4) 10/23/20 13:32 Blair # (Auto) 0.3 K/mm3 (0.0-0.8) 10/23/20 13:32 Eos # (Auto) 0.1 K/mm3 (0.0-0.4) 10/23/20 13:32 Baso # (Auto) 0.0 K/mm3 (0.0-0.1) 10/23/20 13:32 Add Manual Diff Complete 11/09/20 03:21 Total Counted 100 11/09/20 03:21 Seg Neutrophils % Licensed Weigher 11/09/20 03:21 Seg Neuts % (Manual) 89.0 % (40.0-70.0) H 11/09/20 03:21 Lymphocytes % (Manual) 6.0 % (13.4-35.0) L 11/09/20 03:21 Monocytes % (Manual) 5.0 % (0.0-7.3) 11/09/20 03:21 Metamyelocytes % 1.0 % 11/04/20 04:00 Nucleated RBC % Not Reportable 11/09/20 03:21 Seg Neutrophils # 3.4 K/mm3 (1.8-7.7) 10/23/20 13:32 Seg Neutrophils # Man 16.9 K/mm3 (1.8-7.7) H 11/09/20 03:21 Band Neutrophils # 0.0 K/mm3 11/09/20 03:21 Lymphocytes # (Manual) 1.1 K/mm3 (1.2-5.4) L 11/09/20 03:21 Abs React Lymphs (Man) 0.0 K/mm3 11/09/20 03:21 Monocytes # (Manual) 1.0 K/mm3 (0.0-0.8) H 11/09/20 03:21 Eosinophils # (Manual) 0.0 K/mm3 (0.0-0.4) 11/09/20 03:21 Basophils # (Manual) 0.0 K/mm3 (0.0-0.1) 11/09/20 03:21 Metamyelocytes # 0.0 K/mm3 11/09/20 03:21 Myelocytes # 0.0 K/mm3 11/09/20 03:21 Promyelocytes # 0.0 K/mm3 11/09/20 03:21 Blast Cells # 0.0 K/mm3 11/09/20 03:21 WBC Morphology Not Reportable 11/09/20 03:21 Hypersegmented Neuts Not Reportable 11/09/20 03:21 Hyposegmented Neuts Not Reportable 11/09/20 03:21 Hypogranular Neuts Not Reportable 11/09/20 03:21 Smudge Cells Not Reportable 11/09/20 03:21 Toxic Granulation Not Reportable 11/09/20 03:21 Toxic Vacuolation Not Reportable 11/09/20 03:21 Dohle Bodies Not Reportable 11/09/20 03:21 Pelger-Huet Anomaly Not Reportable 11/09/20 03:21 Demario Rods Not Reportable 11/09/20 03:21 Platelet Estimate Consistent w auto 11/09/20 03:21 Clumped Platelets Not Reportable 11/09/20 03:21 Plt Clumps, EDTA Not Reportable 11/09/20 03:21 Large Platelets Not Reportable 11/09/20 03:21 Giant Platelets Not Reportable 11/09/20 03:21 Platelet Satelliting Not Reportable 11/09/20 03:21 Plt Morphology Comment Not Reportable 11/09/20 03:21 RBC Morphology Not Reportable 11/09/20 03:21 Dimorphic RBCs Not Reportable 11/09/20 03:21 Polychromasia Not Reportable 11/09/20 03:21 Hypochromasia 1+ 11/09/20 03:21 Poikilocytosis Not Reportable 11/09/20 03:21 Anisocytosis 1+ 11/09/20 03:21 Microcytosis Not Reportable 11/09/20 03:21 Macrocytosis Not Reportable 11/09/20 03:21 Spherocytes Not Reportable 11/09/20 03:21 Pappenheimer Bodies Not Reportable 11/09/20 03:21 Sickle Cells Not Reportable 11/09/20 03:21 Target Cells Not Reportable 11/09/20 03:21 Tear Drop Cells Not Reportable 11/09/20 03:21 Ovalocytes Not Reportable 11/09/20 03:21 Helmet Cells Not Reportable 11/09/20 03:21 Oliva-Matteson Bodies Not Reportable 11/09/20 03:21 Vanderpool Rings Not Reportable 11/09/20 03:21 Caryn Cells Not Reportable 11/09/20 03:21 Bite Cells Not Reportable 11/09/20 03:21 Crenated Cell Not Reportable 11/09/20 03:21 Elliptocytes Not Reportable 11/09/20 03:21 Acanthocytes (Spur) Not Reportable 11/09/20 03:21 Rouleaux Not Reportable 11/09/20 03:21 Hemoglobin C Crystals Not Reportable 11/09/20 03:21 Schistocytes Not Reportable 11/09/20 03:21 Malaria parasites Not Reportable 11/09/20 03:21 Lico Bodies Not Reportable 11/09/20 03:21 Hem Pathologist Commnt No 11/09/20 03:21 PT 15.7 Sec. (12.2-14.9) H 11/13/20 Unknown INR 1.27 (0.87-1.13) H 11/13/20 Unknown APTT 60.6 Sec. (24.2-36.6) H* 11/13/20 Unknown D-Dimer 4139.61 ng/mlDDU (0-234) H 10/23/20 18:23 Heparin Anti-Xa Level 0.18 U.I./ml (0.3-0.7) L 11/14/20 02:45 Heparin Anti-Xa, Unfract Negative (Negative) 11/06/20 Unknown ABG pH 7.401 (7.320-7.450) 11/12/20 13:49 POC ABG pCO2 38.2 mmHg (32.0-48.0) 11/12/20 13:49 POC ABG pO2 100.6 mmHg (83-108) 11/12/20 13:49 POC ABG HCO3 23.2 11/12/20 13:49 ABG O2 Saturation 97.9 (0-100) 11/12/20 13:49 POC ABG Base Excess -1.4 11/12/20 13:49 ABG Hemoglobin 8.6 (12.0-17.5) L 11/12/20 13:49 ABG Oxyhemoglobin 96.5 (94-98) 11/12/20 13:49 ABG Methemoglobin 0.3 (0.0-1.5) 11/12/20 13:49 ABG Sodium 136.4 mmol/L (136.0-145.0) 11/12/20 13:49 ABG Potassium 3.9 mmol/L (3.40-4.50) 11/12/20 13:49 ABG Chloride 111.0 mmol/L (98-107) H 11/12/20 13:49 ABG Glucose 135 mg/dL (65-95) H 11/12/20 13:49 Carboxyhemoglobin 1.1 (0.5-1.5) 11/12/20 13:49 FiO2 % 25.0 11/12/20 13:49 Sodium 140 mmol/L (137-145) 11/14/20 04:00 Potassium 3.2 mmol/L (3.6-5.0) L 11/14/20 04:00 Chloride 108.0 mmol/L (98-107) H 11/14/20 04:00 Carbon Dioxide 24 mmol/L (22-30) 11/14/20 04:00 Anion Gap 11 mmol/L 11/14/20 04:00 BUN 69 mg/dL (9-20) H 11/14/20 04:00 Creatinine 2.2 mg/dL (0.8-1.3) H 11/14/20 04:00 Estimated GFR 36 ml/min 11/14/20 04:00 BUN/Creatinine Ratio 31 % 11/14/20 04:00 Glucose 126 mg/dL (75-100) H 11/14/20 04:00 POC Glucose 120 mg/dL (70-105) H 11/14/20 05:26 Lactic Acid 0.90 mmol/L (0.7-2.0) 11/11/20 13:57 Calcium 6.9 mg/dL (8.4-10.2) L 11/14/20 04:00 Ionized Calcium 4.7 mg/dL (4.8-5.6) L 11/06/20 06:00 Phosphorus 2.90 mg/dL (2.5-4.5) D 11/14/20 04:00 Magnesium 2.90 mg/dL (1.7-2.3) H 11/14/20 04:00 Ferritin 238.5 ng/mL (30.0-300.0) 10/23/20 18:23 Total Bilirubin 0.50 mg/dL (0.1-1.2) 11/08/20 19:11 Direct Bilirubin < 0.2 mg/dL (0-0.2) 11/08/20 19:11 Indirect Bilirubin 0.3 mg/dL 11/08/20 19:11 AST 21 units/L (5-40) 11/08/20 19:11 ALT 27 units/L (7-56) 11/08/20 19:11 Alkaline Phosphatase 41 units/L (35-129) 11/08/20 19:11 Lactate Dehydrogenase 334 units/L (91-180) H 10/23/20 18:23 Troponin T 0.026 ng/mL (0.00-0.029) 10/23/20 16:39 C-Reactive Protein 8.30 mg/dL (0.00-1.30) H 11/04/20 13:01 NT-Pro-B Natriuret Pep 5806 pg/mL (0-900) H 10/23/20 13:32 Serum Total Protein 4.1 g/dL (6.1-8.1) L 11/06/20 Unknown Total Protein 3.8 g/dL (6.3-8.2) L 11/08/20 19:11 Albumin 2.2 g/dL (3.9-5) L 11/08/20 19:11 Albumin/Globulin Ratio 1.4 % 11/08/20 19:11 [id number]-9-[id number] 0.5 g/dL (0.2-0.3) H 11/06/20 Unknown Lbtpz-5-[id number] 0.7 g/dL (0.5-0.9) 11/06/20 Unknown Beta Globulins 0.2 g/dL (0.2-0.5) 11/06/20 Unknown Gamma Globulins 0.4 g/dL (0.8-1.7) L 11/06/20 Unknown Abnorm Protein Band 1 see below 11/06/20 Unknown PEP Interpretation see below H 11/06/20 Unknown Triglycerides 63 mg/dL (2-149) 11/10/20 05:30 Cholesterol 139 mg/dL (50-199) 10/24/20 09:29 LDL Cholesterol Direct 87 mg/dL (50-130) 10/24/20 09:29 HDL Cholesterol 46 mg/dL (40-59) 10/24/20 09:29 Cholesterol/HDL Ratio 3.02 % 10/24/20 09:29 Serotonin Release Assay See scanned result 11/06/20 Unknown Procalcitonin 0.99 ng/mL (<0.15) 11/03/20 21:14 TSH 6.540 mlU/mL (0.270-4.200) H 10/23/20 18:23 TSH 7.100 mlU/mL (0.270-4.200) H 10/23/20 18:23 Free T4 1.33 ng/dL (0.76-1.46) 10/23/20 18:23 Arterial Blood Glucose 135 mg/dL (65-95) H 11/12/20 13:49 Arterial Blood Ionized Calcium 4.3 mg/dL (4.6-5.3) L 11/12/20 13:49 Urine Color Yellow (Yellow) 11/04/20 11:00 Urine Turbidity Hazy (Clear) 11/04/20 11:00 Urine pH 5.0 (5.0-7.0) 11/04/20 11:00 Ur Specific Liberty 1.017 (1.003-1.030) 11/04/20 11:00 Urine Protein 30 mg/dl mg/dL (Negative) 11/04/20 11:00 Urine Glucose (UA) 50 mg/dL (Negative) 11/04/20 11:00 Urine Ketones Neg mg/dL (Negative) 11/04/20 11:00 Urine Blood Neg (Negative) 11/04/20 11:00 Urine Nitrite Neg (Negative) 11/04/20 11:00 Urine Bilirubin Neg (Negative) 11/04/20 11:00 Urine Urobilinogen < 2.0 mg/dL (<2.0) 11/04/20 11:00 Ur Leukocyte Esterase Tr (Negative) 11/04/20 11:00 Urine WBC (Auto) 19.0 /HPF (0.0-6.0) H 11/04/20 11:00 Urine RBC (Auto) 3.0 /HPF (0.0-6.0) 11/04/20 11:00 U Epithel Cells (Auto) < 1.0 /HPF (0-13.0) 11/04/20 11:00 Urine Mucus Few /HPF 11/04/20 11:00 Urine Eosinophils None seen (None Seen) 11/04/20 12:50 Urine Creatinine < 4.2 mg/dL (0.1-20.0) 11/04/20 12:50 Urine Sodium 10 mmol/L 11/04/20 12:50 Random Vancomycin 10.7 ug/mL (0-40.0) 11/08/20 04:39 Heparin-induced Plt Ab Negative (Negative) 11/06/20 Unknown UF Heparin High Dose 0 % Release 11/06/20 Unknown DYLAN UFH Low Dose 0.1 0 % Release 11/06/20 Unknown DYLAN UFH Low Dose 0.5 0 % Release 11/06/20 Unknown Cardiolipid IgG Ab <14 GPL (<=14) 11/06/20 Unknown Cardiolipid IgA Ab <11 APL (<=11) 11/06/20 Unknown Cardiolipid IgM Ab <12 MPL (<=12) 11/06/20 Unknown Coronavirus (PCR) Negative (Negative) 10/24/20 09:57 Blood Type O POSITIVE 11/13/20 20:35 Antibody Screen Negative 11/13/20 20:35 Crossmatch See Detail 11/13/20 20:35 Winkler/IV: Voiding Method Indwelling Catheter Active Medications - Current Medications Current Medications: Generic Name Dose Route Start Last Admin Trade Name Freq PRN Reason Stop Dose Admin Bisacodyl 10 mg 11/08/20 22:00 11/14/20 09:42 Bisacodyl 10 Mg Rect Supp [place] 10 mg BID ALEX Administration Dextrose 50 ml 11/08/20 08:04 Dextrose 50% In Water (25gm) 50 Ml Syringe IV Q30MIN PRN Hypoglycemia Protocol Fentanyl 50 mcg 11/03/20 16:46 11/11/20 13:03 Fentanyl 100 Mcg/2 Ml Inj IV 50 mcg Q10MIN PRN Administration ANALGESIA Glycopyrrolate 0.2 mg 11/13/20 13:00 11/14/20 09:42 Glycopyrrolate 0.4 Mg/2 Ml Inj IV 11/20/20 12:59 0.2 mg BID ALEX Administration Hydromorphone HCl 1 mg 11/11/20 13:35 Hydromorphone 1 Mg/1 Ml Inj IV Q4H PRN Pain , Severe (7-10) Hydrophilic Ointment 1 applic 11/03/20 16:46 Lip Therapy Vaseline TP Q2HR PRN Dry Lips Fentanyl Citrate 2,000 mcg in 100 mls @ 4.86 mls/hr 11/03/20 17:24 11/12/20 19:21 Fentanyl Drip Premix IV 0 mcg/kg/hr TITR ALEX 0 mls/hr Titration Protocol 1 MCG/KG/HR NORepinephrine/NS 8 MG-250 ML 8 mg in 250 mls @ 3.75 mls/hr 11/03/20 18:00 11/11/20 12:20 Norepinephrine/Ns 8 Mg-250 Ml (Double Conc) IV 0 mcg/min TITRATE ALEX 0 mls/hr Titration Protocol 2 MCG/MIN Cefepime HCl 2 gm in 100 mls @ 200 mls/hr 11/08/20 22:00 11/13/20 22:42 Cefepime/Ns 2 Gm/100 Ml IV 11/14/20 22:29 200 mls/hr Q24H ALEX Administration Protocol Propofol 1,000 mg in 100 mls @ 3.126 mls/hr 11/08/20 17:00 11/11/20 04:00 Diprivan 10 Mg/Ml IV 0 mcg/kg/min TITR ALEX 0 mls/hr Titration Protocol 5 MCG/KG/MIN Metronidazole 500 mg in 100 mls @ 100 mls/hr 11/08/20 17:00 11/14/20 09:41 Flagyl 500 Mg/100 Ml IV 11/14/20 17:59 100 mls/hr Q8H ALEX Administration Protocol Heparin Sodium/Sodium Chloride 25,000 unit in 500 mls @ 30 mls/hr 11/09/20 13:00 11/14/20 03:31 Heparin/ 0.45% Nacl-25,000 Unit/500 Ml IV 1,100 units/hr TITR ALEX 22 mls/hr Titration Protocol 1,500 UNITS/HR Amino Acids/Electrolytes/Dextrose 1,800 mls @ 75 mls/hr 11/13/20 20:00 11/13/20 22:44 Tpn Adult IV 11/14/20 19:59 75 mls/hr DAILY@2000 ALEX Administration Protocol Potassium Chloride 20 meq in 100 mls @ 100 mls/hr 11/14/20 09:00 Kcl 20meq/100ml IV 11/14/20 10:59 Q1H ALEX Insulin Human Regular 0 units 11/12/20 12:00 11/14/20 05:29 Insulin Regular, Human 100 Units/1 Ml SUB-Q Not Given Q6HR [facility] Protocol Levothyroxine Sodium 75 mcg 11/09/20 06:00 11/14/20 05:24 Levothyroxine 100 Mcg Inj IV 75 mcg DAILY@0600 ALEX Administration Metoprolol Tartrate 5 mg 11/12/20 12:00 11/14/20 05:25 Metoprolol Tartrate 5 Mg/5 Ml Inj IV 5 mg Q6HR ALEX Administration Multi-Ingred Cream/Lotion/Oil/Oint 1 applic 11/03/20 16:46 Mineral Oil/Petrolatum, White Ophth Oint 3.5 Gm OU Q4HR PRN Dry Eye(s) Ondansetron HCl 4 mg 10/23/20 20:00 11/07/20 23:09 Ondansetron 4 Mg/2 Ml Inj IV 4 mg Q8H PRN Administration Nausea And Vomiting Pantoprazole Sodium 40 mg 11/07/20 22:00 11/14/20 09:41 Pantoprazole 40 Mg Inj IV 40 mg BID ALEX Administration Scopolamine 1 each 11/16/20 10:00 Scopolamine Transdermal Patch 72 Hr TD Q3D ALEX Sodium Chloride 10 ml 10/23/20 20:00 11/14/20 09:42 Sodium Chloride 0.9% 10 Ml Flush Syringe IV 10 ml PRN PRN Administration LINE FLUSH Nutrition/Malnutrition Assess - Dietary Evaluation Nutrition/Malnutrition Findings: Nutrition Notes Start: 10/24/20 11:33 Freq: Status: Active Protocol: Document 11/14/20 10:26 LP (Rec: 11/14/20 10:30 LP [id number]) Nutrition Notes Initial or Follow up Reassessment Current Diagnosis Acute Kidney Injury,Sepsis, Hypertension,Heart Failure, Respiratory Failure,Stroke Other Pertinent Diagnosis post op ileus Current Diet TPN at 75ml/hr Labs/Tests K 3.2 Pertinent Medications 40mEq KCL Height 5 ft 11 in Weight 108.5 kg [place] Body Weight (kg) 78.18 BMI 33.3 Weight Status Overweight Subjective/Other Information CPN day 5. No new changes. Percent of energy/protein needs met: 100%/96% Burn Absent Trauma Absent GI Symptoms Other Current % PO Negligible Minimum of two criteria No Fluid Accumulation Moderate to Severe (severe) #3 Nutrition Diagnosis Increased nutrient needs ( specify in comment below) Comments: Protein As Evidenced by Signs and Symptoms Pt with leg wounds Diagnosis Progress(for reassessment Continues documentation) #2 Nutrition Diagnosis Inadequate oral intake Diagnosis Progress(for reassessment Continues documentation) Is patient on ventilator? No Is Patient Ambulatory and/or Out of Bed No REE-([facility]-confined to bed) 2245.968 Kcal/Kg value to use for calculation 18 Approximate Energy Requirements Using 1953 kcal/Kg Calculation Used for Recommendations Kcal/kg Additional Notes Protein: 116-140 g (1.25-1.5 g /kg 93kg adj wt) Fluid: 1 ml/kcal Nutrition Intervention Change Diet Order: Continue CPN Nutrition Support: CPN at 75ml/hr: 51mEq K, MVI. Kcal 1,535 Protein (gm) 150 Carbohydrates (gm) 275 Fat (gm) 0 Fluid (mL) 1,800 Fiber (gm) 0 Goal #1 Meet kcal and protein needs as best as possible via CPN Goal #2 Wound healing Anticipated Discharge Needs: Unable to determine at this time Follow-Up By: 11/15/20 Additional Comments Labs in AM: BMP, Mg, Phos
[2020-11-14] MEDS: POTASSIUM CHLORIDE 20 MEQ 20 MEQ/100 ML BAG IV SCH ×2 (11:38→13:20)
--- NOTE | 2020-11-14 12:12 | Progress Note ---
Assessment and Plan 1. Acute kidney injury: Vasomotor STACEY in the setting of shock. Renal US negative for hydro. Monitor renal function. Renal prognosis is guarded. Creatinine level is improving. Avoid nephrotoxic agents. Meds dosage based on GFR. 2. FEN: Hypokalemia, replete K, monitor. Hyperchloremia, monitor. Diuretics as needed. Monitor lytes and volume status. 3. Severe sepsis with shock: Likely secondary to acute thrombus of the right lower extremity complicated with compartment syndrome +/- UTI. Off pressors. Followed by ID. 4. 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 Seen by Neurology. 5. Acute hypoxemic respiratory failure: S/p extubated. 6. Acute on chronic systolic heart failure: EF 40-45%. Followed by [facility]. 7. 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 8. Acute R LE ischemia: S/p thrombectomy. 9. Mild pneumatosis of ascending colon: Bowel ischemia. S/p Ex-lap and small bowel resection 11/08. S/p reexploration of abdomen, appendectomy, small bowel anastamosis 11/10. Followed by General surgery. 10. Normochromic anemia: Monitor. 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 Subjective: Patient was seen and examined at the bedside. Examination: General appearance: well-developed, appears stated age, no distress HEENT: SCOTTY, atraumatic Neck: trachea midline Respiratory: Clear to Auscultation Heart: S1S2, regular, no murmur Abdomen: soft, appears distended, bowel sounds heard, NT Integumentary: R LE dressing noted Neurologic: lethargic, opens eyes intermittently, not following any command Ext: bilateral LE edema noted, R > L : Winkler catheter, scrotal edema noted Subjective Date of service: 11/14/20 Principal diagnosis: Ac hypoxemic resp failure; CVA; Acute limb ischemia; Acute encephalopathy Objective - Vital Signs Vital signs: Vital Signs - 12hr 11/14/20 11/14/20 11/14/20 00:30 01:00 01:30 Temperature Pulse Rate 60 61 59 L Pulse Rate [ From Monitor] Respiratory 21 25 H 19 Rate Blood Pressure 110/63 110/64 110/64 O2 Sat by Pulse 100 100 100 Oximetry 11/14/20 11/14/20 11/14/20 02:00 02:30 03:00 Temperature Pulse Rate 63 64 63 Pulse Rate [ 63 From Monitor] Respiratory 24 25 H 24 Rate Blood Pressure 110/64 102/67 111/62 O2 Sat by Pulse 100 99 100 Oximetry 11/14/20 11/14/20 11/14/20 03:12 03:30 04:00 Temperature 99.4 F Pulse Rate 65 59 L Pulse Rate [ 63 From Monitor] Respiratory 24 21 Rate Blood Pressure 111/62 109/59 O2 Sat by Pulse 100 100 Oximetry 11/14/20 11/14/20 11/14/20 04:30 05:00 05:25 Temperature Pulse Rate 59 L 60 66 Pulse Rate [ From Monitor] Respiratory 19 22 Rate Blood Pressure 109/59 109/61 109/61 O2 Sat by Pulse 100 100 Oximetry 11/14/20 11/14/20 11/14/20 05:30 06:00 06:30 Temperature Pulse Rate 57 L 59 L 62 Pulse Rate [ 63 From Monitor] Respiratory 24 26 H 26 H Rate Blood Pressure 109/61 111/57 111/57 O2 Sat by Pulse 100 100 100 Oximetry 11/14/20 11/14/20 11/14/20 07:00 07:30 08:00 Temperature 98.2 F Pulse Rate 58 L 59 L 61 Pulse Rate [ 62 From Monitor] Respiratory 23 23 25 H Rate Blood Pressure 109/63 109/63 110/63 O2 Sat by Pulse 100 98 100 Oximetry 11/14/20 11/14/20 11/14/20 08:30 09:00 09:05 Temperature Pulse Rate 80 63 Pulse Rate [ From Monitor] Respiratory 32 H 21 Rate Blood Pressure 110/63 120/66 O2 Sat by Pulse 97 98 100 Oximetry 11/14/20 11/14/20 11/14/20 09:30 10:00 10:30 Temperature Pulse Rate 66 65 66 Pulse Rate [ From Monitor] Respiratory 27 H 26 H 26 H Rate Blood Pressure 120/66 116/67 116/67 O2 Sat by Pulse 99 99 97 Oximetry 11/14/20 11:00 Temperature Pulse Rate 76 Pulse Rate [ From Monitor] Respiratory 27 H Rate Blood Pressure 107/71 O2 Sat by Pulse 98 Oximetry - Lab 11/14/20 04:00 11/14/20 04:00 Most recent lab results ABG pH 7.401 (7.320-7.450) 11/12/20 13:49 ABG O2 Saturation 97.9 (0-100) 11/12/20 13:49 Calcium 6.9 mg/dL (8.4-10.2) L 11/14/20 04:00 Phosphorus 2.90 mg/dL (2.5-4.5) D 11/14/20 04:00 Magnesium 2.90 mg/dL (1.7-2.3) H 11/14/20 04:00 Urine Creatinine < 4.2 mg/dL (0.1-20.0) 11/04/20 12:50 Urine Sodium 10 mmol/L 11/04/20 12:50 Medications & Allergies - Medications Allergies/Adverse Reactions: Allergies No Known Allergies Allergy (Unverified 10/23/20 12:44) Home Medications: Home Medications Medication Instructions Recorded Confirmed Last Taken Type Levothyroxine Sodium 150 mcg PO DAILY 10/31/20 10/31/20 Unknown History [Levothyroxine] carvediloL [Coreg] 6.25 mg PO BID 10/31/20 10/31/20 Unknown History lisinopriL [Lisinopril] 10 mg PO DAILY 10/31/20 10/31/20 Unknown History Active Medications: Generic Name Dose Route Start Last Admin Trade Name Freq PRN Reason Stop Dose Admin Bisacodyl 10 mg 11/08/20 22:00 11/14/20 09:42 Bisacodyl 10 Mg Rect Supp [place] 10 mg BID ALEX Administration Dextrose 50 ml 11/08/20 08:04 Dextrose 50% In Water (25gm) 50 Ml Syringe IV Q30MIN PRN Hypoglycemia Protocol Fentanyl 50 mcg 11/03/20 16:46 11/11/20 13:03 Fentanyl 100 Mcg/2 Ml Inj IV 50 mcg Q10MIN PRN Administration ANALGESIA Glycopyrrolate 0.2 mg 11/13/20 13:00 11/14/20 09:42 Glycopyrrolate 0.4 Mg/2 Ml Inj IV 11/20/20 12:59 0.2 mg BID ALEX Administration Hydromorphone HCl 1 mg 11/11/20 13:35 Hydromorphone 1 Mg/1 Ml Inj IV Q4H PRN Pain , Severe (7-10) Hydrophilic Ointment 1 applic 11/03/20 16:46 Lip Therapy Vaseline TP Q2HR PRN Dry Lips Fentanyl Citrate 2,000 mcg in 100 mls @ 4.86 mls/hr 11/03/20 17:24 11/12/20 19:21 Fentanyl Drip Premix IV 0 mcg/kg/hr TITR ALEX 0 mls/hr Titration Protocol 1 MCG/KG/HR NORepinephrine/NS 8 MG-250 ML 8 mg in 250 mls @ 3.75 mls/hr 11/03/20 18:00 11/11/20 12:20 Norepinephrine/Ns 8 Mg-250 Ml (Double Conc) IV 0 mcg/min TITRATE ALEX 0 mls/hr Titration Protocol 2 MCG/MIN Cefepime HCl 2 gm in 100 mls @ 200 mls/hr 11/08/20 22:00 11/13/20 22:42 Cefepime/Ns 2 Gm/100 Ml IV 11/14/20 22:29 200 mls/hr Q24H ALEX Administration Protocol Propofol 1,000 mg in 100 mls @ 3.126 mls/hr 11/08/20 17:00 11/11/20 04:00 Diprivan 10 Mg/Ml IV 0 mcg/kg/min TITR ALEX 0 mls/hr Titration Protocol 5 MCG/KG/MIN Metronidazole 500 mg in 100 mls @ 100 mls/hr 11/08/20 17:00 11/14/20 09:41 Flagyl 500 Mg/100 Ml IV 11/14/20 17:59 100 mls/hr Q8H ALEX Administration Protocol Heparin Sodium/Sodium Chloride 25,000 unit in 500 mls @ 30 mls/hr 11/09/20 13:00 11/14/20 03:31 Heparin/ 0.45% Nacl-25,000 Unit/500 Ml IV 1,100 units/hr TITR ALEX 22 mls/hr Titration Protocol 1,500 UNITS/HR Amino Acids/Electrolytes/Dextrose 1,800 mls @ 75 mls/hr 11/13/20 20:00 11/13/20 22:44 Tpn Adult IV 11/14/20 19:59 75 mls/hr DAILY@1999 ALEX Administration Protocol Amino Acids/Electrolytes/Dextrose 1,800 mls @ 75 mls/hr 11/14/20 20:00 Tpn Adult IV 11/15/20 19:59 DAILY@1999 [facility] Protocol Insulin Human Regular 0 units 11/12/20 12:00 11/14/20 05:29 Insulin Regular, Human 100 Units/1 Ml SUB-Q Not Given Q6HR [facility] Protocol Levothyroxine Sodium 75 mcg 11/09/20 06:00 11/14/20 05:24 Levothyroxine 100 Mcg Inj IV 75 mcg DAILY@0600 [facility] Administration Metoprolol Tartrate 5 mg 11/12/20 12:00 11/14/20 05:25 Metoprolol Tartrate 5 Mg/5 Ml Inj IV 5 mg Q6HR ALEX Administration Multi-Ingred Cream/Lotion/Oil/Oint 1 applic 11/03/20 16:46 Mineral Oil/Petrolatum, White Ophth Oint 3.5 Gm OU Q4HR PRN Dry Eye(s) Ondansetron HCl 4 mg 10/23/20 20:00 11/07/20 23:09 Ondansetron 4 Mg/2 Ml Inj IV 4 mg Q8H PRN Administration Nausea And Vomiting Pantoprazole Sodium 40 mg 11/07/20 22:00 11/14/20 09:41 Pantoprazole 40 Mg Inj IV 40 mg BID [facility] Administration Scopolamine 1 each 11/16/20 10:00 Scopolamine Transdermal Patch 72 Hr TD Q3D [facility] Sodium Chloride 10 ml 10/23/20 20:00 11/14/20 09:42 Sodium Chloride 0.9% 10 Ml Flush Syringe IV 10 ml PRN PRN Administration LINE FLUSH
--- NOTE | 2020-11-14 14:38 | Progress Note ---
Assessment and Plan Acute hypoxemic respiratory failure. Acute embolic cerebrovascular accident. Acute limb ischemia, status post thrombectomy. Left atrial appendage. Acute congestive heart failure exacerbation. Obesity. History of hypothyroidism. Leukocytosis. Acute encephalopathy, toxic metabolic - trend H&H - prn NT suctioning & oral hygiene - continue Robinul and scopolamine - continue aspiration precautions, HOB > 40 degrees - continue BIPAP (03/29) scheduled qhs with prn daytime use for ventilatory assist - continue care as below otherwise; - continue low intensity Heparin I.V. and follow H&H - Keep NPO with NGT to LIS - complete antiinfective's per ID recommendation - azotemia per nephrology team - continue to wean supplemental oxygen for target O2 sat's > 90% acutely - continue lung protective strategies - continue bronchodilators with pulmonary hygiene per RT - wean per pulmonary driven protocols otherwise - avoid nephrotoxins, renally dose all medications - continue accuchecks with glycemic control per SSI (While critically ill target blood glucose of 140-180 mg/dL; avoid hypoglycemia) - continue to avoid benzodiazepine's, reduce the possibility of delirium - complete AB's per ID rec's - prn analgesia per CPOT score - Maintenance of sleep-wake cycle, avoid delirium - G.I. & VTE prophylaxis - PT/OT/ROM exercises - continue mobility protocols for pressure ulcer prophylaxis - Monitor hemodynamics closely - continue other care per attending / other consultants - discharge planning ongoing concurrently ..... doing a little better and will step down to IMCU .... Re-evaluate in am & prn CONDITION: CRITICAL PROGNOSIS: GUARDED CODE STATUS: FULL CODE The high probability of a clinically significant, sudden or life-threatening deterioration of the [respiratory, cardiovascular, renal, henatologic & neurologic] system(s) required my full and direct attention, intervention and personal management. The aggregate critical care time was [32] minutes without overlap. Time includes spent on; [x] Data Review and interpretation [x] Patient assessment and monitoring of vital signs [x] Documentation [x] Medication orders and management Subjective Date of service: 11/14/20 Principal diagnosis: Ac hypoxemic resp failure; CVA; Acute limb ischemia; Acute encephalopathy Interval history: Patient is seen today for: Acute hypoxemic respiratory failure; Acute embolic CVA; Acute limb ischemia; Left atrial appendage; Acute CHF; Obesity; Acute encephalopathy, toxic metabolic Seen and examined at bedside; 24hour events reviewed; nursing and respiratory care staff consulted; no adverse overnight events reported to me; resting peacefully in bed; no gross bleeding but H&H still trending down; less posterior oropharyngeal secretions today but had some blood tinged overnight per4 RN; afebrile; he nods head "no" to pain question Objective Vital Signs - 12hr 11/14/20 11/14/20 11/14/20 03:00 03:12 03:30 Temperature 99.4 F Pulse Rate 63 65 Pulse Rate [ From Monitor] Respiratory 24 24 Rate Blood Pressure 111/62 111/62 O2 Sat by Pulse 100 100 Oximetry 11/14/20 11/14/20 11/14/20 04:00 04:30 05:00 Temperature Pulse Rate 59 L 59 L 60 Pulse Rate [ 63 From Monitor] Respiratory 21 19 22 Rate Blood Pressure 109/59 109/59 109/61 O2 Sat by Pulse 100 100 100 Oximetry 11/14/20 11/14/20 11/14/20 05:25 05:30 06:00 Temperature Pulse Rate 66 57 L 59 L Pulse Rate [ 63 From Monitor] Respiratory 24 26 H Rate Blood Pressure 109/61 109/61 111/57 O2 Sat by Pulse 100 100 Oximetry 11/14/20 11/14/20 11/14/20 06:30 07:00 07:30 Temperature Pulse Rate 62 58 L 59 L Pulse Rate [ From Monitor] Respiratory 26 H 23 23 Rate Blood Pressure 111/57 109/63 109/63 O2 Sat by Pulse 100 100 98 Oximetry 11/14/20 11/14/20 11/14/20 08:00 08:30 09:00 Temperature 98.2 F Pulse Rate 61 80 63 Pulse Rate [ 62 From Monitor] Respiratory 25 H 32 H 21 Rate Blood Pressure 110/63 110/63 120/66 O2 Sat by Pulse 100 97 98 Oximetry 11/14/20 11/14/20 11/14/20 09:05 09:30 10:00 Temperature Pulse Rate 66 65 Pulse Rate [ From Monitor] Respiratory 27 H 26 H Rate Blood Pressure 120/66 116/67 O2 Sat by Pulse 100 99 99 Oximetry 11/14/20 11/14/20 11/14/20 10:30 11:00 11:30 Temperature Pulse Rate 66 76 73 Pulse Rate [ From Monitor] Respiratory 26 H 27 H 29 H Rate Blood Pressure 116/67 107/71 107/71 O2 Sat by Pulse 97 98 98 Oximetry 11/14/20 11/14/20 11/14/20 12:00 12:16 12:30 Temperature Pulse Rate 68 67 85 Pulse Rate [ 71 From Monitor] Respiratory 24 30 H Rate Blood Pressure 124/70 124/70 124/70 O2 Sat by Pulse 98 94 Oximetry 11/14/20 11/14/20 11/14/20 13:00 13:30 14:00 Temperature Pulse Rate 71 59 L 63 Pulse Rate [ From Monitor] Respiratory 28 H 27 H 26 H Rate Blood Pressure 131/75 131/75 130/76 O2 Sat by Pulse 98 99 99 Oximetry Constitutional: appears uncomfortable, other (elderly male with mildly increased respiratory effort at rest ) Eyes: non-icteric ENT: oropharynx moist, oropharyngeal exudate pre (less today), other (extubated) Neck: supple, no lymphadenopathy, no JVD Effort: mildly labored Ascultation: Bilateral: diminished breath sounds, rales (R>L base) Percussion: Bilateral: not dull Cardiovascular: regular rate and rhythm, murmur noted (COLE) Gastrointestinal: hypoactive bowel sounds, non-tender, other (midline incision in white dressing) Integumentary: normal Extremities: no cyanosis, pink and warm, edema (RLExt), other (RLExt fasciotomy) Neurologic: pupils equal and round, CN II-XII normal, other (Right Hemiparesis) Psychiatric: mood appropriate, affect normal CBC and BMP: 11/14/20 04:00 11/14/20 04:00 ABG, PT/INR, D-dimer: ABG ABG pH 7.401 (7.320-7.450) 11/12/20 13:49 POC ABG pCO2 38.2 mmHg (32.0-48.0) 11/12/20 13:49 POC ABG pO2 100.6 mmHg (83-108) 11/12/20 13:49 POC ABG HCO3 23.2 11/12/20 13:49 ABG O2 Saturation 97.9 (0-100) 11/12/20 13:49 PT/INR, D-dimer PT 15.7 Sec. (12.2-14.9) H 11/13/20 Unknown INR 1.27 (0.87-1.13) H 11/13/20 Unknown D-Dimer 4139.61 ng/mlDDU (0-234) H 10/23/20 18:23 Abnormal lab findings: Abnormal Labs 10/23/20 10/23/20 10/23/20 13:32 18:23 18:23 WBC RBC Hgb Hct RDW Seg Neuts % (Manual) Lymphocytes % (Manual) Seg Neutrophils # Man Lymphocytes # (Manual) Monocytes # (Manual) PT INR APTT D-Dimer 4139.61 H Heparin Anti-Xa Level ABG pH POC ABG pCO2 POC ABG pO2 ABG Hemoglobin ABG Oxyhemoglobin ABG Sodium ABG Potassium ABG Chloride ABG Glucose Carboxyhemoglobin Sodium Potassium Chloride 109.1 H Carbon Dioxide BUN Creatinine Glucose POC Glucose Lactic Acid Calcium Ionized Calcium Phosphorus Magnesium Lactate Dehydrogenase 334 H C-Reactive Protein 2.50 H NT-Pro-B Natriuret Pep 5806 H Serum Total Protein Total Protein Albumin Nknun-6-Mruwhjtru Gamma Globulins PEP Interpretation TSH Arterial Blood Glucose Arterial Blood Ionized Calcium Urine WBC (Auto) Crossmatch 10/23/20 10/23/20 10/26/20 18:23 18:23 05:34 WBC RBC Hgb Hct RDW Seg Neuts % (Manual) Lymphocytes % (Manual) Seg Neutrophils # Man Lymphocytes # (Manual) Monocytes # (Manual) PT INR APTT D-Dimer Heparin Anti-Xa Level ABG pH POC ABG pCO2 POC ABG pO2 ABG Hemoglobin ABG Oxyhemoglobin ABG Sodium ABG Potassium ABG Chloride ABG Glucose Carboxyhemoglobin Sodium Potassium Chloride Carbon Dioxide BUN 30 H Creatinine Glucose 120 H POC Glucose Lactic Acid Calcium Ionized Calcium Phosphorus Magnesium Lactate Dehydrogenase C-Reactive Protein NT-Pro-B Natriuret Pep Serum Total Protein Total Protein Albumin Cifhi-9-Fjbwowyvs Gamma Globulins PEP Interpretation TSH 7.100 H 6.540 H Arterial Blood Glucose Arterial Blood Ionized Calcium Urine WBC (Auto) Crossmatch 10/27/20 10/28/20 11/02/20 08:55 05:25 07:17 WBC 15.8 H RBC Hgb Hct RDW Seg Neuts % (Manual) Lymphocytes % (Manual) Seg Neutrophils # Man Lymphocytes # (Manual) Monocytes # (Manual) PT INR APTT D-Dimer Heparin Anti-Xa Level ABG pH POC ABG pCO2 POC ABG pO2 ABG Hemoglobin ABG Oxyhemoglobin ABG Sodium ABG Potassium ABG Chloride ABG Glucose Carboxyhemoglobin Sodium Potassium Chloride Carbon Dioxide BUN 28 H 28 H Creatinine Glucose 124 H 110 H POC Glucose Lactic Acid Calcium 8.2 L Ionized Calcium Phosphorus Magnesium Lactate Dehydrogenase C-Reactive Protein NT-Pro-B Natriuret Pep Serum Total Protein Total Protein Albumin Qytry-8-Ttvmsqddq Gamma Globulins PEP Interpretation TSH Arterial Blood Glucose Arterial Blood Ionized Calcium Urine WBC (Auto) Crossmatch 11/02/20 11/02/20 11/02/20 07:17 15:00 15:06 WBC RBC Hgb 15.7 H Hct 47.5 H D RDW Seg Neuts % (Manual) Lymphocytes % (Manual) Seg Neutrophils # Man Lymphocytes # (Manual) Monocytes # (Manual) PT INR APTT D-Dimer Heparin Anti-Xa Level ABG pH POC ABG pCO2 POC ABG pO2 ABG Hemoglobin ABG Oxyhemoglobin ABG Sodium ABG Potassium ABG Chloride ABG Glucose Carboxyhemoglobin Sodium 136 L Potassium Chloride Carbon Dioxide BUN 33 H Creatinine Glucose 107 H POC Glucose Lactic Acid Calcium 7.9 L Ionized Calcium Phosphorus Magnesium Lactate Dehydrogenase C-Reactive Protein NT-Pro-B Natriuret Pep Serum Total Protein Total Protein Albumin Hdwdm-1-Kzlopqiih Gamma Globulins PEP Interpretation TSH Arterial Blood Glucose Arterial Blood Ionized Calcium Urine WBC (Auto) Crossmatch See Detail 11/02/20 11/02/20 11/02/20 19:55 21:25 22:28 WBC 21.8 H RBC Hgb Hct RDW Seg Neuts % (Manual) Lymphocytes % (Manual) Seg Neutrophils # Man Lymphocytes # (Manual) Monocytes # (Manual) PT 16.2 H INR 1.30 H APTT 106.0 H* D-Dimer Heparin Anti-Xa Level 1.63 H ABG pH POC ABG pCO2 POC ABG pO2 ABG Hemoglobin ABG Oxyhemoglobin ABG Sodium ABG Potassium ABG Chloride ABG Glucose Carboxyhemoglobin Sodium Potassium Chloride Carbon Dioxide BUN Creatinine Glucose POC Glucose Lactic Acid Calcium Ionized Calcium Phosphorus Magnesium Lactate Dehydrogenase C-Reactive Protein NT-Pro-B Natriuret Pep Serum Total Protein Total Protein Albumin Hdvey-5-Sucfgfvmt Gamma Globulins PEP Interpretation TSH Arterial Blood Glucose Arterial Blood Ionized Calcium Urine WBC (Auto) Crossmatch 11/03/20 11/03/20 11/03/20 05:47 13:20 13:20 WBC 29.0 H RBC Hgb 10.4 L Hct 31.2 L D RDW Seg Neuts % (Manual) Lymphocytes % (Manual) Seg Neutrophils # Man Lymphocytes # (Manual) Monocytes # (Manual) PT INR APTT D-Dimer Heparin Anti-Xa Level < 0.10 L ABG pH POC ABG pCO2 POC ABG pO2 ABG Hemoglobin ABG Oxyhemoglobin ABG Sodium ABG Potassium ABG Chloride ABG Glucose Carboxyhemoglobin Sodium 134 L Potassium 5.9 H D Chloride Carbon Dioxide 17 L D BUN 47 H Creatinine 2.2 H D Glucose 188 H POC Glucose Lactic Acid Calcium 7.6 L Ionized Calcium Phosphorus Magnesium Lactate Dehydrogenase C-Reactive Protein NT-Pro-B Natriuret Pep Serum Total Protein Total Protein Albumin Yfrqv-7-Ipckzycvv Gamma Globulins PEP Interpretation TSH Arterial Blood Glucose Arterial Blood Ionized Calcium Urine WBC (Auto) Crossmatch 11/03/20 11/03/20 11/03/20 13:20 16:11 20:01 WBC RBC Hgb Hct RDW Seg Neuts % (Manual) Lymphocytes % (Manual) Seg Neutrophils # Man Lymphocytes # (Manual) Monocytes # (Manual) PT INR APTT D-Dimer Heparin Anti-Xa Level ABG pH 7.289 L POC ABG pCO2 31.8 L POC ABG pO2 156.7 H 119.6 H ABG Hemoglobin 10.7 L 9.7 L ABG Oxyhemoglobin 98.2 H ABG Sodium 127.7 L 129.5 L ABG Potassium 5.8 H 5.9 H ABG Chloride ABG Glucose 190 H 174 H Carboxyhemoglobin 0.3 L 0.1 L Sodium Potassium Chloride Carbon Dioxide BUN Creatinine Glucose POC Glucose Lactic Acid 7.40 H* Calcium Ionized Calcium Phosphorus Magnesium Lactate Dehydrogenase C-Reactive Protein NT-Pro-B Natriuret Pep Serum Total Protein Total Protein Albumin Lnojl-3-Hiyvdsuwe Gamma Globulins PEP Interpretation TSH Arterial Blood Glucose 190 H 174 H Arterial Blood Ionized Calcium 4.3 L 4.3 L Urine WBC (Auto) Crossmatch 11/03/20 11/04/20 11/04/20 21:14 04:00 04:00 WBC 32.8 H RBC Hgb 11.7 L Hct 35.0 L RDW Seg Neuts % (Manual) 82.0 H Lymphocytes % (Manual) 10.0 L Seg Neutrophils # Man 26.9 H Lymphocytes # (Manual) Monocytes # (Manual) 2.3 H PT INR APTT D-Dimer Heparin Anti-Xa Level 0.73 H ABG pH POC ABG pCO2 POC ABG pO2 ABG Hemoglobin ABG Oxyhemoglobin ABG Sodium ABG Potassium ABG Chloride ABG Glucose Carboxyhemoglobin Sodium 133 L Potassium 5.7 H Chloride Carbon Dioxide 20 L BUN 57 H Creatinine 2.3 H Glucose 129 H POC Glucose Lactic Acid Calcium 7.2 L Ionized Calcium Phosphorus Magnesium Lactate Dehydrogenase C-Reactive Protein NT-Pro-B Natriuret Pep Serum Total Protein Total Protein Albumin Hpdht-8-Wfmrmckax Gamma Globulins PEP Interpretation TSH Arterial Blood Glucose Arterial Blood Ionized Calcium Urine WBC (Auto) Crossmatch 11/04/20 11/04/20 11/04/20 07:57 11:00 11:55 WBC RBC Hgb Hct RDW Seg Neuts % (Manual) Lymphocytes % (Manual) Seg Neutrophils # Man Lymphocytes # (Manual) Monocytes # (Manual) PT INR APTT D-Dimer Heparin Anti-Xa Level ABG pH POC ABG pCO2 POC ABG pO2 132.7 H ABG Hemoglobin 11.5 L ABG Oxyhemoglobin ABG Sodium 130.6 L ABG Potassium 5.3 H ABG Chloride ABG Glucose 145 H Carboxyhemoglobin 0.2 L Sodium Potassium Chloride Carbon Dioxide BUN Creatinine Glucose POC Glucose 110 H Lactic Acid Calcium Ionized Calcium Phosphorus Magnesium Lactate Dehydrogenase C-Reactive Protein NT-Pro-B Natriuret Pep Serum Total Protein Total Protein Albumin Xuhdg-4-Hnhrtiowv Gamma Globulins PEP Interpretation TSH Arterial Blood Glucose 145 H Arterial Blood Ionized Calcium 4.4 L Urine WBC (Auto) 19.0 H Crossmatch 11/04/20 11/04/20 11/04/20 13:01 13:01 17:40 WBC RBC Hgb Hct RDW Seg Neuts % (Manual) Lymphocytes % (Manual) Seg Neutrophils # Man Lymphocytes # (Manual) Monocytes # (Manual) PT INR APTT D-Dimer Heparin Anti-Xa Level 0.26 L ABG pH POC ABG pCO2 POC ABG pO2 ABG Hemoglobin ABG Oxyhemoglobin ABG Sodium ABG Potassium ABG Chloride ABG Glucose Carboxyhemoglobin Sodium Potassium Chloride Carbon Dioxide BUN Creatinine Glucose POC Glucose 135 H Lactic Acid Calcium Ionized Calcium Phosphorus Magnesium Lactate Dehydrogenase C-Reactive Protein 8.30 H NT-Pro-B Natriuret Pep Serum Total Protein Total Protein Albumin Dvquc-2-Lforpxuxo Gamma Globulins PEP Interpretation TSH Arterial Blood Glucose Arterial Blood Ionized Calcium Urine WBC (Auto) Crossmatch 11/04/20 11/04/20 11/05/20 19:55 23:20 00:53 WBC RBC Hgb 9.7 L 9.0 L Hct 28.3 L D 26.0 L RDW Seg Neuts % (Manual) Lymphocytes % (Manual) Seg Neutrophils # Man Lymphocytes # (Manual) Monocytes # (Manual) PT INR APTT D-Dimer Heparin Anti-Xa Level ABG pH POC ABG pCO2 POC ABG pO2 ABG Hemoglobin ABG Oxyhemoglobin ABG Sodium ABG Potassium ABG Chloride ABG Glucose Carboxyhemoglobin Sodium Potassium Chloride Carbon Dioxide BUN Creatinine Glucose POC Glucose 143 H Lactic Acid Calcium Ionized Calcium Phosphorus Magnesium Lactate Dehydrogenase C-Reactive Protein NT-Pro-B Natriuret Pep Serum Total Protein Total Protein Albumin Qffcp-1-Bmiyaqyrg Gamma Globulins PEP Interpretation TSH Arterial Blood Glucose Arterial Blood Ionized Calcium Urine WBC (Auto) Crossmatch 11/05/20 11/05/20 11/05/20 02:16 03:16 03:37 WBC 33.5 H RBC 3.01 L Hgb 8.8 L Hct 25.6 L RDW Seg Neuts % (Manual) 93.5 H Lymphocytes % (Manual) 3.5 L Seg Neutrophils # Man 31.3 H Lymphocytes # (Manual) Monocytes # (Manual) 1.0 H PT INR APTT D-Dimer Heparin Anti-Xa Level 0.99 H ABG pH POC ABG pCO2 POC ABG pO2 131.3 H ABG Hemoglobin 9.2 L ABG Oxyhemoglobin ABG Sodium 131.6 L ABG Potassium ABG Chloride 110.0 H ABG Glucose 168 H Carboxyhemoglobin 0.3 L Sodium Potassium Chloride Carbon Dioxide BUN Creatinine Glucose POC Glucose Lactic Acid Calcium Ionized Calcium Phosphorus Magnesium Lactate Dehydrogenase C-Reactive Protein NT-Pro-B Natriuret Pep Serum Total Protein Total Protein Albumin Usxsa-1-Ssacdudmb Gamma Globulins PEP Interpretation TSH Arterial Blood Glucose 168 H Arterial Blood Ionized Calcium 4.4 L Urine WBC (Auto) Crossmatch 11/05/20 11/05/20 11/05/20 03:37 05:19 18:18 WBC RBC Hgb Hct RDW Seg Neuts % (Manual) Lymphocytes % (Manual) Seg Neutrophils # Man Lymphocytes # (Manual) Monocytes # (Manual) PT INR APTT D-Dimer Heparin Anti-Xa Level ABG pH POC ABG pCO2 POC ABG pO2 ABG Hemoglobin ABG Oxyhemoglobin ABG Sodium ABG Potassium ABG Chloride ABG Glucose Carboxyhemoglobin Sodium Potassium Chloride 109.5 H Carbon Dioxide BUN 55 H Creatinine 2.1 H Glucose 157 H POC Glucose 142 H 124 H Lactic Acid Calcium 7.0 L Ionized Calcium Phosphorus Magnesium Lactate Dehydrogenase C-Reactive Protein NT-Pro-B Natriuret Pep Serum Total Protein Total Protein Albumin Fiijb-2-Mrhhkcrsv Gamma Globulins PEP Interpretation TSH Arterial Blood Glucose Arterial Blood Ionized Calcium Urine WBC (Auto) Crossmatch 11/05/20 11/05/20 11/05/20 19:00 21:20 23:30 WBC RBC Hgb Hct RDW Seg Neuts % (Manual) Lymphocytes % (Manual) Seg Neutrophils # Man Lymphocytes # (Manual) Monocytes # (Manual) PT INR APTT 63.8 H* D-Dimer Heparin Anti-Xa Level ABG pH POC ABG pCO2 POC ABG pO2 ABG Hemoglobin ABG Oxyhemoglobin ABG Sodium ABG Potassium ABG Chloride ABG Glucose Carboxyhemoglobin Sodium Potassium Chloride Carbon Dioxide BUN Creatinine Glucose POC Glucose 156 H Lactic Acid Calcium Ionized Calcium Phosphorus Magnesium Lactate Dehydrogenase C-Reactive Protein NT-Pro-B Natriuret Pep Serum Total Protein Total Protein 4.3 L Albumin 2.1 L Guxuk-3-Wogdkilci Gamma Globulins PEP Interpretation TSH Arterial Blood Glucose Arterial Blood Ionized Calcium Urine WBC (Auto) Crossmatch 11/06/20 11/06/20 11/06/20 02:54 04:00 04:00 WBC 33.0 H RBC 2.68 L Hgb 7.7 L Hct 23.3 L RDW Seg Neuts % (Manual) 95.0 H Lymphocytes % (Manual) 2.0 L Seg Neutrophils # Man 31.4 H Lymphocytes # (Manual) 0.7 L Monocytes # (Manual) 1.0 H PT INR APTT D-Dimer Heparin Anti-Xa Level ABG pH POC ABG pCO2 POC ABG pO2 116.5 H ABG Hemoglobin 9.7 L ABG Oxyhemoglobin ABG Sodium 134.5 L ABG Potassium 5.0 H ABG Chloride 109.0 H ABG Glucose 165 H Carboxyhemoglobin 0.3 L Sodium Potassium 5.1 H Chloride 108.6 H Carbon Dioxide BUN 62 H Creatinine 2.2 H Glucose 155 H POC Glucose Lactic Acid Calcium 7.3 L Ionized Calcium Phosphorus Magnesium Lactate Dehydrogenase C-Reactive Protein NT-Pro-B Natriuret Pep Serum Total Protein Total Protein Albumin Yxese-9-Rbiheznss Gamma Globulins PEP Interpretation TSH Arterial Blood Glucose 165 H Arterial Blood Ionized Calcium 4.5 L Urine WBC (Auto) Crossmatch 11/06/20 11/06/20 11/06/20 05:17 06:00 17:26 WBC RBC Hgb Hct RDW Seg Neuts % (Manual) Lymphocytes % (Manual) Seg Neutrophils # Man Lymphocytes # (Manual) Monocytes # (Manual) PT INR APTT D-Dimer Heparin Anti-Xa Level ABG pH POC ABG pCO2 POC ABG pO2 ABG Hemoglobin ABG Oxyhemoglobin ABG Sodium ABG Potassium ABG Chloride ABG Glucose Carboxyhemoglobin Sodium Potassium Chloride Carbon Dioxide BUN Creatinine Glucose POC Glucose 147 H 132 H Lactic Acid Calcium Ionized Calcium 4.7 L Phosphorus Magnesium Lactate Dehydrogenase C-Reactive Protein NT-Pro-B Natriuret Pep Serum Total Protein Total Protein Albumin Bfhaw-0-Hxexoyicy Gamma Globulins PEP Interpretation TSH Arterial Blood Glucose Arterial Blood Ionized Calcium Urine WBC (Auto) Crossmatch 11/06/20 11/07/20 11/07/20 Unknown 04:00 04:00 WBC 28.9 H RBC 2.44 L Hgb 7.1 L Hct 21.2 L RDW 15.4 H Seg Neuts % (Manual) 95.0 H Lymphocytes % (Manual) 3.0 L Seg Neutrophils # Man 27.5 H Lymphocytes # (Manual) 0.9 L Monocytes # (Manual) PT INR APTT D-Dimer Heparin Anti-Xa Level ABG pH POC ABG pCO2 POC ABG pO2 ABG Hemoglobin ABG Oxyhemoglobin ABG Sodium ABG Potassium ABG Chloride ABG Glucose Carboxyhemoglobin Sodium Potassium 5.3 H Chloride 108.2 H Carbon Dioxide BUN 77 H Creatinine 2.4 H Glucose 144 H POC Glucose Lactic Acid Calcium 7.5 L Ionized Calcium Phosphorus Magnesium Lactate Dehydrogenase C-Reactive Protein NT-Pro-B Natriuret Pep Serum Total Protein 4.1 L Total Protein Albumin 2.2 L Qolju-1-Rtinpdajo 0.5 H Gamma Globulins 0.4 L PEP Interpretation see below H TSH Arterial Blood Glucose Arterial Blood Ionized Calcium Urine WBC (Auto) Crossmatch 11/07/20 11/07/20 11/07/20 04:00 12:06 17:29 WBC RBC Hgb Hct RDW Seg Neuts % (Manual) Lymphocytes % (Manual) Seg Neutrophils # Man Lymphocytes # (Manual) Monocytes # (Manual) PT INR APTT D-Dimer Heparin Anti-Xa Level ABG pH POC ABG pCO2 POC ABG pO2 130.1 H ABG Hemoglobin 7.5 L ABG Oxyhemoglobin ABG Sodium ABG Potassium 5.0 H ABG Chloride 110.0 H ABG Glucose 152 H Carboxyhemoglobin Sodium Potassium Chloride Carbon Dioxide BUN Creatinine Glucose POC Glucose 144 H 117 H Lactic Acid Calcium Ionized Calcium Phosphorus Magnesium Lactate Dehydrogenase C-Reactive Protein NT-Pro-B Natriuret Pep Serum Total Protein Total Protein Albumin Uayad-6-Etorsgvyg Gamma Globulins PEP Interpretation TSH Arterial Blood Glucose 152 H Arterial Blood Ionized Calcium Urine WBC (Auto) Crossmatch 11/08/20 11/08/20 11/08/20 03:38 04:39 04:39 WBC 23.1 H RBC 2.37 L Hgb 6.9 L Hct 20.8 L RDW 15.3 H Seg Neuts % (Manual) 95.5 H Lymphocytes % (Manual) 2.5 L Seg Neutrophils # Man 22.1 H Lymphocytes # (Manual) 0.6 L Monocytes # (Manual) PT INR APTT D-Dimer Heparin Anti-Xa Level ABG pH 7.494 H POC ABG pCO2 POC ABG pO2 111.5 H ABG Hemoglobin 6.7 L ABG Oxyhemoglobin ABG Sodium ABG Potassium 4.9 H ABG Chloride 112.0 H ABG Glucose 153 H Carboxyhemoglobin Sodium Potassium 5.1 H Chloride 111.3 H Carbon Dioxide BUN 86 H Creatinine 2.5 H Glucose 142 H POC Glucose Lactic Acid Calcium 7.6 L Ionized Calcium Phosphorus Magnesium Lactate Dehydrogenase C-Reactive Protein NT-Pro-B Natriuret Pep Serum Total Protein Total Protein Albumin Uzvxb-4-Cctnghkpa Gamma Globulins PEP Interpretation TSH Arterial Blood Glucose 153 H Arterial Blood Ionized Calcium 4.5 L Urine WBC (Auto) Crossmatch 11/08/20 11/08/20 11/08/20 11:13 11:15 16:30 WBC RBC Hgb 8.0 L Hct 23.6 L RDW Seg Neuts % (Manual) Lymphocytes % (Manual) Seg Neutrophils # Man Lymphocytes # (Manual) Monocytes # (Manual) PT INR APTT D-Dimer Heparin Anti-Xa Level ABG pH POC ABG pCO2 POC ABG pO2 ABG Hemoglobin ABG Oxyhemoglobin ABG Sodium ABG Potassium ABG Chloride ABG Glucose Carboxyhemoglobin Sodium Potassium Chloride Carbon Dioxide BUN Creatinine Glucose POC Glucose 125 H Lactic Acid Calcium Ionized Calcium Phosphorus Magnesium Lactate Dehydrogenase C-Reactive Protein NT-Pro-B Natriuret Pep Serum Total Protein Total Protein Albumin Msxyy-7-Ztipoilfz Gamma Globulins PEP Interpretation TSH Arterial Blood Glucose Arterial Blood Ionized Calcium Urine WBC (Auto) Crossmatch See Detail 11/08/20 11/08/20 11/09/20 19:11 22:20 03:21 WBC 19.0 H RBC 2.51 L Hgb 7.5 L Hct 22.2 L RDW 15.3 H Seg Neuts % (Manual) 89.0 H Lymphocytes % (Manual) 6.0 L Seg Neutrophils # Man 16.9 H Lymphocytes # (Manual) 1.1 L Monocytes # (Manual) 1.0 H PT INR APTT D-Dimer Heparin Anti-Xa Level ABG pH POC ABG pCO2 POC ABG pO2 ABG Hemoglobin ABG Oxyhemoglobin ABG Sodium ABG Potassium ABG Chloride ABG Glucose Carboxyhemoglobin Sodium Potassium Chloride Carbon Dioxide BUN Creatinine Glucose POC Glucose 107 H Lactic Acid Calcium Ionized Calcium Phosphorus Magnesium Lactate Dehydrogenase C-Reactive Protein NT-Pro-B Natriuret Pep Serum Total Protein Total Protein 3.8 L Albumin 2.2 L Ucbeo-6-Ffnqymmpy Gamma Globulins PEP Interpretation TSH Arterial Blood Glucose Arterial Blood Ionized Calcium Urine WBC (Auto) Crossmatch 11/09/20 11/09/20 11/09/20 03:21 03:21 03:43 WBC RBC Hgb Hct RDW Seg Neuts % (Manual) Lymphocytes % (Manual) Seg Neutrophils # Man Lymphocytes # (Manual) Monocytes # (Manual) PT INR APTT 50.8 H D-Dimer Heparin Anti-Xa Level ABG pH POC ABG pCO2 POC ABG pO2 ABG Hemoglobin ABG Oxyhemoglobin ABG Sodium ABG Potassium ABG Chloride ABG Glucose Carboxyhemoglobin Sodium Potassium Chloride 109.1 H Carbon Dioxide BUN 86 H Creatinine 2.5 H Glucose 140 H POC Glucose 117 H Lactic Acid Calcium 6.9 L Ionized Calcium Phosphorus Magnesium Lactate Dehydrogenase C-Reactive Protein NT-Pro-B Natriuret Pep Serum Total Protein Total Protein Albumin Bxido-3-Bsnzsfvev Gamma Globulins PEP Interpretation TSH Arterial Blood Glucose Arterial Blood Ionized Calcium Urine WBC (Auto) Crossmatch 11/09/20 11/09/20 11/09/20 09:22 17:04 22:08 WBC RBC Hgb Hct RDW Seg Neuts % (Manual) Lymphocytes % (Manual) Seg Neutrophils # Man Lymphocytes # (Manual) Monocytes # (Manual) PT INR APTT D-Dimer Heparin Anti-Xa Level ABG pH POC ABG pCO2 POC ABG pO2 ABG Hemoglobin ABG Oxyhemoglobin ABG Sodium ABG Potassium ABG Chloride ABG Glucose Carboxyhemoglobin Sodium Potassium Chloride Carbon Dioxide BUN Creatinine Glucose POC Glucose 111 H 106 H 112 H Lactic Acid Calcium Ionized Calcium Phosphorus Magnesium Lactate Dehydrogenase C-Reactive Protein NT-Pro-B Natriuret Pep Serum Total Protein Total Protein Albumin Rgmpx-8-Axffxsmyt Gamma Globulins PEP Interpretation TSH Arterial Blood Glucose Arterial Blood Ionized Calcium Urine WBC (Auto) Crossmatch 11/10/20 11/10/20 11/10/20 05:30 05:30 11:50 WBC RBC Hgb 6.6 L Hct 19.9 L* RDW Seg Neuts % (Manual) Lymphocytes % (Manual) Seg Neutrophils # Man Lymphocytes # (Manual) Monocytes # (Manual) PT INR APTT D-Dimer Heparin Anti-Xa Level ABG pH POC ABG pCO2 POC ABG pO2 ABG Hemoglobin ABG Oxyhemoglobin ABG Sodium ABG Potassium ABG Chloride ABG Glucose Carboxyhemoglobin Sodium Potassium Chloride 111.3 H Carbon Dioxide BUN 74 H Creatinine 2.3 H Glucose 119 H POC Glucose 108 H Lactic Acid Calcium 7.1 L Ionized Calcium Phosphorus Magnesium 4.40 H Lactate Dehydrogenase C-Reactive Protein NT-Pro-B Natriuret Pep Serum Total Protein Total Protein Albumin Hrhnx-1-Astggwvki Gamma Globulins PEP Interpretation TSH Arterial Blood Glucose Arterial Blood Ionized Calcium Urine WBC (Auto) Crossmatch 11/10/20 11/10/20 11/10/20 17:50 23:12 23:17 WBC RBC Hgb 9.5 L 9.1 L Hct 28.2 L D 27.5 L RDW Seg Neuts % (Manual) Lymphocytes % (Manual) Seg Neutrophils # Man Lymphocytes # (Manual) Monocytes # (Manual) PT INR APTT D-Dimer Heparin Anti-Xa Level ABG pH POC ABG pCO2 POC ABG pO2 ABG Hemoglobin ABG Oxyhemoglobin ABG Sodium ABG Potassium ABG Chloride ABG Glucose Carboxyhemoglobin Sodium Potassium Chloride Carbon Dioxide BUN Creatinine Glucose POC Glucose 107 H Lactic Acid Calcium Ionized Calcium Phosphorus Magnesium Lactate Dehydrogenase C-Reactive Protein NT-Pro-B Natriuret Pep Serum Total Protein Total Protein Albumin Bhrwu-1-Jbhkjhnqd Gamma Globulins PEP Interpretation TSH Arterial Blood Glucose Arterial Blood Ionized Calcium Urine WBC (Auto) Crossmatch 11/11/20 11/11/20 11/11/20 05:16 05:30 08:35 WBC 17.4 H RBC 3.17 L Hgb 9.5 L Hct 29.0 L RDW 16.2 H Seg Neuts % (Manual) Lymphocytes % (Manual) Seg Neutrophils # Man Lymphocytes # (Manual) Monocytes # (Manual) PT INR APTT D-Dimer Heparin Anti-Xa Level ABG pH POC ABG pCO2 POC ABG pO2 ABG Hemoglobin ABG Oxyhemoglobin ABG Sodium ABG Potassium ABG Chloride ABG Glucose Carboxyhemoglobin Sodium Potassium Chloride 107.4 H Carbon Dioxide BUN 64 H Creatinine 2.1 H Glucose 148 H POC Glucose 127 H Lactic Acid Calcium 6.7 L Ionized Calcium Phosphorus Magnesium 3.90 H Lactate Dehydrogenase C-Reactive Protein NT-Pro-B Natriuret Pep Serum Total Protein Total Protein Albumin Rioke-7-Sjbulfcmv Gamma Globulins PEP Interpretation TSH Arterial Blood Glucose Arterial Blood Ionized Calcium Urine WBC (Auto) Crossmatch 11/11/20 11/11/20 11/11/20 09:14 10:10 11:45 WBC RBC Hgb 9.2 L Hct 27.2 L RDW Seg Neuts % (Manual) Lymphocytes % (Manual) Seg Neutrophils # Man Lymphocytes # (Manual) Monocytes # (Manual) PT INR APTT D-Dimer Heparin Anti-Xa Level ABG pH POC ABG pCO2 POC ABG pO2 ABG Hemoglobin ABG Oxyhemoglobin ABG Sodium 135.8 L ABG Potassium ABG Chloride 111.0 H ABG Glucose 152 H Carboxyhemoglobin Sodium Potassium Chloride Carbon Dioxide BUN Creatinine Glucose POC Glucose 139 H Lactic Acid Calcium Ionized Calcium Phosphorus Magnesium Lactate Dehydrogenase C-Reactive Protein NT-Pro-B Natriuret Pep Serum Total Protein Total Protein Albumin Fufii-0-Iohrfdzrz Gamma Globulins PEP Interpretation TSH Arterial Blood Glucose 152 H Arterial Blood Ionized Calcium 4.2 L Urine WBC (Auto) Crossmatch 11/11/20 11/11/20 11/11/20 14:41 17:09 21:12 WBC RBC Hgb 8.7 L Hct 25.8 L RDW Seg Neuts % (Manual) Lymphocytes % (Manual) Seg Neutrophils # Man Lymphocytes # (Manual) Monocytes # (Manual) PT INR APTT D-Dimer Heparin Anti-Xa Level ABG pH POC ABG pCO2 POC ABG pO2 ABG Hemoglobin ABG Oxyhemoglobin ABG Sodium ABG Potassium ABG Chloride ABG Glucose Carboxyhemoglobin Sodium Potassium Chloride Carbon Dioxide BUN Creatinine Glucose POC Glucose 110 H 115 H Lactic Acid Calcium Ionized Calcium Phosphorus Magnesium Lactate Dehydrogenase C-Reactive Protein NT-Pro-B Natriuret Pep Serum Total Protein Total Protein Albumin Qmqop-2-Qfmwkqqlt Gamma Globulins PEP Interpretation TSH Arterial Blood Glucose Arterial Blood Ionized Calcium Urine WBC (Auto) Crossmatch 11/11/20 11/12/20 11/12/20 23:02 03:10 03:38 WBC RBC Hgb Hct RDW Seg Neuts % (Manual) Lymphocytes % (Manual) Seg Neutrophils # Man Lymphocytes # (Manual) Monocytes # (Manual) PT INR APTT D-Dimer Heparin Anti-Xa Level ABG pH POC ABG pCO2 POC ABG pO2 ABG Hemoglobin ABG Oxyhemoglobin ABG Sodium ABG Potassium ABG Chloride ABG Glucose Carboxyhemoglobin Sodium Potassium Chloride 109.8 H Carbon Dioxide BUN 64 H Creatinine 2.0 H Glucose 129 H POC Glucose 109 H 107 H Lactic Acid Calcium 6.7 L Ionized Calcium Phosphorus 2.10 L D Magnesium 3.50 H Lactate Dehydrogenase C-Reactive Protein NT-Pro-B Natriuret Pep Serum Total Protein Total Protein Albumin Djmfs-7-Wieabznyh Gamma Globulins PEP Interpretation TSH Arterial Blood Glucose Arterial Blood Ionized Calcium Urine WBC (Auto) Crossmatch 11/12/20 11/12/20 11/12/20 03:38 11:44 13:49 WBC 15.2 H RBC 2.70 L Hgb 8.1 L Hct 24.3 L RDW 16.0 H Seg Neuts % (Manual) Lymphocytes % (Manual) Seg Neutrophils # Man Lymphocytes # (Manual) Monocytes # (Manual) PT INR APTT D-Dimer Heparin Anti-Xa Level ABG pH POC ABG pCO2 POC ABG pO2 ABG Hemoglobin 8.6 L ABG Oxyhemoglobin ABG Sodium ABG Potassium ABG Chloride 111.0 H ABG Glucose 135 H Carboxyhemoglobin Sodium Potassium Chloride Carbon Dioxide BUN Creatinine Glucose POC Glucose 114 H Lactic Acid Calcium Ionized Calcium Phosphorus Magnesium Lactate Dehydrogenase C-Reactive Protein NT-Pro-B Natriuret Pep Serum Total Protein Total Protein Albumin Htpth-3-Xmywrmyqm Gamma Globulins PEP Interpretation TSH Arterial Blood Glucose 135 H Arterial Blood Ionized Calcium 4.3 L Urine WBC (Auto) Crossmatch 11/12/20 11/12/20 11/12/20 17:05 17:11 23:16 WBC RBC Hgb Hct RDW Seg Neuts % (Manual) Lymphocytes % (Manual) Seg Neutrophils # Man Lymphocytes # (Manual) Monocytes # (Manual) PT INR APTT D-Dimer Heparin Anti-Xa Level 0.25 L ABG pH POC ABG pCO2 POC ABG pO2 ABG Hemoglobin ABG Oxyhemoglobin ABG Sodium ABG Potassium ABG Chloride ABG Glucose Carboxyhemoglobin Sodium Potassium Chloride Carbon Dioxide BUN Creatinine Glucose POC Glucose 117 H 116 H Lactic Acid Calcium Ionized Calcium Phosphorus Magnesium Lactate Dehydrogenase C-Reactive Protein NT-Pro-B Natriuret Pep Serum Total Protein Total Protein Albumin Mshqa-4-Lrzvgvzdl Gamma Globulins PEP Interpretation TSH Arterial Blood Glucose Arterial Blood Ionized Calcium Urine WBC (Auto) Crossmatch 11/13/20 11/13/20 11/13/20 05:09 05:30 05:30 WBC RBC Hgb 7.8 L Hct 22.6 L RDW Seg Neuts % (Manual) Lymphocytes % (Manual) Seg Neutrophils # Man Lymphocytes # (Manual) Monocytes # (Manual) PT INR APTT D-Dimer Heparin Anti-Xa Level ABG pH POC ABG pCO2 POC ABG pO2 ABG Hemoglobin ABG Oxyhemoglobin ABG Sodium ABG Potassium ABG Chloride ABG Glucose Carboxyhemoglobin Sodium Potassium Chloride 109.4 H Carbon Dioxide BUN 65 H Creatinine 2.0 H Glucose 137 H POC Glucose 116 H Lactic Acid Calcium 7.0 L Ionized Calcium Phosphorus 1.60 L D Magnesium 3.10 H Lactate Dehydrogenase C-Reactive Protein NT-Pro-B Natriuret Pep Serum Total Protein Total Protein Albumin Vbysb-1-Dawfsxreq Gamma Globulins PEP Interpretation TSH Arterial Blood Glucose Arterial Blood Ionized Calcium Urine WBC (Auto) Crossmatch 11/13/20 11/13/20 11/13/20 08:16 12:26 17:33 WBC 12.8 H RBC 2.60 L Hgb 7.6 L Hct 23.0 L RDW 15.8 H Seg Neuts % (Manual) Lymphocytes % (Manual) Seg Neutrophils # Man Lymphocytes # (Manual) Monocytes # (Manual) PT INR APTT D-Dimer Heparin Anti-Xa Level ABG pH POC ABG pCO2 POC ABG pO2 ABG Hemoglobin ABG Oxyhemoglobin ABG Sodium ABG Potassium ABG Chloride ABG Glucose Carboxyhemoglobin Sodium Potassium Chloride Carbon Dioxide BUN Creatinine Glucose POC Glucose 106 H 124 H Lactic Acid Calcium Ionized Calcium Phosphorus Magnesium Lactate Dehydrogenase C-Reactive Protein NT-Pro-B Natriuret Pep Serum Total Protein Total Protein Albumin Wtgiz-9-Menbvlspd Gamma Globulins PEP Interpretation TSH Arterial Blood Glucose Arterial Blood Ionized Calcium Urine WBC (Auto) Crossmatch 11/13/20 11/13/20 11/13/20 18:31 20:35 20:35 WBC RBC Hgb 7.6 L Hct 22.1 L RDW Seg Neuts % (Manual) Lymphocytes % (Manual) Seg Neutrophils # Man Lymphocytes # (Manual) Monocytes # (Manual) PT INR APTT D-Dimer Heparin Anti-Xa Level 0.12 L ABG pH POC ABG pCO2 POC ABG pO2 ABG Hemoglobin ABG Oxyhemoglobin ABG Sodium ABG Potassium ABG Chloride ABG Glucose Carboxyhemoglobin Sodium Potassium Chloride Carbon Dioxide BUN Creatinine Glucose POC Glucose Lactic Acid Calcium Ionized Calcium Phosphorus Magnesium Lactate Dehydrogenase C-Reactive Protein NT-Pro-B Natriuret Pep Serum Total Protein Total Protein Albumin Gxhkk-2-Aqppvpjar Gamma Globulins PEP Interpretation TSH Arterial Blood Glucose Arterial Blood Ionized Calcium Urine WBC (Auto) Crossmatch See Detail 11/13/20 11/14/20 11/14/20 Unknown 02:45 04:00 WBC RBC Hgb Hct RDW Seg Neuts % (Manual) Lymphocytes % (Manual) Seg Neutrophils # Man Lymphocytes # (Manual) Monocytes # (Manual) PT 15.7 H INR 1.27 H APTT 60.6 H* D-Dimer Heparin Anti-Xa Level 0.18 L ABG pH POC ABG pCO2 POC ABG pO2 ABG Hemoglobin ABG Oxyhemoglobin ABG Sodium ABG Potassium ABG Chloride ABG Glucose Carboxyhemoglobin Sodium Potassium 3.2 L Chloride 108.0 H Carbon Dioxide BUN 69 H Creatinine 2.2 H Glucose 126 H POC Glucose Lactic Acid Calcium 6.9 L Ionized Calcium Phosphorus Magnesium 2.90 H Lactate Dehydrogenase C-Reactive Protein NT-Pro-B Natriuret Pep Serum Total Protein Total Protein Albumin Gmmih-9-Rxeyhcibg Gamma Globulins PEP Interpretation TSH Arterial Blood Glucose Arterial Blood Ionized Calcium Urine WBC (Auto) Crossmatch 11/14/20 11/14/20 11/14/20 04:00 05:26 12:18 WBC RBC 2.34 L Hgb 7.2 L Hct 20.8 L RDW 15.9 H Seg Neuts % (Manual) Lymphocytes % (Manual) Seg Neutrophils # Man Lymphocytes # (Manual) Monocytes # (Manual) PT INR APTT D-Dimer Heparin Anti-Xa Level ABG pH POC ABG pCO2 POC ABG pO2 ABG Hemoglobin ABG Oxyhemoglobin ABG Sodium ABG Potassium ABG Chloride ABG Glucose Carboxyhemoglobin Sodium Potassium Chloride Carbon Dioxide BUN Creatinine Glucose POC Glucose 120 H 129 H Lactic Acid Calcium Ionized Calcium Phosphorus Magnesium Lactate Dehydrogenase C-Reactive Protein NT-Pro-B Natriuret Pep Serum Total Protein Total Protein Albumin Lplif-6-Wfmeyhwsg Gamma Globulins PEP Interpretation TSH Arterial Blood Glucose Arterial Blood Ionized Calcium Urine WBC (Auto) Crossmatch Allied health notes reviewed: nursing
--- NOTE | 2020-11-14 15:02 | Event Note ---
\I spoke to patients son Alex Devine at [phone] and updated him of current status and downgrade to IMCU, downgrade to nasal cannula.
--- NOTE | 2020-11-14 18:34 | Progress Note ---
Assessment and Plan Cultures: Sputum culture 11/03/2020 upper respiratory mechelle Urine culture 11/04/2020 negative Blood culture 11/04/2020 no growth today Tracheal aspirate 11/04/2020 no growth today Assessment: 70-year-old male with history of hypertension, hypothyroidism, admitted on 10/23/2020 secondary to 2-day history of acute altered mental status with confusion and diminished cognition; noted to have a left MCA CVA and right leg acute thrombosis, now with worsening leukocytosis and on pressors: #Severe sepsis with septic shock: Not present on admission. Remains pressors but improving, leukocytosis is high but improving. Likely secondary to acute thrombus of the right lower extremity complicated with compartment syndrome +/- UTI. Chest x-ray without any obvious pneumonia. 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 Neurology on board. #Acute right leg thromboses: Complicated with compartment syndrome s/p open thrombectomy of the right lower extremity and right lower extremity compartment syndrome fasciotomy on 11/02/2020. #STACEY: creat up. Renally adjust antibiotics. #Acute respiratory failure: Intubated overnight. Chest x-ray with pulmonary edema. Elevated BNP. CT chest shows small pericardial effusion, small bilateral pleural effusion, bilateral interstitial disease. SARS-CoV-2 PCR negative. #Cardiomyopathy: EF 35 to 40%. #Left atrial appendage thrombus: Patient was on heparin drip, currently on hold due to surgical wound bleeding #Anemia Recommendations: -No need to treat Neisha in the sputum -Continue cefepime IV renally adjusted D10, continue metronidazole. Plan 4 days postop. Stop date in place. Will follow. Dr. Solano taking over tomorrow Suzan Campbell MD [facility] O: [phone] F: [phone] Subjective Date of service: 11/14/20 Principal diagnosis: Ac hypoxemic resp failure; CVA; Acute limb ischemia; Acute encephalopathy Interval history: Afebrile, normal white count. No acute changes. Now on nasal cannula. Objective - Exam Narrative Exam: General appearance: Sedated, intubated, currently alert Eyes: anicteric sclerae, moist conjunctivae; no lid-lag HENT: Normocephalic, Atraumatic; normal external ears, nares open, endotracheal tube and NG tube in place Neck: supple, tracheal midline, no JVD Lungs: Coarse breath sound bilaterally CV: RRR no murmur Abdomen: Firm, distended Extremities: Marked right leg edema with fasciotomy wounds bleeding Skin: Right groin surgical wound with clots Psych: Sedated Neuro: Sedated, nares open Winkler in place - Constitutional Vitals: Vital Signs Temp Pulse Resp BP Pulse Ox 98.1 F 80 37 H 141/83 100 11/14/20 18:02 11/14/20 18:27 11/14/20 18:00 11/14/20 18:27 11/14/20 18:00 Temperature -Last 24 Hours Temperature 98.1 F Temperature 98.2 F Temperature 99.4 F Temperature 99.8 F Temperature 99.5 F - Labs CBC & Chem 7: 11/14/20 04:00 11/14/20 04:00 Labs: Abnormal lab results 11/13/20 11/13/20 11/13/20 Range/Units 17:33 18:31 20:35 RBC (3.65-5.03) M/mm3 Hgb 7.6 L (11.8-15.2) gm/dl Hct 22.1 L (35.5-45.6) % RDW (13.2-15.2) % PT (12.2-14.9) Sec. INR (0.87-1.13) APTT (24.2-36.6) Sec. Heparin Anti-Xa Level 0.12 L (0.3-0.7) U.I./ml Potassium (3.6-5.0) mmol/L Chloride (98-107) mmol/L BUN (9-20) mg/dL Creatinine (0.8-1.3) mg/dL Glucose (75-100) mg/dL POC Glucose 124 H (70-105) mg/dL Calcium (8.4-10.2) mg/dL Magnesium (1.7-2.3) mg/dL Crossmatch 11/13/20 11/13/20 11/14/20 Range/Units 20:35 Unknown 02:45 RBC (3.65-5.03) M/mm3 Hgb (11.8-15.2) gm/dl Hct (35.5-45.6) % RDW (13.2-15.2) % PT 15.7 H (12.2-14.9) Sec. INR 1.27 H (0.87-1.13) APTT 60.6 H* (24.2-36.6) Sec. Heparin Anti-Xa Level 0.18 L (0.3-0.7) U.I./ml Potassium (3.6-5.0) mmol/L Chloride (98-107) mmol/L BUN (9-20) mg/dL Creatinine (0.8-1.3) mg/dL Glucose (75-100) mg/dL POC Glucose (70-105) mg/dL Calcium (8.4-10.2) mg/dL Magnesium (1.7-2.3) mg/dL Crossmatch See Detail 11/14/20 11/14/20 11/14/20 Range/Units 04:00 04:00 05:26 RBC 2.34 L (3.65-5.03) M/mm3 Hgb 7.2 L (11.8-15.2) gm/dl Hct 20.8 L (35.5-45.6) % RDW 15.9 H (13.2-15.2) % PT (12.2-14.9) Sec. INR (0.87-1.13) APTT (24.2-36.6) Sec. Heparin Anti-Xa Level (0.3-0.7) U.I./ml Potassium 3.2 L (3.6-5.0) mmol/L Chloride 108.0 H (98-107) mmol/L BUN 69 H (9-20) mg/dL Creatinine 2.2 H (0.8-1.3) mg/dL Glucose 126 H (75-100) mg/dL POC Glucose 120 H (70-105) mg/dL Calcium 6.9 L (8.4-10.2) mg/dL Magnesium 2.90 H (1.7-2.3) mg/dL Crossmatch 11/14/20 Range/Units 12:18 RBC (3.65-5.03) M/mm3 Hgb (11.8-15.2) gm/dl Hct (35.5-45.6) % RDW (13.2-15.2) % PT (12.2-14.9) Sec. INR (0.87-1.13) APTT (24.2-36.6) Sec. Heparin Anti-Xa Level (0.3-0.7) U.I./ml Potassium (3.6-5.0) mmol/L Chloride (98-107) mmol/L BUN (9-20) mg/dL Creatinine (0.8-1.3) mg/dL Glucose (75-100) mg/dL POC Glucose 129 H (70-105) mg/dL Calcium (8.4-10.2) mg/dL Magnesium (1.7-2.3) mg/dL Crossmatch
[2020-11-14] MEDS: HEPARIN/ 0.45% NACL DRIP 25,000 UNIT/500 ML BAG IV SCH (19:09)
--- NOTE | 2020-11-14 19:32 | Progress Note ---
Assessment and Plan - Patient Problems (1) Pneumatosis intestinalis of small intestine Current Visit: Yes Status: Acute Plan to address problem: 1) OG tube came out yesterday. Will leave it out. 2) Continue NPO 3) Waiting for ileus to resolve. Subjective Date of service: 11/14/20 Patient Reports: Positive: no new complaints Objective Vital Signs - 12hr 11/14/20 11/14/20 11/14/20 07:30 08:00 08:30 Temperature 98.2 F Pulse Rate 59 L 61 80 Pulse Rate [ 62 From Monitor] Respiratory 23 25 H 32 H Rate Blood Pressure 109/63 110/63 110/63 O2 Sat by Pulse 98 100 97 Oximetry 11/14/20 11/14/20 11/14/20 09:00 09:05 09:30 Temperature Pulse Rate 63 66 Pulse Rate [ From Monitor] Respiratory 21 27 H Rate Blood Pressure 120/66 120/66 O2 Sat by Pulse 98 100 99 Oximetry 11/14/20 11/14/20 11/14/20 10:00 10:30 11:00 Temperature Pulse Rate 65 66 76 Pulse Rate [ From Monitor] Respiratory 26 H 26 H 27 H Rate Blood Pressure 116/67 116/67 107/71 O2 Sat by Pulse 99 97 98 Oximetry 11/14/20 11/14/20 11/14/20 11:30 12:00 12:16 Temperature Pulse Rate 73 68 67 Pulse Rate [ 71 From Monitor] Respiratory 29 H 24 Rate Blood Pressure 107/71 124/70 124/70 O2 Sat by Pulse 98 98 Oximetry 11/14/20 11/14/20 11/14/20 12:30 13:00 13:30 Temperature Pulse Rate 85 71 59 L Pulse Rate [ From Monitor] Respiratory 30 H 28 H 27 H Rate Blood Pressure 124/70 131/75 131/75 O2 Sat by Pulse 94 98 99 Oximetry 11/14/20 11/14/20 11/14/20 14:00 14:30 15:00 Temperature Pulse Rate 63 65 68 Pulse Rate [ From Monitor] Respiratory 26 H 27 H 29 H Rate Blood Pressure 130/76 130/76 130/76 O2 Sat by Pulse 99 100 99 Oximetry 11/14/20 11/14/20 11/14/20 15:30 16:00 16:30 Temperature Pulse Rate 69 71 Pulse Rate [ 69 From Monitor] Respiratory 31 H 33 H Rate Blood Pressure 132/78 131/81 131/81 O2 Sat by Pulse 98 98 86 Oximetry 11/14/20 11/14/20 11/14/20 17:00 17:30 18:00 Temperature Pulse Rate 76 78 Pulse Rate [ From Monitor] Respiratory 35 H 37 H Rate Blood Pressure 131/81 131/81 141/83 O2 Sat by Pulse 100 100 100 Oximetry 11/14/20 11/14/20 11/14/20 18:02 18:27 19:23 Temperature 98.1 F 99.5 F Pulse Rate 80 Pulse Rate [ From Monitor] Respiratory Rate Blood Pressure 141/83 O2 Sat by Pulse Oximetry - Abdomen soft, bowel sounds hypoactive (No ), other (No obvious tenderness) - Labs 11/14/20 04:00 11/14/20 04:00 Diabetes panel 11/14/20 Range/Units 04:00 Sodium 140 (137-145) mmol/L Potassium 3.2 L (3.6-5.0) mmol/L Chloride 108.0 H (98-107) mmol/L Carbon Dioxide 24 (22-30) mmol/L BUN 69 H (9-20) mg/dL Creatinine 2.2 H (0.8-1.3) mg/dL Glucose 126 H (75-100) mg/dL Calcium 6.9 L (8.4-10.2) mg/dL Calcium panel 11/14/20 Range/Units 04:00 Calcium 6.9 L (8.4-10.2) mg/dL Phosphorus 2.90 D (2.5-4.5) mg/dL Pituitary panel 11/14/20 Range/Units 04:00 Sodium 140 (137-145) mmol/L Potassium 3.2 L (3.6-5.0) mmol/L Chloride 108.0 H (98-107) mmol/L Carbon Dioxide 24 (22-30) mmol/L BUN 69 H (9-20) mg/dL Creatinine 2.2 H (0.8-1.3) mg/dL Glucose 126 H (75-100) mg/dL Calcium 6.9 L (8.4-10.2) mg/dL Adrenal panel 11/14/20 Range/Units 04:00 Sodium 140 (137-145) mmol/L Potassium 3.2 L (3.6-5.0) mmol/L Chloride 108.0 H (98-107) mmol/L Carbon Dioxide 24 (22-30) mmol/L BUN 69 H (9-20) mg/dL Creatinine 2.2 H (0.8-1.3) mg/dL Glucose 126 H (75-100) mg/dL Calcium 6.9 L (8.4-10.2) mg/dL
[2020-11-14] MEDS ORDERED: TOTAL PARENTERAL NUTRITION 1,800 ML IV SCH (20:00)
[2020-11-14] MEDS: CEFEPIME/NS 2 GM/100 ML 2 GM/100 ML BAG IV SCH (21:19)
[2020-11-14] MEDS ORDERED: FUROSEMIDE 40 MG/4 ML INJ IV ONE (23:19)
[2020-11-15] MEDS ORDERED: LORazepam 2 MG/ML VIAL IV ONE ×2 (00:44→10:00)
[2020-11-15] MEDS: INSULIN REGULAR, HUMAN 100 UNITS/1 ML SUB-Q SCH ×4 (00:47→23:30)
[2020-11-15] MEDS: METOPROLOL TARTRATE 5 MG/5 ML INJ IV SCH ×4 (00:47→19:17)
[2020-11-15] MEDS: fentaNYL 100 MCG/2 ML INJ IV PRN (01:30)
--- NOTE | 2020-11-15 02:46 | XRay Report ---
CHEST 1 VIEW [id number] INDICATION / CLINICAL INFORMATION: Respiratory Distress COMPARISON: 11/10/2020 FINDINGS: SUPPORT DEVICES: Nasogastric tube has been removed. Central line is still in place. HEART / MEDIASTINUM: Stable LUNGS / PLEURA: Poor degree of inspiration is seen. Mild congestion is noted. Increasing density is s een in both lung bases which on the right may be partially due to increasing pleural effusion but inc reasing basilar infiltrate and atelectasis is also seen. No pneumothorax. ADDITIONAL FINDINGS: No significant additional findings. Signer Name: Diego Kilpatrick MD Signed: 11/15/2020 2:42 AM Workstation Name: [id number]
[2020-11-15 03:49] LABS: Hematocrit 21.5 % (35.5-45.6); Hemoglobin 7.3 gm/dl (11.8-15.2); Mean Corpuscular HGB Conc 34 % (32-34); Mean Corpuscular Volume 88 fl (84-94); Platelet Count 205 K/mm3 (140-440); Red Blood Count 2.43 M/mm3 (3.65-5.03); Red Cell Distribution Width 16.1 % (13.2-15.2)
[2020-11-15 04:10] LABS: Calcium 7.2 mg/dL (8.4-10.2)
[2020-11-15] MEDS: LEVOTHYROXINE 100 MCG INJ IV SCH (06:58)
[2020-11-15] MEDS ORDERED: LORazepam 2 MG/ML VIAL ONE ×2 (09:00→14:41)
--- NOTE | 2020-11-15 09:05 | Progress Note ---
Assessment and Plan Assessment and plan: This is a 70-year-old male with hypertension and hypothyroidism who presented to the emergency department on 10/23 with confusion, weakness, exercise intolerance, shortness of breath on exertion, increased bedbound status and decreased oral intake with progressively worsened over the past 2 days prior to presentation. Patient was found to have clinical symptoms consistent with a CVA (neurology consulted, stroke pathway initiated) CHF, bilateral pneumonia, and acute hypoxic respiratory failure. Patient was initiated coronavirus, pneumonia and CHF protocol. Cardiology was consulted in the emergency department. 10/24/2020: Acute CVA with right hemiparesis , PT and OT 10/25/2020: Acute CVA with right hemiplegia, Rehab consult requested, Ejection fraction is 35 to 40% 10/26/2020:patient with acute CVA and right-sided hemiparesis, PT evaluated the patient and recommended acute rehab, Case management processing the request, Possible discharge in 1 to 2 days if stable 10/27/2020: patient is clinically stable, awaiting rehab/SNF placement. DC planning per Case management., Neuro recommend KELLY[possible embolic CVA] follow KELLY 10/28/20: patient is doing slightly better. No new complain. Clinically stable, Patient is going for KELLY today., DC planning to rehab/SNF when cleared by neurology., DC planning per case management 10/29/20: patient is doing slightly better. No new complain. Clinically stable, continue physical therapy occupational therapy, Patient is going for KELLY on Sunday, DC planning to rehab/SNF after KELLY on Sunday, DC planning per case management 10/30/20: patient is sitting in chair. No new complain. Clinically stable, continue physical therapy occupational therapy, Patient is going for KELLY on Sunday, Awaiting DC planning to rehab/SNF after KELLY on Sunday. 10/31/20: patient is seen and examined. No new complain. Clinically stable, continue physical therapy occupational therapy., Patient is going for KELLY on Sunday., Awaiting DC planning to rehab/SNF after KELLY on Sunday. 11/01/20: Patient is seen and examined, Patient with acute CVA and right-sided hemiparesis. Patient is evaluated by PT and recommended acute rehab Patient is going for KELLY today, Patient is waiting for DC planning to rehab/SNF after KELLY. cannery worker is working on discharge planning. Patient has chosen [facility] and awaiting authorization. 11/02/2020. KELLY revealed left atrial appendage thrombus. Mildly dilated left ventricle with mild left ventricular hypertrophy with moderate global left ventricular hypokinesis with EF of 40 to 45%. Anticoagulation per cardiology re commendations. Physical therapy recommendations for acute rehab. 11/03/2020. Patient appears to have worsening aphasia and worsening right-sided weakness today per neurology. MRI brain stat. Leukocytosis likely leukemoid reaction from compartment syndrome. Patient is s/p right lower extremity t hombectomy with 4 compartment fasciotomy yesterday. Bleeding from incisions over night. Consider ID consultation. Start empiric antibiotics. 11/04/2020. Patient decompensated yesterday evening with hypotension and worsening mental status. Patient was started on vasopressors and intubated. Patient is currently intubated and on fentanyl for sedation. Patient with worsening leukocytosis. Lactic acidosis likely secondary to compartment syndrome. Patient is s/p right lower extremity thombectomy with 4 compartment fasciotomy on 11/02/2020. Levaquin started empirically yesterday. ID consulta tion today. Patient also with worsening creatinine secondary to acute kidney injury. 11/05/2020. Patient attempted to pull out his ETT while I was examining him. Continue restraints for safety. Patient did manage to pull out his Winkler catheter and now has hematuria. We will irrigate the bladder and monitor closely patient is on anticoagulation with IV heparin. Continue Levophed drip to maintain MAP >65. Patient currently with mechanical ventilation AC mode rate of 12, tidal volume 500, FiO2 30% and a PEEP of 6. Continue fentanyl for sedation. Consult hematology hypercoagulable state given the arterial and venous thrombi. 11/06/2020. Hematology ordered argatroban and steroid pulse therapy. Follow work-up to rule out HIT. Follow-up pF4 Ab testing, Hgb electrophoresis, cardiolipin ab. Continue Levophed drip to maintain MAP >65. Patient currently with mechanical ventilation AC mode rate of 12, tidal volume 500, FiO2 30% and a PEEP of 6. Continue fentanyl for sedation. Continue antibiotics of cefepime and vancomycin. Sputum, blood and urine cultures are negative. Continue restraints for safety. 11/07/2020. Continue steroid pulse therapy per hematology recommendations. Argatroban on hold for GI bleeding and hematuria. Follow-up HIT panel and pF4 Ab testing, Hgb electrophoresis, cardiolipin ab. Continue Levophed drip to maintain MAP >65. Patient currently with mechanical ventilation AC mode rate of 12, tidal volume 500, FiO2 30% and a PEEP of 6. Continue fentanyl for sedation. Continue antibiotics of cefepime and vancomycin. Sputum, blood and urine cultures are negative. Continue restraints for safety. 11/08: CT abd/pelvis obtained today is concerning for ischemic bowels, surgery was consulted. This morning patient was on CPAP trial 03/30 at the time my examination patient is on vasopressor support with Levophed and his HIT panel is pending. He was sedated on 1 mcg of fentanyl. Lab work this morning shows leukocytosis, anemia (transfuse 1 unit PRBC), hyperkalemia (received D50 and insulin), hypochloremia and increasing BUN/creatinine. 11/09: S/p ex lap and small bowel resection on 11/08 with surgery, patient was restarted argatroban drip per surgery, HIT panel negative. CCM will start on low-dose heparin drip. Patient was given 2 g of calcium for his K 5 by nephrology. Surgery plans to return to the OR tomorrow for reexploration with possible anastomosis and abdominal closure. At the time of my examination he is sedated on propofol, fentanyl and vasopressor support with Levophed. Patient is on assist control tidal volume 500, rate 18, PEEP of 6, FiO2 25%. 11/10: Patient noted to be anemic today, PRBC transfusion ordered. Patient has 2 units ready for OR, per RN hem/onc is requesting 2 units of PRBC to be transfused. Will obtain post transfusion h/h. Planned for OR today. At the time of my examination he is sedated on propofol, fentanyl and vasopressor support with Levophed. Patient is on assist control tidal volume 500, rate 12, PEEP of 6, FiO2 25%. Pericardial effusion noted as incidental finding with imaging and cardio will conduct a limited echo to quantify amount. 11/11: Patient was taken to the OR for reexploration of abdomen, appendectomy, small bowel anastomosis and surgeon found all viable small and large bowel with well-perfused anastomosis by ICG fluorescence imaging yesterday and a EARNESTINE drain was placed. AM BMP pending, CBC stable. Patient still continues to ooze at fasciotomy site and MLA dressing. RN to change dressings. Sedated with fentanyl and on levophed (RN to attempt to titrate off as tolerated) and on AC TV 500,R12,Peep 6 and 25%FiO2. Remains on heparin gtt. CPAP trial today and LA will be obtained 11/12: Leukocytosis and kidney function tests continue to improve. Patient remains on TPN with NG tube to wall suction. Overnight the patient was agitated and removed NG tube and EARNESTINE drain, NG tube replaced. RN reported patient had a bowel movement late this morning. Patient remains on ventilator support but is on a CPAP trial at time of examination. [facility] plans to extubate today. 11/13: Patient was extubated yesterday. He has hypomagnesemia which was repleted. Patient remains intubated and NG tube to low wall suction. 11/14: Patient has hypokalemia today which has been repleted and his leukocytosis has resolved. Patient remains on a 28% ISR mask with TPN and heparin drip infu sing. Patient remains on cefepime and Flagyl. Patient is able to follow simple commands. 11/15: Brief interval summary: Chest x-ray reviewed shows worsening pleural effusion on the right. Patient with tachypnea questionable secondary to the pleural effusion versus overall medical condition. Abdominal sounds remains difficult to elicit. Tense abdomen, with daniel no bleeding noted but nontender no reaction to the patient facial grimace on palpation. Still with cold lower extremity on the right dressing noted some serosanguineous secretions noted. Given his respiratory status I believe that the patient still needs ICU care rather than IMCU as he is at high risk for reintubation. Will recommend BiPAP as patient is still on heparin drip and will need to discuss with pulmonary radiology about possible thoracentesis consider right-sided pleural effusion Per cardiology evaluation patient will continue conservative therapy continue anticoagulation with heparin drip for presumed left atrial appendage thrombus. Patient continues on TPN at this time still some bowel recovery is noted. We will also reach out to vascular to reevaluate lower extremity pulses. We will check labs in a.m. including LFTs. Sepsis with septic shock Evolving MCA CVA-noted on MRI on 10/23 and 11/03 COVID-19, ruled out #Ischemic limb in setting of arterial thrombus and extensive DVT s/p revascularization sx * (11/02/2020) occlusive arterial thrombus and extensive DVT developed in right lower limb. Vascular surgery performed open revascularization with 4 compartment fasciotomy. 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 Acute hypoxic respiratory failure Acute on chronic systolic heart failure with exacerbation Pneumonia Urinary tract infection Right-sided pleural effusion Acute kidney injury secondary to vasomotor nephropathy Left atrial appendage thrombus Anemia multifactorial s/p 5 units PRBC transfusion Hyperchloremia Hypokalemia Cardiomyopathy Left bundle branch block Hypertension Hypothyroidism DVT/GI prophylaxis: SCDs to bilateral extremities while in bed, Protonix, heparin gtt Disposition: Transfer to [facility] The high probability of a clinically significant, sudden or life threatening deterioration of the [cardiac, respiratory and hemodynamic] system(s) required my full and direct attention, intervention and personal management. The aggregate critical care time was [35] minutes. This time is in addition to time spent performing reported procedures but includes the following: [x] Data Review and interpretation [x] Patient assessment and monitoring of vital signs [x] Documentation [x] Medication orders and management History Interval history: Patient seen and examined this morning per nursing staff patient has been agit ated over the last 2 days with increased respiratory rate in the 40s. Seen this morning. Patient had received some fentanyl, and Ativan yesterday. Seem to have helped some. During my exam this morning patient received Ativan and it was sedated still with increased respiration in the mid 30s. Noted cold right lower extremity nurse to obtain a Doppler pulse study. CCM, cardiology, neurology, vascular surgery, nephrology,general surgery, infectious disease, hematology/oncology, GI, surgery, WOCN, ST/PT/OT consulted, appreciate recommendations -10/23 CT head shows no acute findings, periventricular areas of low attenuation suggestive of nonspecific white matter change, concern for acute ischemic change -10/23 CTA chest shows findings suggestive of mild congestive failure, negative for pulmonary embolism -10/23 CT head with contrast shows no indication of intracranial stenosis or large vessel occlusion -10/23 CTA neck shows no indication of hemodynamically significant stenosis the carotid bifurcations are also clear, right larger than left pleural effusion, remote ACDF at C5-C6 and C6-C7 levels, multifocal neuroforaminal narrowing, mild central canal stenosis evident at C5-C6 level -10/23 bilateral carotid ultrasound shows no significant stenosis -10/23 echocardiogram shows left ventricle moderately dilated, borderline concentric left ventricular hypertrophy, impaired LV relaxation, moderate left ventricular diastolic dysfunction, left ventricular end-diastolic pressure is moderately elevated, no left ventricle thrombus noted in the study, mildly dilated right ventricle, mildly dilated left atrium, saline bubble contrast intravenous injection does not demonstrate PFO, the ventricle systolic function is mild to moderately decreased, LVEF is 35 to 40% with hypokinesis of the sept al and inferior wall, moderate to severe hypokinesis in the inferior wall, moderate hypokinesis of the mid inferior septal wall, moderate hypokinesis of the apical septal wall, trace TR, RVSP is 23 mmHg. -10/25 MRI Brain shows acute infarction in the left middle cerebral artery without hemorrhagic conversion -11/02 bilateral lower extremity Doppler ultrasound shows occlusive thrombus in the peroneal vein -11/02 s/ right lower extremity emergent embolectomy with right 4 compartment fasciotomy with vascular surgery -11/03 MRI brain shows interval evolutionary changes of the patchy areas of infarction along the left trigonal region, development of 7 mm focus of acute infarction involving more superior left frontoparietal junction -11/04 abdominal x-ray shows persistent abdominal distention -11/04 renal ultrasound shows findings of medical renal disease without other significant sonographic abnormality -11/05 abdominal x-ray shows increasing bowel distention appears to be predominantly in the colon, moderate/large chronic stool with no free air -11/05 CT head shows decreased attenuation along the superior parietal lobe compatible with evolving infarction without intracranial hemorrhage or other acute abnormality/interval changes -11/07 abdominal x-ray shows abundant fecal material noted throughout the colon and rectal vault consistent with history of constipation which are minimally improved when compared to 11/05, gas-filled and distended bowel loops are similar to prior exam -11/07 CT head shows evolving infarcts involving the left temporoparietal to the left frontoparietal lobes since 11/05 -11/08 abdomen/pelvis CT shows mild diffuse dilation of small bowel loops and proximal colon with evidence of pneumatosis concerning for ischemic bowel, small ascites but no evidence of free air or fluid collection, diffuse ileus also suspected, mild cardiomegaly with trace pericardial effusion, few tiny gallstones in the gallbladder with out abnormal dilation or wall thickening. -11/08 s/p exploratory laparotomy, small bowel resection; intaop findings: 1. Segmental infarcts of distal small intestine with pneumatosis intestinalis present - approximately 30 cm of small bowel resected, 2. SMA with strongly palpable pulse., 3. Large stool burden in left colon -11/10 Limited echocardiogram shows left ventricular systolic function moderately decreased, LVEF 35 to 40%, mild concentric LVH, trace pericardial effusion adjacent to the right ventricle, pulmonary valve is normal in structure, tr icuspid valve is normal in structure -11/10 s/p reexploration of abdomen, appendectomy, small bowel anastomosis and surgeon found all viable small and large bowel with well-perfused anastomosis by ICG fluorescence imaging. EARNESTINE drain was placed. -IV antibiotics -Aspirin 325, Lipitor, BB (on hold per surgery as pt is strict NPO) -HIT panel negative -SSI -Continue home Synthroid, converted to IV -Hold antihypertensive regimen in setting of hypotension recent use of vasopressors -Transfuse for hbg <7 -TPN -BiPAP nightly and as needed -Duculox suppository -Trend CBC, BMP Hospitalist Physical - Physical exam Narrative exam: General appearance: Present: Mild distress anxious. Sedated - EENT Eyes: Present: PERRL, EOM intact ENT: hearing intact, poor dentition - Neck Neck: Present: normal ROM - Respiratory Respiratory effort: normal Respiratory: bilateral: CTA - Cardiovascular Rhythm: regular Heart Sounds: Present: S1 & S2. Absent: systolic murmur, diastolic murmur - Extremities Extremities: Cool to touch. Of the right lower extremity dressing in place. Unable to palpate pulse on the right side. Positive posterior tibialis Doppler pulse but no DP pulse. Peripheral Pulses: Diminished - Abdominal General gastrointestinal: Surgical daniel intact. No bleeding. Tense hypoactive sounds. - Integumentary Integumentary: Present: warm, dry - Psychiatric Psychiatric: cooperative - Neurologic Neurologic: focal deficits (when awake per nursing follows simple commands with left UE and LE) - Allied Health Allied health notes reviewed: nursing, RT - Constitutional Vitals: Temp Pulse Resp BP Pulse Ox 98.2 F 78 46 H 125/79 100 11/15/20 08:00 11/15/20 06:57 11/15/20 06:31 11/15/20 06:57 11/15/20 06:31 General appearance: Present: no acute distress HEART Score - HEART Score Troponin: Troponin T 0.026 ng/mL (0.00-0.029) 10/23/20 16:39 Results - Labs CBC & Chem 7: 11/16/20 04:40 11/16/20 04:40 Labs: Laboratory Last Values WBC 12.1 K/mm3 (4.5-11.0) H 11/15/20 Unknown RBC 2.43 M/mm3 (3.65-5.03) L 11/15/20 Unknown Hgb 7.3 gm/dl (11.8-15.2) L 11/15/20 Unknown Hct 21.5 % (35.5-45.6) L 11/15/20 Unknown MCV 88 fl (84-94) 11/15/20 Unknown MCH 30 pg (28-32) 11/15/20 Unknown MCHC 34 % (32-34) 11/15/20 Unknown RDW 16.1 % (13.2-15.2) H 11/15/20 Unknown Plt Count 205 K/mm3 (140-440) 11/15/20 Unknown Lymph % (Auto) 27.8 % (13.4-35.0) 10/23/20 13:32 [place] % (Auto) 6.0 % (0.0-7.3) 10/23/20 13:32 Eos % (Auto) 1.6 % (0.0-4.3) 10/23/20 13:32 Baso % (Auto) 0.7 % (0.0-1.8) 10/23/20 13:32 Lymph # (Auto) 1.5 K/mm3 (1.2-5.4) 10/23/20 13:32 [place] # (Auto) 0.3 K/mm3 (0.0-0.8) 10/23/20 13:32 Eos # (Auto) 0.1 K/mm3 (0.0-0.4) 10/23/20 13:32 Baso # (Auto) 0.0 K/mm3 (0.0-0.1) 10/23/20 13:32 Add Manual Diff Complete 11/09/20 03:21 Total Counted 100 11/09/20 03:21 Seg Neutrophils % Bench Manager 11/09/20 03:21 Seg Neuts % (Manual) 89.0 % (40.0-70.0) H 11/09/20 03:21 Lymphocytes % (Manual) 6.0 % (13.4-35.0) L 11/09/20 03:21 Monocytes % (Manual) 5.0 % (0.0-7.3) 11/09/20 03:21 Metamyelocytes % 1.0 % 11/04/20 04:00 Nucleated RBC % Not Reportable 11/09/20 03:21 Seg Neutrophils # 3.4 K/mm3 (1.8-7.7) 10/23/20 13:32 Seg Neutrophils # Man 16.9 K/mm3 (1.8-7.7) H 11/09/20 03:21 Band Neutrophils # 0.0 K/mm3 11/09/20 03:21 Lymphocytes # (Manual) 1.1 K/mm3 (1.2-5.4) L 11/09/20 03:21 Abs React Lymphs (Man) 0.0 K/mm3 11/09/20 03:21 Monocytes # (Manual) 1.0 K/mm3 (0.0-0.8) H 11/09/20 03:21 Eosinophils # (Manual) 0.0 K/mm3 (0.0-0.4) 11/09/20 03:21 Basophils # (Manual) 0.0 K/mm3 (0.0-0.1) 11/09/20 03:21 Metamyelocytes # 0.0 K/mm3 11/09/20 03:21 Myelocytes # 0.0 K/mm3 11/09/20 03:21 Promyelocytes # 0.0 K/mm3 11/09/20 03:21 Blast Cells # 0.0 K/mm3 11/09/20 03:21 WBC Morphology Not Reportable 11/09/20 03:21 Hypersegmented Neuts Not Reportable 11/09/20 03:21 Hyposegmented Neuts Not Reportable 11/09/20 03:21 Hypogranular Neuts Not Reportable 11/09/20 03:21 Smudge Cells Not Reportable 11/09/20 03:21 Toxic Granulation Not Reportable 11/09/20 03:21 Toxic Vacuolation Not Reportable 11/09/20 03:21 Dohle Bodies Not Reportable 11/09/20 03:21 Pelger-Huet Anomaly Not Reportable 11/09/20 03:21 Demaroi Rods Not Reportable 11/09/20 03:21 Platelet Estimate Consistent w auto 11/09/20 03:21 Clumped Platelets Not Reportable 11/09/20 03:21 Plt Clumps, EDTA Not Reportable 11/09/20 03:21 Large Platelets Not Reportable 11/09/20 03:21 Giant Platelets Not Reportable 11/09/20 03:21 Platelet Satelliting Not Reportable 11/09/20 03:21 Plt Morphology Comment Not Reportable 11/09/20 03:21 RBC Morphology Not Reportable 11/09/20 03:21 Dimorphic RBCs Not Reportable 11/09/20 03:21 Polychromasia Not Reportable 11/09/20 03:21 Hypochromasia 1+ 11/09/20 03:21 Poikilocytosis Not Reportable 11/09/20 03:21 Anisocytosis 1+ 11/09/20 03:21 Microcytosis Not Reportable 11/09/20 03:21 Macrocytosis Not Reportable 11/09/20 03:21 Spherocytes Not Reportable 11/09/20 03:21 Pappenheimer Bodies Not Reportable 11/09/20 03:21 Sickle Cells Not Reportable 11/09/20 03:21 Target Cells Not Reportable 11/09/20 03:21 Tear Drop Cells Not Reportable 11/09/20 03:21 Ovalocytes Not Reportable 11/09/20 03:21 Helmet Cells Not Reportable 11/09/20 03:21 [place] Bodies Not Reportable 11/09/20 03:21 Machias Rings Not Reportable 11/09/20 03:21 Caryn Cells Not Reportable 11/09/20 03:21 Bite Cells Not Reportable 11/09/20 03:21 Crenated Cell Not Reportable 11/09/20 03:21 Elliptocytes Not Reportable 11/09/20 03:21 Acanthocytes (Spur) Not Reportable 11/09/20 03:21 Rouleaux Not Reportable 11/09/20 03:21 Hemoglobin C Crystals Not Reportable 11/09/20 03:21 Schistocytes Not Reportable 11/09/20 03:21 Malaria parasites Not Reportable 11/09/20 03:21 Lico Bodies Not Reportable 11/09/20 03:21 Hem Pathologist Commnt No 11/09/20 03:21 PT 15.7 Sec. (12.2-14.9) H 11/13/20 Unknown INR 1.27 (0.87-1.13) H 11/13/20 Unknown APTT 60.6 Sec. (24.2-36.6) H* 11/13/20 Unknown D-Dimer 4139.61 ng/mlDDU (0-234) H 10/23/20 18:23 Heparin Anti-Xa Level 0.30 U.I./ml (0.3-0.7) 11/15/20 Unknown Heparin Anti-Xa, Unfract Negative (Negative) 11/06/20 Unknown ABG pH 7.453 (7.320-7.450) H 11/14/20 23:24 POC ABG pCO2 33.2 mmHg (32.0-48.0) 11/14/20 23:24 POC ABG pO2 118.0 mmHg (83-108) H 11/14/20 23:24 POC ABG HCO3 22.7 11/14/20 23:24 ABG O2 Saturation 98.5 (0-100) 11/14/20 23:24 POC ABG Base Excess -1.0 11/14/20 23:24 ABG Hemoglobin 7.7 (12.0-17.5) L 11/14/20 23:24 ABG Oxyhemoglobin 97.6 (94-98) 11/14/20 23:24 ABG Methemoglobin 0.3 (0.0-1.5) 11/14/20 23:24 ABG Sodium 137.9 mmol/L (136.0-145.0) 11/14/20 23:24 ABG Potassium 3.6 mmol/L (3.40-4.50) 11/14/20 23:24 ABG Chloride 111.0 mmol/L (98-107) H 11/14/20 23:24 ABG Glucose 149 mg/dL (65-95) H 11/14/20 23:24 Carboxyhemoglobin 0.6 (0.5-1.5) 11/14/20 23: FiO2 % 28.0 11/14/20 23:24 Sodium 141 mmol/L (137-145) 11/15/20 Unknown Potassium 3.8 mmol/L (3.6-5.0) 11/15/20 Unknown Chloride 108.0 mmol/L (98-107) H 11/15/20 Unknown Carbon Dioxide 25 mmol/L (22-30) 11/15/20 Unknown Anion Gap 12 mmol/L 11/15/20 Unknown BUN 80 mg/dL (9-20) H 11/15/20 Unknown Creatinine 2.7 mg/dL (0.8-1.3) H 11/15/20 Unknown Estimated GFR 28 ml/min 11/15/20 Unknown BUN/Creatinine Ratio 30 % 11/15/20 Unknown Glucose 152 mg/dL (75-100) H 11/15/20 Unknown POC Glucose 128 mg/dL (70-105) H 11/14/20 23:09 Lactic Acid 0.90 mmol/L (0.7-2.0) 11/11/20 13:57 Calcium 7.2 mg/dL (8.4-10.2) L 11/15/20 Unknown Ionized Calcium 4.7 mg/dL (4.8-5.6) L 11/06/20 06:00 Phosphorus 2.80 mg/dL (2.5-4.5) 11/15/20 Unknown Magnesium 2.60 mg/dL (1.7-2.3) H 11/15/20 Unknown Ferritin 238.5 ng/mL (30.0-300.0) 10/23/20 18:23 Total Bilirubin 0.50 mg/dL (0.1-1.2) 11/08/20 19:11 Direct Bilirubin < 0.2 mg/dL (0-0.2) 11/08/20 19:11 Indirect Bilirubin 0.3 mg/dL 11/08/20 19:11 AST 21 units/L (5-40) 11/08/20 19:11 ALT 27 units/L (7-56) 11/08/20 19:11 Alkaline Phosphatase 41 units/L (35-129) 11/08/20 19:11 Lactate Dehydrogenase 334 units/L (91-180) H 10/23/20 18:23 Troponin T 0.026 ng/mL (0.00-0.029) 10/23/20 16:39 C-Reactive Protein 8.30 mg/dL (0.00-1.30) H 11/04/20 13:01 NT-Pro-B Natriuret Pep 5806 pg/mL (0-900) H 10/23/20 13:32 Serum Total Protein 4.1 g/dL (6.1-8.1) L 11/06/20 Unknown Total Protein 3.8 g/dL (6.3-8.2) L 11/08/20 19:11 Albumin 2.2 g/dL (3.9-5) L 11/08/20 19:11 Albumin/Globulin Ratio 1.4 % 11/08/20 19:11 [id number]-[id number] 0.5 g/dL (0.2-0.3) H 11/06/20 Unknown [id number] 0.7 g/dL (0.5-0.9) 11/06/20 Unknown Beta Globulins 0.2 g/dL (0.2-0.5) 11/06/20 Unknown Gamma Globulins 0.4 g/dL (0.8-1.7) L 11/06/20 Unknown Abnorm Protein Band 1 see below 11/06/20 Unknown PEP Interpretation see below H 11/06/20 Unknown Triglycerides 63 mg/dL (2-149) 11/10/20 05:30 Cholesterol 139 mg/dL (50-199) 10/24/20 09:29 LDL Cholesterol Direct 87 mg/dL (50-130) 10/24/20 09:29 HDL Cholesterol 46 mg/dL (40-59) 10/24/20 09:29 Cholesterol/HDL Ratio 3.02 % 10/24/20 09:29 Serotonin Release Assay See scanned result 11/06/20 Unknown Procalcitonin 0.99 ng/mL (<0.15) 11/03/20 21:14 TSH 6.540 mlU/mL (0.270-4.200) H 10/23/20 18:23 TSH 7.100 mlU/mL (0.270-4.200) H 10/23/20 18:23 Free T4 1.33 ng/dL (0.76-1.46) 10/23/20 18:23 Arterial Blood Glucose 149 mg/dL (65-95) H 11/14/20 23:24 Arterial Blood Ionized Calcium 4.3 mg/dL (4.6-5.3) L 11/14/20 23:24 Urine Color Yellow (Yellow) 11/04/20 11:00 Urine Turbidity Hazy (Clear) 11/04/20 11:00 Urine pH 5.0 (5.0-7.0) 11/04/20 11:00 Ur Specific [place] 1.017 (1.003-1.030) 11/04/20 11:00 Urine Protein 30 mg/dl mg/dL (Negative) 11/04/20 11:00 Urine Glucose (UA) 50 mg/dL (Negative) 11/04/20 11:00 Urine Ketones Neg mg/dL (Negative) 11/04/20 11:00 Urine Blood Neg (Negative) 11/04/20 11:00 Urine Nitrite Neg (Negative) 11/04/20 11:00 Urine Bilirubin Neg (Negative) 11/04/20 11:00 Urine Urobilinogen < 2.0 mg/dL (<2.0) 11/04/20 11:00 Ur Leukocyte Esterase Tr (Negative) 11/04/20 11:00 Urine WBC (Auto) 19.0 /HPF (0.0-6.0) H 11/04/20 11:00 Urine RBC (Auto) 3.0 /HPF (0.0-6.0) 11/04/20 11:00 U Epithel Cells (Auto) < 1.0 /HPF (0-13.0) 11/04/20 11:00 Urine Mucus Few /HPF 11/04/20 11:00 Urine Eosinophils None seen (None Seen) 11/04/20 12:50 Urine Creatinine < 4.2 mg/dL (0.1-20.0) 11/04/20 12:50 Urine Sodium 10 mmol/L 11/04/20 12:50 Random Vancomycin 10.7 ug/mL (0-40.0) 11/08/20 04:39 Heparin-induced Plt Ab Negative (Negative) 11/06/20 Unknown UF Heparin High Dose 0 % Release 11/06/20 Unknown DYLAN UFH Low Dose 0.1 0 % Release 11/06/20 Unknown DYLAN UFH Low Dose 0.5 0 % Release 11/06/20 Unknown Cardiolipid IgG Ab <14 GPL (<=14) 11/06/20 Unknown Cardiolipid IgA Ab <11 APL (<=11) 11/06/20 Unknown Cardiolipid IgM Ab <12 MPL (<=12) 11/06/20 Unknown Coronavirus (PCR) Negative (Negative) 10/24/20 09:57 Blood Type O POSITIVE 11/13/20 20:35 Antibody Screen Negative 11/13/20 20:35 Crossmatch See Detail 11/13/20 20:35 Winkler/IV: Voiding Method Indwelling Catheter Active Medications - Current Medications Current Medications: Generic Name Dose Route Start Last Admin Trade Name Freq PRN Reason Stop Dose Admin Bisacodyl 10 mg 11/08/20 22:00 11/14/20 21:19 Bisacodyl 10 Mg Rect Supp NC 10 mg BID ALEX Administration Dextrose 50 ml 11/08/20 08:04 Dextrose 50% In Water (25gm) 50 Ml Syringe IV Q30MIN PRN Hypoglycemia Protocol Glycopyrrolate 0.2 mg 11/13/20 13:00 11/14/20 21:19 Glycopyrrolate 0.4 Mg/2 Ml Inj IV 11/20/20 12:59 0.2 mg BID ALEX Administration Hydromorphone HCl 1 mg 11/11/20 13:35 11/14/20 21:39 Hydromorphone 1 Mg/1 Ml Inj IV 1 mg Q4H PRN Administration Pain , Severe (7-10) Hydrophilic Ointment 1 applic 11/03/20 16:46 Lip Therapy Vaseline TP Q2HR PRN Dry Lips NORepinephrine/NS 8 MG-250 ML 8 mg in 250 mls @ 3.75 mls/hr 11/03/20 18:00 11/11/20 12:20 Norepinephrine/Ns 8 Mg-250 Ml (Double Conc) IV 0 mcg/min TITRATE ALEX 0 mls/hr Titration Protocol 2 MCG/MIN Heparin Sodium/Sodium Chloride 25,000 unit in 500 mls @ 30 mls/hr 11/09/20 13:00 11/15/20 04:00 Heparin/ 0.45% Nacl-25,000 Unit/500 Ml IV 1,100 units/hr TITR ALEX 22 mls/hr Titration Protocol 1,500 UNITS/HR Amino Acids/Electrolytes/Dextrose 1,800 mls @ 75 mls/hr 11/14/20 20:00 11/14/20 20:34 Tpn Adult IV 11/15/20 19:59 75 mls/hr DAILY@2000 ALEX Administration Protocol Insulin Human Regular 0 units 11/12/20 12:00 11/15/20 07:01 Insulin Regular, Human 100 Units/1 Ml SUB-Q Not Given Q6HR [facility] Protocol Levothyroxine Sodium 75 mcg 11/09/20 06:00 11/15/20 06:58 Levothyroxine 100 Mcg Inj IV 75 mcg DAILY@0600 ALEX Administration Metoprolol Tartrate 5 mg 11/12/20 12:00 11/15/20 06:57 Metoprolol Tartrate 5 Mg/5 Ml Inj IV 5 mg Q6HR ALEX Administration Multi-Ingred Cream/Lotion/Oil/Oint 1 applic 11/03/20 16:46 Mineral Oil/Petrolatum, White Ophth Oint 3.5 Gm OU Q4HR PRN Dry Eye(s) Ondansetron HCl 4 mg 10/23/20 20:00 11/07/20 23:09 Ondansetron 4 Mg/2 Ml Inj IV 4 mg Q8H PRN Administration Nausea And Vomiting Pantoprazole Sodium 40 mg 11/07/20 22:00 11/14/20 21:19 Pantoprazole 40 Mg Inj IV 40 mg BID ALEX Administration Scopolamine 1 each 11/16/20 10:00 Scopolamine Transdermal Patch 72 Hr TD Q3D ALEX Sodium Chloride 10 ml 10/23/20 20:00 11/14/20 09:42 Sodium Chloride 0.9% 10 Ml Flush Syringe IV 10 ml PRN PRN Administration LINE FLUSH Nutrition/Malnutrition Assess - Dietary Evaluation Nutrition/Malnutrition Findings: Nutrition Notes Start: 10/24/20 11:33 Freq: Status: Active Protocol: Document 11/14/20 10:26 LP (Rec: 11/14/20 10:30 LP [id number]) Nutrition Notes Initial or Follow up Reassessment Current Diagnosis Acute Kidney Injury,Sepsis, Hypertension,Heart Failure, Respiratory Failure,Stroke Other Pertinent Diagnosis post op ileus Current Diet TPN at 75ml/hr Labs/Tests K 3.2 Pertinent Medications 40mEq KCL Height 5 ft 11 in Weight 108.5 kg [place] Body Weight (kg) 78.18 BMI 33.3 Weight Status Overweight Subjective/Other Information CPN day 5. No new changes. Percent of energy/protein needs met: 100%/96% Burn Absent Trauma Absent GI Symptoms Other Current % PO Negligible Minimum of two criteria No Fluid Accumulation Moderate to Severe (severe) #3 Nutrition Diagnosis Increased nutrient needs ( specify in comment below) Comments: Protein As Evidenced by Signs and Symptoms Pt with leg wounds Diagnosis Progress(for reassessment Continues documentation) #2 Nutrition Diagnosis Inadequate oral intake Diagnosis Progress(for reassessment Continues documentation) Is patient on ventilator? No Is Patient Ambulatory and/or Out of Bed No REE-([place]-confined to bed) 2245.968 Kcal/Kg value to use for calculation 18 Approximate Energy Requirements Using 3 kcal/Kg Calculation Used for Recommendations Kcal/kg Additional Notes Protein: 116-140 g (1.25-1.5 g /kg 93kg adj wt) Fluid: 1 ml/kcal Nutrition Intervention Change Diet Order: Continue CPN Nutrition Support: CPN at 75ml/hr: 51mEq K, MVI. Kcal 1,535 Protein (gm) 150 Carbohydrates (gm) 275 Fat (gm) 0 Fluid (mL) 1,800 Fiber (gm) 0 Goal #1 Meet kcal and protein needs as best as possible via CPN Goal #2 Wound healing Anticipated Discharge Needs: Unable to determine at this time Follow-Up By: 11/15/20 Additional Comments Labs in AM: BMP, Mg, Phos
--- NOTE | 2020-11-15 10:26 | Progress Note ---
Assessment and Plan Cultures: Sputum culture 11/03/2020 upper respiratory mechelle Urine culture 11/04/2020 negative Blood culture 11/04/2020 no growth today Tracheal aspirate 11/04/2020 Neisha albicans Assessment: 70-year-old male with history of hypertension, hypothyroidism, admitted on 10/23/2020 secondary to 2-day history of acute altered mental status with confusion and diminished cognition; noted to have a left MCA CVA and right leg acute thrombosis, now with worsening leukocytosis and on pressors: #Severe sepsis with septic shock: Likely secondary to acute thrombus of the right lower extremity complicated with compartment syndrome. 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 Neurology evaluated. #Acute right leg thromboses: Complicated with compartment syndrome s/p open thrombectomy of the right lower extremity and right lower extremity compartment syndrome fasciotomy on 11/02/2020. #STACEY: creat elevated. Renally adjust antibiotics. #Acute respiratory failure: Chest x-ray with pulmonary edema and b/l pleural effusions. SARS-CoV-2 PCR negative. #Cardiomyopathy: EF 35 to 40%. #Left atrial appendage thrombus #Anemia Recommendations: -Completed Cefepime and Flagyl yesterday, hold off on additional antibiotics at this time -Monitor for any fever or worsening leukocytosis Yolanda Solano MD, FACP [facility] ([facility] O: [phone] F: [phone] Subjective Date of service: 11/15/20 Principal diagnosis: Ac hypoxemic resp failure; CVA; Acute limb ischemia; Acute encephalopathy Interval history: No fever. Appears drowsy. Objective - Exam Narrative Exam: Physical Exam: Constitutional: Drowsy Head, Ears, Nose: Normocephalic, atraumatic. External ears, nose normal Eyes: Conjunctivae/corneas clear. No icterus. No ptosis. Neck: Supple, no meningeal signs Cardiovascular: S1, S2 normal. Respiratory: Air entry decreased in bases GI: Soft, bowel sounds present, dressings present. Scrotal edema present Musculoskeletal: Anasarca, RLE in dressing. Feet bilaterally are cool to touch Skin: No rash or abscess Hem/Lymphatic: No palpable cervical or supraclavicular nodes. No lymphangitis Psych: No agitation Neurological: Drowsy - Constitutional Vitals: Vital Signs Temp Pulse Resp BP Pulse Ox 98.2 F 70 35 H 107/70 100 11/15/20 08:00 11/15/20 09:31 11/15/20 09:31 11/15/20 09:31 11/15/20 09:56 Temperature -Last 24 Hours Temperature 98.2 F Temperature 98.3 F Temperature 99.4 F Temperature 99.5 F Temperature 98.1 F - Labs CBC & Chem 7: 11/15/20 Unknown 11/15/20 Unknown Labs: Abnormal lab results 11/14/20 11/14/20 11/14/20 Range/Units 12:18 23:09 23:24 WBC (4.5-11.0) K/mm3 RBC (3.65-5.03) M/mm3 Hgb (11.8-15.2) gm/dl Hct (35.5-45.6) % RDW (13.2-15.2) % ABG pH 7.453 H (7.320-7.450) POC ABG pO2 118.0 H (83-108) mmHg ABG Hemoglobin 7.7 L (12.0-17.5) ABG Chloride 111.0 H (98-107) mmol/L ABG Glucose 149 H (65-95) mg/dL Chloride (98-107) mmol/L BUN (9-20) mg/dL Creatinine (0.8-1.3) mg/dL Glucose (75-100) mg/dL POC Glucose 129 H 128 H (70-105) mg/dL Calcium (8.4-10.2) mg/dL Magnesium (1.7-2.3) mg/dL Arterial Blood Glucose 149 H (65-95) mg/dL Arterial Blood Ionized Calcium 4.3 L (4.6-5.3) mg/dL 11/15/20 11/15/20 11/15/20 Range/Units 05:16 Unknown Unknown WBC 12.1 H (4.5-11.0) K/mm3 RBC 2.43 L (3.65-5.03) M/mm3 Hgb 7.3 L (11.8-15.2) gm/dl Hct 21.5 L (35.5-45.6) % RDW 16.1 H (13.2-15.2) % ABG pH (7.320-7.450) POC ABG pO2 (83-108) mmHg ABG Hemoglobin (12.0-17.5) ABG Chloride (98-107) mmol/L ABG Glucose (65-95) mg/dL Chloride 108.0 H (98-107) mmol/L BUN 80 H (9-20) mg/dL Creatinine 2.7 H (0.8-1.3) mg/dL Glucose 152 H (75-100) mg/dL POC Glucose 146 H (70-105) mg/dL Calcium 7.2 L (8.4-10.2) mg/dL Magnesium 2.60 H (1.7-2.3) mg/dL Arterial Blood Glucose (65-95) mg/dL Arterial Blood Ionized Calcium (4.6-5.3) mg/dL - Imaging and cardiology Chest x-ray: report reviewed, image reviewed (b/l effusions)
[2020-11-15] MEDS: GLYCOPYRROLATE 0.4 MG/2 ML INJ IV SCH ×2 (11:07→21:00)
[2020-11-15] MEDS: PANTOPRAZOLE 40 MG INJ IV SCH ×2 (11:07→21:00)
--- NOTE | 2020-11-15 13:35 | Progress Note ---
Assessment and Plan POD#5 s/p small bowel anastamosis after SB resection for emobolic infarction. Afebrile and stable. Post op ileus clinically resolving since had a bowel movement over the weekend. Continue heparin drip per medicine recommendations. If tachypnia resolves can consider starting trickle tube feeds. Subjective Date of service: 11/15/20 Narrative: no acute GI or surgical events overnight. Pt became tachypnic but otherwise stable. Objective Vital Signs - 12hr 11/15/20 11/15/20 11/15/20 02:00 02:30 03:00 Temperature Pulse Rate 70 71 74 Pulse Rate [ From Monitor] Pulse Rate [ Right Dorsalis Pedis] Pulse Rate [ Right Posterior Tibial] Respiratory 13 44 H 47 H Rate Blood Pressure 117/72 117/72 119/73 O2 Sat by Pulse 100 100 100 Oximetry 11/15/20 11/15/20 11/15/20 03:25 03:30 04:00 Temperature 98.3 F Pulse Rate 74 77 Pulse Rate [ 77 From Monitor] Pulse Rate [ Right Dorsalis Pedis] Pulse Rate [ Right Posterior Tibial] Respiratory 39 H 21 Rate Blood Pressure 119/73 119/73 O2 Sat by Pulse 100 100 Oximetry 11/15/20 11/15/20 11/15/20 04:30 05:00 05:30 Temperature Pulse Rate 77 78 77 Pulse Rate [ From Monitor] Pulse Rate [ Right Dorsalis Pedis] Pulse Rate [ Right Posterior Tibial] Respiratory 24 39 H 32 H Rate Blood Pressure 120/76 120/76 121/70 O2 Sat by Pulse 100 100 100 Oximetry 11/15/20 11/15/20 11/15/20 06:00 06:31 06:57 Temperature Pulse Rate 79 80 78 Pulse Rate [ From Monitor] Pulse Rate [ Right Dorsalis Pedis] Pulse Rate [ Right Posterior Tibial] Respiratory 45 H 46 H Rate Blood Pressure 121/70 125/79 125/79 O2 Sat by Pulse 99 100 Oximetry 11/15/20 11/15/20 11/15/20 07:00 07:30 08:00 Temperature 98.2 F Pulse Rate 78 73 76 Pulse Rate [ 69 From Monitor] Pulse Rate [ 0 L Right Dorsalis Pedis] Pulse Rate [ 65 Right Posterior Tibial] Respiratory 10 L 26 H 15 Rate Blood Pressure 125/79 125/79 125/79 O2 Sat by Pulse 100 99 100 Oximetry 11/15/20 11/15/20 11/15/20 08:30 09:00 09:31 Temperature Pulse Rate 77 74 70 Pulse Rate [ From Monitor] Pulse Rate [ Right Dorsalis Pedis] Pulse Rate [ Right Posterior Tibial] Respiratory 44 H 40 H 35 H Rate Blood Pressure 125/79 111/63 107/70 O2 Sat by Pulse 100 100 100 Oximetry 11/15/20 11/15/20 11/15/20 09:56 10:00 10:31 Temperature Pulse Rate 68 69 Pulse Rate [ From Monitor] Pulse Rate [ Right Dorsalis Pedis] Pulse Rate [ Right Posterior Tibial] Respiratory 35 H 35 H Rate Blood Pressure 113/49 113/49 O2 Sat by Pulse 100 100 100 Oximetry 11/15/20 11/15/20 11/15/20 11:01 11:31 12:00 Temperature 98.1 F Pulse Rate 70 80 79 Pulse Rate [ From Monitor] Pulse Rate [ Right Dorsalis Pedis] Pulse Rate [ Right Posterior Tibial] Respiratory 36 H 38 H 43 H Rate Blood Pressure 113/57 113/49 114/55 O2 Sat by Pulse 100 97 100 Oximetry 11/15/20 11/15/20 11/15/20 12:21 12:24 12:31 Temperature Pulse Rate 86 68 64 Pulse Rate [ From Monitor] Pulse Rate [ Right Dorsalis Pedis] Pulse Rate [ Right Posterior Tibial] Respiratory 39 H 38 H Rate Blood Pressure 114/55 114/55 114/55 O2 Sat by Pulse 99 100 Oximetry - General physical appearance well developed, no distress, no pain, chronically ill - Respiratory normal expansion, normal respiratory effort - Abdomen soft, not tender, not distended, other (midline incision with daniel intact with scant SS drainage.) - Labs 11/15/20 Unknown 11/15/20 Unknown Diabetes panel 11/15/20 Range/Units Unknown Sodium 141 (137-145) mmol/L Potassium 3.8 (3.6-5.0) mmol/L Chloride 108.0 H (98-107) mmol/L Carbon Dioxide 25 (22-30) mmol/L BUN 80 H (9-20) mg/dL Creatinine 2.7 H (0.8-1.3) mg/dL Glucose 152 H (75-100) mg/dL Calcium 7.2 L (8.4-10.2) mg/dL Calcium panel 11/15/20 Range/Units Unknown Calcium 7.2 L (8.4-10.2) mg/dL Phosphorus 2.80 (2.5-4.5) mg/dL Pituitary panel 11/15/20 Range/Units Unknown Sodium 141 (137-145) mmol/L Potassium 3.8 (3.6-5.0) mmol/L Chloride 108.0 H (98-107) mmol/L Carbon Dioxide 25 (22-30) mmol/L BUN 80 H (9-20) mg/dL Creatinine 2.7 H (0.8-1.3) mg/dL Glucose 152 H (75-100) mg/dL Calcium 7.2 L (8.4-10.2) mg/dL Adrenal panel 11/15/20 Range/Units Unknown Sodium 141 (137-145) mmol/L Potassium 3.8 (3.6-5.0) mmol/L Chloride 108.0 H (98-107) mmol/L Carbon Dioxide 25 (22-30) mmol/L BUN 80 H (9-20) mg/dL Creatinine 2.7 H (0.8-1.3) mg/dL Glucose 152 H (75-100) mg/dL Calcium 7.2 L (8.4-10.2) mg/dL
--- NOTE | 2020-11-15 13:47 | Progress Note ---
Assessment and Plan This is a 70-year-old male with hypertension and hypothyroidism who presented to the emergency department on 10/23 with confusion, weakness, exercise intolerance, shortness of breath on exertion, increased bedbound status and decreased oral i ntake with progressively worsened over the past 2 days prior to presentation. Patient was found to have clinical symptoms consistent with a CVA (neurology consulted, stroke pathway initiated) CHF, bilateral pneumonia, and acute hypoxic respiratory failure. Patient was initiated coronavirus, pneumonia and CHF protocol. Cardiology was consulted in the emergency department. On 11/02/20 patient underwent open thrombectomy of right leg through a common femoral arteriotomy with a 4 and 5 Zoe, right leg 4 compartment fasciotomy On 11/08/20 patient underwent exploratory laparatomy, small bowel resection, placement of ABThera VAC On 11/10/20 patient underwent reexploration of abdomen, appendectomy, small bowel anastamosis. On 11/01/20 patient underwent transesophageal echocardiogram. Reported: thrombus likely in the left atrial appendage, mildly dilated left ventricle with EF of 40-45%. Patient intubated and extubated. Patient presently on BiPAP. /, rate of 20, FiO2 28%. Patient not in acute respiratory distress, however his respiratory rate is high. However, patient's blood pressure and heart rate are within normal range. Patient may be in pain or experiencing anxiety. Recommend to give some anti-anxiety medication and something for pain. Patients ABG's done on 11/14/20 on BiPAP: ABG pH 7.453 POC ABG pCO2 33.2 mmHg POC ABG pO2 118.0 mmHg POC ABG HCO3 22.7 ABG O2 Saturation 98.5 Repeating ABG's and chest x-ray. Chest x-ray done on 11/15/20 reported Poor degree of inspiration is seen. Mild congestion is noted. Increasing density is seen in both lung bases which on the right may be partially due to increasing pleural effusion but increasing basilar infiltrate and atelectasis is also seen. No pneumothorax. Obtaining ultrasound of chest. Patient afebrile with no leukocytosis. Patient on norepinephrine, IV heparin, protonix. I spent critical care time of 50 minutes, reviewing the chart, examining the patient, reviewing the labs and x-rays, talking to the respiratory therapy and nursing staff, talking to Dr. Castorena, and figuring out the plan of treatment. - Patient Problems (1) Acute hypoxemic respiratory failure Current Visit: Yes Status: Acute Plan to address problem: BiPAP. 16/, rate of 20, FiO2 28%. Patient is solumedrol, IV heparin, protonix. ABGs on BIPAP (2) STACEY (acute kidney injury) Current Visit: Yes Status: Acute Plan to address problem: Management as per nephrology. (3) Acute CVA (cerebrovascular accident) Current Visit: Yes Status: Acute Plan to address problem: Management as per neurology. (4) Acute heart failure Current Visit: Yes Status: Acute Plan to address problem: Management as per cardiology. (5) Anemia Current Visit: Yes Status: Acute Plan to address problem: Management as per primary care. (6) Compartment syndrome Current Visit: Yes Status: Acute Plan to address problem: Management as per surgery. (7) Mesenteric embolus Current Visit: Yes Status: Acute Plan to address problem: Patient is on IV heparin. (8) Pneumonia Current Visit: Yes Status: Acute Plan to address problem: Patient was treated with cefepime and metronidazole. (9) Suspected 2019 novel coronavirus infection Current Visit: Yes Status: Acute Plan to address problem: COVID-19 serology reported negative test result. (10) Thrombus of atrial appendage Current Visit: Yes Status: Acute Plan to address problem: Patient is on IV heparin. (11) Cardiomyopathy Current Visit: Yes Status: Chronic Plan to address problem: Management as per cardiology. (12) H/O: HTN (hypertension) Current Visit: Yes Status: Chronic Plan to address problem: Management as per primary care. (13) Hypothyroidism Current Visit: Yes Status: Chronic Plan to address problem: Management as per primary care. (14) Pleural effusion, right Current Visit: Yes Status: Acute Plan to address problem: Obtaining Ultrasound of chest to quantitate pleural effusion. Subjective Date of service: 11/15/20 Principal diagnosis: Ac hypoxemic resp failure; CVA; Acute limb ischemia; Acute encephalopathy Interval history: This is a 70-year-old male with hypertension and hypothyroidism who presented to the emergency department on 10/23 with confusion, weakness, exercise intolerance, shortness of breath on exertion, increased bedbound status and decreased oral intake with progressively worsened over the past 2 days prior to presentation. Patient was found to have clinical symptoms consistent with a CVA (neurology consulted, stroke pathway initiated) CHF, bilateral pneumonia, and acute hypoxic respiratory failure. Patient was initiated coronavirus, pneumonia and CHF protocol. Cardiology was consulted in the emergency department. On 11/02/20 patient underwent open thrombectomy of right leg through a common femoral arteriotomy with a 4 and 5 Zoe, right leg 4 compartment fasciotomy On 11/08/20 patient underwent exploratory laparatomy, small bowel resection, placement of ABThera VAC On 11/10/20 patient underwent reexploration of abdomen, appendectomy, small bowel anastamosis. On 11/01/20 patient underwent transesophageal echocardiogram. Reported: thrombus likely in the left atrial appendage, mildly dilated left ventricle with EF of 40-45%. Patient intubated and extubated. Patient presently on BiPAP. 07/02, rate of 20, FiO2 28%. Patient not in acute respiratory distress, however his respiratory rate is high. However, patient's blood pressure and heart rate are within normal range. Patient may be in pain or experiencing anxiety. Recommend to give some anti-anxiety medication and something for pain. Patients ABG's done on 11/14/20 on BiPAP: ABG pH 7.453 POC ABG pCO2 33.2 mmHg POC ABG pO2 118.0 mmHg POC ABG HCO3 22.7 ABG O2 Saturation 98.5 Repeating ABG's and chest x-ray. Chest x-ray done on 11/15/20 reported Poor degree of inspiration is seen. Mild congestion is noted. Increasing density is seen in both lung bases which on the right may be partially due to increasing pleural effusion but increasing basilar infiltrate and atelectasis is also seen. No pneumothorax. Obtaining Ultrasound of chest. Patient afebrile with no leukocytosis. Patient on norepinephrine, IV heparin, protonix. Objective Vital Signs - 12hr 11/15/20 11/15/20 11/15/20 02:00 02:30 03:00 Temperature Pulse Rate 70 71 74 Pulse Rate [ From Monitor] Pulse Rate [ Right Dorsalis Pedis] Pulse Rate [ Right Posterior Tibial] Respiratory 13 44 H 47 H Rate Blood Pressure 117/72 117/72 119/73 O2 Sat by Pulse 100 100 100 Oximetry 11/15/20 11/15/20 11/15/20 03:25 03:30 04:00 Temperature 98.3 F Pulse Rate 74 77 Pulse Rate [ 77 From Monitor] Pulse Rate [ Right Dorsalis Pedis] Pulse Rate [ Right Posterior Tibial] Respiratory 39 H 21 Rate Blood Pressure 119/73 119/73 O2 Sat by Pulse 100 100 Oximetry 11/15/20 11/15/20 11/15/20 04:30 05:00 05:30 Temperature Pulse Rate 77 78 77 Pulse Rate [ From Monitor] Pulse Rate [ Right Dorsalis Pedis] Pulse Rate [ Right Posterior Tibial] Respiratory 24 39 H 32 H Rate Blood Pressure 120/76 120/76 121/70 O2 Sat by Pulse 100 100 100 Oximetry 11/15/20 11/15/20 11/15/20 06:00 06:31 06:57 Temperature Pulse Rate 79 80 78 Pulse Rate [ From Monitor] Pulse Rate [ Right Dorsalis Pedis] Pulse Rate [ Right Posterior Tibial] Respiratory 45 H 46 H Rate Blood Pressure 121/70 125/79 125/79 O2 Sat by Pulse 99 100 Oximetry 11/15/20 11/15/20 11/15/20 07:00 07:30 08:00 Temperature 98.2 F Pulse Rate 78 73 76 Pulse Rate [ 69 From Monitor] Pulse Rate [ 0 L Right Dorsalis Pedis] Pulse Rate [ 65 Right Posterior Tibial] Respiratory 10 L 26 H 15 Rate Blood Pressure 125/79 125/79 125/79 O2 Sat by Pulse 100 99 100 Oximetry 11/15/20 11/15/20 11/15/20 08:30 09:00 09:31 Temperature Pulse Rate 77 74 70 Pulse Rate [ From Monitor] Pulse Rate [ Right Dorsalis Pedis] Pulse Rate [ Right Posterior Tibial] Respiratory 44 H 40 H 35 H Rate Blood Pressure 125/79 111/63 107/70 O2 Sat by Pulse 100 100 100 Oximetry 11/15/20 11/15/20 11/15/20 09:56 10:00 10:31 Temperature Pulse Rate 68 69 Pulse Rate [ From Monitor] Pulse Rate [ Right Dorsalis Pedis] Pulse Rate [ Right Posterior Tibial] Respiratory 35 H 35 H Rate Blood Pressure 113/49 113/49 O2 Sat by Pulse 100 100 100 Oximetry 11/15/20 11/15/20 11/15/20 11:01 11:31 12:00 Temperature 98.1 F Pulse Rate 70 80 79 Pulse Rate [ From Monitor] Pulse Rate [ Right Dorsalis Pedis] Pulse Rate [ Right Posterior Tibial] Respiratory 36 H 38 H 43 H Rate Blood Pressure 113/57 113/49 114/55 O2 Sat by Pulse 100 97 100 Oximetry 11/15/20 11/15/20 11/15/20 12:21 12:24 12:31 Temperature Pulse Rate 86 68 64 Pulse Rate [ From Monitor] Pulse Rate [ Right Dorsalis Pedis] Pulse Rate [ Right Posterior Tibial] Respiratory 39 H 38 H Rate Blood Pressure 114/55 114/55 114/55 O2 Sat by Pulse 99 100 Oximetry Constitutional: asleep, appears uncomfortable, other (elderly male with mildly increased respiratory effort at rest ) Eyes: non-icteric ENT: oropharynx moist, oropharyngeal exudate pre (less today), other (extubated) Neck: supple, no lymphadenopathy, no JVD Effort: mildly labored Ascultation: Bilateral: diminished breath sounds, rales (R>L base), rhonchi (and referred upper airway sounds) Percussion: Bilateral: not dull Cardiovascular: regular rate and rhythm, murmur noted (COLE) Gastrointestinal: hypoactive bowel sounds, non-tender, other (midline incision in white dressing) Integumentary: normal Extremities: no cyanosis, pink and warm, edema (RLExt), other (RLExt fasciotomy) Neurologic: pupils equal and round, CN II-XII normal, other (Right Hemiparesis) Psychiatric: other (patient is sleepy) CBC and BMP: 11/15/20 Unknown 11/15/20 Unknown ABG, PT/INR, D-dimer: ABG ABG pH 7.453 (7.320-7.450) H 11/14/20 23:24 POC ABG pCO2 33.2 mmHg (32.0-48.0) 11/14/20 23:24 POC ABG pO2 118.0 mmHg (83-108) H 11/14/20 23:24 POC ABG HCO3 22.7 11/14/20 23:24 ABG O2 Saturation 98.5 (0-100) 11/14/20 23:24 PT/INR, D-dimer PT 15.7 Sec. (12.2-14.9) H 11/13/20 Unknown INR 1.27 (0.87-1.13) H 11/13/20 Unknown D-Dimer 4139.61 ng/mlDDU (0-234) H 10/23/20 18:23 Abnormal lab findings: Abnormal Labs 10/23/20 10/23/20 10/23/20 13:32 18:23 18:23 WBC RBC Hgb Hct RDW Seg Neuts % (Manual) Lymphocytes % (Manual) Seg Neutrophils # Man Lymphocytes # (Manual) Monocytes # (Manual) PT INR APTT D-Dimer 4139.61 H Heparin Anti-Xa Level ABG pH POC ABG pCO2 POC ABG pO2 ABG Hemoglobin ABG Oxyhemoglobin ABG Sodium ABG Potassium ABG Chloride ABG Glucose Carboxyhemoglobin Sodium Potassium Chloride 109.1 H Carbon Dioxide BUN Creatinine Glucose POC Glucose Lactic Acid Calcium Ionized Calcium Phosphorus Magnesium Lactate Dehydrogenase 334 H C-Reactive Protein 2.50 H NT-Pro-B Natriuret Pep 5806 H Serum Total Protein Total Protein Albumin Caqtz-9-Nijajqavv Gamma Globulins PEP Interpretation TSH Arterial Blood Glucose Arterial Blood Ionized Calcium Urine WBC (Auto) Crossmatch 10/23/20 10/23/20 10/26/20 18:23 18:23 05:34 WBC RBC Hgb Hct RDW Seg Neuts % (Manual) Lymphocytes % (Manual) Seg Neutrophils # Man Lymphocytes # (Manual) Monocytes # (Manual) PT INR APTT D-Dimer Heparin Anti-Xa Level ABG pH POC ABG pCO2 POC ABG pO2 ABG Hemoglobin ABG Oxyhemoglobin ABG Sodium ABG Potassium ABG Chloride ABG Glucose Carboxyhemoglobin Sodium Potassium Chloride Carbon Dioxide BUN 30 H Creatinine Glucose 120 H POC Glucose Lactic Acid Calcium Ionized Calcium Phosphorus Magnesium Lactate Dehydrogenase C-Reactive Protein NT-Pro-B Natriuret Pep Serum Total Protein Total Protein Albumin Ixbhg-9-Bxalwuguy Gamma Globulins PEP Interpretation TSH 7.100 H 6.540 H Arterial Blood Glucose Arterial Blood Ionized Calcium Urine WBC (Auto) Crossmatch 10/27/20 10/28/20 11/02/20 08:55 05:25 07:17 WBC 15.8 H RBC Hgb Hct RDW Seg Neuts % (Manual) Lymphocytes % (Manual) Seg Neutrophils # Man Lymphocytes # (Manual) Monocytes # (Manual) PT INR APTT D-Dimer Heparin Anti-Xa Level ABG pH POC ABG pCO2 POC ABG pO2 ABG Hemoglobin ABG Oxyhemoglobin ABG Sodium ABG Potassium ABG Chloride ABG Glucose Carboxyhemoglobin Sodium Potassium Chloride Carbon Dioxide BUN 28 H 28 H Creatinine Glucose 124 H 110 H POC Glucose Lactic Acid Calcium 8.2 L Ionized Calcium Phosphorus Magnesium Lactate Dehydrogenase C-Reactive Protein NT-Pro-B Natriuret Pep Serum Total Protein Total Protein Albumin Vvqyr-2-Nyrmgcqmw Gamma Globulins PEP Interpretation TSH Arterial Blood Glucose Arterial Blood Ionized Calcium Urine WBC (Auto) Crossmatch 11/02/20 11/02/20 11/02/20 07:17 15:00 15:06 WBC RBC Hgb 15.7 H Hct 47.5 H D RDW Seg Neuts % (Manual) Lymphocytes % (Manual) Seg Neutrophils # Man Lymphocytes # (Manual) Monocytes # (Manual) PT INR APTT D-Dimer Heparin Anti-Xa Level ABG pH POC ABG pCO2 POC ABG pO2 ABG Hemoglobin ABG Oxyhemoglobin ABG Sodium ABG Potassium ABG Chloride ABG Glucose Carboxyhemoglobin Sodium 136 L Potassium Chloride Carbon Dioxide BUN 33 H Creatinine Glucose 107 H POC Glucose Lactic Acid Calcium 7.9 L Ionized Calcium Phosphorus Magnesium Lactate Dehydrogenase C-Reactive Protein NT-Pro-B Natriuret Pep Serum Total Protein Total Protein Albumin Dojjb-8-Evrtnpwdy Gamma Globulins PEP Interpretation TSH Arterial Blood Glucose Arterial Blood Ionized Calcium Urine WBC (Auto) Crossmatch See Detail 11/02/20 11/02/20 11/02/20 19:55 21:25 22:28 WBC 21.8 H RBC Hgb Hct RDW Seg Neuts % (Manual) Lymphocytes % (Manual) Seg Neutrophils # Man Lymphocytes # (Manual) Monocytes # (Manual) PT 16.2 H INR 1.30 H APTT 106.0 H* D-Dimer Heparin Anti-Xa Level 1.63 H ABG pH POC ABG pCO2 POC ABG pO2 ABG Hemoglobin ABG Oxyhemoglobin ABG Sodium ABG Potassium ABG Chloride ABG Glucose Carboxyhemoglobin Sodium Potassium Chloride Carbon Dioxide BUN Creatinine Glucose POC Glucose Lactic Acid Calcium Ionized Calcium Phosphorus Magnesium Lactate Dehydrogenase C-Reactive Protein NT-Pro-B Natriuret Pep Serum Total Protein Total Protein Albumin Avmpl-7-Oqtoklyen Gamma Globulins PEP Interpretation TSH Arterial Blood Glucose Arterial Blood Ionized Calcium Urine WBC (Auto) Crossmatch 11/03/20 11/03/20 11/03/20 05:47 13:20 13:20 WBC 29.0 H RBC Hgb 10.4 L Hct 31.2 L D RDW Seg Neuts % (Manual) Lymphocytes % (Manual) Seg Neutrophils # Man Lymphocytes # (Manual) Monocytes # (Manual) PT INR APTT D-Dimer Heparin Anti-Xa Level < 0.10 L ABG pH POC ABG pCO2 POC ABG pO2 ABG Hemoglobin ABG Oxyhemoglobin ABG Sodium ABG Potassium ABG Chloride ABG Glucose Carboxyhemoglobin Sodium 134 L Potassium 5.9 H D Chloride Carbon Dioxide 17 L D BUN 47 H Creatinine 2.2 H D Glucose 188 H POC Glucose Lactic Acid Calcium 7.6 L Ionized Calcium Phosphorus Magnesium Lactate Dehydrogenase C-Reactive Protein NT-Pro-B Natriuret Pep Serum Total Protein Total Protein Albumin Yyost-2-Stxwrcgkw Gamma Globulins PEP Interpretation TSH Arterial Blood Glucose Arterial Blood Ionized Calcium Urine WBC (Auto) Crossmatch 11/03/20 11/03/20 11/03/20 13:20 16:11 20:01 WBC RBC Hgb Hct RDW Seg Neuts % (Manual) Lymphocytes % (Manual) Seg Neutrophils # Man Lymphocytes # (Manual) Monocytes # (Manual) PT INR APTT D-Dimer Heparin Anti-Xa Level ABG pH 7.289 L POC ABG pCO2 31.8 L POC ABG pO2 156.7 H 119.6 H ABG Hemoglobin 10.7 L 9.7 L ABG Oxyhemoglobin 98.2 H ABG Sodium 127.7 L 129.5 L ABG Potassium 5.8 H 5.9 H ABG Chloride ABG Glucose 190 H 174 H Carboxyhemoglobin 0.3 L 0.1 L Sodium Potassium Chloride Carbon Dioxide BUN Creatinine Glucose POC Glucose Lactic Acid 7.40 H* Calcium Ionized Calcium Phosphorus Magnesium Lactate Dehydrogenase C-Reactive Protein NT-Pro-B Natriuret Pep Serum Total Protein Total Protein Albumin Iyolf-3-Lgarlzwmx Gamma Globulins PEP Interpretation TSH Arterial Blood Glucose 190 H 174 H Arterial Blood Ionized Calcium 4.3 L 4.3 L Urine WBC (Auto) Crossmatch 11/03/20 11/04/20 11/04/20 21:14 04:00 04:00 WBC 32.8 H RBC Hgb 11.7 L Hct 35.0 L RDW Seg Neuts % (Manual) 82.0 H Lymphocytes % (Manual) 10.0 L Seg Neutrophils # Man 26.9 H Lymphocytes # (Manual) Monocytes # (Manual) 2.3 H PT INR APTT D-Dimer Heparin Anti-Xa Level 0.73 H ABG pH POC ABG pCO2 POC ABG pO2 ABG Hemoglobin ABG Oxyhemoglobin ABG Sodium ABG Potassium ABG Chloride ABG Glucose Carboxyhemoglobin Sodium 133 L Potassium 5.7 H Chloride Carbon Dioxide 20 L BUN 57 H Creatinine 2.3 H Glucose 129 H POC Glucose Lactic Acid Calcium 7.2 L Ionized Calcium Phosphorus Magnesium Lactate Dehydrogenase C-Reactive Protein NT-Pro-B Natriuret Pep Serum Total Protein Total Protein Albumin Qdpuk-1-Fscftfhul Gamma Globulins PEP Interpretation TSH Arterial Blood Glucose Arterial Blood Ionized Calcium Urine WBC (Auto) Crossmatch 11/04/20 11/04/20 11/04/20 07:57 11:00 11:55 WBC RBC Hgb Hct RDW Seg Neuts % (Manual) Lymphocytes % (Manual) Seg Neutrophils # Man Lymphocytes # (Manual) Monocytes # (Manual) PT INR APTT D-Dimer Heparin Anti-Xa Level ABG pH POC ABG pCO2 POC ABG pO2 132.7 H ABG Hemoglobin 11.5 L ABG Oxyhemoglobin ABG Sodium 130.6 L ABG Potassium 5.3 H ABG Chloride ABG Glucose 145 H Carboxyhemoglobin 0.2 L Sodium Potassium Chloride Carbon Dioxide BUN Creatinine Glucose POC Glucose 110 H Lactic Acid Calcium Ionized Calcium Phosphorus Magnesium Lactate Dehydrogenase C-Reactive Protein NT-Pro-B Natriuret Pep Serum Total Protein Total Protein Albumin Wboiw-8-Lyxcldsnl Gamma Globulins PEP Interpretation TSH Arterial Blood Glucose 145 H Arterial Blood Ionized Calcium 4.4 L Urine WBC (Auto) 19.0 H Crossmatch 11/04/20 11/04/20 11/04/20 13:01 13:01 17:40 WBC RBC Hgb Hct RDW Seg Neuts % (Manual) Lymphocytes % (Manual) Seg Neutrophils # Man Lymphocytes # (Manual) Monocytes # (Manual) PT INR APTT D-Dimer Heparin Anti-Xa Level 0.26 L ABG pH POC ABG pCO2 POC ABG pO2 ABG Hemoglobin ABG Oxyhemoglobin ABG Sodium ABG Potassium ABG Chloride ABG Glucose Carboxyhemoglobin Sodium Potassium Chloride Carbon Dioxide BUN Creatinine Glucose POC Glucose 135 H Lactic Acid Calcium Ionized Calcium Phosphorus Magnesium Lactate Dehydrogenase C-Reactive Protein 8.30 H NT-Pro-B Natriuret Pep Serum Total Protein Total Protein Albumin Gfkzn-4-Yqsnmkolk Gamma Globulins PEP Interpretation TSH Arterial Blood Glucose Arterial Blood Ionized Calcium Urine WBC (Auto) Crossmatch 11/04/20 11/04/20 11/05/20 19:55 23:20 00:53 WBC RBC Hgb 9.7 L 9.0 L Hct 28.3 L D 26.0 L RDW Seg Neuts % (Manual) Lymphocytes % (Manual) Seg Neutrophils # Man Lymphocytes # (Manual) Monocytes # (Manual) PT INR APTT D-Dimer Heparin Anti-Xa Level ABG pH POC ABG pCO2 POC ABG pO2 ABG Hemoglobin ABG Oxyhemoglobin ABG Sodium ABG Potassium ABG Chloride ABG Glucose Carboxyhemoglobin Sodium Potassium Chloride Carbon Dioxide BUN Creatinine Glucose POC Glucose 143 H Lactic Acid Calcium Ionized Calcium Phosphorus Magnesium Lactate Dehydrogenase C-Reactive Protein NT-Pro-B Natriuret Pep Serum Total Protein Total Protein Albumin Lfbqa-5-Rkphtcare Gamma Globulins PEP Interpretation TSH Arterial Blood Glucose Arterial Blood Ionized Calcium Urine WBC (Auto) Crossmatch 11/05/20 11/05/20 11/05/20 02:16 03:16 03:37 WBC 33.5 H RBC 3.01 L Hgb 8.8 L Hct 25.6 L RDW Seg Neuts % (Manual) 93.5 H Lymphocytes % (Manual) 3.5 L Seg Neutrophils # Man 31.3 H Lymphocytes # (Manual) Monocytes # (Manual) 1.0 H PT INR APTT D-Dimer Heparin Anti-Xa Level 0.99 H ABG pH POC ABG pCO2 POC ABG pO2 131.3 H ABG Hemoglobin 9.2 L ABG Oxyhemoglobin ABG Sodium 131.6 L ABG Potassium ABG Chloride 110.0 H ABG Glucose 168 H Carboxyhemoglobin 0.3 L Sodium Potassium Chloride Carbon Dioxide BUN Creatinine Glucose POC Glucose Lactic Acid Calcium Ionized Calcium Phosphorus Magnesium Lactate Dehydrogenase C-Reactive Protein NT-Pro-B Natriuret Pep Serum Total Protein Total Protein Albumin Vpopo-5-Taeeqbqwc Gamma Globulins PEP Interpretation TSH Arterial Blood Glucose 168 H Arterial Blood Ionized Calcium 4.4 L Urine WBC (Auto) Crossmatch 11/05/20 11/05/20 11/05/20 03:37 05:19 18:18 WBC RBC Hgb Hct RDW Seg Neuts % (Manual) Lymphocytes % (Manual) Seg Neutrophils # Man Lymphocytes # (Manual) Monocytes # (Manual) PT INR APTT D-Dimer Heparin Anti-Xa Level ABG pH POC ABG pCO2 POC ABG pO2 ABG Hemoglobin ABG Oxyhemoglobin ABG Sodium ABG Potassium ABG Chloride ABG Glucose Carboxyhemoglobin Sodium Potassium Chloride 109.5 H Carbon Dioxide BUN 55 H Creatinine 2.1 H Glucose 157 H POC Glucose 142 H 124 H Lactic Acid Calcium 7.0 L Ionized Calcium Phosphorus Magnesium Lactate Dehydrogenase C-Reactive Protein NT-Pro-B Natriuret Pep Serum Total Protein Total Protein Albumin Suoaf-7-Ncccqlros Gamma Globulins PEP Interpretation TSH Arterial Blood Glucose Arterial Blood Ionized Calcium Urine WBC (Auto) Crossmatch 11/05/20 11/05/20 11/05/20 19:00 21:20 23:30 WBC RBC Hgb Hct RDW Seg Neuts % (Manual) Lymphocytes % (Manual) Seg Neutrophils # Man Lymphocytes # (Manual) Monocytes # (Manual) PT INR APTT 63.8 H* D-Dimer Heparin Anti-Xa Level ABG pH POC ABG pCO2 POC ABG pO2 ABG Hemoglobin ABG Oxyhemoglobin ABG Sodium ABG Potassium ABG Chloride ABG Glucose Carboxyhemoglobin Sodium Potassium Chloride Carbon Dioxide BUN Creatinine Glucose POC Glucose 156 H Lactic Acid Calcium Ionized Calcium Phosphorus Magnesium Lactate Dehydrogenase C-Reactive Protein NT-Pro-B Natriuret Pep Serum Total Protein Total Protein 4.3 L Albumin 2.1 L Xvoxr-9-Klqhiwajg Gamma Globulins PEP Interpretation TSH Arterial Blood Glucose Arterial Blood Ionized Calcium Urine WBC (Auto) Crossmatch 11/06/20 11/06/20 11/06/20 02:54 04:00 04:00 WBC 33.0 H RBC 2.68 L Hgb 7.7 L Hct 23.3 L RDW Seg Neuts % (Manual) 95.0 H Lymphocytes % (Manual) 2.0 L Seg Neutrophils # Man 31.4 H Lymphocytes # (Manual) 0.7 L Monocytes # (Manual) 1.0 H PT INR APTT D-Dimer Heparin Anti-Xa Level ABG pH POC ABG pCO2 POC ABG pO2 116.5 H ABG Hemoglobin 9.7 L ABG Oxyhemoglobin ABG Sodium 134.5 L ABG Potassium 5.0 H ABG Chloride 109.0 H ABG Glucose 165 H Carboxyhemoglobin 0.3 L Sodium Potassium 5.1 H Chloride 108.6 H Carbon Dioxide BUN 62 H Creatinine 2.2 H Glucose 155 H POC Glucose Lactic Acid Calcium 7.3 L Ionized Calcium Phosphorus Magnesium Lactate Dehydrogenase C-Reactive Protein NT-Pro-B Natriuret Pep Serum Total Protein Total Protein Albumin Fiiqq-0-Xbewximkg Gamma Globulins PEP Interpretation TSH Arterial Blood Glucose 165 H Arterial Blood Ionized Calcium 4.5 L Urine WBC (Auto) Crossmatch 11/06/20 11/06/20 11/06/20 05:17 06:00 17:26 WBC RBC Hgb Hct RDW Seg Neuts % (Manual) Lymphocytes % (Manual) Seg Neutrophils # Man Lymphocytes # (Manual) Monocytes # (Manual) PT INR APTT D-Dimer Heparin Anti-Xa Level ABG pH POC ABG pCO2 POC ABG pO2 ABG Hemoglobin ABG Oxyhemoglobin ABG Sodium ABG Potassium ABG Chloride ABG Glucose Carboxyhemoglobin Sodium Potassium Chloride Carbon Dioxide BUN Creatinine Glucose POC Glucose 147 H 132 H Lactic Acid Calcium Ionized Calcium 4.7 L Phosphorus Magnesium Lactate Dehydrogenase C-Reactive Protein NT-Pro-B Natriuret Pep Serum Total Protein Total Protein Albumin Hhsfm-4-Cpcyxvvhz Gamma Globulins PEP Interpretation TSH Arterial Blood Glucose Arterial Blood Ionized Calcium Urine WBC (Auto) Crossmatch 11/06/20 11/07/20 11/07/20 Unknown 04:00 04:00 WBC 28.9 H RBC 2.44 L Hgb 7.1 L Hct 21.2 L RDW 15.4 H Seg Neuts % (Manual) 95.0 H Lymphocytes % (Manual) 3.0 L Seg Neutrophils # Man 27.5 H Lymphocytes # (Manual) 0.9 L Monocytes # (Manual) PT INR APTT D-Dimer Heparin Anti-Xa Level ABG pH POC ABG pCO2 POC ABG pO2 ABG Hemoglobin ABG Oxyhemoglobin ABG Sodium ABG Potassium ABG Chloride ABG Glucose Carboxyhemoglobin Sodium Potassium 5.3 H Chloride 108.2 H Carbon Dioxide BUN 77 H Creatinine 2.4 H Glucose 144 H POC Glucose Lactic Acid Calcium 7.5 L Ionized Calcium Phosphorus Magnesium Lactate Dehydrogenase C-Reactive Protein NT-Pro-B Natriuret Pep Serum Total Protein 4.1 L Total Protein Albumin 2.2 L Dxers-3-Ezxsfhfik 0.5 H Gamma Globulins 0.4 L PEP Interpretation see below H TSH Arterial Blood Glucose Arterial Blood Ionized Calcium Urine WBC (Auto) Crossmatch 11/07/20 11/07/20 11/07/20 04:00 12:06 17:29 WBC RBC Hgb Hct RDW Seg Neuts % (Manual) Lymphocytes % (Manual) Seg Neutrophils # Man Lymphocytes # (Manual) Monocytes # (Manual) PT INR APTT D-Dimer Heparin Anti-Xa Level ABG pH POC ABG pCO2 POC ABG pO2 130.1 H ABG Hemoglobin 7.5 L ABG Oxyhemoglobin ABG Sodium ABG Potassium 5.0 H ABG Chloride 110.0 H ABG Glucose 152 H Carboxyhemoglobin Sodium Potassium Chloride Carbon Dioxide BUN Creatinine Glucose POC Glucose 144 H 117 H Lactic Acid Calcium Ionized Calcium Phosphorus Magnesium Lactate Dehydrogenase C-Reactive Protein NT-Pro-B Natriuret Pep Serum Total Protein Total Protein Albumin Xzkjt-9-Rmetmxnok Gamma Globulins PEP Interpretation TSH Arterial Blood Glucose 152 H Arterial Blood Ionized Calcium Urine WBC (Auto) Crossmatch 11/08/20 11/08/20 11/08/20 03:38 04:39 04:39 WBC 23.1 H RBC 2.37 L Hgb 6.9 L Hct 20.8 L RDW 15.3 H Seg Neuts % (Manual) 95.5 H Lymphocytes % (Manual) 2.5 L Seg Neutrophils # Man 22.1 H Lymphocytes # (Manual) 0.6 L Monocytes # (Manual) PT INR APTT D-Dimer Heparin Anti-Xa Level ABG pH 7.494 H POC ABG pCO2 POC ABG pO2 111.5 H ABG Hemoglobin 6.7 L ABG Oxyhemoglobin ABG Sodium ABG Potassium 4.9 H ABG Chloride 112.0 H ABG Glucose 153 H Carboxyhemoglobin Sodium Potassium 5.1 H Chloride 111.3 H Carbon Dioxide BUN 86 H Creatinine 2.5 H Glucose 142 H POC Glucose Lactic Acid Calcium 7.6 L Ionized Calcium Phosphorus Magnesium Lactate Dehydrogenase C-Reactive Protein NT-Pro-B Natriuret Pep Serum Total Protein Total Protein Albumin Mbjii-7-Gdbsjpljj Gamma Globulins PEP Interpretation TSH Arterial Blood Glucose 153 H Arterial Blood Ionized Calcium 4.5 L Urine WBC (Auto) Crossmatch 11/08/20 11/08/20 11/08/20 11:13 11:15 16:30 WBC RBC Hgb 8.0 L Hct 23.6 L RDW Seg Neuts % (Manual) Lymphocytes % (Manual) Seg Neutrophils # Man Lymphocytes # (Manual) Monocytes # (Manual) PT INR APTT D-Dimer Heparin Anti-Xa Level ABG pH POC ABG pCO2 POC ABG pO2 ABG Hemoglobin ABG Oxyhemoglobin ABG Sodium ABG Potassium ABG Chloride ABG Glucose Carboxyhemoglobin Sodium Potassium Chloride Carbon Dioxide BUN Creatinine Glucose POC Glucose 125 H Lactic Acid Calcium Ionized Calcium Phosphorus Magnesium Lactate Dehydrogenase C-Reactive Protein NT-Pro-B Natriuret Pep Serum Total Protein Total Protein Albumin Rigio-6-Lbrwuaqmd Gamma Globulins PEP Interpretation TSH Arterial Blood Glucose Arterial Blood Ionized Calcium Urine WBC (Auto) Crossmatch See Detail 11/08/20 11/08/20 11/09/20 19:11 22:20 03:21 WBC 19.0 H RBC 2.51 L Hgb 7.5 L Hct 22.2 L RDW 15.3 H Seg Neuts % (Manual) 89.0 H Lymphocytes % (Manual) 6.0 L Seg Neutrophils # Man 16.9 H Lymphocytes # (Manual) 1.1 L Monocytes # (Manual) 1.0 H PT INR APTT D-Dimer Heparin Anti-Xa Level ABG pH POC ABG pCO2 POC ABG pO2 ABG Hemoglobin ABG Oxyhemoglobin ABG Sodium ABG Potassium ABG Chloride ABG Glucose Carboxyhemoglobin Sodium Potassium Chloride Carbon Dioxide BUN Creatinine Glucose POC Glucose 107 H Lactic Acid Calcium Ionized Calcium Phosphorus Magnesium Lactate Dehydrogenase C-Reactive Protein NT-Pro-B Natriuret Pep Serum Total Protein Total Protein 3.8 L Albumin 2.2 L Ucdnl-1-Ezecscvqd Gamma Globulins PEP Interpretation TSH Arterial Blood Glucose Arterial Blood Ionized Calcium Urine WBC (Auto) Crossmatch 11/09/20 11/09/20 11/09/20 03:21 03:21 03:43 WBC RBC Hgb Hct RDW Seg Neuts % (Manual) Lymphocytes % (Manual) Seg Neutrophils # Man Lymphocytes # (Manual) Monocytes # (Manual) PT INR APTT 50.8 H D-Dimer Heparin Anti-Xa Level ABG pH POC ABG pCO2 POC ABG pO2 ABG Hemoglobin ABG Oxyhemoglobin ABG Sodium ABG Potassium ABG Chloride ABG Glucose Carboxyhemoglobin Sodium Potassium Chloride 109.1 H Carbon Dioxide BUN 86 H Creatinine 2.5 H Glucose 140 H POC Glucose 117 H Lactic Acid Calcium 6.9 L Ionized Calcium Phosphorus Magnesium Lactate Dehydrogenase C-Reactive Protein NT-Pro-B Natriuret Pep Serum Total Protein Total Protein Albumin Lxihd-2-Uyawhheqi Gamma Globulins PEP Interpretation TSH Arterial Blood Glucose Arterial Blood Ionized Calcium Urine WBC (Auto) Crossmatch 11/09/20 11/09/20 11/09/20 09:22 17:04 22:08 WBC RBC Hgb Hct RDW Seg Neuts % (Manual) Lymphocytes % (Manual) Seg Neutrophils # Man Lymphocytes # (Manual) Monocytes # (Manual) PT INR APTT D-Dimer Heparin Anti-Xa Level ABG pH POC ABG pCO2 POC ABG pO2 ABG Hemoglobin ABG Oxyhemoglobin ABG Sodium ABG Potassium ABG Chloride ABG Glucose Carboxyhemoglobin Sodium Potassium Chloride Carbon Dioxide BUN Creatinine Glucose POC Glucose 111 H 106 H 112 H Lactic Acid Calcium Ionized Calcium Phosphorus Magnesium Lactate Dehydrogenase C-Reactive Protein NT-Pro-B Natriuret Pep Serum Total Protein Total Protein Albumin Vinaf-4-Iamhhemsr Gamma Globulins PEP Interpretation TSH Arterial Blood Glucose Arterial Blood Ionized Calcium Urine WBC (Auto) Crossmatch 11/10/20 11/10/20 11/10/20 05:30 05:30 11:50 WBC RBC Hgb 6.6 L Hct 19.9 L* RDW Seg Neuts % (Manual) Lymphocytes % (Manual) Seg Neutrophils # Man Lymphocytes # (Manual) Monocytes # (Manual) PT INR APTT D-Dimer Heparin Anti-Xa Level ABG pH POC ABG pCO2 POC ABG pO2 ABG Hemoglobin ABG Oxyhemoglobin ABG Sodium ABG Potassium ABG Chloride ABG Glucose Carboxyhemoglobin Sodium Potassium Chloride 111.3 H Carbon Dioxide BUN 74 H Creatinine 2.3 H Glucose 119 H POC Glucose 108 H Lactic Acid Calcium 7.1 L Ionized Calcium Phosphorus Magnesium 4.40 H Lactate Dehydrogenase C-Reactive Protein NT-Pro-B Natriuret Pep Serum Total Protein Total Protein Albumin Zctzu-8-Bckdrirsd Gamma Globulins PEP Interpretation TSH Arterial Blood Glucose Arterial Blood Ionized Calcium Urine WBC (Auto) Crossmatch 11/10/20 11/10/20 11/10/20 17:50 23:12 23:17 WBC RBC Hgb 9.5 L 9.1 L Hct 28.2 L D 27.5 L RDW Seg Neuts % (Manual) Lymphocytes % (Manual) Seg Neutrophils # Man Lymphocytes # (Manual) Monocytes # (Manual) PT INR APTT D-Dimer Heparin Anti-Xa Level ABG pH POC ABG pCO2 POC ABG pO2 ABG Hemoglobin ABG Oxyhemoglobin ABG Sodium ABG Potassium ABG Chloride ABG Glucose Carboxyhemoglobin Sodium Potassium Chloride Carbon Dioxide BUN Creatinine Glucose POC Glucose 107 H Lactic Acid Calcium Ionized Calcium Phosphorus Magnesium Lactate Dehydrogenase C-Reactive Protein NT-Pro-B Natriuret Pep Serum Total Protein Total Protein Albumin Uwneb-3-Sdzqddnxm Gamma Globulins PEP Interpretation TSH Arterial Blood Glucose Arterial Blood Ionized Calcium Urine WBC (Auto) Crossmatch 11/11/20 11/11/20 11/11/20 05:16 05:30 08:35 WBC 17.4 H RBC 3.17 L Hgb 9.5 L Hct 29.0 L RDW 16.2 H Seg Neuts % (Manual) Lymphocytes % (Manual) Seg Neutrophils # Man Lymphocytes # (Manual) Monocytes # (Manual) PT INR APTT D-Dimer Heparin Anti-Xa Level ABG pH POC ABG pCO2 POC ABG pO2 ABG Hemoglobin ABG Oxyhemoglobin ABG Sodium ABG Potassium ABG Chloride ABG Glucose Carboxyhemoglobin Sodium Potassium Chloride 107.4 H Carbon Dioxide BUN 64 H Creatinine 2.1 H Glucose 148 H POC Glucose 127 H Lactic Acid Calcium 6.7 L Ionized Calcium Phosphorus Magnesium 3.90 H Lactate Dehydrogenase C-Reactive Protein NT-Pro-B Natriuret Pep Serum Total Protein Total Protein Albumin Fujrt-2-Mvaycosxc Gamma Globulins PEP Interpretation TSH Arterial Blood Glucose Arterial Blood Ionized Calcium Urine WBC (Auto) Crossmatch 11/11/20 11/11/20 11/11/20 09:14 10:10 11:45 WBC RBC Hgb 9.2 L Hct 27.2 L RDW Seg Neuts % (Manual) Lymphocytes % (Manual) Seg Neutrophils # Man Lymphocytes # (Manual) Monocytes # (Manual) PT INR APTT D-Dimer Heparin Anti-Xa Level ABG pH POC ABG pCO2 POC ABG pO2 ABG Hemoglobin ABG Oxyhemoglobin ABG Sodium 135.8 L ABG Potassium ABG Chloride 111.0 H ABG Glucose 152 H Carboxyhemoglobin Sodium Potassium Chloride Carbon Dioxide BUN Creatinine Glucose POC Glucose 139 H Lactic Acid Calcium Ionized Calcium Phosphorus Magnesium Lactate Dehydrogenase C-Reactive Protein NT-Pro-B Natriuret Pep Serum Total Protein Total Protein Albumin Mlapv-9-Riqkkegdh Gamma Globulins PEP Interpretation TSH Arterial Blood Glucose 152 H Arterial Blood Ionized Calcium 4.2 L Urine WBC (Auto) Crossmatch 11/11/20 11/11/20 11/11/20 14:41 17:09 21:12 WBC RBC Hgb 8.7 L Hct 25.8 L RDW Seg Neuts % (Manual) Lymphocytes % (Manual) Seg Neutrophils # Man Lymphocytes # (Manual) Monocytes # (Manual) PT INR APTT D-Dimer Heparin Anti-Xa Level ABG pH POC ABG pCO2 POC ABG pO2 ABG Hemoglobin ABG Oxyhemoglobin ABG Sodium ABG Potassium ABG Chloride ABG Glucose Carboxyhemoglobin Sodium Potassium Chloride Carbon Dioxide BUN Creatinine Glucose POC Glucose 110 H 115 H Lactic Acid Calcium Ionized Calcium Phosphorus Magnesium Lactate Dehydrogenase C-Reactive Protein NT-Pro-B Natriuret Pep Serum Total Protein Total Protein Albumin Ydeid-4-Odomyjmpp Gamma Globulins PEP Interpretation TSH Arterial Blood Glucose Arterial Blood Ionized Calcium Urine WBC (Auto) Crossmatch 11/11/20 11/12/20 11/12/20 23:02 03:10 03:38 WBC RBC Hgb Hct RDW Seg Neuts % (Manual) Lymphocytes % (Manual) Seg Neutrophils # Man Lymphocytes # (Manual) Monocytes # (Manual) PT INR APTT D-Dimer Heparin Anti-Xa Level ABG pH POC ABG pCO2 POC ABG pO2 ABG Hemoglobin ABG Oxyhemoglobin ABG Sodium ABG Potassium ABG Chloride ABG Glucose Carboxyhemoglobin Sodium Potassium Chloride 109.8 H Carbon Dioxide BUN 64 H Creatinine 2.0 H Glucose 129 H POC Glucose 109 H 107 H Lactic Acid Calcium 6.7 L Ionized Calcium Phosphorus 2.10 L D Magnesium 3.50 H Lactate Dehydrogenase C-Reactive Protein NT-Pro-B Natriuret Pep Serum Total Protein Total Protein Albumin Vawrj-6-Zkdquqeox Gamma Globulins PEP Interpretation TSH Arterial Blood Glucose Arterial Blood Ionized Calcium Urine WBC (Auto) Crossmatch 11/12/20 11/12/20 11/12/20 03:38 11:44 13:49 WBC 15.2 H RBC 2.70 L Hgb 8.1 L Hct 24.3 L RDW 16.0 H Seg Neuts % (Manual) Lymphocytes % (Manual) Seg Neutrophils # Man Lymphocytes # (Manual) Monocytes # (Manual) PT INR APTT D-Dimer Heparin Anti-Xa Level ABG pH POC ABG pCO2 POC ABG pO2 ABG Hemoglobin 8.6 L ABG Oxyhemoglobin ABG Sodium ABG Potassium ABG Chloride 111.0 H ABG Glucose 135 H Carboxyhemoglobin Sodium Potassium Chloride Carbon Dioxide BUN Creatinine Glucose POC Glucose 114 H Lactic Acid Calcium Ionized Calcium Phosphorus Magnesium Lactate Dehydrogenase C-Reactive Protein NT-Pro-B Natriuret Pep Serum Total Protein Total Protein Albumin Hseoq-1-Mildwjcmh Gamma Globulins PEP Interpretation TSH Arterial Blood Glucose 135 H Arterial Blood Ionized Calcium 4.3 L Urine WBC (Auto) Crossmatch 11/12/20 11/12/20 11/12/20 17:05 17:11 23:16 WBC RBC Hgb Hct RDW Seg Neuts % (Manual) Lymphocytes % (Manual) Seg Neutrophils # Man Lymphocytes # (Manual) Monocytes # (Manual) PT INR APTT D-Dimer Heparin Anti-Xa Level 0.25 L ABG pH POC ABG pCO2 POC ABG pO2 ABG Hemoglobin ABG Oxyhemoglobin ABG Sodium ABG Potassium ABG Chloride ABG Glucose Carboxyhemoglobin Sodium Potassium Chloride Carbon Dioxide BUN Creatinine Glucose POC Glucose 117 H 116 H Lactic Acid Calcium Ionized Calcium Phosphorus Magnesium Lactate Dehydrogenase C-Reactive Protein NT-Pro-B Natriuret Pep Serum Total Protein Total Protein Albumin Ofhan-1-Cczmhyigs Gamma Globulins PEP Interpretation TSH Arterial Blood Glucose Arterial Blood Ionized Calcium Urine WBC (Auto) Crossmatch 11/13/20 11/13/20 11/13/20 05:09 05:30 05:30 WBC RBC Hgb 7.8 L Hct 22.6 L RDW Seg Neuts % (Manual) Lymphocytes % (Manual) Seg Neutrophils # Man Lymphocytes # (Manual) Monocytes # (Manual) PT INR APTT D-Dimer Heparin Anti-Xa Level ABG pH POC ABG pCO2 POC ABG pO2 ABG Hemoglobin ABG Oxyhemoglobin ABG Sodium ABG Potassium ABG Chloride ABG Glucose Carboxyhemoglobin Sodium Potassium Chloride 109.4 H Carbon Dioxide BUN 65 H Creatinine 2.0 H Glucose 137 H POC Glucose 116 H Lactic Acid Calcium 7.0 L Ionized Calcium Phosphorus 1.60 L D Magnesium 3.10 H Lactate Dehydrogenase C-Reactive Protein NT-Pro-B Natriuret Pep Serum Total Protein Total Protein Albumin Otsdy-4-Nxwfxgtyg Gamma Globulins PEP Interpretation TSH Arterial Blood Glucose Arterial Blood Ionized Calcium Urine WBC (Auto) Crossmatch 11/13/20 11/13/20 11/13/20 08:16 12:26 17:33 WBC 12.8 H RBC 2.60 L Hgb 7.6 L Hct 23.0 L RDW 15.8 H Seg Neuts % (Manual) Lymphocytes % (Manual) Seg Neutrophils # Man Lymphocytes # (Manual) Monocytes # (Manual) PT INR APTT D-Dimer Heparin Anti-Xa Level ABG pH POC ABG pCO2 POC ABG pO2 ABG Hemoglobin ABG Oxyhemoglobin ABG Sodium ABG Potassium ABG Chloride ABG Glucose Carboxyhemoglobin Sodium Potassium Chloride Carbon Dioxide BUN Creatinine Glucose POC Glucose 106 H 124 H Lactic Acid Calcium Ionized Calcium Phosphorus Magnesium Lactate Dehydrogenase C-Reactive Protein NT-Pro-B Natriuret Pep Serum Total Protein Total Protein Albumin Qgbkc-9-Ciiwafypf Gamma Globulins PEP Interpretation TSH Arterial Blood Glucose Arterial Blood Ionized Calcium Urine WBC (Auto) Crossmatch 11/13/20 11/13/20 11/13/20 18:31 20:35 20:35 WBC RBC Hgb 7.6 L Hct 22.1 L RDW Seg Neuts % (Manual) Lymphocytes % (Manual) Seg Neutrophils # Man Lymphocytes # (Manual) Monocytes # (Manual) PT INR APTT D-Dimer Heparin Anti-Xa Level 0.12 L ABG pH POC ABG pCO2 POC ABG pO2 ABG Hemoglobin ABG Oxyhemoglobin ABG Sodium ABG Potassium ABG Chloride ABG Glucose Carboxyhemoglobin Sodium Potassium Chloride Carbon Dioxide BUN Creatinine Glucose POC Glucose Lactic Acid Calcium Ionized Calcium Phosphorus Magnesium Lactate Dehydrogenase C-Reactive Protein NT-Pro-B Natriuret Pep Serum Total Protein Total Protein Albumin Smhhn-1-Besehpvuh Gamma Globulins PEP Interpretation TSH Arterial Blood Glucose Arterial Blood Ionized Calcium Urine WBC (Auto) Crossmatch See Detail 11/13/20 11/14/20 11/14/20 Unknown 02:45 04:00 WBC RBC Hgb Hct RDW Seg Neuts % (Manual) Lymphocytes % (Manual) Seg Neutrophils # Man Lymphocytes # (Manual) Monocytes # (Manual) PT 15.7 H INR 1.27 H APTT 60.6 H* D-Dimer Heparin Anti-Xa Level 0.18 L ABG pH POC ABG pCO2 POC ABG pO2 ABG Hemoglobin ABG Oxyhemoglobin ABG Sodium ABG Potassium ABG Chloride ABG Glucose Carboxyhemoglobin Sodium Potassium 3.2 L Chloride 108.0 H Carbon Dioxide BUN 69 H Creatinine 2.2 H Glucose 126 H POC Glucose Lactic Acid Calcium 6.9 L Ionized Calcium Phosphorus Magnesium 2.90 H Lactate Dehydrogenase C-Reactive Protein NT-Pro-B Natriuret Pep Serum Total Protein Total Protein Albumin Hbgxt-6-Wcpmcjpfd Gamma Globulins PEP Interpretation TSH Arterial Blood Glucose Arterial Blood Ionized Calcium Urine WBC (Auto) Crossmatch 11/14/20 11/14/20 11/14/20 04:00 05:26 12:18 WBC RBC 2.34 L Hgb 7.2 L Hct 20.8 L RDW 15.9 H Seg Neuts % (Manual) Lymphocytes % (Manual) Seg Neutrophils # Man Lymphocytes # (Manual) Monocytes # (Manual) PT INR APTT D-Dimer Heparin Anti-Xa Level ABG pH POC ABG pCO2 POC ABG pO2 ABG Hemoglobin ABG Oxyhemoglobin ABG Sodium ABG Potassium ABG Chloride ABG Glucose Carboxyhemoglobin Sodium Potassium Chloride Carbon Dioxide BUN Creatinine Glucose POC Glucose 120 H 129 H Lactic Acid Calcium Ionized Calcium Phosphorus Magnesium Lactate Dehydrogenase C-Reactive Protein NT-Pro-B Natriuret Pep Serum Total Protein Total Protein Albumin Yxwoc-3-Ahgybunnm Gamma Globulins PEP Interpretation TSH Arterial Blood Glucose Arterial Blood Ionized Calcium Urine WBC (Auto) Crossmatch 11/14/20 11/14/20 11/15/20 23:09 23:24 05:16 WBC RBC Hgb Hct RDW Seg Neuts % (Manual) Lymphocytes % (Manual) Seg Neutrophils # Man Lymphocytes # (Manual) Monocytes # (Manual) PT INR APTT D-Dimer Heparin Anti-Xa Level ABG pH 7.453 H POC ABG pCO2 POC ABG pO2 118.0 H ABG Hemoglobin 7.7 L ABG Oxyhemoglobin ABG Sodium ABG Potassium ABG Chloride 111.0 H ABG Glucose 149 H Carboxyhemoglobin Sodium Potassium Chloride Carbon Dioxide BUN Creatinine Glucose POC Glucose 128 H 146 H Lactic Acid Calcium Ionized Calcium Phosphorus Magnesium Lactate Dehydrogenase C-Reactive Protein NT-Pro-B Natriuret Pep Serum Total Protein Total Protein Albumin Wbvdf-3-Yrtjgkfjp Gamma Globulins PEP Interpretation TSH Arterial Blood Glucose 149 H Arterial Blood Ionized Calcium 4.3 L Urine WBC (Auto) Crossmatch 11/15/20 11/15/20 11/15/20 11:48 Unknown Unknown WBC 12.1 H RBC 2.43 L Hgb 7.3 L Hct 21.5 L RDW 16.1 H Seg Neuts % (Manual) Lymphocytes % (Manual) Seg Neutrophils # Man Lymphocytes # (Manual) Monocytes # (Manual) PT INR APTT D-Dimer Heparin Anti-Xa Level ABG pH POC ABG pCO2 POC ABG pO2 ABG Hemoglobin ABG Oxyhemoglobin ABG Sodium ABG Potassium ABG Chloride ABG Glucose Carboxyhemoglobin Sodium Potassium Chloride 108.0 H Carbon Dioxide BUN 80 H Creatinine 2.7 H Glucose 152 H POC Glucose 125 H Lactic Acid Calcium 7.2 L Ionized Calcium Phosphorus Magnesium 2.60 H Lactate Dehydrogenase C-Reactive Protein NT-Pro-B Natriuret Pep Serum Total Protein Total Protein Albumin Blqwf-9-Ohoxbpnes Gamma Globulins PEP Interpretation TSH Arterial Blood Glucose Arterial Blood Ionized Calcium Urine WBC (Auto) Crossmatch Chest x-ray: report reviewed, image reviewed CT scan - chest: report reviewed, image reviewed Additional Studies: CHEST 1 VIEW [id number] 11/15/20 INDICATION / CLINICAL INFORMATION: Respiratory Distress COMPARISON: 11/10/2020 FINDINGS: SUPPORT DEVICES: Nasogastric tube has been removed. Central line is still in place. HEART / MEDIASTINUM: Stable LUNGS / PLEURA: Poor degree of inspiration is seen. Mild congestion is noted. Increasing density is seen in both lung bases which on the right may be partially due to increasing pleural effusion but increasing basilar infiltrate and atelectasis is also seen. No pneumothorax. ADDITIONAL FINDINGS: No significant additional findings. CT angio chest 10/23/20 INDICATION: chest pain dyspnea. TECHNIQUE: All CT scans at this location are performed using CT dose reduction for ALARA by means of automated exposure control. 3 plane MIP and 3-D reconstructions were produced. COMPARISON: None available. FINDINGS: Very small pericardial effusion, with mild cardiomegaly. Mediastinum, alondra and axillae are otherwise negative. Small bilateral pleural effusions, with diffuse interstitial disease, probably interstitial edema. No evidence of pulmonary embolus IMPRESSION: 1. Findings suggest mild congestive failure. 2. Negative for pulmonary embolus. Allied health notes reviewed: nursing
--- NOTE | 2020-11-15 13:52 | Progress Note ---
Assessment and Plan Recommend PRN IV Lasix as BP permits in light of worsening pulmonary vascular congestion. Continue heparin gtt for tx of atrial appendage thrombus. Prognosis remains guarded. Pt seen in conjunction with Dr. Salvador, who agrees with the assessment and plan of care. - Patient Problems (1) Acute CVA (cerebrovascular accident) Current Visit: Yes Status: Acute (2) Thrombus of atrial appendage Current Visit: Yes Status: Acute (3) Limb ischemia Current Visit: Yes Status: Acute (4) Compartment syndrome Current Visit: Yes Status: Acute (5) Mesenteric infarction Current Visit: Yes Status: Acute (6) Anemia Current Visit: Yes Status: Acute (7) Sepsis Current Visit: Yes Status: Acute Qualifiers: Severe sepsis shock status: with septic shock (8) Acute hypoxemic respiratory failure Current Visit: Yes Status: Acute (9) Acute HFrEF (heart failure with reduced ejection fraction) Current Visit: Yes Status: Resolved (10) Cardiomyopathy Current Visit: Yes Status: Chronic Plan to address problem: EF 40-45% on echo this admission (11) STACEY (acute kidney injury) Current Visit: Yes Status: Acute (12) Hypothyroidism Current Visit: Yes Status: Chronic (13) H/O: HTN (hypertension) Current Visit: Yes Status: Chronic Subjective Date of service: 11/15/20 Principal diagnosis: CVA, Atrial Thrombus, Acute Limb Ischemia, Mesenteric Infarct Interval history: Overnight events reviewed. Tachypneic upon assessment this AM. Tele reviewed - SR 70-80s w/PACs and PVCs. Objective Last Vital Signs Temp 98.1 F 11/15/20 12:00 Pulse 64 11/15/20 12:31 Resp 38 H 11/15/20 12:31 BP 114/55 11/15/20 12:31 Pulse Ox 100 11/15/20 12:31 - Physical Examination General: Other (tachypneic) HEENT: Positive: Normocephaly, Mucus Membranes Moist Neck: Positive: neck supple, trachea midline Cardiac: Positive: Reg Rate and Rhythm, S1/S2 Lungs: Positive: Decreased Breath Sounds (anterior bases) Neuro: Positive: Other (unresponsive) Abdomen: Positive: Decreased Bowel Sounds Skin: Negative: Rash Extremities: Present: edema, warm, Other (s/p RLE open thrombectomy with four- quadrant fasciotomy) - Labs and Meds CBC 11/15/20 Range/Units Unknown WBC 12.1 H (4.5-11.0) K/mm3 RBC 2.43 L (3.65-5.03) M/mm3 Hgb 7.3 L (11.8-15.2) gm/dl Hct 21.5 L (35.5-45.6) % Plt Count 205 (140-440) K/mm3 Comprehensive Metabolic Panel 11/15/20 Range/Units Unknown Sodium 141 (137-145) mmol/L Potassium 3.8 (3.6-5.0) mmol/L Chloride 108.0 H (98-107) mmol/L Carbon Dioxide 25 (22-30) mmol/L BUN 80 H (9-20) mg/dL Creatinine 2.7 H (0.8-1.3) mg/dL Glucose 152 H (75-100) mg/dL Calcium 7.2 L (8.4-10.2) mg/dL - Imaging and Cardiology EKG: report reviewed, image reviewed KELLY: report reviewed (11/01/2020 - likely stalk of thrombus in CARIN of heterogenous quality, EF 40-45%, negative bubble study) - Telemetry EKG Rhythm: Sinus Rhythm - EKG Sinus rhythms and dysrhythmias: sinus rhythm AV and intraventricular conduction: left bundle branch block Repolarization changes or abnormalities: nonspecific abnormality, ST segment, and/or T wave - Allied health notes Allied health notes reviewed: nursing
[2020-11-15] MEDS: LORazepam 2 MG/ML VIAL IV PRN (14:56)
[2020-11-15] MEDS ORDERED: FUROSEMIDE 40 MG/4 ML INJ IV ONE (15:17)
--- NOTE | 2020-11-15 15:17 | Progress Note ---
Assessment and Plan 1. Acute kidney injury: Vasomotor STACEY in the setting of shock. Renal US negative for hydro. Monitor renal function. Renal prognosis is guarded. Creatinine level has increased to 2.7 today. Avoid nephrotoxic agents. Meds dosage based on GFR. 2. FEN: Hypokalemia, replete K as needed, monitor. Hyperchloremia, monitor. Diuretics as needed. Monitor lytes and volume status. 3. Severe sepsis with shock: Likely secondary to acute thrombus of the right lower extremity complicated with compartment syndrome +/- UTI. Off pressors. Followed by ID. 4. 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 Seen by Neurology. 5. Acute hypoxemic respiratory failure: S/p extubated. 6. Acute on chronic systolic heart failure: EF 40-45%. Followed by Cards. 7. 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 8. Acute R LE ischemia: S/p thrombectomy. 9. Mild pneumatosis of ascending colon: Bowel ischemia. S/p Ex-lap and small bowel resection 11/08. S/p reexploration of abdomen, appendectomy, small bowel anastamosis 11/10. Followed by General surgery. 10. Normochromic anemia: Monitor. Subjective: Patient was seen and examined at the bedside. Examination: General appearance: well-developed, appears stated age, on BIPAP HEENT: SCOTTY, atraumatic Neck: trachea midline Respiratory: Clear to Auscultation Heart: S1S2, regular, no murmur Abdomen: soft, appears distended, bowel sounds heard, NT Integumentary: R LE dressing noted Neurologic: not responding Ext: bilateral LE and dependent edema noted : Winkler catheter, scrotal edema noted Subjective Date of service: 11/15/20 Principal diagnosis: CVA, Atrial Thrombus, Acute Limb Ischemia, Mesenteric Infarct Objective - Vital Signs Vital signs: Vital Signs - 12hr 11/15/20 11/15/20 11/15/20 03:25 03:30 04:00 Temperature 98.3 F Pulse Rate 74 77 Pulse Rate [ 77 From Monitor] Pulse Rate [ Right Dorsalis Pedis] Pulse Rate [ Right Posterior Tibial] Respiratory 39 H 21 Rate Blood Pressure 119/73 119/73 O2 Sat by Pulse 100 100 Oximetry 11/15/20 11/15/20 11/15/20 04:30 05:00 05:30 Temperature Pulse Rate 77 78 77 Pulse Rate [ From Monitor] Pulse Rate [ Right Dorsalis Pedis] Pulse Rate [ Right Posterior Tibial] Respiratory 24 39 H 32 H Rate Blood Pressure 120/76 120/76 121/70 O2 Sat by Pulse 100 100 100 Oximetry 11/15/20 11/15/20 11/15/20 06:00 06:31 06:57 Temperature Pulse Rate 79 80 78 Pulse Rate [ From Monitor] Pulse Rate [ Right Dorsalis Pedis] Pulse Rate [ Right Posterior Tibial] Respiratory 45 H 46 H Rate Blood Pressure 121/70 125/79 125/79 O2 Sat by Pulse 99 100 Oximetry 11/15/20 11/15/20 11/15/20 07:00 07:30 08:00 Temperature 98.2 F Pulse Rate 78 73 76 Pulse Rate [ 69 From Monitor] Pulse Rate [ 0 L Right Dorsalis Pedis] Pulse Rate [ 65 Right Posterior Tibial] Respiratory 10 L 26 H 15 Rate Blood Pressure 125/79 125/79 125/79 O2 Sat by Pulse 100 99 100 Oximetry 11/15/20 11/15/20 11/15/20 08:30 09:00 09:31 Temperature Pulse Rate 77 74 70 Pulse Rate [ From Monitor] Pulse Rate [ Right Dorsalis Pedis] Pulse Rate [ Right Posterior Tibial] Respiratory 44 H 40 H 35 H Rate Blood Pressure 125/79 111/63 107/70 O2 Sat by Pulse 100 100 100 Oximetry 11/15/20 11/15/20 11/15/20 09:56 10:00 10:31 Temperature Pulse Rate 68 69 Pulse Rate [ From Monitor] Pulse Rate [ Right Dorsalis Pedis] Pulse Rate [ Right Posterior Tibial] Respiratory 35 H 35 H Rate Blood Pressure 113/49 113/49 O2 Sat by Pulse 100 100 100 Oximetry 11/15/20 11/15/20 11/15/20 11:01 11:31 12:00 Temperature 98.1 F Pulse Rate 70 80 79 Pulse Rate [ From Monitor] Pulse Rate [ Right Dorsalis Pedis] Pulse Rate [ Right Posterior Tibial] Respiratory 36 H 38 H 43 H Rate Blood Pressure 113/57 113/49 114/55 O2 Sat by Pulse 100 97 100 Oximetry 11/15/20 11/15/20 11/15/20 12:21 12:24 12:31 Temperature Pulse Rate 86 68 64 Pulse Rate [ From Monitor] Pulse Rate [ Right Dorsalis Pedis] Pulse Rate [ Right Posterior Tibial] Respiratory 39 H 38 H Rate Blood Pressure 114/55 114/55 114/55 O2 Sat by Pulse 99 100 Oximetry 11/15/20 11/15/20 11/15/20 13:00 13:31 14:01 Temperature Pulse Rate 69 72 71 Pulse Rate [ From Monitor] Pulse Rate [ Right Dorsalis Pedis] Pulse Rate [ Right Posterior Tibial] Respiratory 41 H 44 H 42 H Rate Blood Pressure 109/65 109/65 114/73 O2 Sat by Pulse 100 100 100 Oximetry - Lab 11/15/20 Unknown 11/15/20 Unknown Most recent lab results ABG pH 7.453 (7.320-7.450) H 11/14/20 23:24 ABG O2 Saturation 98.5 (0-100) 11/14/20 23:24 Calcium 7.2 mg/dL (8.4-10.2) L 11/15/20 Unknown Phosphorus 2.80 mg/dL (2.5-4.5) 11/15/20 Unknown Magnesium 2.60 mg/dL (1.7-2.3) H 11/15/20 Unknown Urine Creatinine < 4.2 mg/dL (0.1-20.0) 11/04/20 12:50 Urine Sodium 10 mmol/L 11/04/20 12:50 Medications & Allergies - Medications Allergies/Adverse Reactions: Allergies No Known Allergies Allergy (Unverified 10/23/20 12:44) Home Medications: Home Medications Medication Instructions Recorded Confirmed Last Taken Type Levothyroxine Sodium 150 mcg PO DAILY 10/31/20 10/31/20 Unknown History [Levothyroxine] carvediloL [Coreg] 6.25 mg PO BID 10/31/20 10/31/20 Unknown History lisinopriL [Lisinopril] 10 mg PO DAILY 10/31/20 10/31/20 Unknown History Active Medications: Generic Name Dose Route Start Last Admin Trade Name Freq PRN Reason Stop Dose Admin Bisacodyl 10 mg 11/08/20 22:00 11/15/20 11:07 Bisacodyl 10 Mg Rect Supp [place] 10 mg BID ALEX Administration Dextrose 50 ml 11/08/20 08:04 Dextrose 50% In Water (25gm) 50 Ml Syringe IV Q30MIN PRN Hypoglycemia Protocol Glycopyrrolate 0.2 mg 11/13/20 13:00 11/15/20 11:07 Glycopyrrolate 0.4 Mg/2 Ml Inj IV 11/20/20 12:59 0.2 mg BID ALEX Administration Hydromorphone HCl 1 mg 11/11/20 13:35 11/14/20 21:39 Hydromorphone 1 Mg/1 Ml Inj IV 1 mg Q4H PRN Administration Pain , Severe (7-10) Hydrophilic Ointment 1 applic 11/03/20 16:46 Lip Therapy Vaseline TP Q2HR PRN Dry Lips NORepinephrine/NS 8 MG-250 ML 8 mg in 250 mls @ 3.75 mls/hr 11/03/20 18:00 11/11/20 12:20 Norepinephrine/Ns 8 Mg-250 Ml (Double Conc) IV 0 mcg/min TITRATE ALEX 0 mls/hr Titration Protocol 2 MCG/MIN Heparin Sodium/Sodium Chloride 25,000 unit in 500 mls @ 30 mls/hr 11/09/20 13:00 11/15/20 04:00 Heparin/ 0.45% Nacl-25,000 Unit/500 Ml IV 1,100 units/hr TITR ALEX 22 mls/hr Titration Protocol 1,500 UNITS/HR Amino Acids/Electrolytes/Dextrose 1,800 mls @ 75 mls/hr 11/14/20 20:00 11/14/20 20:34 Tpn Adult IV 11/15/20 19:59 75 mls/hr DAILY@[email or web address] [facility] Administration Protocol Fat Emulsion Intravenous 250 mls @ 21 mls/hr 11/15/20 20:00 Intralipid 20% IV 11/16/20 08:00 DAILY@[email or web address] [facility] Amino Acids/Electrolytes/Dextrose 1,800 mls @ 75 mls/hr 11/15/20 20:00 Tpn Adult IV 11/16/20 19:59 DAILY@[email or web address] [facility] Protocol Insulin Human Regular 0 units 11/12/20 12:00 11/15/20 12:22 Insulin Regular, Human 100 Units/1 Ml SUB-Q Not Given Q6HR [facility] Protocol Levothyroxine Sodium 75 mcg 11/09/20 06:00 11/15/20 06:58 Levothyroxine 100 Mcg Inj IV 75 mcg DAILY@0600 ALEX Administration Lorazepam 2 mg 11/15/20 14:45 11/15/20 14:56 Lorazepam 2 Mg/Ml Vial IV 2 mg Q6H PRN Administration Anxiety Metoprolol Tartrate 5 mg 11/12/20 12:00 11/15/20 12:21 Metoprolol Tartrate 5 Mg/5 Ml Inj IV 5 mg Q6HR ALEX Administration Multi-Ingred Cream/Lotion/Oil/Oint 1 applic 11/03/20 16:46 Mineral Oil/Petrolatum, White Ophth Oint 3.5 Gm OU Q4HR PRN Dry Eye(s) Ondansetron HCl 4 mg 10/23/20 20:00 11/07/20 23:09 Ondansetron 4 Mg/2 Ml Inj IV 4 mg Q8H PRN Administration Nausea And Vomiting Pantoprazole Sodium 40 mg 11/07/20 22:00 11/15/20 11:07 Pantoprazole 40 Mg Inj IV 40 mg BID ALEX Administration Scopolamine 1 each 11/16/20 10:00 Scopolamine Transdermal Patch 72 Hr TD Q3D ALEX Sodium Chloride 10 ml 10/23/20 20:00 11/14/20 09:42 Sodium Chloride 0.9% 10 Ml Flush Syringe IV 10 ml PRN PRN Administration LINE FLUSH
--- NOTE | 2020-11-15 16:25 | Progress Note ---
Assessment and Plan 70-year-old male with left atrial appendage thrombus on echocardiogram. Status post right lower extremity embolectomy and fasciotomies with warm well- perfused right foot. Palpable right posterior tibial pulse and palpable left dorsalis pedis pulse. Reviewed wound care notes and agree with wound VAC placement of the right leg. Anticoagulation will need to be converted to oral anticoagulant. Consider Eliquis. Subjective Date of service: 11/15/20 Principal diagnosis: CVA, Atrial Thrombus, Acute Limb Ischemia, Mesenteric Infarct Interval history: Contacted for coolness of the right lower extremity. Patient has palpable right posterior tibial pulse and palpable left dorsalis pedis pulse. Fasciotomies noted without bleeding. Tolerated abdominal surgery. Tachypneic currently. Objective - Constitutional Vitals: Vital Signs - 12hr 11/15/20 11/15/20 11/15/20 04:30 05:00 05:30 Temperature Pulse Rate 77 78 77 Pulse Rate [ From Monitor] Pulse Rate [ Right Dorsalis Pedis] Pulse Rate [ Right Posterior Tibial] Respiratory 24 39 H 32 H Rate Blood Pressure 120/76 120/76 121/70 O2 Sat by Pulse 100 100 100 Oximetry 11/15/20 11/15/20 11/15/20 06:00 06:31 06:57 Temperature Pulse Rate 79 80 78 Pulse Rate [ From Monitor] Pulse Rate [ Right Dorsalis Pedis] Pulse Rate [ Right Posterior Tibial] Respiratory 45 H 46 H Rate Blood Pressure 121/70 125/79 125/79 O2 Sat by Pulse 99 100 Oximetry 11/15/20 11/15/20 11/15/20 07:00 07:30 08:00 Temperature 98.2 F Pulse Rate 78 73 76 Pulse Rate [ 69 From Monitor] Pulse Rate [ 0 L Right Dorsalis Pedis] Pulse Rate [ 65 Right Posterior Tibial] Respiratory 10 L 26 H 15 Rate Blood Pressure 125/79 125/79 125/79 O2 Sat by Pulse 100 99 100 Oximetry 11/15/20 11/15/20 11/15/20 08:30 09:00 09:31 Temperature Pulse Rate 77 74 70 Pulse Rate [ From Monitor] Pulse Rate [ Right Dorsalis Pedis] Pulse Rate [ Right Posterior Tibial] Respiratory 44 H 40 H 35 H Rate Blood Pressure 125/79 111/63 107/70 O2 Sat by Pulse 100 100 100 Oximetry 11/15/20 11/15/20 11/15/20 09:56 10:00 10:31 Temperature Pulse Rate 68 69 Pulse Rate [ From Monitor] Pulse Rate [ Right Dorsalis Pedis] Pulse Rate [ Right Posterior Tibial] Respiratory 35 H 35 H Rate Blood Pressure 113/49 113/49 O2 Sat by Pulse 100 100 100 Oximetry 11/15/20 11/15/20 11/15/20 11:01 11:31 12:00 Temperature 98.1 F Pulse Rate 70 80 80 Pulse Rate [ 77 From Monitor] Pulse Rate [ 0 L Right Dorsalis Pedis] Pulse Rate [ 69 Right Posterior Tibial] Respiratory 36 H 38 H 38 H Rate Blood Pressure 113/57 113/49 114/55 O2 Sat by Pulse 100 97 100 Oximetry 11/15/20 11/15/20 11/15/20 12:21 12:24 12:31 Temperature Pulse Rate 86 68 64 Pulse Rate [ From Monitor] Pulse Rate [ Right Dorsalis Pedis] Pulse Rate [ Right Posterior Tibial] Respiratory 39 H 38 H Rate Blood Pressure 114/55 114/55 114/55 O2 Sat by Pulse 99 100 Oximetry 11/15/20 11/15/20 11/15/20 13:00 13:31 14:01 Temperature Pulse Rate 69 72 71 Pulse Rate [ From Monitor] Pulse Rate [ Right Dorsalis Pedis] Pulse Rate [ Right Posterior Tibial] Respiratory 41 H 44 H 42 H Rate Blood Pressure 109/65 109/65 114/73 O2 Sat by Pulse 100 100 100 Oximetry 11/15/20 11/15/20 15:24 16:00 Temperature 98.1 F Pulse Rate 71 Pulse Rate [ From Monitor] Pulse Rate [ Right Dorsalis Pedis] Pulse Rate [ Right Posterior Tibial] Respiratory 42 H Rate Blood Pressure 111/69 O2 Sat by Pulse 100 Oximetry General appearance: Present: other (Nonresponsive) - Respiratory Respiratory effort: other (Tachypneic) Extremities: abnormal (Fasciotomies of the right lower extremity noted without bleeding. Palpable right posterior tibial pulse and palpable left dorsalis pedis pulse.) - Labs CBC & Chem 7: 11/15/20 Unknown 11/15/20 Unknown Labs: Abnormal lab results 11/14/20 11/14/20 11/15/20 Range/Units 23:09 23:24 05:16 WBC (4.5-11.0) K/mm3 RBC (3.65-5.03) M/mm3 Hgb (11.8-15.2) gm/dl Hct (35.5-45.6) % RDW (13.2-15.2) % ABG pH 7.453 H (7.320-7.450) POC ABG pO2 118.0 H (83-108) mmHg ABG Hemoglobin 7.7 L (12.0-17.5) ABG Chloride 111.0 H (98-107) mmol/L ABG Glucose 149 H (65-95) mg/dL Chloride (98-107) mmol/L BUN (9-20) mg/dL Creatinine (0.8-1.3) mg/dL Glucose (75-100) mg/dL POC Glucose 128 H 146 H (70-105) mg/dL Calcium (8.4-10.2) mg/dL Magnesium (1.7-2.3) mg/dL Arterial Blood Glucose 149 H (65-95) mg/dL Arterial Blood Ionized Calcium 4.3 L (4.6-5.3) mg/dL 11/15/20 11/15/20 11/15/20 Range/Units 11:48 Unknown Unknown WBC 12.1 H (4.5-11.0) K/mm3 RBC 2.43 L (3.65-5.03) M/mm3 Hgb 7.3 L (11.8-15.2) gm/dl Hct 21.5 L (35.5-45.6) % RDW 16.1 H (13.2-15.2) % ABG pH (7.320-7.450) POC ABG pO2 (83-108) mmHg ABG Hemoglobin (12.0-17.5) ABG Chloride (98-107) mmol/L ABG Glucose (65-95) mg/dL Chloride 108.0 H (98-107) mmol/L BUN 80 H (9-20) mg/dL Creatinine 2.7 H (0.8-1.3) mg/dL Glucose 152 H (75-100) mg/dL POC Glucose 125 H (70-105) mg/dL Calcium 7.2 L (8.4-10.2) mg/dL Magnesium 2.60 H (1.7-2.3) mg/dL Arterial Blood Glucose (65-95) mg/dL Arterial Blood Ionized Calcium (4.6-5.3) mg/dL Medications & Allergies - Medications Allergies/Adverse Reactions: Allergies No Known Allergies Allergy (Unverified 10/23/20 12:44) Home Medications: Home Medications Medication Instructions Recorded Confirmed Last Taken Type Levothyroxine Sodium 150 mcg PO DAILY 10/31/20 10/31/20 Unknown History [Levothyroxine] carvediloL [Coreg] 6.25 mg PO BID 10/31/20 10/31/20 Unknown History lisinopriL [Lisinopril] 10 mg PO DAILY 10/31/20 10/31/20 Unknown History Active Medications: Generic Name Dose Route Start Last Admin Trade Name Freq PRN Reason Stop Dose Admin Bisacodyl 10 mg 11/08/20 22:00 11/15/20 11:07 Bisacodyl 10 Mg Rect Supp [place] 10 mg BID ALEX Administration Dextrose 50 ml 11/08/20 08:04 Dextrose 50% In Water (25gm) 50 Ml Syringe IV Q30MIN PRN Hypoglycemia Protocol Glycopyrrolate 0.2 mg 11/13/20 13:00 11/15/20 11:07 Glycopyrrolate 0.4 Mg/2 Ml Inj IV 11/20/20 12:59 0.2 mg BID ALEX Administration Hydromorphone HCl 1 mg 11/11/20 13:35 11/14/20 21:39 Hydromorphone 1 Mg/1 Ml Inj IV 1 mg Q4H PRN Administration Pain , Severe (7-10) Hydrophilic Ointment 1 applic 11/03/20 16:46 Lip Therapy Vaseline TP Q2HR PRN Dry Lips NORepinephrine/NS 8 MG-250 ML 8 mg in 250 mls @ 3.75 mls/hr 11/03/20 18:00 11/11/20 12:20 Norepinephrine/Ns 8 Mg-250 Ml (Double Conc) IV 0 mcg/min TITRATE ALEX 0 mls/hr Titration Protocol 2 MCG/MIN Heparin Sodium/Sodium Chloride 25,000 unit in 500 mls @ 30 mls/hr 11/09/20 13:00 11/15/20 04:00 Heparin/ 0.45% Nacl-25,000 Unit/500 Ml IV 1,100 units/hr TITR ALEX 22 mls/hr Titration Protocol 1,500 UNITS/HR Amino Acids/Electrolytes/Dextrose 1,800 mls @ 75 mls/hr 11/14/20 20:00 11/14/20 20:34 Tpn Adult IV 11/15/20 19:59 75 mls/hr DAILY@[email or web address] [facility] Administration Protocol Fat Emulsion Intravenous 250 mls @ 21 mls/hr 11/15/20 20:00 Intralipid 20% IV 11/16/20 08:00 DAILY@[email or web address] [facility] Amino Acids/Electrolytes/Dextrose 1,800 mls @ 75 mls/hr 11/15/20 20:00 Tpn Adult IV 11/16/20 19:59 DAILY@[email or web address] [facility] Protocol Insulin Human Regular 0 units 11/12/20 12:00 11/15/20 12:22 Insulin Regular, Human 100 Units/1 Ml SUB-Q Not Given Q6HR [facility] Protocol Levothyroxine Sodium 75 mcg 11/09/20 06:00 11/15/20 06:58 Levothyroxine 100 Mcg Inj IV 75 mcg DAILY@0600 [facility] Administration Lorazepam 2 mg 11/15/20 14:45 11/15/20 14:56 Lorazepam 2 Mg/Ml Vial IV 2 mg Q6H PRN Administration Anxiety Metoprolol Tartrate 5 mg 11/12/20 12:00 11/15/20 12:21 Metoprolol Tartrate 5 Mg/5 Ml Inj IV 5 mg Q6HR [facility] Administration Multi-Ingred Cream/Lotion/Oil/Oint 1 applic 11/03/20 16:46 Mineral Oil/Petrolatum, White Ophth Oint 3.5 Gm OU Q4HR PRN Dry Eye(s) Ondansetron HCl 4 mg 10/23/20 20:00 11/07/20 23:09 Ondansetron 4 Mg/2 Ml Inj IV 4 mg Q8H PRN Administration Nausea And Vomiting Pantoprazole Sodium 40 mg 11/07/20 22:00 11/15/20 11:07 Pantoprazole 40 Mg Inj IV 40 mg BID [facility] Administration Scopolamine 1 each 11/16/20 10:00 Scopolamine Transdermal Patch 72 Hr TD Q3D [facility] Sodium Chloride 10 ml 10/23/20 20:00 11/14/20 09:42 Sodium Chloride 0.9% 10 Ml Flush Syringe IV 10 ml PRN PRN Administration LINE FLUSH HEART Score - HEART Score Troponin: Troponin T 0.026 ng/mL (0.00-0.029) 10/23/20 16:39
[2020-11-15] MEDS: HEPARIN/ 0.45% NACL DRIP 25,000 UNIT/500 ML BAG IV SCH (18:18)
[2020-11-15] MEDS ORDERED: TOTAL PARENTERAL NUTRITION 1,800 ML IV SCH (20:00)
[2020-11-15] MEDS ORDERED: FAT EMULSIONS 20% 250 ML IV SCH (20:00)
[2020-11-16] MEDS: METOPROLOL TARTRATE 5 MG/5 ML INJ IV SCH ×5 (00:54→23:49)
[2020-11-16] MEDS: INSULIN REGULAR, HUMAN 100 UNITS/1 ML SUB-Q SCH ×4 (05:22→23:49)
[2020-11-16 06:22] LABS: Hematocrit 22.1 % (35.5-45.6); Hemoglobin 7.3 gm/dl (11.8-15.2); Mean Corpuscular HGB Conc 33 % (32-34); Mean Corpuscular Volume 89 fl (84-94); Platelet Count 233 K/mm3 (140-440); Red Blood Count 2.49 M/mm3 (3.65-5.03); Red Cell Distribution Width 16.4 % (13.2-15.2)
[2020-11-16 06:28] LABS: INR 1.32 (0.87-1.13)
[2020-11-16 06:45] LABS: Albumin 1.7 g/dL (3.9-5); Calcium 7.5 mg/dL (8.4-10.2)
--- NOTE | 2020-11-16 08:23 | Progress Note ---
Assessment and Plan Assessment and plan: This is a 70-year-old male with hypertension and hypothyroidism who presented to the emergency department on 10/23 with confusion, weakness, exercise intolerance, shortness of breath on exertion, increased bedbound status and decreased oral intake with progressively worsened over the past 2 days prior to presentation. Patient was found to have clinical symptoms consistent with a CVA (neurology consulted, stroke pathway initiated) CHF, bilateral pneumonia, and acute hypoxic respiratory failure. Patient was initiated coronavirus, pneumonia and CHF protocol. Cardiology was consulted in the emergency department. 10/24/2020: Acute CVA with right hemiparesis , PT and OT 10/25/2020: Acute CVA with right hemiplegia, Rehab consult requested, Ejection fraction is 35 to 40% 10/26/2020:patient with acute CVA and right-sided hemiparesis, PT evaluated the patient and recommended acute rehab, Case management processing the request, Possible discharge in 1 to 2 days if stable 10/27/2020: patient is clinically stable, awaiting rehab/SNF placement. DC planning per Case management., Neuro recommend KELLY[possible embolic CVA] follow KELLY 10/28/20: patient is doing slightly better. No new complain. Clinically stable, Patient is going for KELLY today., DC planning to rehab/SNF when cleared by neurology., DC planning per case management 10/29/20: patient is doing slightly better. No new complain. Clinically stable, continue physical therapy occupational therapy, Patient is going for KELLY on Sunday, DC planning to rehab/SNF after KELLY on Sunday, DC planning per case management 10/30/20: patient is sitting in chair. No new complain. Clinically stable, continue physical therapy occupational therapy, Patient is going for KELLY on Sunday, Awaiting DC planning to rehab/SNF after KELLY on Sunday. 10/31/20: patient is seen and examined. No new complain. Clinically stable, continue physical therapy occupational therapy., Patient is going for KELLY on Sunday., Awaiting DC planning to rehab/SNF after KELLY on Sunday. 11/01/20: Patient is seen and examined, Patient with acute CVA and right-sided hemiparesis. Patient is evaluated by PT and recommended acute rehab Patient is going for KELLY today, Patient is waiting for DC planning to rehab/SNF after KELLY. [employer] is working on discharge planning. Patient has chosen [facility] and awaiting authorization. 11/02/2020. KELLY revealed left atrial appendage thrombus. Mildly dilated left ventricle with mild left ventricular hypertrophy with moderate global left ventricular hypokinesis with EF of 40 to 45%. Anticoagulation per cardiology re commendations. Physical therapy recommendations for acute rehab. 11/03/2020. Patient appears to have worsening aphasia and worsening right-sided weakness today per neurology. MRI brain stat. Leukocytosis likely leukemoid reaction from compartment syndrome. Patient is s/p right lower extremity t hombectomy with 4 compartment fasciotomy yesterday. Bleeding from incisions over night. Consider ID consultation. Start empiric antibiotics. 11/04/2020. Patient decompensated yesterday evening with hypotension and worsening mental status. Patient was started on vasopressors and intubated. Patient is currently intubated and on fentanyl for sedation. Patient with worsening leukocytosis. Lactic acidosis likely secondary to compartment syndrome. Patient is s/p right lower extremity thombectomy with 4 compartment fasciotomy on 11/02/2020. Levaquin started empirically yesterday. ID consulta tion today. Patient also with worsening creatinine secondary to acute kidney injury. 11/05/2020. Patient attempted to pull out his ETT while I was examining him. Continue restraints for safety. Patient did manage to pull out his Winkler catheter and now has hematuria. We will irrigate the bladder and monitor closely patient is on anticoagulation with IV heparin. Continue Levophed drip to maintain MAP >65. Patient currently with mechanical ventilation AC mode rate of 12, tidal volume 500, FiO2 30% and a PEEP of 6. Continue fentanyl for sedation. Consult hematology hypercoagulable state given the arterial and venous thrombi. 11/06/2020. Hematology ordered argatroban and steroid pulse therapy. Follow work-up to rule out HIT. Follow-up pF4 Ab testing, Hgb electrophoresis, cardiolipin ab. Continue Levophed drip to maintain MAP >65. Patient currently with mechanical ventilation AC mode rate of 12, tidal volume 500, FiO2 30% and a PEEP of 6. Continue fentanyl for sedation. Continue antibiotics of cefepime and vancomycin. Sputum, blood and urine cultures are negative. Continue restraints for safety. 11/07/2020. Continue steroid pulse therapy per hematology recommendations. Argatroban on hold for GI bleeding and hematuria. Follow-up HIT panel and pF4 Ab testing, Hgb electrophoresis, cardiolipin ab. Continue Levophed drip to maintain MAP >65. Patient currently with mechanical ventilation AC mode rate of 12, tidal volume 500, FiO2 30% and a PEEP of 6. Continue fentanyl for sedation. Continue antibiotics of cefepime and vancomycin. Sputum, blood and urine cultures are negative. Continue restraints for safety. 11/08: CT abd/pelvis obtained today is concerning for ischemic bowels, surgery was consulted. This morning patient was on CPAP trial 03/30 at the time my examination patient is on vasopressor support with Levophed and his HIT panel is pending. He was sedated on 1 mcg of fentanyl. Lab work this morning shows leukocytosis, anemia (transfuse 1 unit PRBC), hyperkalemia (received D50 and insulin), hypochloremia and increasing BUN/creatinine. 11/09: S/p ex lap and small bowel resection on 11/08 with surgery, patient was restarted argatroban drip per surgery, HIT panel negative. CCM will start on low-dose heparin drip. Patient was given 2 g of calcium for his K 5 by nephrology. Surgery plans to return to the OR tomorrow for reexploration with possible anastomosis and abdominal closure. At the time of my examination he is sedated on propofol, fentanyl and vasopressor support with Levophed. Patient is on assist control tidal volume 500, rate 18, PEEP of 6, FiO2 25%. 11/10: Patient noted to be anemic today, PRBC transfusion ordered. Patient has 2 units ready for OR, per RN hem/onc is requesting 2 units of PRBC to be transfused. Will obtain post transfusion h/h. Planned for OR today. At the time of my examination he is sedated on propofol, fentanyl and vasopressor support with Levophed. Patient is on assist control tidal volume 500, rate 12, PEEP of 6, FiO2 25%. Pericardial effusion noted as incidental finding with imaging and cardio will conduct a limited echo to quantify amount. 11/11: Patient was taken to the OR for reexploration of abdomen, appendectomy, small bowel anastomosis and surgeon found all viable small and large bowel with well-perfused anastomosis by ICG fluorescence imaging yesterday and a EARNESTINE drain was placed. AM BMP pending, CBC stable. Patient still continues to ooze at fasciotomy site and MLA dressing. RN to change dressings. Sedated with fentanyl and on levophed (RN to attempt to titrate off as tolerated) and on AC TV 500,R12,Peep 6 and 25%FiO2. Remains on heparin gtt. CPAP trial today and LA will be obtained 11/12: Leukocytosis and kidney function tests continue to improve. Patient remains on TPN with NG tube to wall suction. Overnight the patient was agitated and removed NG tube and EARNESTINE drain, NG tube replaced. RN reported patient had a bowel movement late this morning. Patient remains on ventilator support but is on a CPAP trial at time of examination. [facility] plans to extubate today. 11/13: Patient was extubated yesterday. He has hypomagnesemia which was repleted. Patient remains intubated and NG tube to low wall suction. 11/14: Patient has hypokalemia today which has been repleted and his leukocytosis has resolved. Patient remains on a 28% ISR mask with TPN and heparin drip infu sing. Patient remains on cefepime and Flagyl. Patient is able to follow simple commands. 11/15: Brief interval summary: Chest x-ray reviewed shows worsening pleural effusion on the right. Patient with tachypnea questionable secondary to the pleural effusion versus overall medical condition. Abdominal sounds remains difficult to elicit. Tense abdomen, with daniel no bleeding noted but nontender no reaction to the patient facial grimace on palpation. Still with cold lower extremity on the right dressing noted some serosanguineous secretions noted. Given his respiratory status I believe that the patient still needs ICU care rather than IMCU as he is at high risk for reintubation. Will recommend BiPAP as patient is still on heparin drip and will need to discuss with pulmonary radiology about possible thoracentesis consider right-sided pleural effusion Per cardiology evaluation patient will continue conservative therapy continue anticoagulation with heparin drip for presumed left atrial appendage thrombus. Patient continues on TPN at this time still some bowel recovery is noted. We will also reach out to vascular to reevaluate lower extremity pulses. We will check labs in a.m. including LFTs. 11/16: Patient currently on BiPAP due to respiratory distress. Still encephalopathic and appears sedated this could be secondary to Ativan will discontinue at this time and see how patient responds. Vascular input and pulmonary input noted. Continue with wound VAC on the right leg. Will consider changing to oral anticoagulant possible Eliquis per vascular recommendation. At this time the worsening renal function, altered mental status with increased respiratory rate and noted pleural effusion remains a concern WBC is worsening and so is the renal function this could be secondary to Lasix that was given. No fever reported. Will await to see if thoracentesis will be performed and if this will help. Still awaiting Doppler. Sepsis with septic shock Evolving MCA CVA-noted on MRI on 10/23 and 11/03 COVID-19, ruled out #Ischemic limb in setting of arterial thrombus and extensive DVT s/p revascularization sx * (11/02/2020) occlusive arterial thrombus and extensive DVT developed in right lower limb. Vascular surgery performed open revascularization with 4 compartment fasciotomy. 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 Acute hypoxic respiratory failure Acute on chronic systolic heart failure with exacerbation Pneumonia Urinary tract infection Right-sided pleural effusion Acute kidney injury secondary to vasomotor nephropathy Left atrial appendage thrombus Anemia multifactorial s/p 5 units PRBC transfusion Hyperchloremia Hypokalemia Cardiomyopathy Left bundle branch block Hypertension Hypothyroidism DVT/GI prophylaxis: SCDs to bilateral extremities while in bed, Protonix, heparin gtt Disposition: Transfer to [facility] The high probability of a clinically significant, sudden or life threatening deterioration of the [cardiac, respiratory and hemodynamic] system(s) required my full and direct attention, intervention and personal management. The aggregate critical care time was [35] minutes. This time is in addition to time spent performing reported procedures but includes the following: [x] Data Review and interpretation [x] Patient assessment and monitoring of vital signs [x] Documentation [x] Medication orders and management History Interval history: Patient seen and examined this morning per nursing staff patient was agitated last night. Winkler was irrigated for 1500 cc removed this helped improve agitation. Remains sedated opens eyes but not following commands. Remains on BiPAP this morning CCM, cardiology, neurology, vascular surgery, nephrology,general surgery, infectious disease, hematology/oncology, GI, surgery, WOCN, ST/PT/OT consulted, appreciate recommendations -10/23 CT head shows no acute findings, periventricular areas of low attenuation suggestive of nonspecific white matter change, concern for acute ischemic change -10/23 CTA chest shows findings suggestive of mild congestive failure, negative for pulmonary embolism -10/23 CT head with contrast shows no indication of intracranial stenosis or large vessel occlusion -10/23 CTA neck shows no indication of hemodynamically significant stenosis the carotid bifurcations are also clear, right larger than left pleural effusion, remote ACDF at C5-C6 and C6-C7 levels, multifocal neuroforaminal narrowing, mild central canal stenosis evident at C5-C6 level -10/23 bilateral carotid ultrasound shows no significant stenosis -10/23 echocardiogram shows left ventricle moderately dilated, borderline concentric left ventricular hypertrophy, impaired LV relaxation, moderate left ventricular diastolic dysfunction, left ventricular end-diastolic pressure is moderately elevated, no left ventricle thrombus noted in the study, mildly dilated right ventricle, mildly dilated left atrium, saline bubble contrast intravenous injection does not demonstrate PFO, the ventricle systolic function is mild to moderately decreased, LVEF is 35 to 40% with hypokinesis of the septal and inferior wall, moderate to severe hypokinesis in the inferior wall, moderate hypokinesis of the mid inferior septal wall, moderate hypokinesis of the apical septal wall, trace TR, RVSP is 23 mmHg. -10/25 MRI Brain shows acute infarction in the left middle cerebral artery without hemorrhagic conversion -11/02 bilateral lower extremity Doppler ultrasound shows occlusive thrombus in the peroneal vein -11/02 s/p right lower extremity emergent embolectomy with right 4 compartment fasciotomy with vascular surgery -11/03 MRI brain shows interval evolutionary changes of the patchy areas of infarction along the left trigonal region, development of 7 mm focus of acute infarction involving more superior left frontoparietal junction -11/04 abdominal x-ray shows persistent abdominal distention -11/04 renal ultrasound shows findings of medical renal disease without other significant sonographic abnormality -11/05 abdominal x-ray shows increasing bowel distention appears to be predominantly in the colon, moderate/large chronic stool with no free air -11/05 CT head shows decreased attenuation along the superior parietal lobe compatible with evolving infarction without intracranial hemorrhage or other acute abnormality/interval changes -11/07 abdominal x-ray shows abundant fecal material noted throughout the colon and rectal vault consistent with history of constipation which are minimally improved when compared to 11/05, gas-filled and distended bowel loops are similar to prior exam -11/07 CT head shows evolving infarcts involving the left temporoparietal to the left frontoparietal lobes since 11/05 -11/08 abdomen/pelvis CT shows mild diffuse dilation of small bowel loops and proximal colon with evidence of pneumatosis concerning for ischemic bowel, small ascites but no evidence of free air or fluid collection, diffuse ileus also suspected, mild cardiomegaly with trace pericardial effusion, few tiny gallstones in the gallbladder with out abnormal dilation or wall thickening. -11/08 s/p exploratory laparotomy, small bowel resection; intaop findings: 1. Segmental infarcts of distal small intestine with pneumatosis intestinalis present - approximately 30 cm of small bowel resected, 2. SMA with strongly palpable pulse., 3. Large stool burden in left colon -11/10 Limited echocardiogram shows left ventricular systolic function moderately decreased, LVEF 35 to 40%, mild concentric LVH, trace pericardial effusion adjacent to the right ventricle, pulmonary valve is normal in structure, tricuspid valve is normal in structure -11/10 s/p reexploration of abdomen, appendectomy, small bowel anastomosis and surgeon found all viable small and large bowel with well-perfused anastomosis by ICG fluorescence imaging. EARNESTINE drain was placed. -IV antibiotics -Aspirin 325, Lipitor, BB (on hold per surgery as pt is strict NPO) -HIT panel negative -SSI -Continue home Synthroid, converted to IV -Hold antihypertensive regimen in setting of hypotension recent use of vasopressors -Transfuse for hbg <7 -TPN -BiPAP nightly and as needed -Duculox suppository -Trend CBC, BMP Hospitalist Physical - Physical exam Narrative exam: General appearance: Present: Mild distress respiratory 1. Appears sedated on BiPAP - EENT Eyes: Present: PERRL, EOM intact ENT: hearing intact, poor dentition - Neck Neck: Present: normal ROM - Respiratory Respiratory effort: normal Respiratory: bilateral: CTA - Cardiovascular Rhythm: regular Heart Sounds: Present: S1 & S2. Absent: systolic murmur, diastolic murmur - Extremities Extremities: Cool to touch. Of the right lower extremity dressing in place. Unable to palpate pulse on the right side. Positive posterior tibialis Doppler pulse but no DP pulse. Peripheral Pulses: Diminished - Abdominal General gastrointestinal: Surgical daniel intact. No bleeding. Tense hypoactive sounds. - Integumentary Integumentary: Present: warm, dry - Psychiatric Psychiatric: cooperative - Neurologic Neurologic: focal deficits (when awake per nursing follows simple commands with left UE and LE) - Allied Health Allied health notes reviewed: nursing, RT - Constitutional Vitals: Temp Pulse Resp BP Pulse Ox 98.0 F 68 29 H 155/77 100 11/16/20 07:00 11/16/20 07:27 11/16/20 07:27 11/16/20 07:27 11/16/20 07:27 General appearance: Present: no acute distress HEART Score - HEART Score Troponin: Troponin T 0.026 ng/mL (0.00-0.029) 10/23/20 16:39 Results - Labs CBC & Chem 7: 11/16/20 04:40 11/16/20 04:40 Labs: Laboratory Last Values WBC 16.3 K/mm3 (4.5-11.0) H 11/16/20 04:40 RBC 2.49 M/mm3 (3.65-5.03) L 11/16/20 04:40 Hgb 7.3 gm/dl (11.8-15.2) L 11/16/20 04:40 Hct 22.1 % (35.5-45.6) L 11/16/20 04:40 MCV 89 fl (84-94) 11/16/20 04:40 MCH 29 pg (28-32) 11/16/20 04:40 MCHC 33 % (32-34) 11/16/20 04:40 RDW 16.4 % (13.2-15.2) H 11/16/20 04:40 Plt Count 233 K/mm3 (140-440) 11/16/20 04:40 Lymph % (Auto) 27.8 % (13.4-35.0) 10/23/20 13:32 [place] % (Auto) 6.0 % (0.0-7.3) 10/23/20 13:32 Eos % (Auto) 1.6 % (0.0-4.3) 10/23/20 13:32 Baso % (Auto) 0.7 % (0.0-1.8) 10/23/20 13:32 Lymph # (Auto) 1.5 K/mm3 (1.2-5.4) 10/23/20 13:32 [place] # (Auto) 0.3 K/mm3 (0.0-0.8) 10/23/20 13:32 Eos # (Auto) 0.1 K/mm3 (0.0-0.4) 10/23/20 13:32 Baso # (Auto) 0.0 K/mm3 (0.0-0.1) 10/23/20 13:32 Add Manual Diff Complete 11/09/20 03:21 Total Counted 100 11/09/20 03:21 Seg Neutrophils % Wrapping Machine Tender 11/09/20 03:21 Seg Neuts % (Manual) 89.0 % (40.0-70.0) H 11/09/20 03:21 Lymphocytes % (Manual) 6.0 % (13.4-35.0) L 11/09/20 03:21 Monocytes % (Manual) 5.0 % (0.0-7.3) 11/09/20 03:21 Metamyelocytes % 1.0 % 11/04/20 04:00 Nucleated RBC % Not Reportable 11/09/20 03:21 Seg Neutrophils # 3.4 K/mm3 (1.8-7.7) 10/23/20 13:32 Seg Neutrophils # Man 16.9 K/mm3 (1.8-7.7) H 11/09/20 03:21 Band Neutrophils # 0.0 K/mm3 11/09/20 03:21 Lymphocytes # (Manual) 1.1 K/mm3 (1.2-5.4) L 11/09/20 03:21 Abs React Lymphs (Man) 0.0 K/mm3 11/09/20 03:21 Monocytes # (Manual) 1.0 K/mm3 (0.0-0.8) H 11/09/20 03:21 Eosinophils # (Manual) 0.0 K/mm3 (0.0-0.4) 11/09/20 03:21 Basophils # (Manual) 0.0 K/mm3 (0.0-0.1) 11/09/20 03:21 Metamyelocytes # 0.0 K/mm3 11/09/20 03:21 Myelocytes # 0.0 K/mm3 11/09/20 03:21 Promyelocytes # 0.0 K/mm3 11/09/20 03:21 Blast Cells # 0.0 K/mm3 11/09/20 03:21 WBC Morphology Not Reportable 11/09/20 03:21 Hypersegmented Neuts Not Reportable 11/09/20 03:21 Hyposegmented Neuts Not Reportable 11/09/20 03:21 Hypogranular Neuts Not Reportable 11/09/20 03:21 Smudge Cells Not Reportable 11/09/20 03:21 Toxic Granulation Not Reportable 11/09/20 03:21 Toxic Vacuolation Not Reportable 11/09/20 03:21 Dohle Bodies Not Reportable 11/09/20 03:21 Pelger-Huet Anomaly Not Reportable 11/09/20 03:21 Demario Rods Not Reportable 11/09/20 03:21 Platelet Estimate Consistent w auto 11/09/20 03:21 Clumped Platelets Not Reportable 11/09/20 03:21 Plt Clumps, EDTA Not Reportable 11/09/20 03:21 Large Platelets Not Reportable 11/09/20 03:21 Giant Platelets Not Reportable 11/09/20 03:21 Platelet Satelliting Not Reportable 11/09/20 03:21 Plt Morphology Comment Not Reportable 11/09/20 03:21 RBC Morphology Not Reportable 11/09/20 03:21 Dimorphic RBCs Not Reportable 11/09/20 03:21 Polychromasia Not Reportable 11/09/20 03:21 Hypochromasia 1+ 11/09/20 03:21 Poikilocytosis Not Reportable 11/09/20 03:21 Anisocytosis 1+ 11/09/20 03:21 Microcytosis Not Reportable 11/09/20 03:21 Macrocytosis Not Reportable 11/09/20 03:21 Spherocytes Not Reportable 11/09/20 03:21 Pappenheimer Bodies Not Reportable 11/09/20 03:21 Sickle Cells Not Reportable 11/09/20 03:21 Target Cells Not Reportable 11/09/20 03:21 Tear Drop Cells Not Reportable 11/09/20 03:21 Ovalocytes Not Reportable 11/09/20 03:21 Helmet Cells Not Reportable 11/09/20 03:21 [place] Bodies Not Reportable 11/09/20 03:21 [place] Rings Not Reportable 11/09/20 03:21 Caryn Cells Not Reportable 11/09/20 03:21 Bite Cells Not Reportable 11/09/20 03:21 Crenated Cell Not Reportable 11/09/20 03:21 Elliptocytes Not Reportable 11/09/20 03:21 Acanthocytes (Spur) Not Reportable 11/09/20 03:21 Rouleaux Not Reportable 11/09/20 03:21 Hemoglobin C Crystals Not Reportable 11/09/20 03:21 Schistocytes Not Reportable 11/09/20 03:21 Malaria parasites Not Reportable 11/09/20 03:21 Lico Bodies Not Reportable 11/09/20 03:21 Hem Pathologist Commnt No 11/09/20 03:21 PT 16.2 Sec. (12.2-14.9) H 11/16/20 04:40 INR 1.32 (0.87-1.13) H 11/16/20 04:40 APTT 60.6 Sec. (24.2-36.6) H* 11/13/20 Unknown D-Dimer 4139.61 ng/mlDDU (0-234) H 10/23/20 18:23 Heparin Anti-Xa Level 0.24 U.I./ml (0.3-0.7) L 11/16/20 04:40 Heparin Anti-Xa, Unfract Negative (Negative) 11/06/20 Unknown ABG pH 7.453 (7.320-7.450) H 11/14/20 23:24 POC ABG pCO2 33.2 mmHg (32.0-48.0) 11/14/20 23:24 POC ABG pO2 118.0 mmHg (83-108) H 11/14/20 23:24 POC ABG HCO3 22.7 11/14/20 23:24 ABG O2 Saturation 98.5 (0-100) 11/14/20 23:24 POC ABG Base Excess -1.0 11/14/20 23:24 ABG Hemoglobin 7.7 (12.0-17.5) L 11/14/20 23:24 ABG Oxyhemoglobin 97.6 (94-98) 11/14/20 23:24 ABG Methemoglobin 0.3 (0.0-1.5) 11/14/20 23:24 ABG Sodium 137.9 mmol/L (136.0-145.0) 11/14/20 23:24 ABG Potassium 3.6 mmol/L (3.40-4.50) 11/14/20 23:24 ABG Chloride 111.0 mmol/L (98-107) H 11/14/20 23:24 ABG Glucose 149 mg/dL (65-95) H 11/14/20 23:24 Carboxyhemoglobin 0.6 (0.5-1.5) 11/14/20 23:24 FiO2 % 28.0 11/14/20 23:24 Sodium 139 mmol/L (137-145) 11/16/20 04:40 Potassium 3.6 mmol/L (3.6-5.0) 11/16/20 04:40 Chloride 105.5 mmol/L (98-107) 11/16/20 04:40 Carbon Dioxide 21 mmol/L (22-30) L 11/16/20 04:40 Anion Gap 16 mmol/L 11/16/20 04:40 BUN 109 mg/dL (9-20) H 11/16/20 04:40 Creatinine 4.1 mg/dL (0.8-1.3) H D 11/16/20 04:40 Estimated GFR 18 ml/min 11/16/20 04:40 BUN/Creatinine Ratio 27 % 11/16/20 04:40 Glucose 172 mg/dL (75-100) H 11/16/20 04:40 POC Glucose 138 mg/dL (70-105) H 11/15/20 23:22 Lactic Acid 0.90 mmol/L (0.7-2.0) 11/11/20 13:57 Calcium 7.5 mg/dL (8.4-10.2) L 11/16/20 04:40 Ionized Calcium 4.7 mg/dL (4.8-5.6) L 11/06/20 06:00 Phosphorus 2.90 mg/dL (2.5-4.5) 11/16/20 04:40 Magnesium 2.70 mg/dL (1.7-2.3) H 11/16/20 04:40 Ferritin 238.5 ng/mL (30.0-300.0) 10/23/20 18:23 Total Bilirubin 0.20 mg/dL (0.1-1.2) 11/16/20 04:40 Direct Bilirubin < 0.2 mg/dL (0-0.2) 11/08/20 19:11 Indirect Bilirubin 0.3 mg/dL 11/08/20 19:11 AST 41 units/L (5-40) H 11/16/20 04:40 ALT 42 units/L (7-56) 11/16/20 04:40 Alkaline Phosphatase 54 units/L (35-129) 11/16/20 04:40 Lactate Dehydrogenase 334 units/L (91-180) H 10/23/20 18:23 Troponin T 0.026 ng/mL (0.00-0.029) 10/23/20 16:39 C-Reactive Protein 8.30 mg/dL (0.00-1.30) H 11/04/20 13:01 NT-Pro-B Natriuret Pep 5806 pg/mL (0-900) H 10/23/20 13:32 Serum Total Protein 4.1 g/dL (6.1-8.1) L 11/06/20 Unknown Total Protein 4.9 g/dL (6.3-8.2) L 11/16/20 04:40 Albumin 1.7 g/dL (3.9-5) L 11/16/20 04:40 Albumin/Globulin Ratio 0.5 % 11/16/20 04:40 Wrvqr-0-Ulexkhhis 0.5 g/dL (0.2-0.3) H 11/06/20 Unknown Jnxsi-9-Jrgmoqghh 0.7 g/dL (0.5-0.9) 11/06/20 Unknown Beta Globulins 0.2 g/dL (0.2-0.5) 11/06/20 Unknown Gamma Globulins 0.4 g/dL (0.8-1.7) L 11/06/20 Unknown Abnorm Protein Band 1 see below 11/06/20 Unknown PEP Interpretation see below H 11/06/20 Unknown Triglycerides 63 mg/dL (2-149) 11/10/20 05:30 Cholesterol 139 mg/dL (50-199) 10/24/20 09:29 LDL Cholesterol Direct 87 mg/dL (50-130) 10/24/20 09:29 HDL Cholesterol 46 mg/dL (40-59) 10/24/20 09:29 Cholesterol/HDL Ratio 3.02 % 10/24/20 09:29 Serotonin Release Assay See scanned result 11/06/20 Unknown Procalcitonin 0.99 ng/mL (<0.15) 11/03/20 21:14 TSH 6.540 mlU/mL (0.270-4.200) H 10/23/20 18:23 TSH 7.100 mlU/mL (0.270-4.200) H 10/23/20 18:23 Free T4 1.33 ng/dL (0.76-1.46) 10/23/20 18:23 Arterial Blood Glucose 149 mg/dL (65-95) H 11/14/20 23:24 Arterial Blood Ionized Calcium 4.3 mg/dL (4.6-5.3) L 11/14/20 23:24 Urine Color Yellow (Yellow) 11/04/20 11:00 Urine Turbidity Hazy (Clear) 11/04/20 11:00 Urine pH 5.0 (5.0-7.0) 11/04/20 11:00 Ur Specific [place] 1.017 (1.003-1.030) 11/04/20 11:00 Urine Protein 30 mg/dl mg/dL (Negative) 11/04/20 11:00 Urine Glucose (UA) 50 mg/dL (Negative) 11/04/20 11:00 Urine Ketones Neg mg/dL (Negative) 11/04/20 11:00 Urine Blood Neg (Negative) 11/04/20 11:00 Urine Nitrite Neg (Negative) 11/04/20 11:00 Urine Bilirubin Neg (Negative) 11/04/20 11:00 Urine Urobilinogen < 2.0 mg/dL (<2.0) 11/04/20 11:00 Ur Leukocyte Esterase Tr (Negative) 11/04/20 11:00 Urine WBC (Auto) 19.0 /HPF (0.0-6.0) H 11/04/20 11:00 Urine RBC (Auto) 3.0 /HPF (0.0-6.0) 11/04/20 11:00 U Epithel Cells (Auto) < 1.0 /HPF (0-13.0) 11/04/20 11:00 Urine Mucus Few /HPF 11/04/20 11:00 Urine Eosinophils None seen (None Seen) 11/04/20 12:50 Urine Creatinine < 4.2 mg/dL (0.1-20.0) 11/04/20 12:50 Urine Sodium 10 mmol/L 11/04/20 12:50 Random Vancomycin 10.7 ug/mL (0-40.0) 11/08/20 04:39 Heparin-induced Plt Ab Negative (Negative) 11/06/20 Unknown UF Heparin High Dose 0 % Release 11/06/20 Unknown DYLAN UFH Low Dose 0.1 0 % Release 11/06/20 Unknown DYLAN UFH Low Dose 0.5 0 % Release 11/06/20 Unknown Cardiolipid IgG Ab <14 GPL (<=14) 11/06/20 Unknown Cardiolipid IgA Ab <11 APL (<=11) 11/06/20 Unknown Cardiolipid IgM Ab <12 MPL (<=12) 11/06/20 Unknown Coronavirus (PCR) Negative (Negative) 10/24/20 09:57 Blood Type O POSITIVE 11/13/20 20:35 Antibody Screen Negative 11/13/20 20:35 Crossmatch See Detail 11/13/20 20:35 Winkler/IV: Voiding Method Indwelling Catheter Active Medications - Current Medications Current Medications: Generic Name Dose Route Start Last Admin Trade Name Freq PRN Reason Stop Dose Admin Bisacodyl 10 mg 11/08/20 22:00 11/15/20 21:00 Bisacodyl 10 Mg Rect Supp UT 10 mg BID ALEX Administration Dextrose 50 ml 11/08/20 08:04 Dextrose 50% In Water (25gm) 50 Ml Syringe IV Q30MIN PRN Hypoglycemia Protocol Glycopyrrolate 0.2 mg 11/13/20 13:00 11/15/20 21:00 Glycopyrrolate 0.4 Mg/2 Ml Inj IV 11/20/20 12:59 0.2 mg BID ALEX Administration Hydromorphone HCl 1 mg 11/11/20 13:35 11/14/20 21:39 Hydromorphone 1 Mg/1 Ml Inj IV 1 mg Q4H PRN Administration Pain , Severe (7-10) Hydrophilic Ointment 1 applic 11/03/20 16:46 Lip Therapy Vaseline TP Q2HR PRN Dry Lips NORepinephrine/NS 8 MG-250 ML 8 mg in 250 mls @ 3.75 mls/hr 11/03/20 18:00 11/11/20 12:20 Norepinephrine/Ns 8 Mg-250 Ml (Double Conc) IV 0 mcg/min TITRATE ALEX 0 mls/hr Titration Protocol 2 MCG/MIN Heparin Sodium/Sodium Chloride 25,000 unit in 500 mls @ 30 mls/hr 11/09/20 13:00 11/16/20 00:16 Heparin/ 0.45% Nacl-25,000 Unit/500 Ml IV 1,100 units/hr TITR ALEX 22 mls/hr Titration Protocol 1,500 UNITS/HR Amino Acids/Electrolytes/Dextrose 1,800 mls @ 75 mls/hr 11/15/20 20:00 11/15/20 20:31 Tpn Adult IV 11/16/20 19:59 75 mls/hr DAILY@2000 [facility] Administration Protocol Insulin Human Regular 0 units 11/12/20 12:00 11/16/20 05:22 Insulin Regular, Human 100 Units/1 Ml SUB-Q 1 units Q6HR [facility] Administration Protocol Levothyroxine Sodium 75 mcg 11/09/20 06:00 11/15/20 06:58 Levothyroxine 100 Mcg Inj IV 75 mcg DAILY@0600 [facility] Administration Lorazepam 2 mg 11/15/20 14:45 11/15/20 14:56 Lorazepam 2 Mg/Ml Vial IV 2 mg Q6H PRN Administration Anxiety Metoprolol Tartrate 5 mg 11/12/20 12:00 11/16/20 05:11 Metoprolol Tartrate 5 Mg/5 Ml Inj IV 5 mg Q6HR [facility] Administration Multi-Ingred Cream/Lotion/Oil/Oint 1 applic 11/03/20 16:46 Mineral Oil/Petrolatum, White Ophth Oint 3.5 Gm OU Q4HR PRN Dry Eye(s) Ondansetron HCl 4 mg 10/23/20 20:00 11/07/20 23:09 Ondansetron 4 Mg/2 Ml Inj IV 4 mg Q8H PRN Administration Nausea And Vomiting Pantoprazole Sodium 40 mg 11/07/20 22:00 11/15/20 21:00 Pantoprazole 40 Mg Inj IV 40 mg BID [facility] Administration Scopolamine 1 each 11/16/20 10:00 Scopolamine Transdermal Patch 72 Hr TD Q3D [facility] Sodium Chloride 10 ml 10/23/20 20:00 11/15/20 20:33 Sodium Chloride 0.9% 10 Ml Flush Syringe IV 10 ml PRN PRN Administration LINE FLUSH Nutrition/Malnutrition Assess - Dietary Evaluation Nutrition/Malnutrition Findings: Nutrition Notes Start: 10/24/20 11:33 Freq: Status: Active Protocol: Document 11/15/20 13:43 MK (Rec: 11/15/20 13:48 [id number]) Nutrition Notes Initial or Follow up Reassessment Current Diagnosis Acute Kidney Injury,Sepsis, Hypertension,Heart Failure, Respiratory Failure,Stroke Other Pertinent Diagnosis post op ileus Current Diet TPN at 75ml/hr Labs/Tests Mg 2.6 Pertinent Medications Lasix Height 5 ft 11 in Weight 108.5 kg [place] Body Weight (kg) 78.18 BMI 33.3 Weight Status Overweight Subjective/Other Information CPN day 6. Pt had BM over the weekend. Per MD, waiting for tachypnia to resolve to consider starting trickle tube feed. Percent of energy/protein needs met: 79%/100% Burn Absent Trauma Absent GI Symptoms Other Current % PO Negligible Minimum of two criteria No Fluid Accumulation Moderate to Severe (severe) #3 Nutrition Diagnosis Increased nutrient needs ( specify in comment below) Diagnosis Progress(for reassessment Continues documentation) #2 Nutrition Diagnosis Inadequate oral intake Diagnosis Progress(for reassessment Continues documentation) Is patient on ventilator? No Is Patient Ambulatory and/or Out of Bed No REE-([facility]-confined to bed) 2245.968 Kcal/Kg value to use for calculation 18 Approximate Energy Requirements Using 1953 kcal/Kg Calculation Used for Recommendations Kcal/kg Additional Notes Protein: 116-140 g (1.25-1.5 g /kg 93kg adj wt) Fluid: 1 ml/kcal Nutrition Intervention Change Diet Order: Continue CPN Nutrition Support: CPN at 75ml/hr: AA 7.8% Dextrose 16.7% Lipids, MVI. Kcal 2,080 Protein (gm) 140 Carbohydrates (gm) 300 Fat (gm) 50 Fluid (mL) 2,050 Fiber (gm) 0 Goal #1 Meet kcal and protein needs as best as possible via CPN Goal #2 Wound healing Anticipated Discharge Needs: Unable to determine at this time Follow-Up By: 11/16/20 Additional Comments Labs in AM: BMP, Mg, Phos
[2020-11-16] MEDS: LEVOTHYROXINE 100 MCG INJ IV SCH (09:30)
[2020-11-16] MEDS: PANTOPRAZOLE 40 MG INJ IV SCH ×2 (09:34→22:09)
[2020-11-16] MEDS: GLYCOPYRROLATE 0.4 MG/2 ML INJ IV SCH ×2 (09:40→22:09)
[2020-11-16] MEDS ORDERED: SCOPOLAMINE TRANSDERMAL PATCH 72 HR TD SCH (10:00)
--- NOTE | 2020-11-16 10:20 | Progress Note ---
Assessment and Plan 1. Acute kidney injury: Vasomotor STACEY in the setting of shock. Renal US negative for hydro. Monitor renal function. Renal prognosis is guarded. Creatinine level continue to increase. Pt has knutson catheter and UOP is better today. Avoid nephrotoxic agents. Meds dosage based on GFR. Monitor for OBGYN HOSPITALIST PHYSICIAN needs. 2. FEN: Hypokalemia, replete K as needed, monitor. Hyperchloremia, monitor. Diuretics as needed. Monitor lytes and volume status. 3. Severe sepsis with shock: Likely secondary to acute thrombus of the right lower extremity complicated with compartment syndrome +/- UTI. Off pressors. Followed by ID. 4. 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 Seen by Neurology. 5. Acute hypoxemic respiratory failure: S/p extubated. 6. Acute on chronic systolic heart failure: EF 40-45%. Followed by Cards. 7. Left atrial thrombus: Heparin drip. 8. Acute R LE ischemia: S/p thrombectomy. 9. Mild pneumatosis of ascending colon: Bowel ischemia. S/p Ex-lap and small bowel resection 11/08. S/p reexploration of abdomen, appendectomy, small bowel anastamosis 11/10. Followed by General surgery. 10. Normochromic anemia: Monitor. Subjective: Patient was seen and examined at the bedside. Examination: General appearance: well-developed, appears stated age, on BIPAP HEENT: SCOTTY, atraumatic Neck: trachea midline Respiratory: Coarse breath sounds heard Heart: S1S2, regular, no murmur Abdomen: soft, appears distended, bowel sounds heard, NT Integumentary: R LE dressing noted Neurologic: not responding Ext: bilateral LE and dependent edema noted : Knutson catheter, scrotal edema noted Subjective Date of service: 11/16/20 Principal diagnosis: Ac hypoxemic resp failure; CVA; Acute limb ischemia; Acute encephalopathy Objective - Vital Signs Vital signs: Vital Signs - 12hr 11/15/20 11/15/20 11/15/20 22:31 23:00 23:24 Temperature 100.5 F H Pulse Rate 77 76 Pulse Rate [ From Monitor] Pulse Rate [ Right Posterior Tibial] Respiratory 39 H 35 H Rate Blood Pressure 116/71 112/69 O2 Sat by Pulse 100 100 Oximetry 11/15/20 11/15/20 11/15/20 23:28 23:30 23:31 Temperature 97.4 F L Pulse Rate 76 76 Pulse Rate [ 68 From Monitor] Pulse Rate [ 68 Right Posterior Tibial] Respiratory 41 H 44 H Rate Blood Pressure 112/69 O2 Sat by Pulse 100 100 Oximetry 11/15/20 11/16/20 11/16/20 23:56 00:01 00:31 Temperature Pulse Rate 74 74 74 Pulse Rate [ From Monitor] Pulse Rate [ Right Posterior Tibial] Respiratory 37 H 35 H 35 H Rate Blood Pressure 112/69 112/69 119/78 O2 Sat by Pulse 100 100 100 Oximetry 11/16/20 11/16/20 11/16/20 00:54 01:00 01:31 Temperature Pulse Rate 75 65 71 Pulse Rate [ From Monitor] Pulse Rate [ Right Posterior Tibial] Respiratory 33 H 34 H Rate Blood Pressure 119/78 111/64 111/64 O2 Sat by Pulse 100 100 Oximetry 11/16/20 11/16/20 11/16/20 01:55 02:01 02:31 Temperature 97.4 F L Pulse Rate 73 68 Pulse Rate [ From Monitor] Pulse Rate [ Right Posterior Tibial] Respiratory 37 H 32 H Rate Blood Pressure 160/83 160/83 O2 Sat by Pulse 100 100 Oximetry 11/16/20 11/16/20 11/16/20 03:00 03:01 03:10 Temperature 99.2 F Pulse Rate 72 72 Pulse Rate [ From Monitor] Pulse Rate [ Right Posterior Tibial] Respiratory 36 H 40 H Rate Blood Pressure 167/80 163/83 O2 Sat by Pulse 100 100 Oximetry 11/16/20 11/16/20 11/16/20 03:31 04:00 04:25 Temperature Pulse Rate 75 74 74 Pulse Rate [ 68 From Monitor] Pulse Rate [ 68 Right Posterior Tibial] Respiratory 40 H 42 H 31 H Rate Blood Pressure 163/83 167/80 O2 Sat by Pulse 100 100 100 Oximetry 11/16/20 11/16/20 11/16/20 04:31 05:01 05:11 Temperature Pulse Rate 68 69 Pulse Rate [ From Monitor] Pulse Rate [ Right Posterior Tibial] Respiratory 46 H 31 H Rate Blood Pressure 167/80 148/78 148/78 O2 Sat by Pulse 100 100 Oximetry 11/16/20 11/16/20 11/16/20 05:31 05:45 06:00 Temperature Pulse Rate 62 66 Pulse Rate [ 63 From Monitor] Pulse Rate [ 63 Right Posterior Tibial] Respiratory 31 H 30 H 31 H Rate Blood Pressure 148/78 141/73 O2 Sat by Pulse 100 100 100 Oximetry 11/16/20 11/16/20 07:00 07:27 Temperature 98.0 F Pulse Rate 68 Pulse Rate [ From Monitor] Pulse Rate [ Right Posterior Tibial] Respiratory 29 H Rate Blood Pressure 155/77 O2 Sat by Pulse 100 Oximetry - Lab 11/16/20 04:40 11/16/20 04:40 Most recent lab results ABG pH 7.456 (7.320-7.450) H 11/16/20 08:35 ABG O2 Saturation 98.5 (0-100) 11/16/20 08:35 Calcium 7.5 mg/dL (8.4-10.2) L 11/16/20 04:40 Phosphorus 2.90 mg/dL (2.5-4.5) 11/16/20 04:40 Magnesium 2.70 mg/dL (1.7-2.3) H 11/16/20 04:40 Urine Creatinine < 4.2 mg/dL (0.1-20.0) 11/04/20 12:50 Urine Sodium 10 mmol/L 11/04/20 12:50 Medications & Allergies - Medications Allergies/Adverse Reactions: Allergies No Known Allergies Allergy (Unverified 10/23/20 12:44) Home Medications: Home Medications Medication Instructions Recorded Confirmed Last Taken Type Levothyroxine Sodium 150 mcg PO DAILY 10/31/20 10/31/20 Unknown History [Levothyroxine] carvediloL [Coreg] 6.25 mg PO BID 10/31/20 10/31/20 Unknown History lisinopriL [Lisinopril] 10 mg PO DAILY 10/31/20 10/31/20 Unknown History Active Medications: Generic Name Dose Route Start Last Admin Trade Name Freq PRN Reason Stop Dose Admin Bisacodyl 10 mg 11/08/20 22:00 11/16/20 09:33 Bisacodyl 10 Mg Rect Supp [place] 10 mg BID ALEX Administration Dextrose 50 ml 11/08/20 08:04 Dextrose 50% In Water (25gm) 50 Ml Syringe IV Q30MIN PRN Hypoglycemia Protocol Glycopyrrolate 0.2 mg 11/13/20 13:00 11/16/20 09:40 Glycopyrrolate 0.4 Mg/2 Ml Inj IV 11/20/20 12:59 0.2 mg BID ALEX Administration Hydromorphone HCl 1 mg 11/11/20 13:35 11/14/20 21:39 Hydromorphone 1 Mg/1 Ml Inj IV 1 mg Q4H PRN Administration Pain , Severe (7-10) Hydrophilic Ointment 1 applic 11/03/20 16:46 Lip Therapy Vaseline TP Q2HR PRN Dry Lips NORepinephrine/NS 8 MG-250 ML 8 mg in 250 mls @ 3.75 mls/hr 11/03/20 18:00 11/11/20 12:20 Norepinephrine/Ns 8 Mg-250 Ml (Double Conc) IV 0 mcg/min TITRATE ALEX 0 mls/hr Titration Protocol 2 MCG/MIN Heparin Sodium/Sodium Chloride 25,000 unit in 500 mls @ 30 mls/hr 11/09/20 13:00 11/16/20 00:16 Heparin/ 0.45% Nacl-25,000 Unit/500 Ml IV 1,100 units/hr TITR ALEX 22 mls/hr Titration Protocol 1,500 UNITS/HR Amino Acids/Electrolytes/Dextrose 1,800 mls @ 75 mls/hr 11/15/20 20:00 11/15/20 20:31 Tpn Adult IV 11/16/20 19:59 75 mls/hr DAILY@1999 [facility] Administration Protocol Insulin Human Regular 0 units 11/12/20 12:00 11/16/20 05:22 Insulin Regular, Human 100 Units/1 Ml SUB-Q 1 units Q6HR ALEX Administration Protocol Levothyroxine Sodium 75 mcg 11/09/20 06:00 11/15/20 06:58 Levothyroxine 100 Mcg Inj IV 75 mcg DAILY@0600 ALEX Administration Lorazepam 2 mg 11/15/20 14:45 11/15/20 14:56 Lorazepam 2 Mg/Ml Vial IV 2 mg Q6H PRN Administration Anxiety Metoprolol Tartrate 5 mg 11/12/20 12:00 11/16/20 05:11 Metoprolol Tartrate 5 Mg/5 Ml Inj IV 5 mg Q6HR ALEX Administration Multi-Ingred Cream/Lotion/Oil/Oint 1 applic 11/03/20 16:46 Mineral Oil/Petrolatum, White Ophth Oint 3.5 Gm OU Q4HR PRN Dry Eye(s) Ondansetron HCl 4 mg 10/23/20 20:00 11/07/20 23:09 Ondansetron 4 Mg/2 Ml Inj IV 4 mg Q8H PRN Administration Nausea And Vomiting Pantoprazole Sodium 40 mg 11/07/20 22:00 11/16/20 09:34 Pantoprazole 40 Mg Inj IV 40 mg BID ALEX Administration Scopolamine 1 each 11/16/20 10:00 11/16/20 09:34 Scopolamine Transdermal Patch 72 Hr TD 1 each Q3D ALEX Administration Sodium Chloride 10 ml 10/23/20 20:00 11/15/20 20:33 Sodium Chloride 0.9% 10 Ml Flush Syringe IV 10 ml PRN PRN Administration LINE FLUSH
--- NOTE | 2020-11-16 10:26 | Progress Note ---
Assessment and Plan Would defer to Nephro regarding management of volume status given worsening renal indices. Agree with transition to Eliquis as per Vasc. Nothing further to add from a Cardiology perspective at this time. Will see on an as-needed basis. Please call if any questions ([phone]). Pt seen in conjunction with Dr. Salvador, who agrees with the assessment and plan of care. - Patient Problems (1) Acute CVA (cerebrovascular accident) Current Visit: Yes Status: Acute (2) Thrombus of atrial appendage Current Visit: Yes Status: Acute (3) Limb ischemia Current Visit: Yes Status: Acute (4) Compartment syndrome Current Visit: Yes Status: Acute (5) Mesenteric infarction Current Visit: Yes Status: Acute (6) Anemia Current Visit: Yes Status: Acute (7) Sepsis Current Visit: Yes Status: Acute Qualifiers: Severe sepsis shock status: with septic shock (8) Acute hypoxemic respiratory failure Current Visit: Yes Status: Acute (9) Acute HFrEF (heart failure with reduced ejection fraction) Current Visit: Yes Status: Resolved (10) Cardiomyopathy Current Visit: Yes Status: Chronic (11) STACEY (acute kidney injury) Current Visit: Yes Status: Acute (12) Hypothyroidism Current Visit: Yes Status: Chronic (13) H/O: HTN (hypertension) Current Visit: Yes Status: Chronic Subjective Date of service: 11/16/20 Principal diagnosis: CVA, Atrial Thrombus, Acute Limb Ischemia, Mesenteric Infarct Interval history: Overnight events reviewed. Now on BiPAP. Tele reviewed - SR 70s w/PVCs & PACs. Objective Last Vital Signs Temp 98.0 F 11/16/20 07:00 Pulse 75 11/16/20 10:01 Resp 27 H 11/16/20 10:01 BP 147/78 11/16/20 10:01 Pulse Ox 100 11/16/20 10:01 - Physical Examination General: Other (BiPAP) HEENT: Positive: Normocephaly Neck: Positive: neck supple, trachea midline Cardiac: Positive: Reg Rate and Rhythm, S1/S2 Lungs: Positive: Decreased Breath Sounds (anteriorly) Neuro: Positive: Other (unresponsive) Abdomen: Positive: Decreased Bowel Sounds Skin: Negative: Rash Extremities: Present: edema, warm, Other (s/p RLE open thrombectomy with four- quadrant fasciotomy) - Labs and Meds Cardiac Enzymes 11/16/20 Range/Units 04:40 AST 41 H (5-40) units/L Coagulation 11/16/20 Range/Units 04:40 PT 16.2 H (12.2-14.9) Sec. INR 1.32 H (0.87-1.13) CBC 11/16/20 Range/Units 04:40 WBC 16.3 H (4.5-11.0) K/mm3 RBC 2.49 L (3.65-5.03) M/mm3 Hgb 7.3 L (11.8-15.2) gm/dl Hct 22.1 L (35.5-45.6) % Plt Count 233 (140-440) K/mm3 Comprehensive Metabolic Panel 11/16/20 Range/Units 04:40 Sodium 139 (137-145) mmol/L Potassium 3.6 (3.6-5.0) mmol/L Chloride 105.5 (98-107) mmol/L Carbon Dioxide 21 L (22-30) mmol/L BUN 109 H (9-20) mg/dL Creatinine 4.1 H D (0.8-1.3) mg/dL Glucose 172 H (75-100) mg/dL Calcium 7.5 L (8.4-10.2) mg/dL AST 41 H (5-40) units/L ALT 42 (7-56) units/L Alkaline Phosphatase 54 (35-129) units/L Total Protein 4.9 L (6.3-8.2) g/dL Albumin 1.7 L (3.9-5) g/dL - Imaging and Cardiology EKG: report reviewed, image reviewed KELLY: report reviewed (11/01/2020 - likely stalk of thrombus in CARIN of heterogenous quality, EF 40-45%, negative bubble study) - Telemetry EKG Rhythm: Sinus Rhythm - EKG Sinus rhythms and dysrhythmias: sinus rhythm AV and intraventricular conduction: left bundle branch block Repolarization changes or abnormalities: nonspecific abnormality, ST segment, and/or T wave - Allied health notes Allied health notes reviewed: nursing
--- NOTE | 2020-11-16 11:04 | Progress Note ---
Assessment and Plan This is a 70-year-old male with hypertension and hypothyroidism who presented to the emergency department on 10/23 with confusion, weakness, exercise intolerance, shortness of breath on exertion, increased bedbound status and decreased oral i ntake with progressively worsened over the past 2 days prior to presentation. Patient was found to have clinical symptoms consistent with a CVA (neurology consulted, stroke pathway initiated) CHF, bilateral pneumonia, and acute hypoxic respiratory failure. Patient was initiated coronavirus, pneumonia and CHF protocol. Cardiology was consulted in the emergency department. On 11/02/20 patient underwent open thrombectomy of right leg through a common femoral arteriotomy with a 4 and 5 Zoe, right leg 4 compartment fasciotomy On 11/08/20 patient underwent exploratory laparatomy, small bowel resection, placement of ABThera VAC On 11/10/20 patient underwent reexploration of abdomen, appendectomy, small bowel anastamosis. On 11/01/20 patient underwent transesophageal echocardiogram. Reported: thrombus likely in the left atrial appendage, mildly dilated left ventricle with EF of 40-45%. Patient intubated and extubated. Patient presently on BiPAP. /, rate of 20, FiO2 28%. Patient not in acute respiratory distress, however his respiratory rate is high. However, patient's blood pressure and heart rate are within normal range. Patient may be in pain or experiencing anxiety. Recommend to give some anti-anxiety medication and something for pain. Patients ABG's done on 11/14/20 on BiPAP: ABG pH 7.453 POC ABG pCO2 33.2 mmHg POC ABG pO2 118.0 mmHg POC ABG HCO3 22.7 ABG O2 Saturation 98.5 Repeating ABG's in AM Repeat ABGs ABG ABG pH 7.456 (7.320-7.450) H 11/16/20 08:35 POC ABG pCO2 30.4 mmHg (32.0-48.0) L 11/16/20 08:35 POC ABG pO2 115.9 mmHg (83-108) H 11/16/20 08:35 POC ABG HCO3 20.9 11/16/20 08:35 ABG O2 Saturation 98.5 (0-100) 11/16/20 08:35 on above BIPAP settings. Chest x-ray done on 11/15/20 reported Poor degree of inspiration . Mild congestion is noted. Increasing density is seen in both lung bases which on the right may be partially due to increasing pleural effusion but increasing basilar infiltrate and atelectasis is also seen. No pneumothorax. Ultrasound of chest still pending Patient febrile and has leukocytosis. Patient on norepinephrine, IV heparin, protonix. If patient continue spiking fever, consider Antibiotics. I spent critical care time of 40 minutes, reviewing the chart, examining the patient, reviewing the labs and x-rays, talking to the respiratory therapy and nursing staff, talking to Dr. Castorena, and figuring out the plan of treatment. - Patient Problems (1) Acute hypoxemic respiratory failure Current Visit: Yes Status: Acute Plan to address problem: BiPAP. /, rate of 20, FiO2 28%. Patient is solumedrol, IV heparin, protonix. (2) STACEY (acute kidney injury) Current Visit: Yes Status: Acute Plan to address problem: Management as per nephrology. (3) Acute CVA (cerebrovascular accident) Current Visit: Yes Status: Acute Plan to address problem: Management as per neurology. (4) Acute heart failure Current Visit: Yes Status: Acute Plan to address problem: Management as per cardiology. (5) Anemia Current Visit: Yes Status: Acute Plan to address problem: Management as per primary care. (6) Compartment syndrome Current Visit: Yes Status: Acute Plan to address problem: Management as per surgery. (7) Mesenteric embolus Current Visit: Yes Status: Acute Plan to address problem: Patient is on IV heparin. (8) Pneumonia Current Visit: Yes Status: Acute Plan to address problem: Patient was treated with cefepime and metronidazole. (9) Suspected 2019 novel coronavirus infection Current Visit: Yes Status: Acute Plan to address problem: COVID-19 serology reported negative test result. (10) Thrombus of atrial appendage Current Visit: Yes Status: Acute Plan to address problem: Patient is on IV heparin. (11) Cardiomyopathy Current Visit: Yes Status: Chronic Plan to address problem: Management as per cardiology. (12) H/O: HTN (hypertension) Current Visit: Yes Status: Chronic Plan to address problem: Management as per primary care. (13) Hypothyroidism Current Visit: Yes Status: Chronic Plan to address problem: Management as per primary care. (14) Pleural effusion, right Current Visit: Yes Status: Acute Plan to address problem: Obtaining Ultrasound of chest to quantitate pleural effusion. Subjective Date of service: 11/16/20 Principal diagnosis: CVA, Atrial Thrombus, Acute Limb Ischemia, Mesenteric Infarct Interval history: This is a 70-year-old male with hypertension and hypothyroidism who presented to the emergency department on 10/23 with confusion, weakness, exercise intolerance, shortness of breath on exertion, increased bedbound status and decreased oral in take with progressively worsened over the past 2 days prior to presentation. Patient was found to have clinical symptoms consistent with a CVA (neurology consulted, stroke pathway initiated) CHF, bilateral pneumonia, and acute hypoxic respiratory failure. Patient was initiated coronavirus, pneumonia and CHF protocol. Cardiology was consulted in the emergency department. On 11/02/20 patient underwent open thrombectomy of right leg through a common femoral arteriotomy with a 4 and 5 Zoe, right leg 4 compartment fasciotomy On 11/08/20 patient underwent exploratory laparatomy, small bowel resection, placement of ABThera VAC On 11/10/20 patient underwent reexploration of abdomen, appendectomy, small bowel anastamosis. On 11/01/20 patient underwent transesophageal echocardiogram. Reported: thrombus likely in the left atrial appendage, mildly dilated left ventricle with EF of 40-45%. Patient intubated and extubated. Patient presently on BiPAP. /, rate of 20, FiO2 28%. Patient not in acute respiratory distress, however his respiratory rate is high. However, patient's blood pressure and heart rate are within normal range. Patient may be in pain or experiencing anxiety. Recommend to give some anti-anxiety medication and something for pain. Patients ABG's done on 11/14/20 on BiPAP: ABG pH 7.453 POC ABG pCO2 33.2 mmHg POC ABG pO2 118.0 mmHg POC ABG HCO3 22.7 ABG O2 Saturation 98.5 Repeating ABG's in AM Repeat ABGs ABG ABG pH 7.456 (7.320-7.450) H 11/16/20 08:35 POC ABG pCO2 30.4 mmHg (32.0-48.0) L 11/16/20 08:35 POC ABG pO2 115.9 mmHg (83-108) H 11/16/20 08:35 POC ABG HCO3 20.9 11/16/20 08:35 ABG O2 Saturation 98.5 (0-100) 11/16/20 08:35 on above BIPAP settings. Chest x-ray done on 11/15/20 reported Poor degree of inspiration . Mild congestion is noted. Increasing density is seen in both lung bases which on the right may be partially due to increasing pleural effusion but increasing basilar infiltrate and atelectasis is also seen. No pneumothorax. Ultrasound of chest still pending Patient febrile and has leukocytosis. Patient on norepinephrine, IV heparin, protonix. If patient continue spiking fever, consider Antibiotics. Objective Vital Signs - 12hr 11/15/20 11/15/20 11/15/20 23:24 23:28 23:30 Temperature 100.5 F H 97.4 F L Pulse Rate 76 Pulse Rate [ 68 From Monitor] Pulse Rate [ 68 Right Posterior Tibial] Respiratory 41 H Rate Blood Pressure O2 Sat by Pulse 100 Oximetry 11/15/20 11/15/20 11/16/20 23:31 23:56 00:01 Temperature Pulse Rate 76 74 74 Pulse Rate [ From Monitor] Pulse Rate [ Right Posterior Tibial] Respiratory 44 H 37 H 35 H Rate Blood Pressure 112/69 112/69 112/69 O2 Sat by Pulse 100 100 100 Oximetry 11/16/20 11/16/20 11/16/20 00:31 00:54 01:00 Temperature Pulse Rate 74 75 65 Pulse Rate [ From Monitor] Pulse Rate [ Right Posterior Tibial] Respiratory 35 H 33 H Rate Blood Pressure 119/78 119/78 111/64 O2 Sat by Pulse 100 100 Oximetry 11/16/20 11/16/20 11/16/20 01:31 01:55 02:01 Temperature 97.4 F L Pulse Rate 71 73 Pulse Rate [ From Monitor] Pulse Rate [ Right Posterior Tibial] Respiratory 34 H 37 H Rate Blood Pressure 111/64 160/83 O2 Sat by Pulse 100 100 Oximetry 11/16/20 11/16/20 11/16/20 02:31 03:00 03:01 Temperature Pulse Rate 68 72 72 Pulse Rate [ From Monitor] Pulse Rate [ Right Posterior Tibial] Respiratory 32 H 36 H 40 H Rate Blood Pressure 160/83 167/80 163/83 O2 Sat by Pulse 100 100 100 Oximetry 11/16/20 11/16/20 11/16/20 03:10 03:31 04:00 Temperature 99.2 F Pulse Rate 75 74 Pulse Rate [ From Monitor] Pulse Rate [ Right Posterior Tibial] Respiratory 40 H 42 H Rate Blood Pressure 163/83 167/80 O2 Sat by Pulse 100 100 Oximetry 11/16/20 11/16/20 11/16/20 04:25 04:31 05:01 Temperature Pulse Rate 74 68 Pulse Rate [ 68 From Monitor] Pulse Rate [ 68 Right Posterior Tibial] Respiratory 31 H 46 H 31 H Rate Blood Pressure 167/80 148/78 O2 Sat by Pulse 100 100 100 Oximetry 11/16/20 11/16/20 11/16/20 05:11 05:31 05:45 Temperature Pulse Rate 69 62 Pulse Rate [ 63 From Monitor] Pulse Rate [ 63 Right Posterior Tibial] Respiratory 31 H 30 H Rate Blood Pressure 148/78 148/78 O2 Sat by Pulse 100 100 Oximetry 11/16/20 11/16/20 11/16/20 06:00 06:31 07:00 Temperature 98.0 F Pulse Rate 66 65 67 Pulse Rate [ From Monitor] Pulse Rate [ Right Posterior Tibial] Respiratory 31 H 29 H 29 H Rate Blood Pressure 141/73 141/73 155/77 O2 Sat by Pulse 100 100 100 Oximetry 11/16/20 11/16/20 11/16/20 07:27 07:31 08:00 Temperature Pulse Rate 68 68 69 Pulse Rate [ From Monitor] Pulse Rate [ Right Posterior Tibial] Respiratory 29 H 29 H 30 H Rate Blood Pressure 155/77 155/77 149/70 O2 Sat by Pulse 100 100 100 Oximetry 11/16/20 11/16/20 11/16/20 08:31 09:01 09:31 Temperature Pulse Rate 68 72 71 Pulse Rate [ From Monitor] Pulse Rate [ Right Posterior Tibial] Respiratory 27 H 32 H 29 H Rate Blood Pressure 149/70 152/74 149/70 O2 Sat by Pulse 100 100 100 Oximetry 11/16/20 10:01 Temperature Pulse Rate 75 Pulse Rate [ From Monitor] Pulse Rate [ Right Posterior Tibial] Respiratory 27 H Rate Blood Pressure 147/78 O2 Sat by Pulse 100 Oximetry Constitutional: no acute distress, asleep, other (elderly male with mildly increased respiratory effort on BIPAP.) Eyes: non-icteric ENT: oropharynx moist, oropharyngeal exudate pre (less today), other (extubated) Neck: supple, no lymphadenopathy, no JVD Effort: mildly labored Ascultation: Bilateral: diminished breath sounds, rales (R>L base), rhonchi (and referred upper airway sounds) Percussion: Bilateral: not dull Cardiovascular: regular rate and rhythm, murmur noted (COLE) Gastrointestinal: hypoactive bowel sounds, non-tender, other (midline incision in white dressing) Integumentary: normal Extremities: no cyanosis, pink and warm, edema (RLExt), other (RLExt fasciotomy) Neurologic: pupils equal and round, CN II-XII normal, other (Right Hemiparesis) Psychiatric: other (patient is sleepy) CBC and BMP: 11/16/20 04:40 11/16/20 04:40 ABG, PT/INR, D-dimer: ABG ABG pH 7.456 (7.320-7.450) H 11/16/20 08:35 POC ABG pCO2 30.4 mmHg (32.0-48.0) L 11/16/20 08:35 POC ABG pO2 115.9 mmHg (83-108) H 11/16/20 08:35 POC ABG HCO3 20.9 11/16/20 08:35 ABG O2 Saturation 98.5 (0-100) 11/16/20 08:35 PT/INR, D-dimer PT 16.2 Sec. (12.2-14.9) H 11/16/20 04:40 INR 1.32 (0.87-1.13) H 11/16/20 04:40 D-Dimer 4139.61 ng/mlDDU (0-234) H 10/23/20 18:23 Abnormal lab findings: Abnormal Labs 10/23/20 10/23/20 10/23/20 13:32 18:23 18:23 WBC RBC Hgb Hct RDW Seg Neuts % (Manual) Lymphocytes % (Manual) Seg Neutrophils # Man Lymphocytes # (Manual) Monocytes # (Manual) PT INR APTT D-Dimer 4139.61 H Heparin Anti-Xa Level ABG pH POC ABG pCO2 POC ABG pO2 ABG Hemoglobin ABG Oxyhemoglobin ABG Sodium ABG Potassium ABG Chloride ABG Glucose Carboxyhemoglobin Sodium Potassium Chloride 109.1 H Carbon Dioxide BUN Creatinine Glucose POC Glucose Lactic Acid Calcium Ionized Calcium Phosphorus Magnesium AST Lactate Dehydrogenase 334 H C-Reactive Protein 2.50 H NT-Pro-B Natriuret Pep 5806 H Serum Total Protein Total Protein Albumin Vpjyj-1-Eiboxhhut Gamma Globulins PEP Interpretation TSH Arterial Blood Glucose Arterial Blood Ionized Calcium Urine WBC (Auto) Crossmatch 10/23/20 10/23/20 10/26/20 18:23 18:23 05:34 WBC RBC Hgb Hct RDW Seg Neuts % (Manual) Lymphocytes % (Manual) Seg Neutrophils # Man Lymphocytes # (Manual) Monocytes # (Manual) PT INR APTT D-Dimer Heparin Anti-Xa Level ABG pH POC ABG pCO2 POC ABG pO2 ABG Hemoglobin ABG Oxyhemoglobin ABG Sodium ABG Potassium ABG Chloride ABG Glucose Carboxyhemoglobin Sodium Potassium Chloride Carbon Dioxide BUN 30 H Creatinine Glucose 120 H POC Glucose Lactic Acid Calcium Ionized Calcium Phosphorus Magnesium AST Lactate Dehydrogenase C-Reactive Protein NT-Pro-B Natriuret Pep Serum Total Protein Total Protein Albumin Piffa-1-Othdumjdq Gamma Globulins PEP Interpretation TSH 7.100 H 6.540 H Arterial Blood Glucose Arterial Blood Ionized Calcium Urine WBC (Auto) Crossmatch 10/27/20 10/28/20 11/02/20 08:55 05:25 07:17 WBC 15.8 H RBC Hgb Hct RDW Seg Neuts % (Manual) Lymphocytes % (Manual) Seg Neutrophils # Man Lymphocytes # (Manual) Monocytes # (Manual) PT INR APTT D-Dimer Heparin Anti-Xa Level ABG pH POC ABG pCO2 POC ABG pO2 ABG Hemoglobin ABG Oxyhemoglobin ABG Sodium ABG Potassium ABG Chloride ABG Glucose Carboxyhemoglobin Sodium Potassium Chloride Carbon Dioxide BUN 28 H 28 H Creatinine Glucose 124 H 110 H POC Glucose Lactic Acid Calcium 8.2 L Ionized Calcium Phosphorus Magnesium AST Lactate Dehydrogenase C-Reactive Protein NT-Pro-B Natriuret Pep Serum Total Protein Total Protein Albumin Yzofj-5-Rlwypztxk Gamma Globulins PEP Interpretation TSH Arterial Blood Glucose Arterial Blood Ionized Calcium Urine WBC (Auto) Crossmatch 11/02/20 11/02/20 11/02/20 07:17 15:00 15:06 WBC RBC Hgb 15.7 H Hct 47.5 H D RDW Seg Neuts % (Manual) Lymphocytes % (Manual) Seg Neutrophils # Man Lymphocytes # (Manual) Monocytes # (Manual) PT INR APTT D-Dimer Heparin Anti-Xa Level ABG pH POC ABG pCO2 POC ABG pO2 ABG Hemoglobin ABG Oxyhemoglobin ABG Sodium ABG Potassium ABG Chloride ABG Glucose Carboxyhemoglobin Sodium 136 L Potassium Chloride Carbon Dioxide BUN 33 H Creatinine Glucose 107 H POC Glucose Lactic Acid Calcium 7.9 L Ionized Calcium Phosphorus Magnesium AST Lactate Dehydrogenase C-Reactive Protein NT-Pro-B Natriuret Pep Serum Total Protein Total Protein Albumin Ogkqf-5-Zemqxdsdm Gamma Globulins PEP Interpretation TSH Arterial Blood Glucose Arterial Blood Ionized Calcium Urine WBC (Auto) Crossmatch See Detail 11/02/20 11/02/20 11/02/20 19:55 21:25 22:28 WBC 21.8 H RBC Hgb Hct RDW Seg Neuts % (Manual) Lymphocytes % (Manual) Seg Neutrophils # Man Lymphocytes # (Manual) Monocytes # (Manual) PT 16.2 H INR 1.30 H APTT 106.0 H* D-Dimer Heparin Anti-Xa Level 1.63 H ABG pH POC ABG pCO2 POC ABG pO2 ABG Hemoglobin ABG Oxyhemoglobin ABG Sodium ABG Potassium ABG Chloride ABG Glucose Carboxyhemoglobin Sodium Potassium Chloride Carbon Dioxide BUN Creatinine Glucose POC Glucose Lactic Acid Calcium Ionized Calcium Phosphorus Magnesium AST Lactate Dehydrogenase C-Reactive Protein NT-Pro-B Natriuret Pep Serum Total Protein Total Protein Albumin Sdbka-2-Grwzpkvce Gamma Globulins PEP Interpretation TSH Arterial Blood Glucose Arterial Blood Ionized Calcium Urine WBC (Auto) Crossmatch 11/03/20 11/03/20 11/03/20 05:47 13:20 13:20 WBC 29.0 H RBC Hgb 10.4 L Hct 31.2 L D RDW Seg Neuts % (Manual) Lymphocytes % (Manual) Seg Neutrophils # Man Lymphocytes # (Manual) Monocytes # (Manual) PT INR APTT D-Dimer Heparin Anti-Xa Level < 0.10 L ABG pH POC ABG pCO2 POC ABG pO2 ABG Hemoglobin ABG Oxyhemoglobin ABG Sodium ABG Potassium ABG Chloride ABG Glucose Carboxyhemoglobin Sodium 134 L Potassium 5.9 H D Chloride Carbon Dioxide 17 L D BUN 47 H Creatinine 2.2 H D Glucose 188 H POC Glucose Lactic Acid Calcium 7.6 L Ionized Calcium Phosphorus Magnesium AST Lactate Dehydrogenase C-Reactive Protein NT-Pro-B Natriuret Pep Serum Total Protein Total Protein Albumin Jbcih-2-Viimjfrtg Gamma Globulins PEP Interpretation TSH Arterial Blood Glucose Arterial Blood Ionized Calcium Urine WBC (Auto) Crossmatch 11/03/20 11/03/20 11/03/20 13:20 16:11 20:01 WBC RBC Hgb Hct RDW Seg Neuts % (Manual) Lymphocytes % (Manual) Seg Neutrophils # Man Lymphocytes # (Manual) Monocytes # (Manual) PT INR APTT D-Dimer Heparin Anti-Xa Level ABG pH 7.289 L POC ABG pCO2 31.8 L POC ABG pO2 156.7 H 119.6 H ABG Hemoglobin 10.7 L 9.7 L ABG Oxyhemoglobin 98.2 H ABG Sodium 127.7 L 129.5 L ABG Potassium 5.8 H 5.9 H ABG Chloride ABG Glucose 190 H 174 H Carboxyhemoglobin 0.3 L 0.1 L Sodium Potassium Chloride Carbon Dioxide BUN Creatinine Glucose POC Glucose Lactic Acid 7.40 H* Calcium Ionized Calcium Phosphorus Magnesium AST Lactate Dehydrogenase C-Reactive Protein NT-Pro-B Natriuret Pep Serum Total Protein Total Protein Albumin Rzsck-3-Vebsntloh Gamma Globulins PEP Interpretation TSH Arterial Blood Glucose 190 H 174 H Arterial Blood Ionized Calcium 4.3 L 4.3 L Urine WBC (Auto) Crossmatch 11/03/20 11/04/20 11/04/20 21:14 04:00 04:00 WBC 32.8 H RBC Hgb 11.7 L Hct 35.0 L RDW Seg Neuts % (Manual) 82.0 H Lymphocytes % (Manual) 10.0 L Seg Neutrophils # Man 26.9 H Lymphocytes # (Manual) Monocytes # (Manual) 2.3 H PT INR APTT D-Dimer Heparin Anti-Xa Level 0.73 H ABG pH POC ABG pCO2 POC ABG pO2 ABG Hemoglobin ABG Oxyhemoglobin ABG Sodium ABG Potassium ABG Chloride ABG Glucose Carboxyhemoglobin Sodium 133 L Potassium 5.7 H Chloride Carbon Dioxide 20 L BUN 57 H Creatinine 2.3 H Glucose 129 H POC Glucose Lactic Acid Calcium 7.2 L Ionized Calcium Phosphorus Magnesium AST Lactate Dehydrogenase C-Reactive Protein NT-Pro-B Natriuret Pep Serum Total Protein Total Protein Albumin Zbxoo-0-Jhchwamxl Gamma Globulins PEP Interpretation TSH Arterial Blood Glucose Arterial Blood Ionized Calcium Urine WBC (Auto) Crossmatch 11/04/20 11/04/20 11/04/20 07:57 11:00 11:55 WBC RBC Hgb Hct RDW Seg Neuts % (Manual) Lymphocytes % (Manual) Seg Neutrophils # Man Lymphocytes # (Manual) Monocytes # (Manual) PT INR APTT D-Dimer Heparin Anti-Xa Level ABG pH POC ABG pCO2 POC ABG pO2 132.7 H ABG Hemoglobin 11.5 L ABG Oxyhemoglobin ABG Sodium 130.6 L ABG Potassium 5.3 H ABG Chloride ABG Glucose 145 H Carboxyhemoglobin 0.2 L Sodium Potassium Chloride Carbon Dioxide BUN Creatinine Glucose POC Glucose 110 H Lactic Acid Calcium Ionized Calcium Phosphorus Magnesium AST Lactate Dehydrogenase C-Reactive Protein NT-Pro-B Natriuret Pep Serum Total Protein Total Protein Albumin Taqvw-0-Xqhmrplif Gamma Globulins PEP Interpretation TSH Arterial Blood Glucose 145 H Arterial Blood Ionized Calcium 4.4 L Urine WBC (Auto) 19.0 H Crossmatch 11/04/20 11/04/20 11/04/20 13:01 13:01 17:40 WBC RBC Hgb Hct RDW Seg Neuts % (Manual) Lymphocytes % (Manual) Seg Neutrophils # Man Lymphocytes # (Manual) Monocytes # (Manual) PT INR APTT D-Dimer Heparin Anti-Xa Level 0.26 L ABG pH POC ABG pCO2 POC ABG pO2 ABG Hemoglobin ABG Oxyhemoglobin ABG Sodium ABG Potassium ABG Chloride ABG Glucose Carboxyhemoglobin Sodium Potassium Chloride Carbon Dioxide BUN Creatinine Glucose POC Glucose 135 H Lactic Acid Calcium Ionized Calcium Phosphorus Magnesium AST Lactate Dehydrogenase C-Reactive Protein 8.30 H NT-Pro-B Natriuret Pep Serum Total Protein Total Protein Albumin Dmdjq-3-Omaqcjmvp Gamma Globulins PEP Interpretation TSH Arterial Blood Glucose Arterial Blood Ionized Calcium Urine WBC (Auto) Crossmatch 11/04/20 11/04/20 11/05/20 19:55 23:20 00:53 WBC RBC Hgb 9.7 L 9.0 L Hct 28.3 L D 26.0 L RDW Seg Neuts % (Manual) Lymphocytes % (Manual) Seg Neutrophils # Man Lymphocytes # (Manual) Monocytes # (Manual) PT INR APTT D-Dimer Heparin Anti-Xa Level ABG pH POC ABG pCO2 POC ABG pO2 ABG Hemoglobin ABG Oxyhemoglobin ABG Sodium ABG Potassium ABG Chloride ABG Glucose Carboxyhemoglobin Sodium Potassium Chloride Carbon Dioxide BUN Creatinine Glucose POC Glucose 143 H Lactic Acid Calcium Ionized Calcium Phosphorus Magnesium AST Lactate Dehydrogenase C-Reactive Protein NT-Pro-B Natriuret Pep Serum Total Protein Total Protein Albumin Bslxl-7-Ccgjgyxpm Gamma Globulins PEP Interpretation TSH Arterial Blood Glucose Arterial Blood Ionized Calcium Urine WBC (Auto) Crossmatch 11/05/20 11/05/20 11/05/20 02:16 03:16 03:37 WBC 33.5 H RBC 3.01 L Hgb 8.8 L Hct 25.6 L RDW Seg Neuts % (Manual) 93.5 H Lymphocytes % (Manual) 3.5 L Seg Neutrophils # Man 31.3 H Lymphocytes # (Manual) Monocytes # (Manual) 1.0 H PT INR APTT D-Dimer Heparin Anti-Xa Level 0.99 H ABG pH POC ABG pCO2 POC ABG pO2 131.3 H ABG Hemoglobin 9.2 L ABG Oxyhemoglobin ABG Sodium 131.6 L ABG Potassium ABG Chloride 110.0 H ABG Glucose 168 H Carboxyhemoglobin 0.3 L Sodium Potassium Chloride Carbon Dioxide BUN Creatinine Glucose POC Glucose Lactic Acid Calcium Ionized Calcium Phosphorus Magnesium AST Lactate Dehydrogenase C-Reactive Protein NT-Pro-B Natriuret Pep Serum Total Protein Total Protein Albumin Uwxwf-5-Mvtbdyrdv Gamma Globulins PEP Interpretation TSH Arterial Blood Glucose 168 H Arterial Blood Ionized Calcium 4.4 L Urine WBC (Auto) Crossmatch 11/05/20 11/05/20 11/05/20 03:37 05:19 18:18 WBC RBC Hgb Hct RDW Seg Neuts % (Manual) Lymphocytes % (Manual) Seg Neutrophils # Man Lymphocytes # (Manual) Monocytes # (Manual) PT INR APTT D-Dimer Heparin Anti-Xa Level ABG pH POC ABG pCO2 POC ABG pO2 ABG Hemoglobin ABG Oxyhemoglobin ABG Sodium ABG Potassium ABG Chloride ABG Glucose Carboxyhemoglobin Sodium Potassium Chloride 109.5 H Carbon Dioxide BUN 55 H Creatinine 2.1 H Glucose 157 H POC Glucose 142 H 124 H Lactic Acid Calcium 7.0 L Ionized Calcium Phosphorus Magnesium AST Lactate Dehydrogenase C-Reactive Protein NT-Pro-B Natriuret Pep Serum Total Protein Total Protein Albumin Zoxmp-3-Pnmjjhkgt Gamma Globulins PEP Interpretation TSH Arterial Blood Glucose Arterial Blood Ionized Calcium Urine WBC (Auto) Crossmatch 11/05/20 11/05/20 11/05/20 19:00 21:20 23:30 WBC RBC Hgb Hct RDW Seg Neuts % (Manual) Lymphocytes % (Manual) Seg Neutrophils # Man Lymphocytes # (Manual) Monocytes # (Manual) PT INR APTT 63.8 H* D-Dimer Heparin Anti-Xa Level ABG pH POC ABG pCO2 POC ABG pO2 ABG Hemoglobin ABG Oxyhemoglobin ABG Sodium ABG Potassium ABG Chloride ABG Glucose Carboxyhemoglobin Sodium Potassium Chloride Carbon Dioxide BUN Creatinine Glucose POC Glucose 156 H Lactic Acid Calcium Ionized Calcium Phosphorus Magnesium AST Lactate Dehydrogenase C-Reactive Protein NT-Pro-B Natriuret Pep Serum Total Protein Total Protein 4.3 L Albumin 2.1 L Dcpce-6-Cryujrrni Gamma Globulins PEP Interpretation TSH Arterial Blood Glucose Arterial Blood Ionized Calcium Urine WBC (Auto) Crossmatch 11/06/20 11/06/20 11/06/20 02:54 04:00 04:00 WBC 33.0 H RBC 2.68 L Hgb 7.7 L Hct 23.3 L RDW Seg Neuts % (Manual) 95.0 H Lymphocytes % (Manual) 2.0 L Seg Neutrophils # Man 31.4 H Lymphocytes # (Manual) 0.7 L Monocytes # (Manual) 1.0 H PT INR APTT D-Dimer Heparin Anti-Xa Level ABG pH POC ABG pCO2 POC ABG pO2 116.5 H ABG Hemoglobin 9.7 L ABG Oxyhemoglobin ABG Sodium 134.5 L ABG Potassium 5.0 H ABG Chloride 109.0 H ABG Glucose 165 H Carboxyhemoglobin 0.3 L Sodium Potassium 5.1 H Chloride 108.6 H Carbon Dioxide BUN 62 H Creatinine 2.2 H Glucose 155 H POC Glucose Lactic Acid Calcium 7.3 L Ionized Calcium Phosphorus Magnesium AST Lactate Dehydrogenase C-Reactive Protein NT-Pro-B Natriuret Pep Serum Total Protein Total Protein Albumin Cvdkj-5-Hkxxaousx Gamma Globulins PEP Interpretation TSH Arterial Blood Glucose 165 H Arterial Blood Ionized Calcium 4.5 L Urine WBC (Auto) Crossmatch 11/06/20 11/06/20 11/06/20 05:17 06:00 17:26 WBC RBC Hgb Hct RDW Seg Neuts % (Manual) Lymphocytes % (Manual) Seg Neutrophils # Man Lymphocytes # (Manual) Monocytes # (Manual) PT INR APTT D-Dimer Heparin Anti-Xa Level ABG pH POC ABG pCO2 POC ABG pO2 ABG Hemoglobin ABG Oxyhemoglobin ABG Sodium ABG Potassium ABG Chloride ABG Glucose Carboxyhemoglobin Sodium Potassium Chloride Carbon Dioxide BUN Creatinine Glucose POC Glucose 147 H 132 H Lactic Acid Calcium Ionized Calcium 4.7 L Phosphorus Magnesium AST Lactate Dehydrogenase C-Reactive Protein NT-Pro-B Natriuret Pep Serum Total Protein Total Protein Albumin Soxqm-3-Ievjvwjtg Gamma Globulins PEP Interpretation TSH Arterial Blood Glucose Arterial Blood Ionized Calcium Urine WBC (Auto) Crossmatch 11/06/20 11/07/20 11/07/20 Unknown 04:00 04:00 WBC 28.9 H RBC 2.44 L Hgb 7.1 L Hct 21.2 L RDW 15.4 H Seg Neuts % (Manual) 95.0 H Lymphocytes % (Manual) 3.0 L Seg Neutrophils # Man 27.5 H Lymphocytes # (Manual) 0.9 L Monocytes # (Manual) PT INR APTT D-Dimer Heparin Anti-Xa Level ABG pH POC ABG pCO2 POC ABG pO2 ABG Hemoglobin ABG Oxyhemoglobin ABG Sodium ABG Potassium ABG Chloride ABG Glucose Carboxyhemoglobin Sodium Potassium 5.3 H Chloride 108.2 H Carbon Dioxide BUN 77 H Creatinine 2.4 H Glucose 144 H POC Glucose Lactic Acid Calcium 7.5 L Ionized Calcium Phosphorus Magnesium AST Lactate Dehydrogenase C-Reactive Protein NT-Pro-B Natriuret Pep Serum Total Protein 4.1 L Total Protein Albumin 2.2 L Mcprt-1-Vjdxgmoob 0.5 H Gamma Globulins 0.4 L PEP Interpretation see below H TSH Arterial Blood Glucose Arterial Blood Ionized Calcium Urine WBC (Auto) Crossmatch 11/07/20 11/07/20 11/07/20 04:00 12:06 17:29 WBC RBC Hgb Hct RDW Seg Neuts % (Manual) Lymphocytes % (Manual) Seg Neutrophils # Man Lymphocytes # (Manual) Monocytes # (Manual) PT INR APTT D-Dimer Heparin Anti-Xa Level ABG pH POC ABG pCO2 POC ABG pO2 130.1 H ABG Hemoglobin 7.5 L ABG Oxyhemoglobin ABG Sodium ABG Potassium 5.0 H ABG Chloride 110.0 H ABG Glucose 152 H Carboxyhemoglobin Sodium Potassium Chloride Carbon Dioxide BUN Creatinine Glucose POC Glucose 144 H 117 H Lactic Acid Calcium Ionized Calcium Phosphorus Magnesium AST Lactate Dehydrogenase C-Reactive Protein NT-Pro-B Natriuret Pep Serum Total Protein Total Protein Albumin Nzcws-6-Qrfarposx Gamma Globulins PEP Interpretation TSH Arterial Blood Glucose 152 H Arterial Blood Ionized Calcium Urine WBC (Auto) Crossmatch 11/08/20 11/08/20 11/08/20 03:38 04:39 04:39 WBC 23.1 H RBC 2.37 L Hgb 6.9 L Hct 20.8 L RDW 15.3 H Seg Neuts % (Manual) 95.5 H Lymphocytes % (Manual) 2.5 L Seg Neutrophils # Man 22.1 H Lymphocytes # (Manual) 0.6 L Monocytes # (Manual) PT INR APTT D-Dimer Heparin Anti-Xa Level ABG pH 7.494 H POC ABG pCO2 POC ABG pO2 111.5 H ABG Hemoglobin 6.7 L ABG Oxyhemoglobin ABG Sodium ABG Potassium 4.9 H ABG Chloride 112.0 H ABG Glucose 153 H Carboxyhemoglobin Sodium Potassium 5.1 H Chloride 111.3 H Carbon Dioxide BUN 86 H Creatinine 2.5 H Glucose 142 H POC Glucose Lactic Acid Calcium 7.6 L Ionized Calcium Phosphorus Magnesium AST Lactate Dehydrogenase C-Reactive Protein NT-Pro-B Natriuret Pep Serum Total Protein Total Protein Albumin Ofbuz-5-Bkozrrscf Gamma Globulins PEP Interpretation TSH Arterial Blood Glucose 153 H Arterial Blood Ionized Calcium 4.5 L Urine WBC (Auto) Crossmatch 11/08/20 11/08/20 11/08/20 11:13 11:15 16:30 WBC RBC Hgb 8.0 L Hct 23.6 L RDW Seg Neuts % (Manual) Lymphocytes % (Manual) Seg Neutrophils # Man Lymphocytes # (Manual) Monocytes # (Manual) PT INR APTT D-Dimer Heparin Anti-Xa Level ABG pH POC ABG pCO2 POC ABG pO2 ABG Hemoglobin ABG Oxyhemoglobin ABG Sodium ABG Potassium ABG Chloride ABG Glucose Carboxyhemoglobin Sodium Potassium Chloride Carbon Dioxide BUN Creatinine Glucose POC Glucose 125 H Lactic Acid Calcium Ionized Calcium Phosphorus Magnesium AST Lactate Dehydrogenase C-Reactive Protein NT-Pro-B Natriuret Pep Serum Total Protein Total Protein Albumin Ewefd-7-Fzcqjmusn Gamma Globulins PEP Interpretation TSH Arterial Blood Glucose Arterial Blood Ionized Calcium Urine WBC (Auto) Crossmatch See Detail 11/08/20 11/08/20 11/09/20 19:11 22:20 03:21 WBC 19.0 H RBC 2.51 L Hgb 7.5 L Hct 22.2 L RDW 15.3 H Seg Neuts % (Manual) 89.0 H Lymphocytes % (Manual) 6.0 L Seg Neutrophils # Man 16.9 H Lymphocytes # (Manual) 1.1 L Monocytes # (Manual) 1.0 H PT INR APTT D-Dimer Heparin Anti-Xa Level ABG pH POC ABG pCO2 POC ABG pO2 ABG Hemoglobin ABG Oxyhemoglobin ABG Sodium ABG Potassium ABG Chloride ABG Glucose Carboxyhemoglobin Sodium Potassium Chloride Carbon Dioxide BUN Creatinine Glucose POC Glucose 107 H Lactic Acid Calcium Ionized Calcium Phosphorus Magnesium AST Lactate Dehydrogenase C-Reactive Protein NT-Pro-B Natriuret Pep Serum Total Protein Total Protein 3.8 L Albumin 2.2 L Uzxya-7-Pkbrznpas Gamma Globulins PEP Interpretation TSH Arterial Blood Glucose Arterial Blood Ionized Calcium Urine WBC (Auto) Crossmatch 11/09/20 11/09/20 11/09/20 03:21 03:21 03:43 WBC RBC Hgb Hct RDW Seg Neuts % (Manual) Lymphocytes % (Manual) Seg Neutrophils # Man Lymphocytes # (Manual) Monocytes # (Manual) PT INR APTT 50.8 H D-Dimer Heparin Anti-Xa Level ABG pH POC ABG pCO2 POC ABG pO2 ABG Hemoglobin ABG Oxyhemoglobin ABG Sodium ABG Potassium ABG Chloride ABG Glucose Carboxyhemoglobin Sodium Potassium Chloride 109.1 H Carbon Dioxide BUN 86 H Creatinine 2.5 H Glucose 140 H POC Glucose 117 H Lactic Acid Calcium 6.9 L Ionized Calcium Phosphorus Magnesium AST Lactate Dehydrogenase C-Reactive Protein NT-Pro-B Natriuret Pep Serum Total Protein Total Protein Albumin Ytglw-2-Guiozrgjz Gamma Globulins PEP Interpretation TSH Arterial Blood Glucose Arterial Blood Ionized Calcium Urine WBC (Auto) Crossmatch 11/09/20 11/09/20 11/09/20 09:22 17:04 22:08 WBC RBC Hgb Hct RDW Seg Neuts % (Manual) Lymphocytes % (Manual) Seg Neutrophils # Man Lymphocytes # (Manual) Monocytes # (Manual) PT INR APTT D-Dimer Heparin Anti-Xa Level ABG pH POC ABG pCO2 POC ABG pO2 ABG Hemoglobin ABG Oxyhemoglobin ABG Sodium ABG Potassium ABG Chloride ABG Glucose Carboxyhemoglobin Sodium Potassium Chloride Carbon Dioxide BUN Creatinine Glucose POC Glucose 111 H 106 H 112 H Lactic Acid Calcium Ionized Calcium Phosphorus Magnesium AST Lactate Dehydrogenase C-Reactive Protein NT-Pro-B Natriuret Pep Serum Total Protein Total Protein Albumin Dzuny-9-Qqvipsljg Gamma Globulins PEP Interpretation TSH Arterial Blood Glucose Arterial Blood Ionized Calcium Urine WBC (Auto) Crossmatch 11/10/20 11/10/20 11/10/20 05:30 05:30 11:50 WBC RBC Hgb 6.6 L Hct 19.9 L* RDW Seg Neuts % (Manual) Lymphocytes % (Manual) Seg Neutrophils # Man Lymphocytes # (Manual) Monocytes # (Manual) PT INR APTT D-Dimer Heparin Anti-Xa Level ABG pH POC ABG pCO2 POC ABG pO2 ABG Hemoglobin ABG Oxyhemoglobin ABG Sodium ABG Potassium ABG Chloride ABG Glucose Carboxyhemoglobin Sodium Potassium Chloride 111.3 H Carbon Dioxide BUN 74 H Creatinine 2.3 H Glucose 119 H POC Glucose 108 H Lactic Acid Calcium 7.1 L Ionized Calcium Phosphorus Magnesium 4.40 H AST Lactate Dehydrogenase C-Reactive Protein NT-Pro-B Natriuret Pep Serum Total Protein Total Protein Albumin Hfikt-4-Czfdjnxfj Gamma Globulins PEP Interpretation TSH Arterial Blood Glucose Arterial Blood Ionized Calcium Urine WBC (Auto) Crossmatch 11/10/20 11/10/20 11/10/20 17:50 23:12 23:17 WBC RBC Hgb 9.5 L 9.1 L Hct 28.2 L D 27.5 L RDW Seg Neuts % (Manual) Lymphocytes % (Manual) Seg Neutrophils # Man Lymphocytes # (Manual) Monocytes # (Manual) PT INR APTT D-Dimer Heparin Anti-Xa Level ABG pH POC ABG pCO2 POC ABG pO2 ABG Hemoglobin ABG Oxyhemoglobin ABG Sodium ABG Potassium ABG Chloride ABG Glucose Carboxyhemoglobin Sodium Potassium Chloride Carbon Dioxide BUN Creatinine Glucose POC Glucose 107 H Lactic Acid Calcium Ionized Calcium Phosphorus Magnesium AST Lactate Dehydrogenase C-Reactive Protein NT-Pro-B Natriuret Pep Serum Total Protein Total Protein Albumin Pqirr-2-Iujcujgqh Gamma Globulins PEP Interpretation TSH Arterial Blood Glucose Arterial Blood Ionized Calcium Urine WBC (Auto) Crossmatch 11/11/20 11/11/20 11/11/20 05:16 05:30 08:35 WBC 17.4 H RBC 3.17 L Hgb 9.5 L Hct 29.0 L RDW 16.2 H Seg Neuts % (Manual) Lymphocytes % (Manual) Seg Neutrophils # Man Lymphocytes # (Manual) Monocytes # (Manual) PT INR APTT D-Dimer Heparin Anti-Xa Level ABG pH POC ABG pCO2 POC ABG pO2 ABG Hemoglobin ABG Oxyhemoglobin ABG Sodium ABG Potassium ABG Chloride ABG Glucose Carboxyhemoglobin Sodium Potassium Chloride 107.4 H Carbon Dioxide BUN 64 H Creatinine 2.1 H Glucose 148 H POC Glucose 127 H Lactic Acid Calcium 6.7 L Ionized Calcium Phosphorus Magnesium 3.90 H AST Lactate Dehydrogenase C-Reactive Protein NT-Pro-B Natriuret Pep Serum Total Protein Total Protein Albumin Uylwi-3-Pkfiipmpr Gamma Globulins PEP Interpretation TSH Arterial Blood Glucose Arterial Blood Ionized Calcium Urine WBC (Auto) Crossmatch 11/11/20 11/11/20 11/11/20 09:14 10:10 11:45 WBC RBC Hgb 9.2 L Hct 27.2 L RDW Seg Neuts % (Manual) Lymphocytes % (Manual) Seg Neutrophils # Man Lymphocytes # (Manual) Monocytes # (Manual) PT INR APTT D-Dimer Heparin Anti-Xa Level ABG pH POC ABG pCO2 POC ABG pO2 ABG Hemoglobin ABG Oxyhemoglobin ABG Sodium 135.8 L ABG Potassium ABG Chloride 111.0 H ABG Glucose 152 H Carboxyhemoglobin Sodium Potassium Chloride Carbon Dioxide BUN Creatinine Glucose POC Glucose 139 H Lactic Acid Calcium Ionized Calcium Phosphorus Magnesium AST Lactate Dehydrogenase C-Reactive Protein NT-Pro-B Natriuret Pep Serum Total Protein Total Protein Albumin Pycvm-8-Rsjrmmjka Gamma Globulins PEP Interpretation TSH Arterial Blood Glucose 152 H Arterial Blood Ionized Calcium 4.2 L Urine WBC (Auto) Crossmatch 11/11/20 11/11/20 11/11/20 14:41 17:09 21:12 WBC RBC Hgb 8.7 L Hct 25.8 L RDW Seg Neuts % (Manual) Lymphocytes % (Manual) Seg Neutrophils # Man Lymphocytes # (Manual) Monocytes # (Manual) PT INR APTT D-Dimer Heparin Anti-Xa Level ABG pH POC ABG pCO2 POC ABG pO2 ABG Hemoglobin ABG Oxyhemoglobin ABG Sodium ABG Potassium ABG Chloride ABG Glucose Carboxyhemoglobin Sodium Potassium Chloride Carbon Dioxide BUN Creatinine Glucose POC Glucose 110 H 115 H Lactic Acid Calcium Ionized Calcium Phosphorus Magnesium AST Lactate Dehydrogenase C-Reactive Protein NT-Pro-B Natriuret Pep Serum Total Protein Total Protein Albumin Tcdqj-4-Cavxewkae Gamma Globulins PEP Interpretation TSH Arterial Blood Glucose Arterial Blood Ionized Calcium Urine WBC (Auto) Crossmatch 11/11/20 11/12/20 11/12/20 23:02 03:10 03:38 WBC RBC Hgb Hct RDW Seg Neuts % (Manual) Lymphocytes % (Manual) Seg Neutrophils # Man Lymphocytes # (Manual) Monocytes # (Manual) PT INR APTT D-Dimer Heparin Anti-Xa Level ABG pH POC ABG pCO2 POC ABG pO2 ABG Hemoglobin ABG Oxyhemoglobin ABG Sodium ABG Potassium ABG Chloride ABG Glucose Carboxyhemoglobin Sodium Potassium Chloride 109.8 H Carbon Dioxide BUN 64 H Creatinine 2.0 H Glucose 129 H POC Glucose 109 H 107 H Lactic Acid Calcium 6.7 L Ionized Calcium Phosphorus 2.10 L D Magnesium 3.50 H AST Lactate Dehydrogenase C-Reactive Protein NT-Pro-B Natriuret Pep Serum Total Protein Total Protein Albumin Syyty-6-Mevfccddh Gamma Globulins PEP Interpretation TSH Arterial Blood Glucose Arterial Blood Ionized Calcium Urine WBC (Auto) Crossmatch 11/12/20 11/12/20 11/12/20 03:38 11:44 13:49 WBC 15.2 H RBC 2.70 L Hgb 8.1 L Hct 24.3 L RDW 16.0 H Seg Neuts % (Manual) Lymphocytes % (Manual) Seg Neutrophils # Man Lymphocytes # (Manual) Monocytes # (Manual) PT INR APTT D-Dimer Heparin Anti-Xa Level ABG pH POC ABG pCO2 POC ABG pO2 ABG Hemoglobin 8.6 L ABG Oxyhemoglobin ABG Sodium ABG Potassium ABG Chloride 111.0 H ABG Glucose 135 H Carboxyhemoglobin Sodium Potassium Chloride Carbon Dioxide BUN Creatinine Glucose POC Glucose 114 H Lactic Acid Calcium Ionized Calcium Phosphorus Magnesium AST Lactate Dehydrogenase C-Reactive Protein NT-Pro-B Natriuret Pep Serum Total Protein Total Protein Albumin Pcjfn-9-Lnmkbzehx Gamma Globulins PEP Interpretation TSH Arterial Blood Glucose 135 H Arterial Blood Ionized Calcium 4.3 L Urine WBC (Auto) Crossmatch 11/12/20 11/12/20 11/12/20 17:05 17:11 23:16 WBC RBC Hgb Hct RDW Seg Neuts % (Manual) Lymphocytes % (Manual) Seg Neutrophils # Man Lymphocytes # (Manual) Monocytes # (Manual) PT INR APTT D-Dimer Heparin Anti-Xa Level 0.25 L ABG pH POC ABG pCO2 POC ABG pO2 ABG Hemoglobin ABG Oxyhemoglobin ABG Sodium ABG Potassium ABG Chloride ABG Glucose Carboxyhemoglobin Sodium Potassium Chloride Carbon Dioxide BUN Creatinine Glucose POC Glucose 117 H 116 H Lactic Acid Calcium Ionized Calcium Phosphorus Magnesium AST Lactate Dehydrogenase C-Reactive Protein NT-Pro-B Natriuret Pep Serum Total Protein Total Protein Albumin Pdrzi-8-Ibysdnuka Gamma Globulins PEP Interpretation TSH Arterial Blood Glucose Arterial Blood Ionized Calcium Urine WBC (Auto) Crossmatch 11/13/20 11/13/20 11/13/20 05:09 05:30 05:30 WBC RBC Hgb 7.8 L Hct 22.6 L RDW Seg Neuts % (Manual) Lymphocytes % (Manual) Seg Neutrophils # Man Lymphocytes # (Manual) Monocytes # (Manual) PT INR APTT D-Dimer Heparin Anti-Xa Level ABG pH POC ABG pCO2 POC ABG pO2 ABG Hemoglobin ABG Oxyhemoglobin ABG Sodium ABG Potassium ABG Chloride ABG Glucose Carboxyhemoglobin Sodium Potassium Chloride 109.4 H Carbon Dioxide BUN 65 H Creatinine 2.0 H Glucose 137 H POC Glucose 116 H Lactic Acid Calcium 7.0 L Ionized Calcium Phosphorus 1.60 L D Magnesium 3.10 H AST Lactate Dehydrogenase C-Reactive Protein NT-Pro-B Natriuret Pep Serum Total Protein Total Protein Albumin Suuml-7-Urkoqheut Gamma Globulins PEP Interpretation TSH Arterial Blood Glucose Arterial Blood Ionized Calcium Urine WBC (Auto) Crossmatch 11/13/20 11/13/20 11/13/20 08:16 12:26 17:33 WBC 12.8 H RBC 2.60 L Hgb 7.6 L Hct 23.0 L RDW 15.8 H Seg Neuts % (Manual) Lymphocytes % (Manual) Seg Neutrophils # Man Lymphocytes # (Manual) Monocytes # (Manual) PT INR APTT D-Dimer Heparin Anti-Xa Level ABG pH POC ABG pCO2 POC ABG pO2 ABG Hemoglobin ABG Oxyhemoglobin ABG Sodium ABG Potassium ABG Chloride ABG Glucose Carboxyhemoglobin Sodium Potassium Chloride Carbon Dioxide BUN Creatinine Glucose POC Glucose 106 H 124 H Lactic Acid Calcium Ionized Calcium Phosphorus Magnesium AST Lactate Dehydrogenase C-Reactive Protein NT-Pro-B Natriuret Pep Serum Total Protein Total Protein Albumin Cemow-3-Ghxxxgmzs Gamma Globulins PEP Interpretation TSH Arterial Blood Glucose Arterial Blood Ionized Calcium Urine WBC (Auto) Crossmatch 11/13/20 11/13/20 11/13/20 18:31 20:35 20:35 WBC RBC Hgb 7.6 L Hct 22.1 L RDW Seg Neuts % (Manual) Lymphocytes % (Manual) Seg Neutrophils # Man Lymphocytes # (Manual) Monocytes # (Manual) PT INR APTT D-Dimer Heparin Anti-Xa Level 0.12 L ABG pH POC ABG pCO2 POC ABG pO2 ABG Hemoglobin ABG Oxyhemoglobin ABG Sodium ABG Potassium ABG Chloride ABG Glucose Carboxyhemoglobin Sodium Potassium Chloride Carbon Dioxide BUN Creatinine Glucose POC Glucose Lactic Acid Calcium Ionized Calcium Phosphorus Magnesium AST Lactate Dehydrogenase C-Reactive Protein NT-Pro-B Natriuret Pep Serum Total Protein Total Protein Albumin Ghldq-8-Rhdfrtedy Gamma Globulins PEP Interpretation TSH Arterial Blood Glucose Arterial Blood Ionized Calcium Urine WBC (Auto) Crossmatch See Detail 11/13/20 11/14/20 11/14/20 Unknown 02:45 04:00 WBC RBC Hgb Hct RDW Seg Neuts % (Manual) Lymphocytes % (Manual) Seg Neutrophils # Man Lymphocytes # (Manual) Monocytes # (Manual) PT 15.7 H INR 1.27 H APTT 60.6 H* D-Dimer Heparin Anti-Xa Level 0.18 L ABG pH POC ABG pCO2 POC ABG pO2 ABG Hemoglobin ABG Oxyhemoglobin ABG Sodium ABG Potassium ABG Chloride ABG Glucose Carboxyhemoglobin Sodium Potassium 3.2 L Chloride 108.0 H Carbon Dioxide BUN 69 H Creatinine 2.2 H Glucose 126 H POC Glucose Lactic Acid Calcium 6.9 L Ionized Calcium Phosphorus Magnesium 2.90 H AST Lactate Dehydrogenase C-Reactive Protein NT-Pro-B Natriuret Pep Serum Total Protein Total Protein Albumin Whcka-4-Nhrrzvwbu Gamma Globulins PEP Interpretation TSH Arterial Blood Glucose Arterial Blood Ionized Calcium Urine WBC (Auto) Crossmatch 11/14/20 11/14/20 11/14/20 04:00 05:26 12:18 WBC RBC 2.34 L Hgb 7.2 L Hct 20.8 L RDW 15.9 H Seg Neuts % (Manual) Lymphocytes % (Manual) Seg Neutrophils # Man Lymphocytes # (Manual) Monocytes # (Manual) PT INR APTT D-Dimer Heparin Anti-Xa Level ABG pH POC ABG pCO2 POC ABG pO2 ABG Hemoglobin ABG Oxyhemoglobin ABG Sodium ABG Potassium ABG Chloride ABG Glucose Carboxyhemoglobin Sodium Potassium Chloride Carbon Dioxide BUN Creatinine Glucose POC Glucose 120 H 129 H Lactic Acid Calcium Ionized Calcium Phosphorus Magnesium AST Lactate Dehydrogenase C-Reactive Protein NT-Pro-B Natriuret Pep Serum Total Protein Total Protein Albumin Wkheu-0-Qfpgnmcrn Gamma Globulins PEP Interpretation TSH Arterial Blood Glucose Arterial Blood Ionized Calcium Urine WBC (Auto) Crossmatch 11/14/20 11/14/20 11/15/20 23:09 23:24 05:16 WBC RBC Hgb Hct RDW Seg Neuts % (Manual) Lymphocytes % (Manual) Seg Neutrophils # Man Lymphocytes # (Manual) Monocytes # (Manual) PT INR APTT D-Dimer Heparin Anti-Xa Level ABG pH 7.453 H POC ABG pCO2 POC ABG pO2 118.0 H ABG Hemoglobin 7.7 L ABG Oxyhemoglobin ABG Sodium ABG Potassium ABG Chloride 111.0 H ABG Glucose 149 H Carboxyhemoglobin Sodium Potassium Chloride Carbon Dioxide BUN Creatinine Glucose POC Glucose 128 H 146 H Lactic Acid Calcium Ionized Calcium Phosphorus Magnesium AST Lactate Dehydrogenase C-Reactive Protein NT-Pro-B Natriuret Pep Serum Total Protein Total Protein Albumin Lttrm-3-Awfjaqqtp Gamma Globulins PEP Interpretation TSH Arterial Blood Glucose 149 H Arterial Blood Ionized Calcium 4.3 L Urine WBC (Auto) Crossmatch 11/15/20 11/15/20 11/15/20 11:48 17:28 23:22 WBC RBC Hgb Hct RDW Seg Neuts % (Manual) Lymphocytes % (Manual) Seg Neutrophils # Man Lymphocytes # (Manual) Monocytes # (Manual) PT INR APTT D-Dimer Heparin Anti-Xa Level ABG pH POC ABG pCO2 POC ABG pO2 ABG Hemoglobin ABG Oxyhemoglobin ABG Sodium ABG Potassium ABG Chloride ABG Glucose Carboxyhemoglobin Sodium Potassium Chloride Carbon Dioxide BUN Creatinine Glucose POC Glucose 125 H 138 H 138 H Lactic Acid Calcium Ionized Calcium Phosphorus Magnesium AST Lactate Dehydrogenase C-Reactive Protein NT-Pro-B Natriuret Pep Serum Total Protein Total Protein Albumin Ckqvl-6-Pjmzzpmxf Gamma Globulins PEP Interpretation TSH Arterial Blood Glucose Arterial Blood Ionized Calcium Urine WBC (Auto) Crossmatch 11/15/20 11/15/20 11/15/20 23:24 Unknown Unknown WBC 12.1 H RBC 2.43 L Hgb 7.3 L Hct 21.5 L RDW 16.1 H Seg Neuts % (Manual) Lymphocytes % (Manual) Seg Neutrophils # Man Lymphocytes # (Manual) Monocytes # (Manual) PT INR APTT D-Dimer Heparin Anti-Xa Level 0.26 L ABG pH POC ABG pCO2 POC ABG pO2 ABG Hemoglobin ABG Oxyhemoglobin ABG Sodium ABG Potassium ABG Chloride ABG Glucose Carboxyhemoglobin Sodium Potassium Chloride 108.0 H Carbon Dioxide BUN 80 H Creatinine 2.7 H Glucose 152 H POC Glucose Lactic Acid Calcium 7.2 L Ionized Calcium Phosphorus Magnesium 2.60 H AST Lactate Dehydrogenase C-Reactive Protein NT-Pro-B Natriuret Pep Serum Total Protein Total Protein Albumin Cpdre-6-Oodpvteig Gamma Globulins PEP Interpretation TSH Arterial Blood Glucose Arterial Blood Ionized Calcium Urine WBC (Auto) Crossmatch 11/16/20 11/16/20 11/16/20 04:40 04:40 04:40 WBC 16.3 H RBC 2.49 L Hgb 7.3 L Hct 22.1 L RDW 16.4 H Seg Neuts % (Manual) Lymphocytes % (Manual) Seg Neutrophils # Man Lymphocytes # (Manual) Monocytes # (Manual) PT 16.2 H INR 1.32 H APTT D-Dimer Heparin Anti-Xa Level 0.24 L ABG pH POC ABG pCO2 POC ABG pO2 ABG Hemoglobin ABG Oxyhemoglobin ABG Sodium ABG Potassium ABG Chloride ABG Glucose Carboxyhemoglobin Sodium Potassium Chloride Carbon Dioxide 21 L BUN 109 H Creatinine 4.1 H D Glucose 172 H POC Glucose Lactic Acid Calcium 7.5 L Ionized Calcium Phosphorus Magnesium 2.70 H AST 41 H Lactate Dehydrogenase C-Reactive Protein NT-Pro-B Natriuret Pep Serum Total Protein Total Protein 4.9 L Albumin 1.7 L Vzxws-5-Lbjftjoul Gamma Globulins PEP Interpretation TSH Arterial Blood Glucose Arterial Blood Ionized Calcium Urine WBC (Auto) Crossmatch 11/16/20 11/16/20 05:16 08:35 WBC RBC Hgb Hct RDW Seg Neuts % (Manual) Lymphocytes % (Manual) Seg Neutrophils # Man Lymphocytes # (Manual) Monocytes # (Manual) PT INR APTT D-Dimer Heparin Anti-Xa Level ABG pH 7.456 H POC ABG pCO2 30.4 L POC ABG pO2 115.9 H ABG Hemoglobin 7.8 L ABG Oxyhemoglobin ABG Sodium 135.6 L ABG Potassium 3.2 L ABG Chloride 109.0 H ABG Glucose 175 H Carboxyhemoglobin Sodium Potassium Chloride Carbon Dioxide BUN Creatinine Glucose POC Glucose 160 H Lactic Acid Calcium Ionized Calcium Phosphorus Magnesium AST Lactate Dehydrogenase C-Reactive Protein NT-Pro-B Natriuret Pep Serum Total Protein Total Protein Albumin Xrzaa-9-Saxiyposr Gamma Globulins PEP Interpretation TSH Arterial Blood Glucose 175 H Arterial Blood Ionized Calcium 4.4 L Urine WBC (Auto) Crossmatch Allied health notes reviewed: nursing
[2020-11-16] MEDS ORDERED: MORPHINE 2 MG/1 ML INJ IV PRN (11:16)
--- NOTE | 2020-11-16 11:18 | Progress Note ---
Assessment and Plan 70 yo M s/p 1. reexploration of abdomen, appendectomy, small bowel anastamosis, POD6 2. exploratory laparotomy, small bowel resection, placement of abthera vac, 11/08/20 1. 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 Vent dependent respiratory failure 3. septic shock 4. MCA CVA 5. acute limb ischemia s/p right lower extremity revascularization and fasciotomies Plan: 1. neuro - morphine (moderate) and dilaudid (severe) prn for pain control if respiratory status is stable 2. CV - monitor BP. on hepgtt. Vascular and cards on board 3. Resp - on BIPAP per pulm 4. GI - strict NPO. Will need speech therapy eval once mental status is improved and prior to starting oral diet. GI ppx. On TPN. Bowel regimen 5. - knutson for strict I/Os 6. ID - abx per ID. 7. Endo - strict glucose control 8. Musc - SCDs. Frequent turning. 9. FEN - BMP daily and replace lytes as needed. TPN Prognosis is guarded Please call with any questions or concerns. Evaluation and treatment of this patient was during the time of the national and state emergency arising from COVID19 coronavirus pandemic. Treatment and procedures performed meet the current and available best practice and guidelines for patient during the COVID pandemic. Subjective Date of service: 11/16/20 Narrative: Pt seen and examined. On BIPAP. NO BM recorded however per physician notes patient did have BM over weekend. Tm 100.5 Objective Vital Signs - 12hr 11/15/20 11/15/20 11/15/20 23:24 23:28 23:30 Temperature 100.5 F H 97.4 F L Pulse Rate 76 Pulse Rate [ 68 From Monitor] Pulse Rate [ 68 Right Posterior Tibial] Respiratory 41 H Rate Blood Pressure O2 Sat by Pulse 100 Oximetry 11/15/20 11/15/20 11/16/20 23:31 23:56 00:01 Temperature Pulse Rate 76 74 74 Pulse Rate [ From Monitor] Pulse Rate [ Right Posterior Tibial] Respiratory 44 H 37 H 35 H Rate Blood Pressure 112/69 112/69 112/69 O2 Sat by Pulse 100 100 100 Oximetry 11/16/20 11/16/20 11/16/20 00:31 00:54 01:00 Temperature Pulse Rate 74 75 65 Pulse Rate [ From Monitor] Pulse Rate [ Right Posterior Tibial] Respiratory 35 H 33 H Rate Blood Pressure 119/78 119/78 111/64 O2 Sat by Pulse 100 100 Oximetry 11/16/20 11/16/20 11/16/20 01:31 01:55 02:01 Temperature 97.4 F L Pulse Rate 71 73 Pulse Rate [ From Monitor] Pulse Rate [ Right Posterior Tibial] Respiratory 34 H 37 H Rate Blood Pressure 111/64 160/83 O2 Sat by Pulse 100 100 Oximetry 11/16/20 11/16/20 11/16/20 02:31 03:00 03:01 Temperature Pulse Rate 68 72 72 Pulse Rate [ From Monitor] Pulse Rate [ Right Posterior Tibial] Respiratory 32 H 36 H 40 H Rate Blood Pressure 160/83 167/80 163/83 O2 Sat by Pulse 100 100 100 Oximetry 11/16/20 11/16/20 11/16/20 03:10 03:31 04:00 Temperature 99.2 F Pulse Rate 75 74 Pulse Rate [ From Monitor] Pulse Rate [ Right Posterior Tibial] Respiratory 40 H 42 H Rate Blood Pressure 163/83 167/80 O2 Sat by Pulse 100 100 Oximetry 11/16/20 11/16/20 11/16/20 04:25 04:31 05:01 Temperature Pulse Rate 74 68 Pulse Rate [ 68 From Monitor] Pulse Rate [ 68 Right Posterior Tibial] Respiratory 31 H 46 H 31 H Rate Blood Pressure 167/80 148/78 O2 Sat by Pulse 100 100 100 Oximetry 11/16/20 11/16/20 11/16/20 05:11 05:31 05:45 Temperature Pulse Rate 69 62 Pulse Rate [ 63 From Monitor] Pulse Rate [ 63 Right Posterior Tibial] Respiratory 31 H 30 H Rate Blood Pressure 148/78 148/78 O2 Sat by Pulse 100 100 Oximetry 11/16/20 11/16/20 11/16/20 06:00 06:31 07:00 Temperature 98.0 F Pulse Rate 66 65 67 Pulse Rate [ From Monitor] Pulse Rate [ Right Posterior Tibial] Respiratory 31 H 29 H 29 H Rate Blood Pressure 141/73 141/73 155/77 O2 Sat by Pulse 100 100 100 Oximetry 11/16/20 11/16/20 11/16/20 07:27 07:31 08:00 Temperature Pulse Rate 68 68 69 Pulse Rate [ From Monitor] Pulse Rate [ Right Posterior Tibial] Respiratory 29 H 29 H 30 H Rate Blood Pressure 155/77 155/77 149/70 O2 Sat by Pulse 100 100 100 Oximetry 11/16/20 11/16/20 11/16/20 08:31 09:01 09:31 Temperature Pulse Rate 68 72 71 Pulse Rate [ From Monitor] Pulse Rate [ Right Posterior Tibial] Respiratory 27 H 32 H 29 H Rate Blood Pressure 149/70 152/74 149/70 O2 Sat by Pulse 100 100 100 Oximetry 11/16/20 10:01 Temperature Pulse Rate 75 Pulse Rate [ From Monitor] Pulse Rate [ Right Posterior Tibial] Respiratory 27 H Rate Blood Pressure 147/78 O2 Sat by Pulse 100 Oximetry - General physical appearance Narrative Exam: Gen: Lethargic. Does not follow commands or respond to verbal stimuli CV: S1, S2+ Resp: on BIPAP Abd: soft. ND, mild TTP. Incision c/d/i with daniel in place Ext: RLE dressing c/d/i - Labs 11/16/20 04:40 11/16/20 04:40 Diabetes panel 11/16/20 Range/Units 04:40 Sodium 139 (137-145) mmol/L Potassium 3.6 (3.6-5.0) mmol/L Chloride 105.5 (98-107) mmol/L Carbon Dioxide 21 L (22-30) mmol/L BUN 109 H (9-20) mg/dL Creatinine 4.1 H D (0.8-1.3) mg/dL Glucose 172 H (75-100) mg/dL Calcium 7.5 L (8.4-10.2) mg/dL AST 41 H (5-40) units/L ALT 42 (7-56) units/L Alkaline Phosphatase 54 (35-129) units/L Total Protein 4.9 L (6.3-8.2) g/dL Albumin 1.7 L (3.9-5) g/dL Calcium panel 11/16/20 Range/Units 04:40 Calcium 7.5 L (8.4-10.2) mg/dL Phosphorus 2.90 (2.5-4.5) mg/dL Albumin 1.7 L (3.9-5) g/dL Pituitary panel 11/16/20 Range/Units 04:40 Sodium 139 (137-145) mmol/L Potassium 3.6 (3.6-5.0) mmol/L Chloride 105.5 (98-107) mmol/L Carbon Dioxide 21 L (22-30) mmol/L BUN 109 H (9-20) mg/dL Creatinine 4.1 H D (0.8-1.3) mg/dL Glucose 172 H (75-100) mg/dL Calcium 7.5 L (8.4-10.2) mg/dL Adrenal panel 11/16/20 Range/Units 04:40 Sodium 139 (137-145) mmol/L Potassium 3.6 (3.6-5.0) mmol/L Chloride 105.5 (98-107) mmol/L Carbon Dioxide 21 L (22-30) mmol/L BUN 109 H (9-20) mg/dL Creatinine 4.1 H D (0.8-1.3) mg/dL Glucose 172 H (75-100) mg/dL Calcium 7.5 L (8.4-10.2) mg/dL Total Bilirubin 0.20 (0.1-1.2) mg/dL AST 41 H (5-40) units/L ALT 42 (7-56) units/L Alkaline Phosphatase 54 (35-129) units/L Total Protein 4.9 L (6.3-8.2) g/dL Albumin 1.7 L (3.9-5) g/dL
[2020-11-16] MEDS ORDERED: ALTEPLASE 2 MG INJ IV SCH (12:30)
--- NOTE | 2020-11-16 13:06 | Progress Note ---
Assessment and Plan Cultures: Sputum culture 11/03/2020 upper respiratory mechelle Urine culture 11/04/2020 negative Blood culture 11/04/2020 no growth today Tracheal aspirate 11/04/2020 Neisha albicans Assessment: 70-year-old male with history of hypertension, hypothyroidism, admitted on 10/23/2020 secondary to 2-day history of acute altered mental status with confusion and diminished cognition; noted to have a left MCA CVA and right leg acute thrombosis, now with worsening leukocytosis and on pressors: #Severe sepsis with septic shock: Likely secondary to acute thrombus of the right lower extremity complicated with compartment syndrome. Chest x-ray without any obvious pneumonia, shows b/l effusions #Possible bowel ischemia, intestinal pneumatosis: was taken to the OR, all viable bowel seen on direct inspection,? due to embolic phenomenon. #Acute CVA: MRI with acute infarction of the left MCA, repeat MRI with evolving changes. Neurology evaluated. #Acute right leg thromboses: Complicated with compartment syndrome s/p open thrombectomy of the right lower extremity and right lower extremity compartment syndrome fasciotomy on 11/02/2020. #STACEY: creat elevated. Renally adjust antibiotics. #Acute respiratory failure: Chest x-ray with pulmonary edema and b/l pleural effusions. SARS-CoV-2 PCR negative. #Cardiomyopathy: EF 35 to 40%. #Left atrial appendage thrombus #Anemia Recommendations: -Urine appears cloudy with sediment. UA and culture ordered -re-started IV Cefepime, renally dosed Yolanda Solano MD, FACP [facility] O: [phone] F: [phone] Subjective Date of service: 11/16/20 Principal diagnosis: CVA, Atrial Thrombus, Acute Limb Ischemia, Mesenteric Infarct Interval history: Low grade fever. On BiPAP. Urine appears cloudy and with sediment. Objective - Exam Narrative Exam: Physical Exam: Constitutional: Drowsy, on BiPAP Head, Ears, Nose: Normocephalic, atraumatic. External ears, nose normal Eyes: Conjunctivae/corneas clear. No icterus. No ptosis. Neck: Supple, no meningeal signs Cardiovascular: S1, S2 normal. Respiratory: Air entry decreased in bases GI: Soft, bowel sounds present, dressings present. Scrotal edema present Musculoskeletal: Anasarca, RLE in dressing. Skin: No rash or abscess Hem/Lymphatic: No palpable cervical or supraclavicular nodes. No lymphangitis Psych: No agitation Neurological: Drowsy - Constitutional Vitals: Vital Signs Temp Pulse Resp BP Pulse Ox 97.9 F 75 26 H 139/70 100 11/16/20 11:47 11/16/20 12:13 11/16/20 12:01 11/16/20 12:13 11/16/20 12:01 Temperature -Last 24 Hours Temperature 97.9 F Temperature 98.0 F Temperature 99.2 F Temperature 97.4 F Temperature 97.4 F Temperature 100.5 F Temperature 99.7 F Temperature 98.1 F - Labs CBC & Chem 7: 11/16/20 04:40 11/16/20 04:40 Labs: Abnormal lab results 11/15/20 11/15/20 11/15/20 Range/Units 17:28 23:22 23:24 WBC (4.5-11.0) K/mm3 RBC (3.65-5.03) M/mm3 Hgb (11.8-15.2) gm/dl Hct (35.5-45.6) % RDW (13.2-15.2) % PT (12.2-14.9) Sec. INR (0.87-1.13) Heparin Anti-Xa Level 0.26 L (0.3-0.7) U.I./ml ABG pH (7.320-7.450) POC ABG pCO2 (32.0-48.0) mmHg POC ABG pO2 (83-108) mmHg ABG Hemoglobin (12.0-17.5) ABG Sodium (136.0-145.0) mmol/L ABG Potassium (3.40-4.50) mmol/L ABG Chloride (98-107) mmol/L ABG Glucose (65-95) mg/dL Carbon Dioxide (22-30) mmol/L BUN (9-20) mg/dL Creatinine (0.8-1.3) mg/dL Glucose (75-100) mg/dL POC Glucose 138 H 138 H (70-105) mg/dL Calcium (8.4-10.2) mg/dL Magnesium (1.7-2.3) mg/dL AST (5-40) units/L Total Protein (6.3-8.2) g/dL Albumin (3.9-5) g/dL Arterial Blood Glucose (65-95) mg/dL Arterial Blood Ionized Calcium (4.6-5.3) mg/dL 11/16/20 11/16/20 11/16/20 Range/Units 04:40 04:40 04:40 WBC 16.3 H (4.5-11.0) K/mm3 RBC 2.49 L (3.65-5.03) M/mm3 Hgb 7.3 L (11.8-15.2) gm/dl Hct 22.1 L (35.5-45.6) % RDW 16.4 H (13.2-15.2) % PT 16.2 H (12.2-14.9) Sec. INR 1.32 H (0.87-1.13) Heparin Anti-Xa Level 0.24 L (0.3-0.7) U.I./ml ABG pH (7.320-7.450) POC ABG pCO2 (32.0-48.0) mmHg POC ABG pO2 (83-108) mmHg ABG Hemoglobin (12.0-17.5) ABG Sodium (136.0-145.0) mmol/L ABG Potassium (3.40-4.50) mmol/L ABG Chloride (98-107) mmol/L ABG Glucose (65-95) mg/dL Carbon Dioxide 21 L (22-30) mmol/L BUN 109 H (9-20) mg/dL Creatinine 4.1 H D (0.8-1.3) mg/dL Glucose 172 H (75-100) mg/dL POC Glucose (70-105) mg/dL Calcium 7.5 L (8.4-10.2) mg/dL Magnesium 2.70 H (1.7-2.3) mg/dL AST 41 H (5-40) units/L Total Protein 4.9 L (6.3-8.2) g/dL Albumin 1.7 L (3.9-5) g/dL Arterial Blood Glucose (65-95) mg/dL Arterial Blood Ionized Calcium (4.6-5.3) mg/dL 11/16/20 11/16/20 Range/Units 05:16 08:35 WBC (4.5-11.0) K/mm3 RBC (3.65-5.03) M/mm3 Hgb (11.8-15.2) gm/dl Hct (35.5-45.6) % RDW (13.2-15.2) % PT (12.2-14.9) Sec. INR (0.87-1.13) Heparin Anti-Xa Level (0.3-0.7) U.I./ml ABG pH 7.456 H (7.320-7.450) POC ABG pCO2 30.4 L (32.0-48.0) mmHg POC ABG pO2 115.9 H (83-108) mmHg ABG Hemoglobin 7.8 L (12.0-17.5) ABG Sodium 135.6 L (136.0-145.0) mmol/L ABG Potassium 3.2 L (3.40-4.50) mmol/L ABG Chloride 109.0 H (98-107) mmol/L ABG Glucose 175 H (65-95) mg/dL Carbon Dioxide (22-30) mmol/L BUN (9-20) mg/dL Creatinine (0.8-1.3) mg/dL Glucose (75-100) mg/dL POC Glucose 160 H (70-105) mg/dL Calcium (8.4-10.2) mg/dL Magnesium (1.7-2.3) mg/dL AST (5-40) units/L Total Protein (6.3-8.2) g/dL Albumin (3.9-5) g/dL Arterial Blood Glucose 175 H (65-95) mg/dL Arterial Blood Ionized Calcium 4.4 L (4.6-5.3) mg/dL
--- NOTE | 2020-11-16 13:08 | Progress Note ---
Assessment and Plan Acute hypoxemic respiratory failure. Acute embolic cerebrovascular accident. Acute limb ischemia, status post thrombectomy. Left atrial appendage. Acute congestive heart failure exacerbation. Obesity. History of hypothyroidism. Leukocytosis. Acute encephalopathy, toxic metabolic - trend H&H - prn NT suctioning & oral hygiene - continue Robinul and scopolamine - continue aspiration precautions, HOB > 40 degrees - continue BIPAP (03/29) scheduled qhs with prn daytime use for ventilatory assist - continue care as below otherwise; - continue low intensity Heparin I.V. and follow H&H - Keep NPO with NGT to LIS - complete antiinfective's per ID recommendation - azotemia per nephrology team - continue to wean supplemental oxygen for target O2 sat's > 90% acutely - continue lung protective strategies - continue bronchodilators with pulmonary hygiene per RT - wean per pulmonary driven protocols otherwise - avoid nephrotoxins, renally dose all medications - continue accuchecks with glycemic control per SSI (While critically ill target blood glucose of 140-180 mg/dL; avoid hypoglycemia) - continue to avoid benzodiazepine's, reduce the possibility of delirium - complete AB's per ID rec's - prn analgesia per CPOT score - Maintenance of sleep-wake cycle, avoid delirium - G.I. & VTE prophylaxis - PT/OT/ROM exercises - continue mobility protocols for pressure ulcer prophylaxis - Monitor hemodynamics closely - continue other care per attending / other consultants - discharge planning ongoing concurrently ..... doing a little better and will step down to IMCU .... Re-evaluate in am & prn CONDITION: CRITICAL PROGNOSIS: GUARDED CODE STATUS: FULL CODE The high probability of a clinically significant, sudden or life-threatening deterioration of the [respiratory, cardiovascular, renal, henatologic & neurologic] system(s) required my full and direct attention, intervention and personal management. The aggregate critical care time was [32] minutes without overlap. Time includes spent on; [x] Data Review and interpretation [x] Patient assessment and monitoring of vital signs [x] Documentation [x] Medication orders and management Subjective Date of service: 11/16/20 Principal diagnosis: CVA, Atrial Thrombus, Acute Limb Ischemia, Mesenteric Infarct Interval history: Patient is seen today for: Acute hypoxemic respiratory failure; Acute embolic CVA; Acute limb ischemia; Left atrial appendage; Acute CHF; Obesity; Acute encephalopathy, toxic metabolic Seen and examined at bedside; 24hour events reviewed; nursing and respiratory care staff consulted; no adverse overnight events reported to me; resting peacefully in bed; Objective Vital Signs - 12hr 11/16/20 11/16/20 11/16/20 01:31 01:55 02:01 Temperature 97.4 F L Pulse Rate 71 73 Pulse Rate [ From Monitor] Pulse Rate [ Right Posterior Tibial] Respiratory 34 H 37 H Rate Blood Pressure 111/64 160/83 O2 Sat by Pulse 100 100 Oximetry 11/16/20 11/16/20 11/16/20 02:31 03:00 03:01 Temperature Pulse Rate 68 72 72 Pulse Rate [ From Monitor] Pulse Rate [ Right Posterior Tibial] Respiratory 32 H 36 H 40 H Rate Blood Pressure 160/83 167/80 163/83 O2 Sat by Pulse 100 100 100 Oximetry 11/16/20 11/16/20 11/16/20 03:10 03:31 04:00 Temperature 99.2 F Pulse Rate 75 74 Pulse Rate [ From Monitor] Pulse Rate [ Right Posterior Tibial] Respiratory 40 H 42 H Rate Blood Pressure 163/83 167/80 O2 Sat by Pulse 100 100 Oximetry 11/16/20 11/16/20 11/16/20 04:25 04:31 05:01 Temperature Pulse Rate 74 68 Pulse Rate [ 68 From Monitor] Pulse Rate [ 68 Right Posterior Tibial] Respiratory 31 H 46 H 31 H Rate Blood Pressure 167/80 148/78 O2 Sat by Pulse 100 100 100 Oximetry 11/16/20 11/16/20 11/16/20 05:11 05:31 05:45 Temperature Pulse Rate 69 62 Pulse Rate [ 63 From Monitor] Pulse Rate [ 63 Right Posterior Tibial] Respiratory 31 H 30 H Rate Blood Pressure 148/78 148/78 O2 Sat by Pulse 100 100 Oximetry 11/16/20 11/16/20 11/16/20 06:00 06:31 07:00 Temperature 98.0 F Pulse Rate 66 65 67 Pulse Rate [ From Monitor] Pulse Rate [ Right Posterior Tibial] Respiratory 31 H 29 H 29 H Rate Blood Pressure 141/73 141/73 155/77 O2 Sat by Pulse 100 100 100 Oximetry 11/16/20 11/16/20 11/16/20 07:27 07:31 08:00 Temperature Pulse Rate 68 68 69 Pulse Rate [ From Monitor] Pulse Rate [ Right Posterior Tibial] Respiratory 29 H 29 H 30 H Rate Blood Pressure 155/77 155/77 149/70 O2 Sat by Pulse 100 100 100 Oximetry 11/16/20 11/16/20 11/16/20 08:31 09:01 09:31 Temperature Pulse Rate 68 72 71 Pulse Rate [ From Monitor] Pulse Rate [ Right Posterior Tibial] Respiratory 27 H 32 H 29 H Rate Blood Pressure 149/70 152/74 149/70 O2 Sat by Pulse 100 100 100 Oximetry 11/16/20 11/16/20 11/16/20 10:01 10:31 11:00 Temperature Pulse Rate 75 74 78 Pulse Rate [ From Monitor] Pulse Rate [ Right Posterior Tibial] Respiratory 27 H 26 H 28 H Rate Blood Pressure 147/78 156/73 O2 Sat by Pulse 100 100 100 Oximetry 11/16/20 11/16/20 11/16/20 11:31 11:47 12:00 Temperature 97.9 F Pulse Rate 73 68 Pulse Rate [ From Monitor] Pulse Rate [ Right Posterior Tibial] Respiratory 25 H Rate Blood Pressure 156/73 O2 Sat by Pulse 100 Oximetry 11/16/20 11/16/20 12:01 12:13 Temperature Pulse Rate 74 75 Pulse Rate [ From Monitor] Pulse Rate [ Right Posterior Tibial] Respiratory 26 H Rate Blood Pressure 139/70 139/70 O2 Sat by Pulse 100 Oximetry Constitutional: asleep, appears uncomfortable, other (elderly male with mildly increased respiratory effort at rest ) Eyes: non-icteric ENT: oropharynx moist, oropharyngeal exudate pre (less today), other (extubated) Neck: supple, no lymphadenopathy, no JVD Effort: mildly labored Ascultation: Bilateral: diminished breath sounds, rales (R>L base), rhonchi (and referred upper airway sounds) Percussion: Bilateral: not dull Cardiovascular: regular rate and rhythm, murmur noted (COLE) Gastrointestinal: hypoactive bowel sounds, non-tender, other (midline incision in white dressing) Integumentary: normal Extremities: no cyanosis, pink and warm, edema (RLExt), other (RLExt fasciotomy) Neurologic: pupils equal and round, CN II-XII normal, other (Right Hemiparesis) Psychiatric: other (patient is sleepy) CBC and BMP: 11/16/20 04:40 11/16/20 04:40 ABG, PT/INR, D-dimer: ABG ABG pH 7.456 (7.320-7.450) H 11/16/20 08:35 POC ABG pCO2 30.4 mmHg (32.0-48.0) L 11/16/20 08:35 POC ABG pO2 115.9 mmHg (83-108) H 11/16/20 08:35 POC ABG HCO3 20.9 11/16/20 08:35 ABG O2 Saturation 98.5 (0-100) 11/16/20 08:35 PT/INR, D-dimer PT 16.2 Sec. (12.2-14.9) H 11/16/20 04:40 INR 1.32 (0.87-1.13) H 11/16/20 04:40 D-Dimer 4139.61 ng/mlDDU (0-234) H 10/23/20 18:23 Abnormal lab findings: Abnormal Labs 10/23/20 10/23/20 10/23/20 13:32 18:23 18:23 WBC RBC Hgb Hct RDW Seg Neuts % (Manual) Lymphocytes % (Manual) Seg Neutrophils # Man Lymphocytes # (Manual) Monocytes # (Manual) PT INR APTT D-Dimer 4139.61 H Heparin Anti-Xa Level ABG pH POC ABG pCO2 POC ABG pO2 ABG Hemoglobin ABG Oxyhemoglobin ABG Sodium ABG Potassium ABG Chloride ABG Glucose Carboxyhemoglobin Sodium Potassium Chloride 109.1 H Carbon Dioxide BUN Creatinine Glucose POC Glucose Lactic Acid Calcium Ionized Calcium Phosphorus Magnesium AST Lactate Dehydrogenase 334 H C-Reactive Protein 2.50 H NT-Pro-B Natriuret Pep 5806 H Serum Total Protein Total Protein Albumin Bejhw-9-Xontszaae Gamma Globulins PEP Interpretation TSH Arterial Blood Glucose Arterial Blood Ionized Calcium Urine WBC (Auto) Crossmatch 10/23/20 10/23/20 10/26/20 18:23 18:23 05:34 WBC RBC Hgb Hct RDW Seg Neuts % (Manual) Lymphocytes % (Manual) Seg Neutrophils # Man Lymphocytes # (Manual) Monocytes # (Manual) PT INR APTT D-Dimer Heparin Anti-Xa Level ABG pH POC ABG pCO2 POC ABG pO2 ABG Hemoglobin ABG Oxyhemoglobin ABG Sodium ABG Potassium ABG Chloride ABG Glucose Carboxyhemoglobin Sodium Potassium Chloride Carbon Dioxide BUN 30 H Creatinine Glucose 120 H POC Glucose Lactic Acid Calcium Ionized Calcium Phosphorus Magnesium AST Lactate Dehydrogenase C-Reactive Protein NT-Pro-B Natriuret Pep Serum Total Protein Total Protein Albumin Balow-8-Bgomwtlub Gamma Globulins PEP Interpretation TSH 7.100 H 6.540 H Arterial Blood Glucose Arterial Blood Ionized Calcium Urine WBC (Auto) Crossmatch 10/27/20 10/28/20 11/02/20 08:55 05:25 07:17 WBC 15.8 H RBC Hgb Hct RDW Seg Neuts % (Manual) Lymphocytes % (Manual) Seg Neutrophils # Man Lymphocytes # (Manual) Monocytes # (Manual) PT INR APTT D-Dimer Heparin Anti-Xa Level ABG pH POC ABG pCO2 POC ABG pO2 ABG Hemoglobin ABG Oxyhemoglobin ABG Sodium ABG Potassium ABG Chloride ABG Glucose Carboxyhemoglobin Sodium Potassium Chloride Carbon Dioxide BUN 28 H 28 H Creatinine Glucose 124 H 110 H POC Glucose Lactic Acid Calcium 8.2 L Ionized Calcium Phosphorus Magnesium AST Lactate Dehydrogenase C-Reactive Protein NT-Pro-B Natriuret Pep Serum Total Protein Total Protein Albumin Fiiam-7-Dudkobmgd Gamma Globulins PEP Interpretation TSH Arterial Blood Glucose Arterial Blood Ionized Calcium Urine WBC (Auto) Crossmatch 11/02/20 11/02/20 11/02/20 07:17 15:00 15:06 WBC RBC Hgb 15.7 H Hct 47.5 H D RDW Seg Neuts % (Manual) Lymphocytes % (Manual) Seg Neutrophils # Man Lymphocytes # (Manual) Monocytes # (Manual) PT INR APTT D-Dimer Heparin Anti-Xa Level ABG pH POC ABG pCO2 POC ABG pO2 ABG Hemoglobin ABG Oxyhemoglobin ABG Sodium ABG Potassium ABG Chloride ABG Glucose Carboxyhemoglobin Sodium 136 L Potassium Chloride Carbon Dioxide BUN 33 H Creatinine Glucose 107 H POC Glucose Lactic Acid Calcium 7.9 L Ionized Calcium Phosphorus Magnesium AST Lactate Dehydrogenase C-Reactive Protein NT-Pro-B Natriuret Pep Serum Total Protein Total Protein Albumin Hwmcz-0-Mmnjksntw Gamma Globulins PEP Interpretation TSH Arterial Blood Glucose Arterial Blood Ionized Calcium Urine WBC (Auto) Crossmatch See Detail 11/02/20 11/02/20 11/02/20 19:55 21:25 22:28 WBC 21.8 H RBC Hgb Hct RDW Seg Neuts % (Manual) Lymphocytes % (Manual) Seg Neutrophils # Man Lymphocytes # (Manual) Monocytes # (Manual) PT 16.2 H INR 1.30 H APTT 106.0 H* D-Dimer Heparin Anti-Xa Level 1.63 H ABG pH POC ABG pCO2 POC ABG pO2 ABG Hemoglobin ABG Oxyhemoglobin ABG Sodium ABG Potassium ABG Chloride ABG Glucose Carboxyhemoglobin Sodium Potassium Chloride Carbon Dioxide BUN Creatinine Glucose POC Glucose Lactic Acid Calcium Ionized Calcium Phosphorus Magnesium AST Lactate Dehydrogenase C-Reactive Protein NT-Pro-B Natriuret Pep Serum Total Protein Total Protein Albumin Ocoob-1-Ecbxacgle Gamma Globulins PEP Interpretation TSH Arterial Blood Glucose Arterial Blood Ionized Calcium Urine WBC (Auto) Crossmatch 11/03/20 11/03/20 11/03/20 05:47 13:20 13:20 WBC 29.0 H RBC Hgb 10.4 L Hct 31.2 L D RDW Seg Neuts % (Manual) Lymphocytes % (Manual) Seg Neutrophils # Man Lymphocytes # (Manual) Monocytes # (Manual) PT INR APTT D-Dimer Heparin Anti-Xa Level < 0.10 L ABG pH POC ABG pCO2 POC ABG pO2 ABG Hemoglobin ABG Oxyhemoglobin ABG Sodium ABG Potassium ABG Chloride ABG Glucose Carboxyhemoglobin Sodium 134 L Potassium 5.9 H D Chloride Carbon Dioxide 17 L D BUN 47 H Creatinine 2.2 H D Glucose 188 H POC Glucose Lactic Acid Calcium 7.6 L Ionized Calcium Phosphorus Magnesium AST Lactate Dehydrogenase C-Reactive Protein NT-Pro-B Natriuret Pep Serum Total Protein Total Protein Albumin Kkujh-6-Pwuugnonx Gamma Globulins PEP Interpretation TSH Arterial Blood Glucose Arterial Blood Ionized Calcium Urine WBC (Auto) Crossmatch 11/03/20 11/03/20 11/03/20 13:20 16:11 20:01 WBC RBC Hgb Hct RDW Seg Neuts % (Manual) Lymphocytes % (Manual) Seg Neutrophils # Man Lymphocytes # (Manual) Monocytes # (Manual) PT INR APTT D-Dimer Heparin Anti-Xa Level ABG pH 7.289 L POC ABG pCO2 31.8 L POC ABG pO2 156.7 H 119.6 H ABG Hemoglobin 10.7 L 9.7 L ABG Oxyhemoglobin 98.2 H ABG Sodium 127.7 L 129.5 L ABG Potassium 5.8 H 5.9 H ABG Chloride ABG Glucose 190 H 174 H Carboxyhemoglobin 0.3 L 0.1 L Sodium Potassium Chloride Carbon Dioxide BUN Creatinine Glucose POC Glucose Lactic Acid 7.40 H* Calcium Ionized Calcium Phosphorus Magnesium AST Lactate Dehydrogenase C-Reactive Protein NT-Pro-B Natriuret Pep Serum Total Protein Total Protein Albumin Yvooa-0-Nvwmwmsoq Gamma Globulins PEP Interpretation TSH Arterial Blood Glucose 190 H 174 H Arterial Blood Ionized Calcium 4.3 L 4.3 L Urine WBC (Auto) Crossmatch 11/03/20 11/04/20 11/04/20 21:14 04:00 04:00 WBC 32.8 H RBC Hgb 11.7 L Hct 35.0 L RDW Seg Neuts % (Manual) 82.0 H Lymphocytes % (Manual) 10.0 L Seg Neutrophils # Man 26.9 H Lymphocytes # (Manual) Monocytes # (Manual) 2.3 H PT INR APTT D-Dimer Heparin Anti-Xa Level 0.73 H ABG pH POC ABG pCO2 POC ABG pO2 ABG Hemoglobin ABG Oxyhemoglobin ABG Sodium ABG Potassium ABG Chloride ABG Glucose Carboxyhemoglobin Sodium 133 L Potassium 5.7 H Chloride Carbon Dioxide 20 L BUN 57 H Creatinine 2.3 H Glucose 129 H POC Glucose Lactic Acid Calcium 7.2 L Ionized Calcium Phosphorus Magnesium AST Lactate Dehydrogenase C-Reactive Protein NT-Pro-B Natriuret Pep Serum Total Protein Total Protein Albumin Yqutv-4-Obgozphfn Gamma Globulins PEP Interpretation TSH Arterial Blood Glucose Arterial Blood Ionized Calcium Urine WBC (Auto) Crossmatch 11/04/20 11/04/20 11/04/20 07:57 11:00 11:55 WBC RBC Hgb Hct RDW Seg Neuts % (Manual) Lymphocytes % (Manual) Seg Neutrophils # Man Lymphocytes # (Manual) Monocytes # (Manual) PT INR APTT D-Dimer Heparin Anti-Xa Level ABG pH POC ABG pCO2 POC ABG pO2 132.7 H ABG Hemoglobin 11.5 L ABG Oxyhemoglobin ABG Sodium 130.6 L ABG Potassium 5.3 H ABG Chloride ABG Glucose 145 H Carboxyhemoglobin 0.2 L Sodium Potassium Chloride Carbon Dioxide BUN Creatinine Glucose POC Glucose 110 H Lactic Acid Calcium Ionized Calcium Phosphorus Magnesium AST Lactate Dehydrogenase C-Reactive Protein NT-Pro-B Natriuret Pep Serum Total Protein Total Protein Albumin Smydk-7-Mwswhaitc Gamma Globulins PEP Interpretation TSH Arterial Blood Glucose 145 H Arterial Blood Ionized Calcium 4.4 L Urine WBC (Auto) 19.0 H Crossmatch 11/04/20 11/04/20 11/04/20 13:01 13:01 17:40 WBC RBC Hgb Hct RDW Seg Neuts % (Manual) Lymphocytes % (Manual) Seg Neutrophils # Man Lymphocytes # (Manual) Monocytes # (Manual) PT INR APTT D-Dimer Heparin Anti-Xa Level 0.26 L ABG pH POC ABG pCO2 POC ABG pO2 ABG Hemoglobin ABG Oxyhemoglobin ABG Sodium ABG Potassium ABG Chloride ABG Glucose Carboxyhemoglobin Sodium Potassium Chloride Carbon Dioxide BUN Creatinine Glucose POC Glucose 135 H Lactic Acid Calcium Ionized Calcium Phosphorus Magnesium AST Lactate Dehydrogenase C-Reactive Protein 8.30 H NT-Pro-B Natriuret Pep Serum Total Protein Total Protein Albumin Aokbs-1-Bitpjmmir Gamma Globulins PEP Interpretation TSH Arterial Blood Glucose Arterial Blood Ionized Calcium Urine WBC (Auto) Crossmatch 11/04/20 11/04/20 11/05/20 19:55 23:20 00:53 WBC RBC Hgb 9.7 L 9.0 L Hct 28.3 L D 26.0 L RDW Seg Neuts % (Manual) Lymphocytes % (Manual) Seg Neutrophils # Man Lymphocytes # (Manual) Monocytes # (Manual) PT INR APTT D-Dimer Heparin Anti-Xa Level ABG pH POC ABG pCO2 POC ABG pO2 ABG Hemoglobin ABG Oxyhemoglobin ABG Sodium ABG Potassium ABG Chloride ABG Glucose Carboxyhemoglobin Sodium Potassium Chloride Carbon Dioxide BUN Creatinine Glucose POC Glucose 143 H Lactic Acid Calcium Ionized Calcium Phosphorus Magnesium AST Lactate Dehydrogenase C-Reactive Protein NT-Pro-B Natriuret Pep Serum Total Protein Total Protein Albumin Srssj-9-Kervtfsnr Gamma Globulins PEP Interpretation TSH Arterial Blood Glucose Arterial Blood Ionized Calcium Urine WBC (Auto) Crossmatch 11/05/20 11/05/20 11/05/20 02:16 03:16 03:37 WBC 33.5 H RBC 3.01 L Hgb 8.8 L Hct 25.6 L RDW Seg Neuts % (Manual) 93.5 H Lymphocytes % (Manual) 3.5 L Seg Neutrophils # Man 31.3 H Lymphocytes # (Manual) Monocytes # (Manual) 1.0 H PT INR APTT D-Dimer Heparin Anti-Xa Level 0.99 H ABG pH POC ABG pCO2 POC ABG pO2 131.3 H ABG Hemoglobin 9.2 L ABG Oxyhemoglobin ABG Sodium 131.6 L ABG Potassium ABG Chloride 110.0 H ABG Glucose 168 H Carboxyhemoglobin 0.3 L Sodium Potassium Chloride Carbon Dioxide BUN Creatinine Glucose POC Glucose Lactic Acid Calcium Ionized Calcium Phosphorus Magnesium AST Lactate Dehydrogenase C-Reactive Protein NT-Pro-B Natriuret Pep Serum Total Protein Total Protein Albumin Niskc-4-Csanovhtk Gamma Globulins PEP Interpretation TSH Arterial Blood Glucose 168 H Arterial Blood Ionized Calcium 4.4 L Urine WBC (Auto) Crossmatch 11/05/20 11/05/20 11/05/20 03:37 05:19 18:18 WBC RBC Hgb Hct RDW Seg Neuts % (Manual) Lymphocytes % (Manual) Seg Neutrophils # Man Lymphocytes # (Manual) Monocytes # (Manual) PT INR APTT D-Dimer Heparin Anti-Xa Level ABG pH POC ABG pCO2 POC ABG pO2 ABG Hemoglobin ABG Oxyhemoglobin ABG Sodium ABG Potassium ABG Chloride ABG Glucose Carboxyhemoglobin Sodium Potassium Chloride 109.5 H Carbon Dioxide BUN 55 H Creatinine 2.1 H Glucose 157 H POC Glucose 142 H 124 H Lactic Acid Calcium 7.0 L Ionized Calcium Phosphorus Magnesium AST Lactate Dehydrogenase C-Reactive Protein NT-Pro-B Natriuret Pep Serum Total Protein Total Protein Albumin Bwejf-2-Gbtapdigs Gamma Globulins PEP Interpretation TSH Arterial Blood Glucose Arterial Blood Ionized Calcium Urine WBC (Auto) Crossmatch 11/05/20 11/05/20 11/05/20 19:00 21:20 23:30 WBC RBC Hgb Hct RDW Seg Neuts % (Manual) Lymphocytes % (Manual) Seg Neutrophils # Man Lymphocytes # (Manual) Monocytes # (Manual) PT INR APTT 63.8 H* D-Dimer Heparin Anti-Xa Level ABG pH POC ABG pCO2 POC ABG pO2 ABG Hemoglobin ABG Oxyhemoglobin ABG Sodium ABG Potassium ABG Chloride ABG Glucose Carboxyhemoglobin Sodium Potassium Chloride Carbon Dioxide BUN Creatinine Glucose POC Glucose 156 H Lactic Acid Calcium Ionized Calcium Phosphorus Magnesium AST Lactate Dehydrogenase C-Reactive Protein NT-Pro-B Natriuret Pep Serum Total Protein Total Protein 4.3 L Albumin 2.1 L Sjmnj-4-Cwkzlbrxu Gamma Globulins PEP Interpretation TSH Arterial Blood Glucose Arterial Blood Ionized Calcium Urine WBC (Auto) Crossmatch 11/06/20 11/06/20 11/06/20 02:54 04:00 04:00 WBC 33.0 H RBC 2.68 L Hgb 7.7 L Hct 23.3 L RDW Seg Neuts % (Manual) 95.0 H Lymphocytes % (Manual) 2.0 L Seg Neutrophils # Man 31.4 H Lymphocytes # (Manual) 0.7 L Monocytes # (Manual) 1.0 H PT INR APTT D-Dimer Heparin Anti-Xa Level ABG pH POC ABG pCO2 POC ABG pO2 116.5 H ABG Hemoglobin 9.7 L ABG Oxyhemoglobin ABG Sodium 134.5 L ABG Potassium 5.0 H ABG Chloride 109.0 H ABG Glucose 165 H Carboxyhemoglobin 0.3 L Sodium Potassium 5.1 H Chloride 108.6 H Carbon Dioxide BUN 62 H Creatinine 2.2 H Glucose 155 H POC Glucose Lactic Acid Calcium 7.3 L Ionized Calcium Phosphorus Magnesium AST Lactate Dehydrogenase C-Reactive Protein NT-Pro-B Natriuret Pep Serum Total Protein Total Protein Albumin Vkqqb-6-Jcvdegkkf Gamma Globulins PEP Interpretation TSH Arterial Blood Glucose 165 H Arterial Blood Ionized Calcium 4.5 L Urine WBC (Auto) Crossmatch 11/06/20 11/06/20 11/06/20 05:17 06:00 17:26 WBC RBC Hgb Hct RDW Seg Neuts % (Manual) Lymphocytes % (Manual) Seg Neutrophils # Man Lymphocytes # (Manual) Monocytes # (Manual) PT INR APTT D-Dimer Heparin Anti-Xa Level ABG pH POC ABG pCO2 POC ABG pO2 ABG Hemoglobin ABG Oxyhemoglobin ABG Sodium ABG Potassium ABG Chloride ABG Glucose Carboxyhemoglobin Sodium Potassium Chloride Carbon Dioxide BUN Creatinine Glucose POC Glucose 147 H 132 H Lactic Acid Calcium Ionized Calcium 4.7 L Phosphorus Magnesium AST Lactate Dehydrogenase C-Reactive Protein NT-Pro-B Natriuret Pep Serum Total Protein Total Protein Albumin Sjzhs-2-Qodwbeogr Gamma Globulins PEP Interpretation TSH Arterial Blood Glucose Arterial Blood Ionized Calcium Urine WBC (Auto) Crossmatch 11/06/20 11/07/20 11/07/20 Unknown 04:00 04:00 WBC 28.9 H RBC 2.44 L Hgb 7.1 L Hct 21.2 L RDW 15.4 H Seg Neuts % (Manual) 95.0 H Lymphocytes % (Manual) 3.0 L Seg Neutrophils # Man 27.5 H Lymphocytes # (Manual) 0.9 L Monocytes # (Manual) PT INR APTT D-Dimer Heparin Anti-Xa Level ABG pH POC ABG pCO2 POC ABG pO2 ABG Hemoglobin ABG Oxyhemoglobin ABG Sodium ABG Potassium ABG Chloride ABG Glucose Carboxyhemoglobin Sodium Potassium 5.3 H Chloride 108.2 H Carbon Dioxide BUN 77 H Creatinine 2.4 H Glucose 144 H POC Glucose Lactic Acid Calcium 7.5 L Ionized Calcium Phosphorus Magnesium AST Lactate Dehydrogenase C-Reactive Protein NT-Pro-B Natriuret Pep Serum Total Protein 4.1 L Total Protein Albumin 2.2 L Gvjnz-9-Scoecwuvi 0.5 H Gamma Globulins 0.4 L PEP Interpretation see below H TSH Arterial Blood Glucose Arterial Blood Ionized Calcium Urine WBC (Auto) Crossmatch 11/07/20 11/07/20 11/07/20 04:00 12:06 17:29 WBC RBC Hgb Hct RDW Seg Neuts % (Manual) Lymphocytes % (Manual) Seg Neutrophils # Man Lymphocytes # (Manual) Monocytes # (Manual) PT INR APTT D-Dimer Heparin Anti-Xa Level ABG pH POC ABG pCO2 POC ABG pO2 130.1 H ABG Hemoglobin 7.5 L ABG Oxyhemoglobin ABG Sodium ABG Potassium 5.0 H ABG Chloride 110.0 H ABG Glucose 152 H Carboxyhemoglobin Sodium Potassium Chloride Carbon Dioxide BUN Creatinine Glucose POC Glucose 144 H 117 H Lactic Acid Calcium Ionized Calcium Phosphorus Magnesium AST Lactate Dehydrogenase C-Reactive Protein NT-Pro-B Natriuret Pep Serum Total Protein Total Protein Albumin Eulrf-1-Ruabixivn Gamma Globulins PEP Interpretation TSH Arterial Blood Glucose 152 H Arterial Blood Ionized Calcium Urine WBC (Auto) Crossmatch 11/08/20 11/08/20 11/08/20 03:38 04:39 04:39 WBC 23.1 H RBC 2.37 L Hgb 6.9 L Hct 20.8 L RDW 15.3 H Seg Neuts % (Manual) 95.5 H Lymphocytes % (Manual) 2.5 L Seg Neutrophils # Man 22.1 H Lymphocytes # (Manual) 0.6 L Monocytes # (Manual) PT INR APTT D-Dimer Heparin Anti-Xa Level ABG pH 7.494 H POC ABG pCO2 POC ABG pO2 111.5 H ABG Hemoglobin 6.7 L ABG Oxyhemoglobin ABG Sodium ABG Potassium 4.9 H ABG Chloride 112.0 H ABG Glucose 153 H Carboxyhemoglobin Sodium Potassium 5.1 H Chloride 111.3 H Carbon Dioxide BUN 86 H Creatinine 2.5 H Glucose 142 H POC Glucose Lactic Acid Calcium 7.6 L Ionized Calcium Phosphorus Magnesium AST Lactate Dehydrogenase C-Reactive Protein NT-Pro-B Natriuret Pep Serum Total Protein Total Protein Albumin Sqnmc-7-Zlrmbhdub Gamma Globulins PEP Interpretation TSH Arterial Blood Glucose 153 H Arterial Blood Ionized Calcium 4.5 L Urine WBC (Auto) Crossmatch 11/08/20 11/08/20 11/08/20 11:13 11:15 16:30 WBC RBC Hgb 8.0 L Hct 23.6 L RDW Seg Neuts % (Manual) Lymphocytes % (Manual) Seg Neutrophils # Man Lymphocytes # (Manual) Monocytes # (Manual) PT INR APTT D-Dimer Heparin Anti-Xa Level ABG pH POC ABG pCO2 POC ABG pO2 ABG Hemoglobin ABG Oxyhemoglobin ABG Sodium ABG Potassium ABG Chloride ABG Glucose Carboxyhemoglobin Sodium Potassium Chloride Carbon Dioxide BUN Creatinine Glucose POC Glucose 125 H Lactic Acid Calcium Ionized Calcium Phosphorus Magnesium AST Lactate Dehydrogenase C-Reactive Protein NT-Pro-B Natriuret Pep Serum Total Protein Total Protein Albumin Zacye-5-Gmmnlxjyr Gamma Globulins PEP Interpretation TSH Arterial Blood Glucose Arterial Blood Ionized Calcium Urine WBC (Auto) Crossmatch See Detail 11/08/20 11/08/20 11/09/20 19:11 22:20 03:21 WBC 19.0 H RBC 2.51 L Hgb 7.5 L Hct 22.2 L RDW 15.3 H Seg Neuts % (Manual) 89.0 H Lymphocytes % (Manual) 6.0 L Seg Neutrophils # Man 16.9 H Lymphocytes # (Manual) 1.1 L Monocytes # (Manual) 1.0 H PT INR APTT D-Dimer Heparin Anti-Xa Level ABG pH POC ABG pCO2 POC ABG pO2 ABG Hemoglobin ABG Oxyhemoglobin ABG Sodium ABG Potassium ABG Chloride ABG Glucose Carboxyhemoglobin Sodium Potassium Chloride Carbon Dioxide BUN Creatinine Glucose POC Glucose 107 H Lactic Acid Calcium Ionized Calcium Phosphorus Magnesium AST Lactate Dehydrogenase C-Reactive Protein NT-Pro-B Natriuret Pep Serum Total Protein Total Protein 3.8 L Albumin 2.2 L Ikyge-0-Xkqeomsrb Gamma Globulins PEP Interpretation TSH Arterial Blood Glucose Arterial Blood Ionized Calcium Urine WBC (Auto) Crossmatch 11/09/20 11/09/20 11/09/20 03:21 03:21 03:43 WBC RBC Hgb Hct RDW Seg Neuts % (Manual) Lymphocytes % (Manual) Seg Neutrophils # Man Lymphocytes # (Manual) Monocytes # (Manual) PT INR APTT 50.8 H D-Dimer Heparin Anti-Xa Level ABG pH POC ABG pCO2 POC ABG pO2 ABG Hemoglobin ABG Oxyhemoglobin ABG Sodium ABG Potassium ABG Chloride ABG Glucose Carboxyhemoglobin Sodium Potassium Chloride 109.1 H Carbon Dioxide BUN 86 H Creatinine 2.5 H Glucose 140 H POC Glucose 117 H Lactic Acid Calcium 6.9 L Ionized Calcium Phosphorus Magnesium AST Lactate Dehydrogenase C-Reactive Protein NT-Pro-B Natriuret Pep Serum Total Protein Total Protein Albumin Rxhev-6-Opjzkmzda Gamma Globulins PEP Interpretation TSH Arterial Blood Glucose Arterial Blood Ionized Calcium Urine WBC (Auto) Crossmatch 11/09/20 11/09/20 11/09/20 09:22 17:04 22:08 WBC RBC Hgb Hct RDW Seg Neuts % (Manual) Lymphocytes % (Manual) Seg Neutrophils # Man Lymphocytes # (Manual) Monocytes # (Manual) PT INR APTT D-Dimer Heparin Anti-Xa Level ABG pH POC ABG pCO2 POC ABG pO2 ABG Hemoglobin ABG Oxyhemoglobin ABG Sodium ABG Potassium ABG Chloride ABG Glucose Carboxyhemoglobin Sodium Potassium Chloride Carbon Dioxide BUN Creatinine Glucose POC Glucose 111 H 106 H 112 H Lactic Acid Calcium Ionized Calcium Phosphorus Magnesium AST Lactate Dehydrogenase C-Reactive Protein NT-Pro-B Natriuret Pep Serum Total Protein Total Protein Albumin Janri-6-Dmoysojwe Gamma Globulins PEP Interpretation TSH Arterial Blood Glucose Arterial Blood Ionized Calcium Urine WBC (Auto) Crossmatch 11/10/20 11/10/20 11/10/20 05:30 05:30 11:50 WBC RBC Hgb 6.6 L Hct 19.9 L* RDW Seg Neuts % (Manual) Lymphocytes % (Manual) Seg Neutrophils # Man Lymphocytes # (Manual) Monocytes # (Manual) PT INR APTT D-Dimer Heparin Anti-Xa Level ABG pH POC ABG pCO2 POC ABG pO2 ABG Hemoglobin ABG Oxyhemoglobin ABG Sodium ABG Potassium ABG Chloride ABG Glucose Carboxyhemoglobin Sodium Potassium Chloride 111.3 H Carbon Dioxide BUN 74 H Creatinine 2.3 H Glucose 119 H POC Glucose 108 H Lactic Acid Calcium 7.1 L Ionized Calcium Phosphorus Magnesium 4.40 H AST Lactate Dehydrogenase C-Reactive Protein NT-Pro-B Natriuret Pep Serum Total Protein Total Protein Albumin Hxxcm-9-Epubuezfc Gamma Globulins PEP Interpretation TSH Arterial Blood Glucose Arterial Blood Ionized Calcium Urine WBC (Auto) Crossmatch 11/10/20 11/10/20 11/10/20 17:50 23:12 23:17 WBC RBC Hgb 9.5 L 9.1 L Hct 28.2 L D 27.5 L RDW Seg Neuts % (Manual) Lymphocytes % (Manual) Seg Neutrophils # Man Lymphocytes # (Manual) Monocytes # (Manual) PT INR APTT D-Dimer Heparin Anti-Xa Level ABG pH POC ABG pCO2 POC ABG pO2 ABG Hemoglobin ABG Oxyhemoglobin ABG Sodium ABG Potassium ABG Chloride ABG Glucose Carboxyhemoglobin Sodium Potassium Chloride Carbon Dioxide BUN Creatinine Glucose POC Glucose 107 H Lactic Acid Calcium Ionized Calcium Phosphorus Magnesium AST Lactate Dehydrogenase C-Reactive Protein NT-Pro-B Natriuret Pep Serum Total Protein Total Protein Albumin Gmonu-6-Lqgpmfeen Gamma Globulins PEP Interpretation TSH Arterial Blood Glucose Arterial Blood Ionized Calcium Urine WBC (Auto) Crossmatch 11/11/20 11/11/20 11/11/20 05:16 05:30 08:35 WBC 17.4 H RBC 3.17 L Hgb 9.5 L Hct 29.0 L RDW 16.2 H Seg Neuts % (Manual) Lymphocytes % (Manual) Seg Neutrophils # Man Lymphocytes # (Manual) Monocytes # (Manual) PT INR APTT D-Dimer Heparin Anti-Xa Level ABG pH POC ABG pCO2 POC ABG pO2 ABG Hemoglobin ABG Oxyhemoglobin ABG Sodium ABG Potassium ABG Chloride ABG Glucose Carboxyhemoglobin Sodium Potassium Chloride 107.4 H Carbon Dioxide BUN 64 H Creatinine 2.1 H Glucose 148 H POC Glucose 127 H Lactic Acid Calcium 6.7 L Ionized Calcium Phosphorus Magnesium 3.90 H AST Lactate Dehydrogenase C-Reactive Protein NT-Pro-B Natriuret Pep Serum Total Protein Total Protein Albumin Nrfff-1-Kdodahgud Gamma Globulins PEP Interpretation TSH Arterial Blood Glucose Arterial Blood Ionized Calcium Urine WBC (Auto) Crossmatch 11/11/20 11/11/20 11/11/20 09:14 10:10 11:45 WBC RBC Hgb 9.2 L Hct 27.2 L RDW Seg Neuts % (Manual) Lymphocytes % (Manual) Seg Neutrophils # Man Lymphocytes # (Manual) Monocytes # (Manual) PT INR APTT D-Dimer Heparin Anti-Xa Level ABG pH POC ABG pCO2 POC ABG pO2 ABG Hemoglobin ABG Oxyhemoglobin ABG Sodium 135.8 L ABG Potassium ABG Chloride 111.0 H ABG Glucose 152 H Carboxyhemoglobin Sodium Potassium Chloride Carbon Dioxide BUN Creatinine Glucose POC Glucose 139 H Lactic Acid Calcium Ionized Calcium Phosphorus Magnesium AST Lactate Dehydrogenase C-Reactive Protein NT-Pro-B Natriuret Pep Serum Total Protein Total Protein Albumin Dafex-7-Hzfijabzh Gamma Globulins PEP Interpretation TSH Arterial Blood Glucose 152 H Arterial Blood Ionized Calcium 4.2 L Urine WBC (Auto) Crossmatch 11/11/20 11/11/20 11/11/20 14:41 17:09 21:12 WBC RBC Hgb 8.7 L Hct 25.8 L RDW Seg Neuts % (Manual) Lymphocytes % (Manual) Seg Neutrophils # Man Lymphocytes # (Manual) Monocytes # (Manual) PT INR APTT D-Dimer Heparin Anti-Xa Level ABG pH POC ABG pCO2 POC ABG pO2 ABG Hemoglobin ABG Oxyhemoglobin ABG Sodium ABG Potassium ABG Chloride ABG Glucose Carboxyhemoglobin Sodium Potassium Chloride Carbon Dioxide BUN Creatinine Glucose POC Glucose 110 H 115 H Lactic Acid Calcium Ionized Calcium Phosphorus Magnesium AST Lactate Dehydrogenase C-Reactive Protein NT-Pro-B Natriuret Pep Serum Total Protein Total Protein Albumin Nuonl-7-Reqlrpevl Gamma Globulins PEP Interpretation TSH Arterial Blood Glucose Arterial Blood Ionized Calcium Urine WBC (Auto) Crossmatch 11/11/20 11/12/20 11/12/20 23:02 03:10 03:38 WBC RBC Hgb Hct RDW Seg Neuts % (Manual) Lymphocytes % (Manual) Seg Neutrophils # Man Lymphocytes # (Manual) Monocytes # (Manual) PT INR APTT D-Dimer Heparin Anti-Xa Level ABG pH POC ABG pCO2 POC ABG pO2 ABG Hemoglobin ABG Oxyhemoglobin ABG Sodium ABG Potassium ABG Chloride ABG Glucose Carboxyhemoglobin Sodium Potassium Chloride 109.8 H Carbon Dioxide BUN 64 H Creatinine 2.0 H Glucose 129 H POC Glucose 109 H 107 H Lactic Acid Calcium 6.7 L Ionized Calcium Phosphorus 2.10 L D Magnesium 3.50 H AST Lactate Dehydrogenase C-Reactive Protein NT-Pro-B Natriuret Pep Serum Total Protein Total Protein Albumin Yamnz-8-Rtxwcfolq Gamma Globulins PEP Interpretation TSH Arterial Blood Glucose Arterial Blood Ionized Calcium Urine WBC (Auto) Crossmatch 11/12/20 11/12/20 11/12/20 03:38 11:44 13:49 WBC 15.2 H RBC 2.70 L Hgb 8.1 L Hct 24.3 L RDW 16.0 H Seg Neuts % (Manual) Lymphocytes % (Manual) Seg Neutrophils # Man Lymphocytes # (Manual) Monocytes # (Manual) PT INR APTT D-Dimer Heparin Anti-Xa Level ABG pH POC ABG pCO2 POC ABG pO2 ABG Hemoglobin 8.6 L ABG Oxyhemoglobin ABG Sodium ABG Potassium ABG Chloride 111.0 H ABG Glucose 135 H Carboxyhemoglobin Sodium Potassium Chloride Carbon Dioxide BUN Creatinine Glucose POC Glucose 114 H Lactic Acid Calcium Ionized Calcium Phosphorus Magnesium AST Lactate Dehydrogenase C-Reactive Protein NT-Pro-B Natriuret Pep Serum Total Protein Total Protein Albumin Tkxsy-7-Rjxbntglh Gamma Globulins PEP Interpretation TSH Arterial Blood Glucose 135 H Arterial Blood Ionized Calcium 4.3 L Urine WBC (Auto) Crossmatch 11/12/20 11/12/20 11/12/20 17:05 17:11 23:16 WBC RBC Hgb Hct RDW Seg Neuts % (Manual) Lymphocytes % (Manual) Seg Neutrophils # Man Lymphocytes # (Manual) Monocytes # (Manual) PT INR APTT D-Dimer Heparin Anti-Xa Level 0.25 L ABG pH POC ABG pCO2 POC ABG pO2 ABG Hemoglobin ABG Oxyhemoglobin ABG Sodium ABG Potassium ABG Chloride ABG Glucose Carboxyhemoglobin Sodium Potassium Chloride Carbon Dioxide BUN Creatinine Glucose POC Glucose 117 H 116 H Lactic Acid Calcium Ionized Calcium Phosphorus Magnesium AST Lactate Dehydrogenase C-Reactive Protein NT-Pro-B Natriuret Pep Serum Total Protein Total Protein Albumin Gssck-5-Tznzbxjbp Gamma Globulins PEP Interpretation TSH Arterial Blood Glucose Arterial Blood Ionized Calcium Urine WBC (Auto) Crossmatch 11/13/20 11/13/20 11/13/20 05:09 05:30 05:30 WBC RBC Hgb 7.8 L Hct 22.6 L RDW Seg Neuts % (Manual) Lymphocytes % (Manual) Seg Neutrophils # Man Lymphocytes # (Manual) Monocytes # (Manual) PT INR APTT D-Dimer Heparin Anti-Xa Level ABG pH POC ABG pCO2 POC ABG pO2 ABG Hemoglobin ABG Oxyhemoglobin ABG Sodium ABG Potassium ABG Chloride ABG Glucose Carboxyhemoglobin Sodium Potassium Chloride 109.4 H Carbon Dioxide BUN 65 H Creatinine 2.0 H Glucose 137 H POC Glucose 116 H Lactic Acid Calcium 7.0 L Ionized Calcium Phosphorus 1.60 L D Magnesium 3.10 H AST Lactate Dehydrogenase C-Reactive Protein NT-Pro-B Natriuret Pep Serum Total Protein Total Protein Albumin Dotde-5-Cwvewzygg Gamma Globulins PEP Interpretation TSH Arterial Blood Glucose Arterial Blood Ionized Calcium Urine WBC (Auto) Crossmatch 11/13/20 11/13/20 11/13/20 08:16 12:26 17:33 WBC 12.8 H RBC 2.60 L Hgb 7.6 L Hct 23.0 L RDW 15.8 H Seg Neuts % (Manual) Lymphocytes % (Manual) Seg Neutrophils # Man Lymphocytes # (Manual) Monocytes # (Manual) PT INR APTT D-Dimer Heparin Anti-Xa Level ABG pH POC ABG pCO2 POC ABG pO2 ABG Hemoglobin ABG Oxyhemoglobin ABG Sodium ABG Potassium ABG Chloride ABG Glucose Carboxyhemoglobin Sodium Potassium Chloride Carbon Dioxide BUN Creatinine Glucose POC Glucose 106 H 124 H Lactic Acid Calcium Ionized Calcium Phosphorus Magnesium AST Lactate Dehydrogenase C-Reactive Protein NT-Pro-B Natriuret Pep Serum Total Protein Total Protein Albumin Xebjr-4-Bamutbfyl Gamma Globulins PEP Interpretation TSH Arterial Blood Glucose Arterial Blood Ionized Calcium Urine WBC (Auto) Crossmatch 11/13/20 11/13/20 11/13/20 18:31 20:35 20:35 WBC RBC Hgb 7.6 L Hct 22.1 L RDW Seg Neuts % (Manual) Lymphocytes % (Manual) Seg Neutrophils # Man Lymphocytes # (Manual) Monocytes # (Manual) PT INR APTT D-Dimer Heparin Anti-Xa Level 0.12 L ABG pH POC ABG pCO2 POC ABG pO2 ABG Hemoglobin ABG Oxyhemoglobin ABG Sodium ABG Potassium ABG Chloride ABG Glucose Carboxyhemoglobin Sodium Potassium Chloride Carbon Dioxide BUN Creatinine Glucose POC Glucose Lactic Acid Calcium Ionized Calcium Phosphorus Magnesium AST Lactate Dehydrogenase C-Reactive Protein NT-Pro-B Natriuret Pep Serum Total Protein Total Protein Albumin Blegm-6-Rautv[place]py Gamma Globulins PEP Interpretation TSH Arterial Blood Glucose Arterial Blood Ionized Calcium Urine WBC (Auto) Crossmatch See Detail 11/13/20 11/14/20 11/14/20 Unknown 02:45 04:00 WBC RBC Hgb Hct RDW Seg Neuts % (Manual) Lymphocytes % (Manual) Seg Neutrophils # Man Lymphocytes # (Manual) Monocytes # (Manual) PT 15.7 H INR 1.27 H APTT 60.6 H* D-Dimer Heparin Anti-Xa Level 0.18 L ABG pH POC ABG pCO2 POC ABG pO2 ABG Hemoglobin ABG Oxyhemoglobin ABG Sodium ABG Potassium ABG Chloride ABG Glucose Carboxyhemoglobin Sodium Potassium 3.2 L Chloride 108.0 H Carbon Dioxide BUN 69 H Creatinine 2.2 H Glucose 126 H POC Glucose Lactic Acid Calcium 6.9 L Ionized Calcium Phosphorus Magnesium 2.90 H AST Lactate Dehydrogenase C-Reactive Protein NT-Pro-B Natriuret Pep Serum Total Protein Total Protein Albumin Fqxjt-5-Hyrzguhfh Gamma Globulins PEP Interpretation TSH Arterial Blood Glucose Arterial Blood Ionized Calcium Urine WBC (Auto) Crossmatch 11/14/20 11/14/20 11/14/20 04:00 05:26 12:18 WBC RBC 2.34 L Hgb 7.2 L Hct 20.8 L RDW 15.9 H Seg Neuts % (Manual) Lymphocytes % (Manual) Seg Neutrophils # Man Lymphocytes # (Manual) Monocytes # (Manual) PT INR APTT D-Dimer Heparin Anti-Xa Level ABG pH POC ABG pCO2 POC ABG pO2 ABG Hemoglobin ABG Oxyhemoglobin ABG Sodium ABG Potassium ABG Chloride ABG Glucose Carboxyhemoglobin Sodium Potassium Chloride Carbon Dioxide BUN Creatinine Glucose POC Glucose 120 H 129 H Lactic Acid Calcium Ionized Calcium Phosphorus Magnesium AST Lactate Dehydrogenase C-Reactive Protein NT-Pro-B Natriuret Pep Serum Total Protein Total Protein Albumin Wpyfi-2-Kzvpagicx Gamma Globulins PEP Interpretation TSH Arterial Blood Glucose Arterial Blood Ionized Calcium Urine WBC (Auto) Crossmatch 11/14/20 11/14/20 11/15/20 23:09 23:24 05:16 WBC RBC Hgb Hct RDW Seg Neuts % (Manual) Lymphocytes % (Manual) Seg Neutrophils # Man Lymphocytes # (Manual) Monocytes # (Manual) PT INR APTT D-Dimer Heparin Anti-Xa Level ABG pH 7.453 H POC ABG pCO2 POC ABG pO2 118.0 H ABG Hemoglobin 7.7 L ABG Oxyhemoglobin ABG Sodium ABG Potassium ABG Chloride 111.0 H ABG Glucose 149 H Carboxyhemoglobin Sodium Potassium Chloride Carbon Dioxide BUN Creatinine Glucose POC Glucose 128 H 146 H Lactic Acid Calcium Ionized Calcium Phosphorus Magnesium AST Lactate Dehydrogenase C-Reactive Protein NT-Pro-B Natriuret Pep Serum Total Protein Total Protein Albumin Fpayq-1-Rycptmgzv Gamma Globulins PEP Interpretation TSH Arterial Blood Glucose 149 H Arterial Blood Ionized Calcium 4.3 L Urine WBC (Auto) Crossmatch 11/15/20 11/15/20 11/15/20 11:48 17:28 23:22 WBC RBC Hgb Hct RDW Seg Neuts % (Manual) Lymphocytes % (Manual) Seg Neutrophils # Man Lymphocytes # (Manual) Monocytes # (Manual) PT INR APTT D-Dimer Heparin Anti-Xa Level ABG pH POC ABG pCO2 POC ABG pO2 ABG Hemoglobin ABG Oxyhemoglobin ABG Sodium ABG Potassium ABG Chloride ABG Glucose Carboxyhemoglobin Sodium Potassium Chloride Carbon Dioxide BUN Creatinine Glucose POC Glucose 125 H 138 H 138 H Lactic Acid Calcium Ionized Calcium Phosphorus Magnesium AST Lactate Dehydrogenase C-Reactive Protein NT-Pro-B Natriuret Pep Serum Total Protein Total Protein Albumin Tkvfd-2-Zrlrknitj Gamma Globulins PEP Interpretation TSH Arterial Blood Glucose Arterial Blood Ionized Calcium Urine WBC (Auto) Crossmatch 11/15/20 11/15/20 11/15/20 23:24 Unknown Unknown WBC 12.1 H RBC 2.43 L Hgb 7.3 L Hct 21.5 L RDW 16.1 H Seg Neuts % (Manual) Lymphocytes % (Manual) Seg Neutrophils # Man Lymphocytes # (Manual) Monocytes # (Manual) PT INR APTT D-Dimer Heparin Anti-Xa Level 0.26 L ABG pH POC ABG pCO2 POC ABG pO2 ABG Hemoglobin ABG Oxyhemoglobin ABG Sodium ABG Potassium ABG Chloride ABG Glucose Carboxyhemoglobin Sodium Potassium Chloride 108.0 H Carbon Dioxide BUN 80 H Creatinine 2.7 H Glucose 152 H POC Glucose Lactic Acid Calcium 7.2 L Ionized Calcium Phosphorus Magnesium 2.60 H AST Lactate Dehydrogenase C-Reactive Protein NT-Pro-B Natriuret Pep Serum Total Protein Total Protein Albumin Pqvfo-0-Youfgdlyq Gamma Globulins PEP Interpretation TSH Arterial Blood Glucose Arterial Blood Ionized Calcium Urine WBC (Auto) Crossmatch 11/16/20 11/16/20 11/16/20 04:40 04:40 04:40 WBC 16.3 H RBC 2.49 L Hgb 7.3 L Hct 22.1 L RDW 16.4 H Seg Neuts % (Manual) Lymphocytes % (Manual) Seg Neutrophils # Man Lymphocytes # (Manual) Monocytes # (Manual) PT 16.2 H INR 1.32 H APTT D-Dimer Heparin Anti-Xa Level 0.24 L ABG pH POC ABG pCO2 POC ABG pO2 ABG Hemoglobin ABG Oxyhemoglobin ABG Sodium ABG Potassium ABG Chloride ABG Glucose Carboxyhemoglobin Sodium Potassium Chloride Carbon Dioxide 21 L BUN 109 H Creatinine 4.1 H D Glucose 172 H POC Glucose Lactic Acid Calcium 7.5 L Ionized Calcium Phosphorus Magnesium 2.70 H AST 41 H Lactate Dehydrogenase C-Reactive Protein NT-Pro-B Natriuret Pep Serum Total Protein Total Protein 4.9 L Albumin 1.7 L Rzfwz-3-Gwfnmsuck Gamma Globulins PEP Interpretation TSH Arterial Blood Glucose Arterial Blood Ionized Calcium Urine WBC (Auto) Crossmatch 11/16/20 11/16/20 05:16 08:35 WBC RBC Hgb Hct RDW Seg Neuts % (Manual) Lymphocytes % (Manual) Seg Neutrophils # Man Lymphocytes # (Manual) Monocytes # (Manual) PT INR APTT D-Dimer Heparin Anti-Xa Level ABG pH 7.456 H POC ABG pCO2 30.4 L POC ABG pO2 115.9 H ABG Hemoglobin 7.8 L ABG Oxyhemoglobin ABG Sodium 135.6 L ABG Potassium 3.2 L ABG Chloride 109.0 H ABG Glucose 175 H Carboxyhemoglobin Sodium Potassium Chloride Carbon Dioxide BUN Creatinine Glucose POC Glucose 160 H Lactic Acid Calcium Ionized Calcium Phosphorus Magnesium AST Lactate Dehydrogenase C-Reactive Protein NT-Pro-B Natriuret Pep Serum Total Protein Total Protein Albumin Rpywg-3-Exzkzkolc Gamma Globulins PEP Interpretation TSH Arterial Blood Glucose 175 H Arterial Blood Ionized Calcium 4.4 L Urine WBC (Auto) Crossmatch Allied health notes reviewed: nursing
[2020-11-16 15:44] LABS: Bacteria,Urine 3+ /HPF (Negative); Bilirubin,Urine NEG (Negative); Blood,Urine LG (Negative); Color,Urine Yellow (Yellow); Hyaline Casts,Urine 4 /LPF; Urobilinogen,Urine < 2.0 mg/dL (<2.0)
[2020-11-16 15:45] LABS: RBC,Urine > 182.0 /HPF (0.0-6.0); WBC,Urine > 182.0 /HPF (0.0-6.0)
[2020-11-16] MEDS ORDERED: ALTEPLASE 2 MG INJ IV ONE (19:09)
[2020-11-16] MEDS: HEPARIN/ 0.45% NACL DRIP 25,000 UNIT/500 ML BAG IV SCH (19:59)
[2020-11-16] MEDS ORDERED: TOTAL PARENTERAL NUTRITION 1,800 ML IV SCH (20:00)
[2020-11-17 04:33] LABS: Hematocrit 21.2 % (35.5-45.6); Mean Corpuscular HGB Conc 33 % (32-34); Mean Corpuscular Volume 88 fl (84-94); Platelet Count 221 K/mm3 (140-440); Red Blood Count 2.41 M/mm3 (3.65-5.03); Red Cell Distribution Width 16.8 % (13.2-15.2)
[2020-11-17 05:00] LABS: Calcium 7.4 mg/dL (8.4-10.2)
[2020-11-17] MEDS: METOPROLOL TARTRATE 5 MG/5 ML INJ IV SCH (05:00)
[2020-11-17] MEDS: INSULIN REGULAR, HUMAN 100 UNITS/1 ML SUB-Q SCH (06:24)
[2020-11-17] MEDS ORDERED: CEFEPIME/NS 1 GM/100 ML 1 GM/100 ML BAG IV SCH (06:30)
[2020-11-17] MEDS: LEVOTHYROXINE 100 MCG INJ IV SCH (06:33)
--- NOTE | 2020-11-17 06:43 | Ultrasound Report ---
SONOGRAPHY OF THE CHEST INDICATION: Pleural effusions COMPARISON: Portable chest x-ray 11/15/2020 FINDINGS: Only small bilateral pleural effusions are noted. Signer Name: Diego Kilpatrick MD Signed: 11/17/2020 6:38 AM Workstation Name: [id number]
--- NOTE | 2020-11-17 07:50 | XRay Report ---
CHEST 1 VIEW [id number] INDICATION / CLINICAL INFORMATION: Follow up on pleural effusion COMPARISON: 11/15/2020 FINDINGS: SUPPORT DEVICES: Stable HEART / MEDIASTINUM: Stable LUNGS / PLEURA: Moderate right pleural effusion is again seen. Right basilar atelectasis/infiltrate c ontinues. Increasing density is seen in the left base now and there appears to be a patchy infiltrate developing in the left upper lobe. No pneumothorax. ADDITIONAL FINDINGS: No significant additional findings. Signer Name: Diego Kilpatrick MD Signed: 11/17/2020 7:46 AM Workstation Name: [id number]
[2020-11-17 07:51] LABS: Hemoglobin A2 Prime SEE SCANNED RESULT; Hemoglobin G SEE SCANNED RESULT; Hemoglobin Lepore SEE SCANNED RESULT
[2020-11-17 07:52] LABS: Hemoglobin Barts SEE SCANNED RESULT; Hemoglobin E SEE SCANNED RESULT; Hemoglobin O-Arab SEE SCANNED RESULT; IEF Confirm SEE SCANNED RESULT; Interpretation SEE SCANNED RESULT; Sickle Solubility Test SEE SCANNED RESULT
--- NOTE | 2020-11-17 08:32 | Progress Note ---
Assessment and Plan Assessment and plan: This is a 70-year-old male with hypertension and hypothyroidism who presented to the emergency department on 10/23 with confusion, weakness, exercise intolerance, shortness of breath on exertion, increased bedbound status and decreased oral intake with progressively worsened over the past 2 days prior to presentation. Patient was found to have clinical symptoms consistent with a CVA (neurology consulted, stroke pathway initiated) CHF, bilateral pneumonia, and acute hypoxic respiratory failure. Patient was initiated coronavirus, pneumonia and CHF protocol. Cardiology was consulted in the emergency department. 10/24/2020: Acute CVA with right hemiparesis , PT and OT 10/25/2020: Acute CVA with right hemiplegia, Rehab consult requested, Ejection fraction is 35 to 40% 10/26/2020:patient with acute CVA and right-sided hemiparesis, PT evaluated the patient and recommended acute rehab, Case management processing the request, Possible discharge in 1 to 2 days if stable 10/27/2020: patient is clinically stable, awaiting rehab/SNF placement. DC planning per Case management., Neuro recommend KELLY[possible embolic CVA] follow KELLY 10/28/20: patient is doing slightly better. No new complain. Clinically stable, Patient is going for KELLY today., DC planning to rehab/SNF when cleared by neurology., DC planning per case management 10/29/20: patient is doing slightly better. No new complain. Clinically stable, continue physical therapy occupational therapy, Patient is going for KELLY on Sunday, DC planning to rehab/SNF after KELLY on Sunday, DC planning per case management 10/30/20: patient is sitting in chair. No new complain. Clinically stable, continue physical therapy occupational therapy, Patient is going for KELLY on Sunday, Awaiting DC planning to rehab/SNF after KELLY on Sunday. 10/31/20: patient is seen and examined. No new complain. Clinically stable, continue physical therapy occupational therapy., Patient is going for KELYL on Sunday., Awaiting DC planning to rehab/SNF after KELLY on Sunday. 11/01/20: Patient is seen and examined, Patient with acute CVA and right-sided hemiparesis. Patient is evaluated by PT and recommended acute rehab Patient is going for KELLY today, Patient is waiting for DC planning to rehab/SNF after KELLY. hop worker is working on discharge planning. Patient has chosen [facility] and awaiting authorization. 11/02/2020. KELLY revealed left atrial appendage thrombus. Mildly dilated left ventricle with mild left ventricular hypertrophy with moderate global left ventricular hypokinesis with EF of 40 to 45%. Anticoagulation per cardiology re commendations. Physical therapy recommendations for acute rehab. 11/03/2020. Patient appears to have worsening aphasia and worsening right-sided weakness today per neurology. MRI brain stat. Leukocytosis likely leukemoid reaction from compartment syndrome. Patient is s/p right lower extremity t hombectomy with 4 compartment fasciotomy yesterday. Bleeding from incisions over night. Consider ID consultation. Start empiric antibiotics. 11/04/2020. Patient decompensated yesterday evening with hypotension and worsening mental status. Patient was started on vasopressors and intubated. Patient is currently intubated and on fentanyl for sedation. Patient with worsening leukocytosis. Lactic acidosis likely secondary to compartment syndrome. Patient is s/p right lower extremity thombectomy with 4 compartment fasciotomy on 11/02/2020. Levaquin started empirically yesterday. ID consulta tion today. Patient also with worsening creatinine secondary to acute kidney injury. 11/05/2020. Patient attempted to pull out his ETT while I was examining him. Continue restraints for safety. Patient did manage to pull out his Winkler catheter and now has hematuria. We will irrigate the bladder and monitor closely patient is on anticoagulation with IV heparin. Continue Levophed drip to maintain MAP >65. Patient currently with mechanical ventilation AC mode rate of 12, tidal volume 500, FiO2 30% and a PEEP of 6. Continue fentanyl for sedation. Consult hematology hypercoagulable state given the arterial and venous thrombi. 11/06/2020. Hematology ordered argatroban and steroid pulse therapy. Follow work-up to rule out HIT. Follow-up pF4 Ab testing, Hgb electrophoresis, cardiolipin ab. Continue Levophed drip to maintain MAP >65. Patient currently with mechanical ventilation AC mode rate of 12, tidal volume 500, FiO2 30% and a PEEP of 6. Continue fentanyl for sedation. Continue antibiotics of cefepime and vancomycin. Sputum, blood and urine cultures are negative. Continue restraints for safety. 11/07/2020. Continue steroid pulse therapy per hematology recommendations. Argatroban on hold for GI bleeding and hematuria. Follow-up HIT panel and pF4 Ab testing, Hgb electrophoresis, cardiolipin ab. Continue Levophed drip to maintain MAP >65. Patient currently with mechanical ventilation AC mode rate of 12, tidal volume 500, FiO2 30% and a PEEP of 6. Continue fentanyl for sedation. Continue antibiotics of cefepime and vancomycin. Sputum, blood and urine cultures are negative. Continue restraints for safety. 11/08: CT abd/pelvis obtained today is concerning for ischemic bowels, surgery was consulted. This morning patient was on CPAP trial 03/30 at the time my examination patient is on vasopressor support with Levophed and his HIT panel is pending. He was sedated on 1 mcg of fentanyl. Lab work this morning shows leukocytosis, anemia (transfuse 1 unit PRBC), hyperkalemia (received D50 and insulin), hypochloremia and increasing BUN/creatinine. 11/09: S/p ex lap and small bowel resection on 11/08 with surgery, patient was restarted argatroban drip per surgery, HIT panel negative. CCM will start on low-dose heparin drip. Patient was given 2 g of calcium for his K 5 by nephrology. Surgery plans to return to the OR tomorrow for reexploration with possible anastomosis and abdominal closure. At the time of my examination he is sedated on propofol, fentanyl and vasopressor support with Levophed. Patient is on assist control tidal volume 500, rate 18, PEEP of 6, FiO2 25%. 11/10: Patient noted to be anemic today, PRBC transfusion ordered. Patient has 2 units ready for OR, per RN hem/onc is requesting 2 units of PRBC to be transfused. Will obtain post transfusion h/h. Planned for OR today. At the time of my examination he is sedated on propofol, fentanyl and vasopressor support with Levophed. Patient is on assist control tidal volume 500, rate 12, PEEP of 6, FiO2 25%. Pericardial effusion noted as incidental finding with imaging and cardio will conduct a limited echo to quantify amount. 11/11: Patient was taken to the OR for reexploration of abdomen, appendectomy, small bowel anastomosis and surgeon found all viable small and large bowel with well-perfused anastomosis by ICG fluorescence imaging yesterday and a EARNESTINE drain was placed. AM BMP pending, CBC stable. Patient still continues to ooze at fasciotomy site and MLA dressing. RN to change dressings. Sedated with fentanyl and on levophed (RN to attempt to titrate off as tolerated) and on AC TV 500,R12,Peep 6 and 25%FiO2. Remains on heparin gtt. CPAP trial today and LA will be obtained 11/12: Leukocytosis and kidney function tests continue to improve. Patient remains on TPN with NG tube to wall suction. Overnight the patient was agitated and removed NG tube and EARNESTINE drain, NG tube replaced. RN reported patient had a bowel movement late this morning. Patient remains on ventilator support but is on a CPAP trial at time of examination. [facility] plans to extubate today. 11/13: Patient was extubated yesterday. He has hypomagnesemia which was repleted. Patient remains intubated and NG tube to low wall suction. 11/14: Patient has hypokalemia today which has been repleted and his leukocytosis has resolved. Patient remains on a 28% ISR mask with TPN and heparin drip infu sing. Patient remains on cefepime and Flagyl. Patient is able to follow simple commands. 11/15: Brief interval summary: Chest x-ray reviewed shows worsening pleural effusion on the right. Patient with tachypnea questionable secondary to the pleural effusion versus overall medical condition. Abdominal sounds remains difficult to elicit. Tense abdomen, with daniel no bleeding noted but nontender no reaction to the patient facial grimace on palpation. Still with cold lower extremity on the right dressing noted some serosanguineous secretions noted. Given his respiratory status I believe that the patient still needs ICU care rather than IMCU as he is at high risk for reintubation. Will recommend BiPAP as patient is still on heparin drip and will need to discuss with pulmonary radiology about possible thoracentesis consider right-sided pleural effusion Per cardiology evaluation patient will continue conservative therapy continue anticoagulation with heparin drip for presumed left atrial appendage thrombus. Patient continues on TPN at this time still some bowel recovery is noted. We will also reach out to vascular to reevaluate lower extremity pulses. We will check labs in a.m. including LFTs. 11/16: Patient currently on BiPAP due to respiratory distress. Still encephalopathic and appears sedated this could be secondary to Ativan will discontinue at this time and see how patient responds. Vascular input and pulmonary input noted. Continue with wound VAC on the right leg. Will consider changing to oral anticoagulant possible Eliquis per vascular recommendation. At this time the worsening renal function, altered mental status with increased respiratory rate and noted pleural effusion remains a concern WBC is worsening and so is the renal function this could be secondary to Lasix that was given. No fever reported. Will await to see if thoracentesis will be performed and if this will help. Still awaiting Doppler. 11/17: Patient remains altered although awake not following commands remains on BiPAP going on 48 hours now. While ultrasound showed very small pleural effusion chest x-ray again is reporting moderate pleural effusion on the right. Will defer to pulmonary for further evaluation. Patient continues on heparin drip. Surgical reevaluation noted recommend strict n.p.o. at this time and when mental status improves will need speech therapy. We will continue TPN continue to check electrolytes. Patient is mildly hypotensive today this could be secondary to sedating medications and pain control medications but will monitor closely and if needed will give some fluids. Renal function showing some improvement creatinine down to 3.8 today. Nephrology is following. Ongoing [facility] prognosis is still guarded. Right lower extremity is warm which is an improvement from a few days ago. Sepsis with septic shock Evolving MCA CVA-noted on MRI on 10/23 and 11/03 COVID-19, ruled out #Ischemic limb in setting of arterial thrombus and extensive DVT s/p revascularization sx * (11/02/2020) occlusive arterial thrombus and extensive DVT developed in right lower limb. Vascular surgery performed open revascularization with 4 compartment fasciotomy. 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 Acute hypoxic respiratory failure Acute on chronic systolic heart failure with exacerbation Pneumonia Urinary tract infection Right-sided pleural effusion Acute kidney injury secondary to vasomotor nephropathy Left atrial appendage thrombus Anemia multifactorial s/p 5 units PRBC transfusion Hyperchloremia Hypokalemia Cardiomyopathy Left bundle branch block Hypertension Hypothyroidism DVT/GI prophylaxis: SCDs to bilateral extremities while in bed, Protonix, heparin gtt Disposition: Transfer to [facility] The high probability of a clinically significant, sudden or life threatening deterioration of the [cardiac, respiratory and hemodynamic] system(s) required my full and direct attention, intervention and personal management. The aggregate critical care time was [35] minutes. This time is in addition to time spent performing reported procedures but includes the following: [x] Data Review and interpretation [x] Patient assessment and monitoring of vital signs [x] Documentation [x] Medication orders and management History Interval history: Patient seen and examined this morning per nursing staff patient was agitated last night. Winkler was irrigated for 1500 cc removed this helped improve agitation. Remains sedated opens eyes but not following commands. Remains on BiPAP this morning, Although more awake CCM, cardiology, neurology, vascular surgery, nephrology,general surgery, infectious disease, hematology/oncology, GI, surgery, WOCN, ST/PT/OT consulted, appreciate recommendations -10/23 CT head shows no acute findings, periventricular areas of low attenuation suggestive of nonspecific white matter change, concern for acute ischemic change -10/23 CTA chest shows findings suggestive of mild congestive failure, negative for pulmonary embolism -10/23 CT head with contrast shows no indication of intracranial stenosis or large vessel occlusion -10/23 CTA neck shows no indication of hemodynamically significant stenosis the carotid bifurcations are also clear, right larger than left pleural effusion, remote ACDF at C5-C6 and C6-C7 levels, multifocal neuroforaminal narrowing, mild central canal stenosis evident at C5-C6 level -10/23 bilateral carotid ultrasound shows no significant stenosis -10/23 echocardiogram shows left ventricle moderately dilated, borderline concentric left ventricular hypertrophy, impaired LV relaxation, moderate left ventricular diastolic dysfunction, left ventricular end-diastolic pressure is moderately elevated, no left ventricle thrombus noted in the study, mildly dilated right ventricle, mildly dilated left atrium, saline bubble contrast intravenous injection does not demonstrate PFO, the ventricle systolic function is mild to moderately decreased, LVEF is 35 to 40% with hypokinesis of the septal and inferior wall, moderate to severe hypokinesis in the inferior wall, moderate hypokinesis of the mid inferior septal wall, moderate hypokinesis of the apical septal wall, trace TR, RVSP is 23 mmHg. -10/25 MRI Brain shows acute infarction in the left middle cerebral artery without hemorrhagic conversion -11/02 bilateral lower extremity Doppler ultrasound shows occlusive thrombus in the peroneal vein -11/02 s/p right lower extremity emergent embolectomy with right 4 compartment fasciotomy with vascular surgery -11/03 MRI brain shows interval evolutionary changes of the patchy areas of infarction along the left trigonal region, development of 7 mm focus of acute infarction involving more superior left frontoparietal junction -11/04 abdominal x-ray shows persistent abdominal distention -11/04 renal ultrasound shows findings of medical renal disease without other significant sonographic abnormality -11/05 abdominal x-ray shows increasing bowel distention appears to be predominantly in the colon, moderate/large chronic stool with no free air -11/05 CT head shows decreased attenuation along the superior parietal lobe compatible with evolving infarction without intracranial hemorrhage or other acute abnormality/interval changes -11/07 abdominal x-ray shows abundant fecal material noted throughout the colon and rectal vault consistent with history of constipation which are minimally improved when compared to 11/05, gas-filled and distended bowel loops are similar to prior exam -11/07 CT head shows evolving infarcts involving the left temporoparietal to the left frontoparietal lobes since 11/05 -11/08 abdomen/pelvis CT shows mild diffuse dilation of small bowel loops and proximal colon with evidence of pneumatosis concerning for ischemic bowel, small ascites but no evidence of free air or fluid collection, diffuse ileus also suspected, mild cardiomegaly with trace pericardial effusion, few tiny gallstones in the gallbladder with out abnormal dilation or wall thickening. -11/08 s/p exploratory laparotomy, small bowel resection; intaop findings: 1. Segmental infarcts of distal small intestine with pneumatosis intestinalis present - approximately 30 cm of small bowel resected, 2. SMA with strongly palpable pulse., 3. Large stool burden in left colon -11/10 Limited echocardiogram shows left ventricular systolic function moderately decreased, LVEF 35 to 40%, mild concentric LVH, trace pericardial effusion adjacent to the right ventricle, pulmonary valve is normal in structure, tricuspid valve is normal in structure -11/10 s/p reexploration of abdomen, appendectomy, small bowel anastomosis and surgeon found all viable small and large bowel with well-perfused anastomosis by ICG fluorescence imaging. EARNESTINE drain was placed. -IV antibiotics -Aspirin 325, Lipitor, BB (on hold per surgery as pt is strict NPO) -HIT panel negative -SSI -Continue home Synthroid, converted to IV -Hold antihypertensive regimen in setting of hypotension recent use of vasopressors -Transfuse for hbg <7 -TPN -BiPAP nightly and as needed -Duculox suppository -Trend CBC, BMP Hospitalist Physical - Physical exam Narrative exam: General appearance: Present: Mild distress respiratory AWAKE, BUT NOT FOLLOWING COMMAND on BiPAP - EENT Eyes: Present: PERRL, EOM intact ENT: hearing intact, poor dentition - Neck Neck: Present: normal ROM - Respiratory Respiratory effort: normal Respiratory: bilateral: CTA - Cardiovascular Rhythm: regular Heart Sounds: Present: S1 & S2. Absent: systolic murmur, diastolic murmur - Extremities Extremities:. Of the right lower extremity dressing in place. Positive posterior tibialis Doppler pulse but trace DP pulse appreciated and foot is warm. Peripheral Pulses: Diminished - Abdominal General gastrointestinal: Surgical daniel intact. No bleeding. Tense hypoactive sounds. - Integumentary Integumentary: Present: warm, dry - Psychiatric Psychiatric: cooperative - Neurologic Neurologic: focal deficits (when awake per nursing follows simple commands with left UE and LE) - Allied Health Allied health notes reviewed: nursing, RT - Constitutional Vitals: Temp Pulse Resp BP Pulse Ox 99.2 F 84 30 H 96/55 100 11/17/20 07:00 11/17/20 07:00 11/17/20 07:00 11/17/20 07:00 11/17/20 07:00 General appearance: Present: no acute distress HEART Score - HEART Score Troponin: Troponin T 0.026 ng/mL (0.00-0.029) 10/23/20 16:39 Results - Labs CBC & Chem 7: 11/17/20 03:54 11/17/20 03:54 Labs: Laboratory Last Values WBC 15.8 K/mm3 (4.5-11.0) H 11/17/20 03:54 RBC 2.41 M/mm3 (3.65-5.03) L 11/17/20 03:54 Hgb 7.0 gm/dl (11.8-15.2) L 11/17/20 03:54 Hgb Comment See scanned result 11/10/20 23:11 Hct 21.2 % (35.5-45.6) L 11/17/20 03:54 MCV 88 fl (84-94) 11/17/20 03:54 MCH 29 pg (28-32) 11/17/20 03:54 MCHC 33 % (32-34) 11/17/20 03:54 RDW 16.8 % (13.2-15.2) H 11/17/20 03:54 Plt Count 221 K/mm3 (140-440) 11/17/20 03:54 Lymph % (Auto) 27.8 % (13.4-35.0) 10/23/20 13:32 [place] % (Auto) 6.0 % (0.0-7.3) 10/23/20 13:32 Eos % (Auto) 1.6 % (0.0-4.3) 10/23/20 13:32 Baso % (Auto) 0.7 % (0.0-1.8) 10/23/20 13:32 Lymph # (Auto) 1.5 K/mm3 (1.2-5.4) 10/23/20 13:32 [place] # (Auto) 0.3 K/mm3 (0.0-0.8) 10/23/20 13:32 Eos # (Auto) 0.1 K/mm3 (0.0-0.4) 10/23/20 13:32 Baso # (Auto) 0.0 K/mm3 (0.0-0.1) 10/23/20 13:32 Add Manual Diff Complete 11/09/20 03:21 Total Counted 100 11/09/20 03:21 Seg Neutrophils % Steelscope Operator 11/09/20 03:21 Seg Neuts % (Manual) 89.0 % (40.0-70.0) H 11/09/20 03:21 Lymphocytes % (Manual) 6.0 % (13.4-35.0) L 11/09/20 03:21 Monocytes % (Manual) 5.0 % (0.0-7.3) 11/09/20 03:21 Metamyelocytes % 1.0 % 11/04/20 04:00 Nucleated RBC % Not Reportable 11/09/20 03:21 Seg Neutrophils # 3.4 K/mm3 (1.8-7.7) 10/23/20 13:32 Seg Neutrophils # Man 16.9 K/mm3 (1.8-7.7) H 11/09/20 03:21 Band Neutrophils # 0.0 K/mm3 11/09/20 03:21 Lymphocytes # (Manual) 1.1 K/mm3 (1.2-5.4) L 11/09/20 03:21 Abs React Lymphs (Man) 0.0 K/mm3 11/09/20 03:21 Monocytes # (Manual) 1.0 K/mm3 (0.0-0.8) H 11/09/20 03:21 Eosinophils # (Manual) 0.0 K/mm3 (0.0-0.4) 11/09/20 03:21 Basophils # (Manual) 0.0 K/mm3 (0.0-0.1) 11/09/20 03:21 Metamyelocytes # 0.0 K/mm3 11/09/20 03:21 Myelocytes # 0.0 K/mm3 11/09/20 03:21 Promyelocytes # 0.0 K/mm3 11/09/20 03:21 Blast Cells # 0.0 K/mm3 11/09/20 03:21 WBC Morphology Not Reportable 11/09/20 03:21 Hypersegmented Neuts Not Reportable 11/09/20 03:21 Hyposegmented Neuts Not Reportable 11/09/20 03:21 Hypogranular Neuts Not Reportable 11/09/20 03:21 Smudge Cells Not Reportable 11/09/20 03:21 Toxic Granulation Not Reportable 11/09/20 03:21 Toxic Vacuolation Not Reportable 11/09/20 03:21 Dohle Bodies Not Reportable 11/09/20 03:21 Pelger-Huet Anomaly Not Reportable 11/09/20 03:21 Demario Rods Not Reportable 11/09/20 03:21 Platelet Estimate Consistent w auto 11/09/20 03:21 Clumped Platelets Not Reportable 11/09/20 03:21 Plt Clumps, EDTA Not Reportable 11/09/20 03:21 Large Platelets Not Reportable 11/09/20 03:21 Giant Platelets Not Reportable 11/09/20 03:21 Platelet Satelliting Not Reportable 11/09/20 03:21 Plt Morphology Comment Not Reportable 11/09/20 03:21 RBC Morphology Not Reportable 11/09/20 03:21 Dimorphic RBCs Not Reportable 11/09/20 03:21 Polychromasia Not Reportable 11/09/20 03:21 Hypochromasia 1+ 11/09/20 03:21 Poikilocytosis Not Reportable 11/09/20 03:21 Anisocytosis 1+ 11/09/20 03:21 Microcytosis Not Reportable 11/09/20 03:21 Macrocytosis Not Reportable 11/09/20 03:21 Spherocytes Not Reportable 11/09/20 03:21 Pappenheimer Bodies Not Reportable 11/09/20 03:21 Sickle Cells Not Reportable 11/09/20 03:21 Target Cells Not Reportable 11/09/20 03:21 Tear Drop Cells Not Reportable 11/09/20 03:21 Ovalocytes Not Reportable 11/09/20 03:21 Helmet Cells Not Reportable 11/09/20 03:21 [place] Bodies Not Reportable 11/09/20 03:21 [place] Rings Not Reportable 11/09/20 03:21 Caryn Cells Not Reportable 11/09/20 03:21 Bite Cells Not Reportable 11/09/20 03:21 Crenated Cell Not Reportable 11/09/20 03:21 Elliptocytes Not Reportable 11/09/20 03:21 Acanthocytes (Spur) Not Reportable 11/09/20 03:21 Rouleaux Not Reportable 11/09/20 03:21 Hemoglobin C Crystals Not Reportable 11/09/20 03:21 Schistocytes Not Reportable 11/09/20 03:21 Malaria parasites Not Reportable 11/09/20 03:21 Sickle Cell Solubility See scanned result 11/10/20 23:11 Hemoglobin A See scanned result 11/10/20 23:11 Hemoglobin A2 See scanned result 11/10/20 23:11 Hemoglobin A2 Prime See scanned result 11/10/20 23:11 Hemoglobin C See scanned result 11/10/20 23:11 Hemoglobin D See scanned result 11/10/20 23:11 Hemoglobin E See scanned result 11/10/20 23:11 Hgb F Diffential Stain See scanned result 11/10/20 23:11 Hemoglobin F Quant See scanned result 11/10/20 23:11 Hemoglobin G See scanned result 11/10/20 23:11 Hemoglobin S See scanned result 11/10/20 23:11 Hemoglobin O-Ramey See scanned result 11/10/20 23:11 Hemoglobin [place] See scanned result 11/10/20 23:11 Hemoglobin Jagdeep See scanned result 11/10/20 23:11 Variant Hemoglobin See scanned result 11/10/20 23:11 Abnorm Hgb IEF Confirm See scanned result 11/10/20 23:11 Hemoglobin Interpret See scanned result 11/10/20 23:11 Hemoglobinopathy Note See scanned result 11/10/20 23:11 Lico Bodies Not Reportable 11/09/20 03:21 Hem Pathologist Commnt No 11/09/20 03:21 PT 16.2 Sec. (12.2-14.9) H 11/16/20 04:40 INR 1.32 (0.87-1.13) H 11/16/20 04:40 APTT 60.6 Sec. (24.2-36.6) H* 11/13/20 Unknown D-Dimer 4139.61 ng/mlDDU (0-234) H 10/23/20 18:23 Heparin Anti-Xa Level 0.25 U.I./ml (0.3-0.7) L 11/17/20 00:28 Heparin Anti-Xa, Unfract Negative (Negative) 11/06/20 Unknown ABG pH 7.456 (7.320-7.450) H 11/16/20 08:35 POC ABG pCO2 30.4 mmHg (32.0-48.0) L 11/16/20 08:35 POC ABG pO2 115.9 mmHg (83-108) H 11/16/20 08:35 POC ABG HCO3 20.9 11/16/20 08:35 ABG O2 Saturation 98.5 (0-100) 11/16/20 08:35 POC ABG Base Excess -2.5 11/16/20 08:35 ABG Hemoglobin 7.8 (12.0-17.5) L 11/16/20 08:35 ABG Oxyhemoglobin 97.1 (94-98) 11/16/20 08:35 ABG Methemoglobin 0.3 (0.0-1.5) 11/16/20 08:35 ABG Sodium 135.6 mmol/L (136.0-145.0) L 11/16/20 08:35 ABG Potassium 3.2 mmol/L (3.40-4.50) L 11/16/20 08:35 ABG Chloride 109.0 mmol/L (98-107) H 11/16/20 08:35 ABG Glucose 175 mg/dL (65-95) H 11/16/20 08:35 Carboxyhemoglobin 1.1 (0.5-1.5) 11/16/20 08:35 FiO2 % 28.0 11/16/20 08:35 Sodium 142 mmol/L (137-145) 11/17/20 03:54 Potassium 3.7 mmol/L (3.6-5.0) 11/17/20 03:54 Chloride 106.9 mmol/L (98-107) 11/17/20 03:54 Carbon Dioxide 21 mmol/L (22-30) L 11/17/20 03:54 Anion Gap 18 mmol/L 11/17/20 03:54 BUN 115 mg/dL (9-20) H 11/17/20 03:54 Creatinine 3.8 mg/dL (0.8-1.3) H 11/17/20 03:54 Estimated GFR 19 ml/min 11/17/20 03:54 BUN/Creatinine Ratio 30 % 11/17/20 03:54 Glucose 128 mg/dL (75-100) H 11/17/20 03:54 POC Glucose 129 mg/dL (70-105) H 11/17/20 05:19 Lactic Acid 0.90 mmol/L (0.7-2.0) 11/11/20 13:57 Calcium 7.4 mg/dL (8.4-10.2) L 11/17/20 03:54 Ionized Calcium 4.7 mg/dL (4.8-5.6) L 11/14/20 Unknown Phosphorus 3.40 mg/dL (2.5-4.5) 11/17/20 03:54 Magnesium 2.50 mg/dL (1.7-2.3) H 11/17/20 03:54 Ferritin 238.5 ng/mL (30.0-300.0) 10/23/20 18:23 Total Bilirubin 0.20 mg/dL (0.1-1.2) 11/16/20 04:40 Direct Bilirubin < 0.2 mg/dL (0-0.2) 11/08/20 19:11 Indirect Bilirubin 0.3 mg/dL 11/08/20 19:11 AST 41 units/L (5-40) H 11/16/20 04:40 ALT 42 units/L (7-56) 11/16/20 04:40 Alkaline Phosphatase 54 units/L (35-129) 11/16/20 04:40 Lactate Dehydrogenase 334 units/L (91-180) H 10/23/20 18:23 Troponin T 0.026 ng/mL (0.00-0.029) 10/23/20 16:39 C-Reactive Protein 8.30 mg/dL (0.00-1.30) H 11/04/20 13:01 NT-Pro-B Natriuret Pep 5806 pg/mL (0-900) H 10/23/20 13:32 Serum Total Protein 4.1 g/dL (6.1-8.1) L 11/06/20 Unknown Total Protein 4.9 g/dL (6.3-8.2) L 11/16/20 04:40 Albumin 1.7 g/dL (3.9-5) L 11/16/20 04:40 Albumin/Globulin Ratio 0.5 % 11/16/20 04:40 Vxbdi-2-Etljdycjx 0.5 g/dL (0.2-0.3) H 11/06/20 Unknown Jvnnu-5-Amifpsoxt 0.7 g/dL (0.5-0.9) 11/06/20 Unknown Beta Globulins 0.2 g/dL (0.2-0.5) 11/06/20 Unknown Gamma Globulins 0.4 g/dL (0.8-1.7) L 11/06/20 Unknown Abnorm Protein Band 1 see below 11/06/20 Unknown PEP Interpretation see below H 11/06/20 Unknown Triglycerides 27 mg/dL (2-149) 11/17/20 03:54 Cholesterol 139 mg/dL (50-199) 10/24/20 09:29 LDL Cholesterol Direct 87 mg/dL (50-130) 10/24/20 09:29 HDL Cholesterol 46 mg/dL (40-59) 10/24/20 09:29 Cholesterol/HDL Ratio 3.02 % 10/24/20 09:29 Serotonin Release Assay See scanned result 11/06/20 Unknown Procalcitonin 0.99 ng/mL (<0.15) 11/03/20 21:14 TSH 6.540 mlU/mL (0.270-4.200) H 10/23/20 18:23 TSH 7.100 mlU/mL (0.270-4.200) H 10/23/20 18:23 Free T4 1.33 ng/dL (0.76-1.46) 10/23/20 18:23 Arterial Blood Glucose 175 mg/dL (65-95) H 11/16/20 08:35 Arterial Blood Ionized Calcium 4.4 mg/dL (4.6-5.3) L 11/16/20 08:35 Urine Color Yellow (Yellow) 11/16/20 15:00 Urine Turbidity Cloudy (Clear) 11/16/20 15:00 Urine pH 5.0 (5.0-7.0) 11/16/20 15:00 Ur Specific [place] 1.013 (1.003-1.030) 11/16/20 15:00 Urine Protein 100 mg/dl mg/dL (Negative) 11/16/20 15:00 Urine Glucose (UA) Neg mg/dL (Negative) 11/16/20 15:00 Urine Ketones Neg mg/dL (Negative) 11/16/20 15:00 Urine Blood Lg (Negative) 11/16/20 15:00 Urine Nitrite Neg (Negative) 11/16/20 15:00 Urine Bilirubin Neg (Negative) 11/16/20 15:00 Urine Urobilinogen < 2.0 mg/dL (<2.0) 11/16/20 15:00 Ur Leukocyte Esterase Lg (Negative) 11/16/20 15:00 Urine WBC (Auto) > 182.0 /HPF (0.0-6.0) H 11/16/20 15:00 Urine RBC (Auto) > 182.0 /HPF (0.0-6.0) 11/16/20 15:00 U Epithel Cells (Auto) < 1.0 /HPF (0-13.0) 11/04/20 11:00 Urine Bacteria (Auto) 3+ /HPF (Negative) 11/16/20 15:00 Urine WBC Clumps 2+ /HPF 11/16/20 15:00 Hyaline Casts 4 /LPF 11/16/20 15:00 Urine Mucus Few /HPF 11/04/20 11:00 Urine Yeast (Budding) 3+ /HPF 11/16/20 15:00 Urine Eosinophils None seen (None Seen) 11/04/20 12:50 Urine Creatinine < 4.2 mg/dL (0.1-20.0) 11/04/20 12:50 Urine Sodium 10 mmol/L 11/04/20 12:50 Random Vancomycin 10.7 ug/mL (0-40.0) 11/08/20 04:39 Heparin-induced Plt Ab Negative (Negative) 11/06/20 Unknown UF Heparin High Dose 0 % Release 11/06/20 Unknown DYLAN UFH Low Dose 0.1 0 % Release 11/06/20 Unknown DYLAN UFH Low Dose 0.5 0 % Release 11/06/20 Unknown Cardiolipid IgG Ab <14 GPL (<=14) 11/06/20 Unknown Cardiolipid IgA Ab <11 APL (<=11) 11/06/20 Unknown Cardiolipid IgM Ab <12 MPL (<=12) 11/06/20 Unknown Coronavirus (PCR) Negative (Negative) 10/24/20 09:57 Blood Type O POSITIVE 11/13/20 20:35 Antibody Screen Negative 11/13/20 20:35 Crossmatch See Detail 11/13/20 20:35 Winkler/IV: Voiding Method Indwelling Catheter Active Medications - Current Medications Current Medications: Generic Name Dose Route Start Last Admin Trade Name Freq PRN Reason Stop Dose Admin Bisacodyl 10 mg 11/08/20 22:00 11/16/20 22:09 Bisacodyl 10 Mg Rect Supp RI 10 mg BID ALEX Administration Dextrose 50 ml 11/08/20 08:04 Dextrose 50% In Water (25gm) 50 Ml Syringe IV Q30MIN PRN Hypoglycemia Protocol Glycopyrrolate 0.2 mg 11/13/20 13:00 11/16/20 22:09 Glycopyrrolate 0.4 Mg/2 Ml Inj IV 11/20/20 12:59 0.2 mg BID ALEX Administration Hydromorphone HCl 1 mg 11/11/20 13:35 11/14/20 21:39 Hydromorphone 1 Mg/1 Ml Inj IV 1 mg Q4H PRN Administration Pain , Severe (7-10) Hydrophilic Ointment 1 applic 11/03/20 16:46 Lip Therapy Vaseline TP Q2HR PRN Dry Lips Heparin Sodium/Sodium Chloride 25,000 unit in 500 mls @ 30 mls/hr 11/09/20 13:00 11/17/20 00:28 Heparin/ 0.45% Nacl-25,000 Unit/500 Ml IV 1,100 units/hr TITR ALEX 22 mls/hr Titration Protocol 1,500 UNITS/HR Amino Acids/Electrolytes/Dextrose 1,800 mls @ 75 mls/hr 11/16/20 20:00 11/16/20 20:48 Tpn Adult IV 11/17/20 19:59 75 mls/hr DAILY@2000 [facility] Administration Protocol Cefepime HCl 1 gm in 100 mls @ 200 mls/hr 11/17/20 06:30 11/17/20 06:32 Cefepime/Ns 1 Gm/100 Ml IV 200 mls/hr Q24H [facility] Administration Protocol Insulin Human Regular 0 units 11/12/20 12:00 11/17/20 06:24 Insulin Regular, Human 100 Units/1 Ml SUB-Q Not Given Q6HR [facility] Protocol Levothyroxine Sodium 75 mcg 11/09/20 06:00 11/17/20 06:33 Levothyroxine 100 Mcg Inj IV 75 mcg DAILY@0600 [facility] Administration Lorazepam 2 mg 11/15/20 14:45 11/15/20 14:56 Lorazepam 2 Mg/Ml Vial IV 2 mg Q6H PRN Administration Anxiety Metoprolol Tartrate 5 mg 11/12/20 12:00 11/17/20 05:00 Metoprolol Tartrate 5 Mg/5 Ml Inj IV Not Given Q6HR [facility] Morphine Sulfate 2 mg 11/16/20 11:16 Morphine 2 Mg/1 Ml Inj IV Q3H PRN Pain, Moderate (4-6) Multi-Ingred Cream/Lotion/Oil/Oint 1 applic 11/03/20 16:46 Mineral Oil/Petrolatum, White Ophth Oint 3.5 Gm OU Q4HR PRN Dry Eye(s) Ondansetron HCl 4 mg 10/23/20 20:00 11/07/20 23:09 Ondansetron 4 Mg/2 Ml Inj IV 4 mg Q8H PRN Administration Nausea And Vomiting Pantoprazole Sodium 40 mg 11/07/20 22:00 11/16/20 22:09 Pantoprazole 40 Mg Inj IV 40 mg BID [facility] Administration Scopolamine 1 each 11/16/20 10:00 11/16/20 09:34 Scopolamine Transdermal Patch 72 Hr TD 1 each Q3D [facility] Administration Sodium Chloride 10 ml 10/23/20 20:00 11/16/20 22:09 Sodium Chloride 0.9% 10 Ml Flush Syringe IV 10 ml PRN PRN Administration LINE FLUSH Nutrition/Malnutrition Assess - Dietary Evaluation Nutrition/Malnutrition Findings: Nutrition Notes Start: 10/24/20 11:33 Freq: Status: Active Protocol: Document 11/17/20 07:58 BETHEL (Rec: 11/17/20 08:01 [id number]) Nutrition Notes Initial or Follow up Reassessment Current Diagnosis Acute Kidney Injury,Sepsis, Hypertension,Heart Failure, Respiratory Failure,Stroke Other Pertinent Diagnosis post op ileus Current Diet TPN at 75ml/hr Labs/Tests BUN 115 Cr 3.8 Mg 2.5 Pertinent Medications Reviewed Height 5 ft 11 in Weight 89.358 kg [place] Body Weight (kg) 78.18 BMI 27.4 Weight Status Overweight Subjective/Other Information CPN day 8. No changes. Percent of energy/protein needs met: 79%/100% Burn Absent Trauma Absent GI Symptoms Other Current % PO Negligible Minimum of two criteria No Fluid Accumulation Moderate to Severe (severe) #3 Nutrition Diagnosis Increased nutrient needs ( specify in comment below) Diagnosis Progress(for reassessment Continues documentation) #2 Nutrition Diagnosis Inadequate oral intake Diagnosis Progress(for reassessment Continues documentation) Is patient on ventilator? No Is Patient Ambulatory and/or Out of Bed No REE-([facility]-confined to bed) 2016.492 Kcal/Kg value to use for calculation 18 Approximate Energy Requirements Using 1608 kcal/Kg Calculation Used for Recommendations Kcal/kg Additional Notes Protein: 116-140 g (1.25-1.5 g /kg 93kg adj wt) Fluid: 1 ml/kcal Nutrition Intervention Change Diet Order: Continue CPN Nutrition Support: CPN at 75ml/hr: Osmolarity 1794 Lipids, MVI Kcal 2,080 Protein (gm) 140 Carbohydrates (gm) 300 Fat (gm) 50 Fluid (mL) 2,050 Fiber (gm) 0 Goal #1 Meet kcal and protein needs as best as possible via CPN Goal #2 Wound healing Anticipated Discharge Needs: Unable to determine at this time Follow-Up By: 11/18/20 Additional Comments Labs in AM: Lucia
--- NOTE | 2020-11-17 09:48 | Progress Note ---
Assessment and Plan 70 yo M s/p 1. reexploration of abdomen, appendectomy, small bowel anastamosis, POD7 2. exploratory laparotomy, small bowel resection, placement of abthera vac, 11/08/20 1. 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 Vent dependent respiratory failure 3. septic shock 4. MCA CVA 5. acute limb ischemia s/p right lower extremity revascularization and fasciotomies Plan: 1. NPO 2. TPN 3. prn pain control - I feel part of his tachypnea is pain related. Morphine and Dilaudid ordered prn for pain 4. on hepgtt. Vascular and cards on board 5. OK to place dobhoff for oral meds. If continues to have bowel function, will consider starting trophic tube feeds 6. speech therapy eval when mental status is improved 7. pulm toilet 8. WI bowel regimen Prognosis is guarded Please call with any questions or concerns. Evaluation and treatment of this patient was during the time of the national and state emergency arising from COVID19 coronavirus pandemic. Treatment and procedu res performed meet the current and available best practice and guidelines for patient during the COVID pandemic. Subjective Date of service: 11/17/20 Narrative: Patient seen and examined. He is more awake today but agitated. Off BiPAP. He is afebrile. No bowel movements recorded for the last 24 hours. No nausea or vomiting. Objective Vital Signs - 12hr 11/16/20 11/16/20 11/16/20 22:00 22:31 23:00 Temperature Pulse Rate 71 80 86 Pulse Rate [ None] Respiratory 22 22 32 H Rate Blood Pressure 95/55 99/61 O2 Sat by Pulse 100 100 100 Oximetry 11/16/20 11/16/20 11/16/20 23:19 23:31 23:40 Temperature 99.8 F H Pulse Rate 88 85 Pulse Rate [ None] Respiratory 33 H 33 H Rate Blood Pressure 99/61 99/61 O2 Sat by Pulse 100 100 Oximetry 11/16/20 11/17/20 11/17/20 23:49 00:00 00:31 Temperature Pulse Rate 83 81 82 Pulse Rate [ None] Respiratory 28 H 27 H Rate Blood Pressure 99/61 100/59 100/59 O2 Sat by Pulse 100 100 Oximetry 11/17/20 11/17/20 11/17/20 01:00 01:31 02:00 Temperature Pulse Rate 80 80 82 Pulse Rate [ None] Respiratory 28 H 25 H 28 H Rate Blood Pressure 100/65 100/65 92/60 O2 Sat by Pulse 100 100 100 Oximetry 11/17/20 11/17/20 11/17/20 02:31 03:00 03:31 Temperature Pulse Rate 83 77 80 Pulse Rate [ None] Respiratory 27 H 24 28 H Rate Blood Pressure 92/60 93/58 93/58 O2 Sat by Pulse 100 100 100 Oximetry 11/17/20 11/17/20 11/17/20 03:45 03:56 04:00 Temperature 99.9 F H Pulse Rate 78 82 Pulse Rate [ None] Respiratory 28 H 23 Rate Blood Pressure 93/58 94/63 O2 Sat by Pulse 100 100 Oximetry 11/17/20 11/17/20 11/17/20 04:31 05:17 06:46 Temperature Pulse Rate 78 82 Pulse Rate [ 86 None] Respiratory 24 26 H 7 L Rate Blood Pressure 93/58 101/62 O2 Sat by Pulse 100 100 100 Oximetry 11/17/20 11/17/20 07:00 09:07 Temperature 99.2 F Pulse Rate 84 Pulse Rate [ None] Respiratory 30 H Rate Blood Pressure 96/55 O2 Sat by Pulse 100 100 Oximetry - General physical appearance Narrative Exam: Gen.: Awake, alert. Does not answer questions. Does follow some commands - squeezing hand ENT: Trachea midline. No lymphadenopathy. No scleral icterus or conjunctival pallor. Poor oral hygeine CV: S1, S2 present Respiratory: Tachypneic Abdomen: Soft, nondistended, mild TTP of incision. Incision c/d/i. No rebound, rigidity, guarding Extremities: Generalized edema - Labs 11/17/20 03:54 11/17/20 03:54 Diabetes panel 11/17/20 Range/Units 03:54 Sodium 142 (137-145) mmol/L Potassium 3.7 (3.6-5.0) mmol/L Chloride 106.9 (98-107) mmol/L Carbon Dioxide 21 L (22-30) mmol/L BUN 115 H (9-20) mg/dL Creatinine 3.8 H (0.8-1.3) mg/dL Glucose 128 H (75-100) mg/dL Calcium 7.4 L (8.4-10.2) mg/dL Triglycerides 27 (2-149) mg/dL Calcium panel 11/17/20 Range/Units 03:54 Calcium 7.4 L (8.4-10.2) mg/dL Phosphorus 3.40 (2.5-4.5) mg/dL Pituitary panel 11/17/20 Range/Units 03:54 Sodium 142 (137-145) mmol/L Potassium 3.7 (3.6-5.0) mmol/L Chloride 106.9 (98-107) mmol/L Carbon Dioxide 21 L (22-30) mmol/L BUN 115 H (9-20) mg/dL Creatinine 3.8 H (0.8-1.3) mg/dL Glucose 128 H (75-100) mg/dL Calcium 7.4 L (8.4-10.2) mg/dL Adrenal panel 11/17/20 Range/Units 03:54 Sodium 142 (137-145) mmol/L Potassium 3.7 (3.6-5.0) mmol/L Chloride 106.9 (98-107) mmol/L Carbon Dioxide 21 L (22-30) mmol/L BUN 115 H (9-20) mg/dL Creatinine 3.8 H (0.8-1.3) mg/dL Glucose 128 H (75-100) mg/dL Calcium 7.4 L (8.4-10.2) mg/dL
[2020-11-17] MEDS: PANTOPRAZOLE 40 MG INJ IV SCH (10:16)
[2020-11-17] MEDS: GLYCOPYRROLATE 0.4 MG/2 ML INJ IV SCH (10:16)
--- NOTE | 2020-11-17 10:27 | Progress Note ---
Assessment and Plan 1. Acute kidney injury: Vasomotor STACEY in the setting of shock. Renal US negative for hydro. Monitor renal function. Renal prognosis is guarded. Slight decrease in the Creatinine level noted. Pt has knutson catheter and non-oliguric. Avoid nephrotoxic agents. Meds dosage based on GFR. Monitor for [employer] needs. 2. FEN: Hypokalemia, replete K as needed, monitor. Hyperchloremia, monitor. On PPN. Diuretics as needed. Monitor lytes and volume status. 3. Severe sepsis with shock: Likely secondary to acute thrombus of the right lower extremity complicated with compartment syndrome +/- UTI. Off pressors. Followed by ID. 4. 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 Seen by Neurology. 5. Acute hypoxemic respiratory failure: S/p extubated. 6. Acute on chronic systolic heart failure: EF 40-45%. Followed by Cards. 7. Left atrial thrombus: Heparin drip. 8. Acute R LE ischemia: S/p thrombectomy. 9. Mild pneumatosis of ascending colon: Bowel ischemia. S/p Ex-lap and small bowel resection 11/08. S/p reexploration of abdomen, appendectomy, small bowel anastamosis 11/10. Followed by General surgery. 10. Normochromic anemia: Monitor. Subjective: Patient was seen and examined at the bedside. RN at the bedside. Examination: General appearance: well-developed, appears stated age, on NC O2 HEENT: SCOTTY, atraumatic Neck: trachea midline Respiratory: Coarse breath sounds heard Heart: S1S2, regular, no murmur Abdomen: soft, appears distended, bowel sounds heard, NT Integumentary: R LE dressing noted Neurologic: lethargic, non-verbal, not following any command Ext: bilateral LE and dependent edema noted : Knutson catheter, scrotal edema noted Subjective Date of service: 11/17/20 Principal diagnosis: CVA, Atrial Thrombus, Acute Limb Ischemia, Mesenteric Infarct Objective - Vital Signs Vital signs: Vital Signs - 12hr 11/16/20 11/16/20 11/16/20 22:31 23:00 23:19 Temperature Pulse Rate 80 86 88 Pulse Rate [ None] Respiratory 22 32 H 33 H Rate Blood Pressure 99/61 99/61 O2 Sat by Pulse 100 100 100 Oximetry 11/16/20 11/16/20 11/16/20 23:31 23:40 23:49 Temperature 99.8 F H Pulse Rate 85 83 Pulse Rate [ None] Respiratory 33 H Rate Blood Pressure 99/61 99/61 O2 Sat by Pulse 100 Oximetry 11/17/20 11/17/20 11/17/20 00:00 00:31 01:00 Temperature Pulse Rate 81 82 80 Pulse Rate [ None] Respiratory 28 H 27 H 28 H Rate Blood Pressure 100/59 100/59 100/65 O2 Sat by Pulse 100 100 100 Oximetry 11/17/20 11/17/20 11/17/20 01:31 02:00 02:31 Temperature Pulse Rate 80 82 83 Pulse Rate [ None] Respiratory 25 H 28 H 27 H Rate Blood Pressure 100/65 92/60 92/60 O2 Sat by Pulse 100 100 100 Oximetry 11/17/20 11/17/20 11/17/20 03:00 03:31 03:45 Temperature Pulse Rate 77 80 78 Pulse Rate [ None] Respiratory 24 28 H 28 H Rate Blood Pressure 93/58 93/58 93/58 O2 Sat by Pulse 100 100 100 Oximetry 11/17/20 11/17/20 11/17/20 03:56 04:00 04:31 Temperature 99.9 F H Pulse Rate 82 78 Pulse Rate [ None] Respiratory 23 24 Rate Blood Pressure 94/63 93/58 O2 Sat by Pulse 100 100 Oximetry 11/17/20 11/17/20 11/17/20 05:17 06:46 07:00 Temperature 99.2 F Pulse Rate 82 84 Pulse Rate [ 86 None] Respiratory 26 H 7 L 30 H Rate Blood Pressure 101/62 96/55 O2 Sat by Pulse 100 100 100 Oximetry 11/17/20 09:07 Temperature Pulse Rate Pulse Rate [ None] Respiratory Rate Blood Pressure O2 Sat by Pulse 100 Oximetry - Lab 11/17/20 03:54 11/17/20 03:54 Most recent lab results ABG pH 7.456 (7.320-7.450) H 11/16/20 08:35 ABG O2 Saturation 98.5 (0-100) 11/16/20 08:35 Calcium 7.4 mg/dL (8.4-10.2) L 11/17/20 03:54 Phosphorus 3.40 mg/dL (2.5-4.5) 11/17/20 03:54 Magnesium 2.50 mg/dL (1.7-2.3) H 11/17/20 03:54 Urine Creatinine < 4.2 mg/dL (0.1-20.0) 11/04/20 12:50 Urine Sodium 10 mmol/L 11/04/20 12:50 Medications & Allergies - Medications Allergies/Adverse Reactions: Allergies No Known Allergies Allergy (Unverified 10/23/20 12:44) Home Medications: Home Medications Medication Instructions Recorded Confirmed Last Taken Type Levothyroxine Sodium 150 mcg PO DAILY 10/31/20 10/31/20 Unknown History [Levothyroxine] carvediloL [Coreg] 6.25 mg PO BID 10/31/20 10/31/20 Unknown History lisinopriL [Lisinopril] 10 mg PO DAILY 10/31/20 10/31/20 Unknown History Active Medications: Generic Name Dose Route Start Last Admin Trade Name Freq PRN Reason Stop Dose Admin Bisacodyl 10 mg 11/08/20 22:00 11/17/20 10:16 Bisacodyl 10 Mg Rect Supp OR 10 mg BID ALEX Administration Dextrose 50 ml 11/08/20 08:04 Dextrose 50% In Water (25gm) 50 Ml Syringe IV Q30MIN PRN Hypoglycemia Protocol Glycopyrrolate 0.2 mg 11/13/20 13:00 11/17/20 10:16 Glycopyrrolate 0.4 Mg/2 Ml Inj IV 11/20/20 12:59 0.2 mg BID ALEX Administration Hydromorphone HCl 1 mg 11/11/20 13:35 11/14/20 21:39 Hydromorphone 1 Mg/1 Ml Inj IV 1 mg Q4H PRN Administration Pain , Severe (7-10) Hydrophilic Ointment 1 applic 11/03/20 16:46 Lip Therapy Vaseline TP Q2HR PRN Dry Lips Heparin Sodium/Sodium Chloride 25,000 unit in 500 mls @ 30 mls/hr 11/09/20 13:00 11/17/20 00:28 Heparin/ 0.45% Nacl-25,000 Unit/500 Ml IV 1,100 units/hr TITR ALEX 22 mls/hr Titration Protocol 1,500 UNITS/HR Amino Acids/Electrolytes/Dextrose 1,800 mls @ 75 mls/hr 11/16/20 20:00 11/16/20 20:48 Tpn Adult IV 11/17/20 19:59 75 mls/hr DAILY@2000 [facility] Administration Protocol Cefepime HCl 1 gm in 100 mls @ 200 mls/hr 11/17/20 06:30 11/17/20 06:32 Cefepime/Ns 1 Gm/100 Ml IV 200 mls/hr Q24H [facility] Administration Protocol Insulin Human Regular 0 units 11/12/20 12:00 11/17/20 06:24 Insulin Regular, Human 100 Units/1 Ml SUB-Q Not Given Q6HR [facility] Protocol Levothyroxine Sodium 75 mcg 11/09/20 06:00 11/17/20 06:33 Levothyroxine 100 Mcg Inj IV 75 mcg DAILY@0600 [facility] Administration Lorazepam 2 mg 11/15/20 14:45 11/15/20 14:56 Lorazepam 2 Mg/Ml Vial IV 2 mg Q6H PRN Administration Anxiety Metoprolol Tartrate 5 mg 11/12/20 12:00 11/17/20 05:00 Metoprolol Tartrate 5 Mg/5 Ml Inj IV Not Given Q6HR [facility] Morphine Sulfate 2 mg 11/16/20 11:16 Morphine 2 Mg/1 Ml Inj IV Q3H PRN Pain, Moderate (4-6) Multi-Ingred Cream/Lotion/Oil/Oint 1 applic 11/03/20 16:46 Mineral Oil/Petrolatum, White Ophth Oint 3.5 Gm OU Q4HR PRN Dry Eye(s) Ondansetron HCl 4 mg 10/23/20 20:00 11/07/20 23:09 Ondansetron 4 Mg/2 Ml Inj IV 4 mg Q8H PRN Administration Nausea And Vomiting Pantoprazole Sodium 40 mg 11/07/20 22:00 11/17/20 10:16 Pantoprazole 40 Mg Inj IV 40 mg BID ALEX Administration Scopolamine 1 each 11/16/20 10:00 11/16/20 09:34 Scopolamine Transdermal Patch 72 Hr TD 1 each Q3D [facility] Administration Sodium Chloride 10 ml 10/23/20 20:00 11/16/20 22:09 Sodium Chloride 0.9% 10 Ml Flush Syringe IV 10 ml PRN PRN Administration LINE FLUSH
[2020-11-17 11:18] VITALS: BP 98/66
[2020-11-17] MEDS: LORazepam 2 MG/ML VIAL IV PRN (11:20)
--- NOTE | 2020-11-17 12:08 | Progress Note ---
Assessment and Plan Cultures: Sputum culture 11/03/2020 upper respiratory mechelle Urine culture 11/04/2020 negative Blood culture 11/04/2020 no growth today Tracheal aspirate 11/04/2020 Neisha albicans Assessment: 70-year-old male with history of hypertension, hypothyroidism, admitted on 10/23/2020 secondary to 2-day history of acute altered mental status with confusion and diminished cognition; noted to have a left MCA CVA and right leg acute thrombosis, now with worsening leukocytosis and on pressors: #Severe sepsis with septic shock: Likely secondary to acute thrombus of the right lower extremity complicated with compartment syndrome. Chest x-ray without any obvious pneumonia, shows b/l effusions. New low grade fever probably from UTI. #UTI: UA with pyuria. #Possible bowel ischemia, intestinal pneumatosis: was taken to the OR, all viable bowel seen on direct inspection,? due to embolic phenomenon. On TPN. Gen Surg following #Acute CVA: MRI with acute infarction of the left MCA, repeat MRI with evolving changes. Neurology evaluated. #Acute right leg thromboses: Complicated with compartment syndrome s/p open thrombectomy of the right lower extremity and right lower extremity compartment syndrome fasciotomy on 11/02/2020. #STACEY: creat elevated. Renally adjust antibiotics. #Acute respiratory failure: Chest x-ray with pulmonary edema and b/l pleural effusions. SARS-CoV-2 PCR negative. #Cardiomyopathy: EF 35 to 40%. #Left atrial appendage thrombus #Anemia Recommendations: -continue IV Cefepime, renally dosed -Winkler exchange discussed with BONNIE Solano MD, FACP [facility] ([facility]) O: [phone] F: [phone] Subjective Date of service: 11/17/20 Principal diagnosis: CVA, Atrial Thrombus, Acute Limb Ischemia, Mesenteric Infarct Interval history: Low grade fever continues. Off BiPAP. Urine continues to be cloudy and with s ediment. Objective - Exam Narrative Exam: Physical Exam: Constitutional: Drowsy Head, Ears, Nose: Normocephalic, atraumatic. External ears, nose normal Eyes: Conjunctivae/corneas clear. No icterus. No ptosis. Neck: Supple, no meningeal signs Cardiovascular: S1, S2 normal. Respiratory: Air entry decreased in bases GI: Soft, bowel sounds present, dressings present. Scrotal edema present Musculoskeletal: Anasarca, RLE in dressing. Skin: No rash or abscess Hem/Lymphatic: No palpable cervical or supraclavicular nodes. No lymphangitis Psych: No agitation Neurological: Drowsy - Constitutional Vitals: Vital Signs Temp Pulse Resp BP Pulse Ox 98.9 F 94 H 44 H 98/66 100 11/17/20 12:00 11/17/20 11:00 11/17/20 11:00 11/17/20 11:00 11/17/20 11:00 Temperature -Last 24 Hours Temperature 98.9 F Temperature 99.2 F Temperature 99.9 F Temperature 99.8 F Temperature 100.5 F Temperature 98.2 F - Labs CBC & Chem 7: 11/17/20 03:54 11/17/20 03:54 Labs: Abnormal lab results 11/13/20 11/14/20 11/16/20 Range/Units 20:35 Unknown 11:45 WBC (4.5-11.0) K/mm3 RBC (3.65-5.03) M/mm3 Hgb (11.8-15.2) gm/dl Hct (35.5-45.6) % RDW (13.2-15.2) % Heparin Anti-Xa Level (0.3-0.7) U.I./ml Carbon Dioxide (22-30) mmol/L BUN (9-20) mg/dL Creatinine (0.8-1.3) mg/dL Glucose (75-100) mg/dL POC Glucose 142 H (70-105) mg/dL Calcium (8.4-10.2) mg/dL Ionized Calcium 4.7 L (4.8-5.6) mg/dL Magnesium (1.7-2.3) mg/dL Urine WBC (Auto) (0.0-6.0) /HPF Crossmatch See Detail 11/16/20 11/16/20 11/16/20 Range/Units 15:00 17:29 23:26 WBC (4.5-11.0) K/mm3 RBC (3.65-5.03) M/mm3 Hgb (11.8-15.2) gm/dl Hct (35.5-45.6) % RDW (13.2-15.2) % Heparin Anti-Xa Level (0.3-0.7) U.I./ml Carbon Dioxide (22-30) mmol/L BUN (9-20) mg/dL Creatinine (0.8-1.3) mg/dL Glucose (75-100) mg/dL POC Glucose 141 H 125 H (70-105) mg/dL Calcium (8.4-10.2) mg/dL Ionized Calcium (4.8-5.6) mg/dL Magnesium (1.7-2.3) mg/dL Urine WBC (Auto) > 182.0 H (0.0-6.0) /HPF Crossmatch 11/17/20 11/17/20 11/17/20 Range/Units 00:28 03:54 03:54 WBC 15.8 H (4.5-11.0) K/mm3 RBC 2.41 L (3.65-5.03) M/mm3 Hgb 7.0 L (11.8-15.2) gm/dl Hct 21.2 L (35.5-45.6) % RDW 16.8 H (13.2-15.2) % Heparin Anti-Xa Level 0.25 L (0.3-0.7) U.I./ml Carbon Dioxide 21 L (22-30) mmol/L BUN 115 H (9-20) mg/dL Creatinine 3.8 H (0.8-1.3) mg/dL Glucose 128 H (75-100) mg/dL POC Glucose (70-105) mg/dL Calcium 7.4 L (8.4-10.2) mg/dL Ionized Calcium (4.8-5.6) mg/dL Magnesium 2.50 H (1.7-2.3) mg/dL Urine WBC (Auto) (0.0-6.0) /HPF Crossmatch 11/17/20 Range/Units 05:19 WBC (4.5-11.0) K/mm3 RBC (3.65-5.03) M/mm3 Hgb (11.8-15.2) gm/dl Hct (35.5-45.6) % RDW (13.2-15.2) % Heparin Anti-Xa Level (0.3-0.7) U.I./ml Carbon Dioxide (22-30) mmol/L BUN (9-20) mg/dL Creatinine (0.8-1.3) mg/dL Glucose (75-100) mg/dL POC Glucose 129 H (70-105) mg/dL Calcium (8.4-10.2) mg/dL Ionized Calcium (4.8-5.6) mg/dL Magnesium (1.7-2.3) mg/dL Urine WBC (Auto) (0.0-6.0) /HPF Crossmatch
[2020-11-17] MEDS ORDERED: EPINEPHrine 1 MG/10 ML SYRINGE ONE (12:09)
[2020-11-17] MEDS ORDERED: SODIUM BICARB 8.4% 50 MEQ/50 ML SYRINGE IV ONE (12:09)
[2020-11-17] MEDS ORDERED: AMIODARONE 150 MG/3 ML INJ IV ONE (12:09)
[2020-11-17] MEDS ORDERED: ATROPINE 0.1% (1 MG/10 ML) CARDIAC SYRINGE ONE (12:09)
--- NOTE | 2020-11-17 12:29 | Event Note ---
Date: 11/17/20 Responded to CODE BLUE to the ICU. Patient in a full cardiac arrest, CPR in progress. Patient required intubation. No consent obtained since it is an emergency procedure. Using a glide scope patient easily intubated. I visualized the tube passing vocal cords. Good breath sound on both sides. No complication. Care for the patient continued by Dr. Castorena.
--- NOTE | 2020-11-17 12:30 | Event Note ---
Date: 11/17/20 Responded to CODE BLue, [Per nursing staff, patient lost pulse, and was unresponsive. ACLS protocol initiated Patient intubated by ED physician -See procedure note CPR with one round of Epi given Pulse obtained via doppler BP 115/76 EKG concerning for Afib Family, cardiology and community center director notified. CCT 35 MINS
--- NOTE | 2020-11-17 13:04 | Event Note ---
Date: 11/17/20 Second CODE VANNA called on the patient. Despite 9 epi 3 cardioversions and 3 A of bicarb patient was unable to be resuscitated family updated on patient's demise, writers condolence conveyed to the family. Full detail patient went back into asystole required multiple rounds of epi recheck of rhythm showed multiple V. fib with initially 200 J shock delivered and subsequently another 200 J and then 360 J given. Patient did have a pulse that was trendy with bradycardia requiring atropine but prior to delivering the atropine patient's pulse was lost again we restarted CPR and multiple rounds of epi was given with no spontaneous breathing or pulse recovered.
--- NOTE | 2020-11-17 13:07 | Death Summary ---
Summary - Providers Date of service: 11/17/20 Consults: 10/23/20 20:01 Occupational Therapy Evaluate and Treat [CONS] Routine Comment: Reason For Exam: Neuro deficits Physical Therapy Evaluation and Treat [CONS] Routine Comment: Reason For Exam: Neuro deficits 10/23/20 20:05 Consult to Physician [CONS] Routine Comment: Consulting Provider: JANICE ALMANZAR Physician Instructions: Reason For Exam: CHF 10/24/20 09:20 Speech Therapy Evaluation and Treat [CONS] Routine Reason For Exam: swallow stroke pt 10/26/20 07:08 Consult to Physician [CONS] Routine Comment: Consulting Provider: SUSANNE HERNANDEZ Physician Instructions: Reason For Exam: Acute CVA 11/01/20 15:17 Consult to Physician [CONS] Routine Comment: Consulting Provider: SUSANNE HERNANDEZ Physician Instructions: Reason For Exam: Anticoagulation regarding atrial appendage thrombu 11/02/20 12:59 Consult to Physician [CONS] Routine Comment: Consulting Provider: TAMIA HUTCHINSON Physician Instructions: Reason For Exam: Extensive Aterial and venous thrombus 11/03/20 12:04 Consult to Cardiac Rehabilitation [CONS] Routine Reason For Exam: Cardiomyopathy with ejection fraction 35 to 40% Additional Notes/Special Instructions: Referral for cardiomyopathy with ejection fraction 35 to 40%. Patient is status post acute CVA with right- sided deficit. Requests referral to assess appropriateness of cardiac rehab outpatient once discharged to address core measures 11/03/20 13:17 Consult to Physician [CONS] Routine Comment: Consulting Provider: RAYMOND BECK Physician Instructions: Reason For Exam: critical care 11/03/20 16:46 Consult to Dietitian/Nutrition [CONS] Routine Physician Instructions: Reason For Exam: Reason for Consult: Evaluate nutritional intake 11/03/20 18:05 Consult to Dietitian/Nutrition [CONS] Routine Physician Instructions: Reason For Exam: Reason for Consult: Write/Manage Tube Feeding 11/04/20 09:26 Consult to Physician [CONS] Routine Comment: Consulting Provider: GRISELDA FISHER Physician Instructions: Reason For Exam: STACEY 11/04/20 09:30 Consult to Physician [CONS] Routine Comment: Consulting Provider: JACKIE EPSTEIN Physician Instructions: Reason For Exam: Compartment syndrome, leukocytosis 11/04/20 15:13 Consult to Wound/ET Nurse [CONS] Routine Reason For Exam: fasciotomies 11/05/20 07:12 Consult to Physician [CONS] Routine Comment: Consulting Provider: OMER EDMONDSON Physician Instructions: Reason For Exam: Aterial and venous thrombus, hypercoagulable 11/07/20 16:46 Consult to Physician [CONS] Routine Comment: Consulting Provider: SAW DAVEY Physician Instructions: Reason For Exam: Acute G.I. Bleed 11/08/20 10:49 Consult to Physician [CONS] Routine Comment: Consulting Provider: CASS ACEVEDO Physician Instructions: Reason For Exam: Possible ischemic bowel 11/09/20 14:06 Consult to Dietitian/Nutrition [CONS] Routine Physician Instructions: Reason For Exam: Reason for Consult: Write/Manage TPN/PPN Attending: ALLYSON MORRIS MD - summary Date of admission: 10/23/20 20:00 Date of : 11/17/20 Significant findings: This is a 70-year-old male with hypertension and hypothyroidism who presented to the emergency department on 10/23 with confusion, weakness, exercise intolerance, shortness of breath on exertion, increased bedbound status and decreased oral intake with progressively worsened over the past 2 days prior to presentation. Patient was found to have clinical symptoms consistent with a CVA (neurology consulted, stroke pathway initiated) CHF, bilateral pneumonia, and acute hypoxic respiratory failure. Patient was initiated coronavirus, pneumonia and CHF protocol. Cardiology was consulted in the emergency department. 10/24/2020: Acute CVA with right hemiparesis , PT and OT 10/25/2020: Acute CVA with right hemiplegia, Rehab consult requested, Ejection fraction is 35 to 40% 10/26/2020:patient with acute CVA and right-sided hemiparesis, PT evaluated the patient and recommended acute rehab, Case management processing the request, Possible discharge in 1 to 2 days if stable 10/27/2020: patient is clinically stable, awaiting rehab/SNF placement. DC planning per Case management., Neuro recommend KELLY[possible embolic CVA] follow KELLY 10/28/20: patient is doing slightly better. No new complain. Clinically stable, Patient is going for KELLY today., DC planning to rehab/SNF when cleared by neurology., DC planning per case management 10/29/20: patient is doing slightly better. No new complain. Clinically stable, continue physical therapy occupational therapy, Patient is going for KELLY on Sunday, DC planning to rehab/SNF after KELLY on Sunday, DC planning per case management 10/30/20: patient is sitting in chair. No new complain. Clinically stable, continue physical therapy occupational therapy, Patient is going for KELLY on Sunday, Awaiting DC planning to rehab/SNF after KELLY on Sunday. 10/31/20: patient is seen and examined. No new complain. Clinically stable, co ntinue physical therapy occupational therapy., Patient is going for KELLY on Sunday., Awaiting DC planning to rehab/SNF after KELLY on Sunday. 11/01/20: Patient is seen and examined, Patient with acute CVA and right-sided hemiparesis. Patient is evaluated by PT and recommended acute rehab Patient is going for KELLY today, Patient is waiting for DC planning to rehab/SNF after KELLY. 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 Patient has chosen [facility] and awaiting authorization. 11/02/2020. KELLY revealed left atrial appendage thrombus. Mildly dilated left ventricle with mild left ventricular hypertrophy with moderate global left ventricular hypokinesis with EF of 40 to 45%. Anticoagulation per cardiology recommendations. Physical therapy recommendations for acute rehab. 11/03/2020. Patient appears to have worsening aphasia and worsening right-sided weakness today per neurology. MRI brain stat. Leukocytosis likely leukemoid reaction from compartment syndrome. Patient is s/p right lower extremity thombectomy with 4 compartment fasciotomy yesterday. Bleeding from incisions over night. Consider ID consultation. Start empiric antibiotics. 11/04/2020. Patient decompensated yesterday evening with hypotension and worsening mental status. Patient was started on vasopressors and intubated. Patient is currently intubated and on fentanyl for sedation. Patient with worsening leukocytosis. Lactic acidosis likely secondary to compartment syndrome. Patient is s/p right lower extremity thombectomy with 4 compartment fasciotomy on 11/02/2020. Levaquin started empirically yesterday. ID consultation today. Patient also with worsening creatinine secondary to acute kidney injury. 11/05/2020. Patient attempted to pull out his ETT while I was examining him. Continue restraints for safety. Patient did manage to pull out his Winkler catheter and now has hematuria. We will irrigate the bladder and monitor closely patient is on anticoagulation with IV heparin. Continue Levophed drip to maintain MAP >65. Patient currently with mechanical ventilation AC mode rate of 12, tidal volume 500, FiO2 30% and a PEEP of 6. Continue fentanyl for sedation. Consult hematology hypercoagulable state given the arterial and venous thrombi. 11/06/2020. Hematology ordered argatroban and steroid pulse therapy. Follow work-up to rule out HIT. Follow-up pF4 Ab testing, Hgb electrophoresis, cardiolipin ab. Continue Levophed drip to maintain MAP >65. Patient currently with mechanical ventilation AC mode rate of 12, tidal volume 500, FiO2 30% and a PEEP of 6. Continue fentanyl for sedation. Continue antibiotics of cefepime and vancomycin. Sputum, blood and urine cultures are negative. Continue restraints for safety. 11/07/2020. Continue steroid pulse therapy per hematology recommendations. Argatroban on hold for GI bleeding and hematuria. Follow-up HIT panel and pF4 Ab testing, Hgb electrophoresis, cardiolipin ab. Continue Levophed drip to maintain MAP >65. Patient currently with mechanical ventilation AC mode rate of 12, tidal volume 500, FiO2 30% and a PEEP of 6. Continue fentanyl for sedation. Continue antibiotics of cefepime and vancomycin. Sputum, blood and urine cultures are negative. Continue restraints for safety. 11/08: CT abd/pelvis obtained today is concerning for ischemic bowels, surgery was consulted. This morning patient was on CPAP trial 03/30 at the time my examination patient is on vasopressor support with Levophed and his HIT panel is pending. He was sedated on 1 mcg of fentanyl. Lab work this morning shows leukocytosis, anemia (transfuse 1 unit PRBC), hyperkalemia (received D50 and insulin), hypochloremia and increasing BUN/creatinine. 11/09: S/p ex lap and small bowel resection on 11/08 with surgery, patient was restarted argatroban drip per surgery, HIT panel negative. CCM will start on low-dose heparin drip. Patient was given 2 g of calcium for his K 5 by nephrology. Surgery plans to return to the OR tomorrow for reexploration with possible anastomosis and abdominal closure. At the time of my examination he is sedated on propofol, fentanyl and vasopressor support with Levophed. Patient is on assist control tidal volume 500, rate 18, PEEP of 6, FiO2 25%. 11/10: Patient noted to be anemic today, PRBC transfusion ordered. Patient has 2 units ready for OR, per RN hem/onc is requesting 2 units of PRBC to be transfused. Will obtain post transfusion h/h. Planned for OR today. At the time of my examination he is sedated on propofol, fentanyl and vasopressor support with Levophed. Patient is on assist control tidal volume 500, rate 12, PEEP of 6, FiO2 25%. Pericardial effusion noted as incidental finding with imaging and cardio will conduct a limited echo to quantify amount. 11/11: Patient was taken to the OR for reexploration of abdomen, appendectomy, small bowel anastomosis and surgeon found all viable small and large bowel with well-perfused anastomosis by ICG fluorescence imaging yesterday and a EARNESTINE drain was placed. AM BMP pending, CBC stable. Patient still continues to ooze at fasciotomy site and MLA dressing. RN to change dressings. Sedated with fentanyl and on levophed (RN to attempt to titrate off as tolerated) and on AC TV 500,R12,Peep 6 and 25%FiO2. Remains on heparin gtt. CPAP trial today and LA will be obtained 11/12: Leukocytosis and kidney function tests continue to improve. Patient remains on TPN with NG tube to wall suction. Overnight the patient was agitated and removed NG tube and EARNESTINE drain, NG tube replaced. RN reported patient had a bowel movement late this morning. Patient remains on ventilator support but is on a CPAP trial at time of examination. [facility] plans to extubate today. 11/13: Patient was extubated yesterday. He has hypomagnesemia which was repleted. Patient remains intubated and NG tube to low wall suction. 11/14: Patient has hypokalemia today which has been repleted and his leukocytosis has resolved. Patient remains on a 28% ISR mask with TPN and heparin drip infusing. Patient remains on cefepime and Flagyl. Patient is able to follow simple commands. 11/15: Brief interval summary: Chest x-ray reviewed shows worsening pleural effusion on the right. Patient with tachypnea questionable secondary to the pleural effusion versus overall medical condition. Abdominal sounds remains difficult to elicit. Tense abdomen, with daniel no bleeding noted but nontender no reaction to the patient facial grimace on palpation. Still with cold lower extremity on the right dressing noted some serosanguineous secretions noted. Given his respiratory status I believe that the patient still needs ICU care rather than IMCU as he is at high risk for reintubation. Will recommend BiPAP as patient is still on heparin drip and will need to discuss with pulmonary radiology about possible thoracentesis consider right-sided pleural effusion Per cardiology evaluation patient will continue conservative therapy continue anticoagulation with heparin drip for presumed left atrial appendage thrombus. Patient continues on TPN at this time still some bowel recovery is noted. We will also reach out to vascular to reevaluate lower extremity pulses. We will check labs in a.m. including LFTs. 11/16: Patient currently on BiPAP due to respiratory distress. Still encephalo pathic and appears sedated this could be secondary to Ativan will discontinue at this time and see how patient responds. Vascular input and pulmonary input noted. Continue with wound VAC on the right leg. Will consider changing to oral anticoagulant possible Eliquis per vascular recommendation. At this time the worsening renal function, altered mental status with increased respiratory rate and noted pleural effusion remains a concern WBC is worsening and so is the renal function this could be secondary to Lasix that was given. No fever reported. Will await to see if thoracentesis will be performed and if this will help. Still awaiting Doppler. 11/17: Patient remains altered although awake not following commands remains on BiPAP going on 48 hours now. While ultrasound showed very small pleural effusion chest x-ray again is reporting moderate pleural effusion on the right. Will defer to pulmonary for further evaluation. Patient continues on heparin drip. Surgical reevaluation noted recommend strict n.p.o. at this time and when mental status improves will need speech therapy. We will continue TPN continue to check electrolytes. Patient is mildly hypotensive today this could be secondary to sedating medications and pain control medications but will monitor closely and if needed will give some fluids. Renal function showing some improvement creatinine down to 3.8 today. Nephrology is following. Ongoing IMCU prognosis is still guarded. Right lower extremity is warm which is an improvement from a few days ago. EARLY AFTERNOON, code blue was called on the patient. Please see event note Despite comprehensive ACLS, spontaneous pulse was not returned Patient 12:56pm Family was advised of outcome with our condolence shared. PEA ARREST Sepsis with septic shock Evolving MCA CVA-noted on MRI on 10/23 and 11/03 COVID-19, ruled out #Ischemic limb in setting of arterial thrombus and extensive DVT s/p revascularization sx * (11/02/2020) occlusive arterial thrombus and extensive DVT developed in right lower limb. Vascular surgery performed open revascularization with 4 compartment fasciotomy. 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 Acute hypoxic respiratory failure Acute on chronic systolic heart failure with exacerbation Pneumonia Urinary tract infection Right-sided pleural effusion Acute kidney injury secondary to vasomotor nephropathy Left atrial appendage thrombus Anemia multifactorial s/p 5 units PRBC transfusion Hyperchloremia Hypokalemia Cardiomyopathy Left bundle branch block Hypertension Hypothyroidism
--- NOTE | 2020-11-17 13:17 | XRay Report ---
CHEST 1 VIEW 11/17/2020 12:10 PM INDICATION / CLINICAL INFORMATION: post intubation. COMPARISON: Chest x-ray done earlier on 11/17/2020 FINDINGS: SUPPORT DEVICES: ET tube has been placed with the tip about 3 cm above the uriel. Right IJ central v enous catheter is stable. HEART / MEDIASTINUM: Stable. LUNGS / PLEURA: Interval improvement in bilateral lower lobe atelectasis. No pneumothorax. ADDITIONAL FINDINGS: No significant additional findings. IMPRESSION: 1. Endotracheal tube in expected position. Signer Name: Fab Cali MD Signed: 11/17/2020 1:13 PM Workstation Name: [id number]
--- NOTE | 2020-11-17 14:54 | Electrocardiograph Report ---
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
[2020-11-17] MEDS ORDERED: FAT EMULSIONS 20% 250 ML IV SCH (20:00)
[2020-11-17] MEDS ORDERED: TOTAL PARENTERAL NUTRITION 1,800 ML IV SCH (20:00)
--- NOTE | 2020-11-18 12:06 | Operative Report ---
DATE OF SURGERY: 11/10/2020 ADDENDUM APPENDECTOMY: After the cecum and terminal ileum were mobilized from the lateral attachments, the decision was made to perform an appendectomy. Due to the extensive dissection in this area, this was felt to be necessary. The appendix was mobilized from the cecum and from its lateral attachments using a right angle clamp and electrocautery. A window was made in between the mesoappendix and the appendix at the base using the right angle clamp. The mesoappendix was ligated using a 2-0 silk tie. The base of the appendix was also ligated with a 2-0 silk tie. The appendix was transected just distal to the tie using electrocautery as well as the mesoappendix. The appendix was passed off the table as specimen. The appendiceal stump was imbricated using a 3-0 silk [id number] stitch. The mesoappendix was checked for hemostasis, which was carefully ensured. TID: [id number] RECEIPT: [id number] MALIK/GUS CASTANEDA
== END 2020-11-17 13:15 | DRG 166 ==
LOC: ED 12:23 → 3A 20:00 → CC1 11-02 19:31 → IMCU 11-17 05:00 → CC1 11-17 12:21
PROVIDERS: ADMIT Internal Medicine; ATTEND Internal Medicine
PROC: 5A09357 Assistance with Respiratory Ventilation, Less than 24 Consecutive Hours, Continuous Positive Airway Pressure (ICD-10-PCS; 2020-10-23)
PROC: 5A09357 Assistance with Respiratory Ventilation, Less than 24 Consecutive Hours, Continuous Positive Airway Pressure (ICD-10-PCS; 2020-10-28)
PROC: 5A09357 Assistance with Respiratory Ventilation, Less than 24 Consecutive Hours, Continuous Positive Airway Pressure (ICD-10-PCS; 2020-11-01)
PROC: 04F Lower Arteries, Fragmentation (ICD-10-PCS; principal; 2020-11-02)
PROC: 0KNS0ZZ Release Right Lower Leg Muscle, Open Approach (ICD-10-PCS; 2020-11-02)
PROC: 0KNS0ZZ Release Right Lower Leg Muscle, Open Approach (ICD-10-PCS; 2020-11-02)
PROC: 0KNS0ZZ Release Right Lower Leg Muscle, Open Approach (ICD-10-PCS; 2020-11-02)
PROC: 0KNS0ZZ Release Right Lower Leg Muscle, Open Approach (ICD-10-PCS; 2020-11-02)
PROC: 0BH17EZ Insertion of Endotracheal Airway into Trachea, Via Natural or Artificial Opening (ICD-10-PCS; 2020-11-02)
PROC: 0DT80ZZ Resection of Small Intestine, Open Approach (ICD-10-PCS; 2020-11-02)
PROC: 0BH17EZ Insertion of Endotracheal Airway into Trachea, Via Natural or Artificial Opening (ICD-10-PCS; 2020-11-02)
PROC: 04CK0ZZ Extirpation of Matter from Right Femoral Artery, Open Approach (ICD-10-PCS; 2020-11-02)
PROC: 5A1955Z Respiratory Ventilation, Greater than 96 Consecutive Hours (ICD-10-PCS; 2020-11-03)
PROC: 0DJD0ZZ Inspection of Lower Intestinal Tract, Open Approach (ICD-10-PCS; 2020-11-03)
PROC: 02HV33Z Insertion of Infusion Device into Superior Vena Cava, Percutaneous Approach (ICD-10-PCS; 2020-11-03)
PROC: B548ZZA Ultrasonography of Superior Vena Cava, Guidance (ICD-10-PCS; 2020-11-03)
PROC: 30233N1 Transfusion of Nonautologous Red Blood Cells into Peripheral Vein, Percutaneous Approach (ICD-10-PCS; 2020-11-03)
PROC: 4A033R1 Measurement of Arterial Saturation, Peripheral, Percutaneous Approach (ICD-10-PCS; 2020-11-03)
PROC: 30233N1 Transfusion of Nonautologous Red Blood Cells into Peripheral Vein, Percutaneous Approach (ICD-10-PCS; 2020-11-08)
PROC: 0DJD0ZZ Inspection of Lower Intestinal Tract, Open Approach (ICD-10-PCS; 2020-11-10)
PROC: 0DTJ0ZZ Resection of Appendix, Open Approach (ICD-10-PCS; 2020-11-10)
PROC: 5A09457 Assistance with Respiratory Ventilation, 24-96 Consecutive Hours, Continuous Positive Airway Pressure (ICD-10-PCS; 2020-11-12)
PROC: 5A12012 Performance of Cardiac Output, Single, Manual (ICD-10-PCS; 2020-11-17)
PROC: 5A1935Z Respiratory Ventilation, Less than 24 Consecutive Hours (ICD-10-PCS; 2020-11-17)
DX: J96.01 Acute respiratory failure with hypoxia (principal); I63.9 Cerebral infarction, unspecified; I50.23 Acute on chronic systolic (congestive) heart failure; J18.9 Pneumonia, unspecified organism; A41.9 Sepsis, unspecified organism; G92 Toxic encephalopathy; R65.21 Severe sepsis with septic shock; N17.0 Acute kidney failure with tubular necrosis; K55.019 Acute (reversible) ischemia of small intestine, extent unspecified; T79.A0XA Compartment syndrome, unspecified, initial encounter; E87.2 Acidosis; K92.0 Hematemesis; N39.0 Urinary tract infection, site not specified; G81.91 Hemiplegia, unspecified affecting right dominant side; I42.9 Cardiomyopathy, unspecified; I31.3 Pericardial effusion (noninflammatory); I70.221 Atherosclerosis of native arteries of extremities with rest pain, right leg; Z20.822 Contact with and (suspected) exposure to COVID-19; D64.9 Anemia, unspecified; E87.5 Hyperkalemia; E87.8 Other disorders of electrolyte and fluid balance, not elsewhere classified; D72.829 Elevated white blood cell count, unspecified; R29.713 NIHSS score 13; E03.9 Hypothyroidism, unspecified; I44.7 Left bundle-branch block, unspecified; R79.89 Other specified abnormal findings of blood chemistry; I11.0 Hypertensive heart disease with heart failure; I70.229 Atherosclerosis of native arteries of extremities with rest pain, unspecified extremity; H53.461 Homonymous bilateral field defects, right side; I48.0 Paroxysmal atrial fibrillation; Z79.899 Other long term (current) drug therapy; Z79.891 Long term (current) use of opiate analgesic; Z79.01 Long term (current) use of anticoagulants; Z82.49 Family history of ischemic heart disease and other diseases of the circulatory system; E66.9 Obesity, unspecified; X58.XXXA Exposure to other specified factors, initial encounter; Y93.9 Activity, unspecified; Y92.89 Other specified places as the place of occurrence of the external cause; Y99.8 Other external cause status; K63.89 Other specified diseases of intestine
CPT/HCPCS: 36415; 36600; 70450; 70496; 70498; 70551; 71045; 71046; 71275; 74018; 74019; 74176; 76604; 76770; 80048; 80053; 80061; 80076; 80202; 81001; 82140; 82330; 82565; 82570; 82728; 82805; 82947; 82962; 83615; 83735; 83880; 84100; 84132; 84145; 84165; 84300; 84439; 84443; 84478; 84484; 85007; 85014; 85018; 85025; 85027; 85049; 85379; 85520; 85610; 85730; 86022; 86140; 86147; 86850; 86900; 86901; 86920; 87040; 87070; 87086; 87205; 88302; 88304; 88307; 89050; 93005; 93306; 93308; 93312; 93320; 93321; 93325; 93880; 94002; 94003; 94644; 94660; 96365; 96375; G0378; A9270-GY; C1757; C9113; J0171; J0282; J0330; J0456; J0461; J0610; J0690; J0692; J0696; J0883; J1170; J1250; J1644; J1815; J1940; J2060; J2270; J2370; J2405; J2704; J2710; J2720; J2920; J2930; J3010; J3370; J3480; J3490; J7030; J7040; J7050; J7070; P9016; Q9967; U0003